=== PATIENT | female | born 1950 | race Caucasian/White ===

== ENCOUNTER 2016-08-08 12:51 | Outpatient (RCR) | payer BC ==
--- OUTSIDE RECORDS SUMMARY | 2016-05-27 14:20 | XMS REPORT | Continuity of Care Document ---
Author Author [facility] Organization [facility] Address Unknown Phone Unavailable Care Team Providers Care Ext Js Developer Name Role Phone YaAdolfo brown PCP [phone] Source Comments Some departments are not documenting in the electronic medical record. If you do not see the information that you expected, contact Release of Information in the Health Information Management department at [phone] for further assistance in locating additional records.[facility] Active Allergies and Adverse Reactions No Known Allergies Current Medications Prescription Sig. Disp. Refills Start End Date Status Date zolpidem CR(+) (AMBIEN Take 12.5 mg by mouth at Active CR) 12.5 mg tablet bedtime as needed. gabapentin (NEURONTIN) Take 1,800 mg by mouth Active 600 mg tablet three times daily. magnesium marcella/aluminum Take 1 Tab by mouth at Active hydroxide(+) (GAVISCON) bedtime daily. 20/80 mg chew solifenacin(+) (VESICARE) Take 10 mg by mouth at Active 10 mg tablet bedtime daily. estradiol (ESTRACE) 0.01 Insert or Apply to Active % (0.1 mg/g) vaginal vaginal area as Needed. cream acyclovir (ZOVIRAX) 5 % Apply to affected area Active topical ointment every 2 hours as needed. docusate (COLACE) 100 mg Take 1 Cap by mouth twice 180 Cap 3 01/28/20 Active capsule daily. 16 sucralfate (CARAFATE) 1 Take 1 Tab by mouth three 90 Tab 1 02/02/20 Active gram tablet times daily. 16 metFORMIN (GLUCOPHAGE) Take 1 Tab by mouth twice 60 Tab 1 02/02/20 Active 500 mg tablet daily with meals. 16 simvastatin (ZOCOR) 40 mg Take 1 Tab by mouth at 30 Tab 1 02/02/20 Active tablet bedtime daily. 16 pramipexole (MIRAPEX) Take 1 Tab by mouth twice 60 Tab 1 02/02/20 Active 0.125 mg tablet daily. 16 acyclovir (ZOVIRAX) 200 Take 1 Cap by mouth 30 Cap 1 02/02/20 Active mg capsule daily. 16 hydrochlorothiazide Take 1 Tab by mouth 30 Cap 1 02/02/20 Active (HYDRODIURIL) 25 mg daily. 16 tablet gabapentin (NEURONTIN) TAKE TWO TABLETS BY MOUTH 180 Tab 1 02/12/20 Active 600 mg tablet THREE TIMES A DAY 16 cephalexin (KEFLEX) 500 Take 4 capsules by mouth 20 Cap 3 02/14/20 Active mg capsule one hour before dental 16 procedure. Use remaining capsules for future dental procedures. oxyCODONE (ROXICODONE) 5 Take 1-2 Tabs by mouth 90 Tab 0 02/14/20 Active mg tablet every 4 hours as needed 16 for Pain HYDROcodone/acetaminophen Take 1 Tab by mouth every 90 Tab 0 03/05/20 Active (+) (NORCO) 10/325 mg 6 hours as needed for 16 tablet Pain oxyCODONE/acetaminophen Take 1-2 Tabs by mouth 50 Tab 0 04/10/20 Active (PERCOCET; ENDOCET; every 4 hours as needed 16 ROXICET) 5/325 mg tablet for Pain Earliest Fill Date: 04/10/16 Max 8 tabs/day diazepam (VALIUM) 5 mg Take 1 Tab by mouth every 30 Tab 1 04/10/20 Active tablet 6 hours as needed for 16 Anxiety. fentaNYL (DURAGESIC) 75 Apply 1 Patch to top of Active mcg/hr patch skin as directed every 72 hours oxyCODONE (ROXICODONE, Take 1 Tab by mouth every 50 Tab 0 05/08/20 Active OXY-IR) 5 mg tablet 4 hours as needed for 16 Pain Earliest Fill Date: 05/08/16 Active Problems Problem Noted Date S/P total knee arthroplasty 01/28/2016 Status post total right knee replacement 01/26/2016 Arthritis of knee, right 01/25/2016 Neck mass 05/30/2015 Bloating 05/02/2015 Pain, neuropathic 12/21/2013 S/P hernia repair 11/22/2013 Vocal cord edema 11/09/2013 Hyperfunctional dysphonia 11/09/2013 Laryngopharyngeal reflux 11/09/2013 Dysphagia, pharyngoesophageal phase 11/09/2013 Incisional hernia following transplant 09/21/2013 Dysphonia 01/25/2013 S/P partial thyroidectomy 01/04/2013 Thyroid mass 12/18/2012 Abdominal pain 10/06/2012 Gastritis 10/06/2012 Intestinal bacterial overgrowth 10/06/2012 Most Recent Encounters Date Type Specialty Providers Description 05/24/2016 Hospital Radiology Haresh Kathleen MD Arrived Encounter 05/24/2016 Office Visit Anesthesia Pain Haresh Kathleen MD Lumbar disc disease with radiculopathy (Primary Dx); Lumbar radicular pain 05/24/2016 Telephone Ophthalmology Oscar Pratt MD General Question 05/24/2016 Ancillary Anesthesia Pain Haresh Kathleen MD Lumbar radiculopathy Orders (Primary Dx) 05/24/2016 Ancillary Pain Management Haresh Kathleen MD Orders 05/24/2016 Ancillary Anesthesia Pain George Kathleen MD Lumbar radiculopathy Orders (Primary Dx) 05/24/2016 Ancillary Neurosurgery Benito Guillen MD Orders 05/08/2016 Office Visit Orthopedic Surgery Maricel Albrecht MD Status post total right knee replacement [Z96.651] (Primary Dx) 05/02/2016 [facility] Emergency Medicine David Price MD Encounter Nikhil Cleveland MD 04/10/2016 Office Visit Orthopedic Surgery Maricel Albrecht MD Status post total right knee replacement [Z96.651] (Primary Dx) 04/10/2016 Hospital Radiology Maricel Albrecht MD Encounter 04/04/2016 Orders Only Orthopedic Surgery Maricel Albrecht MD Status post total right knee replacement (Primary Dx) 03/13/2016 Telephone Gastroenterology Kumar Diggs MD Follow-up Phone Call 03/06/2016 Office Visit Orthopedic Surgery Maricel Albrecht MD Status post total right knee replacement [Z96.651] (Primary Dx) 03/06/2016 Hospital Radiology Maricel Albrecht MD Encounter 03/05/2016 Telephone Orthopedic Surgery Tatiana Tim PA-C General Question 02/29/2016 Orders Only Orthopedic Surgery Maricel Albrecht MD Status post total right knee replacement (Primary Dx) Social History Tobacco Use Types Packs/Day Years Used Date Former Smoker Cigarettes 0.25 1 Quit: 05/17/1972 Smokeless Tobacco: Never Used Tobacco Cessation: Counseling Given: Yes Comments: Alcohol Use Drinks/Week oz/Week Comments Yes "one-two drink a month" Last Filed Vital Signs Vital Sign Reading Time Taken Blood Pressure 100/67 05/24/2016 1:12 PM CDT Pulse 73 05/24/2016 10:24 AM CDT Temperature 36.7 C (98.1 F) 05/24/2016 10:24 AM CDT Respiratory Rate 18 05/24/2016 10:24 AM CDT Height 1.676 m (5' 6") 05/24/2016 10:24 AM CDT Weight 92.08 kg (203 lb) 05/24/2016 10:24 AM CDT Body Mass Index 32.78 05/24/2016 10:24 AM CDT Oxygen Saturation 95% 05/24/2016 1:12 PM CDT Plan of Care Date Type Specialty Providers Description 06/07/2016 Appointment Rehabilitation Medicine Letitia Hurt MD [address] [facility] [address] [place] [address] [phone] (Fax) 06/13/2016 Appointment Ophthalmology Oscar Pratt MD [address] [facility] [address] [place] [address] [phone] (Fax) 06/18/2016 Appointment Gastroenterology Kumar Diggs MD [address] [place] [address] [phone] (Fax) 08/14/2016 Appointment Orthopedic Surgery Maricel Albrecht MD [address] [facility] [address] [place] [address] [phone] (Fax) Health Maintenance Due Date Last Done Comments Hepatitis C Screening 1950 Pertussis Vaccine 1963 Tetanus Vaccine 1969 Shingles Vaccine 2012 Physical (Comprehensive) 07/09/2013 07/09/2012 (Previously completed) Exam Breast Cancer Screening 07/09/2014 07/09/2012 (Previously completed) Influenza Vaccine 04/25/2016 12/15/2012 (Declined) Colorectal Cancer 09/27/2025 09/27/2015, 09/27/2015 Screening Results from Last 3 Months FLUORO GUIDANCE FOR SPINE INJ RAD (05/24/2016 12:40 PM) Narrative This order has been auto finalized and does not contain a result. POC GLUCOSE (05/24/2016 12:18 PM) Component Value Range Glucose, POC 118 (H) 70-100 MG/DL US DOPPLER VENOUS W EXTRM RIGHT (05/02/2016 4:53 AM) Addenda Addendum by Tom Napoles MD on 05/02/2016 6:51 AM Finalized by Tom Napoles M.D. on 05/02/2016 5:03 AM. Dictated by Carmela Silva D.O. on 05/02/2016 4:50 AM.Addendum: Clinical history read: 66-year-old female presents to the emergency room with right lower extremity pain following knee replacement Approved by Carmela Silva D.O. on 05/02/2016 6:47 AM By my electronic signature, I attest that I have personally reviewed the images for this examination and formulated the interpretations and opinions expressed in this report Finalized by Tom Napoles M.D. on 05/02/2016 6:48 AM. Dictated by Carmela Silva D.O. on 05/02/2016 6:46 AM. Impressions No evidence of deep vein thrombosis in the right lower extremity. By my electronic signature, I attest that I have personally reviewed the images for this examination and formulated the interpretations and opinions expressed in this report Narrative Ultrasound Doppler of right lower extremity. HISTORY: TECHNIQUE: Multiple real-time grayscale sonographic images were obtained throughout the right lower extremity with additional color Doppler and duplex acquisitions to examine the deep venous systems. COMPARISON: No prior studies are available for comparison. FINDINGS: The right common femoral, femoral, saphenous, popliteal, and deep veins of the right lower extremity are widely patent, demonstrating normal compression on grayscale imaging, no filling defect on color Doppler imaging, and normal response to augmentation. There is no mass or fluid collection visualizedwithin the right lower extremity. Procedure Note Interface, Radiant Results - Rin May 02, 2016 6:51 AM CDT Ultrasound Doppler of right lower extremity. HISTORY: TECHNIQUE: Multiple real-time grayscale sonographic images were obtained throughout the right lower extremity with additional color Doppler and duplex acquisitions to examine the deep venous systems. COMPARISON: No prior studies are available for comparison. FINDINGS: The right common femoral, femoral, saphenous, popliteal, and deep veins of the right lower extremity are widely patent, demonstrating normal compression on grayscale imaging, no filling defect on color Doppler imaging, and normal response to augmentation. There is no mass or fluid collection visualized within the right lower extremity. IMPRESSION No evidence of deep vein thrombosis in the right lower extremity. By my electronic signature, I attest that I have personally reviewed the images for this examination and formulated the interpretations and opinions expressed in this report KNEE 3 VIEWS RIGHT (05/02/2016 3:10 AM)Only the most recent of 3 results within the time period is included. Impressions 1. Right total knee arthroplasty without periprosthetic fracture. 2. Mildly improved persistent small joint effusion. Approved by Carmela Silva D.O. on 05/02/2016 7:41 AM By my electronic signature, I attest that I have personally reviewed the images for this examination and formulated the interpretations and opinions expressed in this report Finalized by CHRISTOPHER KABA M.D. on 05/02/2016 9:52 AM. Dictated by Carmela Silva D.O. on 05/02/2016 6:50 AM. Narrative Right knee, four views Clinical history: 66-year-old female presents to the emergency room with right knee replacement and severe right knee pain Comparisons made to prior radiograph dated Apr 10, 2016 Findings: Satisfactory alignment of right total hip arthroplasty without evidence of periprosthetic fracture or hardware loosening. Resurfacing of the patella is noted with radiodense fragmentation of the superior pole, unchanged over multiple prior exams. No significant soft tissue swelling. There is a persistent , yet mildly improved, small suprapatellar joint effusion. Procedure Note Interface, Radiant Results - Rin May 02, 2016 9:55 AM CDT Right knee, four views Clinical history: 66-year-old female presents to the emergency room with right knee replacement and severe right knee pain Comparisons made to prior radiograph dated Apr 10, 2016 Findings: Satisfactory alignment of right total hip arthroplasty without evidence of periprosthetic fracture or hardware loosening. Resurfacing of the patella is noted with radiodense fragmentation of the superior pole, unchanged over multiple prior exams. No significant soft tissue swelling. There is a persistent , yet mildly improved, small suprapatellar joint effusion. IMPRESSION 1. Right total knee arthroplasty without periprosthetic fracture. 2. Mildly improved persistent small joint effusion. Approved by Carmela Silva D.O. on 05/02/2016 7:41 AM By my electronic signature, I attest that I have personally reviewed the images for this examination and formulated the interpretations and opinions expressed in this report Finalized by CHRISTOPHER KABA M.D. on 05/02/2016 9:52 AM. Dictated by Carmela Silva D.O. on 05/02/2016 6:50 AM. SED RATE (05/02/2016 3:01 AM) Component Value Range Sed Rate -ESR 10 0-30 MM/HR C REACTIVE PROTEIN (CRP) (05/02/2016 2:16 AM) Component Value Range C-Reactive Protein 0.58 <1.0 MG/DL Specimen Blood COMPREHENSIVE METABOLIC PANEL (05/02/2016 2:16 AM) Component Value Range Sodium 138 137-147 MMOL/L Potassium 3.8 3.5-5.1 MMOL/L Chloride 104 98-110 MMOL/L Glucose 116 (H) 70-100 MG/DL Blood Urea Nitrogen 15 7-25 MG/DL Creatinine 0.73 0.4-1.00 MG/DL Calcium 9.9 8.5-10.6 MG/DL Total Protein 6.9 6.0-8.0 G/DL Total Bilirubin 0.7 0.3-1.2 MG/DL Albumin 4.1 3.5-5.0 G/DL Alk Phosphatase 86 25-110 U/L AST (SGOT) 19 7-40 U/L CO2 22 21-30 MMOL/L ALT (SGPT) 16 7-56 U/L Anion Gap 12 3-12 eGFR Non >60Comment: >60 mL/min The eGFR is not validated for use in drug dosing adjustments. Continue to use estimated creatinine clearance per dosing reference text. Please contact the Clinical Pharmacist for questions. eGFR >60Comment: >60 mL/min The eGFR is not validated for use in drug dosing adjustments. Continue to use estimated creatinine clearance per dosing reference text. Please contact the Clinical Pharmacist for questions. Specimen Blood CBC AND DIFF (05/02/2016 2:16 AM) Component Value Range White Blood Cells 9.7 4.5-11.0 K/UL RBC 5.15 (H) 4.0-5.0 M/UL Hemoglobin 12.6 12.0-15.0 GM/DL Hematocrit 40.1 36-45 % MCV 77.9 (L) 80-100 FL MCH 24.4 (L) 26-34 PG MCHC 31.4 (L) 32.0-36.0 G/DL RDW 16.9 (H) 11-15 % Platelet Count 239 150-400 K/UL MPV 9.4 7-11 FL Neutrophils 59 41-77 % Lymphocytes 31 24-44 % Monocytes 6 4-12 % Eosinophils 3 0-5 % Basophils 1 0-2 % Absolute Neutrophil Count 5.80 1.8-7.0 K/UL Absolute Lymph Count 3.00 1.0-4.8 K/UL Absolute Monocyte Count 0.60 0-0.80 K/UL Absolute Eosinophil Count 0.30 0-0.45 K/UL Absolute Basophil Count 0.10 0-0.20 K/UL Specimen Blood
[~2016-08-08 12:51] MED LIST: ACC200C PO; ACYC-108 PO; ACYC200C PO; ACYC5CRE2 TOP; ALPR1TAB7 PO; ASPI325T32 PO; BENZ28CR TP; BISA5TAB8 PO; CIPR250T3 PO; CIPR500S2 PO; CITA20TA4 PO; CLAR-19 PO; CYCL1DRO OU; DCS100C PO; DICY20TA57 PO; DIFL5DRO OU; DIPH50CA33 PO; DULO30CA PO; ELUX100T PO; ESOM40CA52 PO; ESTR42.52 VG; FAMO-119 PO; FAMO20TA13 PO; FENT1PAT11 TD; FNT100TD TD; FNT75TD TD; GABA600T2 PO; HCT25T PO; HDR2A IV; HDR4T PO; HYDR-2890 PO; HYDR-3820 PO; HYDR25TA4 PO; HYDR4TAB PO; LANS30CA PO; LD5PT TOP; LEVO750T24 PO; LINA145C PO; LINA290C PO; LIPA1CAP PO; LNS30CCR PO; LORA0.5T PO; MAGN296S PO; MELO-195 PO; METF500T4 PO; METF500T8 PO; METH750T3 PO; METR500T21 PO; MG T1TAB2 PO; MINE3.5O4 OU; MTF500T PO; MTP50T PO; NF-DURA12P TD; ONDA4TAB11 PO; ONDA8TAB6 PO; ONDN4T PO; OXYC-464 PO; OXYC-465 PO; PANT40TA PO; PANT40TA3 PO; PNT40TEC PO; POLY119P5 PO; POLY17PO23 PO; PRAM0.128 PO; RIFA550T3 PO; SENN1TAB76 PO; SENN8.6T80 PO; SIMV40TA4 PO; SOLI10TA2 PO; SOLI5TAB4 PO; SUCR1TAB PO; TEMA30CA PO; TEMA7.5C PO; ZLP10T PO; ZLP5T PO; ZOLP10TA5 PO; ZOLP12.5 PO; ZOLP12.546 PO; [UNRECOGNIZED DRUG - CODE] MT; linaclotide PO
== END 2016-08-25 | disposition home or self-care (01) ==
PROVIDERS: ATTEND Orthopaedic Surgery
DX: Z47.1 Aftercare following joint replacement surgery (principal); Z96.651 Presence of right artificial knee joint

== ENCOUNTER → 2016-12-27 | Outpatient (CLI) | payer OTHER | LOC: RAD 15:30 | PROVIDERS: ATTEND Nurse Practitioner Family | DX: M25.561 Pain in right knee (principal) ==

== ENCOUNTER → 2016-12-30 | Outpatient (CLI) | payer OTHER ==
--- NOTE | 2016-12-30 15:01 | Diagnostic Imaging Report ---
EXAMINATION: Ultrasound of the right lower extremity in the right knee region. INDICATION: Lateral knee pain after total knee replacement performed one year prior to this exam. FINDINGS: The area of pain was scanned with no specific abnormality identified. No fluid collection is seen. IMPRESSION: No definite abnormality. Dictated by: Dictated on workstation # [id number]
== END ==
LOC: RAD 14:02
PROVIDERS: ATTEND Family Medicine
DX: M25.561 Pain in right knee (principal); G89.29 Other chronic pain
CPT/HCPCS: 76881

== ENCOUNTER 2017-01-22 11:26 | Outpatient (RCR) | payer OTHER ==
[2017-05-03] MEDS ORDERED: HYDR-3812 PO (13:25)
[2017-05-03] MEDS ORDERED: AMOX500T2 PO (13:25)
[2017-05-03] MEDS ORDERED: ONDA4TAB8 PO (13:25)
== END 2017-02-26 14:59 | disposition home or self-care (01) ==
PROVIDERS: ATTEND Specialist
DX: F44.4 Conversion disorder with motor symptom or deficit (principal)

== ENCOUNTER 2017-03-05 10:04 | Outpatient (RCR) | payer OTHER | END 2017-04-01 08:58 | disposition home or self-care (01) | PROVIDERS: ATTEND Orthopaedic Surgery | DX: M25.561 Pain in right knee (principal); Z96.651 Presence of right artificial knee joint; E11.9 Type 2 diabetes mellitus without complications ==

== ENCOUNTER → 2017-03-28 | Outpatient (CLI) | payer OTHER | LOC: LAB 19:27 | PROVIDERS: ATTEND Nurse Practitioner Family | DX: N30.01 Acute cystitis with hematuria (principal) | CPT/HCPCS: 87088 ==

== ENCOUNTER 2017-05-08 10:28 | Outpatient (RCR) | payer MEDICARE, OTHER ==
[~2017-05-08 10:28] MED LIST changes: +AMOX500T2 PO; +HYDR-3812 PO; +ONDA4TAB8 PO
== END 2017-05-24 | disposition home or self-care (01) ==
PROVIDERS: ATTEND Family Medicine
DX: Z96.651 Presence of right artificial knee joint; Z47.1 Aftercare following joint replacement surgery

== ENCOUNTER 2017-09-10 11:14 | Outpatient (RCR) | payer MEDICARE, OTHER ==
[~2017-09-10 11:14] MED LIST changes: +ACHD5005 PO; -HYDR-3812 PO
== END 2017-10-08 15:33 | disposition home or self-care (01) ==
PROVIDERS: ATTEND Urology
DX: R33.9 Retention of urine, unspecified (principal)

== ENCOUNTER → 2018-02-10 | Outpatient (CLI) | payer MEDICARE, OTHER ==
[~2018-02-10] MED LIST changes: -METF500T4 PO; +METF500T5 PO
--- NOTE | 2018-02-10 16:11 | Diagnostic Imaging Report ---
PROCEDURE: CT neck soft tissue without contrast. TECHNIQUE: Multiple contiguous axial images were obtained through the neck without the use of intravenous contrast. INDICATION: Shortness of air, difficulty swallowing and hoarseness. COMPARISON: No prior studies are available for comparison. FINDINGS: The visualized intracranial structures are unremarkable. Posterior nasopharynx and oropharynx are unremarkable. Parapharyngeal fat planes are preserved. The larynx is unremarkable. Left thyroid lobe appears to be surgically absent. Right thyroid lobe is unremarkable. No discrete mass is seen. The submandibular and parotid glands appear to be symmetric bilaterally. No definite cervical chain lymphadenopathy is seen. Visualized paranasal sinuses are clear. IMPRESSION: Unremarkable noncontrast CT of the soft tissues of the neck. No neck mass, fluid collection or lymphadenopathy is detected. Dictated by: Dictated on workstation # [id number]
--- NOTE | 2018-02-10 17:38 | Diagnostic Imaging Report ---
PROCEDURE: CT right lower extremity without contrast. TECHNIQUE: Axially acquired CT was obtained through the right lower extremity without intravenous contrast. Coronal and sagittal reformations were also performed. INDICATION: Right knee replacement in January 2015. Patient complains of pain and swelling to the right knee. FINDINGS: There are postop changes of right total knee arthroplasty. The prosthetic elements do produce significant beam hardening artifact, limiting evaluation. No definite fracture or loosening of the hardware is seen. Bony structures are intact. There is a moderate suprapatellar joint effusion detected. IMPRESSION: Joint effusion. Otherwise, unremarkable CT of the post-arthroplasty right knee. Dictated by: Dictated on workstation # [id number]
== END ==
LOC: RAD 02-09 08:28
PROVIDERS: ATTEND Family Medicine
DX: T84.89XA Other specified complication of internal orthopedic prosthetic devices, implants and grafts, initial encounter (principal); G47.37 Central sleep apnea in conditions classified elsewhere; R49.0 Dysphonia; R06.02 Shortness of breath; R13.10 Dysphagia, unspecified
CPT/HCPCS: 70490; 73700

== ENCOUNTER → 2018-02-26 | Outpatient (CLI) | payer MEDICARE, OTHER ==
[~2018-02-26] MED LIST changes: +INHA1INH59 MC; +RT-ALBUINH IH
--- NOTE | 2018-02-26 17:54 | Diagnostic Imaging Report ---
INDICATION: Cough and shortness of breath. COMPARISON: 02/11/2014. TECHNIQUE: Two views of the chest were obtained. FINDINGS: There is an old retained pacemaker lead in stable position. Lungs are clear. No pleural effusion or pneumothorax. Mild cardiomegaly is unchanged. Normal pulmonary vasculature. IMPRESSION: No acute cardiopulmonary process. Dictated by: Dictated on workstation # [id number]
== END ==
LOC: RAD 17:40
PROVIDERS: ATTEND Nurse Practitioner Family
DX: J20.9 Acute bronchitis, unspecified (principal)
CPT/HCPCS: 71046

== ENCOUNTER 2018-03-20 18:15 | Emergency (ER) | payer MEDICARE, OTHER ==
[~2018-03-20] VITALS: Ht 167.6 cm; Wt 101.6 kg
[~2018-03-20 18:15] MED LIST changes: -INHA1INH59 MC; -RT-ALBUINH IH
--- NOTE | 2018-03-20 18:53 | ED Respiratory ---
General Chief Complaint: Respiratory Problems Stated Complaint: SOB Nursing Triage Note: PATIENT STATES THAT SHE HAS BEEN SHORT OF BREATH FOR MONTHS. SOMETIMES SHE WHEEZES AND SOMETIMES SHE DOESNT. SHE HAS HAD TROUBLE GETTING AN APPT WITH A PRACTICE MANAGER IN [place] AND IS CURRENTLY NOT SCHEDULED UNTIL LATE MAY. SHE WEARS A CPAP AT HOME FOR SLEEP APNEA. OXYGEN SAT IS 97% ON ROOM AIR. Source: patient, spouse Exam Limitations: no limitations History of Present Illness Date Seen by Provider: Mar 20, 2018 Time Seen by Provider: 18:40 Initial Comments The patient presents to the ER by private conveyance with a chief complaint that she is having a worsening episode of her shortness of breath and wheezing. She denies any history of emphysema, asthma, sarcoidosis, lupus, interstitial pulmonary fibrosis etc. She's never smoked nor she exposed to passive smoke exposure. She says this started sometime in October and so she went to see the ER at and they told her to get set up to follow up with a inspector final assembly electrical. She called Dr. Cardenas's office and he set her up with a referral to pulmonology at June 17. The patient is not on any breathing treatments nor has she been on any steroids or antibiotics. She says she did have an x-ray done this morning as preop for an epidural back injection for her chronic back pain. She' s not having any cough, fevers, chills or rash. Allergies and Home Medications Allergies Coded Allergies: No Known Drug Allergies (Unverified , 02/11/14) Home Medications Acyclovir 5 Gm Cream.gm., TOP Q4H PRN for FEVER BLISTER, (Reported) Alprazolam 1 Mg Tablet, 1 MG PO HS, (Reported) Amoxicillin 500 Mg Tablet, 500 MG PO QID, (Reported) Aspirin 325 Mg Tablet.dr, 325 MG PO HS, (Reported) Cyclosporine 1 Each Droperette, 1 DROP OU BID, (Reported) Estradiol 42.5 Gm Cream.appl, 1 APPLIC VG DAILY PRN for DISCOMFORT, (Reported) Fentanyl 1 Each Patch.td72, 100 MCG TD Q72H Prescribed by: SERENA CARDENAS on 04/03/16 0723 Gabapentin 600 Mg Tablet, 1,800 MG PO BID, (Reported) TAKES 3 (600MG) TABLETS Hydrocodone Bit/Acetaminophen 1 Each Tablet, 1 EACH PO Q4H PRN for PAIN, ( Reported) Metformin HCl 500 Mg Tablet, 500 MG PO BID, (Reported) Mineral Oil/Petrolatum,White 3.5 Gm Oint...g., OU HS, (Reported) Ondansetron 4 Mg Tab.rapdis, 4-8 MG PO Q8H PRN for NAUSEA/VOMITING-1ST LINE, ( Reported) Oxycodone HCl/Acetaminophen 1 Each Tablet, 1 EACH PO BID Prescribed by: SERENA CARDENAS on 04/03/16 0724 Polyethylene Glycol 3350 119 Gm Powder, 17 GM PO DAILY PRN for CONSTIPATION, ( Reported) Pramipexole Di-HCl 0.125 Mg Tablet, 0.125 MG PO 1599,1999, (Reported) Simvastatin 40 Mg Tablet, 40 MG PO HS, (Reported) Solifenacin Succinate 10 Mg Tablet, 10 MG PO HS, (Reported) Sucralfate 1 Gm Tablet, 1 GM PO BID, (Reported) Zolpidem Tartrate 12.5 Mg Tab.mphase, 12.5 MG PO HS, (Reported) Patient Home Medication List Home Medication List Reviewed: Yes Review of Systems Constitutional: No chills, No fever, No malaise EENTM: No ear discharge, No ear pain Respiratory: No cough, No hemoptysis, No orthopnea, No phlegm; short of breath , wheezing Cardiovascular: No chest pain, No palpitations, No syncope Gastrointestinal: No abdominal pain, No constipation Genitourinary: No discharge, No dysuria : No Musculoskeletal: No back pain, No joint pain Skin: No pruritus, No rash Psychiatric/Neurological: Denies Headache, Denies Numbness Past Hqjynxj-Hkofru-Laxlez Hx Patient Social History Alcohol Use: Denies Use Recreational Drug Use: No Smoking Status: Former Smoker 2nd Hand Smoke Exposure: No Recent Foreign Travel: No Contact w/Someone Who Travel: No Recent Infectious Disease Expo: No Recent Hopitalizations: Yes (january 24 right knee replacement) Physical Abuse: No Sexual Abuse: No Immunizations Up To Date Tetanus Booster (TDap): More than 5yrs Date of Pneumonia Vaccine: Oct 04, 2011 Date of Influenza Vaccine: Jul 06, 2013 Seasonal Allergies Seasonal Allergies: No Past Medical History Surgeries: Yes (CHIARI MALFORMATION REPAIR. EGD'S AND COLONOSCOPIES--LAST ONES 1 MONTH AGO.) Abdominal Respiratory: Yes Pneumonia Cardiac: Yes Neurological: Yes (CHIARI MALFORMATION surgically fixed) Reproductive Disorders: No Female Reproductive Disorders: Denies Sexually Transmitted Disease: No HIV/AIDS: No Gastrointestinal: Yes ("COMPLETE ABD RECONSTRUCTION" 2010. CHRONIC ABDOMINAL PAIN) Chronic Constipation, Chronic Diarrhea Musculoskeletal: Yes (CHRONIC GENERALIZED PAIN--NARCOTIC DEPENDENT) Arthritis, Chronic Back Pain Endocrine: Yes (MASS LT THYROID REMOVED 01/01/2013) Cancer: No Psychosocial: No Nursing Suicide Risk Score: 0 Integumentary: No Blood Disorders: No Adverse Reaction/Blood Tranf: No Family Medical History Cancer 03 FATHER (PANCREATIC, PASSED AT 65 FROM THIS) Cataract 03 MOTHER Dementia 03 MOTHER Family history: Arthritis 03 MOTHER Family history: Cardiovascular disease 03 MOTHER (HIGH CHOLESTEROL, BALOON ARTERIES 2 TIMES) Hearing loss 03 MOTHER Hypercholesterolemia 03 MOTHER Cancer Physical Exam Vital Signs - First Documented 03/20/18 03/20/18 18:18 18:59 Temp 98.3 Pulse 87 Resp 24 B/P (MAP) 166/90 (115) Pulse Ox 96 O2 Delivery Room Air Capillary Refill : Less Than 3 Seconds Height: 5'6.00" Weight: 224lbs. 0oz. 101.873765jx; 34.7 BMI Method:Stated General Appearance: WD/WN, mild distress Eyes: Bilateral Eye Normal Inspection, Bilateral Eye PERRL, Bilateral Eye EOMI HEENT: PERRL/EOMI, normal ENT inspection, pharynx normal Neck: non-tender, normal inspection Respiratory: chest non-tender, no accessory muscle use, respiratory distress ( mild), wheezing, expiration Cardiovascular: normal peripheral pulses, regular rate, rhythm, no edema Gastrointestinal: non tender, soft Extremities: normal range of motion, no pedal edema, no calf tenderness, normal capillary refill Neurologic/Psychiatric: alert, normal mood/affect, oriented x 3 Skin: normal color, warm/dry Progress/Results/Core Measures Suspected Sepsis Recent Fever Within 48 Hours: No Infection Criteria Present: Suspected New Infection New/Unexplained Altered Menta: No Sepsis Screen: No Definite Risk SIRS Temperature:98.3 Pulse: 87 Respiratory Rate: 24 Laboratory Tests 03/20/18 19:18: White Blood Count 8.3 Blood Pressure 166 /90 Mean: 115 Laboratory Tests 03/20/18 19:18: Creatinine 0.90, Platelet Count 178, Total Bilirubin 0.8 Results/Orders Lab Results Laboratory Tests Test 03/20/18 19:18 Range/Units White Blood Count 8.3 4.3-11.0 10^3/uL Red Blood Count 4.57 4.35-5.85 10^6/uL Hemoglobin 11.4 L 11.5-16.0 G/DL Hematocrit 36 35-52 % Mean Corpuscular Volume 79 L 80-99 FL Mean Corpuscular Hemoglobin 25 25-34 PG Mean Corpuscular Hemoglobin Concent 32 32-36 G/DL Red Cell Distribution Width 16.8 H 10.0-14.5 % Platelet Count 178 130-400 10^3/uL Mean Platelet Volume 10.6 H 7.4-10.4 FL Neutrophils (%) (Auto) 58 42-75 % Lymphocytes (%) (Auto) 35 12-44 % Monocytes (%) (Auto) 5 0-12 % Eosinophils (%) (Auto) 2 0-10 % Basophils (%) (Auto) 0 0-10 % Neutrophils # (Auto) 4.8 1.8-7.8 X 10^3 Lymphocytes # (Auto) 2.9 1.0-4.0 X 10^3 Monocytes # (Auto) 0.4 0.0-1.0 X 10^3 Eosinophils # (Auto) 0.2 0.0-0.3 10^3/uL Basophils # (Auto) 0.0 0.0-0.1 10^3/uL D-Dimer 0.92 H 0.00-0.49 UG/ML Sodium Level 140 135-145 MMOL/L Potassium Level 4.4 3.6-5.0 MMOL/L Chloride Level 105 98-107 MMOL/L Carbon Dioxide Level 25 21-32 MMOL/L Anion Gap 10 5-14 MMOL/L Blood Urea Nitrogen 11 7-18 MG/DL Creatinine 0.90 0.60-1.30 MG/DL Estimat Glomerular Filtration Rate > 60 BUN/Creatinine Ratio 12 Glucose Level 200 H 70-105 MG/DL Calcium Level 9.4 8.5-10.1 MG/DL Total Bilirubin 0.8 0.1-1.0 MG/DL Aspartate Amino Transf (AST/SGOT) 21 5-34 U/L Alanine Aminotransferase (ALT/SGPT) 20 0-55 U/L Alkaline Phosphatase 86 40-136 U/L C-Reactive Protein High Sensitivity 2.39 H 0.00-0.50 MG/DL B-Type Natriuretic Peptide 26.9 <100.0 PG/ML Total Protein 5.6 L 6.4-8.2 GM/DL Albumin 3.6 3.2-4.5 GM/DL My Orders Orders - GABBIE AZUL Albuterol/Ipra Inhalation Soln (Duoneb I (03/20/18 19:00) Svn Small Volume Nebulizer (03/20/18 18:46) Chest Pa/Lat (2 View) (03/20/18 18:55) BNP (03/20/18 18:55) Cbc With Automated Diff (03/20/18 18:55) Comprehensive Metabolic Panel (03/20/18 18:55) Hs C Reactive Protein (03/20/18 18:55) Fibrin Degradation Products (03/20/18 18:55) Ct Angio Chest W (03/20/18 20:07) Saline Lock/Iv-Start (03/20/18 20:07) Ns Iv 1000 Ml (Sodium Chloride 0.9%) (03/20/18 20:07) Iohexol Injection (Omnipaque 350 Mg/Ml 1 (03/20/18 20:45) Sodium Chloride Flush (Catheter Flush Sy (03/20/18 20:45) Ns (Ivpb) (Sodium Chloride 0.9%) (03/20/18 20:45) Pharmacy Communication (Pharmacy Communi (03/20/18 20:34) Medications Given in ED Current Medications Medications Dose Ordered Sig/Leoise Route Start Time Stop Time Status Last Admin Dose Admin Albuterol/ Ipratropium 3 ml ONCE ONCE INH 03/20/18 19:00 03/20/18 19:01 DC 03/20/18 18:59 3 ML Iohexol 150 ml ONCE ONCE IV 03/20/18 20:45 03/20/18 20:46 DC 03/20/18 20:36 125 ML Sodium Chloride 10 ml NEEDED PRN IV 03/20/18 20:45 03/20/18 20:36 10 ML Sodium Chloride 250 ml ONCE ONCE IV 03/20/18 20:45 03/20/18 20:46 DC 03/20/18 20:36 80 ML Vital Signs/I&O 03/20/18 03/20/18 18:18 18:59 Temp 98.3 Pulse 87 Resp 24 B/P (MAP) 166/90 (115) Pulse Ox 96 O2 Delivery Room Air Capillary Refill : Less Than 3 Seconds Blood Pressure Mean: 115 Progress Note #1: Time: 18:53 Progress Note Patient has had MRI of her lumbar spine but no chest x-ray but I can see today. She did have a chest x-ray on February 26. We are going to repeat that as well as some basic labs. Since she's been laying in bed for the better part of the last 4 months I think would also be harkins to obtain a d-dimer for her mild to moderate risk of PE. She is not really having any chest pain and circling no productive cough so pneumonia seems fairly unlikely. Chest x-ray and some labs and help us rule out out. We'll give her breathing treatment as well. Progress Note #2: Time: 20:08 Progress Note The patient's wheezing as well as subjective breathing has improved after the breathing treatment however she says she's not completely feeling herself again yet. Her d-dimer is elevated at 0.9. We discussed the risks, benefits and alternatives to doing a CT angiogram and the reason why we direct given her 4 month history of laying in bed with shortness of breath. Pulmonary embolism is not high likelihood that could only be ruled out with CT angiogram tonight. She has consented to go ahead and get the test done. We'll give her a liter of saline and make sure she goes home with an albuterol inhaler. She is concerned because she like to get in with a inspector final assembly electrical sooner so we have encouraged her to talk to Dr. Cardenas, [facility] or care physician and see if she can get in with a different inspector final assembly electrical sooner. Diagnostic Imaging Diagonstic Imaging: Xray Plain Films/CT/US/NM/MRI: chest (2v) Comments NAME: ANA LUJAN MED REC#: [id number] PHYSICIAN: GABBIE AZUL MD CC: JACKIE HOOK; GABBIE AZUL Page 1 of 1 RADIOLOGY REPORT VIA [facility], [facility]. [place], [place] CC: JACKIE HOOK; GABBIE AZUL Page 1 of 1 RADIOLOGY REPORT NAME: ANA LUJAN MED REC#: [id number] PT STATUS: REG ER : 1950 PHYSICIAN: GABBIE AZUL MD ADMIT DATE: 03/20/18/ER Signed Date of Exam: 03/20/18 CHEST PA/LAT (2 VIEW) INDICATION: Wheezing, shortness of breath. COMPARISON: 02/26/18 FINDINGS: Single view of the chest demonstrates stable cardiac enlargement. The lungs are otherwise clear. Groshong catheter stable. There is no pneumothorax or effusion. Osseous structures are age-appropriate. IMPRESSION: Stable cardiac enlargement without pulmonary edema or infiltrate. Dictated by: Dictated on workstation # [id number] Dict: 03/20/181928 Trans: 03/20/181932 Interpreted by: JACKIE HOOK Electronically signed by: JACKIE HOOK 03/20/181932 Reviewed: Reviewed by Me Diagonstic Imaging: CT (angio) Plain Films/CT/US/NM/MRI: chest Comments NAME: TAI[facility]ACOBOANA [facility] REC#: [id number] PHYSICIAN: GABBIE AZUL MD CC: JACKIE HOOK; GABBIE AZUL Page 1 of 1 RADIOLOGY REPORT VIA [facility], [facility]. [place], [place] CC: JACKIE HOOK; GABBIE AZUL Page 1 of 1 RADIOLOGY REPORT NAME: TAIANA [facility] REC#: [id number] PT STATUS: REG ER : 1950 PHYSICIAN: GABBIE AZUL MD ADMIT DATE: 03/20/18/ER Signed Date of Exam: 03/20/18 CT ANGIO CHEST W PROCEDURE: CT angiography of the chest with contrast. TECHNIQUE: Multiple contiguous axial images were obtained through the chest after uneventful bolus administration of intravenous contrast. Reconstructed CTA MIP acquisitions were also performed. INDICATION: Shortness of breath COMPARISON: None FINDINGS: The heart size is normal. There is coronary artery disease present. There is no pericardial effusion. No lymphadenopathy is seen. Course and caliber of the aorta is normal. Pulmonary arteries are grossly unremarkable. There is no embolism. Lungs are clear. Osseous structures and visualized upper abdominal solid organs are normal. IMPRESSION: 1. No pulmonary embolism identified 2. Coronary artery disease. Dictated by: Dictated on workstation # [id number] Dict: 03/20/182044 Trans: 03/20/182049 Interpreted by: JACKIE HOOK Electronically signed by: JACKIE HOOK 03/20/182049 Reviewed: Reviewed by Me Departure Impression Primary Impression: Chronic bronchitis with acute exacerbation Disposition: HOME, SELF-CARE Condition: Improved Departure-Patient Inst. Decision time for Depature: 21:05 Referrals: KATHLEEN CARDENAS MD (PCP/Family) Primary Care Physician Patient Instructions: Chronic Bronchitis (DC) Add. Discharge Instructions: Keep your follow-up appointment with the inspector final assembly electrical. 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 All discharge instructions reviewed with patient and/or family. Voiced understanding. Scripts Inhaler, Assist Devices (E-Z Spacer) 1 Each Spacer EACH MC Q4H PRN for WHEEZING, #1 0 Refills Prov: GABBIE AZUL 03/20/18 Albuterol Sulfate (PROAIR HFA) 1 Puff Puff 2 PUFF IH Q4H PRN for DYSPNEA for 30 Days, #1 EACH 0 Refills 1 PUFF = 90 MCG Prov: GABBIE AZUL 03/20/18 GABBIE AZUL Mar 20, 2018 18:53
[2018-03-20] MEDS ORDERED: RT-ALBUTEROL/IPRATROPIUM 3 ML (DUONEB) VIAL INH ONE (19:00)
[2018-03-20 19:24] LABS: BASOPHILS % (AUTO) 0 % (0-10); EOSINOPHILS # (AUTO) 0.2 10^3/uL (0.0-0.3); EOSINOPHILS % (AUTO) 2 % (0-10); HEMATOCRIT 36 % (35-52); HEMOGLOBIN 11.4 G/DL (11.5-16.0); LYMPHOCYTES # (AUTO) 2.9 X 10^3 (1.0-4.0); LYMPHOCYTES % (AUTO) 35 % (12-44); MEAN CORPUSCULAR HEMOGLOBIN 25 PG (25-34); MEAN CORPUSCULAR HGB CONC 32 G/DL (32-36); MEAN CORPUSCULAR VOLUME 79 FL (80-99); MEAN PLATELET VOLUME 10.6 FL (7.4-10.4); MONOCYTES # (AUTO) 0.4 X 10^3 (0.0-1.0); MONOCYTES % (AUTO) 5 % (0-12); NEUTROPHILS # (AUTO) 4.8 X 10^3 (1.8-7.8); NEUTROPHILS % (AUTO) 58 % (42-75); PLATELET COUNT 178 10^3/uL (130-400); RED BLOOD COUNT 4.57 10^6/uL (4.35-5.85); RED CELL DISTRIBUTION WIDTH 16.8 % (10.0-14.5); WHITE BLOOD COUNT 8.3 10^3/uL (4.3-11.0)
--- NOTE | 2018-03-20 19:32 | Diagnostic Imaging Report ---
INDICATION: Wheezing, shortness of breath. COMPARISON: 02/26/18 FINDINGS: Single view of the chest demonstrates stable cardiac enlargement. The lungs are otherwise clear. Groshong catheter stable. There is no pneumothorax or effusion. Osseous structures are age-appropriate. IMPRESSION: Stable cardiac enlargement without pulmonary edema or infiltrate. Dictated by: Dictated on workstation # [id number]
--- OUTSIDE RECORDS SUMMARY | 2018-03-20 19:34 | XMS REPORT | Clinical Summary ---
Author Author [facility] Organization [facility] Address Unknown Phone Unavailable Care Team Providers Care Discharging Machine Operator Name Role Phone Judah Lopez RN Unavailable Unavailable Brett Alcantar MD Unavailable Kumar Diggs MD Unavailable Doctor, Miscellaneous Unavailable Unavailable Barbara Pelaez MD Unavailable Adolfo Cardenas MD PCP Fausto Hsu Unavailable Unavailable Nallely Gomez MD Unavailable Silvano Potts MD Unavailable Sarwat Lozano APRN Unavailable Unavailable Aileen Jacobson MD Unavailable Unavailable Leonid Santos MD Unavailable Unavailable Danitza Rios MA,CCC-COPY HOLDER Unavailable Unavailable Gela Cleary RN Unavailable Unavailable Hossein Minaya MD Unavailable Deonna Cunningham RN Unavailable Unavailable Anila Valencia RN Unavailable Unavailable Daniel Bond RN Unavailable Unavailable Yolette Moore MA,CCC-COPY HOLDER Unavailable Unavailable Bryan Romero Unavailable Unavailable Nallely Tracy MA,CCC-COPY HOLDER Unavailable Unavailable Haresh Kathleen MD Unavailable Teetee Taylor RN Unavailable Unavailable Bonnie Goss RN Unavailable Unavailable Maricel Albrecht MD Unavailable Kiarra Patrick RN Unavailable Unavailable Evelio Chris RN 2 Unavailable Todd Avendano MD Unavailable Tatiana Tim PA-C Unavailable Source Comments Some departments are not documenting in the electronic medical record. If you do not see the information that you expected, contact Release of Information in the Health Information Management department at [phone] for further assistance in locating additional records.[facility] Allergies No Known Allergies Current Medications Prescription Sig. Disp. Refills Start End Date Status Date zolpidem CR(+) (AMBIEN Take 12.5 mg by mouth at Active CR) 12.5 mg tablet bedtime as needed. gabapentin (NEURONTIN) Take 600 mg by mouth Active 600 mg tablet daily. magnesium marcella/aluminum Take 1 Tab by mouth at Active hydroxide(+) (GAVISCON) bedtime daily. 20/80 mg chew metFORMIN (GLUCOPHAGE) Take 1 Tab by mouth twice 60 Tab 1 02/02/20 Active 500 mg tablet daily with meals. 16 pramipexole (MIRAPEX) Take 1 Tab by mouth twice 60 Tab 1 02/02/20 Active 0.125 mg tablet daily. 16 acyclovir (ZOVIRAX) 200 Take 1 Cap by mouth 30 Cap 1 02/02/20 Active mg capsule daily. 16 ondansetron (ZOFRAN) 4 mg Take 4 mg by mouth every Active tablet 8 hours as needed for Nausea or Vomiting. estradiol (ESTRACE) 0.01 Insert or Apply to 42.5 g 11 05/05/20 Active % (0.1 mg/g) vaginal vaginal area three times 17 creamIndications: Urinary weekly. Apply at bedtime. retention simvastatin (ZOCOR) 40 mg Take 40 mg by mouth at Active tablet bedtime daily. citalopram (CELEXA) 10 mg Take 10 mg by mouth Active tablet daily. aspirin 325 mg tablet Take 325 mg by mouth Active daily. Take with food. diphenoxylate/atropine Take 1 tablet by mouth 30 tablet 1 11/18/19 Active (LOMOTIL) 2.5/0.025 mg four times daily as 18 tablet needed for Diarrhea. pantoprazole DR Take 1 tablet by mouth 30 tablet 3 11/18/19 Active (PROTONIX) 40 mg tablet daily. 18 mirabegron(+) ER Take 1 tablet by mouth 30 tablet 03/10/20 Active (MYRBETRIQ) 50 mg daily. 18 tabletIndications: Incomplete bladder emptying mirabegron(+) ER Take 1 tablet by mouth 30 tablet 07/24/20 Discontin (MYRBETRIQ) 50 mg daily. 17 18 ued tabletIndications: Incomplete bladder emptying Active Problems Problem Noted Date Shortness of breath 03/11/2018 Last Assessment & Plan: Patient is complaining of persistent shortness of breath for the last 6 months as well as fatigue. She is noticed her heart rate is much higher (approximately 15 points) compared to baseline. She is frustrated because she has been unable to get an appointment with pulmonary at . She is concerned that there is something going on with her heart. I have reviewed her previous data. She did have a CT scan done in October which documented possible bronchiolitis. Otherwise, she had an echocardiogram done in the emergency room which was grossly normal. At this point, I would like to do a formal echocardiogram to assess LV function and look for significant valvular heart disease to explain her symptoms. She has not had a stress test in some time. I have asked her to undergo direct adenosine thallium stress testing. Finally, we are going to order 24-hour Holter monitor to get a better idea of her heart rate ranges. I suspect that her relative tachycardia is secondary to some other stressor. We will try and get her an appointment with pulmonary in the near future because I believe that her symptoms are pulmonary in nature. Abdominal bloating 11/18/2017 Overview: Added automatically from request for surgery [id number] Gastroesophageal reflux disease 11/18/2017 Overview: Added automatically from request for surgery [id number] Diarrhea 11/18/2017 Overview: Added automatically from request for surgery [id number] Incomplete bladder emptying 05/06/2017 Overview: - Increased difficulty voiding and feeling inc emptying - Voids q2h - urgency, MACIEL UDS (07/14/17): sensory urgency, +DO, +LPP, small capacity, emptying and dysfunctional voiding Mirabegron, PFRT-> almost all symptoms resolved Last Assessment & Plan: - restart mirabegron - PFRT - rtc prn Vaginal atrophy 05/06/2017 Last Assessment & Plan: See above Pseudophakia of both eyes 06/13/2016 Visual field defect 06/13/2016 S/P total knee arthroplasty 01/28/2016 Status post [...] 10/06/2012 Gastritis 10/06/2012 Intestinal bacterial overgrowth 10/06/2012 Encounters Date Type Specialty Care Team Description 03/17/2018 Orders Only Pulmonology Chetan Hunter MD SOB (shortness of breath) (Primary Dx) 03/17/2018 Telephone Anesthesia Pain Haresh Kathleen MD Post Procedure 03/11/2018 [facility] Cardiology Stefanie Milton MD Encounter 03/11/2018 Office Visit Cardiology Stefanie Milton MD New Patient ( Went to ED in October) 03/11/2018 Documentation Cardiology Francesca Marinelli 03/10/2018 Telephone Urology Surekha Winters MD Medication Follow- up 02/20/2018 Patient Profile Cardiology Erin Paulino New Patient 01/14/2018 Hospital Kumar Diggs MD Abdominal bloating Encounter 01/14/2018 Anesthesia Kym Rousseau CRNA Event 01/14/2018 Procedure Pass 01/14/2018 Surgery Kumar Diggs MD ESOPHAGOGASTRODUODENOSCOP Y from Last 3 Months Family History Medical History Relation Name Comments Cancer Father Pancreatic High Cholesterol Father Hypertension Father Cancer Maternal bone Grandfather Cancer Mother Dementia Mother High Cholesterol Mother Hip Fracture Mother Hypertension Mother Osteoporosis Mother Cancer Paternal Aunt Heart problem Paternal Aunt Cancer Paternal Uncle Heart problem Paternal Uncle Aneurysm Sister Amblyopia Neg Hx Autoimmune Disease Neg Hx Blindness Neg Hx Cataract Neg Hx Coronary Artery Disease Neg Hx Diabetes Neg Hx Glaucoma Neg Hx Macular Degen Neg Hx Neurologic Disorder Neg Hx Retinal Detachment Neg Hx Strabismus Neg Hx Thyroid Disease Neg Hx Relation Name Status Comments Brother hit by car (Age 9) Daughter Alive Father (Age 65) Maternal Grandfather (Age 87) Maternal Grandmother Mother (Age 90) Paternal Aunt Paternal Grandfather Paternal Grandmother Paternal Uncle Sister (Age 36) Son Alive Son Alive Social History Tobacco Use Types Packs/Day Years Used Date Former Smoker Cigarettes 0.25 1 Quit: 05/17/1972 Smokeless Tobacco: Never Used Tobacco Cessation: Counseling Given: Yes Alcohol Use Drinks/Week oz/Week Comments Yes 0 Standard 0.0 ~1x/mo drinks or equivalent Sex Assigned at Date Recorded Not on file Last Filed Vital Signs Vital Sign Reading Time Taken Blood Pressure 128/74 03/11/2018 1:05 PM CDT Pulse 88 03/11/2018 1:05 PM CDT Temperature 37.1 C (98.8 F) 01/14/2018 1:38 PM CDT Respiratory Rate 16 01/14/2017 1:03 PM CDT Oxygen Saturation 96% 01/14/2018 2:30 PM CDT Inhaled Oxygen - - Concentration Weight 103.9 kg (229 lb) 03/11/2018 1:05 PM CDT Height 167.6 cm (5' 6") 03/11/2018 1:05 PM CDT Body Mass Index 36.96 03/11/2018 1:05 PM CDT Plan of Treatment Health Maintenance Due Date Last Done Comments HEPATITIS C SCREENING 1950 PERTUSSIS VACCINE 1963 HIV SCREENING 1967 TETANUS VACCINE 1969 SHINGLES RECOMBINANT 2002 VACCINE (1 of 2) BREAST CANCER SCREENING 07/09/2013 07/09/2012 (Previously completed) PHYSICAL (COMPREHENSIVE) 07/09/2013 07/09/2012 (Previously completed) EXAM OSTEOPOROSIS SCREENING 2017 PNEUMONIA (PCV13/PPSV23) 2017 VACCINES (1 of 2 - PCV13) INFLUENZA VACCINE 05/25/2018 07/17/2013, 12/15/2012 (Declined) COLORECTAL CANCER 09/27/2025 09/27/2015, 09/27/2015 SCREENING Implants Implanted Type Area Residential Real Estate Agent Device Expiration Model / Identifier Date Serial / Lot Cement Bone Smartset Gentamicin Right: J and J 10/22/2017 [id number] 40gm High Viscosity Knee [employer]: / Implanted: Qty: 2 on 01/25/2016 by [employer] [id number] / Maricel Albrecht MD [id number] Tray Tibial Sigma 2.5 Knee Cocr Right: AugdJ:DEPUY:DEP 11/22/2025 [id number] Cemented Modular Knee [employer] / Implanted: Qty: 1 on 01/25/2016 by [id number] / Maricel Albrecht MD [id number] Dome Patellar 38mm Pfc Sigma Small Right: AugdJ:DEPUY:DEP 11/22/2020 [id number] / Oval Knee Uhmwpe 3 Peg Knee [employer] [id number] / Implanted: Qty: 1 on 01/25/2016 by [id number] Maricel Albrecht MD Component Femoral 2.5 Knee Right Right: AugdJ:DEPUY:DEP 08/24/2025 [id number] Cemented Posterior Knee [employer] / Implanted: Qty: 1 on 01/25/2016 by [id number] / Maricel Albrecht MD [id number] Insert Tibial 2.5 10mm Knee Gvf Right: AugdJ:DEPUY:DEP 07/24/2020 [id number] Stabilize Sigma Knee [employer] / Implanted: Qty: 1 on 01/25/2016 by [id number] Maricel Albrecht MD / [id number] Procedures Procedure Name Priority Date/Time Associated Diagnosis Comments TELEMETRY STRIPS-SCAN 01/15/2018 Results for this 12:33 PM CDT procedure are in the results section. COLONOSCOPY BIOPSY 01/14/2018 Abdominal bloating 1:45 PM CDT Special Needs 3 day - Reminder Call - spoke with pt., 01/09/18 @ 0907 ()4th Call - EGD / Flex Sig - Cld pt & scheduled appt 12/10/17 @ 1:03 pm ()Pt Lvms, returned my call 12/10/17 @ 10:01 am ()3rd Call - EGD / Flex Sig - Cld pt, phone just rings, then says a nswer off & hangs up 12/09/17 @ 12:22 pm / Cld pts cell # & Lvms 12/09/17 @ 12:23 pm ()2nd Call - EGD / Flex Sig - Cld pt, phone just rings, then says answer off & hangs up 11/27/17 @ 2:40 pm ()1st Call - EGD / Flex Sig - Cld pt, phone just rings, th en hangs up 11/18/17 @ 12:37 pm () / Tried 2 times INJECTION THERAPEUTIC 01/14/2018 Abdominal bloating AGENT 1:45 PM CDT Special Needs 3 day - Reminder Call - spoke with pt., 01/09/18 @ 0907 ()4th Call - EGD / Flex Sig - Cld pt & scheduled appt 12/10/17 @ 1:03 pm ()Pt Lvms, returned my call 12/10/17 @ 10:01 am ()3rd Call - EGD / Flex Sig - Cld pt, phone just rings, then says a nswer off & hangs up 12/09/17 @ 12:22 pm / Cld pts cell # & Lvms 12/09/17 @ 12:23 pm ()2nd Call - EGD / Flex Sig - Cld pt, phone just rings, then says answer off & hangs up 11/27/17 @ 2:40 pm ()1st Call - EGD / Flex Sig - Cld pt, phone just rings, th en hangs up 11/18/17 @ 12:37 pm () / Tried 2 times ESOPHAGOGASTRODUODENOSCOP 01/14/2018 Abdominal bloating Y BIOPSY 1:45 PM CDT Special Needs 3 day - Reminder Call - spoke with pt., 01/09/18 @ 0907 ()4th Call - EGD / Flex Sig - Cld pt & scheduled appt 12/10/17 @ 1:03 pm ()Pt Lvms, returned my call 12/10/17 @ 10:01 am ()3rd Call - EGD / Flex Sig - Cld pt, phone just rings, then says a nswer off & hangs up 12/09/17 @ 12:22 pm / Cld pts cell # & Lvms 12/09/17 @ 12:23 pm ()2nd Call - EGD / Flex Sig - Cld pt, phone just rings, then says answer off & hangs up 11/27/17 @ 2:40 pm ()1st Call - EGD / Flex Sig - Cld pt, phone just rings, th en hangs up 11/18/17 @ 12:37 pm () / Tried 2 times SIGMOIDOSCOPY DIAGNOSTIC 01/14/2018 Abdominal bloating 1:45 PM CDT Special Needs 3 day - Reminder Call - spoke with pt., 01/09/18 @ 0907 ()4th Call - EGD / Flex Sig - Cld pt & scheduled appt 12/10/17 @ 1:03 pm ()Pt Lvms, returned my call 12/10/17 @ 10:01 am ()3rd Call - EGD / Flex Sig - Cld pt, phone just rings, then says a nswer off & hangs up 12/09/17 @ 12:22 pm / Cld pts cell # & Lvms 12/09/17 @ 12:23 pm ()2nd Call - EGD / Flex Sig - Cld pt, phone just rings, then says answer off & hangs up 11/27/17 @ 2:40 pm ()1st Call - EGD / Flex Sig - Cld pt, phone just rings, th en hangs up 11/18/17 @ 12:37 pm () / Tried 2 times ESOPHAGOGASTRODUODENOSCOP 01/14/2018 Abdominal bloating Y 1:45 PM CDT Special Needs 3 day - Reminder Call - spoke with pt., 01/09/18 @ 0907 ()4th Call - EGD / Flex Sig - Cld pt & scheduled appt 12/10/17 @ 1:03 pm ()Pt Lvms, returned my call 12/10/17 @ 10:01 am ()3rd Call - EGD / Flex Sig - Cld pt, phone just rings, then says a nswer off & hangs up 12/09/17 @ 12:22 pm / Cld pts cell # & Lvms 12/09/17 @ 12:23 pm ()2nd Call - EGD / Flex Sig - Cld pt, phone just rings, then says answer off & hangs up 11/27/17 @ 2:40 pm ()1st Call - EGD / Flex Sig - Cld pt, phone just rings, th en hangs up 11/18/17 @ 12:37 pm () / Tried 2 times from Last 3 Months Results * TELEMETRY STRIPS-SCAN (01/15/2018 12:33 PM) Narrative Performed At Ordered by an unspecified provider. * SURGICAL PATHOLOGY (01/14/2018 2:25 PM) PATHOLOGY REPORT [facility] [employer] [facility] [email or web address] Department of Pathology and Laboratory Medicine [address] [place] [address] Surgical Pathology Office:[phone] :[phone] SURGICAL PATHOLOGY REPORT NAME: MICKI KELLEY SURG PATH #: [id number] MR #: [id number] SPECIMEN CLASS: SR BILLING #: [id number] ALT ID #:LOCATION: [id number] DATE OF PROCEDURE: 01/14/2018 AGE:67 SEX: F DATE RECEIVED: 01/14/2018 : 1950TIME RECEIVED:14:25 PHYSICIAN:KUMAR TIPTON DATE OF REPORT: 01/16/2018 COPY TO:DATE OF PRINTIN01/16/2018 ############################## ############################## ############ Final Diagnosis: A. Duodenal mucosa, "small bowel biopsy r/o celiac": No diagnostic abnormalities. B. Colonic mucosa, "random colon biopsy r/o colitis": No diagnostic abnormalities. Attestation: By this signature, I attest that I have personally formulated the final interpretation expressed in this report and that the above diagnosis is based upon my examination of the slides and/or other material indicated in this report. +++ +++ Nancy Ramirez MD Resident rl/01/15/2018 ############################## ############################## ############ Material Received: A: small bowel biopsy r/o celiac B: random colon biopsy r/o colitis History: 67-year-old female with a history of abdominal bloating, gastroesophageal reflux disease, esophagitis presents not specified, diarrhea, unspecified type. A. Rule out celiac. B. Rule out colitis. Gross Description: A.Received in formalin labeled "small bowel biopsy, rule out celiac" is a 1.2 x 0.4 x 0.2 cm aggregate of zamora-brown soft tissue fragments. The specimen is entirely submitted in cassette A1.(lmt) B.Received in formalin labeled "random colon biopsy, rule out colitis" is a 1.6 x 0.3 x 0.2 cm aggregate of zamora-brown soft tissue fragments. The specimen is entirely submitted in cassette B1.(lmt) lt/01/14/2018 Performing Organization Address City/State/Zipcode Phone Number LAB RESULTS * POC GLUCOSE (01/14/2018 12:58 PM) Glucose, POC 146 (H) 70 - 100 MG/DL MAIN LAB Performing Organization Address City[facility] Phone Number [facility] LAB [address] [place] [address] * EGD REPORT (01/14/2018 12:54 PM) Provation Report Patient Name: Allie MCDONALD OTHER RESULTS Procedure Date: 01/14/2018 12:54 PM CSN: [id number] Date of : 1950 Gender: Female Attending Physician: Kumar Diggs MD Procedure: Upper GI endoscopy Indications: Dysphagia Providers: Kumar Diggs MD (Doctor), Greer Argueta RN (Nurse), Lisa Iverson RN (Nurse), Aileen Lucas, Register Of Wills (Register Of Wills) Referring Physician: Adlofo Cardenas Medications: Monitored Anesthesia Care Complications: No immediate complications. Procedure: Pre-Anesthesia Assessment: - Prior to the procedure, a History and Physical was performed, and patient medications and allergies were reviewed. The patient's tolerance of previous anesthesia was also reviewed. The risks and benefits of the procedure and the sedation options and risks were discussed with the patient. All questions were answered, and informed consent was obtained. Prior Anticoagulants: The patient has taken aspirin. ASA Grade Assessment: III - A patient with severe systemic disease. After reviewing the risks and benefits, the patient was deemed in satisfactory condition to undergo the procedure. After obtaining informed consent, the endoscope was passed under direct vision. Throughout the procedure, the patient's blood pressure, pulse, and oxygen saturations were monitored continuously. The Endoscope [id number] was introduced through the mouth, and advanced to the third part of duodenum. The upper GI endoscopy was accomplished without difficulty. The patient tolerated the procedure well. Findings: Esophagogastric landmarks were identified: the gastroesophageal junction was found at 40 cm from the incisors. The examined esophagus was normal. The area at the lower esophageal sphincter was successfully injected with 100 units botulinum toxin (divided into four quadrants). The entire examined stomach was normal. The examined duodenum was normal. Biopsies for histology were taken with a cold forceps for evaluation of celiac disease. Impression: - Esophagogastric landmarks identified. - Normal esophagus. - LES injected with 100 U Botox - Normal stomach. - Normal examined duodenum. Biopsied. Estimated Blood Loss: Estimated blood loss was minimal. Recommendation: - Patient has a contact number available for emergencies. The signs and symptoms of potential delayed complications were discussed with the patient. Return to normal activities tomorrow. Written discharge instructions were provided to the patient. - Resume previous diet. - Continue present medications. - Await pathology results. - Monitor response to therapy. Scope In: 1:18:09 PM Scope Out: 1:23:23 PM Total Procedure Duration Time 0 hours 5 minutes 14 seconds Procedure Code(s): --- Professional --- 19960, Esophagogastroduodenoscopy, flexible, transoral; with biopsy, single or multiple 40527, 59, Esophagogastroduodenoscopy, flexible, transoral; with directed submucosal injection(s), any substance Diagnosis Code(s): --- Professional --- R13.10, Dysphagia, unspecified CPT copyright 2016 [employer]. All rights reserved. The codes documented in this report are preliminary and upon visiting housekeeper review may be revised to meet current compliance requirements. Attending Participation: I personally performed the entire procedure. MD Kumar Clark MD 01/14/2018 1:37:00 PM The attending physician has electronically signed and finalized this document. Number of Addenda: 0 Note Initiated On: 01/14/2018 12:54 PM Performing Organization Address City/State/Zipcode Phone Number [facility] OTHER RESULTS * FLEXIBLE SIGMOIDOSCOPY (01/14/2018 12:54 PM) Provation Report Patient Name: Allie MCDONALD OTHER RESULTS Procedure Date: 01/14/2018 12:54 PM [facility]: [id number] Date of : 1950 Gender: Female Attending Physician: Kumar Diggs MD Procedure: Flexible Sigmoidoscopy Indications: Diarrhea Providers: Kumar Diggs MD (Doctor), Greer Argueta RN (Nurse), Lisa Iverson RN (Nurse), Aileen Lucas, Register Of Wills (Register Of Wills) Referring Physician: Adolfo Cardenas Medications: Monitored Anesthesia Care Complications: No immediate complications. Procedure: Pre-Anesthesia Assessment: - Prior to the procedure, a History and Physical was performed, and patient medications and allergies were reviewed. The patient's tolerance of previous anesthesia was also reviewed. The risks and benefits of the procedure and the sedation options and risks were discussed with the patient. All questions were answered, and informed consent was obtained. Prior Anticoagulants: The patient has taken aspirin, last dose was 5 days prior to procedure. ASA Grade Assessment: III - A patient with severe systemic disease. After reviewing the risks and benefits, the patient was deemed in satisfactory condition to undergo the procedure. After obtaining informed consent, the endoscope was passed under direct vision. Throughout the procedure, the patient's blood pressure, pulse, and oxygen saturations were monitored continuously. The Pediatric Colonoscope [id number] was introduced through the anus and advanced to the splenic flexure. The flexible sigmoidoscopy was accomplished without difficulty. The patient tolerated the procedure well. The quality of the bowel preparation was good. Findings: The perianal and digital rectal examinations were normal. A few small-mouthed diverticula were found in the sigmoid colon. Non-bleeding external hemorrhoids were found during retroflexion. The exam was otherwise without abnormality. Biopsies for histology were taken with a cold forceps from the left colon and transverse colon for evaluation of microscopic colitis. Impression: - Diverticulosis in the sigmoid colon. - Non-bleeding external hemorrhoids. - The examination was otherwise normal. - Biopsies were taken with a cold forceps from the left colon and transverse colon for evaluation of microscopic colitis. Estimated Blood Loss: Estimated blood loss was minimal. Recommendation: - Patient has a contact number available for emergencies. The signs and symptoms of potential delayed complications were discussed with the patient. Return to normal activities tomorrow. Written discharge instructions were provided to the patient. - Continue present medications. - Resume previous diet. - Await pathology results. Scope In: 1:29:18 PM Scope Out: 1:34:37 PM Total Procedure Duration Time 0 hours 5 minutes 19 seconds Procedure Code(s): --- Professional --- 06151, Sigmoidoscopy, flexible; with biopsy, single or multiple Diagnosis Code(s): --- Professional --- R19.7, Diarrhea, unspecified K57.30, Diverticulosis of large intestine without perforation or abscess without bleeding K64.4, Residual hemorrhoidal skin tags CPT copyright 2016 [employer]. All rights reserved. The codes documented in this report are preliminary and upon visiting housekeeper review may be revised to meet current compliance requirements. Attending Participation: I personally performed the entire procedure. I was present and participated during the entire procedure, including non-azul portions. MD Kumar Calrk MD 01/14/2018 1:41:20 PM The attending physician has electronically signed and finalized this document. Number of Addenda: 0 Note Initiated On: 01/14/2018 12:54 PM Performing Organization Address City/State/Zipcode Phone Number [facility] OTHER RESULTS from Last 3 Months
--- OUTSIDE RECORDS SUMMARY | 2018-03-20 19:34 | XMS REPORT | Encounter Summary ---
Author Author [facility] Organization [facility] Address Unknown Phone Unavailable Care Team Providers Care Front End Application Developer Name Role Phone Judah Lopez RN Unavailable Unavailable Brett Alcantar MD Unavailable Kumar Diggs MD Unavailable Doctor, Miscellaneous Unavailable Unavailable Barbara Pelaez MD Unavailable Adolfo Cardenas MD PCP Fausto Hsu Unavailable Unavailable Nallely Gomez MD Unavailable Silvano Potts MD Unavailable Sarwat Lozano APRN Unavailable Unavailable Aileen Jacobson MD Unavailable Unavailable Leonid Santos MD Unavailable Unavailable Danitza Rios MA,CCC-AIRLINE STEWARDESS Unavailable Unavailable Gela Cleary RN Unavailable Unavailable Hossein Minaya MD Unavailable Deonna Cunningham RN Unavailable Unavailable Anila Valencia RN Unavailable Unavailable Daniel Bond RN Unavailable Unavailable Yolette Moore MA,CCC-AIRLINE STEWARDESS Unavailable Unavailable Bryan Romero Unavailable Unavailable Nallely Tracy MA,CCC-AIRLINE STEWARDESS Unavailable Unavailable Haresh Kathleen MD Unavailable Teetee Taylor RN Unavailable Unavailable Bonnie Goss RN Unavailable Unavailable Maricel Albrecht MD Unavailable Kiarra Patrick RN Unavailable Unavailable Evelio Chris RN 2 Unavailable Todd Avendano MD Unavailable Tatiana Tim PA-C Unavailable Reason for Referral * Pain Authorization Status Reason Specialty Diagnoses / Referred By Referred To Procedures Contact Contact No Auth Needed Anesthesia Pain Diagnoses Haresh Kathleen, [facility] Pain Proc Sciatica of MD Ruiz Velasco MD right side [address] [facility] [address] rocedures [address] [place], [place] [address] INJECT [id number] Phone: SNRB/TFESI LUMBAR/SACRAL [phone] Reason for Visit * Reason Comments Post Procedure Encounter Details Date Type Department Care Team Description 03/17/2018 Telephone Spine Center Anesthesia Haresh Kathleen MD Post Procedure Pain Procedure [address] Ruiz Velasco MD [facility] [address] [place] [address] [phone] [place] [address] [phone] Social History Tobacco Use Types Packs/Day Years Used Date Former Smoker Cigarettes 0.25 1 Quit: 05/17/1972 Smokeless Tobacco: Never Used Alcohol Use Drinks/Week oz/Week Comments Yes 0 Standard 0.0 ~1x/mo drinks or equivalent Sex Assigned at Date Recorded Not on file as of this encounter Functional Status Functional Status Response Date of Assessment Does the patient have a hearing impairment: No 10/26/2017 Does the patient have a visual impairment: Yes 02/18/2017 Does the patient have impaired ambulation: Yes 02/18/2017 Does the patient have an activity of daily living No 02/18/2017 (ADL) impairment: Does the patient have an instrumental activity of No 02/18/2017 daily living (IADL) impairment: Cognitive Status Response Date of Assessment Does the patient have a cognitive impairment: No 02/18/2017 as of this encounter Miscellaneous Notes * Telephone Encounter - Daniel Mirza RN - 03/17/2018 9:17 AM CDT More than 80% relief for over 12 months from Right L4 TFE, wants to repeat as recc by Dr Everett in this encounter Plan of Treatment Name Priority Associated Diagnoses Order Schedule KU AMB SPINE INJECT SNRB/TFESI Routine Sciatica of right side 3 Occurrences starting LUMBAR/SACRAL 03/17/2018 until 06/15/2018 as of this encounter Visit Diagnoses Diagnosis Sciatica of right side - Primary Sciatica
--- OUTSIDE RECORDS SUMMARY | 2018-03-20 19:34 | XMS REPORT | Encounter Summary ---
Author Author [facility] Organization [facility] Address Unknown Phone Unavailable Care Team Providers Care Coupler Name Role Phone Judah Lopez RN Unavailable Unavailable Brett Alcantar MD Unavailable Kumar Diggs MD Unavailable Doctor, Miscellaneous Unavailable Unavailable Barbara Pelaez MD Unavailable Adolfo Cardenas MD PCP Fausto Hsu Unavailable Unavailable Nallely Gomez MD Unavailable Silvano Potts MD Unavailable Sarwat Lozano APRN Unavailable Unavailable Aileen Jacobson MD Unavailable Unavailable Leonid Santos MD Unavailable Unavailable Danitza Rios MA,CCC-RECOVERY OPERATOR HELPER Unavailable Unavailable Gela Cleary RN Unavailable Unavailable Hossein Minaya MD Unavailable Deonna Cunningham RN Unavailable Unavailable Anila Valencia RN Unavailable Unavailable Daniel Bond RN Unavailable Unavailable Yolette Moore MA,CCC-RECOVERY OPERATOR HELPER Unavailable Unavailable Bryan Romero Unavailable Unavailable Nallely Tracy MA,CCC-RECOVERY OPERATOR HELPER Unavailable Unavailable Haresh Kathleen MD Unavailable Teetee Taylor RN Unavailable Unavailable Bonnie Goss RN Unavailable Unavailable Maricel Albrecht MD Unavailable Kiarra Patrick RN Unavailable Unavailable Evelio Chris RN 2 Unavailable Todd Avendano MD Unavailable Tatiana Tim PA-C Unavailable Reason for Referral * Consult, Test & Treat Status Reason Specialty Diagnoses / Referred By Referred To Procedures Contact Contact New Request Specialty Diagnoses Chetan Hunter, Pulmonary Function Services SOB (shortness MD Sebas Morales Filipe Required of breath) [address] [place] [address] Phone: Encounter Details Date Type Department Care Team Description 03/17/2018 Orders Only [facility] Chetan Hunter MD SOB ( shortness of breath) Physicians - Internal [address] (Primary Dx) Medicine [address] [place] [address] Pavilion Level 5A [phone] [place] [address] Social History Tobacco Use Types Packs/Day Years [...] impairment: No 02/18/2017 as of this encounter Plan of Treatment Name Priority Associated Diagnoses Order Schedule CHEST 2 VIEWS Routine SOB (shortness of breath) Expected: 03/17/2018 (Approximate), Expires: 03/17/2019 Name Priority Associated Diagnoses Order Schedule AMB REFERRAL TO PULMONARY FUNCTION LAB Routine SOB (shortness of breath) Ordered: 03/17/2018 as of this encounter Visit Diagnoses Diagnosis SOB (shortness of breath) - Primary Shortness of breath
--- OUTSIDE RECORDS SUMMARY | 2018-03-20 19:35 | XMS REPORT | Encounter Summary ---
Author Author [facility] Organization [facility] Address Unknown Phone Unavailable Care Team Providers Care Unix Architect Name Role Phone Judah Lopez RN Unavailable Unavailable Brett Alcantar MD Unavailable Kumar Diggs MD Unavailable Doctor, Miscellaneous Unavailable Unavailable Barbara Pelaez MD Unavailable Adolfo Cardenas MD PCP Fausto Hsu Unavailable Unavailable Nallely Gomez MD Unavailable Silvano Potts MD Unavailable Sarwat Lozano APRN Unavailable Unavailable Aileen Jacobson MD Unavailable Unavailable Leonid Santos MD Unavailable Unavailable Danitza Rios MA,CCC-STAINLESS STEEL FINISHER Unavailable Unavailable Gela Cleary RN Unavailable Unavailable Hossein Minaya MD Unavailable Deonna Cunningham RN Unavailable Unavailable Anila Valencia RN Unavailable Unavailable Daniel Bond RN Unavailable Unavailable Yolette Moore MA,CCC-STAINLESS STEEL FINISHER Unavailable Unavailable Bryan Romero Unavailable Unavailable Nallely Tracy MA,CCC-STAINLESS STEEL FINISHER Unavailable Unavailable Haresh Kathleen MD Unavailable Teetee Taylor RN Unavailable Unavailable Bonnie Goss RN Unavailable Unavailable Maricel Albrecht MD Unavailable Kiarra Patrick RN Unavailable Unavailable Evelio Chris RN 2 Unavailable Todd Avendano MD Unavailable Tatiana Tim PA-C Unavailable Reason for Referral * Consult, Test & Treat Status Reason Specialty Diagnoses / Referred By Referred To Procedures Contact Contact No Auth Needed Cardiology Diagnoses Stefanie Milton Bhg Card Echopv Palpitations MD Christiano [facility] SOB (shelby [id number] [place], [place] [address] [place] [address] Phone: STRESS TEST CHG MYOCARDIAL [phone] SPECT MULTIPLE Fax: STUDIES [phone] * Consult, Test & Treat Status Reason Specialty Diagnoses / Referred By Referred To Procedures Contact Contact New Request Specialty Pulmonology Diagnoses Stefanie Milton [facility] SOB (shelby Alvarado MD Ortho and Medical Required of breath) [address] [place] [address] Phone: * Test Status Reason Specialty Diagnoses / Referred By Referred To Procedures Contact Contact No Auth Needed Cardiology Diagnoses Stefanie Milton Bhg Card Echopv Palpitations MD Christiano [facility] [id number] 2-D + DOPPLER [address] [place], [place] [address] NE ECHO [facility] [address] Phone: R-T 2D W/WOM-MODE COMPL [phone] SPEC&COLR D * Status Reason Specialty Diagnoses / Referred By Referred To Procedures Contact Contact New Request Procedures Stefanie Milton REQUEST FOR MD Christiano CARDIOLOGY [address] [place] [address] * Consult, Test & Treat Status Reason Specialty Diagnoses / Referred By Referred To Procedures Contact Contact New Request Diagnoses Stefanie Milton Palpitations MD Christiano [address] HOLTER WEARABLE [address] ECG MONITOR [place], [place] CONNECT + SCAN [address] Reason for Visit * Reason Comments New Patient Went to ED in October Encounter Details Date Type Department Care Team Description 03/11/2018 [address] [facility] Cardiology Stefanie Milton MD New Patient (Went to ED [place] [address] in October) [address] [place] [address] [place] [address] [phone] Social History Tobacco Use Types Packs/Day Years Used Date Former Smoker Cigarettes 0.25 1 Quit: 05/17/1972 Smokeless Tobacco: Never Used Alcohol Use Drinks/Week oz/Week Comments Yes 0 Standard 0.0 ~1x/mo drinks or equivalent Sex Assigned at Date Recorded Not on file as of this encounter Last Filed Vital Signs Vital Sign Reading Time Taken Blood Pressure 128/74 03/11/2018 1:05 PM CDT Pulse 88 03/11/2018 1:05 PM CDT Temperature - - Respiratory Rate - - Oxygen Saturation - - Inhaled Oxygen - - Concentration Weight 103.9 kg (229 lb) 03/11/2018 1:05 PM CDT Height 167.6 cm (5' 6") 03/11/2018 1:05 PM CDT Body Mass Index 36.96 03/11/2018 1:05 PM CDT in this encounter Functional Status Functional Status Response [...] impairment: No 02/18/2017 as of this encounter Instructions * Patient Instructions - Lisa Rodriguez RN - 03/11/2018 1:00 PM CDT A referral has been placed to Pulmonary. Please contact our office if you have not been called for an appointment in two weeks. A holter has been placed today. Please schedule an ECHO and 6-[address] week follow up with [address]. Milton. In order to provide you the best care possible we ask that you follow up as below: Please consider signing up for mychart. For all questions, please call the nursing triage voicemail at [phone] Friday - Friday 8- only. Please leave a detailed message with your name, date of , and reason for your call. To schedule an appointment, please call [phone]. Please allow ~ 10 business days for the results of any testing to be reviewed. Please call our office if you have not heard from a nurse within this time frame in this encounter Progress Notes * Stefanie Milton MD - 03/11/2018 1:00 PM CDT Formatting of this note may be different from the original. Date of Service: 03/11/2018 Micki Kelley is a 67 y.o. female. HPI Micki Kelley presents to my office today in electrophysiology evaluation for shortness of breath and palpitations. As you know, she is an unfortunate 67- year-old female with a past medical history of gastroesophageal reflux disease, gastritis with intestinal bacterial overgrowth, status post thyroidectomy in the past, osteoarthritis status post total knee arthroscopy who is in my office today for further evaluation. Patient tells me that her symptoms first started in October. She had the sudden onset of heart pounding and racing. It lasted all day. She ended up going to the emergency room for further evaluation. An echocardiogram was done through the emergency room which documents normal LV function. She also had a CT scan done of the chest which showed no evidence of pulmonary emboli. There was some note made of possible bronchiolitis. She was eventually discharged home in stable condition. Since that time, she has noticed that her heart rate has been running faster. It is typically 60-70 bpm. It is now between 88 and 95 bpm. She is tired all the time. She can barely do anything. She also complains of shortness of breath persistently. She is wearing her CPAP machine 20 hours a day because she feels like it helps her to breathe. The patient has been waiting for an appointment with pulmonary since October 2017. About a month ago, she had a four- week bout of salmonella associated with diarrhea. She would have 18-22 watery stools a day. She is still recovering from this. The patient has happens to be the of 1 of my other patients. Vitals: 03/11/18 1305 BP: 128/74 Pulse: 88 Weight: 103.9 kg (229 lb) Height: 1.676 m (5' 6") Body mass index is 36.96 kg/m. Past Medical History Patient Active Problem List Diagnosis Date Noted Shortness of breath 03/11/2018 Abdominal bloating 11/18/2017 Added automatically from request for surgery [id number] Gastroesophageal reflux disease 11/18/2017 Added automatically from request for surgery [id number] Diarrhea 11/18/2017 Added automatically from request for surgery [id number] Incomplete bladder emptying 05/06/2017 - Increased difficulty voiding and feeling inc emptying - Voids q2h - urgency, MACIEL UDS (07/14/17): sensory urgency, +DO, +LPP, small capacity, emptying and dysfunctional voiding Mirabegron, PFRT-> almost all symptoms resolved Vaginal atrophy 05/06/2017 Pseudophakia of both eyes 06/13/2016 Visual field [...] 10/06/2012 Gastritis 10/06/2012 Intestinal bacterial overgrowth 10/06/2012 Review of Systems Constitution: Negative. HENT: Negative. Eyes: Negative. Cardiovascular: Positive for dyspnea on exertion, orthopnea and paroxysmal nocturnal dyspnea. Respiratory: Positive for cough, shortness of breath and sleep disturbances due to breathing. Endocrine: Negative. Hematologic/Lymphatic: Negative. Skin: Negative. Musculoskeletal: Negative. Gastrointestinal: Negative. Genitourinary: Negative. Neurological: Negative. Psychiatric/Behavioral: Negative. Allergic/Immunologic: Negative. Physical Exam General Appearance: overweight, well nourished in no acute distress Skin: warm, moist, no ulcers HEENT: extraocular movements intact, oropharynx clear Neck Veins: neck veins are flat, neck veins are not distended Carotid Arteries: normal carotid upstroke bilaterally, no bruits Chest Inspection: chest is normal in appearance Auscultation/Percussion: lungs clear to auscultation, no rales, rhonchi, or wheezing Cardiac Rhythm: regular rhythm and normal rate Cardiac Auscultation: Normal S1 & S2, no S3 or S4, no rub Murmurs: no cardiac murmurs Extremities: no lower extremity edema; 1+ symmetric distal pulses Abdominal Exam: soft, non-tender, no masses, bowel sounds normal Liver & Spleen: no organomegaly Neurologic Exam: neurological assessment grossly intact Cardiovascular Studies 12 lead EKG: Sinus rhythm, ventricular rate 88 bpm ,QTc 426 msec Problems Addressed Today Encounter Diagnoses Name Primary? SOB (shortness of breath) Yes Palpitations Shortness of breath Assessment and Plan Shortness of breath Patient is complaining of persistent shortness of breath for the last 6 months as well as fatigue. She is noticed her heart rate is much higher ( approximately 15 points) compared to baseline. She is [...] that her symptoms are pulmonary in nature. I have asked the patient to follow up with me in 2 months. Current Medications (including today's revisions) acyclovir (ZOVIRAX) 200 mg capsule Take 1 Cap by mouth daily. aspirin 325 mg tablet Take 325 mg by mouth daily. Take with food. citalopram (CELEXA) 10 mg tablet Take 10 mg by mouth daily. diphenoxylate/atropine (LOMOTIL) 2.5/0.025 mg tablet Take 1 tablet by mouth four times daily as needed for Diarrhea. estradiol (ESTRACE) 0.01 % (0.1 mg/g) vaginal cream Insert or Apply to vaginal area three times weekly. Apply at bedtime. gabapentin (NEURONTIN) 600 mg tablet Take 600 mg by mouth daily. magnesium marcella/aluminum hydroxide(+) (GAVISCON) 20/80 mg chew Take 1 Tab by mouth at bedtime daily. metFORMIN (GLUCOPHAGE) 500 mg tablet Take 1 Tab by mouth twice daily with meals. (Patient taking differently: Take 1,000 mg by mouth twice daily with meals.) mirabegron(+) ER (MYRBETRIQ) 50 mg tablet Take 1 tablet by mouth daily. ondansetron (ZOFRAN) 4 mg tablet Take 4 mg by mouth every 8 hours as needed for Nausea or Vomiting. pantoprazole DR (PROTONIX) 40 mg tablet Take 1 tablet by mouth daily. pramipexole (MIRAPEX) 0.125 mg tablet Take 1 Tab by mouth twice daily. ( Patient taking differently: Take 1 mg by mouth twice daily.) simvastatin (ZOCOR) 40 mg tablet Take 40 mg by mouth at bedtime daily. zolpidem CR(+) (AMBIEN CR) 12.5 mg tablet Take 12.5 mg by mouth at bedtime as needed. in this encounter Miscellaneous Notes * Assessment & Plan Note - Stefanie Milton MD - 03/11/2018 6:46 PM CDT Associated Problem(s): Shortness of breath Patient is complaining of persistent shortness of breath for the last 6 months as well as fatigue. She is noticed her heart rate is much higher ( approximately 15 points) compared to baseline. She is [...] that her symptoms are pulmonary in nature. in this encounter Plan of Treatment Name Priority Associated Diagnoses Date/Time HOLTER WEARABLE ECG MONITOR CONNECT + Routine Palpitations 03/17/2018 10 :44 AM CDT SCAN Name Priority Associated Diagnoses Order Schedule 2-D + DOPPLER ECHOCARDIOGRAM Routine Palpitations Expected: 03/11/2018 (Approximate), Expires: 03/11/2019 [place] [facility] STRESS TEST Routine Palpitations Expected: 03/11/2018, SOB (shortness of breath) Expires: 03/11/2019 Name Priority Associated Diagnoses Order Schedule AMB REFERRAL TO PULMONARY Routine SOB (shortness of breath) Ordered: as of this encounter Visit Diagnoses Diagnosis SOB (shortness of breath) - Primary Shortness of breath Palpitations Shortness of breath
--- OUTSIDE RECORDS SUMMARY | 2018-03-20 19:35 | XMS REPORT | Encounter Summary ---
Author Author [facility] Organization [facility] Address Unknown Phone Unavailable Care Team Providers Care Correctional Classification Counselor Name Role Phone Judah Lopez RN Unavailable Unavailable Brett Alcantar MD Unavailable Kumar Diggs MD Unavailable Doctor, Miscellaneous Unavailable Unavailable Barbara Pelaez MD Unavailable Adolfo Cardenas MD PCP Fausto Hsu Unavailable Unavailable Nallely Gomez MD Unavailable Silvano Potts MD Unavailable Sarwat Lozano APRN Unavailable Unavailable Aileen Jacobson MD Unavailable Unavailable Leonid Santos MD Unavailable Unavailable Danitza Rios MA,CCC-QUALITY ASSURANCE TEST PROGRAM MANAGER Unavailable Unavailable Gela Cleary RN Unavailable Unavailable Hossein Minaya MD Unavailable Deonna Cunningham RN Unavailable Unavailable Anila Valencia RN Unavailable Unavailable Daniel Bond RN Unavailable Unavailable Yolette Moore MA,CCC-QUALITY ASSURANCE TEST PROGRAM MANAGER Unavailable Unavailable Bryan Romero Unavailable Unavailable Nallely Tracy MA,CCC-QUALITY ASSURANCE TEST PROGRAM MANAGER Unavailable Unavailable Haresh Kathleen MD Unavailable Teetee Taylor RN Unavailable Unavailable Bonnie Goss RN Unavailable Unavailable Maricel Albrecht MD Unavailable Kiarra Patrick RN Unavailable Unavailable Evelio Chris RN 2 Unavailable Todd Avendano MD Unavailable Tatiana Tim PA-C Unavailable Encounter Details Date Type Department Care Team Description 03/11/2018 Documentation [facility] Francesca Marinelli [facility] [place] [address] Social History Tobacco Use Types Packs/Day Years [...] impairment: No 02/18/2017 as of this encounter Progress Notes * Francesca Marinelli - 03/11/2018 2:08 PM CDT Ordering physician: Dr. Yoan Reardon Number: [id number] Card Number: [id number] Hours: 24 hr Dx: Palpitations in this encounter Plan of Treatment Not on fileas of this encounter Visit Diagnoses Not on filein this encounter
--- OUTSIDE RECORDS SUMMARY | 2018-03-20 19:35 | XMS REPORT | Encounter Summary ---
Author Author [facility] Organization [facility] Address Unknown Phone Unavailable Care Team Providers Care Residential Direct Support Professional Name Role Phone Judah Lopez RN Unavailable Unavailable Brett Alcantar MD Unavailable Kumar Diggs MD Unavailable Doctor, Miscellaneous Unavailable Unavailable Barbara Pelaez MD Unavailable Adolfo Cardenas MD PCP Fausto Hsu Unavailable Unavailable Nallely Gomez MD Unavailable Silvano Potts MD Unavailable Sarwat Lozano APRN Unavailable Unavailable Aileen Jacobson MD Unavailable Unavailable Leonid Santos MD Unavailable Unavailable Danitza Rios MA,CCC-DAYCARE TEACHER Unavailable Unavailable Gela Cleary RN Unavailable Unavailable Hossein Minaya MD Unavailable Deonna Cunningham RN Unavailable Unavailable Anila Valencia RN Unavailable Unavailable Daniel Bond RN Unavailable Unavailable Yolette Moore MA,CCC-DAYCARE TEACHER Unavailable Unavailable Bryan Romero Unavailable Unavailable Nallely Tracy MA,CCC-DAYCARE TEACHER Unavailable Unavailable Haresh Kathleen MD Unavailable Teetee Taylor RN Unavailable Unavailable Bonnie Goss RN Unavailable Unavailable Maricel Albrecht MD Unavailable Kiarra Patrick RN Unavailable Unavailable Evelio Chris RN 2 Unavailable Todd Avendano MD Unavailable Tatiana Tim PA-C Unavailable Reason for Visit * Auth/Cert Status Reason Specialty Diagnoses / Referred By Referred To Procedures Contact Contact Diagnoses Abdominal bloating Gastroesophageal reflux disease, esophagitis presence not specified Diarrhea, unspecified type Abdominal bloating [R14.0] Gastroesophageal reflux disease, esophagitis presence not specified [K21.9] Diarrhea, unspecified type [R19.7] P rocedures NC SIGMOIDOSCOPY FLX DX W/COLLJ SPEC BR/WA IF PFRMD FLEXIBLE SIGMOIDOSCOPY UPPER GASTROINTESTINAL ENDOSCOPY ESOPHAGOGASTRODU ODENOSCOPY SIGMOIDOSCOPY DIAGNOSTIC Encounter Details Date Type Department Care Team Description 01/14/2018 Anesthesia Gastrointenstinal Kym Rousseau CRNA Event Endoscopy [address] [place] [address] [place] [address] [phone] Anesthesia Record Procedure Name Responsible Anesthesia Start Time Anesthesia Stop Time Anesthesiologist ESOPHAGOGASTRODUODENOSCOP Danitza Urban MD 01/14/18 1312 1338 Y (N/A ) Date Time Event Comment 1257 AN Equip Check 2017 1312 Anes Start 1312 An Start Data 1313 Start Supplemental O2 1313 Out of Pre Procedure 1314 Anesthesia Ready 1314 In Room 1318 Proc Start 1337 an stop data 1338 Handoff to RN I completed my SBAR handoff to the receiving nurse. 1338 An Stop Meds Name Total propofol (DIPRIVAN) 200 mg/ 20 mL 200 mg injection (VIAL) propofol (DIPRIVAN) infusion 175.5 mg sodium chloride 0.9 % infusion 200 mL * Name O2 N2O Inspired N2O * No blood administrations on file. Type Details Placement Removal Portacath Prehospital IV; Powerport; Blood Return 11/22/13 1030 by Wounds 01/25/16; 1234; RT; Knee; Surgical 01/25/16 1234 by [place], (NOT for Incision; xeroform, abd, 4x4's, soft Parvin, GERARDO Pressure roll, rolan Injuries) in this encounter Social History Tobacco Use Types Packs/Day Years [...] impairment: No 02/18/2017 as of this encounter OR Notes * Anesthesia Postprocedure Evaluation - Danitaz Urban MD - 01/14/2018 2:24 PM CDT Post-Anesthesia Evaluation Name: Micki Kelley : 1950 Age: 67 y.o. Sex: female Procedure Date: 01/14/2018 Procedure: Procedure(s): ESOPHAGOGASTRODUODENOSCOPY SIGMOIDOSCOPY DIAGNOSTIC ESOPHAGOGASTRODUODENOSCOPY BIOPSY INJECTION THERAPEUTIC AGENT COLONOSCOPY BIOPSY Surgeon: Surgeon(s): Kumar Diggs MD Post-Anesthesia Vitals BP: (145-174)/(64-99) Temp: [37.1 C (98.8 F)] Pulse: [67-77] Respirations: [14 PER MINUTE-23 PER MINUTE] SpO2: [91 %-95 %] O2 Delivery: None (Room Air) (01/14 1415) SpO2 Pulse: [66-77] Post Anesthesia Evaluation Note Evaluation location: pre/post Patient participation: recovered; patient participated in evaluation Level of consciousness: alert Pain score: 2 Pain management: adequate Hydration: normovolemia Temperature: 36.0C - 38.4C Airway patency: adequate Perioperative Events Perioperative events: no Postoperative Status Cardiovascular status: hemodynamically stable Respiratory status: spontaneous ventilation Perioperative Events Perioperative Event: No Emergency Case Activation: No * Anesthesia Preprocedure Evaluation - Danitza Urban MD - 01/14/2018 12 :28 PM CDT Formatting of this note may be different from the original. Anesthesia Pre-Procedure Evaluation Name: Micki Kelley : 1950 Age: 67 y.o. Sex: female Procedure Date: 01/14/18 Procedure: EGD/Colonoscopy Physical Assessment Vital Signs (last filed in past 24 hours): Patient History No Known Allergies Current Medications Medication Directions acyclovir (ZOVIRAX) 200 mg capsule Take 1 [...] tablet Take 600 mg by mouth daily. linaclotide(+) (LINZESS) 145 mcg cap capsule Take 145 mcg by mouth daily 30 minutes before breakfast. magnesium marcella/aluminum hydroxide(+) (GAVISCON) 20/80 mg chew Take 1 Tab by mouth at bedtime daily. metFORMIN (GLUCOPHAGE) 500 mg tablet Take 1 Tab by mouth twice daily with meals. Patient taking differently: Take 1,000 mg by mouth twice daily with meals. mirabegron(+) ER (MYRBETRIQ) 50 mg tablet Take 1 tablet by mouth daily. ondansetron (ZOFRAN) 4 mg tablet Take 4 mg by mouth every 8 hours as needed for Nausea or Vomiting. pantoprazole DR (PROTONIX) 40 mg tablet Take 1 tablet by mouth daily. pramipexole (MIRAPEX) 0.125 mg tablet Take 1 Tab by mouth twice daily. Patient taking differently: Take 1 mg by mouth twice daily. simvastatin (ZOCOR) 40 mg tablet Take 40 mg by mouth at bedtime daily. zolpidem CR(+) (AMBIEN CR) 12.5 mg tablet Take 12.5 mg by mouth at bedtime as needed. Scheduled Meds:Continuous Infusions: PRN and Respiratory Meds: Review of Systems/Medical History Patient summary reviewed Nursing notes reviewed Pertinent labs reviewed PONV Screening: Female gender No history of anesthetic complications No family history of anesthetic complications Airway - negative Pulmonary - negative Cardiovascular Recent diagnostic studies: ECG Exercise tolerance: >4 METS Beta Jayne therapy: No Hypertension: on HCTZ. Hyperlipidemia GI/Hepatic/Renal GERD (previous diagnosis, prescription for nexium, h/o hoarseness felt 2/2 GERD, pt. DCd takes occasional gaviscon), Salmonella recently, rx'd with antibiotics Abdominal bloating Esophagitis Multiple abdominal surgeries Neuro/Psych Neuromuscular disease (Chiari 1 malformation, s/p repair) H/o craniotomy for chiari malformation Musculoskeletal Arthritis Chronic pain rt knee, rates it 03/03 Endocrine/Other Diabetes, well controlled, type 2 Obesity Physical Exam Airway Findings Mallampati: II TM distance: >3 FB Neck ROM: full Mouth opening: good Airway patency: adequate Comments: No previous problems with intubation. Had h/o hoarseness, was previously followed by Dr. Gomez. Prescribed nexium, no longer takes. Dental Findings: Negative Comments: crowns, denies any loose teeth Cardiovascular Findings: Rhythm: regular Pulmonary Findings: Breath sounds clear to auscultation. Abdominal Findings: Obese Comments: deferred Neurological Findings: Comments: Alert and oriented Diagnostic Tests Hematology: Lab Results Component Value Date HGB 12.0 10/26/2017 HCT 35.7 10/26/2017 PLTCT 202 10/26/2017 WBC 12.8 10/26/2017 NEUT 62 10/26/2017 ANC 7.90 10/26/2017 ALC 3.80 10/26/2017 DIANA 5 10/26/2017 AMC 0.60 10/26/2017 EOSA 2 10/26/2017 ABC 0.10 10/26/2017 MCV 79.5 10/26/2017 MCH 26.7 10/26/2017 MCHC 33.6 10/26/2017 MPV 9.3 10/26/2017 RDW 15.5 10/26/2017 General Chemistry: Lab Results Component Value Date NA 139 10/26/2017 K 4.0 10/26/2017 CL 105 10/26/2017 CO2 22 10/26/2017 GAP 12 10/26/2017 BUN 16 10/26/2017 CR 0.71 10/26/2017 GLU 136 10/26/2017 CA 9.3 10/26/2017 ALBUMIN 3.6 10/26/2017 MG 1.7 10/26/2017 TOTBILI 0.5 10/26/2017 PO4 3.9 11/26/2013 Coagulation: Lab Results Component Value Date PTT 26.8 10/26/2017 INR 0.9 10/26/2017 Anesthesia Plan ASA score: 3 Plan: MAC Induction method: intravenous NPO status: acceptable Informed Consent Anesthetic plan and risks discussed with patient. Use of blood products discussed with patient; consented to blood products. Plan discussed with: SHANK SORTER and anesthesiologist. in this encounter Plan of Treatment Not on fileas of this encounter Visit Diagnoses Not on filein this encounter Administered Medications Medication Order MAR Action Action Date Dose Rate Site propofol (DIPRIVAN) infusion Given - New 01/14/2018 120 70.2 mL/hr 20 mL, Intravenous, INTRA-PROCEDURE Bag 13:21 CDT mcg/kg/min MED(CONT), Starting Fri01/14/18 at 1321, Until Fri01/14/18 at 1341, Anesthesia Intra-op Dose/Rate Change 01/14/2018 140 81.9 mL/hr 13:29 CDT mcg/kg/min propofol (DIPRIVAN) injection Given 01/14/2018 50 mg INTRA-PROCEDURE MED, Starting Fri 13:18 CDT 01/14/18 at 1316, Until Fri01/14/18 at 1341, Anesthesia Intra-op Given 01/14/2018 50 mg 13:20 CDT Given 01/14/2018 50 mg 13:21 CDT in this encounter
--- OUTSIDE RECORDS SUMMARY | 2018-03-20 19:35 | XMS REPORT | Encounter Summary ---
Author Author [facility] Organization [facility] Address Unknown Phone Unavailable Care Team Providers Care Local Operator Name Role Phone Judah Lopez RN Unavailable Unavailable Brett Alcantar MD Unavailable Kumar Diggs MD Unavailable Doctor, Miscellaneous Unavailable Unavailable Barbara Pelaez MD Unavailable Adolfo Cardenas MD PCP Fausto Hsu Unavailable Unavailable Nallely Gomez MD Unavailable Silvano Potts MD Unavailable Sarwat Lozano APRN Unavailable Unavailable Aileen Jacobson MD Unavailable Unavailable Leonid Santos MD Unavailable Unavailable Danitza Rios MA,CCC-DIE TRY OUT WORKER STAMPING Unavailable Unavailable Gela Cleary RN Unavailable Unavailable Hossein Minaya MD Unavailable Deonna Cunningham RN Unavailable Unavailable Anila Valencia RN Unavailable Unavailable Daniel Bond RN Unavailable Unavailable Yolette Moore MA,CCC-DIE TRY OUT WORKER STAMPING Unavailable Unavailable Bryan Romero Unavailable Unavailable Nallely Tracy MA,CCC-DIE TRY OUT WORKER STAMPING Unavailable Unavailable Haresh Kathleen MD Unavailable Teetee Taylor RN Unavailable Unavailable Bonnie Goss RN Unavailable Unavailable Maricel Albrecht MD Unavailable Kiarra Patrick RN Unavailable Unavailable Evelio Chris RN 2 Unavailable Todd Avendano MD Unavailable Tatiana Tim PA-C Unavailable Reason for Visit * Reason Comments New Patient Encounter Details Date Type Department Care Team Description 02/20/2018 Patient Profile [facility] Erin Paulino New Patient [facility] [place] [address] Social History Tobacco Use Types Packs/Day Years [...] as of this encounter Plan of Treatment Not on fileas of this encounter Visit Diagnoses Not on filein this encounter
--- OUTSIDE RECORDS SUMMARY | 2018-03-20 19:35 | XMS REPORT | Encounter Summary ---
Author Author [facility] Organization [facility] Address Unknown Phone Unavailable Care Team Providers Care Traffic Operator Name Role Phone Judah Lopez RN Unavailable Unavailable Brett Alcantar MD Unavailable Kumar Diggs MD Unavailable Doctor, Miscellaneous Unavailable Unavailable Barbara Pelaez MD Unavailable Adolfo Cardenas MD PCP Fausto Hsu Unavailable Unavailable Nallely Gomez MD Unavailable Silvano Potts MD Unavailable Sarwat Lozano APRN Unavailable Unavailable Aileen Jacobson MD Unavailable Unavailable Leonid Santso MD Unavailable Unavailable Danitza Rios MA,CCC-WEATHERIZATION ADMINISTRATOR Unavailable Unavailable Gela Cleary RN Unavailable Unavailable Hossein Minaya MD Unavailable Deonna Cunningham RN Unavailable Unavailable Anila Valencia RN Unavailable Unavailable Daniel Bond RN Unavailable Unavailable Yolette Moore MA,CCC-WEATHERIZATION ADMINISTRATOR Unavailable Unavailable Bryan Romero Unavailable Unavailable Nallely Tracy MA,CCC-WEATHERIZATION ADMINISTRATOR Unavailable Unavailable Haresh Kathleen MD Unavailable Teetee [...] [K21.9] Diarrhea, unspecified type [R19.7] P rocedures IN SIGMOIDOSCOPY FLX DX W/COLLJ SPEC BR/WA IF PFRMD FLEXIBLE SIGMOIDOSCOPY UPPER GASTROINTESTINAL ENDOSCOPY ESOPHAGOGASTRODU ODENOSCOPY SIGMOIDOSCOPY DIAGNOSTIC Encounter Details Date Type Department Care Team Description 01/14/2018 Surgery Gastrointenstinal Kumar Diggs MD ESOPHAGOGASTRODUODENOSCOP Endoscopy [address] [place] [address] [place] [address] [phone] Social History Tobacco Use Types Packs/Day Years Used Date Former Smoker Cigarettes 0.25 1 Quit: 05/17/1972 Smokeless Tobacco: Never Used Alcohol Use Drinks/Week oz/Week Comments Yes 0 Standard 0.0 ~1x/mo drinks or equivalent Sex Assigned at Date Recorded Not on file as of this encounter Last Filed Vital Signs Vital Sign Reading Time Taken Blood Pressure 144/78 01/14/2018 2:30 PM CDT Pulse 68 01/14/2018 2:30 PM CDT Temperature 37.1 C (98.8 F) 01/14/2018 1:38 PM CDT Respiratory Rate - - Oxygen Saturation 96% 01/14/2018 2:30 PM CDT Inhaled Oxygen - - Concentration Weight 97.5 kg (215 lb) 01/14/2018 1:03 PM CDT Height 167.6 cm (5' 6") 01/14/2018 1:03 PM CDT Body Mass Index 34.7 01/14/2018 1:03 PM CDT in this encounter Functional Status [...] impairment: No 02/18/2017 as of this encounter Discharge Instructions * Discharge Instr - Education - Natalie Momin RN - 01/14/2018 1:44 PM CDT EGD/Upper EUS/ERCP/Antegrade Enteroscopy Post Upper Endoscopy Instructions -Nothing to eat or drink for 1.5 hours after your procedure if you have had the numbing gargle or spray. Start with small sips of water at . If tolerated well, you may advance your diet as tolerated or directed by your physician. -You may have a sore throat after the procedure for 2-3 days. Try sucrets or lozenges to help ease the pain. If it continues please contact us. -If you feel feverish, have a temperature of 101 degrees or higher, persistent nausea and vomiting, abdominal pain or dark stools; please notify your nurse or GI physician. -You may have abdominal cramping following the procedure this can be relieved by belching or passing air. -If you have redness or swelling at the IV site, place a warm, wet washcloth over the affected areas for 15 minutes, 3-4 times a day until the redness subsides. If symptoms continue for 2-3 days, contact your regular physician. - If you have bleeding from your mouth, over 2 tablespoons and increasing, please notify your physician. A small amount of bleeding is normal if a biopsy or polyps were taken. If you are vomiting blood you need to seek immediate medical attention. - You may resume all your routine medications, if medications need to be held your physician and/or nurse will notify you post procedure. SPECIFIC INSTRUCTIONS INPATIENTS: Ask for help when you get up in your room, as you may still be drowsy from your sedation. OUTPATIENTS: A. Because of sedation and lack of coordination, UNTIL TOMORROW, DO NOT: 1. Operate any motorized vehicle - this includes driving. 2. Sign any legal documents or conduct important business matters. 3. Use any dangerous machinery (chain saw, lawnmower, etc.). 4. Drink any alcoholic beverages. Should you have any questions or concerns after your procedure please call G-B 8am-5:00 pm. After 5:00 pm, holidays or weekends call [phone] and ask for the GI Doctor organizational development director. Colon/Lower EUS/Retrograde Enteroscopy Post Lower Endoscopy Instructions -If you feel feverish, have a temperature of 101 degrees or higher, persistent nausea and vomiting, abdominal pain or dark stools; please notify your nurse or GI physician. -You may have abdominal cramping following the procedure this can be relieved by belching or passing air. -If you have redness or swelling at the IV site, place a warm, wet washcloth over the affected areas for 15 minutes, 3-4 times a day until the redness subsides. If symptoms continue for 2-3 days, contact your regular physician. - If you have bleeding from your bowels over 2 tablespoons and increasing, please notify your physician. A small amount of bleeding is normal if a biopsy or polyps were taken. - You may resume all your routine medications, if medications need to be held your physician and/or nurse will notify you post procedure. SPECIFIC INSTRUCTIONS OUTPATIENTS: B. Because of sedation and lack of coordination, UNTIL TOMORROW, DO NOT: 5. Operate any motorized vehicle - this includes driving. 6. Sign any legal documents or conduct important business matters. 7. Use any dangerous machinery (chain saw, lawnmower, etc.). 8. Drink any alcoholic beverages. Should you have any questions or concerns after your procedure please call [phone] N-I 8am-5:00 pm. After 5:00 pm, holidays or weekends call [phone] and ask for the GI Doctor organizational development director.' Colon/Lower EUS/Retrograde Enteroscopy Post Lower Endoscopy Instructions -If you feel feverish, have a temperature of 101 degrees or higher, persistent nausea and vomiting, abdominal pain or dark stools; please notify your nurse or GI physician. -You may have abdominal cramping following the procedure this can be relieved by belching or passing air. -If you have redness or swelling at the IV site, place a warm, wet washcloth over the affected areas for 15 minutes, 3-4 times a day until the redness subsides. If symptoms continue for 2-3 days, contact your regular physician. - If you have bleeding from your bowels over 2 tablespoons and increasing, please notify your physician. A small amount of bleeding is normal if a biopsy or polyps were taken. - You may resume all your routine medications, if medications need to be held your physician and/or nurse will notify you post procedure. SPECIFIC INSTRUCTIONS OUTPATIENTS: C. Because of sedation and lack of coordination, UNTIL TOMORROW, DO NOT: 9. Operate any motorized vehicle - this includes driving. 10. Sign any legal documents or conduct important business matters. 11. Use any dangerous machinery (chain saw, lawnmower, etc.). 12. Drink any alcoholic beverages. Should you have any questions or concerns after your procedure please call M-F 8am-5:00 pm. After 5:00 pm, holidays or weekends call [phone] and ask for the GI Doctor organizational development director. in this encounter Medications at Time of Discharge Medication Sig. Disp. Refills Start Date End Date acyclovir (ZOVIRAX) 200 Take 1 Cap by mouth 30 Cap 1 02/02/2016 mg capsule daily. aspirin 325 mg tablet Take 325 mg by mouth daily. Take with food. citalopram (CELEXA) 10 mg Take 10 mg by mouth tablet daily. diphenoxylate/atropine Take 1 tablet by mouth 30 tablet 1 11/17/2017 (LOMOTIL) 2.5/0.025 mg four times daily as tablet needed for Diarrhea. estradiol (ESTRACE) 0.01 Insert or Apply to 42.5 g 11 05/05/2017 % (0.1 mg/g) vaginal vaginal area three times creamIndications: Urinary weekly. Apply at bedtime. retention gabapentin (NEURONTIN) Take 600 mg by mouth 600 mg tablet daily. magnesium marcella/aluminum Take 1 Tab by mouth at hydroxide(+) (GAVISCON) bedtime daily. 20/80 mg chew metFORMIN (GLUCOPHAGE) Take 1 Tab by mouth twice 60 Tab 1 02/02/2016 500 mg tablet daily with meals. ondansetron (ZOFRAN) 4 mg Take 4 mg by mouth every tablet 8 hours as needed for Nausea or Vomiting. pantoprazole DR Take 1 tablet by mouth 30 tablet 3 11/17/2017 (PROTONIX) 40 mg tablet daily. pramipexole (MIRAPEX) Take 1 Tab by mouth twice 60 Tab 1 02/02/2016 0.125 mg tablet daily. simvastatin (ZOCOR) 40 mg Take 40 mg by mouth at tablet bedtime daily. zolpidem CR(+) (AMBIEN Take 12.5 mg by mouth at CR) 12.5 mg tablet bedtime as needed. mirabegron(+) ER Take 1 tablet by mouth 30 tablet 11 07/24/2017 (MYRBETRIQ) 50 mg daily. tabletIndications: Incomplete bladder emptying as of this encounter Progress Notes * Natalie Momin RN - 01/14/2018 2:18 PM CDT Discharge instructions provided to patient and spouse. All questions answered and all discharge needs addressed. Pt AOX4, vitals stable, pt awaiting sign out from Anesthesia. in this encounter H&P Notes * Kumar Diggs MD - 01/14/2018 12:31 PM CDT Formatting of this note may be different from the original. Pre Procedure History and Physical/Sedation Plan Name:Micki Kelley :1950 Age: 67 y.o. Date of Service: 01/14/18 Date of Procedure: 01/14/2018 Planned Procedure(s): GI: EGD and flexible sigmoidoscopy Sedation/Medication Plan: MAC (Monitored Anesthesia Care) Discussion/Reviews: Physician has discussed risks and alternatives of this type of sedation and above planned procedures with patient and significant other Chief Complaint: Dysphagia, diarrhea History of Present Illness: Micki Kelley is a 67 y.o. female here for EGD, botox injection and diagnostic sigmoidoscopy with biopsies. Previous Anesthetic/Sedation History: See anesthesia H&P for details Past Medical History: Diagnosis Date Adhesion of intestine Arthritis Cataract Chiari I malformation (HCC) Diabetes mellitus (HCC) BS elevates after surgery Diverticulitis Dizziness Essential hypertension Gall bladder disease GERD (gastroesophageal reflux disease) controlled with gaviscon High cholesterol Osteoporosis Status post total right knee replacement 01/26/2016 Thyroid disorder Ulcer Past Surgical History: Procedure Laterality Date HX ADENOIDECTOMY 1973 HX TONSILLECTOMY 1973 HX HYSTERECTOMY 1980 HX APPENDECTOMY 1980 BRAIN SURGERY 2004 Chiari decompression surgery HX KNEE SURGERY Left 2006 torn meniscus KNEE SURGERY Bilateral 2006 scoped HX CHOLECYSTECTOMY 2012 in [place], [place] TUNNELED VENOUS PORT PLACEMENT 2013 PARTIAL THYROIDECTOMY Left 01/01/2013 IN COLONOSCOPY FLX DX W/COLLJ SPEC WHEN PFRMD N/A 09/27/2015 COLONOSCOPY performed by Kumar Diggs MD at ENDO/GI, has had 6 procedures IN ARTHRP KNE CONDYLE&PLATU MEDIAL&LAT COMPARTMENTS Right 01/25/2016 RIGHT CEMENTED PRIMARY KNEE ARTHROPLASTY performed by Maricel Albrecht MD at Main OR[facility]iop COLONOSCOPY x6 procedures HERNIA REPAIR to 11/22/2013 x5 surgical procedures HX CATARACT REMOVAL PCIOL OU HX SECTION 1970/1975/1980 HX ROTATOR CUFF REPAIR Right ~2007 LASIK Astigmatism after PCIOL OD. Pertinent medical/surgical history reviewed Pertinent family history reviewed Social History Substance Use Topics Smoking status: Former Smoker Packs/day: 0.25 Years: 1.00 Types: Cigarettes Quit date: 05/17/1972 Smokeless tobacco: Never Used Alcohol use 0.0 oz/week Comment: ~1x/mo History Drug Use No Allergies: Patient has no known allergies. Medications Current Facility-Administered Medications Medication botulinum toxin A (BOTOX) injection 100 Units Facility-Administered Medications Ordered in Other Encounters Medication lidocaine PF injection Review of Systems: Issues pertinent to this examination detailed in the HPI above Physical Exam: General appearance: alert Throat: Lips, mucosa, and tongue normal. Teeth and gums normal Lungs: clear to auscultation bilaterally Heart: regular rate and rhythm, S1, S2 normal, no murmur, click, rub or gallop Abdomen: soft, non-tender. Bowel sounds normal. No masses, no organomegaly Extremities: extremities normal, atraumatic, no cyanosis or edema @ Airway: See anesthesia H&P for details Anesthesia Classification: Per Anesthesia NPO Status: Acceptable Status: Not Lab/Radiology/Other Diagnostic Tests Labs: Relevant labs reviewed Kumar Diggs MD Pager [phone] in this encounter Plan of Treatment Name Priority Associated Diagnoses Order Schedule SURGICAL PATHOLOGY Routine Abdominal bloating ONCE for 1 Occurrences Gastroesophageal reflux starting 01/14/2018 disease, esophagitis presence not specified Diarrhea, unspecified type as of this encounter Procedures Procedure Name Priority Date/Time Associated Diagnosis [...] Call - spoke with pt., 01/09/18 @ 906 ()4th Call - EGD / Flex Sig [...] Call - spoke with pt., 01/09/18 @ 906 ()4th Call - EGD / Flex Sig [...] 12:37 pm () / Tried 2 times in this encounter Results * TELEMETRY STRIPS-SCAN (01/15/2018 12:33 PM) Narrative Performed At Ordered by an unspecified provider. * SURGICAL PATHOLOGY (01/14/2018 2:25 PM) PATHOLOGY REPORT [facility] [email or web address] Department of Pathology and Laboratory Medicine [address] [place] [address] Surgical Pathology Office:[phone] :[phone] SURGICAL PATHOLOGY REPORT NAME: MICKI KELLEY SURG PATH #: [id number] MR #: [id number] SPECIMEN CLASS: SR BILLING #: [id number] ALT ID #:LOCATION: [facility] DATE OF PROCEDURE: 01/14/2018 AGE:67 SEX: F [...] lt/01/14/2018 Performing Organization Address City/State/Zipcode Phone Number [facility] * POC GLUCOSE (01/14/2018 12:58 PM) Glucose, POC 146 (H) 70 - 100 MG/DL [facility] Performing Organization Address City/State/Zipcode Phone Number [facility] [address] [place] [address] * EGD REPORT (01/14/2018 12:54 PM) Provation Report Patient Name: Allie MCDONALD OTHER RESULTS Procedure Date: 01/14/2018 12:54 PM [facility]: [id number] Date of : 1950 Gender: Female Attending Physician: Kumar Diggs MD Procedure: Upper GI endoscopy Indications: Dysphagia Providers: Kumar Diggs MD (Doctor), Greer Argueta RN (Nurse), Lisa Iverson RN (Nurse), Aileen Lucas, Research [employer] Insights Executive (Research And Insights Executive) Referring Physician: Adolfo Cardenas Medications: Monitored Anesthesia [...] 14 seconds Procedure Code(s): --- Professional --- 14139, Esophagogastroduodenoscopy, flexible, transoral; with biopsy, single or multiple 29101, 59, Esophagogastroduodenoscopy, flexible, transoral; with directed submucosal injection(s), any substance Diagnosis Code(s): --- Professional --- R13.10, Dysphagia, unspecified CPT copyright 2016 [employer]. All rights reserved. The codes documented in this report are preliminary and upon desk interviewer review may be revised to meet current [...] RESULTS Procedure Date: 01/14/2018 12:54 PM CSN: [id number] Date of : 1950 Gender: Female Attending Physician: Kumar Diggs MD Procedure: Flexible Sigmoidoscopy Indications: Diarrhea Providers: Kumar Diggs MD (Doctor), Greer Argueta RN (Nurse), Lisa Iverson RN (Nurse), Aileen Lucas Research [employer] Insights Executive (Research And Insights Executive) Referring Physician: Adolfo Cardenas Medications: Monitored Anesthesia [...] 19 seconds Procedure Code(s): --- Professional --- 95764, Sigmoidoscopy, flexible; with biopsy, single or multiple Diagnosis Code(s): --- Professional --- R19.7, Diarrhea, unspecified K57.30, Diverticulosis of large intestine without perforation or abscess without bleeding K64.4, Residual hemorrhoidal skin tags CPT copyright 2016 [employer]. All rights reserved. The codes documented in this report are preliminary and upon desk interviewer review may be revised to meet current compliance requirements. Attending Participation: I personally performed the entire procedure. I was present and participated during the entire procedure, including non-azul portions. MD Kumar Clark MD 01/14/2018 1:41:20 PM The attending physician has electronically signed and finalized this document. Number of Addenda: 0 Note Initiated On: 01/14/2018 12:54 PM Performing Organization Address City/State/Zipcode Phone Number [facility] OTHER RESULTS in this encounter Visit Diagnoses Diagnosis Abdominal bloating Flatulence, eructation, and gas pain Gastroesophageal reflux disease, esophagitis presence not specified Diarrhea, unspecified type Admitting Diagnoses Diagnosis Abdominal bloating - Abdominal bloating [R14.0] Flatulence, eructation, and gas pain Gastroesophageal reflux disease, esophagitis presence not specified - Gastroesophageal reflux disease, esophagitis presence not specified [K21.9] Diarrhea, unspecified type - Diarrhea, unspecified type [R19.7] Administered Medications Medication Order MAR Action Action Date Dose Rate Site botulinum toxin A (BOTOX) injection Given 01/14/2018 100 Units INTRA-PROCEDURE MED, Starting Fri 13:27 CDT 01/14/18 at 1327, Until Fri01/14/18 at 1701, Intra-op heparin lock flush PF syringe 500 Units Given 01/14/2018 500 Units 500 Units, Intravenous, ONCE, 1 dose, 14:31 CDT Fri01/14/18 at 1430, NOTE: This is a HIGH ALERT Medication. sodium chloride 0.9 % infusion Given - New 01/14/2018 1,000 mL 1,000 mL, Intravenous, CONTINUOUS, Bag 13:08 CDT Starting Fri01/14/18 at 1245, Until Fri01/14/18 at 1701, Pre-Op sodium chloride PF 0.9% flush Given 01/14/2018 5 mL INTRA-PROCEDURE MED, Starting Wed 13:27 CDT 01/14/18 at 1327, Until Fri01/14/18 at 1701, Intra-op in this encounter
--- OUTSIDE RECORDS SUMMARY | 2018-03-20 19:35 | XMS REPORT | Encounter Summary ---
Author Author [facility] Organization [facility] Address Unknown Phone Unavailable Care Team Providers Care Supervisor Industrial [employer] Education Name Role Phone Judah Lopez RN Unavailable Unavailable Brett Alcantar MD Unavailable Kumar Diggs MD Unavailable Doctor, Miscellaneous Unavailable Unavailable Barbara Pelaez MD Unavailable Adolfo Cardenas MD PCP Fausto Hsu Unavailable Unavailable Nallely Gomez MD Unavailable Silvano Potts MD Unavailable Sarwat Lozano APRN Unavailable Unavailable Aileen Jacobson MD Unavailable Unavailable Leonid Santos MD Unavailable Unavailable Danitza Rios MA,CCC-PROTECTIVE SIGNAL REPAIRER Unavailable Unavailable Gela Cleary RN Unavailable Unavailable Hossein Minaya MD Unavailable Deonna Cunningham RN Unavailable Unavailable Anila Valencia RN Unavailable Unavailable Daniel Bond RN Unavailable Unavailable Yolette Moore MA,CCC-PROTECTIVE SIGNAL REPAIRER Unavailable Unavailable Bryan Romero Unavailable Unavailable Nallely Tracy MA,CCC-PROTECTIVE SIGNAL REPAIRER Unavailable Unavailable Haresh Kathleen MD Unavailable Teetee Taylor RN Unavailable Unavailable Bonnie Goss RN Unavailable Unavailable Maricel Albrecht MD Unavailable Kiarra Patrick RN Unavailable Unavailable Evelio Chris RN 2 Unavailable Todd Avendano MD Unavailable Tatiana Tim PA-C Unavailable Reason for Visit * Reason Comments Medication Follow-up Encounter Details Date Type Department Care Team Description 03/10/2018 Telephone [facility] Surekha Winters MD Medication Follow-up Physicians - Urology [address] [facility] [address] [place] [address] [phone] [place] [address] Social History Tobacco Use Types [...] encounter Miscellaneous Notes * Telephone Encounter - Aileen Nelson RN - 03/10/2018 12:07 PM CDT Patient left a message on [email or web address] for a refill on the medication that is a replacement for Vesicare. Called patient back and confirmed that the medication is Myrbetriq. This will be sent to her pharmacy in [facility] pharmacy. Patient verbalized understanding. in this encounter Plan of Treatment Not on fileas of this encounter Visit Diagnoses Diagnosis Incomplete bladder emptying
--- OUTSIDE RECORDS SUMMARY | 2018-03-20 19:35 | XMS REPORT | Encounter Summary ---
Author Author [facility] Organization [facility] Address Unknown Phone Unavailable Care Team Providers Care Junior Linux Systems Administrator Name Role Phone Judah Lopez RN Unavailable Unavailable Brett Alcantar MD Unavailable Kumar Diggs MD Unavailable Doctor, Miscellaneous Unavailable Unavailable Barbara Pelaez MD Unavailable Adolfo Cardenas MD PCP Fausto Hsu Unavailable Unavailable Nallely Gomez MD Unavailable Silvano Potts MD Unavailable Sarwat Lozano APRN Unavailable Unavailable Aileen Jacobson MD Unavailable Unavailable Leonid Santos MD Unavailable Unavailable Danitza Rios MA,CCC-INTERNAL AUDITOR Unavailable Unavailable Gela Cleary RN Unavailable Unavailable Hossein Minaya MD Unavailable Deonna Cunningham RN Unavailable Unavailable Anila Valencia RN Unavailable Unavailable Daniel Bond RN Unavailable Unavailable Yolette Moore MA,CCC-INTERNAL AUDITOR Unavailable Unavailable Bryan Romero Unavailable Unavailable Nallely Tracy MA,CCC-INTERNAL AUDITOR Unavailable Unavailable Haresh Kathleen MD Unavailable Teetee [...] [address] [facility] [address] [place], [place] CONNECT + SCAN [id number] * Consult, Test & Treat Status Reason Specialty Diagnoses / Referred By Referred To Procedures Contact Contact New Request Diagnoses Stefanie Miltonitations MD Christiano [address] [place] [address] ECG [place], [place] CONNECT + SCAN [id number] Reason for Visit * Consult, Test & Treat Status Reason Specialty Diagnoses / Referred By Referred To Procedures Contact Contact New Request Diagnoses Stefanie Milton MD [address] [place] [address] ECG [place], [place] CONNECT + [place]AN [id number] Encounter Details Date Type Department Care Team Description 03/11/2018 [facility] Cardiology Stefanie Milton MD Encounter [facility] [place] [address] [place] [address] [phone] Social History Tobacco Use Types Packs/Day Years [...] impairment: No 02/18/2017 as of this encounter Medications at Time of Discharge [...] 02/02/2016 500 mg tablet daily with meals. mirabegron(+) ER Take 1 tablet by mouth 30 tablet 11 03/10/2018 (MYRBETRIQ) 50 mg daily. tabletIndications: Incomplete bladder emptying ondansetron (ZOFRAN) 4 mg Take 4 mg [...] CR) 12.5 mg tablet bedtime as needed. as of this encounter Plan of Treatment Name Priority Associated Diagnoses Date/Time [facility] ECG MONITOR CONNECT + Routine Palpitations 03/17/2018 10 :44 AM CDT SCAN as of this encounter Visit Diagnoses Diagnosis Palpitations
--- OUTSIDE RECORDS SUMMARY | 2018-03-20 19:35 | XMS REPORT | Encounter Summary ---
Author Author [facility] Organization [facility] Address Unknown Phone Unavailable Care Team Providers Care Global Mobility Specialist Name Role Phone Judah Lopez RN Unavailable Unavailable Brett Alcantar MD Unavailable Kumar Diggs MD Unavailable Doctor, Miscellaneous Unavailable Unavailable Barbara Pelaez MD Unavailable Adolfo Cardenas MD PCP Fausto Hsu Unavailable Unavailable Nallely Gomez MD Unavailable Silvano Potts MD Unavailable Sarwat Lozano APRN Unavailable Unavailable Aileen Jacobson MD Unavailable Unavailable Leonid Santos MD Unavailable Unavailable Danitza Rios MA,CCC-JEWELRY COATER Unavailable Unavailable Gela Cleary RN Unavailable Unavailable Hossein Minaya MD Unavailable Deonna Cunningham RN Unavailable Unavailable Anila Valencia RN Unavailable Unavailable Daniel Bond RN Unavailable Unavailable Yolette Moore MA,CCC-JEWELRY COATER Unavailable Unavailable Bryan Romero Unavailable Unavailable Nallely Tracy MA,CCC-JEWELRY COATER Unavailable Unavailable Haresh Kathleen MD Unavailable Teetee Taylor RN Unavailable Unavailable Bonnie Goss RN Unavailable Unavailable Maricel Albrecht MD Unavailable Kiarra Patrick RN Unavailable Unavailable Evelio Chris RN 2 Unavailable Todd Avendano MD Unavailable Tatiana Tim PA-C Unavailable Encounter Details Date Type Department Care Team Description 01/14/2018 Procedure Pass Gastrointenstinal Endoscopy [address] [place] [address] Social History Tobacco Use Types Packs/Day Years [...]
--- OUTSIDE RECORDS SUMMARY | 2018-03-20 19:36 | XMS REPORT | Encounter Summary ---
Author Author [facility] Organization [facility] Address Unknown Phone Unavailable Care Team Providers Care Statistical Modeler Name Role Phone Judah Lopez RN Unavailable Unavailable Brett Alcantar MD Unavailable Kumar Diggs MD Unavailable Doctor, Miscellaneous Unavailable Unavailable Barbara Pealez MD Unavailable Adolfo Cardenas MD PCP Fausto Hsu Unavailable Unavailable Nallely Gomez MD Unavailable Silvano Potts MD Unavailable Sarwat Lozano APRN Unavailable Unavailable Aileen Jacobson MD Unavailable Unavailable Leonid Santos MD Unavailable Unavailable Danitza Rios MA,CCC-USER EXPERIENCE ANALYST Unavailable Unavailable Gela Cleary RN Unavailable Unavailable Hossein Minaya MD Unavailable Deonna Cunningham RN Unavailable Unavailable Anila Valencia RN Unavailable Unavailable Daniel Bond RN Unavailable Unavailable Yolette Moore MA,CCC-USER EXPERIENCE ANALYST Unavailable Unavailable Bryan Romero Unavailable Unavailable Nallely Tracy MA,CCC-USER EXPERIENCE ANALYST Unavailable Unavailable Haresh Kathleen MD Unavailable Teetee [...] [K21.9] Diarrhea, unspecified type [R19.7] P rocedures AR SIGMOIDOSCOPY FLX DX W/COLLJ SPEC BR/WA IF PFRMD FLEXIBLE SIGMOIDOSCOPY UPPER GASTROINTESTINAL ENDOSCOPY ESOPHAGOGASTRODU ODENOSCOPY SIGMOIDOSCOPY DIAGNOSTIC Encounter Details Date Type Department Care Team Description 01/14/2018 [facility] Kumar Diggs MD Abdominal bloating Encounter Endoscopy [address] [place] [address] [place] [address] [phone] Social History Tobacco Use Types Packs/Day Years [...] or concerns after your procedure please call [phone] U-M 8am-5:00 pm. After 5:00 pm, holidays or weekends call [phone] and ask for the GI Doctor button bradder. Colon/Lower EUS/Retrograde Enteroscopy Post Lower Endoscopy Instructions [...] or concerns after your procedure please call [phone] H-W 8am-5:00 pm. After 5:00 pm, holidays or weekends call [phone] and ask for the GI Doctor button bradder.' Colon/Lower EUS/Retrograde Enteroscopy Post Lower Endoscopy Instructions [...] After 5:00 pm, holidays or weekends call [phone] and ask for the GI Doctor button bradder. in this encounter Medications at Time of [...] Bilateral 2006 scoped HX CHOLECYSTECTOMY 2012 in [place], [place] TUNNELED VENOUS PORT PLACEMENT 2013 PARTIAL THYROIDECTOMY Left 01/01/2013 AR COLONOSCOPY FLX DX W/COLLJ SPEC WHEN PFRMD N/A 09/27/2015 COLONOSCOPY performed by Kumar Diggs MD at ENDO/GI, has had 6 procedures AR ARTHRP KNE CONDYLE&PLATU MEDIAL&LAT COMPARTMENTS Right 01/25/2016 [...] Relevant labs reviewed Kumar Diggs MD Pager [phone] in this encounter Plan of Treatment Name [...] PATHOLOGY (01/14/2018 2:25 PM) PATHOLOGY REPORT [facility] [employer] [email or web address] Department of Pathology and Laboratory Medicine [address] [place] [address] Surgical Pathology Office:[phone] :[phone] SURGICAL PATHOLOGY REPORT NAME: MICKI KELLEY SURG PATH #: [id number] MR #: [id number] SPECIMEN CLASS: SR BILLING #: [id number] ALT ID #:LOCATION: [facility] DATE OF PROCEDURE: 01/14/2018 AGE:67 SEX: F [...] 100 MG/DL MAIN LAB Performing Organization Address City/State/Zipcode Phone Number MAIN LAB [address] [place] [address] * EGD REPORT (01/14/2018 12:54 PM) Provation Report Patient Name: Allie Sweet KU OTHER RESULTS Procedure Date: 01/14/2018 12:54 PM [facility]: [id number] Date of : 1950 Gender: Female Attending Physician: Kumar Diggs MD Procedure: Upper GI endoscopy Indications: Dysphagia Providers: Kumar Diggs MD (Doctor), Greer Argueta RN (Nurse), Lisa Iverson RN (Nurse), Aileen Lucas, Landscape Contractor (Landscape Contractor) Referring Physician: Adolfo Cardenas Medications: Monitored Anesthesia [...] 14 seconds Procedure Code(s): --- Professional --- 20483, Esophagogastroduodenoscopy, flexible, transoral; with biopsy, single or multiple 26759, 59, Esophagogastroduodenoscopy, flexible, transoral; with directed submucosal injection(s), any substance Diagnosis Code(s): --- Professional --- R13.10, Dysphagia, unspecified CPT copyright 2016 [employer]. All rights reserved. The codes documented in this report are preliminary and upon front end technician review may be revised to meet current [...] RESULTS Procedure Date: 01/14/2018 12:54 PM CSN: [id number] Date of : 1950 Gender: Female Attending Physician: Kumar Diggs MD Procedure: Flexible Sigmoidoscopy Indications: Diarrhea Providers: Kumar Diggs MD (Doctor), Greer Argueta RN (Nurse), Lisa Iverson RN (Nurse), Aileen Lucas Landscape Contractor (Landscape Contractor) Referring Physician: Adolfo Cardenas Medications: Monitored Anesthesia [...] 19 seconds Procedure Code(s): --- Professional --- 10174, Sigmoidoscopy, flexible; with biopsy, single or multiple Diagnosis Code(s): --- Professional --- R19.7, Diarrhea, unspecified K57.30, Diverticulosis of large intestine without perforation or abscess without bleeding K64.4, Residual hemorrhoidal skin tags CPT copyright 2016 [employer]. All rights reserved. The codes documented in this report are preliminary and upon front end technician review may be revised to meet current [...] Abdominal bloating Flatulence, eructation, and gas pain Diarrhea, unspecified type Gastroesophageal reflux disease, esophagitis presence not specified Admitting Diagnoses Diagnosis Abdominal bloating - Abdominal [...] Given 01/14/2018 5 mL INTRA-PROCEDURE MED, Starting Fri 13:27 CDT 01/14/18 at 1327, Until Fri01/14/18 at 1701, Intra-op in this encounter
[2018-03-20 19:42] LABS: ALANINE AMINOTRANSFERASE 20 U/L (0-55); ALBUMIN 3.6 GM/DL (3.2-4.5); ALKALINE PHOSPHATASE 86 U/L (40-136); BILIRUBIN,TOTAL 0.8 MG/DL (0.1-1.0); BUN/CREATININE RATIO 12; CALCIUM 9.4 MG/DL (8.5-10.1); CARBON DIOXIDE 25 MMOL/L (21-32); CHLORIDE 105 MMOL/L (98-107); GFR ESTIMATED > 60; GLUCOSE 200 MG/DL (70-105); POTASSIUM 4.4 MMOL/L (3.6-5.0); SODIUM 140 MMOL/L (135-145); TOTAL PROTEIN 5.6 GM/DL (6.4-8.2)
[2018-03-20] MEDS ORDERED: NS IV 1000 ML 1,000 ML IV SCH (20:07)
[2018-03-20] MEDS ORDERED: CATHETER FLUSH 10 ML SYR IV PRN (20:45)
[2018-03-20] MEDS ORDERED: NS 250 ML (IVPB) BAG IV ONE (20:45)
[2018-03-20] MEDS ORDERED: IOHEXOL 350 MG/ML 150 ML (OMNIPAQUE 350) VIAL IV ONE (20:45)
--- NOTE | 2018-03-20 20:52 | Diagnostic Imaging Report ---
PROCEDURE: CT angiography of the chest with contrast. TECHNIQUE: Multiple contiguous axial images were obtained through the chest after uneventful bolus administration of intravenous contrast. Reconstructed CTA MIP acquisitions were also performed. INDICATION: Shortness of breath COMPARISON: None FINDINGS: The heart size is normal. There is coronary artery disease present. There is no pericardial effusion. No lymphadenopathy is seen. Course and caliber of the aorta is normal. Pulmonary arteries are grossly unremarkable. There is no embolism. Lungs are clear. Osseous structures and visualized upper abdominal solid organs are normal. IMPRESSION: 1. No pulmonary embolism identified 2. Coronary artery disease. Dictated by: Dictated on workstation # [id number]
[2018-03-20] MEDS ORDERED: INHA1INH59 MC (21:07)
[2018-03-20] MEDS ORDERED: RT-ALBUINH IH (21:07)
[2018-03-20 21:20] VITALS: BP 127/72
== END 2018-03-20 21:20 | disposition home or self-care (01) ==
LOC: EDUNIT# 18:15 → ER 18:16
DX: Z79.52 Long term (current) use of systemic steroids (principal); J20.9 Acute bronchitis, unspecified; J42 Unspecified chronic bronchitis; Z79.84 Long term (current) use of oral hypoglycemic drugs; Z79.82 Long term (current) use of aspirin; Z87.891 Personal history of nicotine dependence; Z87.01 Personal history of pneumonia (recurrent); Z87.19 Personal history of other diseases of the digestive system; Z82.49 Family history of ischemic heart disease and other diseases of the circulatory system
CPT/HCPCS: 36415; 71046; 71275; 80053; 83880; 85025; 85379; 86141; 94640; 96360

== ENCOUNTER → 2018-03-20 | Outpatient (CLI) | payer MEDICARE, OTHER ==
--- NOTE | 2018-03-20 12:14 | Diagnostic Imaging Report ---
PROCEDURE: MRI lumbar spine. TECHNIQUE: Multiplanar, multisequence MRI of the lumbar spine was performed without contrast. INDICATION: Back pain, chronic low back pain. Comparison is made to study of 07/14/2014. FINDINGS: There is mild left convexity curvature of the lumbar spine. Vertebral body heights and disc spaces are maintained. There is mild desiccation of L4-L5 and L5-S1 disc. Small hyperintense T2 focus in the posterior aspect of the L4-L5 disc is again noted without significant change. There is no evidence of focal disc protrusion or significant stenosis. Degenerative facet arthropathy is present at L4-L5, greater on the right. Apparent facet spurring does result in [id number] right lateral recess stenosis. There is no marrow signal abnormality to indicate fracture. IMPRESSION: Small central annular tear is again noted posteriorly at L4-L5 without significant protrusion. Degenerative spurring and ligamentum flavum hypertrophy at L4-L5 results in [id number] right lateral recess stenosis. Dictated by: Dictated on workstation # [id number]
--- NOTE | 2018-03-20 16:45 | Diagnostic Imaging Report ---
EXAMINATION: Pelvis, single view. Right hip, 2 views. Left hip, 2 views. COMPARISON: None. HISTORY: 67-year-old female, bilateral hip pain. FINDINGS: The pubic symphysis and sacroiliac joints are normally aligned. There are right greater than left facet degenerative changes at L4-L5 and L5-S1. There are bilateral facet degenerative changes at L3-L4. The sacroiliac joints are unremarkable in appearance. The hips are not dislocated. There is no prominent osteophyte formation or subchondral cystic change of either hip. There is no pronounced joint space loss of either hip. There is no identified acute fracture. There is no radiographically apparent bone lesion. Pelvic calcifications likely reflect phleboliths. IMPRESSION: 1. Unremarkable appearance of the hip joints. 2. Facet degenerative changes at L3-L4, L4-L5 and L5-S1. Dictated by: Dictated on workstation # [id number]
== END ==
LOC: RAD 10:52
PROVIDERS: ATTEND Family Medicine
DX: M51.36 Other intervertebral disc degeneration, lumbar region (principal); M47.816 Spondylosis without myelopathy or radiculopathy, lumbar region
CPT/HCPCS: 72148; 73523

== ENCOUNTER 2018-04-14 09:44 | Outpatient (RCR) | payer MEDICARE, OTHER ==
[~2018-04-14] VITALS: Ht 167.6 cm; Wt 101.6 kg
[~2018-04-14 09:44] MED LIST changes: +INHA1INH59 MC; +METF-397 PO; -METF500T5 PO; +RT-ALBUINH IH
[2018-04-14] MEDS ORDERED: HEParin (CENTRAL IV FLUSH) 500 UNIT/5 ML SYR ONE (09:53)
[2018-04-14] MEDS ORDERED: HEParin (CENTRAL IV FLUSH) 500 UNIT/5 ML SYR IV ONE (10:00)
[2018-04-14 10:10] VITALS: BP 133/85
== END 2018-04-24 | disposition home or self-care (01) ==
LOC: SDC 09:44
PROVIDERS: ATTEND Family Medicine
DX: Z45.2 Encounter for adjustment and management of vascular access device (principal); Z86.19 Personal history of other infectious and parasitic diseases
CPT/HCPCS: 87045; 87046; 87077; 87186; 96523

== ENCOUNTER → 2018-05-01 | Outpatient (CLI) | payer MEDICARE, OTHER | LOC: LAB 09:34 | PROVIDERS: ATTEND Nurse Practitioner Family | DX: Z86.19 Personal history of other infectious and parasitic diseases (principal) | CPT/HCPCS: 87045; 87046 ==

== ENCOUNTER 2018-06-23 06:02 | Emergency (ER) | payer MEDICARE, OTHER ==
[~2018-06-23] VITALS: Ht 167.6 cm; Wt 101.6 kg
[~2018-06-23 06:02] MED LIST changes: +METR-197 PO; -METR500T21 PO
--- OUTSIDE RECORDS SUMMARY | 2018-06-23 06:09 | XMS REPORT | Clinical Summary ---
Author Author [facility] Organization [facility] Address Unknown Phone Unavailable Care Team Providers Care Online Facilitator Name Role Phone Adolfo Cardenas MD PCP Allergies No Known Allergies Current Medications Prescription Sig. Disp. Refills Start End Date Status Date diazePAM (VALIUM) 5 MG Take 5 mg by mouth daily. Active tablet ALPRAZolam (XANAX) 1 MG Take 1 mg by mouth at Active tablet bedtime. acyclovir (ZOVIRAX) 5 % Apply topically as Active cream directed. acyclovir (ZOVIRAX) 200 Take 200 mg by mouth Active MG capsule daily. zolpidem (AMBIEN CR) 12.5 Take 12.5 mg by mouth Active MG CR tablet nightly as needed for sleep. gemfibrozil (LOPID) 600 Take 600 mg by mouth 2 Active MG tablet (two) times a day before breakfast and dinner. metformin (GLUCOPHAGE) Take 500 mg by mouth 2 Active 500 mg tablet (two) times a day with meals. pramipexole (MIRAPEX) Take 0.5 mg by mouth 3 Active 0.125 MG tablet (three) times a day. hydroCHLOROthiazide Take 25 mg by mouth Active (HYDRODIURIL) 25 MG daily. tablet simvastatin (ZOCOR) 40 MG Take 40 mg by mouth Active tablet nightly. oxybutynin (DITROPAN) 5 Take 5 mg by mouth 2 Active MG tablet (two) times a day. gabapentin (NEURONTIN) Take 600 mg by mouth 3 Active 600 MG tablet (three) times a day. aspirin 325 MG tablet Take 325 mg by mouth Active daily. citalopram (CELEXA) 10 mg 10 mg. 05/10/20 Active tablet 18 dicyclomine (BENTYL) 10 10 mg. 11/11/19 Active MG capsule 18 docusate sodium (COLACE) 100 mg. Active 100 MG capsule estradiol (ESTRACE) 0.01 Insert vaginally daily. 01/02/20 Active % (0.1 mg/gram) vaginal 18 cream mirabegron (MYRBETRIQ) 50 50 mg. 07/24/20 Active mg Tb24 tablet 17 pantoprazole (PROTONIX) 40 mg. 11/18/19 Active 40 MG tablet 18 Active Problems Problem Noted Date Diarrhea 03/27/2018 Last Assessment & Plan: Dx salmonella in October, had diarrhea since Had colonoscopy outpatient ID consulted as GI pathogen + salmonella but likely carrier state D/w Dr. Peralta Stool culture ordered No antibiotics at this time Shortness of breath 03/26/2018 Overview: Last Assessment & Plan: Patient is complaining [...] that her symptoms are pulmonary in nature. L ast Assessment & Plan: Reviewed echo, has mild diastolic dysfunction but no evidence of decompensated heart failure suspect deconditioning, GRACE, restrictive dz from obesity Appreciate pulmonary assistance, they have s/o Encourage ambulation monitor Chronic abdominal pain 03/26/2018 Essential hypertension 03/26/2018 Last Assessment & Plan: Continue on home meds and monitor Type 2 diabetes mellitus with hyperglycemia, without long-term current use 03/26/2018 of insulin (HCC) Last Assessment & Plan: Metformin was held since 03/21 d/t CT scan as outside ED A1C 8.1, needs better control Resume metformin after 48 hours of contrast accuchecks/SSI Hyperlipemia 03/26/2018 Last Assessment & Plan: Continue Simvastatin and Gemfibrozil Overactive bladder 03/26/2018 Last Assessment & Plan: Stable, continue home meds Sigmoid diverticulosis 01/01/2018 Abdominal bloating 11/18/2017 Overview: Overview: Added automatically from request for surgery [id number] Gastroesophageal reflux disease 11/18/2017 Overview: Overview: Added automatically from request for surgery [id number] Hepatic steatosis 10/30/2017 Overview: Overview: Identified on CT at [facility] on 10/26/2017 L ast Assessment & Plan: Identified on CT at [facility] 10/26/17, LFTs normal on admission - Recommend weight loss Follow up with Mild cardiomegaly 10/30/2017 Overview: Overview: CTA chest With and without contrast. med on 10/26/2017. Incomplete emptying of bladder 05/06/2017 Overview: Overview: - Increased difficulty voiding and feeling inc emptying - Voids q2h - urgency, MACIEL UDS (07/14/17): sensory urgency, +DO, +LPP, small capacity, emptying and dysfunctional voiding Mirabegron, PFRT-> almost all symptoms resolved Last Assessment & Plan: - restart mirabegron - PFRT - rtc prn S/P total knee arthroplasty 01/28/2016 Status post total right knee replacement 01/26/2016 Pain, neuropathic 12/21/2013 Last Assessment & Plan: Follows with pain management Continue Gabapentin, Mirapex for RLS S/P hernia repair 11/22/2013 S/P partial thyroidectomy 01/04/2013 Last Assessment & Plan: Stable, monthly thyroid studies per pt report, no home meds F/u endo outpatient Encounters Date Type Specialty Care Team Description 03/26/2018 [facility] Valdo Park MD Shortness of breath - Encounter Anastasia Kaba DO (Primary Dx); 03/30/2018 Juan Pyle MD Dyspnea, unspecified Hirschman, Mickelle T, DO type; Obesity, unspecified classification, unspecified obesity type, unspecified whether serious comorbidity present 03/26/2018 Procedure Pass 03/26/2018 Procedure Pass from Last 3 Months Social History Tobacco Use Types Packs/Day Years Used Date Former Smoker Cigarettes 0.25 3 03/25/1969 - 03/25/1972 Smokeless Tobacco: Never Used Comments: smoke pack a day for 6 months 40 years ago. Alcohol Use Drinks/Week oz/Week Comments Yes 2 drinks weekly. Sex Assigned at Date Recorded Not on file Last Filed Vital Signs Vital Sign Reading Time Taken Blood Pressure 142/64 03/30/2018 1:08 PM CDT Pulse 67 03/30/2018 1:08 PM CDT Temperature 36.7 C (98 F) 03/30/2018 1:08 PM CDT Respiratory Rate 20 03/30/2018 1:08 PM CDT Oxygen Saturation 92% 03/30/2018 1:08 PM CDT Inhaled Oxygen - - Concentration Weight 103.3 kg (227 lb 11.2 oz) 03/30/2018 3:43 AM CDT Height 167.6 cm (5' 6") 03/26/2018 12:48 PM CDT Body Mass Index 36.75 03/30/2018 3:43 AM CDT Plan of Treatment Health Maintenance Due Date Last Done Comments Diabetes Mellitus 1950 Ophthalmology Exam Diabetes Mellitus Urine 1950 Microalbumin Hepatitis C Screen 1950 Medicare Annual Wellness 1950 Td # 1950 Diabetes Mellitus Foot 1962 Exam Colorectal Screening via 2002 Colonoscopy Mammogram Screening 2002 Zoster Vaccine# (1 of 2) 2002 Depression Screening 2017 PHQ-9 # Osteoporosis Screening 2017 Pneumococcal Immunization 2017 65+ (1 of 2 - PCV13) Influenza Vaccine (#1) 2018 Diabetes Mellitus 09/26/2018 03/26/2018 Hemoglobin A1C Lipid Screening 03/27/2019 03/27/2018 Fall Risk Assessment # 03/30/2019 03/30/2018 Procedures Procedure Name Priority Date/Time Associated Diagnosis Comments GLUCOSE POC Routine 03/30/2018 Results for this 11:23 AM CDT procedure are in the results section. GLUCOSE POC Routine 03/30/2018 Results for this 7:11 AM CDT procedure are in the results section. CBC AND DIFF (MANUAL DIFF Routine 03/30/2018 Results for this IF NECESSARY) 4:47 AM CDT procedure are in the results section. MAGNESIUM Routine 03/30/2018 Results for this 3:30 AM CDT procedure are in the results section. COMPREHENSIVE METABOLIC Routine 03/30/2018 Results for this PANEL 3:30 AM CDT procedure are in the results section. GLUCOSE POC Routine 03/30/2018 Results for this 12:27 AM CDT procedure are in the results section. GLUCOSE POC Routine 03/29/2018 Results for this 8:28 PM CDT procedure are in the results section. GLUCOSE POC Routine 03/29/2018 Results for this 4:34 PM CDT procedure are in the results section. GLUCOSE POC Routine 03/29/2018 Results for this 11:41 AM CDT procedure are in the results section. MAGNESIUM Routine 03/29/2018 Results for this 8:15 AM CDT procedure are in the results section. BASIC METABOLIC PANEL Routine 03/29/2018 Results for this 8:15 AM CDT procedure are in the results section. CBC AND DIFF (MANUAL DIFF Routine 03/29/2018 Results for this IF NECESSARY) 8:15 AM CDT procedure are in the results section. HOME O2 EVAL Routine 03/29/2018 7:54 AM CDT GLUCOSE POC Routine 03/29/2018 Results for this 7:24 AM CDT procedure are in the results section. GLUCOSE POC Routine 03/28/2018 Results for this 9:06 PM CDT procedure are in the results section. ARTERIAL BLOOD GAS STAT 03/28/2018 Results for this 5:11 PM CDT procedure are in the results section. GLUCOSE POC Routine 03/28/2018 Results for this 5:09 PM CDT procedure are in the results section. GLUCOSE POC Routine 03/28/2018 Results for this 11:53 AM CDT procedure are in the results section. GLUCOSE POC Routine 03/28/2018 Results for this 7:33 AM CDT procedure are in the results section. PROCALCITONIN Add-On 03/28/2018 Results for this 5:05 AM CDT procedure are in the results section. MAGNESIUM Routine 03/28/2018 Results for this 5:05 AM CDT procedure are in the results section. BASIC METABOLIC PANEL Routine 03/28/2018 Results for this 5:05 AM CDT procedure are in the results section. COMPLETE BLOOD COUNT Routine 03/28/2018 Results for this 5:05 AM CDT procedure are in the results section. GLUCOSE POC Routine 03/28/2018 Results for this 12:11 AM CDT procedure are in the results section. GLUCOSE POC Routine 03/27/2018 Results for this 9:01 PM CDT procedure are in the results section. GLUCOSE POC Routine 03/27/2018 Results for this 5:05 PM CDT procedure are in the results section. RESPIRATORY CRITERIA Routine 03/27/2018 2:53 PM CDT MISCELLANEOUS Routine 03/27/2018 Results for this MICROBIOLOGY 1:20 PM CDT procedure are in the results section. GASTROINTESTINAL PATHOGEN Routine 03/27/2018 Results for this PANEL BY PCR 1:20 PM CDT procedure are in the results section. GLUCOSE POC Routine 03/27/2018 Results for this 11:14 AM CDT procedure are in the results section. ECHO COMPLETE W DOPPLER Routine 03/27/2018 Results for this AND COLOR FLOW 8:47 AM CDT procedure are in the results section. GLUCOSE POC Routine 03/27/2018 Results for this 7:31 AM CDT procedure are in the results section. GLUCOSE POC Routine 03/27/2018 Results for this 3:09 AM CDT procedure are in the results section. THYROID STIMULATING Routine 03/27/2018 Results for this HORMONE 1:50 AM CDT procedure are in the results section. MAGNESIUM Routine 03/27/2018 Results for this 1:50 AM CDT procedure are in the results section. LIPID PANEL Routine 03/27/2018 Results for this 1:50 AM CDT procedure are in the results section. CBC AND DIFF (MANUAL DIFF Routine 03/27/2018 Results for this IF NECESSARY) 1:50 AM CDT procedure are in the results section. BASIC METABOLIC PANEL Routine 03/27/2018 Results for this 1:50 AM CDT procedure are in the results section. GLUCOSE POC Routine 03/27/2018 Results for this 12:08 AM CDT procedure are in the results section. GLUCOSE POC Routine 03/26/2018 Results for this 8:50 PM CDT procedure are in the results section. RESPIRATORY PANEL BY PCR Routine 03/26/2018 Results for this 8:50 PM CDT procedure are in the results section. GLUCOSE POC Routine 03/26/2018 Results for this 5:47 PM CDT procedure are in the results section. CPAP Routine 03/26/2018 5:46 PM CDT THYROID CASCADE STAT 03/26/2018 Results for this 4:22 PM CDT procedure are in the results section. CT ANGIO CHEST STAT 03/26/2018 Results for this 3:38 PM CDT procedure are in the results section. HEMOGLOBIN A1C STAT 03/26/2018 Results for this 1:57 PM CDT procedure are in the results section. CBC AND DIFF (MANUAL DIFF STAT 03/26/2018 Results for this IF NECESSARY) 1:57 PM CDT procedure are in the results section. XR CHEST SINGLE VIEW STAT 03/26/2018 Results for this FRONTAL 1:24 PM CDT procedure are in the results section. PROCALCITONIN Add-On 03/26/2018 Results for this 1:15 PM CDT procedure are in the results section. TROPONIN STAT 03/26/2018 Results for this 1:15 PM CDT procedure are in the results section. NTPROBNP STAT 03/26/2018 Results for this 1:15 PM CDT procedure are in the results section. COMPREHENSIVE METABOLIC STAT 03/26/2018 Results for this PANEL 1:15 PM CDT procedure are in the results section. ECG STAT 03/26/2018 Results for this 12:55 PM CDT procedure are in the results section. from Last 3 Months Results * GLUCOSE POC (03/30/2018 11:23 AM) Only the most recent of 20 results within the time period is included. Glucose POC 198 (H) 70 - 100 mg/dL [facility] Performing Organization Address City/State/Zipcode Phone Number [facility] [address] [place] [address] * CBC and Diff (manual diff if necessary) (03/30/2018 4:47 AM) Only the most recent of 4 results within the time period is included. WBC 8.28 4.00 - 11.00 TH/uL [facility] RBC 5.03 (H) 4.00 - 5.00 MIL/uL [facility] Hemoglobin 12.2 12.0 - 15.0 g/dL [facility] Hematocrit 39 36 - 45 % [facility] MCV 77 (L) 80 - 99 fL [facility] MCH 24 (L) 27 - 34 pg [facility] MCHC 32 32 - 36 % [facility] RDW 16.3 (H) 9.0 - 14.5 % [facility] Platelet Count 291 140 - 400 TH/uL [facility] MPV 10.2 9.4 - 12.3 fL [facility] Nucleated RBCs 0 0 - 0 /100 [facility] % Neutrophils 64 45 - 78 % [facility] %Lymphocytes 26 15 - 47 % [facility] %Monocytes 6 0 - 12 % [facility] %Eosinophils 1 0 - 7 % [facility] %Basophils 1 0 - 2 % [facility] % Imm Grans 1 0 - 1 % [facility] # Granulocytes 5.42 1.70 - 6.80 TH/uL [facility] # Lymphocytes 2.18 1.00 - 3.30 TH/uL [facility] # Monocytes 0.53 0.20 - 0.90 TH/uL [facility] # Eosinophils 0.11 0.00 - 0.40 TH/uL [facility] # Basophils 0.04 0.00 - 0.10 TH/uL [facility] Specimen Blood Narrative Performed At This order is a replacement of the rejected order with accession number [facility] [id number]. LAB Performing Organization Address [facility] Phone Number [facility] [phone] [place] [address] * Magnesium (03/30/2018 3:30 AM) Only the most recent of 4 results within the time period is included. Magnesium 1.9 1.4 - 2.7 mg/dL [facility] Specimen Blood Performing Organization Address [facility] Phone Number [facility] [address] [place] [address] * Comprehensive Metabolic Panel (03/30/2018 3:30 AM) Only the most recent of 2 results within the time period is included. Sodium 136 133 - 147 MEQ/L [facility] Potassium 4.2 3.5 - 5.3 MEQ/L [facility] Chloride 99 96 - 112 MEQ/L [facility] Carbon Dioxide 26 20 - 32 MEQ/L [facility] Anion Gap 11 5 - 17 [facility] Calcium 10.1 8.4 - 10.5 mg/dL [facility] Glucose 195 (H) 70 - 100 mg/dL [facility] Protein Total Serum 7.0 6.0 - 8.2 g/dL [facility] Albumin 4.1 3.5 - 5.0 g/dL [facility] Alkaline Phosphatase 97 42 - 140 IU/L [facility] Alanine Aminotransferase 24Comment: ALT reference range 0 - 34 IU/L [facility] changed on 03-03-2018 LAB Aspartate 31 15 - 46 IU/L [facility] Aminotransferase LAB Bilirubin Total 1.2 0.2 - 1.3 mg/dL [facility] Blood Urea Nitrogen 18 7 - 26 mg/dL [facility] Creatinine 0.7 0.4 - 1.1 mg/dL [facility] GFR Female AA 101 60 - 200 [facility] Comment: LAB Chronic Kidney Disease less than 60 mL/min/1.73 sq.m Kidney failure less than 15 mL/min/1.73 sq.m GFR Female Non-AA 84 60 - 200 [facility] Comment: LAB Chronic Kidney Disease less than 60 mL/min/1.73 sq.m Kidney failure less than 15 mL/min/1.73 sq.m Specimen Blood Performing Organization Address City/State/Zipcode Phone Number [facility] [address] [place] [address] [phone] * Basic Metabolic Panel (03/29/2018 8:15 AM) Only the most recent of 3 results within the time period is included. Sodium 136 133 - 147 MEQ/L [facility] Potassium 4.3 3.5 - 5.3 MEQ/L [facility] Chloride 100 96 - 112 MEQ/L [facility] Carbon Dioxide 24 20 - 32 MEQ/L [facility] Anion Gap 12 5 - 17 [facility] Calcium 10.1 8.4 - 10.5 mg/dL [facility] Glucose 207 (H) 70 - 100 mg/dL [facility] Blood Urea Nitrogen 17 7 - 26 mg/dL [facility] Creatinine 0.7 0.4 - 1.1 mg/dL [facility] GFR Female AA 101 60 - 200 [facility] Comment: LAB Chronic Kidney Disease less than 60 mL/min/1.73 sq.m Kidney failure less than 15 mL/min/1.73 sq.m GFR Female Non-AA 84 60 - 200 [facility] Comment: LAB Chronic Kidney Disease less than 60 mL/min/1.73 sq.m Kidney failure less than 15 mL/min/1.73 sq.m Specimen Blood Performing Organization Address [facility] Phone Number [facility] [address] [place] [address] [phone] * Arterial Blood Gas (03/28/2018 5:11 PM) Sample Site RADIAL L [facility] Fraction of Inspired 0.21 [facility] Oxygen LAB Total Rate 20 bpm [facility] PO2 Arterial 74 (L) 80 - 100 mm Hg [facility] pCO2 Arterial 34 (L) 35 - 45 mm Hg [facility] pH Arterial 7.47 (H) 7.36 - 7.44 units [facility] Bicarbonate 24.7 19.0 - 29.0 MEQ/L [facility] Base Excess 1.5 -3.0 - 3.0 MEQ/L [facility] Performing Organization Address [facility] Phone Number [facility] [address] [place] [address] [phone] * Procalcitonin (03/28/2018 5:05 AM) Only the most recent of 2 results within the time period is included. Procalcitonin 0.31 (H) 0.00 - 0.10 ng/mL [facility] Comment: REGIONAL PCT Value LABORATORIES Interpretation 0.10 - 0.25Lo w risk for bacterial infection >0.25 Increased risk lower respiratory infection >0.50 Increased risk sepsis >2.00 High risk sepsis If Procalcitonin is >0.25, repeat in 48 hours to guide antibiotic cessation in lower respiratory tract infection. If Procalcitonin is >0.5, repeat in 24 hours to guide antibiotic cessation in sepsis. Procalcitonin is most useful when levels are performed serially with consideration of clinical data. Decisions regarding antibiotic use should not be based exclusively on procalcitonin levels. Specimen Blood Performing Organization Address City/[facility]/Zipcode Phone Number [facility] [address] [place] [address] [phone] LABORATORIES * Complete Blood Count (03/28/2018 5:05 AM) WBC 6.57 4.00 - 11.00 TH/uL [facility] RBC 4.56 4.00 - 5.00 MIL/uL [facility] Hemoglobin 11.3 (L) 12.0 - 15.0 g/dL [facility] Hematocrit 36 36 - 45 % [facility] MCV 78 (L) 80 - 99 fL [facility] MCH 25 (L) 27 - 34 pg [facility] MCHC 32 32 - 36 % [facility] RDW 16.1 (H) 9.0 - 14.5 % [facility] Platelet Count 226 140 - 400 TH/uL [facility] MPV 10.3 9.4 - 12.3 fL [facility] Nucleated RBCs 0 0 - 0 /100 [facility] Specimen Blood Performing Organization Address City/[facility]/Zipcode Phone Number [facility] [address] [place] [address] * Gastrointestinal Pathogen Panel by PCR (03/27/2018 1:20 PM) Campylobacter Not Detected Not Detected [facility] Clostridium difficile Not DetectedComment: Detection Not Detected [facility] toxin A/B of C. difficile may reflect REGIONAL asymptomatic carriage or C. LABORATORIES difficile-associated diarrhea. Plesiomonas shigelloides Not Detected Not Detected [facility] Salmonella Detected (A) Not Detected [facility] Vibrio Not Detected Not Detected [facility] Vibrio cholerae Not Detected Not Detected [facility] Yersinia enterocolitica Not Detected Not Detected [facility] Enteroaggregative E. coli Not Detected Not Detected [facility] ([facility]) [facility] Enteropathogenic E. coli Not Detected Not Detected [facility] ([facility]) [facility] Enterotoxigenic E. coli Not Detected Not Detected [facility] ([facility]) [facility] Shiga-like Not Detected Not Detected [facility] toxin-producing E. coli [facility] ([facility]) [facility] E. coli O157 Not Detected Not Detected [facility] Shigella/Enteroinvasive Not Detected Not Detected [facility] E. coli (EIEC) [facility] Cryptosporidium Not Detected Not Detected [facility] Cyclospora cayetanensis Not Detected Not Detected [facility] Entamoeba histolytica Not Detected Not Detected [facility] Giardia lamblia Not Detected Not Detected [facility] Adenovirus F 40/41 Not Detected Not Detected [facility] Astrovirus Not Detected Not Detected [facility] Norovirus GI/GII Not Detected Not Detected [facility] Rotavirus A Not Detected Not Detected [facility] Sapovirus Not Detected Not Detected [facility] Specimen Stool Performing Organization Address City/[facility]/Zipcode Phone Number [address] [address] [phone] LABORATORIES * Miscellaneous Microbiology (03/27/2018 1:20 PM) Isolate 1 Salmonella bhakti (A) [facility] Isolate 1 Test performed at [facility] [address] [facility] [address] [place] [address] (A) Specimen Stool Organism Antibiotic Method Susceptibility Salmonella bhakti AMPICILLIN >16: Intermediate Salmonella bhakti BACTRIM/SEPTRA >2/38: Resistant Salmonella bhakti CIPROFLOXACIN 0.25: Sensitive Performing Organization Address [facility] Phone Number [address] [address] LABORATORIES * Echo Complete with Doppler and Color Flow (03/27/2018 8:47 AM) Ejection Fraction 75 % [facility] Impressions Performed At 1. Hyperdynamic left ventricular systolic function, with an estimated PROSOLV ejection fraction of 75%. 2. Normal right ventricular size and systolic function. 3. No significant valvular abnormalities. 4. Estimated central venous and mean left atrial pressures are normal. Dr. Mynor Hayes MD (Electronically Signed) Final Date:27 March 2018 09:18 Narrative Performed At [facility] ECHOCARDIOGRAM REPORT [facility] Name:MICKI LUJAN Date:03/27/2018 08:19 Chart #:[id number] : 1950 Location:[facility] IPSono: [email or web address] Age: 67 Gender:FReferring: CLAU ANDREA Room #: 212 Fellow: Indication:Dyspnea, unspecified Procedure: [id number] Complete Echo 2D/Colorflow/Doppler BP: 144 / 76HR:70Ht: 66 Wt:240BSA 2.3 : 2D ECHO MEASUREMENTS LV Diastolic Diameter Bas3.7 cm3.6-5.4LVPW Diastolic Thickness 1.1 cm0.6-1.1 LV Systolic Diameter Base1.5 cm2.3-4.0Aorta at Sinuses Diameter3.3 cm2.1-3.5 LA Systolic Diameter LX3.8 cm2.3-3.8Ascending Aorta Diameter 3.2 cm2.1-3.4 IVS Diastolic Thickness1.1 cm0.6-1.1 AORTIC VALVE DOPPLER AV Peak Velocity 145 cm/s LVOT AV Nam Ratio0.69 AV Peak Gradient 8.4 mmHg MITRAL VALVE DOPPLER Mitral E Point Gfjofwdu17.8 cm/sMitral E to A Ratio0.81 MitralA Point Velocity 65.2 cm/s WALL SEGMENT ANALYSIS: ROUTINE LVSI : 1%FM :100 LAD: 1LCX : 1RCA : 1 FINDINGS LV Ejection Fraction: 75 Hyperdynamic left ventricular systolic function, with an estimated ejection fraction of 75%. Normal wall thickness. Normal wall motion. Normal left ventricular dimensions. Normal right ventricular size and systolic function. Normal right and left atrial size. LA volume index=13 ml/m2. Mild diastolic dysfunction - normal LA pressure with mild abnormality in LV relaxation. Sclerotic aortic valve without regurgitation. Normal mitral valve with trivial regurgitation. Normal pulmonic valve with trivial regurgitation. Normal tricuspid valve with trivial regurgitation. Unable to accurately estimate pulmonary artery pressure. No pericardial effusion. IVC is responsive to inspiration indicating normal RA pressure. Normal dimensions of the ascending aorta. No evidence of intracardiac masses or thrombi. Procedure Note Interface, External Ris In - 03/27/2018 9:19 AM CDT ECHOCARDIOGRAM REPORT [facility] Name: MICKI LUJAN Date: 03/27/2018 08:19 Chart #: [id number] : 1950 Location: [facility] IP Sono: [email or web address] Age: 67 Gender: F Referring: ANDREA OLGUIN Room #: 212 Fellow: Indication:Dyspnea, unspecified Procedure: 34926 Complete Echo 2D/Colorflow/Doppler BP: 144 / 76 HR: 70 Ht: 66 Wt: 240 BSA 2.3 : 2D ECHO MEASUREMENTS LV Diastolic Diameter Bas 3.7 cm 3.6-5.4 LVPW Diastolic Thickness 1.1 cm 0.6-1.1 LV Systolic Diameter Base 1.5 cm 2.3-4.0 Aorta at Sinuses Diameter 3.3 cm 2.1-3.5 LA Systolic Diameter LX 3.8 cm 2.3-3.8 Ascending Aorta Diameter 3.2 cm 2.1-3.4 IVS Diastolic Thickness 1.1 cm 0.6-1.1 AORTIC VALVE DOPPLER AV Peak Velocity 145 cm/s LVOT AV Nam Ratio 0.69 AV Peak Gradient 8.4 mmHg MITRAL VALVE DOPPLER Mitral E Point Velocity 52.8 cm/s Mitral E to A Ratio 0.81 Mitral A Point Velocity 65.2 cm/s WALL SEGMENT ANALYSIS: ROUTINE LVSI : 1 %FM : 100 LAD : 1 LCX : 1 RCA : 1 FINDINGS LV Ejection Fraction: 75 Hyperdynamic left ventricular systolic function, with an estimated ejection fraction of 75%. Normal wall thickness. Normal wall motion. Normal left ventricular dimensions. Normal right ventricular size and systolic function. Normal right and left atrial size. LA volume index=13 ml/m2. Mild diastolic dysfunction - normal LA pressure with mild abnormality in LV relaxation. Sclerotic aortic valve without regurgitation. Normal mitral valve with trivial regurgitation. Normal pulmonic valve with trivial regurgitation. Normal tricuspid valve with trivial regurgitation. Unable to accurately estimate pulmonary artery pressure. No pericardial effusion. IVC is responsive to inspiration indicating normal RA pressure. Normal dimensions of the ascending aorta. No evidence of intracardiac masses or thrombi. IMPRESSION 1. Hyperdynamic left ventricular systolic function, with an estimated ejection fraction of 75%. 2. Normal right ventricular size and systolic function. 3. No significant valvular abnormalities. 4. Estimated central venous and mean left atrial pressures are normal. Dr. Mynor Hayes MD (Electronically Signed) Final Date: 27 March 2018 09:18 Performing Organization Address [facility] [place] Number PROSOLV * Thyroid Stimulating Hormone (03/27/2018 1:50 AM) Thyroid Stimulating 1.79 0.47 - 4.68 uIU/mL [facility] Hormone LAB Specimen Blood Performing Organization Address [facility] [place] Number [facility] [address] [place] [address] * Lipid Panel (03/27/2018 1:50 AM) Cholesterol 174 100 - 200 mg/dL [facility] HDL Cholesterol 36 (L) 40 - 110 mg/dL [facility] Non-HDL Cholesterol 138 (H) 0 - 130 mg/dL [facility] Triglycerides 322 (H) 0 - 150 mg/dL [facility] LDL Cholesterol 74 0 - 99 mg/dL [facility] Cholesterol/HDL Ratio 4.8 (H) 0.0 - 4.5 [facility] Specimen Blood Performing Organization Address [facility] [place] Phone Number [place] [address] [place] [address] LABORATORIES * Respiratory Panel by PCR (03/26/2018 8:50 PM) Adenovirus Not Detected Not Detected [facility] Coronavirus Not Detected Not Detected [facility] Human Metapneumovirus Not Detected Not Detected [facility] (hMPV) [facility] Human Rhinovirus Not Detected Not Detected [facility] Enterovirus [facility] Influenza A Not Detected Not Detected [facility] Influenza B Not Detected Not Detected [facility] Parainfluenza Virus Not Detected Not Detected [facility] Respiratory Syncytial Not Detected Not Detected [facility] Virus Pl [facility] Bordetella pertussis Not Detected Not Detected [facility] Chlamydophila pneumoniae Not Detected Not Detected [facility] Mycoplasma pneumoniae Not Detected Not Detected [facility] Source NASOPHAR [facility] Specimen Nasopharynx, Performing Organization Address City/State/Zipcode Phone Number [facility] [address] [place] [address] LABORATORIES * Thyroid [place] (03/26/2018 4:22 PM) Thyroid Stimulating 2.67 0.47 - 4.68 uIU/mL [facility] Hormone LAB Specimen Blood Performing Organization Address City/[facility]/Zipcode Phone Number [facility] [address] [place] [address] * CT Angio Chest (03/26/2018 3:38 PM) Impressions Performed At 1.Negative for acute pulmonary embolism. [facility] 2.Patchy groundglass attenuation throughout both lungs, which may represent mild atelectasis, edema, or pneumonitis. 3.Hepatic steatosis and probable hepatomegaly. READING SITE: [employer] Narrative Performed At Patient: ISI LUJAN Sex#:F # 1950 Malia#:[id number] Location:[facility]Accession#: [id number] Procedure Requested:[id number] CT ANGIO CHEST Reason for Exam:shortness of breath Exam Ordered: Exam Date/Time: Begin exam date/time: EXAMINATION: CTA OF THE THORAX WITH CONTRAST (PULMONARY EMBOLISM PROTOCOL) CLINICAL INDICATION: shortness of breath; TECHNIQUE: Helical axial CT angiographic images through the thorax were obtained following the uneventful intravenous administration of contrast. Dose reduction techniques were utilized. Source data were reconstructed into Maximum Intensity Projections (MIPs) in the sagittal and coronal planes. COMPARISON: None FINDINGS: No evidence of acute pulmonary embolus. Size the heart, aorta, main pulmonary artery are all within normal limits. No pericardial or pleural effusion. Small amount of consolidation within the lingula, left lower lobe, and right middle lobe is favored represent atelectasis. There is scattered patchy groundglass attenuation present throughout both lungs, which may represent mild edema, pneumonitis, or atelectasis. There is a 4 mm subpleural pulmonary nodule within the right upper lobe, there is a groundglass attenuation. No bronchiectasis. Central airways appear unremarkable. Esophagus is of normal course and caliber. No pathologically enlarged mediastinal or hilar lymph nodes. The visualized portions of thyroid gland are within normal limits. Visualized portions of the upper abdomen demonstrate probable hepatic steatosis and probable hepatomegaly. Bone windows demonstrate no gross osseous pathology. Procedure Note Interface, Rad Results In - 03/26/2018 4:02 PM CDT Patient: MICKI LUJAN Sex#: F # 1950 Malia#: [id number] Location: [place] [address] Procedure Requested: [id number] CT ANGIO CHEST Reason for Exam: shortness of breath Exam Ordered: 03/26/2018 1437 Exam Date/Time: 03/26/2018 1538 Begin exam date/time: 03/26/2018 1522 EXAMINATION: CTA OF THE THORAX WITH CONTRAST (PULMONARY EMBOLISM PROTOCOL) CLINICAL INDICATION: shortness of breath; TECHNIQUE: Helical axial CT angiographic images through the thorax were obtained following the uneventful intravenous administration of contrast. Dose reduction techniques were utilized. Source data were reconstructed into Maximum Intensity Projections (MIPs) in the sagittal and coronal planes. COMPARISON: None FINDINGS: No evidence of acute pulmonary embolus. Size the heart, aorta, main pulmonary artery are all within normal limits. No pericardial or pleural effusion. Small amount of consolidation within the lingula, left lower lobe, and right middle lobe is favored represent atelectasis. There is scattered patchy groundglass attenuation present throughout both lungs, which may represent mild edema, pneumonitis, or atelectasis. There is a 4 mm subpleural pulmonary nodule within the right upper lobe, there is a groundglass attenuation. No bronchiectasis. Central airways appear unremarkable. Esophagus is of normal course and caliber. No pathologically enlarged mediastinal or hilar lymph nodes. The visualized portions of thyroid gland are within normal limits. Visualized portions of the upper abdomen demonstrate probable hepatic steatosis and probable hepatomegaly. Bone windows demonstrate no gross osseous pathology. IMPRESSION 1. Negative for acute pulmonary embolism. 2. Patchy groundglass attenuation throughout both lungs, which may represent mild atelectasis, edema, or pneumonitis. 3. Hepatic steatosis and probable hepatomegaly. READING SITE: [employer] Performing Organization Address City/[facility]/Zipcode Phone Number SAM * Hemoglobin A1C (03/26/2018 1:57 PM) Hemoglobin A1C 8.1 (H) 4.0 - 5.6 % [facility] Comment: REGIONAL Non-diabetic LABORATORIES 4.0 - 5.6 % Prediabetes 5.7 - 6.4 % Diabetes >=6.5 % Specimen Blood Performing Organization Address City/[facility]/Zipcode Phone Number [facility] [address] [place] [address] LABORATORIES * XR Chest single view frontal (03/26/2018 1:24 PM) Impressions Performed At No acute disease. [facility] Narrative Performed At Patient: ISI LUJAN Sex#:F # 1950 Malia#:[id number] Location:[facility]-08Accession#: [id number] Procedure Requested:[id number] XR CHEST SINGLE VIEW FRONTAL Reason for Exam:cough Exam Ordered:03/26/20181257 Exam Date/Time:4 Begin exam date/time: Reading Site: [facility]. XR CHEST SINGLE VIEW FRONTAL, 03/26/2018 1:24 PM Reason for Examination: cough Findings:The left central line terminates near the superior cavoatrial junction. The heart is normal in size. Mediastinal contours are within normal limits. Pulmonary vessels are normal. The lungs are clear.No pleural abnormalities are identified. Procedure Note Interface, Rad Results In - 03/26/2018 2:13 PM CDT Patient: MICKI LUJAN Sex#: F # 1950 Malia#: [id number] Location: [facility] Procedure Requested: [id number] XR CHEST SINGLE VIEW FRONTAL Reason for Exam: cough Exam Ordered: 03/26/2018 1257 Exam Date/Time: 03/26/2018 1324 Begin exam date/time: 03/26/2018 1305 Reading Site: [facility]. XR CHEST SINGLE VIEW FRONTAL, 03/26/2018 1:24 PM Reason for Examination: cough Findings: The left central line terminates near the superior cavoatrial junction. The heart is normal in size. Mediastinal contours are within normal limits. Pulmonary vessels are normal. The lungs are clear. No pleural abnormalities are identified. IMPRESSION No acute disease. Performing Organization Address [facility] [place] Phone Number [place] * Troponin (03/26/2018 1:15 PM) Troponin <0.01 0.00 - 0.03 ng/mL [facility] Comment: LAB Troponin ValueInterpretation 0.00 - 0.03 Healthy 0.04 - 0.12 Increased Cardiac Risk >0.12M yocardial Infarction Troponin may not become elevated until 6 to 8 hours after onset of symptoms. Specimen Blood Performing Organization Address [facility] [place] Phone Number [facility] [address] [place] [address] * NTproBNP (03/26/2018 1:15 PM) NTproBNP 28 pg/mL [facility] Comment: LAB NT-proBNPReference Ranges: <50 yr<450 pg/mL 50-75 yr<900 pg/mL >75 yr <1800 pg/mL A cutoff value of 1200 pg/mL is recommended in patients 50 to 70 years of age with a GFR between 30 and 60.NT-proBNP is unreliable in patients with GFR <30. 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1950 Requested By: VALDO PARK Order Number: [id number] MD: Measurements IntervalsAxis Rate: 91 P:29 AL: 176QRS:6 QRSD: 68 T:88 QT: 352 QTc:434 Interpretive Statements SINUS RHYTHM BORDERLINE T ABNORMALITIES, ANT-LAT LEADS Procedure Note Interface, External Ris In - 03/26/2018 12:56 PM CDT [facility] ED Test Date: 2018-03-26 Pat Name: MICKI LUJAN Department: ER Room: [facility] Gender: Female 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
--- OUTSIDE RECORDS SUMMARY | 2018-06-23 06:10 | XMS REPORT | Encounter Summary ---
Author Author [facility] Organization [facility] Address Unknown Phone Unavailable Care Team Providers Care Emergency Room Rn Name Role Phone Adolfo Cardenas MD PCP Encounter Details Date Type Department Care Team Description 03/26/2018 Procedure Pass [facility] [id number] [place] [address] Social History Tobacco Use Types Packs/Day Years Used Date Former Smoker Cigarettes 0.25 3 03/25/1969 - 03/25/1972 Smokeless Tobacco: Never Used Comments: smoke pack a day for 6 months 40 years ago. Alcohol Use Drinks/Week oz/Week Comments Yes 2 drinks weekly. Sex Assigned at Date Recorded Not on file as of this encounter Plan of Treatment Not on fileas of this encounter Visit Diagnoses Not on filein this encounter
--- OUTSIDE RECORDS SUMMARY | 2018-06-23 06:10 | XMS REPORT | Encounter Summary ---
Author Author [facility] Organization [facility] Address Unknown Phone Unavailable Care Team Providers Care Operations Liaison Name Role Phone Adolfo Cardenas MD PCP Encounter Details Date Type Department Care Team Description 03/26/2018 Procedure Pass [facility] [id number] [place] [address] Social History Tobacco Use Types Packs/Day Years [...]
--- OUTSIDE RECORDS SUMMARY | 2018-06-23 06:10 | XMS REPORT | Encounter Summary ---
Author Author [facility] Organization [facility] Address Unknown Phone Unavailable Care Team Providers Care Management Trainee Marketing Name Role Phone Adolfo Cardenas MD PCP Reason for Visit * Reason Comments Shortness of Breath Short of breath at pain clinic. Pt states she is always on Cpap machine. PT on cpap upon arrival of EMS. * Auth/Cert Status Reason Specialty Diagnoses / Referred By Referred To Procedures Contact Contact Diagnoses Shortness of breath Dyspnea, unspecified type Shortness of breath Encounter Details Date Type Department Care Team Description 03/26/2018 [facility] Valdo [place] MD Shortness of breath - Encounter Hospital [address] [facility] (Primary Dx); 03/30/2018 [address] [place] [address] Dyspnea, [place] [address] type; [phone] Obesity, unspecified W classification, Anastasia bishop DO unspecified obesity type, [address] [place] [address] serious comorbidity [phone] [place] [address] [place] [address] [phone] Alejo Barraza DO [address] [place] [address] [phone] Social History Tobacco Use Types Packs/Day Years [...] Mass Index 36.75 03/30/2018 3:43 AM CDT in this encounter Discharge Summaries * Alejo Mancini DO - 03/30/2018 1:25 PM CDT Formatting of this note may be different from the original. [facility] Hospitalist - Discharge Summary Patient Name: Micki Kelley Account No: [id number] Date of : 1950 Date of Admission: 03/26/2018 12:46 PM Date of Discharge: 03/30/2018 1:34 PM Length of Stay: 1 Days Readmit Risk: 12 Primary Care Physician: Adolfo Cardenas MD; Reason for Hospital Admission and Brief Hospital Course: Ms. Kelley is a 67 y/ o female that was admitted with c/o dyspnea. She was referred from pain clinic. She was admitted and underwent CTA that was negative for PE. She was seen by pulmonary. She had ABG that was normal for her abg. Suspect that her dyspnea is multifactorial related to her obesity, GRACE, and marked deconditioning. She had a 6MWT and did not require oxygen. She has clinically improved and pulmonary s/ o. She also has noted diarrhea issues, has dx salmonella and was treated outpatient. Her stool was + here and ID consulted. It is likely chronic carrier. Stool culture has been obtained, but recommendations were to observe off antibiotics. We will f/u this outpatient. The patient's discharge plan was discussed fully with the patient, the patient' s family/friend, another physican and nursing staff. All questions were answered. Disposition: Discharged in stable condition to home. Problems Addressed During This Admission: Active Problems: Shortness of breath Essential hypertension Type 2 diabetes mellitus with hyperglycemia, without long-term current use of insulin (HCC) Hepatic steatosis S/P partial thyroidectomy Pain, neuropathic Hyperlipemia Overactive bladder Diarrhea Resolved Problems: * No resolved hospital problems. * Code Status: Full Code Recommended Diet: Diet-Low Fat/Chol, 2gm Na, Consistent Carbohydrate Activity/Restrictions: activity as tolerated Scheduled Follow Up Appointments/Studies ([facility] Providers): No future appointments. Additional Discharge Follow Up: Dr Adolfo Cardenas MD, primary care physician in 14 days. Additional Labs Appointments/Diagnostic Studies: None No Known Allergies Discharge Medications Unreviewed Medications Indication(s) ALPRAZolam 1 MG tablet Commonly known as: XANAX 1 mg, Oral, At bedtime aspirin 325 MG tablet 325 mg, Oral, Daily citalopram 10 mg tablet Commonly known as: CeleXA 10 mg diazePAM 5 MG tablet Commonly known as: VALIUM 5 mg, Oral, Daily dicyclomine 10 MG capsule Commonly known as: BENTYL 10 mg diphenoxylate-atropine 2.5-0.025 mg per tablet Commonly known as: LOMOTIL Take 1 Tablet by mouth 4 times daily as needed for Diarrhea/Loose Stools. docusate sodium 100 MG capsule Commonly known as: COLACE 100 mg estradiol 0.01 % (0.1 mg/gram) vaginal cream Commonly known as: ESTRACE Insert vaginally daily. gabapentin 600 MG tablet Commonly known as: NEURONTIN 600 mg, Oral, 3 times daily gemfibrozil 600 MG tablet Commonly known as: LOPID 600 mg, Oral, 2 times daily before meals hydroCHLOROthiazide 25 MG tablet Commonly known as: HYDRODIURIL 25 mg, Oral, Daily metFORMIN 500 MG tablet Commonly known as: GLUCOPHAGE 500 mg, Oral, 2 times daily with meals mirabegron 50 mg Tb24 tablet Commonly known as: MYRBETRIQ 50 mg oxybutynin 5 MG tablet Commonly known as: DITROPAN 5 mg, Oral, 2 times daily pantoprazole 40 MG tablet Commonly known as: PROTONIX 40 mg pramipexole 0.125 MG tablet Commonly known as: MIRAPEX 0.5 mg, Oral, 3 times daily simvastatin 40 MG tablet Commonly known as: ZOCOR 40 mg, Oral, Nightly zolpidem 12.5 MG CR tablet Commonly known as: AMBIEN CR 12.5 mg, Oral, Nightly PRN * ZOVIRAX 5 % cream Generic drug: acyclovir Topical, As directed * acyclovir 200 MG capsule Commonly known as: ZOVIRAX 200 mg, Oral, Daily * There are duplicate medications prescribed to the patient Vital Signs: Blood Pressure: BP: (!) 142/64 Pulse: Pulse: 67 Temperature: Temp: 36.7 C (98 F) Respirations: Resp: 20 Admission Weight: Weight: 108.9 kg (240 lb 1.3 oz) O2 Saturation: SpO2: 92 % Discharge Weight: Weight: 103.3 kg (227 lb 11.2 oz) BMI: Body mass index is 36.75 kg/m. Physical Exam: Gen: Calm, cooperative CV: RRR, S1 & S2 normal, no murmurs, gallops, or rubs, 2+ pulses all extremities Resp: CTAB, no wheezes, crackles, or rhonchi Abd: S/ND/NT, +BS Ext: No c/c/e Skin: Warm, dry, & intact with no obvious rashes or significant lesions Neuro: A/Ox4, no focal neurologic deficits Labs - Last 36 hours: Recent Results (from the past 36 hour(s)) GLUCOSE POC Collection Time: 03/29/18 7:24 AM Result Value Ref Range Glucose POC 229 (H) 70 - 100 mg/dL CBC and Diff (manual diff if necessary) Collection Time: 03/29/18 8:15 AM Result Value Ref Range WBC 7.60 4.00 - 11.00 TH/uL RBC 4.76 4.00 - 5.00 MIL/uL Hemoglobin 11.7 (L) 12.0 - 15.0 g/dL Hematocrit 37 36 - 45 % MCV 78 (L) 80 - 99 fL MCH 25 (L) 27 - 34 pg MCHC 32 32 - 36 % RDW 16.3 (H) 9.0 - 14.5 % Platelet Count 242 140 - 400 TH/uL MPV 9.9 9.4 - 12.3 fL Nucleated RBCs 0 0 - 0 /100 % Neutrophils 69 45 - 78 % %Lymphocytes 22 15 - 47 % %Monocytes 7 0 - 12 % %Eosinophils 1 0 - 7 % %Basophils 0 0 - 2 % % Imm Grans 1 0 - 1 % # Granulocytes 5.29 1.70 - 6.80 TH/uL # Lymphocytes 1.68 1.00 - 3.30 TH/uL # Monocytes 0.51 0.20 - 0.90 TH/uL # Eosinophils 0.09 0.00 - 0.40 TH/uL # Basophils 0.03 0.00 - 0.10 TH/uL Basic Metabolic Panel Collection Time: 03/29/18 8:15 AM Result Value Ref Range Sodium 136 133 - 147 MEQ/L Potassium 4.3 3.5 - 5.3 MEQ/L Chloride 100 96 - 112 MEQ/L Carbon Dioxide 24 20 - 32 MEQ/L Anion Gap 12 5 - 17 Calcium 10.1 8.4 - 10.5 mg/dL Glucose 207 (H) 70 - 100 mg/dL Blood Urea Nitrogen 17 7 - 26 mg/dL Creatinine 0.7 0.4 - 1.1 mg/dL GFR Female AA 101 60 - 200 GFR Female Non-AA 84 60 - 200 Magnesium Collection Time: 03/29/18 8:15 AM Result Value Ref Range Magnesium 1.9 1.4 - 2.7 mg/dL GLUCOSE POC Collection Time: 03/29/18 11:41 AM Result Value Ref Range Glucose POC 202 (H) 70 - 100 mg/dL GLUCOSE POC Collection Time: 03/29/18 4:34 PM Result Value Ref Range Glucose POC 193 (H) 70 - 100 mg/dL GLUCOSE POC Collection Time: 03/29/18 8:28 PM Result Value Ref Range Glucose POC 219 (H) 70 - 100 mg/dL GLUCOSE POC Collection Time: 03/30/18 12:27 AM Result Value Ref Range Glucose POC 205 (H) 70 - 100 mg/dL Comprehensive Metabolic Panel Collection Time: 03/30/18 3:30 AM Result Value Ref Range Sodium 136 133 - 147 MEQ/L Potassium 4.2 3.5 - 5.3 MEQ/L Chloride 99 96 - 112 MEQ/L Carbon Dioxide 26 20 - 32 MEQ/L Anion Gap 11 5 - 17 Calcium 10.1 8.4 - 10.5 mg/dL Glucose 195 (H) 70 - 100 mg/dL Protein Total Serum 7.0 6.0 - 8.2 g/dL Albumin 4.1 3.5 - 5.0 g/dL Alkaline Phosphatase 97 42 - 140 IU/L Alanine Aminotransferase 24 0 - 34 IU/L Aspartate Aminotransferase 31 15 - 46 IU/L Bilirubin Total 1.2 0.2 - 1.3 mg/dL Blood Urea Nitrogen 18 7 - 26 mg/dL Creatinine 0.7 0.4 - 1.1 mg/dL GFR Female AA 101 60 - 200 GFR Female Non-AA 84 60 - 200 Magnesium Collection Time: 03/30/18 3:30 AM Result Value Ref Range Magnesium 1.9 1.4 - 2.7 mg/dL CBC and Diff (manual diff if necessary) Collection Time: 03/30/18 4:47 AM Result Value Ref Range WBC 8.28 4.00 - 11.00 TH/uL RBC 5.03 (H) 4.00 - 5.00 MIL/uL Hemoglobin 12.2 12.0 - 15.0 g/dL Hematocrit 39 36 - 45 % MCV 77 (L) 80 - 99 fL MCH 24 (L) 27 - 34 pg MCHC 32 32 - 36 % RDW 16.3 (H) 9.0 - 14.5 % Platelet Count 291 140 - 400 TH/uL MPV 10.2 9.4 - 12.3 fL Nucleated RBCs 0 0 - 0 /100 % Neutrophils 64 45 - 78 % %Lymphocytes 26 15 - 47 % %Monocytes 6 0 - 12 % %Eosinophils 1 0 - 7 % %Basophils 1 0 - 2 % % Imm Grans 1 0 - 1 % # Granulocytes 5.42 1.70 - 6.80 TH/uL # Lymphocytes 2.18 1.00 - 3.30 TH/uL # Monocytes 0.53 0.20 - 0.90 TH/uL # Eosinophils 0.11 0.00 - 0.40 TH/uL # Basophils 0.04 0.00 - 0.10 TH/uL GLUCOSE POC Collection Time: 03/30/18 7:11 AM Result Value Ref Range Glucose POC 184 (H) 70 - 100 mg/dL GLUCOSE POC Collection Time: 03/30/18 11:23 AM Result Value Ref Range Glucose POC 198 (H) 70 - 100 mg/dL Imaging during this encounter: Ct Angio Chest Result Date: 03/26/2018 1. Negative for acute pulmonary embolism. 2. Patchy groundglass attenuation throughout both lungs, which may represent mild atelectasis, edema, or pneumonitis. 3. Hepatic steatosis and probable hepatomegaly. READING SITE: [facility] Xr Chest Single View Frontal Result Date: 03/26/2018 No acute disease. Cardiac Studies during this encouter: Echo Complete With Doppler And Color Flow Result Date: 03/27/2018 1. Hyperdynamic left ventricular systolic function, with an estimated ejection fraction of 75%. 2. Normal right ventricular size and systolic function. 3. No significant valvular abnormalities. 4. Estimated central venous and mean left atrial pressures are normal. Dr. Mynor Hayes MD (Electronically Signed) Final Date: 27 March 2018 09:18 Time spent on this inpatient discharge was greater than 30 minutes. Alejo Mancini DO [facility] Please page through physician paging. . in this encounter Discharge Instructions The following attachments cannot be sent through Care Everywhere.* Activity Tips , Diabetes ([facility]) * Diabetes and Heart Disease ([facility]) * Diabetes, Long-Term Complications ([facility]) * Diarrhea, Treating ([facility]) * Metformin tablets ([facility]) * GEMFIBROZIL ([place]) * Strength Training, Understanding ([facility]) * SALMONELLA GASTROENTERITIS (ADULT) ([place]) in this encounter Medications at Time of Discharge Medication Sig. Disp. Refills Start Date End Date aspirin 325 MG tablet Take 325 mg by mouth daily. citalopram (CELEXA) 10 mg 10 mg. 01/01/2018 tablet dicyclomine (BENTYL) 10 10 mg. 11/10/2017 MG capsule estradiol (ESTRACE) 0.01 Insert vaginally daily. 01/01/2018 % (0.1 mg/gram) vaginal cream gabapentin (NEURONTIN) Take 600 mg by mouth 3 600 MG tablet (three) times a day. mirabegron (MYRBETRIQ) 50 50 mg. 07/24/2017 mg Tb24 tablet pantoprazole (PROTONIX) 40 mg. 11/17/2017 40 MG tablet acyclovir (ZOVIRAX) 200 Take 200 mg by mouth MG capsule daily. acyclovir (ZOVIRAX) 5 % Apply topically as cream directed. ALPRAZolam (XANAX) 1 MG Take 1 mg by mouth at tablet bedtime. diazePAM (VALIUM) 5 MG Take 5 mg by mouth daily. tablet docusate sodium (COLACE) 100 mg. 100 MG capsule gemfibrozil (LOPID) 600 Take 600 mg by mouth 2 MG tablet (two) times a day before breakfast and dinner. hydroCHLOROthiazide Take 25 mg by mouth (HYDRODIURIL) 25 MG daily. tablet metformin (GLUCOPHAGE) Take 500 mg by mouth 2 500 mg tablet (two) times a day with meals. oxybutynin (DITROPAN) 5 Take 5 mg by mouth 2 MG tablet (two) times a day. pramipexole (MIRAPEX) Take 0.5 mg by mouth 3 0.125 MG tablet (three) times a day. simvastatin (ZOCOR) 40 MG Take 40 mg by mouth tablet nightly. zolpidem (AMBIEN CR) 12.5 Take 12.5 mg by mouth MG CR tablet nightly as needed for sleep. as of this encounter Progress Notes * Alejo Mancini DO - 03/29/2018 11:52 AM CDT Formatting of this note may be different from the original. [facility] Hospitalist - Progress Note Patient Name: Micki Kelley Account No: [id number] Date of : 1950 Date of Admission: 03/26/2018 12:46 PM Subjective Follow up regarding dyspnea/diarrhea Feeling better Still with significant SOA on exertion No fevers No cough Denies other symptoms Review of Systems: A 4-point review of systems was performed and was negative except as noted above. Objective Vital Signs: Temp: 36.6 C (97.8 F) Pulse: (!) 105 (just finished walking) Resp: 20 BP: (!) 145/64 SpO2: 95 % Height: 167.6 cm (5' 6") Weight: 108.9 kg ( 240 lb 1.3 oz) No intake/output data recorded. Physical Exam: Gen: Calm, cooperative CV: RRR, S1 & S2 normal, no murmurs, gallops, or rubs, 2+ pulses all extremities Resp: CTAB, no wheezes, crackles, or rhonchi Abd: S/ND/NT, +BS Ext: No c/c/e Skin: Warm, dry, & intact with no obvious rashes or significant lesions Neuro: A/Ox4, no focal neurologic deficits I have personally reviewed the patient's vital signs, laboratory/pathology/ culture results (as indicated), imaging studies (results were not discussed with the performing provider), current inpatient medications, customer service sales consultant notes, applications support specialist notes, prior admission/outpatient notes and prior to admission medications with pertainent findings noted within the assessment/plan. I have personally spoken with the patient, the patient's family/friend and nursing staff regarding this patient's case. Assessment/Plan Ms. Micki Kelley is a 67 y.o. female who was admitted on 03/26/2018 with Shortness of Breath. Problems addressed with today's visit include: Shortness of breath Reviewed echo, has mild diastolic dysfunction but no evidence of decompensated heart failure suspect deconditioning, GRACE, restrictive dz from obesity Appreciate pulmonary assistance, they have s/o Encourage ambulation monitor Type 2 diabetes mellitus with hyperglycemia, without long-term current use of insulin (HCC) Metformin was held since 03/21 d/t CT scan as outside ED A1C 8.1, needs better control Resume metformin after 48 hours of contrast accuchecks/SSI Essential hypertension Continue on home meds and monitor Overactive bladder Stable, continue home meds Hyperlipemia Continue Simvastatin and Gemfibrozil Pain, neuropathic Follows with pain management Continue Gabapentin, Mirapex for RLS S/P partial thyroidectomy Stable, monthly thyroid studies per pt report, no home meds F/u endo outpatient Hepatic steatosis Identified on CT at [facility] 10/26/17, LFTs normal on admission - Recommend weight loss Follow up with [facility] Diarrhea Dx salmonella in October, had diarrhea since Had colonoscopy outpatient ID consulted as GI pathogen + salmonella but likely carrier state D/w Dr. Peralta Stool culture ordered No antibiotics at this time See my orders for additional details regarding this patients treatment plan. Room: [address] [place] [address] Diet: Diet-Low Fat/Chol, 2gm Na, Consistent Carbohydrate Code Status: Full Code VTE Prevention: Appropriate VTE orders and/or documentation has been completed for this patient. Veloz Catheter: N/A Scheduled Meds: albuterol aspirin 325 mg Oral Daily citalopram 10 mg Oral Daily docusate sodium 100 mg Oral BID gabapentin 300 mg Oral TID gemfibrozil 600 mg Oral BID AC heparin (porcine) 5,000 Units Subcutaneous Q8H hydroCHLOROthiazide 25 mg Oral Daily insulin lispro 2-7 Units Subcutaneous 4 times daily before meals and nightly mirabegron 50 mg Oral Daily oxybutynin 5 mg Oral BID pantoprazole 40 mg Oral Daily pramipexole 1 mg Oral TID pravastatin 80 mg Oral Nightly Continuous Infusions: PRN Meds: ALPRAZolam, dextrose 50% OR dextrose OR dextrose 10%, glucagon OR glucagon, magnesium sulfate, potassium chloride, potassium chloride, potassium chloride in water, prochlorperazine, zolpidem Alejo Mancini DO [facility] Please page through physician paging. . * Helen Tello, RADIOGRAPHER CARDIAC CATHETERIZATION - 03/29/2018 10:34 AM CDT Formatting of this note may be different from the original. 6 MINUTE WALK Patient Name: Micki Kelley CPI: [id number] Date: March 29, 2018 Patient Active Problem List Diagnosis SNOMED CT(R) Shortness of breath DYSPNEA Abdominal bloating ABDOMINAL BLOATING Gastroesophageal reflux disease GASTROESOPHAGEAL REFLUX DISEASE Hepatic steatosis STEATOSIS OF LIVER Status post total right knee replacement HISTORY OF TOTAL KNEE ARTHROPLASTY S/P total knee arthroplasty HISTORY OF TOTAL KNEE ARTHROPLASTY S/P partial thyroidectomy HISTORY OF SUBTOTAL THYROIDECTOMY Sigmoid diverticulosis DIVERTICULOSIS OF SIGMOID COLON S/P hernia repair HISTORY OF HERNIA REPAIR Pain, neuropathic NEUROPATHIC PAIN Mild cardiomegaly CARDIOMEGALY Incomplete emptying of bladder INCOMPLETE EMPTYING OF BLADDER Chronic abdominal pain CHRONIC ABDOMINAL PAIN Essential hypertension ESSENTIAL HYPERTENSION Type 2 diabetes mellitus with hyperglycemia, without long-term current use of insulin (HCC) TYPE 2 DIABETES MELLITUS Hyperlipemia HYPERLIPIDEMIA Overactive bladder BLADDER MUSCLE DYSFUNCTION - OVERACTIVE Diarrhea DIARRHEA Ordering Physician:Dr Daren Sood Pre-Resting Pre-Resting Most Recent Value Resting FiO2 (%) 0.21 % Resting SpO2 94 % Resting Heart Rate 80 bps Resting RR 18 Walking Minute 1 Most Recent Value Amb Min 1 FiO2 (%) 0.21 % Amb Min 1 SpO2 94 % Amb Min 1 Heart Rate 105 bps Amb Min 1 Distance 100 feet Assisitive Device None Minute 2 Most Recent Value Amb Min 2 FiO2 (%) 0.21 % Amb Min 2 SpO2 95 % Amb Min 2 Heart Rate 102 bps Amb Min 2 Distance 196 feet Minute 3 Most Recent Value Amb Min 3 FiO2 (%) 0.21 % Amb Min 3 SpO2 95 % Amb Min 3 Heart Rate 101 bps Amb Min 3 Distance 292 feet Minute 4 Most Recent Value Amb Min 4 FiO2 (%) 0.21 % Amb Min 4 SpO2 96 % Amb Min 4 Heart Rate 104 bps Amb Min 4 Distance 388 feet Minute 5 Most Recent Value Amb Min 5 FiO2 (%) 0.21 % Amb Min 5 SpO2 97 % Amb Min 5 Heart Rate 103 bps Amb Min 5 Distance 484 feet Minute 6 Most Recent Value Amb Min 6 FiO2 (%) 0.21 % Amb Min 6 SpO2 96 % Amb Min 6 HR 102 bpm Amb Min 6 Distance 580 feet Post Resting Post-Resting Minute 1 Most Recent Value Rec Min 1 FiO2 (%) 0.21 % Rec Min 1 SpO2 96 % Rec Min 1 Heart Rate 100 bpm Rec Min 1 RR 20 Post-Resting Minute 2 Most Recent Value Rec Min 2 FiO2 (%) 0.21 % Rec Min 2 SpO2 96 % Rec Min 2 Heart Rate 100 bpm Rec Min 2 RR 20 Post-Resting Minute 3 Most Recent Value Rec Min 3 FiO2 (%) 0.21 % Rec Min 3 SpO2 97 % Rec Min 3 Heart Rate 98 bpm Rec Min 3 RR 20 Comments: Patient does not require oxygen. * Archana Garcia MD - 03/29/2018 7:57 AM CDT Formatting of this note may be different from the original. PULMONARY PROGRESS NOTE DATE: 03/29/2018 PATIENT NAME: Micki Kelley : 1950 AGE: 67 y.o. CC: SUBJECTIVE: Still having dyspnea on exertion. Per chart walked @ 400 witht complained of shortness of breathe. Allergies: Patient has no known allergies. CURRENT ACTIVE MEDICATIONS: aspirin 325 mg Oral Daily citalopram 10 mg Oral Daily docusate sodium 100 mg Oral BID gabapentin 300 mg Oral TID gemfibrozil 600 mg Oral BID AC heparin (porcine) 5,000 Units Subcutaneous Q8H hydroCHLOROthiazide 25 mg Oral Daily insulin lispro 2-7 Units Subcutaneous 4 times daily before meals and nightly mirabegron 50 mg Oral Daily oxybutynin 5 mg Oral BID pantoprazole 40 mg Oral Daily pramipexole 1 mg Oral TID pravastatin 80 mg Oral Nightly albuterol, ALPRAZolam, dextrose 50% OR dextrose OR dextrose 10%, glucagon OR glucagon, ipratropium-albuterol, magnesium sulfate, potassium chloride, potassium chloride, potassium chloride in water, prochlorperazine, zolpidem PHYSICAL EXAM: Temp: [36.4 C (97.5 F)-36.9 C (98.4 F)] 36.6 C (97.8 F) Pulse: [66-77] 75 Resp: [18] 18 BP: (129-145)/(62-65) 145/64 SpO2: 94 % SpO2 Av.8 % Min: 93 % Max: 97 % I/O last 3 completed shifts: In: 770.5 [P.O.:720; IV Piggyback:50.5] Out: - General Appearance: Alert, Cooperative, no distress On no O2, lying comfortably in bed Chest: Breath sounds: decreased but clear Respiratory effort:normal Heart:: RRR, S1 and S2 normal, no murmur Abdomen: Soft, non-tender Extremities: No edema, No cyanosis , no clubbing LAB DATA: Most Recent Result within the last 7 days Lab Units 03/28/18 1711 PH ARTERIAL units 7.47* PCO2 ARTERIAL mm Hg 34* PO2 ARTERIAL mm Hg 74* BICARBONATE MEQ/L 24.7 Most Recent Result within the last 7 days Lab Units 03/28/18 0505 03/27/18 0150 03/26/18 1357 WBC TH/uL 6.57 7.69 7.54 HEMOGLOBIN g/dL 11.3* 11.5* 11.5* HEMATOCRIT % 36 37 36 PLATELET COUNT TH/uL 226 270 230 No lab components to display Most Recent Result within the last 7 days Lab Units 03/28/18 0505 03/27/18 0150 03/26/18 1315 SODIUM MEQ/L 136 137 136 POTASSIUM MEQ/L 4.3 4.0 4.0 CHLORIDE MEQ/L 103 100 101 CARBON DIOXIDE MEQ/L 24 26 24 BLOOD UREA NITROGEN mg/dL 18 16 17 CREATININE mg/dL 0.6 0.7 0.6 CALCIUM mg/dL 9.4 9.4 9.0 MAGNESIUM mg/dL 2.4 1.6 -- GLUCOSE mg/dL 190* 175* 255* Most Recent Result within the last 7 days Lab Units 03/26/18 1315 ALKALINE PHOSPHATASE IU/L 88 ALANINE AMINOTRANSFERASE IU/L 32 ASPARTATE AMINOTRANSFERASE IU/L 33 PROTEIN TOTAL SERUM g/dL 6.7 Lab Results Component Value Date TROPONIN <0.01 03/26/2018 TROPONIN <0.01 12/12/2016 NTPROBNP 28 03/26/2018 Most Recent Result within the last 7 days Lab Units 03/28/18 0505 03/26/18 1315 PROCALCITONIN ng/mL 0.31* 0.42* No results found for: LACWBV, LACWBA No results found for this or any previous visit (from the past 168 hour(s)). Sputum with Gram Stain: No results found for this or any previous visit. Urine: No results found for this or any previous visit. IMAGINGS: No results found. ASSESSMENT: Active Hospital Problems Diagnosis Diarrhea Shortness of breath Essential hypertension Type 2 diabetes mellitus with hyperglycemia, without long-term current use of insulin (HCC) Hyperlipemia Overactive bladder Hepatic steatosis Pain, neuropathic S/P partial thyroidectomy PLAN: Pt is on no O2 and is no longer hypoxic. However, will do an official 6 minutes walk to assess her sat with activity. No need for nebs or albuterol. She does pant rather than wheeze. Clinical history and data all suggestive of marked deconditioning worsen by her obesity especially in the truncal area. Counseled patient for weight reduction. She need to increase progressively increase her level of activity. I have informed both patient and her of my finding I have emphasized the need for her to do more judicious diet and increase gradually her level of activity to get back into shape. Status post right total knee replacement with chronic pain and swelling may be a barrier As an outpatient full pulmonary function study can be obtained. Suspect she may have restrictive lung disease consistent with her obesity. Fermin sign off. If need further pulmonary input , please reconsult or call again. thanks Obstructive sleep apnea on CPAP of 10 cm. Patient has acclimated and can continue to use this. Electronically signed by Archana Garcia 03/29/2018 7:57 AM * Helen Tello, RADIOGRAPHER CARDIAC CATHETERIZATION - 03/28/2018 2:52 PM CDT Walked with patient 400 feet sat 97%, heart rate 92. Patient complained of shortness of breathe. * Alejo Mancini DO - 03/28/2018 8:52 AM CDT Formatting of this note may be different from the original. [facility] Hospitalist - Progress Note Patient Name: Micki Kelley Account No: [id number] Date of : 1950 Date of Admission: 03/26/2018 12:46 PM Subjective Follow up regarding dyspnea/diarrhea Diarrhea since Oct 31 (dx salmonella), took 1 week antibiotics Was seen by GI at and had colonoscopy Having 6-8 stools Staying in bed 20 hours per day with cpap Doesn't feel like going anywhere Stopped gabapentin 600mg TID cold turkey, but resumed at home at lower dose as still had some pills left Notes lots of stress at home No chest pain Review of Systems: A 4-point review of systems was performed and was negative except as noted above. Objective Vital Signs: Temp: 36.7 C (98 F) Pulse: 69 Resp: 18 BP: 112/46 SpO2: 95 % Height: 167.6 cm (5' 6") Weight: 108.9 kg (240 lb 1.3 oz) I/O last 24 Hours: In: 50.5 [IV Piggyback:50.5] Out: - Physical Exam: Gen: Calm, cooperative CV: RRR, S1 & S2 normal, no murmurs, gallops, or rubs, 2+ pulses all extremities Resp: CTAB, no wheezes, crackles, or rhonchi Abd: S/ND/NT, +BS Ext: No c/c/e Skin: Warm, dry, & intact with no obvious rashes or significant lesions Neuro: A/Ox4, no focal neurologic deficits I have personally reviewed the patient's vital signs, laboratory/pathology/ culture results (as indicated), imaging studies (results were not discussed with the performing provider), current inpatient medications, customer service sales consultant notes, applications support specialist notes, prior admission/outpatient notes and prior to admission medications with pertainent findings noted within the assessment/plan. I have personally spoken with the patient, the patient's family/friend and nursing staff regarding this patient's case. Assessment/Plan Ms. Micki Kelley is a 67 y.o. female who was admitted on 03/26/2018 with Shortness of Breath. Problems addressed with today's visit include: Shortness of breath Reviewed echo, has mild diastolic dysfunction but no evidence of decompensated heart failure Certainly could be component of deconditioning, GRACE, restrictive dz from obesity Pulmonary consulted CTA reviewed monitor Type 2 diabetes mellitus with hyperglycemia, without long-term current use of insulin (HCC) Metformin was held since 03/21 d/t CT scan as outside ED A1C 8.1, needs better control Resume metformin after 48 hours of contrast accuchecks/SSI Essential hypertension Continue on home meds and monitor Overactive bladder Stable, continue home Mybetriq and Ditropan Hyperlipemia Continue Simvastatin and Gemfibrozil Pain, neuropathic Follows with pain management Continue Gabapentin, Mirapex for RLS S/P partial thyroidectomy Stable, monthly thyroid studies per pt report, no home meds F/u endo outpatient Hepatic steatosis Identified on CT at [facility] 10/26/17, LFTs normal on admission - Recommend weight loss Follow up with [facility] Diarrhea Dx salmonella in October, had diarrhea since Had colonoscopy outpatient ID consulted as GI pathogen + salmonella See my orders for additional details regarding this patients treatment plan. Room: [address] [place] [address] Diet: Diet-Low Fat/Chol, 2gm Na, Consistent Carbohydrate Code Status: Full Code VTE Prevention: Appropriate VTE orders and/or documentation has been completed for this patient. Veloz Catheter: N/A Scheduled Meds: albuterol 2.5 mg Nebulization 4x Daily aspirin 325 mg Oral Daily citalopram 10 mg Oral Daily docusate sodium 100 mg Oral BID gabapentin 300 mg Oral TID gemfibrozil 600 mg Oral BID AC heparin (porcine) 5,000 Units Subcutaneous Q8H hydroCHLOROthiazide 25 mg Oral Daily insulin lispro 2-7 Units Subcutaneous 4 times daily before meals and nightly mirabegron 50 mg Oral Daily oxybutynin 5 mg Oral BID pantoprazole 40 mg Oral Daily pramipexole 1 mg Oral TID pravastatin 80 mg Oral Nightly Continuous Infusions: PRN Meds: albuterol, ALPRAZolam, dextrose 50% OR dextrose OR dextrose 10%, glucagon OR glucagon, ipratropium-albuterol, magnesium sulfate, potassium chloride, potassium chloride, potassium chloride in water, prochlorperazine, zolpidem DO Mavis [facility] Please page through physician paging. . * Juan Pyle MD - 03/27/2018 3:43 PM CDT Formatting of this note may be different from the original. [facility] Hospitalist - Progress Note Patient Name: Micki Kelley Account No: [id number] Date of : 1950 Date of Admission: 03/26/2018 12:46 PM Subjective Follow up regarding dyspnea - pt feeling about same - breathing ok when on cpap. Still with loose stools. No fever. Review of Systems: Respiratory ROS: positive for - shortness of breath Cardiovascular ROS: positive for - dyspnea on exertion Gastrointestinal ROS: positive for - diarrhea Objective Vital Signs: Temp: 36.7 C (98 F) Pulse: 70 Resp: 20 BP: 139/75 SpO2: 94 % Height: 167.6 cm (5' 6") Weight: 108.9 kg (240 lb 1.3 oz) I/O last 24 Hours: In: 360 [P.O.:360] Out: 2650 [Urine:1950; Stool:700] Physical Exam: Gen: NAD CV: RRR, no murmurs Resp: CTAB Abd: S/ND/NT, +BS Ext: No c/c/e Neuro: A/Ox3, no focal neurologic deficits I have personally reviewed the patient's vital signs, laboratory/pathology/ culture results (as indicated), current inpatient medications and applications support specialist notes with pertainent findings noted within the assessment/plan. Assessment/Plan Ms. Micki Kelley is a 67 y.o. female with chronic pain secondary to abdominal adhesions (follows with pain management, left anterior chest port), partial thyroidectomy (undergoing monthly thyroid studies for maintenance), NIDDM2, hypertension, hyperlipidemia who presented to [facility] from the pain clinic on 03/26/18 with worsening shortness of breath and hypoxia. Patient reported progressive dyspnea on exertion (walking any more than 10-20 feet), wheezing, heart palpitations since October 2017 (treated for PNA/influenza A few months prior). Only alleviating interventions are CPAP use throughout the day (was not using it prior to 6 months ago because she had repeat sleep study that was normal). She was evaluated in ED at [facility] in October, noted to have relatively normal LV function and CT chest without VTE, possible bronchiolitis. She was referred to Pulmonology but has been unable to get an appointment until May at the earliest. She was admitted for dyspnea - etiology unclear. Pulmonary eval as of 03/27 pm is pending. Cont cpap. No clear evidence infection. She has diarrhea for 2 months with stool panel pending. Dispo: pending sx, pulm recs and stool study result Problems addressed with today's visit include: Shortness of breath Dyspnea on exertion, unchanged, wheezing since October 2017 - I/o net neg 2L - minimal change in sx - ? UIP or other interstitial dx - await pulm eval - RVP neg - cont cpap Type 2 diabetes mellitus with hyperglycemia, without long-term current use of insulin (HCC) Metformin was held since 03/21 d/t CT scan as outside ED - Add-on Hgb A1c, hold home regimen - cont ssi Essential hypertension Elevated on admission, SBP 130-160s - currently improved - resume home hctz Overactive bladder Stable, continue home Mybetriq and Ditropan Hyperlipemia Continue Simvastatin and Gemfibrozil Pain, neuropathic Follows with pain management - Continue Gabapentin, Mirapex for RLS S/P partial thyroidectomy Stable, monthly thyroid studies per pt report, no home meds - Thyroid cascade Hepatic steatosis Identified on CT at [facility] 10/26/17, LFTs normal on admission - Recommend weight loss Diarrhea - recent salmonella diagnosis and abx for that about 2 mos ago - continued diarrhea w/ elevated pct - stool panel pending See my orders for additional details regarding this patients treatment plan. Room: [facility] Diet: Diet-Low Fat/Chol, 2gm Na, Consistent Carbohydrate Code Status: Full Code VTE Prevention: Appropriate VTE orders and/or documentation has been completed for this patient. Veloz Catheter: N/A Scheduled Meds: albuterol 2.5 mg Nebulization 4x Daily aspirin 325 mg Oral Daily citalopram 10 mg Oral Daily docusate sodium 100 mg Oral BID gabapentin 300 mg Oral TID gemfibrozil 600 mg Oral BID AC heparin (porcine) 5,000 Units Subcutaneous Q8H hydroCHLOROthiazide 25 mg Oral Daily insulin lispro 2-7 Units Subcutaneous 4 times daily before meals and nightly mirabegron 50 mg Oral Daily oxybutynin 5 mg Oral BID pantoprazole 40 mg Oral Daily pramipexole 1 mg Oral TID pravastatin 80 mg Oral Nightly Continuous Infusions: PRN Meds: albuterol, ALPRAZolam, dextrose 50% OR dextrose OR dextrose 10%, glucagon OR glucagon, ipratropium-albuterol, magnesium sulfate, potassium chloride, potassium chloride, potassium chloride in water, prochlorperazine, zolpidem Juan Pyle MD [facility] Please page through physician paging. . * Last Roman, MATERIAL INSPECTOR-ART HISTORY INSTRUCTOR - 03/26/2018 5:48 PM CDT Formatting of this note may be different from the original. Respiratory Care Services Initial Consultation Note Name: Micki Kelley CPI: [id number] Micki Kelley was evaluated per [facility]ATE Consultation on March 26, 2018 at 1748 for respiratory therapy intervention needs. History Assessment The patient is hospitalized for Active Hospital Problems Diagnosis Shortness of breath Essential hypertension Type 2 diabetes mellitus with hyperglycemia, without long-term current use of insulin (HCC) Hyperlipemia Hepatic steatosis Pain, neuropathic S/P partial thyroidectomy and has co-existing disease process of GRACE Social History Substance Use Topics Smoking status: Former Smoker Packs/day: 0.25 Years: 3.00 Types: Cigarettes Start date: 03/25/1969 Quit date: 03/25/1972 Smokeless tobacco: Never Used Comment: smoke pack a day for 6 months 40 years ago. Alcohol use Yes Comment: 2 drinks weekly. Current Facility-Administered Medications Medication Dose Route Frequency Provider Last Rate Last Dose ALPRAZolam (XANAX) tablet 1 mg 1 mg Oral Nightly PRN Andrea Olguin NP aspirin tablet 325 mg 325 mg Oral Daily Andrea Olguin NP citalopram (CeleXA) tablet 10 mg 10 mg Oral Daily Andrea Olguin NP dextrose 50% (D50W) syringe 25-50 mL 25-50 mL Intravenous PRN Andrea Olguin NP Or dextrose (D50W) 50 % injection 25-50 mL 25-50 mL Intravenous PRN Andrea Richard, TRANSCRIPT EVALUATOR Or dextrose 10% (D10W) bolus 125-250 mL 125-250 mL Intravenous PRN Andrea Olguin NP docusate sodium (COLACE) capsule 100 mg 100 mg Oral BID Andrea Olguin NP furosemide (LASIX) injection 20 mg 20 mg Intravenous Once Anastasia Kaba DO gabapentin (NEURONTIN) capsule 600 mg 600 mg Oral TID Andrea Olguin NP gemfibrozil (LOPID) tablet 600 mg 600 mg Oral BID AC Andrea Olguin NP glucagon (GLUCAGEN) injection 1 mg 1 mg Intramuscular PRN Andrea Olguin NP Or glucagon (GLUCAGEN) injection 1 mg 1 mg Subcutaneous PRN Andrea Olguin NP heparin (porcine) 5,000 unit/mL injection 5,000 Units 5,000 Units Subcutaneous Q8H Andrea Olguin NP insulin lispro (HumaLOG) injection 2-7 Units 2-7 Units Subcutaneous 4 times daily before meals and nightly Andrea Olguin NP ipratropium-albuterol (DUO-NEB) 0.5-3 mg/3 mL nebulizer solution 3 mL 3 mL Inhalation 4x Daily PRN Anastasia Kaba DO magnesium sulfate IVPB 4 gram (premix) 4 g Intravenous PRN Andrea Olguin NP mirabegron (MYRBETRIQ) ER tablet 50 mg 50 mg Oral Daily Andrea Olguin NP oxybutynin (DITROPAN) tablet 5 mg 5 mg Oral BID Andrea Olguin NP pantoprazole (PROTONIX) EC tablet 40 mg 40 mg Oral Daily Andrea Olguin NP potassium chloride (KAYCIEL) 20 mEq/15 mL solution 20-60 mEq 20-60 mEq Oral PRN Andrea Olguin NP potassium chloride (KLOR-CON) CR tablet 20-60 mEq 20-60 mEq Oral PRN Andrea Olguin, JESSICA potassium chloride 20 mEq in 100 mL IVPB 20 mEq Intravenous PRN Andrea Olguin NP pramipexole (MIRAPEX) tablet 0.125 mg 0.125 mg Oral BID Andrea Olguin NP pravastatin (PRAVACHOL) tablet 80 mg 80 mg Oral Nightly Andrea Olguin NP prochlorperazine (COMPAZINE) injection 5 mg 5 mg Intravenous Q4H PRN Valdo Park MD zolpidem (AMBIEN) tablet 5 mg 5 mg Oral Nightly PRN Danielle Gray, Jasen Physical Assessment The patient's has the following signs/symptoms evaluated to determine criteria for service: SaO2 96% on 0 LPM, HR 79 bpm, Temp 36.6 Patient is spontaneously breathing Breath Sounds Clear Diminished Respiratory Pattern Normal Cough NPC Sputum na Color na Amount na Other na Protocol The patient meets criteria for Respiratory Care Service based upon the assessment above. Treatment Plan The treatment plan identified for the patient is Oxygen Therapy and GRACE Discharge Considerations Not Applicable Associated attestation - Anastasia Kaba DO - 03/26/2018 6:13 PM CDT Attestation error in this encounter H&P Notes * Andrea Olguin NP - 03/26/2018 4:48 PM CDT Formatting of this note may be different from the original. [facility] Hospitalist - History & Physical Patient Name: Micki Kelley Account No: [id number] Date of : 1950 Date of Admission: 03/26/2018 12:46 PM Primary Care Physician: dAolfo Cardenas MD; Subjective Chief Complaint: Shortness of Breath History of Present illness: Ms. Micki Kelley is a 67 y.o. female with chronic pain secondary to abdominal adhesions (follows with pain management, left anterior chest port), partial thyroidectomy (undergoing monthly thyroid studies for maintenance), NIDDM2, hypertension, hyperlipidemia who presented to [facility] from the pain clinic on 03/26/18 with worsening shortness of breath and hypoxia. Patient reports progressive dyspnea on exertion (walking any more than 10-20 feet), wheezing, heart palpitations since October 2017 (treated for PNA/ influenza A few months prior). Only alleviating symptoms are CPAP use throughout the day (was not using it prior to 6 months ago because she had repeat sleep study that was normal. She was evaluated in ED at [facility] in October, noted to have relatively normal LV function and CT chest without VTE, possible bronchiolitis. She was referred to Pulmonology but has been unable to get an appointment until May at the earliest. She was seen by Cardiology on 03/11/18 , 24 holter monitor with no acute abnormalities, formal echo was ordered but had not obtained yet. She presented to ED in [place] on Wednesday 03/21, has CT which was "normal", was given duoneb tx and prescribed Ventolin inhaler and discharged with instructions to follow with Pulmonology. Review of Systems: A 10-point review of systems was performed and was negative except as noted above. Past Medical History: She has a past medical history of Chronic pain (2012); Diabetes mellitus (HCC); Diabetes mellitus, type II (HCC); H/O partial thyroidectomy; Hyperlipemia; and Hypertension. Past Surgical History: She has a past surgical history that includes SECTION; Abdominal hernia repair; Tonsillectomy; Appendectomy; Hysterectomy; REPAIR, KNEE, MENISCUS (Bilateral); Rotator cuff repair (Right); REPAIR, CHIARI MALFORMATION; Abdominal adhesion surgery; Cholecystectomy; Vascular surgery; CATARACT SURGERY (Bilateral); Joint replacement (Right); Thyroidectomy, partial ; and Knee surgery. Family History: She has no family status information on file. Her family history is not on file. Social History: She reports that she quit smoking about 46 years ago. Her smoking use included Cigarettes. She started smoking about 49 years ago. She has a 0.75 pack-year smoking history. She has never used smokeless tobacco. She reports that she drinks alcohol. She reports that she does not use drugs. Allergies: She has No Known Allergies. Prior to Admission medications Medication Sig aspirin 325 MG tablet Take 325 mg by mouth daily. citalopram (CELEXA) 10 mg tablet 10 mg. dicyclomine (BENTYL) 10 MG capsule 10 mg. diphenoxylate-atropine (LOMOTIL) 2.5-0.025 mg per tablet Take 1 Tablet by mouth 4 times daily as needed for Diarrhea/Loose Stools. estradiol (ESTRACE) 0.01 % (0.1 mg/gram) vaginal cream Insert vaginally daily. gabapentin (NEURONTIN) 600 MG tablet Take 600 mg by mouth 3 (three) times a day. mirabegron (MYRBETRIQ) 50 mg Tb24 tablet 50 mg. pantoprazole (PROTONIX) 40 MG tablet 40 mg. acyclovir (ZOVIRAX) 200 MG capsule Take 200 mg by mouth daily. acyclovir (ZOVIRAX) 5 % cream Apply topically as directed. ALPRAZolam (XANAX) 1 MG tablet Take 1 mg by mouth at bedtime. diazePAM (VALIUM) 5 MG tablet Take 5 mg by mouth daily. docusate sodium (COLACE) 100 MG capsule 100 mg. gemfibrozil (LOPID) 600 MG tablet Take 600 mg by mouth 2 (two) times a day before breakfast and dinner. hydroCHLOROthiazide (HYDRODIURIL) 25 MG tablet Take 25 mg by mouth daily. metformin (GLUCOPHAGE) 500 mg tablet Take 500 mg by mouth 2 (two) times a day with meals. oxybutynin (DITROPAN) 5 MG tablet Take 5 mg by mouth 2 (two) times a day. pramipexole (MIRAPEX) 0.125 MG tablet Take 0.125 mg by mouth 2 (two) times a day. simvastatin (ZOCOR) 40 MG tablet Take 40 mg by mouth nightly. zolpidem (AMBIEN CR) 12.5 MG CR tablet Take 12.5 mg by mouth nightly as needed for sleep. Objective Triage Vital Signs: Temp: 36.6 C (97.9 F) Pulse: 98 Resp: 20 BP: (!) 192/81 SpO2: 96 % Height: 167.6 cm (5' 6") Weight: 108.9 kg (240 lb 1.3 oz) Physical Exam: Gen: Calm, cooperative HEENT: NC/AT, PERRLA, EOMI, MMM's CV: RRR, S1 & S2 normal, no murmurs, gallops, or rubs, 2+ pulses all extremities Resp: CTA, diminished lower lobes, no wheezes, crackles, or rhonchi, left anterior chest port Abd: S/ND/NT, +BS, no guarding or rebound Ext: No c/c/e Skin: Warm, dry, & intact with no obvious rashes or significant lesions Neuro: A/Ox4, strength and sensation intact, no focal neurologic deficits ECG personally reviewed with the following findings noted: normal ECG, normal sinus rhythm, heart rate: 91 bpm, appears non-ischemic I have personally reviewed the patient's vital signs, laboratory/pathology/ culture results (as indicated), ECG, current inpatient medications, applications support specialist notes, prior admission/outpatient notes, prior to admission medications and outside medical records with pertainent findings noted within the assessment /plan. I have personally reviewed and updated the patient's past medical history , past surgical history, family history and social history as appropriate. Assessment/Plan Ms. Micki Kelley is a 67 y.o. female who was admitted on 03/26/2018 with complaint of Shortness of Breath. Shortness of breath Dyspnea on exertion, unchanged, wheezing since October 2017 CT negative for VTE, equivocal findings, possible pulm edema, bronchiectasis - Lasix challenge, monitor urinary output, strict I&O - Check resp viral panel, PCT, low suspicion for infection - BNP normal, obtain echo, Pulmonary consult appreciated - CPAP at HS, PRN oxygen/duonebs, continuous pulse ox Type 2 diabetes mellitus with hyperglycemia, without long-term current use of insulin (HCC) Metformin was held since 03/21 d/t CT scan as outside ED - Add-on Hgb A1c, hold home regimen - BG AC & HS, CC diet, SS level 3 - Discussed modifiable risk factors - Hypoglycemia protocol Essential hypertension Elevated on admission, SBP 130-160s - Hold home HCTZ for now, Lasix challenge - Monitor BP trends, consider alternative agent if needed Overactive bladder Stable, continue home Mybetriq and Ditropan Hyperlipemia Continue Simvastatin and Gemfibrozil Pain, neuropathic Follows with pain management - Continue Gabapentin, Mirapex for RLS S/P partial thyroidectomy Stable, monthly thyroid studies per pt report, no home meds - Thyroid cascade Hepatic steatosis Identified on CT at [facility] 10/26/17, LFTs normal on admission - Recommend weight loss In addition, see my orders for additional details regarding this patients treatment plan. Diet: regular and Simply healthy/CC VTE Prevention: Heparin subcutaneous Sequential Compression Device (SCD's) The patient does have an advanced directive. Her spouse/partner is her surrogate decision maker/DPOA. Code Status: Full Code; I explained CPR, drug protocol, defibrillation, and life support measures in detail including intubation and mechanical ventilation. The patient has decided on a code status of FULL CODE. Disp: Admit the patient as Observation to intermediate with telemetry for treatment as noted above. Andrea Olguin NP [facility] Please page through physician paging. . Associated attestation - Anastasia Kaba DO - 03/26/2018 6:13 PM CDT Formatting of this note may be different from the original. [facility] Hospitalist - History & Physical Patient Name: Micki Kelley Account No: [id number] Date of : 1950 Date of Admission: 03/26/2018 12:46 PM [facility] Hospitalist - Progress Note Patient Name: Micki Kelley Account No: [id number] Date of : 1950 Date of Admission: 03/26/2018 12:46 PM STAFF CYTOTECHNOLOGIST Hospitalist Attestation: I personally interviewed and examined the Ms. Micki Kelley. I discussed the findings with nurse practitioner and reviewed the nurse practitioners note. I agree the findings with exceptions noted. Ms. Micki Kelley is a pleasant female who presents to the hospital with Shortness of breath progressive in nature and worsening with significant dyspnea even noted with ambulation even in the emergency room. The patient is known to have a history of sleep apnea has been using his CPAP with mild improvement in of her symptoms. she has noted a significant amount of weight gain over the last several months. She previously had a cardiac workup and was told everything was "normal". Objective findings and Assessment/Plan are as follows: Vital Signs: Blood pressure (!) 161/79, pulse 79, temperature 36.6 C (97.9 F), temperature source Oral, resp. rate 22, height 1.676 m (5' 6"), weight 108.9 kg (240 lb 1.3 oz), SpO2 96 %. SpO2: 96 % Physical Exam: Alert and oriented x person, place, year HEENT: Pupils equal, sclera clear Cardiovascular: Regular rate, regular rhythm, no murmur, no S3 Lungs: no wheezes, no crackles, no rhonchi Abdomen: Soft, non tender, Bowel sounds normal active Extremities: trace edema, Knee incision, pulses palpable Skin: No rashes, no jaundice Neuro: No focal findings, Upper and Lower extremities strength, proximal and distal, 5/5 bilateral and equal pcxr personally reviewed and poss interstitial edema bilaterally, no infiltrate Ct angio neg for PE. Veloz Catheter: No Assessment/Plan: Active Problems: Shortness of breath Essential hypertension Type 2 diabetes mellitus with hyperglycemia, without long-term current use of insulin (HCC) Hepatic steatosis S/P partial thyroidectomy Pain, neuropathic Hyperlipemia Overactive bladder Lasix x1 and monitor for I/o after to see if improvement pulm consult May need pfts No obvious signs of infection; Unlikely to be new copd Echo followup I/o Daily weight and strict i/o Resume home meds DVT PPx: heparin Code Status: Full Code Anastasia Kaba DO [facility] [phone] Electronically signed by Anastasia Kaba DO 03/26/2018 6:03 PM cc: Adolfo Cardenas MD in this encounter Consult Notes * Leonid Peralta MD - 03/29/2018 11:14 AM CDT This is a 67-year-old female admitted on the 03/26/2018 with shortness of breath and a decreased oxygen saturation. She initially presented to the local hospital in [place], [place]. CT scan of the chest was said to be negative for pulmonary embolism. She was discharged to follow up with pulmonary, but ultimately admitted here at [facility]. PAST MEDICAL HISTORY: Extensive and includes chronic abdominal pain, type 2 diabetes, hypertension, hyperlipidemia, obstructive sleep apnea. She reportedly had influenza A and pneumonia in October 2017. She also developed what sounds like acute salmonella gastroenteritis in October 2017. She apparently had routine cultures that ultimately sent to the state and treated with an oral antibiotic for 7 days. Since then she has had abnormal stools, perhaps 5-6 bowel movements per day, nearly all postprandial and partially formed with a pudding like consistency. No liquid stools, no blood, no mucus. PAST SURGICAL HISTORY: Includes a left partial thyroidectomy, , appendectomy, hysterectomy, cholecystectomy, bilateral knee surgeries with a right total knee replacement, rotator cuff repair, lysis of adhesions, bilateral cataract extractions, and right total knee replacement. FAMILY HISTORY: Reviewed and is not pertinent to this admission. SOCIAL HISTORY: Notable for past tobacco use. Minimal use more than 46 years ago. She uses alcohol only socially. No illicit drugs. MEDICATIONS: Prior to admission are reviewed. No antibiotics, no immunosuppressives. She denies any antibiotic allergies. REVIEW OF SYSTEMS: The shortness of breath and hypoxia is apparently resolved. A 10-point system review otherwise as per the present illness. Review of the hospital record reveals that she has been seen by pulmonary. No hypoxia. Marked deconditioning, obstructive sleep apnea with abnormal stools. A GI PCR panel was performed and is positive for Salmonella by PCR that is what led to the infectious disease consultation. Review of the graphics reveals she has been afebrile. White count 7.5. Electrolytes normal, creatinine 0.6. Total bilirubin 0.7 with normal liver enzymes. Albumin 3.7 with a calcium of 9.0. Cardiac enzymes negative. Hemoglobin A1c 8.1, consistent with poorly controlled diabetes. TSH 2.67. Procalcitonin 0.3. Chest x-ray is viewed personally negative. CT angiogram negative for PE, as mentioned. Some nonspecific patchy ground glass infiltrates. A respiratory PCR panel is negative. The patient has not received any antibiotics. PHYSICAL EXAMINATION: GENERAL: She is awake and alert and nontoxic appearing. EYES: Negative. OROPHARYNX: Clear. NECK: Supple without lymphadenopathy. CHEST: Clear. CARDIAC: Without pathologic murmurs, rubs, or gallops. ABDOMEN: Obese but benign. The patient weighs 108.9 kilograms. No costovertebral angle or suprapubic tenderness. EXTREMITIES: Without clubbing or cyanosis. NEUROLOGIC: Nonfocal. IMPRESSION: My impression is that this patient appears to have presented with acute salmonella gastroenteritis in October 2017. Whether this required antibiotics is unclear. Patient does not need any of the criteria for treating a salmonella gastroenteritis which is a self-limited illness. In any event, she did receive a week of an unknown antibiotic and has had abnormal bowel movements since. Again, 5-6 bowel movements per day, all postprandial and partially formed. This is not truly diarrhea and is unlikely to relate to persistent salmonella in the stool. 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 We would like to confirm that the patient actually has a viable salmonella and obtain sensitivities should treatment become necessary. As mentioned above, the patient is status post a cholecystectomy, which is thought to be a reservoir for Salmonella carriage. PLAN: At this time will be to obtain a stool for culture and sensitivity. We will elect to observe off of antibiotics. As again, I do not believe that chronic salmonella carriage relates to this patient abnormal bowel pattern which is not truly a diarrhea. The patient does not meet indications for treatment of chronic salmonella carriage which would include work in the food industry, a daycare, or a severely immunocompromised person in the household. As always thank you for the referral. * Archana Garcia MD - 03/28/2018 5:02 PM CDT Associated Order(s): IP CONSULT TO PULMONOLOGY Formatting of this note may be different from the original. PULMONARY CONSULT DATE: 03/28/2018 PATIENT NAME: Micki Kelley : 1950 AGE: 67 y.o. REASON FOR CONSULT: soa/dyspnea/hypoxia CONSULT REQUESTED BY: Alejo Mancini DO PCP: Adolfo Cardenas MD CHIEF COMPLAINT: Shortness of breath HISTORY OF PRESENT ILLNESS: 67-year-old female who stated that she was at the doctor's office for pain injection when she stated that she cannot breathe was noted to have saturation of 84%. She was brought to the hospital and admitted. Patient stated that her shortness of breath has been progressive in nature for good while. She stated that she had a total knee replacement January 2016. Patient underwent rehab afterward and followed all the activities from the rehab. However, when she was on her own, she started having right knee pain. In addition, she stated that her knee swelled up when she did much activities. Thus, progressively she has cut back on her level of activity. She felt so short of breath that she retrieved her CPAP in September 13, 2017 and started using it.She had a diagnosis of obstructive sleep apnea in 2008 but has never acclimated to and had put it away. Now, she started using her CPAP as much as possible, up to 20 hours a day. She stated that the CPAP makes her feel better because it pushes air into her lungs. Indeed, since August 2017 she spent most of her time in bed using a CPAP. She has no history of childhood asthma. She has no previous diagnosis of any pulmonary problem. She denied chronic cough wheezing sputum production with chest discomfort. CTA on admission has been negative for pulmonary embolism. She smoked at most quarter pack a day for 18 month in [id number] she has no occupational exposure. When questioned she admits that she gained about 20 to 30 pound the last several months. There is no occupational exposure such as coal mining, foundry, sandblasting, and asbestos. 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 She has had negative cardiac workup. Currently she had dyspnea on exertion up to about 20 feet or so. REVIEW OF SYSTEMS: I have performed 10 points ROS. Pertinent positives are as listed above in history of present illness. Past Medical History: Diagnosis Date Chronic pain 2012 Secondary to abdominal adhesions, follows with pain management Diabetes mellitus (HCC) Diabetes mellitus, type II (HCC) H/O partial thyroidectomy monthly thyroid studies, no home medication use Hyperlipemia Hypertension Past Surgical History: Procedure Laterality Date ABDOMINAL ADHESION SURGERY ABDOMINAL HERNIA REPAIR APPENDECTOMY CATARACT SURGERY Bilateral SECTION CHOLECYSTECTOMY HYSTERECTOMY JOINT REPLACEMENT Right knee KNEE SURGERY REPAIR, CHIARI MALFORMATION REPAIR, KNEE, MENISCUS Bilateral ROTATOR CUFF REPAIR Right THYROIDECTOMY, PARTIAL TONSILLECTOMY VASCULAR SURGERY Social History Social History Marital status: Spouse name: N/A Number of children: N/A Years of education: N/A Occupational History Not on file. Social History Main Topics Smoking status: Former Smoker Packs/day: 0.25 Years: 3.00 Types: Cigarettes Start date: 03/25/1969 Quit date: 03/25/1972 Smokeless tobacco: Never Used Comment: smoke pack a day for 6 months 40 years ago. Alcohol use Yes Comment: 2 drinks weekly. Drug use: No Sexual activity: Not on file Other Topics Concern Not on file Social History Narrative Lives at home with spouse, denies use of assistive devices other than CPAP at . She does have and AD/LW, her DPOA is her , Hunter. She has 3 children. FULL Code. History reviewed. No pertinent family history. Allergies: Patient has no known allergies. PRIOR TO ADMISSION MEDICATIONS: Prescriptions Prior to Admission Medication Sig Dispense Refill Last Dose aspirin 325 MG tablet Take 325 mg by mouth daily. 03/25/2018 at Unknown time citalopram (CELEXA) 10 mg tablet 10 mg. dicyclomine (BENTYL) 10 MG capsule 10 mg. diphenoxylate-atropine (LOMOTIL) 2.5-0.025 mg per tablet Take 1 Tablet by mouth 4 times daily as needed for Diarrhea/Loose Stools. estradiol (ESTRACE) 0.01 % (0.1 mg/gram) vaginal cream Insert vaginally daily. gabapentin (NEURONTIN) 600 MG tablet Take 600 mg by mouth 3 (three) times a day. 03/25/2018 at Unknown time mirabegron (MYRBETRIQ) 50 mg Tb24 tablet 50 mg. pantoprazole (PROTONIX) 40 MG tablet 40 mg. acyclovir (ZOVIRAX) 200 MG capsule Take 200 mg by mouth daily. 03/26/2018 at Unknown time acyclovir (ZOVIRAX) 5 % cream Apply topically as directed. More than a month at Unknown time ALPRAZolam (XANAX) 1 MG tablet Take 1 mg by mouth at bedtime. 03/25/2018 at Unknown time diazePAM (VALIUM) 5 MG tablet Take 5 mg by mouth daily. 03/25/2018 at Unknown time docusate sodium (COLACE) 100 MG capsule 100 mg. gemfibrozil (LOPID) 600 MG tablet Take 600 mg by mouth 2 (two) times a day before breakfast and dinner. 03/25/2018 at Unknown time hydroCHLOROthiazide (HYDRODIURIL) 25 MG tablet Take 25 mg by mouth daily. 03/26/2018 at Unknown time metformin (GLUCOPHAGE) 500 mg tablet Take 500 mg by mouth 2 (two) times a day with meals. 03/26/2018 at Unknown time oxybutynin (DITROPAN) 5 MG tablet Take 5 mg by mouth 2 (two) times a day. 03/25/2018 at Unknown time pramipexole (MIRAPEX) 0.125 MG tablet Take 0.5 mg by mouth 3 (three) times a day. 03/26/2018 at Unknown time simvastatin (ZOCOR) 40 MG tablet Take 40 mg by mouth nightly. 03/25/2018 at Unknown time zolpidem (AMBIEN CR) 12.5 MG CR tablet Take 12.5 mg by mouth nightly as needed for sleep. 03/25/2018 at Unknown time CURRENT ACTIVE MEDICATIONS: aspirin 325 mg Oral Daily citalopram 10 mg Oral Daily docusate sodium 100 mg Oral BID gabapentin 300 mg Oral TID gemfibrozil 600 mg Oral BID AC heparin (porcine) 5,000 Units Subcutaneous Q8H hydroCHLOROthiazide 25 mg Oral Daily insulin lispro 2-7 Units Subcutaneous 4 times daily before meals and nightly mirabegron 50 mg Oral Daily oxybutynin 5 mg Oral BID pantoprazole 40 mg Oral Daily pramipexole 1 mg Oral TID pravastatin 80 mg Oral Nightly albuterol, ALPRAZolam, dextrose 50% OR dextrose OR dextrose 10%, glucagon OR glucagon, ipratropium-albuterol, magnesium sulfate, potassium chloride, potassium chloride, potassium chloride in water, prochlorperazine, zolpidem PHYSICAL EXAM: Temp: [36.5 C (97.7 F)-36.8 C (98.2 F)] 36.7 C (98 F) Pulse: [66-84] 67 Resp: [18-20] 18 BP: (112-147)/(46-72) 129/65 SpO2: 97 % SpO2 Av % Min: 92 % Max: 97 % I/O last 3 completed shifts: In: 1250.5 [P.O.:1200; IV Piggyback:50.5] Out: 4050 [Urine:3350; Stool:700] Most Recent: Weight: 108.9 kg (240 lb 1.3 oz) General Appearance: No distress, co-operative, awake; on no oxygen, Able to lay flat comfortably on the bed Neurologic: AAO, ALMONTE HEENT: No icterus or oral thrush, pupils:equal and reactive Neck: Supple, no palpable mass Chest: Breath sounds: Decreased but clear Respiratory effort: Normal Heart:: RRR, S1- S2 normal, no murmur Abdomen: Obese, soft, non-tender , normoactive bowel sounds, linear scar Extremities: Lower extremities: No edema edema, No cyanosis, no clubbing Skin: No rashes, warm to touch LAB DATA: No lab components to display Most Recent Result within the last 7 days Lab Units 03/28/18 0505 03/27/18 0150 03/26/18 1357 WBC TH/uL 6.57 7.69 7.54 HEMOGLOBIN g/dL 11.3* 11.5* 11.5* HEMATOCRIT % 36 37 36 PLATELET COUNT TH/uL 226 270 230 No lab components to display Most Recent Result within the last 7 days Lab Units 03/28/18 0505 03/27/18 0150 03/26/18 1315 SODIUM MEQ/L 136 137 136 POTASSIUM MEQ/L 4.3 4.0 4.0 CHLORIDE MEQ/L 103 100 101 CARBON DIOXIDE MEQ/L 24 26 24 BLOOD UREA NITROGEN mg/dL 18 16 17 CREATININE mg/dL 0.6 0.7 0.6 CALCIUM mg/dL 9.4 9.4 9.0 MAGNESIUM mg/dL 2.4 1.6 -- GLUCOSE mg/dL 190* 175* 255* Most Recent Result within the last 7 days Lab Units 03/26/18 1315 ALKALINE PHOSPHATASE IU/L 88 ALANINE AMINOTRANSFERASE IU/L 32 ASPARTATE AMINOTRANSFERASE IU/L 33 PROTEIN TOTAL SERUM g/dL 6.7 No results found for: CKTOTAL Most Recent Result within the last 7 days Lab Units 03/26/18 1315 TROPONIN ng/mL <0.01 NTPROBNP pg/mL 28 PROCALCITONIN ng/mL 0.42* No results found for: LACWBV, LACWBA No lab components to display No results found for this or any previous visit (from the past 168 hour(s)). Sputum with Gram Stain: No results found for this or any previous visit. Urine: No results found for this or any previous visit. IMAGINGS: Ct Angio Chest Result Date: 03/26/2018 1. Negative for acute pulmonary embolism. 2. Patchy groundglass attenuation throughout both lungs, which may represent mild atelectasis, edema, or pneumonitis. 3. Hepatic steatosis and probable hepatomegaly. READING SITE: [facility] Xr Chest Single View Frontal Result Date: 03/26/2018 No acute disease. ASSESSMENT: Active Hospital Problems Diagnosis Diarrhea Shortness of breath Essential hypertension Type 2 diabetes mellitus with hyperglycemia, without long-term current use of insulin (HCC) Hyperlipemia Overactive bladder Hepatic steatosis Pain, neuropathic S/P partial thyroidectomy ABG room air: PH 7.47 PCO2 34 PO2 74 PLAN: ABGs is normal for her age. Currently there is no evidence for hypoxia. Clinical history and data all suggestive of marked deconditioning worsen by her obesity especially in the truncal area. Counseled patient for weight reduction. She need to increase progressively increase her level of activity. I have informed both patient and her of my finding I have emphasized the need for her to do more judicious diet and increase gradually her level of activity to get back into shape. Status post right total knee replacement with chronic pain and swelling may be a barrier As an outpatient full pulmonary function study can be obtained. Suspect she may have restrictive lung disease consistent with her obesity. Obstructive sleep apnea on CPAP of 10 cm. Patient has acclimated and can continue to use this. Electronically signed by Archana Garcia 03/28/2018 5:02 PM in this encounter Nursing Notes * Tiff Vu RN - 03/29/2018 8:05 AM CDT Pt complained of painful port site. No blood return (which is abnormal for patient) and pain with saline flush. I undressed the port and it easily dc'd. I assume it had become deaccessed at some point in the night, she states she sleeps on the side of her port and also she was had a lot of pain with brushing her teeth. She told me her needle size is 3/4 in. When I went to reaccess the port using sterile process, the 3/4 in went in without trouble and gave a brisk blood return. However, I feel that placing the biopatch may have contributed to the needle not staying accessed, so I did not place the biopatch with this access. She may require a one in access needle if the biopatch is used in the future. * Ara Arnold RN - 03/28/2018 4:10 PM CDT 1525 Call made to orthotic technician Dr. Garcia as patient has had pulmonary consult since 03/26/18 and has not been seen. MD informed patient is here for SOA with excertion and at rest and has not improved, patient is on RA and uses home CPAP at bedside as needed. Informed that CTA and CXR has been completed and hospitalist was awaiting pulm consult for evaluation and treatment. Dr. Garcia stated she has already completed rounds at hospital today. Dr. Mancini notified. * Mary Anne Chavarria, RN - 03/27/2018 5:09 AM CDT Ambulated pt around 2330. Pt requested walk to help with RLS. Pt sat 94-96% on RA during walk. in this encounter Miscellaneous Notes * Discharge Planning - Sherrie Richter RN - 03/30/2018 2:09 PM CDT Discharge Planning Interventions General Discharge Note Patients Anticipated discharge destination: Home Self Care Follow up appt with Dr Sood scheduled for 06/11 @ 13:30 which was the earliest available. Additional discharge planning information: Left message with Dr Sood's office requesting new patient pulmonary appt. Requested they contact patient to set up. F/U with PCP on 06/06/18 @ 10:40 . * Z - 2 MN Discharge Attestation - Alejo ManciniDO - 03/30/2018 1:24 PM CDT The patient is discharging sooner than expected because she has been admitted 2MN already * Plan of Care - Mary Anne Chavarria RN - 03/29/2018 7:25 PM CDT Problem: Knowledge Deficit Goal: Patient/family/caregiver demonstrates understanding of disease process, treatment plan, medications, and discharge instructions Outcome: Progressing Goal: Patient/Family/Caregiver sets realistic goals Outcome: Progressing Problem: Pain Goal: Patient's pain/discomfort is manageable Outcome: Progressing Pt denied pain at time of assessment Problem: Skin Integrity Goal: Skin integrity is maintained or improved Outcome: Progressing Problem: Safety Goal: Patient will be injury free during hospitalization Outcome: Progressing Problem: Nutrition Goal: Patient's nutritional intake is adequate Outcome: Progressing * Plan of Care - Gloria Bubsy RN - 03/29/2018 2:02 PM CDT Problem: Knowledge Deficit Goal: Patient/family/caregiver demonstrates understanding of disease process, treatment plan, medications, and discharge instructions Outcome: Progressing Patient verbalizes understanding of treatment/medications Problem: Safety Goal: Patient will be injury free during hospitalization Outcome: Progressing Patient has remained injury free during this shift. She uses call light appropriately Problem: Nutrition Goal: Patient's nutritional intake is adequate Outcome: Progressing Patient's nutritional intake has been adequate during shift. Her oral care has been done on her own and orders food on own. * Plan of Care - Mary Anne Chavarria RN - 03/28/2018 10:25 PM CDT Problem: Knowledge Deficit Goal: Patient/family/caregiver demonstrates understanding of disease process, treatment plan, medications, and discharge instructions Outcome: Progressing Goal: Patient/Family/Caregiver sets realistic goals Outcome: Progressing Problem: Pain Goal: Patient's pain/discomfort is manageable Outcome: Progressing Pt denied pain at time of assessment Problem: Skin Integrity Goal: Skin integrity is maintained or improved Outcome: Progressing Problem: Safety Goal: Patient will be injury free during hospitalization Outcome: Progressing Problem: Nutrition Goal: Patient's nutritional intake is adequate Outcome: Progressing * Plan of Care - Ara Arnold RN - 03/28/2018 12:17 PM CDT Problem: Pain Goal: Patient's pain/discomfort is manageable Outcome: Progressing Patient denies pain at time of assessment Will continue to monitor through out shift. Problem: Skin Integrity Goal: Skin integrity is maintained or improved Outcome: Progressing Patient up ad salo. Able to turn self * Plan of Care - Sujata Green RN - 03/27/2018 11:19 PM CDT Problem: Knowledge Deficit Goal: Patient/family/caregiver demonstrates understanding of disease process, treatment plan, medications, and discharge instructions Outcome: Progressing Plan of care discussed with patient. Goal: Patient/Family/Caregiver sets realistic goals Outcome: Progressing Problem: Pain Goal: Patient's pain/discomfort is manageable Outcome: Progressing Patient encouraged to alert staff if experiencing pain. Pt states no intolerable pain at this time. Problem: Skin Integrity Goal: Skin integrity is maintained or improved Outcome: Progressing Skin kept clean and dry. Patient up ad salo and ambulating frequently. Problem: Safety Goal: Patient will be injury free during hospitalization Outcome: Progressing Room kept free of clutter. Call light and bedside table within reach. Problem: Nutrition Goal: Patient's nutritional intake is adequate Outcome: Progressing Pt tolerating diet well. * Assessment & Plan Note - Alejo Mancini DO - 03/27/2018 3:39 PM CDT Associated Problem(s): Diarrhea Dx salmonella in October, had diarrhea since Had colonoscopy outpatient ID consulted as GI pathogen + salmonella but likely carrier state D/w Dr. Peralta Stool culture ordered No antibiotics at this time * Hospital Course - Juan Pyle MD - 03/27/2018 2:53 PM CDT Ms. Micki Kelley is a 67 y.o. female with chronic pain secondary to abdominal adhesions (follows with pain management, left anterior chest port), partial thyroidectomy (undergoing monthly thyroid studies for maintenance), NIDDM2, hypertension, hyperlipidemia who presented to [facility] from the pain clinic on 03/26/18 with worsening shortness of breath and hypoxia. Patient reported progressive dyspnea on exertion (walking any more than 10-20 feet), wheezing, heart palpitations since October 2017 (treated for PNA/influenza A few months prior). Only alleviating interventions are CPAP use throughout the day (was not using it prior to 6 months ago because she had repeat sleep study that was normal). She was evaluated in ED at [facility] in October, noted to have relatively normal LV function and CT chest without VTE, possible bronchiolitis. She was referred to Pulmonology but has been unable to get an appointment until May at the earliest. She was admitted for dyspnea - etiology unclear. Pulmonary eval as of 03/27 pm is pending. Cont cpap. No clear evidence infection. She has diarrhea for 2 months with stool panel pending. Dispo: pending sx, pulm recs and stool study result * Therapy Note - Bree Short, OT - 03/27/2018 1:54 PM CDT Formatting of this note may be different from the original. 03/27/18 1200 OT Visit Info Initial OT Visit On 03/27/18 Assessed for Rehab Yes Past medical history reviewed through chart review: Yes Referral Reason OT eval and treat; SOB, dyspnea Ordering practitioner Lashanda Comorbidities pertaining to therapy diagnosis chronic pain, DM, h.o partial thyroidectomy, HLD, HTN, R TKA, R rotator cuff repair Patient/Family Reports Pt resting in bed with CPAP on upon therapy arrival. Family present at bedside. Pt reports she has had trouble with SOB for about the past year now, but it has been getting increasingly worse. Pt reports she wears her CPAP majority of her time at home, about 20 hours/day. OT Received On 03/27/18 Total Treatment Time (min) Start Time 1135 Stop Time 1200 Total Treatment time (min) 25 min Actual time (if diff than calculation) 15 min eval, 10 min ADLs Precautions Fall Risk Yes Isolation Yes - contact plus enteric Supplemental Oxygen room air Home Living Type of Home House Home Layout Performs ADLs on one level Stairs to enter 2-3 steps;1 handrail Lives With Spouse Bathroom Shower/Tub Tub/shower unit Bathroom Toilet Raised Home Assistive Device None Additional Comments Above is home set-up in [place], [place]. Pt and spouse also have a second floor condo here in in which she has to walk up steps to get up to condo and then everything is on one floor. Pt and spouse live in [place] time stamp [employer], but all of pt's doctors are here in . Prior Function Level of [place] Independent with ADLs;Independent with functional transfers;Independent with ambulation Receives Help From Family Comments Pt reports she spends most of her time at home, but will occasionally leave the house and does drive. Pt's spouse assists as needed and she has her groceries delivered. Reports independent with dressing and bathing. At baseline , pt reports she gets very SOB and requires rest breaks to complete tasks. Reports she does not qualify for home O2. ADL Grooming Supervision/Setup Grooming Type of Task Washing, Rinsing and/or Drying the face;Washing, Rinsing and/or Drying the hand Lower Body Dressing Supervision/Setup Lower Body Dressing, Type of Clothing Left sock;Right sock ADL Comments Pt ambulates in room SBA with no AD. Stands at stink to complete grooming with SBA, and seated EOB to doff/don socks. Cognition Overall Cognitive Status WFL Arousal/Alertness Appropriate responses to stimuli Attention Span Appears intact Memory Appears intact Orientation Level Oriented to person;Oriented to place;Oriented to time; Oriented to situation Following Commands Follows all commands and directions without difficulty Safety Judgment Good awareness of safety precautions Insight Fully aware of deficits Problem Solving Able to problem solve independently Perception Inattention/Neglect Appears intact Initiation Appears intact Motor Planning Appears intact Perseveration Not present Communication Communication Comment no limitations RUE Assessment RUE Assessment WFL LUE Assessment LUE Assessment WFL Hand Function Dominant Hand/Side Right Gross Grasp Functional Gross Release Functional Bed Mobility Supine to Sit Stand by assistance;Bed Rail;HOB elevated Sit to Supine Stand by assistance;HOB elevated Transfers Assistive Device None Sit to Stand Transfers Stand by assistance Stand to Sit Transfers Stand by assistance Balance Sitting Static 4 Sitting Dynamic 4 Standing Static 3;(+) Standing Dynamic 3 Activity Tolerance Activity Tolerance fair Activity Tolerance Comments Pt does demo SOB with any activity, which she reports is baseline. Pt's SpO2 >90% throughout session. Took CPAP off to converse and to walk to sink. Intermittent rest breaks needed. Patient Education Patient Education OT role and plan of care, ADL training, energy conservation Response to education verbalizes understanding Assessment Learning Barriers None Response to Treatment Fair;Tolerated well Assistance Needed Occasional verbal cues (10-25%) Timeframe Timeframe STG 3-5 visits GOALS Goals Grooming;Lower Body Dressing;Toileting;Toilet Transfers;Bed Mobility Grooming Goals Grooming STG Goal Status New goal Grooming STG Modified Independent;Standing Lower Body Dressing Goals Lower Body Dressing STG Goal Status New goal Lower Body Dressing STG Modified Independent Toileting Goals Toileting STG Goal Status New goal Toileting STG Modified Independent Toilet Transfer Goals Toilet Transfer STG Goal Status New goal Toilet Transfer STG Modified Independent Bed Mobility Goals Bed Mobility STG Goal Status New goal Bed Mobility STG Modified Independent *PLAN Patient/Caregiver Goal be able to breathe better Pt/Family involved in Plan of Care yes OT Treatment Interventions ADL retraining;Functional activity tolerance;Patient/ family training;Equipment evaluation/education OT Frequency 3-5x/wk Recommendation Plan Continued OT Plan Comments Continue OT plan of care to further increase pt's safety and independence with ADLs and functional transfers prior to returning home. Cont to provide education rgarding energy conservation techniques. Care Coordination Care Coordination RN ok'd OT eval. Reports pt was up and walking around in hallway earlier. OT G-codes OT Visit # 1 Functional Limitation Self Care $Self Care Current Status (G8987) CJ $Self Care Goal Status (G8988) CI G-Code Determined by Clinical judgment;FIM (Functional [place] Measure) * Plan of Care - Ara Arnold RN - 03/27/2018 10:56 AM CDT Problem: Pain Goal: Patient's pain/discomfort is manageable Outcome: Progressing Patient denies pain at time of assessment Will continue to evaluate through out shift Medication available as needed. Problem: Skin Integrity Goal: Skin integrity is maintained or improved Outcome: Progressing Problem: Safety Goal: Patient will be injury free during hospitalization Outcome: Progressing Nonskid socks on Bed in lowest locked position Call light within reach Rounding per policy * Discharge Planning - Sherrie Richter RN - 03/27/2018 10:51 AM CDT Discharge Planning Interventions General Discharge Note Patients Anticipated discharge destination: Home Self Care Patient's Living Arrangement: House Support System: Spouse/significant other, Children. Patient Home Care Services: No. * Care Progression Initial Assessment - Sherrie Richter RN - 03/27/2018 10: 48 AM CDT Care Progression Initial Assessment Note Additional information: Patient lives in house with spouse. Per patient her breathing issue has progressively gotten worse and had tried to see a orthotic technician with [facility] but was unable to obtain an appt till May. Will follow for dc needs. Patient notified if any discharge needs occur they can request a discharge planning consult. Referral to see patient was placed by care Progression , Referral Reason: Initial Assessment, Discharge planning Initial assessment completed and Information obtained from: : Patient Introduced self and purpose of meeting with the patient and is agreeable to interview at this time. Patient Crt Name: Hunter Kelley (spouse), Patient Crt Patient's Living Arrangement: House Patients support system has been Support System: Spouse/significant other, Children Family Concerns: N/A Pt has Payor: MEDICARE / Plan: MEDICARE PART A B / Product Type: Medicare / Respiratory items:: CPap Patient states their Income Source: Employed. , Government Assistance: Medicare Resources Available: Rx benefits Verified that patients primary care physician is Adolfo Cardenas MD and receives their medications from [facility] #[id number] [facility] [address] [address] [address] [facility] [address] * Plan of Care - Mary Anne Chavarria RN - 03/26/2018 10:18 PM CDT Problem: Knowledge Deficit Goal: Patient/family/caregiver demonstrates understanding of disease process, treatment plan, medications, and discharge instructions Outcome: Progressing Goal: Patient/Family/Caregiver sets realistic goals Outcome: Progressing Problem: Pain Goal: Patient's pain/discomfort is manageable Outcome: Progressing Problem: Skin Integrity Goal: Skin integrity is maintained or improved Outcome: Progressing Problem: Safety Goal: Patient will be injury free during hospitalization Outcome: Progressing Problem: Nutrition Goal: Patient's nutritional intake is adequate Outcome: Progressing * Assessment & Plan Note - Alejo Mancini DO - 03/26/2018 5:48 PM CDT Associated Problem(s): Overactive bladder Stable, continue home meds * Assessment & Plan Note - Alejo Mancini DO - 03/26/2018 5:43 PM CDT Associated Problem(s): Shortness of breath Reviewed echo, has mild diastolic dysfunction but no evidence of decompensated heart failure suspect deconditioning, GRACE, restrictive dz from obesity Appreciate pulmonary assistance, they have s/o Encourage ambulation monitor * Assessment & Plan Note - Andrea Olguin NP - 03/26/2018 5:39 PM CDT Associated Problem(s): Hyperlipemia Continue Simvastatin and Gemfibrozil * Assessment & Plan Note - Alejo Mancini DO - 03/26/2018 5:37 PM CDT Associated Problem(s): Type 2 diabetes mellitus with hyperglycemia, without long -term current use of insulin (HCC) Metformin was held since 03/21 d/t CT scan as outside ED A1C 8.1, needs better control Resume metformin after 48 hours of contrast accuchecks/SSI * Assessment & Plan Note - Alejo Mancini, - 03/26/2018 5:35 PM CDT Associated Problem(s): Essential hypertension Continue on home meds and monitor * Assessment & Plan Note - Alejo Mancini, - 03/26/2018 5:34 PM CDT Associated Problem(s): Pain, neuropathic Follows with pain management Continue Gabapentin, Mirapex for RLS * Assessment & Plan Note - Alejo Mancini, - 03/26/2018 5:33 PM CDT Associated Problem(s): Hepatic steatosis Identified on CT at [facility] 10/26/17, LFTs normal on admission - Recommend weight loss Follow up with [facility] * Assessment & Plan Note - Alejo Mancini, - 03/26/2018 5:32 PM CDT Associated Problem(s): S/P partial thyroidectomy Stable, monthly thyroid studies per pt report, no home meds F/u endo outpatient * ED Provider Notes - Valdo Park MD - 03/26/2018 12:54 PM CDT Formatting of this note may be different from the original. 03/26/2018 [facility] History Chief Complaint Patient presents with Shortness of Breath Short of breath at pain clinic. Pt states she is always on Cpap machine. PT on cpap upon arrival of EMS. HPI 67-year-old female with chronic shortness of breath who wears CPAP via nasal cannula almost "20 hours a day" presents today with shortness of breath. Per report from patient she was at the pain clinic to receive some injections, had not been wearing any oxygen, states she "does not wear oxygen at home she does not qualify" walked across the waiting room and became short of breath, was having difficulty recovering, EMS was called. Upon arrival patient was placed on CPAP, her oxygen saturation was in the 80s on room air, states she is feeling much better now, is speaking in full sentences, pulse ox was at 99% on the CPAP machine. Patient denies any chest pain, does complain of shortness of breath, denies any fevers chills, denies any cough, states she was seen at the pain clinic for her injections for her chronic back pain. Past Medical History: Diagnosis Date Diabetes mellitus (HCC) Hypertension Past Surgical History: Procedure Laterality Date ABDOMINAL ADHESION SURGERY ABDOMINAL HERNIA REPAIR APPENDECTOMY CATARACT SURGERY Bilateral SECTION CHOLECYSTECTOMY HYSTERECTOMY JOINT REPLACEMENT Right knee REPAIR, CHIARI MALFORMATION REPAIR, KNEE, MENISCUS Bilateral ROTATOR CUFF REPAIR Right TONSILLECTOMY VASCULAR SURGERY No family history on file. Social History Substance Use Topics Smoking status: Former Smoker Smokeless tobacco: Never Used Comment: smoke pack a day for 6 months 40 years ago. Alcohol use Yes Comment: 2 drinks weekly. Review of Systems Constitutional: Negative. HENT: Negative. Eyes: Negative. Respiratory: Negative. Cardiovascular: Negative. Gastrointestinal: Negative. Endocrine: Negative. Genitourinary: Negative. Musculoskeletal: Negative. Skin: Negative. Allergic/Immunologic: Negative. Neurological: Negative. Hematological: Negative. Psychiatric/Behavioral: Negative. All other systems reviewed and are negative. Physical Exam BP 127/59 | Pulse 79 | Temp 36.6 C (97.9 F) (Oral) | Resp 17 | Ht 1.676 m (5' 6") | Wt 108.9 kg (240 lb 1.3 oz) | SpO2 92% | BMI 38.75 kg/m Weight Method: Actual Physical Exam Constitutional: She is oriented to person, place, and time. She appears well- developed and well-nourished. No distress. HENT: Head: Normocephalic and atraumatic. Nose: Nose normal. Mouth/Throat: Oropharynx is clear and moist. Eyes: Conjunctivae and EOM are normal. Neck: Normal range of motion. Neck supple. Cardiovascular: Normal rate, regular rhythm and normal heart sounds. Exam reveals no gallop and no friction rub. Pulmonary/Chest: Effort normal and breath sounds normal. No respiratory distress. She has no wheezes. She exhibits no tenderness. Abdominal: Soft. Bowel sounds are normal. She exhibits no distension. There is no tenderness. There is no rebound and no guarding. Musculoskeletal: Normal range of motion. She exhibits no edema or tenderness. Neurological: She is alert and oriented to person, place, and time. No cranial nerve deficit. She exhibits normal muscle tone. Coordination normal. Skin: Skin is warm and dry. No rash noted. She is not diaphoretic. No erythema. Psychiatric: She has a normal mood and affect. Her behavior is normal. Thought content normal. Nursing note and vitals reviewed. ED Course Procedures MDM The labs from this visit are Results for orders placed or performed during the hospital encounter of (from the past 24 hour(s)) Electrocardiogram (ECG) Result Value Ref Range QRSd 68 QT 352 QTC 434 ECGHR 91 ECGPR 176 Comprehensive Metabolic Panel Result Value Ref Range Sodium 136 133 - 147 MEQ/L Potassium 4.0 3.5 - 5.3 MEQ/L Chloride 101 96 - 112 MEQ/L Carbon Dioxide 24 20 - 32 MEQ/L Anion Gap 11 5 - 17 Calcium 9.0 8.4 - 10.5 mg/dL Glucose 255 (H) 70 - 100 mg/dL Protein Total Serum 6.7 6.0 - 8.2 g/dL Albumin 3.7 3.5 - 5.0 g/dL Alkaline Phosphatase 88 42 - 140 IU/L Alanine Aminotransferase 32 0 - 34 IU/L Aspartate Aminotransferase 33 15 - 46 IU/L Bilirubin Total 0.7 0.2 - 1.3 mg/dL Blood Urea Nitrogen 17 7 - 26 mg/dL Creatinine 0.6 0.4 - 1.1 mg/dL GFR Female AA 120 60 - 200 GFR Female Non-AA 100 60 - 200 NTproBNP Result Value Ref Range NTproBNP 28 pg/mL Troponin Result Value Ref Range Troponin <0.01 0.00 - 0.03 ng/mL CBC and Diff (manual diff if necessary) Result Value Ref Range WBC 7.54 4.00 - 11.00 TH/uL RBC 4.61 4.00 - 5.00 MIL/uL Hemoglobin 11.5 (L) 12.0 - 15.0 g/dL Hematocrit 36 36 - 45 % MCV 78 (L) 80 - 99 fL MCH 25 (L) 27 - 34 pg MCHC 32 32 - 36 % RDW 15.9 (H) 9.0 - 14.5 % Platelet Count 230 140 - 400 TH/uL MPV 10.2 9.4 - 12.3 fL Nucleated RBCs 0 0 - 0 /100 % Neutrophils 63 45 - 78 % %Lymphocytes 28 15 - 47 % %Monocytes 6 0 - 12 % %Eosinophils 2 0 - 7 % %Basophils 0 0 - 2 % % Imm Grans 1 0 - 1 % # Granulocytes 4.80 1.70 - 6.80 TH/uL # Lymphocytes 2.11 1.00 - 3.30 TH/uL # Monocytes 0.43 0.20 - 0.90 TH/uL # Eosinophils 0.17 0.00 - 0.40 TH/uL # Basophils 0.03 0.00 - 0.10 TH/uL The radiology results are CT Angio Chest Final Result 1. Negative for acute pulmonary embolism. 2. Patchy groundglass attenuation throughout both lungs, which may represent mild atelectasis, edema, or pneumonitis. 3. Hepatic steatosis and probable hepatomegaly. READING SITE: [facility] XR Chest single view frontal Final Result No acute disease. No follow-up provider specified. EKG: per my interpretation shows nsr with a rate of 91 . There are not any ST changes concerning for ischemia. Had long d/w patient, dramatic decline in function due to dyspnea and severe dyspnea with minimal activity, has exhausted outpatient resources and cannot get into see pulmonary until May, today required ems and cpap to bring oxygen out of the 80s although clinicaly stable with improved oxygenation on 2L in ER, workup otherwise normal, admit for obs ED Clinical Impression 1. Shortness of breath 2. Dyspnea, unspecified type Patient ED Dispo ED Disposition Admit Valdo Park MD 03/26/18 1616 Valdo Park MD 03/26/18 1616 * ED Notes - Keira Osman RN - 03/26/2018 12:50 PM CDT Per EMS, pt requested to be on cpap machine. Pt stated she wears machine at home 20 hours out of door and laying flat helps her breathe easier. PT 96% room air. PT has a port that she states had it place due to being a poor stick 4 years ago when she was receiving dilaudid injections. in this encounter Plan of Treatment Name Priority Associated Diagnoses Order Schedule Culture, Sputum with Gram Stain Routine Once - Routine for 1 Occurrences starting 03/27/2018 until 03/27/2018 Culture, Body Fluid with Gram Stain Routine Once - Routine for 1 Occurrences starting 03/29/2018 until 03/29/2018 as of this encounter Procedures Procedure Name [...] RESPIRATORY CRITERIA Routine 03/27/2018 2:53 PM CDT GASTROINTESTINAL PATHOGEN Routine 03/27/2018 Results for this PANEL BY PCR 1:20 PM CDT procedure are in the results section. MISCELLANEOUS Routine 03/27/2018 Results for this MICROBIOLOGY [...] CDT procedure are in the results section. in this encounter Results * GLUCOSE POC (03/30/2018 11:23 AM) Only the most recent of 20 results within the time period is included. Glucose POC 198 (H) 70 - 100 mg/dL [facility] Performing Organization Address City/State/Zipcode Phone Number [facility] [address] [place] [address] * CBC and Diff (manual diff if necessary) (03/30/2018 4:47 AM) Only the most recent of 4 results within the time period is included. WBC 8.28 4.00 - 11.00 TH/uL [facility] RBC 5.03 (H) 4.00 - 5.00 MIL/uL [facility] Hemoglobin 12.2 12.0 - 15.0 g/dL [facility] Hematocrit 39 36 - 45 % [facility] MCV 77 (L) 80 - 99 fL [facility] MCH 24 (L) 27 - 34 pg [facility] MCHC 32 32 - 36 % [facility] RDW 16.3 (H) 9.0 - 14.5 % [facility] Platelet Count 291 140 - 400 TH/uL [facility] MPV 10.2 9.4 - 12.3 fL [facility] Nucleated RBCs 0 0 - 0 /100 [facility] % Neutrophils 64 45 - 78 % [facility] %Lymphocytes 26 15 - 47 % [facility] %Monocytes 6 0 - 12 % [facility] %Eosinophils 1 0 - 7 % [facility] %Basophils 1 0 - 2 % [facility] % Imm Grans 1 0 - 1 % [facility] # Granulocytes 5.42 1.70 - 6.80 TH/uL [facility] # Lymphocytes 2.18 1.00 - 3.30 TH/uL [facility] # Monocytes 0.53 0.20 - 0.90 TH/uL [facility] # Eosinophils 0.11 0.00 - 0.40 TH/uL [facility] # Basophils 0.04 0.00 - 0.10 TH/uL [facility] Specimen Blood Narrative Performed At This order is a replacement of the rejected order with accession number [facility] [id number]. LAB Performing Organization Address [facility]/[employer] Phone Number [facility] [address] [place] [address] [phone] * Magnesium (03/30/2018 3:30 AM) Only the most recent of 4 results within the time period is included. Magnesium 1.9 1.4 - 2.7 mg/dL [facility] Specimen Blood Performing Organization Address City/[facility]/[employer] Phone Number [facility] [address] [place], [place] [phone] * Comprehensive Metabolic Panel (03/30/2018 3:30 AM) Only the most recent of 2 results within the time period is included. Sodium 136 133 - 147 MEQ/L [facility] Potassium 4.2 3.5 - 5.3 MEQ/L [facility] Chloride 99 96 - 112 MEQ/L [facility] Carbon Dioxide 26 20 - 32 MEQ/L [facility] Anion Gap 11 5 - 17 [facility] Calcium 10.1 8.4 - 10.5 mg/dL [facility] Glucose 195 (H) 70 - 100 mg/dL [facility] Protein Total Serum 7.0 6.0 - 8.2 g/dL [facility] Albumin 4.1 3.5 - 5.0 g/dL [facility] Alkaline Phosphatase 97 42 - 140 IU/L [facility] Alanine Aminotransferase 24Comment: ALT reference range 0 - 34 IU/L [facility] changed on 03-03-2018 LAB Aspartate 31 15 - 46 IU/L [facility] Aminotransferase LAB Bilirubin Total 1.2 0.2 - 1.3 mg/dL [facility] Blood Urea Nitrogen 18 7 - 26 mg/dL [facility] Creatinine 0.7 0.4 - 1.1 mg/dL [facility] GFR Female AA 101 60 - 200 [facility] Comment: LAB Chronic Kidney Disease less than 60 mL/min/1.73 sq.m Kidney failure less than 15 mL/min/1.73 sq.m GFR Female Non-AA 84 60 - 200 [facility] Comment: LAB Chronic Kidney Disease less than 60 mL/min/1.73 sq.m Kidney failure less than 15 mL/min/1.73 sq.m Specimen Blood Performing Organization Address City/State/Zipcode Phone Number [facility] [address] [place] [address] [phone] * Basic Metabolic Panel (03/29/2018 8:15 AM) Only the most recent of 3 results within the time period is included. Sodium 136 133 - 147 MEQ/L [facility] Potassium 4.3 3.5 - 5.3 MEQ/L [facility] Chloride 100 96 - 112 MEQ/L [facility] Carbon Dioxide 24 20 - 32 MEQ/L [facility] Anion Gap 12 5 - 17 [facility] Calcium 10.1 8.4 - 10.5 mg/dL [facility] Glucose 207 (H) 70 - 100 mg/dL [facility] Blood Urea Nitrogen 17 7 - 26 mg/dL [facility] Creatinine 0.7 0.4 - 1.1 mg/dL [facility] GFR Female AA 101 60 - 200 [facility] Comment: LAB Chronic Kidney Disease less than 60 mL/min/1.73 sq.m Kidney failure less than 15 mL/min/1.73 sq.m GFR Female Non-AA 84 60 - 200 [facility] Comment: LAB Chronic Kidney Disease less than 60 mL/min/1.73 sq.m Kidney failure less than 15 mL/min/1.73 sq.m Specimen Blood Performing Organization Address [facility]/[employer] Phone Number [facility] [address] [place] [address] * Arterial Blood Gas (03/28/2018 5:11 PM) Sample Site RADIAL L [facility] Fraction of Inspired 0.21 [facility] Oxygen LAB Total Rate 20 bpm [facility] PO2 Arterial 74 (L) 80 - 100 mm Hg [facility] pCO2 Arterial 34 (L) 35 - 45 mm Hg [facility] pH Arterial 7.47 (H) 7.36 - 7.44 units [facility] Bicarbonate 24.7 19.0 - 29.0 MEQ/L [facility] Base Excess 1.5 -3.0 - 3.0 MEQ/L [facility] Performing Organization Address [facility] Phone Number [facility] [address] [place] [address] [phone] * Procalcitonin (03/28/2018 5:05 AM) Only the most recent of 2 results within the time period is included. Procalcitonin 0.31 (H) 0.00 - 0.10 ng/mL [facility] Comment: [facility]AL PCT Value LABORATORIES Interpretation 0.10 [...] procalcitonin levels. Specimen Blood Performing Organization Address City/[facility]/Zipcode Phone Number [facility] [address] [place] [address] LABORATORIES * Complete Blood Count (03/28/2018 5:05 AM) WBC 6.57 4.00 - 11.00 TH/uL [facility] RBC 4.56 4.00 - 5.00 MIL/uL [facility] Hemoglobin 11.3 (L) 12.0 - 15.0 g/dL [facility] Hematocrit 36 36 - 45 % [facility] MCV 78 (L) 80 - 99 fL [facility] MCH 25 (L) 27 - 34 pg [facility] MCHC 32 32 - 36 % [facility] RDW 16.1 (H) 9.0 - 14.5 % [facility] Platelet Count 226 140 - 400 TH/uL [facility] MPV 10.3 9.4 - 12.3 fL [facility] Nucleated RBCs 0 0 - 0 /100 [facility] Specimen Blood Performing Organization Address [facility]/[place] Phone Number [facility] [address] [place] [address] * Miscellaneous Microbiology (03/27/2018 1:20 PM) Isolate 1 Salmonella bhakti (A) [facility] Isolate 1 Test performed at [facility] [address] [facility] [address] [place] [address] (A) Specimen Stool Organism Antibiotic Method Susceptibility Salmonella bhakti AMPICILLIN >16: Intermediate Salmonella bhakti BACTRIM/SEPTRA >2/38: Resistant Salmonella bhakti CIPROFLOXACIN 0.25: Sensitive Performing Organization Address City/[facility]/[place] Phone Number [facility] [address] [place] [address] LABORATORIES * Gastrointestinal Pathogen Panel by PCR (03/27/2018 1:20 PM) Campylobacter Not Detected Not Detected [facility] Clostridium difficile Not DetectedComment: Detection Not Detected [facility] toxin A/B of C. difficile may reflect REGIONAL asymptomatic carriage or C. LABORATORIES difficile-associated diarrhea. Plesiomonas shigelloides Not Detected Not Detected [facility] Salmonella Detected (A) Not Detected [facility] Vibrio Not Detected Not Detected [facility] Vibrio cholerae Not Detected Not Detected [facility] Yersinia enterocolitica Not Detected Not Detected [facility] Enteroaggregative E. coli Not Detected Not Detected [facility] ([facility]) [facility] Enteropathogenic E. coli Not Detected Not Detected [facility] (EPEC) [facility] Enterotoxigenic E. coli Not Detected Not Detected [facility] ([facility]) [facility] Shiga-like Not Detected Not Detected [facility] toxin-producing E. coli [facility] ([facility] E. coli O157 Not Detected Not Detected [facility] Shigella/Enteroinvasive Not Detected Not Detected [facility] E. coli (EIEC) [facility] Cryptosporidium Not Detected Not Detected [facility] Cyclospora cayetanensis Not Detected Not Detected [facility] Entamoeba histolytica Not Detected Not Detected [facility] Giardia lamblia Not Detected Not Detected [facility] Adenovirus F 40/41 Not Detected Not Detected [facility] Astrovirus Not Detected Not Detected [facility] Norovirus GI/GII Not Detected Not Detected [facility] Rotavirus A Not Detected Not Detected [facility] Sapovirus Not Detected Not Detected [facility] Specimen Stool Performing Organization Address City/State/Zipcode Phone Number [facility] [address] [place] [address] [phone] LABORATORIES * Echo Complete with Doppler and [...] [facility] ECHOCARDIOGRAM REPORT [facility] Name:MICKI KELLEY Date:03/27/2018 08:19 Chart #:[id number] : 1950 Location:[facility] IPSono: [email or web address] Age: 67 Gender:FReferring: ANDREA OLGUIN Room #: 212 Fellow: Indication:Dyspnea, unspecified Procedure: 99013 Complete Echo 2D/Colorflow/Doppler BP: 144 / 76HR:70Ht: [...] mmHg MITRAL VALVE DOPPLER Mitral E Point Kisfcyuz75.8 cm/sMitral E to A Ratio0.81 MitralA Point [...] ECHOCARDIOGRAM REPORT [facility] Name: MICKI KELLEY Date: 03/27/2018 08:19 Chart #: [id number] : 1950 Location: [facility] Sono: [email or web address] Age: 67 Gender: F Referring: ANDREA OLGUIN Room #: 212 Fellow: Indication:Dyspnea, unspecified Procedure: 32195 Complete Echo 2D/Colorflow/Doppler BP: 144 / 76 [...] 27 March 2018 09:18 Performing Organization Address [facility]/[employer] Phone Number [facility] * Thyroid Stimulating Hormone (03/27/2018 1:50 AM) Thyroid Stimulating 1.79 0.47 - 4.68 uIU/mL [facility] Hormone LAB Specimen Blood Performing Organization Address [facility]/[employer] Phone Number [facility] [address] [place] [address] * Lipid Panel (03/27/2018 1:50 AM) Cholesterol 174 100 - 200 mg/dL [facility] HDL Cholesterol 36 (L) 40 - 110 mg/dL [facility] Non-HDL Cholesterol 138 (H) 0 - 130 mg/dL [facility] Triglycerides 322 (H) 0 - 150 mg/dL [facility] LDL Cholesterol 74 0 - 99 mg/dL [facility] Cholesterol/HDL Ratio 4.8 (H) 0.0 - 4.5 [facility] Specimen Blood Performing Organization Address [facility]/[place] Phone Number [facility] [address] [place], [place] [id number] LABORATORIES * Respiratory Panel by PCR (03/26/2018 8:50 PM) Adenovirus Not Detected Not Detected [facility] Coronavirus Not Detected Not Detected [facility] Human Metapneumovirus Not Detected Not Detected [facility] (hMPV) [facility] Human Rhinovirus Not Detected Not Detected [facility] Enterovirus [facility] Influenza A Not Detected Not Detected [facility] Influenza B Not Detected Not Detected [facility] Parainfluenza Virus Not Detected Not Detected [facility] Respiratory Syncytial Not Detected Not Detected [facility] Virus Pl [facility] Bordetella pertussis Not Detected Not Detected [facility] Chlamydophila pneumoniae Not Detected Not Detected [facility] Mycoplasma pneumoniae Not Detected Not Detected [facility] Source NASOPHAR [facility] Specimen Nasopharynx, Performing Organization Address City/State/Zipcode Phone Number [facility] [address] [place] [address] LABORATORIES * Thyroid [place] (03/26/2018 4:22 PM) Thyroid Stimulating 2.67 0.47 - 4.68 uIU/mL [facility] Hormone LAB Specimen Blood Performing Organization Address City/[facility]/Zipcode Phone Number [facility] [address] [place] [address] * CT Angio Chest (03/26/2018 3:38 PM) Impressions Performed At 1.Negative for acute pulmonary embolism. [facility] 2.Patchy groundglass attenuation throughout both lungs, which may represent mild atelectasis, edema, or pneumonitis. 3.Hepatic steatosis and probable hepatomegaly. READING SITE: [facility] Narrative Performed At Patient: ISI KELLEY Sex#:F # 1950 Malia#:[id number] Location:[facility]-07Accession#: [id number] Procedure Requested:[id number] CT ANGIO CHEST Reason for Exam:shortness of [...] - 03/26/2018 4:02 PM CDT Patient: MICKI KELLEY Sex#: F # 1950 Malia#: [id number] Location: [facility]-07 Procedure Requested: [id number] CT ANGIO CHEST Reason for Exam: shortness [...] Hepatic steatosis and probable hepatomegaly. READING SITE: [facility] Performing Organization Address City/State/Zipcode Phone Number [facility] * Hemoglobin A1C (03/26/2018 1:57 PM) Hemoglobin A1C 8.1 (H) 4.0 - 5.6 % [facility] Comment: REGIONAL Non-diabetic LABORATORIES 4.0 - 5.6 % Prediabetes 5.7 - 6.4 % Diabetes >=6.5 % Specimen Blood Performing Organization Address City/[facility]/Zipcode Phone Number [address] [address] LABORATORIES * XR Chest single view frontal (03/26/2018 1:24 PM) Impressions Performed At No acute disease. SAM Narrative Performed At Patient: ISI KELLEY Sex#:F # 1950 Malia#:[id number] Location:[facility]-08Accession#: [id number] Procedure Requested:[id number] XR CHEST SINGLE VIEW FRONTAL Reason for Exam:cough Exam Ordered:7 Exam Date/Time:4 Begin exam date/time:5 Reading Site: Counts Include [address] [facility]. XR CHEST SINGLE VIEW FRONTAL, 03/26/2018 1:24 PM Reason for Examination: cough Findings:The left central line terminates near the superior cavoatrial junction. The heart is normal in size. Mediastinal contours are within normal limits. Pulmonary vessels are normal. The lungs are clear.No pleural abnormalities are identified. Procedure Note Interface, Rad Results In - 03/26/2018 2:13 PM CDT Patient: MICKI KELLEY Sex#: F # 1950 Malia#: [id number] Location: [facility] ED [facility]-08 Procedure Requested: [id number] XR CHEST SINGLE VIEW FRONTAL Reason for Exam: cough Exam Ordered: 03/26/2018 1257 Exam Date/Time: 03/26/2018 1324 Begin exam date/time: 03/26/2018 1305 Reading Site: Counts Include [address] [facility]. XR CHEST SINGLE VIEW FRONTAL, 03/26/2018 1:24 PM Reason for Examination: cough Findings: The left central line terminates near the superior cavoatrial junction. The heart is normal in size. Mediastinal contours are within normal limits. Pulmonary vessels are normal. The lungs are clear. No pleural abnormalities are identified. IMPRESSION No acute disease. Performing Organization Address [facility] Phone Number [facility] * Troponin (03/26/2018 1:15 PM) Troponin <0.01 0.00 - 0.03 ng/mL [facility] Comment: LAB Troponin ValueInterpretation 0.00 - 0.03 Healthy 0.04 - 0.12 Increased Cardiac Risk >0.12M yocardial Infarction Troponin may not become elevated until 6 to 8 hours after onset of symptoms. Specimen Blood Performing Organization Address [facility] Phone Number [facility] [address] [place] [address] [phone] * NTproBNP (03/26/2018 1:15 PM) NTproBNP 28 pg/mL [facility] Comment: LAB NT-proBNPReference Ranges: <50 yr<450 pg/mL 50-75 yr<900 pg/mL >75 yr <1800 pg/mL A cutoff value of 1200 pg/mL is recommended in patients 50 to 70 years of age with a GFR between 30 and 60.NT-proBNP is unreliable in patients with GFR <30. 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: [id number] :1950 Requested By: VALDO PARK Order Number: [id number] MD: Measurements IntervalsAxis Rate: 91 P:29 OR: 176QRS:6 QRSD: 68 T:88 QT: 352 QTc:434 Interpretive Statements SINUS RHYTHM BORDERLINE T ABNORMALITIES, ANT-LAT LEADS Procedure Note Interface, External Ris In - 03/26/2018 12:56 PM CDT [facility] ED Test Date: 2018-03-26 Pat Name: MICKI KELLEY Department: PASHA Room: [facility] Gender: Female Linen Clerk: [id number] : 1950 Requested By: VALDO PARK Order Number: [id number] Reading MD: Measurements Intervals [place] Rate: 91 P: 29 OR: 176 QRS: 6 QRSD: 68 T: 88 QT: 352 QTc: 434 Interpretive Statements SINUS RHYTHM BORDERLINE T ABNORMALITIES, ANT-LAT LEADS Performing Organization Address City/State/Zipcode Phone Number 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 in this encounter Visit Diagnoses Diagnosis Dyspnea, unspecified type Obesity, unspecified classification, unspecified obesity type, unspecified whether serious comorbidity present S/P partial thyroidectomy Other postprocedural status Hepatic steatosis Other chronic nonalcoholic liver disease Pain, neuropathic Essential hypertension Unspecified essential hypertension Type 2 diabetes mellitus with hyperglycemia, without long-term current use of insulin (HCC) Hyperlipemia Other and unspecified hyperlipidemia Overactive bladder Hypertonicity of bladder Diarrhea Admitting Diagnoses Diagnosis Shortness of breath Dyspnea, unspecified type Shortness of breath Administered Medications Medication Order MAR Action Action Date Dose Rate Site albuterol (ACCUNEB) 2.5 mg/3 mL (0.083 Given 03/27/2018 2.5 mg %) nebulizer solution 2.5 mg 20:18 CDT 2.5 mg, Nebulization, 4 times daily, First dose on Fri03/27/18 at 1700 Given 03/28/2018 2.5 mg 07:20 CDT albuterol (ACCUNEB) 2.5 mg/3 mL (0.083 Given 03/28/2018 2.5 mg %) nebulizer solution 2.5 mg 14:48 CDT 2.5 mg, Nebulization, Every 4 hours PRN, wheezing, shortness of air, Starting Fri03/27/18 at 1457 Given 03/29/2018 2.5 mg 05:08 CDT albuterol (ACCUNEB) 2.5 mg/3 mL (0.083 Given 03/29/2018 2.5 mg %) nebulizer solution 2.5 mg 10:19 CDT 2.5 mg, Nebulization, Once, 03/29/18 at 1030, For 1 dose albuterol (ACCUNEB) 2.5 mg/3 mL (0.083 Given 03/29/2018 2.5 mg %) nebulizer solution 2.5 mg 20:30 CDT 2.5 mg, Nebulization, Every 4 hours PRN, wheezing, shortness of air, Starting 03/29/18 at 1500 Given 03/30/2018 2.5 mg 11:15 CDT albuterol (ACCUNEB) 2.5 mg/3 mL (0.083 Given by 03/29/2018 %) nebulizer solution Other 10:15 CDT Starting 03/29/18 at 1013, For 1 dose, Helen Tello: cabinet override ALPRAZolam (XANAX) tablet 1 mg Given 03/28/2018 1 mg 1 mg, Oral, Nightly PRN, anxiety, 01:17 CDT Starting Rin 03/26/18 at 1723 Given 03/28/2018 1 mg 20:58 CDT Given 03/29/2018 1 mg 20:23 CDT alteplase (CATHFLO ACTIVASE) injection 2 mg 2 mg, Intra-Catheter, As needed, declotting central catheter or sluggish/occluded CVC line, Starting 03/30/18 at 1414, Use 2 mg/2 mL to declot catheter as needed, Declot catheter per Central Venous Access Device, Declotting procedure in [place] with 2.2 mL sterile water for injection aspirin tablet 325 mg Given 03/28/2018 325 mg 325 mg, Oral, Daily, First dose on Fri 08:35 CDT 03/26/18 at 1745 Given 03/29/2018 325 mg 08:59 CDT Given 03/30/2018 325 mg 08:17 CDT citalopram (CeleXA) tablet 10 mg Given 03/26/2018 10 mg 10 mg, Oral, Daily, First dose on Rin 18:42 CDT 03/26/18 at 1800 Given 03/27/2018 10 mg 08:09 CDT citalopram (CeleXA) tablet 10 mg Given 03/28/2018 10 mg 10 mg, Oral, Daily, First dose on Fri 08:35 CDT 03/27/18 at 1545 Given 03/29/2018 10 mg 09:08 CDT Given 03/30/2018 10 mg 08:17 CDT dextrose (D50W) 50 % injection 25-50 mL 25-50 mL, Intravenous, As needed, low blood sugar, Starting Rin 03/26/18 at 1729, Give if patient NPO and IV access already available. If no IV access give Glucagon SQ or IM in arm and turn patient on side. Recheck BG in 15 minutes. Repeat until glucose greater than 80. dextrose 10% (D10W) bolus 125-250 mL 125-250 mL, Intravenous, at 500-1,000 mL/hr, As needed, low blood sugar, Starting Rin 03/26/18 at 1729, Give if patient NPO and IV access already available. If no IV access give Glucagon SQ or IM in arm and turn patient on side. Recheck BG in 15 minutes. Repeat until glucose greater than 80. dextrose 50% (D50W) syringe 25-50 mL 25-50 mL, Intravenous, As needed, low blood sugar, Starting Rin 03/26/18 at 1729, Give if patient NPO and IV access already available. If no IV access give Glucagon SQ or IM in arm and turn patient on side. Recheck BG in 15 minutes. Repeat until glucose greater than 80. docusate sodium (COLACE) capsule 100 mg Given 03/30/2018 100 mg 100 mg, Oral, 2 times daily, First dose 08:26 CDT on Rin 03/26/18 at 2100, DO NOT CRUSH OR CHEW. furosemide (LASIX) injection 20 mg Given 03/26/2018 20 mg 20 mg, Intravenous, Once, Rin 03/26/18 at 18:42 CDT 1745, For 1 dose, Usual Dose Furosemide - 20 - 40 mg i.v. (Max 600 mg/day) gabapentin (NEURONTIN) capsule 300 mg Given 03/29/2018 300 mg 300 mg, Oral, 3 times daily, First dose 17:09 CDT on Rin 03/26/18 at 2100 Given 03/29/2018 300 mg 20:23 CDT Given 03/30/2018 300 mg 08:17 CDT gemfibrozil (LOPID) tablet 600 mg Given 03/29/2018 600 mg 600 mg, Oral, 2 times daily before 08:59 CDT meals, First dose on Fri03/26/18 at 1800 Given 03/29/2018 600 mg 17:09 CDT Given 03/30/2018 600 mg 07:41 CDT glucagon (GLUCAGEN) injection 1 mg 1 mg, Intramuscular, As needed, low blood sugar, low blood sugar, Starting Fri03/26/18 at 1729, If no IV access. May give IM or SQ in arm and turn patient on side. glucagon (GLUCAGEN) injection 1 mg 1 mg, Subcutaneous, As needed, low blood sugar, low blood sugar, Starting Fri03/26/18 at 1729, If no IV access. May give IM or SQ in arm and turn patient on side. heparin (porcine) 10 unit/mL injection Given 03/30/2018 50 Units 50 Units 14:24 CDT 50 Units, Intra-Catheter, As needed, line care, Starting 03/30/18 at 1414, Upon discharge, flush 10 mL NS, followed by 5 mL of heparin 10 units/mL, then de-access. heparin (porcine) 5,000 unit/mL Given 03/29/2018 5,000 Units Abdominal injection 5,000 Units 13:50 CDT Tissue 5,000 Units, Subcutaneous, Every 8 hours, First dose on Fri03/26/18 at 1745 Given 03/29/2018 5,000 Units Abdominal 20:25 CDT Tissue Given 03/30/2018 5,000 Units Abdominal 07:41 CDT Tissue hydroCHLOROthiazide (HYDRODIURIL) tablet Given 03/28/2018 25 mg 25 mg 08:37 CDT 25 mg, Oral, Daily, First dose on Fri03/27/18 at 1600 Given 03/29/2018 25 mg 09:00 CDT Given 03/30/2018 25 mg 08:17 CDT insulin lispro (HumaLOG) injection 2-7 Given 03/29/2018 2 Units Abdominal Units 21:00 CDT Tissue 2-7 Units, Subcutaneous, 4 times daily before meals and nightly, First dose on Fri03/26/18 at 1745, LEVEL 3 Give in addition to scheduled mealtime insulin per table Glucose Level (mg/dL) Dose <120 No Insulin 121-150 No Insulin 151-200 2 units 201-250 3 units 251-300 4 units 301-350 5 units 351-4006 units >4007 units Bedtime Correction - If glucose level is < 200, do not give any correction dose If glucose level is > 200, give full dose of correction dose and check BG @ 0000 and 0300 DO NOT GIVE for any 2 hours post meal fingerstick blood glucose checks If pt NPO or on continuous enteral/parenteral nutrition - give with scheduled fingerstick blood glucose check - dose per table Given 03/30/2018 2 Units Abdominal 08:15 CDT Tissue Given 03/30/2018 2 Units Abdominal 12:33 CDT Tissue iohexol (OMNIPAQUE) 350 mg iodine/mL Given 03/26/2018 99 mL injection 1-500 mL 15:38 CDT 1-500 mL, Intravenous, Once in imaging, contrast, Starting Rin 03/26/18 at 1523, For 1 dose ipratropium-albuterol (DUO-NEB) 0.5-3 Given 03/27/2018 3 mL mg/3 mL nebulizer solution 3 mL 14:44 CDT 3 mL, Inhalation, 4 times daily PRN, wheezing, shortness of air, Starting Rin 03/26/18 at 1745 Given 03/28/2018 3 mL 20:44 CDT magnesium sulfate IVPB 2 gram (premix) New Bag 03/27/2018 2 g 25 mL/hr 2 g, Intravenous, Administer over 2 17:35 CDT Hours, Once, Fri03/27/18 at 1615, For 1 dose magnesium sulfate IVPB 4 gram (premix) 4 g, Intravenous, at 25 mL/hr, As needed, for magnesium replacement in telemetry patients, Starting Rin 03/26/18 at 1721, Administer 4 grams over 4 hours for magnesium level less than or equal to 1.4 mg/dL. Repeat magnesium level in AM. Administer only if SCr < 2 within the previous 48 hours and urine output > 60 mL for 2 hours or > 360 mL every 12 hours. mirabegron (MYRBETRIQ) ER tablet 50 mg Given 03/28/2018 50 mg 50 mg, Oral, Daily, First dose on Rin 08:34 CDT 03/26/18 at 1800, DO NOT CRUSH OR CHEW. Given 03/29/2018 50 mg 09:00 CDT Given 03/30/2018 50 mg 08:17 CDT oxybutynin (DITROPAN) tablet 5 mg Given 03/29/2018 5 mg 5 mg, Oral, 2 times daily, First dose on 08:59 CDT Rin 03/26/18 at 2100 Given 03/29/2018 5 mg 20:23 CDT Given 03/30/2018 5 mg 08:17 CDT pantoprazole (PROTONIX) EC tablet 40 mg Given 03/28/2018 40 mg 40 mg, Oral, Daily, First dose on Rin 06:06 CDT 03/26/18 at 1800, DO NOT CRUSH OR CHEW. Given 03/29/2018 40 mg 05:32 CDT Given 03/30/2018 40 mg 07:41 CDT polyvinyl alcohol (LIQUIFILM TEARS) 1.4 % ophthalmic solution 1 drop 1 drop, Both Eyes, As needed, dry eyes, Indications: Dry Eye, Starting [facility] 03/30/18 at 0152 potassium chloride (KAYCIEL) 20 mEq/15 mL solution 20-60 mEq 20-60 mEq, Oral, As needed, for potassium replacement in telemetry patients, Starting [facility] 03/26/18 at 1721, Give if unable to swallow potassium tablets. Administer 20 mEq for potassium level 3.6 to 3.9 mg/dL. Repeat potassium level in AM. Administer 40 mEq for potassium level 3.1 to 3.5 mg/dL. Repeat potassium level 4 hours after the last oral dose administered. Administer 60 mEq for potassium level less than or equal to 3. (20 mEq every hour for 3 doses). Repeat potassium level 4 hours after last oral dose administered. Administer only if SCr < 2 within the previous 48 hours and urine output > 60 mL for 2 hours or > 360 mL every 12 hours. potassium chloride (KLOR-CON) CR tablet 20-60 mEq 20-60 mEq, Oral, As needed, for potassium replacement in telemetry patients, Starting [facility] 03/26/18 at 1721, Administer 20 mEq for potassium level 3.6 to 3.9 mg/dL. Repeat potassium level in AM. Administer 40 mEq for potassium level 3.1 to 3.5 mg/dL. Repeat potassium level 4 hours after last oral dose administered. Administer 60 mEq for potassium level less than or equal to 3. (20 mEq every hour for 3 doses). Repeat potassium level 4 hours after last oral dose administered. Administer only if SCr < 2 within the previous 48 hours and urine output > 60 mL for 2 hours or > 360 mL every 12 hours. DO NOT CRUSH OR CHEW. potassium chloride 20 mEq in 100 mL IVPB 20 mEq, Intravenous, Administer over 2 Hours, As needed, for potassium replacement in telemetry patients, Starting Rin 03/26/18 at 1721, Give if unable to take oral potassium. Administer 20 mEq over 2 hours for potassium level 3.6 to 3.9 mg/dL. Repeat potassium level in AM. Administer 40 mEq over 4 hours for potassium level 3.1 to 3.5 mg/dL. Repeat potassium level 2 hours after infusion is complete. Administer 60 mEq over 6 hours for potassium level less than or equal to 3. Repeat potassium level 2 hours after infusion is complete. Administer only if SCr < 2 within the previous 48 hours and urine output > 60 mL for 2 hours or > 360 mL every 12 hours. Potassium chloride should be infused at a rate of 10 mEq/hr through a peripheral line, or at a rate of 20 mEq/hr through a central line. pramipexole (MIRAPEX) tablet 0.125 mg Given 03/26/2018 0.125 mg 0.125 mg, Oral, 3 times daily, First 20:37 CDT dose on Rin 03/26/18 at 2100 Given 03/27/2018 0.125 mg 08:09 CDT Given 03/27/2018 0.125 mg 14:32 CDT pramipexole (MIRAPEX) tablet 1 mg Given 03/29/2018 1 mg 1 mg, Oral, 3 times daily, Indications: 17:09 CDT Restless Legs Syndrome, First dose on Fri03/27/18 at 2100 Given 03/29/2018 1 mg 20:23 CDT Given 03/30/2018 1 mg 08:18 CDT pravastatin (PRAVACHOL) tablet 80 mg Given 03/27/2018 80 mg 80 mg, Oral, Nightly, First dose on Rin 20:14 CDT 03/26/18 at 2100 Given 03/28/2018 80 mg 20:58 CDT Given 03/29/2018 80 mg 19:18 CDT zolpidem (AMBIEN) tablet 5 mg Given 03/28/2018 5 mg 5 mg, Oral, Nightly PRN, sleep, Starting 01:17 CDT Rin 03/26/18 at 1733, Do not administer in the presence of confusion or delirium. Given 03/28/2018 5 mg 21:00 CDT Given 03/29/2018 5 mg 20:23 CDT in this encounter
--- OUTSIDE RECORDS SUMMARY | 2018-06-23 06:11 | XMS REPORT | Encounter Summary ---
Author Author [facility] Organization [facility] Address Unknown Phone Unavailable Care Team Providers Care Qa Specialist Name Role Phone Judah Lopez RN Unavailable Unavailable Brett Alcantar MD Unavailable Kumar Diggs MD Unavailable Doctor, Miscellaneous Unavailable Unavailable Barbara Pelaez MD Unavailable Adolfo Cardenas MD PCP Fausto Hsu Unavailable Unavailable Nallely Gomez MD Unavailable Silvano Potts MD Unavailable Sarwat Lozano APRN Unavailable Unavailable Aileen Jacobson MD Unavailable Unavailable Leonid Santos MD Unavailable Unavailable Danitza Rios MA,CCC-IMPREGNATOR Unavailable Unavailable Gela Cleary RN Unavailable Unavailable Hossein Minaya MD Unavailable Deonna Cunningham RN Unavailable Unavailable Anila Valencia RN Unavailable Unavailable Daniel Bond RN Unavailable Unavailable Yolette Moore MA,CCC-IMPREGNATOR Unavailable Unavailable Bryan Romero Unavailable Unavailable Nallely Tracy MA,CCC-IMPREGNATOR Unavailable Unavailable Haresh Kathleen MD Unavailable Teeete Taylor RN Unavailable Unavailable Bonnie Goss RN Unavailable Unavailable Maricel Albrecht MD Unavailable Kiarra Patrick RN Unavailable Unavailable Evelio Chris RN 2 Unavailable Todd Avendano MD Unavailable Tatiana Tim PA-C Unavailable Reason for Referral * Consult, Test & Treat Status Reason Specialty Diagnoses / Referred By Referred To Procedures Contact Contact No Auth Needed Cardiology Diagnoses Stefanie Milton Cvm Bhg Echopv Palpitations MD [facility] SOB (shortness [id number] [place] [address] [place] [id number] Phone: STRESS TEST CHG MYOCARDIAL [phone] SPECT MULTIPLE Fax: STUDIES [phone] * Consult, Test & Treat Status Reason Specialty Diagnoses / Referred By Referred To Procedures Contact Contact No Auth Needed Cardiology Diagnoses Stefanie Milton Cvm Bhg Echopv Palpitations MD Christiano [facility] SOB (shortness [id number] [place] [address] [place] [id number] Phone: STRESS TEST CHG MYOCARDIAL [phone] SPECT MULTIPLE Fax: STUDIES [phone] Reason for Visit * Consult, Test & Treat Status Reason Specialty Diagnoses / Referred By Referred To Procedures Contact Contact No Auth Needed Cardiology Diagnoses Stefanie Milton Cvm Bhg Echopv Palpitations MD [facility]o [facility] SOB (shortness [id number] [place] [address] [place] [id number] Phone: STRESS TEST CHG MYOCARDIAL [phone] SPECT MULTIPLE Fax: STUDIES [phone] Encounter Details Date Type Department Care Team Description 04/10/2018 [facility] Cardiovascular Medicine Stefanie Milton MD Encounter [facility] [place] [address] [place] [address] [phone] Social History Tobacco Use Types Packs/Day Years [...] Treatment Not on fileas of this encounter Procedures Procedure Name Priority Date/Time Associated Diagnosis Comments MULTI GATED Routine 04/10/2018 Palpitations Results for this 11:29 AM CDT SOB (shortness of breath) procedure are in the results section. in this encounter Results * [place] STRESS TEST (04/10/2018 11:29 AM) Baseline HR 70 bpm OTHER OUTSIDE LAB Baseline BP - Sys 150 mmHg OTHER OUTSIDE LAB Peak HR 93 bpm OTHER OUTSIDE LAB Peak BP - Sys 169 mmHg OTHER OUTSIDE LAB Referring Provider Adolfo Cardenas MD OTHER OUTSIDE LAB Stress Dose 3.37 mCi OTHER OUTSIDE LAB Baseline BP - Velásquez 80 mmHg OTHER OUTSIDE LAB Peak BP - Velásquez 65 OTHER OUTSIDE LAB Study Number [id number] OTHER OUTSIDE LAB PUL TO ESPERANZA COUNT RATIO 0.29 OTHER OUTSIDE LAB Rest Dose 0.82 mCi OTHER OUTSIDE LAB CV NUCLEAR BMI 36.2 kg/m2 OTHER OUTSIDE LAB MPI EF 77 % OTHER OUTSIDE LAB TID Ratio 0.89 OTHER OUTSIDE LAB Summed Stress Score 0 OTHER OUTSIDE LAB Summed Rest Score 0 OTHER OUTSIDE LAB LV volume 65 mL OTHER OUTSIDE LAB Nuclear Cardiology In aggregate the current study OTHER OUTSIDE LAB Mortality Risk is low risk in regards to predicted annual cardiovascular mortality rate. Narrative Performed At OTHER OUTSIDE LAB Nuclear Report [facility] Division of Nuclear Cardiac Imaging Consultation Report EXAMINATION:[facility] Gated [id number] Chloride myocardial perfusion single-photon emission computed tomography for viability, resting regional wall function, post stress ejection fraction, and perfusion imaging utilizing Regadenoson pharmacological stress. Date of Study:04/10/18 Study #:[id number] Billing ID:[id number] Referring Physician:Adolfo Cardenas MD Requested by:Stefanie Milton MD INDICATIONS FOR STUDY (HISTORY):This is a 68 year old female with a history of Hypertension.The patient has recently been experiencing increasing dyspnea and palpitations. This study is to evaluate for ischemia. PROCEDURAL DETAILS:Initially, the patient received a 5 ml intravenous infusion of Regadenoson at 0.08 mg/ml over 10 to 15 seconds. Approximately 20 seconds later 3.37 mCi of [id number] was injected intravenously. Throughout the infusion continuous electrocardiographic monitoring and serial electrocardiograms were obtained, as well as intermittent blood pressure recordings.Planar and gated tomographic images were then acquired approximately 5 minutes after discontinuation of the regadenoson infusion. The patient returned in approximately 4 hours and received an additional intravenous injection of 0.82 mCi of Zpqsytgf589 Chloride as a reinjected dose to assist in the detection of myocardial ischemia and viability.Images were then reacquired and compared to post stress images. FINDINGS: Pharmacological Stress Electrocardiogram:The patient's resting heart rate was 70 bpm and the resting blood pressure was 150/80.The patient s peak stress heart rate was 93 bpm and the peak stress blood pressure was 169/65. The patient experienced shortness of breath. The resting ECG shows Sinus rhythm with non- specific T wave changes. Following Regadenoson infusion there are no new diagnostic ECG changes. The T changes persist and are slightly accentuated. Conclusion:Pharmacologic stress ECG is negative for ischemia. Ibquwiznc-nk-Hlwvxzeygt Count Ratio:0.29(normal=or < 0.52). Scintigraphic (planar/tomographic):Planar images reveal the left ventricular cavity is normal in size.There is normal pulmonary tracer uptake.There is a significant degree of breast attenuation present.No transient ischemic dilation is present. Tomographic images were reconstructed in three orthogonal views.There is normal homogenous uptake of thallium in all myocardial segments.There are no perfusion defects.All myocardial segments appear viable. Polar coordinate map identifies no perfusion abnormalities. TID Ratio:0.89(normal <1.36). Summed Stress Score:0 , Summed Rest Score:0 Regional Wall Thickening and Motion Post Stress: There is normal left ventricular wall motion and thickening of all myocardial segments. Left Ventricular Ejection Fraction (post stress, in the resting state)= 77 %. Left Ventricular End Diastolic Volume: 65 mL SUMMARY/OPINION:This study is normal with no evidence of significant myocardial ischemia. Left ventricular systolic function is normal. There are no high risk prognostic indicators present.The ECG portion of the study is negative for ischemia. There are no prior studies available for comparison. In aggregate the current study is low risk in regards to predicted annual cardiovascular mortality rate. Performing Organization Address City/State/Zipcode Phone Number OTHER OUTSIDE LAB in this encounter Visit Diagnoses Diagnosis Palpitations SOB (shortness of breath) Shortness of breath Administered Medications Medication Order MAR Action Action Date Dose Rate Site regadenoson (LEXISCAN) injection 0.4 mg Given 04/10/2018 0.4 mg 0.4 mg, Intravenous, ONCE, 1 dose, Fri 11:27 CDT 04/10/18 at 1045, Inject 0.4 mg Regadenoson IV over 10 to 15 seconds, flush with 10 mL 0.9% Sodium Chloride solution IV over 10-20 seconds. in this encounter
--- OUTSIDE RECORDS SUMMARY | 2018-06-23 06:11 | XMS REPORT | Encounter Summary ---
Author Author [facility] Organization [facility] Address Unknown Phone Unavailable Care Team Providers Care Supervisor Fish Hatchery Name Role Phone Judah Lopez RN Unavailable Unavailable Brett Alcantar MD Unavailable Kumar Diggs MD Unavailable Doctor, Miscellaneous Unavailable Unavailable Barbara Pelaez MD Unavailable Adolfo Cardenas MD PCP Fausto Hsu Unavailable Unavailable Nallely Gomez MD Unavailable Silvano Potts MD Unavailable Sarwat Lozano APRN Unavailable Unavailable Aileen Jacobson MD Unavailable Unavailable Leonid Santos MD Unavailable Unavailable Danitza Rios MA,CCC-MATERIAL PLANNER Unavailable Unavailable Gela Cleary RN Unavailable Unavailable Hossein Minaya MD Unavailable Deonna Cunningham RN Unavailable Unavailable Anila Valencia RN Unavailable Unavailable Daniel Bond RN Unavailable Unavailable Yolette Moore MA,CCC-MATERIAL PLANNER Unavailable Unavailable Bryan Romero Unavailable Unavailable Nallely Tracy MA,CCC-MATERIAL PLANNER Unavailable Unavailable Haresh Kathleen MD Unavailable Teetee Taylor RN Unavailable Unavailable Bonnie Goss RN Unavailable Unavailable Maricel Albrecht MD Unavailable Kiarra Patrick RN Unavailable Unavailable Evelio Chris RN 2 Unavailable Todd Avendano MD Unavailable Tatiana Tim PA-C Unavailable Reason for Visit * Reason Comments Results Holter,ECHO and stress test Encounter Details Date Type Department Care Team Description 04/15/2018 Telephone Cardiovascular Medicine Stephanie Feliciano Results ( Holter,ECHO and [address] stress test) [place] [id number] Social History Tobacco Use Types Packs/Day Years [...] encounter Miscellaneous Notes * Telephone Encounter - Stephanie Feliciano - 04/15/2018 2:51 PM CDT Left message on secure voicemail with instructions for pt to call back re: results of Holter,ECHO and Stress Test. ----- Message from Lisa Rodriguez RN sent at 04/14/2018 12:14 PM CDT ----- Please notify patient of normal ECHO, thallium and holter per VIRTUAL CLASSROOM MANAGER. Recommend for patient to follow-up as needed. Can cancel OV on 06/24 after you speak with patient. THanks. in this encounter Plan of Treatment Not on fileas of this encounter Visit Diagnoses Not on filein this encounter
--- OUTSIDE RECORDS SUMMARY | 2018-06-23 06:11 | XMS REPORT | Clinical Summary ---
Author Author [facility] Organization [facility] Address Unknown Phone Unavailable Care Team Providers Care Traffic Signal Mechanic Name Role Phone Judah Lopez RN Unavailable Unavailable Brett Alcantar MD Unavailable Kumar Diggs MD Unavailable Doctor, Miscellaneous Unavailable Unavailable Barbara Pelaez MD Unavailable Adolfo Cardenas MD PCP Fausto Hsu Unavailable Unavailable Nallely Gomez MD Unavailable Silvano Potts MD Unavailable Sarwat Lozano APRN Unavailable Unavailable Aileen Jacobson MD Unavailable Unavailable Leonid Santos MD Unavailable Unavailable Danitza Rios MA,CCC-BAND ATTACHER Unavailable Unavailable Gela Cleary RN Unavailable Unavailable Hossein Minaya MD Unavailable Deonna Cunningham RN Unavailable Unavailable Anila Valencia RN Unavailable Unavailable Daniel Bond RN Unavailable Unavailable Yolette Moore MA,CCC-BAND ATTACHER Unavailable Unavailable Bryan Romero Unavailable Unavailable Nallely Tracy MA,CCC-BAND ATTACHER Unavailable Unavailable Haresh Kathleen MD Unavailable Teetee [...] in the Health Information Management department at [phone] for further assistance in locating additional records.[facility] Allergies No Known Allergies Current Medications [...] 1 tablet by mouth 30 tablet 11 03/10/20 Active (MYRBETRIQ) 50 mg daily. 18 tabletIndications: Incomplete bladder emptying Active Problems Problem Noted Date Palpitations 04/01/2018 Overview: 03/11/2018 - Holter: 24 hour holter monitor associated with sinus rhythm. This is an unremarkable holter monitor Shortness of breath 03/11/2018 Last Assessment & [...] Overview: Added automatically from request for surgery [id number] Gastroesophageal reflux disease 11/18/2017 Overview: Added automatically from request for surgery [id number] Diarrhea 11/18/2017 Overview: Added automatically from request for surgery [id number] Incomplete bladder emptying 05/06/2017 Overview: - Increased [...] Encounters Date Type Specialty Care Team Description 04/15/2018 Telephone Cardiology Stephanie Feliciano Results (Holter,ECHO and stress test) [facility] Stefanie Milton MD Encounter 04/10/2018 Hospital Cardiology Stefanie Milton MD Encounter 04/08/2018 Telephone Cardiology Denita Navarrete Stress (Thall Prep Attempted via Mobile w/ pt, she was unable to take notes. Instructions Re:called to Mobile # . RX meds ok in AM, advised to Hold Metformin & CB if questions) 04/06/2018 Hospital Radiology Haresh Kathleen MD Canceled (Other) Encounter 04/06/2018 Ancillary Anesthesia Pain Haresh Kathleen MD Lumbar back pain Orders 04/06/2018 Telephone Cardiology Uma Curiel Records Request 03/23/2018 Telephone Cardiology Lisa Rodriguez, GERARDO Breathing Problem from Last 3 Months Family History Medical [...] Vital Sign Reading Time Taken Blood Pressure 150/78 04/10/2018 9:21 AM CDT Pulse 88 03/11/2018 1:05 PM CDT Temperature 37.1 C (98.8 F) 01/14/2018 1:38 PM CDT Respiratory Rate 16 01/14/2017 1:03 PM CDT Oxygen Saturation 96% 01/14/2018 2:30 PM CDT Inhaled Oxygen - - Concentration Weight 101.8 kg (224 lb 6.4 oz) 04/10/2018 9:21 AM CDT Height 167.6 cm (5' 6") 04/10/2018 9:21 AM CDT Body Mass Index 36.22 04/10/2018 9:21 AM CDT Plan of Treatment Health Maintenance Due Date Last Done Comments HEPATITIS C SCREENING 1952 PERTUSSIS VACCINE 1963 TETANUS VACCINE 1969 SHINGLES RECOMBINANT 2002 VACCINE (1 of 2) BREAST CANCER SCREENING 07/09/2013 07/09/2012 (Previously completed) PHYSICAL (COMPREHENSIVE) 07/09/2013 07/09/2012 (Previously completed) EXAM OSTEOPOROSIS SCREENING 2017 PNEUMONIA (PCV13/PPSV23) 2017 VACCINES (1 of 2 - PCV13) INFLUENZA VACCINE 03/25/2018 07/17/2013, 12/15/2012 (Declined) COLORECTAL CANCER 09/27/2025 09/27/2015, 09/27/2015 SCREENING Implants Implanted Type Area Veterinary Parasitologist Device Expiration Model / Identifier Date Serial / Lot Cement Bone Smartset Gentamicin Right: Charlene 10/22/2017 [id number] 40gm High Viscosity Knee [employer]: / Implanted: Qty: 2 on 01/25/2016 by [employer] [id number] / Maricel Albrecht MD [id number] Tray Tibial Sigma 2.5 Knee Cocr Right: JandJ:DEPUY:DEP 11/22/2025 [id number] Cemented Modular Knee [employer] / Implanted: Qty: 1 on 01/25/2016 by [id number] / Maricel Albrecht MD [id number] Dome Patellar 38mm Pfc Sigma Small Right: JandJ:DEPUY:DEP 11/22/2020 [id number] / Oval Knee Uhmwpe 3 Peg Knee [employer] [id number] / Implanted: Qty: 1 on 01/25/2016 by [id number] Maricel Albrecht MD Component Femoral 2.5 Knee Right Right: JandJ:DEPUY:DEP 08/24/2025 [id number] Cemented Posterior Knee [employer] / Implanted: Qty: 1 on 01/25/2016 by [id number] / Maricel Albrecht MD [id number] Insert Tibial 2.5 10mm Knee Gvf Right: JandJ:DEPUY:DEP 07/24/2020 [id number] Stabilize Sigma Knee [employer] / Implanted: Qty: 1 on 01/25/2016 by [id number] Maricel Albrecht MD / [id number] Procedures Procedure Name Priority Date/Time Associated Diagnosis Comments MULTI GATED Routine 04/10/2018 Palpitations Results for this 11:29 AM CDT SOB (shortness of breath) procedure are in the results section. 2-D + DOPPLER Routine 04/10/2018 Palpitations Results for this ECHOCARDIOGRAM 9:21 AM CDT procedure are in the results section. from Last 3 Months Results * [place] STRESS TEST (04/10/2018 [...] Velásquez 65 OTHER OUTSIDE LAB Study Number [id number] OTHER OUTSIDE LAB PUL TO ESPERANZA COUNT [...] Division of Nuclear Cardiac Imaging Consultation Report EXAMINATION:[facility] Gated [id number] Chloride myocardial perfusion single-photon emission computed tomography for viability, resting regional wall function, post stress ejection fraction, and perfusion imaging utilizing Regadenoson pharmacological stress. Date of Study:04/10/18 Study #:[id number] Billing ID:[id number] Referring Physician:Adolfo Cardenas MD Requested by:Stefanie Milton [...] Approximately 20 seconds later 3.37 mCi of Ybxxwcdf517Bmkhgyyj was injected intravenously. Throughout the infusion continuous electrocardiographic monitoring and serial electrocardiograms were obtained, as well as intermittent blood pressure recordings.Planar and gated tomographic images were then acquired approximately 5 minutes after discontinuation of the regadenoson infusion. The patient returned in approximately 4 hours and received an additional intravenous injection of 0.82 mCi of Trxugzrp392 Chloride as a reinjected dose to assist [...] Conclusion:Pharmacologic stress ECG is negative for ischemia. Gmrafumwa-vl-Tzvhzpvjgb Count Ratio:0.29(normal=or < 0.52). Scintigraphic (planar/tomographic):Planar images [...] Address City/State/Zipcode Phone Number OTHER OUTSIDE LAB * 2-D + DOPPLER ECHOCARDIOGRAM (04/10/2018 9:21 AM) BSA 2.18 m2 OTHER OUTSIDE LAB Referring Provider Adolfo Cardenas OTHER OUTSIDE LAB Cardiology Ultrasound Nyla Epiq OTHER OUTSIDE LAB Machine IVS 1.03 0.6 - 0.9 cm OTHER OUTSIDE LAB LVIDD 4.26 3.8 - 5.2 cm OTHER OUTSIDE LAB LVIDS 2.63 2.2 - 3.5 cm OTHER OUTSIDE LAB PW 0.95 0.6 - 0.9 cm OTHER OUTSIDE LAB TDI e' 0.11 m/s OTHER OUTSIDE LAB LA volume 47.7 22 - 52 cm3 OTHER OUTSIDE LAB LA size 3.50 2.7 - 3.8 cm OTHER OUTSIDE LAB AV peak velocity 1.24 m/s OTHER OUTSIDE LAB and a peak gradient of 6.00 mmHg OTHER OUTSIDE LAB Sinus 3.40 2.7 - 3.3 cm OTHER OUTSIDE LAB MV Peak A Nam 0.69 m/s OTHER OUTSIDE LAB MV Peak E Nam PW 0.70 m/s OTHER OUTSIDE LAB Right Heart Systolic 2.12 >1.7 cm OTHER OUTSIDE LAB Mmode TAPSE Right Ventricular Mid 3.80 1.9 - 3.5 cm OTHER OUTSIDE LAB Diameter Right Ventricular Basal 4.50 2.5 - 4.1 cm OTHER OUTSIDE LAB Diameter Right Atrial Major 3.83 2.2 - 2.8 cm OTHER OUTSIDE LAB Dimension Right Atrial Area 9.38 <18 cm2 OTHER OUTSIDE LAB LV mass 138.43 66 - 150 g OTHER OUTSIDE LAB RWT 0.45 <=0.42 OTHER OUTSIDE LAB Left Ventricle Mass Index 63.50 44 - 88 g/m2 OTHER OUTSIDE LAB FS 38.26 28 - 44 % OTHER OUTSIDE LAB EF 65.04 % OTHER OUTSIDE LAB Left Atrium Index 21.88 16 - 34 OTHER OUTSIDE LAB E/A ratio 1.01 OTHER OUTSIDE LAB E/E' ratio 6.36 OTHER OUTSIDE LAB TV rest pulmonary artery n/a mmHg OTHER OUTSIDE LAB pressure Right Heart Systolic TDI 0.112 m/s OTHER OUTSIDE LAB S' ECHO EF 65 % OTHER OUTSIDE LAB Narrative Performed At OTHER OUTSIDE LAB 1. No regional wall motion abnormalities are seen. Overall LV systolic function appears normal and dynamic.The estimated left ventricular ejection fraction appears to be in the range of 65%. 2. Normal left ventricular diastolic function. 3. Right ventricular contractility appears normal. 4. Normal chamber dimensions. 5. Cardiac valve structures are not visualized well. There is no evidence of significant valvular regurgitation or stenosis by doppler exam. 6. No pericardial effusion is seen. Performing Organization Address City/State/Zipcode Phone Number OTHER OUTSIDE LAB from Last 3 Months
--- OUTSIDE RECORDS SUMMARY | 2018-06-23 06:11 | XMS REPORT | Encounter Summary ---
Author Author [facility] Organization [facility] Address Unknown Phone Unavailable Care Team Providers Care Bottle Blowing Machine Tender Name Role Phone Judah Lopez RN Unavailable Unavailable Brett Alcantar MD Unavailable Kumar Diggs MD Unavailable Doctor, Miscellaneous Unavailable Unavailable Barbara Pelaez MD Unavailable Adolfo Cardenas MD PCP Fausto Hsu Unavailable Unavailable Nallely Gomez MD Unavailable Silvano Potts MD Unavailable Sarwat Lozano APRN Unavailable Unavailable Aileen Jacobson MD Unavailable Unavailable Leonid Santos MD Unavailable Unavailable Danitza Rios MA,CCC-REAL ESTATE LISTING CONSULTANT Unavailable Unavailable Gela Cleary RN Unavailable Unavailable Hossein Minaya MD Unavailable Deonna Cunningham RN Unavailable Unavailable Anila Valencia RN Unavailable Unavailable Daniel Bond RN Unavailable Unavailable Yolette Moore MA,CCC-REAL ESTATE LISTING CONSULTANT Unavailable Unavailable Bryan Romero Unavailable Unavailable Nallely Tracy MA,CCC-REAL ESTATE LISTING CONSULTANT Unavailable Unavailable Haresh Kathleen MD Unavailable Teetee Taylor RN Unavailable Unavailable Bonnie Goss RN Unavailable Unavailable Maricel Albrecht MD Unavailable Kiarra Patrick RN Unavailable Unavailable Evelio Chris RN 2 Unavailable Todd Avendano MD Unavailable Tatiana Tim PA-C Unavailable Reason for Visit * Reason Comments Stress Thall Prep Attempted via Mobile w/ pt, she was unable to take notes. Instructions Re:called to Mobile # . RX meds ok in AM, advised to Hold Metformin & CB if questions Encounter Details Date Type Department Care Team Description 04/08/2018 Telephone Cardiovascular Medicine Rosalba, Denita Stress (Thall Prep [facility] [id number] Attempted via Mobile w/ [address] pt, [place] [address] take notes. Instructions [phone] Re:called to Mobile # . RX meds ok in AM, advised to Hold Metformin & CB if questions) Social History Tobacco Use Types Packs/Day Years [...]
--- OUTSIDE RECORDS SUMMARY | 2018-06-23 06:11 | XMS REPORT | Encounter Summary ---
Author Author [facility] Organization [facility] Address Unknown Phone Unavailable Care Team Providers Care Project Product Manager Name Role Phone Judah Lopez RN Unavailable Unavailable Brett Alcantar MD Unavailable Kumar Diggs MD Unavailable Doctor, Miscellaneous Unavailable Unavailable Barbara Pelaez MD Unavailable Adolfo Cardenas MD PCP Fausto Hsu Unavailable Unavailable Nallely Gomez MD Unavailable Silvano Potts MD Unavailable Sarwat Lozano APRN Unavailable Unavailable Aileen Jacobson MD Unavailable Unavailable Leonid Santos MD Unavailable Unavailable Danitza Rios MA,CCC-PREMISES TECHNICIAN Unavailable Unavailable Gela Cleary RN Unavailable Unavailable Hossein Minaya MD Unavailable Deonna Cnuningham RN Unavailable Unavailable Anila Valencia RN Unavailable Unavailable Daniel Bond RN Unavailable Unavailable Yolette Moore MA,CCC-PREMISES TECHNICIAN Unavailable Unavailable Bryan Romero Unavailable Unavailable Nallely Tracy MA,CCC-PREMISES TECHNICIAN Unavailable Unavailable Haresh Kathleen MD Unavailable Teetee Taylor RN Unavailable Unavailable Bonnie Goss RN Unavailable Unavailable Maricel Albrecht MD Unavailable Kiarra Patrick RN Unavailable Unavailable Evelio Chris RN 2 Unavailable Todd Avendano MD Unavailable Tatiana Tim PA-C Unavailable Encounter Details Date Type Department Care Team Description 04/06/2018 Hospital [facility] Haresh Kathleen MD Canceled (Other) Encounter [facility] Radiology [address] Ruiz Velasco MD Comp [address] [place] [address] [phone] [place], [place] [id number] [phone] Social History Tobacco Use Types Packs/Day Years [...] fileas of this encounter Visit Diagnoses Diagnosis Lumbar back pain Lumbago
--- OUTSIDE RECORDS SUMMARY | 2018-06-23 06:11 | XMS REPORT | Encounter Summary ---
Author Author [facility] Organization [facility] Address Unknown Phone Unavailable Care Team Providers Care Wireless Construction Manager Name Role Phone Judah Lopez RN Unavailable Unavailable Brett Alcantar MD Unavailable Kumar Diggs MD Unavailable Doctor, Miscellaneous Unavailable Unavailable Barbara Pelaez MD Unavailable Adolfo Cardenas MD PCP Fausto Hsu Unavailable Unavailable Nallely Gomez MD Unavailable Silvano Potts MD Unavailable Sarwat Lozano APRN Unavailable Unavailable Aileen Jacobson MD Unavailable Unavailable Leonid Santos MD Unavailable Unavailable Danitza Rios MA,CCC-JOB TRACER Unavailable Unavailable Gela Cleary RN Unavailable Unavailable Hossein Minaya MD Unavailable Deonna Cunningham RN Unavailable Unavailable Anila Valencia RN Unavailable Unavailable Daniel Bond RN Unavailable Unavailable Yolette Moore MA,CCC-JOB TRACER Unavailable Unavailable Bryan Romero Unavailable Unavailable Nallely Tracy MA,CCC-JOB TRACER Unavailable Unavailable Haresh Kathleen MD Unavailable Teetee Taylor RN Unavailable Unavailable Bonnie Goss RN Unavailable Unavailable Maricel Albrecht MD Unavailable Kiarra Patrick RN Unavailable Unavailable Evelio Chris RN 2 Unavailable Todd Avendano MD Unavailable Tatiana Tim PA-C Unavailable Reason for Referral * Test Status Reason Specialty Diagnoses / Referred By Referred To Procedures Contact Contact No Auth Needed Cardiology Diagnoses Milton, Mcduffie Cvm Bhg Echopv Palpitations MD Christiano [facility] [id number] 2-D + [address] [place], [place] [address] [place] [facility] [address] Phone: R-T 2D W/WOM-MODE COMPL [phone] SPEC&COLR D * Test Status Reason Specialty Diagnoses / Referred By Referred To Procedures Contact Contact No Auth Needed Cardiology Diagnoses Milton, Stefanie Cvm Bhg Echopv Palpitations MD Christiano [facility] [id number] 2-D + [address] [place], [place] [address] [place] [facility] [address] Phone: R-T 2D W/WOM-MODE COMPL [phone] SPEC&COLR D Reason for Visit * Test Status Reason Specialty Diagnoses / Referred By Referred To Procedures Contact Contact No Auth Needed Cardiology Diagnoses Milton, Stefanie Cvm Bhg Echopv Palpitations MD Christiano [facility] [id number] 2-D + [address] [place] [address] [place] [facility] [facility] [address] Phone: R-T 2D W/WOM-MODE COMPL [phone] SPEC&COLR D Encounter Details Date Type Department Care Team Description 04/10/2018 [facility] Cardiovascular [facility] [address] [place] [address] [place] [address] [phone] Social History Tobacco Use Types Packs/Day Years Used Date Former Smoker Cigarettes 0.25 1 Quit: 05/17/1972 Smokeless Tobacco: Never Used Alcohol Use Drinks/Week oz/Week Comments Yes 0 Standard 0.0 ~1x/mo drinks or equivalent Sex Assigned at Date Recorded Not on file as of this encounter Last Filed Vital Signs Vital Sign Reading Time Taken Blood Pressure 150/78 04/10/2018 9:21 AM CDT Pulse - - Temperature - - Respiratory Rate - - Oxygen Saturation - - Inhaled Oxygen - - Concentration Weight 101.8 kg (224 lb 6.4 oz) 04/10/2018 9:21 AM CDT Height 167.6 cm (5' 6") 04/10/2018 9:21 AM CDT Body Mass Index 36.22 04/10/2018 9:21 AM CDT in this encounter Functional Status Functional [...] Procedure Name Priority Date/Time Associated Diagnosis Comments 2-D + DOPPLER Routine 04/10/2018 Palpitations Results for this ECHOCARDIOGRAM 9:21 AM CDT procedure are in the results section. in this encounter Results * 2-D + DOPPLER ECHOCARDIOGRAM (04/10/2018 9:21 [...]
--- OUTSIDE RECORDS SUMMARY | 2018-06-23 06:12 | XMS REPORT | Encounter Summary ---
Author Author [facility] Organization [facility] Address Unknown Phone Unavailable Care Team Providers Care Supply Cataloguer Name Role Phone Judah Lopez RN Unavailable Unavailable Brett Alcantar MD Unavailable Kumar Diggs MD Unavailable Doctor, Miscellaneous Unavailable Unavailable Barbara Pelaez MD Unavailable Adolfo Cardenas MD PCP Fausto Hsu Unavailable Unavailable Nallely Gomez MD Unavailable Silvano Potts MD Unavailable Sarwat Lozano APRN Unavailable Unavailable Aileen Jacobson MD Unavailable Unavailable Leonid Santos MD Unavailable Unavailable Danitza Rios MA,CCC-BOAT WASHER Unavailable Unavailable Gela Cleary RN Unavailable Unavailable Hossein Minaya MD Unavailable Deonna Cunningham RN Unavailable Unavailable Anila Valencia RN Unavailable Unavailable Daniel Bond RN Unavailable Unavailable Yolette Moore MA,CCC-BOAT WASHER Unavailable Unavailable Bryan Romero Unavailable Unavailable Nallely Tracy MA,CCC-BOAT WASHER Unavailable Unavailable Haresh Kathleen MD Unavailable Teetee Taylor RN Unavailable Unavailable Bonnie Goss RN Unavailable Unavailable Maricel Albrecht MD Unavailable Kiarra Patrick RN Unavailable Unavailable Evelio Chris RN 2 Unavailable Todd Avendano MD Unavailable Tatiana Tim PA-C Unavailable Reason for Visit * Reason Comments Breathing Problem Encounter Details Date Type Department Care Team Description 03/23/2018 Telephone Cardiovascular Medicine Lisa Rodriguez RN Breathing Problem [facility] [address] [place] [address] [place] [address] Social History Tobacco Use Types Packs/Day Years [...] encounter Miscellaneous Notes * Telephone Encounter - BradenStephanie - 03/25/2018 3:17 PM CDT Left message on secure voicemail with instructions for pt to call back re: results of EVM. * Telephone Encounter - Lisa Rodriguez RN - 03/25/2018 11:09 AM CDT Per LAY UPS ASSEMBLER: Let her know that her monitor was completely normal. Will route for patient to be notified of normal EVM. * Telephone Encounter - Lisa Rodriguez RN - 03/23/2018 5:03 PM CDT Followed up with patient. CT scan - negative. ED physician recommended follow up with Pulmonary for evaluation. Recommended she follow-up with Pulmonary scheduling for early appt. Will route to [employer] ASSEMBLER as FYI. * Telephone Encounter - Lisa Rodriguez RN - 03/23/2018 3:18 PM CDT Followed up with Pulmonary scheduling - there is a cancellation in April at [facility] at this time. Unable to reach patient. LM requesting CB 1.) Call [phone] to request if any cancellations to be seen sooner. ----- Message from Denice Ross LPN sent at 03/23/2018 8:54 AM CDT ----- Regarding: [employer] ASSEMBLER- pulmonary VM on triage line from patient. Said that we got her appointment with Pulmonary, but it is not till May. She is having problems and had to go to the ED over the weekend. Said that they gave her breathing thing but not helping much. Call cell # [phone]. in this encounter Plan of Treatment Not on fileas of this encounter Visit Diagnoses Not on filein this encounter
--- OUTSIDE RECORDS SUMMARY | 2018-06-23 06:12 | XMS REPORT | Encounter Summary ---
Author Author [facility] Organization [facility] Address Unknown Phone Unavailable Care Team Providers Care Head Soft Sugar Operator Name Role Phone Judah Lopez RN Unavailable Unavailable Brett Alcantar MD Unavailable Kumar Diggs MD Unavailable Doctor, Miscellaneous Unavailable Unavailable Barbara Pelaez MD Unavailable Adolfo Cardenas MD PCP Fausto Hsu Unavailable Unavailable Nallely Gomez MD Unavailable Silvano Potts MD Unavailable Sarwat Lozano APRN Unavailable Unavailable Aileen Jacobson MD Unavailable Unavailable Leonid Santos MD Unavailable Unavailable Danitza Rios MA,CCC-RESPIRATORY THERAPY DIRECTOR Unavailable Unavailable Gela Cleary RN Unavailable Unavailable Hossein Minaya MD Unavailable Deonna Cunningham RN Unavailable Unavailable Anila Valencia RN Unavailable Unavailable Daniel Bond RN Unavailable Unavailable Yolette Moore MA,CCC-RESPIRATORY THERAPY DIRECTOR Unavailable Unavailable Bryan Romero Unavailable Unavailable Nallely Tracy MA,CCC-RESPIRATORY THERAPY DIRECTOR Unavailable Unavailable Haresh Kathleen MD Unavailable Teetee Taylor RN Unavailable Unavailable Bonnie Goss RN Unavailable Unavailable Maricel Albrecht MD Unavailable Kiarra Patrick RN Unavailable Unavailable Evelio Chris RN 2 Unavailable Todd Avendano MD Unavailable Tatiana Tim PA-C Unavailable Encounter Details Date Type Department Care Team Description 04/06/2018 [facility] Haresh Kathleen MD Lumbar back pain [facility] [address] [facility] [address] [place] [address] [place] [address] [phone] Social History Tobacco Use Types Packs/Day Years [...]
--- OUTSIDE RECORDS SUMMARY | 2018-06-23 06:12 | XMS REPORT | Encounter Summary ---
Author Author [facility] Organization [facility] Address Unknown Phone Unavailable Care Team Providers Care Doughnut Maker Name Role Phone Judah Lopez RN Unavailable Unavailable Brett Alcantar MD Unavailable Kumar Diggs MD Unavailable Doctor, Miscellaneous Unavailable Unavailable Barbara Pelaez MD Unavailable Adolfo Cardenas MD PCP Fausto Hsu Unavailable Unavailable Nallely Gomez MD Unavailable Silvano Potts MD Unavailable Sarwat Lozano APRN Unavailable Unavailable Aileen Jacobson MD Unavailable Unavailable Leonid Santos MD Unavailable Unavailable Danitza Rios MA,CCC-ADMINISTRATION PHYSICIAN Unavailable Unavailable Gela Cleary RN Unavailable Unavailable Hossein Minaya MD Unavailable Deonna Cunningham RN Unavailable Unavailable Anila Valencia RN Unavailable Unavailable Daniel Bond RN Unavailable Unavailable Yolette Moore MA,CCC-ADMINISTRATION PHYSICIAN Unavailable Unavailable Bryan Romero Unavailable Unavailable Nallely Tracy MA,CCC-ADMINISTRATION PHYSICIAN Unavailable Unavailable Haresh Kathleen MD Unavailable Teetee Taylor RN Unavailable Unavailable Bonnie Goss RN Unavailable Unavailable Maricel Albrecht MD Unavailable Kiarra Patrick RN Unavailable Unavailable Evelio Chris RN 2 Unavailable Todd Avendano MD Unavailable Tatiana Tim PA-C Unavailable Reason for Visit * Reason Comments Records Request Encounter Details Date Type Department Care Team Description 04/06/2018 Telephone [facility] Uma Curiel Records Request [address] [place] [address] Social History Tobacco Use Types Packs/Day Years [...] encounter Miscellaneous Notes * Telephone Encounter - Uma Curiel - 04/06/2018 6:16 AM CDT 04/06/18 A request for records has been sent per staff message, [facility] ----- Message from Kilo Coello sent at 2018 5:09 PM CDT ----- Regarding: Request Medical Records (Urgent) Please request medical records from [facility], phone . Thank you! in this encounter Plan of Treatment Not on fileas of this encounter Visit Diagnoses Not on filein this encounter
--- OUTSIDE RECORDS SUMMARY | 2018-06-23 06:13 | XMS REPORT | Continuity of Care Document ---
Author Author [facility] Organization [facility] Address Unknown Phone Unavailable Allergies Active Description Code Type Severity Reaction Onset Reported/Identified Relationship to Patient Clinical Status Yes No Known Drug Allergies [id number] Drug Allergy Unknown N/A 02/11/2014 Medications There is no data. 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 07/24/1699 DEVANTE HALL, JONEL Mcguire Ot Z96.651 PRESENCE OF RIGHT ARTIFICIAL KNEE JOINT 07/29/2012 Ot 250.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, TYPE II OR UNSPEC TY 07/29/2012 Ot 272.4 HYPERLIPIDEMIA NEC/NOS 07/29/2012 Ot 401.9 HYPERTENSION NOS 07/29/2012 Ot 564.1 IRRITABLE BOWEL SYNDROME 10/30/2012 Ot 250.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, TYPE II OR UNSPEC TY 10/30/2012 Ot 272.4 HYPERLIPIDEMIA NEC/NOS 10/30/2012 Ot 338.4 CHRONIC PAIN SYNDROME 10/30/2012 Ot 401.9 HYPERTENSION NOS 10/30/2012 Ot 530.81 ESOPHAGEAL REFLUX 10/30/2012 Ot 560.1 PARALYTIC ILEUS 10/30/2012 Ot 560.32 FECAL IMPACTION 10/30/2012 Ot 564.00 UNSPEC CONSTIPATION 10/30/2012 Ot 564.1 IRRITABLE BOWEL SYNDROME 10/30/2012 Ot 618.04 RECTOCELE 10/30/2012 Ot 618.6 VAGINAL ENTEROCELE 10/30/2012 Ot 782.3 EDEMA 10/30/2012 Ot 784.1 THROAT PAIN 10/30/2012 Ot 787.01 NAUSEA WITH VOMITING 10/30/2012 Ot 788.30 UNSPECIFIED URINARY INCONTINENCE 11/17/2012 Ot 250.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, TYPE II OR UNSPEC TY 11/17/2012 Ot 272.0 PURE HYPERCHOLESTEROLEM 11/17/2012 Ot 333.94 RESTLESS LEGS SYNDROME 11/17/2012 Ot 401.9 HYPERTENSION NOS 11/17/2012 Ot 564.09 OTHER CONSTIPATION 11/17/2012 Ot 564.1 IRRITABLE BOWEL SYNDROME 11/17/2012 Ot 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 02/19/2013 KATHLEEN CABRERA MD R Ot 250.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, TYPE II OR UNSPEC TY 02/19/2013 KATHLEEN CABRERA MD R Ot 272.0 PURE HYPERCHOLESTEROLEM 02/19/2013 KATHLEEN CABRERA MD R Ot 333.94 RESTLESS LEGS SYNDROME 02/19/2013 KATHLEEN CABRERA MD R Ot 401.9 HYPERTENSION NOS 02/19/2013 KATHLEEN CABRERA MD R Ot 564.00 UNSPEC CONSTIPATION 02/19/2013 KATHLEEN CABRERA MD R Ot 564.1 IRRITABLE BOWEL SYNDROME 02/19/2013 KATHLEEN CABRERA MD R Ot 728.84 DIASTASIS OF MUSCLE 02/19/2013 KATHLEEN CABRERA MD R Ot 789.06 ABDOMINAL PAIN, EPIGASTRIC 02/20/2013 NASREEN BLOUNT DO Ot 847.0 SPRAIN OF NECK 02/20/2013 NASREEN BLOUNT DO Ot 920 CONTUSION FACE/SCALP/NCK 02/20/2013 NASREEN BLOUNT DO Ot 959.09 INJURY OF FACE AND NECK 02/20/2013 NASREEN BLOUNT DO Ot E000.8 OTHER EXTERNAL CAUSE STATUS 02/20/2013 NASREEN BLOUNT DO Ot E849.0 ACCIDENT IN HOME 02/20/2013 NASREEN BLOUNT DO Ot E888.9 FALL NOS 07/15/2013 NASREEN BLOUNT DO Ot 304.90 DRUG DEPEND NOS-UNSPEC 07/15/2013 NASREEN BLOUNT DO Ot 564.00 UNSPEC CONSTIPATION 07/15/2013 NASREEN BLOUNT DO Ot 787.02 NAUSEA ALONE 07/15/2013 NASREEN BLOUNT DO Ot 789.04 ABDOMINAL PAIN, LEFT LOWER QUADRANT 07/15/2013 NASREEN BLOUNT DO Ot V15.81 HX OF PAST NONCOMPLIANCE 07/21/2013 KATHLEEN CABRERA MD R Ot 300.00 ANXIETY STATE NOS 07/21/2013 KATHLEEN CABRERA MD R Ot 311 DEPRESSIVE DISORDER NEC 07/21/2013 KATHLEEN CABRERA MD R Ot 338.29 OTHER CHRONIC PAIN 07/21/2013 KATHLEEN CABRERA MD R Ot 401.9 HYPERTENSION NOS 07/21/2013 KATHLEEN CABRERA MD R Ot 564.09 OTHER CONSTIPATION 07/21/2013 KATHLEEN CABRERA MD R Ot 716.90 ARTHROPATHY NOS-UNSPEC 07/21/2013 KATHLEEN CABRERA MD R Ot 719.46 JOINT PAIN-L/LEG 07/21/2013 KATHLEEN CABRERA MD R Ot 724.5 BACKACHE NOS 07/21/2013 KATHLEEN CABRERA MD R Ot 784.0 HEADACHE 07/21/2013 KATHLEEN CABRERA MD R Ot 787.02 NAUSEA ALONE 07/21/2013 KATHLEEN CABRERA MD R Ot 787.3 FLATUL/ERUCTAT/GAS PAIN 07/21/2013 KATHLEEN CABRERA MD R Ot 789.01 ABDOMINAL PAIN, RIGHT UPPER QUADRANT 07/21/2013 KATHLEEN CABRERA MD R Ot E947.9 ADV EFF MEDICINAL NOS 07/21/2013 KATHLEEN CABRERA MD R Ot V15.88 HISTORY OF FALL 07/21/2013 KATHLEEN CABRERA MD R Ot V58.69 OTH MED,LT,CURRENT USE 08/02/2013 KATHLEEN CABRERA MD R Ot 304.90 DRUG DEPEND NOS-UNSPEC 08/02/2013 KATHLEEN CABRERA MD R Ot 338.29 OTHER CHRONIC PAIN 08/02/2013 KATHLEEN CABRERA MD R Ot 401.9 HYPERTENSION NOS 08/02/2013 KATHLEEN CABRERA MD R Ot 564.09 OTHER CONSTIPATION 08/02/2013 KATHLEEN CABRERA MD R Ot 716.90 ARTHROPATHY NOS-UNSPEC 08/02/2013 KATHLEEN CABRERA MD R Ot 780.4 DIZZINESS AND GIDDINESS 08/02/2013 KATHLEEN CABRERA MD R Ot 787.91 DIARRHEA 08/02/2013 KATHLEEN CABRERA MD R Ot 789.00 ABDOMINAL PAIN, UNSPECIFIED SITE 09/05/2013 BIJAN MIGUEL DO Ot 338.29 09/05/2013 GELLENDER DO, BIJAN Sosa Ot 564.00 09/05/2013 GELLENDER DO, BIJAN Sosa Ot 780.52 09/05/2013 GELLENDER DO, BIJAN Sosa Ot 789.00 09/05/2013 GELLENDER DO, BIJAN Sosa Ot 789.1 10/05/2013 DEBORAH HALL, KATHLEEN R Ot 304.90 10/05/2013 DEBORAH HALL, KATHLEEN R Ot 338.29 10/05/2013 DEBORAH HALL, KATHLEEN R Ot 401.9 10/05/2013 DEBORAH HALL, KATHLEEN R Ot 530.81 10/05/2013 DEBORAH HALL, KATHLEEN R Ot 560.1 10/05/2013 DEBORAH HALL, KATHLEEN R Ot 564.09 10/05/2013 DEBORAH HALL, KATHLEEN R Ot 716.90 10/05/2013 DEBORAH HALL, KATHLEEN R Ot 724.5 10/05/2013 DEBORAH HALL, KATHLEEN R Ot 789.02 10/05/2013 DEBORAH HALL, KATHLEEN R Ot E937.9 10/15/2013 DEBORAH HALL, KATHLEEN R Ot 250.00 10/15/2013 DEBORAH HALL, KATHLEEN R Ot 304.90 10/15/2013 DEBORAH HALL, KATHLEEN R Ot 333.94 10/15/2013 DEBORAH HALL, KATHLEEN R Ot 401.9 10/15/2013 DEBORAH HALL, KATHLEEN R Ot 530.81 10/15/2013 DEBORAH HALL, KATHLEEN R Ot 560.1 10/15/2013 DEBORAH HALL, KATHLEEN R Ot 564.09 10/15/2013 DEBORAH HALL, KATHLEEN R Ot 564.1 10/15/2013 DEBORAH HALL, KATHLEEN R Ot 596.51 10/15/2013 DEBORAH HALL, KATHLEEN R Ot 715.90 10/15/2013 DEBORAH HALL, KATHLEEN R Ot 780.52 10/15/2013 DEBORAH HALL, KATHLEEN R Ot 789.02 10/15/2013 DEBORAH HALL, KATHLEEN R Ot 789.07 10/15/2013 DEBORAH HALL, KATHLEEN R Ot V58.69 10/18/2013 DEBORAH HALL, KATHLEEN R Ot 368.2 10/18/2013 DEBORAH HALL, KATHLEEN R Ot 564.00 10/18/2013 DEBORAH HALL, KATHLEEN R Ot 787.03 10/18/2013 DEBORAH HALL, KATHLEEN R Ot 787.91 10/18/2013 DEBORAH HALL, KATHLEEN R Ot 789.02 10/21/2013 DEBORAH HALL, KATHLEEN R Ot 338.29 10/21/2013 DEBORAH HALL, KATHLEEN R Ot 401.9 10/21/2013 DEBORAH HALL, KATHLEEN R Ot 564.09 10/21/2013 DEBORAH HALL, KATHLEEN R Ot 716.90 10/21/2013 DEBORAH HALL, KATHLEEN R Ot 724.5 10/21/2013 DEBORAH HALL, KATHLEEN R Ot 789.00 02/13/2014 DEBORAH HALL, KATHLEEN R Ot 112.0 02/13/2014 DEBORAH HALL, KATHLEEN R Ot 486 12/06/2014 GAUTAM HALL, EDWARD B Ot 724.2 01/13/2015 DEBORAH HALL, KATHLEEN R Ot 784.42 05/15/2015 DEBORAH HALL, KATHLEEN R Ot 250.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, TYPE II OR UNSPEC TY 05/15/2015 DEBORAH HALL, KATHLEEN R Ot 272.0 PURE HYPERCHOLESTEROLEM 05/15/2015 DEBORAH HALL, KATHLEEN R Ot 333.94 RESTLESS LEGS SYNDROME 05/15/2015 DEBORAH HALL, KATHLEEN R Ot 401.9 HYPERTENSION NOS 05/15/2015 DEBORAH HALL, KATHLEEN R Ot 789.02 ABDOMINAL PAIN, LEFT UPPER QUADRANT 05/15/2015 DEBORAH HALL, KATHLEEN R Ot V04.81 ND FOR PROPHYLACTIC VACCIN AND INOCULATI 05/15/2015 DEBORAH HALL, KATHLEEN R Ot 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 05/15/2015 DEBORAH HALL, KATHLEEN R Ot 250.00 05/15/2015 DEBORAH HALL, KATHLEEN R Ot 272.0 05/15/2015 DEBORAH HALL, KATHLEEN R Ot 333.94 05/15/2015 DEBORAH HALL, KATHLEEN R Ot 401.9 05/15/2015 DEBORAH HALL, KATHLEEN R Ot 789.02 05/15/2015 DEBORAH HALL, KATHLEEN R Ot V13.63 12/14/2015 KATHLEEN CABRERA MD R Ot D64.9 ANEMIA, UNSPECIFIED 12/14/2015 KATHLEEN CABRERA MD R Ot E03.9 HYPOTHYROIDISM, UNSPECIFIED 12/14/2015 KATHLEEN CABRERA MD R Ot R73.02 IMPAIRED GLUCOSE TOLERANCE (ORAL) 12/19/2015 KATHLEEN CABRERA MD R Ot D64.9 ANEMIA, UNSPECIFIED 12/19/2015 KATHLEEN CABRERA MD R Ot E03.9 HYPOTHYROIDISM, UNSPECIFIED 12/19/2015 KATHLEEN CABRERA MD R Ot R73.02 IMPAIRED GLUCOSE TOLERANCE (ORAL) 12/27/2015 KATHLEEN CABRERA MD R Ot D64.9 ANEMIA, UNSPECIFIED 12/27/2015 KATHLEEN CABRERA MD R Ot E03.9 HYPOTHYROIDISM, UNSPECIFIED 12/27/2015 KATHLEEN CABRERA MD R Ot R73.02 IMPAIRED GLUCOSE TOLERANCE (ORAL) 2016 KATHLEEN CABRERA MD R Ot G89.18 OTHER ACUTE POSTPROCEDURAL PAIN 2016 RUFINA CABRERA MDYD R Ot K59.00 CONSTIPATION, UNSPECIFIED 2016 KATHLEEN CABRERA MD R Ot R11.2 NAUSEA WITH VOMITING, UNSPECIFIED 2016 DEBORAH HALL KATHLEEN R Ot Z96.651 PRESENCE OF RIGHT ARTIFICIAL KNEE JOINT 2016 DEBORAH HALL KATHLEEN R Ot G89.18 OTHER ACUTE POSTPROCEDURAL PAIN 2016 RUFINA CABRERA MDYD R Ot K59.00 CONSTIPATION, UNSPECIFIED 2016 KATHLEEN CABRERA MD R Ot R11.2 NAUSEA WITH VOMITING, UNSPECIFIED 2016 KATHLEEN CABRERA MD R Ot Z96.651 PRESENCE OF RIGHT ARTIFICIAL KNEE JOINT 05/10/2016 KATHLEEN CABRERA MD R Ot 784.42 DYSPHONIA 05/10/2016 KATHLEEN CABRERA MD R Ot D64.9 ANEMIA, UNSPECIFIED 05/10/2016 KATHLEEN CABRERA MD R Ot E03.9 HYPOTHYROIDISM, UNSPECIFIED 05/10/2016 KATHLEEN CABRERA MD R Ot R73.02 IMPAIRED GLUCOSE TOLERANCE (ORAL) 05/10/2016 DEBORAH HALL, KATHLEEN R Ot M89.8X6 OTHER SPECIFIED DISORDERS OF BONE, LOWER 05/14/2016 DEBORAH HALL, KATHLEEN Koroma Ot M89.8X6 OTHER SPECIFIED DISORDERS OF BONE, LOWER 05/24/2016 DEVANTE HALL, JONEL Mcguire Ot 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 05/24/2016 JONEL LOW MD Ot Z96.651 PRESENCE OF RIGHT ARTIFICIAL KNEE JOINT 05/27/2016 JOENL LOW MD Ot 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 05/27/2016 JONEL LOW MD Ot Z96.651 PRESENCE OF RIGHT ARTIFICIAL KNEE JOINT 05/27/2016 JONEL LOW MD Ot 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 05/27/2016 JONEL LOW MD Ot Z96.651 PRESENCE OF RIGHT ARTIFICIAL KNEE JOINT 07/04/2016 JONEL LOW MD Ot 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 07/04/2016 JONEL LOW MD Ot Z96.651 PRESENCE OF RIGHT ARTIFICIAL KNEE JOINT 08/07/2016 PEPPER MARTINEZ NEGOTIATOR SALES Ot S99.921A UNSPECIFIED INJURY OF RIGHT FOOT, INITIA 08/07/2016 VAN REEDPEPPER Olvera NEGOTIATOR SALES Ot X58.XXXA EXPOSURE TO OTHER SPECIFIED FACTORS, INI 08/07/2016 VAN REEDPEPPER [employer]vera NEGOTIATOR SALES Ot Y99.8 OTHER EXTERNAL CAUSE STATUS 08/14/2016 VAN REEDPEPPER Olvera NEGOTIATOR SALES Ot S99.921A UNSPECIFIED INJURY OF RIGHT FOOT, INITIA 08/14/2016 PEPPER MARTINEZP Ot X58.XXXA EXPOSURE TO OTHER SPECIFIED FACTORS, INI 08/14/2016 JULIÁN REEDPEPPER OlveraP Ot Y99.8 OTHER EXTERNAL CAUSE STATUS 08/25/2016 JONEL LOW MD Ot 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 08/25/2016 JONEL LOW MD Ot Z96.651 PRESENCE OF RIGHT ARTIFICIAL KNEE JOINT 08/26/2016 JONEL LOW MD Ot 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 08/26/2016 JONEL LOW MD Ot Z96.651 PRESENCE OF RIGHT ARTIFICIAL KNEE JOINT 08/31/2016 JONEL LOW MD Ot 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 08/31/2016 JONEL LOW MD Ot Z96.651 PRESENCE OF RIGHT ARTIFICIAL KNEE JOINT 12/10/2016 KATHLEEN CABRERA MD R Ot 784.42 DYSPHONIA 12/10/2016 KATHLEEN CABRERA MD R Ot D64.9 ANEMIA, UNSPECIFIED 12/10/2016 KATHLEEN CABRERA MD R Ot E03.9 HYPOTHYROIDISM, UNSPECIFIED 12/10/2016 KATHLEEN CABRERA MD R Ot R73.02 IMPAIRED GLUCOSE TOLERANCE (ORAL) 12/10/2016 KATHLEEN CABRERA MD R Ot M89.8X6 OTHER SPECIFIED DISORDERS OF BONE, LOWER 12/10/2016 PEPPER MARTINEZ Ot S99.921A UNSPECIFIED INJURY OF RIGHT FOOT, INITIA 12/10/2016 PEPPER MARTINEZ Ot X58.XXXA EXPOSURE TO OTHER SPECIFIED FACTORS, INI 12/10/2016 PEPPER MARTINEZ Ot Y99.8 OTHER EXTERNAL CAUSE STATUS 12/19/2016 KATHLEEN CABRERA MD Ot 784.42 DYSPHONIA 12/19/2016 KATHLEEN CABRERA MD Ot D64.9 ANEMIA, UNSPECIFIED 12/19/2016 KATHLEEN CABRERA MD Ot E03.9 HYPOTHYROIDISM, UNSPECIFIED 12/19/2016 KATHLEEN CABRERA MD R Ot R73.02 IMPAIRED GLUCOSE TOLERANCE (ORAL) 12/19/2016 KATHLEEN CABRERA MD R Ot M89.8X6 OTHER SPECIFIED DISORDERS OF BONE, LOWER 12/19/2016 PEPPER MARTINEZ Ot S99.921A UNSPECIFIED INJURY OF RIGHT FOOT, INITIA 12/19/2016 PEPPER MARTINEZ Ot X58.XXXA EXPOSURE TO OTHER SPECIFIED FACTORS, INI 12/19/2016 PEPPER MARTINEZ Ot Y99.8 OTHER EXTERNAL CAUSE STATUS 01/14/2017 PER HALL, FLAVIA Salter Ot 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 01/22/2017 KATHLEEN CABRERA MD Ot G89.29 OTHER CHRONIC PAIN 01/22/2017 KATHLEEN CABRERA MD Ot M25.561 PAIN IN RIGHT KNEE 02/12/2017 JONEL LOW MD Ot E11.9 TYPE 2 DIABETES MELLITUS WITHOUT COMPLIC 02/12/2017 JONEL LOW MD Ot M25.561 PAIN IN RIGHT KNEE 02/12/2017 JONEL LOW MD Ot Z96.651 PRESENCE OF RIGHT ARTIFICIAL KNEE JOINT 02/12/2017 FLAVIA ALBARADO MD Ot 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 04/01/2017 JONEL LOW MD Ot E11.9 TYPE 2 DIABETES MELLITUS WITHOUT COMPLIC 04/01/2017 JONEL LOW MD Ot M25.561 PAIN IN RIGHT KNEE 04/01/2017 JONEL LOW MD Ot Z96.651 PRESENCE OF RIGHT ARTIFICIAL KNEE JOINT 2017 CONNIE OLGUIN APRN Ot N30.01 ACUTE CYSTITIS WITH HEMATURIA 04/04/2017 KATHLEEN CABRERA MD Ot 784.42 DYSPHONIA 04/04/2017 KATHLEEN CABRERA MD Ot D64.9 ANEMIA, UNSPECIFIED 04/04/2017 KATHLEEN CABRERA MD R Ot E03.9 HYPOTHYROIDISM, UNSPECIFIED 04/04/2017 KATHLEEN CABRERA MD R Ot R73.02 IMPAIRED GLUCOSE TOLERANCE (ORAL) 04/04/2017 KATHLEEN CABRERA MD R Ot M89.8X6 OTHER SPECIFIED DISORDERS OF BONE, LOWER 04/04/2017 PEPPER MARTINEZ Ot S99.921A UNSPECIFIED INJURY OF RIGHT FOOT, INITIA 04/04/2017 PEPPER MARTINEZ Ot X58.XXXA EXPOSURE TO OTHER SPECIFIED FACTORS, INI 04/04/2017 PEPPER MARTINEZ Ot Y99.8 OTHER EXTERNAL CAUSE STATUS 04/04/2017 KATHLEEN CABRERA MD R Ot 784.42 DYSPHONIA 04/04/2017 KATHLEEN CABRERA MD Ot D64.9 ANEMIA, UNSPECIFIED 04/04/2017 KATHLEEN CABRERA MD R Ot E03.9 HYPOTHYROIDISM, UNSPECIFIED 04/04/2017 KATHLEEN CABRERA MD R Ot R73.02 IMPAIRED GLUCOSE TOLERANCE (ORAL) 04/04/2017 KATHLEEN CABRERA MD R Ot M89.8X6 OTHER SPECIFIED DISORDERS OF BONE, LOWER 04/04/2017 PEPPER MARTINEZ Ot S99.921A UNSPECIFIED INJURY OF RIGHT FOOT, INITIA 04/04/2017 PEPPER MARTINEZ Ot X58.XXXA EXPOSURE TO OTHER SPECIFIED FACTORS, INI 04/04/2017 PEPPER MARTINEZ Ot Y99.8 OTHER EXTERNAL CAUSE STATUS 04/17/2017 KATHLEEN CABRERA MD R Ot 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 04/17/2017 KATHLEEN CABRERA MD R Ot Z96.651 PRESENCE OF RIGHT ARTIFICIAL KNEE JOINT 05/16/2017 KATHLEEN CABRERA MD R Ot 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 05/16/2017 KATHLEEN CABRERA MD R Ot Z96.651 PRESENCE OF RIGHT ARTIFICIAL KNEE JOINT 05/24/2017 KATHLEEN CABRERA MD R Ot 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 05/24/2017 KATHLEEN CABRERA MD R Ot Z96.651 PRESENCE OF RIGHT ARTIFICIAL KNEE JOINT 08/07/2017 KENAN HALL HUMBLE Ot R33.9 RETENTION OF URINE, UNSPECIFIED 09/22/2017 KENAN HALL HUMBLE Ot R33.9 RETENTION OF URINE, UNSPECIFIED 10/08/2017 KENAN HALL HUMBLE Ot R33.9 RETENTION OF URINE, UNSPECIFIED 12/05/2017 KATHLEEN CABRERA MD R Ot 787.20 DYSPHAGIA, UNSPECIFIED 02/11/2018 DEBORAH HALL KATHLEEN R Ot G47.37 CENTRAL SLEEP APNEA IN CONDITIONS CLASSI 02/11/2018 KATHLEEN CABRERA MD R Ot R06.02 SHORTNESS OF BREATH 02/11/2018 KATHLEEN CABRERA MD R Ot R13.10 DYSPHAGIA, UNSPECIFIED 02/11/2018 DEBORAH HALL KATHLEEN R Ot R49.0 DYSPHONIA 02/11/2018 DEBORAH HALL KATHLEEN R Ot T84.89XA [facility] COMP OF INTERNAL ORTHOPEDIC PROSTH D 02/27/2018 NIYA CHAVEZ COTTON BAG CLIPPER-C Ot J20.9 ACUTE BRONCHITIS, UNSPECIFIED 03/03/2018 KATHLEEN CABRERA MD R Ot G47.37 CENTRAL SLEEP APNEA IN CONDITIONS CLASSI 03/03/2018 KATHLEEN CABRERA MD R Ot R06.02 SHORTNESS OF BREATH 03/03/2018 KATHLEEN CABRERA MD R Ot R13.10 DYSPHAGIA, UNSPECIFIED 03/03/2018 KATHLEEN CABRERA MD Ot R49.0 DYSPHONIA 03/03/2018 KATHLEEN CABRERA MD Ot T84.89XA OT COMP OF INTERNAL ORTHOPEDIC PROSTH D 03/18/2018 NIYA CHAVEZ-C Ot J20.9 ACUTE BRONCHITIS, UNSPECIFIED 03/20/2018 KATHLEEN CABRERA MD Ot 784.42 DYSPHONIA 03/20/2018 KATHLEEN CABRERA MD Ot D64.9 ANEMIA, UNSPECIFIED 03/20/2018 KATHLEEN CABRERA MD Ot E03.9 HYPOTHYROIDISM, UNSPECIFIED 03/20/2018 KATHLEEN CABRERA MD Ot R73.02 IMPAIRED GLUCOSE TOLERANCE (ORAL) 03/20/2018 KATHLEEN CABRERA MD Ot M89.8X6 OTHER SPECIFIED DISORDERS OF BONE, LOWER 03/20/2018 PEPPER MARTINEZ Ot S99.921A UNSPECIFIED INJURY OF RIGHT FOOT, INITIA 03/20/2018 PEPPER MARTINEZ Ot X58.XXXA EXPOSURE TO OTHER SPECIFIED FACTORS, INI 03/20/2018 PEPPER MARTINEZ Ot Y99.8 OTHER EXTERNAL CAUSE STATUS 03/20/2018 KATHLEEN CABRERA MD Ot G47.37 CENTRAL SLEEP APNEA IN CONDITIONS CLASSI 03/20/2018 KATHLEEN CABRERA MD Ot R06.02 SHORTNESS OF BREATH 03/20/2018 KATHLEEN CABRERA MD Ot R13.10 DYSPHAGIA, UNSPECIFIED 03/20/2018 KATHLEEN CABRERA MD Ot R49.0 DYSPHONIA 03/20/2018 KATHLEEN CABRERA MD Ot T84.89XA OT COMP OF INTERNAL ORTHOPEDIC PROSTH D 03/20/2018 NIYA CHAVEZ-C Ot J20.9 ACUTE BRONCHITIS, UNSPECIFIED 03/20/2018 GABBIE AZUL MD Ot J20.9 ACUTE BRONCHITIS, UNSPECIFIED 03/20/2018 GABBIE AZUL MD, Ot J42 UNSPECIFIED CHRONIC BRONCHITIS 03/20/2018 GABBIE AZUL MD Ot R06.02 SHORTNESS OF BREATH 03/20/2018 GABBIE AZUL MD Ot Z79.52 NURSING HOME (CURRENT) USE OF SYSTEMIC STER 03/20/2018 GABBIE AZUL MD, Ot Z79.82 NURSING HOME (CURRENT) USE OF ASPIRIN 03/20/2018 GABBIE AZUL MD Ot Z79.84 AIR ANALYSIS ENGINEERING TECHNICIAN (CURRENT) USE OF ORAL HYPOGLYC 03/20/2018 GABBIE AZUL MD Ot Z82.49 FAMILY HX OF ISCHEM HEART DIS AND OTH DI 03/20/2018 GABBIE AZUL MD Ot Z87.01 PERSONAL HISTORY OF PNEUMONIA (RECURRENT 03/20/2018 GABBIE AZUL MD Ot Z87.19 PERSONAL HISTORY OF OTHER DISEASES OF TH 03/20/2018 GABBIE AZUL MD Ot Z87.891 PERSONAL HISTORY OF NICOTINE DEPENDENCE 03/23/2018 GABBIE AZUL MD Ot J20.9 ACUTE BRONCHITIS, UNSPECIFIED 03/23/2018 GABBIE AZUL MD Ot J42 UNSPECIFIED CHRONIC BRONCHITIS 03/23/2018 GABBIE AZUL MD Ot R06.02 SHORTNESS OF BREATH 03/23/2018 GABBIE AZUL MD Ot Z79.52 AIR ANALYSIS ENGINEERING TECHNICIAN (CURRENT) USE OF SYSTEMIC STER 03/23/2018 GABBIE AZUL MD Ot Z79.82 NURSING HOME (CURRENT) USE OF ASPIRIN 03/23/2018 GABBIE AZUL MD Ot Z79.84 AIR ANALYSIS ENGINEERING TECHNICIAN (CURRENT) USE OF ORAL HYPOGLYC 03/23/2018 GABBIE AZUL MD Ot Z82.49 FAMILY HX OF ISCHEM HEART DIS AND OTH DI 03/23/2018 GABBIE AZUL MD Ot Z87.01 PERSONAL HISTORY OF PNEUMONIA (RECURRENT 03/23/2018 GABBIE AZUL MD Ot Z87.19 PERSONAL HISTORY OF OTHER DISEASES OF 03/23/2018 GABBIE AZUL MD Ot Z87.891 PERSONAL HISTORY OF NICOTINE DEPENDENCE 03/23/2018 KATHLEEN CABRERA MD Ot M47.816 SPONDYLOSIS W/O MYELOPATHY OR RADICULOPA 03/23/2018 KATHLEEN CABRERA MD Ot M51.36 OTHER INTERVERTEBRAL DISC DEGENERATION, 04/20/2018 GABBIE AZUL MD Ot J20.9 ACUTE BRONCHITIS, UNSPECIFIED 04/20/2018 GABBIE AZUL MD Ot J42 UNSPECIFIED CHRONIC BRONCHITIS 04/20/2018 GABBIE AZUL MD Ot M47.816 SPONDYLOSIS W/O MYELOPATHY OR RADICULOPA 04/20/2018 GABBIE AZUL MD, Ot M51.36 OTHER INTERVERTEBRAL DISC DEGENERATION, 04/20/2018 GABBIE AZUL MD, Ot R06.02 SHORTNESS OF BREATH 04/20/2018 GABBIE AZUL MD, Ot Z79.52 AIR ANALYSIS ENGINEERING TECHNICIAN (CURRENT) USE OF SYSTEMIC STER 04/20/2018 GABBIE AZUL MD, Ot Z79.82 NURSING HOME (CURRENT) USE OF ASPIRIN 04/20/2018 GABBIE AZUL MD, Ot Z79.84 AIR ANALYSIS ENGINEERING TECHNICIAN (CURRENT) USE OF ORAL HYPOGLYC 04/20/2018 GABBIE AZUL MD, Ot Z82.49 FAMILY HX OF ISCHEM HEART DIS AND OTH DI 04/20/2018 GABBIE AZUL MD, Ot Z87.01 PERSONAL HISTORY OF PNEUMONIA (RECURRENT 04/20/2018 GABBIE AZUL MD, Ot Z87.19 PERSONAL HISTORY OF OTHER DISEASES OF TH 04/20/2018 GABBIE AZUL MD, Ot Z87.891 PERSONAL HISTORY OF NICOTINE DEPENDENCE 04/24/2018 KATHLEEN CABRERA MD, Ot Z45.2 ENCOUNTER FOR ADJUSTMENT AND MANAGEMENT 04/24/2018 KATHLEEN CABRERA MD, Ot Z86.19 PERSONAL HISTORY OF OTHER INFECTIOUS AND 05/04/2018 CONNIE OLGUIN APRN Ot Z86.19 PERSONAL HISTORY OF OTHER INFECTIOUS AND 05/21/2018 CONNIE OLGUIN APRN Ot Z86.19 PERSONAL HISTORY OF OTHER INFECTIOUS AND 05/27/2018 KATHLEEN CABRERA MD, Ot Z45.2 ENCOUNTER FOR ADJUSTMENT AND MANAGEMENT 05/27/2018 KATHLEEN CABRERA MD, Ot Z86.19 PERSONAL HISTORY OF OTHER INFECTIOUS AND Procedures There is no data. Results Test Result Range Complete blood count (CBC) with automated white blood cell (WBC) differential - 04/01/16 12:35 Blood leukocytes automated count (number/volume) 8.1 10*3/uL 4.3-11.0 Blood erythrocytes automated count (number/volume) 4.95 10*6/uL 4.35-5.85 Venous blood hemoglobin measurement (mass/volume) 12.8 g/dL 11.5-16.0 Blood hematocrit (volume fraction) 40 % 35-52 Automated erythrocyte mean corpuscular volume 80 [foz_us] 80-99 Automated erythrocyte mean corpuscular hemoglobin (mass per erythrocyte) 26 pg 25-34 Automated erythrocyte mean corpuscular hemoglobin concentration measurement ( mass/volume) 32 g/dL 32-36 Automated erythrocyte distribution width ratio 15.0 % 10.0-14.5 Automated blood platelet count (count/volume) 257 10*3/uL 130-400 Automated blood platelet mean volume measurement 10.9 [foz_us] 7.4-10.4 Automated blood neutrophils/100 leukocytes 67 % 42-75 Automated blood lymphocytes/100 leukocytes 26 % 12-44 Blood monocytes/100 leukocytes 6 % 0-12 Automated blood eosinophils/100 leukocytes 2 % 0-10 Automated blood basophils/100 leukocytes 0 % 0-10 Blood neutrophils automated count (number/volume) 5.4 10*3 1.8-7.8 Blood lymphocytes automated count (number/volume) 2.1 10*3 1.0-4.0 Blood monocytes automated count (number/volume) 0.5 10*3 0.0-1.0 Automated eosinophil count 0.1 10*3/uL 0.0-0.3 Automated blood basophil count (count/volume) 0.0 10*3/uL 0.0-0.1 Comprehensive metabolic panel - 04/01/16 12:35 Serum or plasma sodium measurement (moles/volume) 139 mmol/L 135-145 Serum or plasma potassium measurement (moles/volume) 3.7 mmol/L 3.6-5.0 Serum or plasma chloride measurement (moles/volume) 104 mmol/L 98-107 Carbon dioxide 27 mmol/L 21-32 Serum or plasma anion gap determination (moles/volume) 8 mmol/L 5-14 Serum or plasma urea nitrogen measurement (mass/volume) 13 mg/dL 7-18 Serum or plasma creatinine measurement (mass/volume) 0.71 mg/dL 0.60-1.30 Serum or plasma urea nitrogen/creatinine mass ratio 18 NRG Serum or plasma creatinine measurement with calculation of estimated glomerular filtration rate > NRG Serum or plasma glucose measurement (mass/volume) 111 mg/dL 70-105 Serum or plasma calcium measurement (mass/volume) 9.6 mg/dL 8.5-10.1 Serum or plasma total bilirubin measurement (mass/volume) 1.8 mg/dL 0.1-1.0 Serum or plasma alkaline phosphatase measurement (enzymatic activity/volume) 81 U/L 40-136 Serum or plasma aspartate aminotransferase measurement (enzymatic activity/ volume) 23 U/L 5-34 Serum or plasma alanine aminotransferase measurement (enzymatic activity/volume ) 20 U/L 0-55 Serum or plasma protein measurement (mass/volume) 6.2 g/dL 6.4-8.2 Serum or plasma albumin measurement (mass/volume) 3.9 g/dL 3.2-4.5 Clostridium difficile detection - 04/03/16 12:05 C DIFF MOLECULAR RESULT Positive for toxigenic C diff by DNA amplification [facility] CALL POSITIVES (F1 HELP) CALLED TO GERARDO STOUT 04/03/16 14:45 BY Mikey PAGAN [facility] Bacterial urine culture - 03/28/17 17:00 URINE CULTURE RESULTS <10,000/ML [facility] Complete blood count (CBC) with automated white blood cell (WBC) differential - 05/03/17 13:21 Blood leukocytes automated count (number/volume) 6.6 10*3/uL 4.3-11.0 Blood erythrocytes automated count (number/volume) 4.96 10*6/uL 4.35-5.85 Venous blood hemoglobin measurement (mass/volume) 11.3 g/dL 11.5-16.0 Blood hematocrit (volume fraction) 37 % 35-52 Automated erythrocyte mean corpuscular volume 75 [foz_us] 80-99 Automated erythrocyte mean corpuscular hemoglobin (mass per erythrocyte) 23 pg 25-34 Automated erythrocyte mean corpuscular hemoglobin concentration measurement ( mass/volume) 31 g/dL 32-36 Automated erythrocyte distribution width ratio 19.3 % 10.0-14.5 Automated blood platelet count (count/volume) 132 10*3/uL 130-400 Automated blood platelet mean volume measurement 11.7 [foz_us] 7.4-10.4 Automated blood neutrophils/100 leukocytes 75 % 42-75 Automated blood lymphocytes/100 leukocytes 15 % 12-44 Blood monocytes/100 leukocytes 8 % 0-12 Automated blood eosinophils/100 leukocytes 2 % 0-10 Automated blood basophils/100 leukocytes 1 % 0-10 Blood neutrophils automated count (number/volume) 4.9 10*3 1.8-7.8 Blood lymphocytes automated count (number/volume) 1.0 10*3 1.0-4.0 Blood monocytes automated count (number/volume) 0.6 10*3 0.0-1.0 Automated eosinophil count 0.1 10*3/uL 0.0-0.3 Automated blood basophil count (count/volume) 0.0 10*3/uL 0.0-0.1 PT panel in platelet poor plasma by coagulation assay - 05/03/17 13:21 Prothrombin time (PT) in platelet poor plasma by coagulation assay 14.1 s 12.2-14.7 INR in platelet poor plasma or blood by coagulation assay 1.1 0.8-1.4 Activated partial thromboplastin time (aPTT) in platelet poor plasma bycoagulation assay - 05/03/17 13:21 Activated partial thromboplastin time (aPTT) in platelet poor plasma bycoagulation assay 33 s 24-35 Comprehensive metabolic panel - 05/03/17 13:21 Serum or plasma sodium measurement (moles/volume) 139 mmol/L 135-145 Serum or plasma potassium measurement (moles/volume) 4.0 mmol/L 3.6-5.0 Serum or plasma chloride measurement (moles/volume) 104 mmol/L 98-107 Carbon dioxide 28 mmol/L 21-32 Serum or plasma anion gap determination (moles/volume) 7 mmol/L 5-14 Serum or plasma urea nitrogen measurement (mass/volume) 10 mg/dL 7-18 Serum or plasma creatinine measurement (mass/volume) 0.76 mg/dL 0.60-1.30 Serum or plasma urea nitrogen/creatinine mass ratio 13 NRG Serum or plasma creatinine measurement with calculation of estimated glomerular filtration rate > NRG Serum or plasma glucose measurement (mass/volume) 105 mg/dL 70-105 Serum or plasma calcium measurement (mass/volume) 8.7 mg/dL 8.5-10.1 Serum or plasma total bilirubin measurement (mass/volume) 0.5 mg/dL 0.1-1.0 Serum or plasma alkaline phosphatase measurement (enzymatic activity/volume) 64 U/L 40-136 Serum or plasma aspartate aminotransferase measurement (enzymatic activity/ volume) 45 U/L 5-34 Serum or plasma alanine aminotransferase measurement (enzymatic activity/volume ) 50 U/L 0-55 Serum or plasma protein measurement (mass/volume) 6.4 g/dL 6.4-8.2 Serum or plasma albumin measurement (mass/volume) 3.8 g/dL 3.2-4.5 Magnesium - 05/03/17 13:21 Magnesium 2.0 mg/dL 1.8-2.4 Serum or plasma creatine kinase measurement (enzymatic activity/volume) - 05/03 13:21 Serum or plasma creatine kinase measurement (enzymatic activity/volume) 74 U/L 29-168 Serum or plasma lithium measurement (moles/volume) - 05/03/17 13:21 BNP level 218.0 pg/mL <100.0 Serum or plasma creatine kinase MB measurement (enzymatic activity/volume) - 13:21 Serum or plasma creatine kinase MB measurement (enzymatic activity/volume) 1.8 ng/mL <6.6 Serum or plasma troponin i.cardiac measurement (mass/volume) - 05/03/17 13:21 Serum or plasma troponin i.cardiac measurement (mass/volume) < ng/ mL <0.30 Complete blood count (CBC) with automated white blood cell (WBC) differential - 03/20/18 19:18 Blood leukocytes automated count (number/volume) 8.3 10*3/uL 4.3-11.0 Blood erythrocytes automated count (number/volume) 4.57 10*6/uL 4.35-5.85 Venous blood hemoglobin measurement (mass/volume) 11.4 g/dL 11.5-16.0 Blood hematocrit (volume fraction) 36 % 35-52 Automated erythrocyte mean corpuscular volume 79 [foz_us] 80-99 Automated erythrocyte mean corpuscular hemoglobin (mass per erythrocyte) 25 pg 25-34 Automated erythrocyte mean corpuscular hemoglobin concentration measurement ( mass/volume) 32 g/dL 32-36 Automated erythrocyte distribution width ratio 16.8 % 10.0-14.5 Automated blood platelet count (count/volume) 178 10*3/uL 130-400 Automated blood platelet mean volume measurement 10.6 [foz_us] 7.4-10.4 Automated blood neutrophils/100 leukocytes 58 % 42-75 Automated blood lymphocytes/100 leukocytes 35 % 12-44 Blood monocytes/100 leukocytes 5 % 0-12 Automated blood eosinophils/100 leukocytes 2 % 0-10 Automated blood basophils/100 leukocytes 0 % 0-10 Blood neutrophils automated count (number/volume) 4.8 10*3 1.8-7.8 Blood lymphocytes automated count (number/volume) 2.9 10*3 1.0-4.0 Blood monocytes automated count (number/volume) 0.4 10*3 0.0-1.0 Automated eosinophil count 0.2 10*3/uL 0.0-0.3 Automated blood basophil count (count/volume) 0.0 10*3/uL 0.0-0.1 Fibrin D-dimer FEU measurement in platelet poor plasma (mass/volume) - 19:18 Fibrin D-dimer FEU measurement in platelet poor plasma (mass/volume) 0.92 ug/mL 0.00-0.49 Comprehensive metabolic panel - 03/20/18 19:18 Serum or plasma sodium measurement (moles/volume) 140 mmol/L 135-145 Serum or plasma potassium measurement (moles/volume) 4.4 mmol/L 3.6-5.0 Serum or plasma chloride measurement (moles/volume) 105 mmol/L 98-107 Carbon dioxide 25 mmol/L 21-32 Serum or plasma anion gap determination (moles/volume) 10 mmol/L 5-14 Serum or plasma urea nitrogen measurement (mass/volume) 11 mg/dL 7-18 Serum or plasma creatinine measurement (mass/volume) 0.90 mg/dL 0.60-1.30 Serum or plasma urea nitrogen/creatinine mass ratio 12 NRG Serum or plasma creatinine measurement with calculation of estimated glomerular filtration rate > NRG Serum or plasma glucose measurement (mass/volume) 200 mg/dL 70-105 Serum or plasma calcium measurement (mass/volume) 9.4 mg/dL 8.5-10.1 Serum or plasma total bilirubin measurement (mass/volume) 0.8 mg/dL 0.1-1.0 Serum or plasma alkaline phosphatase measurement (enzymatic activity/volume) 86 U/L 40-136 Serum or plasma aspartate aminotransferase measurement (enzymatic activity/ volume) 21 U/L 5-34 Serum or plasma alanine aminotransferase measurement (enzymatic activity/volume ) 20 U/L 0-55 Serum or plasma protein measurement (mass/volume) 5.6 g/dL 6.4-8.2 Serum or plasma albumin measurement (mass/volume) 3.6 g/dL 3.2-4.5 Serum or plasma C reactive protein measurement (mass/volume) - 03/20/18 19:18 Serum or plasma C reactive protein measurement (mass/volume) 2.39 mg /dL 0.00-0.50 Serum or plasma lithium measurement (moles/volume) - 03/20/18 19:18 BNP level 26.9 pg/mL <100.0 Stool bacteria identification by culture - 04/14/18 13:00 FREE TEXT EXTERNAL MANY NRG QUANTITY OF GROWTH . NRG FREE TEXT ENTRY 2 RML REPORTED SENSITIVITY 04/18 13:05 NRG Stool bacteria identification by culture SEE COMMEN NRG FREE TEXT ENTRY 3 CIPROFLOXACIN:INTERMEDIATE BY E-TEST NRG RML Sensitivity Panel - 04/14/18 13:00 Trimethoprim/sulfamethoxazole susceptibility test by minimum inhibitoryconcentration R NRG Ampicillin susceptibility test by minimum inhibitory concentration > NRG Stool bacteria identification by culture - 05/01/18 09:20 QUANTITY OF GROWTH . NRG Stool bacteria identification by culture SEE COMMEN NRG Encounters ACCT No. Visit Date/Time Discharge Status Pt. Type Provider Facility Loc./Unit Complaint [id number] 05/25/2018 00:46:00 05/25/2018 23:59:59 CLS Preadmit KATHLEEN CABRERA MD [facility] [id number] 05/01/2018 09:34:00 05/01/2018 23:59:59 CLS Outpatient CONNIE OLGUIN APRN Via [facility] LAB V12.09 [id number] 04/14/2018 09:44:00 04/24/2018 00:01:00 DIS Outpatient KATHLEEN CABRERA MD [facility] [id number] 03/20/2018 10:52:00 03/20/2018 23:59:59 CLS Outpatient KATHLEEN CABRERA MD [facility] RAD CHRONIC ALEXIS LOW BACK PAIN [id number] 03/20/2018 18:16:00 03/20/2018 21:20:00 DIS Outpatient GABBIE AZUL MD [facility] ER SOB [id number] 02/26/2018 17:40:00 02/26/2018 23:59:59 CLS Outpatient NIYA CHAVEZ-Christiano [facility] RAD COUGH [id number] 02/10/2018 14:22:00 02/10/2018 23:59:59 CLS Outpatient KATHLEEN CABRERA MD [facility] RAD HX KNEE REPLACEMENT,KNEE PAIN,KNEE SWELLING [id number] 09/10/2017 11:14:00 10/08/2017 15:33:00 DIS Outpatient HUMBLE GRAYSON MD [facility] REHAB INCOMPLETE BLADDER EMPTYING [id number] 05/25/2017 02:39:00 05/25/2017 23:59:59 CLS Preadmit KATHLEEN CABRERA MD [facility] REHAB R TOTAL KNEE [id number] 05/08/2017 10:28:00 05/24/2017 00:01:00 DIS Outpatient KATHLEEN CABRERA MD [facility] REHAB R TOTAL KNEE [id number] 05/03/2017 12:53:00 05/03/2017 12:53:00 CAN Preadmit NASREEN BLOUNT DO [facility] ER SOA [id number] 03/05/2017 10:04:00 04/01/2017 08:58:00 DIS Outpatient DEVANTE HALL[facility]R IT BAND SYNDROME [id number] 03/28/2017 19:27:00 03/28/2017 23:59:59 CLS Outpatient CONNIE OLGUIN APRN [facility] LAB ACUTE CYSTITIS WITH HEMATURIA [id number] 01/22/2017 11:26:00 02/26/2017 14:59:00 DIS Outpatient FLAVIA ALBARADO MD [facility] REHAB VOCAL CORD ISSUES [id number] 12/30/2016 14:02:00 12/30/2016 23:59:59 CLS Outpatient KATHLEEN CABRERA MD [facility] RAD M25.561, G89.29 CHRONIC KNEE PAIN [id number] 12/30/2016 08:31:00 12/30/2016 23:59:59 CLS Preadmit KATHLEEN CABRERA MD [facility] RAD M25.561 G89.29 [id number] 12/27/2016 15:30:00 12/27/2016 23:59:59 CLS Outpatient PEPPER MARTINEZ [facility] RAD ACUTE RT KNEE PAIN [id number] 08/26/2016 00:15:00 08/26/2016 23:59:59 CLS Preadmit JONEL LOW MD [facility] REHAB S/P R TOTAL KNEE [id number] 08/08/2016 12:51:00 08/25/2016 00:01:00 DIS Outpatient JONEL LOW MD [facility] REHAB S/P R TOTAL KNEE [id number] 08/06/2016 13:16:00 08/06/2016 23:59:59 CLS Outpatient PEPPER MARTINEZ [facility] RAD INJURY OF GREAT TOE RT INITIAL ENCOUNTER,E959.7 [id number] 05/22/2016 10:21:00 05/24/2016 17:00:00 DIS Outpatient JONEL LOW MD [facility] REHAB S/P R TOTAL KNEE [id number] 04/25/2016 07:08:00 04/25/2016 23:59:59 CLS Outpatient KATHLEEN CABRERA MD [facility] RAD PAINFUL POSTERIOR LEG [id number] 04/01/2016 11:55:00 2016 17:26:00 DIS Inpatient KATHLEEN CABRERA MD [facility] 4TH SEVERE PAIN RT KNEE, NAUSEA,VOMITING [id number] 12/13/2015 14:28:00 12/13/2015 23:59:59 CLS Outpatient KATHLEEN CABRERA MD [facility] LAB HYPOTHYROIDISM,ANEMIA [id number] 05/11/2015 13:55:00 05/15/2015 10:23:00 DIS Inpatient KATHLEEN CABRERA MD [facility] 4TH PAIN ABD,PELVIS [id number] 12/06/2014 11:22:00 12/06/2014 23:59:59 CLS Outpatient KATHLEEN CABRERA MD [facility] RAD HOARSENESS, LEISION [id number] 07/14/2014 11:19:00 07/14/2014 23:59:59 CLS Outpatient RIC FLOREZ MD [facility] RAD [id number] 02/11/2014 12:43:00 02/13/2014 10:40:00 DIS Inpatient DEBORAH HALL, KATHLEEN Koroma Via [address] [id number] 10/19/2013 18:45:00 10/21/2013 11:00:00 DIS Inpatient DEBORAH HALL, KATHLEEN Koroma Via [address] [id number] 10/16/2013 13:56:00 10/18/2013 09:30:00 DIS Inpatient KATHLEEN CABRERA MD Via [address] [id number] 10/06/2013 16:55:00 10/15/2013 09:35:00 DIS Outpatient DEBORAH HALL, KATHLEEN Koroma [facility] [id number] 09/27/2013 15:40:00 10/05/2013 10:15:00 DIS Inpatient KATHLEEN CABRERA MD Via [address] [id number] 09/01/2013 15:25:00 09/05/2013 14:15:00 DIS Inpatient BIJAN MIGUEL DO Via [address] [id number] 07/28/2013 00:43:00 08/02/2013 13:25:00 DIS Inpatient KATHLEEN CABRERA MD Via [address] ABD PAIN/VOMITING [id number] 07/15/2013 16:50:00 07/21/2013 13:45:00 DIS Inpatient KATHLEEN CABRERA MD Via [address] CONSTIPATION [id number] 07/15/2013 00:31:00 07/15/2013 01:59:00 DIS Emergency MINE NASREEN MARISCAL [facility] ER STOMACH PAIN [id number] 04/15/2013 08:31:00 04/15/2013 23:59:59 CLS Outpatient KATHLEEN CABRERA MD [facility] RAD DYSPHAGIA [id number] 02/20/2013 14:44:00 02/20/2013 17:53:00 DIS Emergency MINE NASREEN MARISCAL [facility] ER FALL [id number] 02/15/2013 16:32:00 02/19/2013 12:10:00 DIS Inpatient KATHLEEN CABRERA MD [facility] 4TH ABD PAIN [id number] 11/12/2012 07:30:00 Document Registration [id number] 10/20/2012 10:05:00 Document Registration [id number] 07/27/2012 22:28:00 Document Registration [id number] 12/07/2014 05:33:40 ACT Document Registration
[2018-06-23] MEDS ORDERED: GABAPENTIN 600 MG (NEURONTIN) TAB PO ONE (06:30)
--- NOTE | 2018-06-23 06:49 | ED Lower Extremity ---
General Chief Complaint: Lower Extremity Stated Complaint: LEG PAIN Nursing Triage Note: PT ARRIVES TO ED ROOM #6 WITH C/O BLE RESTLESSNESS, PAIN, AND NERVE "TWITCHING" . PT STATES THAT SHE RAN OUT OF HER GABAPENTIN 3-4 DAYS AGO. PT DENIES INJURY. Nursing Sepsis Screen: No Definite Risk Source: patient Exam Limitations: no limitations History of Present Illness Date Seen by Provider: Jun 23, 2018 Time Seen by Provider: 06:16 Initial Comments Here with report of pain to both legs with increasing restless leg syndrome, pain to the right knee with increasing redness and heat and unable to sleep overnight. She did try a pain pill and her alprazolam and that did not work last night. She sees doctors here and in [place] for a variety of things and has pain management doctor in [place]. She is supposed to be gabapentin 1800 mg 3 times a day but she is out of her prescription for the last 3 days. She has prescription to be picked up at [facility] and can get that today. Denies fever or chills. Chronically short of breath which is unchanged. Denies chest pain. Onset: other (last 3 days) Severity: moderate Pain/Injury Location: right knee Method of Injury: unknown Modifying Factors: Worse With Movement; Improves With Other (not relieved by any factors) Allergies and Home Medications Allergies Coded Allergies: No Known Drug Allergies (Unverified , 02/11/14) Home Medications Acyclovir 5 Gm Cream.gm., TOP Q4H PRN for FEVER BLISTER, (Reported) Albuterol Sulfate 1 Puff Puff, 2 PUFF IH Q4H PRN for DYSPNEA 1 PUFF = 90 MCG Prescribed by: GABBIE AZUL on 03/20/182106 Alprazolam 1 Mg Tablet, 1 MG PO HS, (Reported) Amoxicillin 500 Mg Tablet, 500 MG PO QID, (Reported) Aspirin 325 Mg Tablet.dr, 325 MG PO HS, (Reported) Cyclosporine 1 Each Droperette, 1 DROP OU BID, (Reported) Estradiol 42.5 Gm Cream.appl, 1 APPLIC VG DAILY PRN for DISCOMFORT, (Reported) Fentanyl 1 Each Patch.td72, 100 MCG TD Q72H Prescribed by: SERENA CABRERA on 04/03/16 0723 Gabapentin 600 Mg Tablet, 1,800 MG PO BID, (Reported) TAKES 3 (600MG) TABLETS Hydrocodone Bit/Acetaminophen 1 Each Tablet, 1 EACH PO Q4H PRN for PAIN, ( Reported) Metformin HCl 500 Mg Tablet, 500 MG PO BID, (Reported) Mineral Oil/Petrolatum,White 3.5 Gm Oint...g., OU HS, (Reported) Ondansetron 4 Mg Tab.rapdis, 4-8 MG PO Q8H PRN for NAUSEA/VOMITING-1ST LINE, ( Reported) Oxycodone HCl/Acetaminophen 1 Each Tablet, 1 EACH PO BID Prescribed by: SERENA CABRERA on 04/03/16 0724 Polyethylene Glycol 3350 119 Gm Powder, 17 GM PO DAILY PRN for CONSTIPATION, ( Reported) Pramipexole Di-HCl 0.125 Mg Tablet, 0.125 MG PO 1599,1999, (Reported) Simvastatin 40 Mg Tablet, 40 MG PO HS, (Reported) Solifenacin Succinate 10 Mg Tablet, 10 MG PO HS, (Reported) Sucralfate 1 Gm Tablet, 1 GM PO BID, (Reported) Zolpidem Tartrate 12.5 Mg Tab.mphase, 12.5 MG PO HS, (Reported) Patient Home Medication List Home Medication List Reviewed: Yes Review of Systems Constitutional: see HPI; No chills, No fever Respiratory: see HPI, short of breath, wheezing Cardiovascular: no symptoms reported Gastrointestinal: No nausea, No vomiting Musculoskeletal: see HPI, joint pain, muscle pain, muscle cramps Skin: change in color, lesions Psychiatric/Neurological: Anxiety; Denies Headache Past Dfizrpf-Hgvulm-Qxyfqf Hx Past Med/Social Hx: Reviewed Nursing Past Med/Soc Hx Patient Social History Alcohol Use: Denies Use Recreational Drug Use: No 2nd Hand Smoke Exposure: No Recent Foreign Travel: No Contact w/Someone Who Travel: No Recent Infectious Disease Expo: No Recent Hopitalizations: Yes (january 24 right knee replacement) Physical Abuse: No Sexual Abuse: No Mistreated: No Fear: No Immunizations Up To Date Tetanus Booster (TDap): More than 5yrs Date of Pneumonia Vaccine: Oct 04, 2011 Date of Influenza Vaccine: Jul 06, 2013 Seasonal Allergies Seasonal Allergies: No Past Medical History Surgeries: Yes (CHIARI MALFORMATION REPAIR. EGD'S AND COLONOSCOPIES--LAST ONES 1 MONTH AGO.) Abdominal Respiratory: Yes Pneumonia Cardiac: Yes Neurological: Yes (CHIARI MALFORMATION surgically fixed) Reproductive Disorders: No Female Reproductive Disorders: Denies Sexually Transmitted Disease: No HIV/AIDS: No Gastrointestinal: Yes ("COMPLETE ABD RECONSTRUCTION" 2010. CHRONIC ABDOMINAL PAIN) Chronic Constipation, Chronic Diarrhea Musculoskeletal: Yes (CHRONIC GENERALIZED PAIN--NARCOTIC DEPENDENT) Arthritis, Chronic Back Pain Endocrine: Yes (MASS LT THYROID REMOVED 01/01/2013) Cancer: No Psychosocial: No Integumentary: No Blood Disorders: No Adverse Reaction/Blood Tranf: No Family Medical History Reviewed Nursing Family Hx Cancer 03 FATHER (PANCREATIC, PASSED AT 65 FROM THIS) Cataract 03 MOTHER Dementia 03 MOTHER Family history: Arthritis 03 MOTHER Family history: Cardiovascular disease 03 MOTHER (HIGH CHOLESTEROL, [place] ARTERIES 2 TIMES) Hearing loss 03 MOTHER Hypercholesterolemia 03 MOTHER Cancer Physical Exam Vital Signs Vital Signs - First Documented 06/23/18 06:13 Temp 96.1 Pulse 80 Resp 18 B/P (MAP) 158/70 (99) Pulse Ox 97 Capillary Refill : Less Than 3 Seconds Height, Weight, BMI Height: 5'6.00" Weight: 224lbs. 0.0oz. 101.914678uy; 34.7 BMI Method:Stated General Appearance: WD/WN, no apparent distress Cardiovascular: regular rate, rhythm, no murmur Respiratory: lungs clear, no accessory muscle use, other (chewing breath after walking patient better with rest. Not hypoxic and no wheezes.) Gastrointestinal: non tender, soft Knees: left knee non-tender, left knee normal inspection, left knee normal range of motion, left knee no evidence of injury; right knee soft tissue tenderness, right knee swelling, right knee other (mildly increased redness with a little pain to the lateral aspect and posterior. Swelling to the knee versus the left knee.) Neurologic/Tendon: normal sensation, normal motor functions, normal tendon functions Neurologic/Psychiatric: alert, oriented x 3 Skin: normal color, warm/dry Progress/Results/Core Measures Results/Orders Lab Results Laboratory Tests Test 06/23/18 07:25 Range/Units White Blood Count 7.5 4.3-11.0 10^3/uL Red Blood Count 4.68 4.35-5.85 10^6/uL Hemoglobin 11.1 L 11.5-16.0 G/DL Hematocrit 36 35-52 % Mean Corpuscular Volume 77 L 80-99 FL Mean Corpuscular Hemoglobin 24 L 25-34 PG Mean Corpuscular Hemoglobin Concent 31 L 32-36 G/DL Red Cell Distribution Width 17.6 H 10.0-14.5 % Platelet Count 234 130-400 10^3/uL Mean Platelet Volume 10.3 7.4-10.4 FL Neutrophils (%) (Auto) 63 42-75 % Lymphocytes (%) (Auto) 28 12-44 % Monocytes (%) (Auto) 6 0-12 % Eosinophils (%) (Auto) 3 0-10 % Basophils (%) (Auto) 0 0-10 % Neutrophils # (Auto) 4.7 1.8-7.8 X 10^3 Lymphocytes # (Auto) 2.1 1.0-4.0 X 10^3 Monocytes # (Auto) 0.4 0.0-1.0 X 10^3 Eosinophils # (Auto) 0.2 0.0-0.3 10^3/uL Basophils # (Auto) 0.0 0.0-0.1 10^3/uL Sodium Level 138 135-145 MMOL/L Potassium Level 4.1 3.6-5.0 MMOL/L Chloride Level 105 98-107 MMOL/L Carbon Dioxide Level 20 L 21-32 MMOL/L Anion Gap 13 5-14 MMOL/L Blood Urea Nitrogen 14 7-18 MG/DL Creatinine 0.78 0.60-1.30 MG/DL Estimat Glomerular Filtration Rate > 60 BUN/Creatinine Ratio 18 Glucose Level 202 H 70-105 MG/DL Calcium Level 9.3 8.5-10.1 MG/DL Corrected Calcium 9.5 8.5-10.1 MG/DL Total Bilirubin 0.8 0.1-1.0 MG/DL Aspartate Amino Transf (AST/SGOT) 16 5-34 U/L Alanine Aminotransferase (ALT/SGPT) 19 0-55 U/L Alkaline Phosphatase 79 40-136 U/L C-Reactive Protein High Sensitivity 1.32 H 0.00-0.50 MG/DL Total Protein 6.6 6.4-8.2 GM/DL Albumin 3.8 3.2-4.5 GM/DL My Orders Orders - DAVID SINGH MD Cbc With Automated Diff (06/23/18 06:29) Comprehensive Metabolic Panel (06/23/18 06:29) Hs C Reactive Protein (06/23/18 06:29) Us Venous Lower Ext Rt (06/23/18 06:29) Gabapentin Capsule/Tablet (Neurontin Cap (06/23/18 06:30) Medications Given in ED Current Medications Medications Dose Ordered Sig/Eloise Route Start Time Stop Time Status Last Admin Dose Admin Gabapentin 1,200 mg ONCE ONCE PO 06/23/18 06:30 06/23/18 06:32 DC 06/23/18 07:28 1,200 MG Vital Signs/I&O 06/23/18 06:13 Temp 96.1 Pulse 80 Resp 18 B/P (MAP) 158/70 (99) Pulse Ox 97 Blood Pressure Mean: 99 Progress Progress Note : Progress Note Seen and evaluated. Patient has been out of her gabapentin and this is likely the cause of her symptoms but we will evaluate for infective versus blood clot symptoms. Basic labs and ultrasound ordered. Gabapentin 1200 mg by mouth ordered. Monitor patient. 0820: Overall a little better but still has the leg movement. I do believe this is from gabapentin withdrawal as ultrasound is negative and labs do not indicate any other significant finding. We will go ahead and give morphine 8 mg IV and then she will discharged home. Patient was comfortable with that plan. Discharged home with return precautions. Patient and family verbalize understanding instructions and agreement with plan. Diagnostic Imaging Diagonstic Imaging: Ultrasound Plain Films/CT/US/NM/MRI: leg Comments Preliminary reading shows no acute findings or DVT. Departure Impression Primary Impression: Restless leg syndrome Additional Impression: Myalgia Disposition: 01 HOME, SELF-CARE Condition: Stable Departure-Patient Inst. Decision time for Depature: 08:27 Referrals: KATHLEEN CABRERA MD (PCP/Family) Primary Care Physician Patient Instructions: Muscle and Bone Pain (DC), Restless Legs Syndrome (DC) Add. Discharge Instructions: All discharge instructions reviewed with patient and/or family. Voiced understanding. Take medications as directed. Fill your prescription and restart that today for your gabapentin. Follow-up with your this week for recheck and further evaluation. Return for worse pain, swelling, weakness, breathing problems or other concerns as needed. Copy Copies To 1: KATHLEEN CABRERA MD, TIMOTHY D MD Jun 23, 2018 06:48
[2018-06-23 07:37] LABS: BASOPHILS % (AUTO) 0 % (0-10); EOSINOPHILS # (AUTO) 0.2 10^3/uL (0.0-0.3); EOSINOPHILS % (AUTO) 3 % (0-10); HEMATOCRIT 36 % (35-52); HEMOGLOBIN 11.1 G/DL (11.5-16.0); LYMPHOCYTES # (AUTO) 2.1 X 10^3 (1.0-4.0); LYMPHOCYTES % (AUTO) 28 % (12-44); MEAN CORPUSCULAR HEMOGLOBIN 24 PG (25-34); MEAN CORPUSCULAR HGB CONC 31 G/DL (32-36); MEAN CORPUSCULAR VOLUME 77 FL (80-99); MEAN PLATELET VOLUME 10.3 FL (7.4-10.4); MONOCYTES # (AUTO) 0.4 X 10^3 (0.0-1.0); MONOCYTES % (AUTO) 6 % (0-12); NEUTROPHILS # (AUTO) 4.7 X 10^3 (1.8-7.8); NEUTROPHILS % (AUTO) 63 % (42-75); PLATELET COUNT 234 10^3/uL (130-400); RED BLOOD COUNT 4.68 10^6/uL (4.35-5.85); RED CELL DISTRIBUTION WIDTH 17.6 % (10.0-14.5); WHITE BLOOD COUNT 7.5 10^3/uL (4.3-11.0)
[2018-06-23 07:59] LABS: ALANINE AMINOTRANSFERASE 19 U/L (0-55); ALBUMIN 3.8 GM/DL (3.2-4.5); ALKALINE PHOSPHATASE 79 U/L (40-136); BILIRUBIN,TOTAL 0.8 MG/DL (0.1-1.0); BUN/CREATININE RATIO 18; CALCIUM 9.3 MG/DL (8.5-10.1); CARBON DIOXIDE 20 MMOL/L (21-32); CHLORIDE 105 MMOL/L (98-107); CREATININE SERUM 0.78 MG/DL (0.60-1.30); GFR ESTIMATED > 60; GLUCOSE 202 MG/DL (70-105); POTASSIUM 4.1 MMOL/L (3.6-5.0); SODIUM 138 MMOL/L (135-145); TOTAL PROTEIN 6.6 GM/DL (6.4-8.2)
[2018-06-23] MEDS ORDERED: morphine INJ 10 MG/ML 1ML (SYR OR VIAL) IVP STA (08:19)
--- NOTE | 2018-06-23 08:34 | Diagnostic Imaging Report ---
PROCEDURE: US right lower extremity venous. TECHNIQUE: Multiple Real-time grayscale images were obtained over the right lower extremity in various projections. Additional duplex Doppler and color Doppler images were also obtained. INDICATION: Pain and swelling. FINDINGS: The right common femoral, superficial femoral, popliteal veins, and tibial veins demonstrate normal response to compression, augmentation, and Valsalva. There are no right lower extremity fluid collections or masses. IMPRESSION: No evidence of deep vein thrombosis in the right lower extremity. Dictated by: Dictated on workstation # [id number]
[2018-06-23 08:52] VITALS: BP 117/57
== END 2018-06-23 08:59 | disposition home or self-care (01) ==
LOC: EDUNIT# 06:02 → ER 06:04
DX: G25.81 Restless legs syndrome (principal); M79.18 Myalgia, other site; Z79.51 Long term (current) use of inhaled steroids; Z79.82 Long term (current) use of aspirin; Z79.84 Long term (current) use of oral hypoglycemic drugs; Z96.651 Presence of right artificial knee joint; Z87.01 Personal history of pneumonia (recurrent); Z87.19 Personal history of other diseases of the digestive system; Z80.0 Family history of malignant neoplasm of digestive organs; Z82.49 Family history of ischemic heart disease and other diseases of the circulatory system
CPT/HCPCS: 36415; 80053; 85025; 86141; 96374

== ENCOUNTER 2018-08-17 12:43 | Emergency (ER) | payer MEDICARE, OTHER ==
[~2018-08-17] VITALS: Ht 167.6 cm; Wt 102.1 kg
--- OUTSIDE RECORDS SUMMARY | 2018-08-17 12:48 | XMS REPORT | Clinical Summary ---
Author Author [facility] Organization [facility] Address Unknown Phone Unavailable Care Team Providers Care Mud Analysis Operator Name Role Phone Judah Lopez RN Unavailable Unavailable Brett Alcantar MD Unavailable Kumar Diggs MD Unavailable Doctor, Miscellaneous Unavailable Unavailable Barbara Pelaez MD Unavailable Adolfo Cardenas MD PCP Fausto Hsu Unavailable Unavailable Nallely Gomez MD Unavailable Silvano Potts MD Unavailable Sarwat Lozano APRN Unavailable Unavailable Aileen Jacobson MD Unavailable Unavailable Leonid Santos MD Unavailable Unavailable Danitza Rios MA,CCC-VOICE AND DATA TECHNICIAN Unavailable Unavailable Gela Cleary RN Unavailable Unavailable Hossein Minaya MD Unavailable Deonna Cunningham RN Unavailable Unavailable Anila Valencia RN Unavailable Unavailable Daniel Bond RN Unavailable Unavailable Yolette Moore MA,CCC-VOICE AND DATA TECHNICIAN Unavailable Unavailable Bryan Romero Unavailable Unavailable Nallely Tracy MA,CCC-VOICE AND DATA TECHNICIAN Unavailable Unavailable Haresh Kathleen MD Unavailable [...] in the Health Information Management department at [phone] for further assistance in locating additional records.[facility] Allergies No Known Allergies Medications End Date Status Medication Sig Dispensed Refills Start Date Active zolpidem CR(+) (AMBIEN Take 12.5 mg 0 CR) 12.5 mg tablet by mouth at bedtime as needed. Active gabapentin (NEURONTIN) Take 600 mg 0 600 mg tablet by mouth daily. Active magnesium marcella/aluminum Take 1 Tab by 0 hydroxide(+) (GAVISCON) mouth at 20/80 mg chew bedtime daily. Active metFORMIN (GLUCOPHAGE) Take 1 Tab by 60 Tab 1 500 mg tablet mouth twice 6 daily with meals. Active pramipexole (MIRAPEX) Take 1 Tab by 60 Tab 1 0.125 mg tablet mouth twice 6 daily. Active acyclovir (ZOVIRAX) 200 Take 1 Cap by 30 Cap 1 mg capsule mouth daily. 6 Active ondansetron (ZOFRAN) 4 mg Take 4 mg by 0 tablet mouth every 8 hours as needed for Nausea or Vomiting. Active estradiol (ESTRACE) 0.01 Insert or 42.5 g % (0.1 mg/g) vaginal Apply to 7 creamIndications: Urinary vaginal area retention three times weekly. Apply at bedtime. Active simvastatin (ZOCOR) 40 mg Take 40 mg by 0 tablet mouth at bedtime daily. Active citalopram (CELEXA) 10 mg Take 10 mg by 0 tablet mouth daily. Active aspirin 325 mg tablet Take 325 mg 0 by mouth daily. Take with food. Active diphenoxylate/atropine Take 1 tablet 30 tablet 1 (LOMOTIL) 2.5/0.025 mg by mouth four 8 tablet times daily as needed for Diarrhea. Active pantoprazole DR Take 1 tablet 30 tablet 3 (PROTONIX) 40 mg tablet by mouth 8 daily. Active mirabegron(+) ER Take 1 tablet 30 tablet 11 (MYRBETRIQ) 50 mg by mouth 8 tabletIndications: daily. Incomplete bladder emptying Active albuterol (PROAIR HFA, Inhale 2 0 VENTOLIN HFA, OR puffs by PROVENTIL HFA) 90 mouth into mcg/actuation inhaler the lungs every 6 hours as needed for Wheezing or Shortness of Breath. Shake well before use. Active fluticasone-vilanterol(+) Inhale one 1 Inhaler 11 (BREO ELLIPTA) 100-25 mcg puff by mouth 8 inhalation disk into the lungs daily. Active Problems Problem Noted Date Palpitations 04/01/2018 Overview: 03/11/2018 - Holter: 24 hour holter monitor associated with sinus rhythm. This is an unremarkable holter monitor Shortness of breath 03/11/2018 Last Assessment & Plan: Mrs. Kelley continues to complain of shortness of breath at rest as well as with exertion. She tells me that she cannot walk any long distances. She is utilizing her CPAP at all times because she feels like it forces oxygen into her lungs. I again reassured Mrs. Kelley that her symptoms do not appear to be cardiac related. She has had extensive testing done including an echocardiogram, thallium stress test, and Holter monitor. These are all negative. I encouraged her to follow-up with pulmonary. She remains fairly upset that she has had to wait so long for a pulmonary appointment. Abdominal bloating 11/18/2017 Overview: Added automatically from request for surgery [id number] Gastroesophageal reflux disease 11/18/2017 Overview: Added automatically from request for surgery [id number] Diarrhea 11/18/2017 Overview: Added automatically from request for surgery [id number] Incomplete bladder emptying 05/06/2017 Overview: - Increased [...] mass 05/30/2015 Bloating 05/02/2015 Pain, neuropathic 12/21/2013 Last Assessment & Plan: Mrs. Kelley has a lot of nonspecific complaints of pain, dizziness, gait instability, and weakness of her extremities. She is wondering if they might be due to her Chiari malformation. I encouraged her to follow-up with neurology. 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 Luna) 07/30/2018 Telephone Neurology Sudhakar Yates MD Erroneous encounter-disregard 07/23/2018 Telephone Gastroenterology Stefanie Milton MD Jandali, Badr Shortness of breath (Primary Dx); GRACE (obstructive sleep apnea) 07/22/2018 Office Visit Pulmonology Chetan Hunter MD 07/22/2018 Hospital Encounter Chetan Hunter MD 07/22/2018 Hospital Radiology Encounter Stefanie Milton MD Cardiac Eval (shortness of breath and palpitations F/U) 06/24/2018 Office Visit Cardiology from Last 3 Months Family History Medical [...] 36) Son Alive Son Alive Social History Date Tobacco Use Types Packs/Day Years Used Quit: 05/17/1972 Former Smoker Cigarettes 0.25 1 Smokeless Tobacco: Never Used Tobacco Cessation: Counseling Given: Yes Alcohol Use Drinks/Week oz/Week Comments Yes 0 Standard 0.0 ~1x/mo drinks or equivalent Sex Assigned at Date Recorded Not on file Industry Job Start Date Occupation Not on file Not on file Not on file Travel End Travel History Travel Start No recent travel history available. Last Filed Vital Signs Time Taken Vital Sign Reading 07/22/2018 12:50 PM TRANSMITTER CHIEF Blood Pressure 131/76 07/22/2018 12:50 PM TRANSMITTER CHIEF Pulse 76 07/22/2018 12:50 PM TRANSMITTER CHIEF Temperature 36.7 C (98 F) 07/22/2018 12:50 PM TRANSMITTER CHIEF Respiratory Rate 16 07/22/2018 12:50 PM TRANSMITTER CHIEF Oxygen Saturation 96% - Inhaled Oxygen - Concentration 07/22/2018 12:50 PM TRANSMITTER CHIEF Weight 105.2 kg (232 lb) 07/22/2018 12:50 PM TRANSMITTER CHIEF Height 167 cm (5' 5.75") 07/22/2018 12:50 PM TRANSMITTER CHIEF Body Mass Index 37.73 Plan of Treatment Health Maintenance Due Date Last Done Comments HEPATITIS C SCREENING 1952 DTAP/TDAP VACCINES (1 - 1970 Tdap) SHINGLES RECOMBINANT 2002 VACCINE (1 of 2) BREAST CANCER SCREENING 07/09/2013 07/09/2012 (Previously completed) PHYSICAL (COMPREHENSIVE) 07/09/2013 07/09/2012 (Previously completed) EXAM OSTEOPOROSIS 2017 SCREENING/MONITORING PNEUMONIA (PCV13/PPSV23) 2017 VACCINES (1 of 2 - PCV13) INFLUENZA VACCINE 03/25/2018 07/17/2013, 12/15/2012 (Declined) COLORECTAL CANCER 09/27/2025 09/27/2015, 09/27/2015 SCREENING Implants Device Identifier Shelf Expiration Date Model / Serial / Lot Implanted Type Area Manufactur er 10/22/2017 [id number] / [id number] / [id number] Cement Bone Smartset Gentamicin Right: Knee J and J 40gm High Viscosity [employer] Implanted: Qty: 2 on 01/25/2016 by : Maricel Mandujano MD SPINE 11/22/2025 [id number] / [id number] / [id number] Tray Tibial Sigma 2.5 Knee Cocr Right: Knee JandJ:DEPU Cemented Modular Y:DEPUY Implanted: Qty: 1 on 01/25/2016 by Maricel Franco MD 11/22/2020 [id number] / [id number] / [id number] Dome Patellar 38mm Pfc Sigma Small Right: Knee JandJ:DEPU Oval Knee Uhmwpe 3 Peg Y:DEPUY Implanted: Qty: 1 on 01/25/2016 by Maricel Franco MD 08/24/2025 [id number] / [id number] / [id number] Component Femoral 2.5 Knee Right Right: Knee JandJ:DEPU Cemented Posterior Y:DEPUY Implanted: Qty: 1 on 01/25/2016 by Maricel Franco MD 07/24/2020 [id number] / [id number] / [id number] Insert Tibial 2.5 10mm Knee Gvf Right: Knee JandJ:DEPU Stabilize Sigma Y:DEPUY Implanted: Qty: 1 on 01/25/2016 by ORTHOPEDIC Maricel Albrecht MD Procedures Comments Procedure Name Priority Date/Time Associated Diagnosis CT CHEST WO CONTRAST Routine 08/13/2018 Shortness of breath 12:52 PM TRANSMITTER CHIEF SLE POLYSOMNOGRAPHY 4 OR Routine 08/11/2018 Obstructive sleep apnea MORE PARAMETERS 8:10 AM TRANSMITTER CHIEF (adult) (pediatric) SLEEP STUDY-SCAN 08/10/2018 12:00 AM TRANSMITTER CHIEF PFT COMPLETE PULM Routine 07/22/2018 Shortness of breath FUNCTION 10:53 AM TRANSMITTER CHIEF CHEST 2 VIEWS Routine 07/22/2018 SOB (shortness of breath) 10:36 AM TRANSMITTER CHIEF from Last 3 Months Results * CT CHEST WO CONTRAST (08/13/2018 12:52 PM TRANSMITTER CHIEF) Impressions Performed At 1. No significant pulmonary fibrosis. [facility] RES[facility] 2. There are several tiny calcified and noncalcified nodules which are stable and most likely represent granulomas. If there are no significant risk factors for pulmonary malignancy, no further follow-up of these nodules is required. 3. Moderate diffuse fatty infiltration of the liver. 4. At least mild coronary artery calcification. Finalized by Balbir Laura M.D. on 08/13/2018 3:06 PM. Dictated by Balbir Laura M.D. on 08/13/2018 2:32 PM. Narrative Performed At CT Chest [facility] RES[facility] Clinical Indication: Dyspnea on exertion. Technique: Multiple contiguous axial CT images were obtained through the chest without IV contrast.Post processing coronal and sagittal reconstruction images were made from the axial images.Additional high-resolution inspiration and expiration images were obtained. Comparison: October 26, [address] Findings: There is a left subclavian line in place with the tip in the upper right atrium. Axilla, Mediastinum and Toma: No lymphadenopathy. Heart and Great Vessels: The heart size is normal. There is no pericardial effusion. There is at least mild coronary artery calcification. Lungs and Pleura: A tiny nodule in the posterior right upper lobe is unchanged measuring 0.4 cm on series 2, image 15. 2 tiny calcified granulomas are also noted in the right lung. A tiny noncalcified nodule is stable in the left lower lobe on image 57. There is mild air trapping in the dependent lower lungs, within physiologic normal limits. There is no significant bronchiectasis or fibrosis. Minor scarring is seen in the lung bases. No pleural effusions. Chest Wall and Osseous Structures: No destructive osseous lesions. Visualized Upper Abdomen: There is moderate diffuse fatty infiltration of the liver. Procedure Note Interface, Radiant Results - 08/13/2018 3:[address] Chest Clinical Indication: Dyspnea on exertion. Technique: Multiple contiguous axial CT images were obtained through the chest without IV contrast. Post processing coronal and sagittal reconstruction images were made from the axial images. Additional high-resolution inspiration and expiration images were obtained. Comparison: October 26, [address] Findings: There is a left subclavian line in place with the tip in the upper right atrium. Axilla, Mediastinum and Toma: No lymphadenopathy. Heart and Great Vessels: The heart size is normal. There is no pericardial effusion. There is at least mild coronary artery calcification. Lungs and Pleura: A tiny nodule in the posterior right upper lobe is unchanged measuring 0.4 cm on series 2, image 15. 2 tiny calcified granulomas are also noted in the right lung. A tiny noncalcified nodule is stable in the left lower lobe on image 57. There is mild air trapping in the dependent lower lungs, within physiologic normal limits. There is no significant bronchiectasis or fibrosis. Minor scarring is seen in the lung bases. No pleural effusions. Chest Wall and Osseous Structures: No destructive osseous lesions. Visualized Upper Abdomen: There is moderate diffuse fatty infiltration of the liver. IMPRESSION 1. No significant pulmonary fibrosis. 2. There are several tiny calcified and noncalcified nodules which are stable and most likely represent granulomas. If there are no significant risk factors for pulmonary malignancy, no further follow-up of these nodules is required. 3. Moderate diffuse fatty infiltration of the liver. 4. At least mild coronary artery calcification. Finalized by Balbir Laura M.D. on 08/13/2018 3:06 PM. Dictated by Balbir Laura M.D. on 08/13/2018 2:32 PM. Performing Organization Address City/State/Zipcode Phone Number RAD RESULTS * SLEEP STUDY-SCAN (08/10/2018 12:00 AM TRANSMITTER CHIEF) Narrative Performed At Ordered by an unspecified provider. * PFT COMPLETE PULM FUNCTION (07/22/2018 10:53 AM TRANSMITTER CHIEF) FVC-Pre 2.15 L [facility] FVC-%Pred-pre 64 % [facility] FEV1-Pre 1.89 L [facility] FEV1-%Pred-Pre 73 % [facility] FEV1/FVC-Pre 88 % [facility] [id number] 67 % [facility] [id number] 3.03 L/sec [facility] NBY1581-%Pred-Pre 139 % [facility] RVPleth-Pre 1.71 L [facility] RVPleth-%Pred-Pre 77 % [facility] TLCPleth-Pre 4.28 L [facility] TLCPleth-%Pred-Pre 80 % [facility] DLCOunc-Pre 21.02 ml/min/mmHg [facility] DLCOunc-%Pred-Pre 97 % [facility] DLCOunc-#SD -0.167 ml/min/mmHg [facility] DLVA-Pred 4.26 ml/min/mmHg/L [facility] DLVA-Pre 5.48 ml/min/mmHg/L [facility] DLVA-%Pred-Pre 128 % [facility] DLVA-SD 0.80 ml/min/mmHg/L [facility] DLVA-LLN 2.66 ml/min/mmHg/L [facility] DLVA-ULN 5.86 ml/min/mmHg/L [facility] DLVA-#SD 1.526 ml/min/mmHg/L [facility] [id number] 71 % [facility] Performing Organization Address City/State/Zipcode Phone Number [facility] [address] [place] [address] * CHEST 2 VIEWS (07/22/2018 10:36 AM TRANSMITTER CHIEF) Impressions Performed At Stable chest radiograph with no acute cardiopulmonary abnormality. [facility] RESULTS Approved by Maurice Martinez MD on 07/22/2018 11:33 AM By my electronic signature, I attest that I have personally reviewed the images for this examination and formulated the interpretations and opinions expressed in this report Finalized by Michele Hazel M.D. on 07/22/2018 11:52 AM. Dictated by Maurice Martinez MD on 07/22/2018 10:37 AM. Narrative Performed At CHEST 2 VIEWS [facility] RES[facility] History:68-year-old female with shortness of breath Comparison: CTA chest 10/26/2017 and chest 2 views 10/26/2017. Findings: Left chest port with tip in unchanged position. The cardiac silhouette is within normal limits of size. There is no pulmonary vascular congestion. No pneumothorax, consolidating pneumonia or pleural effusion is identified. Procedure Note Interface, Radiant Results - 07/22/2018 11:55 AM TRANSMITTER CHIEF CHEST 2 VIEWS History: 68-year-old female with shortness of breath Comparison: CTA chest 10/26/2017 and chest 2 views 10/26/2017. Findings: Left chest port with tip in unchanged position. The cardiac silhouette is within normal limits of size. There is no pulmonary vascular congestion. No pneumothorax, consolidating pneumonia or pleural effusion is identified. IMPRESSION Stable chest radiograph with no acute cardiopulmonary abnormality. Approved by Maurice Martinez MD on 07/22/2018 11:33 AM By my electronic signature, I attest that I have personally reviewed the images for this examination and formulated the interpretations and opinions expressed in this report Finalized by Michele Hazel M.D. on 07/22/2018 11:52 AM. Dictated by Maurice Martinez MD on 07/22/2018 10:37 AM. Performing Organization Address City/State/Zipcode Phone Number [facility] RESULTS from Last 3 Months Insurance Payer Benefit Subscriber ID Type Phone Address Plan / Group MEDICARE MEDICARE xxxxxxxxxxx Medicare PART A AND B CIGNA CIGNA xxxxxxxxxx Medicare MEDICARE SUPPLEMENT Advance Directives Patient has advance care planning documents, and code status on file. For more information, please contact: [facility] [address] [place] [address] [place] [address] Date Inactivated Comments Code Status Date Activated 02/02/2016 6:14 PM Full Code 01/28/2016 12:22 PM Provider has discussed Code Status Yes w/Patient or Family? 01/28/2016 12:22 PM Full Code 01/25/2016 5:54 PM Provider has discussed Code Status No, discussion not w/Patient or Family? necessary based on Dx 11/26/2013 2:52 PM Full Code 11/22/2013 2:18 PM Provider has discussed Code Status Yes w/Patient or Family? 01/03/2013 5:10 AM Full Code 01/01/2013 2:39 PM Provider has discussed Code Status No, discussion not w/Patient or Family? necessary based on Dx 12/05/2012 8:34 PM Full Code 11/24/2012 8:08 PM Provider has discussed Code Status No, more discussion w/Patient or Family? needed
--- OUTSIDE RECORDS SUMMARY | 2018-08-17 12:48 | XMS REPORT | Encounter Summary ---
Author Author [facility] Organization [facility] Address Unknown Phone Unavailable Care Team Providers Care Curb Setter Name Role Phone Judah Lopez RN Unavailable Unavailable Brett Alcantar MD Unavailable Kumar Diggs MD Unavailable Doctor, Miscellaneous Unavailable Unavailable Barbara Pelaez MD Unavailable Adolfo Cardenas MD PCP Fausto Hsu Unavailable Unavailable Nallely Gomez MD Unavailable Silvano Potts MD Unavailable Sarwat Lozano APRN Unavailable Unavailable Aileen Jacobson MD Unavailable Unavailable Leonid Santos MD Unavailable Unavailable Danitza Rios MA,CCC-ELECTRICIAN SUBSTATION Unavailable Unavailable Gela Cleary RN Unavailable Unavailable Hossein Minaya MD Unavailable Deonna Cunningham RN Unavailable Unavailable Anila Valencia RN Unavailable Unavailable Daniel Bond RN Unavailable Unavailable Yolette Moore MA,CCC-ELECTRICIAN SUBSTATION Unavailable Unavailable Bryan Romero Unavailable Unavailable Nallely Tracy MA,CCC-ELECTRICIAN SUBSTATION Unavailable Unavailable Haresh Kathleen MD Unavailable Teetee Taylor RN Unavailable Unavailable Bonnie Goss RN Unavailable Unavailable Maricel Albrecht MD Unavailable Kiarra Patrick RN Unavailable Unavailable Evelio Chris RN 2 Unavailable Todd Avendano MD Unavailable Tatiana Tim PA-C Unavailable Reason for Referral * Radiology Services (Routine) Referred By Contact Referred To Contact Status Reason Specialty Diagnoses / Procedures Elder Thompson MD [address] [facility] [address] [place] [address] [address] [place] [address] No Auth Needed Radiology Diagnoses Shortness of breath P rocedures CT CHEST WO CONTRAST * Radiology Services (Routine) Referred By Contact Referred To Contact Status Reason Specialty Diagnoses / Procedures Elder Thompson MD [address] [facility] [address] [place] [id number] [address] [place] [address] No Auth Needed Radiology Diagnoses Shortness of breath P rocedures CT CHEST WO CONTRAST Reason for Visit * Radiology Services (Routine) Referred By Contact Referred To Contact Status Reason Specialty Diagnoses / Procedures Elder Thompson MD [address] [facility] [address] [place] [address] [address] [place] [address] No Auth Needed Radiology Diagnoses Shortness of breath P rocedures CT CHEST WO CONTRAST Encounter Details Care Team Description Date Type Department Elder Thompson MD [address] [facility] [address] [place] [address] [phone] Arrived 08/13/2018 Hospital [facility] Encounter [facility] [address] [place] [address] Social History Date Tobacco Use Types Packs/Day Years Used Quit: 05/17/1972 Former Smoker Cigarettes 0.25 1 Smokeless Tobacco: Never Used Alcohol Use Drinks/Week oz/Week Comments Yes 0 Standard 0.0 ~1x/mo drinks or equivalent Sex Assigned at Date Recorded Not on file Industry Job Start Date Occupation Not on file Not on file Not on file Travel End Travel History Travel Start No recent travel history available. as of this encounter Functional Status Date of Assessment Functional Status Response 10/26/2017 Does the patient have a hearing impairment: No 02/18/2017 Does the patient have a visual impairment: Yes 02/18/2017 Does the patient have impaired ambulation: Yes 02/18/2017 Does the patient have an activity of daily living No (ADL) impairment: 02/18/2017 Does the patient have an instrumental activity of No daily living (IADL) impairment: Date of Assessment Cognitive Status Response 02/18/2017 Does the patient have a cognitive impairment: No as of this encounter Plan of Treatment Not on fileas of this encounter Procedures Comments Procedure Name Priority Date/Time Associated Diagnosis CT CHEST WO CONTRAST Routine 08/13/2018 Shortness of breath 12:52 PM SEWING MACHINE REPAIRER in this encounter Results * CT CHEST WO CONTRAST (08/13/2018 12:52 PM SEWING MACHINE REPAIRER) Impressions Performed At 1. No significant pulmonary [...] Interface, Radiant Results - 08/13/2018 3:09 PM SEWING MACHINE REPAIRER CT Chest Clinical Indication: Dyspnea on exertion. [...] PM. Performing Organization Address City/State/Zipcode Phone Number [facility] RESULTS in this encounter Visit Diagnoses Diagnosis Shortness of breath in this encounter
--- OUTSIDE RECORDS SUMMARY | 2018-08-17 12:48 | XMS REPORT | Clinical Summary ---
Author Author [facility] Organization [facility] Address Unknown Phone Unavailable Care Team Providers Care Plastic Jig And Fixture Builder Name Role Phone Adolfo Cardenas MD PCP [...] Overview: Added automatically from request for surgery [id number] Gastroesophageal reflux disease 11/18/2017 Overview: Overview: Added automatically from request for surgery [id number] Hepatic steatosis 10/30/2017 Overview: Overview: Identified on CT at [facility] on 10/26/2017 L ast Assessment & Plan: Identified on CT at [facility] 10/26/17, LFTs normal on admission - [...] report, no home meds F/u endo outpatient Social History Tobacco Use Types Packs/Day Years [...] 03/27/2018 Fall Risk Assessment # 03/30/2019 03/30/2018 Results Not on filefrom Last 3 Months
--- OUTSIDE RECORDS SUMMARY | 2018-08-17 12:49 | XMS REPORT | Encounter Summary ---
Author Author [facility] Organization [facility] Address Unknown Phone Unavailable Care Team Providers Care Photovoltaic Fabrication Technician Name Role Phone Judah Lopez RN Unavailable Unavailable Brett Alcantar MD Unavailable Kumar Diggs MD Unavailable Doctor, Miscellaneous Unavailable Unavailable Barbara Pelaez MD Unavailable Adolfo Cardenas MD PCP Fausto Hsu Unavailable Unavailable Nallely Gomez MD Unavailable Silvano Potts MD Unavailable Sarwat Lozano APRN Unavailable Unavailable Aileen Jacobson MD Unavailable Unavailable Leonid Santos MD Unavailable Unavailable Danitza Rios MA,CCC-HELIOTHERAPIST Unavailable Unavailable Gela Cleary RN Unavailable Unavailable Hossein Minaya MD Unavailable Deonna Cunningham RN Unavailable Unavailable Anila Valencia RN Unavailable Unavailable Daniel Bond RN Unavailable Unavailable Yolette Moore MA,CCC-HELIOTHERAPIST Unavailable Unavailable Bryan Romero Unavailable Unavailable Nallely Tracy MA,CCC-HELIOTHERAPIST Unavailable Unavailable Haresh Kathleen MD Unavailable Teetee Taylor RN Unavailable Unavailable Bonnie Goss RN Unavailable Unavailable Maricel Albrecht MD Unavailable Kiarra Patrick RN Unavailable Unavailable Evelio Chris RN 2 Unavailable Todd Avendano MD Unavailable Tatiana Tim PA-C Unavailable Reason for Visit * Reason Comments Erroneous encounter-disregard Encounter Details Care Team Description Date Type Department Sudhakar Yates MD [address] [place] [address] Erroneous encounter-disregard 07/23/2018 Telephone [facility] [address] [place] [address] Social History Date Tobacco Use Types Packs/Day [...]
--- OUTSIDE RECORDS SUMMARY | 2018-08-17 12:49 | XMS REPORT | Encounter Summary ---
Author Author [facility] Address Unknown Phone Unavailable Care Team Providers Care Director [employer] Name Role Phone Judah Lopez RN Unavailable Unavailable Brett Alcantar MD Unavailable Kumar Diggs MD Unavailable Doctor, Miscellaneous Unavailable Unavailable Barbara Pelaez MD Unavailable Adolfo Cardenas MD PCP Fausto Hsu Unavailable Unavailable Nallely Gomez MD Unavailable Silvano Potts MD Unavailable Sarwat Lozano APRN Unavailable Unavailable Aileen Jacobson MD Unavailable Unavailable Leonid Santos MD Unavailable Unavailable Danitza Rios MA,CCC-DEMAND GENERATION MANAGER Unavailable Unavailable Gela Cleary RN Unavailable Unavailable Hossein Minaya MD Unavailable Deonna Cunningham RN Unavailable Unavailable Anila Valencia RN Unavailable Unavailable Daniel Bond RN Unavailable Unavailable Yolette Moore MA,CCC-DEMAND GENERATION MANAGER Unavailable Unavailable Bryan Romero Unavailable Unavailable Nallely Tracy MA,CCC-DEMAND GENERATION MANAGER Unavailable Unavailable Haresh Kathleen MD Unavailable Teetee Taylor RN Unavailable Unavailable Bonnie Goss RN Unavailable Unavailable Maricel Albrecht MD Unavailable Kiarra Patrick RN Unavailable Unavailable Evelio Chris RN 2 Unavailable Todd Avendano MD Unavailable aTtiana Tim PA-C Unavailable Reason for Referral * Consult, Test & Treat (Routine) Referred By Contact Referred To Contact Status Reason Specialty Diagnoses / Procedures Karyn Souza MD [address] [facility] [address] [place] [address] [facility] [address] [place] [address] New Request Specialty Services Diagnoses Required Shortness of breath * Consult, Test & Treat (Routine) Referred By Contact Referred To Contact Status Reason Specialty Diagnoses / Procedures Karyn Souza MD [address] [facility] [address] [place] [address] [facility] - [facility] [address] [place] [address] No Auth Needed Specialty Services Sleep Center Diagnoses Required GRACE (obstructive sleep apnea) Scheduling Instructions Neck circumference may be a required measurement for sleep study prior authorization and/or claim payment. Has neck circumference been obtained? no * Radiology Services (Routine) Referred By Contact Referred To Contact Status Reason Specialty Diagnoses / Procedures Karyn Souza MD [address] [facility] [address] [place] [address] [place] [address] No Auth Needed Radiology Diagnoses Shortness of breath P rocedures CT CHEST WO CONTRAST Reason for Visit * Reason Comments Shortness of Breath * Consult, Test & Treat Referred By Contact Referred To Contact Status Reason Specialty Diagnoses / Procedures Stefanie Milton MD [address] [facility] [address] [place] [address] [facility] Pulmonary [facility] Level 5A [address] [place] [address] New Request Specialty Services Pulmonology Diagnoses Required SOB (shortness of breath) Encounter Details Care Team Description Date Type Department Stefanie Milton MD [address] [facility] [address] [place] [address] Melba Fraire Shortness of breath (Primary Dx); GRACE (obstructive sleep apnea) 07/22/2018 Office Visit [facility] - Internal Medicine [facility] Level 5A [address] [place] [address] Social History Date Tobacco Use [...] travel history available. as of this encounter Last Filed Vital Signs Time Taken Vital Sign Reading 07/22/2018 12:50 PM RESIDENTIAL ASSISTANT Blood Pressure 131/76 07/22/2018 12:50 PM RESIDENTIAL ASSISTANT Pulse 76 07/22/2018 12:50 PM RESIDENTIAL ASSISTANT Temperature 36.7 C (98 F) 07/22/2018 12:50 PM RESIDENTIAL ASSISTANT Respiratory Rate 16 07/22/2018 12:50 PM RESIDENTIAL ASSISTANT Oxygen Saturation 96% - Inhaled Oxygen - Concentration 07/22/2018 12:50 PM RESIDENTIAL ASSISTANT Weight 105.2 kg (232 lb) 07/22/2018 12:50 PM RESIDENTIAL ASSISTANT Height 167 cm (5' 5.75") 07/22/2018 12:50 PM RESIDENTIAL ASSISTANT Body Mass Index 37.73 in this encounter Functional Status Date of Assessment [...] cognitive impairment: No as of this encounter Patient Instructions * Patient Instructions* Melba Fraire - 07/22/2018 1:15 PM RESIDENTIAL ASSISTANT We will check a CT chest and do another lung function test to check for asthma DENTIAL ASSISTANT in this encounter Progress Notes * Melba Fraire - 07/22/2018 1:15 PM RESIDENTIAL ASSISTANT Date of Service: 07/22/2018 Subjective: Micki Kelley is a 68 y.o. female. Is here for an initial visit to evaluate shortness of breath History of Present IllnessMrs.Allie is a 68 YOF who is here for evaluation of SOB. Patient was referred to us from cardiology. Her problems with dyspnea started 2-3 years ago gradually, but since October 2017 she has noticed worsening to the degree that it's affecting her quality of life. She ER visit for SOB and palpitations at that time and was told to see a resident care manager rn. She had a She was evaluated with a CT scan that was reported to have bronchiolitis and was also referred to cardiology for evaluation of her palpitations. Her cardiac work up has been negative so far, she had a normal echocardiogram, normal stress test and normal holter monitor. She reports constant shortness of breath with any movement, even with talking and overall generalized fatigue. She has been using her CPAP during the day and that seems to have helped. Patient was prescribed an albuterol inhaler and she gets good response with it. She denies any other allergic symptoms, seasonal changes or childhood asthma She reports about 20lbs weight gain over the past year due to her right knee replacement malfunction. No pets at home Review of Systems Constitutional: Positive for activity change, diaphoresis and fatigue. HENT: Positive for congestion, postnasal drip, sneezing, tinnitus and voice change. Eyes: Negative for photophobia, pain and redness. Respiratory: Positive for shortness of breath and wheezing. Cardiovascular: Negative for chest pain and leg swelling. Gastrointestinal: Negative for blood in stool, nausea and vomiting. Endocrine: Positive for polyphagia. Genitourinary: Positive for urgency. Musculoskeletal: Positive for back pain and joint swelling. Neurological: Positive for dizziness and light-headedness. Objective: acyclovir (ZOVIRAX) 200 mg capsule Take 1 [...] mg by mouth at bedtime as needed. There were no vitals filed for this visit. There is no height or weight on file to calculate BMI. Physical Exam Constitutional: She is oriented to person, place, and time. She appears well- developed. No distress. HENT: Head: Normocephalic. Right Ear: External ear normal. Left Ear: External ear normal. Mouth/Throat: Oropharynx is clear and moist. No oropharyngeal exudate. Eyes: Conjunctivae and EOM are normal. Right eye exhibits no discharge. Left eye exhibits no discharge. Neck: Neck supple. No tracheal deviation present. Cardiovascular: Normal rate, regular rhythm and normal heart sounds. No murmur heard. Pulmonary/Chest: Effort normal and breath sounds normal. No respiratory distress. She has no wheezes. She has no rales. She exhibits no tenderness. Abdominal: Soft. Bowel sounds are normal. She exhibits no distension. There is no tenderness. Musculoskeletal: She exhibits no edema. Lymphadenopathy: She has no cervical adenopathy. Neurological: She is alert and oriented to person, place, and time. Skin: No rash noted. She is not diaphoretic. Psychiatric: She has a normal mood and affect. Her behavior is normal. Echo 03/2018: Interpretation Summary 1. No regional wall motion abnormalities are [...] exam. 6. No pericardial effusion is seen. CT chest 10/2017 IMPRESSION 1. No CTA evidence of pulmonary embolism. 2. Mild cardiomegaly without CHF or pneumonia. 3. Mild bilateral peribronchial thickening and areas of mild mosaic attenuation in the bilateral upper and lower lungs, likely accentuated by lower lung volumes/expiratory imaging. This likely reflects small airways disease such is bronchiolitis. No focal pneumonia. 4. 4 mm noncalcified nodular opacity at the posterior right upper lobe. This is nonspecific though requires no further follow-up in a patient considered low risk for malignancy per Fleischner Society guidelines. If patient is considered high risk for malignancy, follow-up CT in one year is recommended. 5. Marked diffuse hepatic steatosis. Assessment and Plan: - Dyspnea - GRACE The etiology of her dyspnea is not entirely clear. The symptoms don't fit a certain single diagnosis. However, she reports wheezing and improvement with albuterol. This raises the possibility of undiagnosed asthma. She has no eosinophilia or other allergic symptoms. Her PFTs were essentially normal except low FEV1 and FVC with normal DLCO and TLC. Her CT from October did show some mosaic changes, however, this could be related to poor inspiratory effort with her body habitus. She also reports generalized fatigue and improvement with CPAP. Undertreated GRACE could definitely be contributing to her symptoms especially with her weight gain. Her last sleep study is not available and goes back at least to 2008. Patient also has documented vocal cord problems and edema along with laryngopharyngeal reflux that could be contributing. We will start with empiric trial treatment of asthma with a combination LABA- ICS given severity of her symptoms. We will refer for a methacholine challenge to help answer the question of undiagnosed asthma. To better evaluate her mosaic changes, we will obtain a high res CT with inspiratory and expiratory images. And she definitely needs a referral for a repeat sleep study to better obtain a good sense of how much undertreated GRACE is playing a role into this. - Trial of low dose Breo - Methacholine challenge test - High res CT scan with inspiratory and expiratory images - Sleep study Patient was seen and discussed with . ATTESTATION I personally performed the azul portions of the E/M visit, discussed case with the fellow and concur with the documentation of history, physical exam, assessment, and treatment plan unless otherwise noted. Pt with intermitent dyspnea, obesity and subjective improvement with albuterol PRN. Will start controller therapy and obtain methacholine challenge. Pt also with subtle abnormalities on CT chest from October - suggest repeat with high res and inspiratory / expiratory images. Pt with GRACE and prolonged time (and weight gain) since original test -- now with daytime somnolence and falling asleep during the interview. Plan to repeat PSG and update settings for CPAP. Staff name: Karyn Souza MD DENTIAL ASSISTANT in this encounter Miscellaneous Notes * Addendum Note - Karyn Souza MD - 07/22/2018 1:15 PM RESIDENTIAL ASSISTANT Addended by: KARYN SOUZA on: 07/22/2018 03:28 PM Modules accepted: Level of Service DENTIAL ASSISTANT * Addendum Note - Melba Fraire - 07/22/2018 1:15 PM RESIDENTIAL ASSISTANT Addended by: MELBA FRAIRE on: 07/22/2018 02:23 PM Modules accepted: Orders DENTIAL ASSISTANT in this encounter Plan of Treatment Order Schedule Name Priority Associated Diagnoses Ordered: 07/22/2018 PFT METHACHOLINE CHALLENGE Routine Shortness of breath Order Schedule Name Priority Associated Diagnoses Ordered: 07/22/2018 AMB REFERRAL FOR SLEEP STUDIES Routine GRACE (obstructive sleep apnea) Ordered: 07/22/2018 AMB REFERRAL TO PULMONARY FUNCTION LAB Routine Shortness of breath as of this encounter Results * CT CHEST WO CONTRAST (08/13/2018 12:52 PM RESIDENTIAL ASSISTANT) Impressions Performed At 1. No significant pulmonary [...] Interface, Radiant Results - 08/13/2018 3:[address] Chest Clinical Indication: Dyspnea on exertion. [...] encounter Visit Diagnoses Diagnosis Shortness of breath - Primary GRACE (obstructive sleep apnea) Obstructive sleep apnea (adult) (pediatric) in this encounter
--- OUTSIDE RECORDS SUMMARY | 2018-08-17 12:49 | XMS REPORT | Encounter Summary ---
Author Author [facility] Organization [facility] Address Unknown Phone Unavailable Care Team Providers Care Facility Coordinator Name Role Phone Judah Lopez RN Unavailable Unavailable Brett Alcantar MD Unavailable Kumar Diggs MD Unavailable Doctor, Miscellaneous Unavailable Unavailable Barbara Pelaez MD Unavailable Adolfo Cardenas MD PCP Fausto Hsu Unavailable Unavailable Nallely Gomez MD Unavailable Silvano Potts MD Unavailable Sarwat Lozano APRN Unavailable Unavailable Aileen Jacobson MD Unavailable Unavailable Leonid Santos MD Unavailable Unavailable Danitza Rios MA,CCC-GAMBLING CASHIER Unavailable Unavailable Gela Cleary RN Unavailable Unavailable Hossein Minaya MD Unavailable Deonna Cunningham RN Unavailable Unavailable Anila Valencia RN Unavailable Unavailable Daniel Bond RN Unavailable Unavailable Yolette Moore MA,CCC-GAMBLING CASHIER Unavailable Unavailable Bryan Romero Unavailable Unavailable Nallely Tracy MA,CCC-GAMBLING CASHIER Unavailable Unavailable Haresh Kathleen MD Unavailable Teetee Taylor RN Unavailable Unavailable Bonnie Goss RN Unavailable Unavailable Maricel Albrecht MD Unavailable Kiarra Patrick RN Unavailable Unavailable Evelio Chris RN 2 Unavailable Todd Avendano MD Unavailable Tatiana Tim PA-C Unavailable Reason for Visit * Consult, Test & Treat (Routine) Referred By Contact Referred To Contact Status Reason Specialty Diagnoses / Procedures Elder Thompson MD [address] [facility] [address] [place] [address] Rb - [facility] [address] [place] [address] No Auth Needed Specialty Services Sleep Center Diagnoses Required GRACE (obstructive sleep apnea) Encounter Details Care Team Description Date Type Department Elder Thompson MD [address] [facility] [address] [place], [place] [id number] Obstructive sleep apnea (adult) (pediatric) 08/10/2018 [facility] Sleep Disorder Encounter [facility] [address] [place] [address] Social History Date Tobacco Use Types Packs/Day [...] cognitive impairment: No as of this encounter Medications at Time of Discharge Start Date End Date Medication Sig Dispensed Refills 02/02/2016 acyclovir (ZOVIRAX) 200 Take 1 Cap by 30 Cap 1 mg capsule mouth daily. albuterol (PROAIR HFA, Inhale 2 0 VENTOLIN HFA, OR puffs by PROVENTIL HFA) 90 mouth into mcg/actuation inhaler the lungs every 6 hours as needed for Wheezing or Shortness of Breath. Shake well before use. aspirin 325 mg tablet Take 325 mg 0 by mouth daily. Take with food. citalopram (CELEXA) 10 mg Take 10 mg by 0 tablet mouth daily. 11/17/2017 diphenoxylate/atropine Take 1 tablet 30 tablet 1 (LOMOTIL) 2.5/0.025 mg by mouth four tablet times daily as needed for Diarrhea. 05/05/2017 estradiol (ESTRACE) 0.01 Insert or 42.5 g 11 % (0.1 mg/g) vaginal Apply to creamIndications: Urinary vaginal area retention three times weekly. Apply at bedtime. 07/22/2018 fluticasone-vilanterol(+) Inhale one 1 Inhaler 11 (BREO ELLIPTA) 100-25 mcg puff by mouth inhalation disk into the lungs daily. gabapentin (NEURONTIN) Take 600 mg 0 600 mg tablet by mouth daily. magnesium marcella/aluminum Take 1 Tab by 0 hydroxide(+) (GAVISCON) mouth at 20/80 mg chew bedtime daily. 02/02/2016 metFORMIN (GLUCOPHAGE) Take 1 Tab by 60 Tab 1 500 mg tablet mouth twice daily with meals. 03/10/2018 mirabegron(+) ER Take 1 tablet 30 tablet 11 (MYRBETRIQ) 50 mg by mouth tabletIndications: daily. Incomplete bladder emptying ondansetron (ZOFRAN) 4 mg Take 4 mg by 0 tablet mouth every 8 hours as needed for Nausea or Vomiting. 11/17/[address] Take 1 tablet 30 tablet 3 (PROTONIX) 40 mg tablet by mouth daily. 02/02/2016 pramipexole (MIRAPEX) Take 1 Tab by 60 Tab 1 0.125 mg tablet mouth twice daily. simvastatin (ZOCOR) 40 mg Take 40 mg by 0 tablet mouth at bedtime daily. zolpidem CR(+) (AMBIEN Take 12.5 mg 0 CR) 12.5 mg tablet by mouth at bedtime as needed. as of this encounter Plan of Treatment Not on fileas of this encounter Procedures Comments Procedure Name Priority Date/Time Associated Diagnosis SLE POLYSOMNOGRAPHY 4 OR Routine 08/11/2018 Obstructive sleep apnea MORE PARAMETERS 8:10 AM TECHNICAL SUPPORT ANALYST (adult) (pediatric) SLEEP STUDY-SCAN 08/10/2018 12:00 AM TECHNICAL SUPPORT ANALYST in this encounter Results * SLEEP STUDY-SCAN (08/10/2018 12:00 AM TECHNICAL SUPPORT ANALYST) Narrative Performed At Ordered by an unspecified provider. in this encounter Visit Diagnoses Diagnosis Obstructive sleep apnea (adult) (pediatric) - Primary in this encounter
--- OUTSIDE RECORDS SUMMARY | 2018-08-17 12:49 | XMS REPORT | Encounter Summary ---
Author Author [facility] Organization [facility] Address Unknown Phone Unavailable Care Team Providers Care Pricing Analyst Name Role Phone Judah Lopez RN Unavailable Unavailable Brett Alcantar MD Unavailable Kumar Diggs MD Unavailable Doctor, Miscellaneous Unavailable Unavailable Barbara Pelaez MD Unavailable Adolfo Cardenas MD PCP Fausto Hsu Unavailable Unavailable Nallely Gomez MD Unavailable Silvano Potts MD Unavailable Sarwat Lozano APRN Unavailable Unavailable Aileen Jacobson MD Unavailable Unavailable Leonid Santos MD Unavailable Unavailable Danitza Rios MA,CCC-NURSE CHARGE RN Unavailable Unavailable Gela Cleary RN Unavailable Unavailable Hossein Minaya MD Unavailable Deonna Cunningham RN Unavailable Unavailable Anila Valencia RN Unavailable Unavailable Daniel Bond RN Unavailable Unavailable Yolette Moore MA,CCC-NURSE CHARGE RN Unavailable Unavailable Bryan Romero Unavailable Unavailable Nallely Tracy MA,CCC-NURSE CHARGE RN Unavailable Unavailable Haresh Kathleen MD Unavailable Teetee Taylor RN Unavailable Unavailable Bonnie Goss RN Unavailable Unavailable Maricel Albrecht MD Unavailable Kiarra Patrick RN Unavailable Unavailable Evelio Chris RN 2 Unavailable Todd Avendano MD Unavailable Tatiana Tim PA-C Unavailable Encounter Details Care Team Description Date Type Department Chetan Hunter MD [address] [facility] [address] [place], [place] [id number] 07/22/2018 [facility] Hospital Radiology [address] [facility] [address]LDG [address]ND FLOOR [place], [place] [id number] Social History Date Tobacco Use Types Packs/Day [...] 30 Cap 1 mg capsule mouth daily. aspirin 325 mg tablet Take [...] retention three times weekly. Apply at bedtime. gabapentin (NEURONTIN) Take 600 mg 0 600 [...] Comments Procedure Name Priority Date/Time Associated Diagnosis CHEST 2 VIEWS Routine 07/22/2018 SOB (shortness of breath) 10:36 AM LINK CUTTER in this encounter Results * CHEST 2 VIEWS (07/22/2018 10:36 AM LINK CUTTER) Impressions Performed At Stable chest radiograph with [...] Interface, Radiant Results - 07/22/2018 11:55 AM LINK CUTTER CHEST 2 VIEWS History: 68-year-old female with [...] RESULTS in this encounter Visit Diagnoses Diagnosis SOB (shortness of breath) Shortness of breath in this encounter
--- OUTSIDE RECORDS SUMMARY | 2018-08-17 12:49 | XMS REPORT | Encounter Summary ---
Author Author [facility] Organization [facility] Address Unknown Phone Unavailable Care Team Providers Care Foreign Exchange Dealer Name Role Phone Judah Lopez RN Unavailable Unavailable Brett Alcantar MD Unavailable Kumar Diggs MD Unavailable Doctor, Miscellaneous Unavailable Unavailable Barbara Pelaez MD Unavailable Adolfo Cardenas MD PCP Fausto Hsu Unavailable Unavailable Nallely Gomez MD Unavailable Silvano Potts MD Unavailable Sarwat Lozano APRN Unavailable Unavailable Aileen Jacobson MD Unavailable Unavailable Leonid Santos MD Unavailable Unavailable Danitza Rios MA,CCC-COMMERCIAL ACCOUNT OFFICER Unavailable Unavailable Gela Cleary RN Unavailable Unavailable Hossein Minaya MD Unavailable Deonna Cunningham RN Unavailable Unavailable Anila Valencia RN Unavailable Unavailable Daniel Bond RN Unavailable Unavailable Yolette Moore MA,CCC-COMMERCIAL ACCOUNT OFFICER Unavailable Unavailable Bryan Romero Unavailable Unavailable Nallely Tracy MA,CCC-COMMERCIAL ACCOUNT OFFICER Unavailable Unavailable Haresh Kathleen MD Unavailable Teetee Taylor RN Unavailable Unavailable Bonnie Goss RN Unavailable Unavailable Maricel Albrecht MD Unavailable Kiarra Patrick RN Unavailable Unavailable Evelio Chris RN 2 Unavailable Todd Avendano MD Unavailable Tatiana Tim PA-C Unavailable Reason for Visit * Consult, Test & Treat Referred By Contact Referred To Contact Status Reason Specialty Diagnoses / Procedures Chetan Hunter MD [address] [address] Pulmonary Function [facility] [address] [place] [address] New Request Specialty Services Diagnoses Required SOB (shortness of breath) Encounter Details Care Team Description Date Type Department Chetan Hunter MD [address] [address] [phone] 07/22/2018 [facility] Encounter [facility] Pulmonary Function [facility] [address] [place] [address] Social History Date Tobacco Use Types Packs/Day [...] Comments Procedure Name Priority Date/Time Associated Diagnosis PFT COMPLETE PULM Routine 07/22/2018 Shortness of breath FUNCTION 10:53 AM EMERGENCY NURSE in this encounter Results * PFT COMPLETE PULM FUNCTION (07/22/2018 10:53 AM EMERGENCY NURSE) FVC-Pre 2.15 L [facility] FVC-%Pred-pre 64 % [facility] FEV1-Pre 1.89 L [facility] FEV1-%Pred-Pre 73 % [facility] FEV1/FVC-Pre 88 % [facility] [id number] 67 % [facility] [id number] 3.03 L/sec [facility] [id number]-%Pred-Pre 139 % [facility] RVPleth-Pre 1.71 [...] MAIN DLVA-#SD 1.526 ml/min/mmHg/L [facility] [id number] 71 % [facility] Performing Organization Address City/State/Zipcode Phone Number [facility] [address] [place] [address] in this encounter Visit Diagnoses Diagnosis Shortness of breath - Primary in this encounter
--- OUTSIDE RECORDS SUMMARY | 2018-08-17 12:49 | XMS REPORT | Encounter Summary ---
Author Author [facility] Organization [facility] Address Unknown Phone Unavailable Care Team Providers Care Mysql Database Developer Name Role Phone Judah Lopez RN Unavailable Unavailable Brett Alcantar MD Unavailable Kumar Diggs MD Unavailable Doctor, Miscellaneous Unavailable Unavailable Barbara Pelaez MD Unavailable Adolfo Cardenas MD PCP Fausto Hsu Unavailable Unavailable Nallely Gomez MD Unavailable Silvano Potts MD Unavailable Sarwat Lozano APRN Unavailable Unavailable Aileen Jacobson MD Unavailable Unavailable Leonid Santos MD Unavailable Unavailable Danitza Rios MA,CCC-MIGRATORY FARM HAND Unavailable Unavailable Gela Cleary RN Unavailable Unavailable Hossein Minaya MD Unavailable Deonna Cunningham RN Unavailable Unavailable Anila Valencia RN Unavailable Unavailable Daniel Bond RN Unavailable Unavailable Yolette Moore MA,CCC-MIGRATORY FARM HAND Unavailable Unavailable Bryan Romero Unavailable Unavailable Nallely Tracy MA,CCC-MIGRATORY FARM HAND Unavailable Unavailable Haresh Kathleen MD Unavailable Teetee Taylor RN Unavailable Unavailable Bonnie Goss RN Unavailable Unavailable Maricel Albrecht MD Unavailable Kiarra Patrick RN Unavailable Unavailable Evelio Chris RN 2 Unavailable Todd Avendano MD Unavailable Tatiana Tim PA-C Unavailable Reason for Visit * Reason Comments Pre-Visit Planning Appt 08/13/18 Dr. Luna Encounter Details Care Team Description Date [place] [address] [place] [address] Pre-Visit Planning (Appt 08/13/18 Dr. Luna) 07/30/2018 Telephone [facility] Neurology [place] [address] [address] [place] [address] Social History Date Tobacco Use Types Packs/Day [...] cognitive impairment: No as of this encounter Miscellaneous Notes * Telephone Encounter - Payton Robertson RN - 07/30/2018 4:43 PM LOOM OPERATOR Initial Visit Date: 08/13/18 Reason for Visit: f/u chiari surgery, previous provider retired, surgery in 2003 Physician Information PCP: [facility] Referring Physician: Dr. Stefanie MCDONALD cardiology Previous Neurologist: none Other providers seen: pulmonary clinic, Dr. Surekha MCDONALD urology, Dr. Hossein MCDONALD ENT, Dr. Kumar Diggs [facility], Dr. Oscar Pratt [facility] (2016), Dr. Haresh Kathleen [facility], Dr. Morales at [facility], Dr. Barroso pain management Previous Imaging/Procedures: [place] possibly [place] with Dr. Morales in 2003 CT head- 05/12/04 [facility] CE XRay EMG EEG ED/Hospitalizations: [facility] admission 03/26/18 [facility] 10/26/17 SOB Current Meds: none Medications, Allergies, History Updated OPERATOR in this encounter Plan of Treatment Not on fileas of this encounter Visit Diagnoses Not on filein this encounter
--- OUTSIDE RECORDS SUMMARY | 2018-08-17 12:49 | XMS REPORT | Encounter Summary ---
Author Author [facility] Organization [facility] Address Unknown Phone Unavailable Care Team Providers Care Photo Graphics Librarian Name Role Phone Judah Lopez RN Unavailable Unavailable Brett Alcantar MD Unavailable Kumar Diggs MD Unavailable Doctor, Miscellaneous Unavailable Unavailable Barbara Pelaez MD Unavailable Adolfo Cardenas MD PCP Fausto Hsu Unavailable Unavailable Nallely Gomez MD Unavailable Silvano Potts MD Unavailable Sarwat Lozano APRN Unavailable Unavailable Aileen Jacobson MD Unavailable Unavailable Leonid Santos MD Unavailable Unavailable Danitza Rios MA,CCC-DIRECTOR OF GOLF Unavailable Unavailable Gela Cleary RN Unavailable Unavailable Hossein Minaya MD Unavailable Deonna Cunningham RN Unavailable Unavailable Anila Valencia RN Unavailable Unavailable Daniel Bond RN Unavailable Unavailable Yolette Moore MA,CCC-DIRECTOR OF GOLF Unavailable Unavailable Bryan Romero Unavailable Unavailable Nallely Tracy MA,CCC-DIRECTOR OF GOLF Unavailable Unavailable Haresh Kathleen MD Unavailable Teetee Taylor RN Unavailable Unavailable Bonnie Goss RN Unavailable Unavailable Maricel Albrecht MD Unavailable Kiarra Patrick RN Unavailable Unavailable Evelio Chris RN 2 Unavailable Todd Avendano MD Unavailable Tatiana Tim PA-C Unavailable Reason for Referral * Consult, Test & Treat (Routine) Referred By Contact Referred To Contact Status Reason Specialty Diagnoses / Procedures Stefanie Milton MD [address] [place] [id number] [place] [phone] [facility] Neurology [facility] Med [place] [address] [facility] [address] [address] [place] [address] [facility] Diagnoses Required History of Chiari malformation Scheduling Instructions Contact Phone Numbers for each area if questions arise: General: [phone] Epilepsy: Multiple Sclerosis: Parkinson's: [facility]: Stroke & Neuromuscular: [place]: * Consult, Test & Treat Referred By Contact Referred To Contact Status Reason Specialty Diagnoses / Procedures Stefanie Milton MD [address] [address] [facility] [place] [phone] No Auth Needed Cardiology Procedures REQUEST FOR CARDIOLOGY APPOINTMENT Reason for Visit * Reason Comments Cardiac Eval shortness of breath and palpitations F/U * Consult, Test & Treat Referred By Contact Referred To Contact Status Reason Specialty Diagnoses / Procedures Stefanie Milton MD [address] [address] [facility] [place] [phone] No Auth Needed Cardiology Procedures REQUEST FOR CARDIOLOGY APPOINTMENT Encounter Details Care Team Description Date Type Department Stefanie Milton MD [address] [place], [place] [id number] Cardiac Eval (shortness of breath and palpitations F/U) 06/24/2018 Office Visit Cardiovascular Medicine [facility] [place] [address] Social History Date Tobacco Use Types Packs/Day [...] Vital Signs Time Taken Vital Sign Reading 06/24/2018 10:06 AM CDT Blood Pressure 124/74 06/24/2018 10:06 AM CDT Pulse 88 - Temperature - - Respiratory Rate - 06/24/2018 10:06 AM CDT Oxygen Saturation 95% - Inhaled Oxygen - Concentration 06/24/2018 10:06 AM CDT Weight 102.1 kg (225 lb) 06/24/2018 10:06 AM CDT Height 167.6 cm (5' 6") 06/24/2018 10:06 AM CDT Body Mass Index 36.32 in this encounter Functional Status Date of [...] this encounter Patient Instructions * Patient Instructions* Lisa Rodriguez RN - 06/24/2018 10:[address] Milton is referring you to Neurology. No follow-up has been scheduled at this time. You will see Dr. Milton as needed. In order to provide you the best care possible we ask that you follow up as below: Please consider signing up for [employer]. For all questions, please call the nursing triage voicemail at [phone] Friday - Friday 8-5 only. Please leave a detailed message with your name, date of , and reason for your call. Please allow ~ 10 business days for the results of any testing to be reviewed. Please call our office if you have not heard from a nurse within this time frame in this encounter Progress Notes * Stefanie Milton MD - 06/24/2018 10:15 AM CDT Date of Service: 06/24/2018 Micki Kelley is a 68 y.o. female. HPI Micki Kelley presents to the office today in electrophysiology follow-up for history of shortness of breath and palpitations. As you know, she is an unfortunate 68-year-old female with a past medical history of gastroesophageal reflux disease, gastritis with intestinal bacterial overgrowth, status post thyroidectomy, osteoarthritis, and persistent shortness of breath who I initially met in the office in February. At that time, she came with complaints of heart pounding and racing. She also had what she describes shortness of breath with any type of exertion to the point where she was wearing her CPAP 20 hours a day. As part of her evaluation, I asked her to undergo an echocardiogram to assess LV function and look for significant valvular heart disease. I also recommended thallium stress testing and a 24-hour Holter monitor. 2D echocardiogram with Doppler showed normal LV function without regional wall motion abnormalities. Thallium stress testing was negative for ischemia. Her 24-hour Holter monitor showed no significant arrhythmias. Micki is in the office today telling me that she knows something is wrong. She is short of breath all the time. She cannot walk anywhere because of this. She is hardly living at this point. She feels that the CPAP machine forces oxygen into her lungs. Patient also has some nonspecific complaints of fatigue , lightheadedness, gait instability, and bilateral muscle weakness. She has a history of Chiari malformation and had has undergone surgery in the past. She is wondering if this is playing a role in her symptoms. Finally, Micki remains frustrated that she has been unable to see pulmonary at . Her appointment has apparently been canceled twice. Vitals: 06/24/18 1003 06/24/18 1006 BP: 124/74 Pulse: 88 SpO2: 95% Weight: 102.1 kg (225 lb) Height: 1.676 m (5' 6") 1.676 m (5' 6") Body mass index is 36.32 kg/m. Past Medical History Patient Active Problem List Diagnosis Date Noted Palpitations 04/01/2018 03/11/2018 - Holter: 24 hour holter monitor associated with sinus rhythm. This is an unremarkable holter monitor Shortness of breath 03/11/2018 Abdominal bloating 11/18/2017 Added automatically from request for surgery [id number] Gastroesophageal reflux disease 11/18/2017 Added automatically from request for surgery [id number] Diarrhea 11/18/2017 Added automatically from request for surgery [id number] Incomplete bladder emptying 05/06/2017 - Increased difficulty [...] 10/06/2012 Gastritis 10/06/2012 Intestinal bacterial overgrowth 10/06/2012 ROS Physical Exam GEN: morbidly obese, well nourished, in no acute distress HEENT: unremarkable, no JVD CHEST: clear to auscultation bilaterally CV: Reg rhythm, nml rate; nml S1 & S2, no S3 or S4; no rub; no murmurs ABD: soft, nontender, non-distended, positive bowel sounds EXT: no clubbing, cyanosis, or edema, 1+ distal pulses NEURO: alert and oriented x3, no focal deficits Cardiovascular Studies none Problems Addressed Today Encounter Diagnoses Name Primary? Shortness of breath Yes Restless leg History of Chiari malformation Pain, neuropathic Assessment and Plan Shortness of breath Mrs. Kelley continues to complain of shortness [...] wait so long for a pulmonary appointment. Pain, neuropathic Mrs. Kelley has a lot of nonspecific complaints of pain, dizziness, gait instability, and weakness of her extremities. She is wondering if they might be due to her Chiari malformation. I encouraged her to follow-up with neurology. I have not scheduled a follow up appointment at this time. I would be happy to see the patient back in the future if the need arises. Current Medications (including today's revisions) acyclovir (ZOVIRAX) [...] at bedtime as needed. in this encounter Plan of Treatment Order Schedule Name Priority Associated Diagnoses Ordered: 06/24/2018 AMB REFERRAL TO NEUROLOGY Routine History of Chiari malformation as of this encounter Visit Diagnoses Diagnosis Shortness of breath - Primary Restless leg Restless legs syndrome (RLS) History of Chiari malformation Pain, neuropathic Neuralgia, neuritis, and radiculitis, unspecified * Assessment & Plan Note - Stefanie Milton MD - 06/26/2018 10:39 PM CDT Associated Problem(s): Pain, neuropathic Mrs. Kelley has a lot of nonspecific complaints of pain, dizziness, gait instability, and weakness of her extremities. She is wondering if they might be due to her Chiari malformation. I encouraged her to follow-up with neurology. * Assessment & Plan Note - Stefanie Milton MD - 06/26/2018 10:36 PM CDT Associated Problem(s): Shortness of breath Mrs. Kelley continues to complain of shortness [...] wait so long for a pulmonary appointment. in this encounter
--- OUTSIDE RECORDS SUMMARY | 2018-08-17 12:50 | XMS REPORT | Continuity of Care Document ---
Author Author [facility] Organization [facility] Address Unknown Phone Unavailable Allergies Active Description Code Type Severity Reaction Onset Reported/Identified Relationship to Patient Clinical Status Yes No Known Drug Allergies [id number] Drug Allergy Unknown N/A 02/11/2014 Medications There [...] BIJAN Sosa Ot 789.00 09/05/2013 GELLENDER DO, BIJNA Sosa Ot 789.1 10/05/2013 DEBORAH HALL, KATHLEEN [...] Ot G89.18 OTHER ACUTE POSTPROCEDURAL PAIN 2016 RUFNIA CABRERA MDYD R Ot K59.00 CONSTIPATION, UNSPECIFIED [...] RIGHT ARTIFICIAL KNEE JOINT 08/07/2016 PEPPER MARTINEZ PV DESIGN ENGINEER Ot S99.921A UNSPECIFIED INJURY OF RIGHT FOOT, INITIA 08/07/2016 VAN REEDPEPPER Olvera PV DESIGN ENGINEER Ot X58.XXXA EXPOSURE TO OTHER SPECIFIED FACTORS, INI 08/07/2016 VAN REEDPEPPER Olvera PV DESIGN ENGINEER Ot Y99.8 OTHER EXTERNAL CAUSE STATUS 08/14/2016 VAN REEDPEPPER Olvera PV DESIGN ENGINEER Ot S99.921A UNSPECIFIED INJURY OF RIGHT FOOT, [...] UNSPECIFIED INJURY OF RIGHT FOOT, INITIA 12/19/2016 PEPPRE MARTINEZ Ot X58.XXXA EXPOSURE TO OTHER SPECIFIED [...] Ot M25.561 PAIN IN RIGHT KNEE 04/01/2017 JOENL LOW MD Ot Z96.651 PRESENCE OF RIGHT [...] CABRERA MD R Ot 784.42 DYSPHONIA 04/04/2017 KAHTLEEN CABRERA MD Ot D64.9 ANEMIA, UNSPECIFIED 04/04/2017 KATHLEEN CABRERA MD R Ot E03.9 HYPOTHYROIDISM, UNSPECIFIED 04/04/2017 KATHLEEN CABRERA MD R Ot R73.02 IMPAIRED GLUCOSE TOLERANCE (ORAL) 04/04/2017 AKTHLEEN CABRERA MD R Ot M89.8X6 OTHER SPECIFIED [...] 02/11/2018 DEBORAH HALL KATHLEEN R Ot T84.89XA [facility] COMP OF INTERNAL ORTHOPEDIC PROSTH D 02/27/2018 NIYA CHAVEZ EGG SMELLER-C Ot J20.9 ACUTE BRONCHITIS, UNSPECIFIED 03/03/2018 KATHLEEN [...] COMP OF INTERNAL ORTHOPEDIC PROSTH D 03/20/2018 INYA CHAVEZ-C Ot J20.9 ACUTE BRONCHITIS, UNSPECIFIED 03/20/2018 GABBIE AZUL MD Ot J20.9 ACUTE BRONCHITIS, UNSPECIFIED 03/20/2018 GABBIE AZUL MD, Ot J42 UNSPECIFIED CHRONIC BRONCHITIS 03/20/2018 GABBIE AZUL MD Ot R06.02 SHORTNESS OF BREATH 03/20/2018 GABBIE AZUL MD Ot Z79.52 GROUP HOME (CURRENT) USE OF SYSTEMIC STER 03/20/2018 GABBIE AZUL MD, Ot Z79.82 GROUP HOME (CURRENT) USE OF ASPIRIN 03/20/2018 GABBIE AZUL MD Ot Z79.84 CHECK INSPECTOR (CURRENT) USE OF ORAL HYPOGLYC 03/20/2018 GABBIE [...] BREATH 03/23/2018 GABBIE AZUL MD Ot Z79.52 CHECK INSPECTOR (CURRENT) USE OF SYSTEMIC STER 03/23/2018 GABBIE AZUL MD Ot Z79.82 GROUP HOME (CURRENT) USE OF ASPIRIN 03/23/2018 GABBIE AZUL MD Ot Z79.84 CHECK INSPECTOR (CURRENT) USE OF ORAL HYPOGLYC 03/23/2018 GABBIE [...] BREATH 04/20/2018 GABBIE AZUL MD, Ot Z79.52 CHECK INSPECTOR (CURRENT) USE OF SYSTEMIC STER 04/20/2018 GABBIE AZUL MD, Ot Z79.82 GROUP HOME (CURRENT) USE OF ASPIRIN 04/20/2018 GABBIE AZUL MD, Ot Z79.84 CHECK INSPECTOR (CURRENT) USE OF ORAL HYPOGLYC 04/20/2018 GABBIE AZUL MD, Ot Z82.49 FAMILY HX OF ISCHEM HEART DIS AND OTH DI 04/20/2018 GABBIE AZUL MD, Ot Z87.01 PERSONAL HISTORY OF PNEUMONIA (RECURRENT 04/20/2018 GABBIE AZUL MD, Ot Z87.19 PERSONAL HISTORY OF OTHER DISEASES OF TH 04/20/2018 GABBIE AZUL MD, Ot Z87.891 PERSONAL HISTORY OF NICOTINE DEPENDENCE 04/24/2018 KATHLEEN CABRERA MD Ot Z45.2 ENCOUNTER FOR ADJUSTMENT AND MANAGEMENT 04/24/2018 KATHLEEN CABRERA MD Ot Z86.19 PERSONAL HISTORY OF OTHER INFECTIOUS AND 05/04/2018 CONNIE OLGUIN APRN Ot Z86.19 PERSONAL HISTORY OF OTHER INFECTIOUS AND 05/21/2018 CONNIE OLGUIN APRN Ot Z86.19 PERSONAL HISTORY OF OTHER INFECTIOUS AND 05/27/2018 KATHLEEN CABRERA MD Ot Z45.2 ENCOUNTER FOR ADJUSTMENT AND MANAGEMENT 05/27/2018 KATHLEEN CABRERA MD Ot Z86.19 PERSONAL HISTORY OF OTHER INFECTIOUS AND 06/25/2018 DAVID SINGH MD, Ot G25.81 RESTLESS LEGS SYNDROME 06/25/2018 DAVID SINGH MD, Ot M79.18 MYALGIA, OTHER SITE 06/25/2018 DAVID SINGH MD, Ot M79.604 PAIN IN RIGHT LEG 06/25/2018 DAVID SINGH MD, Ot Z79.51 CHECK INSPECTOR (CURRENT) USE OF INHALED STERO 06/25/2018 DAVID SINGH MD, Ot Z79.82 CHECK INSPECTOR (CURRENT) USE OF ASPIRIN 06/25/2018 DAVID SINGH MD, Ot Z79.84 GROUP HOME (CURRENT) USE OF ORAL HYPOGLYC 06/25/2018 DAVID SINGH MD, Ot Z80.0 FAMILY HISTORY OF MALIGNANT NEOPLASM OF 06/25/2018 DAVID SINGH MD, Ot Z82.49 FAMILY HX OF ISCHEM HEART DIS AND OTH DI 06/25/2018 DAVID SINGH MD, Ot Z87.01 PERSONAL HISTORY OF PNEUMONIA (RECURRENT 06/25/2018 DAVID SINGH MD, Ot Z87.19 PERSONAL HISTORY OF OTHER DISEASES OF TH 06/25/2018 DAVID SINGH MD, Ot Z96.651 PRESENCE OF RIGHT ARTIFICIAL KNEE JOINT Procedures There is no data. Results Test [...] for toxigenic C diff by DNA amplification [facility] CALL POSITIVES (F1 HELP) CALLED TO GERARDO STOUT 04/03/16 14:45 BY Mikey PAGAN [facility] Bacterial urine culture - 03/28/17 17:00 URINE CULTURE RESULTS <10,000/ML [facility] Complete blood count (CBC) with automated white [...] - 04/14/18 13:00 FREE TEXT EXTERNAL MANY NR QUANTITY OF GROWTH . [facility] FREE TEXT ENTRY 2 RML REPORTED SENSITIVITY 04/18 13:05 NR Stool bacteria identification by culture SEE [facility] FREE TEXT ENTRY 3 CIPROFLOXACIN:INTERMEDIATE BY E-TEST [facility] RML Sensitivity Panel - 04/14/18 13:00 Trimethoprim/sulfamethoxazole susceptibility test by minimum inhibitoryconcentration R [facility] Ampicillin susceptibility test by minimum inhibitory concentration > NR Stool bacteria identification by culture - 05/01/18 09:20 QUANTITY OF GROWTH . [facility] Stool bacteria identification by culture [facility] Complete blood count (CBC) with automated white blood cell (WBC) differential - 06/23/18 07:25 Blood leukocytes automated count (number/volume) 7.5 10*3/uL 4.3-11.0 Blood erythrocytes automated count (number/volume) 4.68 10*6/uL 4.35-5.85 Venous blood hemoglobin measurement (mass/volume) 11.1 g/dL 11.5-16.0 Blood hematocrit (volume fraction) 36 % 35-52 Automated erythrocyte mean corpuscular volume 77 [foz_us] 80-99 Automated erythrocyte mean corpuscular hemoglobin (mass per erythrocyte) 24 pg 25-34 Automated erythrocyte mean corpuscular hemoglobin concentration measurement ( mass/volume) 31 g/dL 32-36 Automated erythrocyte distribution width ratio 17.6 % 10.0-14.5 Automated blood platelet count (count/volume) 234 10*3/uL 130-400 Automated blood platelet mean volume measurement 10.3 [foz_us] 7.4-10.4 Automated blood neutrophils/100 leukocytes 63 % 42-75 Automated blood lymphocytes/100 leukocytes 28 % 12-44 Blood monocytes/100 leukocytes 6 % 0-12 Automated blood eosinophils/100 leukocytes 3 % 0-10 Automated blood basophils/100 leukocytes 0 % 0-10 Blood neutrophils automated count (number/volume) 4.7 10*3 1.8-7.8 Blood lymphocytes automated count (number/volume) 2.1 10*3 1.0-4.0 Blood monocytes automated count (number/volume) 0.4 10*3 0.0-1.0 Automated eosinophil count 0.2 10*3/uL 0.0-0.3 Automated blood basophil count (count/volume) 0.0 10*3/uL 0.0-0.1 Comprehensive metabolic panel - 06/23/18 07:25 Serum or plasma sodium measurement (moles/volume) 138 mmol/L 135-145 Serum or plasma potassium measurement (moles/volume) 4.1 mmol/L 3.6-5.0 Serum or plasma chloride measurement (moles/volume) 105 mmol/L 98-107 Carbon dioxide 20 mmol/L 21-32 Serum or plasma anion gap determination (moles/volume) 13 mmol/L 5-14 Serum or plasma urea nitrogen measurement (mass/volume) 14 mg/dL 7-18 Serum or plasma creatinine measurement (mass/volume) 0.78 mg/dL 0.60-1.30 Serum or plasma urea nitrogen/creatinine mass ratio 18 NRG Serum or plasma creatinine measurement with calculation of estimated glomerular filtration rate > NRG Serum or plasma glucose measurement (mass/volume) 202 mg/dL 70-105 Serum or plasma calcium measurement (mass/volume) 9.3 mg/dL 8.5-10.1 Serum or plasma total bilirubin measurement (mass/volume) 0.8 mg/dL 0.1-1.0 Serum or plasma alkaline phosphatase measurement (enzymatic activity/volume) 79 U/L 40-136 Serum or plasma aspartate aminotransferase measurement (enzymatic activity/ volume) 16 U/L 5-34 Serum or plasma alanine aminotransferase measurement (enzymatic activity/volume ) 19 U/L 0-55 Serum or plasma protein measurement (mass/volume) 6.6 g/dL 6.4-8.2 Serum or plasma albumin measurement (mass/volume) 3.8 g/dL 3.2-4.5 CALCIUM CORRECTED 9.5 mg/dL 8.5-10.1 Serum or plasma C reactive protein measurement (mass/volume) - 06/23/18 07:25 Serum or plasma C reactive protein measurement (mass/volume) 1.32 mg /dL 0.00-0.50 Encounters ACCT No. Visit Date/Time Discharge Status Pt. Type Provider Facility Loc./Unit Complaint [id number] 06/23/2018 06:04:00 06/23/2018 08:59:00 DIS Outpatient DAVID SINGH MD [facility] ER LEG PAIN [id number] 05/25/2018 00:46:00 05/25/2018 23:59:59 CLS Preadmit KATHLEEN CABRERA MD [facility] [id number] 05/01/2018 09:34:00 05/01/2018 23:59:59 CLS Outpatient CONNIE OLGUIN APRN [facility] LAB V12.09 [id number] 04/14/2018 09:44:00 04/24/2018 00:01:00 DIS Outpatient KATHLEEN CABRERA MD [facility] [id number] 03/20/2018 10:52:00 03/20/2018 23:59:59 CLS Outpatient KATHLEEN CABRERA MD [facility] RAD CHRONIC ALEXIS LOW BACK PAIN [id number] 03/20/2018 18:16:00 03/20/2018 21:20:00 DIS Outpatient GABBIE AZUL MD [facility] ER SOB [id number] 02/26/2018 17:40:00 02/26/2018 23:59:59 CLS Outpatient NIYA CHAVEZ EGG SMELLER-C [facility] RAD COUGH [id number] 02/10/2018 14:22:00 02/10/2018 23:59:59 CLS Outpatient KATHLEEN CABRERA MD [facility] RAD HX KNEE REPLACEMENT,KNEE PAIN,KNEE SWELLING [id number] 09/10/2017 11:14:00 10/08/2017 15:33:00 DIS Outpatient KENAN HALL, HUMBLE [facility] REHAB INCOMPLETE BLADDER EMPTYING [id number] 05/25/2017 02:39:00 05/25/2017 23:59:59 CLS Preadmit KATHLEEN CABRERA MD [facility] REHAB R TOTAL KNEE [id number] 05/08/2017 10:28:00 05/24/2017 00:01:00 DIS Outpatient KATHLEEN CABRERA MD [facility] REHAB R TOTAL KNEE [id number] 05/03/2017 12:53:00 05/03/2017 12:53:00 CAN Preadmit NASREEN BLOUNT DO [facility] ER SOA [id number] 03/05/2017 10:04:00 04/01/2017 08:58:00 DIS Outpatient DEVANTE HALL, JONEL Mcguire [facility] REHAB R KNEE PAIN;R IT BAND SYNDROME [id number] 03/28/2017 19:27:00 03/28/2017 23:59:59 CLS Outpatient CONNIE OLGUIN APRN [facility] LAB ACUTE CYSTITIS WITH HEMATURIA [id number] 01/22/2017 11:26:00 02/26/2017 14:59:00 DIS Outpatient FLAVIA ALBARADO MD [facility] REHAB VOCAL CORD ISSUES [id number] 12/30/2016 14:02:00 12/30/2016 23:59:59 CLS Outpatient KATHLEEN CABRERA MD [facility] RAD M25.561, G89.29 CHRONIC KNEE PAIN [id number] 12/30/2016 08:31:00 12/30/2016 23:59:59 CLS Preadmit KATHLEEN CABRERA MD [facility] RAD M25.561 G89.29 [id number] 12/27/2016 15:30:00 12/27/2016 23:59:59 CLS Outpatient PEPPER MARTINEZ [facility] RAD ACUTE RT KNEE PAIN [id number] 08/26/2016 00:15:00 08/26/2016 23:59:59 CLS Preadmit JONEL LOW MD [facility] REHAB S/P R TOTAL KNEE [id number] 08/08/2016 12:51:00 08/25/2016 00:01:00 DIS Outpatient JONEL LOW MD [facility] REHAB S/P R TOTAL KNEE [id number] 08/06/2016 13:16:00 08/06/2016 23:59:59 CLS Outpatient PEPPER MARTINEZ [facility] RAD INJURY OF GREAT TOE RT INITIAL ENCOUNTER,E959.7 [id number] 05/22/2016 10:21:00 05/24/2016 17:00:00 DIS Outpatient JONEL LOW MD [facility] REHAB S/P R TOTAL KNEE [id number] 04/25/2016 07:08:00 04/25/2016 23:59:59 CLS Outpatient KATHLEEN CABRERA MD [facility] RAD PAINFUL POSTERIOR LEG [id number] 04/01/2016 11:55:00 2016 17:26:00 DIS Inpatient KATHLEEN CABRERA MD [facility] 4TH SEVERE PAIN RT KNEE, NAUSEA,VOMITING [id number] 12/13/2015 14:28:00 12/13/2015 23:59:59 CLS Outpatient KATHLEEN CABRERA MD [facility] LAB HYPOTHYROIDISM,ANEMIA [id number] 05/11/2015 13:55:00 05/15/2015 10:23:00 DIS Inpatient KATHLEEN CABRERA MD [facility] 4TH PAIN ABD,PELVIS [id number] 12/06/2014 11:22:00 12/06/2014 23:59:59 CLS Outpatient DEBORAH HALL, KATHLEEN R [facility] RAD SARINA CRAIG [id number] 07/14/2014 11:19:00 07/14/2014 23:59:59 CLS Outpatient RIC FLOREZ MD [facility] RAD [id number] 02/11/2014 12:43:00 02/13/2014 10:40:00 DIS Inpatient DEBORAH HALL, KATHLEEN R Via [address] [id number] 10/19/2013 18:45:00 10/21/2013 11:00:00 DIS Inpatient DEBORAH HALL, KATHLEEN R Via [address] [id number] 10/16/2013 13:56:00 10/18/2013 09:30:00 DIS Inpatient KATHLEEN CABRERA MD R Via [address] [id number] 10/06/2013 16:55:00 10/15/2013 09:35:00 DIS Outpatient DEBORAH HALL, KATHLEEN R [facility] [id number] 09/27/2013 15:40:00 10/05/2013 10:15:00 DIS Inpatient KATHLEEN CABRERA MD R Via [address] [id number] 09/01/2013 15:25:00 09/05/2013 14:15:00 DIS Inpatient BIJAN MIGUEL DO Via [address] [id number] 07/28/2013 00:43:00 08/02/2013 13:25:00 DIS Inpatient KATHLEEN CABRERA MD R Via [address] ABD PAIN/VOMITING [id number] 07/15/2013 16:50:00 07/21/2013 13:45:00 DIS Inpatient KATHLEEN CABRERA MD Via [address] CONSTIPATION [id number] 07/15/2013 00:31:00 07/15/2013 01:59:00 DIS Emergency NASREEN BLOUNT DO [facility] ER STOMACH PAIN [id number] 04/15/2013 08:31:00 04/15/2013 23:59:59 CLS Outpatient KATHLEEN CABRERA MD [facility] RAD DYSPHAGIA [id number] 02/20/2013 14:44:00 02/20/2013 17:53:00 DIS Emergency MINE NASREEN K [facility] ER FALL [id number] 02/15/2013 16:32:00 02/19/2013 12:10:00 DIS Inpatient KATHLEEN CABRERA MD [facility] 4TH ABD PAIN [id number] 08/21/2018 11:28:00 PEN Preadmit ROMERO MAGDALENO DO [facility] REHAB R TKA PAIN [id number] 11/12/2012 07:30:00 Document Registration [id number] 10/20/2012 10:05:00 Document Registration [id number] 07/27/2012 22:28:00 Document Registration [id number] 12/07/2014 05:33:40 ACT Document Registration
--- NOTE | 2018-08-17 13:48 | Diagnostic Imaging Report ---
INDICATION: Cough. TIME OF EXAM: 2:01 PM COMPARISON: Correlation is made with prior study from 03/20/2018. FINDINGS: Left-sided port has tip overlying the upper portion of the right atrium. The lungs are clear. Pulmonary vascularity is normal. No effusion or pneumothorax is seen. IMPRESSION: No acute cardiopulmonary process is detected. Dictated by: Dictated on workstation # [id number]
--- NOTE | 2018-08-17 13:57 | ED Cough/URI ---
General Chief Complaint: Cough/Cold/Flu Symptoms Stated Complaint: COLD LIKE SYMPTOMS Nursing Triage Note: PT REPORTS COUGH AND COLD SYMPTOMS THAT STARTED YESTERDAY WITH NO RELIEF FROM OTC MEDICATIONS. PT REPORTS SHE RECENTLY HAD TESTING DONE IN [place] FOR LUNG ISSUES. Source: patient Exam Limitations: no limitations History of Present Illness Date Seen by Provider: Aug 17, 2018 Time Seen by Provider: 13:25 Initial Comments Here with report of cough and cold symptoms that started over the last few days. She has tried vxtw-lhw-pluzazi stuff and that has not helped. Denies nausea or vomiting. Does have history of some chronic lung disease and is in workup for that right now. Does have some nasal congestion and mild sore throat. Timing/Duration: getting worse, other (3 days) Severity/Quality: moderate, dry cough Prior Episodes/Possible Cause: occasional episodes Modifying Factors: Improves With Albuterol Inhaler, Improves With Rest Associated Symptoms: cough, shortness of breath, sore throat, wheezing Allergies and Home Medications Allergies Coded Allergies: No Known Drug Allergies (Unverified , 02/11/14) Home Medications Acyclovir 5 Gm Cream.gm., TOP Q4H PRN for FEVER BLISTER, (Reported) Albuterol Sulfate 1 Puff Puff, 2 PUFF IH Q4H PRN for DYSPNEA 1 PUFF = 90 MCG Prescribed by: GABBIE AZUL on 03/20/182106 Alprazolam 1 Mg Tablet, 1 MG PO HS, (Reported) Amoxicillin 500 Mg Tablet, 500 MG PO QID, (Reported) Aspirin 325 Mg Tablet.dr, 325 MG PO HS, (Reported) Cyclosporine 1 Each Droperette, 1 DROP OU BID, (Reported) Estradiol 42.5 Gm Cream.appl, 1 APPLIC VG DAILY PRN for DISCOMFORT, (Reported) Fentanyl 1 Each Patch.td72, 100 MCG TD Q72H Prescribed by: SERENA CABRERA on 04/03/16 0723 Gabapentin 600 Mg Tablet, 1,800 MG PO BID, (Reported) TAKES 3 (600MG) TABLETS Hydrocodone Bit/Acetaminophen 1 Each Tablet, 1 EACH PO Q4H PRN for PAIN, ( Reported) Metformin HCl 500 Mg Tablet, 500 MG PO BID, (Reported) Mineral Oil/Petrolatum,White 3.5 Gm Oint...g., OU HS, (Reported) Ondansetron 4 Mg Tab.rapdis, 4-8 MG PO Q8H PRN for NAUSEA/VOMITING-1ST LINE, ( Reported) Oxycodone HCl/Acetaminophen 1 Each Tablet, 1 EACH PO BID Prescribed by: SERENA CABRERA on 04/03/16 0724 Polyethylene Glycol 3350 119 Gm Powder, 17 GM PO DAILY PRN for CONSTIPATION, ( Reported) Pramipexole Di-HCl 0.125 Mg Tablet, 0.125 MG PO 1600,2000, (Reported) Simvastatin 40 Mg Tablet, 40 MG PO HS, (Reported) Solifenacin Succinate 10 Mg Tablet, 10 MG PO HS, (Reported) Sucralfate 1 Gm Tablet, 1 GM PO BID, (Reported) Zolpidem Tartrate 12.5 Mg Tab.mphase, 12.5 MG PO HS, (Reported) Patient Home Medication List Home Medication List Reviewed: Yes Review of Systems Review of Systems Constitutional: see HPI; No fever EENTM: see HPI, nose congestion Respiratory: short of breath, wheezing Cardiovascular: no symptoms reported Gastrointestinal: No abdominal pain, No nausea, No vomiting Genitourinary: no symptoms reported Musculoskeletal: no symptoms reported Past Juzbype-Nbjkjx-Eituej Hx Past Med/Social Hx: Reviewed Nursing Past Med/Soc Hx Patient Social History Alcohol Use: Occasionally Uses Recreational Drug Use: No Smoking Status: Never a Smoker 2nd Hand Smoke Exposure: No Recent Foreign Travel: No Contact w/Someone Who Travel: No Recent Infectious Disease Expo: No Recent Hopitalizations: Yes (january 24 right knee replacement, SEPT FOR 5 DAYS (LUNG ISSUES)) Physical Abuse: No Sexual Abuse: No Immunizations Up To Date Tetanus Booster (TDap): More than 5yrs Date of Pneumonia Vaccine: Oct 04, 2011 Date of Influenza Vaccine: Jul 06, 2013 Seasonal Allergies Seasonal Allergies: No Past Medical History Surgeries: Yes (CHIARI MALFORMATION REPAIR. EGD'S AND COLONOSCOPIES--LAST ONES 1 MONTH AGO.) Abdominal Respiratory: Yes Pneumonia Cardiac: Yes Neurological: Yes (CHIARI MALFORMATION surgically fixed) Reproductive Disorders: No Female Reproductive Disorders: Denies Sexually Transmitted Disease: No HIV/AIDS: No Gastrointestinal: Yes ("COMPLETE ABD RECONSTRUCTION" 2009. CHRONIC ABDOMINAL PAIN) Chronic Constipation, Chronic Diarrhea Musculoskeletal: Yes (CHRONIC GENERALIZED PAIN--NARCOTIC DEPENDENT) Arthritis, Chronic Back Pain Endocrine: Yes (MASS LT THYROID REMOVED 01/01/2013) Cancer: No Psychosocial: No Integumentary: No Blood Disorders: No Adverse Reaction/Blood Tranf: No Family Medical History Reviewed Nursing Family Hx Cancer 03 FATHER (PANCREATIC, PASSED AT 65 FROM THIS) Cataract 03 MOTHER Dementia 03 MOTHER Family history: Arthritis 03 MOTHER Family history: Cardiovascular disease 03 MOTHER (HIGH CHOLESTEROL, BALOON ARTERIES 2 TIMES) Hearing loss 03 MOTHER Hypercholesterolemia 03 MOTHER Cancer Physical Exam Vital Signs - First Documented 08/17/18 13:09 Temp 98.8 Pulse 76 Resp 14 B/P (MAP) 139/72 (94) Pulse Ox 96 Capillary Refill : Less Than 3 Seconds Height: 5'6.00" Weight: 225lbs. 0.0oz. 102.989786fp; 34.7 BMI Method:Stated General Appearance: WD/WN, no apparent distress Neck: full range of motion, supple Respiratory: no accessory muscle use, wheezing (few scattered wheezes) Cardiovascular: regular rate, rhythm, no murmur Neurologic/Psychiatric: alert, oriented x 3 Skin: normal color, warm/dry Progress/Results/Core Measures Suspected Sepsis Recent Fever Within 48 Hours: No Infection Criteria Present: None New/Unexplained Altered Menta: No Sepsis Screen: No Definite Risk SIRS Temperature:98.8 Pulse: 76 Respiratory Rate: 14 Blood Pressure 139 /72 Mean: 94 Results/Orders My Orders Orders - DAVID SINGH MD Albuterol/Ipra Inhalation Soln (Duoneb I (08/17/18 14:00) Svn Small Volume Nebulizer (08/17/18 13:59) Prednisone Tablet (Deltasone Tablet) (08/17/18 14:00) Medications Given in ED Current Medications Medications Dose Ordered Sig/Eloise Route Start Time Stop Time Status Last Admin Dose Admin Prednisone 40 mg ONCE ONCE PO 08/17/18 14:00 08/17/18 14:01 DC 08/17/18 14:04 40 MG Vital Signs/I&O 08/17/18 13:09 Temp 98.8 Pulse 76 Resp 14 B/P (MAP) 139/72 (94) Pulse Ox 96 Capillary Refill : Less Than 3 Seconds Blood Pressure Mean: 94 Progress Note : Progress Note Seen and evaluated. Chest x-ray ordered. 1355: Chest x-ray reviewed. No pneumonia. Does have structural lung disease. We will go ahead and initiate steroids. Due to her bronchitis we will do outpatient [facility]. Discharged home with return precautions. Patient and family verbalize understanding instructions and agreement with plan. Diagnostic Imaging Diagonstic Imaging: Xray Plain Films/CT/US/NM/MRI: chest Comments [facility] [place], [place] NAME: ANA LUJAN [facility] REC#: [id number] PT STATUS: REG ER : 1950 PHYSICIAN: JETHRO RICE APRN ADMIT DATE: 08/17/18/ER Draft Date of Exam:08/17/18 CHEST PA/LAT (2 VIEW) INDICATION: Cough. TIME OF EXAM: 2:01 PM COMPARISON: Correlation is made with prior study from 03/20/2018. FINDINGS: Left-sided port has tip overlying the upper portion of the right atrium. The lungs are clear. Pulmonary vascularity is normal. No effusion or pneumothorax is seen. IMPRESSION: No acute cardiopulmonary process is detected. Dictated on workstation # [id number] Dict: 08/17/18 1345 Trans: 08/17/18 1348 [id number] Interpreted by: AURORA HASTINGS MD Electronically signed by: Departure Impression Primary Impression: Bronchitis Disposition: 01 HOME, SELF-CARE Condition: Improved Departure-Patient Inst. Decision time for Depature: 14:09 Referrals: ROMERO MAGDALENO DO (PCP) Primary Care Physician Patient Instructions: Acute Bronchitis, Adult (DC) Add. Discharge Instructions: All discharge instructions reviewed with patient and/or family. Voiced understanding. Continue your breathing treatments at home. Take medications as directed. Start your steroid dosing tomorrow as you have the first dose here in the ER. Otherwise start her antibiotics today as prescribed. Return for worse pain, fever, vomiting, weakness, breathing problems or other concerns as needed. Scripts Prednisone (Prednisone) 20 Mg Tab 40 MG PO DAILY, #8 TAB 0 Refills Prov: DAVID SINGH MD 08/17/18 Azithromycin (Azithromycin) 250 Mg Tablet 250 MG PO UD, #6 TAB TAKE 2 TABLETS ON DAY ONE THEN TAKE 1 TABLET DAILY FOR FOUR MORE DAYS Prov: DAVID SINGH MD 08/17/18 DAVID SINGH MD Aug 17, 2018 13:57
[2018-08-17] MEDS ORDERED: RT-ALBUTEROL/IPRATROPIUM 3 ML (DUONEB) VIAL INH ONE (14:00)
[2018-08-17] MEDS ORDERED: predniSONE 20 MG TAB PO ONE (14:00)
[2018-08-17] MEDS ORDERED: AZIT250T12 PO (14:10)
[2018-08-17] MEDS ORDERED: PRD20T PO (14:10)
[2018-08-17 14:20] VITALS: BP 139/72
[2018-08-18] MEDS ORDERED: CODE118S4 PO (09:32)
== END 2018-08-17 14:20 | disposition home or self-care (01) ==
LOC: EDUNIT# 12:43 → ER 12:44
DX: J40 Bronchitis, not specified as acute or chronic (principal); Z79.51 Long term (current) use of inhaled steroids; Z79.82 Long term (current) use of aspirin; Z79.84 Long term (current) use of oral hypoglycemic drugs; Z96.651 Presence of right artificial knee joint; Z87.01 Personal history of pneumonia (recurrent); Z98.890 Other specified postprocedural states; Z87.19 Personal history of other diseases of the digestive system; Z80.0 Family history of malignant neoplasm of digestive organs; Z82.49 Family history of ischemic heart disease and other diseases of the circulatory system
CPT/HCPCS: 71046; 94640

== ENCOUNTER 2018-08-18 08:31 | Emergency (ER) | payer MEDICARE, OTHER ==
[~2018-08-18] VITALS: Ht 167.6 cm; Wt 102.1 kg
[~2018-08-18 08:31] MED LIST changes: +AZIT250T12 PO; +PRD20T PO
[2018-08-18] MEDS ORDERED: RT-ALBUTEROL/IPRATROPIUM 3 ML (DUONEB) VIAL INH ONE (09:00)
[2018-08-18] MEDS ORDERED: RX-PROMETHAZINE W/CODEINE SYRUP 30 ML BTL PO PRN (09:00)
--- NOTE | 2018-08-18 09:03 | ED Cough/URI ---
General Chief Complaint: Cough/Cold/Flu Symptoms Stated Complaint: COUGH;RUNNY NOSE Nursing Triage Note: AMB TO ROOM WITH COUGH AND CONGESTION. WAS SEEN IN ED YESTERDAY FOR. REPORTS SHE COUGHED ALL NIGHT. Source: patient Exam Limitations: no limitations History of Present Illness Date Seen by Provider: Aug 18, 2018 Time Seen by Provider: 08:40 Initial Comments Here with complaint of coughing all night long. She was seen yesterday and had two-view chest x-ray did not show any pneumonia. She was started on prednisone and azithromycin. She didn't fill that prescription. She has taken her dose today as well. She is concerned because she coughed all night long and didn't have anything for that. She is asking for a breathing treatment and admission if possible. No fevers today. No respiratory distress today. She drove herself here. She does have albuterol metered-dose inhaler at home and she is intermittently using that. Timing/Duration: yesterday, getting worse Severity/Quality: moderate, dry cough Modifying Factors: Worse With Activity, Worse With Coughing; Improves With Rest Associated Symptoms: cough, nasal congestion, shortness of breath, wheezing Allergies and Home Medications Allergies Coded Allergies: No Known Drug Allergies (Unverified , 02/11/14) Home Medications Acyclovir 5 Gm Cream.gm., TOP Q4H PRN for FEVER BLISTER, (Reported) Albuterol Sulfate 1 Puff Puff, 2 PUFF IH Q4H PRN for DYSPNEA 1 PUFF = 90 MCG Prescribed by: GABBIE AZUL on 03/20/182106 Alprazolam 1 Mg Tablet, 1 MG PO HS, (Reported) Amoxicillin 500 Mg Tablet, 500 MG PO QID, (Reported) Aspirin 325 Mg Tablet.dr, 325 MG PO HS, (Reported) Azithromycin 250 Mg Tablet, 250 MG PO UD TAKE 2 TABLETS ON DAY ONE THEN TAKE 1 TABLET DAILY FOR FOUR MORE DAYS Prescribed by: DAVID SINGH on 08/17/18 1410 Cyclosporine 1 Each Droperette, 1 DROP OU BID, (Reported) Estradiol 42.5 Gm Cream.appl, 1 APPLIC VG DAILY PRN for DISCOMFORT, (Reported) Fentanyl 1 Each Patch.td72, 100 MCG TD Q72H Prescribed by: SERENA CABRERA on 04/03/16 0723 Gabapentin 600 Mg Tablet, 1,800 MG PO BID, (Reported) TAKES 3 (600MG) TABLETS Hydrocodone Bit/Acetaminophen 1 Each Tablet, 1 EACH PO Q4H PRN for PAIN, ( Reported) Metformin HCl 500 Mg Tablet, 500 MG PO BID, (Reported) Mineral Oil/Petrolatum,White 3.5 Gm Oint...g., OU HS, (Reported) Ondansetron 4 Mg Tab.rapdis, 4-8 MG PO Q8H PRN for NAUSEA/VOMITING-1ST LINE, ( Reported) Oxycodone HCl/Acetaminophen 1 Each Tablet, 1 EACH PO BID Prescribed by: SERENA CABRERA on 04/03/16 0724 Polyethylene Glycol 3350 119 Gm Powder, 17 GM PO DAILY PRN for CONSTIPATION, ( Reported) Pramipexole Di-HCl 0.125 Mg Tablet, 0.125 MG PO 1599,1999, (Reported) Prednisone 20 Mg Tab, 40 MG PO DAILY Prescribed by: DAVID SINGH on 08/17/18 1410 Simvastatin 40 Mg Tablet, 40 MG PO HS, (Reported) Solifenacin Succinate 10 Mg Tablet, 10 MG PO HS, (Reported) Sucralfate 1 Gm Tablet, 1 GM PO BID, (Reported) Zolpidem Tartrate 12.5 Mg Tab.mphase, 12.5 MG PO HS, (Reported) Patient Home Medication List Home Medication List Reviewed: Yes Review of Systems Review of Systems Constitutional: see HPI; No chills, No fever EENTM: see HPI Respiratory: cough, short of breath, wheezing Cardiovascular: no symptoms reported Gastrointestinal: No abdominal pain, No nausea, No vomiting Skin: no symptoms reported Psychiatric/Neurological: No Symptoms Reported Past Srukvym-Lzuvpd-Xpctzr Hx Past Med/Social Hx: Reviewed Nursing Past Med/Soc Hx Patient Social History Alcohol Use: Occasionally Uses Recreational Drug Use: No Smoking Status: Never a Smoker 2nd Hand Smoke Exposure: No Recent Foreign Travel: No Contact w/Someone Who Travel: No Recent Infectious Disease Expo: No Recent Hopitalizations: Yes (january 24 right knee replacement, SEPT FOR 5 DAYS (LUNG ISSUES)) Immunizations Up To Date Tetanus Booster (TDap): More than 5yrs Date of Pneumonia Vaccine: Oct 04, 2011 Date of Influenza Vaccine: Jul 06, 2013 Seasonal Allergies Seasonal Allergies: No Past Medical History Surgeries: Yes (CHIARI MALFORMATION REPAIR. EGD'S AND COLONOSCOPIES--LAST ONES 1 MONTH AGO.) Abdominal Respiratory: Yes Pneumonia Cardiac: Yes Neurological: Yes (CHIARI MALFORMATION surgically fixed) Reproductive Disorders: No Female Reproductive Disorders: Denies Sexually Transmitted Disease: No HIV/AIDS: No Gastrointestinal: Yes ("COMPLETE ABD RECONSTRUCTION" 2010. CHRONIC ABDOMINAL PAIN) Chronic Constipation, Chronic Diarrhea Musculoskeletal: Yes (CHRONIC GENERALIZED PAIN--NARCOTIC DEPENDENT) Arthritis, Chronic Back Pain Endocrine: Yes (MASS LT THYROID REMOVED 01/01/2013) Cancer: No Psychosocial: No Integumentary: No Blood Disorders: No Adverse Reaction/Blood Tranf: No Family Medical History Reviewed Nursing Family Hx Cancer 03 FATHER (PANCREATIC, PASSED AT 65 FROM THIS) Cataract 03 MOTHER Dementia 03 MOTHER Family history: Arthritis 03 MOTHER Family history: Cardiovascular disease 03 MOTHER (HIGH CHOLESTEROL, BALOON ARTERIES 2 TIMES) Hearing loss 03 MOTHER Hypercholesterolemia 03 MOTHER Cancer Physical Exam Vital Signs - First Documented 08/18/18 08:37 Temp 96.9 Pulse 89 Resp 18 B/P (MAP) 149/71 (97) Pulse Ox 94 O2 Delivery Room Air Capillary Refill : Less Than 3 Seconds Height: 5'6.00" Weight: 225lbs. 0.0oz. 102.042983bb; 34.7 BMI Method:Stated General Appearance: WD/WN, no apparent distress HEENT: PERRL/EOMI, pharynx normal Neck: full range of motion, supple Respiratory: no accessory muscle use, wheezing (a few trace wheezes), other ( coarse cough) Cardiovascular: regular rate, rhythm, no murmur Gastrointestinal: non tender, soft Neurologic/Psychiatric: alert, oriented x 3 Skin: normal color, warm/dry Progress/Results/Core Measures Suspected Sepsis Recent Fever Within 48 Hours: No Infection Criteria Present: None New/Unexplained Altered Menta: No Sepsis Screen: No Definite Risk SIRS Temperature:96.9 Pulse: 89 Respiratory Rate: 18 Blood Pressure 149 /71 Mean: 97 Results/Orders My Orders Orders - DAVID SINGH MD Albuterol/Ipra Inhalation Soln (Duoneb I (08/18/18 09:00) Svn Small Volume Nebulizer (08/18/18 08:53) Rx-Promethazine W/Codeine Syr (Rx-Phener (08/18/18 09:00) Rx-Promethazine W/Codeine Syr (Rx-Phener (08/18/18 09:15) Medications Given in ED Current Medications Medications Dose Ordered Sig/Eloise Route Start Time Stop Time Status Last Admin Dose Admin Albuterol/ Ipratropium 3 ml ONCE ONCE INH 08/18/18 09:00 08/18/18 09:01 DC 08/18/18 09:00 3 ML Vital Signs/I&O 08/18/18 08/18/18 08:37 09:00 Temp 96.9 Pulse 89 Resp 18 B/P (MAP) 149/71 (97) Pulse Ox 94 95 O2 Delivery Room Air Room Air Capillary Refill : Less Than 3 Seconds Blood Pressure Mean: 97 Progress Note : Progress Note Seen and evaluated. Duo neb therapy initiated. We will see if we can get go pack for Phenergan with codeine. Monitor patient. 924: We were able to get a go pack of Phenergan with codeine. She is feeling better after nebulizer. Discharged home with return precautions. Patient verbalize understanding instructions and agreement with plan. Departure Impression Primary Impression: Bronchitis Disposition: HOME, SELF-CARE Condition: Stable Departure-Patient Inst. Decision time for Depature: 09:30 Referrals: KATHLEEN CABRERA MD (PCP/Family) Primary Care Physician Patient Instructions: Acute Bronchitis, Adult (DC) Add. Discharge Instructions: All discharge instructions reviewed with patient and/or family. Voiced understanding. Take medications as directed. Follow-up with your DrJoshua in one to 2 days for recheck. You should use your albuterol inhaler 2 puffs every 4 hours as needed for cough. Continue other medications as directed. Return for worsening, fever , vomiting, weakness, breathing problems or other concerns as needed. Scripts Promethazine HCl/Codeine (Promethazine-Codeine Syrup) 118 Ml Syrup 60 ML PO Q6H, #60 ML Prov: DAVID SINGH MD 08/18/18 DAVID SINGH MD Aug 18, 2018 09:03
[2018-08-18] MEDS ORDERED: RX-PROMETHAZINE W/CODEINE SYRUP 30 ML BTL PO SCH (09:15)
[2018-08-18] MEDS ORDERED: CODE118S4 PO (09:32)
[2018-08-18 09:36] VITALS: BP 158/6
== END 2018-08-18 09:36 | disposition home or self-care (01) ==
LOC: EDUNIT# 08:31 → ER 08:32
DX: J40 Bronchitis, not specified as acute or chronic (principal); Z79.51 Long term (current) use of inhaled steroids; Z79.82 Long term (current) use of aspirin; Z79.84 Long term (current) use of oral hypoglycemic drugs; Z79.52 Long term (current) use of systemic steroids; Z96.651 Presence of right artificial knee joint; Z87.01 Personal history of pneumonia (recurrent); Z87.19 Personal history of other diseases of the digestive system; Z90.89 Acquired absence of other organs; Z80.0 Family history of malignant neoplasm of digestive organs; Z82.49 Family history of ischemic heart disease and other diseases of the circulatory system
CPT/HCPCS: 94640; 99283

== ENCOUNTER 2018-09-02 13:30 | Outpatient (RCR) | payer MEDICARE, OTHER ==
[~2018-09-02 13:30] MED LIST changes: +CODE118S4 PO
== END 2018-09-02 14:16 | disposition home or self-care (01) ==
PROVIDERS: ATTEND Orthopaedic Surgery
DX: Z47.1 Aftercare following joint replacement surgery (principal); Z96.651 Presence of right artificial knee joint

== ENCOUNTER 2018-10-19 14:16 | Emergency (ER) | payer MEDICARE, OTHER ==
[~2018-10-19] VITALS: Ht 167.6 cm; Wt 104.3 kg
[~2018-10-19 14:16] MED LIST changes: +GBPN600T PO; +METR-145 PO; -METR-197 PO
--- OUTSIDE RECORDS SUMMARY | 2018-10-19 14:21 | XMS REPORT | Clinical Summary ---
Author Author [facility] Organization [facility] Address Unknown Phone Unavailable Care Team Providers Care Change Coordinator Name Role Phone Judah Lopez RN Unavailable Unavailable Brett Alcantar MD Unavailable Kumar Diggs MD Unavailable Doctor, Miscellaneous Unavailable Unavailable Barbara Pelaez MD Unavailable Adolfo Cardenas MD PCP Fausto Hsu Unavailable Unavailable Nallely Gomez MD Unavailable Silvano Potts MD Unavailable Sarwat Lozano APRN Unavailable Unavailable Aileen Jacobson MD Unavailable Unavailable Leonid Santos MD Unavailable Unavailable Danitza Rios MA,CCC-SITE SAFETY MANAGER Unavailable Unavailable Gela Cleary RN Unavailable Unavailable Hossein Minaya MD Unavailable Deonna Cunningham RN Unavailable Unavailable Anila Valencia RN Unavailable Unavailable Daniel Bond RN Unavailable Unavailable Yolette Moore MA,CCC-SITE SAFETY MANAGER Unavailable Unavailable Bryan Romero Unavailable Unavailable Nallely Tracy MA,CCC-SITE SAFETY MANAGER Unavailable Unavailable Haresh Kathleen MD Unavailable [...] in the Health Information Management department at [phone] for further assistance in locating additional records.[facility] Allergies No Known Allergies Medications End Date [...] 8 tabletIndications: daily. Incomplete bladder emptying Active fluticasone-vilanterol(+) Inhale one 1 Inhaler 11 (BREO ELLIPTA) 100-25 mcg puff by mouth 8 inhalation disk into the lungs daily. Active albuterol (PROAIR HFA, Inhale two 1 Inhaler 11 VENTOLIN HFA, OR puffs by 9 PROVENTIL HFA) 90 mouth into mcg/actuation inhaler the lungs every 6 hours as needed for Wheezing or Shortness of Breath. Shake well before use. 09/23/2018 Discontinued albuterol (PROAIR HFA, Inhale 2 0 VENTOLIN HFA, OR puffs by PROVENTIL HFA) 90 mouth into mcg/actuation inhaler the lungs every 6 hours as needed for Wheezing or Shortness of Breath. Shake well before use. Active Problems Problem Noted Date Palpitations 04/01/2018 [...] Overview: Added automatically from request for surgery [id number] Gastroesophageal reflux disease 11/18/2017 Overview: Added automatically from request for surgery [id number] Diarrhea 11/18/2017 Overview: Added automatically from request for surgery [id number] Incomplete bladder emptying 05/06/2017 Overview: - Increased [...] Encounters Care Team Description Date Type Specialty Elmira Zapata Medication Follow-up 09/23/2018 Telephone Pulmonology Elmira Zapata 09/23/2018 Orders Only Pulmonology Elder Thompson MD 09/18/2018 Hospital Encounter Elder Thompson MD 09/17/2018 Hospital Encounter Elmira Zapata Other 08/27/2018 Telephone Pulmonology Elder Thompson MD 08/13/2018 Hospital Radiology Encounter Elder Thompson MD [...] Chetan Hunter MD 07/22/2018 Hospital Radiology Encounter from Last 3 Months Family History Medical [...] Taken Vital Sign Reading 07/22/2018 12:50 PM FENCE MACHINE OPERATOR Blood Pressure 131/76 07/22/2018 12:50 PM FENCE MACHINE OPERATOR Pulse 76 07/22/2018 12:50 PM FENCE MACHINE OPERATOR Temperature 36.7 C (98 F) 07/22/2018 12:50 PM FENCE MACHINE OPERATOR Respiratory Rate 16 07/22/2018 12:50 PM FENCE MACHINE OPERATOR Oxygen Saturation 96% - Inhaled Oxygen - Concentration 07/22/2018 12:50 PM FENCE MACHINE OPERATOR Weight 105.2 kg (232 lb) 07/22/2018 12:50 PM FENCE MACHINE OPERATOR Height 167 cm (5' 5.75") 07/22/2018 12:50 PM FENCE MACHINE OPERATOR Body Mass Index 37.73 Plan of Treatment Health Maintenance Due Date Last Done Comments HEPATITIS C SCREENING 1952 DTAP/TDAP VACCINES ( - 1970 Tdap) SHINGLES RECOMBINANT 2002 VACCINE [...] Lot Implanted Type Area Manufactur er 10/22/2017 [id number] / [id number] / [id number] Cement Bone Smartset Gentamicin Right: Knee J and J 40gm High Viscosity HEALTHCARE Implanted: Qty: 2 on 01/25/2016 by : Maricel Mandujano MD SPINE 11/22/2025 [id number] / [id number] / [id number] Tray Tibial Sigma 2.5 Knee Cocr Right: Knee JandJ:DEPU Cemented Modular Y:DEPUY Implanted: Qty: 1 on 01/25/2016 by Maricel Franco MD 11/22/2020 [id number] / [id number] / [id number] Dome Patellar 38mm Pfc Sigma Small Right: Knee JandJ:DEPU Oval Knee Uhmwpe 3 Peg Y:DEPUY Implanted: Qty: 1 on 01/25/2016 by Maricel Franco MD 08/24/2025 [id number] / [id number] / [id number] Component Femoral 2.5 Knee Right Right: Knee JandJ:DEPU Cemented Posterior Y:DEPUY Implanted: Qty: 1 on 01/25/2016 by Maricel Franco MD 07/24/2020 [id number] / [id number] / [id number] Insert Tibial 2.5 10mm Knee Gvf Right: Knee JandJ:DEPU Stabilize Sigma Y:DEPUY Implanted: Qty: 1 on 01/25/2016 by Maricel Franco MD Procedures Comments Procedure Name Priority Date/Time Associated Diagnosis PFT METHACHOLINE Routine 09/18/2018 Shortness of breath CHALLENGE 8:27 AM FENCE MACHINE OPERATOR CT CHEST WO CONTRAST Routine 08/13/2018 Shortness of breath 12:52 PM FENCE MACHINE OPERATOR SLE POLYSOMNOGRAPHY 4 OR Routine 08/11/2018 Obstructive sleep apnea MORE PARAMETERS 8:10 AM FENCE MACHINE OPERATOR (adult) (pediatric) SLEEP STUDY-SCAN 08/10/2018 12:00 AM FENCE MACHINE OPERATOR PFT COMPLETE PULM Routine 07/22/2018 Shortness of breath FUNCTION 10:53 AM FENCE MACHINE OPERATOR CHEST 2 VIEWS Routine 07/22/2018 SOB (shortness of breath) 10:36 AM FENCE MACHINE OPERATOR from Last 3 Months Results * PFT METHACHOLINE CHALLENGE (09/18/2018 8:27 AM FENCE MACHINE OPERATOR) FVC-Pre 2.03 L [facility] FVC-%Pred-pre 61 % [facility] FVC-Post 2.05 L [facility] FVC-%Pred-Post 61 % [facility] FEV1-Pre 1.76 L [facility] FEV1-%Pred-Pre 69 % [facility] FEV1-Post 1.72 L [facility] FEV1-%Pred-Post 67 % [facility] FEV1/FVC-Pre 87 % [facility] [id number] 67 % [facility] [id number]-Pmy 2.56 L/sec [facility] NIZ1210-%Pred-Pre 117 % [facility] [id number]-Novx 2.26 L/sec [facility] IRH0635-%Pred-Post 104 % [facility] PEF-Post 320.8 L/min [facility] [id number]-Wpc 78 % [facility] Narrative Performed At Performing Organization Address City/State/Zipcode Phone Number [facility] [address] [place] [address] * CT CHEST WO CONTRAST (08/13/2018 12:52 PM FENCE MACHINE OPERATOR) Impressions Performed At 1. No significant pulmonary [...] Interface, Radiant Results - 08/13/2018 3:09 PM FENCE MACHINE OPERATOR CT Chest Clinical Indication: Dyspnea on exertion. [...] RESULTS * SLEEP STUDY-SCAN (08/10/2018 12:00 AM FENCE MACHINE OPERATOR) Narrative Performed At Ordered by an unspecified provider. * PFT COMPLETE PULM FUNCTION (07/22/2018 10:53 AM FENCE MACHINE OPERATOR) FVC-Pre 2.15 L [facility] FVC-%Pred-pre 64 % [facility] FEV1-Pre 1.89 L [facility] FEV1-%Pred-Pre 73 % [facility] FEV1/FVC-Pre 88 % [facility] [id number] 67 % [facility] [id number]-Rss 3.03 L/sec [facility] NGN3566-%Pred-Pre 139 % [facility] RVPleth-Pre 1.71 [...] MAIN DLVA-#SD 1.526 ml/min/mmHg/L [facility] AEL5CGE-Fgi 71 % [facility] Performing Organization Address City/State/Zipcode Phone Number [facility] [address] [place] [address] * CHEST 2 VIEWS (07/22/2018 10:36 AM FENCE MACHINE OPERATOR) Impressions Performed At Stable chest radiograph with [...] Interface, Radiant Results - 07/22/2018 11:55 AM FENCE MACHINE OPERATOR CHEST 2 VIEWS History: 68-year-old female with [...] xxxxxxxxxxx Medicare PART A AND B CIGNA CIGRISA xxxxxxxxxx Medicare MEDICARE SUPPLEMENT Advance Directives Patient has advance care planning documents, and code status on file. For more information, please contact: [facility] [address] [place] [address] Date Inactivated Comments Code Status Date Activated [...]
--- OUTSIDE RECORDS SUMMARY | 2018-10-19 14:22 | XMS REPORT | Encounter Summary ---
Author Author [facility] Address Unknown Phone Unavailable Care Team Providers Care Neuropathologist Name Role Phone Judah Lopez RN Unavailable Unavailable Brett Alcantar MD Unavailable Kumar Diggs MD Unavailable Doctor, Miscellaneous Unavailable Unavailable Barbara Pelaez MD Unavailable Adolfo Cardenas MD PCP Fausto Hsu Unavailable Unavailable Nallely Gomez MD Unavailable Silvano Potts MD Unavailable Sarwat Lozano APRN Unavailable Unavailable Aileen Jacobson MD Unavailable Unavailable Leonid Santos MD Unavailable Unavailable Danitza Rios MA,CCC-POWDER LINE REPAIRER Unavailable Unavailable Gela Cleary RN Unavailable Unavailable Hossein Minaya MD Unavailable Deonna Cunningham RN Unavailable Unavailable Anila Valencia RN Unavailable Unavailable Daniel Bond RN Unavailable Unavailable Yolette Moore MA,CCC-POWDER LINE REPAIRER Unavailable Unavailable Bryan Romero Unavailable Unavailable Nallely Tracy MA,CCC-POWDER LINE REPAIRER Unavailable Unavailable Haresh Kathleen MD Unavailable Teetee Taylor RN Unavailable Unavailable Bonnie Goss RN Unavailable Unavailable Maricel Albrecht MD Unavailable Kiarra Patrick RN Unavailable Unavailable Evelio Chris RN 2 Unavailable Todd Avendano MD Unavailable Tatiana Tim PA-C Unavailable Encounter Details Care Team Description Date Type Department Elder Thompson MD [address] [facility] [place] [address] [place], [place] [id number] 09/17/2018 [facility] [address] [place] [address] Social History Date Tobacco Use Types Packs/Day [...] tablet by mouth at bedtime as needed. 09/23/2018 albuterol (PROAIR HFA, Inhale 2 0 VENTOLIN HFA, OR puffs by PROVENTIL HFA) 90 mouth into mcg/actuation inhaler the lungs every 6 hours as needed for Wheezing or Shortness of Breath. Shake well before use. as of this encounter Plan of Treatment Not on fileas of this encounter Procedures Comments Procedure Name Priority Date/Time Associated Diagnosis PFT METHACHOLINE Routine 09/18/2018 Shortness of breath CHALLENGE 8:27 AM SMOKE JUMPER in this encounter Results * PFT METHACHOLINE CHALLENGE (09/18/2018 8:27 AM SMOKE JUMPER) FVC-Pre 2.03 L [facility] FVC-%Pred-pre 61 % [facility] FVC-Post 2.05 L [facility] FVC-%Pred-Post 61 % [facility] FEV1-Pre 1.76 L [facility] FEV1-%Pred-Pre 69 % [facility] FEV1-Post 1.72 L [facility] FEV1-%Pred-Post 67 % [facility] FEV1/FVC-Pre 87 % [facility] [id number] 67 % [facility] [id number]-Inp 2.56 L/sec [facility] HYH2776-%Pred-Pre 117 % [facility] [id number]-Uzyd 2.26 L/sec [facility] TIK2781-%Pred-Post 104 % [facility] PEF-Post 320.8 L/min [facility] [id number]-Agr 78 % [facility] Narrative Performed At Performing Organization Address City/State/Zipcode Phone Number [facility] [address] [place] [address] in this encounter Visit Diagnoses Diagnosis Shortness of breath - Primary in this encounter
--- OUTSIDE RECORDS SUMMARY | 2018-10-19 14:22 | XMS REPORT | Encounter Summary ---
Author Author [facility] Organization [facility] Address Unknown Phone Unavailable Care Team Providers Care Counter Caser Name Role Phone Judah Lopez RN Unavailable Unavailable Brett Alcantar MD Unavailable Kumar Diggs MD Unavailable Doctor, Miscellaneous Unavailable Unavailable Barbara Pelaez MD Unavailable Adolfo Cardenas MD PCP Fausto Hsu Unavailable Unavailable Nallely Gomez MD Unavailable Silvano Potts MD Unavailable Sarwat Lozano APRN Unavailable Unavailable Aileen Jacobson MD Unavailable Unavailable Leonid Santos MD Unavailable Unavailable Danitza Rios MA,CCC-LEAD SYSTEMS ANALYST Unavailable Unavailable Gela Cleary RN Unavailable Unavailable Hossein Minaya MD Unavailable Deonna Cunningham RN Unavailable Unavailable Anila Valencia RN Unavailable Unavailable Daniel Bond RN Unavailable Unavailable Yolette Moore MA,CCC-LEAD SYSTEMS ANALYST Unavailable Unavailable Bryan Romero Unavailable Unavailable Nallely Tracy MA,CCC-LEAD SYSTEMS ANALYST Unavailable Unavailable Haresh Kathleen MD Unavailable Teetee Taylor RN Unavailable Unavailable Bonnie Goss RN Unavailable Unavailable Maricel Albrecht MD Unavailable Kiarra Patrick RN Unavailable Unavailable Evelio Chris RN 2 Unavailable Todd Avendano MD Unavailable Tatiana Tim PA-C Unavailable Reason for Visit * Reason Comments Other Encounter Details Care Team Description Date Type Department Elmira Zapata Other 08/27/2018 Telephone [facility] - Internal Medicine [address] [facility] [place] [address] Social History Date Tobacco Use [...] Miscellaneous Notes * Telephone Encounter - Aileen Borrero RN - 08/27/2018 2:23 PM STRIPPING AND BOOKING MACHINE OPERATOR Pt notified of no evidence of GRACE on PSG. Pt requesting to move up appt earlier from October with Dr. Zapata. Message sent to scheduling. PPING AND BOOKING MACHINE OPERATOR in this encounter Plan of Treatment Not on fileas of this encounter Visit Diagnoses Not on filein this encounter
--- OUTSIDE RECORDS SUMMARY | 2018-10-19 14:22 | XMS REPORT | Encounter Summary ---
Author Author [facility] Organization [facility] Address Unknown Phone Unavailable Care Team Providers Care Master Ship Name Role Phone Judah Lopez RN Unavailable Unavailable Brett Alcantar MD Unavailable Kumar Diggs MD Unavailable Doctor, Miscellaneous Unavailable Unavailable Barbara Pelaez MD Unavailable Adolfo Cardenas MD PCP Fausto Hsu Unavailable Unavailable Nallely Gomez MD Unavailable Silvano Potts MD Unavailable Sarwat Lozano APRN Unavailable Unavailable Aileen Jacobson MD Unavailable Unavailable Leonid Santos MD Unavailable Unavailable Danitza Rios MA,CCC-DIRECTOR OF DIAGNOSTIC IMAGING Unavailable Unavailable Gela Cleary RN Unavailable Unavailable Hossein Minaya MD Unavailable Deonna Cunningham RN Unavailable Unavailable Anila Valencia RN Unavailable Unavailable Daniel Bond RN Unavailable Unavailable Yolette Moore MA,CCC-DIRECTOR OF DIAGNOSTIC IMAGING Unavailable Unavailable Bryan Romero Unavailable Unavailable Nallely Tracy MA,CCC-DIRECTOR OF DIAGNOSTIC IMAGING Unavailable Unavailable Haresh Kathleen MD Unavailable Teetee Taylor RN Unavailable Unavailable Bonnie Goss RN Unavailable Unavailable Maricel Albrecht MD Unavailable Kiarra Patrick RN Unavailable Unavailable Evelio Chris RN 2 Unavailable Todd Avendano MD Unavailable Tatiana Tim PA-C Unavailable Reason for Referral * Radiology Services (Routine) Referred By Contact Referred To Contact Status Reason Specialty Diagnoses / Procedures Elder Thompson MD [address] [facility] [address] [place] [address] [address] [place] [address] No Auth Needed Radiology Diagnoses Shortness of breath P rocedures CT CHEST WO CONTRAST * Radiology Services (Routine) Referred By Contact Referred To Contact Status Reason Specialty Diagnoses / Procedures Elder Thompson MD [address] [facility] [address] [place] [address] [address] [place] [address] No Auth Needed Radiology Diagnoses Shortness of breath P rocedures CT CHEST WO CONTRAST Reason for Visit * Radiology Services (Routine) Referred By Contact Referred To Contact Status Reason Specialty Diagnoses / Procedures Elder Thompson MD [address] [facility] [address] [place] [address] [address] [place] [address] No Auth Needed Radiology Diagnoses Shortness of breath P rocedures CT CHEST WO CONTRAST Encounter Details Care Team Description Date Type Department Elder Thompson MD [address] [facility] [address] [place] [address] [phone] 08/13/2018 Hospital [facility] En[facility] [address] [place] [address] Social History Date Tobacco Use Types Packs/Day [...] Routine 08/13/2018 Shortness of breath 12:52 PM ASSEMBLER MUSICAL INSTRUMENTS in this encounter Results * CT CHEST WO CONTRAST (08/13/2018 12:52 PM ASSEMBLER MUSICAL INSTRUMENTS) Impressions Performed At 1. No significant pulmonary [...] Interface, Radiant Results - 08/13/2018 3:09 PM ASSEMBLER MUSICAL INSTRUMENTS CT Chest Clinical Indication: Dyspnea on exertion. [...]
--- OUTSIDE RECORDS SUMMARY | 2018-10-19 14:22 | XMS REPORT | Encounter Summary ---
Author Author [facility] Organization [facility] Address Unknown Phone Unavailable Care Team Providers Care Platen Builder Up Name Role Phone Judah Lopez RN Unavailable Unavailable Brett Alcantar MD Unavailable Kumar Diggs MD Unavailable Doctor, Miscellaneous Unavailable Unavailable Barbara Pelaez MD Unavailable Adolfo Cardenas MD PCP Fausto Hsu Unavailable Unavailable Nallely Gomez MD Unavailable Silvano Potts MD Unavailable Sarwat Lozano APRN Unavailable Unavailable Aileen Jacobson MD Unavailable Unavailable Leonid Santos MD Unavailable Unavailable Danitza Rios MA,CCC-LITHOGRAPHIC PLATE MAKER APPRENTICE Unavailable Unavailable Gela Cleary RN Unavailable Unavailable Hossein Minaya MD Unavailable Deonna Cunningham RN Unavailable Unavailable Anila Valencia RN Unavailable Unavailable Daniel Bond RN Unavailable Unavailable Yolette Moore MA,CCC-LITHOGRAPHIC PLATE MAKER APPRENTICE Unavailable Unavailable Bryan Romero Unavailable Unavailable Nallely Tracy MA,CCC-LITHOGRAPHIC PLATE MAKER APPRENTICE Unavailable Unavailable Haresh Kathleen MD Unavailable Teetee Taylor RN Unavailable Unavailable Bonnie Goss RN Unavailable Unavailable Maricel Albrecht MD Unavailable Kiarra Patrick RN Unavailable Unavailable Evelio Chris RN 2 Unavailable Todd Avendano MD Unavailable Tatiana Tim PA-C Unavailable Reason for Visit * Consult, Test & Treat (Routine) Referred By Contact Referred To Contact Status Reason Specialty Diagnoses / Procedures Elder Thompson MD [address] [facility] [address] [place] [address] Rb - Sleep Disordr Ctr [place] [address] [place] [address] No Auth Needed Specialty Services Sleep Center Diagnoses Required GRACE (obstructive sleep apnea) Encounter Details Care Team Description Date Type Department Elder Thompson MD [address] [facility] [address] [place], [place] [id number] Obstructive sleep apnea (adult) (pediatric) 08/10/2018 [facility] Sleep Disorder Encounter [facility] [address] [place] [address] Social History Date Tobacco Use Types Packs/Day [...] Obstructive sleep apnea MORE PARAMETERS 8:10 AM MANAGER PARKING (adult) (pediatric) SLEEP STUDY-SCAN 08/10/2018 12:00 AM MANAGER PARKING in this encounter Results * SLEEP STUDY-SCAN (08/10/2018 12:00 AM MANAGER PARKING) Narrative Performed At Ordered by an unspecified provider. in this encounter Visit Diagnoses Diagnosis Obstructive sleep apnea (adult) (pediatric) - Primary in this encounter
--- OUTSIDE RECORDS SUMMARY | 2018-10-19 14:22 | XMS REPORT | Encounter Summary ---
Author Author [facility] Organization [facility] Address Unknown Phone Unavailable Care Team Providers Care Care Transition Mgr Name Role Phone Judah Lopez RN Unavailable Unavailable Brett Alcantar MD Unavailable Kumar Diggs MD Unavailable Doctor, Miscellaneous Unavailable Unavailable Barbara Pelaez MD Unavailable Adolfo Cardenas MD PCP Fausto Hsu Unavailable Unavailable Nallely Gomez MD Unavailable Silvano Potts MD Unavailable Sarwat Lozano APRN Unavailable Unavailable Aileen Jacobson MD Unavailable Unavailable Leonid Santos MD Unavailable Unavailable Danitza Rios MA,CCC-TEST BORER HELPER Unavailable Unavailable Gela Cleary RN Unavailable Unavailable Hossein Minaya MD Unavailable Deonna Cunningham RN Unavailable Unavailable Anila Valencia RN Unavailable Unavailable Daniel Bond RN Unavailable Unavailable Yolette Moore MA,CCC-TEST BORER HELPER Unavailable Unavailable Bryan Romero Unavailable Unavailable Nallely Tracy MA,CCC-TEST BORER HELPER Unavailable Unavailable Haresh Kathleen MD Unavailable Teetee Taylor RN Unavailable Unavailable Bonnie Goss RN Unavailable Unavailable Maricel Albrecht MD Unavailable Kiarra Patrick RN Unavailable Unavailable Evelio Chris RN 2 Unavailable Todd Avendano MD Unavailable Tatiana Tim PA-C Unavailable Encounter Details Care Team Description Date Type Department Elder Thompson MD [address] [facility] [place] [address] [place] [address] 09/18/2018 [facility] [address] [place] [address] Social History Date Tobacco Use Types Packs/Day [...]
--- OUTSIDE RECORDS SUMMARY | 2018-10-19 14:22 | XMS REPORT | Encounter Summary ---
Author Author [facility] Organization [facility] Address Unknown Phone Unavailable Care Team Providers Care Coagulating Drying Supervisor Name Role Phone Judah Lopez RN Unavailable Unavailable Brett Alcantar MD Unavailable Kumar Diggs MD Unavailable Doctor, Miscellaneous Unavailable Unavailable Barbara Pelaez MD Unavailable Adolfo Cardenas MD PCP Fausto Hsu Unavailable Unavailable Nallely Gomez MD Unavailable Silvano Potts MD Unavailable Sarwat Lozano APRN Unavailable Unavailable Aileen Jacobson MD Unavailable Unavailable Leonid Santos MD Unavailable Unavailable Danitza Rios MA,CCC-MANAGER OF SUPPLY CHAIN Unavailable Unavailable Gela Cleary RN Unavailable Unavailable Hossein Minaya MD Unavailable Deonna Cunningham RN Unavailable Unavailable Anila Valencia RN Unavailable Unavailable Daniel Bond RN Unavailable Unavailable Yolette Moore MA,CCC-MANAGER OF SUPPLY CHAIN Unavailable Unavailable Bryan Romero Unavailable Unavailable Nallely Tracy MA,CCC-MANAGER OF SUPPLY CHAIN Unavailable Unavailable Haresh Kathleen MD Unavailable Teetee Taylor RN Unavailable Unavailable Bonnie Goss RN Unavailable Unavailable Maricel Albrecht MD Unavailable Kiarra Patrick RN Unavailable Unavailable Evelio Chris RN 2 Unavailable Todd Avendano MD Unavailable Tatiana Tim PA-C Unavailable Encounter Details Care Team Description Date Type Department Elmira Zapata 09/23/2018 Orders Only [facility] Physicians - Internal Medicine [address] [facility] [place] [address] Social History Date Tobacco Use [...]
--- OUTSIDE RECORDS SUMMARY | 2018-10-19 14:22 | XMS REPORT | Encounter Summary ---
Author Author [facility] Organization [facility] Address Unknown Phone Unavailable Care Team Providers Care Pbx Inspector Name Role Phone Judah Lopez RN Unavailable Unavailable Brett Alcantar MD Unavailable Kumar Diggs MD Unavailable Doctor, Miscellaneous Unavailable Unavailable Barbara Pelaez MD Unavailable Adolfo Cardenas MD PCP Fausto Hsu Unavailable Unavailable Nallely Gomez MD Unavailable Silvano Potts MD Unavailable Sarwat Lozano APRN Unavailable Unavailable Aileen Jacobson MD Unavailable Unavailable Leonid Santos MD Unavailable Unavailable Danitza Rios MA,CCC-INSPECTOR WATER POLLUTION CONTROL Unavailable Unavailable Gela Cleary RN Unavailable Unavailable Hossein Minaya MD Unavailable Deonna Cunningham RN Unavailable Unavailable Anila Valencia RN Unavailable Unavailable Daniel Bond RN Unavailable Unavailable Yolette Moore MA,CCC-INSPECTOR WATER POLLUTION CONTROL Unavailable Unavailable Bryan Romero Unavailable Unavailable Nallely Tracy MA,CCC-INSPECTOR WATER POLLUTION CONTROL Unavailable Unavailable Haresh Kathleen MD Unavailable Teetee Taylor RN Unavailable Unavailable Bonnie Goss RN Unavailable Unavailable Maricel Albrecht MD Unavailable Kiarra Patrick RN Unavailable Unavailable Evelio Chris RN 2 Unavailable Todd Avendano MD Unavailable Tatiana Tim PA-C Unavailable Reason for Visit * Reason Comments Medication Follow-up Encounter Details Care Team Description Date Type Department Elmira Zapata Medication Follow-up 09/23/2018 Telephone [facility] Physicians - Internal Medicine [address] [facility] [place] [address] Social History Date Tobacco Use [...] Telephone Encounter - Aileen Borrero RN - 09/23/2018 8:38 AM TECHNICIANS AND TRADES WORKERS Pt notified of results of methacholine challenge testing. Pt instructed to continue with Breo Ellipta daily and use albuterol PRN. Pt is scheduled for follow up on 10/28/18. NICIANS AND TRADES WORKERS in this encounter Plan of Treatment Not on fileas of this encounter Visit Diagnoses Not on filein this encounter
--- OUTSIDE RECORDS SUMMARY | 2018-10-19 14:23 | XMS REPORT | Clinical Summary ---
Author Author [facility] Organization [facility] Address Unknown Phone Unavailable Care Team Providers Care Stock Clerk Name Role Phone Adolfo Cardenas MD PCP [...] Overview: Added automatically from request for surgery [id number] Gastroesophageal reflux disease 11/18/2017 Overview: Overview: Added automatically from request for surgery [id number] Hepatic steatosis 10/30/2017 Overview: Overview: Identified on CT at [facility] on 10/26/2017 L ast Assessment & Plan: Identified on CT at [facility] 10/26/17, LFTs normal on admission - Recommend [...]
--- OUTSIDE RECORDS SUMMARY | 2018-10-19 14:23 | XMS REPORT | Encounter Summary ---
Author Author [facility] Organization [facility] Address Unknown Phone Unavailable Care Team Providers Care Financial Consultant Name Role Phone Judah Lopez RN Unavailable Unavailable Brett Alcantar MD Unavailable Kumar Diggs MD Unavailable Doctor, Miscellaneous Unavailable Unavailable Barbara Pelaez MD Unavailable Adolfo Cardenas MD PCP Fausto Hsu Unavailable Unavailable Nallely Gomez MD Unavailable Silvano Potts MD Unavailable Sarwat Lozano APRN Unavailable Unavailable Aileen Jacobson MD Unavailable Unavailable Leonid Santos MD Unavailable Unavailable Danitza Rios MA,CCC-UPPER CUTTER OUT Unavailable Unavailable Gela Cleary RN Unavailable Unavailable Hossein Minaya MD Unavailable Deonna Cunningham RN Unavailable Unavailable Anila Valencia RN Unavailable Unavailable Daniel Bond RN Unavailable Unavailable Yolette Moore MA,CCC-UPPER CUTTER OUT Unavailable Unavailable Bryan Romero Unavailable Unavailable Nallely Tracy MA,CCC-UPPER CUTTER OUT Unavailable Unavailable Haresh Kathleen MD Unavailable Teetee Taylor RN Unavailable Unavailable Bonnie Goss RN Unavailable Unavailable Maricel Albrecht MD Unavailable Kiarra Patrick RN Unavailable Unavailable Evelio Chris RN 2 Unavailable Todd Avendano MD Unavailable Tatiana Tim PA-C Unavailable Reason for Visit * Reason Comments Erroneous encounter-disregard Encounter Details Care Team Description Date Type Department Sudhakar Yates MD [address] [place] [address] Erroneous encounter-disregard 07/23/2018 Telephone [facility] Physicians [address] [facility] [place] [address] Social History Date Tobacco Use [...]
--- OUTSIDE RECORDS SUMMARY | 2018-10-19 14:23 | XMS REPORT | Encounter Summary ---
Author Author [facility] Organization [facility] Address Unknown Phone Unavailable Care Team Providers Care Recreational Vehicle Resort Manager Name Role Phone Judah Lopez RN Unavailable Unavailable Brett Alcantar MD Unavailable Kumar Diggs MD Unavailable Doctor, Miscellaneous Unavailable Unavailable Barbara Pelaez MD Unavailable Adolfo Cardenas MD PCP Fausto Hsu Unavailable Unavailable Nallely Gomez MD Unavailable Silvano Potts MD Unavailable Sarwat Lozano APRN Unavailable Unavailable Aileen Jacobson MD Unavailable Unavailable Leonid Santos MD Unavailable Unavailable Danitza Rios MA,CCC-FLOUR BLENDER HELPER Unavailable Unavailable Gela Cleary RN Unavailable Unavailable Hossein Minaya MD Unavailable Deonna Cunningham RN Unavailable Unavailable Anila Valencia RN Unavailable Unavailable Daniel Bond RN Unavailable Unavailable Yolette Moore MA,CCC-FLOUR BLENDER HELPER Unavailable Unavailable Bryan Romero Unavailable Unavailable Nallely Tracy MA,CCC-FLOUR BLENDER HELPER Unavailable Unavailable Haresh Kathleen MD Unavailable [...] Diagnoses / Procedures Karyn Souza MD [address] [facility] [address] [place] [address] Pulmonary Function [facility] [address] [place] [address] New Request Specialty Services Diagnoses Required Shortness of breath * Consult, Test & Treat (Routine) Referred By Contact Referred To Contact Status Reason Specialty Diagnoses / Procedures Karyn Souza MD [address] [facility] [address] [place] [address] Rb - Sleep Disordr Ctr [place] [address] [place] [address] No Auth Needed Specialty Services Sleep Center Diagnoses Required GRACE (obstructive sleep apnea) Scheduling Instructions Neck circumference may be a required measurement for sleep study prior authorization and/or claim payment. Has neck circumference been obtained? no * Radiology Services (Routine) Referred By Contact Referred To Contact Status Reason Specialty Diagnoses / Procedures Karyn Souza MD [address] [facility] [address] [place] [address] [place] [address] No Auth Needed Radiology Diagnoses Shortness of breath P rocedures CT CHEST WO CONTRAST Reason for Visit * Reason Comments Shortness of Breath * Consult, Test & Treat Referred By Contact Referred To Contact Status Reason Specialty Diagnoses / Procedures Stefanie Milton MD [address] [facility] [id number] [place] [address] [facility] Im Pulmonary [address] [facility] [place] [address] New Request Specialty Services Pulmonology Diagnoses Required SOB (shortness of breath) Encounter Details Care Team Description Date Type Department Stefanie Milton MD [address] [facility] [place] [address] Melba Fraire Shortness of breath (Primary Dx); GRACE (obstructive sleep apnea) 07/22/2018 Office Visit [facility] Physicians - Internal Medicine [address] [facility] [place] [address] Social History Date Tobacco Use [...] Taken Vital Sign Reading 07/22/2018 12:50 PM MARBLE WORKER Blood Pressure 131/76 07/22/2018 12:50 PM MARBLE WORKER Pulse 76 07/22/2018 12:50 PM MARBLE WORKER Temperature 36.7 C (98 F) 07/22/2018 12:50 PM MARBLE WORKER Respiratory Rate 16 07/22/2018 12:50 PM MARBLE WORKER Oxygen Saturation 96% - Inhaled Oxygen - Concentration 07/22/2018 12:50 PM MARBLE WORKER Weight 105.2 kg (232 lb) 07/22/2018 12:50 PM MARBLE WORKER Height 167 cm (5' 5.75") 07/22/2018 12:50 PM MARBLE WORKER Body Mass Index 37.73 in this encounter [...] Instructions* Melba Fraire - 07/22/2018 1:15 PM MARBLE WORKER We will check a CT chest and do another lung function test to check for asthma LE WORKER in this encounter Progress Notes * Melba Fraire - 07/22/2018 1:15 PM MARBLE WORKER Date of Service: 07/22/2018 Subjective: Micki Kelley [...] time and was told to see a skimmer. She had a She was evaluated with [...] for CPAP. Staff name: Karyn Souza MD LE WORKER in this encounter Miscellaneous Notes * Addendum Note - Karyn Souza MD - 07/22/2018 1:15 PM MARBLE WORKER Addended by: KARYN SOUZA on: 07/22/2018 03:28 PM Modules accepted: Level of Service LE WORKER * Addendum Note - Melba Fraire - 07/22/2018 1:15 PM MARBLE WORKER Addended by: MELBA FRAIRE on: 07/22/2018 02:23 PM Modules accepted: Orders LE WORKER in this encounter Plan of Treatment Order [...] CT CHEST WO CONTRAST (08/13/2018 12:52 PM MARBLE WORKER) Impressions Performed At 1. No significant pulmonary [...] Interface, Radiant Results - 08/13/2018 3:[address] Chest Clinical Indication: Dyspnea on exertion. [...]
--- OUTSIDE RECORDS SUMMARY | 2018-10-19 14:23 | XMS REPORT | Encounter Summary ---
Author Author [facility] Organization [facility] Address Unknown Phone Unavailable Care Team Providers Care Maori Physiotherapist Name Role Phone Judah Lopez RN Unavailable Unavailable Brett Alcantar MD Unavailable Kumar Diggs MD Unavailable Doctor, Miscellaneous Unavailable Unavailable Barbara Pelaez MD Unavailable Adolfo Cardenas MD PCP Fausto Hsu Unavailable Unavailable Nallely Gomez MD Unavailable Silvano Potts MD Unavailable Sarwat Lozano APRN Unavailable Unavailable Aileen Jacobson MD Unavailable Unavailable Leonid Santos MD Unavailable Unavailable Danitza Rios MA,CCC-ELECTRICAL MECHANIC Unavailable Unavailable Gela Cleary RN Unavailable Unavailable Hossein Minaya MD Unavailable Deonna Cunningham RN Unavailable Unavailable Anila Valencia RN Unavailable Unavailable Daniel Bond RN Unavailable Unavailable Yolette Moore MA,CCC-ELECTRICAL MECHANIC Unavailable Unavailable Bryan Romero Unavailable Unavailable Nallely Tracy MA,CCC-ELECTRICAL MECHANIC Unavailable Unavailable Haresh Kathleen MD Unavailable Teetee Taylor RN Unavailable Unavailable Bonnie Goss RN Unavailable Unavailable Maricel Albrecht MD Unavailable Kiarra Patrick RN Unavailable Unavailable Evelio Chris RN 2 Unavailable Todd Avendano MD Unavailable Tatiana Tim PA-C Unavailable Reason for Visit * Reason Comments Pre-Visit Planning Appt 08/13/18 Dr. Luna Encounter Details Care Team Description [place] [address] [facility] [address] [place] [address] Pre-Visit Planning (Appt 08/13/18 Dr. 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 Mata [facility] Referring Physician: Dr. Stefanie Milton cardiology Previous Neurologist: none Other providers seen: pulmonary clinic, Dr. Surehka MCDONALD urology, Dr. Hossein MCDONALD ENT, Dr. Kumar MCDONALD GI, Dr. Oscar MCDONALD eye (2016), Dr. Haresh Kathleen [facility] pain management, Dr[facility] Morales at [facility] [place] [facility], Dr. Barroso pain management Previous Imaging/Procedures: [facility] CT head- 05/12/04 [facility] CE XRay EMG EEG ED/Hospitalizations: [facility] admission 03/26/18 SOA [facility] 10/26/17 SOB Current Meds: none Medications, Allergies, History Updated ILADA MAKER in this encounter Plan of Treatment Not on fileas of this encounter Visit Diagnoses Not on filein this encounter
--- OUTSIDE RECORDS SUMMARY | 2018-10-19 14:23 | XMS REPORT | Encounter Summary ---
Author Author [facility] Organization [facility] Address Unknown Phone Unavailable Care Team Providers Care Surgery Technician Name Role Phone Judah Lopez RN Unavailable Unavailable Brett Alcantar MD Unavailable Kumar Diggs MD Unavailable Doctor, Miscellaneous Unavailable Unavailable Barbara Pelaez MD Unavailable Adolfo Cardenas MD PCP Fausto Hsu Unavailable Unavailable Nallely Gomez MD Unavailable Silvano Potts MD Unavailable Sarwat Lozano APRN Unavailable Unavailable Aileen Jacobson MD Unavailable Unavailable Leonid Santos MD Unavailable Unavailable Danitza Rios MA,CCC-ASSOCIATE STORE MANAGER Unavailable Unavailable Gela Cleary RN Unavailable Unavailable Hossein Minaya MD Unavailable Deonna Cunningham RN Unavailable Unavailable Anila Valencia RN Unavailable Unavailable Daniel Bond RN Unavailable Unavailable Yolette Moore MA,CCC-ASSOCIATE STORE MANAGER Unavailable Unavailable Bryan Romero Unavailable Unavailable Nallely Tracy MA,CCC-ASSOCIATE STORE MANAGER Unavailable Unavailable Haresh Kathleen MD Unavailable Teetee Taylor RN Unavailable Unavailable Bonnie Goss RN Unavailable Unavailable Maricel Albrecht MD Unavailable Kiarra Patirck RN Unavailable Unavailable Evelio Chris RN 2 Unavailable Todd Avendano MD Unavailable Tatiana Tim PA-C Unavailable Reason for Visit * Consult, Test & Treat Referred By Contact Referred To Contact Status Reason Specialty Diagnoses / Procedures Chetan Hunter MD [address] [address] Pulmonary Function [facility] [address] [place] [address] New Request Specialty Services Diagnoses Required SOB (shortness of breath) Encounter Details Care Team Description Date Type Department Chetan Hunter MD [address] [address] [phone] 07/22/2018 [facility] Encounter [facility] Pulmonary Function [facility] [address] [place] [address] Social History Date Tobacco Use Types Packs/Day [...] 07/22/2018 Shortness of breath FUNCTION 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 Results * PFT COMPLETE PULM FUNCTION (07/22/2018 10:53 AM MUSIC STORE MANAGER) FVC-Pre 2.15 L [facility] MAIN FVC-%Pred-pre 64 % [facility] FEV1-Pre 1.89 L [facility] FEV1-%Pred-Pre 73 % [facility] FEV1/FVC-Pre 88 % [facility] [id number] 67 % [facility] [id number] 3.03 L/sec [facility] MBK2647-%Pred-Pre 139 % [facility] RVPleth-Pre 1.71 [...] MAIN DLVA-#SD 1.526 ml/min/mmHg/L [facility] AVF5IMC-Cry 71 % [facility] Performing Organization Address City/State/Zipcode Phone Number [facility] [address] [place] [address] in this encounter Visit Diagnoses Diagnosis Shortness of breath - Primary in this encounter
--- OUTSIDE RECORDS SUMMARY | 2018-10-19 14:23 | XMS REPORT | Encounter Summary ---
Author Author [facility] Organization [facility] Address Unknown Phone Unavailable Care Team Providers Care Digital Forensics Examiner Name Role Phone Judah Lopez RN Unavailable Unavailable Brett Alcantar MD Unavailable Kumar Diggs MD Unavailable Doctor, Miscellaneous Unavailable Unavailable Barbara Pelaez MD Unavailable Adolfo Cardenas MD PCP Fuasto Hsu Unavailable Unavailable Nallely Gomez MD Unavailable Silvano Potts MD Unavailable Sarwat Lozano APRN Unavailable Unavailable Aileen Jacobson MD Unavailable Unavailable Leonid Santos MD Unavailable Unavailable Danitza Rios MA,CCC-CREDIT NEGOTIATOR Unavailable Unavailable Gela Cleary RN Unavailable Unavailable Hossein Minaya MD Unavailable Deonna Cunningham RN Unavailable Unavailable Anila Valencia RN Unavailable Unavailable Daniel Bond RN Unavailable Unavailable Yolette Moore MA,CCC-CREDIT NEGOTIATOR Unavailable Unavailable Bryan Romero Unavailable Unavailable Nallely Tracy MA,CCC-CREDIT NEGOTIATOR Unavailable Unavailable Haresh Kathleen MD Unavailable Teetee Taylor RN Unavailable Unavailable Bonnie Goss RN Unavailable Unavailable Maricel Albrecht MD Unavailable Kiarra Patrick RN Unavailable Unavailable Evelio Chris RN 2 Unavailable Todd Avendano MD Unavailable Tatiana Tim PA-C Unavailable Encounter Details Care Team Description Date Type Department Chetan Hunter MD [address] [facility] [place] [phone] 07/22/2018 Hospital [facility] Encounter Hospital Radiology [address] [facility] MED OFFICE BLDG 2ND FLOOR [phone] Social History Date Tobacco Use Types Packs/Day [...] 07/22/2018 SOB (shortness of breath) 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
--- OUTSIDE RECORDS SUMMARY | 2018-10-19 14:25 | XMS REPORT | Continuity of Care Document ---
Author Author [facility] Organization [facility] Address Unknown Phone Unavailable Allergies Active Description Code Type Severity Reaction Onset Reported/Identified Relationship to Patient Clinical Status Yes No Known Drug Allergies [id number] Drug Allergy Unknown N/A 02/11/2014 Medications There is no data. 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 02/19/2013 DEBORAH HALL, KATHLEEN R Ot 250.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, TYPE II OR UNSPEC TY 02/19/2013 DEBORAH AHLL, KATHLEEN R Ot 272.0 PURE HYPERCHOLESTEROLEM 02/19/2013 DEBORAH HALL, KATHLEEN R Ot 333.94 RESTLESS LEGS SYNDROME 02/19/2013 DEBORAH HALL, KATHLEEN R Ot 401.9 HYPERTENSION NOS 02/19/2013 KATHLEEN CABRERA MD R Ot 564.00 UNSPEC CONSTIPATION 02/19/2013 DEBORAH HALL, KATHLEEN R Ot 564.1 IRRITABLE BOWEL SYNDROME 02/19/2013 DEBORAH HALL, KATHLEEN R Ot 728.84 DIASTASIS OF MUSCLE 02/19/2013 DEBORAH HALL, KATHLEEN R Ot 789.06 ABDOMINAL PAIN, EPIGASTRIC 02/20/2013 [...] R Ot 300.00 ANXIETY STATE NOS 07/21/2013 DEBORAH HALL, KATHLEEN R Ot 311 DEPRESSIVE DISORDER NEC 07/21/2013 [...] R Ot 780.4 DIZZINESS AND GIDDINESS 08/02/2013 SEGLIE MD, KATHLEEN R Ot 787.91 DIARRHEA 08/02/2013 DEBORAH HALL, KATHLEEN R Ot 789.00 ABDOMINAL PAIN, UNSPECIFIED SITE 09/05/2013 GELLENDER DO, BIJAN Sosa Ot 338.29 09/05/2013 GELLENDER DO, BIJAN Sosa [...] DEBORAH HALL, KATHLEEN R Ot V13.63 12/14/2015 DEBORAH HALL, KATHLEEN R Ot D64.9 ANEMIA, UNSPECIFIED 12/14/2015 DEBORAH HALL, KATHLEEN R Ot E03.9 HYPOTHYROIDISM, UNSPECIFIED 12/14/2015 DEBORAH HALL, KATHLEEN R Ot R73.02 IMPAIRED GLUCOSE TOLERANCE (ORAL) 12/19/2015 RUFINA CABRERA MDYD R Ot D64.9 ANEMIA, UNSPECIFIED 12/19/2015 RUFINA CABRERA MDYD R Ot E03.9 HYPOTHYROIDISM, UNSPECIFIED 12/19/2015 DEBORAH HALL, KATHLEEN R Ot R73.02 IMPAIRED GLUCOSE TOLERANCE (ORAL) 12/27/2015 KATHLEEN CABRERA MD R Ot D64.9 ANEMIA, UNSPECIFIED 12/27/2015 KATHLEEN CABRERA MD R Ot E03.9 HYPOTHYROIDISM, UNSPECIFIED 12/27/2015 DEBORAH HALL, KATHLEEN R Ot R73.02 IMPAIRED GLUCOSE TOLERANCE (ORAL) 2016 DEBORAH HALL KATHLEEN R Ot G89.18 OTHER ACUTE POSTPROCEDURAL PAIN 2016 DEBORAH HALL KATHLEEN R Ot K59.00 CONSTIPATION, UNSPECIFIED 2016 DEBORAH HALL KATHLEEN R Ot R11.2 NAUSEA WITH VOMITING, UNSPECIFIED 2016 DEBORAH HALL KATHLEEN R Ot Z96.651 PRESENCE OF RIGHT ARTIFICIAL KNEE JOINT 2016 DEBORAH HALL KATHLEEN R Ot G89.18 OTHER ACUTE POSTPROCEDURAL PAIN 2016 KATHLEEN CABRERA MD R Ot K59.00 CONSTIPATION, UNSPECIFIED 2016 DEBORAH HALL KATHLEEN R Ot R11.2 NAUSEA WITH VOMITING, UNSPECIFIED 2016 DEBORAH HALL KATHLEEN R Ot Z96.651 PRESENCE OF RIGHT ARTIFICIAL KNEE JOINT 05/10/2016 KATHLEEN CABRERA MD R Ot 784.42 DYSPHONIA 05/10/2016 SEGLIE MD, KATHLEEN R Ot D64.9 ANEMIA, UNSPECIFIED 05/10/2016 DEBORAH HALL, KATHLEEN R Ot E03.9 HYPOTHYROIDISM, UNSPECIFIED 05/10/2016 DEBORAH HALL, KATHLEEN R Ot R73.02 IMPAIRED GLUCOSE TOLERANCE (ORAL) 05/10/2016 DEBORAH HALL, KATHLEEN R Ot M89.8X6 OTHER SPECIFIED DISORDERS OF BONE, LOWER 05/14/2016 KATHLEEN CABRERA MD R Ot M89.8X6 OTHER SPECIFIED DISORDERS OF BONE, LOWER 05/24/2016 JONEL LOW MD Ot Z47.1 AFTERCARE FOLLOWING [...] RIGHT ARTIFICIAL KNEE JOINT 08/07/2016 PEPPER MARTINEZ Ot S99.921A UNSPECIFIED INJURY OF RIGHT FOOT, INITIA 08/07/2016 PEPPER MARTINEZ Ot X58.XXXA EXPOSURE TO OTHER SPECIFIED FACTORS, INI 08/07/2016 PEPPER MARTINEZ Ot Y99.8 OTHER EXTERNAL CAUSE STATUS 08/14/2016 PEPPER MARTINEZ Ot S99.921A UNSPECIFIED INJURY OF RIGHT FOOT, INITIA 08/14/2016 PEPPER MARTINEZ Ot X58.XXXA EXPOSURE TO OTHER SPECIFIED FACTORS, INI 08/14/2016 PEPPER MARTINEZ Ot Y99.8 OTHER EXTERNAL CAUSE STATUS 08/25/2016 [...] GLUCOSE TOLERANCE (ORAL) 12/10/2016 KATHLEEN CABRERA MD Ot M89.8X6 OTHER SPECIFIED DISORDERS OF BONE, LOWER 12/10/2016 PEPPER MARTINEZ Ot S99.921A UNSPECIFIED INJURY OF RIGHT FOOT, INITIA 12/10/2016 PEPPER MARTINEZ Ot X58.XXXA EXPOSURE TO OTHER SPECIFIED FACTORS, INI 12/10/2016 PEPPER MARITNEZ Ot Y99.8 OTHER EXTERNAL CAUSE STATUS 12/19/2016 KATHLEEN CABRERA MD Ot 784.42 DYSPHONIA 12/19/2016 KATHLEEN CABRERA MD Ot D64.9 ANEMIA, UNSPECIFIED 12/19/2016 KATHLEEN CABRERA MD R Ot E03.9 HYPOTHYROIDISM, UNSPECIFIED 12/19/2016 KATHLEEN CABRERA MD R Ot R73.02 IMPAIRED GLUCOSE TOLERANCE (ORAL) 12/19/2016 KATHLEEN CABRERA MD Ot M89.8X6 OTHER SPECIFIED [...] PRESENCE OF RIGHT ARTIFICIAL KNEE JOINT 02/12/2017 PER HALL, FLAVIA Salter Ot F44.4 CONVERSION [...] D64.9 ANEMIA, UNSPECIFIED 04/04/2017 KATHLEEN CABRERA MD Ot E03.9 HYPOTHYROIDISM, UNSPECIFIED 04/04/2017 KATHLEEN CABRERA MD Ot R73.02 IMPAIRED GLUCOSE TOLERANCE (ORAL) 04/04/2017 KATHLEEN CABRERA MD Ot M89.8X6 OTHER SPECIFIED DISORDERS OF BONE, LOWER 04/04/2017 PEPPER MARTINEZ Ot S99.921A UNSPECIFIED INJURY OF RIGHT FOOT, INITIA 04/04/2017 PEPPER MARTINEZ Ot X58.XXXA EXPOSURE TO OTHER SPECIFIED FACTORS, INI 04/04/2017 PEPPER MARTINEZ Ot Y99.8 OTHER EXTERNAL CAUSE STATUS 04/04/2017 KATHLEEN CABRERA MD Ot 784.42 DYSPHONIA 04/04/2017 KATHLEEN CABRERA MD Ot D64.9 ANEMIA, UNSPECIFIED 04/04/2017 KATHLEEN CABRERA MD R Ot E03.9 HYPOTHYROIDISM, UNSPECIFIED 04/04/2017 KATHLEEN CABRERA MD Ot R73.02 IMPAIRED GLUCOSE TOLERANCE (ORAL) 04/04/2017 [...] PRESENCE OF RIGHT ARTIFICIAL KNEE JOINT 08/07/2017 HUMBLE GRAYSON MD Ot R33.9 RETENTION OF URINE, UNSPECIFIED 09/22/2017 HUMBLE GRAYSON MD Ot R33.9 RETENTION OF URINE, UNSPECIFIED 10/08/2017 KENAN HALL HUMBLE Ot R33.9 RETENTION OF URINE, UNSPECIFIED 12/05/2017 KATHLEEN CABRERA MD R Ot 787.20 DYSPHAGIA, UNSPECIFIED 02/11/2018 KATHLEEN CABRERA MD R Ot G47.37 CENTRAL SLEEP APNEA IN CONDITIONS CLASSI 02/11/2018 KATHLEEN CABRERA MD R Ot R06.02 SHORTNESS OF BREATH 02/11/2018 KATHLEEN CABRERA MD R Ot R13.10 DYSPHAGIA, UNSPECIFIED 02/11/2018 KATHLEEN CABRERA MD R Ot R49.0 DYSPHONIA 02/11/2018 KATHLEEN CABRERA MD R Ot T84.89XA OT COMP OF INTERNAL ORTHOPEDIC PROSTH D 02/27/2018 NIYA CHAVEZ LAB ASSOCIATE-C Ot J20.9 ACUTE BRONCHITIS, UNSPECIFIED 03/03/2018 KATHLEEN CABRERA MD R Ot G47.37 CENTRAL SLEEP APNEA IN CONDITIONS CLASSI 03/03/2018 KATHLEEN CABRERA MD R Ot R06.02 SHORTNESS OF BREATH 03/03/2018 KATHLEEN CABRERA MD R Ot R13.10 DYSPHAGIA, UNSPECIFIED 03/03/2018 KATHLEEN CABRERA MD R Ot R49.0 DYSPHONIA 03/03/2018 KATHLEEN CABRERA MD R Ot T84.89XA OTH COMP OF INTERNAL ORTHOPEDIC PROSTH D 03/18/2018 NIYA CHAVEZ-C Ot J20.9 ACUTE BRONCHITIS, UNSPECIFIED 03/20/2018 KATHLEEN CABRERA MD R Ot 784.42 DYSPHONIA 03/20/2018 KATHLEEN CABRERA MD [...] SHORTNESS OF BREATH 03/20/2018 KATHLEEN CABRERA MD R Ot R13.10 DYSPHAGIA, UNSPECIFIED 03/20/2018 KATHLEEN CABRERA MD R Ot R49.0 DYSPHONIA 03/20/2018 KATHLEEN CABRERA MD Ot T84.89XA OTH COMP OF INTERNAL ORTHOPEDIC PROSTH D 03/20/2018 NIYA CHAVEZ-C Ot J20.9 ACUTE BRONCHITIS, UNSPECIFIED 03/20/2018 LATHA HALL, GABBIE Mcguire Ot J20.9 ACUTE BRONCHITIS, UNSPECIFIED 03/20/2018 LATHA HALL, GABBIE Mcguire Ot J42 UNSPECIFIED CHRONIC BRONCHITIS 03/20/2018 GABBIE AZUL MD Ot R06.02 SHORTNESS OF BREATH 03/20/2018 GABBIE AZUL MD Ot Z79.52 MCC (CURRENT) USE OF SYSTEMIC STER 03/20/2018 GABBIE AZUL MD Ot Z79.82 DIRECTOR OF ADULT EPILEPSY (CURRENT) USE OF ASPIRIN 03/20/2018 GABBIE AZUL MD Ot Z79.84 MCC (CURRENT) USE OF ORAL HYPOGLYC 03/20/2018 GABBIE [...] J20.9 ACUTE BRONCHITIS, UNSPECIFIED 03/23/2018 GABBIE AZUL MD, Ot J42 UNSPECIFIED CHRONIC BRONCHITIS 03/23/2018 GABBIE AZUL MD Ot R06.02 SHORTNESS OF BREATH 03/23/2018 GABBIE AZUL MD Ot Z79.52 DIRECTOR OF ADULT EPILEPSY (CURRENT) USE OF SYSTEMIC STER 03/23/2018 GABBIE AZUL MD Ot Z79.82 DIRECTOR OF ADULT EPILEPSY (CURRENT) USE OF ASPIRIN 03/23/2018 GABBIE AZUL MD Ot Z79.84 MCC (CURRENT) USE OF ORAL HYPOGLYC 03/23/2018 GABBIE AZUL MD Ot Z82.49 FAMILY HX OF ISCHEM HEART DIS AND OTH DI 03/23/2018 GABBIE AZUL MD Ot Z87.01 PERSONAL HISTORY OF PNEUMONIA (RECURRENT 03/23/2018 GABBIE AZUL MD Ot Z87.19 PERSONAL HISTORY OF OTHER DISEASES OF TH 03/23/2018 GABBIE AZUL MD Ot Z87.891 PERSONAL [...] W/O MYELOPATHY OR RADICULOPA 04/20/2018 GABBIE AZUL MD Ot M51.36 OTHER INTERVERTEBRAL DISC DEGENERATION, 04/20/2018 GABBIE AZUL MD Ot R06.02 SHORTNESS OF BREATH 04/20/2018 GABBIE AZUL MD Ot Z79.52 MCC (CURRENT) USE OF SYSTEMIC STER 04/20/2018 GABBIE AZUL MD Ot Z79.82 DIRECTOR OF ADULT EPILEPSY (CURRENT) USE OF ASPIRIN 04/20/2018 GABBIE AZUL MD Ot Z79.84 DIRECTOR OF ADULT EPILEPSY (CURRENT) USE OF ORAL HYPOGLYC 04/20/2018 GABBIE AZUL MD, Ot Z82.49 FAMILY HX OF ISCHEM HEART DIS AND OTH DI 04/20/2018 GABBIE AZUL MD Ot Z87.01 PERSONAL HISTORY OF PNEUMONIA (RECURRENT 04/20/2018 GABBIE AZUL MD Ot Z87.19 PERSONAL HISTORY OF OTHER DISEASES OF TH 04/20/2018 GABBIE AZUL MD Ot Z87.891 PERSONAL HISTORY [...] G25.81 RESTLESS LEGS SYNDROME 06/25/2018 DAVID SINGH MD Ot M79.18 MYALGIA, OTHER SITE 06/25/2018 DAVID SINGH MD Ot M79.604 PAIN IN RIGHT LEG 06/25/2018 DAVID SINGH MD Ot Z79.51 MCC (CURRENT) USE OF INHALED STERO 06/25/2018 DAVID SINGH MD Ot Z79.82 DIRECTOR OF ADULT EPILEPSY (CURRENT) USE OF ASPIRIN 06/25/2018 DAVID SINGH MD Ot Z79.84 DIRECTOR OF ADULT EPILEPSY (CURRENT) USE OF ORAL HYPOGLYC 06/25/2018 DAVID SINGH MD Ot Z80.0 FAMILY HISTORY OF MALIGNANT NEOPLASM OF 06/25/2018 DAVID SINGH MD Ot Z82.49 FAMILY HX OF ISCHEM HEART DIS AND OTH DI 06/25/2018 DAVID SINGH MD Ot Z87.01 PERSONAL HISTORY OF PNEUMONIA (RECURRENT 06/25/2018 DAVID SINGH MD Ot Z87.19 PERSONAL HISTORY OF OTHER DISEASES OF TH 06/25/2018 DAVID SINGH MD Ot Z96.651 PRESENCE OF RIGHT ARTIFICIAL KNEE JOINT 08/17/2018 DAVID SINGH MD Ot J40 BRONCHITIS, NOT SPECIFIED ACUTE OR CH 08/17/2018 DAVID SINGH MD Ot R05 COUGH 08/17/2018 DAVID SINGH MD Ot Z79.51 MCC (CURRENT) USE OF INHALED STERO 08/17/2018 DAVID SINGH MD Ot Z79.82 DIRECTOR OF ADULT EPILEPSY (CURRENT) USE OF ASPIRIN 08/17/2018 DAVID SINGH MD Ot Z79.84 DIRECTOR OF ADULT EPILEPSY (CURRENT) USE OF ORAL HYPOGLYC 08/17/2018 DAVID SINGH MD Ot Z80.0 FAMILY HISTORY OF MALIGNANT NEOPLASM OF 08/17/2018 DAVID SINGH MD Ot Z82.49 FAMILY HX OF ISCHEM HEART DIS AND OTH DI 08/17/2018 DAVID SINGH MD Ot Z87.01 PERSONAL HISTORY OF PNEUMONIA (RECURRENT 08/17/2018 DAVID SINGH MD Ot Z87.19 PERSONAL HISTORY OF OTHER DISEASES OF TH 08/17/2018 DAVID SINGH MD Ot Z96.651 PRESENCE OF RIGHT ARTIFICIAL KNEE JOINT 08/17/2018 DAVID SINGH MD Ot Z98.890 OTHER SPECIFIED POSTPROCEDURAL STATES 08/18/2018 DAVID SINGH MD Ot J40 BRONCHITIS, NOT SPECIFIED ACUTE OR CH 08/18/2018 DAVID SINGH MD Ot R05 COUGH 08/18/2018 DAVID SINGH MD Ot Z79.51 MCC (CURRENT) USE OF INHALED STERO 08/18/2018 DAVID SINGH MD Ot Z79.52 DIRECTOR OF ADULT EPILEPSY (CURRENT) USE OF SYSTEMIC STER 08/18/2018 DAVID SINGH MD Ot Z79.82 DIRECTOR OF ADULT EPILEPSY (CURRENT) USE OF ASPIRIN 08/18/2018 DAVID SINGH MD Ot Z79.84 MCC (CURRENT) USE OF ORAL HYPOGLYC 08/18/2018 DAVID SINGH MD Ot Z80.0 FAMILY HISTORY OF MALIGNANT NEOPLASM OF 08/18/2018 DAVID SINGH MD Ot Z82.49 FAMILY HX OF ISCHEM HEART DIS AND OTH DI 08/18/2018 DAVID SINGH MD Ot Z87.01 PERSONAL HISTORY OF PNEUMONIA (RECURRENT 08/18/2018 DAVID SINGH MD Ot Z87.19 PERSONAL HISTORY OF OTHER DISEASES OF 08/18/2018 DAVID SINGH MD Ot Z90.89 ACQUIRED ABSENCE OF OTHER ORGANS 08/18/2018 DAVID SINGH MD Ot Z96.651 PRESENCE OF RIGHT ARTIFICIAL KNEE JOINT 08/20/2018 DAVID SINGH MD Ot J40 BRONCHITIS, NOT SPECIFIED ACUTE OR CH 08/20/2018 DAVID SINGH MD Ot R05 COUGH 08/20/2018 DAVID SINGH MD Ot Z79.51 MCC (CURRENT) USE OF INHALED STERO 08/20/2018 DAVID SINGH MD Ot Z79.82 MCC (CURRENT) USE OF ASPIRIN 08/20/2018 DAVID SINGH MD Ot Z79.84 DIRECTOR OF ADULT EPILEPSY (CURRENT) USE OF ORAL HYPOGLYC 08/20/2018 DAIVD SINGH MD Ot Z80.0 FAMILY HISTORY OF MALIGNANT NEOPLASM OF 08/20/2018 DAVID SINGH MD Ot Z82.49 FAMILY HX OF ISCHEM HEART DIS AND OTH DI 08/20/2018 DAVID SINGH MD Ot Z87.01 PERSONAL HISTORY OF PNEUMONIA (RECURRENT 08/20/2018 DAVID SINGH MD Ot Z87.19 PERSONAL HISTORY OF OTHER DISEASES OF TH 08/20/2018 DAVID SINGH MD Ot Z96.651 PRESENCE OF RIGHT ARTIFICIAL KNEE JOINT 08/20/2018 DAVID SINGH MD Ot Z98.890 OTHER SPECIFIED POSTPROCEDURAL STATES 08/21/2018 DAVID SINGH MD Ot J40 BRONCHITIS, NOT SPECIFIED ACUTE OR CH 08/21/2018 DAVID SINGH MD Ot R05 COUGH 08/21/2018 DAVID SINGH MD Ot Z79.51 DIRECTOR OF ADULT EPILEPSY (CURRENT) USE OF INHALED STERO 08/21/2018 DAVID SINGH MD Ot Z79.52 DIRECTOR OF ADULT EPILEPSY (CURRENT) USE OF SYSTEMIC STER 08/21/2018 DAVID SINGH MD Ot Z79.82 DIRECTOR OF ADULT EPILEPSY (CURRENT) USE OF ASPIRIN 08/21/2018 DAVID SINGH MD Ot Z79.84 MCC (CURRENT) USE OF ORAL HYPOGLYC 08/21/2018 DAVID SINGH MD Ot Z80.0 FAMILY HISTORY OF MALIGNANT NEOPLASM OF 08/21/2018 DAVID SINGH MD Ot Z82.49 FAMILY HX OF ISCHEM HEART DIS AND OTH DI 08/21/2018 DAVID SINGH MD Ot Z87.01 PERSONAL HISTORY OF PNEUMONIA (RECURRENT 08/21/2018 DAVID SINGH MD Ot Z87.19 PERSONAL HISTORY OF OTHER DISEASES OF TH 08/21/2018 DAVID SINGH MD Ot Z90.89 ACQUIRED ABSENCE OF OTHER ORGANS 08/21/2018 DAVID SINGH MD Ot Z96.651 PRESENCE OF RIGHT ARTIFICIAL KNEE JOINT 08/23/2018 DAVID SINGH MD Ot J40 BRONCHITIS, NOT SPECIFIED ACUTE OR CH 08/23/2018 DAVID SINGH MD Ot R05 COUGH 08/23/2018 DAVID SINGH MD Ot Z79.51 MCC (CURRENT) USE OF INHALED STERO 08/23/2018 DAVID SINGH MD Ot Z79.82 MCC (CURRENT) USE OF ASPIRIN 08/23/2018 DAVID SINGH MD Ot Z79.84 DIRECTOR OF ADULT EPILEPSY (CURRENT) USE OF ORAL HYPOGLYC 08/23/2018 DAVID SINGH MD Ot Z80.0 FAMILY HISTORY OF MALIGNANT NEOPLASM OF 08/23/2018 DAVID SINGH MD Ot Z82.49 FAMILY HX OF ISCHEM HEART DIS AND OTH DI 08/23/2018 DAVID SINGH MD, Ot Z87.01 PERSONAL HISTORY OF PNEUMONIA (RECURRENT 08/23/2018 DAVID SINGH MD, Ot Z87.19 PERSONAL HISTORY OF OTHER DISEASES OF TH 08/23/2018 DAVID SINGH MD, Ot Z96.651 PRESENCE OF RIGHT ARTIFICIAL KNEE JOINT 08/23/2018 DAVID SINGH MD, Ot Z98.890 OTHER SPECIFIED POSTPROCEDURAL STATES 09/02/2018 ROMERO MAGDALENO DO, Ot 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 [facility] FREE TEXT ENTRY 2 RML REPORTED SENSITIVITY 04/18 13:05 NR Stool bacteria identification by culture SEE [facility] FREE TEXT ENTRY 3 CIPROFLOXACIN:INTERMEDIATE BY E-TEST [facility] RML Sensitivity Panel - 04/14/18 13:00 Trimethoprim/sulfamethoxazole susceptibility test by minimum inhibitoryconcentration R [facility] Ampicillin susceptibility test by minimum inhibitory concentration > [facility] Stool bacteria identification by culture - 05/01/18 09:20 QUANTITY OF GROWTH . [facility] Stool bacteria identification by culture SEE [facility] Complete blood count (CBC) with [...] Status Pt. Type Provider Facility Loc./Unit Complaint [id number] 09/02/2018 13:30:00 09/02/2018 14:16:00 DIS Outpatient ROMERO MAGDALENO DO [facility] REHAB R TKA PAIN [id number] 08/18/2018 08:32:00 08/18/2018 09:36:00 DIS Emergency DAVID SINGH MD [facility] ER COUGH;RUNNY NOSE [id number] 08/17/2018 12:44:00 08/17/2018 14:20:00 DIS Emergency DAVID SINGH MD [facility] ER COLD LIKE SYMPTOMS [id number] 06/23/2018 06:04:00 06/23/2018 08:59:00 DIS Outpatient DAVID SINGH MD [facility] ER LEG PAIN [id number] 05/25/2018 00:46:00 05/25/2018 23:59:59 CLS Preadmit DEBORAH HALL, KATHLEEN R [facility] [id number] 05/01/2018 09:34:00 05/01/2018 23:59:59 CLS Outpatient CONNIE OLGUIN DIGITAL EDITOR [facility] LAB V12.09 [id number] 04/14/2018 09:44:00 04/24/2018 00:01:00 DIS Outpatient KATHLEEN CABRERA MD [facility] SDC [id number] 03/20/2018 10:52:00 03/20/2018 23:59:59 CLS Outpatient KATHLEEN CABRERA MD [facility] RAD CHRONIC ALEXIS LOW BACK PAIN [id number] 03/20/2018 18:16:00 03/20/2018 21:20:00 DIS Outpatient GABBIE AZUL MD [facility] ER SOB [id number] 02/26/2018 17:40:00 02/26/2018 23:59:59 CLS Outpatient NIYA CHAVEZ LAB ASSOCIATE-C [facility] RAD COUGH [id number] 02/10/2018 14:22:00 02/10/2018 23:59:59 CLS Outpatient KATHLEEN CABRERA MD [facility] RAD HX KNEE REPLACEMENT,KNEE PAIN,KNEE SWELLING [id number] 09/10/2017 11:14:00 10/08/2017 15:33:00 DIS Outpatient HUMBLE GRAYSON MD [facility] REHAB INCOMPLETE BLADDER EMPTYING [id number] 05/25/2017 02:39:00 05/25/2017 23:59:59 CLS Preadmit KATHLEEN CABRERA MD [facility] REHAB R TOTAL KNEE [id number] 05/08/2017 10:28:00 05/24/2017 00:01:00 DIS Outpatient KATHLEEN CABRERA MD [facility] REHAB R TOTAL KNEE [id number] 05/03/2017 12:53:00 05/03/2017 12:53:00 CAN Preadmit NASREEN BLOUNT DO [facility] ER SOA [id number] 03/05/2017 10:04:00 04/01/2017 08:58:00 DIS Outpatient JONEL LOW MD [facility] REHAB R KNEE PAIN;R IT BAND SYNDROME [id number] 03/28/2017 19:27:00 03/28/2017 23:59:59 CLS Outpatient CONNIE OLGUIN APRN [facility] LAB ACUTE CYSTITIS WITH HEMATURIA [id number] 01/22/2017 11:26:00 02/26/2017 14:59:00 DIS Outpatient FLAVIA ALBARADO MD [facility] REHAB VOCAL CORD ISSUES [id number] 12/30/2016 14:02:00 12/30/2016 23:59:59 CLS Outpatient KATHLEEN CABRERA MD [facility] RAD M25.561, G89.29 CHRONIC KNEE PAIN [id number] 12/30/2016 08:31:00 12/30/2016 23:59:59 CLS Preadmit KATHLEEN CABRERA MD [facility] RAD M25.561 G89.29 [id number] 12/27/2016 15:30:00 12/27/2016 23:59:59 CLS Outpatient PEPPER MARTINEZ [facility] RAD ACUTE RT KNEE PAIN [id number] 08/26/2016 00:15:00 08/26/2016 23:59:59 [facility]read[facility] [id number] 08/08/2016 12:51:00 08/25/2016 00:01:00 DIS Outpatient JONEL LOW MD [facility] REHAB S/P R TOTAL KNEE [id number] 08/06/2016 13:16:00 08/06/2016 23:59:59 CLS Outpatient PEPPER MARTINEZ [facility] RAD INJURY OF GREAT TOE RT INITIAL ENCOUNTER,E959.7 [id number] 05/22/2016 10:21:00 05/24/2016 17:00:00 DIS [facility] [id number] 04/25/2016 07:08:00 04/25/2016 23:59:59 CLS Outpatient KATHLEEN CABRERA MD [facility] RAD PAINFUL POSTERIOR LEG [id number] 04/01/2016 11:55:00 2016 17:26:00 DIS Inpatient DEBORAH HALL, KATHLEEN Koroma [facility] 4TH SEVERE PAIN RT KNEE, NAUSEA,VOMITING [id number] 12/13/2015 14:28:00 12/13/2015 23:59:59 CLS Outpatient DEBORAH HALL, KATHLEEN Koroma [facility] LAB HYPOTHYROIDISM,ANEMIA [id number] 05/11/2015 13:55:00 05/15/2015 10:23:00 DIS Inpatient DEBORAH HALL, KATHLEEN Koroma [facility] 4TH PAIN ABD,PELVIS [id number] 12/06/2014 11:22:00 12/06/2014 23:59:59 CLS Outpatient DEBORAH HALL, KATHLEEN Koroma [facility] RAD HOARSENESS, LEISION [id number] 07/14/2014 11:19:00 07/14/2014 23:59:59 CLS Outpatient GAUTAM HALL, RIC Thornton [facility] RAD [id number] 02/11/2014 12:43:00 02/13/2014 10:40:00 DIS Inpatient DEBORAH HALL, KATHLEEN R Via [address] [id number] 10/19/2013 18:45:00 10/21/2013 11:00:00 DIS Inpatient DEBORAH HALL, KATHLEEN R Via [address] [id number] 10/16/2013 13:56:00 10/18/2013 09:30:00 DIS Inpatient DEBORAH HALL, KATHLEEN R Via [address] [id number] 10/06/2013 16:55:00 10/15/2013 09:35:00 DIS Outpatient DEBORAH HALL, KATHLEEN R [facility] [id number] 09/27/2013 15:40:00 10/05/2013 10:15:00 DIS Inpatient DEBORAH HALL, KATHLEEN R Via [address] [id number] 09/01/2013 15:25:00 09/05/2013 14:15:00 DIS Inpatient BIJAN MIGUEL DO Via [facility] 4TH [id number] 07/28/2013 00:43:00 08/02/2013 13:25:00 DIS Inpatient KATHLEEN CABRERA MD Via [facility] 4TH ABD PAIN/VOMITING [id number] 07/15/2013 16:50:00 07/21/2013 13:45:00 DIS Inpatient KATHLEEN CABRERA MD Via [facility] 4TH CONSTIPATION [id number] 07/15/2013 00:31:00 07/15/2013 01:59:00 DIS Emergency MINE NASREEN MARISCAL Via [facility] ER STOMACH PAIN [id number] 04/15/2013 08:31:00 04/15/2013 23:59:59 CLS Outpatient KATHLEEN CABRERA MD Via [facility] RAD DYSPHAGIA [id number] 02/20/2013 14:44:00 02/20/2013 17:53:00 DIS Emergency MINE NASREEN MARISCAL Via [facility] ER FALL [id number] 02/15/2013 16:32:00 02/19/2013 12:10:00 DIS Inpatient KATHLEEN CABRERA MD Via [facility] 4TH ABD PAIN [id number] 11/12/2012 07:30:00 Document Registration [id number] 10/20/2012 10:05:00 Document Registration [id number] 07/27/2012 22:28:00 Document Registration [email or web address] 12/07/2014 05:33:40 ACT Document Registration
[2018-10-19] MEDS ORDERED: LACTATED RINGERS 1,000 ML IV ONE (15:54)
[2018-10-19] MEDS ORDERED: RT-ALBUTEROL/IPRATROPIUM 3 ML (DUONEB) VIAL INH ONE (16:00)
[2018-10-19] MEDS ORDERED: ONDANSETRON 4 MG/2 ML (SDV) Z0FRAN IVP ONE (16:00)
[2018-10-19 16:14] LABS: BASOPHILS % (AUTO) 0 % (0-10); EOSINOPHILS % (AUTO) 0 % (0-10); HEMATOCRIT 35 % (35-52); HEMOGLOBIN 10.8 G/DL (11.5-16.0); LYMPHOCYTES # (AUTO) 2.2 X 10^3 (1.0-4.0); LYMPHOCYTES % (AUTO) 18 % (12-44); MEAN CORPUSCULAR HEMOGLOBIN 23 PG (25-34); MEAN CORPUSCULAR HGB CONC 31 G/DL (32-36); MEAN CORPUSCULAR VOLUME 76 FL (80-99); MEAN PLATELET VOLUME 10.8 FL (7.4-10.4); MONOCYTES # (AUTO) 0.8 X 10^3 (0.0-1.0); MONOCYTES % (AUTO) 6 % (0-12); NEUTROPHILS # (AUTO) 9.2 X 10^3 (1.8-7.8); NEUTROPHILS % (AUTO) 75 % (42-75); PLATELET COUNT 242 10^3/uL (130-400); RED CELL DISTRIBUTION WIDTH 17.4 % (10.0-14.5); WHITE BLOOD COUNT 12.2 10^3/uL (4.3-11.0)
[2018-10-19 16:25] LABS: BILIRUBIN,URINE NEGATIVE (NEGATIVE); COLOR,URINE YELLOW; GLUCOSE, URINE (UA) NEGATIVE (NEGATIVE); KETONES,URINE NEGATIVE (NEGATIVE); LEUKOCYTE ESTERASE ,URINE NEGATIVE (NEGATIVE); NITRITE,URINE NEGATIVE (NEGATIVE); PH,URINE 5 (5-9); PROTEIN,URINE NEGATIVE (NEGATIVE); UROBILINOGEN,URINE NORMAL (NORMAL)
[2018-10-19 16:35] LABS: BACTERIA,URINE NEGATIVE /HPF; CLARITY,URINE CLEAR; SQUAMOUS EPITHELIAL CELL,UR 0-2 /HPF; WBC,URINE RARE /HPF
[2018-10-19 16:38] LABS: ALANINE AMINOTRANSFERASE 15 U/L (0-55); ALBUMIN 3.9 GM/DL (3.2-4.5); ALKALINE PHOSPHATASE 78 U/L (40-136); BILIRUBIN,TOTAL 0.8 MG/DL (0.1-1.0); BUN/CREATININE RATIO 21; CALCIUM 9.6 MG/DL (8.5-10.1); CARBON DIOXIDE 24 MMOL/L (21-32); CHLORIDE 105 MMOL/L (98-107); CREATININE SERUM 0.84 MG/DL (0.60-1.30); GFR ESTIMATED > 60; GLUCOSE 170 MG/DL (70-105); MAGNESIUM 1.6 MG/DL (1.8-2.4); POTASSIUM 4.1 MMOL/L (3.6-5.0); SODIUM 140 MMOL/L (135-145); TOTAL PROTEIN 6.4 GM/DL (6.4-8.2)
--- NOTE | 2018-10-19 16:47 | NUR ---
Pt reports feeling much better after zofran and breathing treatment.
[2018-10-19] MEDS ORDERED: HYOS0.1283 SL (18:23)
--- NOTE | 2018-10-19 18:23 | ED General ---
General Chief Complaint: General Problems/Pain Stated Complaint: WEAK;SHAKY;DEHYDRATED Nursing Triage Note: Ambulatory to rm 5. Pt presents with multiple complaints. Pt reports having Salmonella and has ongoing, constant diarrhea for at least three weeks. Pt describes diarrhea as, "plain water, but sometimes chocolatey." Pt reports being in [place] last week, but reports having this problem prior to the trip. Pt reports going to Urgent Care on Friday and being prescribed prednisone. Pt reports this has now caused pt's blood sugars to be "out of whack." Pt reports feelingweak, dehydrated, shakey, and is having heart palpitations. Pt reports R knee pain and reports being scheduled for surgery today, however surgery had to be cancelled due to high blood sugars. Pt also c/o "itching everywhere" and reports thinking pt may have sand mites or bed bugs. Pt reports calling Dr. Cerna's office and was told to come to ED. Nursing Sepsis Screen: No Definite Risk Source of Information: Patient Exam Limitations: No Limitations History of Present Illness Date Seen by Provider: Oct 19, 2018 Time Seen by Provider: 15:42 Initial Comments This 68-year-old woman presents to the emergency room with multiple complaints. Her primary complaint is diarrhea for the past couple of weeks. She reports it is sudden and intense shortly after eating. She had a stool study performed at Dr. Cardenas's office which was positive for salmonella. He has prescribed antibiotics to take. She reports this is her third bout with salmonella. She has seen Dr. Diggs at [facility] for this problem and had endoscopy. She reports having 8 diarrheal stools today. She feels weak and shaky and states her heart is racing. She also complains of a dry macular pruritic rash that started over the weekend. She saw the urgent care clinic on Friday and was prescribed prednisone. She also has shortness of air and what appears to be exercise- induced asthma. She does use inhalers and nebulizers for this. She is wheezing with exertion in the ER. Allergies and Home Medications Allergies Coded Allergies: No Known Drug Allergies (Unverified , 02/11/14) Home Medications Acyclovir 5 Gm Cream.gm., TOP Q4H PRN for FEVER BLISTER, (Reported) Albuterol Sulfate 1 Puff Puff, 2 PUFF IH Q4H PRN for DYSPNEA 1 PUFF = 90 MCG Prescribed by: GABBIE AZUL on 03/20/182106 Alprazolam 1 Mg Tablet, 1 MG PO HS, (Reported) Amoxicillin 500 Mg Tablet, 500 MG PO QID, (Reported) Aspirin 325 Mg Tablet.dr, 325 MG PO HS, (Reported) Azithromycin 250 Mg Tablet, 250 MG PO UD TAKE 2 TABLETS ON DAY ONE THEN TAKE 1 TABLET DAILY FOR FOUR MORE DAYS Prescribed by: DAVID SINGH on 08/17/18 1410 Cyclosporine 1 Each Droperette, 1 DROP OU BID, (Reported) Estradiol 42.5 Gm Cream.appl, 1 APPLIC VG DAILY PRN for DISCOMFORT, (Reported) Fentanyl 1 Each Patch.td72, 100 MCG TD Q72H Prescribed by: SERENA CARDENAS on 04/03/16 07 Gabapentin 600 Mg Tablet, 1,800 MG PO BID, (Reported) TAKES 3 (600MG) TABLETS Hydrocodone Bit/Acetaminophen 1 Each Tablet, 1 EACH PO Q4H PRN for PAIN, ( Reported) Hyoscyamine Sulfate 0.125 Mg Tab.subl, 1-2 TAB SL Q4H PRN for CRAMPS Prescribed by: GIOVANNI ROSENBAUM on 10/19/18 182 Metformin HCl 500 Mg Tablet, 500 MG PO BID, (Reported) Mineral Oil/Petrolatum,White 3.5 Gm Oint...g., OU HS, (Reported) Ondansetron 4 Mg Tab.rapdis, 4-8 MG PO Q8H PRN for NAUSEA/VOMITING-1ST LINE, ( Reported) Oxycodone HCl/Acetaminophen 1 Each Tablet, 1 EACH PO BID Prescribed by: SERENA CARDENAS on 04/03/16 0724 Polyethylene Glycol 3350 119 Gm Powder, 17 GM PO DAILY PRN for CONSTIPATION, ( Reported) Pramipexole Di-HCl 0.125 Mg Tablet, 0.125 MG PO 1600,1999, (Reported) Prednisone 20 Mg Tab, 40 MG PO DAILY Prescribed by: DAVID SINGH on 08/17/18 1410 Promethazine HCl/Codeine 118 Ml Syrup, 60 ML PO Q6H Prescribed by: DAVID SINGH on 08/18/18 0932 Simvastatin 40 Mg Tablet, 40 MG PO HS, (Reported) Solifenacin Succinate 10 Mg Tablet, 10 MG PO HS, (Reported) Sucralfate 1 Gm Tablet, 1 GM PO BID, (Reported) Zolpidem Tartrate 12.5 Mg Tab.mphase, 12.5 MG PO HS, (Reported) Patient Home Medication List Home Medication List Reviewed: Yes Review of Systems Review of Systems Constitutional: no symptoms reported EENTM: no symptoms reported Respiratory: see HPI Cardiovascular: see HPI Gastrointestinal: see HPI Genitourinary: no symptoms reported : No Musculoskeletal: no symptoms reported Skin: no symptoms reported Psychiatric/Neurological: No Symptoms Reported Hematologic/Lymphatic: No Symptoms Reported Immunological/Allergic: no symptoms reported Past Brgtkqn-Drjriu-Kimwmr Hx Patient Social History Alcohol Use: Occasionally Uses Recreational Drug Use: No 2nd Hand Smoke Exposure: No Recent Foreign Travel: No Contact w/Someone Who Travel: Yes ([place]) Recent Infectious Disease Expo: No Recent Hopitalizations: Yes (january 24 right knee replacement, SEPT FOR 5 DAYS (LUNG ISSUES)) Physical Abuse: No Sexual Abuse: No Immunizations Up To Date Tetanus Booster (TDap): More than 5yrs Date of Pneumonia Vaccine: Oct 04, 2011 Date of Influenza Vaccine: Jul 06, 2013 Seasonal Allergies Seasonal Allergies: No Past Medical History Surgeries: Yes (CHIARI MALFORMATION REPAIR. EGD'S AND COLONOSCOPIES--LAST ONES 1 MONTH AGO. Ventral hernia repair) Abdominal, Orthopedic Respiratory: Yes Asthma, Pneumonia Cardiac: Yes Neurological: Yes (CHIARI MALFORMATION surgically fixed) Reproductive Disorders: No Female Reproductive Disorders: Denies Sexually Transmitted Disease: No HIV/AIDS: No Gastrointestinal: Yes ("COMPLETE ABD RECONSTRUCTION" 2009. CHRONIC ABDOMINAL PAIN) Chronic Constipation, Chronic Diarrhea Musculoskeletal: Yes (CHRONIC GENERALIZED PAIN--NARCOTIC DEPENDENT) Arthritis, Chronic Back Pain Endocrine: Yes (MASS LT THYROID REMOVED 01/01/2013) Cancer: No Psychosocial: No Integumentary: No Blood Disorders: No Adverse Reaction/Blood Tranf: No Family Medical History Cancer 03 FATHER (PANCREATIC, PASSED AT 65 FROM THIS) Cataract 03 MOTHER Dementia 03 MOTHER Family history: Arthritis 03 MOTHER Family history: Cardiovascular disease 03 MOTHER (HIGH CHOLESTEROL, [place] ARTERIES 2 TIMES) Hearing loss 03 MOTHER Hypercholesterolemia 03 MOTHER Cancer Physical Exam Vital Signs Vital Signs - First Documented 10/19/18 14:27 Temp 96.9 Pulse 73 Resp 11 B/P (MAP) 159/73 (101) Pulse Ox 98 O2 Delivery Room Air Capillary Refill : Less Than 3 Seconds Height, Weight, BMI Height: 5'6.00" Weight: 230lbs. 0.0oz. 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 Norm as Tested, Other (somewhat anxious) Skin: Normal Color, Warm/Dry Progress/Results/Core Measures Suspected Sepsis Recent Fever Within 48 Hours: No Infection Criteria Present: None New/Unexplained Altered Menta: No Sepsis Screen: No Definite Risk SIRS Temperature:96.9 Pulse: 73 Respiratory Rate: 11 Laboratory Tests 10/19/18 16:00: White Blood Count 12.2H Blood Pressure 159 /73 Mean: 101 Laboratory Tests 10/19/18 16:00: Creatinine 0.84, Platelet Count 242, Total Bilirubin 0.8 Results/Orders Lab Results Laboratory Tests Test 10/19/18 15:02 10/19/18 16:00 Range/Units Urine Color YELLOW Urine Clarity CLEAR Urine pH 5 5-9 Urine Specific [employer] 1.010 L 1.016-1.022 Urine Protein NEGATIVE NEGATIVE Urine Glucose (UA) NEGATIVE NEGATIVE Urine Ketones NEGATIVE NEGATIVE Urine Nitrite NEGATIVE NEGATIVE Urine Bilirubin NEGATIVE NEGATIVE Urine Urobilinogen NORMAL NORMAL MG/DL Urine Leukocyte Esterase NEGATIVE NEGATIVE Urine RBC (Auto) NEGATIVE NEGATIVE Urine RBC NONE /HPF Urine WBC RARE /HPF Urine Squamous Epithelial Cells 0-2 /HPF Urine Crystals NONE /LPF Urine Bacteria NEGATIVE /HPF Urine Casts NONE /LPF Urine Mucus NEGATIVE /LPF Urine Culture Indicated NO White Blood Count 12.2 H 4.3-11.0 10^3/uL Red Blood Count 4.63 4.35-5.85 10^6/uL Hemoglobin 10.8 L 11.5-16.0 G/DL Hematocrit 35 35-52 % Mean Corpuscular Volume 76 L 80-99 FL Mean Corpuscular Hemoglobin 23 L 25-34 PG Mean Corpuscular Hemoglobin Concent 31 L 32-36 G/DL Red Cell Distribution Width 17.4 H 10.0-14.5 % Platelet Count 242 130-400 10^3/uL Mean Platelet Volume 10.8 H 7.4-10.4 FL Neutrophils (%) (Auto) 75 42-75 % Lymphocytes (%) (Auto) 18 12-44 % Monocytes (%) (Auto) 6 0-12 % Eosinophils (%) (Auto) 0 0-10 % Basophils (%) (Auto) 0 0-10 % Neutrophils # (Auto) 9.2 H 1.8-7.8 X 10^3 Lymphocytes # (Auto) 2.2 1.0-4.0 X 10^3 Monocytes # (Auto) 0.8 0.0-1.0 X 10^3 Eosinophils # (Auto) 0.0 0.0-0.3 10^3/uL Basophils # (Auto) 0.0 0.0-0.1 10^3/uL Sodium Level 140 135-145 MMOL/L Potassium Level 4.1 3.6-5.0 MMOL/L Chloride Level 105 98-107 MMOL/L Carbon Dioxide Level 24 21-32 MMOL/L Anion Gap 11 5-14 MMOL/L Blood Urea Nitrogen 18 7-18 MG/DL Creatinine 0.84 0.60-1.30 MG/DL Estimat Glomerular Filtration Rate > 60 BUN/Creatinine Ratio 21 Glucose Level 170 H 70-105 MG/DL Calcium Level 9.6 8.5-10.1 MG/DL Corrected Calcium 9.7 8.5-10.1 MG/DL Magnesium Level 1.6 L 1.8-2.4 MG/DL Total Bilirubin 0.8 0.1-1.0 MG/DL Aspartate Amino Transf (AST/SGOT) 13 5-34 U/L Alanine Aminotransferase (ALT/SGPT) 15 0-55 U/L Alkaline Phosphatase 78 40-136 U/L C-Reactive Protein High Sensitivity 0.46 0.00-0.50 MG/DL Total Protein 6.4 6.4-8.2 GM/DL Albumin 3.9 3.2-4.5 GM/DL My Orders Orders - GIOVANNI SAUCEDA MD Cbc With Automated Diff (10/19/18 15:54) Comprehensive Metabolic Panel (10/19/18 15:54) Hs C Reactive Protein (10/19/18 15:54) Magnesium (10/19/18 15:54) Ua Culture If Indicated (10/19/18 15:54) Saline Lock/Iv-Start (10/19/18 15:54) Lactated Ringers (Lr 1000 Ml Iv Solution (10/19/18 15:54) Ondansetron Injection (Zofran Injectio (10/19/18 16:00) Albuterol/Ipra Inhalation Soln (Duoneb I (10/19/18 16:00) Svn Small Volume Nebulizer (10/19/18 15:54) Medications Given in ED Current Medications Medications Dose Ordered Sig/Eloise Route Start Time Stop Time Status Last Admin Dose Admin Albuterol/ Ipratropium 3 ml ONCE ONCE INH 10/19/18 16:00 10/19/18 16:01 DC 10/19/18 16:16 3 ML Lactated Ringer's 1,000 ml @ 0 mls/hr Q0M ONCE IV 10/19/18 15:54 10/19/18 15:57 DC 10/19/18 16:16 1,000 MLS/HR Ondansetron HCl 4 mg ONCE ONCE IVP 10/19/18 16:00 10/19/18 16:01 DC 10/19/18 16:16 4 MG Vital Signs/I&O 10/19/18 14:27 Temp 96.9 Pulse 73 Resp 11 B/P (MAP) 159/73 (101) Pulse Ox 98 O2 Delivery Room Air Capillary Refill : Less Than 3 Seconds Blood Pressure Mean: 101 Progress Note : Progress Note Patient received a DuoNeb treatment and felt much better after that. She does have nebulizer treatments at home as well. She was hydrated with 1 L of IV fluid. Labs were unremarkable except for mild leukocytosis which is probably secondary to the steroids. Departure Impression Primary Impression: Diarrhea Qualified Codes: A09 - Infectious gastroenteritis and colitis, unspecified Additional Impressions: Asthma exacerbation Qualified Codes: J45.901 - Unspecified asthma with (acute) exacerbation Pruritus Disposition: HOME, SELF-CARE Condition: Improved Departure-Patient Inst. Decision time for Depature: 18:00 Referrals: KATHLEEN CARDENAS MD (PCP/Family) Primary Care Physician Patient Instructions: Salmonellosis (Salmonella) Add. Discharge Instructions: Drink plenty of clear liquids. Gradually advance your diet with small quantities of bland food as tolerated. Avoid foods that may exacerbate the diarrhea such as no products, fatty or greasy foods, etc. You may use Levsin (hyoscyamine) as prescribed for cramping. Complete your antibiotics as prescribed by Dr. Cardenas. Use your inhaled medications as prescribed for asthma. Because of your diabetes, I advised discontinuing prednisone. As an alternative , you may try antihistamines such as Benadryl (diphenhydramine) for itching. You may also try topical moisturizer such as Eucerin cream and anti-itch medication such as hydrocortisone or topical Benadryl. Return to the ER if you have significant worsening of her symptoms. All discharge instructions reviewed with patient and/or family. Voiced understanding. Scripts Hyoscyamine Sulfate (Levsin-Sl) 0.125 Mg Tab.subl 1-2 TAB SL Q4H PRN for CRAMPS, #20 TAB Prov: GIOVANNI SAUCEDA MD 10/19/18 Copy Copies To 1: KATHLEEN CARDENAS MD, JOSHUA T MD Oct 19, 2018 18:23
[2018-10-19 18:35] VITALS: BP 155/67
== END 2018-10-19 18:35 | disposition home or self-care (01) ==
LOC: EDUNIT# 14:16 → ER 14:17
DX: R19.7 Diarrhea, unspecified (principal); J45.901 Unspecified asthma with (acute) exacerbation; L29.9 Pruritus, unspecified; Z82.49 Family history of ischemic heart disease and other diseases of the circulatory system; Z80.0 Family history of malignant neoplasm of digestive organs; Z87.19 Personal history of other diseases of the digestive system; Z79.51 Long term (current) use of inhaled steroids; Z79.82 Long term (current) use of aspirin; Z79.84 Long term (current) use of oral hypoglycemic drugs; Z79.52 Long term (current) use of systemic steroids; Z98.890 Other specified postprocedural states; Z87.01 Personal history of pneumonia (recurrent)
CPT/HCPCS: 36415; 80053; 81000; 83735; 85025; 86141; 96361; 96374

== ENCOUNTER → 2018-11-03 | Outpatient (CLI) | payer MEDICARE, OTHER ==
[~2018-11-03] MED LIST changes: +HYOS0.1283 SL
[2018-11-03 09:39] LABS: ALANINE AMINOTRANSFERASE 15 U/L (0-55); ALKALINE PHOSPHATASE 76 U/L (40-136); BILIRUBIN,TOTAL 1.1 MG/DL (0.1-1.0); BUN/CREATININE RATIO 15; CALCIUM 9.7 MG/DL (8.5-10.1); CARBON DIOXIDE 21 MMOL/L (21-32); CHLORIDE 104 MMOL/L (98-107); CHOLESTEROL 149 MG/DL (< 200); GFR ESTIMATED > 60; GLUCOSE 169 MG/DL (70-105); HDL CHOLESTEROL 42 MG/DL (40-60); POTASSIUM 4.1 MMOL/L (3.6-5.0); SODIUM 138 MMOL/L (135-145); TOTAL PROTEIN 6.7 GM/DL (6.4-8.2); TRIGLYCERIDES 129 MG/DL (<150); VLDL CHOLESTEROL 26 MG/DL (5-40)
[2018-11-03 10:18] LABS: BASOPHILS % (AUTO) 0 % (0-10); EOSINOPHILS # (AUTO) 0.1 10^3/uL (0.0-0.3); EOSINOPHILS % (AUTO) 1 % (0-10); HEMATOCRIT 39 % (35-52); HEMOGLOBIN 12.2 G/DL (11.5-16.0); LYMPHOCYTES # (AUTO) 1.7 X 10^3 (1.0-4.0); LYMPHOCYTES % (AUTO) 17 % (12-44); MEAN CORPUSCULAR HEMOGLOBIN 23 PG (25-34); MEAN CORPUSCULAR HGB CONC 31 G/DL (32-36); MEAN CORPUSCULAR VOLUME 75 FL (80-99); MONOCYTES # (AUTO) 0.7 X 10^3 (0.0-1.0); MONOCYTES % (AUTO) 7 % (0-12); NEUTROPHILS # (AUTO) 7.7 X 10^3 (1.8-7.8); NEUTROPHILS % (AUTO) 75 % (42-75); PLATELET COUNT 189 10^3/uL (130-400); RED CELL DISTRIBUTION WIDTH 17.6 % (10.0-14.5); WHITE BLOOD COUNT 10.2 10^3/uL (4.3-11.0)
== END ==
LOC: LAB 09:07
PROVIDERS: ATTEND Family Medicine
DX: E78.2 Mixed hyperlipidemia (principal); R53.83 Other fatigue; E11.9 Type 2 diabetes mellitus without complications; I10 Essential (primary) hypertension; R53.1 Weakness
CPT/HCPCS: 36415; 80053; 80061; 83036; 84443; 85025

== ENCOUNTER → 2019-03-28 | Emergency (ER) | payer MEDICARE, OTHER | LOC: ER 09:28 ==

== ENCOUNTER 2019-03-30 11:55 | Inpatient (IN) | payer MEDICARE, OTHER ==
[~2019-03-30] VITALS: Ht 162.6 cm; Wt 105.2 kg
--- NOTE | 2019-03-30 11:57 | NUR ---
pt here with " ". pt alert gcs 15. dr stuart see pt at 1200. relates quite a long story however pt had knee replacement 2 months ago. pt with increased gabapentin dose 4-5 days ago. pt also on oxycontin. pt fell last friday and was seen in this er for the fall. thinks pt might be taking more meds then she is supposed to but also relates she has not had any meds last 24 hrs but also said she took some today. [place] and [place] thinks pt been confused and "words not coming out right" since yesterday. currently pt alert and answers appropriately w/o slurring. dr doing neuro check at 1204. also relates pt been n/v recently. pt with no acute sighns of dyspnea noted. lungs cta bilaterally. pt only pain c/o is chronic right leg pain too which pt requested ice bag which i got for pt. pt denies nausea now. tele applied shows sr 82. pt related to she has not been eating/ drinking uaing or bms as normal.
--- OUTSIDE RECORDS SUMMARY | 2019-03-30 12:00 | XMS REPORT | Clinical Summary ---
Author Author [facility] Organization [facility] Address Unknown Phone Unavailable Care Team Providers Care Water Server Name Role Phone Adolfo Cardenas MD PCP Allergies No Known Allergies Medications End Date Status Medication Sig Dispensed Refills Start Date Active diazePAM (VALIUM) 5 MG Take 5 mg by 0 tablet mouth daily. Active ALPRAZolam (XANAX) 1 MG Take 1 mg by 0 tablet mouth at bedtime. Active acyclovir (ZOVIRAX) 200 Take 200 mg 0 MG capsule by mouth daily. Active zolpidem (AMBIEN CR) 12.5 Take 12.5 mg 0 MG CR tablet by mouth nightly as needed for sleep. Active gemfibrozil (LOPID) 600 Take 600 mg 0 MG tablet by mouth 2 (two) times a day before breakfast and dinner. Active metformin (GLUCOPHAGE) Take 500 mg 0 500 mg tablet by mouth 2 (two) times a day with meals. Active pramipexole (MIRAPEX) Take 0.5 mg 0 0.125 MG tablet by mouth 3 (three) times a day. Active hydroCHLOROthiazide Take 25 mg by 0 (HYDRODIURIL) 25 MG mouth daily. tablet Active simvastatin (ZOCOR) 40 MG Take 40 mg by 0 tablet mouth nightly. Active oxybutynin (DITROPAN) 5 Take 5 mg by 0 MG tablet mouth 2 (two) times a day. Active gabapentin (NEURONTIN) Take 600 mg 0 600 MG tablet by mouth 3 (three) times a day. Active aspirin 325 MG tablet Take 325 mg 0 by mouth daily. Active citalopram (CELEXA) 10 mg 10 mg. 0 tablet 8 Active dicyclomine (BENTYL) 10 10 mg. 0 MG capsule 8 Active docusate sodium (COLACE) 100 mg. 0 100 MG capsule Active estradiol (ESTRACE) 0.01 Insert 0 % (0.1 mg/gram) vaginal vaginally 8 cream daily. Active mirabegron (MYRBETRIQ) 50 50 mg. 0 mg Tb24 tablet 7 Active pantoprazole (PROTONIX) 40 mg. 0 40 MG tablet 8 Active Problems Problem Noted Date Diarrhea 03/27/2018 [...] without long-term current use 03/26/2018 of insulin Last Assessment & Plan: Metformin was held since 03/21 d/t CT scan as outside ED A1C 8.1, needs better control Resume metformin after 48 hours of contrast accuchecks/SSI Hyperlipemia 03/26/2018 Last Assessment & Plan: Continue Simvastatin and Gemfibrozil Overactive bladder 03/26/2018 Last Assessment & Plan: Stable, continue home meds Sigmoid diverticulosis 01/01/2018 Abdominal bloating 11/18/2017 Overview: Overview: Added automatically from request for surgery [id number] Gastroesophageal reflux disease 11/18/2017 Overview: Overview: Added automatically from request for surgery [id number] Hepatic steatosis 10/30/2017 Overview: Overview: Identified on [facility] at [facility] on 10/26/2017 L ast Assessment & Plan: Identified on CT at [facility] 10/26/17, LFTs normal on admission - [...] home meds F/u endo outpatient Social History Date Tobacco Use Types Packs/Day Years Used 03/25/1969 - 03/25/1972 Former Smoker Cigarettes 0.25 3 Smokeless Tobacco: Never Used Comments: smoke pack a day for 6 months 40 years ago. Drinks/Week oz/Week Comments Alcohol Use 2 drinks weekly. Yes Sex Assigned at Date Recorded Not on file Industry Job Start Date Occupation Not on file Not on file Not on file Travel End Travel History Travel Start No recent travel history available. Last Filed Vital Signs Reading Time Taken Comments Vital Sign 127/58 11/30/2018 7:16 PM CDT Blood Pressure 75 11/30/2018 7:16 PM CDT Pulse 36.8 C (98.3 F) 11/30/2018 7:37 PM CDT Temperature 12 11/30/2018 7:16 PM CDT Respiratory Rate 91% 11/30/2018 7:16 PM CDT Oxygen Saturation - - Inhaled Oxygen Concentration 103.9 kg (229 lb) 11/30/2018 4:24 PM CDT Weight 167.6 cm (5' 6") 11/30/2018 4:24 PM CDT Height 36.96 11/30/2018 4:24 PM CDT Body Mass Index Plan of Treatment Health Maintenance Due Date Last Done Comments Diabetes Mellitus 1950 Ophthalmology Exam Diabetes Mellitus Urine 1950 Microalbumin Hepatitis C Screen 1950 Medicare Annual Wellness 1950 Td # 1952 Diabetes Mellitus Foot 1962 Exam Colorectal Screening via 2002 Colonoscopy Mammogram Screening 2002 Zoster Vaccine# (1 of 2) 2002 Depression Screening 2017 PHQ-9 # Osteoporosis Screening 2017 Pneumococcal Vaccine: 65+ 2017 Years (1 of 2 - PCV13) Diabetes Mellitus 09/26/2018 03/26/2018 Hemoglobin A1C Lipid Screening 03/27/2019 03/27/2018 Influenza Vaccine (#1) 2019 Fall Risk Assessment # 12/01/2019 11/30/2018 Results Not on filefrom Last 3 Months Insurance Type Payer Benefit Subscriber ID Effective Phone Address Plan / Dates Group Medicare MEDICARE MEDICARE xxxxxxxxxxx 2017-P [place] PART A B resent [place], [place] COMMERCIAL-NONCONTRACTED MISC xxxxxxxxxx 2017-P COMMERCIAL resent NONCONTRAC [place] 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
--- OUTSIDE RECORDS SUMMARY | 2019-03-30 12:01 | XMS REPORT | Encounter Summary ---
Author Author [facility] Organization [facility] Address Unknown Phone Unavailable Care Team Providers Care Order Runner Name Role Phone Adolfo Cardenas MD PCP Reason for Visit * Reason Comments Emesis Patient presents with nausea and voimiting x1. Patient recently completed treatment for c diff. Encounter Details Care Team Description Date Type Department Tee Chester MD [address] [place], [place] [id number] Diarrhea, unspecified type (Primary Dx); Chronic pain of right knee 11/30/[address] [facility] [id number] [place] [address] Social History Date Tobacco Use Types Packs/Day [...] Travel Start No recent travel history available. documented as of this encounter Last Filed Vital Signs Reading Time Taken Comments Vital Sign 127/58 11/30/2018 7:16 PM CDT Blood Pressure 75 11/30/2018 7:16 PM CDT Pulse 36.6 C (97.9 F) 11/30/2018 4:35 PM CDT Temperature 12 11/30/2018 7:16 PM CDT Respiratory Rate 91% 11/30/2018 7:16 PM CDT Oxygen Saturation - - Inhaled Oxygen Concentration 103.9 kg (229 lb) 11/30/2018 4:24 PM CDT Weight 167.6 cm (5' 6") 11/30/2018 4:24 PM CDT Height 36.96 11/30/2018 4:24 PM CDT Body Mass Index documented in this encounter Discharge Instructions * Attachments The following attachments cannot be sent through Care Everywhere.* DIARRHEA, UNK CAUSE (ADULT) (ITALIAN) documented in this encounter Medications at Time of Discharge Start Date End Date Medication Sig Dispensed Refills acyclovir (ZOVIRAX) 200 Take 200 mg 0 MG capsule by mouth daily. ALPRAZolam (XANAX) 1 MG Take 1 mg by 0 tablet mouth at bedtime. aspirin 325 MG tablet Take 325 mg 0 by mouth daily. 01/01/2018 citalopram (CELEXA) 10 mg 10 mg. 0 tablet diazePAM (VALIUM) 5 MG Take 5 mg by 0 tablet mouth daily. 11/10/2017 dicyclomine (BENTYL) 10 10 mg. 0 MG capsule docusate sodium (COLACE) 100 mg. 0 100 MG capsule 01/01/2018 estradiol (ESTRACE) 0.01 Insert 0 % (0.1 mg/gram) vaginal vaginally cream daily. gabapentin (NEURONTIN) Take 600 mg 0 600 MG tablet by mouth 3 (three) times a day. gemfibrozil (LOPID) 600 Take 600 mg 0 MG tablet by mouth 2 (two) times a day before breakfast and dinner. hydroCHLOROthiazide Take 25 mg by 0 (HYDRODIURIL) 25 MG mouth daily. tablet metformin (GLUCOPHAGE) Take 500 mg 0 500 mg tablet by mouth 2 (two) times a day with meals. 07/24/2017 mirabegron (MYRBETRIQ) 50 50 mg. 0 mg Tb24 tablet oxybutynin (DITROPAN) 5 Take 5 mg by 0 MG tablet mouth 2 (two) times a day. 11/17/2017 pantoprazole (PROTONIX) 40 mg. 0 40 MG tablet pramipexole (MIRAPEX) Take 0.5 mg 0 0.125 MG tablet by mouth 3 (three) times a day. simvastatin (ZOCOR) 40 MG Take 40 mg by 0 tablet mouth nightly. zolpidem (AMBIEN CR) 12.5 Take 12.5 mg 0 MG CR tablet by mouth nightly as needed for sleep. documented as of this encounter ED Notes * Abigail Cotter RN - 11/30/2018 6:59 PM CDT Spoke with Dr. Chester he wants port to be de-accessed and patient is to foll ow up outpatient since port is only flushing, but not drawing blood. Night RN no tified. * Tee Chester MD - 11/30/2018 4:52 PM CDT 11/30/2018 [facility] History Chief Complaint Patient presents with Emesis Patient presents with nausea and voimiting x1. Patient recently completed gil tment for c diff. The history is provided by the patient. Diarrhea Diarrhea characteristics: pt with chronic watery diarrhea with h/o C.diff-pt rep orts recent tested positive again and is currently on medication for it-states n ot feeling well today-1 episode of vomiting prior to arrival at 10am-no fever, n o blood in stool-also c/o R knee pain Severity: Moderate (pt reports has been dealing with this since June-pt rep orts R knee needs revision with replacement of old hardware-cannot get done unti l c diff resolved) Timing: Constant Progression: Unchanged Relieved by: Nothing Worsened by: Nothing Ineffective treatments: pt on Associated symptoms: no recent cough, no fever and no vomiting Risk factors comment: Pt reports getting treated for C.diff-wants to get tested to see if its resolved-pt gets care at [facility]-on high volume status and brought to [facility] Past Medical History: Diagnosis Date Chronic pain [...] REPAIR Right THYROIDECTOMY, PARTIAL TONSILLECTOMY VASCULAR SURGERY History reviewed. No pertinent family history. Social History Substance Use Topics Smoking status: Former Smoker Packs/day: 0.25 Years: 3.00 Types: Cigarettes Start date: 03/25/1969 Quit date: 03/25/1972 Smokeless tobacco: Never Used Comment: smoke pack a day for 6 months 40 years ago. Alcohol use Yes Comment: 2 drinks weekly. Review of Systems Constitutional: Negative for fever. Gastrointestinal: Positive for diarrhea. Negative for vomiting. All other systems reviewed and are negative. Physical Exam BP 130/50 | Pulse 74 | Temp 36.6 C (97.9 F) (Oral) | Resp 15 | Ht 1.676 m (5' 6") | Wt 103.9 kg (229 lb) | SpO2 90% | BMI 36.96 kg/m Physical Exam Constitutional: She is oriented to person, place, and time. She appears well-dev eloped and well-nourished. No distress. HENT: Head: Normocephalic and atraumatic. Mouth/Throat: Oropharynx is clear and moist. Eyes: Conjunctivae and EOM are normal. Neck: Normal range of motion. Neck supple. Cardiovascular: Normal rate, regular rhythm and normal heart sounds. Pulmonary/Chest: Effort normal and breath sounds normal. Abdominal: Soft. Bowel sounds are normal. She exhibits no distension. There is n o tenderness. There is no guarding. Pt obese-abd non tender on exam-soft w/o peritoneal signs Musculoskeletal: Normal range of motion. She exhibits tenderness (TTP over R kne e-no swelling, no effusion, FROM, CMS intact distally-old healed incision scar o evan anterior knee). She exhibits no edema. Neurological: She is alert and oriented to person, place, and time. She has norm al reflexes. No cranial nerve deficit. Skin: Skin is warm and dry. Psychiatric: She has a normal mood and affect. Her behavior is normal. Judgment and thought content normal. Nursing note and vitals reviewed. ED Course Procedures MDM pt given NS1l IV, Zofran, morphine for R knee pain-pt with chronic pain-already on Oxy 10mg 1-2 tabs-will need to f/u pain management-told could send off GI PCR for stool test per pt request-pt was unable to provide stool sample while in ED- told to f/u PCP for recheck-has remain stable through out ED stay LABS Results for orders placed or performed during the hospital encounter of 11/30/18 (from the past 24 hour(s)) CBC and Diff (manual diff if necessary) Result Value Ref Range WBC 9.80 4.00 - 11.00 TH/uL RBC 4.79 4.00 - 5.00 MIL/uL Hemoglobin 11.4 (L) 12.0 - 15.0 g/dL Hematocrit 37 36 - 45 % MCV 78 (L) 80 - 99 fL MCH 24 (L) 27 - 34 pg MCHC 31 (L) 32 - 36 % RDW 17.3 (H) 9.0 - 14.5 % Platelet Count 233 140 - 400 TH/uL MPV 10.5 9.4 - 12.3 fL Nucleated RBCs 0 0 - 0 /100 % Neutrophils 73 45 - 78 % %Lymphocytes 19 15 - 47 % %Monocytes 5 0 - 12 % %Eosinophils 1 0 - 7 % %Basophils 0 0 - 2 % % Imm Grans 1 0 - 1 % # Granulocytes 7.26 (H) 1.70 - 6.80 TH/uL # Lymphocytes 1.84 1.00 - 3.30 TH/uL # Monocytes 0.52 0.20 - 0.90 TH/uL # Eosinophils 0.14 0.00 - 0.40 TH/uL # Basophils 0.04 0.00 - 0.10 TH/uL Comprehensive Metabolic Panel Result Value Ref Range Sodium 136 133 - 147 MEQ/L Potassium 4.7 3.5 - 5.3 MEQ/L Chloride 102 96 - 112 MEQ/L Carbon Dioxide 24 20 - 32 MEQ/L Anion Gap 10 5 - 17 Calcium 9.8 8.4 - 10.5 mg/dL Glucose 159 (H) 70 - 100 mg/dL Protein Total Serum 6.5 6.0 - 8.2 g/dL Albumin 3.9 3.5 - 5.0 g/dL Alkaline Phosphatase 91 42 - 140 IU/L Alanine Aminotransferase 24 0 - 34 IU/L Aspartate Aminotransferase 26 15 - 46 IU/L Bilirubin Total 1.0 0.2 - 1.3 mg/dL Blood Urea Nitrogen 22 7 - 26 mg/dL Creatinine 0.7 0.4 - 1.1 mg/dL eGFR Female AA 100 60 - 200 mL/min/1.73sq m eGFR Female Non-AA 84 60 - 200 mL/min/1.73sq m Lipase Result Value Ref Range Lipase 44 23 - 300 IU/L Urinalysis Reflex Result Value Ref Range Appearance, Urine Yellow Glucose Urine Negative Negative mg/dL Bilirubin Urine Negative Negative Ketones Urine Negative Negative mg/dL Specific [place], UA >=1.030 1.001 - 1.030 Hemoglobin Urine Negative Negative PH Urine 5.0 5.0 - 8.0 Protein Urine Qual Negative Negative mg/dL Urobilinogen Urine Negative Negative EU/dL Nitrite Urine Negative Negative Leukocyte Esterase Negative Negative DIAGNOSIS Problem List Items Addressed This Visit Digestive Diarrhea - Primary Other Visit Diagnoses Chronic pain of right knee FOLLOW UP Adolfo Cardenas MD [address] [facility] [id number] As needed, If symptoms worsen Discussed with the patient./family/guardian the plan and all questioned fully an swered. Return precautions instructed. Discussed no driving, operating machinery, or other activity that requires non a ltered state of mind while on narcotics/benzodiazepines/other mind altering pres criptions. Patient/family/guardian expressed understanding and will not engage in activities that require concentration while on these medications. ED Clinical Impression 1. Diarrhea, unspecified type 2. Chronic pain of right knee Patient ED Dispo None Tee Chester MD 11/30/18 1915 documented in this encounter Plan of Treatment Not on filedocumented as of this encounter Procedures Comments Procedure Name Priority Date/Time Associated Diagnosis URINALYSIS REFLEX STAT 11/30/2018 6:00 PM CDT LIPASE STAT 11/30/2018 5:30 PM CDT COMPREHENSIVE METABOLIC STAT 11/30/2018 PANEL 5:30 PM CDT CBC AND DIFF (MANUAL DIFF STAT 11/30/2018 IF NECESSARY) 5:30 PM CDT documented in this encounter Results * Urinalysis Reflex (11/30/2018 6:00 PM CDT) Appearance, Yellow [facility] Glucose Urine Negative Negative mg/dL [facility] Bilirubin Urine Negative Negative [facility] Ketones Urine Negative Negative mg/dL [facility] Specific >=1.030 1.001 - 1.030 [facility] [place], UA [facility] Hemoglobin Negative Negative [facility] PH Urine 5.0 5.0 - 8.0 [facility] Protein Urine Negative Negative mg/dL [facility] Qual [facility] Urobilinogen Negative Negative EU/dL [facility] Urine [facility] Nitrite Urine Negative Negative [facility] Leukocyte Negative Negative [facility] Esterase [facility] Specimen Clean Voided Urine Performing Organization Address City/[facility] Phone Number [facility] [address] [place] [address] * Lipase (11/30/2018 5:30 PM CDT) Lipase 44 23 - 300 IU/L [facility] Specimen Blood Performing Organization Address City/[facility] Phone Number [facility] [id number] [place] [phone] * Comprehensive Metabolic Panel (11/30/2018 5:30 PM CDT) Sodium 136 133 - 147 MEQ/L [facility] Potassium 4.7 3.5 - 5.3 MEQ/L [facility] Chloride 102 96 - 112 MEQ/L [facility] Carbon Dioxide 24 20 - 32 MEQ/L [facility] Anion Gap 10 5 - 17 [facility] Calcium 9.8 8.4 - 10.5 mg/dL [facility] Glucose 159 (H) 70 - 100 mg/dL [facility] Protein Total 6.5 6.0 - 8.2 g/dL [facility] Serum [facility] Albumin 3.9 3.5 - 5.0 g/dL [facility] Alkaline 91 42 - 140 IU/L [facility] Phosphatase [facility] Alanine 24 0 - 34 IU/L [facility] Aminotransferas [facility] e Aspartate 26 15 - 46 IU/L [facility] Aminotransferas [facility] e Bilirubin Total 1.0 0.2 - 1.3 mg/dL [facility] Blood Urea 22 7 - 26 mg/dL [facility] Nitrogen [facility] Creatinine 0.7 0.4 - 1.1 mg/dL [facility] eGFR Female AA 100 60 - 200 [facility] mL/min/1.73sq m [facility] eGFR Female 84 60 - 200 [facility] Non-AA mL/min/1.73sq m [facility] Specimen Blood Performing Organization Address City/State/Zipcode Phone Number [facility] [address] [place] [address] * CBC and Diff (manual diff if necessary) (11/30/2018 5:30 PM CDT) WBC 9.80 4.00 - 11.00 TH/uL [facility] RBC 4.79 4.00 - 5.00 MIL/uL [facility] Hemoglobin 11.4 (L) 12.0 - 15.0 g/dL [facility] Hematocrit 37 36 - 45 % [facility] MCV 78 (L) 80 - 99 fL [facility] MCH 24 (L) 27 - 34 pg [facility] MCHC 31 (L) 32 - 36 % [facility] RDW 17.3 (H) 9.0 - 14.5 % [facility] Platelet Count 233 140 - 400 TH/uL [facility] MPV 10.5 9.4 - 12.3 fL [facility] Nucleated RBCs 0 0 - 0 /100 [facility] % Neutrophils 73 45 - 78 % [facility] %Lymphocytes 19 15 - 47 % [facility] %Monocytes 5 0 - 12 % [facility] %Eosinophils 1 0 - 7 % [facility] %Basophils 0 0 - 2 % [facility] % Imm Grans 1 0 - 1 % [facility] # Granulocytes 7.26 (H) 1.70 - 6.80 TH/uL [facility] # Lymphocytes 1.84 1.00 - 3.30 TH/uL [facility] # Monocytes 0.52 0.20 - 0.90 TH/uL [facility] # Eosinophils 0.14 0.00 - 0.40 TH/uL [facility] # Basophils 0.04 0.00 - 0.10 TH/uL [facility] Specimen Blood Performing Organization Address City/State/Zipcode Phone Number [facility] [address] [place] [address] documented in this encounter Visit Diagnoses Diagnosis Diarrhea, unspecified type - Primary Chronic pain of right knee documented in this encounter Administered Medications Action Date Dose Rate Site Medication Order MAR Action 11/30/2018 5:38 PM CDT 4 mg morphine 4 mg/mL injection 4 mg Given 4 mg, Intravenous, Once, Fri11/30/18 at 1653, For 1 dose ondansetron (ZOFRAN) injection 4 mg 4 mg, Intravenous, Every 6 hours PRN, nausea, vomiting, Starting Fri11/30/18 at 1651 11/30/2018 5:38 PM CDT 1,000 mL 2000 mL/hr sodium chloride 0.9% (NS) IV Bolus New Bag 1,000 mL, Intravenous, Administer over 30 Minutes, Once, Fri11/30/18 at 1653, For 1 dose documented in this encounter
--- OUTSIDE RECORDS SUMMARY | 2019-03-30 12:02 | XMS REPORT | Encounter Summary ---
Author Author [facility] Organization [facility] Address Unknown Phone Unavailable Care Team Providers Care Flight Crew Time Clerk Name Role Phone PCP Unavailable Encounter Details Care Team Description Date Type Department Alma Randolph MD [address] [place] [address] [phone] Emergency, Physician, Diverticulitis of colon (without mention of hemorrhage) 11/11/2011 [facility] [id number] [place] [address] Social History Date Tobacco Use Types Packs/Day Years Used Never Assessed Sex Assigned at Date Recorded Not on file Industry Job Start Date Occupation Not on file Not on file Not on file Travel End Travel History Travel Start No recent travel history available. documented as of this encounter Plan of Treatment Not on filedocumented as of this encounter Procedures Comments Procedure Name Priority Date/Time Associated Diagnosis CT ABDOMEN PELVIS W Routine 11/11/2011 CONTRAST 9:32 PM CDT COMPREHENSIVE METABOLIC Routine 11/11/2011 PANEL 9:19 PM CDT CBC AND DIFF (MANUAL DIFF Routine 11/11/2011 IF NECESSARY) 9:19 PM CDT documented in this encounter Results * CT Abdomen Pelvis w contrast (11/11/2011 9:32 PM CDT) Specimen Narrative Performed At [facility] Patient:MICKI LUJAN Phone #:Med Rec#:[id number] Sex:F :2Corp#: [id number] Location: Barb#: [id number] Procedure Requested: [id number] CT ABD PELVIS WITH CONTRAST Reason For Exam: ABDOMINAL PAIN SPECIFY SITE Exam Ordered:11/11/20112131 Exam Date/Time:11/11/20112136 Check-in Date/Time:11/11/20112131 Attendin EMERGENCY, PHYSICIAN "" Requestin ALMA RANDOLPH Referrin NO, REFERRING DR Primary Care:HUNTER RUFFIN "" CT Abdomen and Pelvis With Contrast Nov 11, 2011 09:37:00 PM Indications: ABDOMINAL PAIN, left lower quadrant for 2 days. Constipation. Comparison: None Routine CT of the abdomen and pelvis was performed withIV contrast only including delayed images.Coronal and sagittal reformatted images were performed. Findings: Lower chest: Unremarkable ABDOMEN Liver/spleen: Normal, fatty liver Gallbladder and biliary system: Normal Pancreas: Normal Adrenal glands: Normal Kidneys and ureters: Unremarkable GI tract: Unremarkable. The appendix is not identified. Moderate diverticulosis of the sigmoid colon without abnormal wall thickening or pericolic fat stranding. Negative for free air/fluid. PELVIS Genitourinary system: Normal bladder. Status post hysterectomy. Negative for free fluid. Vascular structures: Unremarkable Lymphatic system: Negative for adenopathy Skeletal structures/soft tissues: Normal bony structures. Postop ventral hernia repair with a mesh. Unremarkable midline incisional scar but there is mild scattered right-sided subcutaneous fat stranding. Minimal stranding is also noted posterior to the mesh. IMPRESSION: Moderate sigmoid diverticulosis without diverticulitis. No evidence of bowel obstruction. Postop ventral hernia with mesh. Mild ventral subcutaneous fat stranding is seen which may represent residual postoperative changes but I cannot exclude a mild cellulitis. Additional findings as discussed above. Signed (Authenticated, Released) Date-Time: 11/11/20112227 Keyboard Action Assembler- YOSELIN SMITH, Staff Radiologist Dictated By- YOSELIN SMITH, Staff Radiologist Staff Physician- YOSELIN SMITH, Staff Radiologist Authenticated By- YOSELIN SMITH, Staff Radiologist Procedure Note Interface, Rad Conversion - 10/23/2013 4:33 AM INTERNET SECURITY SPECIALIST REPORT Patient: MICKI LUJAN Phone #: [employer] Rec#: [id number] Sex: F : 1950 Malia#: [id number] Location: Check-in#: [id number] Procedure Requested: [id number] CT ABD PELVIS WITH CONTRAST Reason For Exam: ABDOMINAL PAIN SPECIFY SITE Exam Ordered: 11/11/20112131 Exam Date/Time: 11/11/20112136 Check-in Date/Time: 11/11/20112131 Attendin EMERGENCY, PHYSICIAN "" Requestin ALMA RANDOLPH Referrin MARCELLA, REFERRING DR Primary Care: HUNTER RUFFIN "" CT Abdomen and Pelvis With Contrast Nov 11, 2011 09:37:00 PM Indications: ABDOMINAL PAIN, left lower quadrant for 2 days. Constipation. Comparison: None Routine CT of the abdomen and pelvis was performed with IV contrast only including delayed images. Coronal and sagittal reformatted images were performed. Findings: Lower chest: Unremarkable ABDOMEN Liver/spleen: Normal, fatty liver Gallbladder and biliary system: Normal Pancreas: Normal Adrenal glands: Normal Kidneys and ureters: Unremarkable GI tract: Unremarkable. The appendix is not identified. Moderate diverticulosis of the sigmoid colon without abnormal wall thickening or pericolic fat stranding. Negative for free air/fluid. PELVIS Genitourinary system: Normal bladder. Status post hysterectomy. Negative for free fluid. Vascular structures: Unremarkable Lymphatic system: Negative for adenopathy Skeletal structures/soft tissues: Normal bony structures. Postop ventral hernia repair with a mesh. Unremarkable midline incisional scar but there is mild scattered right-sided subcutaneous fat stranding. Minimal stranding is also noted posterior to the mesh. IMPRESSION: Moderate sigmoid diverticulosis without diverticulitis. No evidence of bowel obstruction. Postop ventral hernia with mesh. Mild ventral subcutaneous fat stranding is seen which may represent residual postoperative changes but I cannot exclude a mild cellulitis. Additional findings as discussed above. Signed (Authenticated, Released) Date-Time: 11/11/20112227 Keyboard Action Assembler- YOSELIN BANERJEE M.D., Staff Radiologist Dictated By- YOSELIN BANERJEE M.D., Staff Radiologist Staff Physician- YOSELIN BANERJEE M.D., Staff Radiologist Authenticated By- YOSELIN BANERJEE M.D., Staff Radiologist Performing Organization Address [facility] Phone Number [facility] * CBC and Diff (manual diff if necessary) (11/11/2011 9:19 PM CDT) WBC 9.19 4.00 - 11.00 TH/UL [facility] RBC 5.32 (H) 4.00 - 5.00 MIL/UL [facility] Hemoglobin 15.3 (H) 12.0 - 15.0 G/DL [facility] Hematocrit 44 36 - 45 % [facility] MCV 83 80 - 99 FL [facility] MCH 29 27 - 34 PG [facility] MCHC 35 32 - 36 % [facility] RDW 14.2 9.0 - 14.5 % [facility] Platelet Count 260 140 - 400 TH/UL [facility] MPV 11.0 9.4 - 12.3 FL [facility] % Neutrophils 57 45 - 78 % [facility] %Lymphocytes 33 15 - 47 % [facility] %Monocytes 7 0 - 12 % [facility] %Eosinophils 2 0 - 7 % [facility] %Basophils 1 0 - 2 % [facility] # Granulocytes 5.27 1.70 - 6.80 TH/UL [facility] # Lymphocytes 3.05 1.00 - 3.30 TH/UL [facility] # Monocytes 0.62 0.20 - 0.90 TH/UL [facility] # Eosinophils 0.20 0.00 - 0.40 TH/UL [facility] # Basophils 0.05 0.00 - 0.10 TH/UL [facility] Specimen Blood Performing Organization Address [facility] Phone Number [facility] [address] [place] [address] [facility] * Comprehensive Metabolic Panel (11/11/2011 9:19 PM CDT) Albumin 4.0 3.5 - 5.0 G/DL [facility] Aspartate 23 15 - 46 IU/L [facility] Aminotransferas e Bilirubin Total 1.1 0.2 - 1.3 MG/DL [facility] Protein Total 6.9 6.0 - 8.2 G/DL [facility] Serum Calcium 9.7 8.4 - 10.2 MG/DL [facility] Creatinine 0.7 0.4 - 1.1 MG/DL [facility] Glucose 119 (H) 70 - 100 MG/DL [facility] Alkaline 105 42 - 128 IU/L [facility] Phosphatase Sodium 138 133 - 147 MEQ/L [facility] Potassium 4.1 3.5 - 5.1 MEQ/L [facility] Chloride 103 96 - 112 MEQ/L [facility] Carbon Dioxide 24 22 - 30 MEQ/L [facility] Blood Urea 17 7 - 26 MG/DL [facility] Nitrogen Anion Gap 10 3 - 15 [facility] Alanine 13 13 - 69 IU/L [facility] Aminotransferas e eGFR Female 86 [facility] Non-AA Comment: Chronic Kidney Disease less than 60 mL/min/1.73 sq.m Kidney failure less than 15 mL/min/1.73 sq.m eGFR Female AA 103 [facility] Comment: Chronic Kidney Disease less than 60 mL/min/1.73 sq.m Kidney failure less than 15 mL/min/1.73 sq.m Specimen Blood Performing Organization Address City/State/Zipcode Phone Number [facility] [address] [place] [address] [facility] documented in this encounter Visit Diagnoses Diagnosis Diverticulitis of colon (without mention of hemorrhage)(562.11) Diverticulitis of colon (without mention of hemorrhage) documented in this encounter
--- OUTSIDE RECORDS SUMMARY | 2019-03-30 12:02 | XMS REPORT | Encounter Summary ---
Author Author [facility] Organization [facility] Address Unknown Phone Unavailable Care Team Providers Care Yield Engineer Name Role Phone Adolfo Cardenas MD PCP Reason for Visit * Reason Comments Fatigue pt reports 3 days of fatigue, chills. denies pain. was seen at PCP office today for routine follow up from a partial thyroidectomy ~2 years ago. Encounter Details Care Team Description Date Type Department Fito Ruby DO [address] [place] [address] [phone] CAP (community acquired pneumonia) (Primary Dx) 12/12/2016 Emergency [facility] [id number] [place] [address] Social History Date Tobacco Use Types Packs/Day Years Used Never Assessed Sex Assigned at Date Recorded Not on file Industry Job Start Date Occupation Not on file Not on file Not on file Travel End Travel History Travel Start No recent travel history available. documented as of this encounter Last Filed Vital Signs Reading Time Taken Comments Vital Sign 119/60 12/12/2016 5:28 PM CDT Blood Pressure 79 12/12/2016 5:28 PM CDT Pulse 36.2 C (97.1 F) 12/12/2016 2:22 PM CDT Temperature 16 12/12/2016 5:28 PM CDT Respiratory Rate 96% 12/12/2016 5:28 PM CDT Oxygen Saturation - - Inhaled Oxygen Concentration 92.5 kg (204 lb) 12/12/2016 2:22 PM CDT Weight 167.6 cm (5' 6") 12/12/2016 2:22 PM CDT Height 32.93 12/12/2016 2:22 PM CDT Body Mass Index documented in this encounter Discharge Instructions * Instructions* Fito Ruby, - 12/12/2016 Pneumonia (Adult) Pneumonia is an infection deep within the lungs. It is in the small air sacs (al veoli). Pneumonia may be caused by a virus or bacteria. Pneumonia caused by bact eriais usually treated with an antibiotic. Severe cases may need to be treated in the hospital. Milder cases can be treated at home. Symptoms usually start to get better during the first2 days of treatment. Home care Follow these guidelines when caring for yourself at home: Rest at home for the first 2 to 3 days, or until you feel stronger. Dont l et yourself get overly tired when you go back to your activities. Stay away from cigarette smoke yours or other peoples. You may use acetaminophen or ibuprofen to control fever or pain, unless anoth er medicine was prescribed. If you have chronic liver or kidney disease, talk wi th your health care provider before using these medicines. Also talk with your luis cintron if youve had a stomach ulcer or GI bleeding. Dont give aspirin to anyone younger than 18 years of age who is ill with a fever. It may cause severe liver damage. Your appetite may be poor, so a light diet is fine. Drink 6 to 8 glasses of fluids every day to make sure you are getting enough fluids. Beverages can include water, sport drinks, sodas without caffeine, juice s, tea, or soup. Fluids will help loosen secretions in the lung. This will make it easier for you to cough up the phlegm (sputum). If you also have heart or kid ann-marie disease, check with your health care provider before you drink extra fluids. Take antibiotic medicine prescribed until it is all gone, even if you are fee ling better after a few days. Follow-up care Follow up with your health care provider in the next 2 to 3 days, or as advised. This is to be sure the medicine is helping you get better. If you are 65 or older, you should get a pneumococcal vaccine and a yearlyflu (influenza)shot. You should also get these vaccines if you have chronic lung d isease like asthma, emphysema, or COPD. Ask your provider about this. When to seek medical advice Call your health care provider right away if any of these occur: You dont get better within the first 48 hours of treatment Shortness of breath gets worse Rapid breathing (more than 25 breaths per minute) Coughing up blood Chest pain gets worse with breathing Fever [id number] (38C) or higher that doesnt get better with fever medic ine Weakness, dizziness, or fainting that gets worse Thirst or dry mouth that gets worse Sinus pain, headache, or a stiff neck Chest pain not caused by coughing [id number] [employer]. [address] [place] [address] 7. All rights reserved. This information is not intended as a substitute for pro fessional medical care. Always follow your healthcare professional's instruction s. documented in this encounter Medications at Time of Discharge Start Date End Date Medication Sig Dispensed Refills acyclovir (ZOVIRAX) 200 Take 200 mg 0 MG capsule by mouth daily. ALPRAZolam (XANAX) 1 MG Take 1 mg by 0 tablet mouth at bedtime. diazePAM (VALIUM) 5 MG Take 5 mg by 0 tablet mouth daily. gemfibrozil (LOPID) 600 Take 600 mg 0 [...] tablet mouth 2 (two) times a day. pramipexole (MIRAPEX) Take 0.5 mg 0 0.125 MG tablet by mouth 3 (three) times a day. simvastatin (ZOCOR) 40 MG Take 40 mg by 0 tablet mouth nightly. zolpidem (AMBIEN CR) 12.5 Take 12.5 mg 0 MG CR tablet by mouth nightly as needed for sleep. 12/12/2016 12/17/2016 azithromycin (ZITHROMAX Take 1 tablet 6 tablet 0 Z-MARIA GUADALUPE) 250 MG tablet (250 mg total) by mouth daily. 2 tabs on day 1 then 1 tab daily for 4 more days 11/30/2018 acyclovir (ZOVIRAX) 5 % Apply 0 cream topically as directed. 03/26/2018 cephalexin (KEFLEX) 250 Take 250 mg 0 MG capsule by mouth 4 (four) times a day. 03/26/2018 codeine-guaifenesin Take 5 mL by 0 (GUAIFENESIN AC) 10-100 mouth 3 mg/5 mL liquid (three) times a day as needed for cough. 03/26/2018 fentaNYL (DURAGESIC) 50 Place 1 patch 0 mcg/hr patch on the skin every 72 hours. 03/26/2018 gabapentin (NEURONTIN) Take 1,800 mg 0 600 MG tablet by mouth 3 (three) times a day. 03/26/2018 solifenacin (VESICARE) 10 Take 10 mg by 0 MG tablet mouth daily. documented as of this encounter ED Notes * Ashia Camara RN - 12/12/2016 3:13 PM CDT Med list rec'd from [facility]. * Fito Ruby DO - 12/12/2016 2:49 PM CDT 12/12/2016 [facility] History Chief Complaint Patient presents with Fatigue pt reports 3 days of fatigue, chills. denies pain. was seen at PCP office toda y for routine follow up from a partial thyroidectomy ~2 years ago. HPI Comments: This is a 66-year-old female who presents to the emergency departm ent with a 2 day history of fatigue, chills, fever. Patient states she was fine until these symptoms began, she has a history of a partial thyroidectomy, diabet es, Chiari malformation status post surgery, chronic pain which he takes narcoti c pain medications for. Patient states she drinks occasionally, denies jamila arevalo. Patient denies chest pain shortness of breath abdominal pain and back pain. Patient is a 66 y.o. female presenting with weakness. The history is provided by the patient. Fatigue History reviewed. No pertinent past medical history. Past Surgical History Procedure Laterality Date section Abdominal hernia repair Tonsillectomy Appendectomy Hysterectomy Repair meniscus knee Bilateral Rotator cuff repair Right Craniotomy chiari malformation Abdominal adhesion surgery Cholecystectomy Vascular surgery Cataract surgery Bilateral Joint replacement Right knee History reviewed. No pertinent family history. Social History Substance Use Topics Smoking status: None Smokeless tobacco: None Alcohol use None Review of Systems All other systems reviewed and are negative. Physical Exam Visit Vitals BP 121/49 Pulse 73 Temp 36.2 C (97.1 F) (Tympanic) Resp 18 Ht 1.676 m (5' 6") Wt 92.5 kg (204 lb) SpO2 96% BMI 32.93 kg/m2 Physical Exam Constitutional: She is oriented to person, place, and time. She appears well-dev eloped and well-nourished. She appears distressed. HENT: Head: Normocephalic and atraumatic. Eyes: Conjunctivae and EOM are normal. Pupils are equal, round, and reactive to light. Neck: Normal range of motion. Neck supple. No JVD present. Cardiovascular: Normal rate, regular rhythm and normal heart sounds. Pulmonary/Chest: Effort normal. No stridor. No respiratory distress. She has no wheezes. She has no rales. She exhibits no tenderness. Abdominal: Soft. Bowel sounds are normal. She exhibits no distension. There is n o tenderness. There is no rebound and no guarding. Musculoskeletal: Normal range of motion. Neurological: She is alert and oriented to person, place, and time. Skin: Skin is warm and dry. She is not diaphoretic. Psychiatric: She has a normal mood and affect. Her behavior is normal. Judgment and thought content normal. Nursing note and vitals reviewed. ED Course Procedures MDM Number of Diagnoses or Management Options Amount and/or Complexity of Data Reviewed Clinical lab tests: reviewed and ordered Tests in the radiology section of CPT: ordered and reviewed Decide to obtain previous medical records or to obtain history from someone othe r than the patient: yes Review and summarize past medical records: yes Independent visualization of images, tracings, or specimens: yes ED Course The patient's vitals signs are Visit Vitals BP 121/49 Pulse 73 Temp 36.2 C (97.1 F) (Tympanic) Resp 18 Ht 1.676 m (5' 6") Wt 92.5 kg (204 lb) SpO2 96% BMI 32.93 kg/m2 The labs from this visit are Results for orders placed or performed during the hospital encounter of 12/12/16 (from the past 24 hour(s)) Comprehensive Metabolic Panel Result Value Ref Range Sodium 139 133 - 147 MEQ/L Potassium 3.7 3.5 - 5.3 MEQ/L Chloride 102 96 - 112 MEQ/L Carbon Dioxide 28 20 - 32 MEQ/L Anion Gap 9 5 - 17 Calcium 9.6 8.4 - 10.5 mg/dL Glucose 122 (H) 70 - 100 mg/dL Protein Total Serum 6.8 6.0 - 8.2 g/dL Albumin 3.7 3.5 - 5.0 g/dL Alkaline Phosphatase 88 42 - 140 IU/L Alanine Aminotransferase 36 13 - 69 IU/L Aspartate Aminotransferase 27 15 - 46 IU/L Bilirubin Total 1.2 0.2 - 1.3 mg/dL Blood Urea Nitrogen 14 7 - 26 mg/dL Creatinine 0.6 0.4 - 1.1 mg/dL GFR Female AA 121 60 - 200 GFR Female Non-AA 101 60 - 200 CBC and Diff (manual diff if necessary) Result Value Ref Range WBC 9.57 4.00 - 11.00 TH/uL RBC 4.63 4.00 - 5.00 MIL/uL Hemoglobin 12.3 12.0 - 15.0 g/dL Hematocrit 38 36 - 45 % MCV 82 80 - 99 fL MCH 27 27 - 34 pg MCHC 33 32 - 36 % RDW 14.5 9.0 - 14.5 % Platelet Count 219 140 - 400 TH/uL MPV 11.2 9.4 - 12.3 fL Nucleated RBCs 0 0 - 0 /100 %Segmented Neutrophils 71 45 - 78 % %Lymphocytes 22 15 - 47 % %Monocytes 6 0 - 12 % %Eosinophils 1 0 - 7 % %Basophils 0 0 - 2 % % Imm Grans 0 0 - 1 % # Granulocytes 6.79 1.70 - 6.80 TH/uL # Lymphocytes 2.08 1.00 - 3.30 TH/uL # Monocytes 0.55 0.20 - 0.90 TH/uL # Eosinophils 0.12 0.00 - 0.40 TH/uL # Basophils 0.04 0.00 - 0.10 TH/uL Influenza AB Antigen Result Value Ref Range Influenza A Antigen Negative Negative Influenza B Antigen Negative Negative Urinalysis Reflex Result Value Ref Range Appearance, Urine Yellow Glucose Urine Negative Negative mg/dL Bilirubin Urine Negative Negative Ketones Urine Negative Negative mg/dL Specific [place], UA 1.015 1.001 - 1.030 Hemoglobin Urine Negative Negative PH Urine 6.0 5.0 - 8.0 Protein Urine Qual Negative Negative mg/dL Urobilinogen Urine Negative Negative EU/dL Nitrite Urine Negative Negative Leukocyte Esterase Positive (A) Negative Urinalysis Microscopic Only Result Value Ref Range Microscopic RBC Urine 1 - 5 1 - 5 /hpf Microscopic WBC Urine 1 - 5 1 - 5 /hpf Epithelial Cells Absent Absent Hyaline Cast Absent Absent Bacteria Absent Absent The final diagnosis is SNOMED CT(R) 1. CAP (community acquired pneumonia) COMMUNITY ACQUIRED PNEUMONIA Adolfo Cardenas MD [address] [facility], [place] [address] In 3 days New Prescriptions AZITHROMYCIN (ZITHROMAX Z-MARIA GUADALUPE) 250 MG TABLET Take 1 tablet (250 mg total) by mouth daily. 2 tabs on day 1 then 1 tab daily for 4 more days The Xrays from this visit are XR Chest single view frontal ED Interpretation Left lower lobe opacity, no effusions or pneumothorax. Final Result There is a left CVC with tip projecting near the SVC/RAjunction. Mild interstitial prominence in the perihilar lungs and lung bases compatible with edema or mild infiltrate. Mild atelectasis in the left mid lung and lung base. Eventration of the right hemidiaphragm. Mild cardiomegaly. Calcified aorta. Degenerative change in the spine. Medications sodium chloride 0.9% (NS) IV Bolus (1,000 mL Intravenous New Bag 12/12/16 1521) All labs, xrays, CT's, and EKG's that were performed during this patient's visit were reviewed by me. ED Clinical Impression 1. CAP (community acquired pneumonia) Fito Ruby DO 12/12/16 1601 * Ashia Camara RN - 12/12/2016 2:35 PM CDT pts pharmacy contacted re: need for a medication list. Pharmacist will fax a med ication list shortly. documented in this encounter Plan of Treatment Not on filedocumented as of this encounter Procedures Comments Procedure Name Priority Date/Time Associated Diagnosis ECG STAT 12/12/2016 4:17 PM CDT XR CHEST SINGLE VIEW STAT 12/12/2016 FRONTAL 3:19 PM CDT URINALYSIS MICROSCOPIC STAT 12/12/2016 ONLY 3:17 PM CDT URINALYSIS REFLEX STAT 12/12/2016 3:17 PM CDT TROPONIN STAT 12/12/2016 3:06 PM CDT INFLUENZA AB ANTIGEN STAT 12/12/2016 3:06 PM CDT COMPREHENSIVE METABOLIC STAT 12/12/2016 PANEL 3:06 PM CDT CBC AND DIFF (MANUAL DIFF STAT 12/12/2016 IF NECESSARY) 3:06 PM CDT documented in this encounter Results * Electrocardiogram (ECG) (12/12/2016 4:17 PM CDT) Specimen [facility]ative [facility] ED Test Date:2016-12-12 Pat Name: MICKI LUJANDepartment: ER Room: [facility] 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1950 Requested By: FITO RUBY Order Number: [id number] MD: Hector Napoles Measurements IntervalsAxis Rate: 66 P:37 GA: 196QRS:25 QRSD: 80 T:30 QT: 408 QTc:428 Interpretive Statements SINUS RHYTHM BORDERLINE T ABNORMALITIES, ANT-LAT LEADS No previous ECG available for comparison Electronically Signed On 12-15-2016 19:06:36 CDT by Hector Napoles Procedure Note Interface, External Ris In - 12/15/2016 7:06 PM CDT [facility] ED Test Date: 2016-12-12 Pat Name: MICKI LUJAN Department: ER Room: [facility] 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: 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 Mild MCKESSON interstitial prominence in the perihilar lungs and lung bases compatible with edema or mild infiltrate. Mild atelectasis in the left mid lung and lung base. Eventration of the right hemidiaphragm. Mild cardiomegaly. Calcified aorta. Degenerative change in the spine. Narrative Performed At Patient: ISI LUJAN Sex#:F # [id number] Malia#:[id number] [facility]ion#: [id number] Procedure Requested:[id number] XR CHEST SINGLE VIEW FRONTAL Reason for Exam:fatigue Exam Ordered:12/12/20161453 Exam Date/Time:12/12/20161519 Begin exam date/time:6 Reading Site: [facility] DATE:12/12/2016 3:20 PM EXAM:XR CHEST SINGLE VIEW FRONTAL INDICATION:fatigue COMPARISON: Chest x-ray 11/12/2004 Procedure Note Interface, Rad Results In - 12/12/2016 3:40 PM CDT Patient: MICKI LUJAN Sex#: F # [id number] Malia#: [id number] Location: [facility] Procedure Requested: [id number] XR CHEST SINGLE VIEW FRONTAL Reason for Exam: fatigue Exam Ordered: 12/12/2016 1453 Exam Date/Time: 12/12/20169 Begin exam date/time: 12/12/20161505 Reading Site: [facility] DATE: 12/12/2016 3:20 PM EXAM: XR CHEST SINGLE VIEW FRONTAL INDICATION: fatigue COMPARISON: Chest x-ray 11/12/2004 IMPRESSION There is a left CVC with tip projecting near the SVC/RAjunction. Mild interstitial prominence in the perihilar lungs and lung bases compatible with edema or mild infiltrate. Mild atelectasis in the left mid lung and lung base. Eventration of the right hemidiaphragm. Mild cardiomegaly. Calcified aorta. Degenerative change in the spine. Performing Organization Address [facility] Phone Number [facility] * Urinalysis Microscopic Only (12/12/2016 3:17 PM CDT) Pathologist [facility] Microscopic RBC 1 - 5 1 - 5 /hpf [facility] Urine [facility] Microscopic WBC 1 - 5 1 - 5 /hpf [facility]rine [facility] Epithelial Absent Absent [facility] Cells [facility] Hyaline Cast Absent Absent [facility] Bacteria Absent Absent [facility] Specimen Clean Voided Urine Performing Organization Address [facility] Phone Number [facility] [address] [place] [address] * Urinalysis Reflex (12/12/2016 3:17 PM CDT) Pathologist [facility] Appearance, Yellow [facility] Urine [facility] Glucose Urine Negative Negative mg/dL [facility] Bilirubin Urine Negative Negative [facility] Ketones Urine Negative Negative mg/dL [facility] Specific 1.015 1.001 - 1.030 [facility] [place], UA [facility] Hemoglobin Negative Negative [facility] PH Urine 6.0 5.0 - 8.0 [facility] Protein Urine Negative Negative mg/dL [facility] Qual [facility] Urobilinogen Negative Negative EU/dL [facility]rine [facility] Nitrite Urine Negative Negative [facility] Leukocyte Positive (A) Negative [facility] Esterase [facility] Specimen Clean Voided Urine Performing Organization Address [facility] Phone Number [facility] [address] [place] [address] * Troponin (12/12/2016 3:06 PM CDT) Pathologist [facility] Troponin <0.01 0.00 - 0.03 ng/mL [facility] Comment: [facility] Troponin ValueInterpretation 0.00 - 0.03 Healthy 0.04 - 0.12 Increased Cardiac Risk >0.12M yocardial Infarction Troponin may not become elevated until 6 to 8 hours after onset of symptoms. Specimen Blood Performing Organization Address [facility]/State/Zipcode Phone Number [facility] [address] [place] [address] * Influenza AB Antigen (12/12/2016 3:06 PM CDT) Pathologist [facility] Influenza A Negative Negative [facility] Antigen Comment: [facility] A negative rapid influenza antigen result does not exclude influenza infection. If this patient is being hospitalized, influenza PCR should be ordered. Influenza B Negative Negative [facility] Antigen Comment: [facility] A negative rapid influenza antigen result does not exclude influenza infection. If this patient is being hospitalized, influenza PCR should be ordered. Specimen Nasopharynx, Performing Organization Address City/State/Zipcode Phone Number [facility] [address] [place] [address] * CBC and Diff (manual diff if necessary) (12/12/2016 3:06 PM CDT) [facility] WBC 9.57 4.00 - 11.00 TH/uL [facility] RBC 4.63 4.00 - 5.00 MIL/uL [facility] Hemoglobin 12.3 12.0 - 15.0 g/dL [facility] Hematocrit 38 36 - 45 % [facility] MCV 82 80 - 99 fL [facility] MCH 27 27 - 34 pg [facility] MCHC 33 32 - 36 % [facility] RDW 14.5 9.0 - 14.5 % [facility] Platelet Count 219 140 - 400 TH/uL [facility] MPV 11.2 9.4 - 12.3 fL [facility] Nucleated RBCs 0 0 - 0 /100 [facility] % Neutrophils 71 45 - 78 % [facility] %Lymphocytes 22 15 - 47 % [facility] %Monocytes 6 0 - 12 % [facility] %Eosinophils 1 0 - 7 % [facility] %Basophils 0 0 - 2 % [facility] % Imm Grans 0 0 - 1 % [facility] # Granulocytes 6.79 1.70 - 6.80 TH/uL [facility] # Lymphocytes 2.08 1.00 - 3.30 TH/uL [facility] # Monocytes 0.55 0.20 - 0.90 TH/uL [facility] # Eosinophils 0.12 0.00 - 0.40 TH/uL [facility] # Basophils 0.04 0.00 - 0.10 TH/uL [facility] Specimen Blood Performing Organization Address City/State/Zipcode Phone Number [facility] [phone] [place] [address] * Comprehensive Metabolic Panel (12/12/2016 3:06 PM CDT) Sodium 139 133 - 147 MEQ/L [facility] Potassium 3.7 3.5 - 5.3 MEQ/L [facility] Chloride 102 96 - 112 MEQ/L [facility] Carbon Dioxide 28 20 - 32 MEQ/L [facility] Anion Gap 9 5 - 17 [facility] Calcium 9.6 8.4 - 10.5 mg/dL [facility] Glucose 122 (H) 70 - 100 mg/dL [facility] Protein Total 6.8 6.0 - 8.2 g/dL [facility] Serum [facility] Albumin 3.7 3.5 - 5.0 g/dL [facility] Alkaline 88 42 - 140 IU/L [facility] Phosphatase [facility] Alanine 36 13 - 69 IU/L [facility] Aminotransferas [facility] e Aspartate 27 15 - 46 IU/L [facility] Aminotransferas [facility] e Bilirubin Total 1.2 0.2 - 1.3 mg/dL [facility] Blood Urea 14 7 - 26 mg/dL [facility] Nitrogen [facility] Creatinine 0.6 0.4 - 1.1 mg/dL [facility] eGFR Female AA 121 60 - 200 [facility] Comment: [facility] Chronic Kidney Disease less than 60 mL/min/1.73 sq.m Kidney failure less than 15 mL/min/1.73 sq.m eGFR Female 101 60 - 200 [facility] Non-AA Comment: [facility] Chronic Kidney Disease less than 60 mL/min/1.73 sq.m Kidney failure less than 15 mL/min/1.73 sq.m Specimen Blood Performing Organization Address City/State/Zipcode Phone Number [facility] [address] [place] [address] documented in this encounter Visit Diagnoses Diagnosis CAP (community acquired pneumonia) - Primary Pneumonia, organism unspecified documented in this encounter Administered Medications Action Date Dose Rate Site Medication Order MAR Action 12/12/2016 4:04 PM CDT 300 Units heparin (PF) 100 unit/mL injection 300 Given Units 300 Units, Intravenous, Once, Rin 12/12/16 at 1604, For 1 dose 12/12/2016 3:21 PM CDT 1,000 mL 2000 mL/hr sodium chloride 0.9% (NS) IV Bolus New Bag 1,000 mL, Intravenous, Administer over 30 Minutes, Once, Rin 12/12/16 at 1454, For 1 dose documented in this encounter
--- OUTSIDE RECORDS SUMMARY | 2019-03-30 12:02 | XMS REPORT | Encounter Summary ---
Author Author [facility] Address Unknown Phone Unavailable Care Team Providers Care Pawn Shop Keeper Name Role Phone Adolfo Cardenas MD PCP Reason for Visit * Reason Comments Shortness of Breath Short of breath at pain clinic. Pt states she is always on Cpap machine. PT on cpap upon arrival of EMS. * Auth/Cert Referred By Contact Referred To Contact Status Reason Specialty Diagnoses / Procedures Diagnoses Shortness of breath Dyspnea, unspecified type Shortness of breath Encounter Details Care Team Description Date Type Department Valdo Park MD [address] [place], [place] [id number] Anastasia Kaba DO [address] [place], [place] [id number] [place] [address] [place], [place] [address] Alejo Mancini DO [address] [place] [address] [phone] Shortness of breath (Primary Dx); Dyspnea, unspecified type; Obesity, unspecified classification, unspecified obesity type, unspecified whether serious comorbidity present 03/26/2018 [facility] 03/30/2018 [address] [place] [address] Social History Date Tobacco Use Types Packs/Day [...] Signs Reading Time Taken Comments Vital Sign 142/64 03/30/2018 1:08 PM CDT Blood Pressure 67 03/30/2018 1:08 PM CDT Pulse 36.7 C (98 F) 03/30/2018 1:08 PM CDT Temperature 20 03/30/2018 1:08 PM CDT Respiratory Rate 92% 03/30/2018 1:08 PM CDT Oxygen Saturation - - Inhaled Oxygen Concentration 103.3 kg (227 lb 11.2 oz) 03/30/2018 3:43 AM CDT Weight 167.6 cm (5' 6") 03/26/2018 12:48 PM CDT Height 36.75 03/26/2018 12:48 PM CDT Body Mass Index documented in this encounter Discharge Summaries * Alejo Mancini DO - 03/30/2018 1:[address] [facility]charge Summary Patient Name: Micki Kelley Account No: [id number] Date of : 1950 Date of Admission: 03/26/2018 12:46 PM Date of Discharge: 03/30/2018 1:34 PM Length of Stay: 1 Days Readmit Risk: 12 Primary Care Physician: Adolfo Cardenas MD; Reason for Hospital Admission and Brief Hospital Course: Ms. Kelley is a 67 y/o female that was admitted with c/o dyspnea. She was referred from pain clinic. S he was admitted and underwent CTA that was negative for PE. She was seen by pulm onary. She had ABG that was normal for her abg. Suspect that her dyspnea is mult ifactorial related to her obesity, GRACE, and marked deconditioning. She had a 6MW T and did not require oxygen. She has clinically improved and pulmonary s/o. She also has noted diarrhea issues, has dx salmonella and was treated outpatient . Her stool was + here and ID consulted. It is likely chronic carrier. Stool cu lture has been obtained, but recommendations were to observe off antibiotics. W e will f/u this outpatient. The patient's discharge plan was discussed fully with the patient, the patient's family/friend, another physican and nursing staff. All [...] activity as tolerated Scheduled Follow Up Appointments/Studies ([facility] Providers): No future appointments. Additional Discharge Follow [...] 11.2 oz) BMI: Body mass index is 36.7 5 kg/m. Physical Exam: Gen: Calm, cooperative CV: [...] Hepatic steatosis and probable hepatomegaly. READING SITE: [facility] Xr Chest Single View Frontal Result Date: [...] greater than 30 minutes. Alejo Mancini DO [facility] Please page through physician paging. . documented in this encounter Discharge Instructions * Attachments The following attachments cannot be sent through Care Everywhere.* Activity Tips, Diabetes (Gambian) * Diabetes and Heart Disease (Gambian) * Diabetes, Long-Term Complications (Gambian) * Diarrhea, Treating (Gambian) * Metformin tablets (Gambian) * GEMFIBROZIL (MAURITANIAN) * Strength Training, Understanding (Gambian) * SALMONELLA GASTROENTERITIS (ADULT) (MAURITANIAN) documented in this encounter Medications at Time [...] by mouth nightly as needed for sleep. 11/30/2018 acyclovir (ZOVIRAX) 5 % Apply 0 cream topically as directed. documented as of this encounter Progress Notes * Alejo Mancini DO - 03/29/2018 11:[address] [facility] Hospitalist - Progress Note Patient Name: Micki Kelley Account No: [id number] Date of : 1950 Date of Admission: 03/26/2018 12:46 PM Subjective Follow up regarding dyspnea/diarrhea Feeling better Still with significant SOA on exertion No fevers No cough Denies other symptoms Review of Systems: A 4-point review of systems was performed and was negative ex cept as noted above. Objective Vital Signs: Temp: 36.6 C (97.8 F) Pulse: (!) 105 (just finished walking) Re sp: 20 BP: (!) 145/64 SpO2: 95 % Height: 167.6 cm (5' 6") Weight: 108.9 kg (240 lb 1.3 oz) No intake/output data recorded. [...] have personally reviewed the patient's vital signs, laboratory/pathology/cultu re results (as indicated), imaging studies (results were not discussed with the performing provider), current inpatient medications, salesforce consultant notes, support s taff notes, prior admission/outpatient notes and prior to admission medications with pertainent findings noted within the assessment/plan. I have personally spo osei with the patient, the patient's family/friend and nursing staff regarding th is patient's case. Assessment/Plan Ms. Micki Kelley is a 67 y.o. female who was admitted on 03/26/2018 with Shortn ess of Breath. Problems addressed with today's visit include: Shortness of breath Reviewed echo, has mild diastolic dysfunction but no evidence of decompensated heart failure suspect deconditioning, GRACE, restrictive dz from obesity Appreciate pulmonary assistance, they have s/o Encourage ambulation monitor Type 2 diabetes mellitus with hyperglycemia, without long-term current use of in sulin (HCC) Metformin was held since 03/21 d/t [...] outpatient Hepatic steatosis Identified on CT at [facility] 10/26/17, LFTs normal on admission - Recommend weight loss Follow up with [facility] Diarrhea Dx salmonella in October, had diarrhea since Had colonoscopy outpatient ID consulted as GI pathogen + salmonella but likely carrier state D/w Dr. Peralta Stool culture ordered No antibiotics at this time See my orders for additional details regarding this patients treatment plan. Room: [address] [place] [address] Diet: Diet-Low Fat/Chol, 2gm Na, Consistent Carbohydrate [...] Subcutaneous 4 times daily before meals and nightl y mirabegron 50 mg Oral Daily oxybutynin 5 mg Oral BID pantoprazole 40 mg Oral Daily pramipexole 1 mg Oral TID pravastatin 80 mg Oral Nightly Continuous Infusions: PRN Meds: ALPRAZolam, dextrose 50% OR dextrose OR dextrose 10%, glucagon OR gl ucagon, magnesium sulfate, potassium chloride, potassium chloride, potassium chl oride in water, prochlorperazine, zolpidem Alejo Mancini DO [facility] Please page through physician paging. . * Helen Tello, SHEET METAL DUCT INSTALLER - 03/29/2018 10:34 AM CDT 6 MINUTE WALK Patient Name: Micki Kelley CPI: [id number] Date: March 29, 2018 Patient Active Problem [...] mellitus with hyperglycemia, without long-term current use o f insulin (HCC) TYPE 2 DIABETES MELLITUS Hyperlipemia [...] Garcia MD - 03/29/2018 7:57 AM CDT PULMONARY PROGRESS NOTE DATE: 03/29/2018 PATIENT NAME: Micki Kelley : 1950 AGE: 67 y.o. CC: SUBJECTIVE: Still having dyspnea on exertion. Per chart walked @ 400 witht compl ained of shortness of breathe. Allergies: Patient has no known allergies. CURRENT ACTIVE MEDICATIONS: aspirin 325 mg Oral Daily citalopram 10 mg Oral Daily docusate sodium 100 mg Oral BID gabapentin 300 mg Oral TID gemfibrozil 600 mg Oral BID AC heparin (porcine) 5,000 Units Subcutaneous Q8H hydroCHLOROthiazide 25 mg Oral Daily insulin lispro 2-7 Units Subcutaneous 4 times daily before meals and nightl y mirabegron 50 mg Oral Daily oxybutynin 5 mg Oral BID pantoprazole 40 mg Oral Daily pramipexole 1 mg Oral TID pravastatin 80 mg Oral Nightly albuterol, ALPRAZolam, dextrose 50% OR dextrose OR dextrose 10%, glucago n OR glucagon, ipratropium-albuterol, magnesium sulfate, potassium chloride, [...] mellitus with hyperglycemia, without long-term current use o f insulin (HCC) Hyperlipemia Overactive bladder Hepatic steatosis Pain, neuropathic S/P partial thyroidectomy PLAN: Pt is on no O2 and is no longer hypoxic. However, will do an official 6 minut es walk to assess her sat with activity. No need for nebs or albuterol. She does pant rather than wheeze. Clinical history and data all suggestive of marked deconditioning worsen by h er obesity especially in the truncal area. Counseled patient for weight reducti on. She need to increase progressively increase her level of activity. I have informed both patient and her of my finding I have emphasized the need for her to do more judicious diet and increase gradually her level of acti vity to get back into shape. Status post right total knee replacement with chronic pain and swelling may b e a barrier As an outpatient full pulmonary function study can be obtained. Suspect she may have restrictive lung disease consistent with her obesity. Fermin sign off. If need further pulmonary input , please reconsult or call bhavna gates. thanks Obstructive sleep apnea on CPAP of 10 cm. Patient has acclimated and can con tinue to use this. Electronically signed by Archana Garcia 03/29/2018 7:57 AM * Helen Tello, RADHA - 03/28/2018 2:52 PM CDT Walked with patient 400 feet sat 97%, heart rate 92. Patient complained of short ness of breathe. * Alejo Mancini DO - 03/28/2018 8:52 AM CDT [facility] Hospitalist - Progress Note Patient Name: Micki Kelley Account No: [id number] Date of : 1950 Date of Admission: 03/26/2018 12:46 PM Subjective Follow up regarding dyspnea/diarrhea Diarrhea since Oct 31 (dx salmonella), took 1 week antibiotics Was seen by GI at and had colonoscopy Having 6-8 stools Staying in bed 20 hours per day with cpap Doesn't feel like going anywhere Stopped gabapentin 600mg TID cold , but resumed at home at lower dose as s till had some pills left Notes lots of stress at home No chest pain Review of Systems: A 4-point review of systems was performed and was negative ex cept as noted above. Objective Vital Signs: Temp: 36.7 C (98 F) Pulse: 69 Resp: 18 BP: 112/46 SpO2: 95 % He ight: 167.6 cm (5' 6") Weight: 108.9 kg [...] have personally reviewed the patient's vital signs, laboratory/pathology/cultu re results (as indicated), imaging studies (results were not discussed with the performing provider), current inpatient medications, salesforce consultant notes, support s taff notes, prior admission/outpatient notes and prior to admission medications with pertainent findings noted within the assessment/plan. I have personally spo osei with the patient, the patient's family/friend and nursing staff regarding th is patient's case. Assessment/Plan Ms. Micki Kelley is a 67 y.o. female who was admitted on 03/26/2018 with Shortn ess of Breath. Problems addressed with today's visit include: Shortness of breath Reviewed echo, has mild diastolic dysfunction but no evidence of decompensated heart failure Certainly could be component of deconditioning, GRACE, restrictive dz from obesity Pulmonary consulted CTA reviewed monitor Type 2 diabetes mellitus with hyperglycemia, without long-term current use of in sulin (HCC) Metformin was held since 03/21 d/t [...] outpatient Hepatic steatosis Identified on CT at [facility] 10/26/17, LFTs normal on admission - Recommend weight loss Follow up with [facility] Diarrhea Dx salmonella in October, had diarrhea since Had colonoscopy outpatient ID consulted as GI pathogen + salmonella See my orders for additional details regarding this patients treatment plan. Room: [address] [place] [address] Diet: Diet-Low Fat/Chol, 2gm Na, Consistent Carbohydrate [...] Subcutaneous 4 times daily before meals and nightl y mirabegron 50 mg Oral Daily oxybutynin 5 mg Oral BID pantoprazole 40 mg Oral Daily pramipexole 1 mg Oral TID pravastatin 80 mg Oral Nightly Continuous Infusions: PRN Meds: albuterol, ALPRAZolam, dextrose 50% OR dextrose OR dextrose 10%, glucago n OR glucagon, ipratropium-albuterol, magnesium sulfate, potassium chloride, potassium chloride, potassium chloride in water, prochlorperazine, zolpidem Alejo Mancini DO [facility] Please page through physician paging. . * Juan Pyle MD - 03/27/2018 3:[address] [facility] Hospitalist - Progress Note Patient Name: Micki Kelley Account No: [id number] Date of : 1950 Date of Admission: [...] Resp: 20 BP: 139/75 SpO2: 94 % He ight: 167.6 cm (5' 6") Weight: 108.9 kg (240 lb 1.3 oz) I/O last 24 Hours: In: 360 [P.O.:360] Out: 2650 [Urine:1950; Stool:700] Physical Exam: Gen: NAD CV: RRR, no murmurs Resp: CTAB Abd: S/ND/NT, +BS Ext: No c/c/e Neuro: A/Ox3, no focal neurologic deficits I have personally reviewed the patient's vital signs, laboratory/pathology/cultu re results (as indicated), current inpatient medications and clerical support notes with pertainent findings noted within the assessment/plan. Assessment/Plan Ms. Micki Kelley is a 67 y.o. female with chronic pain secondary to abdominal adhesions (follows with pain management, left anterior chest port), partial thy roidectomy (undergoing monthly thyroid studies for maintenance), NIDDM2, hyperte nsion, hyperlipidemia who presented to [facility] from the pain clinic on 03/26/18 with w orsening shortness of breath and hypoxia. Patient reported progressive dyspnea on exertion (walking any more than 10-20 feet), wheezing, heart palpitations sin ce October 2017 (treated for PNA/influenza A few months prior). Only alleviating interventions are CPAP use throughout the day (was not using it prior to 6 kiesha hs ago because she had repeat sleep study that was normal). She was evaluated i n ED at [facility] in October, noted to have relatively normal LV function and CT chest without VTE, possible bronchiolitis. She was referred to Pulmonology but has bee n unable to get an appointment until May [...] with hyperglycemia, without long-term current use of in sulin (HCC) Metformin was held since 03/21 d/t [...] cascade Hepatic steatosis Identified on CT at [facility] 10/26/17, LFTs normal on admission - Recommend weight loss Diarrhea - recent salmonella diagnosis and abx for that about 2 mos ago - continued diarrhea w/ elevated pct - stool panel pending See my orders for additional details regarding this patients treatment plan. Room: [address] [place] [address] Diet: Diet-Low Fat/Chol, 2gm Na, Consistent Carbohydrate [...] Subcutaneous 4 times daily before meals and nightl y mirabegron 50 mg Oral Daily oxybutynin 5 mg Oral BID pantoprazole 40 mg Oral Daily pramipexole 1 mg Oral TID pravastatin 80 mg Oral Nightly Continuous Infusions: PRN Meds: albuterol, ALPRAZolam, dextrose 50% OR dextrose OR dextrose 10%, glucago n OR glucagon, ipratropium-albuterol, magnesium sulfate, potassium chloride, potassium chloride, potassium chloride in water, prochlorperazine, zolpidem Juan Pyle MD [facility] Please page through physician paging. . * Last Roman, UPPER CASER-UROLOGY SURGEON - 03/26/2018 5:48 PM CDT Respiratory Care Services Initial Consultation Note Name: Micki Kelley CPI: [id number] Micki Kelley was evaluated per [facility] Consultation on March 26, 2018 at 1748 for respiratory therapy intervention needs. History Assessment The patient is hospitalized for Active Hospital Problems Diagnosis Shortness of breath Essential hypertension Type 2 diabetes mellitus with hyperglycemia, without long-term current use o f insulin (HCC) Hyperlipemia Hepatic steatosis Pain, neuropathic [...] 25-50 mL 25-50 mL Intravenous PRN Andrea Merlos NP Or dextrose (D50W) 50 % injection 25-50 mL 25-50 mL Intravenous PRN Andrea Jensen NP Or dextrose 10% (D10W) bolus 125-250 mL 125-250 mL Intravenous PRN Andrea berg NP docusate sodium (COLACE) capsule 100 mg [...] 5,000 unit/mL injection 5,000 Units 5,000 Units Subcutane ous Q8H Andrea Namol, STAFF ELECTRONIC [employer] OFFICER insulin lispro (HumaLOG) injection 2-7 Units 2-7 Units Subcutaneous 4 times daily before meals and nightly Andrea Adnrepool, STAFF E[employer] OFFICER ipratropium-albuterol (DUO-NEB) 0.5-3 mg/3 mL nebulizer solution 3 mL 3 mL Inhalation 4x Daily PRN Anastasia Kaba DO magnesium sulfate IVPB 4 gram (premix) 4 g Intravenous PRN Andrea Andrepoo l, STAFF E[employer] OFFICER mirabegron (MYRBETRIQ) ER tablet 50 mg 50 mg Oral Daily Andreaschuyler Andrepool, STAFF E[employer] OFFICER oxybutynin (DITROPAN) tablet 5 mg 5 mg Oral BID Andrea Andrepool, STAFF E[employer]IC [employer] OFFICER pantoprazole (PROTONIX) EC tablet 40 mg 40 mg Oral Daily Andrea Andrepool, STAFF E[employer] OFFICER potassium chloride (KAYCIEL) 20 mEq/15 mL solution 20-60 mEq 20-60 mEq Oral PRN Andrea Andrepool, STAFF E[employer] OFFICER potassium chloride (KLOR-CON) CR tablet 20-60 mEq 20-60 mEq Oral PRN Andrea Andrepool, STAFF ELECT[employer] OFFICER potassium chloride 20 mEq in 100 mL IVPB 20 mEq Intravenous PRN Andrea Monroe erpool, STAFF E[employer] OFFICER pramipexole (MIRAPEX) tablet 0.125 mg 0.125 mg Oral BID Andrea Richard, STAFF [employer] OFFICER pravastatin (PRAVACHOL) tablet 80 mg 80 mg Oral Nightly Andrea Andrepool, STAFF E[employer] OFFICER prochlorperazine (COMPAZINE) injection 5 mg 5 mg Intravenous Q4H PRN Valdo Park MD zolpidem (AMBIEN) tablet 5 mg 5 mg Oral Nightly PRN Danielle Gray, Marco AntonioD Physical Assessment The patient's has the following signs/symptoms evaluated to determine criteria f or service: SaO2 96% on 0 LPM, HR 79 bpm, Temp 36.6 Patient is spontaneously breathing Breath Sounds Clear Diminished Respiratory Pattern Normal Cough NPC Sputum na Color na Amount na Other na Protocol The patient meets criteria for Respiratory Care Service based upon the assessmen t above. Treatment Plan The treatment plan identified for the patient is Oxygen Therapy and GRACE Discharge Considerations Not Applicable Associated attestation - Anastasia Kaba DO - 03/26/2018 6:13 PM CDT Attestation error documented in this encounter H&P Notes * Andrea Olguin NP - 03/26/2018 4:48 PM CDT [facility] Hospitalist - History & Physical Patient Name: Micki Kelley Account No: [id number] Date of : 1950 Date of Admission: 03/26/2018 12:46 PM Primary Care Physician: Adolfo Cardenas MD; Subjective Chief Complaint: Shortness of Breath History of Present illness: Ms. Micki Kelley is a 67 y.o. female with chronic pain secondary to abdominal adhesions (follows with pain management, left anter ior chest port), partial thyroidectomy (undergoing monthly thyroid studies for chandana matthews), NIDDM2, hypertension, hyperlipidemia who presented to [facility] from the pain clinic on 03/26/18 with worsening shortness of breath and hypoxia. Patient re ports progressive dyspnea on exertion (walking any more than 10-20 feet), wheezi ng, heart palpitations since October 2017 (treated for PNA/influenza A few months prior). Only alleviating symptoms are CPAP use throughout the day (was not using it prior to 6 months ago because she had repeat sleep study that was normal. S he was evaluated in ED at [facility] in October, noted to have relatively normal LV func tion and CT chest without VTE, possible bronchiolitis. She was referred to Pulmo nology but has been unable to get an appointment until May at the earliest. She was seen by Cardiology on 03/11/18, 24 holter monitor with no acute abnormali ties, formal echo was ordered but had not obtained yet. She presented to ED in [facility] on Wednesday 03/21, has CT which was "normal", was given duoneb tx and p rescribed Ventolin inhaler and discharged with instructions to follow with Pulmo nology. Review of Systems: A 10-point review of systems was performed and was negative e xcept as noted above. Past Medical History: She has a past medical history of Chronic pain (2012); Giana betes mellitus (HCC); Diabetes mellitus, type II (HCC); H/O partial thyroidectom y; Hyperlipemia; and Hypertension. Past Surgical History: She has a past surgical history that includes SE CTION; Abdominal hernia repair; Tonsillectomy; Appendectomy; Hysterectomy; REPAI R, KNEE, MENISCUS (Bilateral); Rotator cuff repair (Right); REPAIR, CHIARI MALFO RMATION; Abdominal adhesion surgery; Cholecystectomy; Vascular surgery; CATARACT SURGERY (Bilateral); Joint replacement (Right); Thyroidectomy, partial; and Knee surgery. Family History: She has no family status information on file. Her family history is not on file. Social History: She reports that she quit smoking about 46 years ago. Her smokin g use included Cigarettes. She started smoking about 49 years ago. She has a 0.7 5 pack-year smoking history. She has never used smokeless tobacco. She reports t hat she drinks alcohol. She reports that she [...] by mouth 2 (two) times a day befor e breakfast and dinner. hydroCHLOROthiazide (HYDRODIURIL) 25 MG tablet Take 25 mg by mouth daily. metformin (GLUCOPHAGE) 500 mg tablet Take 500 mg by mouth 2 (two) times a day wi th meals. oxybutynin (DITROPAN) 5 MG tablet Take 5 mg by mouth 2 (two) times a day. pramipexole (MIRAPEX) 0.125 MG tablet Take 0.125 mg by mouth 2 (two) times a day . simvastatin (ZOCOR) 40 MG tablet Take 40 mg by mouth nightly. zolpidem (AMBIEN CR) 12.5 MG CR tablet Take 12.5 mg by mouth nightly as needed f or sleep. Objective Triage Vital Signs: Temp: 36.6 [...] lobes, no wheezes, crackles, or rhonchi, left ante rior chest port Abd: S/ND/NT, +BS, no guarding or rebound Ext: No c/c/e Skin: Warm, dry, & intact with no obvious rashes or significant lesions Neuro: A/Ox4, strength and sensation intact, no focal neurologic deficits ECG personally reviewed with the following findings noted: normal ECG, normal si nus rhythm, heart rate: 91 bpm, appears non-ischemic I have personally reviewed the patient's vital signs, laboratory/pathology/cultu re results (as indicated), ECG, current inpatient medications, clerical support not es, prior admission/outpatient notes, prior to admission medications and outside medical records with pertainent findings noted within the assessment/plan. I mcelroy ve personally reviewed and updated the patient's past medical history, past surg ical history, family history and social history as appropriate. Assessment/Plan Ms. Micki Kelley is a 67 y.o. female who was admitted on 03/26/2018 with compla int of Shortness of Breath. Shortness of breath [...] with hyperglycemia, without long-term current use of in sulin (HCC) Metformin was held since 03/21 d/t [...] cascade Hepatic steatosis Identified on CT at [facility] 10/26/17, LFTs normal on admission - Recommend weight loss In addition, see my orders for additional details regarding this patients treatm ent plan. Diet: regular and Simply healthy/CC VTE Prevention: Heparin subcutaneous Sequential Compression Device (SCD's) The patient does have an advanced directive. Her spouse/partner is her surrogate decision maker/DPOA. Code Status: Full Code; I explained CPR, drug protocol, defibrillation, and lif e support measures in detail including intubation and mechanical ventilation. Th e patient has decided on a code status of FULL CODE. Disp: Admit the patient as Observation to intermediate with telemetry for treatm ent as noted above. Andrea Olguin NP [facility] Please page through physician paging. . Associated attestation - Anastasia Kaba DO - 03/26/2018 6:[address] [facility] Hospitalist - History & Physical Patient Name: Micki Kelley Account No: [id number] Date of : 1950 Date of Admission: 03/26/2018 12:46 PM [facility] Hospitalist - Progress Note Patient Name: Micki Kelley Account No: [id number] Date of : 1950 Date of Admission: 03/26/2018 12:46 PM MANAGER PRIMARY Hospitalist Attestation: I personally interviewed and examined the Ms. Micki Kelley. I discussed the f indings with nurse practitioner and reviewed the nurse practitioners note. I agr ee the findings with exceptions noted. Ms. Micki Kelley is a pleasant female who presents to the hospital with Shortne ss of breath progressive in nature and worsening with significant dyspnea even n oted with ambulation even in the emergency room. The patient is known to have a history of sleep apnea has been using his CPAP with mild improvement in of her symptoms. she has noted a significant amount of weight gain over the last sever al months. She previously had a cardiac workup and was told everything was "nor mal". Objective findings and Assessment/Plan are as follows: Vital Signs: Blood pressure (!) 161/79, pulse 79, temperature 36.6 C (97.9 F), temperatur e source Oral, resp. rate 22, height 1.676 m (5' 6"), weight 108.9 kg (240 lb 1. 3 oz), SpO2 96 %. SpO2: 96 % [...] Upper and Lower extremities strength, proximal and dis jennifer, 5/5 bilateral and equal pcxr personally reviewed [...] PPx: heparin Code Status: Full Code Anastasia [facility] [phone] Electronically signed by Anastasia Kaba DO 03/26/2018 6:03 PM cc: Adolfo Cardenas MD documented in this encounter Consult Notes * Leonid Peralta MD - 03/29/2018 11:14 AM CDT This is a 67-year-old female admitted on the 03/26/2018 with shortness of breath and a decreased oxygen saturation. She initially presented to the [facility] in [place], [place]. CT scan of the chest was said to be negative for pulmonary embolism. She was discharged to follow up with pulmonary, but ul timately admitted here at [facility]. PAST MEDICAL HISTORY: Extensive and includes chronic abdominal pain, type 2 giana betes, hypertension, hyperlipidemia, obstructive sleep apnea. She reportedly mcelroy d influenza A and pneumonia in October 2017. She also developed what sounds like acute salmonella gastroenteritis in October 2017. She apparently had routine cult ures that ultimately sent to the state and treated with an oral antibiotic for 7 days. Since then she has had abnormal stools, perhaps 5-6 bowel movements per day, nearly all postprandial and partially formed with a pudding like consistenc y. No liquid stools, no blood, no mucus. PAST SURGICAL HISTORY: Includes a left partial thyroidectomy, , append ectomy, hysterectomy, cholecystectomy, bilateral knee surgeries with a right tot al knee replacement, rotator cuff repair, lysis of adhesions, bilateral cataract extractions, and right total knee replacement. FAMILY HISTORY: Reviewed and is not pertinent to this admission. SOCIAL HISTORY: Notable for past tobacco use. Minimal use more than 46 years a go. She uses alcohol only socially. No illicit drugs. MEDICATIONS: Prior to admission are reviewed. No antibiotics, no immunosuppres sives. She denies any antibiotic allergies. REVIEW OF SYSTEMS: The shortness of breath and hypoxia is apparently resolved. A 10-point system review otherwise as per the present illness. Review of the h ospital record reveals that she has been seen by pulmonary. No hypoxia. Marked deconditioning, obstructive sleep apnea with abnormal stools. A GI PCR panel was performed and is positive for Salmonella by PCR that is what led to the infectious disease consultation. Review of the graphics reveals she has been afebrile. White count 7.5. Electrolytes normal, creatinine 0.6. Tota l bilirubin 0.7 with normal liver enzymes. Albumin 3.7 with a calcium of 9.0. Cardiac enzymes negative. Hemoglobin A1c 8.1, consistent with poorly controlled diabetes. TSH 2.67. Procalcitonin 0.3. Chest x-ray is viewed personally nega tive. CT angiogram negative for PE, as mentioned. Some nonspecific patchy grou nd glass infiltrates. A respiratory PCR panel is negative. The patient has not received any antibiotics. PHYSICAL EXAMINATION: GENERAL: She is awake and alert and nontoxic appearing. EYES: Negative. OROPHARYNX: Clear. NECK: Supple without lymphadenopathy. CHEST: Clear. CARDIAC: Without pathologic murmurs, rubs, or gallops. ABDOMEN: Obese but benign. The patient weighs 108.9 kilograms. No costoverteb ral angle or suprapubic tenderness. EXTREMITIES: Without clubbing or cyanosis. NEUROLOGIC: Nonfocal. IMPRESSION: My impression is that this patient appears to have presented with a cute salmonella gastroenteritis in October 2017. Whether this required antibiotic s is unclear. Patient does not need any of the criteria for treating a salmonel la gastroenteritis which is a self-limited illness. In any event, she did recei ve a week of an unknown antibiotic and [...] would like to confirm that the patient act ually has a viable salmonella and obtain sensitivities should treatment become n ecessary. As mentioned above, the patient is status post a cholecystectomy, whi ch is thought to be a reservoir for Salmonella carriage. PLAN: At this time will be to obtain a stool for culture and sensitivity. We w ill elect to observe off of antibiotics. As again, I do not believe that chroni c salmonella carriage relates to this patient abnormal bowel pattern which is no t truly a diarrhea. The patient does not meet indications for treatment of drawer liner maureen salmonella carriage which would include work in the food industry, a daycare , or a severely immunocompromised person in the household. As always thank you for the referral. * Archana Garcia MD - 03/28/2018 5:02 PM CDT Associated Order(s): IP CONSULT TO PULMONOLOGY PULMONARY CONSULT DATE: 03/28/2018 PATIENT NAME: Micki Kelley : 1950 AGE: 67 y.o. REASON FOR CONSULT: soa/dyspnea/hypoxia CONSULT REQUESTED BY: Alejo Mancini DO PCP: Adolfo Cardenas MD CHIEF COMPLAINT: Shortness of breath HISTORY OF PRESENT ILLNESS: 67-year-old female who stated that she was at the doctor's office for pain injec tion when she stated that she cannot breathe was noted to have saturation of 84% . She was brought to the hospital and admitted. Patient stated that her shortn ess of breath has been progressive in nature for good while. She stated that she had a total knee replacement January 2016. Patient underwent r ehab afterward and followed all the activities from the rehab. However, when sh raquel was on her own, she started having right knee pain. In addition, she stated t hat her knee swelled up when she did much activities. Thus, progressively she h as cut back on her level of activity. She felt so short of breath that she retr ieved her CPAP in September 13, 2017 and started using it.She had a diagnosis of o bstructive sleep apnea in 2008 but has never [...] She has no previous diagnosis of any pul monary problem. She denied chronic cough wheezing sputum production with chest discomfort. CTA on admission has been negative for pulmonary embolism. She smo ked at most quarter pack a day for 18 month in [id number] she has no occupational exposure. When questioned she admits that she gained about 20 to 30 pound the last several months. There is no occupational exposure such as coal mining, fou ndry, sandblasting, and asbestos. 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 She has had negative cardiac workup. Currently she had dyspnea on exertion up t o about 20 feet or so. REVIEW OF SYSTEMS: I have performed 10 points ROS. Pertinent positives are as li sted above in history of present illness. Past [...] of assistive devices other than CPAP at [facility]. She does have and AD/LW, her DPOA [...] mg per tablet Take 1 Tablet by [facility] 4 times daily as needed for Diarrhea/Loose Stools. estradiol (ESTRACE) 0.01 % (0.1 mg/gram) vaginal cream Insert vaginally maximo y. gabapentin (NEURONTIN) 600 MG tablet Take 600 mg by mouth 3 (three) times a day. 03/25/2018 at Unknown time mirabegron (MYRBETRIQ) 50 mg Tb24 tablet 50 mg. pantoprazole (PROTONIX) 40 MG tablet 40 mg. acyclovir (ZOVIRAX) 200 MG capsule Take 200 mg by mouth daily. 03/26/2018 at Unknown time acyclovir (ZOVIRAX) 5 % cream Apply topically as directed. More than a mon th at Unknown time ALPRAZolam (XANAX) 1 MG tablet Take 1 mg by mouth at bedtime. 03/25/2018 at Unknown time diazePAM (VALIUM) 5 MG tablet Take 5 mg by mouth daily. 03/25/2018 at Unknow n time docusate sodium (COLACE) 100 MG capsule 100 mg. gemfibrozil (LOPID) 600 MG tablet Take 600 mg by mouth 2 (two) times a day b efore breakfast and dinner. 03/25/2018 at Unknown time hydroCHLOROthiazide (HYDRODIURIL) 25 MG tablet Take 25 mg by mouth daily. 03/26/2018 at Unknown time metformin (GLUCOPHAGE) 500 mg tablet Take 500 mg by mouth 2 (two) times a da y with meals. 03/26/2018 at Unknown time oxybutynin [...] Take 12.5 mg by mouth nightly as need ed for sleep. 03/25/2018 at Unknown time CURRENT ACTIVE MEDICATIONS: aspirin 325 mg Oral Daily citalopram 10 mg Oral Daily docusate sodium 100 mg Oral BID gabapentin 300 mg Oral TID gemfibrozil 600 mg Oral BID AC heparin (porcine) 5,000 Units Subcutaneous Q8H hydroCHLOROthiazide 25 mg Oral Daily insulin lispro 2-7 Units Subcutaneous 4 times daily before meals and nightl y mirabegron 50 mg Oral Daily oxybutynin 5 mg Oral BID pantoprazole 40 mg Oral Daily pramipexole 1 mg Oral TID pravastatin 80 mg Oral Nightly albuterol, ALPRAZolam, dextrose 50% OR dextrose OR dextrose 10%, glucago n OR glucagon, ipratropium-albuterol, magnesium sulfate, potassium chloride, [...] co-operative, awake; on no oxygen, Able to la y flat comfortably on the bed Neurologic: AAO, [...] Hepatic steatosis and probable hepatomegaly. READING SITE: [facility] Xr Chest Single View Frontal Result Date: 03/26/2018 No acute disease. ASSESSMENT: Active Hospital Problems Diagnosis Diarrhea Shortness of breath Essential hypertension Type 2 diabetes mellitus with hyperglycemia, without long-term current use o f insulin (HCC) Hyperlipemia Overactive bladder Hepatic steatosis Pain, neuropathic S/P partial thyroidectomy ABG room air: PH 7.47 PCO2 34 PO2 74 PLAN: ABGs is normal for her age. Currently there is no evidence for hypoxia. Clinical history and data all suggestive of marked deconditioning worsen by h er obesity especially in the truncal area. Counseled patient for weight reducti on. She need to increase progressively increase her level of activity. I have informed both patient and her of my finding I have emphasized the need for her to do more judicious diet and increase gradually her level of acti vity to get back into shape. Status post right total knee replacement with chronic pain and swelling may b e a barrier As an outpatient full pulmonary function study can be obtained. Suspect she may have restrictive lung disease consistent with her obesity. Obstructive sleep apnea on CPAP of 10 cm. Patient has acclimated and can con tinue to use this. Electronically signed by Archana Garcia 03/28/2018 5:02 PM documented in this encounter Nursing Notes * Tiff Vu, RN - 03/29/2018 8:05 AM CDT Pt complained of painful port site. No blood return (which is abnormal for jason ent) and pain with saline flush. I undressed the port and it easily dc'd. I as sume it had become deaccessed at some point in the night, she states she sleeps on the side of her port and also she was had a lot of pain with brushing her rebekah th. She told me her needle size is 3/4 in. When I went to reaccess the port us ing sterile process, the 3/4 in went in without trouble and gave a brisk blood r eturn. However, I feel that placing the biopatch may have contributed to the ne edle not staying accessed, so I did not place the biopatch with this access. Sh e may require a one in access needle if the biopatch is used in the future. * Ara Arnold RN - 03/28/2018 4:10 PM CDT 1525 Call made to game designer Dr. Garcia as patient has had pulmonary consult sin ce 03/26/18 and has not been seen. informed patient is here for SOA with excert ion and at rest and has not improved, patient is on RA and uses home CPAP at bed side as needed. Informed that CTA and CXR has been completed and hospitalist was awaiting pulm consult for evaluation and treatment. Dr. Garcia stated she has alre cecilia completed rounds at hospital today. Dr. Mancini notified. * Mary Anne Chavarria, GERARDO - 03/27/2018 5:09 AM CDT Ambulated pt around 2330. Pt requested walk to help with RLS. Pt sat 94-96% on R A during walk. documented in this encounter ED Notes * Valdo Park MD - 03/26/2018 12:54 PM CDT 03/26/2018 [facility] History Chief Complaint Patient presents with Shortness of Breath Short of breath at pain clinic. Pt states she is always on Cpap machine. PT on cpap upon arrival of EMS. HPI 67-year-old female with chronic shortness of breath who wears CPAP via nasal can nula almost "20 hours a day" presents today with shortness of breath. Per repor t from patient she was at the pain clinic to receive some injections, had not be en wearing any oxygen, states she "does not wear oxygen at home she does not juan jose lify" walked across the waiting room and became short of breath, was having diff iculty recovering, EMS was called. Upon arrival patient was placed on CPAP, her oxygen saturation was in the 80s on room air, states she is feeling much better now, is speaking in full sentences, pulse ox was at 99% on the CPAP machine. P atient denies any chest pain, does complain of shortness of breath, denies any f marly chills, denies any cough, states she was seen at the pain clinic for her i njections for her chronic back pain. Past Medical [...] regular rhythm and normal heart sounds. Exam revea ls no gallop and no friction rub. Pulmonary/Chest: Effort normal and breath sounds normal. No respiratory distress . She has no wheezes. She exhibits no tenderness. Abdominal: Soft. Bowel sounds are normal. She exhibits no distension. There is n o tenderness. There is no rebound and no guarding. Musculoskeletal: Normal range of motion. She exhibits no edema or tenderness. Neurological: She is alert and oriented to person, place, and time. No cranial n erve deficit. She exhibits normal muscle tone. Coordination normal. Skin: Skin is warm and dry. No rash noted. She is not diaphoretic. No erythema. Psychiatric: She has a normal mood and affect. Her behavior is normal. Thought c ontent normal. Nursing note and vitals reviewed. ED Course Procedures MDM The labs from this visit are Results for orders placed or performed during the hospital encounter of 03/26/18 (from the past 24 hour(s)) Electrocardiogram (ECG) [...] Hepatic steatosis and probable hepatomegaly. READING SITE: [facility] XR Chest single view frontal Final Result No acute disease. No follow-up provider specified. EKG: per my interpretation shows nsr with a rate of 91 . There are not any ST c hanges concerning for ischemia. Had long d/w patient, dramatic decline in function due to dyspnea and severe dys pnea with minimal activity, has exhausted outpatient resources and cannot get in to see pulmonary until May, today required ems and cpap to bring oxygen out of the 80s although clinicaly stable with improved oxygenation on 2L in ER, work up otherwise normal, admit for obs ED Clinical Impression 1. Shortness of breath 2. Dyspnea, unspecified type Patient ED Dispo ED Disposition Admit Valdo Prak MD 03/26/18 1616 Valdo Park MD 03/26/18 1616 * Keira Osman RN - 03/26/2018 12:50 PM [...] ago when she was receiving dilaudid injections. documented in this encounter Miscellaneous Notes * Discharge Planning - Sherrie Richter RN - 03/30/2018 2:09 PM CDT Discharge Planning Interventions General Discharge Note Patients Anticipated discharge destination: Home Self Care Follow up appt with Dr Sood scheduled for 06/11 @ 13:30 which was the earli est available. Additional discharge planning information: Left message with Dr Sood's offi ce requesting new patient pulmonary appt. Requested they contact patient to set up. F/U with PCP on 06/06/18 @ 10:40 . * Z - 2 MN Discharge Attestation - Alejo Mancini DO - 03/30/2018 1:24 PM CDT The patient is discharging sooner than expected because she has been admitted 2M N already * Plan of Care - Mary Anne Chavarria RN - 03/29/2018 7:25 PM CDT Problem: Knowledge Deficit Goal: Patient/family/caregiver demonstrates understanding of disease process, tr eatment plan, medications, and discharge instructions Outcome: Progressing [...] Progressing * Plan of Care - Gloria Busby RN - 03/29/2018 2:02 PM CDT Problem: Knowledge Deficit Goal: Patient/family/caregiver demonstrates understanding of disease process, tr eatment plan, medications, and discharge instructions Outcome: Progressing Patient verbalizes understanding of treatment/medications Problem: Safety Goal: Patient will be injury free during hospitalization Outcome: Progressing Patient has remained injury free during this shift. She uses call light appropri ately Problem: Nutrition Goal: Patient's nutritional intake is adequate Outcome: Progressing Patient's nutritional intake has been adequate during shift. Her oral care has b een done on her own and orders food on own. * Plan of Care - Mary Anne Chavarria RN - 03/28/2018 10:25 PM CDT Problem: Knowledge Deficit Goal: Patient/family/caregiver demonstrates understanding of disease process, tr eatment plan, medications, and discharge instructions Outcome: Progressing [...] is adequate Outcome: Progressing * Plan of Denisse - Ara Arnold RN - 03/28/2018 12:17 [...] Goal: Patient/family/caregiver demonstrates understanding of disease process, tr eatment plan, medications, and discharge instructions Outcome: Progressing [...] pain management, left anterior chest port), partial thy roidectomy (undergoing monthly thyroid studies for maintenance), NIDDM2, hyperte nsion, hyperlipidemia who presented to [facility] from the pain clinic on 03/26/18 with w orsening shortness of breath and hypoxia. Patient reported progressive dyspnea on exertion (walking any more than 10-20 feet), wheezing, heart palpitations sin ce October 2017 (treated for PNA/influenza A few months prior). Only alleviating interventions are CPAP use throughout the day (was not using it prior to 6 kiesha hs ago because she had repeat sleep study that was normal). She was evaluated i n ED at [facility] in October, noted to have relatively normal LV function and CT chest without VTE, possible bronchiolitis. She was referred to Pulmonology but has bee n unable to get an appointment until May at the earliest. She was admitted for dyspnea - etiology unclear. Pulmonary eval as of 03/27 pm is pending. Cont cpap. No clear evidence infection. She has diarrhea for 2 months with stool panel pending. Dispo: pending sx, pulm recs and stool study result * Therapy Note - Bree Short, OT - 03/27/2018 1:54 PM CDT 03/27/18 1200 OT Visit Info Initial OT Visit On 03/27/18 Assessed for Rehab Yes Past medical history reviewed through chart review: Yes Referral Reason OT eval and treat; SOB, dyspnea Ordering practitioner Lashanda Comorbidities pertaining to therapy diagnosis chronic pain, DM, h.o partial thyr oidectomy, HLD, HTN, R TKA, R rotator cuff repair Patient/Family Reports Pt resting in bed with CPAP on upon therapy arrival. Imer sandoval present at bedside. Pt reports she has had trouble with SOB for about the pas t year now, but it has been getting [...] Additional Comments Above is home set-up in [place], [place]. Pt and spouse also h ave a second floor condo here in in which she has to walk up steps to get up to condo and then everything is on one floor. Pt and spouse live in [place] f ull time, but all of pt's doctors are here in . Prior Function Level of [place] Independent with ADLs;Independent with functional transfer s;Independent with ambulation Receives Help From Family Comments Pt reports she spends most of her time at home, but will occasionally l eave the house and does drive. Pt's spouse assists as needed and she has her drake ceries delivered. Reports independent with dressing and bathing. At baseline, pt reports she gets very SOB and requires rest breaks to complete tasks. Reports s he does not qualify for home O2. ADL Grooming Supervision/Setup Grooming Type of Task Washing, Rinsing and/or Drying the face;Washing, Rinsing a nd/or Drying the hand Lower Body Dressing Supervision/Setup Lower Body Dressing, Type of Clothing Left sock;Right sock ADL Comments Pt ambulates in room SBA with no AD. Stands at stink to complete gr ooming with SBA, and seated EOB to doff/don socks. Cognition Overall Cognitive Status WFL Arousal/Alertness Appropriate responses to stimuli Attention Span Appears intact Memory Appears intact Orientation Level Oriented to person;Oriented to place;Oriented to time;Oriented to situation Following Commands Follows all commands [...] demo SOB with any activity, which she report s is baseline. Pt's SpO2 >90% throughout session. [...] care to further increase pt's safety and indep endence with ADLs and functional transfers prior to returning home. Cont to prov jade education rgarding energy conservation techniques. Care Coordination Care Coordination RN ok'd OT eval. Reports pt was up and walking around in hallw ay earlier. OT G-codes OT Visit # 1 Functional Limitation Self Care $Self Care Current Status (G8987) CJ $Self Care Goal Status (G8988) CI G-Code Determined by Clinical judgment;FIM (Functional [place] Measure) * Plan of Care - Ara [...] Assessment - Sherrie Richter RN - 03/27/2018 10:48 AM CDT Care Progression Initial Assessment Note Additional information: Patient lives in house with spouse. Per patient her lasha athing issue has progressively gotten worse and had tried to see a game designer with [facility] but was unable to obtain an appt till May. Will follow for dc need s. Patient notified if any discharge needs occur they can request a discharge p aide consult. Referral to see patient was placed by care Progression , Referral Reason: Initial Assessment, Discharge planning Initial assessment completed and Information obtained from: : Patient Introduced self and purpose of meeting with the patient and is agreeable to inte rview at this time. Patient Program Management Manager Name: Hunter Kelley (spouse), Patient Program Management Manager Ph one: [phone] Patient's Living Arrangement: House Patients support system has been Support System: Spouse/significant other, Ch ildren Family Concerns: N/A Pt has Payor: MEDICARE / Plan: MEDICARE PART A B / Product Type: Medicare / Respiratory items:: CPap Patient states their Income Source: Employed. , Government Assistance: Medica re Resources Available: Rx benefits Verified that patients primary care physician is Adolfo Cardenas MD and receive s their medications from [facility] #[id number] [address] [address] * Plan of Care - Mary Anne Chavarria RN - 03/26/2018 10:18 PM CDT Problem: Knowledge Deficit Goal: Patient/family/caregiver demonstrates understanding of disease process, tr eatment plan, medications, and discharge instructions Outcome: Progressing [...] diastolic dysfunction but no evidence of decompensated h eart failure suspect deconditioning, GRACE, restrictive dz from [...] Note - Alejo Mancini DO - 03/26/2018 5:35 PM CDT Associated Problem(s): Essential hypertension Continue on home meds and monitor * Assessment & Plan Note - Alejo Mancini DO - 03/26/2018 5:34 PM CDT Associated Problem(s): Pain, neuropathic Follows with pain management Continue Gabapentin, Mirapex for RLS * Assessment & Plan Note - Alejo Mancini DO - 03/26/2018 5:33 PM CDT Associated Problem(s): Hepatic steatosis Identified on CT at [facility] 10/26/17, LFTs normal on admission - Recommend weight loss Follow up with [facility] * Assessment & Plan Note - Alejo Mancini DO - 03/26/2018 5:32 PM CDT Associated Problem(s): S/P partial thyroidectomy Stable, monthly thyroid studies per pt report, no home meds F/u endo outpatient documented in this encounter Plan of Treatment Order Schedule Name Type Priority Associated Diagnoses Once - Routine for 1 Occurrences starting 03/27/2018 until 03/27/2018 Culture, Sputum with Gram Microbiology Routine Stain Once - Routine for 1 Occurrences starting 03/29/2018 until 03/29/2018 Culture, Body Fluid with Microbiology Routine Gram Stain documented as of this encounter Procedures Comments Procedure Name Priority Date/Time Associated Diagnosis GLUCOSE POC Routine 03/30/2018 11:23 AM CDT GLUCOSE POC Routine 03/30/2018 7:11 AM CDT CBC AND DIFF (MANUAL DIFF Routine 03/30/2018 IF NECESSARY) 4:47 AM CDT MAGNESIUM Routine 03/30/2018 3:30 AM CDT COMPREHENSIVE METABOLIC Routine 03/30/2018 PANEL 3:30 AM CDT GLUCOSE POC Routine 03/30/2018 12:27 AM CDT GLUCOSE POC Routine 03/29/2018 8:28 PM CDT GLUCOSE POC Routine 03/29/2018 4:34 PM CDT GLUCOSE POC Routine 03/29/2018 11:41 AM CDT MAGNESIUM Routine 03/29/2018 8:15 AM CDT CBC AND DIFF (MANUAL DIFF Routine 03/29/2018 IF NECESSARY) 8:15 AM CDT BASIC METABOLIC PANEL Routine 03/29/2018 8:15 AM CDT HOME O2 EVAL Routine 03/29/2018 7:54 AM CDT GLUCOSE POC Routine 03/29/2018 7:24 AM CDT GLUCOSE POC Routine 03/28/2018 9:06 PM CDT ARTERIAL BLOOD GAS STAT 03/28/2018 5:11 PM CDT GLUCOSE POC Routine 03/28/2018 5:09 PM CDT GLUCOSE POC Routine 03/28/2018 11:53 AM CDT GLUCOSE POC Routine 03/28/2018 7:33 AM CDT PROCALCITONIN Add-On 03/28/2018 5:05 AM CDT MAGNESIUM Routine 03/28/2018 5:05 AM CDT COMPLETE BLOOD COUNT Routine 03/28/2018 5:05 AM CDT BASIC METABOLIC PANEL Routine 03/28/2018 5:05 AM CDT GLUCOSE POC Routine 03/28/2018 12:11 AM CDT GLUCOSE POC Routine 03/27/2018 9:01 PM CDT GLUCOSE POC Routine 03/27/2018 5:05 PM CDT RESPIRATORY CRITERIA Routine 03/27/2018 2:53 PM CDT GASTROINTESTINAL PATHOGEN Routine 03/27/2018 PANEL BY PCR 1:20 PM CDT MISCELLANEOUS Routine 03/27/2018 MICROBIOLOGY 1:20 PM CDT GLUCOSE POC Routine 03/27/2018 11:14 AM CDT ECHO COMPLETE W DOPPLER Routine 03/27/2018 AND COLOR FLOW 8:47 AM CDT GLUCOSE POC Routine 03/27/2018 7:31 AM CDT GLUCOSE POC Routine 03/27/2018 3:09 AM CDT THYROID STIMULATING Routine 03/27/2018 HORMONE 1:50 AM CDT MAGNESIUM Routine 03/27/2018 1:50 AM CDT LIPID PANEL Routine 03/27/2018 1:50 AM CDT CBC AND DIFF (MANUAL DIFF Routine 03/27/2018 IF NECESSARY) 1:50 AM CDT BASIC METABOLIC PANEL Routine 03/27/2018 1:50 AM CDT GLUCOSE POC Routine 03/27/2018 12:08 AM CDT GLUCOSE POC Routine 03/26/2018 8:50 PM CDT RESPIRATORY PANEL BY PCR Routine 03/26/2018 8:50 PM CDT GLUCOSE POC Routine 03/26/2018 5:47 PM CDT CPAP Routine 03/26/2018 5:46 PM CDT THYROID CASCADE STAT 03/26/2018 4:[address] ANGIO CHEST STAT 03/26/2018 3:38 PM CDT HEMOGLOBIN A1C STAT 03/26/2018 1:57 PM CDT CBC AND DIFF (MANUAL DIFF STAT 03/26/2018 IF NECESSARY) 1:57 PM CDT XR CHEST SINGLE VIEW STAT 03/26/2018 FRONTAL 1:24 PM CDT TROPONIN STAT 03/26/2018 1:15 PM CDT PROCALCITONIN Add-On 03/26/2018 1:15 PM CDT NTPROBNP STAT 03/26/2018 1:15 PM CDT COMPREHENSIVE METABOLIC STAT 03/26/2018 PANEL 1:15 PM CDT ECG STAT 03/26/2018 12:55 PM CDT documented in this encounter Results * GLUCOSE POC (03/30/2018 11:23 AM CDT) Only the most recent of 20 results within the time period is included. Pathologist [facility] Glucose POC 198 (H) 70 - 100 mg/dL [facility] Specimen Performing Organization Address City/State/Zipcode Phone Number [facility] [address] [place] [address] * CBC and Diff (manual diff if necessary) (03/30/2018 4:47 AM CDT) Only the most recent of 4 results within the time period is included. Pathologist [facility] WBC 8.28 4.00 - 11.00 TH/uL [facility] RBC 5.03 (H) 4.00 - 5.00 MIL/uL [facility] Hemoglobin 12.2 12.0 - 15.0 g/dL [facility] Hematocrit 39 36 - 45 % [facility] MCV 77 (L) 80 - 99 fL [facility] MCH 24 (L) 27 - 34 pg [facility] MCHC 32 32 - 36 % [facility] RDW 16.3 (H) 9.0 - 14.5 % [facility] Platelet Count 291 140 - 400 TH/uL [facility] MPV 10.2 9.4 - 12.3 fL [facility] Nucleated RBCs 0 0 - 0 /100 [facility] % Neutrophils 64 45 - 78 % [facility] %Lymphocytes 26 15 - 47 % [facility] %Monocytes 6 0 - 12 % [facility] %Eosinophils 1 0 - 7 % [facility] %Basophils 1 0 - 2 % [facility] % Imm Grans 1 0 - 1 % [facility] # Granulocytes 5.42 1.70 - 6.80 TH/uL [facility] # Lymphocytes 2.18 1.00 - 3.30 TH/uL [facility] # Monocytes 0.53 0.20 - 0.90 TH/uL [facility] # Eosinophils 0.11 0.00 - 0.40 TH/uL [facility] # Basophils 0.04 0.00 - 0.10 TH/uL [facility] Specimen Blood Narrative Performed At This order is a replacement of the rejected order with accession number [facility] MARIOMikey [facility] [id number]. LAB Performing Organization Address [facility] Phone Number [facility] [phone] [place] [address] * Magnesium (03/30/2018 3:30 AM CDT) Only the most recent of 4 results within the time period is included. Pathologist [facility] Magnesium 1.9 1.4 - 2.7 mg/dL [facility] Specimen Blood Performing Organization Address [facility] Phone Number [facility] [phone] [place] [address] * Comprehensive Metabolic Panel (03/30/2018 3:30 AM CDT) Only the most recent of 2 results within the time period is included. [facility] Sodium 136 133 - 147 MEQ/L [facility] Potassium 4.2 3.5 - 5.3 MEQ/L [facility] Chloride 99 96 - 112 MEQ/L [facility] Carbon Dioxide 26 20 - 32 MEQ/L [facility] Anion Gap 11 5 - 17 [facility] Calcium 10.1 8.4 - 10.5 mg/dL [facility] Glucose 195 (H) 70 - 100 mg/dL [facility] Protein Total 7.0 6.0 - 8.2 g/dL [facility] Serum [facility] Albumin 4.1 3.5 - 5.0 g/dL [facility] Alkaline 97 42 - 140 IU/L [facility] Phosphatase [facility] Alanine 24Comment: ALT reference range 0 - 34 IU/L [facility] Aminotransferas changed on 03-03-[address] [facility] e Aspartate 31 15 - 46 IU/L [facility] Aminotransferas [facility] e Bilirubin Total 1.2 0.2 - 1.3 mg/dL [facility] Blood Urea 18 7 - 26 mg/dL [facility] Nitrogen [facility] Creatinine 0.7 0.4 - 1.1 mg/dL [facility] eGFR Female AA 101 60 - 200 [facility] Comment: [facility] Chronic Kidney Disease less than 60 mL/min/1.73 sq.m Kidney failure less than 15 mL/min/1.73 sq.m eGFR Female 84 60 - 200 [facility] Non-AA Comment: [facility] Chronic Kidney Disease less than 60 mL/min/1.73 sq.m Kidney failure less than 15 mL/min/1.73 sq.m Specimen Blood Performing Organization Address City/State/Zipcode Phone Number [facility] [address] [place] [address] * Basic Metabolic Panel (03/29/2018 8:15 AM CDT) Only the most recent of 3 results within the time period is included. Sodium 136 133 - 147 MEQ/L [facility] Potassium 4.3 3.5 - 5.3 MEQ/L [facility] Chloride 100 96 - 112 MEQ/L [facility] Carbon Dioxide 24 20 - 32 MEQ/L [facility] Anion Gap 12 5 - 17 [facility] Calcium 10.1 8.4 - 10.5 mg/dL [facility] Glucose 207 (H) 70 - 100 mg/dL [facility] Blood Urea 17 7 - 26 mg/dL [facility] Nitrogen [facility] Creatinine 0.7 0.4 - 1.1 mg/dL [facility] eGFR Female AA 101 60 - 200 [facility] Comment: [facility] Chronic Kidney Disease less than 60 mL/min/1.73 sq.m Kidney failure less than 15 mL/min/1.73 sq.m eGFR Female 84 60 - 200 [facility] Non-AA Comment: [facility] Chronic Kidney Disease less than 60 mL/min/1.73 sq.m Kidney failure less than 15 mL/min/1.73 sq.m Specimen Blood Performing Organization Address City/[facility]/Zipcode Phone Number [facility] [address] [place] [address] * Arterial Blood Gas (03/28/2018 5:11 PM CDT) Sample Site RADIAL L [facility] Fraction of 0.21 [facility] Total Rate [address] [facility] PO2 Arterial 74 (L) 80 - 100 mm Hg [facility] pCO2 Arterial 34 (L) 35 - 45 mm Hg [address] pH Arterial 7.47 (H) 7.36 - 7.[address] [facility] Bicarbonate 24.7 19.0 - 29.0 MEQ/L [facility] Base Excess 1.5 -3.0 - 3.0 MEQ/L [facility] Specimen Performing Organization Address [facility] Phone Number [facility] [address] [place] [address] * Procalcitonin (03/28/2018 5:05 AM CDT) Only the most recent of 2 results within the time period is included. Pathologist [facility] Procalcitonin 0.31 (H) 0.00 - 0.10 ng/mL [facility] Comment: [facility] PCT Value LABORATORIES Interpretation 0.10 [...] procalcitonin levels. Specimen Blood Performing Organization Address City/[facility]/Zipcode Phone Number [facility] [address] [address] LABORATORIES * Complete Blood Count (03/28/2018 5:05 AM CDT) [facility] WBC 6.57 4.00 - 11.00 TH/uL [facility] RBC 4.56 4.00 - 5.00 MIL/uL [facility] Hemoglobin 11.3 (L) 12.0 - 15.0 g/dL [facility] Hematocrit 36 36 - 45 % [facility] MCV 78 (L) 80 - 99 fL [facility] MCH 25 (L) 27 - 34 pg [facility] MCHC 32 32 - 36 % [facility] RDW 16.1 (H) 9.0 - 14.5 % [facility] Platelet Count 226 140 - 400 TH/uL [facility] MPV 10.3 9.4 - 12.3 fL [facility] Nucleated RBCs 0 0 - 0 /100 [facility] Specimen Blood Performing Organization Address City/[facility]/Zipcode Phone Number [facility] [phone] [place] [address] * Miscellaneous Microbiology (03/27/2018 1:20 PM CDT) [facility] Isolate 1 Salmonella bhakti (A) [facility] Isolate 1 Test performed at [facility] [address] [place] [address] [address] [place] [address] (A) Specimen Stool Antibiotic Method Susceptibility Organism AMPICILLIN >16: Intermediate Salmonella bhakti BACTRIM/SEPTRA >2/38: Resistant Salmonella bhakti CIPROFLOXACIN 0.25: Sensitive Salmonella bhakti Performing Organization Address City/[facility]/Zipcode Phone Number [facility] [address] [place] [address] LABORATORIES * Gastrointestinal Pathogen Panel by PCR (03/27/2018 1:20 PM CDT) [facility] Campylobacter Not Detected Not Detected [facility] Clostridium Not DetectedComment: Detection Not Detected [facility] difficile toxin of C. difficile may reflect REGIONAL A/B asymptomatic carriage or C. LABORATORIES difficile-associated diarrhea. Plesiomonas Not Detected Not Detected [facility] shigelloides [facility] Salmonella Detected (A) Not Detected [facility] Vibrio Not Detected Not Detected [facility] Vibrio cholerae Not Detected Not Detected [facility] Yersinia Not Detected Not Detected [facility] enterocolitica [facility] Enteroaggregati Not Detected Not Detected [facility] ve E. coli [facility] (EAEC) [facility] Enteropathogeni Not Detected Not Detected [facility] c E. coli [facility] (EPEC) [facility] Enterotoxigenic Not Detected Not Detected [facility] E. coli (ETEC) [facility] Shiga-like Not Detected Not Detected [facility] toxin-producing [facility] E. coli (STEC) [facility] E. coli O157 Not Detected Not Detected [facility] Shigella/Entero Not Detected Not Detected [facility] invasive E. [facility] (EIEC) [facility] Cryptosporidium Not Detected Not Detected [facility] Cyclospora Not Detected Not Detected [facility] cayetanensis [facility] Entamoeba Not Detected Not Detected [facility] histolytica [facility] Giardia lamblia Not Detected Not Detected [facility] Adenovirus F Not Detected Not Detected [facility] 40/41 [facility] Astrovirus Not Detected Not Detected [facility] Norovirus Not Detected Not Detected [facility] GI/GII [facility] Rotavirus A Not Detected Not Detected [facility] Sapovirus Not Detected Not Detected [facility] Specimen Stool Performing Organization Address City/State/Zipcode Phone Number [place] [phone] [place], [place] [id number] LABORATORIES * Echo Complete with Doppler and Color Flow (03/27/2018 8:47 AM CDT) Ejection 75 % PROSOLV Fraction Specimen Impressions Performed At 1. Hyperdynamic left ventricular systolic function, with an estimated PROSOLV ejection fraction of 75%. 2. Normal right ventricular size and systolic function. 3. No significant valvular abnormalities. 4. Estimated central venous and mean left atrial pressures are normal. Dr. Mynor Hayes MD (Electronically Signed) Final Date:27 March 2018 09:18 Narrative Performed At [facility] ECHOCARDIOGRAM REPORT [facility] Name:MICKI KELLEY Date:03/27/2018 08:19 Chart #:[id number] : 1950 Location:[facility] IPSono: [email or web address] Age: 67 Gender:FReferring: ANDREA OLGUIN Room #: 212 Fellow: Indication:Dyspnea, unspecified Procedure: [id number] Complete Echo 2D/Colorflow/Doppler BP: 144 / 76HR:70Ht: [...] mmHg MITRAL VALVE DOPPLER Mitral E Point Psjwkauo74.8 cm/sMitral E to A Ratio0.81 MitralA Point [...] MICKI KELLEY Date: 03/27/2018 08:19 Chart #: [id number] : 1950 Location: [facility] IP Sono: [email or web address] Age: 67 Gender: F Referring: ANDREA OLGUIN Room #: 212 Fellow: Indication:Dyspnea, unspecified Procedure: [id number] Complete Echo 2D/Colorflow/Doppler BP: 144 / 76 [...] 27 March 2018 09:18 Performing Organization Address City/State/Zipcode Phone Number PROSOLV * Thyroid Stimulating Hormone (03/27/2018 1:50 AM CDT) Pathologist [facility] Thyroid 1.79 0.47 - 4.68 uIU/mL [facility] Stimulating [facility] Hormone Specimen Blood Performing Organization Address City/State/Zipcode Phone Number [facility] [address] [place] [address] * Lipid Panel (03/27/2018 1:50 AM CDT) Pathologist [facility] Cholesterol 174 100 - 200 mg/dL [facility] HDL Cholesterol 36 (L) 40 - 110 mg/dL [facility] Non-HDL 138 (H) 0 - 130 mg/dL [facility] Cholesterol [facility] Triglycerides 322 (H) 0 - 150 mg/dL [facility] LDL Cholesterol 74 0 - 99 mg/dL [facility] Cholesterol/HDL 4.8 (H) 0.0 - 4.5 [facility] Ratio [facility] Specimen Blood Performing Organization Address City/[facility] Phone Number [facility] [address] [place] [address] LABORATORIES * Respiratory Panel by PCR (03/26/2018 8:50 PM CDT) Pathologist [facility] Adenovirus Not Detected Not Detected [facility] Coronavirus Not Detected Not Detected [facility] Human Not Detected Not Detected [facility] Metapneumovirus REGIONAL (hMPV) LABORATORIES Human Not Detected Not Detected [facility] Rhinovirus [facility] Enterovirus LABORATORIES Influenza A Not Detected Not Detected [facility] Influenza B Not Detected Not Detected [facility] Parainfluenza Not Detected Not Detected [facility] Virus [facility] Respiratory Not Detected Not Detected [facility] Syncytial Virus [facility] Bordetella Not Detected Not Detected [facility] pertussis [facility] Chlamydophila Not Detected Not Detected [facility] pneumoniae [facility] Mycoplasma Not Detected Not Detected [facility] pneumoniae [facility] Source NASOPHAR [facility] Specimen Nasopharynx, Performing Organization Address City/[facility]/Zipcode Phone Number [facility] [address] [address] LABORATORIES * Thyroid [place] (03/26/2018 4:22 PM CDT) Thyroid 2.67 0.47 - 4.68 uIU/mL [facility] Hormone Specimen Blood Performing Organization Address City/State/Zipcode Phone Number [facility] [address] [place] [address] * CT Angio Chest (03/26/2018 3:38 PM CDT) Specimen Impressions Performed At 1.Negative for acute pulmonary embolism. [facility] 2.Patchy groundglass attenuation throughout both lungs, which may represent mild atelectasis, edema, or pneumonitis. 3.Hepatic steatosis and probable hepatomegaly. READING SITE: [facility] Narrative Performed At Patient: ISI KELLEY Sex#:F # [id number] Malia#:[id number] Location:[place] [address]Accession#: [id number] Procedure Requested:[id number] CT ANGIO CHEST Reason for Exam:shortness of [...] MICKI KELLEY Sex#: F # 1950 Malia#: [id number] Location: [place] [address] Procedure Requested: [id number] CT ANGIO CHEST Reason for Exam: shortness [...] steatosis and probable hepatomegaly. [facility]ITE: [facility] Organization Address City/State/Zipcode Phone Number [place] * Hemoglobin A1C (03/26/2018 1:57 PM CDT) Hemoglobin A1C 8.1 (H) 4.0 - 5.6 % [facility] Comment: REGIONAL Non-diabetic LABORATORIES 4.0 - 5.6 % Prediabetes 5.7 - 6.4 % Diabetes >=6.5 % Specimen Blood Performing Organization Address City/State/Zipcode Phone Number [address] [address] LABORATORIES * XR Chest single view frontal (03/26/2018 1:24 PM CDT) Specimen Impressions Performed At No acute disease. [facility] Bowman Performed At Patient: ISI KELLEY Sex#:F # 1950 Malia#:[id number] Location:[facility] ED [facility]-08Accession#: [id number] Procedure Requested:[id number] XR CHEST SINGLE VIEW FRONTAL Reason for Exam:cough Exam Ordered:03/26/20181257 Exam Date/Time:03/26/20181324 Begin exam date/time:03/26/20181305 Reading Site: [facility]. XR CHEST SINGLE VIEW FRONTAL, 03/26/2018 1:24 [...] MICKI KELLEY Sex#: F # 1950 Malia#: [id number] Location: [facility]-08 Procedure Requested: [id number] XR CHEST SINGLE VIEW FRONTAL Reason for Exam: cough Exam Ordered: 03/26/2018 1257 Exam Date/Time: 03/26/2018 1324 Begin exam date/time: 03/26/2018 1305 Reading Site: [facility]. XR CHEST SINGLE VIEW FRONTAL, 03/26/2018 1:24 PM Reason for Examination: cough Findings: The left central line terminates near the superior cavoatrial junction. The heart is normal in size. Mediastinal contours are within normal limits. Pulmonary vessels are normal. The lungs are clear. No pleural abnormalities are identified. IMPRESSION No acute disease. Performing Organization Address City/State/Zipcode Phone Number [facility] * Troponin (03/26/2018 1:15 PM CDT) Troponin <0.01 0.00 - 0.03 ng/mL [facility] Comment: [facility] Troponin ValueInterpretation 0.00 - 0.03 Healthy 0.04 - 0.12 Increased Cardiac Risk >0.12M yocardial Infarction Troponin may not become elevated until 6 to 8 hours after onset of symptoms. Specimen Blood Performing Organization Address [facility] Phone Number [facility] [phone] [place] [phone] * NTproBNP (03/26/2018 1:15 PM CDT) NTproBNP 28 pg/mL [facility] Comment: [facility] NT-proBNPReference Ranges: <50 yr<450 pg/mL 50-75 yr<900 pg/mL >75 yr <1800 pg/mL A cutoff value of 1200 pg/mL is recommended in patients 50 to 70 years of age with a GFR between 30 and 60.NT-proBNP is unreliable in patients with GFR <30. Specimen Blood Performing Organization Address [facility] Phone Number [facility] [address] [place] [address] * Electrocardiogram (ECG) (03/26/2018 12:55 PM CDT) Pathologist [facility] QRSd 68 [facility] QT 352 [facility] QTC 434 [facility] ECGHR 91 [facility] ECGPR 176 [facility] Specimen Narrative Performed At [facility] ED Test Date:2018-03-26 Pat Name: MICKI KELLEYDepartment: ERJ Room: [facility] Gender: Female Executive Candidate Developer: [id number] :1950 Requested By: VALDO PARK Order Number: [id number] : Measurements IntervalsAxis Rate: 91 P:29 WA: 176QRS:6 QRSD: 68 T:88 QT: 352 QTc:434 Interpretive Statements SINUS RHYTHM BORDERLINE T ABNORMALITIES, ANT-LAT LEADS Procedure Note Interface, External Ris In - 03/26/2018 12:56 PM CDT [facility] ED Test Date: 2018-03-26 Pat Name: MICKI KELLEY Department: ER Room: [facility] Gender: Female Executive Candidate Developer: [id number] : 1950 Requested By: VALDO PARK Order Number: [id number] Waldemar MD: Measurements Intervals [place] Rate: 91 P: 29 WA: 176 QRS: 6 QRSD: 68 T: 88 QT: 352 QTc: 434 Interpretive Statements SINUS RHYTHM BORDERLINE T ABNORMALITIES, ANT-LAT LEADS Performing Organization Address City/State/Zipcode Phone Number TRACEMASTER documented in this encounter Visit Diagnoses Diagnosis Dyspnea, [...] hyperlipidemia Overactive bladder Hypertonicity of bladder Diarrhea documented in this encounter Administered Medications Action Date Dose Rate Site Medication Order MAR Action 03/28/2018 7:20 AM CDT 2.5 mg albuterol (ACCUNEB) 2.5 mg/3 mL (0.083 Given %) nebulizer solution 2.5 mg 2.5 mg, Nebulization, 4 times daily, First dose on Fri03/27/18 at 1700 2.5 mg Given 03/27/2018 8:18 PM CDT 03/29/2018 5:08 AM CDT 2.5 mg albuterol (ACCUNEB) 2.5 mg/3 mL (0.083 Given %) nebulizer solution 2.5 mg 2.5 mg, Nebulization, Every 4 hours PRN, wheezing, shortness of air, Starting Fri03/27/18 at 1457 2.5 mg Given 03/28/2018 2:48 PM CDT 03/29/2018 10:19 AM CDT 2.5 mg albuterol (ACCUNEB) 2.5 mg/3 mL (0.083 Given %) nebulizer solution 2.5 mg 2.5 mg, Nebulization, Once, Fri03/29/18 at 1030, For 1 dose 03/30/2018 11:15 AM CDT 2.5 mg albuterol (ACCUNEB) 2.5 mg/3 mL (0.083 Given %) nebulizer solution 2.5 mg 2.5 mg, Nebulization, Every 4 hours PRN, wheezing, shortness of air, Starting Fri03/29/18 at 1500 2.5 mg Given 03/29/2018 8:30 PM CDT 03/29/2018 10:15 AM CDT albuterol (ACCUNEB) 2.5 mg/3 mL (0.083 Given by %) nebulizer solution Other Starting Fri03/29/18 at 1013, For 1 dose, Helen Tello: cabinet override, 03/29/2018 8:23 PM CDT 1 mg ALPRAZolam (XANAX) tablet 1 mg Given 1 mg, Oral, Nightly PRN, anxiety, Starting Rin 03/26/18 at 1723 1 mg Given 03/28/2018 8:58 PM CDT 1 mg Given 03/28/2018 1:17 AM CDT alteplase (CATHFLO ACTIVASE) injection 2 mg 2 mg, Intra-Catheter, As needed, declotting central catheter or sluggish/occluded CVC line, Starting Fri03/30/18 at 1414, Use 2 mg/2 mL to declot catheter as needed, Declot catheter per Central Venous Access Device, Declotting procedure in [place] [facility] with 2.2 mL sterile water for injection, 03/30/2018 8:17 AM CDT 325 mg aspirin tablet 325 mg Given 325 mg, Oral, Daily, First dose on Fri03/26/18 at 1745 325 mg Given 03/29/2018 8:59 AM CDT 325 mg Given 03/28/2018 8:35 AM CDT 03/27/2018 8:09 AM CDT 10 mg citalopram (CeleXA) tablet 10 mg Given 10 mg, Oral, Daily, First dose on Fri03/26/18 at 1800 10 mg Given 03/26/2018 6:42 PM CDT 03/30/2018 8:17 AM CDT 10 mg citalopram (CeleXA) tablet 10 mg Given 10 mg, Oral, Daily, First dose on Fri03/27/18 at 1545 10 mg Given 03/29/2018 9:08 AM CDT 10 mg Given 03/28/2018 8:35 AM CDT dextrose (D50W) 50 % injection 25-50 mL 25-50 mL, Intravenous, As needed, low blood sugar, Starting Rin 03/26/18 at 1729, Give if patient NPO and IV access already available. If no IV access give Glucagon SQ or IM in arm and turn patient on side. Recheck BG in 15 minutes. Repeat until glucose greater than 80., dextrose 10% (D10W) bolus 125-250 mL 125-250 mL, Intravenous, at 500-1,000 mL/hr, As needed, low blood sugar, Starting Rin 03/26/18 at 1729, Give if patient NPO and IV access already available. If no IV access give Glucagon SQ or IM in arm and turn patient on side. Recheck BG in 15 minutes. Repeat until glucose greater than 80., dextrose 50% (D50W) syringe 25-50 mL 25-50 mL, Intravenous, As needed, low blood sugar, Starting Rin 03/26/18 at 1729, Give if patient NPO and IV access already available. If no IV access give Glucagon SQ or IM in arm and turn patient on side. Recheck BG in 15 minutes. Repeat until glucose greater than 80., 03/30/2018 8:26 AM CDT 100 mg docusate sodium (COLACE) capsule 100 mg Given 100 mg, Oral, 2 times daily, First dose on Rin 03/26/18 at 2100, DO NOT CRUSH OR CHEW., 03/26/2018 6:42 PM CDT 20 mg furosemide (LASIX) injection 20 mg Given 20 mg, Intravenous, Once, Irn 03/26/18 at 1745, For 1 dose, Usual Dose Furosemide - 20 - 40 mg i.v. (Max 600 mg/day), 03/30/2018 8:17 AM CDT 300 mg gabapentin (NEURONTIN) capsule 300 mg Given 300 mg, Oral, 3 times daily, First dose on Rin 03/26/18 at 2100 300 mg Given 03/29/2018 8:23 PM CDT 300 mg Given 03/29/2018 5:09 PM CDT 03/30/2018 7:41 AM CDT 600 mg gemfibrozil (LOPID) tablet 600 mg Given 600 mg, Oral, 2 times daily before meals, First dose on Rin 03/26/18 at 1800 600 mg Given 03/29/2018 5:09 PM CDT 600 mg Given 03/29/2018 8:59 AM CDT glucagon (GLUCAGEN) injection 1 mg 1 mg, Intramuscular, As needed, low blood sugar, low blood sugar, Starting Rin 03/26/18 at 1729, If no IV access. May give IM or SQ in arm and turn patient on side., glucagon (GLUCAGEN) injection 1 mg 1 mg, Subcutaneous, As needed, low blood sugar, low blood sugar, Starting Rin 03/26/18 at 1729, If no IV access. May give IM or SQ in arm and turn patient on side., 03/30/2018 2:24 PM CDT 50 Units heparin (porcine) 10 unit/mL injection Given 50 Units 50 Units, Intra-Catheter, As needed, line care, Starting Fri03/30/18 at 1414, Upon discharge, flush 10 mL NS, followed by 5 mL of heparin 10 units/mL, then de-access., 03/30/2018 7:41 AM CDT 5,000 Units Abdominal Tissue heparin (porcine) 5,000 unit/mL Given injection 5,000 Units 5,000 Units, Subcutaneous, Every 8 hours, First dose on Fri03/26/18 at 1745 5,000 Units Abdominal Tissue Given 03/29/2018 8:25 PM CDT 5,000 Units Abdominal Tissue Given 03/29/2018 1:50 PM CDT 03/30/2018 8:17 AM CDT 25 mg hydroCHLOROthiazide (HYDRODIURIL) tablet Given 25 mg 25 mg, Oral, Daily, First dose on Fri03/27/18 at 1600 25 mg Given 03/29/2018 9:00 AM CDT 25 mg Given 03/28/2018 8:37 AM CDT 03/30/2018 12:33 PM CDT 2 Units Abdominal Tissue insulin lispro (HumaLOG) injection 2-7 Given Units 2-7 Units, Subcutaneous, 4 times daily before meals and nightly, First dose on Fri03/26/18 at 1745, LEVEL 3 Give in addition to scheduled mealtime insulin per table Glucose Level (mg/dL) Dose <120 No Insulin 121-150 No Insulin 151-200 2 units 201-250 3 units 251-300 4 units 301-350 5 units 351-400 6 units >400 7 units Bedtime Correction - If glucose level [...] fingerstick blood glucose check - dose per table, 2 Units Abdominal Tissue Given 03/30/2018 8:15 AM CDT 2 Units Abdominal Tissue Given 03/29/2018 9:00 PM CDT 03/26/2018 3:38 PM CDT 99 mL iohexol (OMNIPAQUE) 350 mg iodine/mL Given injection 1-500 mL 1-500 mL, Intravenous, Once in imaging, contrast, Starting Rin 03/26/18 at 1523, For 1 dose 03/28/2018 8:44 PM CDT 3 mL ipratropium-albuterol (DUO-NEB) 0.5-3 Given mg/3 mL nebulizer solution 3 mL 3 mL, Inhalation, 4 times daily PRN, wheezing, shortness of air, Starting Rin 03/26/18 at 1745 3 mL Given 03/27/2018 2:44 PM CDT 03/27/2018 5:35 PM CDT 2 g 25 mL/hr magnesium sulfate IVPB 2 gram (premix) New Bag 2 g, Intravenous, at 25 mL/hr, Once, Fri03/27/18 at 1615, For 1 dose [...] hours or > 360 mL every 12 hours., 03/30/2018 8:17 AM CDT 50 mg mirabegron (MYRBETRIQ) ER tablet 50 mg Given 50 mg, Oral, Daily, First dose on Rin 03/26/18 at 1800, DO NOT CRUSH OR CHEW., 50 mg Given 03/29/2018 9:00 AM CDT 50 mg Given 03/28/2018 8:34 AM CDT 03/30/2018 8:17 AM CDT 5 mg oxybutynin (DITROPAN) tablet 5 mg Given 5 mg, Oral, 2 times daily, First dose on Rin 03/26/18 at 2100 5 mg Given 03/29/2018 8:23 PM CDT 5 mg Given 03/29/2018 8:59 AM CDT 03/30/2018 7:41 AM CDT 40 mg pantoprazole (PROTONIX) EC tablet 40 mg Given 40 mg, Oral, Daily, First dose on [facility] 03/26/18 at 1800, DO NOT CRUSH OR CHEW., 40 mg Given 03/29/2018 5:32 AM CDT 40 mg Given 03/28/2018 6:06 AM CDT polyvinyl alcohol (LIQUIFILM TEARS) 1.4 % ophthalmic solution 1 drop 1 drop, Both Eyes, As needed, dry eyes, Indications: Dry Eye, Starting [facility] 03/30/18 at 0152 potassium chloride (KAYCIEL) 20 mEq/15 mL solution 20-60 mEq 20-60 mEq, Oral, As needed, for potassium replacement in telemetry patients, Starting [facility] 03/26/18 at 1721, Give if unable [...] hours or > 360 mL every 12 hours., potassium chloride (KLOR-CON) CR tablet 20-60 mEq 20-60 mEq, Oral, As needed, for potassium replacement in telemetry patients, Starting [facility] 03/26/18 at 1721, Administer 20 mEq [...] every 12 hours. DO NOT CRUSH OR CHEW., potassium chloride 20 mEq in 100 mL [...] rate of 20 mEq/hr through a central line., 03/27/2018 2:32 PM CDT 0.125 mg pramipexole (MIRAPEX) tablet 0.125 mg Given 0.125 mg, Oral, 3 times daily, First dose on Rin 03/26/18 at 2100 0.125 mg Given 03/27/2018 8:09 AM CDT 0.125 mg Given 03/26/2018 8:37 PM CDT 03/30/2018 8:18 AM CDT 1 mg pramipexole (MIRAPEX) tablet 1 mg Given 1 mg, Oral, 3 times daily, Indications: Restless Legs Syndrome, First dose on Fri03/27/18 at 2100 1 mg Given 03/29/2018 8:23 PM CDT 1 mg Given 03/29/2018 5:09 PM CDT 03/29/2018 7:18 PM CDT 80 mg pravastatin (PRAVACHOL) tablet 80 mg Given 80 mg, Oral, Nightly, First dose on Rin 03/26/18 at 2100 80 mg Given 03/28/2018 8:58 PM CDT 80 mg Given 03/27/2018 8:14 PM CDT 03/29/2018 8:23 PM CDT 5 mg zolpidem (AMBIEN) tablet 5 mg Given 5 mg, Oral, Nightly PRN, sleep, Starting Rin 03/26/18 at 1733, Do not administer in the presence of confusion or delirium., 5 mg Given 03/28/2018 9:00 PM CDT 5 mg Given 03/28/2018 1:17 AM CDT documented in this encounter
--- OUTSIDE RECORDS SUMMARY | 2019-03-30 12:02 | XMS REPORT | Encounter Summary ---
Author Author [facility] Organization [facility] Address Unknown Phone Unavailable Care Team Providers Care Svp Digital Ad Sales Name Role Phone PCP Unavailable Encounter Details Care Team Description Date Type Department Raymundo Haji MD No Forwarding Address Emergency, PhysicianMD Abdominal pain, unspecified site 11/20/2011 [facility] [id number] [place] [address] Social History Date Tobacco Use Types Packs/Day [...] Associated Diagnosis CT ABDOMEN PELVIS W Routine 11/20/2011 CONTRAST 3:41 PM CDT URINE NITRITE Routine 11/20/2011 3:25 PM CDT URINALYSIS (INCLUDES Routine 11/20/2011 MICROSCOPIC REVIEW, IF 3:25 PM CDT INDICATED) COMPREHENSIVE METABOLIC Routine 11/20/2011 PANEL 2:54 PM CDT CBC AND DIFF (MANUAL DIFF Routine 11/20/2011 IF NECESSARY) 2:54 PM CDT documented in this encounter Results * CT Abdomen Pelvis w contrast (11/20/2011 3:41 PM CDT) Specimen Narrative Performed At [facility] [place] Patient:MICKI LUJAN Phone #:Med Rec#:[id number] Sex:F :1950orp#: [id number] Location: EJCheck-in#: [id number] Procedure Requested: [id number] CT ABD PELVIS WITH CONTRAST Reason For Exam: ABDOMINAL PAIN SPECIFY SITE Exam Ordered:11/20/2011 1524 Exam Date/Time:11/20/2011 1551 Check-in Date/Time:11/20/2011 1524 Attendin EMERGENCY, PHYSICIAN "" Requestin RAYMUNDO HAJI Referrin NO, REFERRING DR Primary Care:HUNTER RUFFIN "" EXAM:CT ABD PELVIS WITH CONTRAST DATE:Nov 20, 2011 03:51:00 PM INDICATION:ABDOMINAL PAIN FINDINGS:Contrast enhanced images obtained with delayed views. Mild fatty infiltration of the liver. Liver, spleen, pancreas, adrenals, and kidneys otherwise normal. Gallbladder is contracted but appears otherwise normal. Appendix is not seen but there is nothing for appendicitis. Sigmoid diverticulosis without evidence of diverticulitis. Slight stranding in the subcutaneous fat anteriorly is probably postoperative. Bowel, retroperitoneum, and pelvic structures otherwise unremarkable. Impression: 1. Fatty liver. 2. Contracted gallbladder. 3. Postop change in the subcutaneous fat anteriorly. 4. Diverticulosis without evidence of diverticulitis. No change in the abdomen and pelvis since 11/11/2011. Signed (Authenticated, Released) Date-Time: 11/20/2011 1623 Line Service Attendant- JOSE GALAN, Staff Radiologist Dictated By- JOSE GALAN, Staff Radiologist Staff Physician- JOSE GALAN, Staff Radiologist Authenticated By- JOSE GALAN, Staff Radiologist Procedure Note Loi, Rad Conversion - 10/23/2013 4:20 AM DIRECTOR OF ADMISSIONS REPORT Patient: MICKI LUJAN Phone #: Med Rec#: [id number] Sex: F : 1950 Malia#: [id number] Location: EJ Check-in#: [id number] Procedure Requested: [id number] CT ABD PELVIS WITH CONTRAST Reason For Exam: ABDOMINAL PAIN SPECIFY SITE Exam Ordered: 11/20/2011 1524 Exam Date/Time: 11/20/2011 1551 Check-in Date/Time: 11/20/2011 1524 Attendin EMERGENCY, PHYSICIAN "" Requestin RAYMUNDO HAJI Referrin NO, REFERRING DR Primary Care: HUNTER RUFFIN "" EXAM: CT ABD PELVIS WITH CONTRAST DATE: Nov 20, 2011 03:51:00 PM INDICATION: ABDOMINAL PAIN FINDINGS: Contrast enhanced images obtained with delayed views. Mild fatty infiltration of the liver. Liver, spleen, pancreas, adrenals, and kidneys otherwise normal. Gallbladder is contracted but appears otherwise normal. Appendix is not seen but there is nothing for appendicitis. Sigmoid diverticulosis without evidence of diverticulitis. Slight stranding in the subcutaneous fat anteriorly is probably postoperative. Bowel, retroperitoneum, and pelvic structures otherwise unremarkable. Impression: 1. Fatty liver. 2. Contracted gallbladder. 3. Postop change in the subcutaneous fat anteriorly. 4. Diverticulosis without evidence of diverticulitis. No change in the abdomen and pelvis since 11/11/2011. Signed (Authenticated, Released) Date-Time: 11/20/2011 1623 Line Service Attendant- JOSE KABA M.D., Staff Radiologist Dictated By- JOSE KABA M.D., Staff Radiologist Staff Physician- JOSE KABA M.D., Staff Radiologist Authenticated ByMaycol KABA M.D., Staff Radiologist Performing Organization Address [facility] Phone Number MCK[facility] * Urine Nitrite (11/20/2011 3:25 PM CDT) Nitrite Urine Negative Negative SUNQUEST Specimen Urine Performing Organization Address [facility] Phone Number [facility] [phone] [place] [address] SUNQUEST * Urinalysis (11/20/2011 3:25 PM CDT) Appearance, Yellow SUNQUEST Urine Specific >=1.030 1.001 - 1.030 SUNQUEST [place], UA PH Urine 5.0 5.0 - 8.0 SUNQUEST Hemoglobin Negative Negative [facility]QUEST Urine Leukocyte Negative Negative [facility] Esterase Bilirubin Urine Negative Negative [facility]QUEST Glucose Urine Negative Negative MG/DL SUNQUEST Ketones Urine Negative Negative MG/DL SUNQUEST Protein Urine Negative Negative MG/DL SUNQUEST Qual Urobilinogen Negative Negative EU/DL SUNQUEST Urine Specimen Urine Performing Organization Address [facility] Phone Number R [phone] [place] [address] SUNQUEST * CBC and Diff (manual diff if necessary) (11/20/2011 2:54 PM CDT) Pathologist [facility] WBC 9.64 4.00 - 11.00 TH/UL SUNQUEST RBC 5.03 (H) 4.00 - 5.00 MIL/UL SUNQUEST Hemoglobin 14.6 12.0 - 15.0 G/DL [facility]QUEST Hematocrit 42 36 - 45 % SUNQUEST MCV 83 80 - 99 FL SUNQUEST MCH 29 27 - 34 PG SUNQUEST MCHC 35 32 - 36 % SUNQUEST RDW 14.2 9.0 - 14.5 % SUNQUEST Platelet Count 247 140 - 400 TH/UL SUNQUEST MPV 10.8 9.4 - 12.3 FL SUNQUEST % Neutrophils 64 45 - 78 % SUNQUEST %Lymphocytes 29 15 - 47 % SUNQUEST %Monocytes 6 0 - 12 % SUNQUEST %Eosinophils 2 0 - 7 % SUNQUEST %Basophils 0 0 - 2 % SUNQUEST # Granulocytes 6.14 1.70 - 6.80 TH/UL SUNQUEST # Lymphocytes 2.76 1.00 - 3.30 TH/UL SUNQUEST # Monocytes 0.53 0.20 - 0.90 TH/UL SUNQUEST # Eosinophils 0.17 0.00 - 0.40 TH/UL SUNQUEST # Basophils 0.04 0.00 - 0.10 TH/UL SUNQUEST Specimen Blood Performing Organization Address [facility] Phone Number R [phone] [place] [address] SUNQUEST * Comprehensive Metabolic Panel (11/20/2011 2:54 PM CDT) Pathologist [facility] Albumin 3.8 3.5 - 5.0 G/DL SUNQUEST Aspartate 22 15 - 46 IU/L SUNQUEST Aminotransferas e Bilirubin Total 1.1 0.2 - 1.3 MG/DL SUNQUEST Protein Total 6.3 6.0 - 8.2 G/DL SUNQUEST Serum Calcium 9.7 8.4 - 10.2 MG/DL SUNQUEST Creatinine 0.7 0.4 - 1.1 MG/DL [facility]QUEST Glucose 167 (H) 70 - 100 MG/DL SUNQUEST Alkaline 98 42 - 128 IU/L SUNQUEST Phosphatase Sodium 137 133 - 147 MEQ/L SUNQUEST Potassium 4.2 3.5 - 5.1 MEQ/L SUNQUEST Chloride 103 96 - 112 MEQ/L SUNQUEST Carbon Dioxide 23 22 - 30 MEQ/L SUNQUEST Blood Urea 16 7 - 26 MG/DL SUNQUEST Nitrogen Anion Gap 10 3 - 15 SUNQUEST Alanine 20 13 - 69 IU/L SUNQUEST Aminotransferas e eGFR Female 86 SUNQUEST Non-AA Comment: Chronic Kidney Disease less than 60 mL/min/1.73 sq.m Kidney failure less than 15 mL/min/1.73 sq.m eGFR Female AA 103 SUNQUEST Comment: Chronic Kidney Disease less than 60 mL/min/1.73 sq.m Kidney failure less than 15 mL/min/1.73 sq.m Specimen Blood Performing Organization Address City/State/Zipcode Phone Number [facility] [address] [place] [address] SUNQUEST documented in this encounter Visit Diagnoses Diagnosis Abdominal pain, unspecified site documented in this encounter
--- OUTSIDE RECORDS SUMMARY | 2019-03-30 12:03 | XMS REPORT | Encounter Summary ---
Author Author [facility] Organization [facility] Address Unknown Phone Unavailable Care Team Providers Care Transportation Clerk Name Role Phone PCP Unavailable Encounter Details Care Team Description Date Type Department Yousif Chowdary DO [address] [place] [address] [phone] 11/12/2004 [place] [address] Social History Date Tobacco Use Types Packs/Day [...] Comments Procedure Name Priority Date/Time Associated Diagnosis XR CHEST 2 VIEWS (PA AND Routine 11/12/2004 LATERAL) 9:59 AM [employer] [place] documented in this encounter Results * XR Chest 2 views (PA and lateral) (11/12/2004 9:59 AM [employer] [place]) Specimen Narrative Performed At [facility] Name: MICKI LUJAN Date of : 1950 Age: 54Y Room-Bed/Loc/Type: -//EJ Check-in #: [id number] Attending Physician: YOUSIF CHOWDARY MDAdmitting Diagnosis: Procedure:DX CHEST 2 VIEWS; [id number] Reason for Exam: PAIN Requested by: YOUSIF CHOWDARY Exam Ordered: 11/12/2004 Malia # / Jacket #: [id number] Exam:CHEST Date/Time of Exam: 11/12/2004 10:04 Reason for Exam:Chest pain PA and lateral views of the chest show the heart to be normal in size.The lungs appear essentially clear and well expanded.The bony structures are demineralized. IMPRESSION: No active disease noted of the chest. Electronically Authenticated By: Hossein Uriostegui M.D. 11/12/2004 17:19:40 Hossein Uriostegui M.D. cc: 1 Procedure Note Interface, Rad Conversion - 10/26/2013 3:50 AM [employer] [place] Report Name: MICKI LUJAN Date of : 1950 Age: 54Y Room-Bed/Loc/Type: -//EJ Check-in #: [id number] Attending Physician: YOUSIF CHOWDARY MD Admitting Diagnosis: Procedure: DX CHEST 2 VIEWS; [id number] Reason for Exam: PAIN Requested by: YOUSIF CHOWDARY Exam Ordered: 11/12/2004 Malia # / Jackugo #: [id number] Exam: CHEST Date/Time of Exam: 11/12/2004 10:04 Reason for Exam: Chest pain PA and lateral views of the chest show the heart to be normal in size. The lungs appear essentially clear and well expanded. The bony structures are demineralized. IMPRESSION: No active disease noted of the chest. Electronically Authenticated By: Hossein Uriostegui M.D. 11/12/2004 17:19:40 Hossein Uriostegui M.D. cc: 1 Performing Organization Address City/State/Zipcode Phone Number MCKESSON documented in this encounter Visit Diagnoses Not on filedocumented in this encounter
--- OUTSIDE RECORDS SUMMARY | 2019-03-30 12:03 | XMS REPORT | Encounter Summary ---
Author Author [facility] Organization [facility] Address Unknown Phone Unavailable Care Team Providers Care Personal Assistant Name Role Phone Judah Lopez RN Unavailable Unavailable Brett Alcantar MD Unavailable Kumar Diggs MD Unavailable Doctor, Miscellaneous Unavailable Unavailable Barbara Pelaez MD Unavailable Adolfo Cardenas MD PCP Fausto Hsu Unavailable Unavailable Nallely Gomez MD Unavailable Silvano Potts MD Unavailable Sarwat Lozano APRN Unavailable Unavailable Aileen Jacobson MD Unavailable Unavailable Leonid Santos MD Unavailable Unavailable Danitza Rios MA,CCC-DOOR TO DOOR SALES REPRESENTATIVE Unavailable Unavailable Gela Cleary RN Unavailable Unavailable Hossein Minaya MD Unavailable Deonna Cunningham RN Unavailable Unavailable Anila Valencia RN Unavailable Unavailable Daniel Bond RN Unavailable Unavailable Yolette Moore MA,CCC-DOOR TO DOOR SALES REPRESENTATIVE Unavailable Unavailable Bryan Romero Unavailable Unavailable Nallely Tracy MA,CCC-DOOR TO DOOR SALES REPRESENTATIVE Unavailable Unavailable Haresh Kathleen MD Unavailable Teetee Taylor RN Unavailable Unavailable Bonnie Goss RN Unavailable Unavailable Maricel Albrecht MD Unavailable Kiarra Patrick RN Unavailable Unavailable Evelio Chris RN 2 Unavailable Todd Avendano MD Unavailable Tatiana Tim PA-C Unavailable Reason for Visit * Reason Comments Prescription Assistance Encounter Details Care Team Description Date Type Department Lesa Sawyer, GERARDO Prescription Assistance 03/24/2019 Telephone [facility] [address] [facility] [address] [place] [address] Social History Date Tobacco Use Types Packs/Day Years Used Quit: 05/17/1972 Former Smoker Cigarettes 0.25 1 Smokeless Tobacco: Never Used Drinks/Week oz/Week Comments Alcohol Use 0 Standard drinks or equivalent 0.0 ~1x/mo Yes Sex Assigned at Date Recorded Not on file Industry Job Start Date Occupation Not on file Not on file Not on file Travel End Travel History Travel Start No recent travel history available. documented as of this encounter Functional Status Date [...] the patient have a cognitive impairment: No documented as of this encounter Miscellaneous Notes * Telephone Encounter - Lesa Sawyer RN - 03/24/2019 3:42 PM CDT Patient called for questions regarding a prescription being sent on her behalf. Tez Witt is who called the patient earlier, transferred patient to Tez Witt. I nstructed patient to leave a detailed message if Tez Witt does not answer. Timothy Sawyer RN documented in this encounter Plan of Treatment Care Team Description Date Type Specialty [facility] [address] [place] [address] [phone] Overactive bladder 04/20/2019 Hospital Encounter Ta Duckworth MD [address] [facility] [address] [place] [address] [phone] CYSTOURETHROSCOPY WITH INJECTION FOR CHEMODENERVATION OF THE BLADDER (BOTOX 100 UNITS) 04/20/2019 Surgery documented as of this encounter Visit Diagnoses Not on filedocumented in this encounter
--- OUTSIDE RECORDS SUMMARY | 2019-03-30 12:03 | XMS REPORT | Encounter Summary ---
Author Author [facility] Organization [facility] Address Unknown Phone Unavailable Care Team Providers Care Silver Miner Name Role Phone Judah Lopez RN Unavailable Unavailable Brett Alcantar MD Unavailable Kumar Diggs MD Unavailable Doctor, Miscellaneous Unavailable Unavailable Barbara Pelaez MD Unavailable Adolfo Cardenas MD PCP Fausto Hsu Unavailable Unavailable Nallely Gomez MD Unavailable Silvano Potts MD Unavailable Sarwat Lozano APRN Unavailable Unavailable Aileen Jacobson MD Unavailable Unavailable Leonid Santos MD Unavailable Unavailable Danitza Rios MA,CCC-MAXILLOFACIAL PATHOLOGY Unavailable Unavailable Gela Cleary RN Unavailable Unavailable Hossein Minaya MD Unavailable Deonna Cunningham RN Unavailable Unavailable Anila Valencia RN Unavailable Unavailable Daniel Bond RN Unavailable Unavailable Yolette Moore MA,CCC-MAXILLOFACIAL PATHOLOGY Unavailable Unavailable Bryan Romero Unavailable Unavailable Nallely Tracy MA,CCC-MAXILLOFACIAL PATHOLOGY Unavailable Unavailable Haresh Kathleen MD Unavailable Teetee Taylor RN Unavailable Unavailable Bonnie Goss RN Unavailable Unavailable Maricel Albrecht MD Unavailable Kiarra Patrick RN Unavailable Unavailable Evelio Chris RN 2 Unavailable Todd Avendano MD Unavailable Tatiana Tim PA-C Unavailable Reason for Visit * Reason Comments Prescription Assistance Encounter Details Care Team Description Date Type Department Lesa Sawyer, GERARDO Prescription Assistance 03/24/2019 Telephone [facility] [address] [place] [phone] Social History Date Tobacco Use Types Packs/Day [...] Encounter - Lesa Sawyer RN - 03/24/2019 3:45 PM CDT Patient called back stating that she left a message for Alina but that her husba nd is at the pharmacy now trying to hand picker the RX. Transferred patient to Bradley yanez who is working the back office at this time. Patient immediately called back stating the voicemail she received was for Romina. Reached out to Pamela the patient's situation, who is expecting the transferred call. Instructed patient that if she did not answer to leave a VM and that she would be called back, pt a greeable. Lesa Sawyer RN documented in this encounter Plan of Treatment Care Team Description Date Type Specialty Ta Duckworth MD [address] [facility] [address] [place] [address] [phone] Overactive bladder 04/20/2019 Hospital Encounter Ta Duckworth MD [address] [facility] [address] [place] [address] CYSTOURETHROSCOPY WITH INJECTION FOR CHEMODENERVATION OF THE BLADDER (BOTOX 100 UNITS) 04/20/2019 Surgery documented as of this encounter Visit Diagnoses Not on filedocumented in this encounter
--- OUTSIDE RECORDS SUMMARY | 2019-03-30 12:03 | XMS REPORT | Clinical Summary ---
Author Author [facility] Organization [facility] Address Unknown Phone Unavailable Care Team Providers Care Parimutuel Cashier Name Role Phone Judah Lopez RN Unavailable Unavailable Brett Alcantar MD Unavailable Kumar Diggs MD Unavailable Doctor, Miscellaneous Unavailable Unavailable Barbara Pelaez MD Unavailable Adolfo Cardenas MD PCP Fausto Hsu Unavailable Unavailable Nallely Gomez MD Unavailable Silvano Potts MD Unavailable Sarwat Lozano APRN Unavailable Unavailable Aileen Jacobson MD Unavailable Unavailable Leonid Santos MD Unavailable Unavailable Danitza Rios MA,CCC-FRESH FOODS CAKE DECORATOR Unavailable Unavailable Gela Cleary RN Unavailable Unavailable Hossein Minaya MD Unavailable Deonna Cunningham RN Unavailable Unavailable Anila Valencia RN Unavailable Unavailable Daniel Bond RN Unavailable Unavailable Yolette Moore MA,CCC-FRESH FOODS CAKE DECORATOR Unavailable Unavailable Bryan Romero Unavailable Unavailable Nallely Tracy MA,CCC-FRESH FOODS CAKE DECORATOR Unavailable Unavailable Haresh Kathleen MD Unavailable Teetee Taylor RN Unavailable Unavailable Bonnie Goss RN Unavailable Unavailable Maricel Albrecht MD Unavailable Kiarra Patrick RN Unavailable Unavailable Evelio Chris RN 2 Unavailable Todd Avendano MD Unavailable Tatiana Tim PA-C Unavailable Source Comments Some departments are not documenting in the electronic medical record. If you d o not see the information that you expected, contact Release of Information in [facility] Information Management department at [phone] for further assistan ce in locating additional records.[facility] Allergies No Known Allergies Medications End Date Status Medication Sig Dispensed Refills Start Date Active zolpidem CR(+) (AMBIEN Take 12.5 mg 0 CR) 12.5 mg tablet by mouth at bedtime as needed. Active gabapentin (NEURONTIN) Take 600 mg 0 600 mg tablet by mouth daily. Active magnesium marcella/aluminum Take 1 Tab by 0 hydroxide(+) (GAVISCON) mouth at 20/80 mg chew bedtime daily. Active pramipexole (MIRAPEX) Take 1 Tab by 60 Tab 1 0.125 mg tablet mouth twice 6 daily. Active acyclovir (ZOVIRAX) 200 Take 1 Cap by 30 Cap 1 mg capsule mouth daily. 6 Active estradiol (ESTRACE) 0.01 Insert or 42.5 g % (0.1 mg/g) vaginal Apply to 7 creamIndications: Urinary vaginal area retention three times weekly. Apply at bedtime. Active simvastatin (ZOCOR) 40 mg Take 40 mg by 0 tablet mouth at bedtime daily. Active citalopram (CELEXA) 10 mg Take 10 mg by 0 tablet mouth daily. Active diphenoxylate/atropine Take 1 tablet 30 tablet 1 (LOMOTIL) 2.5/0.025 mg by mouth four 8 tablet times daily as needed for Diarrhea. Active albuterol (PROAIR HFA, Inhale two 1 Inhaler VENTOLIN HFA, OR puffs by 9 PROVENTIL HFA) 90 mouth into mcg/actuation inhaler the lungs every 6 hours as needed for Wheezing or Shortness of Breath. Shake well before use. Active budesonide/formoterol Inhale two 1 Inhaler (SYMBICORT HFA) 160/4.5 puffs by 9 mcg inhalation mouth into the lungs twice daily. Active pantoprazole DR Take one 60 tablet 2 (PROTONIX) 40 mg tablet tablet by 9 mouth daily. Active empagliflozin/linagliptin Take by 0 (GLYXAMBI PO) mouth. Active oxyCODONE (ROXICODONE, Take 5 mg by 0 OXY-IR) 5 mg tablet mouth every 4 hours as needed for Pain Active betamethasone Apply 45 g 0 dipropionate 0.05 % topically to 9 topical ointment affected area twice daily as directed. Active fluconazole (DIFLUCAN) Take 1 tablet 2 tablet 0 150 mg tablet by mouth 1 9 time today. Repeat 1 tablet by mouth 1 time in 72 hours. Active nystatin/triamcinolone two affected 60 g 3 (MYCOLOG) 100,000 unit/g area twice a 9 / 0.1 % topical ointment day as needed for itching. 03/03/2019 Discontinued metFORMIN (GLUCOPHAGE) Take 1 Tab by 60 Tab 1 500 mg tablet mouth twice 6 daily with meals. 03/15/2019 Discontinued ondansetron (ZOFRAN) 4 mg Take 4 mg by 0 tablet mouth every 8 hours as needed for Nausea or Vomiting. 03/15/2019 Discontinued aspirin 325 mg tablet Take 325 mg 0 by mouth daily. Take with food. 03/15/2019 Discontinued mirabegron(+) ER Take 1 tablet 30 tablet 11 (MYRBETRIQ) 50 mg by mouth 8 tabletIndications: daily. Incomplete bladder emptying 03/18/2019 Discontinued betamethasone twice a day 45 g 0 dipropionate 0.05 % to affected 9 topical ointment area as directed. Active Problems Problem Noted Date Urge incontinence 03/15/2019 Overview: Initial consult 05/05/17 07/24/17 UDS which revealed sensory urgency, +DO, +LPP, small capacity, emptying and dysfunctional voiding. Based on this she was started on PFRT and mirabegron. Completed PFPT Previous trial: vesicare 10mg x 3 years 03/15/19: Depends 1/day, occasional large accidents, and unaware incontinence, no LEDY, taking oxybutynin 10mg XL, Myrbetriq was not covered L ast Assessment & Plan: See above Continue oxybutynin 10mg XL Discussed options continued medication, PTNS, bladder botox, Interstim (note Neurosurgery history) She is interested in pursuing with bladder botox injection, plan low dose, 100 units to start, reviewed risk of urinary retention or incomplete emptying requiring CIC, will arrange with Dr Duckworth (since Dr Winters is leaving and moving practice to [place]), she is okay with meeting Dr Duckworth the day of surgery. Prep for case entered, no date ~ note to Marisela Well controlled intermittent asthma 03/03/2019 Palpitations 04/01/2018 Overview: 03/11/2018 - Holter: 24 [...] Overview: Added automatically from request for surgery [id number] Gastroesophageal reflux disease 11/18/2017 Overview: Added automatically from request for surgery [id number] Diarrhea 11/18/2017 Overview: Added automatically from request for surgery [id number] Incomplete bladder emptying 05/06/2017 Overview: - Increased difficulty voiding and feeling inc emptying - Voids q2h - urgency, MACIEL UDS (07/14/17): sensory urgency, +DO, +LPP, small capacity, emptying and dysfunctional voiding Mirabegron, PFRT-> almost all symptoms resolved 03/15/19: PVR 68cc, on oxybutynin 10mg XL Last Assessment & Plan: See above Vaginal atrophy 05/06/2017 Last Assessment & Plan: Continue Imvexxy Recommend A&D ointment to external vaginal tissue, reviewed avoid internal application Recommend Dermatology and/or gynecology evaluation ~ possible lichen sclerosis Pseudophakia of both eyes 06/13/2016 Visual field [...] Encounters Care Team Description Date Type Specialty Tyrell Braswell MD Medication Follow-up 03/26/2019 Telephone Obstetrics & Lesa Avelar RN Prescription Assistance 03/24/2019 Telephone Obstetrics & Lesa Avelar RN Prescription Assistance 03/24/2019 Telephone Obstetrics & Tyrell Lundberg MD 03/24/2019 Orders Only Obstetrics & Tyrell Lundberg MD Vulvar pruritus (Primary Dx) 03/18/2019 Office Visit Obstetrics Tyrell Short MD 03/18/2019 Orders Only Obstetrics & Lesa Avelar RN 03/18/2019 Documentation Obstetrics & Gynecology Lesa Sawyer RN Appointment 03/17/2019 Telephone Melinda & Lesa Avelar RN Appointment 03/17/2019 Telephone Melinda & Lesa Avelar RN Appointment 03/17/2019 Telephone Obstetrics & Lesa Avelar RN Appointment 03/17/2019 Telephone Obstetrics & Lesa Avelar RN Referral 03/17/2019 Telephone Obstetrics & Gynecology Surekha Winters MD Chronic vaginitis (Primary Dx); Vaginal atrophy; Incomplete bladder emptying; Urge incontinence 03/15/2019 Office Visit Urology Surekha Winters MD Overactive bladder (Primary Dx) 03/15/2019 Prep for Case Urology Elmira Zapata Laryngopharyngeal reflux (Primary Dx); Well controlled intermittent asthma 03/03/2019 Office Visit Pulmonology from Last 3 Months Immunizations Name Administration Dates Next Due Pneumococcal 03/03/2019 Vaccine(13-Lori Peds/immunocompromised adult) Family History Medical History Relation Name Comments [...] Never Used Tobacco Cessation: Counseling Given: Yes Drinks/Week oz/Week Comments Alcohol Use 0 Standard drinks or equivalent 0.0 ~1x/mo Yes Sex Assigned at Date Recorded Not on file Industry Job Start Date Occupation Not on file Not on file Not on file Travel End Travel History Travel Start No recent travel history available. Last Filed Vital Signs Reading Time Taken Comments Vital Sign 128/54 03/18/2019 12:58 PM CDT Blood Pressure 70 03/18/2019 12:58 PM CDT Pulse 36.7 C (98.1 F) 03/03/2019 2:24 PM CDT Temperature 16 03/03/2019 2:24 PM CDT Respiratory Rate 92% 03/03/2019 2:24 PM CDT ra Oxygen Saturation - - Inhaled Oxygen Concentration 102.7 kg (226 lb 6.4 oz) 03/18/2019 12:58 PM CDT Weight 167.6 cm (5' 6") 03/18/2019 12:58 PM CDT Height 36.54 03/18/2019 12:58 PM CDT Body Mass Index Plan of Treatment Care Team Description Date Type Specialty Ta Duckworth MD [address] [facility] [address] [place] [address] [phone] Overactive bladder 04/20/2019 Hospital Encounter Ta Duckworth MD [address] [facility] [address] [place] [address] [phone] CYSTOURETHROSCOPY WITH INJECTION FOR CHEMODENERVATION OF THE BLADDER (BOTOX 100 UNITS) 04/20/2019 Surgery Health Maintenance Due Date Last Done Comments HEPATITIS C SCREENING 1950 DTAP/TDAP VACCINES (1 - 1970 Tdap) SHINGLES RECOMBINANT 2002 VACCINE (1 of 2) BREAST CANCER SCREENING 07/09/2013 07/09/2012 (Previously completed) PHYSICAL (COMPREHENSIVE) 07/09/2013 07/09/2012 (Previously completed) EXAM OSTEOPOROSIS 2017 SCREENING/MONITORING INFLUENZA VACCINE 05/25/2019 07/17/2013, 12/15/2012 (Declined) PNEUMONIA (PCV13/PPSV23) 03/03/2020 03/03/2019 VACCINES (2 of 2 - PPSV23) COLORECTAL CANCER 09/27/2025 09/27/2015 SCREENING Implants Device Identifier Shelf Expiration Date Model / Serial / Lot Implanted Type Area Manufactur er 10/22/2017 [id number] / [id number] / [id number] Cement Bone Smartset Gentamicin Right: Knee J and J 40gm High Viscosity [employer] Implanted: Qty: 2 on 01/25/2016 by : Maricel Mandujano MD at [facility] 11/22/2025 [id number] / [id number] / [id number] Tray Tibial Sigma 2.5 Knee Cocr Right: Knee JandJ:DEPU Cemented Modular Y:YEISONUY Implanted: Qty: 1 on 01/25/2016 by ORTHOPEDIC Maricel Albrecht MD at [facility] 11/22/2020 [id number] / [id number] / [id number] Dome Patellar 38mm Pfc Sigma Small Right: Knee JandJ:DEPU Oval Knee Uhmwpe 3 Peg Y:DEPUY Implanted: Qty: 1 on 01/25/2016 by ORTHOPEDIC Maricel Albrecht MD at [facility] 08/24/2025 [id number] / [id number] / [id number] Component Femoral 2.5 Knee Right Right: Knee JandJ:DEPU Cemented Posterior Y:DEPUY Implanted: Qty: 1 on 01/25/2016 by ORTHOPEDIC Maricel Albrecht MD at [facility] 07/24/2020 [id number] / [id number] / [id number] Insert Tibial 2.5 10mm Knee Gvf Right: Knee JandJ:DEPU Stabilize Sigma Y:DEPUY Implanted: Qty: 1 on 01/25/2016 by ORTHOPEDIC Maricel Albrecht MD at [facility] Procedures Comments Procedure Name Priority Date/Time Associated Diagnosis CULTURE-FUNGAL,OTHER Routine 03/18/2019 Vulvar pruritus 1:00 PM CDT from Last 3 Months Results * CULTURE-FUNGAL,OTHER (03/18/2019 1:00 PM CDT) Battery Name FUNGUS CULTURE [facility]U [facility] Specimen VAGINAL MAIN LAB Description Special NONE KU MAIN LAB Requests Culture Light growth MAIN LAB BASILIO ALBICANS Report Status FINAL MAIN LAB 03/26/2019 Specimen Vaginal Performing Organization Address City/State/Zipcode Phone Number MAIN LAB [address] [place] [address] from Last 3 Months Insurance Type Payer Benefit Subscriber ID Effective Phone Address Plan / Dates Group Medicare MEDICARE MEDICARE xxxxxxxxxxx 2017-P PART A AND resent B Medicare CIGNA CIGNA xxxxxxxxxx 2017-P MEDICARE resent SUPPLEMENT Advance Directives Patient Sleeve Setter Explanation Type Date Recorded Advance 01/25/2016 8:06 AM Directive/DPOA Date Inactivated Comments Code Status Date Activated [...]
--- OUTSIDE RECORDS SUMMARY | 2019-03-30 12:03 | XMS REPORT | Encounter Summary ---
Author Author [facility] Organization [facility] Address Unknown Phone Unavailable Care Team Providers Care Retail Branch Manager Name Role Phone PCP Unavailable Encounter Details Care Team Description Date Type [place] [id number] [place] [address] [phone] 12/09/2007 [facility] [address] [place] [address] Social History Date Tobacco Use Types Packs/Day [...] Procedure Name Priority Date/Time Associated Diagnosis XR FOOT MIN 3 VIEWS LEFT Routine 12/09/2007 9:09 PM CDT XR ANKLE MIN 3 VIEWS LEFT Routine 12/09/2007 7:53 PM CDT XR KNEE 3 VIEWS RIGHT Routine 12/09/2007 7:42 PM CDT documented in this encounter Results * XR Foot min 3 views left (12/09/2007 9:09 PM CDT) Specimen Narrative Performed At [facility] Patient:MICKI LUJAN Med Rec#:[id number] Sex:F :1950 Malia#: [id number] Location: "" Check-in#: [id number] Procedure Requested: [id number] DX FOOT MIN 3 VIEWS LEFT Reason For Exam: ACUTE PAIN Exam Ordered:12/09/20072057 Exam Date/Time:12/09/20072113 Check-in Date/Time:12/09/20072057 AttendinCARITO TAYLOR RequestinCARITO TAYLOR Referrin MARCELLA REFERRING Primary Care: DX FOOT MIN 3 VIEWS LEFT Indication:ACUTE PAIN . Fall. Exam Date:Dec 09, 2007 9:14:00 PM Findings:There is a questionable cortical step-off involving the proximal lateral aspect of the base of the left fifth metatarsal bone. This is suspicious for a nondisplaced fracture. Please correlate clinically with point tenderness. No other findings suspicious for fracture are identified. Joint spaces are within normal limits. There is no evidence of dislocation. Impression: Possible nondisplaced fracture involving the base of the left fifth metatarsal bone. Prepared Foods Team Leader- AFRICA PRESTON, Staff Radiologist Dictated By- AFRICA PRESTON, Staff Radiologist Staff Physician- AFRICA PRESTON, Staff Radiologist Authenticated By- AFRICA PRESTON, Staff Radiologist Released Date Time- 12/10/07 0842 Procedure Note Interface, Rad Conversion - 10/24/2013 4:34 PM CARPET OR RUG LAYER HELPER REPORT Patient: MICKI LUJAN [facility] Rec#: [id number] Sex: F : 1950 Malia#: [id number] Location: "" Check-in#: [id number] Procedure Requested: [id number] DX FOOT MIN 3 VIEWS LEFT Reason For Exam: ACUTE PAIN Exam Ordered: 12/09/20072057 Exam Date/Time: 12/09/20072113 Check-in Date/Time: 12/09/20072057 AttendinCARITO TAYLOR RequestinCARITO TAYLOR Referrin NO, REFERRING Primary Care: DX FOOT MIN 3 VIEWS LEFT Indication: ACUTE PAIN . Fall. Exam Date: Dec 09, 2007 9:14:00 PM Findings: There is a questionable cortical step-off involving the proximal lateral aspect of the base of the left fifth metatarsal bone. This is suspicious for a nondisplaced fracture. Please correlate clinically with point tenderness. No other findings suspicious for fracture are identified. Joint spaces are within normal limits. There is no evidence of dislocation. Impression: Possible nondisplaced fracture involving the base of the left fifth metatarsal bone. Prepared Foods Team Leader- AFRICA RODRIGUEZ M.D., Staff Radiologist Dictated By- AFRICA RODRIGUEZ M.D., Staff Radiologist Staff Physician- AFRICA RODRIGUEZ M.D., Staff Radiologist Authenticated By- AFRICA RODRIGUEZ M.D., Staff Radiologist Released Date Time- 12/10/07 0842 Performing Organization Address City/State/[facility] Phone Number [facility] * XR Ankle min 3 views left (12/09/2007 7:53 PM CDT) Specimen Narrative Performed At REPORT SAM Patient:MICKI LUJAN [facility] Rec#:[id number] Sex:F :1950 Malia#: [id number] Location: "" Check-in#: [id number] Procedure Requested: [id number] DX ANKLE MIN 3 VIEWS LEFT Reason For Exam: ACUTE PAIN Exam Ordered:12/09/20072002 Exam Date/Time:12/09/20072014 Check-in Date/Time:12/09/20072002 AttendinCARITO URIBE Requestin CARITO SULTANA Referrin KEN N[address] Primary Care: DX ANKLE MIN 3 VIEWS LEFT Indication:ACUTE PAIN . Fall. Exam Date:Dec 09, 2007 8:15:00 PM Findings:No fracture, dislocation, or other osseous abnormality is identified in the left ankle.Joint spaces are within normal limits. No abnormal soft tissue swelling or calcification is identified. IMPRESSION:Negative left ankle. Prepared Foods Team Leader- AFRICA PRESTON, Staff Radiologist Dictated ByMaycol PRESTON, Staff Radiologist Staff Physician- AFRICA PRESTON, Staff Radiologist Authenticated ByMaycol PRESTON, Staff Radiologist Released Date Time- 12/10/07 0841 Procedure Note Interface, Rad Conversion - 10/24/2013 4:34 PM CARPET OR RUG LAYER HELPER REPORT Patient: MICKI LUJAN [facility] Rec#: [id number] Sex: F : 1950 Malia#: [id number] Location: "" Check-in#: [id number] Procedure Requested: [id number] DX ANKLE MIN 3 VIEWS LEFT Reason For Exam: ACUTE PAIN Exam Ordered: 12/09/20072002 Exam Date/Time: 12/09/20072014 Check-in Date/Time: 12/09/20072002 Attendin CARITO SULTANA Requestin CARITO SULTANA Referrin NO, REFERRING DR Primary Care: DX ANKLE MIN 3 VIEWS LEFT Indication: ACUTE PAIN . Fall. Exam Date: Dec 09, 2007 8:15:00 PM Findings: No fracture, dislocation, or other osseous abnormality is identified in the left ankle. Joint spaces are within normal limits. No abnormal soft tissue swelling or calcification is identified. IMPRESSION: Negative left ankle. Prepared Foods Team Leader- AFRICA RODRIGUEZ M.D., Staff Radiologist Dictated ByMaycol RODRIGUEZ M.D., Staff Radiologist Staff Physician- AFRICA RODRIGUEZ M.D., Staff Radiologist Authenticated ByMaycol RODRIGUEZ M.D., Staff Radiologist Released Date Time- 12/10/0741 Performing Organization Address City/State/Zipcode Phone Number SAM * XR Knee 3 views right (12/09/2007 7:42 PM CDT) Specimen Narrative Performed At REPORT [facility] Patient:MICKI LUJAN Med Rec#:[id number] Sex:F :1950 Malia#: [id number] Location: "" Check-in#: [id number] Procedure Requested: [id number] DX KNEE 3 VIEWS RIGHT Reason For Exam: ACUTE PAIN Exam Ordered:12/09/20072002 Exam Date/Time:12/09/20072014 Check-in Date/Time:12/09/20072002 AttendinCARITO TAYLOR RequestinCARITO URIBE Referrin NO, REFERRING DR Primary Care: DX KNEE 3 VIEWS RIGHT Indication:ACUTE PAIN . Fall. Exam Date:Dec 09, 2007 8:15:00 PM Findings:No fracture, dislocation, or other osseous abnormality is identified in the right knee.Joint spaces are within normal limits. No abnormal soft tissue swelling or calcification is identified. There is no evidence of joint effusion. IMPRESSION:Negative right knee. Prepared Foods Team Leader- AFRICA PRESTON, Staff Radiologist Dictated By- AFRICA PRESTON, Staff Radiologist Staff Physician- AFRICA PRESTON, Staff Radiologist Authenticated By- AFRICA PRESTON, Staff Radiologist Released Date Time- 12/10/07 0839 Procedure Note Interface, Rad Conversion - 10/24/2013 4:34 PM CARPET OR RUG LAYER HELPER REPORT Patient: MICKI LUJAN Med Rec#: [id number] Sex: F : 1950 Malia#: [id number] Location: "" Check-in#: [id number] Procedure Requested: [id number] DX KNEE 3 VIEWS RIGHT Reason For Exam: ACUTE PAIN Exam Ordered: 12/09/20072002 Exam Date/Time: 12/09/20072014 Check-in Date/Time: 12/09/20072002 AttendinCARITO TAYLOR Requestin CARITO SULTANA Referrin MARCELLA, REFERRING Primary Care: DX KNEE 3 VIEWS RIGHT Indication: ACUTE PAIN . Fall. Exam Date: Dec 09, 2007 8:15:00 PM Findings: No fracture, dislocation, or other osseous abnormality is identified in the right knee. Joint spaces are within normal limits. No abnormal soft tissue swelling or calcification is identified. There is no evidence of joint effusion. IMPRESSION: Negative right knee. Prepared Foods Team Leader- AFRICA RODRIGUEZ M.D., Staff Radiologist Dictated By- AFRICA RODRIGUEZ M.D., Staff Radiologist Staff Physician- AFRICA RODRIGUEZ M.D., Staff Radiologist Authenticated By- AFRICA RODRIGUEZ M.D., Staff Radiologist Released Date Time- 12/10/07 0839 Performing Organization Address City/State/[facility] Hospital[facility] Phone Number MCKESSON documented in this encounter Visit Diagnoses Not on filedocumented in this encounter
--- OUTSIDE RECORDS SUMMARY | 2019-03-30 12:03 | XMS REPORT | Encounter Summary ---
Author Author [facility] Organization [facility] Address Unknown Phone Unavailable Care Team Providers Care Railroad Auditor Name Role Phone Judah Lopez RN Unavailable Unavailable Brett Alcantar MD Unavailable Kumar Diggs MD Unavailable Doctor, Miscellaneous Unavailable Unavailable Barbara Pelaez MD Unavailable Adolfo Cardenas MD PCP Fausto Hsu Unavailable Unavailable Nallely Gomez MD Unavailable Silvano Potts MD Unavailable Sarwat Lozano APRN Unavailable Unavailable Aileen Jacobson MD Unavailable Unavailable Leonid Santos MD Unavailable Unavailable Danitza Rios MA,CCC-PHYSICAL THERAPY DIRECTOR Unavailable Unavailable Gela Cleary RN Unavailable Unavailable Hossein Minaya MD Unavailable Deonna Cunningham RN Unavailable Unavailable Anila Valencia RN Unavailable Unavailable Daniel Bond RN Unavailable Unavailable Yolette Moore MA,CCC-PHYSICAL THERAPY DIRECTOR Unavailable Unavailable Bryan Romero Unavailable Unavailable Nallely Tracy MA,CCC-PHYSICAL THERAPY DIRECTOR Unavailable Unavailable Haresh Kathleen MD Unavailable Teetee Taylor RN Unavailable Unavailable Bonnie Goss RN Unavailable Unavailable Maricel Albrecht MD Unavailable Kiarra Patrick RN Unavailable Unavailable Evelio Chris RN 2 Unavailable Todd Avendano MD Unavailable Tatiana Tim PA-C Unavailable Reason for Visit * Reason Comments Medication Follow-up Encounter Details Care Team Description Date Type Department Tyrell Braswell MD [address] [facility] [address] [place] [address] Medication Follow-up 03/26/2019 Telephone [facility] [address] [place] [address] Social History Date Tobacco Use [...] impairment: No documented as of this encounter Plan of Treatment Care Team Description Date Type Specialty Ta Duckworth MD [address] [facility] [address] [place] [address] Overactive bladder 04/20/2019 Hospital Encounter Ta Duckworth MD [address] [facility] [address] [place] [address] CYSTOURETHROSCOPY WITH INJECTION FOR CHEMODENERVATION OF THE BLADDER (BOTOX 100 UNITS) 04/20/2019 Surgery documented as of this encounter Visit Diagnoses Not on filedocumented in this encounter
--- OUTSIDE RECORDS SUMMARY | 2019-03-30 12:03 | XMS REPORT | Encounter Summary ---
Author Author [facility] Organization [facility] Address Unknown Phone Unavailable Care Team Providers Care Head Counselor Name Role Phone Judah Lopez RN Unavailable Unavailable Brett Alcantar MD Unavailable Kumar Diggs MD Unavailable Doctor, Miscellaneous Unavailable Unavailable Barbara Pelaez MD Unavailable Adolfo Cardenas MD PCP Fausto Hsu Unavailable Unavailable Nlalely Gomez MD Unavailable Silvano Potts MD Unavailable Sarwat Lozano APRN Unavailable Unavailable Aileen Jacobson MD Unavailable Unavailable Leonid Santos MD Unavailable Unavailable Danitza Rios MA,CCC-MACHINE TOOL REBUILDER Unavailable Unavailable Gela Cleary RN Unavailable Unavailable Hossein Minaya MD Unavailable Deonna Cunningham RN Unavailable Unavailable Anila Valencia RN Unavailable Unavailable Daniel Bond RN Unavailable Unavailable Yolette Moore MA,CCC-MACHINE TOOL REBUILDER Unavailable Unavailable Bryan Romero Unavailable Unavailable Nallely Tracy MA,CCC-MACHINE TOOL REBUILDER Unavailable Unavailable Haresh Kathleen MD Unavailable Teetee Taylor RN Unavailable Unavailable Bonnie Goss RN Unavailable Unavailable Maricel Albrecht MD Unavailable Kiarra Patrick RN Unavailable Unavailable Evelio Chris RN 2 Unavailable Todd Avendano MD Unavailable Tatiana Tim PA-C Unavailable Encounter Details Care Team Description Date Type Department Tyrell Braswell MD [address] Ortho[facility]Med Pavilion Lvl [address] [place] [address] [phone] 03/24/2019 Orders Only ihe [facility] [address] [facility] [address] [place] [address] Social History Date Tobacco Use Types Packs/Day [...] impairment: No documented as of this encounter Progress Notes * Alina Witt LPN - 03/24/2019 8:26 AM CDT Swab [id number] for yeast. Pt. Notified, RX to pharmacy. Patient has scheduled fo [facility] up appointment. documented in this encounter Plan of Treatment Care Team Description Date Type Specialty Ta Duckworth MD [address] Ortho/Med Pavilion L[address] [place] [address] [phone] Overactive bladder 04/20/2019 Hospital Encounter Ta Duckworth MD [address] [facility] Ortho/Med Pavilion l [address] [place] [address] [phone] CYSTOURETHROSCOPY WITH INJECTION FOR CHEMODENERVATION OF THE BLADDER (BOTOX 100 UNITS) 04/20/2019 Surgery documented as of this encounter Visit Diagnoses Not on filedocumented in this encounter
--- OUTSIDE RECORDS SUMMARY | 2019-03-30 12:03 | XMS REPORT | Encounter Summary ---
Author Author [facility] Organization [facility] Address Unknown Phone Unavailable Care Team Providers Care Blanket Weaver Name Role Phone PCP Unavailable Encounter Details Care Team Description Date Type Department Evelio Mcbride DO [address] [place] [address] [phone] 05/12/2004 [place] [address] Social History Date Tobacco Use Types Packs/Day Years Used Never Assessed Sex Assigned at Date Recorded Not on file Industry Job Start Date Occupation Not on file Not on file Not on file Travel End Travel History Travel Start No recent travel history available. documented as of this encounter ED Notes * Evelio Mcbride - 10/23/2013 5:08 PM BPM DEVELOPER Report Name: MICKI LUJAN MRN/Unit #: [id number] Date of : 1950 Attending Physician: EVELIO MCBRIDE MD CHIEF COMPLAINT: CSF leak. HISTORY OF PRESENT ILLNESS: This is a 54-year-old female who is status post Chiari decomp[facility] by Dr[facility] [place] [facility]. The patient he patient presents to the emergency department after she had seen Dr. Morales yesterday and was cleared to fly back here to [place]. The patient notes during her flight that she had some watery type fluid from her occiput. The patient was also noted initially by the nurses that it was leaking. The patient states that she has a headache, worse when she stands up. Denies any thunderclap headache. Denies any fevers. Does note some photophobia. Denies any neck pain. CARDIAC: Denies chest pain, shortness of breath, or palpitations. PULMONARY: Denies cough, wheezes, sputum production. MUSCULOSKELETAL: Denies any extremity pain or joint pain. PAST MEDICAL HISTORY: As above. MEDICATIONS: Bextra, Vicodin, Flexeril, Tegretol, and hydrochlorothiazide. ALLERGIES: NONE. SOCIAL HISTORY: She denies tobacco use or alcohol use. PHYSICAL EXAMINATION: VITAL SIGNS: The patient's vital signs are stable, noted normal in triage. Note, she was alert and oriented times three. She was in no acute distress. She was comfortable. Mucous membranes are moist. Oropharynx was clear. NECK: Supple. Her cranial nerves II-XII are within normal limits. Speech normal. Gait normal. Normal and symmetrical DTRs. Her occipital scalp initially was seen by myself. There was no sign of CSF leak. The patient then had an IV placed. She was given Zofran and titrated Demerol for pain. She had a CT scan of her head that revealed no acute disease. Her laboratory showed normal CBC, normal chemistries. Her carbimazole was less than 2. The patient was re-examined. There was a slight ooze of CSF seen at the superior segment. The case was then discussed with Dr. Morales. Dr. Morales preferred her back at her institution to be evaluated and seen by her. I put two stitches in the superior aspect of the area of potential leakage. The patient herself also preferred to be cared for by Dr. Morales and was comfortable and preferred transfer back to [place]. The case was also discussed with the hospitalist at [facility]. The patient then proceeded to note that the patient agreed to suture placement in the postop wound. The wound was cleaned in a sterile fashion. Betadine and sterile drapes. The patient then had two 3-0 nylon sutures placed with no further CSF leak seen. INITIAL IMPRESSION: Cerebrospinal fluid leak. She was transferred to Dr. Morales inpatient to [facility]. Her condition was stable. Evelio Mcbride M.D. cc: Evelio Mcbride M.D., [facility] Attending physician DEVELOPER documented in this encounter Plan of Treatment Not on filedocumented as of this encounter Procedures Comments Procedure Name Priority Date/Time Associated Diagnosis DIFFERENTIAL Routine 05/12/2004 1:56 PM CDT CBC AND DIFF (MANUAL DIFF Routine 05/12/2004 IF NECESSARY) 1:56 PM CDT CARBAMAZEPINE Routine 05/12/2004 1:56 PM CDT BASIC METABOLIC PANEL Routine 05/12/2004 1:[address] HEAD Routine 05/12/2004 1:47 PM CDT documented in this encounter Results * CBC and Diff (manual diff if necessary) (05/12/2004 1:56 PM CDT) WBC 9.0 4.0 - 11.0 TH/UL [facility] RBC 5.43 (H) 4.00 - 5.00 MIL/UL [facility] Hemoglobin 14.3 12.0 - 15.0 G/DL [facility] Hematocrit 44 36 - 45 % [facility] MCV 80 80 - 99 FL [facility] MCH 26 (L) 27 - 34 PG [facility] MCHC 33 32 - 36 % [facility] RDW 12.5 <14.5 % [facility] Platelet Count 345 140 - 400 TH/UL [facility] Specimen Blood Performing Organization Address City/State/Zipcode Phone Number [facility] [address] [place] [address] [facility] * DIFFERENTIAL (05/12/2004 1:56 PM CDT) % Neutrophils 63 45 - 78 % [facility] %Lymphocytes 28 15 - 47 % [facility] %Monocytes 6 0 - 12 % [facility] %Eosinophils 2 0 - 7 % [facility] %Basophils 1 0 - 2 % [facility] # Granulocytes 5.7 1.7 - 6.8 TH/UL [facility] # Lymphocytes 2.5 1.0 - 3.3 TH/UL [facility] # Monocytes 0.5 0.2 - 0.9 TH/UL [facility] # Eosinophils 0.2 0.0 - 0.4 TH/UL [facility] # Basophils 0.1 0.0 - 0.2 TH/UL [facility] Specimen Blood Performing Organization Address [facility] [place] [facility] Phone Number R [address] [place] [address] [facility] * Basic Metabolic Panel (05/12/2004 1:56 PM CDT) Sodium 140 134 - 144 MEQ/L [facility] Potassium 3.7 3.6 - 5.0 MEQ/L [facility] Chloride 105 98 - 107 MEQ/L [facility] Carbon Dioxide 26 23 - 32 MEQ/L [facility] Anion Gap 9 3 - 15 [facility] Creatinine 0.9 0.5 - 1.5 MG/DL [facility] Blood Urea 15 5 - 20 MG/DL [facility] Nitrogen Glucose 120 (H) 65 - 100 MG/DL [facility] Calcium 9.6 8.8 - 10.5 MG/DL [facility] Specimen Blood Performing Organization Address [facility] [place] [facility] Phone Number R [address] [place] [address] [facility] * Carbamazepine (05/12/2004 1:56 PM CDT) Carbamazepine <0.2 (A) 4.0 - 12.0 UG/ML [facility] Specimen Blood Performing Organization Address [facility] [place] [facility] Phone Number R [address] [place] [address] [facility] * CT Head (05/12/2004 1:47 PM CDT) Specimen Narrative Performed At [facility] SAM Name: MICKI LUJAN Date of : 1950 Age: 54Y Room-Bed/Loc/Type: -// Check-in #: [id number] Attending Physician: EVELIO MCBRIDE MDAdmitting Diagnosis: Procedure:CT HEAD; 36555 Reason for Exam: HEADACHE Requested by: EVELIO MCBRIDE Exam Ordered: 05/12/2004 Malia # / Jacket #: [id number] Exam:CT OF THE HEAD Date/Time of Exam: 05/12/2004 Reason for Exam:RECENT CHIARI MALFORMATION COMPRESSION RELEASE 5 mm axial images are acquired, from the base of the skull, through the vertex. Prior films are not available for comparison. FINDINGS:There is evidence for a suboccipital craniotomy and craniectomy. There is some subcutaneous air. Air intracranially is also noted in the non-dependent portion. The fourth ventricle is preserved. There is no evidence of acute intracranial hemorrhage. The ventricles are small. No abnormal extra-axial fluid collections are identified. The visualized portions of the orbits, mastoids, and paranasal sinuses are normal. IMPRESSION:Status post occipital craniectomy, with pneumocephalus, but without compression of the brain stem, without evidence of acute hemorrhage. Comparison with previous studies would be of benefit to confirm the presence or absence of changes. Electronically Authenticated By: Gilbert Zaidi MD 05/14/2004 18:28:57 Gilbert Zaidi MD cc: 1 Procedure Note Interface, Rad Conversion - 10/26/2013 5:54 AM BPM DEVELOPER Report Name: MICKI LUJAN Date of : 1950 Age: 54Y Room-Bed/Loc/Type: -//EJ Check-in #: [id number] Attending Physician: EVELIO MCBRIDE MD Admitting Diagnosis: Procedure: CT HEAD; [id number] Reason for Exam: HEADACHE Requested by: EVELIO MCBRIDE Exam Ordered: 05/12/2004 Malia # / Jacket #: [id number] Exam: CT OF THE HEAD Date/Time of Exam: 05/12/2004 Reason for Exam: RECENT CHIARI MALFORMATION COMPRESSION RELEASE 5 mm axial images are acquired, from the base of the skull, through the vertex. Prior films are not available for comparison. FINDINGS: There is evidence for a suboccipital craniotomy and craniectomy. There is some subcutaneous air. Air intracranially is also noted in the non-dependent portion. The fourth ventricle is preserved. There is no evidence of acute intracranial hemorrhage. The ventricles are small. No abnormal extra-axial fluid collections are identified. The visualized portions of the orbits, mastoids, and paranasal sinuses are normal. IMPRESSION: Status post occipital craniectomy, with pneumocephalus, but without compression of the brain stem, without evidence of acute hemorrhage. Comparison with previous studies would be of benefit to confirm the presence or absence of changes. Electronically Authenticated By: Gilbert Zaidi MD 05/14/2004 18:28:57 Gilbert Zaidi MD cc: 1 Performing Organization Address City/State/Zipcode Phone Number [facility] documented in this encounter Visit Diagnoses Not on filedocumented in this encounter
--- OUTSIDE RECORDS SUMMARY | 2019-03-30 12:04 | XMS REPORT | Encounter Summary ---
Author Author [facility] Organization [facility] Address Unknown Phone Unavailable Care Team Providers Care Ice Carver Name Role Phone Judah Lopez RN Unavailable Unavailable Brett Alcantar MD Unavailable Kumar Diggs MD Unavailable Doctor, Miscellaneous Unavailable Unavailable Barbara Pelaez MD Unavailable Adolfo Cardenas MD PCP Fausto Hsu Unavailable Unavailable Nallely Gomez MD Unavailable Silvano Potts MD Unavailable Sarwat Lozano APRN Unavailable Unavailable Aileen Jacobson MD Unavailable Unavailable Leonid Santos MD Unavailable Unavailable Danitza Rios MA,CCC-HEAD WAITER/WAITRESS Unavailable Unavailable Gela Cleary RN Unavailable Unavailable Hossein Minaya MD Unavailable Deonna Cunningham RN Unavailable Unavailable Anila Valencia RN Unavailable Unavailable Daniel Bond RN Unavailable Unavailable Yolette Moore MA,CCC-HEAD WAITER/WAITRESS Unavailable Unavailable Bryan Romero Unavailable Unavailable Nallely Tracy MA,CCC-HEAD WAITER/WAITRESS Unavailable Unavailable Haresh Kathleen MD Unavailable Teetee Taylor RN Unavailable Unavailable Bonnie Goss RN Unavailable Unavailable Maricel Albrecht MD Unavailable Kiarra Patrick RN Unavailable Unavailable Evelio Chris RN 2 Unavailable Todd Avendano MD Unavailable Tatiana Tim PA-C Unavailable Reason for Visit * Reason Comments Appointment Encounter Details Care Team Description Date Type Department Leas Sawyer, GERARDO Appointment 03/17/2019 Telephone [facility] [address] [place] [address] Social History Date Tobacco Use [...] Telephone Encounter - Lesa Sawyer RN - 03/17/2019 4:02 PM CDT Left VM for patient stating that I had an appointment for her tomorrow and reall y need her to call back to confirm. Let her know that I would be leaving the off ice soon but will be back around 745 am. Call back number provided. Requested ca ll back FRANNIE. documented in this encounter Plan of Treatment Care Team Description Date Type Specialty Ta Duckworth MD [address] Ortho/Med Pavilion [address] [place] [address] [phone] Overactive bladder 04/20/2019 Hospital Encounter Ta Duckworth MD [address] [facility] [address] [place] [address] [phone] CYSTOURETHROSCOPY WITH INJECTION FOR CHEMODENERVATION OF THE BLADDER (BOTOX 100 UNITS) 04/20/2019 Surgery documented as of this encounter Visit Diagnoses Not on filedocumented in this encounter
--- OUTSIDE RECORDS SUMMARY | 2019-03-30 12:04 | XMS REPORT | Encounter Summary ---
Author Author [facility] Organization [facility] Address Unknown Phone Unavailable Care Team Providers Care Cd Mixer Helper Name Role Phone Judah Lopez RN Unavailable Unavailable Brett Alcantar MD Unavailable Kumar Diggs MD Unavailable Doctor, Miscellaneous Unavailable Unavailable Barbara Pelaez MD Unavailable Adolfo Cardenas MD PCP Fausto Hsu Unavailable Unavailable Nallely Gomez MD Unavailable Silvano Potts MD Unavailable Sarwat Lozano APRN Unavailable Unavailable Aileen Jacobson MD Unavailable Unavailable Leonid Santos MD Unavailable Unavailable Danitza Rios MA,CCC-MUD BOSS Unavailable Unavailable Gela Cleary RN Unavailable Unavailable Hossein Minaya MD Unavailable Deonna Cunningham RN Unavailable Unavailable Anila Valencia RN Unavailable Unavailable Daniel Bond RN Unavailable Unavailable Yolette Moore MA,CCC-MUD BOSS Unavailable Unavailable Bryan Romero Unavailable Unavailable Nallely Tracy MA,CCC-MUD BOSS Unavailable Unavailable Haresh Kathleen MD Unavailable Teetee Taylor RN Unavailable Unavailable Bonnie Goss RN Unavailable Unavailable Maricel Albrecht MD Unavailable Kiarra Patrick RN Unavailable Unavailable Evelio Chris RN 2 Unavailable Todd Avendano MD Unavailable Tatiana Tim PA-C Unavailable Encounter Details Care Team Description Date Type Department Lesa Sawyer RN 03/18/2019 Documentation [facility] [address] [place] [phone] Social History Date Tobacco Use Types Packs/Day [...] as of this encounter Progress Notes * Lesa Sawyer RN - 03/18/2019 1:18 PM CDT I noted patient had arrived to her appointment and I provided her with the HE f orm to sign. Consent form signed and faxed to Dr. Aburto's office at . Patient reports that Micki at Dr. Aburto's office is ready with the infor mation and will fax it over. Called Micki at 115pm and she verified receipt of f ax and sent request to [facility] and urged them to send the records immediately . [facility]'s number is [phone]. Lesa Sawyer RN documented in this encounter Plan of Treatment Care Team Description Date Type Specialty Ta Duckworth MD [address] Ortho/Med Pavilion [address] [place] [address] [phone] Overactive bladder 04/20/2019 Hospital Encounter Ta Duckworth MD [address] Ortho/Med Pavilion [address] [place] [address] [phone] CYSTOURETHROSCOPY WITH INJECTION FOR CHEMODENERVATION OF THE BLADDER (BOTOX 100 UNITS) 04/20/2019 Surgery documented as of this encounter Visit Diagnoses Not on filedocumented in this encounter
--- OUTSIDE RECORDS SUMMARY | 2019-03-30 12:04 | XMS REPORT | Encounter Summary ---
Author Author [facility] Organization [facility] Address Unknown Phone Unavailable Care Team Providers Care Tele Tech Name Role Phone Judah Lopez RN Unavailable Unavailable Brett Alcantar MD Unavailable Kumar Diggs MD Unavailable Doctor, Miscellaneous Unavailable Unavailable Barbara Pelaez MD Unavailable Adolfo Cardenas MD PCP Fausto Hsu Unavailable Unavailable Nallely Gomez MD Unavailable Silvano Potts MD Unavailable Sarwat Lozano APRN Unavailable Unavailable Aileen Jacobson MD Unavailable Unavailable Leonid Santos MD Unavailable Unavailable Danitza Rios MA,CCC-MANAGER MACHINE Unavailable Unavailable Gela Cleary RN Unavailable Unavailable Hossein Minaya MD Unavailable Deonna Cunningham RN Unavailable Unavailable Anila Valencia RN Unavailable Unavailable Daniel Bond RN Unavailable Unavailable Yolette Moore MA,CCC-MANAGER MACHINE Unavailable Unavailable Bryan Romero Unavailable Unavailable Nallely Tracy MA,CCC-MANAGER MACHINE Unavailable Unavailable Haresh Kathleen MD Unavailable Teetee Taylor RN Unavailable Unavailable Bonnie Goss RN Unavailable Unavailable Maricel Albrecht MD Unavailable Kiarra Patrick RN Unavailable Unavailable Evelio Chris RN 2 Unavailable Todd Avendano MD Unavailable Tatiana Tim PA-C Unavailable Reason for Visit * Reason Comments Facilities Painter Exam Encounter Details Care Team Description Date Type Department Tyrell Braswell MD [address] [facility] Lvl [address]B [place] [address] Vulvar pruritus (Primary Dx) 03/18/2019 Office Visit [facility] [address] [place] [address] Social History Date Tobacco Use [...] Pressure 70 03/18/2019 12:58 PM CDT Pulse - - Temperature - - Respiratory Rate - - Oxygen Saturation - - Inhaled Oxygen Concentration 102.7 kg (226 lb 6.4 oz) 03/18/2019 12:58 PM CDT Weight 167.6 cm (5' 6") 03/18/2019 12:58 PM CDT Height 36.54 03/18/2019 12:58 PM CDT Body Mass Index documented in this encounter Functional Status Date of [...] as of this encounter Progress Notes * Tyrell Braswell MD - 03/18/2019 1:00 PM CDT Date of Service: 03/18/2019 Subjective: Micki Kelley is a 68 y.o. female. History of Present Illness Ms. Kelley comes in today for vulvar pruritis. She is referred by Dr. Michael randhawa of [facility] urology. The patient is a 68 yo G 3 P 3 with a 5 month history of i ntense vulvar itching, also with burning. Denies vaginal discharge. Itching i s worse with contact with water and clothing. Pt has not found any relieving fa ctors, is using A & D ointment with poor results. Pt wears adult absorbant diapers for incontinence. No outside blankbook stitching machine operator records available for review. Pt states she was treated with ant ifungal medications earlier this year for her pruritis. These medications did not resolve her symptoms. PMH, fam / social history reviewed from [facility] notes. Pt had hysterectomy at age 29 without removal of the ovaries. She began having hot flashes in her early f ifties. She was prescribed topical estradiol several years ago but does not use it consistently. History of laser tx of genital warts in her 20s. Takes ac yclovir for oral HSV. Review of Systems Constitutional: Positive for fatigue and unexpected weight change. Negative for fever. HENT: Negative for voice change. Respiratory: Positive for shortness of breath. Negative for cough. Cardiovascular: Negative for chest pain and leg swelling. Gastrointestinal: Positive for constipation and diarrhea. Negative for abdominal pain, blood in stool, nausea and vomiting. Genitourinary: Positive for dysuria and vaginal pain. Negative for difficulty ur inating, dyspareunia, enuresis, frequency, genital sores, hematuria, menstrual p roblem, pelvic pain, urgency, vaginal bleeding and vaginal discharge. Musculoskeletal: Negative for arthralgias and back pain. Skin: Negative for rash. Neurological: Negative for light-headedness and headaches. Hematological: Negative for adenopathy. Does not bruise/bleed easily. Psychiatric/Behavioral: Negative for confusion. The patient is not nervous/anxio us. Objective: acyclovir (ZOVIRAX) 200 mg capsule Take 1 Cap by mouth daily. albuterol (PROAIR HFA, VENTOLIN HFA, OR PROVENTIL HFA) 90 mcg/actuation inha ler Inhale two puffs by mouth into the lungs every 6 hours as needed for Wheezin g or Shortness of Breath. Shake well before use. budesonide/formoterol (SYMBICORT HFA) 160/4.5 mcg inhalation Inhale two puff s by mouth into the lungs twice daily. citalopram (CELEXA) 10 mg tablet Take 10 mg by mouth daily. diphenoxylate/atropine (LOMOTIL) 2.5/0.025 mg tablet Take 1 tablet by mouth four times daily as needed for Diarrhea. empagliflozin/linagliptin (GLYXAMBI PO) Take by mouth. estradiol (ESTRACE) 0.01 % (0.1 mg/g) vaginal cream Insert or Apply to vagi nal area three times weekly. Apply at bedtime. gabapentin (NEURONTIN) 600 mg tablet Take 600 mg by mouth daily. magnesium marcella/aluminum hydroxide(+) (GAVISCON) 20/80 mg chew Take 1 Tab by mouth at bedtime daily. oxyCODONE (ROXICODONE, OXY-IR) 5 mg tablet Take 5 mg by mouth every 4 hours as needed for Pain pantoprazole DR (PROTONIX) 40 mg tablet Take one tablet by mouth daily. pramipexole (MIRAPEX) 0.125 mg tablet Take 1 Tab by mouth twice daily. (Mariel ent taking differently: Take 0.5 mg by mouth twice daily.) simvastatin (ZOCOR) 40 mg tablet Take 40 mg by mouth at bedtime daily. zolpidem CR(+) (AMBIEN CR) 12.5 mg tablet Take 12.5 mg by mouth at bedtime a s needed. Vitals: 03/18/19 1258 BP: 128/54 Pulse: 70 Weight: 102.7 kg (226 lb 6.4 oz) Height: 167.6 cm (66") Body mass index is 36.54 kg/m. Physical Exam Constitutional: She is oriented to person, place, and time. She appears well-dev eloped and well-nourished. HENT: Head: Normocephalic and atraumatic. Eyes: Conjunctivae are normal. Neck: No thyromegaly present. Pulmonary/Chest: Effort normal. Genitourinary: There is rash and tenderness on the right labia. There is rash an d tenderness on the left labia. No erythema or bleeding in the vagina. No vagina l discharge found. Genitourinary Comments: erythema and edema of medial vulva involving the keratin ized skin. Extends to perineum but not to vagina or perirectal area. White co alfred change in perineum. Fungal culture done. Neurological: She is alert and oriented to person, place, and time. Skin: Skin is warm and dry. Psychiatric: She has a normal mood and affect. Her behavior is normal. Judgment and thought content normal. Nursing note and vitals reviewed. Assessment and Plan: Several potential items in differential diagnosis. These include contact derma titis, Charlene vaginitis and lichen sclerosus. Fungal culture done. Will pres cribed topical steroids BID, see scripts. RTC 2-3 weeks. addendum - outside records received after visit. No clinical notes included, chandana hernandez mammography records. documented in this encounter Plan of Treatment Care Team Description Date Type Specialty Ta Duckworth MD [address] [facility] [address] [place], [place] [id number] Overactive bladder 04/20/2019 Hospital Encounter Ta Duckworth MD [address] [facility] [address] [place] [address] [phone] CYSTOURETHROSCOPY WITH INJECTION FOR CHEMODENERVATION OF THE BLADDER (BOTOX 100 UNITS) 04/20/2019 Surgery documented as of this encounter Procedures Comments Procedure Name Priority Date/Time Associated Diagnosis CULTURE-FUNGAL,OTHER Routine 03/18/2019 Vulvar pruritus 1:00 PM CDT documented in this encounter Results * CULTURE-FUNGAL,OTHER (03/18/2019 1:00 PM CDT) Battery Name FUNGUS CULTURE [facility] Specimen VAGINAL [facility] Description Special NONE [facility] Requests Culture Light growth [facility] CHARLENE ALBICANS Report Status FINAL [facility] 03/26/2019 Specimen Vaginal Performing Organization Address City/State/Zipcode Phone Number [facility] [address] [place] [address] documented in this encounter Visit Diagnoses Diagnosis Vulvar pruritus - Primary Pruritus of genital organs documented in this encounter
--- OUTSIDE RECORDS SUMMARY | 2019-03-30 12:04 | XMS REPORT | Encounter Summary ---
Author Author [facility] Organization [facility] Address Unknown Phone Unavailable Care Team Providers Care Core Blower Operator Name Role Phone Judah Lopez RN Unavailable Unavailable Brett Alcantar MD Unavailable Kumar Diggs MD Unavailable Doctor, Miscellaneous Unavailable Unavailable Barbara Pelaez MD Unavailable Adolfo Cardenas MD PCP Fausto Hsu Unavailable Unavailable Nallely Gomez MD Unavailable Silvano Potts MD Unavailable Sarwat Lozano APRN Unavailable Unavailable Aileen Jacobson MD Unavailable Unavailable Leonid Santos MD Unavailable Unavailable Danitza Rios MA,CCC-DIRECTOR OF DISTRICT OFFICE Unavailable Unavailable Gela Cleary RN Unavailable Unavailable Hossein Minaya MD Unavailable Deonna Cunningham RN Unavailable Unavailable Anila Valencia RN Unavailable Unavailable Daniel Bond RN Unavailable Unavailable Yolette Moore MA,CCC-DIRECTOR OF DISTRICT OFFICE Unavailable Unavailable Bryan Romero Unavailable Unavailable Nallely Tracy MA,CCC-DIRECTOR OF DISTRICT OFFICE Unavailable Unavailable Haresh Kathleen MD Unavailable Teetee Taylor RN Unavailable Unavailable Bonnie Goss RN Unavailable Unavailable Maricel Albrecht MD Unavailable Kiarra Patrick RN Unavailable Unavailable Evelio Chris RN 2 Unavailable Todd Avendano MD Unavailable Tatiana Tim PA-C Unavailable Reason for Visit * Reason Comments Appointment Encounter Details Care Team Description Date Type Department Lesa Sawyer, GERARDO Appointment 03/17/2019 Telephone [facility] [address] [place] [address] Social History Date Tobacco Use [...] Encounter - Lesa Sawyer RN - 03/17/2019 2:15 PM CDT Calling to discuss appointment for tomorrow. Did not leave message since message left 1 hour ago. Lesa Sawyer RN documented in this encounter Plan of Treatment Care Team Description Date Type Specialty Ta Duckworth MD [address] [facility] [address] [place] [address] [phone] Overactive bladder 04/20/2019 Hospital Encounter Ta Duckworth MD [address] [facility] [address] [place] [address] [phone] CYSTOURETHROSCOPY WITH INJECTION FOR CHEMODENERVATION OF THE BLADDER (BOTOX 100 UNITS) 04/20/2019 Surgery documented as of this encounter Visit Diagnoses Not on filedocumented in this encounter
--- OUTSIDE RECORDS SUMMARY | 2019-03-30 12:04 | XMS REPORT | Encounter Summary ---
Author Author [facility] Organization [facility] Address Unknown Phone Unavailable Care Team Providers Care Clinical Professor Name Role Phone Judah Lopez RN Unavailable Unavailable Brett Alcantar MD Unavailable Kumar Diggs MD Unavailable Doctor, Miscellaneous Unavailable Unavailable Barbara Pelaez MD Unavailable Adolfo Cardenas MD PCP Fausto Hsu Unavailable Unavailable Nallely Gomez MD Unavailable Silvano Potts MD Unavailable Sarwat Lozano APRN Unavailable Unavailable Aileen Jacobson MD Unavailable Unavailable Leonid Santos MD Unavailable Unavailable Danitza Rios MA,CCC-CAMP RECREATION SPECIALIST Unavailable Unavailable Gela Cleary RN Unavailable Unavailable Hossein Minaya MD Unavailable Deonna Cunningham RN Unavailable Unavailable Anila Valencia RN Unavailable Unavailable Daniel Bond RN Unavailable Unavailable Yolette Moore MA,CCC-CAMP RECREATION SPECIALIST Unavailable Unavailable Bryan Romero Unavailable Unavailable Nallely Tracy MA,CCC-CAMP RECREATION SPECIALIST Unavailable Unavailable Haresh Kathleen MD Unavailable Teetee Taylor RN Unavailable Unavailable Bonnie Goss RN Unavailable Unavailable Maricel Albrecht MD Unavailable Kiarra Patrick RN Unavailable Unavailable Evelio Chris RN 2 Unavailable Todd Avendano MD Unavailable Tatiana Tim PA-C Unavailable Reason for Visit * Reason Comments Appointment Encounter Details Care Team Description Date Type Department Lesa Sawyer RN Appointment 03/17/2019 Telephone [facility] [address] [place] [address] Social History Date Tobacco Use [...] encounter Miscellaneous Notes * Telephone Encounter - Leas Sawyer RN - 03/17/2019 1:09 PM CDT Message left for patient to return my call FRANNIE. Lesa Sawyer RN Referral info discussed with Dr. Braswell/Alina Witt LPN. OK to book patient as o verbook tomorrow in Dr. Braswell's clinic at 1pm. Calling to notify patient of new a ppointment. documented in this encounter Plan of Treatment Care Team Description Date Type Specialty Ta Duckworth MD [address] [facility] [address] [place] [address] [phone] Overactive bladder 04/20/2019 Hospital Encounter Ta Duckworth MD [address] [facility] [address] [place] [address] [phone] CYSTOURETHROSCOPY WITH INJECTION FOR CHEMODENERVATION OF THE BLADDER (BOTOX 100 UNITS) 04/20/2019 Surgery documented as of this encounter Visit Diagnoses Not on filedocumented in this encounter
--- OUTSIDE RECORDS SUMMARY | 2019-03-30 12:04 | XMS REPORT | Encounter Summary ---
Author Author [facility] Organization [facility] Address Unknown Phone Unavailable Care Team Providers Care Animal Impersonator Name Role Phone Judah Lopez RN Unavailable Unavailable Brett Alcantar MD Unavailable Kumar Diggs MD Unavailable Doctor, Miscellaneous Unavailable Unavailable Barbara Pelaez MD Unavailable Adolfo Cardenas MD PCP Fausto Hsu Unavailable Unavailable Nallely Gomez MD Unavailable Silvano Potts MD Unavailable Sarwat Lozano APRN Unavailable Unavailable Aileen Jacobson MD Unavailable Unavailable Leonid Santos MD Unavailable Unavailable Danitza Rios MA,CCC-HEEL MOLDER Unavailable Unavailable Gela Cleary RN Unavailable Unavailable Hossein Minaya MD Unavailable Deonna Cunningham RN Unavailable Unavailable Anila Valencia RN Unavailable Unavailable Daniel Bond RN Unavailable Unavailable Yolette Moore MA,CCC-HEEL MOLDER Unavailable Unavailable Bryan Romero Unavailable Unavailable Nallely Tracy MA,CCC-HEEL MOLDER Unavailable Unavailable Haresh Kathleen MD Unavailable Teetee Taylor RN Unavailable Unavailable Bonnie Goss RN Unavailable Unavailable Maricel Albrecht MD Unavailable Kiarra Patrick RN Unavailable Unavailable Evelio Chris RN 2 Unavailable Todd Avendano MD Unavailable Tatiana Tim PA-C Unavailable Reason for Visit * Reason Comments Referral Encounter Details Care Team Description Date Type Department Lesa Sawyer RN Referral 03/17/2019 Telephone [facility] [address] [facility] [address] [place] [address] Social History Date Tobacco Use [...] Encounter - Lesa Sawyer RN - 03/17/2019 11:24 AM CDT Patient's last pap was 1 year ago. Patient had pap with Dr. Lamonte WHITLOCK in [place], [place]. Patient reports she saw him for the symptoms she was having, she thought she had a yeast infection. She never heard anything from his office so she assumed everything was ok but things are worse. Patient reports that is why she went to the urologist. Patient reports her symptoms are terrible and she fee ls like she is on fire. The patient reports when she opens her labia to clean, i t hurts and mason so much. The patient reports that she has two little splits in the skin. The reports she feels like she needs to be admitted to the hospital b ecause she is so uncomfortable. Patient reports she is desperate to be seen soon er. I notified the patient that I would reach out to Dr. Braswell and his nurse Lizzie gates and see if they can see her sooner Instructed patient to immediately call Dr. Aburto's office and request records be sent immediately. Lesa Sawyer RN Records updated requested in care everywhere. Lesa Sawyer RN Request for patient records from Dr. Aburto's office sent via fax. Lesa camarillo RN documented in this encounter Plan of Treatment Care Team Description Date Type Specialty Ta Duckworth MD [address] [facility] [address] [place] [address] [phone] Overactive bladder 04/20/2019 Hospital Encounter Ta Duckworth MD [address] [facility] [address] [place] [address] [phone] CYSTOURETHROSCOPY WITH INJECTION FOR CHEMODENERVATION OF THE BLADDER (BOTOX 100 UNITS) 04/20/2019 Surgery documented as of this encounter Visit Diagnoses Not on filedocumented in this encounter
--- OUTSIDE RECORDS SUMMARY | 2019-03-30 12:04 | XMS REPORT | Encounter Summary ---
Author Author [facility] Organization [facility] Address Unknown Phone Unavailable Care Team Providers Care Case Managers Name Role Phone Judah Lopez RN Unavailable Unavailable Brett Alcantar MD Unavailable Kumar Diggs MD Unavailable Doctor, Miscellaneous Unavailable Unavailable Barbara Pelaez MD Unavailable Adolfo Cardenas MD PCP Fausto Hsu Unavailable Unavailable Nallely Gomez MD Unavailable Silvano Potts MD Unavailable Sarwat Lozano APRN Unavailable Unavailable Aileen Jacobson MD Unavailable Unavailable Leonid Santos MD Unavailable Unavailable Danitza Rios MA,CCC-BARREL LATHE OPERATOR INSIDE Unavailable Unavailable Gela Cleary RN Unavailable Unavailable Hossein Minaya MD Unavailable Deonna Cunningham RN Unavailable Unavailable Anila Valencia RN Unavailable Unavailable Daniel Bond RN Unavailable Unavailable Yolette Moore MA,CCC-BARREL LATHE OPERATOR INSIDE Unavailable Unavailable Bryan Romero Unavailable Unavailable Nallely Tracy MA,CCC-BARREL LATHE OPERATOR INSIDE Unavailable Unavailable Haresh Kathleen MD Unavailable Teetee Taylor RN Unavailable Unavailable Bonnie Goss RN Unavailable Unavailable Maricel Albrecht MD Unavailable Kiarra Patrick RN Unavailable Unavailable Evelio Chris RN 2 Unavailable Todd Avendano MD Unavailable Tatiana Tim PA-C Unavailable Reason for Visit * Reason Comments Sleep Problem Encounter Details Care Team Description Date Type Department Elmira Zapata Laryngopharyngeal reflux (Primary Dx); Well controlled intermittent asthma 03/03/2019 Office Visit [facility] [address] [place] [id number] Social History Date Tobacco Use Types Packs/Day [...] Signs Reading Time Taken Comments Vital Sign 136/73 03/03/2019 2:24 PM CDT Blood Pressure 72 03/03/2019 2:24 PM CDT Pulse 36.7 C (98.1 F) 03/03/2019 2:24 PM CDT Temperature 16 03/03/2019 2:24 PM CDT Respiratory Rate 92% 03/03/2019 2:24 PM CDT ra Oxygen Saturation - - Inhaled Oxygen Concentration 102.3 kg (225 lb 9.6 oz) 03/03/2019 2:24 PM CDT Weight 167.6 cm (5' 6") 03/03/2019 2:24 PM CDT Height 36.41 03/03/2019 2:24 PM CDT Body Mass Index documented in [...] impairment: No documented as of this encounter Patient Instructions * Patient Instructions* Elmira Zapata - 03/03/2019 2:15 PM CDT We will see you back in a year Please continue with these medication Continue to attempt to lose weight We will give a pneumonia shot now and a booster in a year You call me if you have breathing problems earlier documented in this encounter Progress Notes * Elmira Zapata - 03/03/2019 2:15 PM CDT Date of Service: 03/03/2019 Subjective: Micki Kelley is a 68 y.o. female. History of Present Illness Mrs. Kelley is here for a follow up on her asthma and DE JESUS. Patient was first seen in June 2018 when she presented with shortness of lasha ath, mostly dyspnea on exertion. Patient had a normal spirometry at that time wi th some improvement of her dyspnea with albuterol, she had a CT scan that showed some mosaicism. Patient was started on empiric treatment for asthma with low-dose Breo and she w as referred for a sleep study and a methacholine challenge test. Her sleep study was negative but her methacholine challenge test was positive. Breo didn't help much and we changed her to Symbicort last visit. She feels adriano le better with it. She uses albuterol about 3 times per week. She denies night time awakening but u ses CPAP. She lost some of the weight she gained before and that seems to have the best im pact on her breathing. She had a recent left knee replacement that's she is still recovering from Her GERD is under well control and she didn't see ENT. Review of Systems Constitutional: Negative for activity change, chills, diaphoresis, fatigue, feve r and unexpected weight change. HENT: Negative for congestion, facial swelling, sore throat and trouble swallowi ng. Eyes: Negative for discharge and redness. Respiratory: Positive for shortness of breath and wheezing. Negative for apnea, cough, chest tightness and stridor. Cardiovascular: Negative for chest pain and leg swelling. Gastrointestinal: Negative for abdominal distention, abdominal pain, blood in st ool, diarrhea, nausea and vomiting. Genitourinary: Negative for difficulty urinating, dysuria and flank pain. Musculoskeletal: Positive for arthralgias and joint swelling. Skin: Negative for rash. Allergic/Immunologic: Negative for immunocompromised state. Neurological: Negative for dizziness, syncope and headaches. Hematological: Negative for adenopathy. Does not bruise/bleed easily. Psychiatric/Behavioral: Negative for behavioral problems and confusion. Objective: acyclovir (ZOVIRAX) 200 mg capsule Take 1 Cap by mouth daily. albuterol (PROAIR HFA, VENTOLIN HFA, OR PROVENTIL HFA) 90 mcg/actuation inha ler Inhale two puffs by mouth into the lungs every 6 hours as needed for Wheezin g or Shortness of Breath. Shake well before use. aspirin 325 mg tablet Take 325 mg by mouth daily. Take with food. budesonide/formoterol (SYMBICORT HFA) 160/4.5 mcg inhalation Inhale [...] 1 Tab by mouth at bedtime daily. mirabegron(+) ER (MYRBETRIQ) 50 mg tablet Take [...] mouth at bedtime a s needed. Vitals: 03/03/19 1424 BP: 136/73 Pulse: 72 Resp: 16 Temp: 36.7 C (98.1 F) TempSrc: Oral SpO2: 92% Weight: 102.3 kg (225 lb 9.6 oz) Height: 167.6 cm (66") Body mass index is 36.41 kg/m. Physical Exam Constitutional: She is oriented to person, place, and time. She appears well-dev eloped. No distress. HENT: Head: Normocephalic. Right Ear: [...] distress . She has no wheezes. She has no rales. She exhibits no tenderness. Abdominal: Soft. Bowel sounds are normal. She exhibits no distension. There is n o tenderness. Musculoskeletal: She exhibits no edema. Right knee s/p surgery Lymphadenopathy: She has no cervical adenopathy. Neurological: She is alert and oriented to person, place, and time. Skin: No rash noted. She is not diaphoretic. Psychiatric: She has a normal mood and affect. Her behavior is normal. Assessment and Plan: --Dyspnea on exertion --Well controlled Asthma --Laryngopharngeal reflux --History of vocal cord edema --Chiari malformation Patient's asthma appears to be under well control. No night time symptoms or mike or use of albuterol. She has had no exacerbations recently. She is on Symbicort and albuterol prn. Her last two peripheral AEC were 300. She had no IgE checked before. She still has DE JESUS, I feel it's related in large to her weight. We talked about t hat and she has been limited due to her knee, hopefully once she recovers she wi ll be more active. We have referred her to do MIP/MEP/MVV because of her chiari malformation but sh e didn't go. We can wait on that for now. She reports a pneumococcal vaccine over 5 years ago. We will do PCV-13 today and PPSV-23 in 1 year. - Continue with Symbicort and albuterol combination - PCV13 today and PPSV-23 in 1 year - Continue with PPI bid - Repeating full PFTs in a year to be considered RTC in 1 year Patient was seen and discussed with Dr.Brownback Annie Zapata MD Pulmonary and Critical Care Fellow Pager: [phone] ATTESTATION I personally performed the azul portions of the E/M visit, discussed case with re sident and concur with resident documentation of history, physical exam, assessm ent, and treatment plan unless otherwise noted. Staff name: Paulo Christensen MD Date: 03/04/2019 * Jemma Patel - 03/03/2019 2:15 PM CDT Patient received 0.5mL of PCV13 vaccine given in left arm. Patient tolerated wel l no reactions noted. Consent obtained VIS 03/03/2019. documented in this encounter Plan of Treatment Care Team Description Date Type Specialty Ta Duckworth MD [address] [facility] [address] [place] [address] [phone] Overactive bladder 04/20/2019 Hospital Encounter Ta Duckworth MD [address] [facility] [address] [place] [address] [phone] CYSTOURETHROSCOPY WITH INJECTION FOR CHEMODENERVATION OF THE BLADDER (BOTOX 100 UNITS) 04/20/2019 Surgery documented as of this encounter Visit Diagnoses Diagnosis Laryngopharyngeal reflux - Primary Other diseases of larynx Well controlled intermittent asthma Unspecified asthma documented in this encounter
--- OUTSIDE RECORDS SUMMARY | 2019-03-30 12:04 | XMS REPORT | Encounter Summary ---
Author Author [facility] Organization [facility] Address Unknown Phone Unavailable Care Team Providers Care Cleaning Professional Name Role Phone Judah Lopez RN Unavailable Unavailable Brett Alcantar MD Unavailable Kumar Diggs MD Unavailable Doctor, Miscellaneous Unavailable Unavailable Barbara Pelaez MD Unavailable Adolfo Cardenas MD PCP Fausto Hsu Unavailable Unavailable Nallely Gomez MD Unavailable Silvano Potts MD Unavailable Sarwat Lozano APRN Unavailable Unavailable Aileen Jacobson MD Unavailable Unavailable Leonid Santos MD Unavailable Unavailable Danitza Rios MA,CCC-PURCHASING AGENT Unavailable Unavailable Gela Cleary RN Unavailable Unavailable Hossein Minaya MD Unavailable Deonna Cunningham RN Unavailable Unavailable Anila Valencia RN Unavailable Unavailable Daniel Bond RN Unavailable Unavailable Yolette Moore MA,CCC-PURCHASING AGENT Unavailable Unavailable Bryan Romero Unavailable Unavailable Nallely Tracy MA,CCC-PURCHASING AGENT Unavailable Unavailable Haresh Kathleen MD Unavailable Teetee Taylor RN Unavailable Unavailable Bonnie Goss RN Unavailable Unavailable Maricel Albrecht MD Unavailable Kiarra Patrick RN Unavailable Unavailable Evelio Chris RN 2 Unavailable Todd Avendano MD Unavailable Tatiana Tim PA-C Unavailable Reason for Visit * Reason Comments Appointment Encounter Details Care Team Description Date Type Department Lesa Sawyer RN Appointment 03/17/2019 Telephone [facility] [address] [facility] [address] [place] [address] Social History Date Tobacco Use [...] Encounter - Lesa Sawyer RN - 03/17/2019 4:12 PM CDT Patient returned call. Offered patient appointment 03/18/[address] Braswell at 1pm. Patient aware that appointment is an add on to Dr. Braswell's clinic. Patient repor ts that Dr. Aburto's office will only release records if patient signs a form at their office. Patient lives far away from their office. Patient does not have a fax machine or printer access. Instructed patient to call their office and a sk them to get her records ready and ask for a call back number and a fax number . Instructed patient to come early and that we would have her fill out a form an d then I would fax and call them and we can get her records FRANNIE. Dr. Aburto's office sent me patient's mamograms. Sent fax request for [facility] records. Lesa chaparro, RN documented in this encounter Plan of Treatment Care Team Description Date Type Specialty aT Duckworth MD [address] [facility] [address] [place] [address] [phone] Overactive bladder 04/20/2019 Hospital Encounter Ta Duckworth MD [address] [facility] [address] [place] [address] [phone] CYSTOURETHROSCOPY WITH INJECTION FOR CHEMODENERVATION OF THE BLADDER (BOTOX 100 UNITS) 04/20/2019 Surgery documented as of this encounter Visit Diagnoses Not on filedocumented in this encounter
--- OUTSIDE RECORDS SUMMARY | 2019-03-30 12:04 | XMS REPORT | Encounter Summary ---
Author Author [facility] Organization [facility] Address Unknown Phone Unavailable Care Team Providers Care Risk Tech Name Role Phone Judah Lopez RN Unavailable Unavailable Brett Alcantar MD Unavailable Kumar Diggs MD Unavailable Doctor, Miscellaneous Unavailable Unavailable Barbara Pelaez MD Unavailable Adolfo Cardenas MD PCP Fausto Hsu Unavailable Unavailable Nallely Gomez MD Unavailable Silvano Potts MD Unavailable Sarwat Lozano APRN Unavailable Unavailable Aileen Jacobson MD Unavailable Unavailable Leonid Santos MD Unavailable Unavailable Danitza Rios MA,CCC-GOLD AND SILVER ASSAYER Unavailable Unavailable Gela Cleary RN Unavailable Unavailable Hossein Minaya MD Unavailable Deonna Cunningham RN Unavailable Unavailable Anila Valencia RN Unavailable Unavailable Daniel Bond RN Unavailable Unavailable Yolette Moore MA,CCC-GOLD AND SILVER ASSAYER Unavailable Unavailable Bryan Romero Unavailable Unavailable Nallely Tracy MA,CCC-GOLD AND SILVER ASSAYER Unavailable Unavailable Haresh Kathleen MD Unavailable Teetee Taylor RN Unavailable Unavailable Bonnie Goss RN Unavailable Unavailable Maricel Albrecht MD Unavailable Kiarra Patrick RN Unavailable Unavailable Evelio Chris RN 2 Unavailable Todd Avendano MD Unavailable Tatiana Tim PA-C Unavailable Encounter Details Care Team Description Date Type Department Tyrell Braswell MD [address] [facility] [address] [place], [place] [id number] 03/18/2019 Orders Only [facility] [address] [place] [address] Social History Date Tobacco Use [...] Date Type Specialty Ta Duckworth MD [address] [facility] [address] [place], [place] [id number] Overactive bladder 04/20/2019 Hospital Encounter Ta Duckworth MD [address] [facility] [address] [place], [place] [id number] CYSTOURETHROSCOPY WITH INJECTION FOR CHEMODENERVATION OF THE BLADDER (BOTOX 100 UNITS) 04/20/2019 Surgery documented as of this encounter Visit Diagnoses Not on filedocumented in this encounter
--- OUTSIDE RECORDS SUMMARY | 2019-03-30 12:04 | XMS REPORT | Encounter Summary ---
Author Author [facility] Organization [facility] Address Unknown Phone Unavailable Care Team Providers Care Drum Reel Cutter Name Role Phone Judah Lopez RN Unavailable Unavailable Brett Alcantar MD Unavailable Kumar Diggs MD Unavailable Doctor, Miscellaneous Unavailable Unavailable Barbara Pelaez MD Unavailable Adolfo Cardenas MD PCP Fausto Hsu Unavailable Unavailable Nallely Gomez MD Unavailable Silvano Potts MD Unavailable Sarwat Lozano APRN Unavailable Unavailable Aileen Jacobson MD Unavailable Unavailable Leonid Santos MD Unavailable Unavailable Danitza Rios MA,CCC-ANIMAL PATHOLOGIST Unavailable Unavailable Gela Cleary RN Unavailable Unavailable Hossein Minaya MD Unavailable Deonna Cunningham RN Unavailable Unavailable Anila Valencia RN Unavailable Unavailable Daniel Bond RN Unavailable Unavailable Yolette Moore MA,CCC-ANIMAL PATHOLOGIST Unavailable Unavailable Bryan Romero Unavailable Unavailable Nallely Tracy MA,CCC-ANIMAL PATHOLOGIST Unavailable Unavailable Haresh Kathleen MD Unavailable Teetee Taylor RN Unavailable Unavailable Bonnie Goss RN Unavailable Unavailable Maricel Albrecht MD Unavailable Kiarra Patrick RN Unavailable Unavailable Evelio Chris RN 2 Unavailable Todd Avendano MD Unavailable Tatiana Tim PA-C Unavailable Reason for Referral * Consult, Test & Treat (Routine) Referred By Contact Referred To Contact Status Reason Specialty Diagnoses / Procedures Surekha Winters MD [address] Ortho[facility] [address] [place] [address] [facility] Telegraphic Instrument Supervisor Cl [address] [place] [address] No Auth Needed Specialty Services Obstetrics & Diagnoses Required Gynecology Chronic vaginitis * Consult, Test & Treat (Routine) Referred By Contact Referred To Contact Status Reason Specialty Diagnoses / Procedures Surekha Winters MD [address] Orth[facility] [address] [place] [address] [facility] Im Dermatology Cl [address] [place] [address] Closed Specialty Services Dermatology Diagnoses Required Chronic vaginitis lichen sclerosis-medicare Reason for Visit * Reason Comments Other Incomplete bladder emptying Encounter Details Care Team Description Date Type Department Surekha Winters MD [address] Ortho[facility] [address] [place] [address] [phone] Chronic vaginitis (Primary Dx); Vaginal atrophy; Incomplete bladder emptying; Urge incontinence 03/15/2019 Office Visit [facility] [address] [place] [address] Social History Date Tobacco Use Types Packs/Day [...] Signs Reading Time Taken Comments Vital Sign 141/56 03/15/2019 10:58 AM CDT Blood Pressure 71 03/15/2019 10:58 AM CDT Pulse - - Temperature - - Respiratory Rate - - Oxygen Saturation - - Inhaled Oxygen Concentration 103 kg (227 lb) 03/15/2019 10:58 AM CDT Weight 167.6 cm (5' 6") 03/15/2019 10:58 AM CDT Height 36.64 03/15/2019 10:58 AM CDT Body Mass Index documented in this [...] this encounter Patient Instructions * Patient Instructions* Ravinder Gordon PA-C - 03/15/2019 10:45 AM CDT Continue Imvexxy Recommend A&D ointment to labia (avoid applying inside the vagina) Lichen Sclerosis [facility] Pre-Operative Instructions Surgical Procedure: Botox 100 units Date of Surgery: unknown Arrival Time at the Admission Office (Main Lobby): unknown To ensure that your surgery can proceed without delay, you will be contacted by a phone triage nurse from the Preoperative Assessment Clinic (PAC) to complete t his process. Please review the information given to you by your surgeon. You will be called by the surgery staff with your day of surgery arrival time be tween 2:30 - 4:30 PM the business day prior to surgery. If you have not heard fr om them after 4:30 PM, please call to confirm your arrival time. Pre-Operative Assessment and Instructions: Once you speak to the nurse or are seen in the Pre-Operative Assessment Clinic, you will be given medication instructions. However, if surgery is within 2 weeks , please read and follow the medication instructions below to prepare for surger y before you speak with the phone triage nurse: DO NOT STOP your blood thinner until you have contacted your prescribing provide r or have been specifically instructed to do so. Starting Now: ? Contact your provider who prescribes any of the following to develop a plan fo r surgery: o Blood thinners such as aspirin, Aggrenox, Brilinta, Effient, Eliquis, enoxapar in (Lovenox), clopidogrel (Plavix), cilostazol, pentoxifylline (Trental), Pradax a, Savaysa, ticlopidine, Xarelto, and warfarin (Coumadin) o Immunosuppresants such as methotrexate, azathioprine, sulfasalazine, everolimu s, sirolimus, Humira, Remicade, Enbrel, Simponi, Orencia, Cimzia, Actemra, and X eljanz o Chemotherapy 14 days prior to surgery: ? Stop most vitamins, herbals, and supplements including (but not limited to): o Alpha lipoic acid, black cohosh, CoQ10, echinacea, eye vitamins, fish oil, fla xseed oil, garlic, gingko biloba, ginseng, glucosamine/chondroitin, kava, Lovaza , lutein, lysine, multivitamin, red yeast rice, GLORIA-e, saw palmetto, [place] s wort, turmeric, valerian root, Vascepa, Vitamin A, Vitamin B complex, Vitamin C, Vitamin E ? You DO NOT need to stop: iron, magnesium, potassium 7 days prior to surgery: ? Stop anti-inflammatory medications such as ibuprofen (Advil, Motrin), naproxen (Aleve), [facility] [facility], Excedrin, Midol, celecoxib (Celebrex), diclofenac (Ko Olina chantal), diflunisal, etodolac, flurbiprofen, indomethacin, ketoprofen, ketorolac, m eloxicam, nabumetone, and piroxicam Do not drink alcohol within 24 hours of surgery. Please do not eat or drink anything after midnight. No gum, mints, hard candy, snacks, coffee, etc or chewing tobacco allowed after midnight before surgery. Y ou may brush your teeth but be sure to rinse and spit. Please shower with an over the counter antibacterial soap the evening before or the morning of surgery. If your surgery is scheduled as an outpatient, you must arrange to have someone drive you home and have someone with you 24 hours after anesthesia. If you have any questions, please contact your provider's office at [phone] . For emergencies during evenings, nights, weekends, and holidays, contact [facility] semiconductor wafers saw operator and request they contact the on-call Urology Resident at [phone]. documented in this encounter Progress Notes * Surekha Winters MD - 03/15/2019 10:45 AM CDT Date of Service: 03/15/2019 Subjective: Micki Kelley is a 68 y.o. female, here for follow up Chief Complaint Patient presents with Other Incomplete bladder emptying History of Present Illness Micki Kelley is a 68 y.o. Female, PMhx of DM x 5 years, Diverticulitis, HTN , thyroid disorder, Chiari Malformation - neurosurgery 2003, multiple abdominal surgeries with severe adhesions. She was referred, 05/05/17, by her PMD for evaluation of increased difficulty uri nating. She reports increased difficulty urinating and incomplete emptying 6 months. She reports occasionally straining to urinate, voiding every 2 hours, nocturia 2. She reports urethral irritation. Recurrent urinary tract infection 2 over the last year. She reports urgency, u rge incontinence and stress urinary incontinence. Primarily stress urinary inc ontinence is bothersome. Wearing 1 pad daily. Bowel movements-chronic constipation requiring enemas, Ex-Lax, MiraLAX just to h ave a bowel movement every week. Was using Vesicare 10 mg for 3 years yet no longer helps with nocturia. 07/24/17 UDS which revealed sensory urgency, +DO, +LPP, small capacity, emptying and dysfunctional voiding. Based on this she was started on PFRT and mirabegron. Completed PFPT. Last office visit, 11/24/17, recovering from salmonella, discontinued Myrbetriq 2017 felt like it was not working, plan restart Myrbetriq, continue PFPT techniq ues, FU as needed. She presents today, with her , for follow up and persistent urinary incon tinence, #1 urge, occasional large accidents and unaware incontinence, denies PEREZ I. Wearing Depends 1/day. She reports a good stream, voiding every hour, noctu mj x 4, denies nocturnal enuresis. Currently taking oxybutynin 10mg XL, insuran ce did not cover Myrbetriq. She reports dry mouth. She also reports increased vaginal burning, itching and irritation. She denies diagnosis of lichen sclerosis. She is using Imvexxy vaginal estrogen suppositor ies. BM frequent loose stools, occasional constipation. Intake water x 100oz, diet d r pepper x 1, coffee x 1. Recent right knee replacement, reports treated for UTI, had a gurrola with surgery , denies urinary retention or learning CIC. Reports most recent HgbA1c around 7.2. Reports previous botox injections for her stomach, none recently, denies previou s bladder botox injections. 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 03/15/19 PVR 68cc Review of Systems Constitutional: Negative for activity change, appetite change, chills, diaphores is, fatigue, fever and unexpected weight change. HENT: Negative for congestion, hearing loss, mouth sores and sinus pressure. Eyes: Negative for visual disturbance. Respiratory: Negative for apnea, cough, chest tightness and shortness of breath. Cardiovascular: Negative for chest pain, palpitations and leg swelling. Gastrointestinal: Negative for abdominal pain, anal bleeding, blood in stool, co nstipation, diarrhea, nausea, rectal pain and vomiting. Genitourinary: See HPI Musculoskeletal: Negative for arthralgias, back pain, gait problem and myalgias. Skin: Negative for rash and wound. Neurological: Negative for dizziness, tremors, seizures, syncope, weakness, ligh t-headedness, numbness and headaches. Hematological: Negative for adenopathy. Does not bruise/bleed easily. Psychiatric/Behavioral: Negative for decreased concentration and dysphoric mood. The patient is not nervous/anxious. Objective: acyclovir (ZOVIRAX) 200 mg capsule Take [...] mouth at bedtime a s needed. Vitals: 03/15/19 1058 BP: 141/56 Pulse: 71 Weight: 103 kg (227 lb) Height: 167.6 cm (66") Body mass index is 36.64 kg/m. Physical Exam Constitutional: She is oriented to person, place, and time. She appears well-dev eloped and well-nourished. HENT: Head: Normocephalic. Eyes: Conjunctivae are normal. Neck: Normal range of motion. Cardiovascular: Normal rate. Pulmonary/Chest: Effort normal. Abdominal: Soft. Genitourinary: Genitourinary Comments: Dr Winters did pelvic exam Sensation normal Reflex intact Hypermobility none Leak negative Prolapse - well supported Estrogen status severe atrophy Vaginal erythema, excoriated labia Levator tone normal Musculoskeletal: Normal range of motion. Neurological: She is alert and oriented to person, place, and time. Skin: Skin is warm and dry. Psychiatric: She has a normal mood and affect. Recent Available labs: Comprehensive Metabolic Profile Lab Results Component Value Date/Time NA 139 10/26/2017 08:05 PM K 4.0 10/26/2017 08:05 PM CL 105 10/26/2017 08:05 PM CO2 22 10/26/2017 08:05 PM GAP 12 10/26/2017 08:05 PM BUN 16 10/26/2017 08:05 PM CR 0.71 10/26/2017 08:05 PM GLU 136 (H) 10/26/2017 08:05 PM Lab Results Component Value Date/Time CA 9.3 10/26/2017 08:05 PM PO4 3.9 11/26/2013 03:10 AM ALBUMIN 3.6 10/26/2017 08:05 PM TOTPROT 6.3 10/26/2017 08:05 PM ALKPHOS 80 10/26/2017 08:05 PM AST 22 10/26/2017 08:05 PM ALT 24 10/26/2017 08:05 PM TOTBILI 0.5 10/26/2017 08:05 PM GFR >60 10/26/2017 08:05 PM GFRAA >60 10/26/2017 08:05 PM Urine Lab Results Component Value Date/Time UCOLOR STRAW 10/26/2017 07:00 PM TURBID CLEAR 10/26/2017 07:00 PM USPGR 1.010 10/26/2017 07:00 PM UPH 5.0 10/26/2017 07:00 PM UPROTEIN NEG 10/26/2017 07:00 PM UAGLU NEG 10/26/2017 07:00 PM UKET NEG 10/26/2017 07:00 PM UBILE NEG 10/26/2017 07:00 PM UBLD NEG 10/26/2017 07:00 PM UROB NORMAL 10/26/2017 07:00 PM Lab Results Component Value Date/Time UNIT NEG 10/26/2017 07:00 PM ULEU NEG 10/26/2017 07:00 PM UWBC 0-2 10/26/2017 07:00 PM URBC 0-2 10/26/2017 07:00 PM Culture Date Value Ref Range Status 11/30/2012 NO GROWTH Final Reviewed outside labs: 11/30/18 Cr 0.7 11/30/18 UA negative Recent Imaging: No abdominal or pelvic imaging for review Assessment and Plan: Problem Urge Incontinence Initial consult 05/05/17 07/24/17 UDS which revealed sensory urgency, +DO, +LPP, small capacity, emptying and dysfunctional voiding. Based on this she was started on PFRT and mirabegron. Completed PFPT Previous trial: vesicare 10mg x 3 years 03/15/19: Depends 1/day, occasional large accidents, and unaware incontinence, no LEDY, taking oxybutynin 10mg XL, Myrbetriq was not covered Incomplete Bladder Emptying - Increased difficulty voiding and feeling inc emptying - Voids q2h - urgency, MACIEL UDS (07/14/17): sensory urgency, +DO, +LPP, small capacity, emptying and dysfunc tional voiding Mirabegron, PFRT-> almost all symptoms resolved 03/15/19: PVR 68cc, on oxybutynin 10mg XL Vaginal Atrophy Vaginal atrophy Continue Imvexxy Recommend A&D ointment to external vaginal tissue, reviewed avoid internal application Recommend Dermatology and/or gynecology evaluation ~ possible lichen sclerosis Incomplete bladder emptying See above Urge incontinence See above Continue oxybutynin 10mg XL Discussed options continued medication, PTNS, bladder botox, Interstim (note Berto rosurgery history) She is interested in pursuing with bladder botox injection, plan low dose, 100 u nits to start, reviewed risk of urinary retention or incomplete emptying requiri ng CIC, will arrange with Dr Duckworth (since Dr Winters is leaving [facility] and [facility] practice to [place]), she is okay with meeting Dr Duckworth the day of [facility]. Prep for case entered, no date ~ note to Marisela Andrade Placed This Encounter DERMATOLOGY GYNECOLOGY Ravinder Gordon PA-C Urology Dr Winters also met with patient and determined plan of care Will send letter to PMD - Adolfo Cardenas ATTESTATION I personally performed the azul portions of the E/M visit, discussed case with re sident and concur with resident documentation of history, physical exam, assessm ent, and treatment plan unless otherwise noted. Staff name: Surekha Winters MD * Chanell Pate LPN - 03/15/2019 10:45 AM CDT pvr=68 documented in this encounter Plan of Treatment Care Team Description Date Type Specialty Ta Duckworth MD [address] [facility] [place] [address] [phone] Overactive bladder 04/20/2019 Hospital Encounter Ta Duckworth MD [address] [facility] [address] [place] [address] [phone] CYSTOURETHROSCOPY WITH INJECTION FOR CHEMODENERVATION OF THE BLADDER (BOTOX 100 UNITS) 04/20/2019 Surgery Order Schedule Name Type Priority Associated Diagnoses Ordered: 03/15/2019 AMB REFERRAL TO Outpatient Routine Chronic vaginitis DERMATOLOGY Referral Ordered: 03/15/2019 AMB REFERRAL TO Outpatient Routine Chronic vaginitis GYNECOLOGY Referral documented as of this encounter Visit Diagnoses Diagnosis Chronic vaginitis - Primary Vaginitis and vulvovaginitis, unspecified Vaginal atrophy Postmenopausal atrophic vaginitis Incomplete bladder emptying Urge incontinence * Assessment & Plan Note - Ravinder Gordon PA-C - 03/15/2019 2:50 PM CDT Associated Problem(s): Urge incontinence See above Continue oxybutynin 10mg XL Discussed options continued medication, PTNS, bladder botox, Interstim (note Berto rosurgery history) She is interested in pursuing with bladder botox injection, plan low dose, 100 u nits to start, reviewed risk of urinary retention or incomplete emptying requiri ng CIC, will arrange with Dr Duckworth (since Dr Winters is leaving and [facility] practice to [place]), she is okay with meeting Dr Duckworth the day of [facility]. Prep for case entered, no date ~ note to Marisela * Assessment & Plan Note - Ravinder Gordon PA-C - 03/15/2019 2:47 PM CDT Associated Problem(s): Incomplete bladder emptying See above * Assessment & Plan Note - Ravinder Gordon PA-C - 03/15/2019 2:46 PM CDT Associated Problem(s): Vaginal atrophy Continue Imvexxy Recommend A&D ointment to external vaginal tissue, reviewed avoid internal application Recommend Dermatology and/or gynecology evaluation ~ possible lichen sclerosis documented in this encounter
--- OUTSIDE RECORDS SUMMARY | 2019-03-30 12:04 | XMS REPORT | Encounter Summary ---
Author Author [facility] Organization [facility] Address Unknown Phone Unavailable Care Team Providers Care Machine Fitter Name Role Phone Judah Lopez RN Unavailable Unavailable Brett Alcantar MD Unavailable Kumar Diggs MD Unavailable Doctor, Miscellaneous Unavailable Unavailable Barbara Pelaez MD Unavailable Adolfo Cardenas MD PCP Fausto Hsu Unavailable Unavailable Nallely Gomez MD Unavailable Silvano Potts MD Unavailable Sarwat Lozano APRN Unavailable Unavailable Aileen Jacobson MD Unavailable Unavailable Leonid Santos MD Unavailable Unavailable Danitza Rios MA,CCC-ENDOSCOPE TECHNICIAN Unavailable Unavailable Gela Cleary RN Unavailable Unavailable Hossein Minaya MD Unavailable Deonna Cunningham RN Unavailable Unavailable Anila Valencia RN Unavailable Unavailable Daniel Bond RN Unavailable Unavailable Yolette Moore MA,CCC-ENDOSCOPE TECHNICIAN Unavailable Unavailable Bryan Romero Unavailable Unavailable Nallely Tracy MA,CCC-ENDOSCOPE TECHNICIAN Unavailable Unavailable Haresh Kathleen MD Unavailable Teetee Taylor RN Unavailable Unavailable Bonnie Goss RN Unavailable Unavailable Maricel Albrecht MD Unavailable Kiarra Patrick RN Unavailable Unavailable Evelio Chris RN 2 Unavailable Todd Avendano MD Unavailable Tatiana Tim PA-C Unavailable Encounter Details Care Team Description Date Type Department Surekha Winters MD [address] Ortho/Med [facility] [address] [place], [place] [id number] Overactive bladder (Primary Dx) 03/15/2019 Prep for Case The [facility] [address] [place] [address] Social History Date Tobacco Use [...] Date Type Specialty Ta Duckworth MD [address] Orth[facility] [address] [place], [place] [id number] Overactive bladder 04/20/2019 Hospital Encounter Ta Duckworth MD [address] Orth[facility] [address] [place], [place] [id number] CYSTOURETHROSCOPY WITH INJECTION FOR CHEMODENERVATION OF THE BLADDER (BOTOX 100 UNITS) 04/20/2019 Surgery documented as of this encounter Visit Diagnoses Diagnosis Overactive bladder - Primary Hypertonicity of bladder documented in this encounter
--- OUTSIDE RECORDS SUMMARY | 2019-03-30 12:05 | XMS REPORT | Encounter Summary ---
Author Author [facility] Organization [facility] Address Unknown Phone Unavailable Care Team Providers Care Case Investigator Name Role Phone Judah Lopez RN Unavailable Unavailable Brett Alcantar MD Unavailable Kumar Diggs MD Unavailable Doctor, Miscellaneous Unavailable Unavailable Barbara Pelaez MD Unavailable Adolfo Cardenas MD PCP Fausto Hsu Unavailable Unavailable Nallely Gomez MD Unavailable Silvano Potts MD Unavailable Sarwat Lozano APRN Unavailable Unavailable Aileen Jacobson MD Unavailable Unavailable Leonid Santos MD Unavailable Unavailable Danitza Riso MA,CCC-GALVANOMETER ASSEMBLER Unavailable Unavailable Gela Cleary RN Unavailable Unavailable Hossein Minaya MD Unavailable Deonna Cunningham RN Unavailable Unavailable Anila Valencia RN Unavailable Unavailable Daniel Bond RN Unavailable Unavailable Yolette Moore MA,CCC-GALVANOMETER ASSEMBLER Unavailable Unavailable Bryan Romero Unavailable Unavailable Nallely Tracy MA,CCC-GALVANOMETER ASSEMBLER Unavailable Unavailable Haresh Kathleen MD Unavailable Teetee Taylor RN Unavailable Unavailable Bonnie Goss RN Unavailable Unavailable Maricel Albrecht MD Unavailable Kiarra Patrick RN Unavailable Unavailable Evelio Chris RN 2 Unavailable Todd Avendano MD Unavailable Tatiana Tim PA-C Unavailable Reason for Visit * Reason Comments Results Encounter Details Care Team Description Date Type Department Shereen Horowitz ARNP [address] [facility] Ortho/Med Pav[address] [place] [address] Results 12/11/2018 Telephone [facility] [address] [place] [address] Social History Date Tobacco Use [...] encounter Miscellaneous Notes * Telephone Encounter - Kym Ng LPN - 12/14/2018 9:18 AM CDT Spoke to pt. Relayed results; pt verbalized understanding with no further questi ons at this time. Faxed results to pt PCP per pt request. * Telephone Encounter - Elena Cedillo LPN - 12/11/2018 10:02 AM CDT Attempted to call pt twice regarding below. Pt does not have a VM set up and [facility]'s VM is also not set up. ----- Message from DANIEL Joya sent at 12/11/2018 8:49 AM CDT ----- Call pt and let her know repeat C. diff is negative. documented in this encounter Plan of Treatment Care Team Description Date Type Specialty Ta Duckworth MD [address] [facility] [place] [address] [phone] Overactive bladder 04/20/2019 Hospital Encounter Ta Duckworth MD [address] [facility] [place] [address] [phone] CYSTOURETHROSCOPY WITH INJECTION FOR CHEMODENERVATION OF THE BLADDER (BOTOX 100 UNITS) 04/20/2019 Surgery documented as of this encounter Visit Diagnoses Not on filedocumented in this encounter
--- OUTSIDE RECORDS SUMMARY | 2019-03-30 12:05 | XMS REPORT | Encounter Summary ---
Author Author [facility] Organization [facility] Address Unknown Phone Unavailable Care Team Providers Care Muffler Hand Name Role Phone Judah Lopez RN Unavailable Unavailable Brett Alcantar MD Unavailable Kumar Diggs MD Unavailable Doctor, Miscellaneous Unavailable Unavailable Barbara Pelaez MD Unavailable Adolfo Cardenas MD PCP Fausto Hsu Unavailable Unavailable Nallely Gomez MD Unavailable Silvano Potts MD Unavailable Sarwat Lozano APRN Unavailable Unavailable Aileen Jacobson MD Unavailable Unavailable Leonid Santos MD Unavailable Unavailable Danitza Rios MA,CCC-SUPPLY REQUIREMENTS OFFICER Unavailable Unavailable Gela Cleary RN Unavailable Unavailable Hossein Minaya MD Unavailable Deonna Cunningham RN Unavailable Unavailable Anila Valencia RN Unavailable Unavailable Daniel Bond RN Unavailable Unavailable Yolette Moore MA,CCC-SUPPLY REQUIREMENTS OFFICER Unavailable Unavailable Bryan Romero Unavailable Unavailable Nallely Tracy MA,CCC-SUPPLY REQUIREMENTS OFFICER Unavailable Unavailable Haresh Kathleen MD Unavailable Teetee Taylor RN Unavailable Unavailable Bonnie Goss RN Unavailable Unavailable Maricel Albrecht MD Unavailable Kiarra Patrick RN Unavailable Unavailable Evelio Chris RN 2 Unavailable Todd Avendano MD Unavailable Tatiana Tim PA-C Unavailable Reason for Referral * Consult, Test & Treat (Routine) Referred By Contact Referred To Contact Status Reason Specialty Diagnoses / Procedures Paulo Christensen MD [address] [facility] [address] [place] [address] Pulmonary Function [address] [place] [id number] Closed Specialty Services Diagnoses Required Shortness of breath * Consult, Test & Treat (Routine) Referred By Contact Referred To Contact Status Reason Specialty Diagnoses / Procedures Paulo Christensen MD [address] [facility] [address] [facility] Ent [address] [place] [address] Closed Specialty Services Otolaryngology Diagnoses Required Shortness of breath Reason for Visit * Reason Comments Shortness of Breath Encounter Details Care Team Description Date Type Department Elmira Zapata Shortness of breath (Primary Dx) 10/28/2018 Office Visit [facility] [address] [place] [address] Social History Date Tobacco Use [...] Signs Reading Time Taken Comments Vital Sign 146/74 10/28/2018 2:29 PM GRANULATOR OPERATOR Blood Pressure 73 10/28/2018 2:29 PM GRANULATOR OPERATOR Pulse 36.7 C (98 F) 10/28/2018 2:29 PM GRANULATOR OPERATOR Temperature 16 10/28/2018 2:29 PM GRANULATOR OPERATOR Respiratory Rate 96% 10/28/2018 2:29 PM GRANULATOR OPERATOR ra Oxygen Saturation - - Inhaled Oxygen Concentration 106.6 kg (235 lb) 10/28/2018 2:29 PM GRANULATOR OPERATOR Weight 167.6 cm (5' 6") 10/28/2018 2:29 PM GRANULATOR OPERATOR Height 37.93 10/28/2018 2:29 PM GRANULATOR OPERATOR Body Mass Index documented in this encounter [...] Instructions * Patient Instructions* Elmira Zapata - 10/28/2018 2:30 PM GRANULATOR OPERATOR We are going to change your inhaler to Symbicort We will send you for another breathing test We will have a new evaluation for ENT doctor Take protonix twice a day ULATOR OPERATOR documented in this encounter Progress Notes * Elmira Zapata - 10/28/2018 2:30 PM GRANULATOR OPERATOR Date of Service: 10/28/2018 Subjective: Micki Kelley is a 68 y.o. female. History of Present Illness Mrs. Lane is a 68-year-old female who is here for follow-up on her shortness of breath. Patient was first seen in June 2018 when she presented with shor tness of breath, mostly dyspnea on exertion. Patient had a normal spirometry at that time with some improvement of her dyspne a with albuterol, she had a CT scan that showed some mosaicism. Patient was started on empiric treatment for asthma with low-dose Breo and she w as referred for a sleep study and a methacholine challenge test. Her sleep study was negative but her methacholine challenge test was positive. She has been using his Breo a few times a day without any improvement. She continues to be short of breath with exertion, no major cough runny nose, al lergies, night sweats. However she has gained about 25 pounds over the last 6 m [facility] Patient was on a vacation recently and she came back with a rash, she had about 10 days of prednisone for that rash and did not feel any difference in regards t o her breathing while on prednisone. Review of Systems Constitutional: Positive for activity change. Negative for chills and fever. Weight gain HENT: Positive for voice change. Negative for congestion, drooling, postnasal dr ip, sneezing and sore throat. Respiratory: Positive for shortness of breath and wheezing. Negative for cough a nd chest tightness. Cardiovascular: Negative for chest pain, palpitations and leg swelling. Gastrointestinal: Negative for abdominal pain, diarrhea and nausea. Genitourinary: Negative for dysuria. Musculoskeletal: Negative for joint swelling and myalgias. Skin: Positive for rash (resolved). Neurological: Negative for dizziness, seizures, syncope and headaches. Psychiatric/Behavioral: The patient is nervous/anxious. Objective: acyclovir (ZOVIRAX) 200 mg capsule [...] area three times weekly. Apply at bedtime. fluticasone-vilanterol(+) (BREO ELLIPTA) 100-25 mcg inhalation disk Inhale o ne puff by mouth into the lungs daily. gabapentin (NEURONTIN) 600 mg tablet Take 600 mg by mouth daily. magnesium marcella/aluminum hydroxide(+) (GAVISCON) 20/80 mg chew Take 1 Tab by mouth at bedtime daily. metFORMIN (GLUCOPHAGE) 500 mg tablet Take 1 Tab by mouth twice daily with me als. (Patient taking differently: Take 1,000 mg by mouth twice daily with meals. ) mirabegron(+) ER (MYRBETRIQ) 50 mg tablet Take 1 tablet by mouth daily. ondansetron (ZOFRAN) 4 mg tablet Take 4 mg by mouth every 8 hours as needed for Nausea or Vomiting. pantoprazole DR (PROTONIX) 40 mg tablet Take 1 tablet by mouth daily. pramipexole (MIRAPEX) 0.125 mg tablet Take 1 Tab by mouth twice daily. (Mariel ent taking differently: Take 1 mg by mouth twice daily.) simvastatin (ZOCOR) 40 mg tablet Take 40 mg by mouth at bedtime daily. zolpidem CR(+) (AMBIEN CR) 12.5 mg tablet Take 12.5 mg by mouth at bedtime a s needed. There were no vitals filed for this visit. There is no height or weight on file to calculate BMI. Physical Exam Constitutional: She is oriented to person, place, and time. She appears well-dev eloped and well-nourished. HENT: Head: Normocephalic and atraumatic. Right Ear: External ear normal. Left Ear: External ear normal. Oropharynx with erythema but no exudate Eyes: Conjunctivae and EOM are normal. Neck: Normal range of motion. Neck supple. Cardiovascular: Normal rate, regular rhythm and normal heart sounds. No murmur heard. Pulmonary/Chest: Effort normal and breath sounds normal. No respiratory distress . She has no wheezes. She has no rales. She exhibits no tenderness. Abdominal: Soft. Bowel sounds are normal. Musculoskeletal: She exhibits no edema. Lymphadenopathy: She has no cervical adenopathy. Neurological: She is alert and oriented to person, place, and time. Skin: Skin is warm. No rash noted. No erythema. 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 She was started on Breo and was sent for a methacholine challenge that was posit jen. High-resolution CT of the chest did not show any evidence of ILD but showe d some mosaicism/air trapping on expiratory images. Complete PFTs were mostly normal except for mildly reduced FVC. Patient showed no improvement with Breo, she is still reporting improvement with albuterol nebulizer though. She had 10 days worth of prednisone(taken for a rash) that did not seem to affec t her breathing at all. For now, I would change her Breo to Symbicort and monitor the response. I am st ill not entirely sure if all of the substantial DE JESUS she is describing could be a ttributed to what appears to be a mild asthma. Hence , I'm still holding on [facility] IgE level. She continues with hoarseness and voice change, still has uncontrolled GERD. I w onder if vocal cord dysfunction is contributing to her symptoms as well. We will refer to ENT to re-evaluation and I increased her PPI to BID. In addition, patient had chiari malformation repair in 2003, she was supposed to see neurology recently but could not make it to the appointment. Wondering if there is some component of neuromuscular weakness especially with her low FVC an d normal TLC. She feels better and less SOB with CPAP at home. She would benefit from MIP/MEP/MVV to evaluate for a component of neuromuscular weakness. Eventually, patient has gained about 25lbs last 6 months that would not help her breathing, I discussed this with her in details. Summary: -Change Breo to Symbicort -Referral to ENT -Increase PPI to twice daily -Obtain MIP/MEP/MVV -She has a referral to neurology by PCP already -Attempt weight loss -Will discuss pneumococcal vaccination on next visit -If negative MIP/MEP/MVV and still no improvement, I may refer to CPET RTC in 3 months Patient was seen and discussed with Dr.Brownback Annie Zapata MD Pulmonary and Critical Care Fellow Pager: [phone] ATTESTATION I personally performed the azul portions of the E/M visit, discussed case with re sident and concur with resident documentation of history, physical exam, assessm ent, and treatment plan unless otherwise noted. Staff name: Paulo Christensen MD Date: 10/28/2018 ULATOR OPERATOR documented in this encounter Plan of Treatment Care Team Description Date Type Specialty Ta Duckworth MD [address] [facility] [address] [place] [address] [phone] Overactive bladder 04/20/2019 Hospital Encounter Ta Duckworth MD [address] [facility] [address] [place] [address] [phone] CYSTOURETHROSCOPY WITH INJECTION FOR CHEMODENERVATION OF THE BLADDER (BOTOX 100 UNITS) 04/20/2019 Surgery Order Schedule Name Type Priority Associated Diagnoses Ordered: 10/28/2018 AMB REFERRAL TO ENT Outpatient Routine Shortness of breath Referral Ordered: 10/28/2018 AMB REFERRAL TO PULMONARY Outpatient Routine Shortness of breath [facility] Referral documented as of this encounter Procedures Comments Procedure Name Priority Date/Time Associated Diagnosis SPIROMETRY Routine 10/28/2018 Shortness of breath 2:35 PM GRANULATOR OPERATOR documented in this encounter Results * SPIROMETRY (10/28/2018 2:35 PM GRANULATOR OPERATOR) FVC-Pre 1.91 L [facility] FVC-%Pred-pre 57 % [facility] FEV1-Pre 1.62 L [facility] FEV1-%Pred-Pre 63 % [facility] FEV1/FVC-Pre 85 % [facility] [id number] 67 % [facility] [id number] 2.22 L/sec [facility] [id number]-P 102 % [facility] re Specimen Narrative Performed At Performing Organization Address City/State/Zipcode Phone Number [facility] [address] [place] [address] documented in this encounter Visit Diagnoses Diagnosis Shortness of breath - Primary documented in this encounter
--- OUTSIDE RECORDS SUMMARY | 2019-03-30 12:05 | XMS REPORT | Encounter Summary ---
Author Author [facility] Organization [facility] Address Unknown Phone Unavailable Care Team Providers Care Social Insurance Specialist Name Role Phone Judah Lopez RN Unavailable Unavailable Brett Alcantar MD Unavailable Kumar Diggs MD Unavailable Doctor, Miscellaneous Unavailable Unavailable Barbara Pelaez MD Unavailable Adolfo Cardenas MD PCP Fausto Hsu Unavailable Unavailable Nallely Gomez MD Unavailable Silvano Potts MD Unavailable Sarwat Lozano APRN Unavailable Unavailable Aileen Jacobson MD Unavailable Unavailable Leonid Santos MD Unavailable Unavailable Danitza Rios MA,CCC-ELECTRONICS ENGINEERING TECHNICIAN Unavailable Unavailable Gela Cleary RN Unavailable Unavailable Hossein Minaya MD Unavailable Deonna Cunningham RN Unavailable Unavailable Anila Valencia RN Unavailable Unavailable Daniel Bond RN Unavailable Unavailable Yolette Moore MA,CCC-ELECTRONICS ENGINEERING TECHNICIAN Unavailable Unavailable Bryan Romero Unavailable Unavailable Nallely Tracy MA,CCC-ELECTRONICS ENGINEERING TECHNICIAN Unavailable Unavailable Haresh Kathleen MD Unavailable Teetee Taylor RN Unavailable Unavailable Bonnie Goss RN Unavailable Unavailable Maricel Albrecht MD Unavailable Kiarra Patrick RN Unavailable Unavailable Evelio Chris RN 2 Unavailable Todd Avendano MD Unavailable Tatiana Tim PA-C Unavailable Reason for Visit * Reason Comments Diarrhea Follow-up Phone Call Encounter Details Care Team Description Date Type Department [place], Shereen, DANIEL [address] Orth[facility] [address] [place] [address] [phone] Diarrhea; Follow-up Phone Call 11/23/2018 Telephone [facility] [address] [place] [address] Social History Date Tobacco Use Types Packs/Day [...] Telephone Encounter - Kym Ng LPN - 12/07/2018 10:54 AM CDT Received VM from pt requesting to know when she may repeat C Diff testing. Per b juanpablo pt may completed 14 days after finishing abx which would be today. Attempte d to contact pt, phone rang without VM vegetable picker. * Telephone Encounter - Elena Cedillo LPN - 11/24/2018 9:34 AM CDT Spoke to pt and relayed recommendations. Pt verbalized understanding and is agre eable to repeat c-diff testing in 14 days. * Telephone Encounter - Shereen Horowitz ARNP - 11/24/2018 8:55 AM CDT Ok to order C. diff PCR but she needs to collect it no sooner than 14 days after completion of vanco. * Telephone Encounter - Elena Cedillo LPN - 11/23/2018 3:09 PM CDT Patient called requesting follow up stool studies for c-diff. Patient states she can not have her knee replacement surgery until she no longer has c-diff. * Telephone Encounter - Kym Ng LPN - 11/23/2018 2:05 PM CDT Received call from pt stating she finished course of Vancomycin for C Diff today . Still reports loose watery diarrhea however is down to 5-7 times a day from 10 -12 before abx. Denies abd pain/N/V, reports feeling weak and tired Pt did stop imodium but states she continued to take dicyclomine . Routing to Shereen Horowitz documented in this encounter Plan of Treatment Care Team Description Date Type Specialty Ta Duckworth MD [address] [facility] [address] [place] [address] [phone] Overactive bladder 04/20/2019 Hospital Encounter Ta Duckworth MD [address] [facility] [address] [place] [address] [phone] CYSTOURETHROSCOPY WITH INJECTION FOR CHEMODENERVATION OF THE BLADDER (BOTOX 100 UNITS) 04/20/2019 Surgery documented as of this encounter Results * C DIFFICILE BY PCR (12/10/2018 12:50 PM CDT) Battery Name C DIFFICILE PCR MAIN LAB Specimen FECES MAIN LAB Description Special NONE MAIN LAB Requests C. difficile NEGATIVE-wait 7 days to repeat MAIN LAB Toxin B PCR test Report Status FINAL MAIN LAB 12/11/2018 Specimen Feces Performing Organization Address City/State/Zipcode Phone Number MAIN LAB [address] [place] [address] documented in this encounter Visit Diagnoses Diagnosis Diarrhea, unspecified type - Primary History of Clostridium difficile colitis History of Clostridium difficile infection Personal history of other infectious and parasitic disease documented in this encounter
--- OUTSIDE RECORDS SUMMARY | 2019-03-30 12:05 | XMS REPORT | Encounter Summary ---
Author Author [facility] Organization [facility] Address Unknown Phone Unavailable Care Team Providers Care Director Of Direct Marketing Name Role Phone Judah Lopez RN Unavailable Unavailable Brett Alcantar MD Unavailable Kumar Diggs MD Unavailable Doctor, Miscellaneous Unavailable Unavailable Barbara Pelaez MD Unavailable Adolfo Cardenas MD PCP Fausto Hsu Unavailable Unavailable Nallely Gomez MD Unavailable Silvano Potts MD Unavailable Sarwat Lozano APRN Unavailable Unavailable Aileen Jacobson MD Unavailable Unavailable Leonid Santos MD Unavailable Unavailable Danitza Rios MA,CCC-TEST PREPARATION TUTOR Unavailable Unavailable Gela Cleary RN Unavailable Unavailable oHssein Minaya MD Unavailable Deonna Cunningham RN Unavailable Unavailable Anila Valencia RN Unavailable Unavailable Daniel Bond RN Unavailable Unavailable Yolette Moore MA,CCC-TEST PREPARATION TUTOR Unavailable Unavailable Bryan Romero Unavailable Unavailable Nallely Tracy MA,CCC-TEST PREPARATION TUTOR Unavailable Unavailable Haresh Kathleen MD Unavailable Teetee Taylor RN Unavailable Unavailable Bonnie Goss RN Unavailable Unavailable Maricel Albrecht MD Unavailable Kiarra Patrick RN Unavailable Unavailable Evelio Chris RN 2 Unavailable Todd Avendano MD Unavailable Tatiana Tim PA-C Unavailable Encounter Details Care Team Description Date Type Department Shereen Horowitz ARNP [address] [facility] [address] [place] [address] [phone] Personal history of other infectious and parasitic diseases 12/10/2018 [facility] [address] [facility] [address] [place] [address] Social History Date Tobacco Use Types Packs/Day [...] impairment: No documented as of this encounter Medications at Time of Discharge Start Date End Date Medication Sig Dispensed Refills 02/02/2016 acyclovir (ZOVIRAX) 200 Take 1 Cap by 30 Cap 1 mg capsule mouth daily. 09/23/2018 albuterol (PROAIR HFA, Inhale two 1 Inhaler 11 VENTOLIN HFA, OR puffs by PROVENTIL HFA) 90 mouth into mcg/actuation inhaler the lungs every 6 hours as needed for Wheezing or Shortness of Breath. Shake well before use. 10/28/2018 budesonide/formoterol Inhale two 1 Inhaler 11 (SYMBICORT HFA) 160/4.5 puffs by mcg inhalation mouth into the lungs twice daily. citalopram (CELEXA) 10 mg Take 10 [...] mouth at 20/80 mg chew bedtime daily. 11/09/[address] Take one 60 tablet 2 (PROTONIX) 40 mg tablet tablet by mouth daily. 02/02/2016 pramipexole (MIRAPEX) Take 1 Tab by 60 Tab 1 0.125 mg tablet mouth twice daily. simvastatin (ZOCOR) 40 mg Take 40 mg by 0 tablet mouth at bedtime daily. zolpidem CR(+) (AMBIEN Take 12.5 mg 0 CR) 12.5 mg tablet by mouth at bedtime as needed. 03/15/2019 aspirin 325 mg tablet Take 325 mg 0 by mouth daily. Take with food. 02/02/2016 03/03/2019 metFORMIN (GLUCOPHAGE) Take 1 Tab by 60 Tab 1 500 mg tablet mouth twice daily with meals. 03/10/2018 03/15/2019 mirabegron(+) ER Take 1 tablet 30 tablet 11 (MYRBETRIQ) 50 mg by mouth tabletIndications: daily. Incomplete bladder emptying 03/15/2019 ondansetron (ZOFRAN) 4 mg Take 4 mg by 0 tablet mouth every 8 hours as needed for Nausea or Vomiting. documented as of this encounter Plan of Treatment Care Team Description Date Type Specialty Ta Duckworth MD [address] [facility] [address] [place] [address] [phone] Overactive bladder 04/20/2019 Hospital Encounter Ta Duckworth MD [address] [facility] [address] [place] [address] [phone] CYSTOURETHROSCOPY WITH INJECTION FOR CHEMODENERVATION OF THE BLADDER (BOTOX 100 UNITS) 04/20/2019 Surgery documented as of this encounter Procedures Comments Procedure Name Priority Date/Time Associated Diagnosis C DIFFICILE BY PCR Routine 12/10/2018 History of Clostridium 12:50 PM CDT difficile infection documented in this encounter Results * C DIFFICILE BY PCR (12/10/2018 12:50 PM CDT) Battery Name C DIFFICILE PCR MAIN LAB Specimen FECES MAIN LAB Description Special NONE MAIN LAB Requests C. difficile NEGATIVE-wait 7 days to repeat MAIN LAB Toxin B PCR test Report Status FINAL MAIN LAB 12/11/2018 Specimen Feces Performing Organization Address City/State/Zipcode Phone Number MAIN LAB [address] [place] [address] documented in this encounter Visit Diagnoses Diagnosis History of Clostridium difficile infection Personal history of other infectious and parasitic disease documented in this encounter
--- OUTSIDE RECORDS SUMMARY | 2019-03-30 12:05 | XMS REPORT | Encounter Summary ---
Author Author [facility] Organization [facility] Address Unknown Phone Unavailable Care Team Providers Care Commercial Lines Underwriter Name Role Phone Judah Lopez RN Unavailable Unavailable Brett Alcantar MD Unavailable Kumar Diggs MD Unavailable Doctor, Miscellaneous Unavailable Unavailable Barbara Pelaez MD Unavailable Adolfo Cardenas MD PCP Fausto Hsu Unavailable Unavailable Nallely Gomez MD Unavailable Silvano Potts MD Unavailable Sarwat Lozano APRN Unavailable Unavailable Aileen Jacobson MD Unavailable Unavailable Leonid Santos MD Unavailable Unavailable Danitza Rios MA,CCC-EMPLOYEE ADVISER Unavailable Unavailable Gela Cleary RN Unavailable Unavailable Hossein Minaya MD Unavailable Deonna Cunningham RN Unavailable Unavailable Anila Valencia RN Unavailable Unavailable Daniel Bond RN Unavailable Unavailable Yolette Moore MA,CCC-EMPLOYEE ADVISER Unavailable Unavailable Bryan Romero Unavailable Unavailable Nallely Tracy MA,CCC-EMPLOYEE ADVISER Unavailable Unavailable Haresh Kathleen MD Unavailable Teetee Taylor RN Unavailable Unavailable Bonnie Goss RN Unavailable Unavailable Maricel Albrecht MD Unavailable Kiarra Patrick RN Unavailable Unavailable Evelio Chris RN 2 Unavailable Todd Avendano MD Unavailable Tatiana Tim PA-C Unavailable Encounter Details Care Team Description Date Type Department Shereen Horowitz ARNP [address] [facility] [address] [place] [address] [phone] Diarrhea, unspecified 11/10/2018 [facility] [address] [place] [address] Social History Date Tobacco Use Types Packs/Day [...] [facility]eli Le[facility] [address] [place] [address] [phone] Overactive bladder 04/20/2019 Hospital Encounter Ta Duckworth MD [address] [facility] [address] [place] [address] [phone] CYSTOURETHROSCOPY WITH INJECTION FOR CHEMODENERVATION OF THE BLADDER (BOTOX 100 UNITS) 04/20/2019 Surgery documented as of this encounter Procedures Comments Procedure Name Priority Date/Time Associated Diagnosis C DIFFICILE BY PCR Routine 11/10/2018 Diarrhea, unspecified 9:00 AM CDT type OVA AND PARASITES, FECAL Routine 11/10/2018 Diarrhea, unspecified 9:00 AM CDT type History of foreign travel LEUKOCYTES, FECAL Routine 11/10/2018 Diarrhea, unspecified 9:00 AM CDT type GIARDIA SCREEN,FECAL Routine 11/10/2018 Diarrhea, unspecified 9:00 AM CDT type CRYPTOSPORIDUM,FECAL Routine 11/10/2018 Diarrhea, unspecified 9:00 AM CDT type documented in this encounter Results * C DIFFICILE BY PCR (11/10/2018 9:00 AM CDT) Battery Name C DIFFICILE PCR MAIN LAB Specimen FECES MAIN LAB Description Special NONE MAIN LAB Requests C. difficile POSITIVE-wait 14 days to MAIN LAB Toxin B PCR repeat test Report Status FINAL MAIN LAB 11/10/2018 Specimen Feces Performing Organization Address [facility]/Zipcode Phone Number MAIN LAB [address] [place] [address] * CRYPTOSPORIDUM,FECAL (11/10/2018 9:00 AM CDT) Battery Name CRYPTOSPORIDIUM MAIN LAB Specimen FECES MAIN LAB Description Special NONE MAIN LAB Requests Cryptosporidium NEGATIVE FOR CRYPTOSPORIDIUM MAIN LAB Report Status FINAL MAIN LAB 11/10/2018 Specimen Stool - Feces Performing Organization Address [facility]/Zipcode Phone Number MAIN LAB [address] [place] [address] * GIARDIA SCREEN,FECAL (11/10/2018 9:00 AM CDT) Battery Name GIARDIA SCREEN MAIN LAB Specimen FECES MAIN LAB Description Special NONE MAIN LAB Requests Giardia EIA NEGATIVE FOR GIARDIA (LAMBLIA) [facility] MAIN LAB INTESTINALIS Report Status FINAL MAIN LAB 11/10/2018 Specimen Feces Performing Organization Address [facility] [address] [place] [address] * LEUKOCYTES, FECAL (11/10/2018 9:00 AM CDT) Battery Name FECAL LEUKOCYTES MAIN LAB Specimen FECES MAIN LAB Description Special NONE MAIN LAB Requests Fecal POSITIVE BY LACTOFERRIN MAIN LAB Leukocytes Report Status FINAL [facility] 11/10/2018 Specimen Stool - Feces Performing Organization Address [facility] [address] [place] [address] * OVA AND PARASITES, FECAL (11/10/2018 9:00 AM CDT) Battery Name OVA AND PARASITES MAIN LAB Specimen FECES MAIN LAB Description Special NONE MAIN LAB Requests Ova & Parasites SEE RESULTS OF GIARDIA AND MAIN LAB CRYPTOSPORIDIUM ANTIGENS BY EIA. THE ANTIGEN DETECTION ASSAY IS MORE SENSITIVE FOR THESE PARASITES. PLEASE CONTACT THE MICROBIOLOGY LAB AT [phone] TO REQUEST FURTHER PARASITE TESTING. Report Status FINAL [facility] 11/10/2018 Specimen Stool - Feces Performing Organization Address [facility] Phone Number [facility] [address] [place] [address] documented in this encounter Visit Diagnoses Diagnosis Diarrhea, unspecified type History of foreign travel Other specified conditions influencing health status documented in this encounter
--- OUTSIDE RECORDS SUMMARY | 2019-03-30 12:05 | XMS REPORT | Encounter Summary ---
Author Author [facility] Organization [facility] Address Unknown Phone Unavailable Care Team Providers Care Marksmanship Instructor Name Role Phone Judah Lopez RN Unavailable Unavailable Brett Alcantar MD Unavailable Kumar Diggs MD Unavailable Doctor, Miscellaneous Unavailable Unavailable Barbara Pelaez MD Unavailable Adolfo Cardenas MD PCP Fausto Hsu Unavailable Unavailable Nallely Gomez MD Unavailable Silvano Potts MD Unavailable Sarwat Lozano APRN Unavailable Unavailable Aileen Jacobson MD Unavailable Unavailable Leonid Santos MD Unavailable Unavailable Danitza Rios MA,CCC-HAND CARVER Unavailable Unavailable Gela Cleary RN Unavailable Unavailable Hossein Minaya MD Unavailable Deonna Cunningham RN Unavailable Unavailable Anila Valencia RN Unavailable Unavailable Daniel Bond RN Unavailable Unavailable Yolette Moore MA,CCC-HAND CARVER Unavailable Unavailable Bryan Romero Unavailable Unavailable Nallely Tracy MA,CCC-HAND CARVER Unavailable Unavailable Haresh Kathleen MD Unavailable Teetee Taylor RN Unavailable Unavailable Bonnie Goss RN Unavailable Unavailable Maricel Albrecht MD Unavailable Kiarra Patrick RN Unavailable Unavailable Evelio Chris RN 2 Unavailable Todd Avendano MD Unavailable Tatiana Tim PA-C Unavailable Reason for Visit * Reason Comments Patient Questions Encounter Details Care Team Description Date Type Department Shereen Horowitz ARNP [address] [facility] [address] [place] [address] Patient Questions 11/30/2018 Telephone [facility] [address] [place] [address] Social History Date Tobacco Use [...] Miscellaneous Notes * Telephone Encounter - Kym NgMACHELLE - 12/01/2018 3:46 PM CDT Spoke to pt. Pt reports she went to [facility] via ambulance yesterday after falling. States she fell as her knee "gave out". Pt was d/c after IV morphine a nd labs. States she has to wait for repeat C Diff testing to be completed before scheduling second knee replacement. Pt aware of repeat orders for C Diff to be completed no sooner than 12/07/18. Reports 5 BMs daily which is down from 10-12 B Ms before course of abx. Pt to f/u w/ PCP and surgeon regarding knee. * Telephone Encounter - Elena Cedillo LPN - 12/01/2018 2:35 PM CDT Attempted to call pt for below. Left VM for pt to call back. * Telephone Encounter - Elena Cedillo LPN - 11/30/2018 3:22 PM CDT Pt called and left VM stating she was dizzy and falling down. Pt also reports vo miting. Attempted to call pt back. Called pt twice due to not being able to leav e VM. documented in this encounter Plan of Treatment Care Team Description Date Type Specialty Ta Duckworth MD [address] [facility] [address] [place] [address] [phone] Overactive bladder 04/20/2019 Hospital Encounter Ta Duckworth MD [address] [facility] [address] [place] [address] [phone] CYSTOURETHROSCOPY WITH INJECTION FOR CHEMODENERVATION OF THE BLADDER (BOTOX 100 UNITS) 04/20/2019 Surgery documented as of this encounter Visit Diagnoses Not on filedocumented in this encounter
--- OUTSIDE RECORDS SUMMARY | 2019-03-30 12:05 | XMS REPORT | Encounter Summary ---
Author Author [facility] Organization [facility] Address Unknown Phone Unavailable Care Team Providers Care Supervisor Chlorine Liquefaction Name Role Phone Judah Lopez RN Unavailable Unavailable Brett Alcantar MD Unavailable Kumar Diggs MD Unavailable Doctor, Miscellaneous Unavailable Unavailable Barbara Pelaez MD Unavailable Adolfo Cardenas MD PCP Fausto Hsu Unavailable Unavailable Nallely Gomez MD Unavailable Silvano Potts MD Unavailable Sarwat Lozano APRN Unavailable Unavailable Aileen Jacobson MD Unavailable Unavailable Leonid Santos MD Unavailable Unavailable Danitza Rios MA,CCC-FAST FOOD RESTAURANT MANAGER Unavailable Unavailable Gela Cleary RN Unavailable Unavailable Hossein Minaya MD Unavailable Deonna Cunningham RN Unavailable Unavailable Anila Valencia RN Unavailable Unavailable Daniel Bond RN Unavailable Unavailable oYlette Moore MA,CCC-FAST FOOD RESTAURANT MANAGER Unavailable Unavailable Bryan Romero Unavailable Unavailable Nallely Tracy MA,CCC-FAST FOOD RESTAURANT MANAGER Unavailable Unavailable Haresh Kathleen MD Unavailable Teetee Taylor RN Unavailable Unavailable Bonnie Goss RN Unavailable Unavailable Maricel Albrecht MD Unavailable Kiarra Patrick RN Unavailable Unavailable Evelio Chris RN 2 Unavailable Todd Avendano MD Unavailable Tatiana Tim PA-C Unavailable Reason for Visit * Reason Comments C Diff Encounter Details Care Team Description Date Type Department Shereen Horowitz ARNP [address] Ortho[facility]Med [facility] [address] [place] [address] C Diff 11/11/2018 Telephone [facility] [address] [place] [address] Social History Date Tobacco Use [...] Telephone Encounter - Kym Ng LPN - 11/11/2018 10:07 AM CDT Spoke to pt. Relayed results and recommendations; pt verbalized understanding wi th no further questions at this time. Rx sent to pt preferred pharmacy, pt to ca ll w/ any issues picking up Rx. Reviewed C Diff precautions and importance of mcelroy nd hygiene w/ pt on phone. Pt to call w/ progress report after completing course of abx and PRN. * Telephone Encounter - Kym Ng LPN - 11/11/2018 9:54 AM CDT ----- Message from DANIEL Joya sent at 11/11/2018 9:11 AM CDT ----- Call pt. C. diff +. Confirm with her that this is her first occurrence. If so, t reat with Vanco 125 mg qid for 10 days. Remind her of infection precautions. Whi le on Vanco have her stop imodium and dicyclomine. Call with progress report aft er 10 day regimen complete, call sooner if needed. Go to ER or see PCP in [facility] if she develops fever, increasing abd pain, vomiting, worsening symptoms. documented in this encounter Plan of Treatment Care Team Description Date Type Specialty Ta Duckworth MD [address] Orth[facility] [address] [place] [address] [phone] Overactive bladder 04/20/2019 Hospital Encounter Ta Duckworth MD [address] Orth[facility] [address] [place] [address] [phone] CYSTOURETHROSCOPY WITH INJECTION FOR CHEMODENERVATION OF THE BLADDER (BOTOX 100 UNITS) 04/20/2019 Surgery documented as of this encounter Visit Diagnoses Not on filedocumented in this encounter
--- OUTSIDE RECORDS SUMMARY | 2019-03-30 12:05 | XMS REPORT | Encounter Summary ---
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 Name Role Phone Judah Lopez RN Unavailable Unavailable Brett Alcantar MD Unavailable Kumar Diggs MD Unavailable Doctor, Miscellaneous Unavailable Unavailable Barbara Pelaez MD Unavailable Adolfo Cardenas MD PCP Fausto Hsu Unavailable Unavailable Nallely Gomez MD Unavailable Silvano Potts MD Unavailable Sarwat Lozano APRN Unavailable Unavailable Aileen Jacobson MD Unavailable Unavailable Leonid Santos MD Unavailable Unavailable Danitza Rios MA,CCC-CO CHAIRMAN Unavailable Unavailable Gela Cleary RN Unavailable Unavailable Hossein Minaya MD Unavailable Deonna Cunningham RN Unavailable Unavailable Anila Valencia RN Unavailable Unavailable Daniel Bond RN Unavailable Unavailable Yolette Moore MA,CCC-CO CHAIRMAN Unavailable Unavailable Bryan Romero Unavailable Unavailable Nallely Tracy MA,CCC-CO CHAIRMAN Unavailable Unavailable Haresh Kathleen MD Unavailable Teetee Taylor RN Unavailable Unavailable Bonnie Goss RN Unavailable Unavailable Maricel Albrecht MD Unavailable Kiarra Patrick RN Unavailable Unavailable Evelio Chris RN 2 Unavailable Todd Avendano MD Unavailable aTtiana Tim PA-C Unavailable Reason for Visit * Reason Comments Diarrhea Encounter Details Care Team Description Date Type Department Shereen Horowitz ARNP [address] [facility] [address] [place] [address] Diarrhea, unspecified type (Primary Dx); History of foreign travel; Gastroesophageal reflux disease, esophagitis presence not specified; History of colon polyps; Nausea 11/09/2018 Office Visit [facility] [address] [place] [address] Social History Date Tobacco Use Types [...] Signs Reading Time Taken Comments Vital Sign 132/76 11/09/2018 3:23 PM CDT Blood Pressure 81 11/09/2018 3:23 PM CDT Pulse 36.3 C (97.3 F) 11/09/2018 3:23 PM CDT Temperature 20 11/09/2018 3:23 PM CDT Respiratory Rate - - Oxygen Saturation - - Inhaled Oxygen Concentration 103.6 kg (228 lb 4.8 oz) 11/09/2018 3:23 PM CDT Weight 167.6 cm (5' 6") 11/09/2018 3:23 PM CDT per pt Height 36.85 11/09/2018 3:23 PM CDT Body Mass Index documented in [...] this encounter Patient Instructions * Patient Instructions* Shereen Horowitz ARNP - 11/09/2018 3:00 PM CDT 1. Be sure to turn in stool specimens for testing. If you turn the specimens i n to a [place] lab, please call Kym my nurse in 2 days if you have not hear d from us regarding the results. 2. For the regurgitation, continue to avoid red sauces. Also, increase the rock toprazole to 40 mg twice daily, take 30 minutes before morning and evening meals . Avoid eating 2-3 hours before going to bed. Also, start a gastroparesis diet as well to see if helpful for the regurgitation and the nausea. 3. For the abdominal cramping, you can continue dicyclomine 10mg. You can take 1-2 tablets up to 4 times a day as needed. 4. We can plan a follow-up visit as needed. Please call my nurse with any conc erns or worsening symptoms. Please call my nurse Kym if you have any questions or concerns. [phone]. Gastroparesis is when food moves through the stomach more slowly than normal. It s also calleddelayed gastric emptying. How to say it [id number] Changing your diet Basic Dietary Guidelines for Patients with Gastroparesis: Small, frequent meals. Reducing the meal size reduces the distention of the s tomach from the meal. By eating smaller meals, patients may not feel as full or bloated and the stomach may empty faster. With the reduction in meal size, increasing the number of meal s to 4-6 per day is needed to maintain adequate nutritional intake. Avoid foods high in fat. Fat can delay emptying of the stomach. Eating less f at-containing foods will decrease the amount of time food stays in the stomach. However, fat-c ontaining liquids, such as milkshakes, may be tolerated and provide needed calories. A diet low in fiber is suggested. Fiber delays gastric emptying. In addition, fiber may bind together and cause a blockage of the stomach, called a bezoar in some patients.. Examples of high fiber foods that should be avoided include oranges, berries, green beans, p otato peels, apples, sauerkraut, and Brussel sprouts. Fiber supplements for treatment of cons tipation should also be discontinued if possible. Chew food well before swallowing. Patients should avoid foods that may not ea sily chewed such as broccoli, corn, popcorn, nuts, and seeds. Solid food in the stomach does not empty well. Dental problems, such as missing or broken teeth, may lead to poorly chewe d food; this may add to the problem of inadequate breakdown of food into smaller particl es in the stomach for passage into the small intestine for absorption. Taking fluids throughout the meal and sitting upright or walking for 1-2 hour s after meals may help in the emptying of the meal from the stomach. A daily multivitamin/mineral supplement can be taken if dietary intake is cristobal dequate. IfTalk with your healthcare provider or a dietitian about an eating plan that is best for you. General Instructions: To have a medication refilled: Please use the [email or web address] Refill request or [email or web address] your pharmacy directly to request medication refills. Please allow [address] [facility] Lab is on the 1st floor. It is open from 7 am-6pm -Friday and 6:30am-7pm on Mondays, and 7 am - Noon on Saturdays [facility] Lab is located on the 2nd floor and is open 8 am-5 pm Friday-Friday [facility] lab is located next to the check out desk and is open from 8 A M to 4:45 PM Friday through Friday. Radiology is on the 2nd floor of the Medical Office Building and the 2nd [facility]. Radiology Scheduling can be reached at Press 1 for MRI, press 2 for nuclear med, press 3 for breast imaging, press 4 for interventi onal radiology, press [address] and ultrasound. To Schedule office visits: Call [phone]. For procedure scheduling questions at the Main [facility] or [facility] se call ; for a procedure at [facility] please call . To receive appointment reminders on your cell phone: Make sure we have your c ell phone number, and Text [facility] to [phone]. Support for many chronic illnesses is available through [facility]: [email or web address] or [phone]. For urgent questions on nights, weekends or holidays, call the Collateral Clerk at [phone], and ask for the doctor cone baker machine for Gastroenterology.Call 911 for a il emergencies. documented in this encounter Progress Notes * Shereen Horowitz ARNP - 11/09/2018 3:00 PM CDT Date of Service: 11/09/2018 Subjective: Micki Kelley is a 68 y.o. female. History of Present Illness Micki is a very pleasant 68-year-old female who has been seen by Dr. Hillary anne in the past with a history of multiple abdominal surgeries with lysis of adhesions and ventral hernia repair by Dr. Santos in 2013. Prior to that surge ry she reported chronic abdominal pain, bloating, and associated constipation. The constipation resolved after surgery. She is also been treated empirically w aidan Valverde and Kate for possible small intestinal bacterial overgrowth. 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 Overall, s he had excellent response to this treatment. A colonoscopy was in 09/2015 which revealed sigmoid diverticulosis and external hemorrhoids. I saw her for a visit in 10/2017 when she reported a 4-week history of abrupt onset watery diarrhea al milagro with significant abdominal cramping. No associated red flag symptoms includ ing bloody stools, fevers, chills, or weight loss. At onset of the diarrhea she also reported 18 hours of vomiting which resolved. At that visit she also repo rted some increased issues with GERD along with some distal esophageal dysphagia . I did recommend stool studies which were negative for an infectious cause. S he was started on Lomotil 4 times daily as needed with no significant improvemen t. For the GERD symptoms she was started on pantoprazole 40 mg daily. Due to on going diarrhea, we moved forward with flexible sigmoidoscopy with random biopsie s to evaluate for microscopic colitis. EGD with possible Botox was also perform ed. Flexible sigmoidoscopy on 01/14/18 revealed sigmoid diverticulosis and nonbl eeding external hemorrhoids. Random biopsies were negative for microscopic coli tis. EGD on 01/14/18 revealed normal esophagus, stomach, and duodenum. Small abdi wel biopsies were negative for celiac sprue. LES was injected with 100 units of Botox. She presents today for a follow-up visit. I saw her last in 10/2017. After her flexible sigmoidoscopy in 12/2017 she states her diarrhea resolved and she return ed back to her normal bowel pattern of 2-3 formed bowel movements per day. Unfo rtunately, in 07/2018 she developed gradual diarrhea described as 8-12 soft thin watery stools per day with some associated abdominal cramping. No associated f ever, chills, nausea, or vomiting. She states she was diagnosed with Salmonella in 08/2018 by her PCP in [facility]. 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 She states she was treated with an antibiotic for 2 weeks with only some improvement of her diarrhea. In 09/2018 e states she also traveled to [facility] and was still having diarrhea. Repeat stool culture on 10/30/18 was negative including for salmonella. Currently, she is havi ng up to 5 often postprandial urgent bowel movements which are explosive. No bl ood in the stool. She is having some left periumbilical pain which does not see m to be improving with dicyclomine 10 mg 4 times daily. She is taking Imodium 1 -2 times a day which does seem to be helping. She is no longer taking Lomotil a s it was not helpful and not affordable prior. She does have some mild nausea w ith eating but no associated weight loss. She denies steatorrhea. She remains on pantoprazole 40 mg daily but has reported breakthrough symptoms 3 times a wee k after gaining around 20 pounds status post treatment with prednisone for a zena h. No issues with odynophagia, dysphagia, vomiting, melena, or anorexia. Outside lab work dated 11/03/18: WBC 10.2, hemoglobin 12.2, hematocrit 39, creati nine 0.80, normal LFTs, albumin 4.0 Review of Systems Constitutional: Positive for fatigue and unexpected weight change. Negative for appetite change, chills, diaphoresis and fever. HENT: Positive for tinnitus. Negative for mouth sores, sore throat, trouble swal lowing and voice change. Eyes: Negative for pain and visual disturbance. Respiratory: Positive for shortness of breath. Negative for choking and chest ti ghtness. Cardiovascular: Negative for chest pain. Gastrointestinal: Positive for abdominal pain, diarrhea and nausea. Negative for abdominal distention, anal bleeding, blood in stool, constipation, rectal pain and vomiting. Genitourinary: Negative for flank pain and pelvic pain. Musculoskeletal: Negative for arthralgias and back pain. Skin: Negative for rash. Neurological: Negative for light-headedness and headaches. Hematological: Negative for adenopathy. All other systems reviewed and are negative. Objective: acyclovir (ZOVIRAX) 200 mg capsule Take [...] mouth at bedtime a s needed. Vitals: 11/09/18 1523 BP: 132/76 Pulse: 81 Resp: 20 Temp: 36.3 C (97.3 F) TempSrc: Oral Weight: 103.6 kg (228 lb 4.8 oz) Height: 167.6 cm (66") Body mass index is 36.85 kg/m. Physical Exam Constitutional: She is oriented to person, place, and time. She appears well-dev eloped and well-nourished. No distress. HENT: Head: Normocephalic and atraumatic. Mouth/Throat: Oropharynx is clear and moist. Eyes: Conjunctivae are normal. Pupils are equal, round, and reactive to light. R ight eye exhibits no discharge. Left eye exhibits no discharge. No scleral icter us. Neck: Normal range of motion. Neck supple. No thyromegaly present. Cardiovascular: Normal rate, regular rhythm, normal heart sounds and intact dist al pulses. Pulmonary/Chest: Effort normal and breath sounds normal. No respiratory distress . She has no wheezes. Abdominal: Soft. Bowel sounds are normal. She exhibits no distension and no mass . There is tenderness. There is no rebound and no guarding. obese, mild generalized tenderness, soft Musculoskeletal: Normal range of motion. She exhibits no edema. Lymphadenopathy: She has no cervical adenopathy. Neurological: She is alert and oriented to person, place, and time. Coordination normal. Skin: Skin is warm and dry. No rash noted. She is not diaphoretic. Psychiatric: She has a normal mood and affect. Her behavior is normal. Judgment and thought content normal. Vitals reviewed. Assessment and Plan: 1. Diarrhea. Patient reports gradual onset of diarrhea in 07/2018. Tested pos itive for Salmonella in 08/2018 and treated with 2 weeks of antibiotics per PCP w ith only mild improvement of symptoms. Currently taking Imodium with some impro vement. Dicyclomine 10 tid not helping with cramping. She states this is her thi rd episode of Salmonella over the past few years. No prior history of C. diffic ile. She has had issues with diarrhea in 2018 which resolved over time. Workup at that time revealed negative small bowel biopsies for celiac sprue and negati ve random colon biopsies for microscopic colitis. 2. GERD/epigastric pain. Past symptoms resolved with outside EGD with Botox to EJ in 2013 and 2014. Most recent EGD 12/2017 with no evidence of esophagitis and repeat Botox to EJ performed with symptom improvement. With recent diarrhea i ssues, also reporting increased GERD symptoms despite pantoprazole 40 mg once da roger. 3. History of bloating and gas with suspected small intestinal bacterial overgr owth. Symptoms reportedly improved with Cipro/Flagyl regimen by outside provide r. No significant symptoms at this time. 4. History of colon polyps. Most recent colonoscopy 09/2015 with no polyps seen. Flexible sigmoidoscopy 12/2017 completed for diarrhea, no left-sided polyps see n. Plan: 1. The cause of her current diarrhea is unclear. She could have postinfectious IBS. However, given her ongoing symptoms and recent antibiotic use as well as travel outside of the [place], recommend stool studies to rule out additional infecti on. Will check for C. difficile, fecal leukocytes, Giardia, cryptosporidium, an d ova and parasites. We will call her with results. If results are negative, c an have her take scheduled Imodium and fiber supplement. 2. Since issues with the diarrhea she is also noted some meal related nausea an d early satiety. Given her history of diabetes will have her start a gastropare sis diet to see if helpful. 3. For her current breakthrough reflux symptoms we will have her try increasing pantoprazole to 40 mg twice daily, taking 30 minutes before morning and evening meals. Also encourage strict antireflux precautions. 4. Given that she lives 3-4 hours away, she would like to follow-up with GI on a as needed basis. Encouraged her to call with any questions or concerns. 5. She will be due for surveillance colonoscopy in 2020. Patient and her were advised of the plan and voiced agreement and unders tanding. Total face to face time spent with patient: 40 minutes with >50% of that time spent counseling the patient on medications, prior study results related to symptoms, differential diagnosis, and options regarding the plan of care. Thank you for allowing me to see your patient in the office today. Please feel f ree to contact me if you have any questions or concerns. This note was in part completed with [employer], a voice to text dictation system. S ome errors may have occured and persist despite my best efforts to edit this doc ument to eliminate dictation/translationrelated errors. If you have question s/concerns, please contact me for clarification documented in this encounter Plan of Treatment Care Team Description Date Type Specialty Ta Duckworth MD [address] [facility] [address] [place], [place] [id number] Overactive bladder 04/20/2019 Hospital Encounter Ta Duckworth MD [address] [facility] [address] [place], [place] [id number] CYSTOURETHROSCOPY WITH INJECTION FOR CHEMODENERVATION OF THE BLADDER (BOTOX 100 UNITS) 04/20/2019 Surgery documented as of this encounter Results * OVA AND PARASITES, FECAL (11/10/2018 9:00 AM CDT) Battery Name OVA AND PARASITES MAIN LAB Specimen FECES MAIN LAB Description Special NONE MAIN LAB Requests Ova & Parasites SEE RESULTS OF GIARDIA AND MAIN LAB CRYPTOSPORIDIUM ANTIGENS BY EIA. THE ANTIGEN DETECTION ASSAY IS MORE SENSITIVE FOR THESE PARASITES. PLEASE CONTACT THE MICROBIOLOGY LAB AT [phone] TO REQUEST FURTHER PARASITE TESTING. Report Status FINAL MAIN LAB 11/10/2018 Specimen Stool - Feces Performing Organization Address City/State/Zipcode Phone Number MAIN LAB [address] [place] [address] * LEUKOCYTES, FECAL (11/10/2018 9:00 AM CDT) Battery Name FECAL LEUKOCYTES MAIN LAB Specimen FECES [facility]U MAIN LAB Description Special NONE MAIN LAB Requests Fecal POSITIVE BY LACTOFERRIN MAIN LAB Leukocytes Report Status FINAL MAIN LAB 11/10/2018 Specimen Stool - Feces Performing Organization Address [facility] Phone Number [facility] LAB [address] [place] [address] * GIARDIA SCREEN,FECAL (11/10/2018 9:00 AM CDT) Battery Name GIARDIA SCREEN MAIN LAB Specimen FECES KU MAIN LAB Description Special NONE MAIN LAB Requests Giardia EIA NEGATIVE FOR GIARDIA (LAMBLIA) MAIN LAB INTESTINALIS Report Status FINAL MAIN LAB 11/10/2018 Specimen Feces Performing Organization Address [facility] Phone Number MA[facility] LAB [address] [place] [address] * CRYPTOSPORIDUM,FECAL (11/10/2018 9:00 AM CDT) Battery Name CRYPTOSPORIDIUM MAIN LAB Specimen FECES MAIN LAB Description Special NONE MAIN LAB Requests Cryptosporidium NEGATIVE FOR CRYPTOSPORIDIUM MAIN LAB Report Status FINAL MAIN LAB 11/10/2018 Specimen Stool - Feces Performing Organization Address [facility] Phone Number MAIN LAB [address] [place] [address] * C DIFFICILE BY PCR (11/10/2018 9:00 AM CDT) Battery Name C DIFFICILE PCR MAIN LAB Specimen FECES MAIN LAB Description Special NONE MAIN LAB Requests C. difficile POSITIVE-wait 14 days to MAIN LAB Toxin B PCR repeat test Report Status FINAL MAIN LAB 11/10/2018 Specimen Feces Performing Organization Address [facility] Phone Number MAIN LAB [address] [place] [address] documented in this encounter Visit Diagnoses Diagnosis Diarrhea, unspecified type - Primary History of foreign travel Other specified conditions influencing health status Gastroesophageal reflux disease, esophagitis presence not specified History of colon polyps Personal history of colonic polyps Nausea Nausea alone documented in this encounter
--- OUTSIDE RECORDS SUMMARY | 2019-03-30 12:07 | XMS REPORT | Continuity of Care Document ---
Author Organization Unknown Address Unknown Phone Unavailable Allergies Active Description Code Type Severity Reaction Onset Reported/Identified Relationship to Patient Clinical Status Yes No Known Drug Allergies [id number] Drug Allergy Unknown N/A 02/11/2014 Medications There [...] TYPE II OR UNSPEC TY 02/19/2013 DEBORAH HALL, KATHLEEN R Ot 272.0 PURE HYPERCHOLESTEROLEM 02/19/2013 DEBORAH AHLL, KATHLEEN R Ot 333.94 RESTLESS LEGS SYNDROME 02/19/2013 DEBORAH HALL, KATHLEEN R Ot 401.9 HYPERTENSION NOS 02/19/2013 DEBORAH HALL, KATHLEEN R Ot 564.00 UNSPEC CONSTIPATION 02/19/2013 DEBORAH [...] BLOUNT DO Ot 787.02 NAUSEA ALONE 07/15/2013 MINE DO, NASREEN K Ot 789.04 ABDOMINAL PAIN, LEFT LOWER QUADRANT 07/15/2013 NASREEN BLOUNT DO K Ot V15.81 HX OF PAST NONCOMPLIANCE 07/21/2013 [...] 716.90 ARTHROPATHY NOS-UNSPEC 07/21/2013 KATHLEEN CABRERA MD Ot 719.46 JOINT PAIN-L/LEG 07/21/2013 KATHLEEN CABRERA MD R Ot 724.5 BACKACHE NOS 07/21/2013 KATHLEEN CABRERA MD R Ot 784.0 HEADACHE 07/21/2013 KATHLEEN CABRERA MD R Ot 787.02 NAUSEA ALONE 07/21/2013 KATHLEEN CABRERA MD R Ot 787.3 FLATUL/ERUCTAT/GAS PAIN 07/21/2013 KATHLEEN CABRERA MD R Ot 789.01 ABDOMINAL PAIN, RIGHT UPPER QUADRANT 07/21/2013 KATHLEEN CABRERA MD Ot E947.9 ADV EFF MEDICINAL NOS 07/21/2013 KATHLEEN CABRERA MD R Ot V15.88 HISTORY OF FALL 07/21/2013 KATHLEEN CABRERA MD Ot V58.69 OTH MED,LT,CURRENT USE 08/02/2013 KATHLEEN [...] CABRERA MD R Ot 787.91 DIARRHEA 08/02/2013 DEBORAH HALL, [...] DEBORAH HALL, KATHLEEN R Ot 272.0 05/15/2015 SEGLIE MD, KATHLEEN R Ot 333.94 05/15/2015 DEBORAH HALL, KATHLEEN R Ot 401.9 05/15/2015 DEBORAH HALL, KATHLEEN R Ot 789.02 05/15/2015 DEBORAH HALL, KATLHEEN R Ot V13.63 12/14/2015 DEBORAH HALL, KATHLEEN R Ot D64.9 ANEMIA, UNSPECIFIED 12/14/2015 DEBORAH HALL, KATHLEEN R Ot E03.9 HYPOTHYROIDISM, UNSPECIFIED 12/14/2015 DEBORAH HALL, KATHLEEN R Ot R73.02 IMPAIRED GLUCOSE TOLERANCE (ORAL) 12/19/2015 KATHLEEN CABRERA MD R Ot D64.9 ANEMIA, UNSPECIFIED 12/19/2015 DEBORAH HALL, KATHLEEN R Ot E03.9 HYPOTHYROIDISM, UNSPECIFIED 12/19/2015 DEBORAH HALL, KATHLEEN R Ot R73.02 IMPAIRED GLUCOSE TOLERANCE (ORAL) 12/27/2015 KATHLEEN CABRERA MD R Ot D64.9 ANEMIA, UNSPECIFIED 12/27/2015 KATHLEEN CABRERA MD R Ot E03.9 HYPOTHYROIDISM, UNSPECIFIED 12/27/2015 DEBORAH HALL, KATHLEEN R Ot R73.02 IMPAIRED GLUCOSE TOLERANCE (ORAL) 2016 DEBORAH HALL, KATHLEEN R Ot G89.18 OTHER ACUTE POSTPROCEDURAL PAIN 2016 DEBORAH HALL, KATHLEEN R Ot K59.00 CONSTIPATION, UNSPECIFIED 2016 DEBORAH HALL, KATHLEEN R Ot R11.2 NAUSEA WITH VOMITING, UNSPECIFIED 2016 DEBORAH HALL KATHLEEN R Ot Z96.651 PRESENCE OF RIGHT ARTIFICIAL KNEE JOINT 2016 DEBORAH HALL, KATHLEEN R Ot G89.18 OTHER ACUTE POSTPROCEDURAL PAIN 2016 DEBORAH HALL, KATHLEEN R Ot K59.00 CONSTIPATION, UNSPECIFIED 2016 DEBORAH HALL, KATHLEEN R Ot R11.2 NAUSEA WITH VOMITING, UNSPECIFIED 2016 DEBORAH HALL KATHLEEN R Ot Z96.651 PRESENCE OF RIGHT ARTIFICIAL KNEE JOINT 05/10/2016 DEBORAH HALL, KATHLEEN R Ot 784.42 DYSPHONIA 05/10/2016 DEBORAH HALL, KATHLEEN R Ot D64.9 ANEMIA, UNSPECIFIED 05/10/2016 KATHLEEN CABRERA MD Ot E03.9 HYPOTHYROIDISM, UNSPECIFIED 05/10/2016 KATHLEEN CABRERA MD Ot R73.02 IMPAIRED GLUCOSE TOLERANCE (ORAL) 05/10/2016 KATHLEEN CABRERA MD R Ot M89.8X6 OTHER SPECIFIED DISORDERS OF BONE, LOWER 05/14/2016 KATHLEEN CABRERA MD Ot M89.8X6 OTHER SPECIFIED DISORDERS OF BONE, LOWER 05/24/2016 JONEL LOW MD Ot 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 05/24/2016 JNOEL LOW MD Ot Z96.651 PRESENCE OF RIGHT [...] OF RIGHT ARTIFICIAL KNEE JOINT 08/07/2016 PEPPER MARTINEZP Ot S99.921A UNSPECIFIED INJURY OF RIGHT FOOT, [...] 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 08/26/2016 DEVANTE HALL, JONEL Mcguire Ot Z96.651 PRESENCE OF RIGHT ARTIFICIAL KNEE JOINT 08/31/2016 DEVANTE HALL, JONEL Mcguire Ot 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 08/31/2016 DEVANTE HALL, JONEL Mcguire Ot Z96.651 PRESENCE OF RIGHT ARTIFICIAL KNEE JOINT 12/10/2016 KATHLEEN CABRERA MD R Ot 784.42 DYSPHONIA 12/10/2016 KATHLEEN CARBERA MD R Ot D64.9 ANEMIA, UNSPECIFIED 12/10/2016 [...] E03.9 HYPOTHYROIDISM, UNSPECIFIED 12/19/2016 KATHLEEN CABRERA MD Ot R73.02 IMPAIRED GLUCOSE TOLERANCE (ORAL) 12/19/2016 [...] 02/11/2018 KATHLEEN CABRERA MD R Ot T84.89XA [facility] COMP OF INTERNAL ORTHOPEDIC PROSTH D 02/27/2018 NIYA CHAVEZP-C Ot J20.9 ACUTE BRONCHITIS, UNSPECIFIED 03/03/2018 KATHLEEN CABRERA MD R Ot G47.37 CENTRAL SLEEP APNEA IN CONDITIONS CLASSI 03/03/2018 KATHLEEN CABRERA MD R Ot R06.02 SHORTNESS OF BREATH 03/03/2018 KATHLEEN CABRERA MD R Ot R13.10 DYSPHAGIA, UNSPECIFIED 03/03/2018 KATHLEEN CABRERA MD R Ot R49.0 DYSPHONIA 03/03/2018 KATHLEEN CABRERA MD R Ot T84.89XA OTH COMP OF INTERNAL ORTHOPEDIC PROSTH D 03/18/2018 NIYA CHAVEZ-Christiano Ot J20.9 ACUTE BRONCHITIS, UNSPECIFIED 03/20/2018 KATHLEEN CABRERA MD R Ot 784.42 DYSPHONIA 03/20/2018 KATHLEEN CABREAR MD Ot D64.9 ANEMIA, UNSPECIFIED 03/20/2018 KATHLEEN CABRERA MD Ot E03.9 HYPOTHYROIDISM, UNSPECIFIED 03/20/2018 KATHLEEN CABRERA MD R Ot R73.02 IMPAIRED GLUCOSE TOLERANCE (ORAL) 03/20/2018 KATHLEEN CABRERA MD R Ot M89.8X6 OTHER SPECIFIED DISORDERS OF BONE, LOWER 03/20/2018 PEPPER MARTINEZ Ot S99.921A UNSPECIFIED INJURY OF RIGHT FOOT, INITIA 03/20/2018 PEPPER MARTINEZ Ot X58.XXXA EXPOSURE TO OTHER SPECIFIED FACTORS, INI 03/20/2018 PEPPER MARTINEZ Ot Y99.8 OTHER EXTERNAL CAUSE STATUS 03/20/2018 KATHLEEN CABRERA MD R Ot G47.37 CENTRAL SLEEP APNEA IN CONDITIONS CLASSI 03/20/2018 KATHLEEN CABRERA MD R Ot R06.02 SHORTNESS OF BREATH 03/20/2018 KATHLEEN CABRERA MD R Ot R13.10 DYSPHAGIA, UNSPECIFIED 03/20/2018 KATHLEEN CABRERA MD R Ot R49.0 DYSPHONIA 03/20/2018 KATHLEEN CABRERA MD R Ot T84.89XA OTH COMP OF INTERNAL ORTHOPEDIC PROSTH D 03/20/2018 NIYA CHAVEZ-Christiano Ot J20.9 ACUTE BRONCHITIS, UNSPECIFIED 03/20/2018 GABBIE AZUL MD Ot J20.9 ACUTE BRONCHITIS, UNSPECIFIED 03/20/2018 LATHA HALL, GABBIE Mcguire Ot J42 UNSPECIFIED CHRONIC BRONCHITIS 03/20/2018 GABBIE AZUL MD Ot R06.02 SHORTNESS OF BREATH 03/20/2018 GABBIE AZUL MD Ot Z79.52 DETENTION (CURRENT) USE OF SYSTEMIC STER 03/20/2018 GABBIE AZUL MD Ot Z79.82 FIELD CANE SCALER HELPER (CURRENT) USE OF ASPIRIN 03/20/2018 GABBIE AZUL MD Ot Z79.84 DETENTION (CURRENT) USE OF ORAL HYPOGLYC 03/20/2018 GABBIE [...] BREATH 03/23/2018 GABBIE AZUL MD Ot Z79.52 FIELD CANE SCALER HELPER (CURRENT) USE OF SYSTEMIC STER 03/23/2018 GABBIE AZUL MD Ot Z79.82 FIELD CANE SCALER HELPER (CURRENT) USE OF ASPIRIN 03/23/2018 GABBIE AZUL MD Ot Z79.84 DETENTION (CURRENT) USE OF ORAL HYPOGLYC 03/23/2018 GABBIE [...] J42 UNSPECIFIED CHRONIC BRONCHITIS 04/20/2018 GABBIE AZUL MD, Ot M47.816 SPONDYLOSIS W/O MYELOPATHY OR RADICULOPA 04/20/2018 GABBIE AZUL MD, Ot M51.36 OTHER INTERVERTEBRAL DISC DEGENERATION, 04/20/2018 GABBIE AZUL MD, Ot R06.02 SHORTNESS OF BREATH 04/20/2018 GABBIE AZUL MD Ot Z79.52 DETENTION (CURRENT) USE OF SYSTEMIC STER 04/20/2018 GABBIE AZUL MD Ot Z79.82 FIELD CANE SCALER HELPER (CURRENT) USE OF ASPIRIN 04/20/2018 GABBIE AZUL MD, Ot Z79.84 FIELD CANE SCALER HELPER (CURRENT) USE OF ORAL HYPOGLYC 04/20/2018 GABBIE AZUL MD, Ot Z82.49 FAMILY HX OF ISCHEM HEART DIS AND OTH DI 04/20/2018 GABBIE AZUL MD, Ot Z87.01 PERSONAL HISTORY OF PNEUMONIA (RECURRENT 04/20/2018 GABBIE AZUL MD, Ot Z87.19 PERSONAL HISTORY OF OTHER DISEASES OF TH 04/20/2018 GABBIE AZUL MD, Ot Z87.891 PERSONAL HISTORY OF NICOTINE DEPENDENCE 04/24/2018 KATHLEEN CABERRA MD Ot Z45.2 ENCOUNTER FOR ADJUSTMENT AND [...] LEG 06/25/2018 DAVID SINGH MD Ot Z79.51 FIELD CANE SCALER HELPER (CURRENT) USE OF INHALED STERO 06/25/2018 DAVID SINGH MD Ot Z79.82 DETENTION (CURRENT) USE OF ASPIRIN 06/25/2018 DAVID SINGH MD Ot Z79.84 FIELD CANE SCALER HELPER (CURRENT) USE OF ORAL HYPOGLYC 06/25/2018 DAVID [...] COUGH 08/17/2018 DAVID SINGH MD Ot Z79.51 DETENTION (CURRENT) USE OF INHALED STERO 08/17/2018 DAVID SINGH MD Ot Z79.82 DETENTION (CURRENT) USE OF ASPIRIN 08/17/2018 DAVID SINGH MD Ot Z79.84 DETENTION (CURRENT) USE OF ORAL HYPOGLYC 08/17/2018 DAVID [...] MD Ot R05 COUGH 08/18/2018 DAVID SINGH MD, Ot Z79.51 DETENTION (CURRENT) USE OF INHALED STERO 08/18/2018 DAVID SINGH MD Ot Z79.52 DETENTION (CURRENT) USE OF SYSTEMIC STER 08/18/2018 DAVID SINGH MD Ot Z79.82 FIELD CANE SCALER HELPER (CURRENT) USE OF ASPIRIN 08/18/2018 DAVID SINGH MD Ot Z79.84 FIELD CANE SCALER HELPER (CURRENT) USE OF ORAL HYPOGLYC 08/18/2018 DAVID SINGH MD Ot Z80.0 FAMILY HISTORY OF MALIGNANT NEOPLASM OF 08/18/2018 DAVID SINGH MD Ot Z82.49 FAMILY HX OF ISCHEM HEART DIS AND OTH DI 08/18/2018 DAVID SINGH MD Ot Z87.01 PERSONAL HISTORY OF PNEUMONIA (RECURRENT 08/18/2018 DAVID SINGH MD Ot Z87.19 PERSONAL HISTORY OF OTHER DISEASES OF TH 08/18/2018 DAVID SINGH MD Ot Z90.89 ACQUIRED ABSENCE OF OTHER ORGANS 08/18/2018 DAVID SINGH MD Ot Z96.651 PRESENCE OF RIGHT ARTIFICIAL KNEE JOINT 08/20/2018 DAVID SINGH MD Ot J40 BRONCHITIS, NOT SPECIFIED ACUTE OR CH 08/20/2018 DAVID SINGH MD Ot R05 COUGH 08/20/2018 DAVID SINGH MD Ot Z79.51 FIELD CANE SCALER HELPER (CURRENT) USE OF INHALED STERO 08/20/2018 DAVID SINGH MD Ot Z79.82 FIELD CANE SCALER HELPER (CURRENT) USE OF ASPIRIN 08/20/2018 DAVID SINGH MD Ot Z79.84 DETENTION (CURRENT) USE OF ORAL HYPOGLYC 08/20/2018 DAVID SINGH MD Ot Z80.0 FAMILY HISTORY OF MALIGNANT NEOPLASM OF 08/20/2018 DAVID SINGH MD Ot Z82.49 FAMILY HX OF ISCHEM HEART DIS AND OTH DI 08/20/2018 DAVID SINGH MD Ot Z87.01 PERSONAL HISTORY OF PNEUMONIA (RECURRENT 08/20/2018 DAVID SINGH MD Ot Z87.19 PERSONAL HISTORY OF OTHER DISEASES OF TH 08/20/2018 DAVID SINHG MD Ot Z96.651 PRESENCE OF RIGHT ARTIFICIAL KNEE JOINT 08/20/2018 DAVID SINGH MD Ot Z98.890 OTHER SPECIFIED POSTPROCEDURAL STATES 08/21/2018 DAVID SINGH MD Ot J40 BRONCHITIS, NOT SPECIFIED ACUTE OR CH 08/21/2018 DAVID SINGH MD Ot R05 COUGH 08/21/2018 DAVID SINGH MD Ot Z79.51 FIELD CANE SCALER HELPER (CURRENT) USE OF INHALED STERO 08/21/2018 DAVID SINGH MD Ot Z79.52 DETENTION (CURRENT) USE OF SYSTEMIC STER 08/21/2018 DAVID SINGH MD Ot Z79.82 FIELD CANE SCALER HELPER (CURRENT) USE OF ASPIRIN 08/21/2018 DAVID SINGH MD Ot Z79.84 FIELD CANE SCALER HELPER (CURRENT) USE OF ORAL HYPOGLYC 08/21/2018 DAVID [...] COUGH 08/23/2018 DAVID SINGH MD Ot Z79.51 DETENTION (CURRENT) USE OF INHALED STERO 08/23/2018 DAVID SINGH MD Ot Z79.82 DETENTION (CURRENT) USE OF ASPIRIN 08/23/2018 DAVID SINGH MD Ot Z79.84 DETENTION (CURRENT) USE OF ORAL HYPOGLYC 08/23/2018 DAVID SINGH MD Ot Z80.0 FAMILY HISTORY OF MALIGNANT NEOPLASM OF 08/23/2018 DAVID SINGH MD Ot Z82.49 FAMILY HX OF ISCHEM HEART DIS AND OTH DI 08/23/2018 DAVID SINGH MD, Ot Z87.01 PERSONAL HISTORY OF PNEUMONIA (RECURRENT 08/23/2018 DAVID SINGH MD, Ot Z87.19 PERSONAL HISTORY OF OTHER DISEASES OF TH 08/23/2018 DAVID SINGH MD Ot Z96.651 PRESENCE OF RIGHT ARTIFICIAL KNEE JOINT 08/23/2018 DAVID SINGH MD Ot Z98.890 OTHER SPECIFIED POSTPROCEDURAL STATES 09/02/2018 ROMERO MAGDALENO DO Ot 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 09/02/2018 ROMERO MAGDALENO DO Ot Z96.651 PRESENCE OF RIGHT ARTIFICIAL KNEE JOINT 10/19/2018 GIOVANNI SAUCEDA MD Ot J45.901 UNSPECIFIED ASTHMA WITH (ACUTE) EXACERBA 10/19/2018 GIOVANNI SAUCEDA MD Ot L29.9 PRURITUS, UNSPECIFIED 10/19/2018 GIOVANNI SAUCEDA MD Ot R19.7 DIARRHEA, UNSPECIFIED 10/19/2018 GIOVANNI SAUCEDA MD Ot Z79.51 DETENTION (CURRENT) USE OF INHALED STERO 10/19/2018 GIOVANNI SAUCEDA MD Ot Z79.52 FIELD CANE SCALER HELPER (CURRENT) USE OF SYSTEMIC STER 10/19/2018 GIOVANNI SAUCEDA MD Ot Z79.82 DETENTION (CURRENT) USE OF ASPIRIN 10/19/2018 GIOVANNI SAUCEDA MD Ot Z79.84 DETENTION (CURRENT) USE OF ORAL HYPOGLYC 10/19/2018 GIOVANNI SAUCEDA MD Ot Z80.0 FAMILY HISTORY OF MALIGNANT NEOPLASM OF 10/19/2018 GIOVANNI SAUCEDA MD Ot Z82.49 FAMILY HX OF ISCHEM HEART DIS AND OTH DI 10/19/2018 GIOVANNI SAUCEDA MD Ot Z87.01 PERSONAL HISTORY OF PNEUMONIA (RECURRENT 10/19/2018 GIOVANNI SAUCEDA MD Ot Z87.19 PERSONAL HISTORY OF OTHER DISEASES OF 10/19/2018 GIOVANNI SAUCEDA MD Ot Z98.890 OTHER SPECIFIED POSTPROCEDURAL STATES 10/22/2018 GIOVANNI SAUCEDA MD Ot J45.901 UNSPECIFIED ASTHMA WITH (ACUTE) EXACERBA 10/22/2018 GIOVANNI SAUCEDA MD, Ot L29.9 PRURITUS, UNSPECIFIED 10/22/2018 GIOVANNI SAUCEDA MD, Ot R19.7 DIARRHEA, UNSPECIFIED 10/22/2018 GIOVANNI SAUCEDA MD, Ot Z79.51 FIELD CANE SCALER HELPER (CURRENT) USE OF INHALED STERO 10/22/2018 GIOVANNI SAUCEDA MD Ot Z79.52 FIELD CANE SCALER HELPER (CURRENT) USE OF SYSTEMIC STER 10/22/2018 GIOVANNI SAUCEDA MD Ot Z79.82 DETENTION (CURRENT) USE OF ASPIRIN 10/22/2018 GIOVANNI SAUCEDA MD, Ot Z79.84 DETENTION (CURRENT) USE OF ORAL HYPOGLYC 10/22/2018 GIOVANNI SAUCEDA MD, Ot Z80.0 FAMILY HISTORY OF MALIGNANT NEOPLASM OF 10/22/2018 GIOVANNI SAUCEDA MD, Ot Z82.49 FAMILY HX OF ISCHEM HEART DIS AND OTH DI 10/22/2018 GIOVANNI SAUCEDA MD, Ot Z87.01 PERSONAL HISTORY OF PNEUMONIA (RECURRENT 10/22/2018 GIOVANNI SAUCEDA MD, Ot Z87.19 PERSONAL HISTORY OF OTHER DISEASES OF TH 10/22/2018 GIOVANNI SAUCEDA MD Ot Z98.890 OTHER SPECIFIED POSTPROCEDURAL STATES 11/05/2018 KATHLEEN CABRERA MD Ot E11.9 TYPE 2 DIABETES MELLITUS WITHOUT COMPLIC 11/05/2018 KATHLEEN CABRERA MD R Ot E78.2 MIXED HYPERLIPIDEMIA 11/05/2018 KATHLEEN CABRERA MD R Ot I10 ESSENTIAL (PRIMARY) HYPERTENSION 11/05/2018 KATHLEEN CABRERA MD R Ot R53.1 WEAKNESS 11/05/2018 KATHLEEN CABRERA MD R Ot R53.83 OTHER FATIGUE 11/24/2018 KATHLEEN CABRERA MD R Ot E11.9 TYPE 2 DIABETES MELLITUS WITHOUT COMPLIC 11/24/2018 KATHLEEN CABRERA MD R Ot E78.2 MIXED HYPERLIPIDEMIA 11/24/2018 KATHLEEN CABRERA MD R Ot I10 ESSENTIAL (PRIMARY) HYPERTENSION 11/24/2018 KATHLEEN CABRERA MD R Ot R53.1 WEAKNESS 11/24/2018 DEBORAH HALL, KATHLEEN R Ot R53.83 OTHER FATIGUE 03/05/2019 ROMERO MAGDALENO DO Ot 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 03/05/2019 ROMERO MAGDALENO DO Ot Z96.651 PRESENCE OF RIGHT ARTIFICIAL KNEE JOINT 03/18/2019 ROMERO MAGDALENO DO Ot 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 03/18/2019 ROMERO MAGDALENO DO Ot Z96.651 PRESENCE OF [...] Automated erythrocyte mean corpuscular hemoglobin concentration measurement (mass/volume) 32 g/dL 32-36 Automated erythrocyte distribution width ratio 15.0 % 10.0- 14.5 Automated blood platelet count (count/volume) 257 10*3/uL [...] Blood monocytes automated count (number/volume) 0.5 10*3 0.0- 1.0 Automated eosinophil count 0.1 10*3/uL 0.0-0.3 Automated [...] Serum or plasma aspartate aminotransferase measurement (enzymatic activity/volume) 23 U/L 5-34 Serum or plasma alanine aminotransferase measurement (enzymatic activity/volume) 20 U/L 0-55 Serum or plasma protein measurement (mass/volume) 6.2 g/dL 6.4-8.2 Serum or plasma albumin measurement (mass/volume) 3.9 g/dL 3.2-4.5 Clostridium difficile detection - 04/03/16 12:05 C DIFF MOLECULAR RESULT Positive for toxigenic C diff by DNA amplification [facility] CALL POSITIVES (F1 HELP) CALLED TO GERARDO STOUT 04/03/16 14:45 BY Mikey PAGAN [facility] Bacterial urine culture - 03/28/17 17:00 URINE CULTURE RESULTS <10,000/ML [facility] Complete blood count (CBC) with automated white [...] Automated erythrocyte mean corpuscular hemoglobin concentration measurement (mass/volume) 31 g/dL 32-36 Automated erythrocyte distribution width ratio 19.3 % 10.0- 14.5 Automated blood platelet count (count/volume) 132 10*3/uL [...] Blood monocytes automated count (number/volume) 0.6 10*3 0.0- 1.0 Automated eosinophil count 0.1 10*3/uL 0.0-0.3 Automated [...] Serum or plasma aspartate aminotransferase measurement (enzymatic activity/volume) 45 U/L 5-34 Serum or plasma alanine aminotransferase measurement (enzymatic activity/volume) 50 U/L 0-55 Serum or plasma protein measurement (mass/volume) 6.4 g/dL 6.4-8.2 Serum or plasma albumin measurement (mass/volume) 3.8 g/dL 3.2-4.5 Magnesium - 05/03/17 13:21 Magnesium 2.0 mg/dL 1.8-2.4 Serum or plasma creatine kinase measurement (enzymatic activity/volume) - 05/03/17 13:21 Serum or plasma creatine kinase measurement (enzymatic activity/volume) 74 U/L 29-168 Serum or plasma lithium measurement (moles/volume) - 05/03/17 13:21 BNP level 218.0 pg/mL <100.0 Serum or plasma creatine kinase MB measurement (enzymatic activity/volume) - 05/03/17 13:21 Serum or plasma creatine kinase MB measurement (enzymatic activity/volume) 1.8 ng/mL <6.6 Serum or plasma troponin i.cardiac measurement (mass/volume) - 05/03/17 13:21 Serum or plasma troponin i.cardiac measurement (mass/volume) < ng/mL <0.30 Complete blood count (CBC) with automated [...] Automated erythrocyte mean corpuscular hemoglobin concentration measurement (mass/volume) 32 g/dL 32-36 Automated erythrocyte distribution width ratio 16.8 % 10.0- 14.5 Automated blood platelet count (count/volume) 178 10*3/uL [...] Blood monocytes automated count (number/volume) 0.4 10*3 0.0- 1.0 Automated eosinophil count 0.2 10*3/uL 0.0-0.3 Automated blood basophil count (count/volume) 0.0 10*3/uL 0.0-0.1 Fibrin D-dimer FEU measurement in platelet poor plasma (mass/volume) - 03/20/18 19:18 Fibrin D-dimer FEU measurement in platelet [...] Serum or plasma aspartate aminotransferase measurement (enzymatic activity/volume) 21 U/L 5-34 Serum or plasma alanine aminotransferase measurement (enzymatic activity/volume) 20 U/L 0-55 Serum or plasma protein measurement (mass/volume) 5.6 g/dL 6.4-8.2 Serum or plasma albumin measurement (mass/volume) 3.6 g/dL 3.2-4.5 Serum or plasma C reactive protein measurement (mass/volume) - 03/20/18 19:18 Serum or plasma C reactive protein measurement (mass/volume) 2.39 mg/dL 0.00-0.50 Serum or plasma lithium measurement (moles/volume) - 03/20/18 19:18 BNP level 26.9 pg/mL <100.0 Stool bacteria identification by culture - 04/14/18 13:00 FREE TEXT EXTERNAL MANY NR QUANTITY OF GROWTH . [facility] FREE TEXT ENTRY 2 RML REPORTED SENSITIVITY 04/18 13:05 NR Stool bacteria identification by culture SEE COMMEN [facility] FREE TEXT ENTRY 3 CIPROFLOXACIN:INTERMEDIATE BY E-TEST [facility] RML Sensitivity Panel - 04/14/18 13:00 Trimethoprim/sulfamethoxazole susceptibility test by minimum inhibitoryconcentration R [facility] Ampicillin susceptibility test by minimum inhibitory concentration > [facility] Stool bacteria identification by culture - 05/01/18 09:20 QUANTITY OF GROWTH . [facility] Stool bacteria identification by culture SEE COMMEN [facility] Complete blood count (CBC) with automated white [...] Automated erythrocyte mean corpuscular hemoglobin concentration measurement (mass/volume) 31 g/dL 32-36 Automated erythrocyte distribution width ratio 17.6 % 10.0- 14.5 Automated blood platelet count (count/volume) 234 10*3/uL [...] Blood monocytes automated count (number/volume) 0.4 10*3 0.0- 1.0 Automated eosinophil count 0.2 10*3/uL 0.0-0.3 Automated [...] Serum or plasma aspartate aminotransferase measurement (enzymatic activity/volume) 16 U/L 5-34 Serum or plasma alanine aminotransferase measurement (enzymatic activity/volume) 19 U/L 0-55 Serum or plasma protein measurement (mass/volume) 6.6 g/dL 6.4-8.2 Serum or plasma albumin measurement (mass/volume) 3.8 g/dL 3.2-4.5 CALCIUM CORRECTED 9.5 mg/dL 8.5-10.1 Serum or plasma C reactive protein measurement (mass/volume) - 06/23/18 07:25 Serum or plasma C reactive protein measurement (mass/volume) 1.32 mg/dL 0.00-0.50 Complete urinalysis with reflex to culture - 10/19/18 15:02 Urine color determination YELLOW NRG Urine clarity determination CLEAR NRG Urine pH measurement by test strip 5 5-9 Specific gravity of urine by test strip 1.010 1.016-1.022 Urine protein assay by test strip, semi-quantitative NEGATIVE NEGATIVE Urine glucose detection by automated test strip NEGATIVE NEGATIVE Erythrocytes detection in urine sediment by light microscopy NEGATIVE NEGATIVE Urine ketones detection by automated test strip NEGATIVE NEGATIVE Urine nitrite detection by test strip NEGATIVE NEGATIVE Urine total bilirubin detection by test strip NEGATIVE NEGATIVE Urine urobilinogen measurement by automated test strip (mass/volume) NORMAL NORMAL Urine leukocyte esterase detection by dipstick NEGATIVE NEGATIVE Automated urine sediment erythrocyte count by microscopy (number/high power field) NONE NRG Automated urine sediment leukocyte count by microscopy (number/high power field) RARE NRG Bacteria detection in urine sediment by light microscopy NEGATIVE NRG Squamous epithelial cells detection in urine sediment by light microscopy 0-2 NRG Crystals detection in urine sediment by light microscopy NONE NRG Casts detection in urine sediment by light microscopy NONE NRG Mucus detection in urine sediment by light microscopy NEGATIVE NRG Complete urinalysis with reflex to culture NO NRG Complete blood count (CBC) with automated white blood cell (WBC) differential - 10/19/18 16:00 Blood leukocytes automated count (number/volume) 12.2 10*3/uL 4.3-11.0 Blood erythrocytes automated count (number/volume) 4.63 10*6/uL 4.35-5.85 Venous blood hemoglobin measurement (mass/volume) 10.8 g/dL 11.5-16.0 Blood hematocrit (volume fraction) 35 % 35-52 Automated erythrocyte mean corpuscular volume 76 [foz_us] 80-99 Automated erythrocyte mean corpuscular hemoglobin (mass per erythrocyte) 23 pg 25-34 Automated erythrocyte mean corpuscular hemoglobin concentration measurement (mass/volume) 31 g/dL 32-36 Automated erythrocyte distribution width ratio 17.4 % 10.0- 14.5 Automated blood platelet count (count/volume) 242 10*3/uL 130-400 Automated blood platelet mean volume measurement 10.8 [foz_us] 7.4-10.4 Automated blood neutrophils/100 leukocytes 75 % 42-75 Automated blood lymphocytes/100 leukocytes 18 % 12-44 Blood monocytes/100 leukocytes 6 % 0-12 Automated blood eosinophils/100 leukocytes 0 % 0-10 Automated blood basophils/100 leukocytes 0 % 0-10 Blood neutrophils automated count (number/volume) 9.2 10*3 1.8-7.8 Blood lymphocytes automated count (number/volume) 2.2 10*3 1.0-4.0 Blood monocytes automated count (number/volume) 0.8 10*3 0.0- 1.0 Automated eosinophil count 0.0 10*3/uL 0.0-0.3 Automated blood basophil count (count/volume) 0.0 10*3/uL 0.0-0.1 Comprehensive metabolic panel - 10/19/18 16:00 Serum or plasma sodium measurement (moles/volume) 140 mmol/L 135-145 Serum or plasma potassium measurement (moles/volume) 4.1 mmol/L 3.6-5.0 Serum or plasma chloride measurement (moles/volume) 105 mmol/L 98-107 Carbon dioxide 24 mmol/L 21-32 Serum or plasma anion gap determination (moles/volume) 11 mmol/L 5-14 Serum or plasma urea nitrogen measurement (mass/volume) 18 mg/dL 7-18 Serum or plasma creatinine measurement (mass/volume) 0.84 mg/dL 0.60-1.30 Serum or plasma urea nitrogen/creatinine mass ratio 21 NRG Serum or plasma creatinine measurement with calculation of estimated glomerular filtration rate > NRG Serum or plasma glucose measurement (mass/volume) 170 mg/dL 70-105 Serum or plasma calcium measurement (mass/volume) 9.6 mg/dL 8.5-10.1 Serum or plasma total bilirubin measurement (mass/volume) 0.8 mg/dL 0.1-1.0 Serum or plasma alkaline phosphatase measurement (enzymatic activity/volume) 78 U/L 40-136 Serum or plasma aspartate aminotransferase measurement (enzymatic activity/volume) 13 U/L 5-34 Serum or plasma alanine aminotransferase measurement (enzymatic activity/volume) 15 U/L 0-55 Serum or plasma protein measurement (mass/volume) 6.4 g/dL 6.4-8.2 Serum or plasma albumin measurement (mass/volume) 3.9 g/dL 3.2-4.5 CALCIUM CORRECTED 9.7 mg/dL 8.5-10.1 Magnesium - 10/19/18 16:00 Magnesium 1.6 mg/dL 1.8-2.4 Serum or plasma C reactive protein measurement (mass/volume) - 10/19/18 16:00 Serum or plasma C reactive protein measurement (mass/volume) 0.46 mg/dL 0.00-0.50 Comprehensive metabolic panel - 11/03/18 08:30 Serum or plasma sodium measurement (moles/volume) 138 mmol/L 135-145 Serum or plasma potassium measurement (moles/volume) 4.1 mmol/L 3.6-5.0 Serum or plasma chloride measurement (moles/volume) 104 mmol/L 98-107 Carbon dioxide 21 mmol/L 21-32 Serum or plasma anion gap determination (moles/volume) 13 mmol/L 5-14 Serum or plasma urea nitrogen measurement (mass/volume) 12 mg/dL 7-18 Serum or plasma creatinine measurement (mass/volume) 0.80 mg/dL 0.60-1.30 Serum or plasma urea nitrogen/creatinine mass ratio 15 NRG Serum or plasma creatinine measurement with calculation of estimated glomerular filtration rate > NRG Serum or plasma glucose measurement (mass/volume) 169 mg/dL 70-105 Serum or plasma calcium measurement (mass/volume) 9.7 mg/dL 8.5-10.1 Serum or plasma total bilirubin measurement (mass/volume) 1.1 mg/dL 0.1-1.0 Serum or plasma alkaline phosphatase measurement (enzymatic activity/volume) 76 U/L 40-136 Serum or plasma aspartate aminotransferase measurement (enzymatic activity/volume) 21 U/L 5-34 Serum or plasma alanine aminotransferase measurement (enzymatic activity/volume) 15 U/L 0-55 Serum or plasma protein measurement (mass/volume) 6.7 g/dL 6.4-8.2 Serum or plasma albumin measurement (mass/volume) 4.0 g/dL 3.2-4.5 CALCIUM CORRECTED 9.7 mg/dL 8.5-10.1 Lipid 1996 panel - 11/03/18 08:30 Serum or plasma triglyceride measurement (mass/volume) 129 mg/dL <150 Serum or plasma cholesterol measurement (mass/volume) 149 mg/dL < 200 Serum or plasma cholesterol in HDL measurement (mass/volume) 42 mg/dL 40-60 Cholesterol in LDL [mass/volume] in serum or plasma by direct assay 89 mg/dL 1-129 Serum or plasma cholesterol in VLDL measurement (mass/volume) 26 mg/dL 5-40 THYROID STIMULATING HORMONE - 11/03/18 08:30 THYROID STIMULATING HORMONE 1.65 u[iU]/mL 0.35-4.94 Complete blood count (CBC) with automated white blood cell (WBC) differential - 11/03/18 10:11 Blood leukocytes automated count (number/volume) 10.2 10*3/uL 4.3-11.0 Blood erythrocytes automated count (number/volume) 5.23 10*6/uL 4.35-5.85 Venous blood hemoglobin measurement (mass/volume) 12.2 g/dL 11.5-16.0 Blood hematocrit (volume fraction) 39 % 35-52 Automated erythrocyte mean corpuscular volume 75 [foz_us] 80-99 Automated erythrocyte mean corpuscular hemoglobin (mass per erythrocyte) 23 pg 25-34 Automated erythrocyte mean corpuscular hemoglobin concentration measurement (mass/volume) 31 g/dL 32-36 Automated erythrocyte distribution width ratio 17.6 % 10.0- 14.5 Automated blood platelet count (count/volume) 189 10*3/uL 130-400 Automated blood platelet mean volume measurement 11.0 [foz_us] 7.4-10.4 Automated blood neutrophils/100 leukocytes 75 % 42-75 Automated blood lymphocytes/100 leukocytes 17 % 12-44 Blood monocytes/100 leukocytes 7 % 0-12 Automated blood eosinophils/100 leukocytes 1 % 0-10 Automated blood basophils/100 leukocytes 0 % 0-10 Blood neutrophils automated count (number/volume) 7.7 10*3 1.8-7.8 Blood lymphocytes automated count (number/volume) 1.7 10*3 1.0-4.0 Blood monocytes automated count (number/volume) 0.7 10*3 0.0- 1.0 Automated eosinophil count 0.1 10*3/uL 0.0-0.3 Automated blood basophil count (count/volume) 0.0 10*3/uL 0.0-0.1 Hemoglobin A1c - 11/03/18 10:11 Blood hemoglobin A1C measurement (mass/volume) 7.8 % 4.0-5.6 MEAN BLOOD GLUCOSE 177 % <=126 Encounters ACCT No. Visit Date/Time Discharge Status Pt. Type Provider Facility Loc./Unit Complaint [id number] 03/28/2019 09:28:00 03/28/2019 11:56:00 DIS Emergency NASREEN BLOUNT DO Via [facility] ER FALL [id number] 03/26/2019 16:15:00 03/26/2019 23:59:59 CLS Outpatient ROMERO MAGDALENO DO [facility] REHAB R TOTAL KNEE REVISION [id number] 11/03/2018 09:07:00 11/03/2018 23:59:59 CLS Outpatient DEBORAH HALL, KATHLEEN Koroma [facility] LAB E78.2 [id number] 10/19/2018 14:17:00 10/19/2018 18:35:00 DIS Emergency GIOVANNI SAUCEDA MD [facility] ER WEAK;SHAKY;DEHYDRATED [id number] 09/02/2018 13:30:00 09/02/2018 14:16:00 DIS Outpatient ROMERO MAGDALENO DO [facility] REHAB R TKA PAIN [id number] 08/18/2018 08:32:00 08/18/2018 09:36:00 DIS Emergency DAVID SINGH MD [facility] ER COUGH;RUNNY NOSE [id number] 08/17/2018 12:44:00 08/17/2018 14:20:00 DIS Emergency DAVID SINGH MD [facility] ER COLD LIKE SYMPTOMS [id number] 06/23/2018 06:04:00 06/23/2018 08:59:00 DIS Outpatient SAMANTHA HALL, DAVID Salter [facility] ER LEG PAIN [id number] 05/25/2018 00:46:00 05/25/2018 23:59:59 CLS Preadmit KATHLEEN CABRERA MD Via [facility] [id number] 05/01/2018 09:34:00 05/01/2018 23:59:59 CLS Outpatient CONNIE OLGUIN APRN [facility] LAB V12.09 [id number] 04/14/2018 09:44:00 04/24/2018 00:01:00 DIS Outpatient KATHLEEN CABRERA MD [facility] [id number] 03/20/2018 10:52:00 03/20/2018 23:59:59 CLS Outpatient KATHLEEN CABRERA MD [facility] RAD CHRONIC ALEXIS LOW BACK PAIN [id number] 03/20/2018 18:16:00 03/20/2018 21:20:00 DIS Outpatient GABBIE AZUL MD [facility] ER SOB [id number] 02/26/2018 17:40:00 02/26/2018 23:59:59 CLS Outpatient NIYA CHAVEZ-Christiano [facility] RAD COUGH [id number] 02/10/2018 14:22:00 02/10/2018 23:59:59 CLS Outpatient KATHLEEN CABRERA MD [facility] RAD HX KNEE REPLACEMENT,KNEE PAIN,KNEE SWELLING [id number] 09/10/2017 11:14:00 10/08/2017 15:33:00 DIS Outpatient HUMBLE GRAYSON MD [facility] REHAB INCOMPLETE BLADDER EMPTYING [id number] 05/25/2017 02:39:00 05/25/2017 23:59:59 CLS Preadmit KATHLEEN CABRERA MD [facility] REHAB R TOTAL KNEE [id number] 05/08/2017 10:28:00 05/24/2017 00:01:00 DIS Outpatient KATHLEEN CABRERA MD [facility] REHAB R TOTAL KNEE [id number] 05/03/2017 12:53:00 05/03/2017 12:53:00 CAN Preadmit NASREEN BLOUNT DO [facility] ER SOA [id number] 03/05/2017 10:04:00 04/01/2017 08:58:00 DIS [facility]R IT BAND SYNDROME [id number] 03/28/2017 19:27:00 03/28/2017 23:59:59 CLS Outpatient CONNIE OLGUIN APRN [facility] LAB ACUTE CYSTITIS WITH HEMATURIA [id number] 01/22/2017 11:26:00 02/26/2017 14:59:00 DIS Outpatient PER HALL, FLAVIA [facility] [id number] 12/30/2016 14:02:00 12/30/2016 23:59:59 CLS Outpatient KATHLEEN CABRERA MD [facility] RAD M25.561, G89.29 CHRONIC KNEE PAIN [id number] 12/30/2016 08:00:00 12/30/2016 23:59:59 CLS Outpatient KATHLEEN CABRERA MD [facility] RAD M25.561 G89.29 [id number] 12/27/2016 15:30:00 12/27/2016 23:59:59 CLS Outpatient PEPPER MARTINEZ [facility] RAD ACUTE RT KNEE PAIN [id number] 08/26/2016 00:15:00 08/26/2016 23:59:59 CLS Preadmit JONEL LOW MD [facility] REHAB S/P R TOTAL KNEE [id number] 08/08/2016 12:51:00 08/25/2016 00:01:00 DIS Outpatient [facility] [id number] 08/06/2016 13:16:00 08/06/2016 23:59:59 CLS Outpatient PEPPER MARTINEZ [facility] RAD INJURY OF GREAT TOE RT INITIAL ENCOUNTER,E959.7 [id number] 05/22/2016 10:21:00 05/24/2016 17:00:00 DIS Outpatient DEVANTE HALL, JONEL Mcguire [facility] REHAB S/P R TOTAL KNEE [id number] 04/25/2016 07:08:00 04/25/2016 23:59:59 CLS Outpatient KATHLEEN CABRERA MD [facility] RAD PAINFUL POSTERIOR LEG [id number] 04/01/2016 11:55:00 2016 17:26:00 DIS Inpatient KATHLEEN CABRERA MD [facility] 4TH SEVERE PAIN RT KNEE,NAUSEA,VOMITING [id number] 12/13/2015 14:28:00 12/13/2015 23:59:59 CLS Outpatient KATHLEEN CABRERA MD [facility] LAB HYPOTHYROIDISM,ANEMIA [id number] 05/11/2015 13:55:00 05/15/2015 10:23:00 DIS Inpatient KATHLEEN CABRERA MD [facility] 4TH PAIN ABD,PELVIS [id number] 12/06/2014 11:22:00 12/06/2014 23:59:59 CLS Outpatient KATHLEEN CABRERA MD [facility] RAD HOARSENESS, LEISION [id number] 07/14/2014 11:19:00 07/14/2014 23:59:59 CLS Outpatient RIC FLOREZ MD [facility] RAD [id number] 02/11/2014 12:43:00 02/13/2014 10:40:00 DIS Inpatient KATHLEEN CABRERA MD Via [address] [id number] 10/19/2013 18:45:00 10/21/2013 11:00:00 DIS Inpatient KATHLEEN CABRERA MD Via [address] [id number] 10/16/2013 13:56:00 10/18/2013 09:30:00 DIS Inpatient KATHLEEN CABRERA MD Via [address] [id number] 10/06/2013 16:55:00 10/15/2013 09:35:00 DIS Outpatient KATHLEEN CABRERA MD [facility] [id number] 09/27/2013 15:40:00 10/05/2013 10:15:00 DIS Inpatient KATHLEEN CABRERA MD Via [address] [id number] 09/01/2013 15:25:00 09/05/2013 14:15:00 DIS Inpatient BIJAN MIGUEL DO Via [address] [id number] 07/28/2013 00:43:00 08/02/2013 13:25:00 DIS Inpatient KATHLEEN CABRERA MD Via [address] ABD PAIN/VOMITING [id number] 07/15/2013 16:50:00 07/21/2013 13:45:00 DIS Inpatient KATHLEEN CABRERA MD Via [address] CONSTIPATION [id number] 07/15/2013 00:31:00 07/15/2013 01:59:00 DIS Emergency MINE DONASREEN [facility] ER STOMACH PAIN [id number] 04/15/2013 08:31:00 04/15/2013 23:59:59 CLS Outpatient KATHLEEN CABRERA MD [facility] RAD DYSPHAGIA [id number] 02/20/2013 14:44:00 02/20/2013 17:53:00 DIS Emergency NASREEN BLOUNT DO [facility] ER FALL [id number] 02/15/2013 16:32:00 02/19/2013 12:10:00 DIS Inpatient KATHLEEN CABRERA MD Via [address] ABD PAIN [id number] 11/12/2012 07:30:00 Document Registration [id number] 10/20/2012 10:05:00 Document Registration [id number] 07/27/2012 22:28:00 Document Registration [id number] 12/07/2014 05:33:40 ACT Document Registration
[2019-03-30] MEDS ORDERED: LACTATED RINGERS 1,000 ML IV ONE (12:09)
[2019-03-30 12:30] LABS: BASOPHILS % (AUTO) 0 % (0-10); EOSINOPHILS % (AUTO) 0 % (0-10); HEMATOCRIT 40 % (35-52); LYMPHOCYTES # (AUTO) 0.8 X 10^3 (1.0-4.0); LYMPHOCYTES % (AUTO) 6 % (12-44); MEAN CORPUSCULAR HEMOGLOBIN 27 PG (25-34); MEAN CORPUSCULAR HGB CONC 32 G/DL (32-36); MEAN CORPUSCULAR VOLUME 82 FL (80-99); MEAN PLATELET VOLUME 10.5 FL (7.4-10.4); MONOCYTES # (AUTO) 0.8 X 10^3 (0.0-1.0); MONOCYTES % (AUTO) 7 % (0-12); NEUTROPHILS # (AUTO) 10.9 X 10^3 (1.8-7.8); NEUTROPHILS % (AUTO) 87 % (42-75); PLATELET COUNT 165 10^3/uL (130-400); WHITE BLOOD COUNT 12.5 10^3/uL (4.3-11.0)
[2019-03-30 12:42] LABS: FIBRIN DEGRADATION PRODUCTS 3.08 UG/ML (0.00-0.49); INR 1.3 (0.8-1.4); PROTHROMBIN TIME PATIENT 16.4 SEC (12.2-14.7)
[2019-03-30 12:44] LABS: NEUTROPHILS % (MANUAL) 95 %
[2019-03-30 12:45] LABS: ANISOCYTOSIS SLIGHT; BAND NEUTROPHILS 0 %; BASOPHILS % (MANUAL) 0 %; EOSINOPHILS % (MANUAL) 0 %; LYMPHOCYTES % (MANUAL) 3 %; MONOCYTES % (MANUAL) 2 %
[2019-03-30 12:46] LABS: ALBUMIN 3.7 GM/DL (3.2-4.5); BILIRUBIN,TOTAL 2.1 MG/DL (0.1-1.0); CALCIUM 9.4 MG/DL (8.5-10.1); CREATININE SERUM 1.26 MG/DL (0.60-1.30); POTASSIUM 3.7 MMOL/L (3.6-5.0); TOTAL PROTEIN 6.9 GM/DL (6.4-8.2)
--- NOTE | 2019-03-30 12:47 | ED Neurological Problem ---
General Chief Complaint: Altered Mental Status Stated Complaint: CONFUSION Nursing Triage Note: ams Nursing Sepsis Screen: No Definite Risk Source: patient, family Exam Limitations: no limitations History of Present Illness Date Seen by Provider: Mar 30, 2019 Time Seen by Provider: 12:04 Initial Comments Here with report of confusion and altered mental status since yesterday. Had recent falls and was seen a few days ago for that. Complains of right leg pain. She is on oxycodone and a variety of other sedating medicines. She has not had any medicine since yesterday except for one oxycodone on the way here but she vomited that up. Has had nausea and vomiting. She is not able to eat or drink well. Decreased urination. Low-grade fever noted. Does have a cough. No focal weakness or deficits but reports that she has been pretty confused over the last 24 hours. That may be a little bit better now. Still has word searching and somewhat slurred speech. Last known well time yesterday morning Timing/Duration: 24 hours Severity: moderate Associated Symptoms: confusion, fatigue, fever/chills; No muscle spasms; nausea/vomiting; No numbness in legs/feet, No paresthesia, No seizures; slurred speech, trouble walking, weakness Allergies and Home Medications Allergies Coded Allergies: No Known Drug Allergies (Unverified , 02/11/14) Home Medications Acetaminophen 500 Mg Tablet, 500-1,000 MG PO Q4H PRN for PAIN-MILD, (Reported) Amoxicillin 500 Mg Tablet, 2,000 MG PO DAILY PRN for 1 HOUR PRIOR TO DENTAL SIRENA T., (Reported) Ascorbate Calcium 500 Mg Tablet, 500 MG PO TID, (Reported) Celecoxib 200 Mg Capsule, 200 MG PO BID, (Reported) Citalopram Hydrobromide 20 Mg Tablet, 20 MG PO HS, (Reported) Diclofenac Sodium 100 Gm Gel..gram., TOP BID PRN for LEG PAIN, (Reported) Dicyclomine HCl 10 Mg Capsule, 10 MG PO QID PRN for STOMACH UPSET, (Reported) Docusate Sodium 100 Mg Capsule, 100 MG PO DAILY PRN for CONSTIPATION-1ST LINE, (Reported) Ferrous Sulfate 325 Mg Tablet, 325 MG PO DAILY, (Reported) Fexofenadine HCl 180 Mg Tablet, 180 MG PO DAILY PRN for ALLERGIES, (Reported) Fluticasone/Vilanterol 1 Each Blst.w.dev, 1 PUFF INH DAILY PRN for SHORTNESS OF BREATH, (Reported) Gabapentin 600 Mg Tablet, 1,200 MG PO TID, (Reported) TAKES 2 (600MG) TABLETS Hydrochlorothiazide 25 Mg Tablet, 25 MG PO DAILY, (Reported) Hydromorphone HCl 4 Mg Tablet, 4 MG PO Q6H PRN for BREAKTHROUGH PAIN, (Reported) Lactobacillus Combo No.10 1 Each Capsule, 1 CAP PO DAILY, (Reported) Loperamide HCl 2 Mg Tablet, PO UD PRN for DIARRHEA, (Reported) Lorazepam 2 Mg Tablet, 2 MG PO Q6H PRN for ANXIETY, (Reported) Oxybutynin Chloride 10 Mg Tab.er.24, 10 MG PO HS, (Reported) Oxycodone HCl 5 Mg Tablet, 5-10 MG PO EVERY 4-6 HOURS PRN for PAIN-SEVERE, (Reported) Pantoprazole Sodium 40 Mg Tablet.dr, 40 MG PO DAILY PRN for HEARTBURN, (Reported) Polyethylene Glycol 3350 119 Gm Powder, 17 GM PO DAILY, (Reported) Pramipexole Di-HCl 0.5 Mg Tablet, 1 MG PO TID, (Reported) TAKES 2 (0.5MG) TABLETS Simvastatin 40 Mg Tablet, 40 MG PO HS, (Reported) Sitagliptin Phosphate 100 Mg Tablet, 100 MG PO DAILY, (Reported) Trazodone HCl 50 Mg Tablet, 100 MG PO HS, (Reported) TAKES 2 (50MG) TABLETS Patient Home Medication List Home Medication List Reviewed: Yes Review of Systems Review of Systems Constitutional: see HPI; No chills; fever Eyes: No Symptoms Reported Ears, Nose, Mouth, Throat: no symptoms reported Respiratory: cough, short of breath Cardiovascular: no symptoms reported Gastrointestinal: nausea, vomiting Genitourinary: no symptoms reported Musculoskeletal: see HPI Skin: no symptoms reported Psychiatric/Neurological: See HPI All Other Systems Reviewed Negative Unless Noted: Yes Past Kxohfyc-Epggex-Fzljnl Hx Past Med/Social Hx: Reviewed Nursing Past Med/Soc Hx Patient Social History Alcohol Use: Rarely Uses Recreational Drug Use: No Smoking Status: Never a Smoker 2nd Hand Smoke Exposure: No Recent Foreign Travel: No Contact w/Someone Who Travel: No Recent Infectious Disease Expo: No Recent Hopitalizations: Yes (january 24 right knee replacement, SEPT FOR 5 DAYS (LUNG ISSUES)) Physical Abuse: No Sexual Abuse: No Immunizations Up To Date Tetanus Booster (TDap): More than 5yrs Date of Pneumonia Vaccine: Oct 04, 2011 Date of Influenza Vaccine: Jul 06, 2013 Seasonal Allergies Seasonal Allergies: No Past Medical History Surgeries: Yes Abdominal, Gallbladder, Orthopedic Respiratory: Yes Asthma, Pneumonia Cardiac: Yes High Cholesterol Neurological: Yes (CHIARI MALFORMATION surgically fixed) Reproductive Disorders: No Female Reproductive Disorders: Denies Sexually Transmitted Disease: No HIV/AIDS: No Genitourinary: No Gastrointestinal: Yes ("COMPLETE ABD RECONSTRUCTION" 2009. CHRONIC ABDOMINAL PAIN) Chronic Constipation, Chronic Diarrhea Musculoskeletal: Yes (CHRONIC GENERALIZED PAIN--NARCOTIC DEPENDENT) Arthritis, Chronic Back Pain Endocrine: Yes (MASS LT THYROID REMOVED 01/01/2013) HEENT: Yes Cataract Loss of Vision: Denies Hearing Impairment: Denies Cancer: No Psychosocial: No Integumentary: No Blood Disorders: No Adverse Reaction/Blood Tranf: No Family Medical History Reviewed Nursing Family Hx Cancer 03 FATHER (PANCREATIC, PASSED AT 65 FROM THIS) Cataract 03 MOTHER Dementia 03 MOTHER Family history: Arthritis 03 MOTHER Family history: Cardiovascular disease 03 MOTHER (HIGH CHOLESTEROL, [place] ARTERIES 2 TIMES) Hearing loss 03 MOTHER Hypercholesterolemia 03 MOTHER Cancer Physical Exam Vital Signs Capillary Refill : Less Than 3 Seconds Height, Weight, BMI Height: 5'4.00" Weight: 226lbs. 0.0oz. 102.794127un; 34.7 BMI Method:Stated General Appearance: WD/WN, no apparent distress HEENT: PERRL/EOMI, pharynx normal Neck: full range of motion, supple Respiratory: no accessory muscle use, crackles (right base), other (somewhat to) Cardiovascular: regular rate, rhythm, no murmur Peripheral Pulses: 2+ Dorsalis Pedis (R), 2+ Left Dors-Pedis (L), 2+ Radial Pulses (R), 2+ Radial Pulses (L) Gastrointestinal: non tender, soft Back: normal inspection, no CVA tenderness, no vertebral tenderness Extremities: normal range of motion, no pedal edema, no calf tenderness Neurologic/Psychiatric: alert, other (somewhat confused and slightly slurred speech) Crainal Nerves: PERRL, abnormal speech Coordination/Gait: normal finger to nose Motor/Sensory: no motor deficit, no sensory deficit, no pronator drift Skin: normal color, warm/dry Focused Exam Lactate Level 03/30/19 12:14: Lactic Acid Level 1.47 Lactic Acid Level Laboratory Tests Test 03/30/19 12:14 Lactic Acid Level 1.47 MMOL/L (0.50-2.00) Progress/Results/Core Measures Results/Orders Lab Results Laboratory Tests Test 03/30/19 12:14 03/30/19 12:23 03/30/19 14:18 03/30/19 15:42 Range/Units White Blood Count 12.5 H 4.3-11.0 10^3/uL Red Blood Count 4.89 4.35-5.85 10^6/uL Hemoglobin 13.0 11.5-16.0 G/DL Hematocrit 40 35-52 % Mean Corpuscular Volume 82 80-99 FL Mean Corpuscular Hemoglobin 27 25-34 PG Mean Corpuscular Hemoglobin Concent 32 32-36 G/DL Red Cell Distribution Width 19.0 H 10.0-14.5 % Platelet Count 165 130-400 10^3/uL Mean Platelet Volume 10.5 H 7.4-10.4 FL Neutrophils (%) (Auto) 87 H 42-75 % Lymphocytes (%) (Auto) 6 L 12-44 % Monocytes (%) (Auto) 7 0-12 % Eosinophils (%) (Auto) 0 0-10 % Basophils (%) (Auto) 0 0-10 % Neutrophils # (Auto) 10.9 H 1.8-7.8 X 10^3 Lymphocytes # (Auto) 0.8 L 1.0-4.0 X 10^3 Monocytes # (Auto) 0.8 0.0-1.0 X 10^3 Eosinophils # (Auto) 0.0 0.0-0.3 10^3/uL Basophils # (Auto) 0.0 0.0-0.1 10^3/uL Neutrophils % (Manual) 95 % Lymphocytes % (Manual) 3 % Monocytes % (Manual) 2 % Eosinophils % (Manual) 0 % Basophils % (Manual) 0 % Band Neutrophils 0 % Anisocytosis SLIGHT Blood Morphology Comment Prothrombin Time 16.4 H 12.2-14.7 SEC INR Comment 1.3 0.8-1.4 Activated Partial Thromboplast Time 32 24-35 SEC D-Dimer 3.08 H 0.00-0.49 UG/ML Sodium Level 135 135-145 MMOL/L Potassium Level 3.7 3.6-5.0 MMOL/L Chloride Level 101 98-107 MMOL/L Carbon Dioxide Level 23 21-32 MMOL/L Anion Gap 11 5-14 MMOL/L Blood Urea Nitrogen 19 H 7-18 MG/DL Creatinine 1.26 0.60-1.30 MG/DL Estimat Glomerular Filtration Rate 42 BUN/Creatinine Ratio 15 Glucose Level 217 H 70-105 MG/DL Lactic Acid Level 1.47 0.50-2.00 MMOL/L Calcium Level 9.4 8.5-10.1 MG/DL Corrected Calcium 9.6 8.5-10.1 MG/DL Total Bilirubin 2.1 H 0.1-1.0 MG/DL Aspartate Amino Transf (AST/SGOT) 16 5-34 U/L Alanine Aminotransferase (ALT/SGPT) 23 0-55 U/L Alkaline Phosphatase 189 H 40-136 U/L C-Reactive Protein High Sensitivity 31.70 H 0.00-0.50 MG/DL B-Type Natriuretic Peptide 148.8 H <100.0 PG/ML Total Protein 6.9 6.4-8.2 GM/DL Albumin 3.7 3.2-4.5 GM/DL Lipase 5 L 8-78 U/L Glucometer 209 H 70-110 MG/DL Urine Color YELLOW Urine Clarity VERY CLOUDY H Urine pH 5 5-9 Urine Specific [place] 1.020 1.016-1.022 Urine Protein 3+ H NEGATIVE Urine Glucose (UA) NEGATIVE NEGATIVE Urine Ketones NEGATIVE NEGATIVE Urine Nitrite POSITIVE H NEGATIVE Urine Bilirubin NEGATIVE NEGATIVE Urine Urobilinogen NORMAL NORMAL MG/DL Urine Leukocyte Esterase 3+ H NEGATIVE Urine RBC (Auto) 5+ H NEGATIVE Urine RBC 2-5 H /HPF Urine WBC TNTC H /HPF Urine Squamous Epithelial Cells NONE /HPF Urine Crystals NONE /LPF Urine Bacteria LARGE H /HPF Urine Casts NONE /LPF Urine Mucus NEGATIVE /LPF Urine Culture Indicated CULTURE PENDING Lab Scanned Report Referred Lab Report [id number] Micro Results Microbiology 03/30/19 Blood Culture - Final, Complete Escherichia coli 03/30/19 Blood Culture - Preliminary, Resulted Escherichia coli 03/30/19 Urine Culture - Final, Complete Escherichia coli My Orders Orders - DAVID SINGH MD Cbc With Automated Diff (03/30/19 12:09) Comprehensive Metabolic Panel (03/30/19 12:09) Blood Culture (03/30/19 12:09) Urinalysis (03/30/19 12:09) Urine Culture (03/30/19 12:09) Protime With Inr (03/30/19 12:09) Partial Thromboplastin Time (03/30/19 12:09) Chest 1 View, Ap/Pa Only (03/30/19 12:09) Ed Iv/Invasive Line Start (03/30/19 12:09) Vital Signs Adult Sepsis Patie Q15M (03/30/19 12:09) O2 (03/30/19 12:09) Remove Rings In Anticipation O (03/30/19 12:09) Lactic Acid Analyzer (03/30/19 12:09) Lactated Ringers (Lr 1000 Ml Iv Solution (03/30/19 12:09) Fibrin Degradation Products (03/30/19 12:09) Accucheck Stat ONCE (03/30/19 12:09) Vital Signs Stroke Patient Q15M (03/30/19 12:09) Ct Head Wo-R/O Stroke (03/30/19 12:09) Intake & Output 06,14,22 (03/30/19 12:09) Monitor-Rhythm Ecg Trace Only (03/30/19 12:09) Dysphagia Screening Tool (03/30/19 12:09) Lipid Panel (03/31/19 06:00) Ekg Tracing (03/30/19 12:16) Manual Differential (03/30/19 12:14) Us Venous Lower Ext Rt (03/30/19 13:01) Lipase (03/30/19 13:12) Hs C Reactive Protein (03/30/19 13:12) Ct Angio Chest W (03/30/19 13:58) BNP (03/30/19 14:00) Iohexol Injection (Omnipaque 350 Mg/Ml 1 (03/30/19 14:15) Received Contrast (Hold Metformin- Contr (03/30/19 14:15) Ns (Ivpb) (Sodium Chloride 0.9% Ivpb Bag (03/30/19 14:15) Ceftriaxone For Iv Use (Rocephin For I (03/30/19 14:45) Ed Iv/Invasive Line Start (03/30/19 15:33) Ns Iv 500 Ml (Sodium Chloride 0.9%) (03/30/19 15:33) Medications Given in ED Vital Signs/I&O Blood Pressure Mean: 98 FSBG Bedside Testing Finger Stick Blood Glucose: 209 Blood Glucose Action Taken: Dr singh notified Progress Progress Note : Progress Note Seen and evaluated. IV, labs, EKG, chest x-ray, UA, blood cultures and lactic acid ordered. Stroke protocol ordered as well. Stroke scale 0 as screened by me. No indication of TPA as this is greater than 3 hours and low number on scale. Monitor patient. 1300: Patient is d-dimer was grossly elevated at greater than 3. Does have chronic right leg pain which may be the source and has had recent fall. She is slightly tachypnea, although not hypoxic. No findings consistent with large vessel occlusion. I did discuss with radiology regarding further imaging as her creatinine is slightly bumped and her GFR is down from previous. We will get the CT is ordered and then ultimately ultrasound right lower extremity with CT angiogram of the chest ordered. We will rule out pulmonary embolism, DVT and other significant bleed within the head. 1445: Patient noted to have quite significant urinary tract infection. Rocephin 1 g IV ordered. Blood cultures and lactic acid are drawn and lactic acid is negative. Normal saline 500 mm bolus ordered. 1534: I did discuss the case with Dr. Bingham. CT angiogram negative for PE. Appears that this is related to urinary tract infection. He has requested a renal ultrasound which is ordered. Admit, inpatient status. Patient and family agree with plan. Initial ECG Impression Date: Mar 30, 2019 Initial ECG Impression Time: 12:09 Initial ECG Rate: 78 Initial ECG Rhythm: Normal Sinus Initial ECG Comparisson: No Previous ECG Available Comment Sinus rhythm with normal axis. Flat T waves throughout. No evidence of ST elevation VT. No previous available for comparison. Interpreted by me. Diagnostic Imaging Diagonstic Imaging: CT Plain Films/CT/US/NM/MRI: head Comments [facility], [place] NAME: ANA LUJAN Ga [facility] REC#: [id number] PT STATUS: REG ER : 1950 PHYSICIAN: DAVID SINGH MD ADMIT DATE: 03/30/19/ER Draft Date of Exam:03/30/19 CT HEAD WO-R/O STROKE PROCEDURE: CT head wo r/o stroke. TECHNIQUE: Multiple contiguous axial images were obtained through the brain without the use of intravenous contrast. Auto Exposure Controls were utilized during the CT exam to meet ALARA standards for radiation dose reduction. INDICATION: Slurred speech, confusion. Correlation is made with prior head CT from 07/18/2013. Ventricles and sulci are stable in appearance. No sulcal effacement or midline shift is identified. No acute intra-axial or extra-axial hemorrhage is detected. Cisterns are patent. Visualized paranasal sinuses are clear. IMPRESSION: No acute intracranial process is detected. Dictated on workstation # [id number] Dict: 03/30/19 1328 Trans: 03/30/19 1339 [facility] [id number] Interpreted by: AURORA HASTINGS MD Electronically signed by: Diagonstic Imaging: Xray Plain Films/CT/US/NM/MRI: chest Comments [facility] [place] [place] NAME: ANA LUJAN REC#: [id number] PT STATUS: REG ER : 1950 PHYSICIAN: DAVID SINGH MD ADMIT DATE: 03/30/19/ER Draft Date of Exam:03/30/19 CHEST 1 VIEW, AP/PA ONLY PATIENT HISTORY: Altered mental status. TECHNIQUE: Frontal view of the chest. COMPARISON: 08/17/2018. FINDINGS: Lung volumes are low. There is mild cardiomegaly with central vascular congestion. No pneumothorax or pleural effusion is seen. No acute osseous abnormality is seen. There is aortic atherosclerosis. A catheter is noted with the tip at the right atrium. This appears stable. IMPRESSION: 1. Mild cardiomegaly with mild central vascular congestion. Dictated on workstation # [id number] Dict: 03/30/19 1358 Trans: 03/30/19 1402 [id number] Interpreted by: SALVADOR PATTERSON MD Electronically signed by: Diagonstic Imaging: Ultrasound Plain Films/CT/US/NM/MRI: leg Comments [facility] [place] [place] NAME: ANA LUJAN REC#: [id number] PT STATUS: REG ER : 1950 PHYSICIAN: DAVID SINGH MD ADMIT DATE: 03/30/19/ER Draft Date of Exam:03/30/19 US VENOUS LOWER EXT RT PROCEDURE: US right lower extremity venous. TECHNIQUE: Multiple Real-time grayscale images were obtained over the right lower extremity in various projections. Additional spectral analysis and color Doppler duplex images were also obtained. INDICATION: Right knee pain and ankle swelling. Patient also has an elevated d-dimer. FINDINGS: There is no evidence of a right lower extremity DVT. The right lower extremity deep venous system shows normal compressibility with normal response to augmentation and Valsalva. No fluid collection or mass is seen. IMPRESSION: No evidence of right lower extremity DVT. Dictated on workstation # [id number] Dict: 03/30/19 1352 Trans: 03/30/[address] [place] [address] [id number] Interpreted by: AURORA HASTINGS MD Electronically signed by: Diagonstic Imaging: CT Plain Films/CT/US/NM/MRI: chest Comments [facility] [place] NAME: ANA LUJAN [facility] REC#: [id number] PT STATUS: REG ER : 1950 PHYSICIAN: DAVID SINGH MD ADMIT DATE: 03/30/19/ER Draft Date of Exam:03/30/19 CT ANGIO CHEST W PROCEDURE: CT angiography of the chest with contrast. TECHNIQUE: Multiple contiguous axial images were obtained through the chest after uneventful bolus administration of intravenous contrast. 3D reconstructed CTA MIP acquisitions were also performed. Auto Exposure Controls were utilized during the CT exam to meet ALARA standards for radiation dose reduction. INDICATION: Shortness of air and confusion. COMPARISON: Correlation is made with prior CT angiogram of the chest performed 03/20/2018. FINDINGS: Evaluation of the pulmonary arterial system is without thromboembolism. No definite filling defects are seen within central, lobar or segmental branches. The thoracic aorta is normal in caliber. There is no dissection. Trace pericardial fluid is seen. No pleural effusions are identified. Minimal subsegmental atelectasis in the right middle lobe and lingula is seen. No pulmonary infiltrates, nodules or masses are identified. Upper abdomen is unremarkable. IMPRESSION: 1. No evidence of pulmonary embolism or thoracic aortic dissection. 2. Bibasilar subsegmental atelectasis. Dictated on workstation # [id number] Dict: 03/30/19 1452 Trans: 03/30/19 1459 [facility] [id number] Interpreted by: AURORA HASTINGS MD Electronically signed by: Diagonsdaniel Imaging: Ultrasound Plain Films/CT/US/NM/MRI: other Comments [facility] [place] NAME: ANA LUJAN [facility] REC#: [id number] PT STATUS: ADM IN : 1950 PHYSICIAN: DAVID SINGH MD ADMIT DATE: 03/30/19 Draft Date of Exam:03/30/19 US RENAL BILATERAL [id number] PROCEDURE: US Renal Bilateral. TECHNIQUE: Multiple real-time grayscale images were obtained over the kidneys in various projections bilaterally. INDICATION: Urinary tract infection. COMPARISON: None. FINDINGS: Both kidneys are normal in size. The right kidney measures 14 cm in length and the left is 11 cm. The cortical thickness and the cortical medullary differentiation is well maintained. There is no evidence of calculi, concerning mass lesion or hydronephrosis. Incidental note of potential hepatic steatosis. The urinary bladder is normally filled without wall thickening. Ureteral jets are not seen on this exam, although this is likely due to lack of peristalsis during imaging. IMPRESSION: 1. No hydronephrosis or renal atrophy. 2. Normal sonographic appearance of the urinary bladder. 3. Incidental note of potential diffuse hepatic steatosis. Dictated on workstation # [id number] Dict: 03/30/19 1627 Trans: 03/30/19 1635 [facility] [id number] Interpreted by: JOSEY GREEN MD Electronically signed by: Departure Communication (Admissions) Time/Spoke to Admitting Phy: 15:34 Impression Primary Impression: Urinary tract infection Qualified Codes: N30.00 - Acute cystitis without hematuria Additional Impression: Altered mental status Qualified Codes: R41.82 - Altered mental status, unspecified Disposition: 09 ADMITTED INPATIENT Condition: Stable (ERASED) Admissions Decision to Admit Reason: Admit from ER (General) Decision to Admit/Date: Mar 30, 2019 Time/Decision to Admit Time: 15:34 Departure-Patient Inst. Referrals: ROMERO MAGDALENO DO (PCP/Family) Primary Care Physician DAVID SINGH MD Mar 30, 2019 12:47
--- NOTE | 2019-03-30 12:55 | NUR ---
p ox 90 with good tracing. pt dozing off. says she uses c pap at home. no acute sighns of dyspnea noted.
--- NOTE | 2019-03-30 12:55 | NUR ---
i applied 3/n/c o2.
--- NOTE | 2019-03-30 13:08 | NUR ---
pt remains alert gcs 15. remains in the room. pt watching tv and talking to about all the shootings. pt denies chest and abd pain. denies nausea and no v/d noted in er visit thus far. pt denies dyspnea and no acute sighns of dyspnea noted thought resp may be a little shallow nonlabored. pt laying on left side where she is most comfortable. bolus 1/2 completed. no slurres speach or word salad or other speach impairment noted. pt anderson well. bp machine is 128/48 ausc hr 72 reg ausc resp 24 normal. recheck temp is 98.6 p ox 3/n/c is 94. tele shows sr 70. pt only pain c/o is right leg rating 6.
--- NOTE | 2019-03-30 13:39 | Diagnostic Imaging Report ---
PROCEDURE: CT head wo r/o stroke. TECHNIQUE: Multiple contiguous axial images were obtained through the brain without the use of intravenous contrast. Auto Exposure Controls were utilized during the CT exam to meet ALARA standards for radiation dose reduction. INDICATION: Slurred speech, confusion. Correlation is made with prior head CT from 07/18/2013. Ventricles and sulci are stable in appearance. No sulcal effacement or midline shift is identified. No acute intra-axial or extra-axial hemorrhage is detected. Cisterns are patent. Visualized paranasal sinuses are clear. IMPRESSION: No acute intracranial process is detected. Dictated by: Dictated on workstation # [id number]
--- NOTE | 2019-03-30 13:50 | NUR ---
pt back from testing. pt alert gcs 15. remains in the room. pt denies chest pain. denies abd pain. c/o nausea and no v/d noted in er visit thus far. pt denies dyspnea and no acute sighns of dyspnea noted. neuro check unremarkeable. pt anderson well. pt requested and received socks. bolus 3/4 done and now on pump. tele shows sr 74.bp machine is 130/62 ausc hr 72 reg ausc resp 24 shallow nonlabored. recheck temp 98.7 p ox 3/n/c is 97.
--- NOTE | 2019-03-30 13:56 | Diagnostic Imaging Report ---
PROCEDURE: US right lower extremity venous. TECHNIQUE: Multiple Real-time grayscale images were obtained over the right lower extremity in various projections. Additional spectral analysis and color Doppler duplex images were also obtained. INDICATION: Right knee pain and ankle swelling. Patient also has an elevated d-dimer. FINDINGS: There is no evidence of a right lower extremity DVT. The right lower extremity deep venous system shows normal compressibility with normal response to augmentation and Valsalva. No fluid collection or mass is seen. IMPRESSION: No evidence of right lower extremity DVT. Dictated by: Dictated on workstation # [id number]
--- NOTE | 2019-03-30 13:58 | NUR ---
i am in room finishing a reeval on pt . pt started to have trouble annunciating words. notified.
--- NOTE | 2019-03-30 14:03 | Diagnostic Imaging Report ---
PATIENT HISTORY: Altered mental status. TECHNIQUE: Frontal view of the chest. COMPARISON: 08/17/2018. FINDINGS: Lung volumes are low. There is mild cardiomegaly with central vascular congestion. No pneumothorax or pleural effusion is seen. No acute osseous abnormality is seen. There is aortic atherosclerosis. A catheter is noted with the tip at the right atrium. This appears stable. IMPRESSION: 1. Mild cardiomegaly with mild central vascular congestion. Dictated by: Dictated on workstation # [id number]
[2019-03-30] MEDS ORDERED: HOLD METFORMIN - RECEIVED CONTRAST 20 ML VIAL IV SCH (14:15)
[2019-03-30] MEDS ORDERED: IOHEXOL 350 MG/ML 150 ML (OMNIPAQUE 350) VIAL IV ONE (14:15)
[2019-03-30] MEDS ORDERED: NS 100 ML (IVPB) BAG IV ONE (14:15)
--- NOTE | 2019-03-30 14:18 | NUR ---
cath ua by me w/o problems and ua to lab by me. pt bolus completed.
[2019-03-30 14:26] LABS: BILIRUBIN,URINE NEGATIVE (NEGATIVE); CLARITY,URINE VERY CLOUDY; COLOR,URINE YELLOW; GLUCOSE, URINE (UA) NEGATIVE (NEGATIVE); KETONES,URINE NEGATIVE (NEGATIVE); LEUKOCYTE ESTERASE ,URINE 3+ (NEGATIVE); NITRITE,URINE POSITIVE (NEGATIVE); PH,URINE 5 (5-9); PROTEIN,URINE 3+ (NEGATIVE); UROBILINOGEN,URINE NORMAL (NORMAL)
[2019-03-30 14:35] LABS: BACTERIA,URINE LARGE /HPF; WBC,URINE TNTC /HPF
--- NOTE | 2019-03-30 14:43 | NUR ---
someone else is doing rocephin.
[2019-03-30] MEDS ORDERED: cefTRIAXone FOR IV USE 1,000 MG in WATER (STERILE) FOR INJECTION 10 ML IV ONE (14:45)
--- NOTE | 2019-03-30 14:59 | Diagnostic Imaging Report ---
PROCEDURE: CT angiography of the chest with contrast. TECHNIQUE: Multiple contiguous axial images were obtained through the chest after uneventful bolus administration of intravenous contrast. 3D reconstructed CTA MIP acquisitions were also performed. Auto Exposure Controls were utilized during the CT exam to meet ALARA standards for radiation dose reduction. INDICATION: Shortness of air and confusion. COMPARISON: Correlation is made with prior CT angiogram of the chest performed 03/20/2018. FINDINGS: Evaluation of the pulmonary arterial system is without thromboembolism. No definite filling defects are seen within central, lobar or segmental branches. The thoracic aorta is normal in caliber. There is no dissection. Trace pericardial fluid is seen. No pleural effusions are identified. Minimal subsegmental atelectasis in the right middle lobe and lingula is seen. No pulmonary infiltrates, nodules or masses are identified. Upper abdomen is unremarkable. IMPRESSION: 1. No evidence of pulmonary embolism or thoracic aortic dissection. 2. Bibasilar subsegmental atelectasis. Dictated by: Dictated on workstation # [id number]
[2019-03-30] MEDS ORDERED: NS IV 500 ML 500 ML IV ONE (15:33)
--- NOTE | 2019-03-30 16:07 | NUR ---
i have been in another room with conscious sedation x 1 hr. pt going for another test now. pt needs a 500 ml ns bolus.
--- OUTSIDE RECORDS SUMMARY | 2019-03-30 16:11 | XMS REPORT | Encounter Summary ---
Author Author [facility] Organization [facility] Address Unknown Phone Unavailable Care Team Providers Care Wood Engraver Name Role Phone Adolfo Cardenas MD PCP Reason for Visit * Reason Comments Emesis Patient presents with nausea and voimiting x1. Patient recently completed treatment for c diff. Encounter Details Care Team Description Date Type Department Tee Chester MD [address] [place], [place] [id number] Diarrhea, unspecified type (Primary Dx); Chronic pain of right knee 11/30/2018 Emergency [facility] [id number] [place] [address] Social History Date Tobacco Use Types Packs/Day [...] through Care Everywhere.* DIARRHEA, UNK CAUSE (ADULT) (TAJIK) documented in this encounter Medications at Time [...] MD - 11/30/2018 4:52 PM CDT 11/30/2018 [facility] History Chief Complaint Patient presents with Emesis [...] see if its resolved-pt gets care at [facility]-on high volume status and brought to [facility] Past Medical History: Diagnosis Date Chronic [...] Negative Ketones Urine Negative Negative mg/dL Specific [place], UA >=1.030 1.001 - 1.030 Hemoglobin Urine Negative Negative PH Urine 5.0 5.0 - 8.0 Protein Urine Qual Negative Negative mg/dL Urobilinogen Urine Negative Negative EU/dL Nitrite Urine Negative Negative Leukocyte Esterase Negative Negative DIAGNOSIS Problem List Items Addressed This Visit Digestive Diarrhea - Primary Other Visit Diagnoses Chronic pain of right knee FOLLOW UP Adolfo Cardenas MD [address] [facility] [id number] As needed, If symptoms worsen Discussed with [...] Specific >=1.030 1.001 - 1.030 [facility] [place], UA [facility] Hemoglobin Negative Negative [facility] Urine [facility] PH Urine 5.0 5.0 - 8.0 [facility] Protein Urine Negative Negative mg/dL [facility] Qual [facility] Urobilinogen Negative Negative EU/dL [facility] Urine [facility] Nitrite Urine Negative Negative [facility] Leukocyte Negative Negative [facility] Esterase [facility] Specimen Clean Voided Urine Performing Organization Address City/[facility] Phone Number [facility] [address] [place] [address] * Lipase (11/30/2018 5:30 PM CDT) Lipase 44 23 - 300 IU/L [facility] Specimen Blood Performing Organization Address City/[facility] Phone Number [facility] [id number] [place] [phone] * Comprehensive Metabolic Panel (11/30/2018 5:30 PM CDT) Sodium 136 133 - 147 MEQ/L [facility] Potassium 4.7 3.5 - 5.3 MEQ/L [facility] Chloride 102 96 - 112 MEQ/L [facility] Carbon Dioxide 24 20 - 32 MEQ/L [facility] Anion Gap 10 5 - 17 [facility] Calcium 9.8 8.4 - 10.5 mg/dL [facility] Glucose 159 (H) 70 - 100 mg/dL [facility] Protein Total 6.5 6.0 - 8.2 g/dL [facility] Serum [facility] Albumin 3.9 3.5 - 5.0 g/dL [facility] Alkaline 91 42 - 140 IU/L [facility] Phosphatase [facility] Alanine 24 0 - 34 IU/L [facility] Aminotransferas [facility] e Aspartate 26 15 - 46 IU/L [facility] Aminotransferas [facility] e Bilirubin Total 1.0 0.2 - 1.3 mg/dL [facility] Blood Urea 22 7 - 26 mg/dL [facility] Nitrogen [facility] Creatinine 0.7 0.4 - 1.1 mg/dL [facility] eGFR Female AA 100 60 - 200 [facility] mL/min/1.73sq m [facility] eGFR Female 84 60 - 200 [facility] Non-AA mL/min/1.73sq m [facility] Specimen Blood Performing Organization Address City/State/Zipcode Phone Number [facility] [address] [place] [address] * CBC and Diff (manual diff if necessary) (11/30/2018 5:30 PM CDT) WBC 9.80 4.00 - 11.00 TH/uL [facility] RBC 4.79 4.00 - 5.00 MIL/uL [facility] Hemoglobin 11.4 (L) 12.0 - 15.0 g/dL [facility] Hematocrit 37 36 - 45 % [facility] MCV 78 (L) 80 - 99 fL [facility] MCH 24 (L) 27 - 34 pg [facility] MCHC 31 (L) 32 - 36 % [facility] RDW 17.3 (H) 9.0 - 14.5 % [facility] Platelet Count 233 140 - 400 TH/uL [facility] MPV 10.5 9.4 - 12.3 fL [facility] Nucleated RBCs 0 0 - 0 /100 [facility] % Neutrophils 73 45 - 78 % [facility] %Lymphocytes 19 15 - 47 % [facility] %Monocytes 5 0 - 12 % [facility] %Eosinophils 1 0 - 7 % [facility] %Basophils 0 0 - 2 % [facility] % Imm Grans 1 0 - 1 % [facility] # Granulocytes 7.26 (H) 1.70 - 6.80 TH/uL [facility] # Lymphocytes 1.84 1.00 - 3.30 TH/uL [facility] # Monocytes 0.52 0.20 - 0.90 TH/uL [facility] # Eosinophils 0.14 0.00 - 0.40 TH/uL [facility] # Basophils 0.04 0.00 - 0.10 TH/uL [facility] Specimen Blood Performing Organization Address City/State/Zipcode Phone Number [facility] [address] [place] [address] documented in this encounter Visit Diagnoses Diagnosis [...]
--- OUTSIDE RECORDS SUMMARY | 2019-03-30 16:11 | XMS REPORT | Clinical Summary ---
Author Author [facility] Organization [facility] Address Unknown Phone Unavailable Care Team Providers Care Manager Van Name Role Phone Adolfo Cardenas MD PCP [...] Overview: Added automatically from request for surgery [id number] Gastroesophageal reflux disease 11/18/2017 Overview: Overview: Added automatically from request for surgery [id number] Hepatic steatosis 10/30/2017 Overview: Overview: Identified on [facility] at [facility] on 10/26/2017 L ast Assessment & Plan: Identified on CT at [facility] 10/26/17, LFTs normal on admission - Recommend [...] Dates Group Medicare MEDICARE MEDICARE xxxxxxxxxxx 2017-P [place] PART A B resent [place], [place] COMMERCIAL-NONCONTRACTED MISC xxxxxxxxxx 2017-P COMMERCIAL resent NONCONTRAC [place] Advance Directives Patient Pathology Secretary 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
--- OUTSIDE RECORDS SUMMARY | 2019-03-30 16:12 | XMS REPORT | Encounter Summary ---
Author Author [facility] Address Unknown Phone Unavailable Care Team Providers Care Senior Investment Analyst Name Role Phone Adolfo Cardenas MD PCP [...] Description Date Type Department Valdo Park MD [address] [place], [place] [id number] Anastasia Kaba [address] [place], [place] [address] [place] [address] [place], [place] [address] Alejo Mancini DO [address] [place] [address] [phone] Shortness of breath (Primary Dx); Dyspnea, unspecified type; Obesity, unspecified classification, unspecified obesity type, unspecified whether serious comorbidity present 03/26/2018 [facility] 03/30/2018 [address] [place], [place] [address] Social History Date Tobacco Use Types Packs/Day [...] in this encounter Discharge Summaries * Alejo Mancini, - 03/30/2018 1:25 PM CDT [facility] Summary Patient Name: Micki Kelley Account No: [id number] Date of : 1950 Date of Admission: [...] activity as tolerated Scheduled Follow Up Appointments/Studies ([facility] Providers): No future appointments. Additional Discharge [...] Hepatic steatosis and probable hepatomegaly. READING SITE: [facility] Xr Chest Single View Frontal Result [...] greater than 30 minutes. Alejo Mancini DO [facility] Please page through physician paging. . documented in this encounter Discharge Instructions * Attachments The following attachments cannot be sent through Care Everywhere.* Activity Tips, Diabetes (Rwandan) * Diabetes and Heart Disease (Rwandan) * Diabetes, Long-Term Complications (Rwandan) * Diarrhea, Treating (Rwandan) * Metformin tablets (Rwandan) * GEMFIBROZIL (SWEDISH) * Strength Training, Understanding (Rwandan) * SALMONELLA GASTROENTERITIS (ADULT) (SWEDISH) documented in this encounter Medications at Time [...] Mancini DO - 03/29/2018 11:52 AM CDT [facility] Hospitalist - Progress Note Patient Name: Micki Kelley Account No: [id number] Date of : 1950 Date of Admission: [...] with the performing provider), current inpatient medications, oracle webcenter consultant notes, support s taff notes, prior [...] outpatient Hepatic steatosis Identified on CT at [facility] 10/26/17, LFTs normal on admission - Recommend weight loss Follow up with HARRY Diarrhea Dx salmonella in October, had diarrhea since Had colonoscopy outpatient ID consulted as GI pathogen + salmonella but likely carrier state D/w Dr. Peralta Stool culture ordered No antibiotics at this time See my orders for additional details regarding this patients treatment plan. Room: [address] [place] [address] Diet: Diet-Low Fat/Chol, 2gm Na, Consistent Carbohydrate [...] in water, prochlorperazine, zolpidem Alejo Mancini DO [facility] Please page through physician paging. . * Helen Tello, DESK SERGEANT - 03/29/2018 10:34 AM CDT 6 MINUTE WALK Patient Name: Micki Kelley CPI: [id number] Date: March 29, 2018 Patient Active Problem [...] Mancini DO - 03/28/2018 8:52 AM CDT [facility] Hospitalist - Progress Note Patient Name: Micki Kelley Account No: [id number] Date of : 1950 Date of Admission: [...] with the performing provider), current inpatient medications, oracle webcenter consultant notes, support s taff notes, prior [...] outpatient Hepatic steatosis Identified on CT at [facility] 10/26/17, LFTs normal on admission - Recommend weight loss Follow up with HARRY Diarrhea Dx salmonella in October, had diarrhea since Had colonoscopy outpatient ID consulted as GI pathogen + salmonella See my orders for additional details regarding this patients treatment plan. Room: [address] [place] [address] Diet: Diet-Low Fat/Chol, 2gm Na, Consistent Carbohydrate [...] in water, prochlorperazine, zolpidem Alejo Mancini DO [facility] Please page through physician paging. . * Juan Pyle MD - 03/27/2018 3:43 PM CDT [facility] - [facility] Note Patient Name: Micki Kelley Account No: [id number] Date of : 1950 Date of Admission: [...] results (as indicated), current inpatient medications and shipping support notes with pertainent findings noted within the assessment/plan. Assessment/Plan Ms. Micki Kelley is a 67 y.o. female with chronic pain secondary to abdominal adhesions (follows with pain management, left anterior chest port), partial thy roidectomy (undergoing monthly thyroid studies for maintenance), NIDDM2, hyperte nsion, hyperlipidemia who presented to [facility] from the pain clinic on 03/26/18 [...] She was evaluated i n ED at [facility] in October, noted to have [...] cascade Hepatic steatosis Identified on CT at [facility] 10/26/17, LFTs normal on admission - Recommend weight loss Diarrhea - recent salmonella diagnosis and abx for that about 2 mos ago - continued diarrhea w/ elevated pct - stool panel pending See my orders for additional details regarding this patients treatment plan. Room: [address] [place] [address] Diet: Diet-Low Fat/Chol, 2gm Na, Consistent Carbohydrate [...] in water, prochlorperazine, zolpidem Juan Pyle MD [facility] Please page through physician paging. . * Last Roman, BURRER HAND-INSOLVENCY PRACTITIONER - 03/26/2018 5:48 PM CDT Respiratory Care Services Initial Consultation Note Name: Micki Kelley CPI: [id number] Micki Kelley was evaluated per RATE Consultation [...] mg 20 mg Intravenous Once Anastasia Kaba , gabapentin (NEURONTIN) capsule 600 mg 600 mg Oral TID Andrea Olguin NP gemfibrozil (LOPID) tablet 600 mg 600 mg Oral BID AC Andrea Olguin NP glucagon (GLUCAGEN) injection 1 mg 1 mg Intramuscular PRN Andrea Olguin NP Or glucagon (GLUCAGEN) injection 1 mg 1 mg Subcutaneous PRN Andrea Olguin NP heparin (porcine) 5,000 unit/mL injection 5,000 Units 5,000 Units Subcutane ous Q8H Andrea Richard, PULLER OVER insulin lispro (HumaLOG) injection 2-7 Units 2-7 Units Subcutaneous 4 times daily before meals and nightly Andrea Andrepool, PULLER OVER ipratropium-albuterol (DUO-NEB) 0.5-3 mg/3 mL nebulizer solution 3 mL 3 mL Inhalation 4x Daily PRN Anastasia Kaba DO magnesium sulfate IVPB 4 gram (premix) 4 g Intravenous PRN Andrea Namo l, PULLER OVER mirabegron (MYRBETRIQ) ER tablet 50 mg 50 mg Oral Daily Andrea Andrepool, PULLER OVER oxybutynin (DITROPAN) tablet 5 mg 5 mg Oral BID Andrea Andrepool, PULLER OVER pantoprazole (PROTONIX) EC tablet 40 mg 40 mg Oral Daily Andrea Andrepool, PULLER OVER potassium chloride (KAYCIEL) 20 mEq/15 mL solution 20-60 mEq 20-60 mEq Oral PRN Andreaschuyler Andrepool, PULLER OVER potassium chloride (KLOR-CON) CR tablet 20-60 mEq 20-60 mEq Oral PRN Andrea Andrepool, PULLER OVER potassium chloride 20 mEq in 100 mL IVPB 20 mEq Intravenous PRN Andrea Monroe erpool, PULLER OVER pramipexole (MIRAPEX) tablet 0.125 mg 0.125 mg Oral BID Andrea Richard, PULLER OVER pravastatin (PRAVACHOL) tablet 80 mg 80 mg Oral Nightly Andrea Andrepool, PULLER OVER prochlorperazine (COMPAZINE) injection 5 mg 5 mg Intravenous Q4H PRN Valdo Park MD zolpidem (AMBIEN) tablet 5 mg 5 mg Oral Nightly PRN Danielle Gray PharmD Physical Assessment The patient's has the following [...] Not Applicable Associated attestation - Anastasia Kaba - 03/26/2018 6:13 PM CDT Attestation error documented in this encounter H&P Notes * Andrea Olguin NP - 03/26/2018 4:48 PM CDT [facility] Hospitalist - History & Physical Patient Name: Micki Kelley Account No: [id number] Date of : 1950 Date of Admission: [...] matthews), NIDDM2, hypertension, hyperlipidemia who presented to [facility] from the pain clinic on 03/26/18 [...] S he was evaluated in ED at [facility] in October, noted to have [...] obtained yet. She presented to ED in [facility] on Wednesday 03/21, has CT which was [...] results (as indicated), ECG, current inpatient medications, shipping support not es, prior admission/outpatient notes, prior [...] cascade Hepatic steatosis Identified on CT at [facility] 10/26/17, LFTs normal on admission [...] ent as noted above. Andrea Olguin NP [facility] Please page through physician paging. . Associated attestation - Anastasia Kaba - 03/26/2018 6:13 PM CDT [facility] Hospitalist - History & Physical Patient Name: Micki Kelley Account No: [id number] Date of : 1950 Date of Admission: 03/26/2018 12:46 PM [facility] Hospitalist - Progress Note Patient Name: Micki Kelley Account No: [id number] Date of : 1950 Date of Admission: 03/26/2018 12:46 PM PURCHASE ORDER CHECKER Hospitalist Attestation: I personally interviewed and examined [...] heparin Code Status: Full Code Anastasia Sendy [facility] [phone] Electronically signed by Anastasia Kaba DO 03/26/2018 6:03 PM cc: Adolfo Cardenas MD documented in this encounter Consult Notes * Leonid Peralta MD - 03/29/2018 11:14 AM CDT This is a 67-year-old female admitted on the 03/26/2018 with shortness of breath and a decreased oxygen saturation. [facility] [place] [place]. CT scan of the chest was said to be negative for pulmonary embolism. She was discharged to follow up with pulmonary, but ul timately admitted here at [facility]. 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 However, when sh e was on her own, she started having [...] pack a day for 18 month in [id number] she has no occupational exposure. When questioned she admits that she gained about 20 to 30 pound the last several months. There is no occupational exposure such as coal mining, fou ndry, sandblasting, and asbestos. 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 She has had [...] mg per tablet Take 1 Tablet by [facility] 4 times daily as needed for Diarrhea/Loose [...] Hepatic steatosis and probable hepatomegaly. READING SITE: [facility] Xr Chest Single View Frontal Result [...] 4:10 PM CDT 1525 Call made to rn radiology Dr. Garcia as patient has had pulmonary [...] today. Dr. Mancini notified. * Mary Anne Chavarria RN - 03/27/2018 5:09 AM CDT Ambulated pt around 2330. Pt requested walk to help with RLS. Pt sat 94-96% on R A during walk. documented in this encounter ED Notes * Valdo Park MD - 03/26/2018 12:54 PM CDT 03/26/2018 [facility] History Chief Complaint Patient presents with Shortness [...] Hepatic steatosis and probable hepatomegaly. READING SITE: [facility] XR Chest single view frontal Final [...] NIDDM2, hyperte nsion, hyperlipidemia who presented to [facility] from the pain clinic on 03/26/18 [...] She was evaluated i n ED at [facility] in October, noted to have [...] Additional Comments Above is home set-up in [place], [place]. Pt and spouse also h ave a second floor condo here in in which she has to walk up steps to get up to condo and then everything is on one floor. Pt and spouse live in [place] f l time, but all of pt's doctors are here in . Prior Function Level of [place] Independent with ADLs;Independent with functional transfer s;Independent [...] CI G-Code Determined by Clinical judgment;FIM (Functional [place] Measure) * Plan of Care - Ara [...] worse and had tried to see a rn radiology with [facility] but was unable to obtain [...] to inte rview at this time. Patient Application Trainer Name: Hunter Kelley (spouse), Patient Application Trainer Ph one: [phone] Patient's Living Arrangement: House Patients support system [...] MD and receive s their medications from [facility] #[id number] [address] [address] * Plan of Care - Mary Anne [...] Problem(s): Hepatic steatosis Identified on CT at [facility] 10/26/17, LFTs normal on admission [...] POC 198 (H) 70 - 100 mg/dL [facility] Specimen Performing Organization Address City/State/Zipcode Phone Number [facility] [address] [place] [address] * CBC and Diff (manual diff if necessary) (03/30/2018 4:47 AM CDT) Only the most recent of 4 results within the time period is included. Pathologist [facility] WBC 8.28 4.00 - 11.00 TH/uL [facility] RBC 5.03 (H) 4.00 - 5.00 MIL/uL [facility] Hemoglobin 12.2 12.0 - 15.0 g/dL [facility] Hematocrit 39 36 - 45 % [facility] MCV 77 (L) 80 - 99 fL [facility] MCH 24 (L) 27 - 34 pg [facility] MCHC 32 32 - 36 % [facility] RDW 16.3 (H) 9.0 - 14.5 % [facility] Platelet Count 291 140 - 400 TH/uL [facility] MPV 10.2 9.4 - 12.3 fL [facility] Nucleated RBCs 0 0 - 0 /100 [facility] % Neutrophils 64 45 - 78 % [facility] %Lymphocytes 26 15 - 47 % [facility] %Monocytes 6 0 - 12 % [facility] %Eosinophils 1 0 - 7 % [facility] %Basophils 1 0 - 2 % [facility] % Imm Grans 1 0 - 1 % [facility] # Granulocytes 5.42 1.70 - 6.80 TH/uL [facility] # Lymphocytes 2.18 1.00 - 3.30 TH/uL [facility] # Monocytes 0.53 0.20 - 0.90 TH/uL [facility] # Eosinophils 0.11 0.00 - 0.40 TH/uL [facility] # Basophils 0.04 0.00 - 0.10 TH/uL [facility] Specimen Blood Narrative Performed At This order is a replacement of the rejected order with accession number [facility] [id number]. LAB Performing Organization Address City/[facility] Cent[facility]ode Phone Number [facility] [phone] [place] [address] * Magnesium (03/30/2018 3:30 AM CDT) Only the most recent of 4 results within the time period is included. Pathologist [facility] Magnesium 1.9 1.4 - 2.7 mg/dL [facility] Specimen Blood Performing Organization Address City/[facility] Centercode Phone Number [facility] [phone] [place] [address] * Comprehensive Metabolic Panel (03/30/2018 3:30 AM CDT) Only the most recent of 2 results within the time period is included. Pathologist [facility] Sodium 136 133 - 147 MEQ/L [facility] Potassium 4.2 3.5 - 5.3 MEQ/L [facility] Chloride 99 96 - 112 MEQ/L [facility] Carbon Dioxide 26 20 - 32 MEQ/L [facility] Anion Gap 11 5 - 17 [facility] Calcium 10.1 8.4 - 10.5 mg/dL [facility] Glucose 195 (H) 70 - 100 mg/dL [facility] Protein Total 7.0 6.0 - 8.2 g/dL [facility] Serum [facility] Albumin 4.1 3.5 - 5.0 g/dL [facility] Alkaline 97 42 - 140 IU/L [facility] Phosphatase [facility] Alanine 24Comment: ALT reference range 0 - 34 IU/L [facility] Aminotransferas changed on 03-03-2018 [facility] e Aspartate 31 15 - 46 IU/L [facility] Aminotransferas [facility] e Bilirubin Total 1.2 0.2 - 1.3 mg/dL [facility] Blood Urea 18 7 - 26 mg/dL [facility] Nitrogen [facility] Creatinine 0.7 0.4 - 1.1 mg/dL [facility] eGFR Female AA 101 60 - 200 [facility] Comment: [facility] Chronic Kidney Disease less than 60 mL/min/1.73 sq.m Kidney failure less than 15 mL/min/1.73 sq.m eGFR Female 84 60 - 200 [facility] Non-AA Comment: [facility] Chronic Kidney Disease less than 60 mL/min/1.73 sq.m Kidney failure less than 15 mL/min/1.73 sq.m Specimen Blood Performing Organization Address City/State/Zipcode Phone Number [facility] [address] [place] [address] * Basic Metabolic Panel (03/29/2018 8:15 AM CDT) Only the most recent of 3 results within the time period is included. Sodium 136 133 - 147 MEQ/L [facility] Potassium 4.3 3.5 - 5.3 MEQ/L [facility] Chloride 100 96 - 112 MEQ/L [facility] Carbon Dioxide 24 20 - 32 MEQ/L [facility] Anion Gap 12 5 - 17 [facility] Calcium 10.1 8.4 - 10.5 mg/dL [facility] Glucose 207 (H) 70 - 100 mg/dL [facility] Blood Urea 17 7 - 26 mg/dL [facility] Nitrogen [facility] Creatinine 0.7 0.4 - 1.1 mg/dL [facility] eGFR Female AA 101 60 - 200 [facility] Comment: [facility] Chronic Kidney Disease less than 60 mL/min/1.73 sq.m Kidney failure less than 15 mL/min/1.73 sq.m eGFR Female 84 60 - 200 [facility] Non-AA Comment: [facility] Chronic Kidney Disease less than 60 mL/min/1.73 sq.m Kidney failure less than 15 mL/min/1.73 sq.m Specimen Blood Performing Organization Address City/[facility]/Zipcode Phone Number [facility] [address] [place] [address] * Arterial Blood Gas (03/28/2018 5:11 PM CDT) Sample Site RADIAL L [facility] Fraction of 0.21 [facility] [employer] Total Rate 20 bpm [facility] PO2 Arterial 74 (L) 80 - 100 mm Hg [facility] pCO2 Arterial 34 (L) 35 - 45 mm Hg [facility] pH Arterial 7.47 (H) 7.36 - 7.44 units [facility] Bicarbonate 24.7 19.0 - 29.0 MEQ/L [facility] Base Excess 1.5 -3.0 - 3.0 MEQ/L [facility] Specimen Performing Organization Address [facility] Phone Number [facility] [address] [place] [address] * Procalcitonin (03/28/2018 5:05 AM CDT) Only the most recent of 2 results within the time period is included. Pathologist [facility] Procalcitonin 0.31 (H) 0.00 - 0.10 ng/mL [facility] Comment: [facility] PCT Value LABORATORIES Interpretation 0.10 [...] procalcitonin levels. Specimen Blood Performing Organization Address City/[facility]/Zipcode Phone Number [facility] [address] [address] LABORATORIES * Complete Blood Count (03/28/2018 5:05 AM CDT) [facility] WBC 6.57 4.00 - 11.00 TH/uL [facility] RBC 4.56 4.00 - 5.00 MIL/uL [facility] Hemoglobin 11.3 (L) 12.0 - 15.0 g/dL [facility] Hematocrit 36 36 - 45 % [facility] MCV 78 (L) 80 - 99 fL [facility] MCH 25 (L) 27 - 34 pg [facility] MCHC 32 32 - 36 % [facility] RDW 16.1 (H) 9.0 - 14.5 % [facility] Platelet Count 226 140 - 400 TH/uL [facility] MPV 10.3 9.4 - 12.3 fL [facility] Nucleated RBCs 0 0 - 0 /100 [facility] Specimen Blood Performing Organization Address City/[facility]/Zipcode Phone Number [facility] [address] [place] [address] * Miscellaneous Microbiology (03/27/2018 1:20 PM CDT) [facility] Isolate 1 Salmonella bhakti (A) [facility] Isolate 1 Test performed at [facility] [address] [place] [address] [address] [place] [address] (A) Specimen Stool Antibiotic Method Susceptibility Organism AMPICILLIN >16: Intermediate Salmonella bhakti BACTRIM/SEPTRA >2/38: Resistant Salmonella bhakti CIPROFLOXACIN 0.25: Sensitive Salmonella bhakti Performing Organization Address City/[facility]/Zipcode Phone Number [facility] [address] [place] [address] LABORATORIES * Gastrointestinal Pathogen Panel by PCR (03/27/2018 1:20 PM CDT) [facility] Campylobacter Not Detected Not Detected [facility] Clostridium Not DetectedComment: Detection Not Detected [facility] difficile toxin of C. difficile may reflect REGIONAL A/B asymptomatic carriage or C. LABORATORIES difficile-associated diarrhea. Plesiomonas Not Detected Not Detected [facility] shigelloides [facility] Salmonella Detected (A) Not Detected [facility] Vibrio Not Detected Not Detected [facility] Vibrio cholerae Not Detected Not Detected [facility] Yersinia Not Detected Not Detected [facility] enterocolitica [facility] Enteroaggregati Not Detected Not Detected [facility] ve E. coli [employer] (EAEC) [facility] Enteropathogeni Not Detected Not Detected [facility] c E. coli [employer] (EPEC) [facility] Enterotoxigenic Not Detected Not Detected [facility] E. coli (ETEC) [facility] Shiga-like Not Detected Not Detected [facility] toxin-producing [employer] E. coli (STEC) [facility] E. coli O157 Not Detected Not Detected [facility] Shigella/Entero Not Detected Not Detected [facility] invasive E. [employer] coli (EIEC) [facility] Cryptosporidium Not Detected Not Detected [facility] Cyclospora Not Detected Not Detected [facility] cayetanensis [facility] Entamoeba Not Detected Not Detected [facility] histolytica [facility] Giardia lamblia Not Detected Not Detected [facility] Adenovirus F Not Detected Not Detected [facility] 40/41 [facility] Astrovirus Not Detected Not Detected [facility] Norovirus Not Detected Not Detected [facility] GI/GII [facility] Rotavirus A Not Detected Not Detected [facility] Sapovirus Not Detected Not Detected [facility] Specimen Stool Performing Organization Address City/State/Zipcode Phone Number [place] [address] [place] [address] LABORATORIES * Echo Complete with Doppler and [...] Imaging Center Name:MICKI KELLEY Date:03/27/2018 08:19 Chart #:[id number] : 1950 Location:[facility] IPSono: [email or web address] Age: 67 Gender:FReferring: ANDREA OLGUIN Room #: 212 Fellow: Indication:Dyspnea, unspecified Procedure: 24117 Complete Echo 2D/Colorflow/Doppler BP: 144 / 76HR:70Ht: [...] mmHg MITRAL VALVE DOPPLER Mitral E Point Crnsyzjb82.8 cm/sMitral E to A Ratio0.81 MitralA Point [...] MICKI KELLEY Date: 03/27/2018 08:19 Chart #: [id number] : 1950 Location: [facility] IP Sono: [email or web address] Age: 67 Gender: F Referring: ANDREA OLGUIN Room #: 212 Fellow: Indication:Dyspnea, unspecified Procedure: [id number] Complete Echo 2D/Colorflow/Doppler BP: 144 / 76 [...] Stimulating Hormone (03/27/2018 1:50 AM CDT) Pathologist [facility] Thyroid 1.79 0.47 - 4.68 uIU/mL [facility] Stimulating [facility] Hormone Specimen Blood Performing Organization Address City/[facility]/Zipcode Phone Number [facility] ANNY [facility] [address] [place] [address] * Lipid Panel (03/27/2018 1:50 AM CDT) Pathologist [facility] Cholesterol 174 100 - 200 mg/dL [facility] HDL Cholesterol 36 (L) 40 - 110 mg/dL [facility] [facility] Non-HDL 138 (H) 0 - 130 mg/dL [facility] Cholesterol [facility] Triglycerides 322 (H) 0 - 150 mg/dL [facility] LDL Cholesterol 74 0 - 99 mg/dL [facility] Cholesterol/HDL 4.8 (H) 0.0 - 4.5 [facility] Ratio [facility] Specimen Blood Performing Organization Address [facility] Centercode Phone Number [address] [address] LABORATORIES * Respiratory Panel by PCR (03/26/2018 8:50 PM CDT) Pathologist [facility] Adenovirus Not Detected Not Detected [facility] Coronavirus Not Detected Not Detected [facility] Human Not Detected Not Detected [facility] Metapneumovirus [facility] Human Not Detected Not Detected [facility] Rhinovirus [facility] Enter[facility] Influenza A Not Detected Not Detected [facility] Influenza B Not Detected Not Detected [facility] Parainfluenza Not Detected Not Detected [facility] Virus [facility] Respiratory Not Detected Not Detected [facility] Syncytial Virus [facility] Bordetella Not Detected Not Detected [facility] pertussis [facility] Chlamydophila Not Detected Not Detected [facility] pneumoniae [facility] Mycoplasma Not Detected Not Detected [facility] pneumoniae [facility] Source NASOPHAR [facility] Specimen Nasopharynx, Performing Organization Address City/[facility]/Zipcode Phone Number [address] [place] [address] LABORATORIES * Thyroid Withams (03/26/2018 4:22 PM CDT) Thyroid 2.67 0.47 - 4.68 uIU/mL [facility] Hormone Specimen Blood Performing Organization Address City/State/Zipcode Phone Number [facility] [address] [place] [address] * CT Angio Chest (03/26/2018 3:38 PM CDT) Specimen Impressions Performed At 1.Negative for acute pulmonary embolism. [facility] 2.Patchy groundglass attenuation throughout both lungs, which may represent mild atelectasis, edema, or pneumonitis. 3.Hepatic steatosis and probable hepatomegaly. READING SITE: [facility] Narrative Performed At Patient: ISI KELLEY Sex#:F # 1950 Malia#:[id number] Location:[facility]07Accession#: [id number] Procedure Requested:[id number] CT ANGIO CHEST Reason for Exam:shortness of [...] 4:02 PM CDT Patient: MICKI KELLEY Sex#: Catherine # 1950 Malia#: [id number] Location: [facility] Procedure Requested: [id number] CT ANGIO CHEST Reason for Exam: shortness [...] steatosis and probable hepatomegaly. [facility] SITE: [facility] Organization Address City/State/Zipcode Phone Number [facility] * Hemoglobin A1C (03/26/2018 1:57 PM CDT) Hemoglobin A1C 8.1 (H) 4.0 - 5.6 % [facility] Comment: REGIONAL Non-diabetic LABORATORIES 4.0 - 5.6 % Prediabetes 5.7 - 6.4 % Diabetes >=6.5 % Specimen Blood Performing Organization Address City/State/Zipcode Phone Number [address] [address] LABORATORIES * XR Chest single view frontal (03/26/2018 1:24 PM CDT) Specimen Impressions Performed At No acute disease. [facility] Narrative Performed At Patient: ISI KELLEY Sex#:F # 1950 Malia#:[id number] Location:[facility]08Accession#: [id number] Procedure Requested:[id number] XR CHEST SINGLE VIEW FRONTAL Reason for Exam:cough Exam Ordered:03/26/20181257 Exam Date/Time:03/26/20181324 Begin exam date/time:03/26/20181305 Reading Site: [facility]. XR CHEST SINGLE VIEW FRONTAL, 03/26/2018 1:24 [...] MICKI KELLEY Sex#: F # 1950 Malia#: [id number] Location: [facility] Procedure Requested: [id number] XR CHEST SINGLE VIEW FRONTAL Reason for Exam: cough Exam Ordered: 03/26/2018 1257 Exam Date/Time: 03/26/2018 1324 Begin exam date/time: 03/26/2018 1305 Reading Site: [facility]. XR CHEST SINGLE VIEW FRONTAL, 03/26/2018 1:24 PM Reason for Examination: cough Findings: The left central line terminates near the superior cavoatrial junction. The heart is normal in size. Mediastinal contours are within normal limits. Pulmonary vessels are normal. The lungs are clear. No pleural abnormalities are identified. IMPRESSION No acute disease. Performing Organization Address City/[facility]/Zipcode Phone Number MCMOJGAN * Troponin (03/26/2018 1:15 PM CDT) Troponin <0.01 0.00 - 0.03 ng/mL NO Comment: [facility] Troponin ValueInterpretation 0.00 - 0.03 Healthy 0.04 - 0.12 Increased Cardiac Risk >0.12M yocardial Infarction Troponin may not become elevated until 6 to 8 hours after onset of symptoms. Specimen Blood Performing Organization Address [facility] Centercout Phone Number [facility] [address] [place] [address] * NTproBNP (03/26/2018 1:15 PM CDT) NTproBNP 28 pg/mL [facility] Comment: [facility] NT-proBNPReference Ranges: <50 yr<450 pg/mL 50-75 yr<900 pg/mL >75 yr <1800 pg/mL A cutoff value of 1200 pg/mL is recommended in patients 50 to 70 years of age with a GFR between 30 and 60.NT-proBNP is unreliable in patients with GFR <30. Specimen Blood Performing Organization Address [facility] Centercout Phone Number [facility] [address] [place] [address] * Electrocardiogram (ECG) (03/26/2018 12:55 PM CDT) QRSd 68 [facility] QT 352 [facility]ER QTC 434 [facility]ER ECGHR 91 [facility]ER ECGPR 176 [facility]ER Specimen Narrative [facility] ED Test Date:2018-03-26 Pat Name: MICKI KELLEYDepartment: GIRMA Room: [facility] Gender: Female Hammer Setter: [id number] :1950 Requested By: VALDO PARK Order Number: [id number] MD: Measurements IntervalsAxis Rate: 91 P:29 IA: 176QRS:6 QRSD: 68 T:88 QT: 352 QTc:434 Interpretive Statements SINUS RHYTHM BORDERLINE T ABNORMALITIES, ANT-LAT LEADS Procedure Note Interface, External Ris In - 03/26/2018 12:56 PM CDT [facility] ED Test Date: 2018-03-26 Pat Name: MICKI KELLEY Department: ERJ Room: [facility] Gender: Female Hammer Setter: [id number] : 1950 Requested By: VALDO PARK Order Number: [id number] Waldemar MD: Measurements Intervals [place] Rate: 91 P: 29 IA: 176 QRS: 6 QRSD: 68 T: 88 QT: 352 QTc: 434 Interpretive Statements SINUS RHYTHM BORDERLINE T ABNORMALITIES, ANT-LAT LEADS Performing Organization Address City/State/Zipcode Phone Number TRACEMAST documented in this encounter Visit Diagnoses Diagnosis [...] hours PRN, wheezing, shortness of air, Starting Galt 03/29/18 at 1500 2.5 mg Given 03/29/2018 8:30 PM CDT 03/29/2018 10:15 AM CDT albuterol (ACCUNEB) 2.5 mg/3 mL (0.083 Given by %) nebulizer solution Other Starting Galt 03/29/18 at 1013, For 1 dose, Helen [...] 20 mg Given 20 mg, Intravenous, Once, Rin 03/26/18 at 1745, For 1 dose, Usual [...] Oral, 2 times daily, First dose on [facility] 03/26/18 at 2100 5 mg Given 03/29/2018 8:23 PM CDT 5 mg Given 03/29/2018 8:59 AM CDT 03/30/2018 7:41 AM CDT 40 mg pantoprazole (PROTONIX) EC tablet 40 mg Given 40 mg, Oral, Daily, First dose on [facility] 03/26/18 at 1800, DO NOT CRUSH OR CHEW., 40 mg Given 03/29/2018 5:32 AM CDT 40 mg Given 03/28/2018 6:06 AM CDT polyvinyl alcohol (LIQUIFILM TEARS) 1.4 % ophthalmic solution 1 drop 1 drop, Both Eyes, As needed, dry eyes, Indications: Dry Eye, Starting [facility] 03/30/18 at 0152 potassium chloride (KAYCIEL) 20 mEq/15 mL solution 20-60 mEq 20-60 mEq, Oral, As needed, for potassium replacement in telemetry patients, Starting [facility] 03/26/18 at 1721, Give if unable [...] replacement in telemetry patients, Starting [facility] 03/26/18 at 1721, Administer 20 mEq [...]
--- OUTSIDE RECORDS SUMMARY | 2019-03-30 16:13 | XMS REPORT | Encounter Summary ---
Author Author [facility] Organization [facility] Address Unknown Phone Unavailable Care Team Providers Care Home Health Rn Name Role Phone PCP Unavailable Encounter Details Care Team Description Date Type Department Alma Randolph MD [address] [place] [address] [phone] Emergency, Physician, Diverticulitis of colon (without mention of hemorrhage) 11/11/2011 [facility] [address] [place] [address] Social History Date Tobacco Use Types Packs/Day [...] 9:32 PM CDT) Specimen Narrative Performed At [facility] Patient:MICKI LUJAN Phone #:Med Rec#:[id number] Sex:F :2[employer]#: [id number] Location: Barb#: [id number] Procedure Requested: [id number] CT ABD PELVIS WITH CONTRAST Reason For [...] discussed above. Signed (Authenticated, Released) Date-Time: 11/11/20112227 Sludge Control Attendant- YOSELIN SMITH, Staff Radiologist Dictated By- YOSELIN SMITH, Staff Radiologist Staff Physician- YOSELIN SMITH, Staff Radiologist Authenticated By- YOSELIN SMITH, Staff Radiologist Procedure Note Interface, Rad Conversion - 10/23/2013 4:33 AM MICROSYSTEMS ENGINEER REPORT Patient: MICKI LUJAN Phone #: [facility] Rec#: [id number] Sex: F : 1950 Malia#: [id number] Location: Check-in#: [id number] Procedure Requested: [id number] CT ABD PELVIS WITH CONTRAST Reason For [...] discussed above. Signed (Authenticated, Released) Date-Time: 11/11/20112227 Sludge Control Attendant- YOSELIN BANERJEE M.D., Staff Radiologist Dictated By- YOSELIN BANERJEE M.D., Staff Radiologist Staff Physician- YOSELIN BANERJEE M.D., Staff Radiologist Authenticated By- YOSELIN BANERJEE M.D., Staff Radiologist Performing Organization Address [facility]cony Phone Number [place] * CBC and Diff [...] TH/UL SUNQUEST Specimen Blood Performing Organization Address [facility] Centercode Phone Number [facility] [address] [place] [address] SUNQUEST * Comprehensive Metabolic Panel (11/11/2011 9:19 [...] Performing Organization Address City/State/Zipcode Phone Number [facility] [address] [place] [address] SUNQUEST documented in this encounter Visit Diagnoses Diagnosis Diverticulitis of colon (without mention of hemorrhage)(562.11) Diverticulitis of colon (without mention of hemorrhage) documented in this encounter
--- OUTSIDE RECORDS SUMMARY | 2019-03-30 16:13 | XMS REPORT | Encounter Summary ---
Author Author [facility] Organization [facility] Address Unknown Phone Unavailable Care Team Providers Care Hospice Volunteer Name Role Phone PCP Unavailable Encounter Details Care Team Description Date Type Department [place] [id number] [place] [address] [phone] 12/09/2007 [facility] [address] [place] [address] Social History Date Tobacco Use Types Packs/Day [...] 9:09 PM CDT) Specimen Narrative Performed At [facility] Patient:MICKI LUJAN Med Rec#:[id number] Sex:F :1950 Malia#: [id number] Location: "" Check-in#: [id number] Procedure Requested: [id number] DX FOOT MIN 3 VIEWS LEFT Reason [...] base of the left fifth metatarsal bone. House Detective- AFRICA PRESTON, Staff Radiologist Dictated By- AFRICA PRESTON, Staff Radiologist Staff Physician- AFRICA PRESTON, Staff Radiologist Authenticated By- AFRICA PRESTON, Staff Radiologist Released Date Time- 12/10/07 0842 Procedure Note Interface, Rad Conversion - 10/24/2013 4:34 PM DEVELOPMENT ASSOCIATE REPORT Patient: MICKI LUJAN [facility] Rec#: [id number] Sex: F : 1950 Malia#: [id number] Location: "" Check-in#: [id number] Procedure Requested: [id number] DX FOOT MIN 3 VIEWS LEFT Reason [...] base of the left fifth metatarsal bone. House Detective- AFRICA RODRIGUEZ M.D., Staff Radiologist Dictated By- AFRICA RODRIGUEZ M.D., Staff Radiologist Staff Physician- AFRICA RODRIGUEZ M.D., Staff Radiologist Authenticated By- AFRICA RODRIGUEZ M.D., Staff Radiologist Released Date Time- 12/10/07 0842 Performing Organization Address City/State/[facility] Phone Number [facility] * XR Ankle min 3 views left (12/09/2007 7:53 PM CDT) Specimen Narrative Performed At REPORT SAM Patient:MICKI LUJAN [facility] Rec#:[id number] Sex:F :1950 Malia#: [id number] Location: "" Check-in#: [id number] Procedure Requested: [id number] DX ANKLE MIN 3 VIEWS LEFT Reason [...] or calcification is identified. IMPRESSION:Negative left ankle. House Detective- AFRICA PRESTON, Staff Radiologist Dictated ByMaycol PRESTON, Staff Radiologist Staff Physician- AFRICA PRESTON, Staff Radiologist Authenticated ByMaycol PRESTON, Staff Radiologist Released Date Time- 12/10/07 0841 Procedure Note Interface, Rad Conversion - 10/24/2013 4:34 PM DEVELOPMENT ASSOCIATE REPORT Patient: MICKI LUJAN [facility] Rec#: [id number] Sex: F : 1950 Malia#: [id number] Location: "" Check-in#: [id number] Procedure Requested: [id number] DX ANKLE MIN 3 VIEWS LEFT Reason [...] calcification is identified. IMPRESSION: Negative left ankle. House Detective- AFRICA RODRIGUEZ M.D., Staff Radiologist Dictated ByMaycol RODRIGUEZ M.D., Staff Radiologist Staff Physician- AFRICA RODRIGUEZ M.D., Staff Radiologist Authenticated ByMaycol RODRIGUEZ M.D., Staff Radiologist Released Date Time- 12/10/0741 Performing Organization Address City/State/Zipcode Phone Number [facility] * XR Knee 3 views right (12/09/2007 7:42 PM CDT) Specimen Narrative Performed At REPORT SAM Patient:MICKI LUJAN Med Rec#:[id number] Sex:F :1950 Malia#: [id number] Location: "" Check-in#: [id number] Procedure Requested: [id number] DX KNEE 3 VIEWS RIGHT Reason For [...] evidence of joint effusion. IMPRESSION:Negative right knee. House Detective- AFRICA PRESTON, Staff Radiologist Dictated By- AFRICA PRESTON, Staff Radiologist Staff Physician- AFRICA PRESTON, Staff Radiologist Authenticated By- AFRICA PRESTON, Staff Radiologist Released Date Time- 12/10/07 0839 Procedure Note Interface, Rad Conversion - 10/24/2013 4:34 PM DEVELOPMENT ASSOCIATE REPORT Patient: MICKI LUJAN Med Rec#: [id number] Sex: F : 1950 Malia#: [id number] Location: "" Check-in#: [id number] Procedure Requested: [id number] DX KNEE 3 VIEWS RIGHT Reason For [...] of joint effusion. IMPRESSION: Negative right knee. House Detective- AFRICA RODRIGUEZ M.D., Staff Radiologist Dictated By- AFRICA RODRIGUEZ M.D., Staff Radiologist Staff Physician- AFRICA RODRIGUEZ M.D., Staff Radiologist Authenticated By- AFRICA RODRIGUEZ M.D., Staff Radiologist Released Date Time- 12/10/07 0839 Performing Organization Address City/State/[facility] Phone Number [facility] documented in this encounter Visit Diagnoses Not on filedocumented in this encounter
--- OUTSIDE RECORDS SUMMARY | 2019-03-30 16:13 | XMS REPORT | Encounter Summary ---
Author Author [facility] Organization [facility] Address Unknown Phone Unavailable Care Team Providers Care Editing Clerk Name Role Phone Adolfo Cardenas MD PCP Reason for Visit * Reason Comments Fatigue pt reports 3 days of fatigue, chills. denies pain. was seen at PCP office today for routine follow up from a partial thyroidectomy ~2 years ago. Encounter Details Care Team Description Date Type Department Fito Ruby DO [address] [place] [address] [phone] CAP (community acquired pneumonia) (Primary Dx) 12/12/2016 Emergency [facility] [address] [place] [address] Social History Date Tobacco Use Types Packs/Day [...] Chest pain gets worse with breathing Fever gn125X (38C) or higher that doesnt get better with fever medic ine Weakness, dizziness, or fainting that gets worse Thirst or dry mouth that gets worse Sinus pain, headache, or a stiff neck Chest pain not caused by coughing [id number] [employer]. [address] [place] [address] 7. All rights reserved. This information is [...] 3:13 PM CDT Med list rec'd from [facility]. * Fito Ruby DO - 12/12/2016 2:49 PM CDT 12/12/2016 [facility] History Chief Complaint Patient presents with [...] Negative Ketones Urine Negative Negative mg/dL Specific [place], UA 1.015 1.001 - 1.030 Hemoglobin Urine [...] Adolfo Cardenas MD [address] [facility] [address] In 3 days New Prescriptions AZITHROMYCIN (ZITHROMAX [...] 4:17 PM CDT) [facility] ED Test Date:2016-12-12 Pat Name: MICKI LUJANDepartment: ER Room: [facility] Gender: Female Ell Tutor: [id number] :1950 Requested By: FITO RUBY Order Number: [id number] MD: Hector Napoles Measurements IntervalsAxis Rate: 66 P:37 NJ: 196QRS:25 QRSD: 80 T:30 QT: 408 QTc:428 Interpretive Statements SINUS RHYTHM BORDERLINE T ABNORMALITIES, ANT-LAT LEADS No previous ECG available for comparison Electronically Signed On 12-15-2016 19:06:36 CDT by Hector Napoles Procedure Note Interface, External Ris In - 12/15/2016 7:06 PM CDT [facility] ED Test Date: 2016-12-12 Pat Name: MICKI LUJAN Department: ER Room: [facility] Gender: Female Ell Tutor: [id number] : 1950 Requested By: FITO RUBY Order Number: [id number] Reading MD: Hector Napoles Measurements Intervals [place] Rate: 66 P: 37 NJ: 196 QRS: 25 QRSD: 80 T: 30 [...] At Patient: ISI LUJAN Sex#:F # 1950 Malia#:[id number] [facility]ion#: [id number] Procedure Requested:[id number] XR CHEST SINGLE VIEW FRONTAL Reason for Exam:fatigue Exam Ordered:12/12/20161453 Exam Date/Time:12/12/20161519 Begin exam date/time:6 Reading Site: [facility] DATE:12/12/2016 3:20 PM EXAM:XR CHEST SINGLE VIEW FRONTAL INDICATION:fatigue COMPARISON: Chest x-ray 11/12/2004 Procedure Note Interface, Rad Results In - 12/12/2016 3:40 PM CDT Patient: MICKI LUJAN Sex#: F # 1950 Malia#: [id number] Location[facility] Procedure Requested: [id number] XR CHEST SINGLE VIEW FRONTAL Reason for Exam: fatigue Exam Ordered: 12/12/2016 1453 Exam Date/Time: 12/12/20169 Begin exam date/time: 12/12/20161505 Reading Site: [facility] DATE: 12/12/2016 3:20 PM EXAM: XR [...] change in the spine. Performing Organization Address [facility] Phone Number [facility] * Urinalysis Microscopic Only (12/12/2016 3:17 PM CDT) Pathologist [facility] Microscopic RBC 1 - 5 1 - 5 /hpf [facility] Microscopic WBC 1 - 5 1 - 5 /hpf [facility] Epithelial Absent Absent [facility] Cells [facility] Hyaline Cast Absent Absent [facility] Bacteria Absent Absent [facility] Specimen Clean Voided Urine Performing Organization Address [facility] Phone Number [facility] [address] [place] [address] * Urinalysis Reflex (12/12/2016 3:17 PM CDT) Pathologist [facility] Appearance, Yellow [facility] Glucose Urine Negative Negative mg/dL [facility] Bilirubin Urine Negative Negative [facility] Ketones Urine Negative Negative mg/dL [facility] Specific 1.015 1.001 - 1.030 [facility] [place], UA [facility] Hemoglobin Negative Negative [facility] [...] Specimen Clean Voided Urine Performing Organization Address [facility] Phone Number [facility] [address] [place] [address] * Troponin (12/12/2016 3:06 PM CDT) Pathologist [facility] Troponin <0.01 0.00 - 0.03 ng/mL [facility] Comment: [facility] Troponin ValueInterpretation 0.00 - 0.03 Healthy 0.04 - 0.12 Increased Cardiac Risk >0.12M yocardial Infarction Troponin may not become elevated until 6 to 8 hours after onset of symptoms. Specimen Blood Performing Organization Address [facility]/State/Zipcode Phone Number [facility] [address] [place] [address] * Influenza AB Antigen (12/12/2016 3:06 PM CDT) Pathologist [facility] Influenza A Negative Negative [facility] Antigen Comment: [facility] A negative rapid influenza antigen result does not exclude influenza infection. If this patient is being hospitalized, influenza PCR should be ordered. Influenza B Negative Negative [facility] Antigen Comment: [facility] A negative rapid influenza antigen result does not exclude influenza infection. If this patient is being hospitalized, influenza PCR should be ordered. Specimen Nasopharynx, Performing Organization Address City/State/Zipcode Phone Number [facility] [address] [place] [address] * CBC and Diff (manual diff if necessary) (12/12/2016 3:06 PM CDT) [facility] WBC 9.57 4.00 - 11.00 TH/uL [facility] RBC 4.63 4.00 - 5.00 MIL/uL [facility] Hemoglobin 12.3 12.0 - 15.0 g/dL [facility] Hematocrit 38 36 - 45 % [facility] MCV 82 80 - 99 fL [facility] MCH 27 27 - 34 pg [facility] MCHC 33 32 - 36 % [facility] RDW 14.5 9.0 - 14.5 % [facility] Platelet Count 219 140 - 400 TH/uL [facility] MPV 11.2 9.4 - 12.3 fL [facility] Nucleated RBCs 0 0 - 0 /100 [facility] % Neutrophils 71 45 - 78 % [facility] %Lymphocytes 22 15 - 47 % [facility] %Monocytes 6 0 - 12 % [facility] %Eosinophils 1 0 - 7 % [facility] %Basophils 0 0 - 2 % [facility] % Imm Grans 0 0 - 1 % [facility] # Granulocytes 6.79 1.70 - 6.80 TH/uL [facility] # Lymphocytes 2.08 1.00 - 3.30 TH/uL [facility] # Monocytes 0.55 0.20 - 0.90 TH/uL [facility] # Eosinophils 0.12 0.00 - 0.40 TH/uL [facility] # Basophils 0.04 0.00 - 0.10 TH/uL [facility] Specimen Blood Performing Organization Address City/State/Zipcode Phone Number [facility] [address] [place] [address] * Comprehensive Metabolic Panel (12/12/2016 3:06 PM CDT) Sodium 139 133 - 147 MEQ/L [facility] Potassium 3.7 3.5 - 5.3 MEQ/L [facility] Chloride 102 96 - 112 MEQ/L [facility] Carbon Dioxide 28 20 - 32 MEQ/L [facility] Anion Gap 9 5 - 17 [facility] Calcium 9.6 8.4 - 10.5 mg/dL [facility] Glucose 122 (H) 70 - 100 mg/dL [facility] Protein Total 6.8 6.0 - 8.2 g/dL [facility] Serum [facility] Albumin 3.7 3.5 - 5.0 g/dL [facility] Alkaline 88 42 - 140 IU/L [facility] Phosphatase [facility] Alanine 36 13 - 69 IU/L [facility] Aminotransferas [facility] e Aspartate 27 15 - 46 IU/L [facility] Aminotransferas [facility] e Bilirubin Total 1.2 0.2 - 1.3 mg/dL [facility] Blood Urea 14 7 - 26 mg/dL [facility] Nitrogen [facility] Creatinine 0.6 0.4 - 1.1 mg/dL [facility] eGFR Female AA 121 60 - 200 [facility] Comment: [facility] Chronic Kidney Disease less than 60 mL/min/1.73 sq.m Kidney failure less than 15 mL/min/1.73 sq.m eGFR Female 101 60 - 200 [facility] Non-AA Comment: [facility] Chronic Kidney Disease less than 60 mL/min/1.73 sq.m Kidney failure less than 15 mL/min/1.73 sq.m Specimen Blood Performing Organization Address City/State/Zipcode Phone Number [facility] [address] [place] [address] documented in this encounter Visit Diagnoses Diagnosis [...]
--- OUTSIDE RECORDS SUMMARY | 2019-03-30 16:13 | XMS REPORT | Encounter Summary ---
Author Author [facility] Organization [facility] Address Unknown Phone Unavailable Care Team Providers Care Rewinder Operator Name Role Phone PCP Unavailable Encounter Details Care Team Description Date Type Department Raymundo Haji MD No Forwarding Address Emergency, PhysicianMD Abdominal pain, unspecified site 11/20/2011 [facility] [address] [place] [address] Social History Date Tobacco Use Types Packs/Day [...] 3:41 PM CDT) Specimen Narrative Performed At [facility] Patient:MICKI LUJAN Phone #:Med Rec#:[id number] Sex:F :1950orp#: [id number] Location: EJCheck-in#: [id number] Procedure Requested: [id number] CT ABD PELVIS WITH CONTRAST Reason For [...] 11/11/2011. Signed (Authenticated, Released) Date-Time: 11/20/2011 1623 Metallurgical Engineer- JOSE GALAN, Staff Radiologist Dictated By- JOSE GALAN, Staff Radiologist Staff Physician- JOSE GALAN, Staff Radiologist Authenticated By- JOSE GALAN, Staff Radiologist Procedure Note Loi, Rad Conversion - 10/23/2013 4:20 AM AUTO DAMAGE ADJUSTER REPORT Patient: MICKI LUJAN Phone #: Med Rec#: [id number] Sex: F : 1950 Malia#: [id number] Location: EJ Check-in#: [id number] Procedure Requested: [id number] CT ABD PELVIS WITH CONTRAST Reason For [...] 11/11/2011. Signed (Authenticated, Released) Date-Time: 11/20/2011 1623 Metallurgical Engineer- JOSE KABA M.D., Staff Radiologist Dictated By- JOSE KABA M.D., Staff Radiologist Staff Physician- JOSE KABA M.D., Staff Radiologist Authenticated ByMaycol KABA M.D., Staff Radiologist Performing Organization Address City/[facility] Phone Number [facility] * Urine Nitrite (11/20/2011 3:25 PM CDT) Nitrite Urine Negative Negative [facility] Specimen Urine Performing Organization Address [facility] Phone Number [facility] [address] [place] [address] [facility] * Urinalysis (11/20/2011 3:25 PM CDT) Appearance, Yellow [facility] Urine Specific >=1.030 1.001 - 1.030 [facility] Louann, UA PH Urine 5.0 5.0 - 8.0 [facility] Hemoglobin Negative Negative [facility] Urine Leukocyte Negative Negative [facility] Esterase Bilirubin Urine Negative Negative [facility] Glucose Urine Negative Negative MG/DL [facility] Ketones Urine Negative Negative MG/DL [facility] Protein Urine Negative Negative MG/DL [facility] Qual Urobilinogen Negative Negative EU/DL [facility] Urine Specimen Urine Performing Organization Address [facility] Phone Number R [address] [place] [address] [facility] * CBC and Diff (manual diff if necessary) (11/20/2011 2:54 PM CDT) Pathologist [facility] WBC 9.64 4.00 - 11.00 TH/UL [facility] [...] TH/UL [facility] Specimen Blood Performing Organization Address [facility] Phone Number R [address] [place] [address] [facility] * Comprehensive Metabolic Panel (11/20/2011 2:54 PM CDT) Pathologist [facility] Albumin 3.8 3.5 - 5.0 G/DL [facility] [...] Performing Organization Address City/State/Zipcode Phone Number [facility] [address] [place] [address] [facility] documented in this encounter Visit Diagnoses Diagnosis Abdominal pain, unspecified site documented in this encounter
--- OUTSIDE RECORDS SUMMARY | 2019-03-30 16:13 | XMS REPORT | Encounter Summary ---
Author Author [facility] Organization [facility] Address Unknown Phone Unavailable Care Team Providers Care Spud Sorter Name Role Phone PCP Unavailable Encounter Details Care Team Description Date Type Department Evelio Mcbride DO [address] [place] [address] [phone] 05/12/2004 [place] [address] Social History Date Tobacco Use Types Packs/Day Years Used Never Assessed Sex Assigned at Date Recorded Not on file Industry Job Start Date Occupation Not on file Not on file Not on file Travel End Travel History Travel Start No recent travel history available. documented as of this encounter ED Notes * Evelio Mcbride - 10/23/2013 5:08 PM LOADER MAGAZINE GRINDER Report Name: MICKI LUJAN MRN/Unit #: [id number] Date of : 1950 Attending Physician: EVELIO MCBRIDE MD CHIEF COMPLAINT: CSF leak. HISTORY OF PRESENT ILLNESS: This is a 54-year-old female who is status post Chi[facility]. The patient he patient presents to the emergency department after she had seen Dr. Morales yesterday and was cleared to fly back here to [place]. The patient notes during her flight that [...] was comfortable and preferred transfer back to [place]. The case was also discussed with the hospitalist at [facility]. The patient then proceeded to note that the patient agreed to suture placement in the postop wound. The wound was cleaned in a sterile fashion. Betadine and sterile drapes. The patient then had two 3-0 nylon sutures placed with no further CSF leak seen. INITIAL IMPRESSION: Cerebrospinal fluid leak. She was transferred to Dr. Morales inpatient to [facility]. Her condition was stable. Evelio Mcbride M.D. cc: Evelio Mcbride M.D., [facility] Attending physician ER MAGAZINE GRINDER documented in this encounter Plan of Treatment [...] Performing Organization Address City/State/Zipcode Phone Number [facility] [address] [place] [address] [facility] * DIFFERENTIAL (05/12/2004 1:56 PM CDT) [...] TH/UL [facility] Specimen Blood Performing Organization Address [facility] Phone Number R [address] [place] [address] [facility] * Basic Metabolic Panel (05/12/2004 1:56 [...] MG/DL [facility] Specimen Blood Performing Organization Address [facility] Phone Number R [address] [place] [address] [facility] * Carbamazepine (05/12/2004 1:56 PM CDT) Carbamazepine <0.2 (A) 4.0 - 12.0 UG/ML [facility] Specimen Blood Performing Organization Address [facility] Phone Number R [address] [place] [address] [facility] * CT Head (05/12/2004 1:47 PM CDT) Specimen Narrative Performed At [facility] Name: MICKI LUJAN Date of : 1950 Age: 54Y Room-Bed/Loc/Type: -// Check-in #: [id number] Attending Physician: EVELIO MCBRIDE MDAdmitting Diagnosis: Procedure:CT HEAD; 02907 Reason for Exam: HEADACHE Requested by: EVELIO MCBRIDE Exam Ordered: 05/12/2004 Malia # / Jacket #: [id number] Exam:CT OF THE HEAD Date/Time of Exam: [...] Interface, Rad Conversion - 10/26/2013 5:54 AM LOADER MAGAZINE GRINDER Report Name: MICKI LUJAN Date of : 1950 Age: 54Y Room-Bed/Loc/Type: -//EJ Check-in #: [id number] Attending Physician: EVELIO MCBRIDE MD Admitting Diagnosis: Procedure: CT HEAD; 41305 Reason for Exam: HEADACHE Requested by: EVELIO MCBRIDE Exam Ordered: 05/12/2004 Malia # / Jacket #: [id number] Exam: CT OF THE HEAD Date/Time of [...]
--- OUTSIDE RECORDS SUMMARY | 2019-03-30 16:13 | XMS REPORT | Encounter Summary ---
Author Author [facility] Organization [facility] Address Unknown Phone Unavailable Care Team Providers Care Stock Or Delivery Clerk Name Role Phone PCP Unavailable Encounter Details Care Team Description Date Type Department Yousif Chowdary DO [address] [place] [address] [phone] 11/12/2004 [place] [address] Social History Date Tobacco Use Types Packs/Day [...] (PA AND Routine 11/12/2004 LATERAL) 9:59 AM CASEWORK MANAGER documented in this encounter Results * XR Chest 2 views (PA and lateral) (11/12/2004 9:59 AM CASEWORK MANAGER) Specimen Narrative Performed At [facility] Name: MICKI LUJAN Date of : 1950 Age: 54Y Room-Bed/Loc/Type: -//EJ Check-in #: [id number] Attending Physician: YOUSIF CHOWDARY MDAdmitting Diagnosis: Procedure:DX CHEST 2 VIEWS; 72072 Reason for Exam: PAIN Requested by: YOUSIF CHOWDARY Exam Ordered: 11/12/2004 Malia # / Jacket #: [id number] Exam:CHEST Date/Time of Exam: 11/12/2004 10:04 Reason [...] Interface, Rad Conversion - 10/26/2013 3:50 AM CASEWORK MANAGER Report Name: MICKI LUJAN Date of : 1950 Age: 54Y Room-Bed/Loc/Type: -//EJ Check-in #: [id number] Attending Physician: YOUSIF CHOWDARY MD Admitting Diagnosis: Procedure: DX CHEST 2 VIEWS; 21342 Reason for Exam: PAIN Requested by: YOUSIF CHOWDARY Exam Ordered: 11/12/2004 Malia # / Jackugo #: [id number] Exam: CHEST Date/Time of Exam: 11/12/2004 10:04 [...]
--- OUTSIDE RECORDS SUMMARY | 2019-03-30 16:14 | XMS REPORT | Encounter Summary ---
Author Author [facility] Organization [facility] Address Unknown Phone Unavailable Care Team Providers Care Certified Surgical Technologist Name Role Phone Judah Lopez RN Unavailable Unavailable Brett Alcantar MD Unavailable Kumar Diggs MD Unavailable Doctor, Miscellaneous Unavailable Unavailable Barbara Pelaez MD Unavailable Adolfo Cardenas MD PCP Fausto Hsu Unavailable Unavailable Nallely Gomez MD Unavailable Silvano Potts MD Unavailable Sarwat Lozano APRN Unavailable Unavailable Aileen Jacobson MD Unavailable Unavailable Leonid Santos MD Unavailable Unavailable Danitza Rios MA,CCC-PREFORM PLATE MAKER Unavailable Unavailable Gela Cleary RN Unavailable Unavailable Hossein Minaya MD Unavailable Deonna Cunningham RN Unavailable Unavailable Anila Valencia RN Unavailable Unavailable Daniel Bond RN Unavailable Unavailable Yolette Moore MA,CCC-PREFORM PLATE MAKER Unavailable Unavailable Bryan Romero Unavailable Unavailable Nallely Tracy MA,CCC-PREFORM PLATE MAKER Unavailable Unavailable Haresh Kathleen MD Unavailable Teetee Taylor RN Unavailable Unavailable Bonnie Goss RN Unavailable Unavailable Maricel Albrecht MD Unavailable Kiarra Patrick RN Unavailable Unavailable Evelio Chris RN 2 Unavailable Todd Avendano MD Unavailable Tatiana Tim PA-C Unavailable Reason for Visit * Reason Comments Prescription Assistance Encounter Details Care Team Description Date Type Department Lesa Sawyer, GERARDO Prescription Assistance 03/24/2019 Telephone [facility] [address] [place] [phone] Social History Date Tobacco Use Types Packs/Day [...] is at the pharmacy now trying to picking table worker the RX. Transferred patient to [facility] [...] Type Specialty Ta Duckworth MD [address] [facility] [address] [place] [address] [phone] Overactive bladder 04/20/2019 Hospital Encounter Ta Duckworth MD [address] [facility] [address] [place] [address] CYSTOURETHROSCOPY WITH INJECTION FOR CHEMODENERVATION OF THE BLADDER (BOTOX 100 UNITS) 04/20/2019 Surgery documented as of this encounter Visit Diagnoses Not on filedocumented in this encounter
--- OUTSIDE RECORDS SUMMARY | 2019-03-30 16:14 | XMS REPORT | Encounter Summary ---
Author Author [facility] Organization [facility] Address Unknown Phone Unavailable Care Team Providers Care Iphone Developer Name Role Phone Judah Lopez RN Unavailable Unavailable Brett Alcantar MD Unavailable Kumar Diggs MD Unavailable Doctor, Miscellaneous Unavailable Unavailable Barbara Pelaez MD Unavailable Adolfo Cardenas MD PCP Fausto Hsu Unavailable Unavailable Nallely Gomez MD Unavailable Silvano Potts MD Unavailable Sarwat Lozano APRN Unavailable Unavailable Aileen Jaocbson MD Unavailable Unavailable Leonid Santos MD Unavailable Unavailable Danitza Rios MA,CCC-FUR POLISHER Unavailable Unavailable Gela Cleary RN Unavailable Unavailable Hossein Minaya MD Unavailable Deonna Cunningham RN Unavailable Unavailable Anila Valencia RN Unavailable Unavailable Daniel Bond RN Unavailable Unavailable Yolette Moore MA,CCC-FUR POLISHER Unavailable Unavailable Bryan Romero Unavailable Unavailable Nallely Tracy MA,CCC-FUR POLISHER Unavailable Unavailable Haresh Kathleen MD Unavailable Teetee Taylor RN Unavailable Unavailable Bonnie Goss RN Unavailable Unavailable Maricel Albrecht MD Unavailable Kiarra Patrick RN Unavailable Unavailable Evelio Chris RN 2 Unavailable Todd Avendano MD Unavailable Tatiana Tim PA-C Unavailable Encounter Details Care Team Description Date Type Department Lesa Sawyer RN 03/18/2019 Documentation [facility] [address] [place] [phone] Social History Date Tobacco Use Types Packs/Day [...] of f ax and sent request to [facility] and urged them to send the records immediately . [facility]'s number is [phone]. Lsea Sawyer RN documented in this encounter Plan of Treatment Care Team Description Date Type Specialty Ta Duckworth MD [address] [facility] [address] [place] [address] [phone] Overactive bladder 04/20/2019 Hospital Encounter Ta Duckworth MD [address] [facility] [address] [place] [address] [phone] CYSTOURETHROSCOPY WITH INJECTION FOR CHEMODENERVATION OF THE BLADDER (BOTOX 100 UNITS) 04/20/2019 Surgery documented as of this encounter Visit Diagnoses Not on filedocumented in this encounter
--- OUTSIDE RECORDS SUMMARY | 2019-03-30 16:14 | XMS REPORT | Clinical Summary ---
Author Author [facility] Organization [facility] Address Unknown Phone Unavailable Care Team Providers Care Sheriff Detective Name Role Phone Judah Lopez RN Unavailable Unavailable Brett Alcantar MD Unavailable Kumar Diggs MD Unavailable Doctor, Miscellaneous Unavailable Unavailable Barbara Pelaez MD Unavailable Adolfo Carednas MD PCP Fausto Hsu Unavailable Unavailable Nallely Gomez MD Unavailable Silvano Potts MD Unavailable Sarwat Lozano APRN Unavailable Unavailable Aileen Jacobson MD Unavailable Unavailable Leonid Santos MD Unavailable Unavailable Danitza Rios MA,CCC-TESTER REGULATOR Unavailable Unavailable Gela Cleary RN Unavailable Unavailable Hossein Minaya MD Unavailable Deonna Cunningham RN Unavailable Unavailable Anila Valencia RN Unavailable Unavailable Daniel Bond RN Unavailable Unavailable Yolette Moore MA,CCC-TESTER REGULATOR Unavailable Unavailable Bryan Romero Unavailable Unavailable Nallely Tracy MA,CCC-TESTER REGULATOR Unavailable Unavailable Haresh Kathleen MD Unavailable Teetee [...] you expected, contact Release of Information in [facility] Information Management department at [phone] for further assistan ce in locating additional records.[facility] Allergies No Known Allergies Medications [...] Winters is leaving and moving practice to [place]), she is okay with meeting Dr Duckworth [...] Overview: Added automatically from request for surgery [id number] Gastroesophageal reflux disease 11/18/2017 Overview: Added automatically from request for surgery [id number] Diarrhea 11/18/2017 Overview: Added automatically from request for surgery [id number] Incomplete bladder emptying 05/06/2017 Overview: - Increased [...] Date Type Specialty Ta Duckworth MD [address] [facility] [address] [place] [address] [phone] Overactive bladder 04/20/2019 Hospital Encounter Ta Duckworth MD [address] [facility] [address] [place] [address] [phone] CYSTOURETHROSCOPY WITH INJECTION FOR CHEMODENERVATION OF THE [...] Lot Implanted Type Area Manufactur er 10/22/2017 [id number] / [id number] / [id number] Cement Bone Smartset Gentamicin Right: Knee J and J 40gm High Viscosity [facility] Implanted: Qty: 2 on 01/25/2016 by : Maricel Mandujano MD at [facility] 11/22/2025 [id number] / [id number] / [id number] Tray Tibial Sigma 2.5 Knee Cocr Right: Knee JandJ:DEPU Cemented Modular Y:YEISONUY Implanted: Qty: 1 on 01/25/2016 by ORTHOPEDIC Maricel Albrceht MD at [facility] 11/22/2020 [id number] / [id number] / [id number] Dome Patellar 38mm Pfc Sigma Small Right: Knee JandJ:DEPU Oval Knee Uhmwpe 3 Peg Y:DEPUY Implanted: Qty: 1 on 01/25/2016 by ORTHOPEDIC Maricel Albrecht MD at [facility] 08/24/2025 [id number] / [id number] / [id number] Component Femoral 2.5 Knee Right Right: Knee JandJ:DEPU Cemented Posterior Y:DEPUY Implanted: Qty: 1 on 01/25/2016 by ORTHOPEDIC Maricel Albrecht MD at [facility] 07/24/2020 [id number] / [id number] / [id number] Insert Tibial 2.5 10mm Knee Gvf Right: Knee JandJ:DEPU Stabilize Sigma Y:DEPUY Implanted: Qty: 1 on 01/25/2016 by ORTHOPEDIC Maricel Albrecht MD at [facility] Procedures Comments Procedure Name Priority [...] Address City/State/Zipcode Phone Number MAIN [facility] [address] [place] [address] from Last 3 Months Insurance Type Payer Benefit Subscriber ID Effective Phone Address Plan / Dates Group Medicare MEDICARE MEDICARE xxxxxxxxxxx 2017-P PART A AND resent B Medicare CIGNA CIGNA xxxxxxxxxx 2017-P MEDICARE resent SUPPLEMENT Advance Directives Patient Gunnery/Ordnance Officer Explanation Type Date Recorded Advance 01/25/2016 8:06 [...]
--- OUTSIDE RECORDS SUMMARY | 2019-03-30 16:14 | XMS REPORT | Encounter Summary ---
Author Author [facility] Organization [facility] Address Unknown Phone Unavailable Care Team Providers Care Customer Contact Specialist Name Role Phone Judah Lopez RN Unavailable Unavailable Brett Alcantar MD Unavailable Kumar Diggs MD Unavailable Doctor, Miscellaneous Unavailable Unavailable Barbara Pelaez MD Unavailable Adolfo Cardenas MD PCP Fausto sHu Unavailable Unavailable Nallely Gomez MD Unavailable Silvano Potts MD Unavailable Sarwat Lozano APRN Unavailable Unavailable Aileen Jacobson MD Unavailable Unavailable Leonid Santos MD Unavailable Unavailable Danitza Rios MA,CCC-GRAPHIC DESIGN INTERN Unavailable Unavailable Gela Cleary RN Unavailable Unavailable Hossein Minaya MD Unavailable Deonna Cunningham RN Unavailable Unavailable Anila Valencia RN Unavailable Unavailable Daniel Bond RN Unavailable Unavailable Yolette Moore MA,CCC-GRAPHIC DESIGN INTERN Unavailable Unavailable Bryan Romero Unavailable Unavailable Nallely Tracy MA,CCC-GRAPHIC DESIGN INTERN Unavailable Unavailable Haresh Kathleen MD Unavailable Teetee Taylor RN Unavailable Unavailable Bonnie Goss RN Unavailable Unavailable Maricel Albrecht MD Unavailable Kiarra Patrick RN Unavailable Unavailable Evelio Chris RN 2 Unavailable Todd Avendano MD Unavailable Tatiana Tim PA-C Unavailable Reason for Visit * Reason Comments Prescription Assistance Encounter Details Care Team Description Date Type Department Lesa Sawyer, GERARDO Prescription Assistance 03/24/2019 Telephone The [facility] [address] [facility] [address] [place] [address] Social History Date Tobacco Use [...] Date Type Specialty Ta Duckworth MD [address] [facility] [address] [place] [address] [phone] Overactive bladder 04/20/2019 Hospital Encounter Ta Duckworth MD [address] [facility] [address] [place] [address] [phone] CYSTOURETHROSCOPY WITH INJECTION FOR CHEMODENERVATION OF THE BLADDER (BOTOX 100 UNITS) 04/20/2019 Surgery documented as of this encounter Visit Diagnoses Not on filedocumented in this encounter
--- OUTSIDE RECORDS SUMMARY | 2019-03-30 16:14 | XMS REPORT | Encounter Summary ---
Author Author [facility] Organization [facility] Address Unknown Phone Unavailable Care Team Providers Care Dental Mold Maker Name Role Phone Judah Lopez RN Unavailable Unavailable Brett Alcantar MD Unavailable Kumar Diggs MD Unavailable Doctor, Miscellaneous Unavailable Unavailable Barbara Pelaez MD Unavailable Adolfo Cardenas MD PCP Fausto Hsu Unavailable Unavailable Nallely Gomez MD Unavailable Silvano Potts MD Unavailable Sarwat Lozano APRN Unavailable Unavailable Aileen Jacobson MD Unavailable Unavailable Leonid Santos MD Unavailable Unavailable Danitza Rios MA,CCC-PAN RECLAIM PROCESSOR Unavailable Unavailable Gela Cleary RN Unavailable Unavailable Hossein Minaya MD Unavailable Deonna Cunningham RN Unavailable Unavailable Anila Valencia RN Unavailable Unavailable Daniel Bond RN Unavailable Unavailable Yolette Moore MA,CCC-PAN RECLAIM PROCESSOR Unavailable Unavailable Bryan Romero Unavailable Unavailable Nallely Tracy MA,CCC-PAN RECLAIM PROCESSOR Unavailable Unavailable Haresh Kathleen MD Unavailable Teetee Taylor RN Unavailable Unavailable Bonnie Goss RN Unavailable Unavailable Maricel Albrecht MD Unavailable Kiarra Patrick RN Unavailable Unavailable Evelio Chris RN 2 Unavailable Todd Avendano MD Unavailable Tatiana Tim PA-C Unavailable Encounter Details Care Team Description Date Type Department Tyrell Braswell MD [address] [facility] [address] [place] [address] [phone] 03/24/2019 Orders Only ihe [facility] [address] [facility] [address] [place] [address] Social History Date Tobacco Use [...] LPN - 03/24/2019 8:26 AM CDT Swab [id number] for yeast. Pt. Notified, RX to pharmacy. Patient has scheduled fo [facility] up appointment. documented in this encounter Plan of Treatment Care Team Description Date Type Specialty Ta Duckworth MD [address] [facility] [address] [place] [address] [phone] Overactive bladder 04/20/2019 Hospital Encounter Ta Duckworth MD [address] [facility] [address] [place] [address] [phone] CYSTOURETHROSCOPY WITH INJECTION FOR CHEMODENERVATION OF THE BLADDER (BOTOX 100 UNITS) 04/20/2019 Surgery documented as of this encounter Visit Diagnoses Not on filedocumented in this encounter
--- OUTSIDE RECORDS SUMMARY | 2019-03-30 16:14 | XMS REPORT | Encounter Summary ---
Author Author [facility] Organization [facility] Address Unknown Phone Unavailable Care Team Providers Care Mercury Washer Name Role Phone Judah Lopez RN Unavailable Unavailable Brett Alcantar MD Unavailable Kumar Diggs MD Unavailable Doctor, Miscellaneous Unavailable Unavailable Barbara Pelaez MD Unavailable Adolfo Cardenas MD PCP Fausto Hsu Unavailable Unavailable Nallely Gomez MD Unavailable Silvano Potts MD Unavailable Sarwat Lozano APRN Unavailable Unavailable Aileen Jacobson MD Unavailable Unavailable Leonid Santos MD Unavailable Unavailable Danitza Rios MA,CCC-DEVELOPMENT COORDINATOR Unavailable Unavailable Gela Cleary RN Unavailable Unavailable Hossein Minaya MD Unavailable Deonna Cunningham RN Unavailable Unavailable Anila Valencia RN Unavailable Unavailable Daniel Bond RN Unavailable Unavailable Yolette Moore MA,CCC-DEVELOPMENT COORDINATOR Unavailable Unavailable Bryan Romero Unavailable Unavailable Nallely Tracy MA,CCC-DEVELOPMENT COORDINATOR Unavailable Unavailable Haresh Kathleen MD Unavailable Teetee Taylor RN Unavailable Unavailable Bonnie Goss RN Unavailable Unavailable Maricel Albrecht MD Unavailable Kiarra Patrick RN Unavailable Unavailable Evelio Chris RN 2 Unavailable Todd Avendano MD Unavailable Tatiana Tim PA-C Unavailable Encounter Details Care Team Description Date Type Department Tyrell Braswell MD [address] [facility] [address] [place], [place] [id number] 03/18/2019 Orders Only The [facility] [address] [place] [address] Social History Date Tobacco Use [...] Date Type Specialty Ta Duckworth MD [address] [facility] [address] [place], [place] [id number] Overactive bladder 04/20/2019 Hospital Encounter Ta Duckworth MD [address] [facility] [address] [place], [place] [id number] CYSTOURETHROSCOPY WITH INJECTION FOR CHEMODENERVATION OF THE BLADDER (BOTOX 100 UNITS) 04/20/2019 Surgery documented as of this encounter Visit Diagnoses Not on filedocumented in this encounter
--- OUTSIDE RECORDS SUMMARY | 2019-03-30 16:14 | XMS REPORT | Encounter Summary ---
Author Author [facility] Organization [facility] Address Unknown Phone Unavailable Care Team Providers Care Lathe Operator Name Role Phone Judah Lopez RN Unavailable Unavailable Brett Alcantar MD Unavailable Kumar Diggs MD Unavailable Doctor, Miscellaneous Unavailable Unavailable Barbara Pelaez MD Unavailable Adolfo Cardenas MD PCP Fausto Hsu Unavailable Unavailable Nallely Gomez MD Unavailable Silvano Potts MD Unavailable Sarwat Lozano APRN Unavailable Unavailable Aileen Jacobson MD Unavailable Unavailable Leonid Santos MD Unavailable Unavailable Danitza Rios MA,CCC-HANDWRITING EXPERT Unavailable Unavailable Gela Cleary RN Unavailable Unavailable Hossein Minaya MD Unavailable Deonna Cunningham RN Unavailable Unavailable Anila Valencia RN Unavailable Unavailable Daniel Bond RN Unavailable Unavailable Yolette Moore MA,CCC-HANDWRITING EXPERT Unavailable Unavailable Bryan Romero Unavailable Unavailable Nallely Tracy MA,CCC-HANDWRITING EXPERT Unavailable Unavailable Haresh Kathleen MD Unavailable Teetee Taylor RN Unavailable Unavailable Bonnie Goss RN Unavailable Unavailable Maricel Albrecht MD Unavailable Kiarra Patrick RN Unavailable Unavailable Evelio Chris RN 2 Unavailable Todd Avendano MD Unavailable Tatiana Tim PA-C Unavailable Reason for Visit * Reason Comments Medication Follow-up Encounter Details Care Team Description Date Type Department Tyrell Braswell MD [address] [facility]ilion [address]vl [address] [place] [address] Medication Follow-up 03/26/2019 Telephone The [facility] [address] [place] [address] Social History Date Tobacco Use [...] Date Type Specialty Ta Duckworth MD [address] [facility] [address] [place] [address] Overactive bladder 04/20/2019 Hospital Encounter Ta Duckworth MD [address] [facility] [address] [place] [address] CYSTOURETHROSCOPY WITH INJECTION FOR CHEMODENERVATION OF THE BLADDER (BOTOX 100 UNITS) 04/20/2019 Surgery documented as of this encounter Visit Diagnoses Not on filedocumented in this encounter
--- OUTSIDE RECORDS SUMMARY | 2019-03-30 16:15 | XMS REPORT | Encounter Summary ---
Author Author [facility] Organization [facility] Address Unknown Phone Unavailable Care Team Providers Care Supervisor Cutting Department Name Role Phone Judah Lopez RN Unavailable Unavailable Brett Alcantar MD Unavailable Kumar Diggs MD Unavailable Doctor, Miscellaneous Unavailable Unavailable Barbara Pelaez MD Unavailable Adolfo Cardenas MD PCP Fausto Hsu Unavailable Unavailable Nallely Gomez MD Unavailable Silvano Potts MD Unavailable Sarwat Lozano APRN Unavailable Unavailable Aileen Jacobson MD Unavailable Unavailable Leonid Santos MD Unavailable Unavailable Danitza Rios MA,CCC-PHYSICAL EDUCATION TEACHER Unavailable Unavailable Gela Cleary RN Unavailable Unavailable Hossein Minaya MD Unavailable Deonna Cunningham RN Unavailable Unavailable Anila Valencia RN Unavailable Unavailable Daniel Bond RN Unavailable Unavailable Yolette Moore MA,CCC-PHYSICAL EDUCATION TEACHER Unavailable Unavailable Bryan Romero Unavailable Unavailable Nallely Tracy MA,CCC-PHYSICAL EDUCATION TEACHER Unavailable Unavailable Haresh Kathleen MD Unavailable Teetee Taylor RN Unavailable Unavailable Bonnie Goss RN Unavailable Unavailable Maricel Albrecht MD Unavailable Kiarra Patrick RN Unavailable Unavailable Evelio Chris RN 2 Unavailable Todd Avendano MD Unavailable Tatiana Tim PA-C Unavailable Reason for Visit * Reason Comments Results Encounter Details Care Team Description Date Type Department Shereen Horowitz ARNP [address] [facility] Pavilion [address] [place] [address] Results 12/11/2018 Telephone [facility] [address] [place] [address] Social History Date Tobacco Use [...] not have a VM set up and [facility]'s VM is also not set up. ----- Message from DANIEL Joya sent at 12/11/2018 8:49 AM CDT ----- Call pt and let her know repeat C. diff is negative. documented in this encounter Plan of Treatment Care Team Description Date Type Specialty Ta Duckworth MD [address] [facility] [address] [place] [address] [phone] Overactive bladder 04/20/2019 Hospital Encounter Ta Duckworth MD [address] [facility] [address] [place] [address] [phone] CYSTOURETHROSCOPY WITH INJECTION FOR CHEMODENERVATION OF THE BLADDER (BOTOX 100 UNITS) 04/20/2019 Surgery documented as of this encounter Visit Diagnoses Not on filedocumented in this encounter
--- OUTSIDE RECORDS SUMMARY | 2019-03-30 16:15 | XMS REPORT | Encounter Summary ---
Author Author [facility] Organization [facility] Address Unknown Phone Unavailable Care Team Providers Care Sales Agent [employer] Name Role Phone Judah Lopez RN Unavailable Unavailable Brett Alcantar MD Unavailable Kumar Diggs MD Unavailable Doctor, Miscellaneous Unavailable Unavailable Barbara Pelaez MD Unavailable Adolfo Cardenas MD PCP Fausto Hsu Unavailable Unavailable Nallely Gomez MD Unavailable Silvano Potts MD Unavailable Sarwat Lozano APRN Unavailable Unavailable Aileen Jacobson MD Unavailable Unavailable Leonid Santos MD Unavailable Unavailable Danitza Rios MA,CCC-FUSION OPERATOR Unavailable Unavailable Gela Cleary RN Unavailable Unavailable Hossein Minaya MD Unavailable Deonna Cunningham RN Unavailable Unavailable Anila Valencia RN Unavailable Unavailable Daniel Bond RN Unavailable Unavailable Yolette Moore MA,CCC-FUSION OPERATOR Unavailable Unavailable Bryan Romero Unavailable Unavailable Nallely Tracy MA,CCC-FUSION OPERATOR Unavailable Unavailable Haresh Kathleen MD Unavailable Teetee Taylor RN Unavailable Unavailable Bonnie Goss RN Unavailable Unavailable Maricel Albrecht MD Unavailable Kiarra Patrick RN Unavailable Unavailable Evelio Chris RN 2 Unavailable Todd Avendano MD Unavailable Tatiana Tim PA-C Unavailable Reason for Visit * Reason Comments Appointment Encounter Details Care Team Description Date Type Department Lesa Sawyer, GERARDO Appointment 03/17/2019 Telephone The [facility] [address] [place] [address] Social History Date Tobacco Use [...] Date Type Specialty Ta Duckworth MD [address] [facility] [address] [place] [address] [phone] Overactive bladder 04/20/2019 Hospital Encounter Ta Duckworth MD [address] [facility] [address] [place] [address] [phone] CYSTOURETHROSCOPY WITH INJECTION FOR CHEMODENERVATION OF THE BLADDER (BOTOX 100 UNITS) 04/20/2019 Surgery documented as of this encounter Visit Diagnoses Not on filedocumented in this encounter
--- OUTSIDE RECORDS SUMMARY | 2019-03-30 16:15 | XMS REPORT | Encounter Summary ---
Author Author [facility] Organization [facility] Address Unknown Phone Unavailable Care Team Providers Care Book Or Script Editor Name Role Phone Judah Lopez RN Unavailable Unavailable Brett Alcantar MD Unavailable Kumar Diggs MD Unavailable Doctor, Miscellaneous Unavailable Unavailable Barbara Pelaez MD Unavailable Adolfo Cardenas MD PCP Fausto Hsu Unavailable Unavailable Nallely Gomez MD Unavailable Silvano Potts MD Unavailable Sarwat Lozano APRN Unavailable Unavailable Aileen Jacobosn MD Unavailable Unavailable Leonid Santos MD Unavailable Unavailable Danitza Rios MA,CCC-CLAMPER Unavailable Unavailable Gela Cleary RN Unavailable Unavailable Hossein Minaya MD Unavailable Deonna Cunningham RN Unavailable Unavailable Anila Valencia RN Unavailable Unavailable Daniel Bond RN Unavailable Unavailable Yolette Moore MA,CCC-CLAMPER Unavailable Unavailable Bryan Romero Unavailable Unavailable Nallely Tracy MA,CCC-CLAMPER Unavailable Unavailable Haresh Kathleen MD Unavailable Teetee Taylor RN Unavailable Unavailable Bonnie Goss RN Unavailable Unavailable Maricel Albrecht MD Unavailable Kiarra Patrick RN Unavailable Unavailable Evelio Chris RN 2 Unavailable Todd Avendano MD Unavailable Tatiana Tim PA-C Unavailable Encounter Details Care Team Description Date Type Department Surekha Winters MD [address] Orth[facility] [address] [place], [place] [id number] Overactive bladder (Primary Dx) 03/15/2019 Prep for Case The [facility] [address] [place] [address] Social History Date Tobacco Use [...] Date Type Specialty Ta Duckworth MD [address] [facility] [address] [place], [place] [id number] Overactive bladder 04/20/2019 Hospital Encounter Ta Duckworth MD [address] [facility] [address] [place], [place] [id number] CYSTOURETHROSCOPY WITH INJECTION FOR CHEMODENERVATION OF THE BLADDER (BOTOX 100 UNITS) 04/20/2019 Surgery documented as of this encounter Visit Diagnoses Diagnosis Overactive bladder - Primary Hypertonicity of bladder documented in this encounter
--- OUTSIDE RECORDS SUMMARY | 2019-03-30 16:15 | XMS REPORT | Encounter Summary ---
Author Author [facility] Organization [facility] Address Unknown Phone Unavailable Care Team Providers Care Beam Sealer Name Role Phone Judah Lopez RN Unavailable Unavailable Brett Alcantar MD Unavailable Kumar Diggs MD Unavailable Doctor, Miscellaneous Unavailable Unavailable Barbara Pelaez MD Unavailable Adolfo Cardenas MD PCP Fausto Hsu Unavailable Unavailable Nallely Gomez MD Unavailable Silvano Potts MD Unavailable Sarwat Lozano APRN Unavailable Unavailable Aileen Jacobson MD Unavailable Unavailable Leonid Santos MD Unavailable Unavailable Danitza Rios MA,CCC-INSTITUTIONAL COOK Unavailable Unavailable Gela Cleary RN Unavailable Unavailable Hossein Minaya MD Unavailable Deonna Cunningham RN Unavailable Unavailable Anila Valencia RN Unavailable Unavailable Daniel Bond RN Unavailable Unavailable Yolette Moore MA,CCC-INSTITUTIONAL COOK Unavailable Unavailable Bryan Romero Unavailable Unavailable Nallely Tracy MA,CCC-INSTITUTIONAL COOK Unavailable Unavailable Haresh Kathleen MD Unavailable Teetee [...] controlled intermittent asthma 03/03/2019 Office Visit [facility] [address] [place] [phone] Social History Date Tobacco Use Types Packs/Day [...] MD Pulmonary and Critical Care Fellow Pager: [phone] ATTESTATION I personally performed the azul portions [...] Date Type Specialty Ta Duckworth MD [address] [facility] [address] [place] [address] [phone] Overactive bladder 04/20/2019 Hospital Encounter Ta Duckworth MD [address] [facility] [address] [place] [address] [phone] CYSTOURETHROSCOPY WITH INJECTION FOR CHEMODENERVATION OF THE BLADDER (BOTOX 100 UNITS) 04/20/2019 Surgery documented as of this encounter Visit Diagnoses Diagnosis Laryngopharyngeal reflux - Primary Other diseases of larynx Well controlled intermittent asthma Unspecified asthma documented in this encounter
--- OUTSIDE RECORDS SUMMARY | 2019-03-30 16:15 | XMS REPORT | Encounter Summary ---
Author Author [facility] Organization [facility] Address Unknown Phone Unavailable Care Team Providers Care Theatre Arts Professor Name Role Phone Judah Lopez RN Unavailable Unavailable Brett Alcantar MD Unavailable Kumar Diggs MD Unavailable Doctor, Miscellaneous Unavailable Unavailable Barbara Pelaez MD Unavailable Adolfo Cardenas MD PCP Fausto Hsu Unavailable Unavailable Nallely Gomez MD Unavailable Silvano Potts MD Unavailable Sarwat Lozano APRN Unavailable Unavailable Aileen Jacobson MD Unavailable Unavailable Leonid Santos MD Unavailable Unavailable Danitza Rios MA,CCC-MANAGER QUALITY Unavailable Unavailable Gela Cleary RN Unavailable Unavailable Hossein Minaya MD Unavailable Deonna Cunningham RN Unavailable Unavailable Anila Valencia RN Unavailable Unavailable Daniel Bond RN Unavailable Unavailable Yolette Moore MA,CCC-MANAGER QUALITY Unavailable Unavailable Bryan Romero Unavailable Unavailable Nallely Tracy MA,CCC-MANAGER QUALITY Unavailable Unavailable Haresh Kathleen MD Unavailable Teetee Taylor RN Unavailable Unavailable Bonnie Goss RN Unavailable Unavailable Maricel Albrecht MD Unavailable Kiarra Patrick RN Unavailable Unavailable Evelio Chris RN 2 Unavailable Todd Avendano MD Unavailable Tatiana Tim PA-C Unavailable Reason for Visit * Reason Comments Dough Puncher Exam Encounter Details Care Team Description Date Type Department Tyrell Braswell MD [address] [facility] Lvl [address] [place] [address] Vulvar pruritus (Primary Dx) 03/18/2019 Office Visit [facility] [address] [place] [address] Social History Date Tobacco Use [...] is referred by Dr. Michael randhawa of [facility] urology. The patient is a [...] adult absorbant diapers for incontinence. No outside screen printing cloth spreader records available for review. Pt states she was treated with ant ifungal medications earlier this year for her pruritis. These medications did not resolve her symptoms. PMH, fam / social history reviewed from [facility] notes. Pt had hysterectomy at [...] Date Type Specialty Ta Duckworth MD [address] Ortho[facility] Pavilion Lvl [address] [place], [place] [id number] Overactive bladder 04/20/2019 Hospital Encounter Ta Duckworth MD [address] Ortho[facility] Pavilion L[address] [place] [address] [phone] CYSTOURETHROSCOPY WITH INJECTION FOR CHEMODENERVATION OF THE [...] Organization Address City/State/Zipcode Phone Number MAIN [facility] [address] [place] [address] documented in this encounter Visit Diagnoses Diagnosis Vulvar pruritus - Primary Pruritus of genital organs documented in this encounter
--- OUTSIDE RECORDS SUMMARY | 2019-03-30 16:15 | XMS REPORT | Encounter Summary ---
Author Author [facility] Organization [facility] Address Unknown Phone Unavailable Care Team Providers Care Pie Maker Machine Name Role Phone Judah Lopez RN Unavailable Unavailable Brett Alcantar MD Unavailable Kumar Diggs MD Unavailable Doctor, Miscellaneous Unavailable Unavailable Barbara Pelaez MD Unavailable Adolfo Cardenas MD PCP Fausto Hsu Unavailable Unavailable Nallely Gomez MD Unavailable Silvano Potts MD Unavailable Sarwat Lozano APRN Unavailable Unavailable Aileen Jacobson MD Unavailable Unavailable Leonid Santos MD Unavailable Unavailable Danitza Rios MA,CCC-DOG BREEDER Unavailable Unavailable Gela Cleary RN Unavailable Unavailable Hossein Minaya MD Unavailable Deonna Cunningham RN Unavailable Unavailable Anila Valencia RN Unavailable Unavailable Daniel Bond RN Unavailable Unavailable Yolette Moore MA,CCC-DOG BREEDER Unavailable Unavailable Bryan Romero Unavailable Unavailable Nallely Tracy MA,CCC-DOG BREEDER Unavailable Unavailable Haresh Kathleen MD Unavailable Teetee Taylor RN Unavailable Unavailable Bonnie Goss RN Unavailable Unavailable Maricel Albrecht MD Unavailable Kirara Patrick RN Unavailable Unavailable Evelio Chris RN 2 Unavailable Todd Avendano MD Unavailable Tatiana Tim PA-C Unavailable Reason for Visit * Reason Comments Appointment Encounter Details Care Team Description Date Type Department Lesa Sawyer RN Appointment 03/17/2019 Telephone [facility] [address] [facility] [address] [place] [address] Social History Date Tobacco Use [...] me patient's mamograms. Sent fax request for SENIOR RISK MANAGER records. Lesa chaparro, RN documented in this encounter Plan of Treatment Care Team Description Date Type Specialty Ta Duckworth MD [address] [facility] Orth[facility]/Med Pavilion [address] [place] [address] [phone] Overactive bladder 04/20/2019 Hospital Encounter Ta Duckworth MD [address] [facility] Ortho/Med Pavilion Lvl [address] [place] [address] [phone] CYSTOURETHROSCOPY WITH INJECTION FOR CHEMODENERVATION OF THE BLADDER (BOTOX 100 UNITS) 04/20/2019 Surgery documented as of this encounter Visit Diagnoses Not on filedocumented in this encounter
--- OUTSIDE RECORDS SUMMARY | 2019-03-30 16:15 | XMS REPORT | Encounter Summary ---
Author Author [facility] Organization [facility] Address Unknown Phone Unavailable Care Team Providers Care Ui Developer With Angular Js Name Role Phone Judah Lopez RN Unavailable Unavailable Brett Alcantar MD Unavailable Kumar Diggs MD Unavailable Doctor, Miscellaneous Unavailable Unavailable Barbara Pelaez MD Unavailable Adolfo Cardenas MD PCP Fausto Hsu Unavailable Unavailable Nallely Gomez MD Unavailable Silvano Potts MD Unavailable Sarwat Lozano APRN Unavailable Unavailable Aileen Jacobson MD Unavailable Unavailable Leonid Santos MD Unavailable Unavailable Danitza Rios MA,CCC-VP SITE Unavailable Unavailable Gela Cleary RN Unavailable Unavailable Hossein Minaya MD Unavailable Deonna Cunningham RN Unavailable Unavailable Anila Valencia RN Unavailable Unavailable Daniel Bond RN Unavailable Unavailable Yolette Moore MA,CCC-VP SITE Unavailable Unavailable Bryan Romero Unavailable Unavailable Nallely Tracy MA,CCC-VP SITE Unavailable Unavailable Haresh Kathleen MD Unavailable Teetee Taylor RN Unavailable Unavailable Bonnie Goss RN Unavailable Unavailable Maricel Albrecht MD Unavailable Kiarra Patrick RN Unavailable Unavailable Evelio Chris RN 2 Unavailable Todd Avendano MD Unavailable Tatiana Tim PA-C Unavailable Reason for Visit * Reason Comments Appointment Encounter Details Care Team Description Date Type Department Lesa Sawyer, GERARDO Appointment 03/17/2019 Telephone [facility] [address] [place] [address] Social History Date Tobacco Use [...] Date Type Specialty Ta Duckworth MD [address] Ortho[facility]Med Pavilion Lvl [address] [place] [address] [phone] Overactive bladder 04/20/2019 Hospital Encounter Ta Duckworth MD [address] Orth[facility]Med Pavilion [address] [place] [address] [phone] CYSTOURETHROSCOPY WITH INJECTION FOR CHEMODENERVATION OF THE BLADDER (BOTOX 100 UNITS) 04/20/2019 Surgery documented as of this encounter Visit Diagnoses Not on filedocumented in this encounter
--- OUTSIDE RECORDS SUMMARY | 2019-03-30 16:15 | XMS REPORT | Encounter Summary ---
Author Author [facility] Organization [facility] Address Unknown Phone Unavailable Care Team Providers Care Ios Architect Name Role Phone Judah Lopez RN Unavailable Unavailable Brett Alcantar MD Unavailable Kumar Diggs MD Unavailable Doctor, Miscellaneous Unavailable Unavailable Barbara Pelaez MD Unavailable Adolfo Cardenas MD PCP Fausto Hsu Unavailable Unavailable Nallely Gomez MD Unavailable Silvano Potts MD Unavailable Sarwat Lozano APRN Unavailable Unavailable Aileen Jacobson MD Unavailable Unavailable Leonid Santos MD Unavailable Unavailable Danitza Rios MA,CCC-BREASTER Unavailable Unavailable Gela Cleary RN Unavailable Unavailable Hossein Minaya MD Unavailable Deonna Cunningham RN Unavailable Unavailable Anila Valencia RN Unavailable Unavailable Daniel Bond RN Unavailable Unavailable Yolette Moore MA,CCC-BREASTER Unavailable Unavailable Bryan Romero Unavailable Unavailable Nallely Tracy MA,CCC-BREASTER Unavailable Unavailable Haresh Kathleen MD Unavailable Teetee Taylor RN Unavailable Unavailable Bonnie Goss RN Unavailable Unavailable Maricel Albrecht MD Unavailable Kiarra Patrick RN Unavailable Unavailable Evelio Chris RN 2 Unavailable Todd Avendano MD Unavailable Tatiana Tim PA-C Unavailable Reason for Referral * Consult, Test & Treat (Routine) Referred By Contact Referred To Contact Status Reason Specialty Diagnoses / Procedures Surekha Winters MD [address] Orth[facility]ilion L[address] [place] [address] [facility] Tree Faller Cl [address] [place] [address] No Auth Needed Specialty Services Obstetrics & Diagnoses Required Gynecology Chronic vaginitis * Consult, Test & Treat (Routine) Referred By Contact Referred To Contact Status Reason Specialty Diagnoses / Procedures Surekha Winters MD [address] Ortho[facility] Pavilion Lvl [address] [place] [address] [facility] [address] [place] [address] Closed Specialty Services Dermatology Diagnoses Required Chronic vaginitis lichen sclerosis-medicare Reason for Visit * Reason Comments Other Incomplete bladder emptying Encounter Details Care Team Description Date Type Department Surekha Winters MD [address] Orth[facility] Pavilion [address] [place] [address] [phone] Chronic vaginitis (Primary Dx); Vaginal atrophy; Incomplete bladder emptying; Urge incontinence 03/15/2019 Office Visit [facility] [address] [place] [address] Social History Date Tobacco Use Types Packs/Day [...] applying inside the vagina) Lichen Sclerosis [facility] Pre-Operative Instructions Surgical Procedure: Botox 100 [...] multivitamin, red yeast rice, GLORIA-e, saw palmetto, Ackley s wort, turmeric, valerian root, Vascepa, Vitamin A, Vitamin B complex, Vitamin C, Vitamin E ? You DO NOT need to stop: iron, magnesium, potassium 7 days prior to surgery: ? Stop anti-inflammatory medications such as ibuprofen (Advil, Motrin), naproxen (Aleve), [place], Excedrin, Midol, celecoxib (Celebrex), diclofenac (Ridge chantal), diflunisal, etodolac, flurbiprofen, indomethacin, ketoprofen, ketorolac, [...] questions, please contact your provider's office at [phone] . For emergencies during evenings, nights, weekends, and holidays, contact [facility] link machine operator and request they contact the on-call Urology Resident at [phone]. documented in this encounter Progress Notes * [...] recent MRI Brain, spine, histor y of MANAGER STONE shunt, blood thinning medications. 03/15/19 PVR 68cc [...] Dr Winters is leaving [facility] and [facility] practice to [place]), she is okay with meeting Dr Duckworth the day of [facility]. Prep for case entered, no date ~ [...] [address] [facility] Pavilion L[address] [place] [address] [phone] Overactive bladder 04/20/2019 Hospital Encounter Ta Duckworth MD [address] [facility] [address] [place] [address] [phone] CYSTOURETHROSCOPY WITH INJECTION FOR CHEMODENERVATION OF THE [...] Duckworth (since Dr Winters is leaving and [facility] practice to [place]), she is okay with meeting Dr Duckworth the day of [facility]. Prep for case entered, no date ~ [...]
--- OUTSIDE RECORDS SUMMARY | 2019-03-30 16:15 | XMS REPORT | Encounter Summary ---
Author Author [facility] Organization [facility] Address Unknown Phone Unavailable Care Team Providers Care Photoengraving Supervisor Name Role Phone Judah Lopez RN Unavailable Unavailable Brett Alcantar MD Unavailable Kumar Diggs MD Unavailable Doctor, Miscellaneous Unavailable Unavailable Barbara Pelaez MD Unavailable Adolfo Cardenas MD PCP Fausto Hsu Unavailable Unavailable Nallely Gomez MD Unavailable Silvano Potts MD Unavailable Sarwat Lozano APRN Unavailable Unavailable Aileen Jacobson MD Unavailable Unavailable Leonid Santos MD Unavailable Unavailable Danitza Rios MA,CCC-MEDICAL VOUCHER CLERK Unavailable Unavailable Gela Cleary RN Unavailable Unavailable Hossein Minaya MD Unavailable Deonna Cunningham RN Unavailable Unavailable Anila Valencia RN Unavailable Unavailable Daniel Bond RN Unavailable Unavailable Yolette Moore MA,CCC-MEDICAL VOUCHER CLERK Unavailable Unavailable Bryan Romero Unavailable Unavailable Nallely Tracy MA,CCC-MEDICAL VOUCHER CLERK Unavailable Unavailable Haresh Kathleen MD Unavailable Teetee Taylor RN Unavailable Unavailable Bonnie Goss RN Unavailable Unavailable Maricel Albrecht MD Unavailable Kiarra Patrick RN Unavailable Unavailable Evelio Chris RN 2 Unavailable Todd Avendano MD Unavailable Tatiana Tim PA-C Unavailable Reason for Visit * Reason Comments Referral Encounter Details Care Team Description Date Type Department Lesa Sawyer RN Referral 03/17/2019 Telephone [facility] [address] [facility] [address] [place] [address] Social History Date Tobacco Use [...] had pap with Dr. Lamonte WHITLOCK in [place], [place]. Patient reports she saw him for [...] Date Type Specialty Ta Duckworth MD [address] [facility] [address] [place] [address] [phone] Overactive bladder 04/20/2019 Hospital Encounter Ta Duckworth MD [address] [facility] [address] [place] [address] [phone] CYSTOURETHROSCOPY WITH INJECTION FOR CHEMODENERVATION OF THE BLADDER (BOTOX 100 UNITS) 04/20/2019 Surgery documented as of this encounter Visit Diagnoses Not on filedocumented in this encounter
--- OUTSIDE RECORDS SUMMARY | 2019-03-30 16:15 | XMS REPORT | Encounter Summary ---
Author Author [facility] Organization [facility] Address Unknown Phone Unavailable Care Team Providers Care Ditch Inspector Name Role Phone Judah Lopez RN [...] Lesa Sawyer RN Appointment 03/17/2019 Telephone [facility] [address] [place] [address] [place] [address] Social History Date Tobacco Use [...] Encounter - Lesa Sawyer RN - 03/17/2019 1:09 PM CDT [...] Date Type Specialty Ta Duckworth MD [address] [facility] Ortho/Med Pavilion Lvl [address] [place] [address] [phone] Overactive bladder 04/20/2019 Hospital Encounter Ta Duckworth MD [address] [facility] [address] [place] [address] [phone] CYSTOURETHROSCOPY WITH INJECTION FOR CHEMODENERVATION OF THE BLADDER (BOTOX 100 UNITS) 04/20/2019 Surgery documented as of this encounter Visit Diagnoses Not on filedocumented in this encounter
--- OUTSIDE RECORDS SUMMARY | 2019-03-30 16:16 | XMS REPORT | Encounter Summary ---
Author Author [facility] Organization [facility] Address Unknown Phone Unavailable Care Team Providers Care Administrator Name Role Phone Judah Lopez RN Unavailable Unavailable Brett Alcantar MD Unavailable Kumar Diggs MD Unavailable Doctor, Miscellaneous Unavailable Unavailable Barbara Pelaez MD Unavailable Adolfo Cardenas MD PCP Fausto Hsu Unavailable Unavailable Nallely Gomez MD Unavailable Silvano Potts MD Unavailable Sarwat Lozano APRN Unavailable Unavailable Aileen Jacobson MD Unavailable Unavailable Leonid Santos MD Unavailable Unavailable Danitza Rios MA,CCC-STAKEHOLDER MANAGER Unavailable Unavailable Gela Cleary RN Unavailable Unavailable Hossein Minaya MD Unavailable Deonna Cunningham RN Unavailable Unavailable Anila Valencia RN Unavailable Unavailable Daniel Bond RN Unavailable Unavailable Yolette Moore MA,CCC-STAKEHOLDER MANAGER Unavailable Unavailable Bryan Romero Unavailable Unavailable Nallely Tracy MA,CCC-STAKEHOLDER MANAGER Unavailable Unavailable Haresh Kathleen MD Unavailable Teetee Taylor RN Unavailable Unavailable Bonnie Goss RN Unavailable Unavailable Maricel Albrecht MD Unavailable Kiarra Patrick RN Unavailable Unavailable Evelio Chris RN 2 Unavailable Todd Avendano MD Unavailable Tatiana Tim PA-C Unavailable Reason for Visit * Reason Comments C Diff Encounter Details Care Team Description Date Type Department Shereen Horowitz ARNP [address] Ortho/Med Pavilion Lvl [address] [place] [address] C Diff 11/11/2018 Telephone [facility] [address] [place] [address] Social History Date Tobacco Use [...] Go to ER or see PCP in [facility] if she develops fever, increasing abd pain, vomiting, worsening symptoms. documented in this encounter Plan of Treatment Care Team Description Date Type Specialty Ta Duckworth MD [address] Ortho/Med Pavilion [address] [place] [address] [phone] Overactive bladder 04/20/2019 Hospital Encounter Ta Duckworth MD [address] Ortho[facility]Med Pavilion [address] [place] [address] [phone] CYSTOURETHROSCOPY WITH INJECTION FOR CHEMODENERVATION OF THE BLADDER (BOTOX 100 UNITS) 04/20/2019 Surgery documented as of this encounter Visit Diagnoses Not on filedocumented in this encounter
--- OUTSIDE RECORDS SUMMARY | 2019-03-30 16:16 | XMS REPORT | Encounter Summary ---
Author Author [facility] Organization [facility] Address Unknown Phone Unavailable Care Team Providers Care Cloth Cutting Machine Operator Name Role Phone Judah Lopez RN Unavailable Unavailable Brett Alcantar MD Unavailable Kumar Diggs MD Unavailable Doctor, Miscellaneous Unavailable Unavailable Barbara Pelaez MD Unavailable Adolfo Cardenas MD PCP Fausto Hsu Unavailable Unavailable Nallely Gomez MD Unavailable Silvano Potts MD Unavailable Sarwat Lozano APRN Unavailable Unavailable Aileen Jacobson MD Unavailable Unavailable Leonid Santos MD Unavailable Unavailable Danitza Rios MA,CCC-PARK KEEPER Unavailable Unavailable Gela Cleary RN Unavailable Unavailable Hossein Minaya MD Unavailable Deonna Cunningham RN Unavailable Unavailable Anila Valencia RN Unavailable Unavailable Daniel Bond RN Unavailable Unavailable Yolette Moore MA,CCC-PARK KEEPER Unavailable Unavailable [place] Romero Unavailable Unavailable Nallely Tracy MA,CCC-PARK KEEPER Unavailable Unavailable Haresh Kathleen MD Unavailable Teetee Taylor RN Unavailable Unavailable Bonnie Goss RN Unavailable Unavailable Maricel Albrecht MD Unavailable Kiarra Patrick RN Unavailable Unavailable Evelio Chris RN 2 Unavailable Todd Avendano MD Unavailable Tatiana Tim PA-C Unavailable Reason for Visit * Reason Comments Diarrhea Encounter Details Care Team Description Date Type Department Shereen Horowitz ARNP [address] Ortho[facility]Med Pavilion Lvl [address] [place] [address] Diarrhea, unspecified type (Primary Dx); History of foreign travel; Gastroesophageal reflux disease, esophagitis presence not specified; History of colon polyps; Nausea 11/09/2018 Office Visit [facility] [address] [place] [address] Social History Date Tobacco Use Types [...] turn the specimens i n to a [facility] lab, please call Kym my nurse in [...] if you have any questions or concerns. [phone]. Gastroparesis is when food moves through the stomach more slowly than normal. It s also calleddelayed gastric emptying. How to say it [id number] Changing your diet Basic Dietary Guidelines for [...] have a medication refilled: Please use the [employer] Refill request or En[facility]xt your pharmacy directly to request medication refills. Please allow [address] [facility] Lab is on the 1st floor. It is open from 7 am-6pm -Friday and 6:30am-7pm on Mondays, and 7 am - Noon on Saturdays [facility] Lab is located on the 2nd floor and is open 8 am-5 pm Friday-Friday [facility] lab is located next to the check out desk and is open from 8 A M to 4:45 PM Friday through Friday. Radiology is on the 2nd floor of the Medical Office Building and the 2nd [facility] Radiology Scheduling can be reached at Press 1 for MRI, press 2 for nuclear med, press 3 for breast imaging, press 4 for interventi onal radiology, press 5 [address] CT and ultrasound. To Schedule office visits: Call [phone]. For procedure scheduling questions at the Main [facility] or [facility] se call ; for a procedure at [facility] please call . To receive appointment reminders on your cell phone: Make sure we have your c ell phone number, and Text [facility] to [phone]. Support for many chronic illnesses is available through [facility]: turnin [email or web address] or [phone]. For urgent questions on nights, weekends or holidays, call the Software Test Specialist at , and ask for the doctor citrix consultant for Gastroenterology.Call 911 for a ri emergencies. documented in this encounter Progress Notes [...] Salmonella in 08/2018 by her PCP in [facility]. 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 She states she was treated with an antibiotic for 2 weeks with only some improvement of her diarrhea. In 09/2018 e states she also traveled to [facility] and was still having diarrhea. Repeat stool [...] This note was in part completed with Brainloop, a voice to text dictation system. S ome errors may have occured and persist despite my best efforts to edit this doc ument to eliminate dictation/translationrelated errors. If you have question s/concerns, please contact me for clarification documented in this encounter Plan of Treatment Care Team Description Date Type Specialty Ta Duckworth MD [address] Ortho[facility]ilion Lvl [address] [place], [place] [id number] Overactive bladder 04/20/2019 Hospital Encounter Ta Duckworth MD [address] Ortho[facility] [address] [place], [place] [id number] CYSTOURETHROSCOPY WITH INJECTION FOR CHEMODENERVATION OF THE [...] PARASITES. PLEASE CONTACT THE MICROBIOLOGY LAB AT [phone] TO REQUEST FURTHER PARASITE TESTING. Report Status FINAL MAIN LAB 11/10/2018 Specimen Stool - Feces Performing Organization Address City/State/Zipcode Phone Number MAIN LAB [address] [place] [address] * LEUKOCYTES, FECAL (11/10/2018 9:00 AM CDT) Battery Name FECAL LEUKOCYTES MAIN LAB Specimen FECES KU MAIN LAB Description Special NONE MAIN LAB Requests Fecal POSITIVE BY LACTOFERRIN MAIN LAB Leukocytes Report Status FINAL MAIN LAB 11/10/2018 Specimen Stool - Feces Performing Organization Address [facility] Phone Number MAIN LAB [address] [place] [address] * GIARDIA SCREEN,FECAL (11/10/2018 9:00 AM CDT) Battery Name GIARDIA SCREEN MAIN LAB Specimen FECES KU MAIN LAB Description Special NONE MAIN LAB Requests Giardia EIA NEGATIVE FOR GIARDIA (LAMBLIA) MAIN LAB INTESTINALIS Report Status FINAL MAIN LAB 11/10/2018 Specimen Feces Performing Organization Address [facility] Phone Number MAIN LAB [address] [place] [address] * CRYPTOSPORIDUM,FECAL (11/10/2018 9:00 AM CDT) Battery Name CRYPTOSPORIDIUM MAIN LAB Specimen FECES MAIN LAB Description Special NONE MAIN LAB Requests Cryptosporidium NEGATIVE FOR CRYPTOSPORIDIUM MAIN LAB Report Status FINAL MAIN LAB 11/10/2018 Specimen Stool - Feces Performing Organization Address [facility] Phone Number MAIN LAB [address] [place] [address] * C DIFFICILE BY PCR (11/10/2018 9:00 AM CDT) Battery Name C DIFFICILE PCR MAIN LAB Specimen FECES MAIN LAB Description Special NONE MAIN LAB Requests C. difficile POSITIVE-wait 14 days to MAIN LAB Toxin B PCR repeat test Report Status FINAL MAIN LAB 11/10/2018 Specimen Feces Performing Organization Address [facility] Phone Number MAIN LAB [address] [place] [address] documented in this encounter Visit Diagnoses Diagnosis Diarrhea, unspecified type - Primary History of foreign travel Other specified conditions influencing health status Gastroesophageal reflux disease, esophagitis presence not specified History of colon polyps Personal history of colonic polyps Nausea Nausea alone documented in this encounter
--- OUTSIDE RECORDS SUMMARY | 2019-03-30 16:16 | XMS REPORT | Encounter Summary ---
Author Author [facility] Organization [facility] Address Unknown Phone Unavailable Care Team Providers Care Senior Account Representative Name Role Phone Judah Lopez RN Unavailable Unavailable Brett Alcantar MD Unavailable Kumar Diggs MD Unavailable Doctor, Miscellaneous Unavailable Unavailable Barbara Pelaez MD Unavailable Adolfo Cardenas MD PCP Fausto Hsu Unavailable Unavailable Nallely Gomez MD Unavailable Silvano Potts MD Unavailable Sarwat Lozano APRN Unavailable Unavailable Aileen Jacobson MD Unavailable Unavailable Leonid Santos MD Unavailable Unavailable Danitza Rios MA,CCC-MILKER MACHINE Unavailable Unavailable Gela Cleary RN Unavailable Unavailable Hossein Minaya MD Unavailable Deonna Cunningham RN Unavailable Unavailable Anila Valencia RN Unavailable Unavailable Daniel Bond RN Unavailable Unavailable Yolette Moore MA,CCC-MILKER MACHINE Unavailable Unavailable [place] Romero Unavailable Unavailable Nallely Tracy MA,CCC-MILKER MACHINE Unavailable Unavailable Haresh Kathleen MD Unavailable Teetee Taylor RN Unavailable Unavailable Bonnie Goss RN Unavailable Unavailable Maricel Albrecht MD Unavailable Kiarra Patrick RN Unavailable Unavailable Evelio Chris RN 2 Unavailable Todd Avendano MD Unavailable Tatiana Tim PA-C Unavailable Encounter Details Care Team Description Date Type Department Shereen Horowitz ARNP [address] Ortho/Med Pavilion [address]vl [address] [place] [address] [phone] Personal history of other infectious and parasitic diseases 12/10/2018 [facility] [address] [facility] [address] [place] [address] Social History Date Tobacco Use Types Packs/Day [...] Feli [address] [facility] Pav[facility] [address] [place] [address] [phone] Overactive bladder 04/20/2019 Hospital Encounter Ta Duckworth MD [address] Ortho[facility]Med Pavilion [address] [place] [address] [phone] CYSTOURETHROSCOPY WITH INJECTION FOR CHEMODENERVATION OF THE [...] Phone Number MAIN LAB [address] [place] [address] documented in this encounter Visit Diagnoses Diagnosis History of Clostridium difficile infection Personal history of other infectious and parasitic disease documented in this encounter
--- OUTSIDE RECORDS SUMMARY | 2019-03-30 16:16 | XMS REPORT | Encounter Summary ---
Author Author [facility] Organization [facility] Address Unknown Phone Unavailable Care Team Providers Care Vp Product Name Role Phone Judah Lopez RN Unavailable Unavailable Brett Alcantar MD Unavailable Kumar Diggs MD Unavailable Doctor, Miscellaneous Unavailable Unavailable Barbara Pelaez MD Unavailable Adolfo Cardenas MD PCP Fausto Hsu Unavailable Unavailable Nallely Gomez MD Unavailable Silvano Potts MD Unavailable Sarwat Lozano APRN Unavailable Unavailable Aileen Jacobson MD Unavailable Unavailable Leonid Santos MD Unavailable Unavailable Danitza Rios MA,CCC-GRINDING MILL OPERATOR Unavailable Unavailable Gela Cleary RN Unavailable Unavailable Hossein Minaya MD Unavailable Deonna Cunningham RN Unavailable Unavailable Anila Valencia RN Unavailable Unavailable Daniel Bond RN Unavailable Unavailable Yolette Moore MA,CCC-GRINDING MILL OPERATOR Unavailable Unavailable [place] Romero Unavailable Unavailable Nallely Tracy MA,CCC-GRINDING MILL OPERATOR Unavailable Unavailable Haresh Kathleen MD Unavailable Teetee Taylor RN Unavailable Unavailable Bonnie Goss RN Unavailable Unavailable Maricel Albrecht MD Unavailable Kiarra Patrick RN Unavailable Unavailable Evelio Chris RN 2 Unavailable Todd Avendano MD Unavailable Tatiana Tim PA-C Unavailable Encounter Details Care Team Description Date Type Department Shereen Horowitz ARNP [address] Ortho[facility]Med [facility] [address] [place] [address] [phone] Diarrhea, unspecified 11/10/2018 [facility] [address] [place] [address] Social History Date Tobacco Use Types Packs/Day [...] Feli Leyva [facility] [address] [place] [address] [phone] Overactive bladder 04/20/2019 Hospital Encounter Ta Duckworth MD [address] Orth[facility] [address] [place] [address] [phone] CYSTOURETHROSCOPY WITH INJECTION FOR CHEMODENERVATION OF THE [...] LAB 11/10/2018 Specimen Feces Performing Organization Address [facility]/Zipcode Phone Number MAIN LAB [address] [place] [address] * CRYPTOSPORIDUM,FECAL (11/10/2018 9:00 AM CDT) Battery Name CRYPTOSPORIDIUM MAIN LAB Specimen FECES MAIN LAB Description Special NONE MAIN LAB Requests Cryptosporidium NEGATIVE FOR CRYPTOSPORIDIUM MAIN LAB Report Status FINAL MAIN LAB 11/10/2018 Specimen Stool - Feces Performing Organization Address [facility]/Zipcode Phone Number MAIN LAB [address] [place] [address] * GIARDIA SCREEN,FECAL (11/10/2018 9:00 AM CDT) Battery Name GIARDIA SCREEN MAIN LAB Specimen FECES MAIN LAB Description Special NONE MAIN LAB Requests Giardia EIA NEGATIVE FOR GIARDIA (LAMBLIA) KU MAIN LAB INTESTINALIS Report Status FINAL MAIN LAB 11/10/2018 Specimen Feces Performing Organization Address [facility] Phone Number MAIN LAB [address] [place] [address] * LEUKOCYTES, FECAL (11/10/2018 9:00 AM CDT) Battery Name FECAL LEUKOCYTES MAIN LAB Specimen FECES MAIN LAB Description Special NONE MAIN LAB Requests Fecal POSITIVE BY LACTOFERRIN MAIN LAB Leukocytes Report Status FINAL [facility] LAB 11/10/2018 Specimen Stool - Feces Performing Organization Address [facility] Phone Number MAIN LAB [address] [place] [address] * OVA AND PARASITES, FECAL (11/10/2018 9:00 AM CDT) Battery Name OVA AND PARASITES MAIN LAB Specimen FECES MAIN LAB Description Special NONE MAIN LAB Requests Ova & Parasites SEE RESULTS OF GIARDIA AND MAIN LAB CRYPTOSPORIDIUM ANTIGENS BY EIA. THE ANTIGEN DETECTION ASSAY IS MORE SENSITIVE FOR THESE PARASITES. PLEASE CONTACT THE MICROBIOLOGY LAB AT [phone] TO REQUEST FURTHER PARASITE TESTING. Report Status FINAL [facility] LAB 11/10/2018 Specimen Stool - Feces Performing Organization Address [facility] Phone Number [facility] LAB [address] [place] [address] documented in this encounter Visit Diagnoses Diagnosis Diarrhea, unspecified type History of foreign travel Other specified conditions influencing health status documented in this encounter
--- OUTSIDE RECORDS SUMMARY | 2019-03-30 16:16 | XMS REPORT | Encounter Summary ---
Author Author [facility] Organization [facility] Address Unknown Phone Unavailable Care Team Providers Care Tire Debeader Name Role Phone Judah Lopez RN Unavailable Unavailable Brett Alcantar MD Unavailable Kumar Diggs MD Unavailable Doctor, Miscellaneous Unavailable Unavailable Barbara Pelaez MD Unavailable Adolfo Cardenas MD PCP Fausto Hsu Unavailable Unavailable Nallely Gomez MD Unavailable Silvano Potts MD Unavailable Sarwat Lozano APRN Unavailable Unavailable Aileen Jacobson MD Unavailable Unavailable Leonid Santos MD Unavailable Unavailable Danitza Rios MA,CCC-SENIOR CONTROLS TECHNICIAN Unavailable Unavailable Gela Cleary RN Unavailable Unavailable Hossein Minaya MD Unavailable Deonna Cunningham RN Unavailable Unavailable Anila Valencia RN Unavailable Unavailable Daniel Bond RN Unavailable Unavailable Yolette Moore MA,CCC-SENIOR CONTROLS TECHNICIAN Unavailable Unavailable [place] Romero Unavailable Unavailable Nallely Tracy MA,CCC-SENIOR CONTROLS TECHNICIAN Unavailable Unavailable Haresh Kathleen MD Unavailable Teetee Taylor RN Unavailable Unavailable Bonnie Goss RN Unavailable Unavailable Maricel Albrecht MD Unavailable Kiarra Patrick RN Unavailable Unavailable Evelio Chris RN 2 Unavailable Todd Avendano MD Unavailable Tatiana Tim PA-C Unavailable Reason for Visit * Reason Comments Patient Questions Encounter Details Care Team Description Date Type Department Shereen Horowitz ARNP [address] [facility] Ortho/Med Pavilion Lvl [address] [place] [address] Patient Questions 11/30/2018 Telephone The [facility] [address] [place] [address] Social History Date Tobacco Use [...] to pt. Pt reports she went to [facility] via ambulance yesterday after falling. States she [...] Date Type Specialty Ta Duckworth MD [address] Orth[facility] Pav[facility] [address] [place] [address] [phone] Overactive bladder 04/20/2019 Hospital Encounter Ta Duckworth MD [address] [facility] [address] [place] [address] [phone] CYSTOURETHROSCOPY WITH INJECTION FOR CHEMODENERVATION OF THE BLADDER (BOTOX 100 UNITS) 04/20/2019 Surgery documented as of this encounter Visit Diagnoses Not on filedocumented in this encounter
--- OUTSIDE RECORDS SUMMARY | 2019-03-30 16:16 | XMS REPORT | Encounter Summary ---
Author Author [facility] Organization [facility] Address Unknown Phone Unavailable Care Team Providers Care Injection Press Operator Name Role Phone Judah Lopez RN Unavailable Unavailable Brett Alcantar MD Unavailable Kumar Diggs MD Unavailable Doctor, Miscellaneous Unavailable Unavailable Barbara Pelaez MD Unavailable Adolfo Cardenas MD PCP Fausto Hsu Unavailable Unavailable Nallely Gomez MD Unavailable Silvano Potts MD Unavailable aSrwat Lozano APRN Unavailable Unavailable Aileen Jacobson MD Unavailable Unavailable Leonid Santos MD Unavailable Unavailable Danitza Rios MA,CCC-SEED CLEANING MANAGER Unavailable Unavailable Gela Cleary RN Unavailable Unavailable Hossein Minaya MD Unavailable Deonna Cunningham RN Unavailable Unavailable Anila Valencia RN Unavailable Unavailable Daniel Bond RN Unavailable Unavailable Yolette Moore MA,CCC-SEED CLEANING MANAGER Unavailable Unavailable [place] Romero Unavailable Unavailable Nallely Tracy MA,CCC-SEED CLEANING MANAGER Unavailable Unavailable Haresh Kathleen MD Unavailable Teetee Taylor RN Unavailable Unavailable Bonnie Goss RN Unavailable Unavailable Maricel Albrecht MD Unavailable Kiarra Patrick RN Unavailable Unavailable Evelio Chris RN 2 Unavailable Todd Avendano MD Unavailable Tatiana Tim PA-C Unavailable Reason for Visit * Reason Comments Diarrhea Follow-up Phone Call Encounter Details Care Team Description Date Type Department [place], Shereen, DANIEL [address] Ortho/Med Pavilion [address] [place] [address] [phone] Diarrhea; Follow-up Phone Call 11/23/2018 Telephone [facility] [address] [place] [address] [...] to contact pt, phone rang without VM oyster picker. * Telephone Encounter - Elena Cedillo [...] Feli Le[address]va [facility] [address] [place] [address] [phone] Overactive bladder 04/20/2019 Hospital Encounter Ta Duckworth MD [address] [facility] [address] [place] [address] [phone] CYSTOURETHROSCOPY WITH INJECTION FOR CHEMODENERVATION OF THE [...] Address City/State/Zipcode Phone Number MAIN LAB [address] [place] [address] documented in this encounter Visit Diagnoses Diagnosis Diarrhea, unspecified type - Primary History of Clostridium difficile colitis History of Clostridium difficile infection Personal history of other infectious and parasitic disease documented in this encounter
--- OUTSIDE RECORDS SUMMARY | 2019-03-30 16:17 | XMS REPORT | Encounter Summary ---
Author Author [facility] Organization [facility] Address Unknown Phone Unavailable Care Team Providers Care Egg Caser Name Role Phone Judah Lopez RN Unavailable Unavailable Brett Alcantar MD Unavailable Kumar Diggs MD Unavailable Doctor, Miscellaneous Unavailable Unavailable Barbara Pelaez MD Unavailable Adolfo Cardenas MD PCP Fausto Hsu Unavailable Unavailable Nallely Gomez MD Unavailable Silvano Potts MD Unavailable Sarwat Lozano APRN Unavailable Unavailable Aileen Jacobson MD Unavailable Unavailable Leonid Santos MD Unavailable Unavailable Danitza Rios MA,CCC-SCAFFOLDER Unavailable Unavailable Gela Cleary RN Unavailable Unavailable Hossein Minaya MD Unavailable Deonna Cunningham RN Unavailable Unavailable Anila Valencia RN Unavailable Unavailable Daniel Bond RN Unavailable Unavailable Yolette Moore MA,CCC-SCAFFOLDER Unavailable Unavailable Bryan Romero Unavailable Unavailable Nallely Tracy MA,CCC-SCAFFOLDER Unavailable Unavailable Haresh Kathleen MD Unavailable Teetee Taylor RN Unavailable Unavailable Bonnie Goss RN Unavailable Unavailable Maricel Albrecht MD Unavailable Kiarra Patrick RN Unavailable Unavailable Evelio Chris RN 2 Unavailable Todd Avendano MD Unavailable Tatiana Tim PA-C Unavailable Reason for Referral * Consult, Test & Treat (Routine) Referred By Contact Referred To Contact Status Reason Specialty Diagnoses / Procedures Paulo Christensen MD [address] [facility] [address] [place] [address] Pulmonary Function [address] [place] [place] [id number] [facility] Diagnoses Required Shortness of breath * Consult, Test & Treat (Routine) Referred By Contact Referred To Contact Status Reason Specialty Diagnoses / Procedures Paulo Christensen MD [address] [facility] [address] [facility] Ent [address] Level [address] [place] [address] Closed Specialty Services Otolaryngology Diagnoses Required Shortness of breath Reason for Visit * Reason Comments Shortness of Breath Encounter Details Care Team Description Date Type Department Elmira Zapata Shortness of breath (Primary Dx) 10/28/2018 Office Visit [facility] [address] [place] [address] Social History Date Tobacco Use [...] Comments Vital Sign 146/74 10/28/2018 2:29 PM WATER METER INSTALLER Blood Pressure 73 10/28/2018 2:29 PM WATER METER INSTALLER Pulse 36.7 C (98 F) 10/28/2018 2:29 PM WATER METER INSTALLER Temperature 16 10/28/2018 2:29 PM WATER METER INSTALLER Respiratory Rate 96% 10/28/2018 2:29 PM WATER METER INSTALLER ra Oxygen Saturation - - Inhaled Oxygen Concentration 106.6 kg (235 lb) 10/28/2018 2:29 PM WATER METER INSTALLER Weight 167.6 cm (5' 6") 10/28/2018 2:29 PM WATER METER INSTALLER Height 37.93 10/28/2018 2:29 PM WATER METER INSTALLER Body Mass Index documented in this encounter [...] Instructions* Elmira Zapata - 10/28/2018 2:30 PM WATER METER INSTALLER We are going to change your inhaler to Symbicort We will send you for another breathing test We will have a new evaluation for ENT doctor Take protonix twice a day R METER INSTALLER documented in this encounter Progress Notes * Elmira Zapata - 10/28/2018 2:30 PM WATER METER INSTALLER Date of Service: 10/28/2018 Subjective: Micki Kelley [...] 25 pounds over the last 6 m [facility] Patient was on a vacation recently and [...] asthma. Hence , I'm still holding on [facility] IgE level. She continues with hoarseness [...] MD Pulmonary and Critical Care Fellow Pager: [phone] ATTESTATION I personally performed the azul portions of the E/M visit, discussed case with re sident and concur with resident documentation of history, physical exam, assessm ent, and treatment plan unless otherwise noted. Staff name: Paulo Christensen MD Date: 10/28/2018 R METER INSTALLER documented in this encounter Plan of Treatment Care Team Description Date Type Specialty Ta Duckworth MD [address] [facility] [address] [place] [address] [phone] Overactive bladder 04/20/2019 Hospital Encounter Ta Duckworth MD [address] [facility] [address] [place] [address] [phone] CYSTOURETHROSCOPY WITH INJECTION FOR CHEMODENERVATION OF THE [...] Routine 10/28/2018 Shortness of breath 2:35 PM WATER METER INSTALLER documented in this encounter Results * SPIROMETRY (10/28/2018 2:35 PM WATER METER INSTALLER) FVC-Pre 1.91 L [facility] FVC-%Pred-pre 57 % [facility] FEV1-Pre 1.62 L [facility] FEV1-%Pred-Pre 63 % [facility] FEV1/FVC-Pre 85 % [facility] [id number] 67 % [facility] [id number] 2.22 L/sec [facility] EDD0944-%Pred-P 102 % [facility] re Specimen Narrative Performed At Performing Organization Address City/State/Zipcode Phone Number [facility] [address] [place] [address] documented in this encounter Visit Diagnoses Diagnosis Shortness of breath - Primary documented in this encounter
--- OUTSIDE RECORDS SUMMARY | 2019-03-30 16:18 | XMS REPORT | Continuity of Care Document ---
Author Organization Unknown Address Unknown Phone Unavailable Allergies Active Description Code Type Severity Reaction Onset Reported/Identified Relationship to Patient Clinical Status Yes No Known Drug Allergies [id number] Drug Allergy Unknown N/A 02/11/2014 Medications There [...] DEBORAH HALL, KATHLEEN R Ot 724.5 10/21/2013 DEBROAH HALL, KATHLEEN R Ot 789.00 02/13/2014 DEBORAH [...] 02/11/2018 KATHLEEN CABRERA MD R Ot T84.89XA [facility] COMP OF INTERNAL ORTHOPEDIC PROSTH D [...] OF INTERNAL ORTHOPEDIC PROSTH D 03/20/2018 NIYA CHAVEZ-Chrsitiano Ot J20.9 ACUTE BRONCHITIS, UNSPECIFIED 03/20/2018 GABBIE AZUL MD Ot J20.9 ACUTE BRONCHITIS, UNSPECIFIED 03/20/2018 LATHA HALL, GABBIE Mcguire Ot J42 UNSPECIFIED CHRONIC BRONCHITIS 03/20/2018 GABBIE AZUL MD Ot R06.02 SHORTNESS OF BREATH 03/20/2018 GABBIE AZUL MD Ot Z79.52 RETIREMENT (CURRENT) USE OF SYSTEMIC STER 03/20/2018 GABBIE AZUL MD Ot Z79.82 BAKERY TECHNICIAN (CURRENT) USE OF ASPIRIN 03/20/2018 GABBIE AZUL MD Ot Z79.84 RETIREMENT (CURRENT) USE OF ORAL HYPOGLYC 03/20/2018 GABBIE [...] BREATH 03/23/2018 GABBIE AZUL MD Ot Z79.52 BAKERY TECHNICIAN (CURRENT) USE OF SYSTEMIC STER 03/23/2018 GABBIE AZUL MD Ot Z79.82 BAKERY TECHNICIAN (CURRENT) USE OF ASPIRIN 03/23/2018 GABBIE AZUL MD Ot Z79.84 RETIREMENT (CURRENT) USE OF ORAL HYPOGLYC 03/23/2018 GABBIE [...] BREATH 04/20/2018 GABBIE AZUL MD Ot Z79.52 RETIREMENT (CURRENT) USE OF SYSTEMIC STER 04/20/2018 GABBIE AZUL MD Ot Z79.82 BAKERY TECHNICIAN (CURRENT) USE OF ASPIRIN 04/20/2018 GABBIE AZUL MD, Ot Z79.84 BAKERY TECHNICIAN (CURRENT) USE OF ORAL HYPOGLYC 04/20/2018 [...] LEG 06/25/2018 DAVID SINGH MD Ot Z79.51 BAKERY TECHNICIAN (CURRENT) USE OF INHALED STERO 06/25/2018 DAVID SINGH MD Ot Z79.82 RETIREMENT (CURRENT) USE OF ASPIRIN 06/25/2018 DAVID SINGH MD Ot Z79.84 BAKERY TECHNICIAN (CURRENT) USE OF ORAL HYPOGLYC 06/25/2018 DAVID [...] COUGH 08/17/2018 DAVID SINGH MD Ot Z79.51 RETIREMENT (CURRENT) USE OF INHALED STERO 08/17/2018 DAVID SINGH MD Ot Z79.82 RETIREMENT (CURRENT) USE OF ASPIRIN 08/17/2018 DAVID SINGH MD Ot Z79.84 RETIREMENT (CURRENT) USE OF ORAL HYPOGLYC 08/17/2018 DAVID [...] COUGH 08/18/2018 DAVID SINGH MD, Ot Z79.51 RETIREMENT (CURRENT) USE OF INHALED STERO 08/18/2018 DAVID SINGH MD Ot Z79.52 RETIREMENT (CURRENT) USE OF SYSTEMIC STER 08/18/2018 DAVID SINGH MD Ot Z79.82 BAKERY TECHNICIAN (CURRENT) USE OF ASPIRIN 08/18/2018 DAVID SINGH MD Ot Z79.84 BAKERY TECHNICIAN (CURRENT) USE OF ORAL HYPOGLYC 08/18/2018 DAVID [...] COUGH 08/20/2018 DAVID SINGH MD Ot Z79.51 BAKERY TECHNICIAN (CURRENT) USE OF INHALED STERO 08/20/2018 DAVID SINGH MD Ot Z79.82 BAKERY TECHNICIAN (CURRENT) USE OF ASPIRIN 08/20/2018 DAVID SINGH MD Ot Z79.84 RETIREMENT (CURRENT) USE OF ORAL HYPOGLYC 08/20/2018 DAVID [...] COUGH 08/21/2018 DAVID SINGH MD Ot Z79.51 BAKERY TECHNICIAN (CURRENT) USE OF INHALED STERO 08/21/2018 DAVID SINGH MD Ot Z79.52 RETIREMENT (CURRENT) USE OF SYSTEMIC STER 08/21/2018 DAVID SINGH MD Ot Z79.82 BAKERY TECHNICIAN (CURRENT) USE OF ASPIRIN 08/21/2018 DAVID SINGH MD Ot Z79.84 BAKERY TECHNICIAN (CURRENT) USE OF ORAL HYPOGLYC 08/21/2018 DAVID [...] COUGH 08/23/2018 DAVID SINGH MD Ot Z79.51 RETIREMENT (CURRENT) USE OF INHALED STERO 08/23/2018 DAVID SINGH MD Ot Z79.82 RETIREMENT (CURRENT) USE OF ASPIRIN 08/23/2018 DAVID SINGH MD Ot Z79.84 RETIREMENT (CURRENT) USE OF ORAL HYPOGLYC 08/23/2018 DAVID SINGH MD Ot Z80.0 FAMILY HISTORY OF MALIGNANT NEOPLASM OF 08/23/2018 DAVID SINGH MD Ot Z82.49 FAMILY HX OF ISCHEM HEART DIS AND OTH DI 08/23/2018 DAVID SINGH MD, Ot Z87.01 PERSONAL HISTORY OF PNEUMONIA (RECURRENT 08/23/2018 DAVDI SINGH MD, Ot Z87.19 PERSONAL HISTORY OF [...] UNSPECIFIED 10/19/2018 GIOVANNI SAUCEDA MD Ot Z79.51 RETIREMENT (CURRENT) USE OF INHALED STERO 10/19/2018 GIOVANNI SAUCEDA MD Ot Z79.52 BAKERY TECHNICIAN (CURRENT) USE OF SYSTEMIC STER 10/19/2018 GIOVANNI SAUCEDA MD Ot Z79.82 RETIREMENT (CURRENT) USE OF ASPIRIN 10/19/2018 GIOVANNI SAUCEDA MD Ot Z79.84 RETIREMENT (CURRENT) USE OF ORAL HYPOGLYC 10/19/2018 GIOVANNI [...] UNSPECIFIED 10/22/2018 GIOVANNI SAUCEDA MD, Ot Z79.51 BAKERY TECHNICIAN (CURRENT) USE OF INHALED STERO 10/22/2018 GIOVANNI SAUCEDA MD Ot Z79.52 BAKERY TECHNICIAN (CURRENT) USE OF SYSTEMIC STER 10/22/2018 GIOVANNI SAUCEDA MD Ot Z79.82 RETIREMENT (CURRENT) USE OF ASPIRIN 10/22/2018 GIOVANNI SAUCEDA MD, Ot Z79.84 RETIREMENT (CURRENT) USE OF ORAL HYPOGLYC 10/22/2018 GIOVANNI [...] for toxigenic C diff by DNA amplification [facility] CALL POSITIVES (F1 HELP) CALLED TO GERARDO STOUT 04/03/16 14:45 BY Mikey PAGAN [facility] Bacterial urine culture - 03/28/17 17:00 URINE CULTURE RESULTS <10,000/ML [facility] Complete blood count (CBC) with automated [...] EXTERNAL MANY NR QUANTITY OF GROWTH . [facility] FREE TEXT ENTRY 2 RML REPORTED SENSITIVITY 04/18 13:05 NR Stool bacteria identification by culture SEE COMMEN [facility] FREE TEXT ENTRY 3 CIPROFLOXACIN:INTERMEDIATE BY E-TEST [facility] RML Sensitivity Panel - 04/14/18 13:00 Trimethoprim/sulfamethoxazole susceptibility test by minimum inhibitoryconcentration R [facility] Ampicillin susceptibility test by minimum inhibitory concentration > [facility] Stool bacteria identification by culture - 05/01/18 09:20 QUANTITY OF GROWTH . [facility] Stool bacteria identification by culture SEE COMMEN [facility] Complete blood count (CBC) with automated [...] Status Pt. Type Provider Facility Loc./Unit Complaint [id number] 03/28/2019 09:28:00 03/28/2019 11:56:00 DIS Emergency NASREEN BLOUNT DO [facility] ER FALL [id number] 03/26/2019 16:15:00 03/26/2019 23:59:59 CLS Outpatient ROMERO MAGDALENO DO [facility] REHAB R TOTAL KNEE REVISION [id number] 11/03/2018 09:07:00 11/03/2018 23:59:59 CLS Outpatient DEBORAH HALL, KATHLEEN Koroma [facility] LAB E78.2 [id number] 10/19/2018 14:17:00 10/19/2018 18:35:00 DIS Emergency GIOVANNI SAUCEDA MD [facility] ER WEAK;SHAKY;DEHYDRATED [id number] 09/02/2018 13:30:00 09/02/2018 14:16:00 DIS Outpatient ROMERO MAGDALENO DO [facility] REHAB R TKA PAIN [id number] 08/18/2018 08:32:00 08/18/2018 09:36:00 DIS Emergency DAVID SINGH MD [facility] ER COUGH;RUNNY NOSE [id number] 08/17/2018 12:44:00 08/17/2018 14:20:00 DIS Emergency DAVID SINGH MD [facility] ER COLD LIKE SYMPTOMS [id number] 06/23/2018 06:04:00 06/23/2018 08:59:00 DIS Outpatient SAMANTHA HALL, DAVID Salter [facility] ER LEG PAIN [id number] 05/25/2018 00:46:00 05/25/2018 23:59:59 CLS Preadmit KATHLEEN CABRERA MD [facility] [id number] 05/01/2018 09:34:00 05/01/2018 23:59:59 CLS Outpatient CONNIE OLGUIN APRN [facility] LAB V12.09 [id number] 04/14/2018 09:44:00 04/24/2018 00:01:00 DIS Outpatient KATHLEEN CABRERA MD [facility] [id number] 03/20/2018 10:52:00 03/20/2018 23:59:59 CLS Outpatient KATHLEEN CABRERA MD [facility] RAD CHRONIC ALEXIS LOW BACK PAIN [id number] 03/20/2018 18:16:00 03/20/2018 21:20:00 DIS Outpatient GABBIE AZUL MD [facility] ER SOB [id number] 02/26/2018 17:40:00 02/26/2018 23:59:59 CLS Outpatient NIYA CHAVEZ-Christiano [facility] RAD COUGH [id number] 02/10/2018 14:22:00 02/10/2018 23:59:59 CLS Outpatient KATHLEEN CABRERA MD [facility] RAD HX KNEE REPLACEMENT,KNEE PAIN,KNEE SWELLING [id number] 09/10/2017 11:14:00 10/08/2017 15:33:00 DIS Outpatient HUMBLE GRAYSON MD [facility] REHAB INCOMPLETE BLADDER EMPTYING [id number] 05/25/2017 02:39:00 05/25/2017 23:59:59 CLS Preadmit KATHLEEN CABRERA MD [facility] REHAB R TOTAL KNEE [id number] 05/08/2017 10:28:00 05/24/2017 00:01:00 DIS Outpatient KATHLEEN CABRERA MD [facility] REHAB R TOTAL KNEE [id number] 05/03/2017 12:53:00 05/03/2017 12:53:00 CAN Preadmit NASREEN BLOUNT DO [facility] ER SOA [id number] 03/05/2017 10:04:00 04/01/2017 08:58:00 DIS [facility]R IT BAND SYNDROME [id number] 03/28/2017 19:27:00 03/28/2017 23:59:59 CLS Outpatient CONNIE OLGUIN APRN [facility] LAB ACUTE CYSTITIS WITH HEMATURIA [id number] 01/22/2017 11:26:00 02/26/2017 14:59:00 DIS Outpatient PER HALL, FLAVIA [facility] [id number] 12/30/2016 14:02:00 12/30/2016 23:59:59 CLS Outpatient KATHLEEN CABRERA MD [facility] RAD M25.561, G89.29 CHRONIC KNEE PAIN [id number] 12/30/2016 08:00:00 12/30/2016 23:59:59 CLS Outpatient KATHLEEN CABRERA MD [facility] RAD M25.561 G89.29 [id number] 12/27/2016 15:30:00 12/27/2016 23:59:59 CLS Outpatient PEPPER MARTINEZ [facility] RAD ACUTE RT KNEE PAIN [id number] 08/26/2016 00:15:00 08/26/2016 23:59:59 CLS Preadmit JONEL LOW MD [facility] REHAB S/P R TOTAL KNEE [id number] 08/08/2016 12:51:00 08/25/2016 00:01:00 DIS Outpatient [facility] [id number] 08/06/2016 13:16:00 08/06/2016 23:59:59 CLS Outpatient PEPPER MARTINEZ [facility] RAD INJURY OF GREAT TOE RT INITIAL ENCOUNTER,E959.7 [id number] 05/22/2016 10:21:00 05/24/2016 17:00:00 DIS Outpatient DEVANTE HALL, JONEL Mcguire [facility] REHAB S/P R TOTAL KNEE [id number] 04/25/2016 07:08:00 04/25/2016 23:59:59 CLS Outpatient KATHLEEN CABRERA MD [facility] RAD PAINFUL POSTERIOR LEG [id number] 04/01/2016 11:55:00 2016 17:26:00 DIS Inpatient KATHLEEN CABRERA MD [facility] 4TH SEVERE PAIN RT KNEE,NAUSEA,VOMITING [id number] 12/13/2015 14:28:00 12/13/2015 23:59:59 CLS Outpatient KATHLEEN CABRERA MD [facility] LAB HYPOTHYROIDISM,ANEMIA [id number] 05/11/2015 13:55:00 05/15/2015 10:23:00 DIS Inpatient KATHLEEN CABRERA MD [facility] 4TH PAIN ABD,PELVIS [id number] 12/06/2014 11:22:00 12/06/2014 23:59:59 CLS Outpatient KATHLEEN CABRERA MD [facility] RAD HOARSENESS, LEISION [id number] 07/14/2014 11:19:00 07/14/2014 23:59:59 CLS Outpatient RIC FLOREZ MD [facility] RAD [id number] 02/11/2014 12:43:00 02/13/2014 10:40:00 DIS Inpatient KATHLEEN CABRERA MD Via [address] [id number] 10/19/2013 18:45:00 10/21/2013 11:00:00 DIS Inpatient KATHLEEN CABRERA MD Via [address] [id number] 10/16/2013 13:56:00 10/18/2013 09:30:00 DIS Inpatient KATHLEEN CABRERA MD Via [address] [id number] 10/06/2013 16:55:00 10/15/2013 09:35:00 DIS Outpatient KATHLEEN CABRERA MD [facility] [id number] 09/27/2013 15:40:00 10/05/2013 10:15:00 DIS Inpatient KATHLEEN CABRERA MD Via [address] [id number] 09/01/2013 15:25:00 09/05/2013 14:15:00 DIS Inpatient BIJAN MIGUEL DO Via [address] [id number] 07/28/2013 00:43:00 08/02/2013 13:25:00 DIS Inpatient KATHLEEN CABRERA MD Via [address] ABD PAIN/VOMITING [id number] 07/15/2013 16:50:00 07/21/2013 13:45:00 DIS Inpatient KATHLEEN CABRERA MD Via [address] CONSTIPATION [id number] 07/15/2013 00:31:00 07/15/2013 01:59:00 DIS Emergency MINE DONASREEN [facility] ER STOMACH PAIN [id number] 04/15/2013 08:31:00 04/15/2013 23:59:59 CLS Outpatient KATHLEEN CABRERA MD [facility] RAD DYSPHAGIA [id number] 02/20/2013 14:44:00 02/20/2013 17:53:00 DIS Emergency NASREEN BLOUNT DO [facility] ER FALL [id number] 02/15/2013 16:32:00 02/19/2013 12:10:00 DIS Inpatient KATHLEEN CABRERA MD Via [address] ABD PAIN [id number] 11/12/2012 07:30:00 Document Registration [id number] 10/20/2012 10:05:00 Document Registration [id number] 07/27/2012 22:28:00 Document Registration [id number] 12/07/2014 05:33:40 ACT Document Registration
[2019-03-30] MEDS ORDERED: FLUT1AER INH (16:30)
[2019-03-30] MEDS ORDERED: PRAM0.5T9 PO (16:30)
[2019-03-30] MEDS ORDERED: HYDR25TA4 PO (16:30)
[2019-03-30] MEDS ORDERED: FERR325T18 PO (16:30)
[2019-03-30] MEDS ORDERED: LACT1CAP72 PO (16:30)
[2019-03-30] MEDS ORDERED: LORA2TAB PO (16:30)
[2019-03-30] MEDS ORDERED: DICY10CA12 PO (16:30)
[2019-03-30] MEDS ORDERED: TRAZ-222 PO (16:30)
[2019-03-30] MEDS ORDERED: SITA100T12 PO (16:30)
[2019-03-30] MEDS ORDERED: DICL100G31 TOP (16:30)
[2019-03-30] MEDS ORDERED: LOPE-134 PO (16:30)
[2019-03-30] MEDS ORDERED: ZOLP12.546 PO (16:30)
[2019-03-30] MEDS ORDERED: OXYC-529 PO (16:30)
[2019-03-30] MEDS ORDERED: FEXO180T84 PO (16:30)
[2019-03-30] MEDS ORDERED: HYDR4TAB PO (16:30)
[2019-03-30] MEDS ORDERED: ACET-2267 PO (16:30)
[2019-03-30] MEDS ORDERED: PANT40TA3 PO (16:30)
[2019-03-30] MEDS ORDERED: NSTR15O TOP (16:30)
[2019-03-30] MEDS ORDERED: OXYB10TA PO (16:30)
[2019-03-30] MEDS ORDERED: CITA20TA9 PO (16:30)
[2019-03-30] MEDS ORDERED: ASCO-262 PO (16:30)
[2019-03-30] MEDS ORDERED: DOCU-143 PO (16:30)
[2019-03-30] MEDS ORDERED: CELE-63 PO (16:30)
--- NOTE | 2019-03-30 16:36 | Diagnostic Imaging Report ---
PROCEDURE: US Renal Bilateral. TECHNIQUE: Multiple real-time grayscale images were obtained over the kidneys in various projections bilaterally. INDICATION: Urinary tract infection. COMPARISON: None. FINDINGS: Both kidneys are normal in size. The right kidney measures 14 cm in length and the left is 11 cm. The cortical thickness and the cortical medullary differentiation is well maintained. There is no evidence of calculi, concerning mass lesion or hydronephrosis. Incidental note of potential hepatic steatosis. The urinary bladder is normally filled without wall thickening. Ureteral jets are not seen on this exam, although this is likely due to lack of peristalsis during imaging. IMPRESSION: 1. No hydronephrosis or renal atrophy. 2. Normal sonographic appearance of the urinary bladder. 3. Incidental note of potential diffuse hepatic steatosis. Dictated by: Dictated on workstation # [id number]
--- NOTE | 2019-03-30 16:38 | NUR ---
SPOKE WITH THE PATIENTS ABOUT THE PATIENTS MEDICATIONS. SHE WAS IN THE ROOM BUT DID NOT ANSWER ALL QUESTIONS APPROPRIATELY. HE STATES HE HAS BEEN HELPING HER WITH HER MEDICATIONS SINCE HER KNEE REPLACEMENT, PRIOR TO THAT SHE MANAGED ALL OF HER OWN MEDICATIONS. AFTER TALKING WITH HIM THOUGH IT APPEARS SHE STILL TAKES SOME OF THE MEDS ON HER OWN. I COMPARED THE BOTTLES SHE BROUGHT IN WITH HER TO THE EXT MED HX. SHE FILLED GLYXAMBI 10-5MG 03-23-19 HOWEVER HER STATES THEY DID NOT PICK IT UP BECAUSE THAT MEDICATION WAS STOPPED AND SHE WAS STARTED ON JANUVIA 100MG. SHE WAS GIVEN SAMPLES AND HE HAS ONE SLEEVE OF PILLS WITH HIM HERE NOW. ALSO STATES THE METFORMIN WAS DISCONTINUED. GABAPENTIN 600MG WAS FILLED #270 FOR A 30 DAY SUPPLY 02-06-19 - STATES IT WAS DECREASED TO 1 TAB TID BUT AFTER KNEE PAIN CONTINUED IT WAS INCREASED TO 2 TABS TID. SHE FILLED HYDROMORPHONE 4MG #60 01-22-19 - THE BOTTLE SHE HAS IN HER BOX IS EMPTY HOWEVER IT WAS NOT THE MOST RECENTLY FILLED DATED BOTTLE AND HER STATES SHE DOES USE IT OCCASIONALLY IF THE PAIN IS BAD. SHE FILLED TRAZODONE 50MG #90 FOR 90 DAYS 12-24-18 - SHE HAS THIS BOTTLE WITH HER WELL A BOTTLE OF ZOLPIDEM ER 12.5MG #30 FILLED 03-08-19. HER STATES SHE DID NOT TAKE THE TRAZODONE FOR AWHILE AFTER IT WAS PRESCRIBED. SHE HAS SINCE STOPPED THE AMBIEN AND STARTED THE TRAZODONE HOWEVER IT WAS WORKING WELL SO TOLD HER TO INCREASE TO 2 TRAZODONE HS INSTEAD OF ONLY 1. HER MENTIONED SHE WAS GOING TO TRY TO STOP THE LORAZEPAM WELL BUT HE THINKS SHE STILL TAKES IT FROM TIME TO TIME NEEDED. SHE FILLED NYSTATIN TRIAMCINOLONE OINTMENT 03-26-19 AND BETAMETHASONE OINTMENT 03-18-19 HOWEVER [place]ONS STATES NEITHER HAS BEEN PICKED UP. SHE FILLED FLUCONAZOLE 150MG #2 TABLETS 03-24-19 AND STATES SHE DID COMPLETE THAT THERAPY. THE CREAMS WERE FOR A VAGINAL RASH WELL WHICH HER THOUGHT SHE WAS USING HOWEVER SINCE NEITHER HAVE BEEN PICKED UP I DID NO INCLUDE THEM ON THE MED REC. OTC MEDICATIONS: MIRALAX DAILY IMODIUM PRN PROBIOTIC DAILY VITAMIN C TID IRON 325MG DAILY COLACE PRN HALEY 180MG PRN TYLENOL PRN
--- NOTE | 2019-03-30 16:52 | NUR ---
someone did 500 ns bolus short while ago for me.
--- NOTE | 2019-03-30 16:57 | History & Physical-Hospitalist ---
History of Present Illness HPI/Chief Complaint Micki Kelley is a 68yoF with PMH HTN, T2DM, HLD, who presents with altered mental status. Her says that this started yesterday. They had been in [place] for she was having some word finding difficulties he brought her back home to [place] and brought her to the emergency room. He reports that she was having chills in the car and that she then developed nausea and vomiting. She denies fevers. She denies any headache, vision changes, and neck stiffness. She denies dyspnea and cough. She denies abdominal pain and diarrhea. She denies dysuria and frequency, but has had chronic issues with urgency, for which she was in [place] seeing a physician. She denies any back pain. She did have a total right knee replacement about two months ago. This was a replacement of hardware which was originally placed about three years ago. Her surgeon was Dr. Mullen at [facility] in [place]. She had a fall about a month ago. Her right knee has been more warm than her left since the surgery. She denies any skin changes. Source: patient, family Exam Limitations: no limitations Date Seen 03/30/19 Time Seen by a Provider: 16:00 Attending Physician Mary Herring MD PCP Sebas Mullen DO Referring Physician Date of Admission Mar 30, 2019 at 15:42 Home Medications & Allergies Home Medications Reviewed patient Home Medication Reconciliation performed by pharmacy medication reconciliations remote sensing technician and/or nursing. Patients Allergies have been reviewed. Allergies Allergies Coded Allergies No Known Drug Allergies (Unverified02/11/14) Past Hjyrqvk-Rufrlh-Kbgvfl Hx Past Med/Social Hx: Reviewed Nursing Past Med/Soc Hx Patient Social History Alcohol Use: Rarely Uses Recreational Drug Use: No Smoking Status: Never a Smoker 2nd Hand Smoke Exposure: No Recent Foreign Travel: No Contact w/other who traveled: No Recent Hopitalizations: Yes (january 24 right knee replacement, SEPT FOR 5 DAYS (LUNG ISSUES)) Recent Infectious Disease Expo: No Immunizations Up To Date Tetanus Booster (TDap): More than 5yrs Date of Pneumonia Vaccine: Oct 04, 2011 Date of Influenza Vaccine: Jul 06, 2013 Seasonal Allergies Seasonal Allergies: No Past Medical History Surgeries: Abdominal, Gallbladder, Orthopedic Cardiac: High Cholesterol Reproductive: No Sexually Transmitted Disease: No HIV/AIDS: No Female Reproductive Disorders: Denies Gastrointestinal: Chronic Constipation, Chronic Diarrhea Musculoskeletal: Arthritis, Chronic Back Pain HEENT: Cataract Loss of Vision: Denies Hearing Impairment: Denies History of Blood Disorders: No Adverse Reaction to Blood Krause: No Family History Reviewed Nursing Family Hx Cancer 03 FATHER (PANCREATIC, PASSED AT 65 FROM THIS) Cataract 03 MOTHER Dementia 03 MOTHER Family history: Arthritis 03 MOTHER Family history: Cardiovascular disease 03 MOTHER (HIGH CHOLESTEROL, BALOON ARTERIES 2 TIMES) Hearing loss 03 MOTHER Hypercholesterolemia 03 MOTHER Cancer Review of Systems Constitutional: chills, malaise EENTM: no symptoms reported Respiratory: No cough, No short of breath Cardiovascular: No chest pain, No edema Gastrointestinal: No abdominal pain, No diarrhea; nausea, vomiting Genitourinary: No dysuria, No frequency; other (urgency) Musculoskeletal: No back pain; joint pain; No neck pain Skin: No change in color, No rash Psychiatric/Neurological: No Symptoms Reported Physical Exam Physical Exam Vital Signs Vital Signs - First Documented 03/30/19 11:57 Temp 99.4 Pulse 80 Resp 20 B/P (MAP) 150/73 (98) Pulse Ox 94 O2 Delivery Room Air Capillary Refill : Less Than 3 Seconds Height, Weight, BMI Height: 5'4.00" Weight: 226lbs. 0.0oz. 102.801136uz; 34.7 BMI Method:Stated General Appearance: No Apparent Distress, Obese, Other (ill appearing) HEENT: PERRL/EOMI; No Moist Mucous Membranes Neck: Full Range of Motion, Normal Inspection, Non Tender, Supple Respiratory: Lungs Clear, Normal Breath Sounds, No Respiratory Distress; No Crackles, No Decreased Breath Sounds, No Wheezing Cardiovascular: Regular Rate, Rhythm, No Edema, No Murmur Gastrointestinal: Normal Bowel Sounds, Non Tender, Soft Back: Normal Inspection, No CVA Tenderness Extremity: Normal Range of Motion; No Swelling; Other (right knee warmer than left, without erythema) Neurologic/Psychiatric: Alert, No Motor/Sensory Deficits, Disoriented Skin: Normal Color, Warm/Dry, Other (right knee prior anterior surgical i ncision clean/dry/intact) Lymphatic: No Adenopathy Results Results/Procedures Labs Laboratory Tests 03/30/19 12:14 Patient resulted labs reviewed. Imaging: Reviewed Imaging Report Assessment/Plan Admission Diagnosis Sepsis due to pyelonephritis Admission Status: Inpatient Order (span 2 midnights) Reason for Inpatient Admission: Acute kidney injury Septic encephalopathy Assessment and Plan Micki Kelley is a 68yoF with PMH HTN, T2DM, HLD who presented with altered mental status and was found to have sepsis due to pyelonephritis. #Sepsis due to pyelonephritis #Septic encephalopathy -SIRS+ with leukocytosis, respiratory rate, and altered mentation -UA consistent with UTI, culture pending -CXR and CT Chest without evidence of respiratory infection -CT Head without acute intracranial abnormalities -Given IV fluid bolus in ER -Blood cultures drawn -Lactic acid normal -Started on Ceftriaxone for pyelonephritis -Continue NS 100 ml/hr #Acute kidney injury -Cr 1.28 on admission, up from baseline ~0.8 -Continue IV fluids and repeat BMP tomorrow #History of total knee replacement -No clear evidence of prosthetic joint infection (range of motion intact, no erythema) -Right knee warmth reportedly chronic since joint replacement -Continue to monitor #Type 2 diabetes mellitus -Takes Januvia at home -Begin sliding scale while inpatient Diagnosis/Problems Diagnosis/Problems (1) Sepsis due to urinary tract infection (2) Pyelonephritis (3) Septic encephalopathy (4) Acute kidney injury (5) History of knee replacement MARY HERRING MD Mar 30, 2019 16:57
--- NOTE | 2019-03-30 17:37 | NUR ---
i called report to admit nurse eloisa. someone will take pt to admit room madelaine.
--- NOTE | 2019-03-30 17:50 | NUR ---
i have not seen pt for along time, now i am in room. pt alert gcs 15. in room. bp machine is 151/62 ausc hr 88 reg ausc resp 24 shallow nonlabored. recheck temp [address] is 101.1 and 101.3. p ox r/a is 94. 100 left in bolus. no acute sighns of dyspnea noted. pt not on o2 or tele. i called admit nurse told her bout the temp and bolus.
--- NOTE | 2019-03-30 17:53 | NUR ---
i am taking pt to admit room now.
--- NOTE | 2019-03-30 17:53 | NUR ---
BOLUS COMPLETED ON WAY TO ADMIT ROOM.
[2019-03-30] MEDS ORDERED: NS IV 1000 ML 1,000 ML IV SCH (18:15)
[2019-03-30] MEDS ORDERED: ONDANSETRON 4 MG/2 ML (SDV) Z0FRAN IVP PRN (18:15)
[2019-03-30 18:16] VITALS: BP 150/65
--- NOTE | 2019-03-30 18:25 | NUR ---
PT ARRIVED TO FLOOR WITH ED NURSE AT SIDE. A/O X3. ORIENTED PT TO ROOM. CALL LIGHT WITHIN REACH. FAMILY AT BEDSIDE. WILL MONITOR PT CLOSELY.
--- NOTE | 2019-03-30 18:27 | NUR ---
DR HERRING NOTIFIED OF TEMP, NEW ORDERS PLACED IN EMAR
[2019-03-30] MEDS ORDERED: ACETAMINOPHEN 325 MG TABLET PO PRN (18:30)
[2019-03-30] MEDS: NS IV 1000 ML 1,000 ML IV SCH (18:43)
[2019-03-30 20:27] VITALS: BP 130/60
[2019-03-30] MEDS: inSUlin ASPART (NovoLOG) 1 UNIT/0.01 ML (CHARGE PER UNIT) SC SCH (20:44)
[2019-03-30] MEDS: oxyCODONE/APAP 5/325MG (PERCOCET 5) TABLET PO PRN (20:44)
[2019-03-31] VITALS: BP 120/57
[2019-03-31] MEDS: oxyCODONE/APAP 5/325MG (PERCOCET 5) TABLET PO PRN ×3 (01:20→17:34)
[2019-03-31 04:00] VITALS: BP 113/56
[2019-03-31] MEDS: NS IV 1000 ML 1,000 ML IV SCH ×2 (04:32→15:53)
[2019-03-31] MEDS: inSUlin ASPART (NovoLOG) 1 UNIT/0.01 ML (CHARGE PER UNIT) SC SCH ×4 (06:44→21:19)
[2019-03-31 06:56] LABS: BASOPHILS % (AUTO) 0 % (0-10); EOSINOPHILS % (AUTO) 0 % (0-10); HEMATOCRIT 37 % (35-52); HEMOGLOBIN 11.5 G/DL (11.5-16.0); LYMPHOCYTES # (AUTO) 0.5 X 10^3 (1.0-4.0); LYMPHOCYTES % (AUTO) 7 % (12-44); MEAN CORPUSCULAR HEMOGLOBIN 26 PG (25-34); MEAN CORPUSCULAR HGB CONC 31 G/DL (32-36); MEAN CORPUSCULAR VOLUME 84 FL (80-99); MEAN PLATELET VOLUME 10.8 FL (7.4-10.4); MONOCYTES # (AUTO) 0.5 X 10^3 (0.0-1.0); MONOCYTES % (AUTO) 7 % (0-12); NEUTROPHILS # (AUTO) 6.7 X 10^3 (1.8-7.8); NEUTROPHILS % (AUTO) 87 % (42-75); PLATELET COUNT 128 10^3/uL (130-400); RED CELL DISTRIBUTION WIDTH 19.5 % (10.0-14.5); WHITE BLOOD COUNT 7.8 10^3/uL (4.3-11.0)
[2019-03-31 07:25] LABS: ALBUMIN 3.2 GM/DL (3.2-4.5); BILIRUBIN,TOTAL 1.2 MG/DL (0.1-1.0); CALCIUM 8.9 MG/DL (8.5-10.1); CREATININE SERUM 1.11 MG/DL (0.60-1.30); TOTAL PROTEIN 6.1 GM/DL (6.4-8.2)
[2019-03-31 08:00] VITALS: BP 139/68
[2019-03-31] MEDS: cefTRIAXone FOR IV USE 2,000 MG in WATER (STERILE) FOR INJECTION 20 ML IV SCH (08:08)
[2019-03-31 12:00] VITALS: BP 108/67
--- NOTE | 2019-03-31 13:20 | NUR ---
Pastoral care visit.
--- NOTE | 2019-03-31 13:52 | Progress Note - Hospitalist ---
Subjective HPI/CC On Admission Date Seen by Provider: Mar 31, 2019 Time Seen by Provider: 09:30 altered mental status Subjective/Events-last exam She reports some continued word finding diffficulties. She had an episode of nausea and vomiting after arriving to the floor last night. She reports some nausea this morning. She denies fevers and chills today. She denies chest pain and dyspnea. She denies abdominal pain. Review of Systems General: No Chills HEENT: No Head Aches Pulmonary: No Dyspnea, No Cough Cardiovascular: No: Chest Pain, Edema Gastrointestinal: Nausea, Vomiting; No: Abdominal Pain Genitourinary: No Dysuria Neurological: Change in speech Focused Exam Lactate Level 03/30/19 12:14: Lactic Acid Level 1.47 Objective Exam Vital Signs Vital Signs Date Time Temp Pulse Resp B/P (MAP) Pulse Ox O2 Delivery O2 Flow Rate FiO2 03/31/19 12:00 96.6 62 20 108/67 (81) 96 Nasal Cannula 2.00 Capillary Refill : Less Than 3 Seconds General Appearance: No Apparent Distress, WD/WN, Obese HEENT: PERRL/EOMI, Pharynx Normal Neck: Normal Inspection, Non Tender, Supple Respiratory: Lungs Clear, Normal Breath Sounds, No Respiratory Distress Cardiovascular: Regular Rate, Rhythm, No Edema, No Murmur Gastrointestinal: Normal Bowel Sounds, Non Tender, Soft Extremity: No Pedal Edema, Other (right vallejo tenderness) Neurologic/Psychiatric: Alert; No Disoriented Skin: Normal Color, Warm/Dry Results/Procedures Lab Laboratory Tests 03/31/19 06:04 Patient resulted labs reviewed. Imaging: Reviewed Imaging Report Assessment/Plan Assessment and Plan Assess & Plan/Chief Complaint Micki Kelley is a 68yoF with PMH HTN, T2DM, HLD who presented with altered mental status and was found to have sepsis due to pyelonephritis. #Severe sepsis due to pyelonephritis #Gram negative myra bacteremia #Septic encephalopathy -SIRS+ with leukocytosis, respiratory rate, and altered mentation -UA consistent with UTI, culture pending -T bili >2 -Blood cultures positive for gram negative rods -Continue Ceftriaxone -Continue NS 100 ml/hr #Acute kidney injury -Improving -Continue IV fluids and continue to monitor #History of total knee replacement -Continue to monitor #Type 2 diabetes mellitus -Sliding scale insulin Diagnosis/Problems Diagnosis/Problems (1) Severe sepsis with acute organ dysfunction due to gram-negative bacteria Status: Acute (2) Sepsis due to urinary tract infection Status: Acute (3) Pyelonephritis Status: Acute (4) Gram-negative bacteremia Status: Acute (5) Septic encephalopathy Status: Acute (6) Acute kidney injury Status: Acute (7) History of knee replacement Status: Chronic Clinical Quality Measures DVT/VTE Risk/Contraindication: Risk Factor Score Per Nursin RFS Level Per Nursing on Admit: 4+=Very High DANICA HERRING MD Mar 31, 2019 13:52
[2019-03-31] MEDS ORDERED: cefTRIAXone 1,000 MG/SWFI 10 ML IV PUSH IV SCH ×2 (14:00)
[2019-03-31 16:00] VITALS: BP 123/72
--- NOTE | 2019-03-31 20:24 | NUR ---
PT REQUESTED TO START SOME HOME MEDS. THIS RN CALLED DR. YOU. NEW ORDERS RECEIVED.
[2019-03-31 20:45] VITALS: BP 121/71
[2019-03-31] MEDS: UMECLIDINIUM BROMIDE (INCRUSE ELLIPTA) 7'S IH SCH (21:07)
[2019-03-31] MEDS: PRAMIPEXOLE 0.5 MG TAB (MIRAPEX) PO SCH (21:18)
[2019-04-01] VITALS: BP 128/78
[2019-04-01] MEDS: oxyCODONE/APAP 5/325MG (PERCOCET 5) TABLET PO PRN ×2 (00:37→05:41)
[2019-04-01] MEDS: NS IV 1000 ML 1,000 ML IV SCH ×3 (02:27→22:43)
[2019-04-01 04:00] VITALS: BP 119/58
[2019-04-01 05:37] LABS: BASOPHILS % (AUTO) 0 % (0-10); EOSINOPHILS % (AUTO) 0 % (0-10); HEMATOCRIT 35 % (35-52); HEMOGLOBIN 10.9 G/DL (11.5-16.0); LYMPHOCYTES # (AUTO) 0.8 X 10^3 (1.0-4.0); LYMPHOCYTES % (AUTO) 12 % (12-44); MEAN CORPUSCULAR HEMOGLOBIN 26 PG (25-34); MEAN CORPUSCULAR HGB CONC 31 G/DL (32-36); MEAN CORPUSCULAR VOLUME 84 FL (80-99); MEAN PLATELET VOLUME 11.7 FL (7.4-10.4); MONOCYTES # (AUTO) 0.7 X 10^3 (0.0-1.0); MONOCYTES % (AUTO) 10 % (0-12); NEUTROPHILS # (AUTO) 5.2 X 10^3 (1.8-7.8); NEUTROPHILS % (AUTO) 78 % (42-75); PLATELET COUNT 130 10^3/uL (130-400); RED CELL DISTRIBUTION WIDTH 19.1 % (10.0-14.5); WHITE BLOOD COUNT 6.7 10^3/uL (4.3-11.0)
[2019-04-01 05:47] LABS: BUN/CREATININE RATIO 22; CALCIUM 8.8 MG/DL (8.5-10.1); CARBON DIOXIDE 19 MMOL/L (21-32); CHLORIDE 105 MMOL/L (98-107); CREATININE SERUM 0.85 MG/DL (0.60-1.30); GFR ESTIMATED > 60; GLUCOSE 160 MG/DL (70-105); SODIUM 136 MMOL/L (135-145)
[2019-04-01] MEDS: inSUlin ASPART (NovoLOG) 1 UNIT/0.01 ML (CHARGE PER UNIT) SC SCH ×4 (06:03→22:40)
[2019-04-01] MEDS: cefTRIAXone FOR IV USE 2,000 MG in WATER (STERILE) FOR INJECTION 20 ML IV SCH (06:28)
[2019-04-01] MEDS: UMECLIDINIUM BROMIDE (INCRUSE ELLIPTA) 7'S IH SCH (07:10)
[2019-04-01 07:52] VITALS: BP 117/57
[2019-04-01] MEDS: PRAMIPEXOLE 0.5 MG TAB (MIRAPEX) PO SCH ×3 (09:11→20:11)
[2019-04-01] MEDS ORDERED: MEROPENEM 1,000 MG in WATER (STERILE) FOR INJECTION 20 ML IV SCH (09:15)
[2019-04-01] MEDS: MEROPENEM 500 MG/SWFI 10 ML IV PUSH IV SCH ×6 (09:57→21:30)
[2019-04-01] MEDS ORDERED: DOCUSATE SODIUM 100 MG (COLACE) CAP PO PRN (10:00)
[2019-04-01] MEDS ORDERED: BISACODYL 10 MG SUPP (DULCOLAX) PR PRN (10:00)
[2019-04-01] MEDS: OXYBUTYNIN (DITROPAN) 5 MG TAB PO SCH ×2 (10:41→20:12)
--- NOTE | 2019-04-01 11:41 | Progress Note - Hospitalist ---
Subjective HPI/CC On Admission Date Seen by Provider: Apr 01, 2019 Time Seen by Provider: 10:00 altered mental status Subjective/Events-last exam She reports feeling a bit better today. Her confusion has resolved. She is feeling weak with transfers to the toilet. She is having right leg pain in her ankle which is chronic. She has not had any more nausea and vomiting. She denies any fevers or chills. Focused Exam Lactate Level 03/30/19 12:14: Lactic Acid Level 1.47 Objective Exam Vital Signs Vital Signs Date Time Temp Pulse Resp B/P (MAP) Pulse Ox O2 Delivery O2 Flow Rate FiO2 04/01/19 11:14 97.6 04/01/19 08:00 Room Air 04/01/19 07:52 54 22 117/57 (77) 95 2.00 Capillary Refill : Less Than 3 Seconds General Appearance: No Apparent Distress, WD/WN, Obese HEENT: PERRL/EOMI, Pharynx Normal Neck: Normal Inspection, Supple Respiratory: Lungs Clear, Normal Breath Sounds, No Respiratory Distress Cardiovascular: Regular Rate, Rhythm, No Edema, No Murmur Gastrointestinal: Normal Bowel Sounds, Non Tender, Soft, Distended Extremity: Other (right ankle and vallejo tenderness, no erythema or swelling noted, right anterior knee surgical incision) Neurologic/Psychiatric: Alert, No Motor/Sensory Deficits; No Disoriented Skin: Normal Color, Warm/Dry Lymphatic: No Adenopathy Results/Procedures Lab Laboratory Tests 04/01/19 04:40 04/01/19 04:45 Patient resulted labs reviewed. Assessment/Plan Assessment and Plan Assess & Plan/Chief Complaint Micki Kelley is a 68yoF with PMH HTN, T2DM, HLD who presented with altered mental status and was found to have sepsis due to pyelonephritis. #Severe sepsis due to pyelonephritis #ESBL E coli bacteremia #Septic encephalopathy -Blood cultures positive for ESBL E. coli -Contact precautions initiated -Urine culture positive for E coli, susceptibilities pending -Transition from Ceftriaxone to Meropenem -Continue NS 100 ml/hr #Acute kidney injury -Resolved -Continue IV fluids and continue to monitor #History of total knee replacement -Continue to monitor #Type 2 diabetes mellitus -Sliding scale insulin Diagnosis/Problems Diagnosis/Problems (1) Severe sepsis with acute organ dysfunction due to gram-negative bacteria Status: Acute (2) Sepsis due to urinary tract infection Status: Acute (3) Pyelonephritis Status: Acute (4) Gram-negative bacteremia Status: Acute (5) Septic encephalopathy Status: Acute (6) Acute kidney injury Status: Acute (7) History of knee replacement Status: Chronic (8) ESBL (extended spectrum beta-lactamase) producing bacteria infection Clinical Quality Measures DVT/VTE Risk/Contraindication: Risk Factor Score Per Nursin RFS Level Per Nursing on Admit: 4+=Very High DANICA HERRING MD Apr 01, 2019 11:41
--- NOTE | 2019-04-01 12:53 | Occupational Therapy Eval ---
OT Evaluation-General/PLF Medical Diagnosis Admission Date Mar 30, 2019 at 15:42 Medical Diagnosis: UTI, AMS Onset Date: Apr 01, 2019 Therapy Diagnosis Therapy Diagnosis: impaired ADL and mobility Height/Weight Height (Feet): 5 Height (Inches): 4.00 Weight (Pounds): 232 Weight (Ounces): 0.0 Precautions Precautions/Isolations: Fall Prevention, Standard Precautions Safety Interventions: Bed Exit Alarm Weight Bear Status Weight Bearing Restriction: Weight Bearing/Tolerated Referral Referral Reason: Activity Tolerance, Self Care, Evaluation/Treatment, Strengthening/ROM Medical History Pertinent Medical History: HTN Additional Medical History per h&P: "Micki Kelley is a 68yoF with PMH HTN, T2DM, HLD, who presents with altered mental status. Her says that this started yesterday. They had been in [place] for she was having some word finding difficulties he brought her back home to [place] and brought her to the emergency room. He reports that she was having chills in the car and that she then developed nausea and vomiting. She denies fevers. She denies any headache, vision changes, and neck stiffness. She denies dyspnea and cough. She denies abdominal pain and diarrhea. She denies dysuria and frequency, but has had chronic issues with urgency, for which she was in [place] seeing a physician. She denies any back pain. She did have a total right knee replacement about two months ago. This was a replacement of hardware which was originally placed about three years ago. Her surgeon was Dr. Mullen at [facility] in [place]. She had a fall about a month ago. Her right knee has been more warm than her left since the surgery. She denies any skin changes." Reviewed History: Yes Social History Home: Single Level Current Living Status: Significant Other Entry Into Home: Stairs With Railing Steps Into Home: 2 ADL-Prior Level of Function Therapy Code Descriptions/Definitions Functional [place] Measure: 0=Not Assessed/NA 4=Minimal Assistance 1=Total Assistance 5=Supervision or Setup 2=Maximal Assistance 6=Modified [place] 3=Moderate Assistance 7=Complete [place] Therapy Quality Codes: 6 Independent with activity with or without an assistive device 5 Patient requires set up or clean up by helper. Patient completes activity by themselves 4 Supervision or touching assist (CGA). [place] provide cues , steadying assist 3 The helper provides less than half the effort to complete the activity 2 The helper provides more than half the effort to complete the activity 1 Dependent. The helper does all the effort to complete an activity 7 Patient refused to complete or attempt activity 9 The patient did not perform the activity before the current illness or injury 88 Not attempted due to Medical conditions or safety concerns Functional Abilities and Goals: Independent: Patient completed the activities by him/herself, with or without an assistive device, with no assistance from a helper. Needed Some Help: Patient needed partial assistance from another person to complete activities. Dependent: A helper completed the activities for the patient. Unknown: Not Applicable: ADL PLOF Comments pt indep PLOF using no AD. pt recently had R knee replacement 2 months ago Self Care: Independent Functional Cognition: Independent DME/Equipment: Tub/Shower Drive Self: Yes OT Current Status Subjective pt laying in bed upon OT arrival. pt present in room. pt agreed to OT eval/ treatment session. pt c/o 6/10 R knee pain. Mental Status/Objective Patient Orientation: Person, Place, Time, Situation Attachments: IV, Oxygen Current Glasses/Contacts: No Hearing Aids: No Dentures/Partials: No Hand Dominance: Right Upper Extremity ROM WNL Upper Extremity Coordination WNL Upper Extremity Sensation WNL Upper Extremity Strength 4+/5 MMT ADL-Treatment Therapy Code Descriptions/Definitions Functional [place] Measure: 0=Not Assessed/NA 4=Minimal Assistance 1=Total Assistance 5=Supervision or Setup 2=Maximal Assistance 6=Modified [place] 3=Moderate Assistance 7=Complete [place] Therapy Quality Codes: 6 Independent with activity with or without an assistive device 5 Patient requires set up or clean up by helper. Patient completes activity by themselves 4 Supervision or touching assist (CGA). [place] provide cues , steadying assist 3 The helper provides less than half the effort to complete the activity 2 The helper provides more than half the effort to complete the activity 1 Dependent. The helper does all the effort to complete an activity 7 Patient refused to complete or attempt activity 9 The patient did not perform the activity before the current illness or injury 88 Not attempted due to Medical conditions or safety concerns Grooming (FIM): 4 (CGA for safety/ balance) Lower Body Dressing (FIM): 5 (crystal socks. sitting EOB. noted increase timing and figure four positioning ) Transfers (B, C, W/C) (FIM): 2 (without RW pr required MAX A with RW pt required CGA ) Other Treatments pt perform supine to sit with MIN A. pt education on safe sit to stands using RW. pt trailed to perform functional transfer from bed to chair (approx 6ft) and required MAX A. pt perform 3 sit to stands using RW with education on proper positioning / hand placement and CGA. pt then ambulated to chair with RW and required CGA. pt sitting in chair post OT Session, call light within reach, all needs met. Education OT Patient Education: Energy conservation, Progress toward Goal/Update tx plan, Purpose of tx/functional activities, Reviewed precautions, Safety issues, Transfer techniques, Use of adapted equipment Teaching Recipient: Patient Teaching Methods: Demonstration, Discussion Response to Teaching: Verbalize Understanding, Return Demonstration OT Short Term Goals Short Term Goals Time Frame: Apr 08, 2019 Grooming(FIM): 6 Bathing(FIM): 5 Lower Body Dressing(FIM): 5 Toileting(FIM): 5 Transfers (B,C,W/C) (FIM): 5 Toilet/Commode Transfer(FIM): 5 Additional Short Term Goals: 1-Demonstrate ADL Tasks, 2-Verbalize Understanding, 3-ImproveStrength/Rea 1=Demonstrate adherence to instructed precautions during ADL tasks. 2=Patient will verbalize/demonstrate understanding of assistive devices/modifications for ADL. 3=Patient will improve strength/tolerance for activity to enable patient to perform ADL's. OT Learning Development Specialist Goals Senior Living Goals Time Frame: Apr 15, 2019 Grooming(FIM): 6 Bathing(FIM): 6 Bathing Location: L Arm, R Arm, L Upper Leg, R Upper Leg, L Lower Leg (including foot), R Lower Leg (including foot), Chest, Abdomen, Buttocks, Perineal Area Lower Body Dressing(FIM): 6 Toileting(FIM): 6 Transfers (B,C,W/C) (FIM): 6 Toilet/Commode Transfer(FIM): 6 Additional Goals: 1-Demonstrate ADL Tasks, 2-Verbalize Understanding, 3- ImproveStrength/Rea 1=Demonstrate adherence to instructed precautions during ADL tasks. 2=Patient will verbalize/demonstrate understanding of assistive devices/modifications for ADL. 3=Patient will improve strength/tolerance for activity to enable patient to perform ADL's. OT Education/Plan Problem List/Assessment Assessment: Decreased Activ Tolerance, Decreased Safety Aware, Decreased UE Strength, Impaired Coordination, Impaired Funct Balance, Impaired I ADL's, Impaired Self-Care Skills Discharge Recommendations Plan/Recommendations: Continue POC Treatment Plan/Plan of Care Treatment,Training & Education: Yes Patient would benefit from OT for education, treatment and training to promote independence in ADL's, mobility, safety and/or upper extremity function for ADL's. Plan of Care: ADL Retraining, Functional Mobility, Group Exercise/Act as Ind, UE Funct Exercise/Act Treatment Duration: Apr 15, 2019 Frequency: 5 times per week Estimated Hrs Per Day: .5 hour per day Agreement: Yes Rehab Potential: Fair Time/GCodes Start Time: 12:45 Stop Time: 13:10 Billed Treatment Time EVM, 15 minutes FA 10 minutes, 1 unit FELA AYALA OT Apr 01, 2019 12:52
[2019-04-01] MEDS: GABAPENTIN 600 MG (NEURONTIN) TAB PO SCH ×2 (13:24→20:12)
--- NOTE | 2019-04-01 14:01 | Physical Therapy Evaluation ---
PT Evaluation-General Medical Diagnosis Admission Date Mar 30, 2019 at 15:42 Medical Diagnosis: UTI, AMS Onset Date: Apr 01, 2019 Therapy Diagnosis Therapy Diagnosis: debility Height/Weight Height (Feet): 5 Height (Inches): 4.00 Weight (Pounds): 232 Weight (Ounces): 0.0 Precautions Precautions/Isolations: Fall Prevention, Standard Precautions Weight Bear Status Right Lower Extremity: Right Weight Bearing/Tolerated Left Lower Extremity: Left Weight Bearing/Tolerated Referral Physician: Otilia Reason for Referral: Evaluation/Treatment Medical History Pertinent Medical History: DM, HTN Additional Medical History right TKR in January Current History ER secondary to AMS, confusion, no eating or drinking Reviewed History: Yes Social History Home: Single Level Current Living Status: Significant Other Entry Into Home: Stairs With Railing PT Steps Into Home: 2 Prior/Core FIM Prior Level of Function Therapy Code Descriptions/Definitions Functional [place] Measure: 0=Not Assessed/NA 4=Minimal Assistance 1=Total Assistance 5=Supervision or Setup 2=Maximal Assistance 6=Modified [place] 3=Moderate Assistance 7=Complete [place] Therapy Quality Codes: 6 Independent with activity with or without an assistive device 5 Patient requires set up or clean up by helper. Patient completes activity by themselves 4 Supervision or touching assist (CGA). [place] provide cues , steadying assist 3 The helper provides less than half the effort to complete the activity 2 The helper provides more than half the effort to complete the activity 1 Dependent. The helper does all the effort to complete an activity 7 Patient refused to complete or attempt activity 9 The patient did not perform the activity before the current illness or injury 88 Not attempted due to Medical conditions or safety concerns Functional Abilities and Goals: Independent: Patient completed the activities by him/herself, with or without an assistive device, with no assistance from a helper. Needed Some Help: Patient needed partial assistance from another person to complete activities. Dependent: A helper completed the activities for the patient. Unknown: Not Applicable: Bed Mobility: 7 Transfers (B,C,W/C) (FIM): 7 Gait: 7 Stairs: 7 Indoor Mobility (Ambulation): Independent Stairs: Independent Prior Devices Use: None PT Evaluation-Current Subjective Patient agrees to PT. C/o right vallejo pain 5/10. Pain Numeric Pain Scale: 5-Moderate Pain Location: Right, Soft Tissue Location Body Site: Calf Pain Description: Acute Objective Patient Orientation: Normal For Age Problem Solving: Fair Attachments: Oxygen, IV ROM/Strength ROM Lower Extremities bilateral LE WFL Strength Lower Extremities 4/5 grossly bilateral LE Integumentary/Posture Integumentary refer to nursing notes Bowel Incontinence: No Bladder Incontinence: No Posture WFL Neuromuscular (Tone, Coordination, Reflexes) grossly intact Sensory Vision: Functional Hearing: Functional Hand Dominance: Right Sensation Right Lower Extremit: Intact Sensation Left Lower Extremity: Intact Transfers Therapy Code Descriptions/Definitions Functional [place] Measure: 0=Not Assessed/NA 4=Minimal Assistance 1=Total Assistance 5=Supervision or Setup 2=Maximal Assistance 6=Modified [place] 3=Moderate Assistance 7=Complete [place] Transfers (B, C, W/C) (FIM): 6 Scootin Rollin Supine to/from Sit: 6 Sit to/from Stand: 6 Gait Mode of Locomotion: Walk Anticipated Mode of Locomotion: Walk Gait (FIM): 6 Distance (FIM): 3=150 ft Distance: 450' Gait Level of Assist: 6 Gait Assistive Device: FWW Comments/Gait Description steady, safe and functional with FWW Balance Sitting Static: Normal Sitting Dynamic: Normal Standing Static: Normal Standing Dynamic: Normal Assessment/Needs 68 y.o. female, will be seen short term by skilled PT to address functional mobility to ensure safe return to home with spouse at maximum LOF. Rehab Potential: Fair PT Short Term Goals Short Term Goals Transfers (B,C,W/C) (FIM): 5 PT Snf Goals Coil Rewind Machine Operator Goals PT Coil Rewind Machine Operator Goals Time Frame: Apr 10, 2019 Transfers (B,C,W/C) (FIM): 7 Gait (FIM): 6 Gait distance (FIM): 3=150 ft Distance: 500' Gait Level of Assist: 6 Gait Assistive Device: FWW PT Plan Treatment/Plan Treatment Plan: Continue Plan of Care Treatment Plan: Education, Functional Activity Rea, Functional Strength, Gait, Safety, Therapeutic Exercise, Transfers Treatment Duration: Apr 10, 2019 Frequency: 6 times per week Estimated Hrs Per Day: .25 hour per day Patient and/or Family Agrees t: Yes Discharge Recommendations Therapy D/C Recommendations: Home w/ Family Support Time/GCodes Time In: 1255 Time Out: 1324 Total Billed Treatment Time: 29 Total Billed Treatment 1 visit EVModC 20 min FA 9 min BENJAMIN BARNARD PT Apr 01, 2019 14:01
[2019-04-01 16:45] VITALS: BP 147/67
--- NOTE | 2019-04-01 18:44 | NUR ---
PT VOICED SHE WAS WHEEZING -- RT CALLED AND REQUESTED HER TO BE SEEN (SHE WS ON FLOOR)-- RT VOICED THEY WERE GOING tTO ER AND WOULD BE BACK TO FLOOR LATER
[2019-04-01] MEDS: traZODone 50 MG (DESYREL) TAB PO SCH (20:11)
[2019-04-01] MEDS: SIMvastatin 40 MG (ZOCOR) TAB PO SCH (20:11)
[2019-04-01] MEDS: POLYETHYLENE GLYCOL 17 GM (MIRALAX) PACK PO SCH (21:00)
[2019-04-01] MEDS: SENNA W/DOCUSATE (SENOKOT S) TABLET PO SCH (21:41)
[2019-04-02 04:00] VITALS: BP 134/62
[2019-04-02] MEDS: MEROPENEM 500 MG/SWFI 10 ML IV PUSH IV SCH ×8 (04:31→20:48)
[2019-04-02] MEDS: inSUlin ASPART (NovoLOG) 1 UNIT/0.01 ML (CHARGE PER UNIT) SC SCH ×4 (05:31→20:48)
[2019-04-02] MEDS: UMECLIDINIUM BROMIDE (INCRUSE ELLIPTA) 7'S IH SCH (07:09)
[2019-04-02 08:00] VITALS: BP 132/64
[2019-04-02] MEDS: GABAPENTIN 600 MG (NEURONTIN) TAB PO SCH ×3 (08:52→20:45)
[2019-04-02] MEDS: PRAMIPEXOLE 0.5 MG TAB (MIRAPEX) PO SCH ×3 (08:52→20:46)
[2019-04-02] MEDS: SENNA W/DOCUSATE (SENOKOT S) TABLET PO SCH ×2 (08:54→20:45)
[2019-04-02] MEDS: OXYBUTYNIN (DITROPAN) 5 MG TAB PO SCH ×2 (08:55→20:45)
[2019-04-02] MEDS: POLYETHYLENE GLYCOL 17 GM (MIRALAX) PACK PO SCH ×2 (08:55→20:47)
--- NOTE | 2019-04-02 10:42 | Progress Note - Hospitalist ---
Subjective HPI/CC On Admission Date Seen by Provider: Apr 02, 2019 Time Seen by Provider: 09:00 altered mental status Subjective/Events-last exam She continues to have ankle pain. She denies confusion. She denies fevers and chills. She denies nausea and vomiting. She denies chest pain, dyspnea, a bdominal pain. She has not had a bowel movement. She is eating and drinking. Focused Exam Lactate Level 03/30/19 12:14: Lactic Acid Level 1.47 Objective Exam Vital Signs Vital Signs Date Time Temp Pulse Resp B/P (MAP) Pulse Ox O2 Delivery O2 Flow Rate FiO2 04/02/19 07:11 94 Nasal Cannula 2.00 04/02/19 04:00 98.3 65 20 134/62 (86) Capillary Refill : Less Than 3 SecondsLess Than 3 Seconds General Appearance: No Apparent Distress, WD/WN, Obese HEENT: PERRL/EOMI, Pharynx Normal Neck: Non Tender, Supple Respiratory: Chest Non Tender, Lungs Clear, Normal Breath Sounds, No R espiratory Distress, Other (port in place) Cardiovascular: Regular Rate, Rhythm, No Edema, No Murmur Gastrointestinal: Normal Bowel Sounds, Non Tender, Soft Extremity: Normal Inspection; No Non Tender; No Calf Tenderness Neurologic/Psychiatric: Alert; No Disoriented Skin: Normal Color, Warm/Dry Lymphatic: No Adenopathy Results/Procedures Lab Patient resulted labs reviewed. Assessment/Plan Assessment and Plan Assess & Plan/Chief Complaint Micki Kelley is a 68yoF with PMH HTN, T2DM, HLD who presented with altered mental status and was found to have sepsis due to pyelonephritis. #Severe sepsis due to pyelonephritis #ESBL E coli bacteremia -Continue Meropenem, will need at least 7 days of IV antibiotic therapy -Discontinue IV fluids, tolerating oral intake -Plan to repeat blood cultures after 72 hours of appropriate antibiotics to document clearance due to presence of port #History of total knee replacement -Continue to monitor #Type 2 diabetes mellitus -Add Levemir 6 units daily with sliding scale Diagnosis/Problems Diagnosis/Problems (1) Severe sepsis with acute organ dysfunction due to gram-negative bacteria Status: Acute (2) Sepsis due to urinary tract infection Status: Acute (3) Pyelonephritis Status: Acute (4) Gram-negative bacteremia Status: Acute (5) Septic encephalopathy Status: Resolved Resolution Date/Time: 04/02/19 @ 10:43 (6) Acute kidney injury Status: Resolved Resolution Date/Time: 04/02/19 @ 10:43 (7) History of knee replacement Status: Chronic (8) ESBL (extended spectrum beta-lactamase) producing bacteria infection (9) Type 2 diabetes mellitus Status: Chronic Qualifiers: Diabetes mellitus snf insulin use: without snf use Diabetes mellitus complication status: with hyperglycemia Qualified Codes: E11.65 - Type 2 diabetes mellitus with hyperglycemia Clinical Quality Measures DVT/VTE Risk/Contraindication: Risk Factor Score Per Nursin RFS Level Per Nursing on Admit: 4+=Very High DANICA HERRING MD Apr 02, 2019 10:42
--- NOTE | 2019-04-02 10:43 | NUR ---
provided prayer and Communion.
--- NOTE | 2019-04-02 10:50 | Occupational Ther Daily Note ---
OT Current Status-Daily Note Subjective pt laying in bed upon OT arrival. pt agreed to OT TX session with focus on increasing independence with ADLS and functional transfers. Mental Status/Objective Patient Orientation: Normal For Age Therapy Code Descriptions/Definitions Functional [place] Measure: 0=Not Assessed/NA 4=Minimal Assistance 1=Total Assistance 5=Supervision or Setup 2=Maximal Assistance 6=Modified [place] 3=Moderate Assistance 7=Complete [place] Attachments: IV, Oxygen ADL-Treatment Eating (FIM): 7 Grooming (FIM): 6 Bathing (FIM): 6 (standing at sink ) Transfers (B, C, W/C) (FIM): 6 (use of RW) Toilet/Commode Transfer (FIM): 5 (use of RW and GB. pt educaiton on proper placement of RW ) Other Treatment noted decrease activity tolerance during ADLS and SOB. pt O2 remained above 92%. pt education on pursed lip breathing and incorporating energy conservation techniques within ADLs. pt verbalized understanding. Education OT Patient Education: Energy conservation, Modified ADL techniques, Progress toward Goal/Update tx plan, Purpose of tx/functional activities, Safety issues, Transfer techniques Teaching Recipient: Patient Teaching Methods: Demonstration, Discussion Response to Teaching: Verbalize Understanding, Return Demonstration OT Short Term Goals Short Term Goals Time Frame: Apr 08, 2019 Grooming(FIM): 6 Bathing(FIM): 5 Lower Body Dressing(FIM): 5 Toileting(FIM): 5 Transfers (B,C,W/C) (FIM): 5 Toilet/Commode Transfer(FIM): 5 Additional Short Term Goals: 1-Demonstrate ADL Tasks, 2-Verbalize Understanding, 3-ImproveStrength/Rea 1=Demonstrate adherence to instructed precautions during ADL tasks. 2=Patient will verbalize/demonstrate understanding of assistive devices/modifications for ADL. 3=Patient will improve strength/tolerance for activity to enable patient to perform ADL's. OT Manager Configuration Goals Intermediate Goals Time Frame: Apr 15, 2019 Grooming(FIM): 6 Bathing(FIM): 6 Bathing Location: L Arm, R Arm, L Upper Leg, R Upper Leg, L Lower Leg (including foot), R Lower Leg (including foot), Chest, Abdomen, Buttocks, Perineal Area Lower Body Dressing(FIM): 6 Toileting(FIM): 6 Transfers (B,C,W/C) (FIM): 6 Toilet/Commode Transfer(FIM): 6 Additional Goals: 1-Demonstrate ADL Tasks, 2-Verbalize Understanding, 3- ImproveStrength/Rea 1=Demonstrate adherence to instructed precautions during ADL tasks. 2=Patient will verbalize/demonstrate understanding of assistive devices/modifications for ADL. 3=Patient will improve strength/tolerance for activity to enable patient to perform ADL's. OT Education/Plan Problem List/Assessment Assessment: Decreased Activ Tolerance, Decreased Safety Aware, Impaired I ADL's, Impaired Self-Care Skills Discharge Recommendations Plan/Recommendations: Continue POC Therapy D/C Recommendations: Home w/ Family Support Treatment Plan/Plan of Care Treatment,Training & Education: Yes Patient would benefit from OT for education, treatment and training to promote independence in ADL's, mobility, safety and/or upper extremity function for ADL's. Plan of Care: ADL Retraining, Functional Mobility, Group Exercise/Act as Ind, UE Funct Exercise/Act Treatment Duration: Apr 15, 2019 Frequency: 5 times per week Estimated Hrs Per Day: .5 hour per day Agreement: Yes Rehab Potential: Fair Time/GCodes Start Time: 08:05 Stop Time: 08:30 Billed Treatment Time ADL 25 minutes, 2 units FELA AYALA OT Apr 02, 2019 10:50
--- NOTE | 2019-04-02 11:04 | NUR ---
This RN was asked to call and cancel a follow-up appointment that the patient has with her orthopedic surgeon for FridayApr 06. I have called and rescheduled for FridayApril 16 at 9:30.
--- NOTE | 2019-04-02 11:24 | Physical Therapy Daily Note ---
PT Daily Note-Current Subjective Patient agrees to PT. Spouse present. Pain Numeric Pain Scale: 5-Moderate Pain Location: Right Location Body Site: Ankle Pain Description: Ache Mental Status Patient Orientation: Normal For Age Attachments: Oxygen, IV Transfers Therapy Code Descriptions/Definitions Functional [place] Measure: 0=Not Assessed/NA 4=Minimal Assistance 1=Total Assistance 5=Supervision or Setup 2=Maximal Assistance 6=Modified [place] 3=Moderate Assistance 7=Complete [place] Therapy Quality Codes: 6 Independent with activity with or without an assistive device 5 Patient requires set up or clean up by helper. Patient completes activity by themselves 4 Supervision or touching assist (CGA). [place] provide cues , steadying assist 3 The helper provides less than half the effort to complete the activity 2 The helper provides more than half the effort to complete the activity 1 Dependent. The helper does all the effort to complete an activity 7 Patient refused to complete or attempt activity 9 The patient did not perform the activity before the current illness or injury 88 Not attempted due to Medical conditions or safety concerns Transfers (B, C, W/C) (FIM): 6 Scootin Rollin Supine to/from Sit: 6 Sit to/from Stand: 6 Weight Bearing Right Lower Extremity: Right Weight Bearing/Tolerated Left Lower Extremity: Left Weight Bearing/Tolerated Gait Training Gait (FIM): 6 Distance (FIM): 3=150 ft Distance: 350' Gait Level of Assist: 6 Gait Assistive Device: FWW slow, steady gait sequence Assessment Reviewed HEP from TKR with patient independent with exercises. Patient returned to bed with polar pack in place. PT Short Term Goals Short Term Goals Transfers (B,C,W/C) (FIM): 5 PT Senior Care Goals Cold Storage Supervisor Goals PT Cold Storage Supervisor Goals Time Frame: Apr 10, 2019 Transfers (B,C,W/C) (FIM): 7 Gait (FIM): 6 Gait distance (FIM): 3=150 ft Distance: 500' Gait Level of Assist: 6 Gait Assistive Device: FWW PT Plan Treatment/Plan Treatment Plan: Continue Plan of Care Treatment Plan: Education, Functional Activity Rea, Functional Strength, Gait, Safety, Therapeutic Exercise, Transfers Treatment Duration: Apr 10, 2019 Frequency: 6 times per week Estimated Hrs Per Day: .25 hour per day Patient and/or Family Agrees t: Yes Time/GCodes Time In: 1028 Time Out: 1048 Total Billed Treatment Time: 20 Total Billed Treatment 1 visit FA 20 min BENJAMIN BARNARD PT Apr 02, 2019 11:24
[2019-04-02 16:55] VITALS: BP 140/63
[2019-04-02] MEDS: SIMvastatin 40 MG (ZOCOR) TAB PO SCH (20:45)
[2019-04-02] MEDS: traZODone 50 MG (DESYREL) TAB PO SCH (20:46)
[2019-04-03] VITALS: BP 132/70
[2019-04-03] MEDS: MEROPENEM 500 MG/SWFI 10 ML IV PUSH IV SCH ×8 (03:20→21:08)
[2019-04-03] MEDS: inSUlin ASPART (NovoLOG) 1 UNIT/0.01 ML (CHARGE PER UNIT) SC SCH ×4 (06:34→21:08)
[2019-04-03] MEDS: UMECLIDINIUM BROMIDE (INCRUSE ELLIPTA) 7'S IH SCH (07:26)
[2019-04-03 08:00] VITALS: BP 129/76
[2019-04-03] MEDS: GABAPENTIN 600 MG (NEURONTIN) TAB PO SCH ×3 (08:18→21:09)
[2019-04-03] MEDS: OXYBUTYNIN (DITROPAN) 5 MG TAB PO SCH ×2 (08:18→21:09)
[2019-04-03] MEDS: POLYETHYLENE GLYCOL 17 GM (MIRALAX) PACK PO SCH ×2 (08:18→21:09)
[2019-04-03] MEDS: SENNA W/DOCUSATE (SENOKOT S) TABLET PO SCH ×2 (08:18→21:09)
[2019-04-03] MEDS: PRAMIPEXOLE 0.5 MG TAB (MIRAPEX) PO SCH ×3 (08:18→21:09)
--- NOTE | 2019-04-03 10:06 | Physical Therapy Daily Note ---
PT Daily Note-Current Subjective Pt. agrees to Rx. States she had a TKR on right about 2 months ago and wants to walk and do some of her TKR exercises. Pt. refuses to wear O2 for gait. Requests thigh high KOLBY for right leg. Pain Location: No Pain Reported Mental Status Patient Orientation: Person, Place, Time, Situation O2 sats >90% on room air, pt. never stopped talking during gait 350-400 ft , O2 back on in room at 2L Transfers Therapy Code Descriptions/Definitions Functional [place] Measure: 0=Not Assessed/NA 4=Minimal Assistance 1=Total Assistance 5=Supervision or Setup 2=Maximal Assistance 6=Modified [place] 3=Moderate Assistance 7=Complete [place] Therapy Quality Codes: 6 Independent with activity with or without an assistive device 5 Patient requires set up or clean up by helper. Patient completes activity by themselves 4 Supervision or touching assist (CGA). [place] provide cues , steadying assist 3 The helper provides less than half the effort to complete the activity 2 The helper provides more than half the effort to complete the activity 1 Dependent. The helper does all the effort to complete an activity 7 Patient refused to complete or attempt activity 9 The patient did not perform the activity before the current illness or injury 88 Not attempted due to Medical conditions or safety concerns in out bed and chair SBA to mod I Weight Bearing Right Lower Extremity: Right Weight Bearing/Tolerated Left Lower Extremity: Left Weight Bearing/Tolerated Gait Training Gait Assistive Device: FWW 400ft FWW SBA no LOB, some antalgia noted. Exercises Supine Ex: Ankle pumps, Quad Set, Heel Slides, Short Arc Quads, Scooting, Straight leg raise, Hip abd/add Supine Reps: 15 Seated Therapy Exercises: Sit to stand, Long arc quads, Hip flexion Seated Reps: 8 Assessment Current Status: Good Progress PT Short Term Goals Short Term Goals Transfers (B,C,W/C) (FIM): 5 PT [facility]ci Goals [place] Goals PT [facility]ci Goals Time Frame: Apr 10, 2019 Transfers (B,C,W/C) (FIM): 7 Gait (FIM): 6 Gait distance (FIM): 3=150 ft Distance: 500' Gait Level of Assist: 6 Gait Assistive Device: FWW PT Plan Treatment/Plan Treatment Plan: Continue Plan of Care Treatment Plan: Education, Functional Activity Rea, Functional Strength, Gait, Safety, Therapeutic Exercise, Transfers Treatment Duration: Apr 10, 2019 Frequency: 6 times per week Estimated Hrs Per Day: .25 hour per day Patient and/or Family Agrees t: Yes Safety Risks/Education Patient Education: Gait Training, Transfer Techniques, Correct Positioning, Disease Process, Safety Issues Teaching Recipient: Patient Teaching Methods: Demonstration, Discussion Response to Teaching: Verbalize Understanding, Return Demonstration Time/GCodes Time In: 930 Time Out: 1000 Total Billed Treatment Time: 30 Total Billed Treatment 1,GT15m,EX15m G Codes Necessary: AMANDA Meza SOLUTION CONSULTANT Apr 03, 2019 10:06
--- NOTE | 2019-04-03 11:27 | Progress Note - Hospitalist ---
Subjective HPI/CC On Admission Date Seen by Provider: Apr 03, 2019 Time Seen by Provider: 09:00 altered mental status Subjective/Events-last exam She is not confused this morning. She feels like she is getting better. She had a bowel movement last night. She is eating and drinking well. She has no complaints or concerns at this time. She denies chest pain, dyspnea, abdominal pain, nausea, vomiting. Objective Exam Vital Signs Vital Signs Date Time Temp Pulse Resp B/P (MAP) Pulse Ox O2 Delivery O2 Flow Rate FiO2 04/03/19 08:00 Nasal Cannula 2.00 04/03/19 08:00 97.0 65 18 129/76 (93) 97 Capillary Refill : Less Than 3 SecondsLess Than 3 Seconds General Appearance: No Apparent Distress, WD/WN, Obese HEENT: PERRL/EOMI, Pharynx Normal Neck: Normal Inspection, Supple Respiratory: Lungs Clear, Normal Breath Sounds, No Respiratory Distress; No Crackles, No Wheezing Cardiovascular: Regular Rate, Rhythm, No Edema, No Murmur Gastrointestinal: Normal Bowel Sounds, Non Tender, Soft Extremity: Normal Inspection, Other (right ankle and vallejo tenderness, compression stocking on the right) Neurologic/Psychiatric: Alert, Oriented x3, No Motor/Sensory Deficits Skin: Normal Color, Warm/Dry Results/Procedures Lab Patient resulted labs reviewed. Assessment/Plan Assessment and Plan Assess & Plan/Chief Complaint Micki Kelley is a 68yoF with PMH HTN, T2DM, HLD who presented with altered mental status and was found to have sepsis due to pyelonephritis. #Severe sepsis due to pyelonephritis #ESBL E coli bacteremia -Sepsis resolved -Continue Meropenem, will need at least 7 days of IV antibiotic therapy -Plan to repeat blood cultures after 72 hours of appropriate antibiotics to document clearance due to presence of port #History of total knee replacement -Continue to monitor #Type 2 diabetes mellitus -Increase to Levemir 10 units daily with sliding scale Diagnosis/Problems Diagnosis/Problems (1) Severe sepsis with acute organ dysfunction due to gram-negative bacteria Status: Resolved Resolution Date/Time: 04/03/19 @ 11:26 (2) Sepsis due to urinary tract infection Status: Resolved Resolution Date/Time: 04/03/19 @ 11:26 (3) Pyelonephritis Status: Acute (4) Gram-negative bacteremia Status: Acute (5) Septic encephalopathy Status: Resolved Resolution Date/Time: 04/02/19 @ 10:43 (6) Acute kidney injury Status: Resolved Resolution Date/Time: 04/02/19 @ 10:43 (7) History of knee replacement Status: Chronic (8) ESBL (extended spectrum beta-lactamase) producing bacteria infection Status: Acute (9) Type 2 diabetes mellitus Status: Chronic Qualifiers: Diabetes mellitus vermin exterminator insulin use: without fci use Diabetes mellitus complication status: with hyperglycemia Qualified Codes: E11.65 - Type 2 diabetes mellitus with hyperglycemia Clinical Quality Measures DVT/VTE Risk/Contraindication: Risk Factor Score Per Nursin RFS Level Per Nursing on Admit: 4+=Very High DANICA HERRING MD Apr 03, 2019 11:27
[2019-04-03 16:09] VITALS: BP 123/59
[2019-04-03] MEDS: SIMvastatin 40 MG (ZOCOR) TAB PO SCH (21:09)
[2019-04-03] MEDS: traZODone 50 MG (DESYREL) TAB PO SCH (21:24)
[2019-04-04 00:24] VITALS: BP 142/66
[2019-04-04] MEDS: MEROPENEM 500 MG/SWFI 10 ML IV PUSH IV SCH ×8 (03:42→21:10)
[2019-04-04] MEDS: inSUlin ASPART (NovoLOG) 1 UNIT/0.01 ML (CHARGE PER UNIT) SC SCH ×4 (05:59→21:02)
[2019-04-04 07:20] LABS: BUN/CREATININE RATIO 14; CALCIUM 9.5 MG/DL (8.5-10.1); CARBON DIOXIDE 21 MMOL/L (21-32); CHLORIDE 106 MMOL/L (98-107); CREATININE SERUM 0.83 MG/DL (0.60-1.30); GFR ESTIMATED > 60; GLUCOSE 127 MG/DL (70-105); POTASSIUM 4.2 MMOL/L (3.6-5.0); SODIUM 142 MMOL/L (135-145)
[2019-04-04 08:00] VITALS: BP 128/76
[2019-04-04] MEDS: UMECLIDINIUM BROMIDE (INCRUSE ELLIPTA) 7'S IH SCH (08:02)
[2019-04-04] MEDS: OXYBUTYNIN (DITROPAN) 5 MG TAB PO SCH ×2 (08:21→21:11)
[2019-04-04] MEDS: SENNA W/DOCUSATE (SENOKOT S) TABLET PO SCH ×3 (08:21→23:47)
[2019-04-04] MEDS: GABAPENTIN 600 MG (NEURONTIN) TAB PO SCH ×3 (08:21→21:11)
[2019-04-04] MEDS: PRAMIPEXOLE 0.5 MG TAB (MIRAPEX) PO SCH ×3 (08:21→21:10)
[2019-04-04] MEDS: POLYETHYLENE GLYCOL 17 GM (MIRALAX) PACK PO SCH ×2 (08:22→23:46)
--- NOTE | 2019-04-04 14:55 | Progress Note - Hospitalist ---
Subjective HPI/CC On Admission Date Seen by Provider: Apr 04, 2019 Time Seen by Provider: 11:00 altered mental status Subjective/Events-last exam She denies fevers and chills. She reports that her right leg pain is not controlled with the current pain regimen. She had a bowel movement. She denies chest pain, dyspnea, abdominal pain, nausea, vomiting, dysuria. Objective Exam Vital Signs Vital Signs Date Time Temp Pulse Resp B/P (MAP) Pulse Ox O2 Delivery O2 Flow Rate FiO2 04/04/19 08:02 93 Nasal Cannula 2.00 04/04/19 08:00 96.9 57 18 128/76 (93) Capillary Refill : Less Than 3 SecondsLess Than 3 Seconds General Appearance: No Apparent Distress, WD/WN, Obese HEENT: PERRL/EOMI, Pharynx Normal Neck: Normal Inspection, Supple Respiratory: Lungs Clear, Normal Breath Sounds, No Respiratory Distress Cardiovascular: Regular Rate, Rhythm, No Edema, No Murmur Gastrointestinal: Normal Bowel Sounds, Non Tender, Soft Extremity: Normal Inspection; No Non Tender; No Pedal Edema; No Inflammation, No Swelling Neurologic/Psychiatric: Alert, Oriented x3, No Motor/Sensory Deficits Skin: Normal Color, Warm/Dry Results/Procedures Lab Laboratory Tests 04/04/19 06:51 Patient resulted labs reviewed. Assessment/Plan Assessment and Plan Assess & Plan/Chief Complaint Micki Kelley is a 68yoF with PMH HTN, T2DM, HLD who presented with altered mental status and was found to have sepsis due to pyelonephritis. #Severe sepsis due to pyelonephritis #ESBL E coli bacteremia -Sepsis resolved -Continue Meropenem, will need at least 7 days of IV antibiotic therapy -Repeat blood cultures today #History of total knee replacement -Increase to Oxycodone 10 mg every 4 hours -Continue to monitor #Type 2 diabetes mellitus -Continue Levemir 10 units daily with sliding scale Diagnosis/Problems Diagnosis/Problems (1) Severe sepsis with acute organ dysfunction due to gram-negative bacteria Status: Resolved Resolution Date/Time: 04/03/19 @ 11:26 (2) Sepsis due to urinary tract infection Status: Resolved Resolution Date/Time: 04/03/19 @ 11:26 (3) Pyelonephritis Status: Acute (4) Gram-negative bacteremia Status: Acute (5) Septic encephalopathy Status: Resolved Resolution Date/Time: 04/02/19 @ 10:43 (6) Acute kidney injury Status: Resolved Resolution Date/Time: 04/02/19 @ 10:43 (7) History of knee replacement Status: Chronic (8) ESBL (extended spectrum beta-lactamase) producing bacteria infection Status: Acute (9) Type 2 diabetes mellitus Status: Chronic Qualifiers: Diabetes mellitus buttermaker helper insulin use: without buttermaker helper use Diabetes mellitus complication status: with hyperglycemia Qualified Codes: E11.65 - Type 2 diabetes mellitus with hyperglycemia Clinical Quality Measures DVT/VTE Risk/Contraindication: Risk Factor Score Per Nursin RFS Level Per Nursing on Admit: 4+=Very High DANICA HERRING MD Apr 04, 2019 14:55
[2019-04-04 15:30] VITALS: BP 129/68
[2019-04-04] MEDS: traZODone 50 MG (DESYREL) TAB PO SCH (21:10)
[2019-04-04] MEDS: SIMvastatin 40 MG (ZOCOR) TAB PO SCH (21:11)
[2019-04-05] VITALS: BP 135/63
[2019-04-05] MEDS: MEROPENEM 500 MG/SWFI 10 ML IV PUSH IV SCH ×4 (02:42→08:47)
[2019-04-05 05:31] LABS: BASOPHILS % (AUTO) 0 % (0-10); EOSINOPHILS # (AUTO) 0.2 10^3/uL (0.0-0.3); EOSINOPHILS % (AUTO) 2 % (0-10); HEMATOCRIT 35 % (35-52); HEMOGLOBIN 10.5 G/DL (11.5-16.0); LYMPHOCYTES # (AUTO) 1.5 X 10^3 (1.0-4.0); LYMPHOCYTES % (AUTO) 18 % (12-44); MEAN CORPUSCULAR HEMOGLOBIN 26 PG (25-34); MEAN CORPUSCULAR HGB CONC 30 G/DL (32-36); MEAN CORPUSCULAR VOLUME 86 FL (80-99); MEAN PLATELET VOLUME 10.2 FL (7.4-10.4); MONOCYTES # (AUTO) 0.5 X 10^3 (0.0-1.0); MONOCYTES % (AUTO) 7 % (0-12); NEUTROPHILS # (AUTO) 5.9 X 10^3 (1.8-7.8); NEUTROPHILS % (AUTO) 73 % (42-75); PLATELET COUNT 237 10^3/uL (130-400); RED CELL DISTRIBUTION WIDTH 19.2 % (10.0-14.5); WHITE BLOOD COUNT 8.1 10^3/uL (4.3-11.0)
[2019-04-05 05:53] LABS: BUN/CREATININE RATIO 14; CALCIUM 9.3 MG/DL (8.5-10.1); CARBON DIOXIDE 27 MMOL/L (21-32); CHLORIDE 106 MMOL/L (98-107); CREATININE SERUM 0.78 MG/DL (0.60-1.30); GFR ESTIMATED > 60; GLUCOSE 171 MG/DL (70-105); POTASSIUM 4.6 MMOL/L (3.6-5.0); SODIUM 144 MMOL/L (135-145)
[2019-04-05] MEDS: inSUlin ASPART (NovoLOG) 1 UNIT/0.01 ML (CHARGE PER UNIT) SC SCH (06:10)
[2019-04-05] MEDS: UMECLIDINIUM BROMIDE (INCRUSE ELLIPTA) 7'S IH SCH (07:46)
[2019-04-05 08:00] VITALS: BP 133/60
[2019-04-05] MEDS: PRAMIPEXOLE 0.5 MG TAB (MIRAPEX) PO SCH (08:21)
[2019-04-05] MEDS: GABAPENTIN 600 MG (NEURONTIN) TAB PO SCH (08:22)
[2019-04-05] MEDS: OXYBUTYNIN (DITROPAN) 5 MG TAB PO SCH (08:22)
[2019-04-05] MEDS: SENNA W/DOCUSATE (SENOKOT S) TABLET PO SCH (08:22)
[2019-04-05] MEDS: POLYETHYLENE GLYCOL 17 GM (MIRALAX) PACK PO SCH (08:22)
--- NOTE | 2019-04-05 09:45 | NUR ---
Swing Bed Note: Qualifies for swing bed for continued need for IV abx (Resistant UTI) et continued need for short term therapies to return to prior level of function of independent. Will admit to swing bed today 04/05/19. Thank you for this referral!
[2019-04-05] MEDS ORDERED: COLCHICINE 0.6 MG (COLCRYS) TABLET PO NR ×2 (10:15→13:15)
--- NOTE | 2019-04-05 10:15 | Discharge Summary ---
Diagnosis/Chief Complaint Date of Admission Mar 30, 2019 at 3:42 pm Date of Discharge Admission Diagnosis Sepsis due to pyelonephritis Discharge Diagnosis (1) Severe sepsis with acute organ dysfunction due to gram-negative bacteria Status: Resolved (2) Sepsis due to urinary tract infection Status: Resolved (3) Pyelonephritis Status: Acute (4) Gram-negative bacteremia Status: Acute (5) Septic encephalopathy Status: Resolved (6) Acute kidney injury Status: Resolved (7) History of knee replacement Status: Chronic (8) ESBL (extended spectrum beta-lactamase) producing bacteria infection Status: Acute (9) Type 2 diabetes mellitus Status: Chronic Discharge Summary Discharge Physical Exam Allergies: Coded Allergies: No Known Drug Allergies (Unverified , 02/11/14) Vitals & I&Os Vital Signs Date Time Temp Pulse Resp B/P (MAP) Pulse Ox O2 Delivery O2 Flow Rate FiO2 04/05/19 08:00 96.8 54 20 133/60 (84) 93 High Flow N/C 2.00 General Appearance: No Apparent Distress, Chronically ill Cardiovascular: Regular Rate, Rhythm, No Murmur Hospital Course Patient is a 69-year-old female who was admitted due to UTI and found to have ESBL Escherichia coli bacteremia. She had an uncomplicated course but necessitated long-term IV antibiotics and multiple times a day dosing so she was discharged to swing bed to complete treatment. Of note she does have a port placed and repeat blood cultures were pending at the time of discharge and are to be followed up during her swing bed stay. She adamantly refuses to have her port removed should her repeat blood cultures be positive. We'll defer further conversation about this until results available. Labs (last 24 hrs) Microbiology 04/04/19 Blood Culture - Preliminary, Resulted No growth 03/30/19 Urine Culture - Final, Complete Escherichia coli Patient resulted labs reviewed. Pending Labs Discussion & Recommendations Discharge Planning: >30 minutes discharge planning Discharge Home Medications: Active Scripts Active Reported Dicyclomine HCl 10 Mg Capsule 10 Mg PO QID PRN Pantoprazole Sodium 40 Mg Tablet.dr 40 Mg PO DAILY PRN Probiotic (Lactobacillus Combo No.10) 1 Each Capsule 1 Cap PO DAILY Tylenol Extra Strength (Acetaminophen) 500 Mg Tablet 500-1,000 Mg PO Q4H PRN Imodium A-D (Loperamide HCl) 2 Mg Tablet PO UD PRN Marissa Allergy (Fexofenadine HCl) 180 Mg Tablet 180 Mg PO DAILY PRN Colace (Docusate Sodium) 100 Mg Capsule 100 Mg PO DAILY PRN Ferrous Sulfate 325 Mg Tablet 325 Mg PO DAILY Vitamin C (Ascorbate Calcium) 500 Mg Tablet 500 Mg PO TID Trazodone HCl 50 Mg Tablet 100 Mg PO HS TAKES 2 (50MG) TABLETS Citalopram HBr (Citalopram Hydrobromide) 20 Mg Tablet 20 Mg PO HS Breo Ellipta 100-25 Mcg INH (Fluticasone/Vilanterol) 1 Each Blst.w.dev 1 Puff INH DAILY PRN Hydromorphone HCl 4 Mg Tablet 4 Mg PO Q6H PRN Oxybutynin Chloride ER (Oxybutynin Chloride) 10 Mg Tab.er.24 10 Mg PO HS Lorazepam 2 Mg Tablet 2 Mg PO Q6H PRN Pramipexole Dihydrochloride (Pramipexole Di-HCl) 0.5 Mg Tablet 1 Mg PO TID TAKES 2 (0.5MG) TABLETS Hydrochlorothiazide 25 Mg Tablet 25 Mg PO DAILY Oxycodone HCl 5 Mg Tablet 5-10 Mg PO EVERY 4-6 HOURS PRN Celecoxib 200 Mg Capsule 200 Mg PO BID Diclofenac Sodium 100 Gm Gel..gram. TOP BID PRN Januvia (Sitagliptin Phosphate) 100 Mg Tablet 100 Mg PO DAILY Amoxicillin 500 Mg Tablet 2,000 Mg PO DAILY PRN Gabapentin 600 Mg Tablet 1,200 Mg PO TID TAKES 2 (600MG) TABLETS Miralax (Polyethylene Glycol 3350) 119 Gm Powder 17 Gm PO DAILY Simvastatin 40 Mg Tablet 40 Mg PO HS Instructions to patient/family Please see electronic discharge instructions given to patient. Clinical Quality Measures DVT/VTE Risk/Contraindication: Risk Factor Score Per Nursin RFS Level Per Nursing on Admit: 4+=Very High Problem Qualifiers (1) Type 2 diabetes mellitus: Diabetes mellitus alf insulin use: without medical terminologist use Diabetes mellitus complication status: with hyperglycemia Qualified Codes: E11.65 - Type 2 diabetes mellitus with hyperglycemia HONORIO HAMPTON MD Apr 05, 2019 10:15
--- NOTE | 2019-04-05 10:35 | NUR ---
DISCHARGED TO SWING BED
[2019-04-05] MEDS ORDERED: NYSTATIN ORAL SUSP 5 ML UDC PO SCH (12:00)
--- NOTE | 2019-04-05 15:46 | Diagnostic Imaging Report ---
PROCEDURE: US right lower extremity venous. TECHNIQUE: Multiple real-time grayscale images were obtained over the right lower extremity in various projections. Additional spectral analysis and color Doppler duplex images were also obtained. INDICATION: Pain and swelling to the right lower extremity. FINDINGS: There is no evidence of right lower extremity DVT. Right lower extremity deep venous system shows normal compressibility with normal response to augmentation and Valsalva. No fluid collection or mass is seen. IMPRESSION: No evidence of right lower extremity DVT. Dictated by: Dictated on workstation # [id number]
[2019-04-06] MEDS ORDERED: COLCHICINE 0.6 MG (COLCRYS) TABLET PO SCH (09:00)
== END 2019-04-05 10:38 | disposition swing bed (61) | DRG 871 ==
LOC: EDUNIT# 11:55 → ER 11:56 → UNDOADMIN 15:42 → 4TH 15:42
PROVIDERS: ADMIT Internal Medicine; ATTEND Internal Medicine
DX: A41.51 Sepsis due to Escherichia coli [E. coli] (principal); R65.20 Severe sepsis without septic shock; N12 Tubulo-interstitial nephritis, not specified as acute or chronic; G93.41 Metabolic encephalopathy; N17.9 Acute kidney failure, unspecified; G89.29 Other chronic pain; F11.20 Opioid dependence, uncomplicated; E11.9 Type 2 diabetes mellitus without complications; I10 Essential (primary) hypertension; E78.00 Pure hypercholesterolemia, unspecified; J45.909 Unspecified asthma, uncomplicated; M19.91 Primary osteoarthritis, unspecified site; Z96.651 Presence of right artificial knee joint; Z91.81 History of falling; Z79.4 Long term (current) use of insulin; Z16.12 Extended spectrum beta lactamase (ESBL) resistance
CPT/HCPCS: 36415; 70450; 71045; 71275; 76770; 80048; 80053; 80061; 81000; 82962; 83605; 83690; 83880; 84550; 85007; 85025; 85027; 85379; 85610; 85730; 86141; 87040; 87077; 87088; 87184; 87186; 93005; 93041; 94640; 94664; 94760

== ENCOUNTER 2019-04-05 09:50 | Inpatient (IN) | payer MEDICARE, OTHER ==
[~2019-04-05] VITALS: Ht 162.6 cm; Wt 105.2 kg
[~2019-04-05 09:50] MED LIST changes: +ACET-2267 PO; +ASCO-262 PO; +CELE-63 PO; +CITA20TA9 PO; +DICL100G31 TOP; +DICY10CA12 PO; +DOCU-143 PO; +FERR325T18 PO; +FEXO180T84 PO; +FLUT1AER INH; +LACT1CAP72 PO; +LOPE-134 PO; +LORA2TAB PO; +NSTR15O TOP; +OXYB10TA PO; +OXYC-529 PO; +PRAM0.5T9 PO; +SITA100T12 PO; +TRAZ-222 PO
--- NOTE | 2019-04-05 10:35 | NUR ---
ANA LUJAN admitted to swing bed status to room 417-1, with an admitting diagnosis of SWB UTI AND SEPSIS, on 04/05/19 from acute inpatient status. PT/OT Therapy to evaluate patient for activity needs. ANA LUJAN and/or family introduced to surroundings, call light, bed controls, phone, TV, temperature control, lights, meal times, smoking policy, visitor policy, side rail policy, bathrooms, and showers. Patient rights given to patient in the handbook.. ANA LUJAN and/or family member verbalized understanding that [facility] is not responsible for the loss or damage to any personal effects or valuables that are kept in the patients possession during their hospitalization. The following care plans were discussed with ANA LUJAN: Discharge Plannning,,PAIN CONTROL, and . ANA LUJAN and/or family verbalizes understanding of the Interdisciplinary Patient Education. Patient and/or family were informed about the Rapid Response Team and its purpose. Call light with in reach and patient demonstrates understanding of how to use. ANA LUJAN reports no further needs at this time.
[2019-04-05] MEDS ORDERED: ACETAMINOPHEN 325 MG TABLET PO PRN (11:00)
[2019-04-05] MEDS ORDERED: BISACODYL 10 MG SUPP (DULCOLAX) PR PRN (11:00)
[2019-04-05] MEDS ORDERED: DOCUSATE SODIUM 100 MG (COLACE) CAP PO PRN (11:00)
[2019-04-05] MEDS ORDERED: MEROPENEM 500 MG in WATER (STERILE) FOR INJECTION 10 ML IV SCH (11:00)
--- NOTE | 2019-04-05 11:11 | NUR ---
Pt is [employer]. Car Trimmer provided prayer and Communion.
--- NOTE | 2019-04-05 11:55 | Physical Therapy Evaluation ---
PT Evaluation-General Medical Diagnosis Admission Date Medical Diagnosis: UTI, AMS Onset Date: Apr 01, 2019 Therapy Diagnosis Therapy Diagnosis: impaired mobility, strength, endurance Height/Weight Height (Feet): 5 Height (Inches): 4.00 Weight (Pounds): 232 Weight (Ounces): 0.0 Weight Bear Status Right Lower Extremity: Right Weight Bearing/Tolerated Left Lower Extremity: Left Weight Bearing/Tolerated Referral Physician: Yolis Mckenzie MD Reason for Referral: Evaluation/Treatment Medical History Pertinent Medical History: DM, HTN Additional Medical History right TKR in January Social History Home: Single Level Current Living Status: Significant Other Entry Into Home: Stairs With Railing PT Steps Into Home: 2 Prior/Core FIM Prior Level of Function Therapy Code Descriptions/Definitions Functional [place] Measure: 0=Not Assessed/NA 4=Minimal Assistance 1=Total Assistance 5=Supervision or Setup 2=Maximal Assistance 6=Modified [place] 3=Moderate Assistance 7=Complete [place] Therapy Quality Codes: 6 Independent with activity with or without an assistive device 5 Patient requires set up or clean up by helper. Patient completes activity by themselves 4 Supervision or touching assist (CGA). [place] provide cues , steadying assist 3 The helper provides less than half the effort to complete the activity 2 The helper provides more than half the effort to complete the activity 1 Dependent. The helper does all the effort to complete an activity 7 Patient refused to complete or attempt activity 9 The patient did not perform the activity before the current illness or injury 88 Not attempted due to Medical conditions or safety concerns Functional Abilities and Goals: Independent: Patient completed the activities by him/herself, with or without an assistive device, with no assistance from a helper. Needed Some Help: Patient needed partial assistance from another person to complete activities. Dependent: A helper completed the activities for the patient. Unknown: Not Applicable: Bed Mobility: 7 Transfers (B,C,W/C) (FIM): 7 Gait: 7 Stairs: 7 Indoor Mobility (Ambulation): Independent Stairs: Independent PT Evaluation-Current Subjective Patient in bed pre tx, agrees to PT, has 7/10 pain in anterior and medial lower calf on the right side. She has some swelling and redness. Nurse is aware of this. Pt/Family Goals to be independent at home Objective Patient Orientation: Person, Place, Situation ROM/Strength ROM Lower Extremities WNL except right knee due to recent TKA Strenght Lower Extremities 4/5 gross BLE Sensory Vision: Functional Hearing: Functional Sensation Right Lower Extremit: Intact Sensation Left Lower Extremity: Intact Transfers Therapy Code Descriptions/Definitions Functional [place] Measure: 0=Not Assessed/NA 4=Minimal Assistance 1=Total Assistance 5=Supervision or Setup 2=Maximal Assistance 6=Modified [place] 3=Moderate Assistance 7=Complete [place] Therapy Quality Codes: 6 Independent with activity with or without an assistive device 5 Patient requires set up or clean up by helper. Patient completes activity by themselves 4 Supervision or touching assist (CGA). [place] provide cues , steadying assist 3 The helper provides less than half the effort to complete the activity 2 The helper provides more than half the effort to complete the activity 1 Dependent. The helper does all the effort to complete an activity 7 Patient refused to complete or attempt activity 9 The patient did not perform the activity before the current illness or injury 88 Not attempted due to Medical conditions or safety concerns Transfers (B, C, W/C) (FIM): 6 Scootin Rollin Roll Left to Right (QC): 6 Supine to/from Sit: 6 Sit to/from Stand: 6 Sit to Lying (QC): 6 Lying to Sitting/Side of Bed(Q: 6 Sit to Stand (QC): 6 Chair/Rmo-ut-Txfqs Xfer(QC): 6 Gait Does the Patient Walk?: Yes Mode of Locomotion: Walk Anticipated Mode of Locomotion: Walk Gait (FIM): 6 Walk 10 feet (QC): 6 Walk 50 ft with 2 Turns(QC): 6 Walk 150 ft (QC): 6 Distance: 300' Gait Assistive Device: FWW Comments/Gait Description Mod I with ambulation using a rolling walker, no unsteadiness or LOB, slight limp and decreased stance time on the right leg Balance Sitting Static: Normal Sitting Dynamic: Normal Standing Static: Normal Standing Dynamic: Good Treatment RLE TKA exercises x20 (AP, QS, HS, SAQ, SLR) Assessment/Needs Patient has impaired mobility, strength, endurance. She is mod I with all mobility, steady ambulation, going to the restroom by herself already. Rehab Potential: Fair PT Residential Goals [employer] Account Manager Goals PT Residential Goals Time Frame: Apr 12, 2019 Transfers (B,C,W/C) (FIM): 7 Sit to Lying (QC): 6 Lying-Sitting on Side/Bed(QC): 6 Sit to Stand (QC): 6 Rollin Roll Left to Right (QC): 6 Chair/Dko-ia-Xblzn Xfer(QC): 6 Gait (FIM): 7 Distance: 300' Walk 10 feet (QC): 6 Walk 50ft with 2 Turns (QC): 6 Walk 150 ft (QC): 6 Gait Level of Assist: 7 Gait Assistive Device: None PT Plan Problem List Problem List: Activity Tolerance, Functional Strength, Safety, Balance, Gait, Transfer, ROM Treatment/Plan Treatment Plan: Continue Plan of Care Treatment Plan: Bed Mobility, Education, Functional Activity Rea, Functional Strength, Gait, Safety, Therapeutic Exercise, Transfers Treatment Duration: Apr 12, 2019 Frequency: 6 times per week Estimated Hrs Per Day: .25 hour per day Patient and/or Family Agrees t: Yes Safety Risks/Education Patient Education: Gait Training, Transfer Techniques, Correct Positioning, Safety Issues Teaching Recipient: Patient Teaching Methods: Demonstration, Discussion Response to Teaching: Reinforcement Needed Discharge Recommendations Plan Patient will perform bed mobility and transfer training, balance and endurance training, functional strengthening, gait training, and education, to improve functional mobility and independence at home. Therapy D/C Recommendations: Home w/ Family Support Time/GCodes Time In: 1130 Time Out: 1200 Total Billed Treatment Time: 30 Total Billed Treatment 1 visit DONNA 15' GT 15' JOE SPEARS PT Apr 05, 2019 11:55
[2019-04-05 12:00] VITALS: BP 140/65
--- NOTE | 2019-04-05 13:10 | Occupational Therapy Eval ---
OT Evaluation-General/PLF Medical Diagnosis Admission Date Apr 05, 2019 at 11:40 Medical Diagnosis: UTI, AMS Onset Date: Apr 01, 2019 Therapy Diagnosis Therapy Diagnosis: impaired ADLs and mobility Height/Weight Height (Feet): 5 Height (Inches): 4.00 Weight (Pounds): 232 Weight (Ounces): 0.0 Precautions Precautions/Isolations: Contact Isolation, Fall Prevention Weight Bear Status Weight Bearing Restriction: Weight Bearing/Tolerated Referral Physician: Yolis Mckenzie MD Referral Reason: Activity Tolerance, Self Care, Evaluation/Treatment, Strength ening/ROM Medical History Pertinent Medical History: DM, HTN Additional Medical History right TKR in January Current History pt transferred to SWING bed status Reviewed History: Yes Social History Home: Single Level Current Living Status: Significant Other Entry Into Home: Stairs With Railing Steps Into Home: 2 ADL-Prior Level of Function Therapy Code Descriptions/Definitions Functional [place] Measure: 0=Not Assessed/NA 4=Minimal Assistance 1=Total Assistance 5=Supervision or Setup 2=Maximal Assistance 6=Modified [place] 3=Moderate Assistance 7=Complete [place] Therapy Quality Codes: 6 Independent with activity with or without an assistive device 5 Patient requires set up or clean up by helper. Patient completes activity by themselves 4 Supervision or touching assist (CGA). [place] provide cues , steadying assist 3 The helper provides less than half the effort to complete the activity 2 The helper provides more than half the effort to complete the activity 1 Dependent. The helper does all the effort to complete an activity 7 Patient refused to complete or attempt activity 9 The patient did not perform the activity before the current illness or injury 88 Not attempted due to Medical conditions or safety concerns Functional Abilities and Goals: Independent: Patient completed the activities by him/herself, with or without an assistive device, with no assistance from a helper. Needed Some Help: Patient needed partial assistance from another person to complete activities. Dependent: A helper completed the activities for the patient. Unknown: Not Applicable: Self Care: Independent Functional Cognition: Independent DME/Equipment: Tub/Shower Drive Self: Yes OT Current Status Subjective pt laying in bed upon OT arrival. pt complains of R knee pain 5/10. NSG aware pt agreed to OT session. NSG (Cynthia) stated pt is able to participate in OT session. Appearance noted right LE red, warm, and painful to patient. NSG is already aware. pt stated she is supposed to go for a Doppler/ MRI of leg this PM, Mental Status/Objective Patient Orientation: Person, Place, Time, Situation Attachments: Oxygen (2L NC. pt reports she did not wear O2 at home ) Current Glasses/Contacts: No Hearing Aids: No Dentures/Partials: No Hand Dominance: Right Upper Extremity ROM WFL Upper Extremity Coordination WFL Upper Extremity Sensation WNL Upper Extremity Strength 4-/5 MMT ADL-Treatment Eating (FIM): 7 Eating (QC): 6 Grooming (FIM): 6 (standing at sink) Oral Hygiene (QC): 6 Bathing (FIM): 5 (setup) Bathing Location: L Arm, R Arm, L Upper Leg, R Upper Leg, L Lower Leg (including foot), R Lower Leg (including foot), Chest, Abdomen, Buttocks, Perineal Area Shower/Bathe Self (QC): 4 Upper Body Dressing (FIM): 7 Upper Body Dressing (QC): 6 Lower Body Dressing (FIM): 5 (underpants, pants, crystal socks. pt stood duing task. pt education on energy conservation techniques. ) Lower Body Dressing (QC): 5 On/Off Footwear (QC): 5 Toileting (FIM): 6 (3/3 toileting tasks) Toileting Hygiene (QC): 4 Transfers (B, C, W/C) (FIM): 5 (use of RW requried assist with O2 mangememnt. noted SOB ) Toilet/Commode Transfer (FIM): 5 Toilet Transfer (QC): 5 noted SOB with activity. pt O2 remained above 92% during ADL tasks. pt education on energy conservation techniques during ADL task. pt required cuing to use techniques within task. noted slight impulsivity during ADLs tasks. post ADL pt sitting in recliner chair, call light, phone, and tray within reach, all needs met/ Education OT Patient Education: Energy conservation, Modified ADL techniques, Progress toward Goal/Update tx plan, Purpose of tx/functional activities, Reviewed precautions, Rehab process, Safety issues, Transfer techniques Teaching Recipient: Patient Teaching Methods: Demonstration, Discussion Response to Teaching: Verbalize Understanding, Return Demonstration OT Short Term Goals Short Term Goals Time Frame: Apr 12, 2019 Toileting(FIM): 6 Transfers (B,C,W/C) (FIM): 6 Toilet/Commode Transfer(FIM): 6 1=Demonstrate adherence to instructed precautions during ADL tasks. 2=Patient will verbalize/demonstrate understanding of assistive de vices/modifications for ADL. 3=Patient will improve strength/tolerance for activity to enable patient to perform ADL's. OT Dry Box Operator Goals Residential Goals Time Frame: Apr 19, 2019 Bathing(FIM): 6 Bathing Location: L Arm, R Arm, L Upper Leg, R Upper Leg, L Lower Leg (including foot), R Lower Leg (including foot), Chest, Abdomen, Buttocks, Perineal Area Shower/Bathe Self (QC): 6 Upper Body Dressing (QC): 6 Lower Body Dressing(FIM): 6 Lower Body Dressing (QC): 6 On/Off Footwear (QC): 6 Toileting(FIM): 6 Toileting Hygiene (QC): 6 Transfers (B,C,W/C) (FIM): 6 Toilet/Commode Transfer(FIM): 6 Toilet/Commode Transfer (QC): 6 Additional Goals: 1-Demonstrate ADL Tasks, 2-Verbalize Understanding, 3- ImproveStrength/Rea 1=Demonstrate adherence to instructed precautions during ADL tasks. 2=Patient will verbalize/demonstrate understanding of assistive devices/modifications for ADL. 3=Patient will improve strength/tolerance for activity to enable patient to perform ADL's. OT Education/Plan Problem List/Assessment Assessment: Decreased Activ Tolerance, Impaired I ADL's Discharge Recommendations Plan/Recommendations: Continue POC Therapy D/C Recommendations: Home w/ Family Support Treatment Plan/Plan of Care Treatment,Training & Education: Yes Patient would benefit from OT for education, treatment and training to promote independence in ADL's, mobility, safety and/or upper extremity function for ADL's. Plan of Care: ADL Retraining, Functional Mobility, Group Exercise/Act as Ind, UE Funct Exercise/Act Treatment Duration: Apr 19, 2019 Frequency: 5 times per week Estimated Hrs Per Day: .5 hour per day Agreement: Yes Rehab Potential: Fair Time/GCodes Start Time: 13:00 Stop Time: 13:35 Billed Treatment Time EVM 10 minutes ADL 25 minutes, 2 units FELA AYALA OT Apr 05, 2019 13:10
[2019-04-05] MEDS ORDERED: COLCHICINE 0.6 MG (COLCRYS) TABLET PO NR ×3 (13:15→21:00)
[2019-04-05] MEDS: PRAMIPEXOLE 0.5 MG TAB (MIRAPEX) PO SCH ×2 (14:01→21:16)
[2019-04-05] MEDS: GABAPENTIN 600 MG (NEURONTIN) TAB PO SCH ×2 (14:01→21:17)
[2019-04-05] MEDS: NYSTATIN ORAL SUSP 5 ML UDC PO SCH ×3 (14:02→23:52)
--- NOTE | 2019-04-05 14:18 | NUR ---
Admission Drug Regimen Review: Date: 04/05/19 Time: 1420 Review Completed, No Issues found
[2019-04-05] MEDS: inSUlin ASPART (NovoLOG) 1 UNIT/0.01 ML (CHARGE PER UNIT) SC SCH ×2 (15:12→21:17)
[2019-04-05] MEDS: MEROPENEM 500 MG in WATER (STERILE) FOR INJECTION 10 ML IV SCH ×2 (15:20→21:17)
[2019-04-05 18:04] VITALS: BP 147/65
[2019-04-05] MEDS: SENNA W/DOCUSATE (SENOKOT S) TABLET PO SCH (21:16)
[2019-04-05] MEDS: traZODone 50 MG (DESYREL) TAB PO SCH (21:16)
[2019-04-05] MEDS: SIMvastatin 40 MG (ZOCOR) TAB PO SCH (21:16)
[2019-04-05] MEDS: OXYBUTYNIN (DITROPAN) 5 MG TAB PO SCH (21:16)
[2019-04-05] MEDS: POLYETHYLENE GLYCOL 17 GM (MIRALAX) PACK PO SCH (21:21)
[2019-04-06] MEDS: MEROPENEM 500 MG in WATER (STERILE) FOR INJECTION 10 ML IV SCH ×4 (03:23→21:59)
[2019-04-06] MEDS: ONDANSETRON 4 MG/2 ML (SDV) Z0FRAN IVP PRN ×2 (04:33→20:14)
[2019-04-06 05:15] VITALS: BP 117/72
[2019-04-06] MEDS: inSUlin ASPART (NovoLOG) 1 UNIT/0.01 ML (CHARGE PER UNIT) SC SCH ×4 (05:59→21:06)
[2019-04-06] MEDS: NYSTATIN ORAL SUSP 5 ML UDC PO SCH ×3 (05:59→16:25)
[2019-04-06] MEDS: PRAMIPEXOLE 0.5 MG TAB (MIRAPEX) PO SCH ×3 (07:37→20:27)
[2019-04-06] MEDS: GABAPENTIN 600 MG (NEURONTIN) TAB PO SCH ×3 (07:37→20:06)
[2019-04-06] MEDS: OXYBUTYNIN (DITROPAN) 5 MG TAB PO SCH ×2 (07:38→20:06)
[2019-04-06] MEDS: POLYETHYLENE GLYCOL 17 GM (MIRALAX) PACK PO SCH ×2 (07:43→21:06)
[2019-04-06] MEDS: SENNA W/DOCUSATE (SENOKOT S) TABLET PO SCH ×2 (07:44→21:06)
[2019-04-06] MEDS: COLCHICINE 0.6 MG (COLCRYS) TABLET PO SCH (07:49)
--- NOTE | 2019-04-06 09:30 | Physical Therapy Daily Note ---
PT Daily Note-Current Subjective Patient agrees to PT and reports she is up independently in room without difficulty. Pain Numeric Pain Scale: 5-Moderate Pain Location: Right Location Body Site: Knee Pain Description: Ache Mental Status Patient Orientation: Normal For Age Transfers Therapy Code Descriptions/Definitions Functional [place] Measure: 0=Not Assessed/NA 4=Minimal Assistance 1=Total Assistance 5=Supervision or Setup 2=Maximal Assistance 6=Modified [place] 3=Moderate Assistance 7=Complete [place] Therapy Quality Codes: 6 Independent with activity with or without an assistive device 5 Patient requires set up or clean up by helper. Patient completes activity by themselves 4 Supervision or touching assist (CGA). [place] provide cues , steadying assist 3 The helper provides less than half the effort to complete the activity 2 The helper provides more than half the effort to complete the activity 1 Dependent. The helper does all the effort to complete an activity 7 Patient refused to complete or attempt activity 9 The patient did not perform the activity before the current illness or injury 88 Not attempted due to Medical conditions or safety concerns Transfers (B, C, W/C) (FIM): 7 Scootin Rollin Roll Left to Right (QC): 6 Supine to/from Sit: 7 Sit to/from Stand: 7 Sit to Lying (QC): 6 Sit to Stand (QC): 6 Chair/Izs-mi-Vtjst Xfer(QC): 6 Bed to/from Chair: 7 Weight Bearing Right Lower Extremity: Right Weight Bearing/Tolerated Left Lower Extremity: Left Weight Bearing/Tolerated Gait Training Does the Patient Walk?: Yes Gait (FIM): 6 Distance (FIM): 3=150 ft Distance: 650' Walk 10 feet (QC): 6 Walk 50 ft with 2 Turns(QC): 6 Walk 150 ft (QC): 6 Walking 10ft/uneven surface-QC: 6 Gait Level of Assist: 6 Gait Assistive Device: FWW safe and functional with no deviation Stair Training Stair Training: Handrails/: 2 handrails Stairs (FIM): 2 #of Steps: 6 1 Step (curb) (QC): 6 4 Steps (QC): 6 Stairs: Pattern: Step to Level of Assist: 6 Exercises Supine Ex: Ankle pumps, Quad Set, Heel Slides, Straight leg raise Seated Therapy Exercises: Ankle pumps, Long arc quads Assessment Review HEP with patient performing independently and from memory. Patient has been instructed to ambulate PRN in hallway independently with FWW. Patient is currently on PLOF with all gross motor skills. PT to see patient x 1 more session to ensure LOF. PT Short Term Goals Short Term Goals Transfers (B,C,W/C) (FIM): 6 PT Special Officer Automat Goals Jail Goals PT Special Officer Automat Goals Time Frame: Apr 12, 2019 Transfers (B,C,W/C) (FIM): 7 Sit to Lying (QC): 6 Lying-Sitting on Side/Bed(QC): 6 Sit to Stand (QC): 6 Rollin Roll Left to Right (QC): 6 Chair/Mvs-pf-Pxlqh Xfer(QC): 6 Gait (FIM): 7 Distance: 300' Walk 10 feet (QC): 6 Walk 50ft with 2 Turns (QC): 6 Walk 150 ft (QC): 6 Gait Level of Assist: 7 Gait Assistive Device: None PT Plan Treatment/Plan Treatment Plan: Continue Plan of Care Treatment Plan: Bed Mobility, Education, Functional Activity Rea, Functional Strength, Gait, Safety, Therapeutic Exercise, Transfers Treatment Duration: Apr 12, 2019 Frequency: 6 times per week Estimated Hrs Per Day: .25 hour per day Patient and/or Family Agrees t: Yes Time/GCodes Time In: 845 Time Out: 910 Total Billed Treatment Time: 25 Total Billed Treatment 1 visit FA 15 min EX 8 min BENJAMIN BARNARD PT Apr 06, 2019 09:30
--- NOTE | 2019-04-06 11:23 | Occupational Ther Daily Note ---
OT Current Status-Daily Note Subjective pt laying supine in bed upon OT arrival. pt reports 6/10 pain in right vallejo. Mental Status/Objective Patient Orientation: Normal For Age Therapy Code Descriptions/Definitions Functional [place] Measure: 0=Not Assessed/NA 4=Minimal Assistance 1=Total Assistance 5=Supervision or Setup 2=Maximal Assistance 6=Modified [place] 3=Moderate Assistance 7=Complete [place] Attachments: Oxygen ADL-Treatment Therapy Code Descriptions/Definitions Functional [place] Measure: 0=Not Assessed/NA 4=Minimal Assistance 1=Total Assistance 5=Supervision or Setup 2=Maximal Assistance 6=Modified [place] 3=Moderate Assistance 7=Complete [place] Therapy Quality Codes: 6 Independent with activity with or without an assistive device 5 Patient requires set up or clean up by helper. Patient completes activity by themselves 4 Supervision or touching assist (CGA). [place] provide cues , steadying assist 3 The helper provides less than half the effort to complete the activity 2 The helper provides more than half the effort to complete the activity 1 Dependent. The helper does all the effort to complete an activity 7 Patient refused to complete or attempt activity 9 The patient did not perform the activity before the current illness or injury 88 Not attempted due to Medical conditions or safety concerns Bathing (FIM): 6 (seated on chair ) Bathing Location: L Arm, R Arm, L Upper Leg, R Upper Leg, L Lower Leg (including foot), R Lower Leg (including foot), Chest, Abdomen, Buttocks, Perine al Area Shower/Bathe Self (QC): 6 Upper Body (FIM): 6 (assembler for puller over hand shirt ) Upper Body Dressing (QC): 6 Lower Body Dressing (FIM): 6 (pants, underpants, crystal socks ) Lower Body Dressing (QC): 6 On/Off Footwear (QC): 6 Toileting (FIM): 6 Toileting Hygiene (QC): 6 Transfers (B, C, W/C) (FIM): 6 (use of RW ) Toilet/Commode Transfer (FIM): 6 Toilet Transfer (QC): 6 Shower Transfer(FIM): 6 noted SOB with ADL tasks and decrease activity tolerance requiring cuing for energy conservation techniques. post session pt sitting on EOB, all needs met./ Education OT Patient Education: Energy conservation, Modified ADL techniques, Progress toward Goal/Update tx plan, Purpose of tx/functional activities, Safety issues, Transfer techniques Teaching Recipient: Patient Teaching Methods: Demonstration, Discussion Response to Teaching: Verbalize Understanding, Return Demonstration OT Short Term Goals Short Term Goals Time Frame: Apr 12, 2019 Toileting(FIM): 6 Transfers (B,C,W/C) (FIM): 6 Toilet/Commode Transfer(FIM): 6 1=Demonstrate adherence to instructed precautions during ADL tasks. 2=Patient will verbalize/demonstrate understanding of assistive devices/modifications for ADL. 3=Patient will improve strength/tolerance for activity to enable patient to perform ADL's. OT Halfway Goals Halfway Goals Time Frame: Apr 19, 2019 Bathing(FIM): 6 Bathing Location: L Arm, R Arm, L Upper Leg, R Upper Leg, L Lower Leg (including foot), R Lower Leg (including foot), Chest, Abdomen, Buttocks, Perineal Area Shower/Bathe Self (QC): 6 Upper Body Dressing (QC): 6 Lower Body Dressing(FIM): 6 Lower Body Dressing (QC): 6 On/Off Footwear (QC): 6 Toileting(FIM): 6 Toileting Hygiene (QC): 6 Transfers (B,C,W/C) (FIM): 6 Toilet/Commode Transfer(FIM): 6 Toilet/Commode Transfer (QC): 6 Additional Goals: 1-Demonstrate ADL Tasks, 2-Verbalize Understanding, 3- ImproveStrength/Rea 1=Demonstrate adherence to instructed precautions during ADL tasks. 2=Patient will verbalize/demonstrate understanding of assistive devices/modifi cations for ADL. 3=Patient will improve strength/tolerance for activity to enable patient to perform ADL's. OT Education/Plan Problem List/Assessment Assessment: Decreased Activ Tolerance, Decreased Safety Aware Discharge Recommendations Plan/Recommendations: Continue POC Treatment Plan/Plan of Care Treatment,Training & Education: Yes Patient would benefit from OT for education, treatment and training to promote independence in ADL's, mobility, safety and/or upper extremity function for ADL's. Plan of Care: ADL Retraining, Functional Mobility, Group Exercise/Act as Ind, UE Funct Exercise/Act Treatment Duration: Apr 19, 2019 Frequency: 5 times per week Estimated Hrs Per Day: .5 hour per day Agreement: Yes Rehab Potential: Fair Time/GCodes Start Time: 10:50 Stop Time: 11:30 Billed Treatment Time ADL 40 minutes, 3 units FELA AYALA OT Apr 06, 2019 11:23
--- NOTE | 2019-04-06 14:48 | NUR ---
provided prayer and Communion.
[2019-04-06 17:48] VITALS: BP 119/73
[2019-04-06] MEDS: traZODone 50 MG (DESYREL) TAB PO SCH (20:06)
[2019-04-06] MEDS: SIMvastatin 40 MG (ZOCOR) TAB PO SCH (20:27)
[2019-04-06 23:40] VITALS: BP 143/66
[2019-04-07] MEDS: MEROPENEM 500 MG in WATER (STERILE) FOR INJECTION 10 ML IV SCH ×4 (03:05→21:39)
[2019-04-07 05:28] VITALS: BP 137/60
[2019-04-07] MEDS: NYSTATIN ORAL SUSP 5 ML UDC PO SCH ×5 (05:38→23:34)
[2019-04-07] MEDS: inSUlin ASPART (NovoLOG) 1 UNIT/0.01 ML (CHARGE PER UNIT) SC SCH ×4 (05:39→20:53)
--- NOTE | 2019-04-07 07:01 | NUR ---
PATIENT WAS ON 3 L NC AND DOING GOOD SO RT DECREASED O2 FROM 3 L TO 1 L INCRUSE WAS NOT GIVEN AT THIS TIME - PENDING PER PHARMACY (NOTE SAYS MED NEEDS RELABELED, SO RT SENT IT DOWN)
--- NOTE | 2019-04-07 08:47 | Physical Therapy Daily Note ---
PT Daily Note-Current Subjective Patient in bed pre tx, agrees to PT, has no complaints of pain but states she has some swelling in her legs. Appearance Patient in bed post tx with nurse call, phone, tray, family in the room. Mental Status Patient Orientation: Normal For Age Attachments: Oxygen Transfers Therapy Code Descriptions/Definitions Functional [place] Measure: 0=Not Assessed/NA 4=Minimal Assistance 1=Total Assistance 5=Supervision or Setup 2=Maximal Assistance 6=Modified [place] 3=Moderate Assistance 7=Complete [place] Therapy Quality Codes: 6 Independent with activity with or without an assistive device 5 Patient requires set up or clean up by helper. Patient completes activity by themselves 4 Supervision or touching assist (CGA). [place] provide cues , steadying assist 3 The helper provides less than half the effort to complete the activity 2 The helper provides more than half the effort to complete the activity 1 Dependent. The helper does all the effort to complete an activity 7 Patient refused to complete or attempt activity 9 The patient did not perform the activity before the current illness or injury 88 Not attempted due to Medical conditions or safety concerns Transfers (B, C, W/C) (FIM): 7 Scootin Rollin Roll Left to Right (QC): 6 Supine to/from Sit: 7 Sit to/from Stand: 7 Sit to Lying (QC): 6 Sit to Stand (QC): 6 Chair/Jqv-ky-Rmndr Xfer(QC): 6 Bed to/from Chair: 7 Patient independent with bed mobility and transfers Weight Bearing Right Lower Extremity: Right Weight Bearing/Tolerated Left Lower Extremity: Left Weight Bearing/Tolerated Gait Training Gait (FIM): 6 Distance: 700' Walk 10 feet (QC): 6 Walk 50 ft with 2 Turns(QC): 6 Walk 150 ft (QC): 6 Gait Level of Assist: 6 Gait Assistive Device: FWW Patient mod I with ambulation using a rolling walker, steady ambulation, no LOB, gets some SOB but is aware she needs to take occasional standing rest breaks and purse lip breathe. Treatments bed mobility and transfers, ambulation Assessment Current Status: Good Progress Patient is now independent with bed mobility and transfers, and mod I with ambulation. Patient encouraged to ambulate on her own several times a day. Patient will be discharged from PT services at this time. PT Short Term Goals Short Term Goals Transfers (B,C,W/C) (FIM): 6 PT Care Home Goals Care Home Goals PT Operations Scheduler Goals Time Frame: Apr 12, 2019 Transfers (B,C,W/C) (FIM): 7 Sit to Lying (QC): 6 Lying-Sitting on Side/Bed(QC): 6 Sit to Stand (QC): 6 Rollin Roll Left to Right (QC): 6 Chair/Xat-jm-Tuouc Xfer(QC): 6 Gait (FIM): 7 Distance: 300' Walk 10 feet (QC): 6 Walk 50ft with 2 Turns (QC): 6 Walk 150 ft (QC): 6 Gait Level of Assist: 7 Gait Assistive Device: None PT Plan Problem List Problem List: Activity Tolerance, Functional Strength Treatment/Plan Treatment Plan: Discontinue PT Treatment Plan: Bed Mobility, Education, Functional Activity Rea, Functional Strength, Gait, Safety, Therapeutic Exercise, Transfers Treatment Duration: Apr 12, 2019 Frequency: 6 times per week Estimated Hrs Per Day: .25 hour per day Patient and/or Family Agrees t: Yes Safety Risks/Education Patient Education: Gait Training, Transfer Techniques, Correct Positioning, Safety Issues Teaching Recipient: Patient Teaching Methods: Demonstration, Discussion Response to Teaching: Reinforcement Needed Discharge Recommendations Plan DC Time/GCodes Time In: 0826 Time Out: 0840 Total Billed Treatment Time: 14 Total Billed Treatment 1 visit GT 14' JOE SPEARS PT Apr 07, 2019 08:46
[2019-04-07] MEDS: SENNA W/DOCUSATE (SENOKOT S) TABLET PO SCH ×2 (08:52→20:49)
[2019-04-07] MEDS: OXYBUTYNIN (DITROPAN) 5 MG TAB PO SCH ×2 (08:52→20:49)
[2019-04-07] MEDS: GABAPENTIN 600 MG (NEURONTIN) TAB PO SCH ×3 (08:53→20:48)
[2019-04-07] MEDS: POLYETHYLENE GLYCOL 17 GM (MIRALAX) PACK PO SCH ×2 (08:53→20:49)
[2019-04-07] MEDS: PRAMIPEXOLE 0.5 MG TAB (MIRAPEX) PO SCH ×3 (08:53→20:48)
[2019-04-07] MEDS: COLCHICINE 0.6 MG (COLCRYS) TABLET PO SCH (08:53)
--- NOTE | 2019-04-07 10:39 | NUR ---
Swing Bed Note: Discharge planning for Friday after completion of IV abx. Talked with Micki about her oxygen need currently. According to documentation she is on 3LPM but while in the room I noted that she is only using 1LPM of oxygen at this time. She reports that she doesn't use oxygen at home but does have a CPAP that she uses at noc or when she sleeps. She reports that she gets her medical equipment through [facility] et if she needs oxygen she would use them for her medical equipment needs. She denies any other needs that she can think of et reports that she is ready to get home.
--- NOTE | 2019-04-07 11:20 | Progress Note - Hospitalist ---
Subjective HPI/CC On Admission Date Seen by Provider: Apr 07, 2019 Time Seen by Provider: 11:15 Subjective/Events-last exam Pt reports feeling better but still not well. Requesting MRI of her vallejo. Objective Exam Vital Signs Vital Signs Date Time Temp Pulse Resp B/P (MAP) Pulse Ox O2 Delivery O2 Flow Rate FiO2 04/07/19 09:00 95 Nasal Cannula 2.00 04/07/19 05:28 97.4 50 20 137/60 (85) Capillary Refill : Less Than 3 Seconds General Appearance: No Apparent Distress, Chronically ill, Obese Extremity: No Calf Tenderness, No Pedal Edema Neurologic/Psychiatric: Alert, Oriented x3, Normal Mood/Affect Results/Procedures Lab Patient resulted labs reviewed. Assessment/Plan Assessment and Plan Assess & Plan/Chief Complaint Severe sepsis- now resolved ESBL E coli bacteremia -Continue Meropenem through Friday -Repeat blood cultures negative History of total knee replacement -Continue current pain regimen -Continue to monitor Type 2 diabetes mellitus -Continue Levemir 10 units daily with sliding scale [place] pain - USG negative for DVT - No improvement with colchicine will DC Dispo: Plan to DC Friday after completion of abx. Follow up with Dr Mullen regarding knee replacement and vallejo pain. Clinical Quality Measures DVT/VTE Risk/Contraindication: Risk Factor Score Per Nursin HONORIO HAMPTON MD Apr 07, 2019 11:20
--- NOTE | 2019-04-07 13:30 | Occupational Ther Daily Note ---
OT Current Status-Daily Note Subjective pt reports dressing independently, and does not report any pain. Mental Status/Objective Patient Orientation: Normal For Age Therapy Code Descriptions/Definitions Functional [place] Measure: 0=Not Assessed/NA 4=Minimal Assistance 1=Total Assistance 5=Supervision or Setup 2=Maximal Assistance 6=Modified [place] 3=Moderate Assistance 7=Complete [place] Attachments: Oxygen ADL-Treatment Therapy Code Descriptions/Definitions Functional [place] Measure: 0=Not Assessed/NA 4=Minimal Assistance 1=Total Assistance 5=Supervision or Setup 2=Maximal Assistance 6=Modified [place] 3=Moderate Assistance 7=Complete [place] Therapy Quality Codes: 6 Independent with activity with or without an assistive device 5 Patient requires set up or clean up by helper. Patient completes activity by themselves 4 Supervision or touching assist (CGA). [place] provide cues , steadying assist 3 The helper provides less than half the effort to complete the activity 2 The helper provides more than half the effort to complete the activity 1 Dependent. The helper does all the effort to complete an activity 7 Patient refused to complete or attempt activity 9 The patient did not perform the activity before the current illness or injury 88 Not attempted due to Medical conditions or safety concerns Eating (FIM): 7 Eating (QC): 6 Grooming (FIM): 7 Oral Hygiene (QC): 6 Bathing (FIM): 6 Bathing Location: L Arm, R Arm, L Upper Leg, R Upper Leg, L Lower Leg (including foot), R Lower Leg (including foot), Chest, Abdomen, Buttocks, Perineal Area Shower/Bathe Self (QC): 6 Upper Body (FIM): 7 Upper Body Dressing (QC): 6 Lower Body Dressing (FIM): 6 Lower Body Dressing (QC): 6 On/Off Footwear (QC): 6 Toileting (FIM): 6 Toileting Hygiene (QC): 6 Transfers (B, C, W/C) (FIM): 6 Toilet/Commode Transfer (FIM): 6 Toilet Transfer (QC): 6 Shower Transfer(FIM): 6 pt completed shower yesterday with therapist, pt reports completing dressing/toileting/grooming/bathing independently this date with no safety concerns noted. nursing confirmed. Pt independent in room. Other Treatment pt educated on energy conservation techniques to incorporate in every day tasks and daily activities. Pt educated on UE theraband ex to increase strength and endurance for daily activities. pt demonstrated independently with no concerns. Post OT session, pt laying in bed call light and phone in reach and needs met. Education OT Patient Education: Energy conservation, Exercise program, Progress toward Goal/Update tx plan Teaching Recipient: Patient, Significant Other Teaching Methods: Demonstration, Handout Response to Teaching: Verbalize Understanding, Return Demonstration OT Short Term Goals Short Term Goals Time Frame: Apr 12, 2019 Toileting(FIM): 6 Transfers (B,C,W/C) (FIM): 6 Toilet/Commode Transfer(FIM): 6 1=Demonstrate adherence to instructed precautions during ADL tasks. 2=Patient will verbalize/demonstrate understanding of assistive devices/modifications for ADL. 3=Patient will improve strength/tolerance for activity to enable patient to perform ADL's. OT Retail Wireless Sales Consultant Goals Usp Goals Time Frame: Apr 19, 2019 Bathing(FIM): 6 (goal met) Bathing Location: L Arm, R Arm, L Upper Leg, R Upper Leg, L Lower Leg (including foot), R Lower Leg (including foot), Chest, Abdomen, Buttocks, Perineal Area Shower/Bathe Self (QC): 6 (goal met) Upper Body Dressing (QC): 6 (goal met) Lower Body Dressing(FIM): 6 (goal met) Lower Body Dressing (QC): 6 (goal met) On/Off Footwear (QC): 6 (goal met) Toileting(FIM): 6 (goal met) Toileting Hygiene (QC): 6 (goal met) Transfers (B,C,W/C) (FIM): 6 (goal met) Toilet/Commode Transfer(FIM): 6 (goal met) Toilet/Commode Transfer (QC): 6 (goal met) Additional Goals: 1-Demonstrate ADL Tasks, 2-Verbalize Understanding, 3- ImproveStrength/Rea 1=Demonstrate adherence to instructed precautions during ADL tasks. 2=Patient will verbalize/demonstrate understanding of assistive device s/modifications for ADL. 3=Patient will improve strength/tolerance for activity to enable patient to perform ADL's. OT Education/Plan Problem List/Assessment Assessment: No Skilled OT Needs ID'd pt demonstrates independence with ADLs and functional transfers and has a good understanding of HEP. No safety concerns noted, d/c OT at this time secondary to pt being independent. Pt is safe to return home with family support. Discharge Recommendations Plan/Recommendations: Discharge/Goals Met Therapy D/C Recommendations: Home w/ Family Support Equpiment Recommendations-D/C: None Target Placement home Treatment Plan/Plan of Care Treatment,Training & Education: Yes Patient would benefit from OT for education, treatment and training to promote independence in ADL's, mobility, safety and/or upper extremity function for ADL's. Plan of Care: ADL Retraining, Functional Mobility, Group Exercise/Act as Ind, UE Funct Exercise/Act Treatment Duration: Apr 19, 2019 Frequency: 5 times per week Estimated Hrs Per Day: .5 hour per day Agreement: Yes Rehab Potential: Fair Time/GCodes Start Time: 13:05 Stop Time: 13:20 Billed Treatment Time FA 15 min, 1 unit FELA AYALA OT Apr 07, 2019 13:29
[2019-04-07 18:00] VITALS: BP 111/62
[2019-04-07] MEDS: traZODone 50 MG (DESYREL) TAB PO SCH (20:48)
[2019-04-07] MEDS: SIMvastatin 40 MG (ZOCOR) TAB PO SCH (20:49)
[2019-04-07] MEDS: UMECLIDINIUM BROMIDE (INCRUSE ELLIPTA) 7'S IH SCH ×2 (21:24→21:25)
[2019-04-08] MEDS: MEROPENEM 500 MG in WATER (STERILE) FOR INJECTION 10 ML IV SCH ×4 (02:47→20:48)
[2019-04-08] MEDS: inSUlin ASPART (NovoLOG) 1 UNIT/0.01 ML (CHARGE PER UNIT) SC SCH ×4 (05:28→19:51)
[2019-04-08 05:32] VITALS: BP 129/76
[2019-04-08] MEDS: NYSTATIN ORAL SUSP 5 ML UDC PO SCH ×3 (05:41→18:40)
[2019-04-08] MEDS: UMECLIDINIUM BROMIDE (INCRUSE ELLIPTA) 7'S IH SCH (07:30)
[2019-04-08] MEDS: PRAMIPEXOLE 0.5 MG TAB (MIRAPEX) PO SCH ×3 (08:29→20:48)
[2019-04-08] MEDS: OXYBUTYNIN (DITROPAN) 5 MG TAB PO SCH ×2 (08:30→20:49)
[2019-04-08] MEDS: SENNA W/DOCUSATE (SENOKOT S) TABLET PO SCH ×2 (08:30→20:49)
[2019-04-08] MEDS: GABAPENTIN 600 MG (NEURONTIN) TAB PO SCH ×3 (08:30→20:49)
[2019-04-08] MEDS: POLYETHYLENE GLYCOL 17 GM (MIRALAX) PACK PO SCH ×2 (08:31→20:49)
--- NOTE | 2019-04-08 11:17 | Therapy Team Discharge Summary ---
Therapy Discharge Summary Discharge Recommendations Date of Discharge Therapy D/C Recommendations: Home w/ Family Support Occupational Therapy OT has focused on increasing independence with ADLS, functional transfers, energy conservation, UE strength, and overall safety with functional tasks. pt has made great progress while being seen from OT services. currently pt is independent. MOD I using RW with all ADLs and functional transfers with no safety concerns. pt given HEP and demo independence with that. pt is safe to return home with family support. recommended AE: shower chair, RW. No Skilled OT Needs ID'd PT Citrus Picker Goals Citrus Picker Goals PT Citrus Picker Goals Time Frame: Apr 12, 2019 Transfers (B,C,W/C) (FIM): 7 Sit to Lying (QC): 6 Lying-Sitting on Side/Bed(QC): 6 Sit to Stand (QC): 6 Rollin Chair/Etg-aa-Qjqme Xfer(QC): 6 Gait (FIM): 7 Distance: 300' Walk 50ft with 2 Turns (QC): 6 Walk 150 ft (QC): 6 Gait Level of Assist: 7 Gait Assistive Device: None OT Residential Goals Citrus Picker Goals Time Frame: Apr 19, 2019 Bathing(FIM): 6 (goal met) Bathing Location: L Arm, R Arm, L Upper Leg, R Upper Leg, L Lower Leg (including foot), R Lower Leg (including foot), Chest, Abdomen, Buttocks, Perineal Area Lower Body Dressing(FIM): 6 (goal met) Toileting(FIM): 6 (goal met) Toileting Hygiene (QC): 6 (goal met) Transfers (B,C,W/C) (FIM): 6 (goal met) Toilet/Commode Transfer(FIM): 6 (goal met) Toilet/Commode Transfer (QC): 6 (goal met) Additional Goals: 1-Demonstrate ADL Tasks, 2-Verbalize Understanding, 3-ImproveStrength/Rea 1=Demonstrate adherence to instructed precautions during ADL tasks. 2=Patient will verbalize/demonstrate understanding of assistive devices/modifications for ADL. 3=Patient will improve strength/tolerance for activity to enable patient to perform ADL's. FELA AYALA OT Apr 08, 2019 11:17
--- NOTE | 2019-04-08 11:40 | NUR ---
provided prayer and Communion.
[2019-04-08 18:00] VITALS: BP 133/70
[2019-04-08] MEDS: traZODone 50 MG (DESYREL) TAB PO SCH (20:48)
[2019-04-08] MEDS: SIMvastatin 40 MG (ZOCOR) TAB PO SCH (20:49)
[2019-04-09] MEDS: NYSTATIN ORAL SUSP 5 ML UDC PO SCH ×3 (00:22→11:32)
[2019-04-09] MEDS: MEROPENEM 500 MG in WATER (STERILE) FOR INJECTION 10 ML IV SCH ×2 (02:54→08:47)
[2019-04-09] MEDS: inSUlin ASPART (NovoLOG) 1 UNIT/0.01 ML (CHARGE PER UNIT) SC SCH ×2 (06:24→10:15)
[2019-04-09 06:54] VITALS: BP 129/73
[2019-04-09] MEDS: UMECLIDINIUM BROMIDE (INCRUSE ELLIPTA) 7'S IH SCH (08:19)
[2019-04-09] MEDS: POLYETHYLENE GLYCOL 17 GM (MIRALAX) PACK PO SCH (08:47)
[2019-04-09] MEDS: SENNA W/DOCUSATE (SENOKOT S) TABLET PO SCH (08:47)
[2019-04-09] MEDS: GABAPENTIN 600 MG (NEURONTIN) TAB PO SCH (08:47)
[2019-04-09] MEDS: PRAMIPEXOLE 0.5 MG TAB (MIRAPEX) PO SCH (08:47)
[2019-04-09] MEDS: OXYBUTYNIN (DITROPAN) 5 MG TAB PO SCH (08:47)
[2019-04-09] MEDS ORDERED: OXYC-529 PO (10:46)
--- NOTE | 2019-04-09 10:49 | Discharge Inst-Simple/Standard ---
Discharge Inst-Standard Patient Instructions/Follow Up Plan of Care/Instructions/FU: Please continue to take your medications as written. Please follow up with Dr Cardenas next week and with Dr Mullen as scheduled. Activity as Tolerated: Yes Discharge Diet: ADA Diet Return to The [facility] For: Fever, chills, confusion, shortness of breath, chest pain, worsening knee pain or redness, if you feel you are getting worse. HONORIO HAMPTON MD Apr 09, 2019 10:49
--- NOTE | 2019-04-09 10:52 | Discharge Summary ---
Diagnosis/Chief Complaint Date of Admission Apr 05, 2019 at 11:40 am Date of Discharge Discharge Date: Apr 09, 2019 Primary Care Sebas Mullen DO Discharge Summary Discharge Physical Exam Allergies: Coded Allergies: No Known Drug Allergies (Unverified , 02/11/14) Vitals & I&Os Vital Signs Date Time Temp Pulse Resp B/P (MAP) Pulse Ox O2 Delivery O2 Flow Rate FiO2 04/09/19 12:07 04/09/19 09:00 Nasal Cannula 1.00 04/09/19 08:20 93 04/09/19 06:54 96.9 51 22 General Appearance: No Apparent Distress, Obese Respiratory: Lungs Clear, No Respiratory Distress Cardiovascular: Regular Rate, Rhythm, No Murmur Hospital Course Patient was admitted to swing bed status to continue IV antibiotics She was admitted to acute bed previously and found to have ESBL Escherichia coli bacteremia. She had an uncomplicated swing bed stay. She completed her course of Merrem. She does have a ophelia catheter and due to this blood cultures were repeated to ensure clearance of bacteremia. She remained afebrile and well- appearing. She was discharged home in stable condition to follow up with her primary care doctor next week and to follow-up with her orthopedic surgeon next week as well. Labs (last 24 hrs) Patient resulted labs reviewed. Pending Labs Discussion & Recommendations Discharge Planning: >30 minutes discharge planning Discharge Home Medications: Active Scripts Active Oxycodone HCl 5 Mg Tablet 5-10 Mg PO EVERY 4-6 HOURS PRN Reported Dicyclomine HCl 10 Mg Capsule 10 Mg PO QID PRN Pantoprazole Sodium 40 Mg Tablet.dr 40 Mg PO DAILY PRN Probiotic (Lactobacillus Combo No.10) 1 Each Capsule 1 Cap PO DAILY Tylenol Extra Strength (Acetaminophen) 500 Mg Tablet 500-1,000 Mg PO Q4H PRN Imodium A-D (Loperamide HCl) 2 Mg Tablet PO UD PRN Marissa Allergy (Fexofenadine HCl) 180 Mg Tablet 180 Mg PO DAILY PRN Colace (Docusate Sodium) 100 Mg Capsule 100 Mg PO DAILY PRN Vitamin C (Ascorbate Calcium) 500 Mg Tablet 500 Mg PO TID Trazodone HCl 50 Mg Tablet 100 Mg PO HS TAKES 2 (50MG) TABLETS Citalopram HBr (Citalopram Hydrobromide) 20 Mg Tablet 20 Mg PO HS Breo Ellipta 100-25 Mcg INH (Fluticasone/Vilanterol) 1 Each Blst.w.dev 1 Puff INH DAILY PRN Hydromorphone HCl 4 Mg Tablet 4 Mg PO Q6H PRN Oxybutynin Chloride ER (Oxybutynin Chloride) 10 Mg Tab.er.24 10 Mg PO HS Lorazepam 2 Mg Tablet 2 Mg PO Q6H PRN Pramipexole Dihydrochloride (Pramipexole Di-HCl) 0.5 Mg Tablet 1 Mg PO TID TAKES 2 (0.5MG) TABLETS Hydrochlorothiazide 25 Mg Tablet 25 Mg PO DAILY Celecoxib 200 Mg Capsule 200 Mg PO BID Diclofenac Sodium 100 Gm Gel..gram. TOP BID PRN Januvia (Sitagliptin Phosphate) 100 Mg Tablet 100 Mg PO DAILY Amoxicillin 500 Mg Tablet 2,000 Mg PO DAILY PRN Gabapentin 600 Mg Tablet 1,200 Mg PO TID TAKES 2 (600MG) TABLETS Miralax (Polyethylene Glycol 3350) 119 Gm Powder 17 Gm PO DAILY Simvastatin 40 Mg Tablet 40 Mg PO HS Instructions to patient/family Please see electronic discharge instructions given to patient. Clinical Quality Measures DVT/VTE Risk/Contraindication: Risk Factor Score Per Nursin HONORIO HAMPTON MD Apr 09, 2019 10:52
== END 2019-04-09 12:07 | disposition home or self-care (01) | DRG 690 ==
LOC: 4TH 11:40
PROVIDERS: ADMIT Family Medicine; ATTEND Family Medicine
DX: N39.0 Urinary tract infection, site not specified (principal); Z16.20 Resistance to unspecified antibiotic; B96.20 Unspecified Escherichia coli [E. coli] as the cause of diseases classified elsewhere; I10 Essential (primary) hypertension; E11.9 Type 2 diabetes mellitus without complications; R39.15 Urgency of urination; M19.91 Primary osteoarthritis, unspecified site; M54.9 Dorsalgia, unspecified; E66.9 Obesity, unspecified; E78.00 Pure hypercholesterolemia, unspecified; Z96.651 Presence of right artificial knee joint; Z68.39 Body mass index [BMI] 39.0-39.9, adult; Z79.84 Long term (current) use of oral hypoglycemic drugs
CPT/HCPCS: 82962; 94640; 94760

== ENCOUNTER 2019-04-20 09:16 | Outpatient (RCR) | payer MEDICARE, OTHER | END 2019-04-20 12:06 | disposition home or self-care (01) | PROVIDERS: ATTEND Orthopaedic Surgery | DX: Z47.1 Aftercare following joint replacement surgery (principal); Z96.651 Presence of right artificial knee joint ==

== ENCOUNTER 2019-05-29 18:11 | Inpatient (IN) | payer MEDICARE, OTHER ==
[~2019-05-29] VITALS: Ht 167.7 cm; Wt 101.8 kg
[2019-05-29] MEDS ORDERED: methylPREDNISolone 125 MG (Solu-MEDROL) VIAL IV STA (18:35)
--- NOTE | 2019-05-29 18:44 | ED Respiratory ---
General Chief Complaint: Cough/Cold/Flu Symptoms Stated Complaint: COUGHING Nursing Triage Note: has a cough that started yesterday, states it is a productive cough Source: patient, old records History of Present Illness Date Seen by Provider: May 29, 2019 Time Seen by Provider: 18:25 Initial Comments PT ARRIVES VIA POV FROM HOME C/O PRODUCTIVE COUGH WITH COLORED SPUTUM SINCE YESTERDAY HAS HAD FEVER OF 101--HAS NOT TAKEN ANYTHING FOR FEVER C/O CHEST TIGHTNESS C/O BEING VERY SHORT OF BREATH AND WHEEZING. STATES SHE WAS RECENTLY DX WITH ASTHMA, AND HAS USED ALBUTEROL INHALER X 3 TODAY , BUT HAS HISTORY OF CHRONIC BRONCHITIS PT HAS NOT HAD FLU SHOT THIS YEAR PT HAD KNEE REPLACEMENT IN JANUARY BY DR. MAGDALENO AT [facility] PT HAD UTI WITH SEPSIS IN MARCH AND WAS HOSPITALIZED FOR 11 DAYS. DENIES ANY URINARY SYMPTOMS PCP: DR. HAIR Allergies and Home Medications Allergies Coded Allergies: No Known Drug Allergies (Unverified , 02/11/14) Home Medications Acetaminophen 500 Mg Tablet, 500-1,000 MG PO Q4H PRN for PAIN-MILD, (Reported) Amoxicillin 500 Mg Tablet, 2,000 MG PO DAILY PRN for 1 HOUR PRIOR TO DENTAL APPT., (Reported) Ascorbate Calcium 500 Mg Tablet, 500 MG PO TID, (Reported) Celecoxib 200 Mg Capsule, 200 MG PO BID, (Reported) Citalopram Hydrobromide 20 Mg Tablet, 20 MG PO HS, (Reported) Diclofenac Sodium 100 Gm Gel..gram., TOP BID PRN for LEG PAIN, (Reported) Dicyclomine HCl 10 Mg Capsule, 10 MG PO QID PRN for STOMACH UPSET, (Reported) Docusate Sodium 100 Mg Capsule, 100 MG PO DAILY PRN for CONSTIPATION-1ST LINE, (Reported) Ferrous Sulfate 325 Mg Tablet, 325 MG PO DAILY, (Reported) Fexofenadine HCl 180 Mg Tablet, 180 MG PO DAILY PRN for ALLERGIES, (Reported) Fluticasone/Vilanterol 1 Each Blst.w.dev, 1 PUFF INH DAILY PRN for SHORTNESS OF BREATH, (Reported) Gabapentin 600 Mg Tablet, 1,200 MG PO TID, (Reported) TAKES 2 (600MG) TABLETS Hydrochlorothiazide 25 Mg Tablet, 25 MG PO DAILY, (Reported) Hydromorphone HCl 4 Mg Tablet, 4 MG PO Q6H PRN for BREAKTHROUGH PAIN, (Reported) Lactobacillus Combo No.10 1 Each Capsule, 1 CAP PO DAILY, (Reported) Loperamide HCl 2 Mg Tablet, PO UD PRN for DIARRHEA, (Reported) Lorazepam 2 Mg Tablet, 2 MG PO Q6H PRN for ANXIETY, (Reported) Oxybutynin Chloride 10 Mg Tab.er.24, 10 MG PO HS, (Reported) Oxycodone HCl 5 Mg Tablet, 5-10 MG PO EVERY 4-6 HOURS PRN for PAIN-SEVERE Prescribed by: HONORIO HAMPTON on 04/09/19 1046 Pantoprazole Sodium 40 Mg Tablet.dr, 40 MG PO DAILY PRN for HEARTBURN, (Reported) Polyethylene Glycol 3350 119 Gm Powder, 17 GM PO DAILY, (Reported) Pramipexole Di-HCl 0.5 Mg Tablet, 1 MG PO TID, (Reported) TAKES 2 (0.5MG) TABLETS Simvastatin 40 Mg Tablet, 40 MG PO HS, (Reported) Sitagliptin Phosphate 100 Mg Tablet, 100 MG PO DAILY, (Reported) Trazodone HCl 50 Mg Tablet, 100 MG PO HS, (Reported) TAKES 2 (50MG) TABLETS Patient Home Medication List Home Medication List Reviewed: Yes Review of Systems Review of Systems Constitutional: see HPI, fever, malaise, weakness EENTM: no symptoms reported Respiratory: see HPI, cough, short of breath, wheezing Cardiovascular: see HPI, chest pain; No edema, No palpitations, No syncope, No vascular heart diseas Gastrointestinal: no symptoms reported Genitourinary: no symptoms reported Musculoskeletal: no symptoms reported Skin: no symptoms reported Psychiatric/Neurological: No Symptoms Reported Hematologic/Lymphatic: No Symptoms Reported Immunological/Allergic: no symptoms reported Past Qqujymf-Ajcdvb-Uatfqp Hx Past Med/Social Hx: Reviewed and Corrections made Patient Social History Alcohol Use: Occasionally Uses Recreational Drug Use: No Smoking Status: Never a Smoker 2nd Hand Smoke Exposure: No Recent Foreign Travel: No Contact w/Someone Who Travel: No Recent Infectious Disease Expo: No Recent Hopitalizations: Yes (01/2019--RIGHT KNEE REPLACEMENT; ADMIT 03/30- 04/09/19 FOR UTI WITH SEPSIS. ) Physical Abuse: No Sexual Abuse: No Mistreated: No Fear: No Immunizations Up To Date Tetanus Booster (TDap): More than 5yrs Date of Pneumonia Vaccine: Oct 04, 2011 Date of Influenza Vaccine: Jul 06, 2013 Seasonal Allergies Seasonal Allergies: No Past Medical History Surgeries: Yes (RIGHT KNEE REPLACEMENT 01/27/[address] [facility] [address] MAGDALENO. 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 CHRONIC ABDOMINAL PAIN) Chronic Constipation, Chronic Diarrhea Musculoskeletal: Yes (CHRONIC GENERALIZED PAIN--NARCOTIC DEPENDENT/HX OF EXCESSIVE USE-POLYPHARMACY--TAKES DILAUDID, OXYCODONE, HYDROCODONE; RIGHT TOTAL KNEE REPLACEMENT 01/27/[address] [facility] [address] MAGDALENO; RESTLESS LEG SYNDROME) Arthritis, Chronic Back Pain Endocrine: Yes (BENIGN MASS LEFT THYROID REMOVED 01/01/2013) Diabetes, Non-Insulin dep HEENT: Yes Cataract Loss of Vision: Denies Hearing Impairment: Denies Cancer: No Psychosocial: Yes Anxiety, Depression Integumentary: No Blood Disorders: No Adverse Reaction/Blood Tranf: No Family Medical History Cancer 03 FATHER (PANCREATIC, PASSED AT 65 FROM THIS) Cataract 03 MOTHER Dementia 03 MOTHER Family history: Arthritis 03 MOTHER Family history: Cardiovascular disease 03 MOTHER (HIGH CHOLESTEROL, BALOON ARTERIES 2 TIMES) Hearing loss 03 MOTHER Hypercholesterolemia 03 MOTHER Cancer Physical Exam Vital Signs - First Documented 05/29/19 05/29/19 18:23 19:46 Temp 38.0 Pulse 90 Resp 20 B/P (MAP) 131/72 (91) Pulse Ox 93 O2 Delivery Room Air Capillary Refill : Less Than 3 Seconds Height: 5'4.00" Weight: 232lbs. 0.0oz. 105.327039ep; 36.00 BMI Method:Stated General Appearance: obese, other (MIDLY DYSPNEIC, BUT CAN TALK IN SHORT SENTENCES. AUDIBLE WHEEZING FROM DOORWAY. 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, no motor/sensory deficits, alert, normal mood/affect, oriented x 3 Skin: normal color, warm/dry Focused Exam Lactate Level 05/29/19 18:50: Lactic Acid Level 1.84 Lactic Acid Level Laboratory Tests Test 05/29/19 18:50 Lactic Acid Level 1.84 MMOL/L (0.50-2.00) Progress/Results/Core Measures Suspected Sepsis Recent Fever Within 48 Hours: Yes Infection Criteria Present: Suspected New Infection New/Unexplained Altered Menta: No Sepsis Screen: No Definite Risk SIRS Temperature: Pulse: 90 Respiratory Rate: 20 Laboratory Tests 05/29/19 18:50: White Blood Count 15.2H Blood Pressure 131 /72 Mean: 91 05/29/19 18:50: Lactic Acid Level 1.84 Laboratory Tests 05/29/19 18:50: Creatinine 0.93, INR Comment 1.0, Platelet Count 231, Total Bilirubin 1.2H Results/Orders Lab Results Laboratory Tests Test 05/29/19 18:50 05/29/19 20:43 Range/Units White Blood Count 15.2 H 4.3-11.0 10^3/uL Red Blood Count 4.57 4.35-5.85 10^6/uL Hemoglobin 12.3 11.5-16.0 G/DL Hematocrit 38 35-52 % Mean Corpuscular Volume 83 80-99 FL Mean Corpuscular Hemoglobin 27 25-34 PG Mean Corpuscular Hemoglobin Concent 33 32-36 G/DL Red Cell Distribution Width 16.0 H 10.0-14.5 % Platelet Count 231 130-400 10^3/uL Mean Platelet Volume 9.7 7.4-10.4 FL Neutrophils (%) (Auto) 85 H 42-75 % Lymphocytes (%) (Auto) 10 L 12-44 % Monocytes (%) (Auto) 4 0-12 % Eosinophils (%) (Auto) 1 0-10 % Basophils (%) (Auto) 0 0-10 % Neutrophils # (Auto) 12.9 H 1.8-7.8 X 10^3 Lymphocytes # (Auto) 1.6 1.0-4.0 X 10^3 Monocytes # (Auto) 0.5 0.0-1.0 X 10^3 Eosinophils # (Auto) 0.2 0.0-0.3 10^3/uL Basophils # (Auto) 0.0 0.0-0.1 10^3/uL Neutrophils % (Manual) 81 % Lymphocytes % (Manual) 8 % Monocytes % (Manual) 2 % Eosinophils % (Manual) 0 % Basophils % (Manual) 0 % Metamyelocytes % 0 % Band Neutrophils 7 % Reactive Lymphocytes 2 % Toxic Granulation 1+ Polychromasia SLIGHT Anisocytosis SLIGHT Macrocytosis SLIGHT Prothrombin Time 13.8 12.2-14.7 SEC INR Comment 1.0 0.8-1.4 Activated Partial Thromboplast Time 31 24-35 SEC Sodium Level 137 135-145 MMOL/L Potassium Level 4.3 3.6-5.0 MMOL/L Chloride Level 101 98-107 MMOL/L Carbon Dioxide Level 22 21-32 MMOL/L Anion Gap 14 5-14 MMOL/L Blood Urea Nitrogen 18 7-18 MG/DL Creatinine 0.93 0.60-1.30 MG/DL Estimat Glomerular Filtration Rate 60 BUN/Creatinine Ratio 19 Glucose Level 258 H 70-105 MG/DL Lactic Acid Level 1.84 0.50-2.00 MMOL/L Calcium Level 9.5 8.5-10.1 MG/DL Corrected Calcium 9.8 8.5-10.1 MG/DL Magnesium Level 1.7 1.6-2.4 MG/DL Total Bilirubin 1.2 H 0.1-1.0 MG/DL Aspartate Amino Transf (AST/SGOT) 16 5-34 U/L Alanine Aminotransferase (ALT/SGPT) 22 0-55 U/L Alkaline Phosphatase 147 H 40-136 U/L B-Type Natriuretic Peptide 39.5 <100.0 PG/ML Total Protein 6.1 L 6.4-8.2 GM/DL Albumin 3.6 3.2-4.5 GM/DL Urine Color YELLOW Urine Clarity VERY CLOUDY H Urine pH 5 5-9 Urine Specific Dennard 1.020 1.016-1.022 Urine Protein 3+ H NEGATIVE Urine Glucose (UA) NEGATIVE NEGATIVE Urine Ketones NEGATIVE NEGATIVE Urine Nitrite POSITIVE H NEGATIVE Urine Bilirubin NEGATIVE NEGATIVE Urine Urobilinogen NORMAL NORMAL MG/DL Urine Leukocyte Esterase 3+ H NEGATIVE Urine RBC (Auto) 5+ H NEGATIVE Urine RBC 2-5 H /HPF Urine WBC TNTC H /HPF Urine Squamous Epithelial Cells 2-5 /HPF Urine Crystals NONE /LPF Urine Bacteria LARGE H /HPF Urine Casts NONE /LPF Urine Mucus NEGATIVE /LPF Urine Culture Indicated CULTURE PENDING Micro Results Microbiology 05/29/19 Influenza Types A,B Antigen (ADAMARIS) - Final, Complete My Orders Orders - NASREEN BLOUNT DO Cbc With Automated Diff (05/29/19 18:35) Comprehensive Metabolic Panel (05/29/19 18:35) Blood Culture (05/29/19 18:35) Sputum Culture (05/29/19 18:35) Urinalysis (05/29/19:35) Urine Culture (05/29/19:35) Protime With Inr (05/29/19:35) Partial Thromboplastin Time (05/29/19 18:35) Ed Iv/Invasive Line Start (05/29/19 18:35) Ed Iv/Invasive Line Start (05/29/19 18:35) Vital Signs Adult Sepsis Patie Q15M (05/29/19 18:35) O2 (05/29/19 18:35) Remove Rings In Anticipation O (05/29/19 18:35) Lactic Acid Analyzer (05/29/19 18:35) Influenza A And B Antigens (05/29/19 18:35) Albuterol/Ipra Inhalation Soln (Duoneb I (05/29/19 18:45) Dexamethasone Injection (Decadron Inject (05/29/19 18:45) Rt Request For Service (05/29/19 18:35) Methylprednisolone Sod Succ (Solu-Medrol (05/29/19 18:35) Chest Pa/Lat (2 View) (05/29/19 18:35) Monitor-Rhythm Ecg Trace Only (05/29/19 18:35) BNP (05/29/19 18:35) Magnesium (05/29/19 18:35) Svn Small Volume Nebulizer (05/29/19 18:35) Acetaminophen Tablet (Tylenol Tablet) (05/29/19 18:45) Manual Differential (05/29/19 18:50) Ceftriaxone For Iv Use (Rocephin For I (05/29/19 19:45) Azithromycin Injection (Zithromax Inject (05/29/19 19:45) Ekg Tracing (05/29/19 19:51) Ed Iv/Invasive Line Start (05/29/19 19:57) Ns Iv 1000 Ml (Sodium Chloride 0.9%) (05/29/19 19:57) Medications Given in ED Current Medications Medications Dose Ordered Sig/Eloise Route Start Time Stop Time Status Last Admin Dose Admin Acetaminophen 1,000 mg ONCE ONCE PO 05/29/19 18:45 05/29/19 18:46 DC 05/29/19 18:45 1,000 MG Albuterol/ Ipratropium 3 ml ONCE ONCE INH 05/29/19 18:45 05/29/19 18:46 DC 05/29/19 18:50 3 ML Azithromycin 500 mg/Sodium Chloride 250 ml @ 250 mls/hr ONCE ONCE IV 05/29/19 19:45 05/29/19 20:44 DC 05/29/19 20:23 250 MLS/HR Ceftriaxone Sodium 1000 mg/ Sterile Water 10 ml @ 200 mls/hr ONCE ONCE IV 05/29/19 19:45 05/29/19 19:47 DC 05/29/19 20:23 200 MLS/HR Dexamethasone Sodium Phosphate 20 mg ONCE ONCE IH 05/29/19 18:45 05/29/19 18:46 DC 05/29/19 18:50 20 MG Sodium Chloride 1,000 ml @ 0 mls/hr Q0M ONCE IV 05/29/19 19:57 05/29/19 19:58 DC 05/29/19 20:23 250 MLS/HR Vital Signs/I&O 05/29/19 05/29/19 18:23 19:46 Temp 38.0 Pulse 90 Resp 20 B/P (MAP) 131/72 (91) Pulse Ox 93 O2 Delivery Room Air Capillary Refill : Less Than 3 Seconds Blood Pressure Mean: 91 Progress Note : Progress Note GIVEN NEB TREATMENT WITH INCREASED AERATION, DECREASED WHEEZINB, BUT PT CONTINUES TO HAVE FORCED/INTENTIONAL HARSH EXPIRATION WITH "WHEEZING" --THIS STOPS WITH DISTRACTION OR WITH BREATHING THROUGH NOSE PT BREATHES NORMALLY WHEN NO ONE IS IN ROOM PT PLAYING ON IPAD AND TEXTING/PLAYING ON PHONE DURING ENTIRE ER STAY O2 SATS 90-92/5 ON ROOM AIR--PLACED ON O2 AT 2L/NC AND SATS UP TO 94-95% NO COMPLAINTS FOR REMAINDER OF ER STAY PT STATES SHE DOES NOT FEEL COMFORTABLE GOING HOME DUE TO RECENT HISTORY OF UTI WITH SEPSIS PT REFUSES TO ALLOW NURSING STAFF TO USE PORT, EVEN THOUGH SHE STATES SHE JUST HAD IT FLUSHED LAST WEEK--WANTS PERIPHERAL IV ECG Initial ECG Impression Date: May 29, 2019 Initial ECG Impression Time: 20:06 Initial ECG Rate: 78 Initial ECG Rhythm: Normal Sinus Diagnostic Imaging Comments CXR--NO ACUTE PROCESS, MILD VASCULAR PROMINENCE AND CARDIOMEGALY. CENTRAL LINE MAY BE DISCONTINUOUS--PER RADIOLOGIST REPORT AT 2032 Reviewed: Reviewed by Me Departure Communication (Admissions) 2112--SPOKE WITH DR. HERRING, ACCEPTS PT FOR ADMIT. Impression Primary Impression: SEPSIS Additional Impressions: Acute exacerbation of chronic bronchitis NIDDM UTI (urinary tract infection) Hypoxia Disposition: ADMITTED INPATIENT Condition: Improved Admissions Decision to Admit Reason: Admit from ER (General) Decision to Admit/Date: May 29, 2019 Time/Decision to Admit Time: 21:15 Departure-Patient Inst. Referrals: KATHLEEN CABRERA MD Add. Discharge Instructions: All discharge instructions reviewed with patient and/or family. Voiced understanding. NASREEN BLOUNT DO May 29, 2019 18:44
[2019-05-29] MEDS ORDERED: ACETAMINOPHEN 500 MG TAB (TYLENOL) PO ONE (18:45)
[2019-05-29] MEDS ORDERED: RT-ALBUTEROL/IPRATROPIUM 3 ML (DUONEB) VIAL INH ONE (18:45)
[2019-05-29] MEDS ORDERED: DEXAMETHASONE 4 MG/ML SDV (DECADRON) IH ONE (18:45)
[2019-05-29 19:10] LABS: BASOPHILS % (AUTO) 0 % (0-10); EOSINOPHILS # (AUTO) 0.2 10^3/uL (0.0-0.3); EOSINOPHILS % (AUTO) 1 % (0-10); HEMATOCRIT 38 % (35-52); HEMOGLOBIN 12.3 G/DL (11.5-16.0); LYMPHOCYTES # (AUTO) 1.6 X 10^3 (1.0-4.0); LYMPHOCYTES % (AUTO) 10 % (12-44); MEAN CORPUSCULAR HEMOGLOBIN 27 PG (25-34); MEAN CORPUSCULAR HGB CONC 33 G/DL (32-36); MEAN CORPUSCULAR VOLUME 83 FL (80-99); MEAN PLATELET VOLUME 9.7 FL (7.4-10.4); MONOCYTES # (AUTO) 0.5 X 10^3 (0.0-1.0); MONOCYTES % (AUTO) 4 % (0-12); NEUTROPHILS # (AUTO) 12.9 X 10^3 (1.8-7.8); NEUTROPHILS % (AUTO) 85 % (42-75); PLATELET COUNT 231 10^3/uL (130-400); WHITE BLOOD COUNT 15.2 10^3/uL (4.3-11.0)
[2019-05-29 19:22] LABS: PROTHROMBIN TIME PATIENT 13.8 SEC (12.2-14.7)
--- NOTE | 2019-05-29 19:24 | NUR ---
lab in room to obtain second set of blood cultures
[2019-05-29 19:32] LABS: BAND NEUTROPHILS 7 %; EOSINOPHILS % (MANUAL) 0 %; LYMPHOCYTES % (MANUAL) 8 %; MONOCYTES % (MANUAL) 2 %; NEUTROPHILS % (MANUAL) 81 %
[2019-05-29 19:33] LABS: ANISOCYTOSIS SLIGHT; BASOPHILS % (MANUAL) 0 %; METAMYELOCYTES % 0 %; POLYCHROMASIA SLIGHT; REACTIVE LYMPHOCYTES 2 %; TOXIC GRANULATION/VACUOLAZATIO 1+
[2019-05-29 19:36] LABS: ALBUMIN 3.6 GM/DL (3.2-4.5); BILIRUBIN,TOTAL 1.2 MG/DL (0.1-1.0); CALCIUM 9.5 MG/DL (8.5-10.1); CREATININE SERUM 0.93 MG/DL (0.60-1.30); MAGNESIUM 1.7 MG/DL (1.6-2.4); POTASSIUM 4.3 MMOL/L (3.6-5.0); TOTAL PROTEIN 6.1 GM/DL (6.4-8.2)
[2019-05-29] MEDS ORDERED: AZITHROMYCIN INJECTION 500 MG in NS (IVPB) 250 ML IV ONE (19:45)
[2019-05-29] MEDS ORDERED: cefTRIAXone FOR IV USE 1,000 MG in WATER (STERILE) FOR INJECTION 10 ML IV ONE (19:45)
[2019-05-29] MEDS ORDERED: NS IV 1000 ML 1,000 ML IV ONE (19:57)
--- NOTE | 2019-05-29 20:27 | Diagnostic Imaging Report ---
INDICATION: Shortness of breath and cough. PA and lateral chest obtained at 7:34 pm and compared to 03/30/2019. Heart is borderline in size. There is mild central vascular prominence. There are chronic appearing increased interstitial markings. There is no acute consolidation or pneumothorax or pleural fluid. Central venous catheter is seen which may be discontinuous. Its tip overlies the inferior portion of the right atrium. IMPRESSION: Borderline heart size with mild central vascular prominence. No focal infiltrate or pneumothorax or pleural fluid. Port-A-Cath catheter seen which may be discontinuous, correlate clinically, consider catheter injection if there is clinical suspicion. Its tip appears to overlie the inferior portion of the right atrium. Dictated by: Dictated on workstation # [id number]
[2019-05-29] MEDS ORDERED: BENZ100C18 PO (20:41)
[2019-05-29] MEDS ORDERED: GUAI1TBM19 PO (20:41)
[2019-05-29] MEDS ORDERED: METH4TAB PO (20:41)
[2019-05-29] MEDS ORDERED: IPRA3AMP31 IH (20:41)
[2019-05-29] MEDS ORDERED: CEFD300C3 PO (20:41)
[2019-05-29] MEDS ORDERED: AZIT500T PO (20:41)
[2019-05-29 20:52] LABS: BILIRUBIN,URINE NEGATIVE (NEGATIVE); CLARITY,URINE VERY CLOUDY; COLOR,URINE YELLOW; GLUCOSE, URINE (UA) NEGATIVE (NEGATIVE); KETONES,URINE NEGATIVE (NEGATIVE); LEUKOCYTE ESTERASE ,URINE 3+ (NEGATIVE); NITRITE,URINE POSITIVE (NEGATIVE); PH,URINE 5 (5-9); PROTEIN,URINE 3+ (NEGATIVE); UROBILINOGEN,URINE NORMAL (NORMAL)
[2019-05-29 21:00] LABS: BACTERIA,URINE LARGE /HPF; WBC,URINE TNTC /HPF
[2019-05-29] MEDS ORDERED: MEROPENEM 2,000 MG in NS (IVPB) 100 ML IV ONE (21:30)
[2019-05-29] MEDS ORDERED: MEROPENEM 500 MG VIAL (MERREM) IV ONE (21:56)
[2019-05-29] MEDS ORDERED: NS (IVPB) 100 ML ONE (21:57)
[2019-05-29 22:46] VITALS: BP 132/61
--- NOTE | 2019-05-29 23:00 | NUR ---
ANA LUJAN admitted to room 420-1, with an admitting diagnosis of SEPSIS, on 05/29/19 from ED via STAFF, accompanied by .ANA LUJAN introduced to surroundings, call light, bed controls, phone, TV, temperature control, lights, meal times, smoking policy, visitor policy, side rail policy, bathrooms and showers. Patient Rights given to patient in the handbook. ANA LUJAN verbalizes understanding that [facility] is not responsible for the loss or damage to any personal effects or valuables that are kept in the patients posession during their hospitalization. Patient and/or family were informed about the Rapid Response Team and its purpose.
[2019-05-29] MEDS ORDERED: IBUPROFEN 800 MG (MOTRIN) TAB PO PRN (23:15)
[2019-05-29] MEDS ORDERED: ACETAMINOPHEN 500 MG TAB (TYLENOL) PO PRN (23:15)
[2019-05-29 23:16] VITALS: BP 132/61
[2019-05-30 00:15] VITALS: BP 118/54
[2019-05-30] MEDS ORDERED: methylPREDNISolone 125 MG (Solu-MEDROL) VIAL ONE (00:48)
[2019-05-30] MEDS: methylPREDNISolone 40 MG/ML (Solu-MEDROL) VIAL IV SCH ×2 (01:09→05:34)
[2019-05-30] MEDS: RT-ALBUTEROL/IPRATROPIUM 3 ML (DUONEB) VIAL INH SCH ×6 (01:39→21:04)
[2019-05-30 04:10] VITALS: BP 127/60
[2019-05-30] MEDS: NS IV 1000 ML 1,000 ML IV SCH ×4 (04:50→16:25)
[2019-05-30 04:58] LABS: BASOPHILS % (AUTO) 0 % (0-10); EOSINOPHILS % (AUTO) 0 % (0-10); HEMATOCRIT 36 % (35-52); HEMOGLOBIN 11.4 G/DL (11.5-16.0); LYMPHOCYTES # (AUTO) 0.8 X 10^3 (1.0-4.0); LYMPHOCYTES % (AUTO) 7 % (12-44); MEAN CORPUSCULAR HEMOGLOBIN 27 PG (25-34); MEAN CORPUSCULAR HGB CONC 32 G/DL (32-36); MEAN CORPUSCULAR VOLUME 85 FL (80-99); MEAN PLATELET VOLUME 10.7 FL (7.4-10.4); MONOCYTES # (AUTO) 0.1 X 10^3 (0.0-1.0); MONOCYTES % (AUTO) 1 % (0-12); NEUTROPHILS % (AUTO) 93 % (42-75); PLATELET COUNT 217 10^3/uL (130-400); RED CELL DISTRIBUTION WIDTH 15.9 % (10.0-14.5); WHITE BLOOD COUNT 12.9 10^3/uL (4.3-11.0)
--- NOTE | 2019-05-30 05:15 | NUR ---
DR HERRING NOTIFIED OF CRITICAL GLUCOSE OF 578 CAPILLARY BLOOD. HE ORDERED 9 U NOVOLOG, MONITOR, AND RECHECK B/S IN 2 HOURS. LAB CALLED IN CRITICAL VENOUS OF 607. DR HERRING NOTIFIED AGAIN VIA TEXT OF VENOUS BLOOD SUGAR AND THAT SHE HAD HAD 2 ROUNDS OF SOLU MEDROL. HE ORDERED TO HOLD 0600 DOSE. PT NOTIFIED. SHE REPORTS NOT FEELING SYMPTOMATIC OF HYPERGLYCEMIA. DR HERRING ALSO ORDERED ALL HOME MEDS, WHICH INCLUDED PTS OXYCODONE 5-10 MG Q 6 HR PRN PAIN. THIS NURSE PICTURE FRAMER ADMIN 5 MG, PAIN REPORTED FROM PT AT 8 TO LEGS.
[2019-05-30 05:24] LABS: ALBUMIN 3.3 GM/DL (3.2-4.5); BILIRUBIN,TOTAL 0.7 MG/DL (0.1-1.0); CALCIUM 9.3 MG/DL (8.5-10.1); CREATININE SERUM 1.23 MG/DL (0.60-1.30); TOTAL PROTEIN 6.3 GM/DL (6.4-8.2)
[2019-05-30] MEDS ORDERED: OXYC-529 PO (05:26)
[2019-05-30] MEDS ORDERED: MEROPENEM 2,000 MG in NS (IVPB) 100 ML IV SCH (06:00)
[2019-05-30] MEDS ORDERED: inSUlin ASPART (NovoLOG) 1 UNIT/0.01 ML (CHARGE PER UNIT) SC SCH ×2 (06:00→11:00)
--- NOTE | 2019-05-30 06:30 | NUR ---
PT REQUEST ACCUCHECK, B/S AT THAT TIME WAS 538. DR HERRING NOTIFIED VIA TEXT. SHE DOES HAVE SCHEDULED ACCUCHECK/NOVOLOG AT 0930.
[2019-05-30] MEDS ORDERED: MEROPENEM 500 MG in NS (IVPB) 100 ML IV SCH (07:45)
[2019-05-30] MEDS ORDERED: DOCUSATE SODIUM 100 MG (COLACE) CAP PO PRN (07:45)
[2019-05-30] MEDS ORDERED: PANTOPRAZOLE 40 MG (PROTONIX) TAB PO PRN (07:45)
[2019-05-30 08:00] VITALS: BP 132/65
[2019-05-30] MEDS: MEROPENEM 500 MG/SWFI 10 ML IV PUSH IV SCH ×6 (08:49→20:55)
[2019-05-30] MEDS: GABAPENTIN 600 MG (NEURONTIN) TAB PO SCH ×3 (08:49→20:57)
[2019-05-30] MEDS: FERROUS SULF 325 MG (IRON) TAB PO SCH (08:51)
[2019-05-30] MEDS ORDERED: ACETAMINOPHEN 500 MG TAB (TYLENOL) PO PRN (09:00)
[2019-05-30] MEDS: CELECOXIB 100 MG (CeleBREX) CAP PO SCH ×2 (09:58→20:57)
[2019-05-30] MEDS: POLYETHYLENE GLYCOL 17 GM (MIRALAX) PACK PO SCH (09:58)
[2019-05-30] MEDS: PRAMIPEXOLE 0.5 MG TAB (MIRAPEX) PO SCH ×3 (09:59→20:58)
[2019-05-30] MEDS: OXYBUTYNIN (DITROPAN) 5 MG TAB PO SCH ×2 (10:00→20:57)
[2019-05-30] MEDS: LINAGLIPTIN (TRADJENTA) 5 MG TABLET PO SCH (10:00)
[2019-05-30] MEDS: ASCORBIC ACID (VIT C) 500 MG TABLET PO SCH ×3 (10:01→20:58)
[2019-05-30] MEDS: LACTOBACILLUS ACIDOPHILUS (PROBIOTIC) CAPSULE PO SCH (10:01)
[2019-05-30] MEDS: HYDROCHLOROTHIAZIDE 25 MG (HCTZ) TAB PO SCH (10:05)
--- NOTE | 2019-05-30 11:12 | NUR ---
ACCUCHECK 512. DR HERRING NOTIFIED. HE WILL ENTER ORDERS FOR INSULIN DRIP
[2019-05-30] MEDS ORDERED: inSUlin REGULAR TPN/DRIP ONLY 250 UNITS in NORMAL SALINE 250 ML IV SCH (11:15)
[2019-05-30] MEDS ORDERED: inSUlin (REGULAR) HUMAN 1 UNIT/0.01 ML (CHARGE PER UNIT) IV ONE (11:15)
[2019-05-30] MEDS ORDERED: MELATONIN 3 MG TABLET PO PRN (11:15)
[2019-05-30] MEDS ORDERED: DEXTROSE 50% 50 ML (IMS) SYR IV PRN (11:15)
[2019-05-30] MEDS ORDERED: inSUlin (REGULAR) HUMAN 1 UNIT/0.01 ML (CHARGE PER UNIT) IV NR (11:43)
[2019-05-30] MEDS: DICLOFENAC 1% GEL 100 GM (VOLTAREN) TUBE TOP SCH ×3 (11:51→21:00)
[2019-05-30 12:00] VITALS: BP 149/71
--- NOTE | 2019-05-30 13:19 | History & Physical-Hospitalist ---
History of Present Illness HPI/Chief Complaint Micki Kelley is a 69yoF with PMH HTN, T2DM, osteoarthritis, who presented with malaise. She reports that she has been having cough and sputum production for about a week. She reports fevers. She denies dysuria and frequency. She has been having incontinence and has started wearing "Depends". She denies chest pain and dyspnea. She reports right leg pain which has been chronic since her knee replacement. Source: patient, family Exam Limitations: no limitations Date Seen 05/30/19 Time Seen by a Provider: 10:45 Attending Physician Mary Herring MD PCP Sebas Mullen DO Referring Physician Date of Admission May 29, 2019 at 21:15 Home Medications & Allergies Home Medications Reviewed patient Home Medication Reconciliation performed by pharmacy medication reconciliations technicians and trades workers and/or nursing. Patients Allergies have been reviewed. Allergies Allergies Coded Allergies No Known Drug Allergies (Unverified02/11/14) Past Xfdwlob-Sflnfb-Bkaweh Hx Past Med/Social Hx: Reviewed Nursing Past Med/Soc Hx Patient Social History Alcohol Use: Occasionally Uses Recreational Drug Use: No Smoking Status: Never a Smoker 2nd Hand Smoke Exposure: No Recent Foreign Travel: No Contact w/other who traveled: No Recent Hopitalizations: Yes (01/2019--RIGHT KNEE REPLACEMENT; ADMIT 03/30- 04/09/19 FOR UTI WITH SEPSIS. ) Recent Infectious Disease Expo: No Immunizations Up To Date Tetanus Booster (TDap): More than 5yrs Date of Pneumonia Vaccine: Oct 04, 2011 Date of Influenza Vaccine: Jul 06, 2013 Seasonal Allergies Seasonal Allergies: No Past Medical History Surgeries: Abdominal, Joint Replacement, Neurological, Orthopedic, Thyroidectomy Currently Using CPAP: Yes Cardiac: High Cholesterol Reproductive: No Sexually Transmitted Disease: No HIV/AIDS: No Female Reproductive Disorders: Denies Menopausal Gastrointestinal: Chronic Constipation, Chronic Diarrhea Musculoskeletal: Arthritis, Chronic Back Pain Endocrine: Diabetes, Non-Insulin dep HEENT: Cataract Loss of Vision: Denies Hearing Impairment: Denies Psychosocial: Anxiety, Depression History of Blood Disorders: No Adverse Reaction to Blood Krause: No Family History Cancer 03 FATHER (PANCREATIC, PASSED AT 65 FROM THIS) Cataract 03 MOTHER Dementia 03 MOTHER Family history: Arthritis 03 MOTHER Family history: Cardiovascular disease 03 MOTHER (HIGH CHOLESTEROL, BALOON ARTERIES 2 TIMES) Hearing loss 03 MOTHER Hypercholesterolemia 03 MOTHER Cancer Review of Systems Constitutional: fever, malaise EENTM: no symptoms reported Respiratory: cough, phlegm Cardiovascular: no symptoms reported Gastrointestinal: no symptoms reported Genitourinary: incontinence Musculoskeletal: other (right leg pain) Skin: no symptoms reported Psychiatric/Neurological: No Symptoms Reported Physical Exam Physical Exam Vital Signs Vital Signs - First Documented 05/29/19 05/29/19 05/29/19 05/29/19 18:23 19:46 22:46 23:16 Temp 38.0 Pulse 90 Resp 20 B/P (MAP) 131/72 (91) Pulse Ox 93 O2 Delivery Room Air O2 Flow Rate 2.00 FiO2 28 Capillary Refill : Less Than 3 Seconds Height, Weight, BMI Height: 5'4.00" Weight: 232lbs. 0.0oz. 105.313862lk; 36.19 BMI Method:Stated General Appearance: No Apparent Distress, WD/WN, Obese HEENT: PERRL/EOMI, Pharynx Normal Neck: Normal Inspection, Supple Respiratory: Lungs Clear, Normal Breath Sounds, No Respiratory Distress Cardiovascular: Regular Rate, Rhythm, No Edema, No Murmur, Normal Peripheral Pulses Gastrointestinal: Normal Bowel Sounds, Non Tender, Soft Extremity: Normal Inspection, Non Tender, No Pedal Edema Neurologic/Psychiatric: Alert, Oriented x3, No Motor/Sensory Deficits, Normal Mood/Affect Skin: Normal Color, Warm/Dry Results Results/Procedures Labs Laboratory Tests 05/29/19 18:50 05/30/19 04:15 Patient resulted labs reviewed. Imaging: Reviewed Imaging Report Assessment/Plan Admission Diagnosis Sepsis due to urinary tract infection Admission Status: Inpatient Order (span 2 midnights) Reason for Inpatient Admission: History of ESBL E coli UTI requiring IV antibiotics Assessment and Plan Sepsis due to urinary tract infection History of ESBL -UA consistent with UTI -History of ESBL E coli -Started on Merrem -Await urine and blood culture results Viral upper respiratory infection -CXR negative for pneumonia -Started on IV steroids in ER -Discontinue steroids -Continue symptomatic treatments as needed -MAT protocol Steroid-induced hyperglycemia Type 2 diabetes mellitus -Blood sugar >600 this morning -One time Novolog dose given and improved to 500 -Started on insulin gtt Acute kidney injury -Mildly increased from baseline -Continue IV fluids Chronic leg pain -Tylenol, Oxycodone, Gabapentin, and Diclofenac ordered DVT Prophylaxis: Lovenox Diagnosis/Problems Diagnosis/Problems (1) Sepsis due to urinary tract infection Status: Acute (2) History of ESBL E. coli infection Status: Chronic (3) Steroid-induced hyperglycemia Status: Acute (4) Type 2 diabetes mellitus Status: Chronic (5) Acute kidney injury Status: Acute (6) Chronic pain of right lower extremity Status: Chronic (7) Viral upper respiratory infection Status: Acute Clinical Quality Measures DVT/VTE Risk/Contraindication: Risk Factor Score Per Nursin RFS Level Per Nursing on Admit: 4+=Very High MARY HERRING MD May 30, 2019 13:19
[2019-05-30] MEDS: ENOXAPARIN 40 MG/0.4 ML (LOVENOX) SYR SC SCH (14:06)
[2019-05-30 15:40] VITALS: BP 136/68
[2019-05-30] MEDS: inSUlin ASPART (NovoLOG) 1 UNIT/0.01 ML (CHARGE PER UNIT) SC SCH ×2 (16:22→21:27)
--- NOTE | 2019-05-30 16:39 | NUR ---
CALLED RT FOR BREATHING TREATMENT REQUESTED BY PATIENT
[2019-05-30] MEDS ORDERED: RT-ALBUTEROL/IPRATROPIUM 3 ML (DUONEB) VIAL INH SCH (16:50)
--- NOTE | 2019-05-30 16:52 | NUR ---
CALLED DR HERRING TO INQUIRE ABOUT STOPPING THE IV FLUIDS. RESPIRATORY THERAPY ASSESSED THE PATIENT. SHE IS WHEEZING AND CRACKLING IN THE BASES. THE R.T WILL GIVE THE TREATMENT TO CHECK FOR IMPROVEMENT. HE WANTS TO CONTINUE THE IV FLUIDS DUE TO HER KIDNEY FUNCTION AT THIS TIME.
[2019-05-30] MEDS ORDERED: inSUlin ASPART (NovoLOG) 1 UNIT/0.01 ML (CHARGE PER UNIT) SC ONE (17:00)
[2019-05-30 19:05] VITALS: BP 131/65
[2019-05-30] MEDS: SIMvastatin 40 MG (ZOCOR) TAB PO SCH (20:57)
[2019-05-30] MEDS: traZODone 50 MG (DESYREL) TAB PO SCH (20:58)
[2019-05-31 00:19] VITALS: BP 122/68
[2019-05-31] MEDS: MEROPENEM 500 MG/SWFI 10 ML IV PUSH IV SCH ×8 (02:06→20:41)
[2019-05-31] MEDS: RT-ALBUTEROL/IPRATROPIUM 3 ML (DUONEB) VIAL INH SCH ×6 (02:43→22:53)
[2019-05-31 04:22] VITALS: BP 121/68
[2019-05-31] MEDS: inSUlin ASPART (NovoLOG) 1 UNIT/0.01 ML (CHARGE PER UNIT) SC SCH ×4 (05:51→22:18)
[2019-05-31] MEDS: NS IV 1000 ML 1,000 ML IV SCH ×2 (05:52→20:41)
[2019-05-31 06:42] LABS: BASOPHILS % (AUTO) 0 % (0-10); EOSINOPHILS # (AUTO) 0.1 10^3/uL (0.0-0.3); EOSINOPHILS % (AUTO) 0 % (0-10); HEMATOCRIT 35 % (35-52); HEMOGLOBIN 10.9 G/DL (11.5-16.0); LYMPHOCYTES # (AUTO) 1.5 X 10^3 (1.0-4.0); LYMPHOCYTES % (AUTO) 10 % (12-44); MEAN CORPUSCULAR HEMOGLOBIN 27 PG (25-34); MEAN CORPUSCULAR HGB CONC 32 G/DL (32-36); MEAN CORPUSCULAR VOLUME 86 FL (80-99); MEAN PLATELET VOLUME 10.3 FL (7.4-10.4); MONOCYTES # (AUTO) 0.5 X 10^3 (0.0-1.0); MONOCYTES % (AUTO) 3 % (0-12); NEUTROPHILS # (AUTO) 13.4 X 10^3 (1.8-7.8); NEUTROPHILS % (AUTO) 87 % (42-75); PLATELET COUNT 211 10^3/uL (130-400); RED CELL DISTRIBUTION WIDTH 15.9 % (10.0-14.5); WHITE BLOOD COUNT 15.4 10^3/uL (4.3-11.0)
[2019-05-31 07:03] LABS: BUN/CREATININE RATIO 23; CALCIUM 9.2 MG/DL (8.5-10.1); CARBON DIOXIDE 26 MMOL/L (21-32); CHLORIDE 107 MMOL/L (98-107); CREATININE SERUM 0.84 MG/DL (0.60-1.30); GFR ESTIMATED > 60; GLUCOSE 248 MG/DL (70-105); MAGNESIUM 2.2 MG/DL (1.6-2.4); POTASSIUM 4.4 MMOL/L (3.6-5.0); SODIUM 139 MMOL/L (135-145)
[2019-05-31] MEDS: DICLOFENAC 1% GEL 100 GM (VOLTAREN) TUBE TOP SCH ×4 (08:49→20:45)
[2019-05-31] MEDS: PRAMIPEXOLE 0.5 MG TAB (MIRAPEX) PO SCH ×3 (08:49→20:43)
[2019-05-31] MEDS: GABAPENTIN 600 MG (NEURONTIN) TAB PO SCH ×3 (08:49→20:41)
[2019-05-31] MEDS: FERROUS SULF 325 MG (IRON) TAB PO SCH (08:49)
[2019-05-31] MEDS: HYDROCHLOROTHIAZIDE 25 MG (HCTZ) TAB PO SCH (08:49)
[2019-05-31] MEDS: ASCORBIC ACID (VIT C) 500 MG TABLET PO SCH ×3 (08:50→20:43)
[2019-05-31] MEDS: LACTOBACILLUS ACIDOPHILUS (PROBIOTIC) CAPSULE PO SCH (08:50)
[2019-05-31] MEDS: OXYBUTYNIN (DITROPAN) 5 MG TAB PO SCH ×2 (08:50→20:43)
[2019-05-31] MEDS: CELECOXIB 100 MG (CeleBREX) CAP PO SCH ×2 (08:50→20:43)
[2019-05-31] MEDS ORDERED: OXYC-465 PO (08:51)
[2019-05-31] MEDS ORDERED: TRAZ-190 PO (08:51)
[2019-05-31] MEDS: LINAGLIPTIN (TRADJENTA) 5 MG TABLET PO SCH (08:51)
[2019-05-31] MEDS: POLYETHYLENE GLYCOL 17 GM (MIRALAX) PACK PO SCH (08:52)
[2019-05-31 08:56] VITALS: BP 125/60
[2019-05-31] MEDS ORDERED: ASCO500C15 PO (09:03)
[2019-05-31] MEDS ORDERED: FERR-84 PO (09:03)
--- NOTE | 2019-05-31 09:12 | NUR ---
SPOKE WITH PT WELL GOING OVER THE EXT MED HISTORY TO COMPLETE THE MED REC. PT WAS ABLE TO TELL ME HOW SHE TAKES HER MEDS AND THEY WERE CONSISTENT WITH THE EXT MED HISTORY EXCEPT THE FOLLOWING MED: GABAPENTIN 600M TABS TID PICKED UP ON 05-18-2019 #270, THE EXT MED HISTORY DID NOT SHOW THIS. THERE ARE 2 EYE DROPS AND 2 CREAMS THAT THE PT HAS PICKED UP BUT HAS NOT STARTED USING. PT STATES THE EYE DROPS SHE WILL ONLY START USING BEFORE HER CATARACT PROCEDURE AND THE CREAM WAS JUST PICKED UP THE DAY BEFORE SHE WAS ADMITTED. OTC MEDS: DOCUSATE: 1 DAILY PRN MIRALAX: 1 CAPFUL D
[2019-05-31] MEDS ORDERED: DIAZ5TAB3 PO (09:17)
[2019-05-31 12:00] VITALS: BP 134/63
[2019-05-31] MEDS: ENOXAPARIN 40 MG/0.4 ML (LOVENOX) SYR SC SCH (13:22)
--- NOTE | 2019-05-31 15:21 | Progress Note - Hospitalist ---
Subjective HPI/CC On Admission Date Seen by Provider: May 31, 2019 Time Seen by Provider: 15:15 Micki Kelley is a 69yoF with PMH HTN, T2DM, osteoarthritis, who presented with malaise. She reports that she has been having cough and sputum production for about a week. She reports fevers. She denies dysuria and frequency. She has been having incontinence and has started wearing "Depends". She denies chest pain and dyspnea. She reports right leg pain which has been chronic since her knee replacement. Subjective/Events-last exam Pt reports still feeling poorly and SOB. Was up walking yesterday though. No other complaints. Still on oxygen. Focused Exam Lactate Level 05/29/19 18:50: Lactic Acid Level 1.84 Objective Exam Vital Signs Vital Signs Date Time Temp Pulse Resp B/P (MAP) Pulse Ox O2 Delivery O2 Flow Rate FiO2 06/01/19 12:00 35.5 65 20 151/75 (100) 94 Nasal Cannula 2.00 05/29/19 23:16 28 Capillary Refill : Less Than 3 Seconds General Appearance: No Apparent Distress, WD/WN Respiratory: Rhonci (with significant upper airway noise) Cardiovascular: Regular Rate, Rhythm, No Murmur Gastrointestinal: Normal Bowel Sounds, Soft Neurologic/Psychiatric: Alert, Oriented x3 Results/Procedures Lab Laboratory Tests 06/01/19 04:45 Patient resulted labs reviewed. Imaging: Reviewed Imaging Report Assessment/Plan Assessment and Plan Assess & Plan/Chief Complaint Sepsis due to urinary tract infection History of ESBL -UA consistent with UTI -History of ESBL E coli -Cont Merrem -Current urine culture shows e coli, awaiting sensitivities, and blood cultures negative Viral upper respiratory infection -CXR negative for pneumonia -Continue symptomatic treatments as needed -MAT protocol Steroid-induced hyperglycemia Type 2 diabetes mellitus, non insulin dependent -Blood sugar improved, now off insulin gtt Acute kidney injury- resolved Chronic leg pain -Tylenol, Oxycodone, Gabapentin, and Diclofenac ordered DVT Prophylaxis: Lovenox Clinical Quality Measures DVT/VTE Risk/Contraindication: Risk Factor Score Per Nursin RFS Level Per Nursing on Admit: 4+=Very High HONORIO HAMPTON MD May 31, 2019 15:21
[2019-05-31 15:53] VITALS: BP 135/69
--- NOTE | 2019-05-31 18:21 | NUR ---
PT IS AMBULATING DURING THE DAY IN HALLS ON OWN WITH PERSONNEL OR .
[2019-05-31 19:16] VITALS: BP 126/70
[2019-05-31] MEDS: SIMvastatin 40 MG (ZOCOR) TAB PO SCH (20:43)
[2019-05-31] MEDS: traZODone 50 MG (DESYREL) TAB PO SCH (22:18)
[2019-06-01 00:49] VITALS: BP 138/73
[2019-06-01] MEDS: MEROPENEM 500 MG/SWFI 10 ML IV PUSH IV SCH ×8 (02:34→20:34)
[2019-06-01] MEDS: RT-ALBUTEROL/IPRATROPIUM 3 ML (DUONEB) VIAL INH SCH ×6 (02:43→21:55)
[2019-06-01 04:55] VITALS: BP 133/71
[2019-06-01 05:47] LABS: BUN/CREATININE RATIO 21; CALCIUM 9.1 MG/DL (8.5-10.1); CARBON DIOXIDE 21 MMOL/L (21-32); CHLORIDE 107 MMOL/L (98-107); CREATININE SERUM 0.82 MG/DL (0.60-1.30); GFR ESTIMATED > 60; GLUCOSE 194 MG/DL (70-105); POTASSIUM 4.4 MMOL/L (3.6-5.0); SODIUM 140 MMOL/L (135-145)
--- NOTE | 2019-06-01 06:44 | Physician Query Clarification ---
PQ-Further Specificity Admission/Discharge Admission Date: May 29, 2019 at 21:15 Discharge Date: The medical record reflects the following clinical scenario: History/Risk Factors: Sepsis UTI Clinical Findings: Creatinine 1.23 on 05/30, eGFR 44 on 05/30-Acute kidney injury given as dx on 05/30 H&P. Treatment: IV fluids Question: Can you further specify acute kidney injury per the clinical indicators above? Please document a response in the Progress Notes or Discharge Summary. 1. Acute kidney injury due to sepsis. 2. Acute kidney injury not due to sepsis. 3. Other, with explanation of the clinical findings. 4. Clinically undetermined, no explanation for the clinical findings. PHYSICIAN RESPONSE Can you specify per above: 1 Please remember a lack of response to the above will prompt a phone page by CDI/Coding staff. In responding to this query, please exercise your independent professional judgment. The purpose of this communication is to more accurately reflect the complexity of your patients condition. The fact that a question is asked does not imply that any particular answer is desired or expected. Thank you for your timely response to this clarification. Requestors name: Dayna Yip [facility] Phone # ext [phone] or [phone] THIS PHYSICIAN QUERY FORM IS A PERMANENT PART OF THE MEDICAL RECORD DAYNA YIP Jun 01, 2019 06:44 DANICA HERRING MD Jun 06, 2019 17:40
[2019-06-01] MEDS: inSUlin ASPART (NovoLOG) 1 UNIT/0.01 ML (CHARGE PER UNIT) SC SCH ×4 (06:55→21:21)
[2019-06-01 08:00] VITALS: BP 174/84
[2019-06-01] MEDS: POLYETHYLENE GLYCOL 17 GM (MIRALAX) PACK PO SCH (09:52)
[2019-06-01] MEDS: CELECOXIB 100 MG (CeleBREX) CAP PO SCH ×2 (09:52→20:35)
[2019-06-01] MEDS: LACTOBACILLUS ACIDOPHILUS (PROBIOTIC) CAPSULE PO SCH (09:53)
[2019-06-01] MEDS: NS IV 1000 ML 1,000 ML IV SCH (09:53)
[2019-06-01] MEDS: FERROUS SULF 325 MG (IRON) TAB PO SCH (09:53)
[2019-06-01] MEDS: PRAMIPEXOLE 0.5 MG TAB (MIRAPEX) PO SCH ×3 (09:53→20:34)
[2019-06-01] MEDS: ASCORBIC ACID (VIT C) 500 MG TABLET PO SCH ×3 (09:53→20:35)
[2019-06-01] MEDS: GABAPENTIN 600 MG (NEURONTIN) TAB PO SCH ×3 (09:53→20:35)
[2019-06-01] MEDS: OXYBUTYNIN (DITROPAN) 5 MG TAB PO SCH ×2 (09:53→20:35)
[2019-06-01] MEDS: DICLOFENAC 1% GEL 100 GM (VOLTAREN) TUBE TOP SCH ×4 (09:54→20:37)
[2019-06-01] MEDS: HYDROCHLOROTHIAZIDE 25 MG (HCTZ) TAB PO SCH (10:03)
[2019-06-01] MEDS: LINAGLIPTIN (TRADJENTA) 5 MG TABLET PO SCH (10:03)
[2019-06-01 12:00] VITALS: BP 151/75
--- NOTE | 2019-06-01 12:34 | Progress Note - Hospitalist ---
Subjective HPI/CC On Admission Date Seen by Provider: Jun 01, 2019 Time Seen by Provider: 12:26 Micki Kelley is a 69yoF with PMH HTN, T2DM, osteoarthritis, who presented with malaise. She reports that she has been having cough and sputum production for about a week. She reports fevers. She denies dysuria and frequency. She has been having incontinence and has started wearing "Depends". She denies chest pain and dyspnea. She reports right leg pain which has been chronic since her knee replacement. Subjective/Events-last exam Pt reports feeling better today but yesterday was so short of breath she "thought I was going to ." Breathing better today though. Focused Exam Lactate Level 05/29/19 18:50: Lactic Acid Level 1.84 Objective Exam Vital Signs Vital Signs Date Time Temp Pulse Resp B/P (MAP) Pulse Ox O2 Delivery O2 Flow Rate FiO2 06/01/19 12:00 35.5 65 20 151/75 (100) 94 Nasal Cannula 2.00 05/29/19 23:16 28 Capillary Refill : Less Than 3 Seconds General Appearance: No Apparent Distress, WD/WN Respiratory: No Accessory Muscle Use, No Respiratory Distress, Wheezing (scant), Other (on oxygen) Cardiovascular: Regular Rate, Rhythm, No Murmur Neurologic/Psychiatric: Alert, Oriented x3 Results/Procedures Lab Laboratory Tests 06/01/19 04:45 Patient resulted labs reviewed. Imaging: Reviewed Imaging Report Assessment/Plan Assessment and Plan Assess & Plan/Chief Complaint Sepsis due to urinary tract infection History of ESBL -UA consistent with UTI -History of ESBL E coli -Cont Merrem -Current urine culture growing ESBL e coli Viral upper respiratory infection -CXR negative for pneumonia -Continue symptomatic treatments as needed -MAT protocol -Remains on oxygen -Pulm consulted, appreciate recs Steroid-induced hyperglycemia Type 2 diabetes mellitus, non insulin dependent -Blood sugar improved with discontinuation of steroids -Trend Acute kidney injury- resolved -Mildly increased from baseline -Continue IV fluids Chronic leg pain -Tylenol, Oxycodone, Gabapentin, and Diclofenac ordered DVT Prophylaxis: Lovenox Clinical Quality Measures DVT/VTE Risk/Contraindication: Risk Factor Score Per Nursin RFS Level Per Nursing on Admit: 4+=Very High HONORIO HAMPTON MD Jun 01, 2019 12:34
[2019-06-01] MEDS: ENOXAPARIN 40 MG/0.4 ML (LOVENOX) SYR SC SCH (14:01)
--- NOTE | 2019-06-01 14:12 | Pulmonary Consultation ---
History of Present Illness History of Present Illness Date of Consultation 06/01/19 13:58 Time Seen by Provider: 13:59 Date of Admission History of Present Illness 69yo with hx of ESBL E Coli presented to ED secondary to productive cough, wheezing, and sputum production. Pt was found to have UTI with sepsis. Pt was admitted and placed on Merrem. Since admission pt has developed worsening SOB and wheezing. She was on prednisone however it was discontinued secondary to severe hyperglycemia. CXR is negative for infiltration. Allergies and Home Medications Allergies Coded Allergies: No Known Drug Allergies (Unverified , 02/11/14) Home Medications Ascorbate Calcium 500 Mg Tablet, 500 MG PO TID, (Reported) Celecoxib 200 Mg Capsule, 200 MG PO BID, (Reported) Citalopram Hydrobromide 20 Mg Tablet, 20 MG PO HS, (Reported) Diazepam 5 Mg Tablet, 5 MG PO TID PRN for ANXIETY, (Reported) Diclofenac Sodium 100 Gm Gel..gram., TOP BID PRN for LEG PAIN, (Reported) Docusate Sodium 100 Mg Capsule, 100 MG PO DAILY PRN for CONSTIPATION-1ST LINE, (Reported) Ferrous Sulfate 325 Mg Tablet, 325 MG PO DAILY, (Reported) Gabapentin 600 Mg Tablet, 1,800 MG PO TID, (Reported) TAKES 3 (600MG) TABLETS Hydrochlorothiazide 25 Mg Tablet, 25 MG PO DAILY, (Reported) Lactobacillus Combo No.10 1 Each Capsule, 1 CAP PO HS, (Reported) Oxybutynin Chloride 10 Mg Tab.er.24, 10 MG PO DAILY, (Reported) Oxycodone HCl/Acetaminophen 1 Each Tablet, 1 TAB PO TID PRN for PAIN-MODERATE, (Reported) Pantoprazole Sodium 40 Mg Tablet.dr, 40 MG PO DAILY PRN for HEARTBURN, (Reported) Polyethylene Glycol 3350 119 Gm Powder, 17 GM PO DAILY, (Reported) Pramipexole Di-HCl 0.5 Mg Tablet, 1 MG PO TID, (Reported) TAKES 2 (0.5MG) TABLETS Simvastatin 40 Mg Tablet, 40 MG PO HS, (Reported) Sitagliptin Phosphate 100 Mg Tablet, 100 MG PO DAILY, (Reported) Trazodone HCl 100 Mg Tablet, 100 MG PO HS, (Reported) Past Ddkfanb-Uweric-Vhkknl Hx Past Med/Social Hx: Reviewed Nursing Past Med/Soc Hx Patient Social History Alcohol Use: Occasionally Uses Recreational Drug Use: No Smoking Status: Never a Smoker 2nd Hand Smoke Exposure: No Recent Foreign Travel: No Contact w/Someone Who Travel: No Recent Infectious Disease Expo: No Recent Hopitalizations: Yes (01/2019--RIGHT KNEE REPLACEMENT; ADMIT 03/30- 04/09/19 FOR UTI WITH SEPSIS. ) Physical Abuse: No Sexual Abuse: No Mistreated: No Fear: No Immunizations Up To Date Tetanus Booster (TDap): More than 5yrs Date of Pneumonia Vaccine: Oct 04, 2011 Date of Influenza Vaccine: Jul 06, 2013 Seasonal Allergies Seasonal Allergies: No Past Medical History Surgeries: Yes (RIGHT KNEE REPLACEMENT 01/27/[address] [facility] [address] MAGDALENO. 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 CHRONIC ABDOMINAL PAIN) Chronic Constipation, Chronic Diarrhea Musculoskeletal: Yes (CHRONIC GENERALIZED PAIN--NARCOTIC DEPENDENT/HX OF EXCESSIVE USE-POLYPHARMACY--TAKES DILAUDID, OXYCODONE, HYDROCODONE; RIGHT TOTAL KNEE REPLACEMENT 01/27/[address] [facility] [address] MAGDALENO; RESTLESS LEG SYNDROME) Arthritis, Chronic Back Pain Endocrine: Yes (BENIGN MASS LEFT THYROID REMOVED 01/01/2013) Diabetes, Non-Insulin dep HEENT: Yes Cataract Loss of Vision: Denies Hearing Impairment: Denies Cancer: No Psychosocial: Yes Anxiety, Depression Integumentary: No Blood Disorders: No Adverse Reaction/Blood Tranf: No Family Medical History Cancer 03 FATHER (PANCREATIC, PASSED AT 65 FROM THIS) Cataract 03 MOTHER Dementia 03 MOTHER Family history: Arthritis 03 MOTHER Family history: Cardiovascular disease 03 MOTHER (HIGH CHOLESTEROL, [place] ARTERIES 2 TIMES) Hearing loss 03 MOTHER Hypercholesterolemia 03 MOTHER Cancer Review of Systems Time Seen by Provider: 14:19 Sepsis Event Evaluation Height, Weight, BMI Height: 5'4.00" Weight: 232lbs. 0.0oz. 105.276624qw; 36.19 BMI Method:Stated Exam Exam Vital Signs Date Time Temp Pulse Resp B/P (MAP) Pulse Ox O2 Delivery O2 Flow Rate FiO2 06/01/19 12:00 35.5 65 20 151/75 (100) 94 Nasal Cannula 2.00 06/01/19 10:50 95 Nasal Cannula 2.00 06/01/19 08:00 Nasal Cannula 2.00 06/01/19 08:00 36.2 64 18 174/84 (114) 96 Nasal Cannula 2.00 06/01/19 07:00 56 06/01/19 06:41 95 Nasal Cannula 2.00 06/01/19 04:55 36.3 63 18 133/71 (91) 100 Nasal Cannula 2.00 06/01/19 02:43 95 Nasal Cannula 2.00 06/01/19 01:00 59 06/01/19 00:49 36.0 64 20 138/73 (94) 94 Nasal Cannula 2.00 05/31/19 22:53 94 Nasal Cannula 2.00 05/31/19 20:00 Nasal Cannula 2.00 05/31/19 19:16 35.8 61 20 126/70 (88) 96 Nasal Cannula 2.00 05/31/19 19:00 63 05/31/19 18:50 96 Nasal Cannula 2.00 05/31/19 15:53 35.8 66 22 135/69 (91) 95 Nasal Cannula 2.00 I & O 06/01/19 07:00 Intake Total 4170 ml Output Total 9100 ml Balance -4930 ml Height & Weight Height: 5'4.00" Weight: 232lbs. 0.0oz. 105.189199ql; 36.19 BMI Method:Stated General Appearance: No Apparent Distress, WD/WN HEENT: PERRL/EOMI, Pharynx Normal Neck: Normal Inspection, Supple Respiratory: Wheezing Cardiovascular: Regular Rate, Rhythm, No Murmur Capillary Refill: Less Than 3 Seconds Gastrointestinal: soft Extremity: Normal Inspection, Non Tender, No Pedal Edema Neurologic/Psychiatric: Alert, Oriented x3 Skin: Normal Color, Warm/Dry Results Lab Laboratory Tests 05/31/19 06:30 06/01/19 04:45 Assessment/Plan Assessment/Plan SOB with wheezing secondary to acute bronchitis vs pulmonary edema -Lasix 60mg IV x 1 and check BNP - -SL IVF currently going at 30cc/hr -Check repeat CXR -Add advair and continue Duoneb Q 4 UTI with ESBL -Currently on Merrem NEETA ROBERTS DO Jun 01, 2019 14:12
[2019-06-01] MEDS ORDERED: FUROSEMIDE 40 MG/4 ML INJ (LASIX) IVP NR (14:30)
--- NOTE | 2019-06-01 15:00 | Diagnostic Imaging Report ---
Indication: Shortness of breath, bronchitis Portable chest 2:47 PM Heart size and pulmonary vascularity are normal. Lungs are clear. There are no effusions or pneumothoraces. IMPRESSION: Negative chest Dictated by: Dictated on workstation # [id number]
--- NOTE | 2019-06-01 15:37 | NUR ---
Initial visit with the pt and her of 49 years, Hunter. The pt shared about her recent nerve pain in her left vallejo and top of her foot has been the most challenging pain she has struggled with since her knee surgery. She said her knee was reoperated on 3 years following the initial surgery. She also shared her current experience with pneumonia and a UTI. I engaged in rapport building and offered empathic listening. She further shared that her sister at the age of 38, leaving two daughters. She said her nieces do not speak to each other, and the pt is DPOA for one niece who is in a group home on dialysis. The pt was in the process of sharing further when staff arrived to take an X Ray of her lungs. The pt thanked me for coming and asked me to be praying for her. I then asked the pt if she would like prayer before her X ray and she said yes. After offering prayer, I exited the room with Hunter. He shared that they have "many stories" and feel that at times they must laugh to keep from being discouraged. He shared about their estranged relationship with their son, which Hunter describes as sudden and painful. Hunter said he was thankful I came by and listened.
[2019-06-01 16:24] VITALS: BP 159/72
[2019-06-01 19:57] VITALS: BP 141/65
[2019-06-01] MEDS ORDERED: RT-ADVAIR HFA 115/21 MCG PER PUFF IH SCH (20:00)
[2019-06-01] MEDS: SIMvastatin 40 MG (ZOCOR) TAB PO SCH (20:35)
[2019-06-01] MEDS: traZODone 50 MG (DESYREL) TAB PO SCH (20:36)
[2019-06-02] VITALS (7 sets, daily range): BP systolic 110–156; BP diastolic 59–74
[2019-06-02] MEDS: MEROPENEM 500 MG/SWFI 10 ML IV PUSH IV SCH ×8 (01:44→20:49)
[2019-06-02] MEDS: RT-ALBUTEROL/IPRATROPIUM 3 ML (DUONEB) VIAL INH SCH ×5 (02:09→18:50)
[2019-06-02] MEDS: inSUlin ASPART (NovoLOG) 1 UNIT/0.01 ML (CHARGE PER UNIT) SC SCH ×4 (05:57→21:14)
--- NOTE | 2019-06-02 06:49 | Pulmonary Progress Note ---
Sepsis Event Evaluation Height, Weight, BMI Height: 5'4.00" Weight: 232lbs. 0.0oz. 105.215286oq; 36.19 BMI Method:Stated Exam Exam Vital Signs Date Time Temp Pulse Resp B/P (MAP) Pulse Ox O2 Delivery O2 Flow Rate FiO2 06/02/19 04:50 35.8 60 20 121/74 (90) 96 Nasal Cannula 2.00 06/02/19 02:09 94 Nasal Cannula 2.00 06/02/19 01:00 62 06/02/19 00:49 35.6 67 20 110/69 (83) 95 Nasal Cannula 2.00 06/01/19 20:45 Nasal Cannula 2.00 06/01/19 19:57 35.6 81 18 141/65 (90) 94 Nasal Cannula 2.00 06/01/19 19:00 69 06/01/19 18:55 95 Nasal Cannula 2.00 06/01/19 16:24 36.5 70 20 159/72 (101) 95 Nasal Cannula 2.00 06/01/19 15:51 53 93 21 06/01/19 14:12 93 Room Air 06/01/19 13:00 65 06/01/19 12:00 35.5 65 20 151/75 (100) 94 Nasal Cannula 2.00 06/01/19 10:50 95 Nasal Cannula 2.00 06/01/19 08:00 Nasal Cannula 2.00 06/01/19 08:00 36.2 64 18 174/84 (114) 96 Nasal Cannula 2.00 06/01/19 07:00 56 I & O 06/02/19 07:00 Intake Total 2650 ml Output Total 7200 ml Balance -4550 ml Height & Weight Height: 5'4.00" Weight: 232lbs. 0.0oz. 105.082330xt; 36.19 BMI Method:Stated General Appearance: No Apparent Distress, WD/WN HEENT: PERRL/EOMI, Pharynx Normal Neck: Normal Inspection, Supple Respiratory: Wheezing Cardiovascular: Regular Rate, Rhythm, No Murmur Capillary Refill: Less Than 3 Seconds Gastrointestinal: soft Extremity: Normal Inspection, Non Tender, No Pedal Edema Neurologic/Psychiatric: Alert, Oriented x3 Skin: Normal Color, Warm/Dry Results Lab Laboratory Tests 06/01/19 04:45 Assessment/Plan Assessment/Plan SOB with wheezing secondary to acute bronchitis vs pulmonary edema -Check repeat CXR -Add advair and continue Duoneb Q 4 UTI with ESBL -Currently on Merrem NEETA ROBERTS DO Jun 02, 2019 06:48
[2019-06-02] MEDS ORDERED: PROMETHAZINE/ CODEINE SYRUP 5 ML UDC PO PRN (07:15)
[2019-06-02 07:52] LABS: BASOPHILS % (AUTO) 0 % (0-10); EOSINOPHILS # (AUTO) 0.2 10^3/uL (0.0-0.3); EOSINOPHILS % (AUTO) 2 % (0-10); HEMATOCRIT 38 % (35-52); HEMOGLOBIN 11.8 G/DL (11.5-16.0); LYMPHOCYTES # (AUTO) 1.7 X 10^3 (1.0-4.0); LYMPHOCYTES % (AUTO) 21 % (12-44); MEAN CORPUSCULAR HEMOGLOBIN 27 PG (25-34); MEAN CORPUSCULAR HGB CONC 31 G/DL (32-36); MEAN CORPUSCULAR VOLUME 86 FL (80-99); MEAN PLATELET VOLUME 9.7 FL (7.4-10.4); MONOCYTES # (AUTO) 0.4 X 10^3 (0.0-1.0); MONOCYTES % (AUTO) 5 % (0-12); NEUTROPHILS % (AUTO) 72 % (42-75); PLATELET COUNT 206 10^3/uL (130-400); RED CELL DISTRIBUTION WIDTH 16.2 % (10.0-14.5); WHITE BLOOD COUNT 8.3 10^3/uL (4.3-11.0)
[2019-06-02] MEDS: LACTOBACILLUS ACIDOPHILUS (PROBIOTIC) CAPSULE PO SCH ×3 (08:07→17:48)
[2019-06-02 08:13] LABS: BUN/CREATININE RATIO 20; CALCIUM 9.5 MG/DL (8.5-10.1); CARBON DIOXIDE 33 MMOL/L (21-32); CHLORIDE 98 MMOL/L (98-107); GFR ESTIMATED > 60; GLUCOSE 231 MG/DL (70-105); MAGNESIUM 1.9 MG/DL (1.6-2.4); PHOSPHORUS 4.2 MG/DL (2.3-4.7); POTASSIUM 3.7 MMOL/L (3.6-5.0); SODIUM 140 MMOL/L (135-145)
--- NOTE | 2019-06-02 09:24 | NUR ---
Pt is Evangelical. 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
[2019-06-02] MEDS: ADVAIR HFA 115/21 MCG INHALER 8 GM IH SCH ×2 (10:51→19:07)
[2019-06-02] MEDS: GABAPENTIN 600 MG (NEURONTIN) TAB PO SCH ×3 (10:59→20:50)
[2019-06-02] MEDS: HYDROCHLOROTHIAZIDE 25 MG (HCTZ) TAB PO SCH (10:59)
[2019-06-02] MEDS: CELECOXIB 100 MG (CeleBREX) CAP PO SCH ×2 (11:00→20:50)
[2019-06-02] MEDS: ASCORBIC ACID (VIT C) 500 MG TABLET PO SCH ×3 (11:00→20:52)
[2019-06-02] MEDS: FERROUS SULF 325 MG (IRON) TAB PO SCH (11:00)
[2019-06-02] MEDS: BENZONATATE 100 MG (TESSALON) CAPSULE PO SCH ×3 (11:01→20:51)
[2019-06-02] MEDS: OXYBUTYNIN (DITROPAN) 5 MG TAB PO SCH ×2 (11:01→20:52)
[2019-06-02] MEDS: LINAGLIPTIN (TRADJENTA) 5 MG TABLET PO SCH (11:01)
[2019-06-02] MEDS: PRAMIPEXOLE 0.5 MG TAB (MIRAPEX) PO SCH ×3 (11:01→20:52)
[2019-06-02] MEDS: DICLOFENAC 1% GEL 100 GM (VOLTAREN) TUBE TOP SCH ×4 (11:02→20:53)
[2019-06-02] MEDS: POLYETHYLENE GLYCOL 17 GM (MIRALAX) PACK PO SCH (11:02)
--- NOTE | 2019-06-02 13:29 | Progress Note - Hospitalist ---
Subjective HPI/CC On Admission Date Seen by Provider: Jun 02, 2019 Time Seen by Provider: 13:24 Micki Kelley is a 69yoF with PMH HTN, T2DM, osteoarthritis, who presented with malaise. She reports that she has been having cough and sputum production for about a week. She reports fevers. She denies dysuria and frequency. She has been having incontinence and has started wearing "Depends". She denies chest pain and dyspnea. She reports right leg pain which has been chronic since her knee replacement. Subjective/Events-last exam Patient reports feeling better. Breathing improved but still having episodes of coughing spells. Improves with tessalon. Objective Exam Vital Signs Vital Signs Date Time Temp Pulse Resp B/P (MAP) Pulse Ox O2 Delivery O2 Flow Rate FiO2 06/02/19 12:00 35.2 69 18 156/71 (99) 94 Room Air 06/02/19 10:51 2.00 06/01/19 15:51 21 Capillary Refill : Less Than 3 Seconds General Appearance: No Apparent Distress, WD/WN Respiratory: Lungs Clear, No Respiratory Distress Cardiovascular: Regular Rate, Rhythm, No Murmur Gastrointestinal: Normal Bowel Sounds, Non Tender, Soft Neurologic/Psychiatric: Alert, Oriented x3 Results/Procedures Lab Laboratory Tests 06/02/19 07:40 Patient resulted labs reviewed. Imaging: Reviewed Imaging Report Assessment/Plan Assessment and Plan Assess & Plan/Chief Complaint Sepsis due to urinary tract infection- resolved History of ESBL -UA consistent with UTI -History of ESBL E coli -Cont Merrem -Current urine culture shows e coli, awaiting sensitivities, and blood cultures negative Viral upper respiratory infection -CXR negative for pneumonia -Continue symptomatic treatments as needed -Responded well to lasix -MAT protocol -Now off oxygen Steroid-induced hyperglycemia Type 2 diabetes mellitus, non insulin dependent -Blood sugar improved, now off insulin gtt Acute kidney injury- resolved Chronic leg pain -Tylenol, Oxycodone, Gabapentin, and Diclofenac ordered DVT Prophylaxis: Lovenox Diagnosis/Problems Diagnosis/Problems (1) ESBL (extended spectrum beta-lactamase) producing bacteria infection Status: Acute (2) UTI (urinary tract infection) Status: Acute Qualifiers: Urinary tract infection type: acute cystitis Hematuria presence: without hematuria Qualified Codes: N30.00 - Acute cystitis without hematuria (3) Viral upper respiratory infection Status: Acute (4) Hypoxia Status: Acute (5) Acute kidney injury Status: Acute (6) Steroid-induced hyperglycemia Status: Acute Clinical Quality Measures DVT/VTE Risk/Contraindication: Risk Factor Score Per Nursin RFS Level Per Nursing on Admit: 4+=Very High HONORIO HAMPTON MD Jun 02, 2019 13:29
[2019-06-02] MEDS: ENOXAPARIN 40 MG/0.4 ML (LOVENOX) SYR SC SCH (14:38)
[2019-06-02] MEDS: SIMvastatin 40 MG (ZOCOR) TAB PO SCH (20:51)
[2019-06-02] MEDS: traZODone 50 MG (DESYREL) TAB PO SCH (20:56)
[2019-06-02] MEDS: RT-ALBUTEROL/IPRATROPIUM 3 ML (DUONEB) VIAL INH PRN (22:13)
[2019-06-03 00:40] VITALS: BP 145/67
[2019-06-03] MEDS: MEROPENEM 500 MG/SWFI 10 ML IV PUSH IV SCH ×4 (01:48→09:41)
[2019-06-03] MEDS: RT-ALBUTEROL/IPRATROPIUM 3 ML (DUONEB) VIAL INH PRN (03:20)
[2019-06-03 04:00] VITALS: BP 134/64
[2019-06-03] MEDS: LACTOBACILLUS ACIDOPHILUS (PROBIOTIC) CAPSULE PO SCH ×3 (06:25→12:21)
[2019-06-03] MEDS: inSUlin ASPART (NovoLOG) 1 UNIT/0.01 ML (CHARGE PER UNIT) SC SCH ×2 (06:35→12:21)
[2019-06-03] MEDS: RT-ALBUTEROL/IPRATROPIUM 3 ML (DUONEB) VIAL INH SCH ×2 (08:20→11:03)
[2019-06-03] MEDS ORDERED: RT-ADVAIR HFA 115/21 MCG PER PUFF IH ONE (08:33)
[2019-06-03] MEDS: ADVAIR HFA 115/21 MCG INHALER 8 GM IH SCH (08:35)
[2019-06-03] MEDS: BENZONATATE 100 MG (TESSALON) CAPSULE PO SCH (09:00)
[2019-06-03 09:18] VITALS: BP 135/69
--- NOTE | 2019-06-03 09:34 | Pulmonary Progress Note ---
Sepsis Event Evaluation Height, Weight, BMI Height: 5'4.00" Weight: 232lbs. 0.0oz. 105.687095ak; 36.19 BMI Method:Stated Exam Exam Vital Signs Date Time Temp Pulse Resp B/P (MAP) Pulse Ox O2 Delivery O2 Flow Rate FiO2 06/03/19 09:18 36.0 71 22 135/69 (91) 94 Nasal Cannula 1.50 06/03/19 08:38 93 Nasal Cannula 1.50 06/03/19 08:35 93 Nasal Cannula 1.50 06/03/19 07:00 68 06/03/19 04:00 36.8 56 20 134/64 (87) 94 Nasal Cannula 1.50 06/03/19 03:20 97 Nasal Cannula 2.00 06/03/19 01:00 60 06/03/19 00:40 36.3 58 21 145/67 (93) 94 Nasal Cannula 1.50 06/02/19 22:13 94 Nasal Cannula 2.00 06/02/19 20:59 36.6 72 20 142/69 (93) 95 Nasal Cannula 1.50 06/02/19 20:26 36.0 67 91 21 06/02/19 20:00 Nasal Cannula 2.00 06/02/19 19:08 67 06/02/19 18:50 Room Air 06/02/19 16:45 36.0 61 20 129/63 (85) 91 Nasal Cannula 1.50 06/02/19 14:10 96 Nasal Cannula 2.00 06/02/19 13:02 58 06/02/19 12:00 35.2 69 18 156/71 (99) 94 Room Air 06/02/19 10:51 93 Nasal Cannula 2.00 06/02/19 10:45 91 Nasal Cannula 2.00 I & O 06/03/19 07:00 Intake Total 2590 ml Output Total 2950 ml Balance -360 ml Height & Weight Height: 5'4.00" Weight: 232lbs. 0.0oz. 105.700456ge; 36.19 BMI Method:Stated General Appearance: No Apparent Distress, WD/WN HEENT: PERRL/EOMI, Pharynx Normal Neck: Normal Inspection, Supple Respiratory: Lungs Clear, No Respiratory Distress Cardiovascular: Regular Rate, Rhythm, No Murmur Capillary Refill: Less Than 3 Seconds Gastrointestinal: soft Extremity: Normal Inspection, Non Tender, No Pedal Edema Neurologic/Psychiatric: Alert, Oriented x3 Skin: Normal Color, Warm/Dry Results Lab Laboratory Tests 06/02/19 07:40 Assessment/Plan Assessment/Plan Acute bronchitis - improving -Advair and continue Duoneb Q 4 UTI with ESBL -Currently on Merrem NEETA ROBERTS DO Jun 03, 2019 09:34
[2019-06-03] MEDS: OXYBUTYNIN (DITROPAN) 5 MG TAB PO SCH (09:42)
[2019-06-03] MEDS: PRAMIPEXOLE 0.5 MG TAB (MIRAPEX) PO SCH ×2 (09:42→15:27)
[2019-06-03] MEDS: HYDROCHLOROTHIAZIDE 25 MG (HCTZ) TAB PO SCH (09:42)
[2019-06-03] MEDS: LINAGLIPTIN (TRADJENTA) 5 MG TABLET PO SCH (09:42)
[2019-06-03] MEDS: DICLOFENAC 1% GEL 100 GM (VOLTAREN) TUBE TOP SCH ×2 (09:43→12:00)
[2019-06-03] MEDS: POLYETHYLENE GLYCOL 17 GM (MIRALAX) PACK PO SCH (09:44)
[2019-06-03] MEDS ORDERED: BENZ100C18 PO (09:53)
[2019-06-03] MEDS ORDERED: Promethazine/Codeine PO (09:53)
[2019-06-03] MEDS ORDERED: FLUT12AE4 IH (09:53)
[2019-06-03] MEDS ORDERED: RT-ALBUINH INH (09:53)
--- NOTE | 2019-06-03 09:56 | Discharge Inst-Simple/Standard ---
Discharge Inst-Standard Reconcile Patient Problems Problems Reviewed?: Yes Discharge Medications New, Converted or Re-Newed RX: Transmitted to Pharmacy Patient Instructions/Follow Up Plan of Care/Instructions/FU: Please continue to take your medications as written. Please follow up with your PCP in the enxt week and with Dr Rudolph in 2 weeks. Activity as Tolerated: Yes Discharge Diet: ADA Diet Return to The Hospital For: Shortness of breath, chest pain, fever, confusion, weakness, if you feel you are getting worse. Planned Outpatient Orders/Ref. Pneu Vac Indicated: Yes HONORIO HAMPTON MD Jun 03, 2019 09:56
[2019-06-03] MEDS: GABAPENTIN 600 MG (NEURONTIN) TAB PO SCH ×2 (10:01→15:27)
[2019-06-03] MEDS: FERROUS SULF 325 MG (IRON) TAB PO SCH (10:02)
[2019-06-03] MEDS: CELECOXIB 100 MG (CeleBREX) CAP PO SCH (10:02)
--- NOTE | 2019-06-03 11:05 | NUR ---
Received call to talk with pt about DM management. Pt had concerns about food choices within her current diet order (CHO 45g/m 0snack). Discussed CHO choices and differing amounts of CHO in various foods that her and her consumed. Directed pt to various websites of restaurants they frequent to plan meals before arriving. Discussed role of fiber in CHO metabolism and DM management. Pt asked questions regarding specific meals she frequently consumes, such as Taco Friday at a local restaurant. Discussed meal choices and provided suggestions to keeping with a consistent CHO diet. Discussed consumption of milk. Pt demonstrated understanding of the previous topics and appeared confident to apply education information. Melissa Catalan MS, RD, LD [phone]
[2019-06-03 12:00] VITALS: BP 120/58
[2019-06-03] MEDS: ASCORBIC ACID (VIT C) 500 MG TABLET PO SCH (12:21)
--- NOTE | 2019-06-03 14:57 | NUR ---
patient was placed on room air for 10 min. sat dropped to 87% so placed back on oxygen at 2 l/m after 3 min back on oxygen sat returned to 94%. patient was then walked on oxygen at 3 l/m with oxygen sat remaining above 90% Addendum: 06/03/19 at 1500 by KYAW TIRADO RT Amended: Links added.
--- NOTE | 2019-06-03 15:17 | Discharge Summary ---
Diagnosis/Chief Complaint Date of Admission May 29, 2019 at 21:15 Date of Discharge Discharge Date: Jun 03, 2019 Admission Diagnosis Sepsis due to urinary tract infection Primary Care Sebas Mullen DO Discharge Diagnosis (1) ESBL (extended spectrum beta-lactamase) producing bacteria infection Status: Acute (2) UTI (urinary tract infection) Status: Acute (3) Viral upper respiratory infection Status: Acute (4) Hypoxia Status: Acute (5) Acute kidney injury Status: Acute (6) Steroid-induced hyperglycemia Status: Acute Discharge Summary Discharge Physical Exam Allergies: Coded Allergies: No Known Drug Allergies (Unverified , 02/11/14) Vitals & I&Os Vital Signs Date Time Temp Pulse Resp B/P (MAP) Pulse Ox O2 Delivery O2 Flow Rate FiO2 06/03/19 14:46 93 1.50 06/03/19 12:17 61 06/03/19 12:00 36.2 17 120/58 (78) Nasal Cannula 06/02/19 20:26 21 Hospital Course Labs (last 24 hrs) Laboratory Tests 06/02/19 16:47: Glucometer 210H 06/02/19 21:14: Glucometer 158H 06/03/19 06:35: Glucometer 160H 06/03/19 11:27: Glucometer 294H Microbiology 05/29/19 Blood Culture - Preliminary, Resulted No growth 05/29/19 Influenza Types A,B Antigen (ADAMARIS) - Final, Complete 05/29/19 Urine Culture - Final, Complete Escherichia coli Patient resulted labs reviewed. Pending Labs Laboratory Tests 06/03/19 11:27: Glucometer 294 Imaging: Reviewed Imaging Report Discharge Home Medications: Active Scripts Active Proventil Hfa (Albuterol Sulfate) 6.7 Gm Hfa.aer.ad 2 Puff INH Q6H [Promethazine/Codeine] 5 ML Syrp 5 Ml PO Q8HR PRN Tessalon Perles (Benzonatate) 100 Mg Capsule 200 Mg PO TID Advair Hfa 115-21 Mcg Inhaler (Fluticasone/Salmeterol) 12 Gm Hfa.aer.ad 0 Puff IH BID@08,20 Reported Diazepam 5 Mg Tablet 5 Mg PO TID PRN Iron (Ferrous Sulfate) 325 Mg Tablet 325 Mg PO DAILY Oxycodone-Acetaminophen 10-325 (Oxycodone HCl/Acetaminophen) 1 Each Tablet 1 Tab PO TID PRN Trazodone HCl 100 Mg Tablet 100 Mg PO HS Pantoprazole Sodium 40 Mg Tablet.dr 40 Mg PO DAILY PRN Probiotic (Lactobacillus Combo No.10) 1 Each Capsule 1 Cap PO HS Colace (Docusate Sodium) 100 Mg Capsule 100 Mg PO DAILY PRN Vitamin C (Ascorbate Calcium) 500 Mg Tablet 500 Mg PO TID Citalopram HBr (Citalopram Hydrobromide) 20 Mg Tablet 20 Mg PO HS Oxybutynin Chloride ER (Oxybutynin Chloride) 10 Mg Tab.er.24 10 Mg PO DAILY Pramipexole Dihydrochloride (Pramipexole Di-HCl) 0.5 Mg Tablet 1 Mg PO TID TAKES 2 (0.5MG) TABLETS Hydrochlorothiazide 25 Mg Tablet 25 Mg PO DAILY Celecoxib 200 Mg Capsule 200 Mg PO BID Diclofenac Sodium 100 Gm Gel..gram. TOP BID PRN Januvia (Sitagliptin Phosphate) 100 Mg Tablet 100 Mg PO DAILY Gabapentin 600 Mg Tablet 1,800 Mg PO TID TAKES 3 (600MG) TABLETS Miralax (Polyethylene Glycol 3350) 119 Gm Powder 17 Gm PO DAILY Simvastatin 40 Mg Tablet 40 Mg PO HS Instructions to patient/family Please see electronic discharge instructions given to patient. Clinical Quality Measures DVT/VTE Risk/Contraindication: Risk Factor Score Per Nursin RFS Level Per Nursing on Admit: 4+=Very High Problem Qualifiers (1) UTI (urinary tract infection): Urinary tract infection type: acute cystitis Hematuria presence: without sarahi turia Qualified Codes: N30.00 - Acute cystitis without hematuria HONORIO HAMPTON MD Jun 03, 2019 15:17
--- NOTE | 2019-06-03 15:25 | NUR ---
CM/SS patient is discharging this day and has a new need for oxygen. Spoke with patient and she would like to use [facility]. Information sent to DME and they will provide portable oxygen this day.
[2019-06-03 16:21] VITALS: BP 126/59
[2019-06-03 17:00] VITALS: BP 126/59
== END 2019-06-03 17:30 | disposition home or self-care (01) | DRG 872 ==
LOC: EDUNIT# 18:11 → ER 18:12 → 4TH 21:15
PROVIDERS: ADMIT Internal Medicine; ATTEND Internal Medicine
DX: A41.51 Sepsis due to Escherichia coli [E. coli] (principal); N30.00 Acute cystitis without hematuria; N17.9 Acute kidney failure, unspecified; J06.9 Acute upper respiratory infection, unspecified; J20.9 Acute bronchitis, unspecified; J81.1 Chronic pulmonary edema; J45.909 Unspecified asthma, uncomplicated; E11.65 Type 2 diabetes mellitus with hyperglycemia; T38.0X5A Adverse effect of glucocorticoids and synthetic analogues, initial encounter; G89.29 Other chronic pain; M79.604 Pain in right leg; E66.9 Obesity, unspecified; I10 Essential (primary) hypertension; M54.9 Dorsalgia, unspecified; M19.91 Primary osteoarthritis, unspecified site; N32.81 Overactive bladder; G25.81 Restless legs syndrome; E78.00 Pure hypercholesterolemia, unspecified; E89.0 Postprocedural hypothyroidism; G47.30 Sleep apnea, unspecified; F41.9 Anxiety disorder, unspecified; F32.9 Major depressive disorder, single episode, unspecified; Z79.891 Long term (current) use of opiate analgesic; Z68.36 Body mass index [BMI] 36.0-36.9, adult; Z96.651 Presence of right artificial knee joint; Z16.12 Extended spectrum beta lactamase (ESBL) resistance
CPT/HCPCS: 36415; 71045; 71046; 80048; 80053; 81000; 82962; 83605; 83735; 83880; 84100; 85007; 85025; 85027; 85610; 85730; 87040; 87077; 87088; 87186; 87804; 93005; 93041; 94640; 94760; 94761; 96374; 96375

== ENCOUNTER → 2019-07-07 | Outpatient (CLI) | payer MEDICARE, OTHER ==
[~2019-07-07] MED LIST changes: +ASCO500C15 PO; +AZIT500T PO; +BENZ100C18 PO; +CEFD300C3 PO; +DIAZ5TAB3 PO; +FERR-84 PO; +FLUT12AE4 IH; +GUAI1TBM19 PO; +IPRA3AMP31 IH; +METH4TAB PO; +Promethazine/Codeine PO; +RT-ALBUINH INH; +TRAZ-190 PO
--- NOTE | 2019-07-07 13:03 | Diagnostic Imaging Report ---
PROCEDURE: US Thyroid. TECHNIQUE: Multiple real-time grayscale images were obtained of the thyroid in various projections. INDICATION: Colloid cyst. FINDINGS: The left lobe of the thyroid is surgically absent. Right lobe measures 3.7 x 1.8 x 1.7 cm. Isthmus is 6 mm in thickness. Hypoechoic nodule in the upper pole of the right lobe is noted measuring approximately 7 mm in diameter. Small colloid cyst is also seen measuring approximately 6 mm. No dominant thyroid mass is detected. IMPRESSION: Status post left thyroidectomy. Small nodules in the right lobe are noted. No dominant thyroid mass is detected. Dictated by: Dictated on workstation # [id number]
== END ==
LOC: RAD 11:10
PROVIDERS: ATTEND Family Medicine
DX: E04.2 Nontoxic multinodular goiter (principal); Z90.89 Acquired absence of other organs
CPT/HCPCS: 76536

== ENCOUNTER 2019-07-28 13:39 | Emergency (ER) | payer MEDICARE, OTHER ==
[~2019-07-28] VITALS: Ht 167 cm; Wt 105.0 kg
[~2019-07-28 13:39] MED LIST changes: -DIAZ5TAB3 PO; +DIAZ5TAB49 PO; -OXYB10TA PO; +OXYB10TA2 PO; +SIMV40TA25 PO; -TRAZ-222 PO; +TRZ50T PO
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
[2019-07-28 14:26] LABS: BASOPHILS % (AUTO) 0 % (0-10); EOSINOPHILS # (AUTO) 0.2 10^3/uL (0.0-0.3); EOSINOPHILS % (AUTO) 2 % (0-10); HEMATOCRIT 41 % (35-52); HEMOGLOBIN 13.6 G/DL (11.5-16.0); LYMPHOCYTES # (AUTO) 2.1 X 10^3 (1.0-4.0); LYMPHOCYTES % (AUTO) 23 % (12-44); MEAN CORPUSCULAR HEMOGLOBIN 28 PG (25-34); MEAN CORPUSCULAR HGB CONC 33 G/DL (32-36); MEAN CORPUSCULAR VOLUME 86 FL (80-99); MEAN PLATELET VOLUME 10.5 FL (7.4-10.4); MONOCYTES # (AUTO) 0.5 X 10^3 (0.0-1.0); MONOCYTES % (AUTO) 6 % (0-12); NEUTROPHILS # (AUTO) 6.4 X 10^3 (1.8-7.8); NEUTROPHILS % (AUTO) 69 % (42-75); PLATELET COUNT 193 10^3/uL (130-400); RED CELL DISTRIBUTION WIDTH 15.1 % (10.0-14.5); WHITE BLOOD COUNT 9.3 10^3/uL (4.3-11.0)
[2019-07-28 14:52] LABS: BUN/CREATININE RATIO 20; CALCIUM 9.8 MG/DL (8.5-10.1); CARBON DIOXIDE 21 MMOL/L (21-32); CHLORIDE 108 MMOL/L (98-107); CREATININE SERUM 0.83 MG/DL (0.60-1.30); GFR ESTIMATED > 60; GLUCOSE 155 MG/DL (70-105); POTASSIUM 4.3 MMOL/L (3.6-5.0); SODIUM 140 MMOL/L (135-145)
[2019-07-28 16:23] VITALS: BP 148/67
--- NOTE | 2019-07-28 16:29 | Diagnostic Imaging Report ---
INDICATION: Bilateral leg pain. Bilateral lower extremity venous Doppler study was performed in the routine fashion with color flow Doppler and waveform analysis. FINDINGS: The common femoral veins, superficial femoral veins, popliteal veins and visualized portion of the tibial veins show normal compressibility and venous flow patterns. There is normal augmentation. IMPRESSION: No evidence of deep vein thrombosis in the major veins of both legs. Dictated by: Dictated on workstation # [id number]
== END 2019-07-28 16:24 | disposition home or self-care (01) ==
LOC: EDUNIT# 13:39 → ER 13:41
DX: M25.562 Pain in left knee (principal); M25.561 Pain in right knee; J45.909 Unspecified asthma, uncomplicated; E11.9 Type 2 diabetes mellitus without complications; F41.9 Anxiety disorder, unspecified; F32.9 Major depressive disorder, single episode, unspecified; E78.00 Pure hypercholesterolemia, unspecified; G47.30 Sleep apnea, unspecified; Z99.89 Dependence on other enabling machines and devices; Z87.828 Personal history of other (healed) physical injury and trauma; Z96.651 Presence of right artificial knee joint; Z79.51 Long term (current) use of inhaled steroids; Z79.84 Long term (current) use of oral hypoglycemic drugs; Z80.0 Family history of malignant neoplasm of digestive organs; Z82.49 Family history of ischemic heart disease and other diseases of the circulatory system
CPT/HCPCS: 36415; 80048; 85025; 85379; 93970

== ENCOUNTER 2019-08-03 12:57 | Outpatient (RCR) | payer MEDICARE, OTHER ==
[~2019-08-03] VITALS: Ht 167.7 cm; Wt 115.0 kg
[~2019-08-03 12:57] MED LIST changes: +ACHYD1T PO; -DIAZ5TAB3 PO; +DIAZ5TAB49 PO; -HYDR-3820 PO; -OXYB10TA PO; +OXYB10TA29 PO; +SIMV40TA25 PO; -TRAZ-190 PO; -TRAZ-222 PO; +TRAZ-227 PO; +TRZ50T PO
[2019-09-02] MEDS ORDERED: ACHYD1T PO (13:45)
[2019-09-02] MEDS ORDERED: HYDR-34 PO (14:58)
== END 2019-11-01 | disposition home or self-care (01) ==
LOC: DSME 12:57
PROVIDERS: ATTEND Family Medicine
DX: E11.9 Type 2 diabetes mellitus without complications (principal); I10 Essential (primary) hypertension

== ENCOUNTER → 2019-08-03 | Outpatient (CLI) | payer MEDICARE, OTHER ==
[~2019-08-03] MED LIST changes: +DIAZ5TAB3 PO; -DIAZ5TAB49 PO; +OXYB10TA PO; -OXYB10TA2 PO; -SIMV40TA25 PO; +TRAZ-222 PO; -TRZ50T PO
--- NOTE | 2019-08-03 12:51 | Diagnostic Imaging Report ---
INDICATION: Bilateral knee pain. COMPARISON: 03/28/2019 FINDINGS: Left knee: Multiple radiographic views of the left knee were obtained. There is no evidence of acute fracture or dislocation. Osseous structures are intact. Joint spaces are maintained. There is suggestion of loose intra-articular body within the posterior knee joint to the lateral of midline. It measures approximately 4 x 10 mm in size. There is also tricompartmental osteoarthritis consisting of joint space narrowing with osteophyte formations. There is no large joint effusion. No unexpected radiopaque foreign bodies are seen. Right knee: Three views of the right knee were also obtained. Expected postoperative changes are seen from previous right knee total arthroplasty. Femoral and tibial components appear well-seated. There is no evidence of periprosthetic fracture. No unexpected radiopaque foreign bodies are identified. IMPRESSION: 1. No acute fracture or dislocation in the left knee. 2. Moderate tricompartmental osteoarthritis of the left knee with probable loose intra-articular body. 3. Expected postsurgical changes from previous right knee total arthroplasty, as described above. No unexpected radiopaque foreign bodies. Dictated by: Dictated on workstation # [id number]
== END ==
LOC: RAD 10:40
PROVIDERS: ATTEND Pediatrics
DX: M17.12 Unilateral primary osteoarthritis, left knee (principal); M25.561 Pain in right knee

== ENCOUNTER → 2019-08-26 | Outpatient (CLI) | payer MEDICARE, OTHER ==
[~2019-08-26] MED LIST changes: -ACHYD1T PO; +DIAZ5TAB3 PO; -DIAZ5TAB49 PO; +GADOBUTROL 10 MMOL/10 ML (GADAVIST) VIAL IV ONE; +HYDR-3820 PO; +OXYB10TA PO; -OXYB10TA29 PO; -SIMV40TA25 PO; +TRAZ-190 PO; +TRAZ-222 PO; -TRAZ-227 PO; -TRZ50T PO
[2019-08-26 09:10] LABS: BUN/CREATININE RATIO 24; CREATININE SERUM 0.88 MG/DL (0.60-1.30); GFR ESTIMATED > 60
--- NOTE | 2019-08-26 10:10 | Diagnostic Imaging Report ---
PROCEDURE: MR imaging of the brain with and without contrast. TECHNIQUE: Multiplanar, multisequence MR imaging of the brain was performed with and without contrast. INDICATION: Chiari malformation status post surgery in 2003. COMPARISON: No prior studies are available for comparison. FINDINGS: Postsurgical changes of occipital craniectomy are noted. Ventricular size and sulcal pattern are appropriate for the patient's age. Mild periventricular white matter changes are noted, perhaps owing to chronic microvascular ischemia. No diffusion restriction is identified to suggest acute ischemia. The normal expected flow-voids within the carotid siphons are seen. No acute intra-axial or extra-axial hemorrhage is detected. No abnormal enhancement is identified following contrast administration. Corpus callosum is unremarkable. The sella and parasellar structures are unremarkable. IMPRESSION: Postsurgical changes of occipital craniectomy for Chiari malformation. No acute feature is identified. Dictated by: Dictated on workstation # [id number]
== END ==
LOC: RAD 08:33
PROVIDERS: ATTEND Internal Medicine
DX: Z01.812 Encounter for preprocedural laboratory examination (principal); R41.3 Other amnesia; R47.1 Dysarthria and anarthria; Z87.798 Personal history of other (corrected) congenital malformations
CPT/HCPCS: 36415; 70553; 82565; 84520

== ENCOUNTER 2019-09-01 14:45 | Outpatient (CLI) | payer MEDICARE, OTHER ==
[~2019-09-01] VITALS: Ht 167.7 cm; Wt 105.0 kg
[~2019-09-01 14:45] MED LIST changes: -GADOBUTROL 10 MMOL/10 ML (GADAVIST) VIAL IV ONE
[2019-09-02] MEDS ORDERED: HYDR-3820 PO (13:45)
[2019-09-02] MEDS ORDERED: HYDR-34 PO (14:58)
== END 2019-09-01 15:32 | disposition home or self-care (01) ==
LOC: PREOP 14:45
PROVIDERS: ATTEND Surgery
DX: Z01.818 Encounter for other preprocedural examination (principal)

== ENCOUNTER 2019-09-02 13:15 | Day surgery (SDC) | payer MEDICARE, OTHER ==
[2019-09-02] VITALS (8 sets, daily range): BP systolic 131–167; BP diastolic 69–95
[~2019-09-02] VITALS: Ht 167.7 cm; Wt 105.0 kg
[~2019-09-02 13:15] MED LIST changes: -DIAZ5TAB3 PO; +DIAZ5TAB49 PO; -OXYB10TA PO; +OXYB10TA2 PO; +SIMV40TA25 PO; -TRAZ-222 PO; +TRZ50T PO
[2019-09-02] MEDS ORDERED: HEParin (CENTRAL IV FLUSH) 500 UNIT/5 ML SYR ONE ×2 (13:28→13:47)
[2019-09-02] MEDS ORDERED: 0.9% SODIUM CHLORIDE PF INJ 20 ML VIAL ONE (13:28)
[2019-09-02] MEDS ORDERED: BUP/EPI 0.5% 1:200,000 (SENSORCAINE) 30 ML VIAL ONE ×2 (13:28→14:42)
[2019-09-02] MEDS ORDERED: HYDR-3820 PO (13:45)
[2019-09-02] MEDS ORDERED: CATHETER FLUSH 10 ML SYR IV PRN (13:45)
[2019-09-02] MEDS ORDERED: ceFAZolin 2 GM/50 ML NS 50 ML IV ONE (13:45)
[2019-09-02] MEDS ORDERED: LACTATED RINGERS 1,000 ML IV PRN (13:47)
[2019-09-02] MEDS ORDERED: KETAMINE/NaCl 50 MG/5 ML SYRINGE (ED ONLY) ONE (13:53)
[2019-09-02] MEDS ORDERED: MIDAZOLAM 2 MG/2 ML (VERSED) VIAL ONE ×2 (13:53→14:17)
[2019-09-02] MEDS ORDERED: LIDOCAINE PF 2% 5 ML (XYLOCAINE) VIAL ONE (13:53)
[2019-09-02] MEDS ORDERED: proPOfol 200 MG/20 ML (DIPRIVAN) VIAL IV ONE ×2 (13:53→14:28)
--- NOTE | 2019-09-02 14:09 | Progress Note-Pre Operative ---
Pre-Operative Progress Note H&P Reviewed The H&P was reviewed, patient examined and no changes noted. Date Seen by Provider: Sep 02, 2019 Time Seen by Provider: 14:00 Date H&P Reviewed: Sep 02, 2019 Time H&P Reviewed: 14:00 Pre-Operative Diagnosis: poor peripheral venous circulation, general debility NELSY BOWSER MD Sep 02, 2019 14:09
[2019-09-02] MEDS ORDERED: oxyCODONE/APAP 5/325MG (PERCOCET 5) TABLET PO PRN (14:15)
[2019-09-02] MEDS ORDERED: ONDANSETRON 4 MG/2 ML (SDV) Z0FRAN IVP PRN (14:15)
[2019-09-02] MEDS ORDERED: morphine INJ 10 MG/ML 1ML (SYR OR VIAL) IVP PRN ×2 (14:15)
[2019-09-02] MEDS ORDERED: ACETAMINOPHEN 325 MG TABLET PO PRN (14:15)
--- NOTE | 2019-09-02 14:57 | Progress Note-Post Operative ---
Post-Operative Progess Note Surgeon (s)/Cartography/Mapping Technician (s) Surgeon NELSY BOWSER MD Cartography/Mapping Technician: melanie mcclure TREAD TUBER MACHINE OPERATOR Pre-Operative Diagnosis poor peripheral venous circulation, general debility Post-Operative Diagnosis same Procedure & Operative Findings Date of Procedure 09/02/19 Procedure Performed/Findings removal and replacement left sc groshong cath under flouroscopy. Anesthesia Type MAC with local Estimated Blood Loss Estimated blood loss (mL): minimal Specimens/Packing Specimens Removed none NELSY BOWSER MD Sep 02, 2019 14:57
[2019-09-02] MEDS ORDERED: HYDR-34 PO (14:58)
--- NOTE | 2019-09-02 14:59 | Discharge Inst-Surgical ---
D/C Lap Instructions-MAGUE New, Converted, or Re-Newed RX: RX on Chart Follow Up PRN Activity as tolerated Regular Diet Symptoms to Report: Fever over 101 degree F, Nausea/Vomiting Infection Signs and Symptoms to report: Increased redness, Foul odor of wound, Increased drainage Bathing instructions: May shower Operative Area Clean/Dry; Keep incision clean/dry If any problems/questions: Contact your physician or go to Emergency Room NELSY BOWSER MD Sep 02, 2019 14:59
--- NOTE | 2019-09-02 15:20 | Anesthesia-General Post-Op ---
MAC Patient Condition Mental Status/LOC: Same as Preop Cardiovascular: Satisfactory Nausea/Vomiting: Absent Respiratory: Satisfactory Pain: Controlled Complications: Absent Post Op Complications Complications None Follow Up Care/Instructions Patient Instructions None needed. Anesthesiology Discharge Order Discharge Order Patient is doing well, no complaints, stable vital signs, no apparent adverse anesthesia problems. No complications reported per nursing. TREVOR GONZALEZ CRNA Sep 02, 2019 15:20
[2019-09-02] MEDS ORDERED: oxyCODONE/APAP 5/325MG (PERCOCET 5) TABLET ONE (15:37)
--- NOTE | 2019-09-02 15:44 | Diagnostic Imaging Report ---
INDICATION: Port placement. TIME OF EXAM: 3:30 PM FINDINGS: Left subclavian port has tip overlying the SVC right atrial junction. There appears to be old port fragment within at least the left innominate vein and SVC. The distal tip is not well seen on this study. IMPRESSION: Left chest wall port placement, as described. No pneumothorax is seen. Old port fragment is present, distal tip not well seen on this study. Dictated by: Dictated on workstation # [id number]
--- NOTE | 2019-09-02 18:51 | Diagnostic Imaging Report ---
INDICATION: Fluoroscopy for port removal and replacement. 108 seconds of fluoroscopic time was utilized in the OR during port removal and placement. IMPRESSION: Fluoroscopy for port removal and placement. Dictated by: Dictated on workstation # [id number]
--- NOTE | 2019-09-03 01:06 | OPERATIVE REPORT ---
DATE OF SERVICE: 09/02/2019 ATTENDING PRIMARY CARE PHYSICIAN: Dr. Cardenas. PREOPERATIVE DIAGNOSES: Poor peripheral venous circulation with general debility and multiple medical problems. POSTOPERATIVE DIAGNOSES: Poor peripheral venous circulation with general debility and multiple medical problems. PROCEDURE: Removal of previous port. The catheter was scarred down and left in situ. Placement of a left subclavian Groshong implantable catheter under fluoroscopy. SURGEON: Nelsy Bowser MD. VISITING NURSE: Santos Trejo APRN. ANESTHESIA: Monitored anesthesia care with local. ESTIMATED BLOOD LOSS: Minimal. FINDINGS: Catheter tip at superior vena caval -- right atrial junction. DISPOSITION: The patient tolerated the procedure well. INDICATIONS: The patient is a 69-year-old female with a multitude of medical problems as well as poor peripheral venous circulation. She also does have a history of chronic pain issues as well as opioid dependence and chronic constipation. She has been admitted multiple times and has very poor peripheral venous circulation and required a Groshong implantable catheter placed approximately 5 years ago. The catheter became nonfunctional over time and she still requires frequent central IV access. DESCRIPTION OF PROCEDURE: The patient was brought to the operating room, laid supine on the table. After adequate IV pain and sedative medications and monitored anesthesia care, the chest and neck were prepped and draped in standard surgical fashion. A 1% lidocaine with epinephrine was then used to anesthetize the overlying skin through the left subclavian vein and the left subclavian vein was cannulated with drawing of venous blood. An incision along the previous incision line was made using a 15 blade and the port capsule opened using electrocautery and removed out of the body. The catheter was withdrawn. However, due to significant scarring of the catheter, the catheter broke off under fluoroscopy; however, left in situ underneath the left subclavian region. This had happened before and cardiology as well as thoracic surgery recommended leaving the catheter in situ. At this time, it was decided to proceed to place another Groshong implantable catheter in the same vein. The left subclavian vein was cannulated with drawing of venous blood. Guidewire was then inserted under fluoroscopy. The catheter was then placed. The dilator and sheath were then placed and the guidewire and dilator were then cannulated with drawing of venous blood. The catheter was then advanced until the catheter tip was at the superior vena caval -- right atrial junction. The sheath was then removed. The inner wire within the catheter was then removed and the catheter cut down to size and port placed onto the catheter. The port was then placed into the previous chest reservoir and sutured to the anterior pectoralis fascia using interrupted 3-0 Vicryl sutures. Subcutaneous tissue was then reapproximated using 3-0 Vicryl interrupted sutures and the skin was closed using 4-0 Monocryl running subcuticular suture. Wound was then cleaned and covered with Dermabond. The patient tolerated the procedure well. We will get a post-procedure chest x-ray and once confirmation of placement, the catheter may be accessed and used any time. Job ID: [id number] DocumentID: [id number] Dictated Date: 09/02/2019 15:07:37 Double Bottom Driver Date: 09/03/2019 01:06:26 Dictated By: NELSY BOWSER MD
--- NOTE | 2019-09-03 06:30 | HISTORY AND PHYSICAL ---
DATE OF SERVICE: PROCEDURE DATE: 09/02/2019. ATTENDING PRIMARY CARE PHYSICIAN: Dr. Cardenas. HISTORY: The patient is a 69-year-old female, who is known to us. She was seen by us in 2014 for poor peripheral venous circulation and at that time was requiring IV medical therapy as well as IV fluids. She reports that since that time, her port has started malfunctioning and reports that it will not return any blood and reports that it is difficult to flush and is even painful. She reports that she would like to proceed with a removal and replacement of a new port. PAST MEDICAL HISTORY: Insulin-dependent diabetes, hypercholesterolemia, hypertension, restless leg syndrome, irritable bowel syndrome, Arnold-Chiari malformation, necrotic bowel, chronic abdominal pain, anxiety, depression, insomnia. PAST SURGICAL HISTORY: Decompression of the Arnold-Chiari malformation, laparoscopic cholecystectomy, appendectomy, x3, ventral abdominal hernia repair x3, tonsillectomy, right total knee replacement in 2015 and again in 2019, bilateral cataract surgery in 2007 and again in 2019, lysis of adhesions in 2013, Botox injection into the stomach for acid reflux, Botox injection to the bladder for urinary frequency. ALLERGIES: No known drug allergies. MEDICATIONS: Acyclovir 200 mg daily, citalopram 20 mg daily, diazepam 5 mg q.6 hours p.r.n., diclofenac sodium 1% gel q.i.d., gabapentin 600 mg 2 tablets t.i.d., hydrochlorothiazide 25 mg daily, hydrocodone 10/325 mg q.4 hours p.r.n., ipratropium-albuterol nebulizer solution every 4 hours p.r.n. shortness of breath, Protonix 40 mg daily, Pramipexole 0.5 mg 2 tablets t.i.d., simvastatin 40 mg in the evening, Symbicort 160/4.5 mcg 2 puffs b.i.d., tramadol 50 mg 2 tablets q.8 hours p.r.n. pain, trazodone 100 mg at bedtime, Ventolin 90 mcg inhaler 2 puffs q.4 hours p.r.n., zolpidem ER 12.5 mg at bedtime. SOCIAL HISTORY: Negative for smoke. Rare for alcohol. FAMILY HISTORY: Mother, hypertension. Father, diabetes, pancreatic cancer at 65 years of age. Sister, stroke at 36 years of age. VITAL SIGNS: Blood pressure is 140/60. Current weight is 232.0, 5 feet 6 inches. REVIEW OF SYSTEMS: Well-nourished female, in no acute distress. She is not experiencing any shortness of breath or difficulty breathing. No chest pain, palpitations or diaphoresis. No nausea, vomiting or abdominal pain. No diarrhea or constipation. No red blood per rectum. No dark tarry stools. No fever or chills. No recent inadvertent weight loss. All other review of systems negative. PHYSICAL EXAMINATION: CHEST: Clear. Good breath sounds bilaterally. HEART: Regular, no murmurs. EXTREMITIES: No lower extremity edema. Negative Homans sign. HEENT: No scleral icterus. NECK: No cervical lymphadenopathy. ABDOMEN: Soft, nontender, nondistended. SKIN: Warm, dry and pink. There is a well-healed incision of the left upper chest with a palpable Groshong port beneath the skin. There is no redness, erythema or any signs of infection. NEUROLOGIC: Awake, alert and oriented x3. ASSESSMENT AND PLAN: A 69-year-old female with poor peripheral venous circulation who does require frequent blood draws. At this time, she does have a malfunctioning port and we will recommend proceeding with removal and replacement of the Groshong port. The risks and benefits of the procedure as well as the procedure and home care instructions were explained to the patient. The patient verbalized understanding of instructions and agrees to proceed as planned. At this time, we will proceed with scheduling the patient for the removal and replacement of the Groshong port. Job ID: [id number] DocumentID: [id number] Dictated Date: 09/01/2019 17:20:06 [employer] Gard[employer] Teacher Date: 09/01/2019 18:59:04 Dictated By: RANDY RESENDIZ APRN
== END 2019-09-02 16:25 | disposition home or self-care (01) ==
LOC: SDC 13:15
PROVIDERS: ATTEND Surgery
DX: T85.618A Breakdown (mechanical) of other specified internal prosthetic devices, implants and grafts, initial encounter (principal); I87.2 Venous insufficiency (chronic) (peripheral); R53.81 Other malaise; E11.9 Type 2 diabetes mellitus without complications; E78.00 Pure hypercholesterolemia, unspecified; I10 Essential (primary) hypertension; K58.9 Irritable bowel syndrome, unspecified; G25.81 Restless legs syndrome; Q07.00 Arnold-Chiari syndrome without spina bifida or hydrocephalus; G47.00 Insomnia, unspecified; F41.9 Anxiety disorder, unspecified; F32.9 Major depressive disorder, single episode, unspecified; Z79.891 Long term (current) use of opiate analgesic; Z79.4 Long term (current) use of insulin; Z90.49 Acquired absence of other specified parts of digestive tract; Z90.89 Acquired absence of other organs; Z96.651 Presence of right artificial knee joint; Z79.899 Other long term (current) drug therapy; Z82.49 Family history of ischemic heart disease and other diseases of the circulatory system; Z83.3 Family history of diabetes mellitus; Z82.3 Family history of stroke; Z80.0 Family history of malignant neoplasm of digestive organs
CPT/HCPCS: 71045; 82962; 87081

== ENCOUNTER 2019-10-01 18:53 | Emergency (ER) | payer MEDICARE, OTHER ==
[~2019-10-01] VITALS: Ht 160 cm; Wt 107.0 kg
[2019-10-01 20:12] VITALS: BP 138/55
[2019-10-01] MEDS ORDERED: NS IV 1000 ML 1,000 ML IV SCH (20:28)
[2019-10-01] MEDS ORDERED: KETOROLAC 30 MG/ML VIAL IVP ONE (20:30)
--- NOTE | 2019-10-01 20:32 | ED General ---
General Chief Complaint: Glucose Problems Stated Complaint: HIGH BLOOD SUGAR Nursing Triage Note: patient states finger stick blood sugar 300. shortness of breath. Nursing Sepsis Screen: No Definite Risk Source of Information: Patient Exam Limitations: No Limitations History of Present Illness Date Seen by Provider: Oct 01, 2019 Time Seen by Provider: 20:20 Initial Comments Patient arrives by private conveyance from home with her spouse and chief complaint that she's felt increased frequency of urination, elevated blood sugar and a headache as well as generalized neck myalgias and body aches. No fevers or chills. She said she had a flu shot yesterday as well as was started on some steroids for chronic back and knee pain. 2 days ago she had epidural injections in her back. She is hyperglycemic with 308 at home before coming to the ER. She does not take insulin but does take one oral anti-hyperglycemic daily. She denies dysuria fevers or chills or cough. She's been on steroids for one day now. She says last time she went on steroids she became hyperglycemic and had to be in the hospital on an insulin drip. She follows with Dr. Campos. She denies any nausea vomiting, syncope, chest pain or abdominal pain. Allergies and Home Medications Allergies Coded Allergies: No Known Drug Allergies (Unverified , 02/11/14) Home Medications Ascorbate Calcium 500 Mg Tablet, 500 MG PO TID, (Reported) Celecoxib 200 Mg Capsule, 200 MG PO BID, (Reported) Citalopram Hydrobromide 20 Mg Tablet, 20 MG PO HS, (Reported) Diazepam 5 Mg Tablet, 5 MG PO TID PRN for ANXIETY, (Reported) Diclofenac Sodium 100 Gm Gel..gram., TOP BID PRN for LEG PAIN, (Reported) Docusate Sodium 100 Mg Capsule, 100 MG PO DAILY PRN for CONSTIPATION-1ST LINE, (Reported) Ferrous Sulfate 325 Mg Tablet, 325 MG PO DAILY, (Reported) Gabapentin 600 Mg Tablet, 1,800 MG PO TID, (Reported) TAKES 3 (600MG) TABLETS Hydrochlorothiazide 25 Mg Tablet, 25 MG PO DAILY, (Reported) Hydrocodone Bit/Acetaminophen 1 Ea Tablet, 1 EACH PO Q4H PRN for PAIN-MODERATE Prescribed by: NELSY BOWSER on 09/02/19 4268 Hydrocodone/Acetaminophen 1 Each Tablet, 1 TAB PO Q8H PRN for PAIN-MODERATE, (Reported) Lactobacillus Combo No.10 1 Each Capsule, 1 CAP PO HS, (Reported) Oxybutynin Chloride 10 Mg Tab.er.24, 10 MG PO DAILY, (Reported) Pantoprazole Sodium 40 Mg Tablet.dr, 40 MG PO DAILY PRN for HEARTBURN, (Reported) Polyethylene Glycol 3350 119 Gm Powder, 17 GM PO DAILY, (Reported) Pramipexole Di-HCl 0.5 Mg Tablet, 1 MG PO TID, (Reported) TAKES 2 (0.5MG) TABLETS Simvastatin 40 Mg Tablet, 40 MG PO HS, (Reported) Sitagliptin Phosphate 100 Mg Tablet, 100 MG PO DAILY, (Reported) Trazodone HCl 100 Mg Tablet, 100 MG PO HS, (Reported) Patient Home Medication List Home Medication List Reviewed: Yes Review of Systems Review of Systems Constitutional: No chills, No fever; malaise EENTM: No hearing loss, No ear pain Respiratory: No cough, No short of breath Cardiovascular: No chest pain, No edema Gastrointestinal: No abdominal pain, No constipation, No diarrhea, No nausea, No vomiting Genitourinary: see HPI; No dysuria; frequency Musculoskeletal: No back pain, No joint pain Skin: No pruritus, No rash Psychiatric/Neurological: Denies Headache, Denies Numbness Past Cxywecu-Bzrkai-Ipyuox Hx Patient Social History Alcohol Use: Denies Use Recreational Drug Use: No Smoking Status: Never a Smoker 2nd Hand Smoke Exposure: No Recent Foreign Travel: No Contact w/Someone Who Travel: No Recent Infectious Disease Expo: No Recent Hopitalizations: No Physical Abuse: No Sexual Abuse: No Mistreated: No Fear: No Immunizations Up To Date Tetanus Booster (TDap): More than 5yrs Date of Pneumonia Vaccine: Oct 04, 2011 Date of Influenza Vaccine: Jun 25, 2019 Seasonal Allergies Seasonal Allergies: No Past Medical History Surgeries: Yes (R knee replaced x2, port, c/s x3, hernia x5, rotator cuff, ) Abdominal, Appendectomy, Hysterectomy, Joint Replacement, Neurological, Orthopedic, Thyroidectomy, Tonsillectomy Respiratory: Yes Asthma, Pneumonia, Chronic Bronchitis, Sleep Apnea Currently Using CPAP: Yes Cardiac: Yes High Cholesterol Neurological: Yes (CHIARI MALFORMATION--SURGICAL REPAIR; RESTLESS LEG SYNDROME) Reproductive Disorders: No Female Reproductive Disorders: Denies 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 CHRONIC ABDOMINAL PAIN) Chronic Constipation, Chronic Diarrhea Musculoskeletal: Yes Arthritis, Chronic Back Pain Endocrine: Yes (BENIGN MASS LEFT THYROID REMOVED 01/01/2013) Diabetes, Non-Insulin dep HEENT: Yes Cataract Loss of Vision: Denies Hearing Impairment: Denies Cancer: No Psychosocial: Yes Anxiety, Depression Integumentary: No Blood Disorders: No Adverse Reaction/Blood Tranf: No Family Medical History Cancer 03 FATHER (PANCREATIC, PASSED AT 65 FROM THIS) Cataract 03 MOTHER Dementia 03 MOTHER Family history: Arthritis 03 MOTHER Family history: Cardiovascular disease 03 MOTHER (HIGH CHOLESTEROL, [place] ARTERIES 2 TIMES) Hearing loss 03 MOTHER Hypercholesterolemia 03 MOTHER Cancer Physical Exam Vital Signs Vital Signs - First Documented 10/01/19 19:37 Temp 36.8 Pulse 73 Resp 18 B/P (MAP) 138/72 (94) Pulse Ox 94 O2 Delivery Room Air Capillary Refill : Less Than 3 Seconds Height, Weight, BMI Height: 5'4.00" Weight: 232lbs. 0.0oz. 105.883186el; 41.00 BMI Method:Stated General Appearance: No Apparent Distress, WD/WN, Obese Eyes: Bilateral Eye Normal Inspection, Bilateral Eye PERRL, Bilateral Eye EOMI HEENT: PERRL/EOMI, Pharynx Normal, Moist Mucous Membranes Neck: Full Range of Motion, Normal Inspection Respiratory: No Accessory Muscle Use, No Respiratory Distress Cardiovascular: Regular Rate, Rhythm, Normal Peripheral Pulses Extremity: Normal Capillary Refill, Normal Inspection, No Pedal Edema Neurologic/Psychiatric: Alert, Oriented x3, No Motor/Sensory Deficits Skin: Normal Color, Warm/Dry Progress/Results/Core Measures Suspected Sepsis Recent Fever Within 48 Hours: No Infection Criteria Present: None New/Unexplained Altered Menta: No Sepsis Screen: No Definite Risk SIRS Temperature: Pulse: 79 Respiratory Rate: 18 Laboratory Tests 10/01/19 20:53: White Blood Count 17.3H Blood Pressure 138 /55 Mean: 82 Laboratory Tests 10/01/19 20:53: Creatinine 1.06, Platelet Count 245, Total Bilirubin 0.8 Results/Orders Lab Results Laboratory Tests Test 10/01/19 18:00 10/01/19 19:50 10/01/19 20:53 Range/Units Urine Color YELLOW Urine Clarity CLEAR Urine pH 5.0 5-9 Urine Specific [place] 1.025 H 1.016-1.022 Urine Protein NEGATIVE NEGATIVE Urine Glucose (UA) NEGATIVE NEGATIVE Urine Ketones TRACE H NEGATIVE Urine Nitrite NEGATIVE NEGATIVE Urine Bilirubin NEGATIVE NEGATIVE Urine Urobilinogen 0.2 < = 1.0 MG/DL Urine Leukocyte Esterase NEGATIVE NEGATIVE Urine RBC (Auto) NEGATIVE NEGATIVE Urine RBC RARE /HPF Urine WBC 0-2 /HPF Urine Squamous Epithelial Cells 2-5 /HPF Urine Crystals PRESENT H /LPF Urine Amorphous Sediment FEW TIFFANY URATES H /LPF Urine Bacteria TRACE /HPF Urine Casts NONE /LPF Urine Mucus NEGATIVE /LPF Urine Culture Indicated NO Glucometer 272 H 70-110 MG/DL White Blood Count 17.3 H 4.3-11.0 10^3/uL Red Blood Count 4.81 4.35-5.85 10^6/uL Hemoglobin 13.7 11.5-16.0 G/DL Hematocrit 42 35-52 % Mean Corpuscular Volume 87 80-99 FL Mean Corpuscular Hemoglobin 29 25-34 PG Mean Corpuscular Hemoglobin Concent 33 32-36 G/DL Red Cell Distribution Width 14.6 H 10.0-14.5 % Platelet Count 245 130-400 10^3/uL Mean Platelet Volume 10.6 H 7.4-10.4 FL Neutrophils (%) (Auto) 89 H 42-75 % Lymphocytes (%) (Auto) 9 L 12-44 % Monocytes (%) (Auto) 2 0-12 % Eosinophils (%) (Auto) 0 0-10 % Basophils (%) (Auto) 0 0-10 % Neutrophils # (Auto) 15.4 H 1.8-7.8 X 10^3 Lymphocytes # (Auto) 1.5 1.0-4.0 X 10^3 Monocytes # (Auto) 0.4 0.0-1.0 X 10^3 Eosinophils # (Auto) 0.0 0.0-0.3 10^3/uL Basophils # (Auto) 0.0 0.0-0.1 10^3/uL Sodium Level 138 135-145 MMOL/L Potassium Level 4.2 3.6-5.0 MMOL/L Chloride Level 103 98-107 MMOL/L Carbon Dioxide Level 19 L 21-32 MMOL/L Anion Gap 16 H 5-14 MMOL/L Blood Urea Nitrogen 30 H 7-18 MG/DL Creatinine 1.06 0.60-1.30 MG/DL Estimat Glomerular Filtration Rate 52 BUN/Creatinine Ratio 28 Glucose Level 269 H 70-105 MG/DL Calcium Level 9.8 8.5-10.1 MG/DL Corrected Calcium 9.8 8.5-10.1 MG/DL Total Bilirubin 0.8 0.1-1.0 MG/DL Aspartate Amino Transf (AST/SGOT) 9 5-34 U/L Alanine Aminotransferase (ALT/SGPT) 15 0-55 U/L Alkaline Phosphatase 89 40-136 U/L Total Protein 6.7 6.4-8.2 GM/DL Albumin 4.0 3.2-4.5 GM/DL Micro Results Microbiology 10/01/19 Influenza Types A,B Antigen (ADAMARIS) - Final, Complete My Orders Orders - GABBIE AZUL Influenza A And B Antigens (10/01/19 20:28) Cbc With Automated Diff (10/01/19 20:28) Comprehensive Metabolic Panel (10/01/19 20:28) Ua Culture If Indicated (10/01/19 20:28) Ketorolac Injection (Toradol Injection) (10/01/19 20:30) Ed Iv/Invasive Line Start (10/01/19 20:28) Ns Iv 1000 Ml (Sodium Chloride 0.9%) (10/01/19 20:28) Insulin (Regular) Human (Humulin R (Per (10/01/19 21:00) Ekg Tracing (10/01/19 20:52) Hydrocodone/Apap 5/325 Tablet (Lortab 5 (10/01/19 22:15) Insulin Determir (Per Unit) (Levemir (Pe (10/01/19 22:15) Medications Given in ED Current Medications Medications Dose Ordered Sig/Eloise Route Start Time Stop Time Status Last Admin Dose Admin Insulin Human Regular 5 unit ONCE ONCE SC 10/01/19 21:00 10/01/19 21:01 DC 10/01/19 20:59 5 UNIT Ketorolac Tromethamine 30 mg ONCE ONCE IVP 10/01/19 20:30 10/01/19 20:31 DC 10/01/19 20:56 30 MG Vital Signs/I&O 10/01/19 10/01/19 10/01/19 19:37 20:12 20:56 Temp 36.8 36.8 Pulse 73 79 Resp 18 18 B/P (MAP) 138/72 (94) 138/55 (82) Pulse Ox 94 93 O2 Delivery Room Air Room Air Capillary Refill : Less Than 3 Seconds Blood Pressure Mean: 82 Point of Care Testing Finger Stick Blood Glucose: 272 Blood Glucose Action Taken: RN NOTIFIED Progress Note #1: Time: 20:45 Progress Note I suspect her body aches and general malaise can be from the influenza vaccination however her blood sugar is elevated because of the steroid use. Plan to give her 5 units of insulin, bag of fluids and look for any evidence of HHS. Progress Note #2: Time: 22:03 Progress Note Patient's feeling better but she still has a headache. We'll give her some hydro codone and 10 units of Levemir. We'll let her finish her fluids. She is already tapering her dose of steroids down to 20 mg daily for tomorrow. I suspect her symptoms are all based on side effects to the steroids. We have encouraged her to either reduce the dose or stop them if her symptoms get worse and given her return precautions to come back to the ER or to her primary care doctor. Her blood sugars down to 269 from 308. Suspect it'll continue to improve as she decreased her steroid dose and we give her some Levemir to protect her from becoming hypoglycemic. Her trace ketones should be addressed by the IV fluid bolus. ECG Initial ECG Impression Date: Oct 01, 2019 Initial ECG Impression Time: 19:54 Initial ECG Rate: 68 Initial ECG Rhythm: Normal Sinus Initial ECG Intervals: Normal Initial ECG Impression: Normal Comment Normal sinus rhythm without ST elevation or depression. Departure Impression Primary Impression: Steroid-induced hyperglycemia Additional Impression: Headache Qualified Codes: G44.209 - Tension-type headache, unspecified, not intractable Disposition: 01 HOME, SELF-CARE Condition: Stable Departure-Patient Inst. Referrals: KATHLEEN CABRERA MD (PCP/Family) Primary Care Physician Patient Instructions: Hyperglycemia, Adult (DC) Add. Discharge Instructions: Continue to taper your steroids as prescribed. If your symptoms worsen you may cut them in half again or stop them altogether. The Levemir should protect you over the next day from your blood sugar going up significantly. Follow-up with primary care at your scheduled appointment. If your symptoms or intractable despite Tylenol and ibuprofen for headache then you may return to the ER or your primary doctor. All discharge instructions reviewed with patient and/or family. Voiced understanding. GABBIE AZUL Oct 01, 2019 20:32
[2019-10-01 20:36] LABS: BILIRUBIN,URINE NEGATIVE (NEGATIVE); CLARITY,URINE CLEAR; COLOR,URINE YELLOW; GLUCOSE, URINE (UA) NEGATIVE (NEGATIVE); KETONES,URINE TRACE (NEGATIVE); LEUKOCYTE ESTERASE ,URINE NEGATIVE (NEGATIVE); NITRITE,URINE NEGATIVE (NEGATIVE); PROTEIN,URINE NEGATIVE (NEGATIVE)
[2019-10-01] MEDS ORDERED: inSUlin (REGULAR) HUMAN 1 UNIT/0.01 ML (CHARGE PER UNIT) SC ONE (21:00)
[2019-10-01 21:01] LABS: BASOPHILS % (AUTO) 0 % (0-10); EOSINOPHILS % (AUTO) 0 % (0-10); HEMATOCRIT 42 % (35-52); HEMOGLOBIN 13.7 G/DL (11.5-16.0); LYMPHOCYTES # (AUTO) 1.5 X 10^3 (1.0-4.0); LYMPHOCYTES % (AUTO) 9 % (12-44); MEAN CORPUSCULAR HEMOGLOBIN 29 PG (25-34); MEAN CORPUSCULAR HGB CONC 33 G/DL (32-36); MEAN CORPUSCULAR VOLUME 87 FL (80-99); MEAN PLATELET VOLUME 10.6 FL (7.4-10.4); MONOCYTES # (AUTO) 0.4 X 10^3 (0.0-1.0); MONOCYTES % (AUTO) 2 % (0-12); NEUTROPHILS # (AUTO) 15.4 X 10^3 (1.8-7.8); NEUTROPHILS % (AUTO) 89 % (42-75); PLATELET COUNT 245 10^3/uL (130-400); RED CELL DISTRIBUTION WIDTH 14.6 % (10.0-14.5); WHITE BLOOD COUNT 17.3 10^3/uL (4.3-11.0)
[2019-10-01 21:14] LABS: AMORPHOUS SEDIMENT,UR FEW AMOR URATES /LPF; BACTERIA,URINE TRACE /HPF; RBC,URINE RARE /HPF; WBC,URINE 0-2 /HPF
[2019-10-01 21:21] LABS: BILIRUBIN,TOTAL 0.8 MG/DL (0.1-1.0); CALCIUM 9.8 MG/DL (8.5-10.1); CREATININE SERUM 1.06 MG/DL (0.60-1.30); POTASSIUM 4.2 MMOL/L (3.6-5.0); TOTAL PROTEIN 6.7 GM/DL (6.4-8.2)
[2019-10-01 22:15] VITALS: BP 145/72
[2019-10-01] MEDS ORDERED: HYDROcodone/APAP 5 MG/325 MG (LORTAB) TAB PO ONE (22:15)
== END 2019-10-01 22:16 | disposition home or self-care (01) ==
LOC: EDUNIT# 18:53 → ER 18:54
DX: E09.65 Drug or chemical induced diabetes mellitus with hyperglycemia (principal); E78.00 Pure hypercholesterolemia, unspecified; F41.9 Anxiety disorder, unspecified; F32.9 Major depressive disorder, single episode, unspecified; Z79.84 Long term (current) use of oral hypoglycemic drugs; Z80.0 Family history of malignant neoplasm of digestive organs; Z82.49 Family history of ischemic heart disease and other diseases of the circulatory system
CPT/HCPCS: 36415; 80053; 81000; 82962; 85025; 87804; 93005

== ENCOUNTER → 2019-10-01 | Outpatient (CLI) | payer MEDICARE, OTHER ==
[~2019-10-01] MED LIST changes: +HYDR-34 PO
[2019-10-01 11:34] LABS: BASOPHILS % (AUTO) 0 % (0-10); EOSINOPHILS % (AUTO) 0 % (0-10); HEMATOCRIT 44 % (35-52); HEMOGLOBIN 14.3 G/DL (11.5-16.0); LYMPHOCYTES # (AUTO) 1.4 X 10^3 (1.0-4.0); LYMPHOCYTES % (AUTO) 9 % (12-44); MEAN CORPUSCULAR HEMOGLOBIN 29 PG (25-34); MEAN CORPUSCULAR HGB CONC 33 G/DL (32-36); MEAN CORPUSCULAR VOLUME 88 FL (80-99); MEAN PLATELET VOLUME 10.3 FL (7.4-10.4); MONOCYTES # (AUTO) 0.6 X 10^3 (0.0-1.0); MONOCYTES % (AUTO) 4 % (0-12); NEUTROPHILS # (AUTO) 13.8 X 10^3 (1.8-7.8); NEUTROPHILS % (AUTO) 87 % (42-75); PLATELET COUNT 227 10^3/uL (130-400); RED CELL DISTRIBUTION WIDTH 14.6 % (10.0-14.5); WHITE BLOOD COUNT 15.8 10^3/uL (4.3-11.0)
[2019-10-01 12:02] LABS: ALBUMIN 4.2 GM/DL (3.2-4.5); BILIRUBIN,TOTAL 1.1 MG/DL (0.1-1.0); CALCIUM 10.1 MG/DL (8.5-10.1); CREATININE SERUM 0.95 MG/DL (0.60-1.30); POTASSIUM 4.4 MMOL/L (3.6-5.0); TOTAL PROTEIN 7.1 GM/DL (6.4-8.2)
[2019-10-01 12:04] LABS: BAND NEUTROPHILS 5 %; BASOPHILS % (MANUAL) 0 %; EOSINOPHILS % (MANUAL) 0 %; LYMPHOCYTES % (MANUAL) 9 %; MONOCYTES % (MANUAL) 1 %; NEUTROPHILS % (MANUAL) 85 %; RBC MORPH NORMAL
== END ==
LOC: LAB 10:38
PROVIDERS: ATTEND Nurse Practitioner Family
DX: R53.83 Other fatigue (principal)
CPT/HCPCS: 36415; 80053; 84443; 85007; 85027

== ENCOUNTER 2019-10-02 17:06 | Emergency (ER) | payer MEDICARE, OTHER ==
[~2019-10-02] VITALS: Ht 167 cm; Wt 105.0 kg
[2019-10-02] MEDS ORDERED: NS IV 1000 ML 1,000 ML IV SCH (17:28)
[2019-10-02 17:47] LABS: BASOPHILS % (AUTO) 0 % (0-10); EOSINOPHILS % (AUTO) 0 % (0-10); HEMATOCRIT 42 % (35-52); HEMOGLOBIN 13.6 G/DL (11.5-16.0); LYMPHOCYTES # (AUTO) 1.5 X 10^3 (1.0-4.0); LYMPHOCYTES % (AUTO) 10 % (12-44); MEAN CORPUSCULAR HEMOGLOBIN 29 PG (25-34); MEAN CORPUSCULAR HGB CONC 33 G/DL (32-36); MEAN CORPUSCULAR VOLUME 87 FL (80-99); MEAN PLATELET VOLUME 10.5 FL (7.4-10.4); MONOCYTES # (AUTO) 0.4 X 10^3 (0.0-1.0); MONOCYTES % (AUTO) 2 % (0-12); NEUTROPHILS # (AUTO) 12.8 X 10^3 (1.8-7.8); NEUTROPHILS % (AUTO) 87 % (42-75); PLATELET COUNT 227 10^3/uL (130-400); RED CELL DISTRIBUTION WIDTH 14.7 % (10.0-14.5); WHITE BLOOD COUNT 14.6 10^3/uL (4.3-11.0)
[2019-10-02 18:04] LABS: BAND NEUTROPHILS 2 %; BASOPHILS % (MANUAL) 0 %; EOSINOPHILS % (MANUAL) 0 %; LYMPHOCYTES % (MANUAL) 7 %; MONOCYTES % (MANUAL) 4 %; NEUTROPHILS % (MANUAL) 85 %
[2019-10-02 18:05] LABS: ANISOCYTOSIS SLIGHT; POLYCHROMASIA SLIGHT; REACTIVE LYMPHOCYTES 2 %
[2019-10-02 18:08] LABS: ALBUMIN 3.9 GM/DL (3.2-4.5); BILIRUBIN,TOTAL 0.8 MG/DL (0.1-1.0); CALCIUM 9.8 MG/DL (8.5-10.1); CREATININE SERUM 1.04 MG/DL (0.60-1.30); MAGNESIUM 1.8 MG/DL (1.6-2.4); POTASSIUM 4.8 MMOL/L (3.6-5.0); TOTAL PROTEIN 6.6 GM/DL (6.4-8.2)
[2019-10-02] MEDS ORDERED: KETOROLAC 30 MG/ML VIAL IVP STA (18:25)
--- NOTE | 2019-10-02 18:56 | NUR ---
AMB TO BATHROOM
--- NOTE | 2019-10-02 19:04 | ED General ---
General Chief Complaint: Glucose Problems Stated Complaint: HIGH SUGAR LEVELS Nursing Triage Note: STATES SHE WAS RECENTLY PUT ON STEROIDS WHICH MAKES HER BLOOD SUGARS GO UP. WAS SEEN HERE LAST NIGHT FOR HYPERGLYCEMIA AND STATES IT IS HIGH AGAIN TODAY. PT DOES NOT TAKE INSULIN. Nursing Sepsis Screen: No Definite Risk Source of Information: Patient Exam Limitations: No Limitations History of Present Illness Date Seen by Provider: Oct 02, 2019 Time Seen by Provider: 18:30 Initial Comments Here with report of high blood sugar at home. Noticed it was in the 260s. Recently was started on prednisone for eye irritation. She is on eyedrops as well that her antibiotics as well as antifungal medicine. She was concerned because she did not know how high to high was for her blood sugar. Family was in the 300s just. She did get a small dose of Levaquin there. Today her blood sugar is 230's. She is on oral agents for her blood sugar. Last year she was on steroids and ended up in the hospital because her blood sugars were greater than 500. She is on declining dose of prednisone currently and did have 2 days of 60 mg and now she has started the 3 days of 40 mg tablet and with 2 days of 20 mg. Timing/Duration: 2-3 Days Severity: Moderate Associated Systoms: No Chest Pain, No Fever/Chills, No Nausea/Vomiting, No Shortness of Air, No Weakness Allergies and Home Medications Allergies Coded Allergies: No Known Drug Allergies (Unverified , 02/11/14) Home Medications Ascorbate Calcium 500 Mg Tablet, 500 MG PO TID, (Reported) Celecoxib 200 Mg Capsule, 200 MG PO BID, (Reported) Citalopram Hydrobromide 20 Mg Tablet, 20 MG PO HS, (Reported) Diazepam 5 Mg Tablet, 5 MG PO TID PRN for ANXIETY, (Reported) Diclofenac Sodium 100 Gm Gel..gram., TOP BID PRN for LEG PAIN, (Reported) Docusate Sodium 100 Mg Capsule, 100 MG PO DAILY PRN for CONSTIPATION-1ST LINE, (Reported) Ferrous Sulfate 325 Mg Tablet, 325 MG PO DAILY, (Reported) Gabapentin 600 Mg Tablet, 1,800 MG PO TID, (Reported) TAKES 3 (600MG) TABLETS Hydrochlorothiazide 25 Mg Tablet, 25 MG PO DAILY, (Reported) Hydrocodone Bit/Acetaminophen 1 Ea Tablet, 1 EACH PO Q4H PRN for PAIN-MODERATE Prescribed by: NELSY BOWSER on 09/02/19 1458 Hydrocodone/Acetaminophen 1 Each Tablet, 1 TAB PO Q8H PRN for PAIN-MODERATE, (Reported) Lactobacillus Combo No.10 1 Each Capsule, 1 CAP PO HS, (Reported) Oxybutynin Chloride 10 Mg Tab.er.24, 10 MG PO DAILY, (Reported) Pantoprazole Sodium 40 Mg Tablet.dr, 40 MG PO DAILY PRN for HEARTBURN, (Reported) Polyethylene Glycol 3350 119 Gm Powder, 17 GM PO DAILY, (Reported) Pramipexole Di-HCl 0.5 Mg Tablet, 1 MG PO TID, (Reported) TAKES 2 (0.5MG) TABLETS Simvastatin 40 Mg Tablet, 40 MG PO HS, (Reported) Sitagliptin Phosphate 100 Mg Tablet, 100 MG PO DAILY, (Reported) Trazodone HCl 100 Mg Tablet, 100 MG PO HS, (Reported) Patient Home Medication List Home Medication List Reviewed: Yes Review of Systems Review of Systems Constitutional: see HPI; No chills, No fever EENTM: eye pain; No ear pain Respiratory: No cough, No short of breath Cardiovascular: No chest pain; palpitations; No syncope Gastrointestinal: No abdominal pain, No nausea, No vomiting Genitourinary: no symptoms reported Skin: No lesions, No rash Psychiatric/Neurological: Anxiety, Headache, Weakness Hematologic/Lymphatic: No Symptoms Reported All Other Systems Reviewed Negative Unless Noted: Yes Past Lqhzyor-Voorqn-Gnfkhm Hx Past Med/Social Hx: Reviewed Nursing Past Med/Soc Hx Patient Social History Alcohol Use: Rarely Uses Recreational Drug Use: No Smoking Status: Never a Smoker 2nd Hand Smoke Exposure: No Recent Foreign Travel: No Contact w/Someone Who Travel: No Recent Infectious Disease Expo: No Recent Hopitalizations: No Immunizations Up To Date Tetanus Booster (TDap): More than 5yrs Date of Pneumonia Vaccine: Oct 04, 2011 Date of Influenza Vaccine: Jun 25, 2019 Seasonal Allergies Seasonal Allergies: No Past Medical History Surgeries: Yes (R knee replaced x2, port, c/s x3, hernia x5, rotator cuff, ) Abdominal, Appendectomy, Hysterectomy, Joint Replacement, Neurological, Orthopedic, Thyroidectomy, Tonsillectomy Respiratory: Yes Asthma, Pneumonia, Chronic Bronchitis, Sleep Apnea Currently Using CPAP: Yes Cardiac: Yes High Cholesterol Neurological: Yes (CHIARI MALFORMATION--SURGICAL REPAIR; RESTLESS LEG SYNDROME) Reproductive Disorders: No Female Reproductive Disorders: 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 CHRONIC ABDOMINAL PAIN) Chronic Constipation, Chronic Diarrhea Musculoskeletal: Yes Arthritis, Chronic Back Pain Endocrine: Yes (BENIGN MASS LEFT THYROID REMOVED 01/01/2013) Diabetes, Non-Insulin dep HEENT: Yes Cataract Loss of Vision: Denies Hearing Impairment: Denies Cancer: No Psychosocial: Yes Anxiety, Depression Integumentary: No Blood Disorders: No Adverse Reaction/Blood Tranf: No Family Medical History Reviewed Nursing Family Hx Cancer 03 FATHER (PANCREATIC, PASSED AT 65 FROM THIS) Cataract 03 MOTHER Dementia 03 MOTHER Family history: Arthritis 03 MOTHER Family history: Cardiovascular disease 03 MOTHER (HIGH CHOLESTEROL, [place] ARTERIES 2 TIMES) Hearing loss 03 MOTHER Hypercholesterolemia 03 MOTHER Cancer Physical Exam Vital Signs Vital Signs - First Documented 10/02/19 17:15 Temp 37.0 Pulse 67 Resp 16 B/P (MAP) 150/92 (111) Pulse Ox 95 O2 Delivery Room Air Capillary Refill : Less Than 3 Seconds Height, Weight, BMI Height: 5'4.00" Weight: 232lbs. 0.0oz. 105.061491yl; 37.00 BMI Method:Stated General Appearance: No Apparent Distress, WD/WN HEENT: PERRL/EOMI, Pharynx Normal, Other (bilateral eyes are red and she is currently being treated for eye infection) Neck: Non Tender, Supple Respiratory: Lungs Clear, Normal Breath Sounds Cardiovascular: Regular Rate, Rhythm, No Murmur Gastrointestinal: Non Tender, Soft Back: Normal Inspection, No CVA Tenderness, No Vertebral Tenderness Extremity: Normal Range of Motion, Non Tender Neurologic/Psychiatric: Alert, Oriented x3 Skin: Normal Color, Warm/Dry Progress/Results/Core Measures Suspected Sepsis Recent Fever Within 48 Hours: No Infection Criteria Present: None New/Unexplained Altered Menta: No Sepsis Screen: No Definite Risk SIRS Temperature: Pulse: 67 Respiratory Rate: 16 Laboratory Tests 10/02/19 17:40: White Blood Count 14.6H Blood Pressure 150 /92 Mean: 111 Laboratory Tests 10/02/19 17:40: Creatinine 1.04, Platelet Count 227, Total Bilirubin 0.8 Results/Orders Lab Results Laboratory Tests Test 10/02/19 17:18 10/02/19 17:40 10/02/19 18:59 Range/Units Glucometer 231 H 70-110 MG/DL White Blood Count 14.6 H 4.3-11.0 10^3/uL Red Blood Count 4.78 4.35-5.85 10^6/uL Hemoglobin 13.6 11.5-16.0 G/DL Hematocrit 42 35-52 % Mean Corpuscular Volume 87 80-99 FL Mean Corpuscular Hemoglobin 29 25-34 PG Mean Corpuscular Hemoglobin Concent 33 32-36 G/DL Red Cell Distribution Width 14.7 H 10.0-14.5 % Platelet Count 227 130-400 10^3/uL Mean Platelet Volume 10.5 H 7.4-10.4 FL Neutrophils (%) (Auto) 87 H 42-75 % Lymphocytes (%) (Auto) 10 L 12-44 % Monocytes (%) (Auto) 2 0-12 % Eosinophils (%) (Auto) 0 0-10 % Basophils (%) (Auto) 0 0-10 % Neutrophils # (Auto) 12.8 H 1.8-7.8 X 10^3 Lymphocytes # (Auto) 1.5 1.0-4.0 X 10^3 Monocytes # (Auto) 0.4 0.0-1.0 X 10^3 Eosinophils # (Auto) 0.0 0.0-0.3 10^3/uL Basophils # (Auto) 0.0 0.0-0.1 10^3/uL Neutrophils % (Manual) 85 % Lymphocytes % (Manual) 7 % Monocytes % (Manual) 4 % Eosinophils % (Manual) 0 % Basophils % (Manual) 0 % Band Neutrophils 2 % Reactive Lymphocytes 2 % Polychromasia SLIGHT Anisocytosis SLIGHT Sodium Level 137 135-145 MMOL/L Potassium Level 4.8 3.6-5.0 MMOL/L Chloride Level 104 98-107 MMOL/L Carbon Dioxide Level 20 L 21-32 MMOL/L Anion Gap 13 5-14 MMOL/L Blood Urea Nitrogen 30 H 7-18 MG/DL Creatinine 1.04 0.60-1.30 MG/DL Estimat Glomerular Filtration Rate 53 BUN/Creatinine Ratio 29 Glucose Level 237 H 70-105 MG/DL Calcium Level 9.8 8.5-10.1 MG/DL Corrected Calcium 9.9 8.5-10.1 MG/DL Magnesium Level 1.8 1.6-2.4 MG/DL Total Bilirubin 0.8 0.1-1.0 MG/DL Aspartate Amino Transf (AST/SGOT) 9 5-34 U/L Alanine Aminotransferase (ALT/SGPT) 14 0-55 U/L Alkaline Phosphatase 83 40-136 U/L Total Protein 6.6 6.4-8.2 GM/DL Albumin 3.9 3.2-4.5 GM/DL Amylase Level 28 25-125 U/L Lipase 20 8-78 U/L Urine Color YELLOW Urine Clarity CLEAR Urine pH 5.0 5-9 Urine Specific [place] 1.020 1.016-1.022 Urine Protein NEGATIVE NEGATIVE Urine Glucose (UA) NEGATIVE NEGATIVE Urine Ketones NEGATIVE NEGATIVE Urine Nitrite NEGATIVE NEGATIVE Urine Bilirubin NEGATIVE NEGATIVE Urine Urobilinogen 0.2 < = 1.0 MG/DL Urine Leukocyte Esterase NEGATIVE NEGATIVE Urine RBC (Auto) NEGATIVE NEGATIVE Urine RBC NONE /HPF Urine WBC NONE /HPF Urine Squamous Epithelial Cells 0-2 /HPF Urine Crystals NONE /LPF Urine Bacteria TRACE /HPF Urine Casts NONE /LPF Urine Mucus NEGATIVE /LPF Urine Culture Indicated NO My Orders Orders - DAVID SINGH MD Ketorolac Injection (Toradol Injection) (10/02/19 18:25) Hydrocodone/Apap 7.5/325 Tab (Lortab 7. (10/02/19 19:27) Accucheck Stat ONCE (10/02/19 19:27) Vital Signs/I&O 10/02/19 17:15 Temp 37.0 Pulse 67 Resp 16 B/P (MAP) 150/92 (111) Pulse Ox 95 O2 Delivery Room Air Capillary Refill : Less Than 3 Seconds Blood Pressure Mean: 111 Point of Care Testing Finger Stick Blood Glucose: 231 Progress Note : Progress Note Seen and evaluated. IV, labs and UA ordered. Normal saline 1 L bolus. Blood sugar 230s and not concerning at this point. Pending UA. Monitor patient. 1899: UA obtained. Fluids nearly complete. We will recheck blood sugar. She is on a declining dose of prednisone. We did talk about outpatient care for diabetics on steroids including avoiding carbohydrates and drink plenty of fluids. Monitor patient. 1931: Repeat blood sugar 194. Hydrocodone 7.5 one tab by mouth given after 30 mg of Toradol did not resolve her headache. She has chronic headaches. Overall she feels much better and was ready to go home. Discharge home with return precautions. Patient verbalize understanding instructions and agreement with plan. Departure Impression Primary Impression: Hyperglycemia Disposition: 01 HOME, SELF-CARE Condition: Improved Departure-Patient Inst. Decision time for Depature: 19:32 Referrals: SABIHA MAXWELL MD (PCP/Family) Primary Care Physician Patient Instructions: Hyperglycemia, Adult (DC) Add. Discharge Instructions: All discharge instructions reviewed with patient and/or family. Voiced understanding. Your blood sugar is elevated related to the prednisone that this should improve as your prednisone dosing is decreasing. Ensure that you drink plenty of non- sugared fluids and avoid carbohydrates while you're taking the prednisone. Take other medications as previously prescribed. Follow-up with Dr. Maxwell for recheck and further evaluation and to discuss blood sugar management. Return for worse pain, fever, vomiting, weakness, breathing problems or other concerns as needed. Copy Copies To 1: SABIHA MAXWELL MD, TIMOTHY D MD Oct 02, 2019 19:04
[2019-10-02 19:05] LABS: BILIRUBIN,URINE NEGATIVE (NEGATIVE); CLARITY,URINE CLEAR; COLOR,URINE YELLOW; GLUCOSE, URINE (UA) NEGATIVE (NEGATIVE); KETONES,URINE NEGATIVE (NEGATIVE); LEUKOCYTE ESTERASE ,URINE NEGATIVE (NEGATIVE); NITRITE,URINE NEGATIVE (NEGATIVE); PROTEIN,URINE NEGATIVE (NEGATIVE)
[2019-10-02 19:11] LABS: BACTERIA,URINE TRACE /HPF; SQUAMOUS EPITHELIAL CELL,UR 0-2 /HPF
[2019-10-02] MEDS ORDERED: HYDROcodone/APAP 7.5 MG/325 MG (LORTAB, LORCET PLUS) TABLET PO STA (19:27)
[2019-10-02 19:39] VITALS: BP 150/92
== END 2019-10-02 19:40 | disposition home or self-care (01) ==
LOC: EDUNIT# 17:06 → ER 17:09
DX: E11.65 Type 2 diabetes mellitus with hyperglycemia (principal); E78.00 Pure hypercholesterolemia, unspecified; F41.9 Anxiety disorder, unspecified; F32.9 Major depressive disorder, single episode, unspecified; G47.30 Sleep apnea, unspecified; Z99.89 Dependence on other enabling machines and devices; Z79.84 Long term (current) use of oral hypoglycemic drugs; Z96.651 Presence of right artificial knee joint
CPT/HCPCS: 36415; 80053; 81000; 82150; 82962; 83690; 83735; 85007; 85027; 96361; 96374

== ENCOUNTER → 2019-10-05 | Outpatient (CLI) | payer MEDICARE, OTHER ==
--- NOTE | 2019-10-05 17:02 | Diagnostic Imaging Report ---
INDICATION: Pneumonia and cough. PA and lateral views of the chest are obtained. Comparison is made study of 09/02/2019. Overall heart size is within normal limits. Pulmonary vascularity is at the upper limits of normal. However, there is no evidence of consolidation. No pneumothorax or significant pleural fluid is identified. There may be slight left basilar atelectasis. IMPRESSION: Probably slight left basilar atelectasis and/or pneumonitis. Otherwise, no acute abnormality or adverse change is identified. Dictated by: Dictated on workstation # [id number]
== END ==
LOC: RAD 16:32
DX: J18.9 Pneumonia, unspecified organism (principal)
CPT/HCPCS: 71046

== ENCOUNTER 2019-12-16 09:40 | Outpatient (RCR) | payer MEDICARE, OTHER ==
[2019-12-10 11:35] VITALS: BP 160/83
[2019-12-10] MEDS: ERTAPENEM 1 GM/NS 50 ML IVPB IV SCH ×2 (12:04)
[2019-12-11] MEDS: ERTAPENEM 1 GM/NS 50 ML IVPB IV SCH ×2 (10:13)
[2019-12-11 10:50] VITALS: BP 137/61
[2019-12-12] MEDS: ERTAPENEM 1 GM/NS 50 ML IVPB IV SCH ×2 (10:02)
[2019-12-12 10:35] VITALS: BP 157/87
[2019-12-13] MEDS: ERTAPENEM 1 GM/NS 50 ML IVPB IV SCH ×2 (09:54)
[2019-12-13 10:27] VITALS: BP 154/76
[2019-12-14 09:59] VITALS: BP 160/78
[2019-12-14] MEDS: ERTAPENEM 1 GM/NS 50 ML IVPB IV SCH ×2 (09:59)
[2019-12-15] MEDS: ERTAPENEM 1 GM/NS 50 ML IVPB IV SCH ×2 (09:53)
[2019-12-15 10:24] VITALS: BP 165/71
[~2019-12-16] VITALS: Ht 170.2 cm; Wt 100.0 kg
[~2019-12-16 09:40] MED LIST changes: +ACHYD1T PO; -HYDR-3820 PO; -OXYB10TA2 PO; +OXYB10TA29 PO; -OXYC-529 PO; +OXYC5TAB96 PO; -TRAZ-190 PO; +TRAZ-227 PO
[2019-12-16] MEDS: ERTAPENEM 1 GM/NS 50 ML IVPB IV SCH ×2 (10:05)
[2019-12-16 10:40] VITALS: BP 141/75
== END 2019-12-16 10:40 | disposition home or self-care (01) ==
LOC: SDC 09:40
DX: N39.0 Urinary tract infection, site not specified (principal)
CPT/HCPCS: 96365

== ENCOUNTER 2019-12-16 09:44 | Outpatient (RCR) | payer MEDICARE, OTHER ==
[2019-11-05 12:30] VITALS: BP 157/69
[2019-11-05 13:08] LABS: BASOPHILS % (AUTO) 0 % (0-10); EOSINOPHILS # (AUTO) 0.3 10^3/uL (0.0-0.3); EOSINOPHILS % (AUTO) 3 % (0-10); HEMATOCRIT 41 % (35-52); HEMOGLOBIN 13.1 G/DL (11.5-16.0); LYMPHOCYTES # (AUTO) 1.9 X 10^3 (1.0-4.0); LYMPHOCYTES % (AUTO) 19 % (12-44); MEAN CORPUSCULAR HEMOGLOBIN 28 PG (25-34); MEAN CORPUSCULAR HGB CONC 32 G/DL (32-36); MEAN CORPUSCULAR VOLUME 88 FL (80-99); MEAN PLATELET VOLUME 10.6 FL (7.4-10.4); MONOCYTES # (AUTO) 0.5 X 10^3 (0.0-1.0); MONOCYTES % (AUTO) 5 % (0-12); NEUTROPHILS # (AUTO) 7.6 X 10^3 (1.8-7.8); NEUTROPHILS % (AUTO) 74 % (42-75); PLATELET COUNT 213 10^3/uL (130-400); RED CELL DISTRIBUTION WIDTH 15.6 % (10.0-14.5); WHITE BLOOD COUNT 10.3 10^3/uL (4.3-11.0)
[2019-11-05 13:44] LABS: ALANINE AMINOTRANSFERASE 12 U/L (0-55); ALKALINE PHOSPHATASE 95 U/L (40-136); BILIRUBIN,TOTAL 0.9 MG/DL (0.1-1.0); BUN/CREATININE RATIO 22; CALCIUM 9.8 MG/DL (8.5-10.1); CARBON DIOXIDE 24 MMOL/L (21-32); CHLORIDE 104 MMOL/L (98-107); CREATININE SERUM 0.78 MG/DL (0.60-1.30); GFR ESTIMATED > 60; GLUCOSE 159 MG/DL (70-105); POTASSIUM 4.8 MMOL/L (3.6-5.0); SODIUM 140 MMOL/L (135-145); TOTAL PROTEIN 6.6 GM/DL (6.4-8.2)
[~2019-12-16] VITALS: Ht 170.2 cm; Wt 100.0 kg
[2019-12-16 10:05] LABS: BASOPHILS % (AUTO) 0 % (0-10); EOSINOPHILS # (AUTO) 0.2 10^3/uL (0.0-0.3); EOSINOPHILS % (AUTO) 2 % (0-10); HEMATOCRIT 41 % (35-52); HEMOGLOBIN 13.5 G/DL (11.5-16.0); LYMPHOCYTES # (AUTO) 1.6 X 10^3 (1.0-4.0); LYMPHOCYTES % (AUTO) 17 % (12-44); MEAN CORPUSCULAR HEMOGLOBIN 29 PG (25-34); MEAN CORPUSCULAR HGB CONC 33 G/DL (32-36); MEAN CORPUSCULAR VOLUME 88 FL (80-99); MEAN PLATELET VOLUME 10.1 FL (7.4-10.4); MONOCYTES # (AUTO) 0.4 X 10^3 (0.0-1.0); MONOCYTES % (AUTO) 4 % (0-12); NEUTROPHILS # (AUTO) 7.2 X 10^3 (1.8-7.8); NEUTROPHILS % (AUTO) 77 % (42-75); PLATELET COUNT 200 10^3/uL (130-400); WHITE BLOOD COUNT 9.5 10^3/uL (4.3-11.0)
[2019-12-16] MEDS ORDERED: CATHETER FLUSH 10 ML SYR IV PRN (10:15)
[2019-12-16] MEDS ORDERED: HEParin (CENTRAL IV FLUSH) 500 UNIT/5 ML SYR IV ONE (10:15)
[2019-12-16 10:17] LABS: ALBUMIN 3.6 GM/DL (3.2-4.5); CHLORIDE 104 MMOL/L (98-107); POTASSIUM 4.2 MMOL/L (3.6-5.0); SODIUM 138 MMOL/L (135-145)
[2019-12-16 10:18] LABS: CALCIUM 8.9 MG/DL (8.5-10.1)
[2019-12-16 10:19] LABS: GLUCOSE 202 MG/DL (70-105); TOTAL PROTEIN 6.3 GM/DL (6.4-8.2)
[2019-12-16 10:20] LABS: CARBON DIOXIDE 22 MMOL/L (21-32)
[2019-12-16 10:21] LABS: BILIRUBIN,TOTAL 1.1 MG/DL (0.1-1.0)
[2019-12-16] MEDS ORDERED: HEParin (CENTRAL IV FLUSH) 500 UNIT/5 ML SYR ONE (10:21)
[2019-12-16 10:23] LABS: ALKALINE PHOSPHATASE 92 U/L (40-136); CREATININE SERUM 0.84 MG/DL (0.60-1.30); GFR ESTIMATED > 60
[2019-12-16 10:24] LABS: BUN/CREATININE RATIO 18
[2019-12-16 10:26] LABS: ALANINE AMINOTRANSFERASE 12 U/L (0-55)
[2019-12-16 10:35] VITALS: BP 141/75
== END 2020-02-03 | disposition home or self-care (01) ==
LOC: SDC 09:44
DX: I87.2 Venous insufficiency (chronic) (peripheral) (principal)
CPT/HCPCS: 36415; 36591; 80053; 84443; 85025

== ENCOUNTER 2020-01-03 14:27 | Emergency (ER) | payer MEDICARE, OTHER ==
[~2020-01-03] VITALS: Ht 167 cm; Wt 104.0 kg
--- NOTE | 2020-01-03 14:41 | ED General ---
General Stated Complaint: HIGH BLOOD SUGAR Source of Information: Patient Exam Limitations: No Limitations History of Present Illness Date Seen by Provider: January 03, 2020 Time Seen by Provider: 14:40 Initial Comments This nvk-biqidzy-toscwqajp diabetic presents to ER with complaints of blood sugar of 400 after a cheeseburger and strawberry milkshake for lunch. Timing/Duration: 1-3 Hours Severity: Moderate Associated Systoms: No Cough, No Nausea/Vomiting; Shortness of Air Allergies and Home Medications Allergies Coded Allergies: No Known Drug Allergies (Unverified , 02/11/14) Home Medications Ascorbate Calcium 500 Mg Tablet, 500 MG PO TID, (Reported) Celecoxib 200 Mg Capsule, 200 MG PO BID, (Reported) Citalopram Hydrobromide 20 Mg Tablet, 20 MG PO HS, (Reported) Diazepam 5 Mg Tablet, 5 MG PO TID PRN for ANXIETY, (Reported) Diclofenac Sodium 100 Gm Gel..gram., TOP BID PRN for LEG PAIN, (Reported) Docusate Sodium 100 Mg Capsule, 100 MG PO DAILY PRN for CONSTIPATION-1ST LINE, (Reported) Ferrous Sulfate 325 Mg Tablet, 325 MG PO DAILY, (Reported) Gabapentin 600 Mg Tablet, 1,800 MG PO TID, (Reported) TAKES 3 (600MG) TABLETS Hydrochlorothiazide 25 Mg Tablet, 25 MG PO DAILY, (Reported) Hydrocodone Bit/Acetaminophen 1 Each Tablet, 1 TAB PO Q8H PRN for PAIN-MODERATE, (Reported) Hydrocodone Bit/Acetaminophen 1 Ea Tablet, 1 EACH PO Q4H PRN for PAIN-MODERATE Prescribed by: NELSY BOWSER on 09/02/19 1458 Lactobacillus Combo No.10 1 Each Capsule, 1 CAP PO HS, (Reported) Oxybutynin Chloride 10 Mg Tab.er.24, 10 MG PO DAILY, (Reported) Pantoprazole Sodium 40 Mg Tablet.dr, 40 MG PO DAILY PRN for HEARTBURN, (Reported) Polyethylene Glycol 3350 119 Gm Powder, 17 GM PO DAILY, (Reported) Pramipexole Di-HCl 0.5 Mg Tablet, 1 MG PO TID, (Reported) TAKES 2 (0.5MG) TABLETS Simvastatin 40 Mg Tablet, 40 MG PO HS, (Reported) Sitagliptin Phosphate 100 Mg Tablet, 100 MG PO DAILY, (Reported) Trazodone HCl 100 Mg Tablet, 100 MG PO HS, (Reported) Patient Home Medication List Home Medication List Reviewed: Yes Review of Systems Review of Systems Constitutional: see HPI; No chills, No fever EENTM: see HPI Respiratory: see HPI, short of breath Cardiovascular: no symptoms reported Gastrointestinal: No abdominal pain, No nausea, No vomiting Genitourinary: no symptoms reported Musculoskeletal: no symptoms reported Skin: no symptoms reported Psychiatric/Neurological: No Symptoms Reported Hematologic/Lymphatic: No Symptoms Reported Past Nrlzofs-Ilggrb-Eqxqdx Hx Patient Social History 2nd Hand Smoke Exposure: No Recent Foreign Travel: No Contact w/Someone Who Travel: No Recent Hopitalizations: No Immunizations Up To Date Tetanus Booster (TDap): More than 5yrs Date of Pneumonia Vaccine: Oct 04, 2011 Date of Influenza Vaccine: Jun 25, 2019 Seasonal Allergies Seasonal Allergies: No Past Medical History Surgeries: Yes (R knee replaced x2, port, c/s x3, hernia x5, rotator cuff, ) Abdominal, Appendectomy, Hysterectomy, Joint Replacement, Neurological, Orthopedic, Thyroidectomy, Tonsillectomy Respiratory: Yes Asthma, Pneumonia, Chronic Bronchitis, Sleep Apnea Currently Using CPAP: Yes Cardiac: Yes High Cholesterol Neurological: Yes (CHIARI MALFORMATION--SURGICAL REPAIR; RESTLESS LEG SYNDROME) Reproductive Disorders: No Female Reproductive Disorders: Denies 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 CHRONIC ABDOMINAL PAIN) Chronic Constipation, Chronic Diarrhea Musculoskeletal: Yes Arthritis, Chronic Back Pain Endocrine: Yes (BENIGN MASS LEFT THYROID REMOVED 01/01/2013) Diabetes, Non-Insulin dep HEENT: Yes Cataract Loss of Vision: Denies Hearing Impairment: Denies Cancer: No Psychosocial: Yes Anxiety, Depression Integumentary: No Blood Disorders: No Adverse Reaction/Blood Tranf: No Family Medical History Cancer 03 FATHER (PANCREATIC, PASSED AT 65 FROM THIS) Cataract 03 MOTHER Dementia 03 MOTHER Family history: Arthritis 03 MOTHER Family history: Cardiovascular disease 03 MOTHER (HIGH CHOLESTEROL, [place] ARTERIES 2 TIMES) Hearing loss 03 MOTHER Hypercholesterolemia 03 MOTHER Cancer Physical Exam Vital Signs Vital Signs - First Documented 01/03/20 14:35 Temp 36.6 Pulse 115 Resp 22 B/P (MAP) 200/80 (120) Pulse Ox 96 O2 Delivery Room Air Capillary Refill : Height, Weight, BMI Height: 5'4.00" Weight: 232lbs. 0.0oz. 105.376843xf; 37.00 BMI Method:Stated General Appearance: No Apparent Distress, WD/WN Eyes: Bilateral Eye Normal Inspection, Bilateral Eye PERRL, Bilateral Eye EOMI HEENT: PERRL/EOMI, TMs Normal Neck: Full Range of Motion, Normal Inspection Respiratory: Lungs Clear, Normal Breath Sounds, No Accessory Muscle Use, No Respiratory Distress Gastrointestinal: Normal Bowel Sounds, Non Tender, Soft Extremity: Normal Capillary Refill, Normal Inspection Neurologic/Psychiatric: Alert, Oriented x3 Progress/Results/Core Measures Suspected Sepsis SIRS Temperature: Pulse: Respiratory Rate: Laboratory Tests 01/03/20 14:45: White Blood Count 12.3H Blood Pressure / Mean: Laboratory Tests 01/03/20 14:45: Creatinine 0.96, Platelet Count 235, Total Bilirubin 0.7 Results/Orders Lab Results Laboratory Tests Test 01/03/20 14:45 01/03/20 14:50 Range/Units White Blood Count 12.3 H 4.3-11.0 10^3/uL Red Blood Count 5.14 4.35-5.85 10^6/uL Hemoglobin 14.3 11.5-16.0 G/DL Hematocrit 45 35-52 % Mean Corpuscular Volume 87 80-99 FL Mean Corpuscular Hemoglobin 28 25-34 PG Mean Corpuscular Hemoglobin Concent 32 32-36 G/DL Red Cell Distribution Width 14.7 H 10.0-14.5 % Platelet Count 235 130-400 10^3/uL Mean Platelet Volume 10.9 H 7.4-10.4 FL Neutrophils (%) (Auto) 78 H 42-75 % Lymphocytes (%) (Auto) 16 12-44 % Monocytes (%) (Auto) 5 0-12 % Eosinophils (%) (Auto) 1 0-10 % Basophils (%) (Auto) 0 0-10 % Neutrophils # (Auto) 9.6 H 1.8-7.8 X 10^3 Lymphocytes # (Auto) 2.0 1.0-4.0 X 10^3 Monocytes # (Auto) 0.6 0.0-1.0 X 10^3 Eosinophils # (Auto) 0.2 0.0-0.3 10^3/uL Basophils # (Auto) 0.0 0.0-0.1 10^3/uL Sodium Level 137 135-145 MMOL/L Potassium Level 4.5 3.6-5.0 MMOL/L Chloride Level 102 98-107 MMOL/L Carbon Dioxide Level 22 21-32 MMOL/L Anion Gap 13 5-14 MMOL/L Blood Urea Nitrogen 20 H 7-18 MG/DL Creatinine 0.96 0.60-1.30 MG/DL Estimat Glomerular Filtration Rate 58 BUN/Creatinine Ratio 21 Glucose Level 319 H 70-105 MG/DL Calcium Level 9.9 8.5-10.1 MG/DL Corrected Calcium 9.9 8.5-10.1 MG/DL Total Bilirubin 0.7 0.1-1.0 MG/DL Aspartate Amino Transf (AST/SGOT) 12 5-34 U/L Alanine Aminotransferase (ALT/SGPT) 11 0-55 U/L Alkaline Phosphatase 109 40-136 U/L Total Protein 6.6 6.4-8.2 GM/DL Albumin 4.0 3.2-4.5 GM/DL Beta-Hydroxybutyrate (Chem panel) 0.23 0.00-0.27 MMOL/L Urine Color YELLOW Urine Clarity CLEAR Urine pH 5.5 5-9 Urine Specific [place] 1.025 H 1.016-1.022 Urine Protein NEGATIVE NEGATIVE Urine Glucose (UA) 3+ H NEGATIVE Urine Ketones NEGATIVE NEGATIVE Urine Nitrite NEGATIVE NEGATIVE Urine Bilirubin NEGATIVE NEGATIVE Urine Urobilinogen 0.2 < = 1.0 MG/DL Urine Leukocyte Esterase NEGATIVE NEGATIVE Urine RBC (Auto) NEGATIVE NEGATIVE Urine RBC NONE /HPF Urine WBC RARE /HPF Urine Squamous Epithelial Cells 2-5 /HPF Urine Crystals NONE /LPF Urine Bacteria TRACE /HPF Urine Casts NONE /LPF Urine Mucus NEGATIVE /LPF Urine Culture Indicated NO Glucometer 305 H 70-110 MG/DL My Orders Orders - JETHRO RICE APRN Cbc With Automated Diff (01/03/20 14:32) Comprehensive Metabolic Panel (01/03/20 14:32) Beta Hydroxybutyrate (01/03/20 14:32) Ed Iv/Invasive Line Start (01/03/20 14:32) Ua Culture If Indicated (01/03/20 14:32) Accucheck Stat ONCE (01/03/20 14:32) Insulin (Regular) Human (Humulin R (Per (01/03/20 14:45) Ns Iv 1000 Ml (Sodium Chloride 0.9%) (01/03/20 14:45) Medications Given in ED Current Medications Medications Dose Ordered Sig/Eloise Route Start Time Stop Time Status Last Admin Dose Admin Insulin Human Regular 8 unit ONCE ONCE IV 01/03/20 14:45 01/03/20 14:46 DC 01/03/20 15:08 4 UNIT Vital Signs/I&O 01/03/20 14:35 Temp 36.6 Pulse 115 Resp 22 B/P (MAP) 200/80 (120) Pulse Ox 96 O2 Delivery Room Air Capillary Refill : Departure Impression Primary Impression: Hyperglycemia Disposition: HOME, SELF-CARE Condition: Stable Departure-Patient Inst. Decision time for Depature: 15:27 Referrals: SABIHA MAXWELL MD (PCP/Family) Primary Care Physician Patient Instructions: Hyperglycemia, Adult Add. Discharge Instructions: 1. Follow-up with your doctor next week 2. Return to ER for any concerns 3. JETHRO RICE SINGE WINDER January 03, 2020 14:41
[2020-01-03] MEDS ORDERED: inSUlin (REGULAR) HUMAN 1 UNIT/0.01 ML (CHARGE PER UNIT) IV ONE (14:45)
[2020-01-03] MEDS ORDERED: NS IV 1000 ML 1,000 ML IV SCH (14:45)
[2020-01-03 15:05] LABS: BASOPHILS % (AUTO) 0 % (0-10); EOSINOPHILS # (AUTO) 0.2 10^3/uL (0.0-0.3); EOSINOPHILS % (AUTO) 1 % (0-10); HEMATOCRIT 45 % (35-52); HEMOGLOBIN 14.3 G/DL (11.5-16.0); LYMPHOCYTES % (AUTO) 16 % (12-44); MEAN CORPUSCULAR HEMOGLOBIN 28 PG (25-34); MEAN CORPUSCULAR HGB CONC 32 G/DL (32-36); MEAN CORPUSCULAR VOLUME 87 FL (80-99); MEAN PLATELET VOLUME 10.9 FL (7.4-10.4); MONOCYTES # (AUTO) 0.6 X 10^3 (0.0-1.0); MONOCYTES % (AUTO) 5 % (0-12); NEUTROPHILS # (AUTO) 9.6 X 10^3 (1.8-7.8); NEUTROPHILS % (AUTO) 78 % (42-75); PLATELET COUNT 235 10^3/uL (130-400); RED CELL DISTRIBUTION WIDTH 14.7 % (10.0-14.5); WHITE BLOOD COUNT 12.3 10^3/uL (4.3-11.0)
[2020-01-03 15:12] LABS: BILIRUBIN,URINE NEGATIVE (NEGATIVE); CLARITY,URINE CLEAR; COLOR,URINE YELLOW; GLUCOSE, URINE (UA) 3+ (NEGATIVE); KETONES,URINE NEGATIVE (NEGATIVE); LEUKOCYTE ESTERASE ,URINE NEGATIVE (NEGATIVE); NITRITE,URINE NEGATIVE (NEGATIVE); PH,URINE 5.5 (5-9); PROTEIN,URINE NEGATIVE (NEGATIVE)
[2020-01-03 15:16] LABS: POTASSIUM 4.5 MMOL/L (3.6-5.0)
[2020-01-03 15:17] LABS: CALCIUM 9.9 MG/DL (8.5-10.1)
[2020-01-03 15:18] LABS: TOTAL PROTEIN 6.6 GM/DL (6.4-8.2)
[2020-01-03 15:19] LABS: BACTERIA,URINE TRACE /HPF; WBC,URINE RARE /HPF
[2020-01-03 15:20] LABS: BILIRUBIN,TOTAL 0.7 MG/DL (0.1-1.0)
[2020-01-03 15:22] LABS: CREATININE SERUM 0.96 MG/DL (0.60-1.30)
[2020-01-03 16:19] VITALS: BP 147/63
== END 2020-01-03 16:17 | disposition home or self-care (01) ==
LOC: EDUNIT# 14:27 → ER 14:28
DX: E11.65 Type 2 diabetes mellitus with hyperglycemia (principal); J45.909 Unspecified asthma, uncomplicated; G47.30 Sleep apnea, unspecified; E78.00 Pure hypercholesterolemia, unspecified; F41.9 Anxiety disorder, unspecified; F32.9 Major depressive disorder, single episode, unspecified; Z79.84 Long term (current) use of oral hypoglycemic drugs; Z96.651 Presence of right artificial knee joint; Z80.0 Family history of malignant neoplasm of digestive organs; Z82.49 Family history of ischemic heart disease and other diseases of the circulatory system
CPT/HCPCS: 36415; 80053; 81000; 82010; 82962; 85025

== ENCOUNTER 2020-04-15 09:55 | Observation (INO) | payer MEDICARE, OTHER ==
[~2020-04-15] VITALS: Ht 167.7 cm; Wt 115.3 kg
[~2020-04-15 09:55] MED LIST changes: +NF-ZOL12.5 PO; -ZOLP12.546 PO
--- NOTE | 2020-04-15 10:28 | ED Cough/URI ---
General Chief Complaint: Respiratory Problems Stated Complaint: SOA Source: patient Exam Limitations: no limitations History of Present Illness Date Seen by Provider: Apr 15, 2020 Time Seen by Provider: 10:26 Initial Comments To ER by private vehicle with reports of shortness of breath that started yesterday. She states that she has been diagnosed with asthma. She denies fevers or chills. She denies exposure to anyone with known COVID symptoms. She has a nebulizer at home and it does help. Timing/Duration: yesterday Severity/Quality: no cough Associated Symptoms: shortness of breath, wheezing Allergies and Home Medications Allergies Coded Allergies: No Known Drug Allergies (Unverified , 02/11/14) Home Medications Ascorbate Calcium 500 Mg Tablet, 500 MG PO TID, (Reported) Celecoxib 200 Mg Capsule, 200 MG PO BID, (Reported) Citalopram Hydrobromide 20 Mg Tablet, 20 MG PO HS, (Reported) Diazepam 5 Mg Tablet, 5 MG PO TID PRN for ANXIETY, (Reported) Diclofenac Sodium 100 Gm Gel..gram., TOP BID PRN for LEG PAIN, (Reported) Docusate Sodium 100 Mg Capsule, 100 MG PO DAILY PRN for CONSTIPATION-1ST LINE, (Reported) Ferrous Sulfate 325 Mg Tablet, 325 MG PO DAILY, (Reported) Gabapentin 600 Mg Tablet, 1,800 MG PO TID, (Reported) TAKES 3 (600MG) TABLETS Hydrochlorothiazide 25 Mg Tablet, 25 MG PO DAILY, (Reported) Hydrocodone Bit/Acetaminophen 1 Each Tablet, 1 TAB PO Q8H PRN for PAIN-MODERATE, (Reported) Hydrocodone Bit/Acetaminophen 1 Ea Tablet, 1 EACH PO Q4H PRN for PAIN-MODERATE Prescribed by: NELSY BOWSER on 09/02/19 1458 Lactobacillus Combo No.10 1 Each Capsule, 1 CAP PO HS, (Reported) Oxybutynin Chloride 10 Mg Tab.er.24, 10 MG PO DAILY, (Reported) Pantoprazole Sodium 40 Mg Tablet.dr, 40 MG PO DAILY PRN for HEARTBURN, (Reported) Polyethylene Glycol 3350 119 Gm Powder, 17 GM PO DAILY, (Reported) Pramipexole Di-HCl 0.5 Mg Tablet, 1 MG PO TID, (Reported) TAKES 2 (0.5MG) TABLETS Simvastatin 40 Mg Tablet, 40 MG PO HS, (Reported) Sitagliptin Phosphate 100 Mg Tablet, 100 MG PO DAILY, (Reported) Trazodone HCl 100 Mg Tablet, 100 MG PO HS, (Reported) Patient Home Medication List Home Medication List Reviewed: Yes Review of Systems Review of Systems Constitutional: see HPI EENTM: see HPI Respiratory: see HPI, short of breath, wheezing Cardiovascular: no symptoms reported Genitourinary: no symptoms reported Musculoskeletal: no symptoms reported Skin: no symptoms reported Psychiatric/Neurological: No Symptoms Reported Hematologic/Lymphatic: No Symptoms Reported Immunological/Allergic: no symptoms reported Past Knzaojx-Raszmf-Mvfybw Hx Patient Social History Alcohol Use: Occasionally Uses Recreational Drug Use: No 2nd Hand Smoke Exposure: No Recent Hopitalizations: No Physical Abuse: No Sexual Abuse: No Mistreated: No Immunizations Up To Date Tetanus Booster (TDap): More than 5yrs Date of Pneumonia Vaccine: Oct 04, 2011 Date of Influenza Vaccine: Jun 25, 2019 Seasonal Allergies Seasonal Allergies: No Past Medical History Surgeries: Yes (R knee replaced x2, port, c/s x3, hernia x5, rotator cuff, ) Abdominal, Appendectomy, Hysterectomy, Joint Replacement, Neurological, Orthopedic, Thyroidectomy, Tonsillectomy Respiratory: Yes Asthma, Pneumonia, Chronic Bronchitis, Sleep Apnea Currently Using CPAP: Yes Cardiac: Yes High Cholesterol Neurological: Yes (CHIARI MALFORMATION--SURGICAL REPAIR; RESTLESS LEG SYNDROME) Reproductive Disorders: No Female 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 CHRONIC ABDOMINAL PAIN) Chronic Constipation, Chronic Diarrhea Musculoskeletal: Yes Arthritis, Chronic Back Pain Endocrine: Yes (BENIGN MASS LEFT THYROID REMOVED 01/01/2013) Diabetes, Non-Insulin dep HEENT: Yes Cataract Loss of Vision: Denies Hearing Impairment: Denies Cancer: No Psychosocial: Yes Anxiety, Depression Integumentary: No Blood Disorders: No Adverse Reaction/Blood Tranf: No Family Medical History Cancer 03 FATHER (PANCREATIC, PASSED AT 65 FROM THIS) Cataract 03 MOTHER Dementia 03 MOTHER Family history: Arthritis 03 MOTHER Family history: Cardiovascular disease 03 MOTHER (HIGH CHOLESTEROL, [place] ARTERIES 2 TIMES) Hearing loss 03 MOTHER Hypercholesterolemia 03 MOTHER Cancer Physical Exam Vital Signs - First Documented 04/15/20 04/15/20 10:10 10:37 Temp 37.0 Pulse 106 Resp 30 B/P (MAP) 163/80 (107) Pulse Ox 95 O2 Delivery Room Air O2 Flow Rate 2.00 Capillary Refill : Height: 5'4.00" Weight: 232lbs. 0.0oz. 105.533546mi; 37.00 BMI Method:Stated General Appearance: WD/WN, no apparent distress, other (speaks in full sentences. Oxygen saturation 95% on room air but patient requests to have supplemental oxygen) Eyes: Bilateral Eye Normal Inspection, Bilateral Eye PERRL, Bilateral Eye EOMI Neck: non-tender, full range of motion Respiratory: no respiratory distress, no accessory muscle use, wheezing (upper airway expiratory wheezing only (not stridor) but no lower airway wheezing.) Cardiovascular: regular rate, rhythm, no murmur Gastrointestinal: normal bowel sounds, soft Neurologic/Psychiatric: alert, normal mood/affect, oriented x 3 Skin: normal color, warm/dry Progress/Results/Core Measures Suspected Sepsis SIRS Temperature: Pulse: Respiratory Rate: Laboratory Tests 04/15/20 10:30: White Blood Count 9.4 Blood Pressure / Mean: Laboratory Tests 04/15/20 10:30: Creatinine 0.91, Platelet Count 218, Total Bilirubin 0.6 Results/Orders Lab Results Laboratory Tests Test 04/15/20 10:30 Range/Units White Blood Count 9.4 4.3-11.0 10^3/uL Red Blood Count 4.72 4.35-5.85 10^6/uL Hemoglobin 13.0 11.5-16.0 G/DL Hematocrit 41 35-52 % Mean Corpuscular Volume 86 80-99 FL Mean Corpuscular Hemoglobin 28 25-34 PG Mean Corpuscular Hemoglobin Concent 32 32-36 G/DL Red Cell Distribution Width 15.6 H 10.0-14.5 % Platelet Count 218 130-400 10^3/uL Mean Platelet Volume 10.5 H 7.4-10.4 FL Neutrophils (%) (Auto) 73 42-75 % Lymphocytes (%) (Auto) 20 12-44 % Monocytes (%) (Auto) 5 0-12 % Eosinophils (%) (Auto) 2 0-10 % Basophils (%) (Auto) 0 0-10 % Neutrophils # (Auto) 6.9 1.8-7.8 X 10^3 Lymphocytes # (Auto) 1.9 1.0-4.0 X 10^3 Monocytes # (Auto) 0.5 0.0-1.0 X 10^3 Eosinophils # (Auto) 0.1 0.0-0.3 10^3/uL Basophils # (Auto) 0.0 0.0-0.1 10^3/uL D-Dimer 1.78 H 0.00-0.49 UG/ML Sodium Level 137 135-145 MMOL/L Potassium Level 4.1 3.6-5.0 MMOL/L Chloride Level 103 98-107 MMOL/L Carbon Dioxide Level 24 21-32 MMOL/L Anion Gap 10 5-14 MMOL/L Blood Urea Nitrogen 18 7-18 MG/DL Creatinine 0.91 0.60-1.30 MG/DL Estimat Glomerular Filtration Rate > 60 BUN/Creatinine Ratio 20 Glucose Level 401 *H 70-105 MG/DL Calcium Level 8.9 8.5-10.1 MG/DL Corrected Calcium 9.1 8.5-10.1 MG/DL Total Bilirubin 0.6 0.1-1.0 MG/DL Aspartate Amino Transf (AST/SGOT) 15 5-34 U/L Alanine Aminotransferase (ALT/SGPT) 19 0-55 U/L Alkaline Phosphatase 103 40-136 U/L C-Reactive Protein High Sensitivity 2.67 H 0.00-0.50 MG/DL B-Type Natriuretic Peptide 28.3 <100.0 PG/ML Total Protein 6.4 6.4-8.2 GM/DL Albumin 3.7 3.2-4.5 GM/DL Procalcitonin 0.19 H <0.10 NG/ML My Orders Orders - 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 Albuterol/Ipra Inhalation Soln (Duoneb I (04/15/20 10:30) Methylprednisolone Sod Succ (Solu-Medrol (04/15/20 10:30) Svn Small Volume Nebulizer (04/15/20 10:25) Cbc With Automated Diff (04/15/20 10:25) Hs C Reactive Protein (04/15/20 10:25) Comprehensive Metabolic Panel (04/15/20 10:25) Fibrin Degradation Products (04/15/20 10:25) Procalcitonin (Pct) (04/15/20 10:25) Chest 1 View, Ap/Pa Only (04/15/20 10:25) BNP (04/15/20 10:35) Ct Angio Chest W (04/15/20 11:16) Iohexol Injection (Omnipaque 350 Mg/Ml 1 (04/15/20 11:30) Received Contrast (Hold Metformin- Contr (04/15/20 11:30) Ns (Ivpb) (Sodium Chloride 0.9% Ivpb Bag (04/15/20 11:30) Ns Iv 1000 Ml (Sodium Chloride 0.9%) (04/15/20 11:45) Insulin (Regular) Human (Novolin R (Per (04/15/20 11:45) Apixaban Tablet (Eliquis Tablet) (04/15/20 12:30) Coronavirus Sars-Cov-2 So 2018 (04/15/20 12:34) Medications Given in ED Current Medications Medications Dose Ordered Sig/Eloise Route Start Time Stop Time Status Last Admin Dose Admin Albuterol/ Ipratropium 3 ml ONCE ONCE INH 04/15/20 10:30 04/15/20 10:31 DC 04/15/20 10:37 3 ML Insulin Human Regular 8 unit ONCE ONCE SC 04/15/20 11:45 04/15/20 11:46 DC 04/15/20 12:19 8 UNIT Methylprednisolone Sodium Succinate 125 mg ONCE ONCE IVP 04/15/20 10:30 04/15/20 10:31 DC 04/15/20 10:40 125 MG Vital Signs/I&O 04/15/20 04/15/20 10:10 10:37 Temp 37.0 Pulse 106 Resp 30 B/P (MAP) 163/80 (107) Pulse Ox 95 96 O2 Delivery Room Air Nasal Cannula O2 Flow Rate 2.00 Capillary Refill : Diagnostic Imaging Diagonstic Imaging: Xray Comments NAME: ANA LUJAN [facility] REC#: [id number] PT STATUS: REG ER : 1950 PHYSICIAN: JETHRO RICE APRN ADMIT DATE: 04/15/20/ER Draft Date of Exam:04/15/20 CHEST 1 VIEW, AP/PA ONLY HISTORY: Shortness of breath and wheezing. Asthma. TECHNIQUE: Single frontal view of the chest COMPARISON: 10/05/2019 FINDINGS: The tip of the right Port-A-Cath projects over the mid SVC. Lung volumes are normal. There is linear opacity in the left lung base. Haziness in the lung bases is likely due to overlying soft tissue. The cardiac silhouette is normal in size. No pleural effusion or pneumothorax is seen. IMPRESSION: 1. Linear opacity in the left lung base may represent atelectasis or infiltrate. Dictated on workstation # [id number] Dict: 04/15/20 1058 Trans: 04/15/20 1111 [facility] [id number] Interpreted by: SALVADOR PATTERSON MD Electronically signed by: Departure Communication (Admissions) Time/Spoke to Admitting Phy: 12:[address] Bingham, we'll admit on Eliquis. The patient has had no exposure to ill contacts, she has not had a cough she has not had a headache she has not had fever or chills. Impression Primary Impression: Pulmonary embolism Additional Impression: Hyperglycemia Disposition: ADMITTED INPATIENT Condition: Stable Admissions Decision to Admit Reason: Admit from ER (General) Decision to Admit/Date: Apr 15, 2020 Time/Decision to Admit Time: 12:18 Departure-Patient Inst. Referrals: SABIHA MAXWELL MD (PCP/Family) Primary Care Physician JETHRO RICE APRN Apr 15, 2020 10:28
[2020-04-15] MEDS ORDERED: RT-ALBUTEROL/IPRATROPIUM 3 ML (DUONEB) VIAL INH ONE (10:30)
[2020-04-15] MEDS ORDERED: methylPREDNISolone 125 MG (Solu-MEDROL) VIAL IVP ONE (10:30)
[2020-04-15 10:45] LABS: BASOPHILS % (AUTO) 0 % (0-10); EOSINOPHILS # (AUTO) 0.1 10^3/uL (0.0-0.3); EOSINOPHILS % (AUTO) 2 % (0-10); HEMATOCRIT 41 % (35-52); LYMPHOCYTES # (AUTO) 1.9 X 10^3 (1.0-4.0); LYMPHOCYTES % (AUTO) 20 % (12-44); MEAN CORPUSCULAR HEMOGLOBIN 28 PG (25-34); MEAN CORPUSCULAR HGB CONC 32 G/DL (32-36); MEAN CORPUSCULAR VOLUME 86 FL (80-99); MEAN PLATELET VOLUME 10.5 FL (7.4-10.4); MONOCYTES # (AUTO) 0.5 X 10^3 (0.0-1.0); MONOCYTES % (AUTO) 5 % (0-12); NEUTROPHILS # (AUTO) 6.9 X 10^3 (1.8-7.8); NEUTROPHILS % (AUTO) 73 % (42-75); PLATELET COUNT 218 10^3/uL (130-400); RED CELL DISTRIBUTION WIDTH 15.6 % (10.0-14.5); WHITE BLOOD COUNT 9.4 10^3/uL (4.3-11.0)
--- NOTE | 2020-04-15 11:12 | Diagnostic Imaging Report ---
HISTORY: Shortness of breath and wheezing. Asthma. TECHNIQUE: Single frontal view of the chest COMPARISON: 10/05/2019 FINDINGS: The tip of the right Port-A-Cath projects over the mid SVC. Lung volumes are normal. There is linear opacity in the left lung base. Haziness in the lung bases is likely due to overlying soft tissue. The cardiac silhouette is normal in size. No pleural effusion or pneumothorax is seen. IMPRESSION: 1. Linear opacity in the left lung base may represent atelectasis or infiltrate. Dictated by: Dictated on workstation # [id number]
[2020-04-15 11:23] LABS: ALANINE AMINOTRANSFERASE 19 U/L (0-55); ALBUMIN 3.7 GM/DL (3.2-4.5); ALKALINE PHOSPHATASE 103 U/L (40-136); BILIRUBIN,TOTAL 0.6 MG/DL (0.1-1.0); BUN/CREATININE RATIO 20; CALCIUM 8.9 MG/DL (8.5-10.1); CARBON DIOXIDE 24 MMOL/L (21-32); CHLORIDE 103 MMOL/L (98-107); CREATININE SERUM 0.91 MG/DL (0.60-1.30); GFR ESTIMATED > 60; POTASSIUM 4.1 MMOL/L (3.6-5.0); SODIUM 137 MMOL/L (135-145); TOTAL PROTEIN 6.4 GM/DL (6.4-8.2)
[2020-04-15 11:30] LABS: GLUCOSE 401 MG/DL (70-105)
[2020-04-15] MEDS ORDERED: IOHEXOL 350 MG/ML 100 ML (OMNIPAQUE 350) VIAL IV ONE (11:30)
[2020-04-15] MEDS ORDERED: NS 100 ML (IVPB) BAG IV ONE (11:30)
[2020-04-15] MEDS ORDERED: HOLD METFORMIN - RECEIVED CONTRAST 20 ML VIAL IV SCH (11:30)
[2020-04-15] MEDS ORDERED: NS IV 1000 ML 1,000 ML IV SCH (11:45)
[2020-04-15] MEDS ORDERED: inSUlin (REGULAR) HUMAN 1 UNIT/0.01 ML (CHARGE PER UNIT) SC ONE (11:45)
--- NOTE | 2020-04-15 12:17 | Diagnostic Imaging Report ---
PROCEDURE: CT angiography of the chest with contrast. TECHNIQUE: Multiple contiguous axial images were obtained through the chest after uneventful bolus administration of intravenous contrast. 3D reconstructed CTA MIP acquisitions were also performed. Auto Exposure Controls were utilized during the CT exam to meet ALARA standards for radiation dose reduction. INDICATION: Shortness of breath with elevated d-dimer COMPARISON: Radiographs from the same day FINDINGS: The pulmonary arteries are diagnostic to the segmental level. There is a filling defect in the right lower lobe artery. No other filling defects are seen. The heart is normal in size. There is no pericardial effusion. The main pulmonary artery is normal in size. The aorta appears normal. No mediastinal adenopathy is seen. There are a few groundglass opacities in the dependent lungs, most likely atelectasis. No pleural effusion or pneumothorax is seen. There is no central endobronchial lesion seen. Imaged portions of the upper abdomen demonstrate no acute abnormality. No acute osseous abnormalities seen. IMPRESSION: 1. Pulmonary embolus in the right lower lobe. No evidence of right heart strain. Findings discussed with DANIEL ENRIQUEZ by Dr. Green, on 04/15/2020 12:11 PM. Dictated by: Dictated on workstation # [id number]
[2020-04-15] MEDS ORDERED: APIXABAN 5 MG (ELIQUIS) TABLET PO SCH (12:30)
--- NOTE | 2020-04-15 13:31 | NUR ---
Attempted to call report; no answer
[2020-04-15] MEDS ORDERED: LACTATED RINGERS 1,000 ML IV ONE (13:41)
[2020-04-15 14:15] VITALS: BP 197/102
--- NOTE | 2020-04-15 14:15 | NUR ---
ANA LUJAN admitted to room CU2-1, with an admitting diagnosis of PULMONARY EMBOLISM AND HYPERGLYCEMIA, on 04/15/20 from ER via WHEELCHAIR, accompanied by THIS RN AND FRANK COTO. ANA LUJAN introduced to surroundings, call light, bed controls, phone, TV, temperature control, lights, meal times, smoking policy, visitor policy, side rail policy, bathrooms and showers. Patient Rights given to patient in the handbook. ANA LUJAN verbalizes understanding that [facility] is not responsible for the loss or damage to any personal effects or valuables that are kept in the patients possession during their hospitalization.
[2020-04-15] MEDS: LACTATED RINGERS 1,000 ML IV SCH ×2 (14:54→22:23)
[2020-04-15 15:00] VITALS: BP 170/86
[2020-04-15] MEDS ORDERED: meTOprolol 5 MG/5 ML (LOPRESSOR) VIAL IV PRN (15:15)
[2020-04-15] MEDS ORDERED: DIAZEPAM 5 MG (VALIUM) TABLET PO PRN (15:15)
[2020-04-15 16:00] VITALS: BP 144/58
[2020-04-15] MEDS: inSUlin ASPART (NovoLOG) 1 UNIT/0.01 ML (CHARGE PER UNIT) SC SCH ×2 (16:36→20:45)
[2020-04-15 17:00] VITALS: BP 188/93
[2020-04-15] MEDS ORDERED: hydrALAZINE (APESOLINE) 20 MG/ML VIAL IV PRN (18:45)
[2020-04-15] MEDS ORDERED: ACETAMINOPHEN 325 MG TABLET PO PRN (19:00)
[2020-04-15] MEDS ORDERED: ONDANSETRON 4 MG (ZOFRAN) ORAL DISSOLVE TAB PO PRN (19:00)
[2020-04-15] MEDS ORDERED: MELATONIN 3 MG TABLET PO PRN (19:00)
[2020-04-15] MEDS ORDERED: PATIENT MAY USE OWN MEDS, ALL PO SCH (19:00)
[2020-04-15] MEDS ORDERED: polyethylene glycoL POWDER 17 GM (MIRALAX) PACK PO PRN (19:00)
[2020-04-15] MEDS ORDERED: ONDANSETRON 4 MG/2 ML (SDV) Z0FRAN IV PRN (19:00)
[2020-04-15] MEDS ORDERED: ANTACID SUSP 30 ML UDC (MYLANTA) PO PRN (19:00)
[2020-04-15] MEDS ORDERED: HYDROcodone/APAP 5 MG/325 MG (LORTAB) TAB PO PRN (19:00)
[2020-04-15] MEDS ORDERED: diphenhydrAMINE 25 MG TAB (BENADRYL) PO PRN (19:00)
[2020-04-15] MEDS ORDERED: BISACODYL 10 MG SUPP (DULCOLAX) PR PRN (19:00)
[2020-04-15 20:00] VITALS: BP 136/114
[2020-04-15] MEDS ORDERED: HYDROcodone/APAP 10 MG/325 MG (LORTAB) TAB PO ONE (20:10)
[2020-04-15] MEDS ORDERED: SENNOSIDES 8.6 MG (SENOKOT) TAB ONE (20:10)
[2020-04-15] MEDS ORDERED: OXYBUTYNIN (DITROPAN) 5 MG TAB ONE (20:10)
[2020-04-15] MEDS ORDERED: SIMvastatin 40 MG (ZOCOR) TAB ONE (20:11)
[2020-04-15] MEDS ORDERED: GABAPENTIN 600 MG (NEURONTIN) TAB ONE (20:11)
[2020-04-15] MEDS ORDERED: traZODone 100 MG (DESYREL) TAB ONE (20:11)
[2020-04-15] MEDS ORDERED: MELATONIN 3 MG TABLET ONE (20:11)
[2020-04-15] MEDS: GABAPENTIN 600 MG (NEURONTIN) TAB PO SCH (20:29)
[2020-04-15] MEDS: DOCUSATE SODIUM 100 MG (COLACE) CAP PO SCH (20:29)
[2020-04-15] MEDS: OXYBUTYNIN (DITROPAN) 5 MG TAB PO SCH (20:30)
[2020-04-15] MEDS: APIXABAN 5 MG (ELIQUIS) TABLET PO SCH (20:30)
[2020-04-15] MEDS: SENNOSIDES 8.6 MG (SENOKOT) TAB PO SCH (20:31)
[2020-04-15] MEDS: HYDROcodone/APAP 10 MG/325 MG (LORTAB) TAB PO PRN (20:31)
[2020-04-15] MEDS ORDERED: PRAMIPEXOLE 0.5 MG TAB (MIRAPEX) PO SCH (21:00)
[2020-04-15] MEDS ORDERED: traZODone 100 MG (DESYREL) TAB PO SCH (21:00)
[2020-04-15] MEDS ORDERED: SIMvastatin 40 MG (ZOCOR) TAB PO SCH (21:00)
[2020-04-15] MEDS: PATIENT MAY USE OWN MED,SINGLE MED PO SCH (21:55)
[2020-04-16] VITALS: BP 144/91
[2020-04-16] MEDS: HYDROcodone/APAP 10 MG/325 MG (LORTAB) TAB PO PRN ×4 (00:12→11:46)
[2020-04-16] MEDS: DIAZEPAM 5 MG (VALIUM) TABLET PO PRN ×2 (00:12→08:03)
[2020-04-16 04:00] VITALS: BP 120/86
[2020-04-16 04:48] LABS: BASOPHILS % (AUTO) 0 % (0-10); EOSINOPHILS % (AUTO) 0 % (0-10); HEMATOCRIT 39 % (35-52); HEMOGLOBIN 12.6 G/DL (11.5-16.0); LYMPHOCYTES % (AUTO) 12 % (12-44); MEAN CORPUSCULAR HEMOGLOBIN 28 PG (25-34); MEAN CORPUSCULAR HGB CONC 32 G/DL (32-36); MEAN CORPUSCULAR VOLUME 86 FL (80-99); MEAN PLATELET VOLUME 10.6 FL (7.4-10.4); MONOCYTES # (AUTO) 0.7 X 10^3 (0.0-1.0); MONOCYTES % (AUTO) 4 % (0-12); NEUTROPHILS # (AUTO) 13.4 X 10^3 (1.8-7.8); NEUTROPHILS % (AUTO) 83 % (42-75); PLATELET COUNT 243 10^3/uL (130-400); RED CELL DISTRIBUTION WIDTH 15.6 % (10.0-14.5); WHITE BLOOD COUNT 16.1 10^3/uL (4.3-11.0)
[2020-04-16 05:17] LABS: ALANINE AMINOTRANSFERASE 22 U/L (0-55); ALBUMIN 3.6 GM/DL (3.2-4.5); ALKALINE PHOSPHATASE 97 U/L (40-136); BILIRUBIN,TOTAL 0.7 MG/DL (0.1-1.0); BUN/CREATININE RATIO 19; CALCIUM 9.4 MG/DL (8.5-10.1); CARBON DIOXIDE 22 MMOL/L (21-32); CHLORIDE 105 MMOL/L (98-107); GFR ESTIMATED > 60; GLUCOSE 254 MG/DL (70-105); POTASSIUM 4.1 MMOL/L (3.6-5.0); SODIUM 140 MMOL/L (135-145); TOTAL PROTEIN 6.4 GM/DL (6.4-8.2)
[2020-04-16 05:54] LABS: BAND NEUTROPHILS 6 %; LYMPHOCYTES % (MANUAL) 14 %; MONOCYTES % (MANUAL) 5 %; NEUTROPHILS % (MANUAL) 75 %; RBC MORPH NORMAL
[2020-04-16 08:00] VITALS: BP 158/63
[2020-04-16] MEDS: GABAPENTIN 600 MG (NEURONTIN) TAB PO SCH (08:03)
[2020-04-16] MEDS: SENNOSIDES 8.6 MG (SENOKOT) TAB PO SCH (08:03)
[2020-04-16] MEDS: OXYBUTYNIN (DITROPAN) 5 MG TAB PO SCH (08:03)
[2020-04-16] MEDS: APIXABAN 5 MG (ELIQUIS) TABLET PO SCH (08:04)
[2020-04-16] MEDS: inSUlin ASPART (NovoLOG) 1 UNIT/0.01 ML (CHARGE PER UNIT) SC SCH ×2 (08:04→11:46)
[2020-04-16] MEDS: DOCUSATE SODIUM 100 MG (COLACE) CAP PO SCH (08:04)
[2020-04-16] MEDS: LACTATED RINGERS 1,000 ML IV SCH (08:08)
[2020-04-16] MEDS: PATIENT MAY USE OWN MED,SINGLE MED PO SCH ×2 (08:17→11:48)
[2020-04-16] MEDS ORDERED: APIX5TAB PO (12:32)
--- NOTE | 2020-04-16 12:38 | Discharge Summary ---
Discharge Summary Hospital Course Was the Problem List Reviewed?: Yes Problems/Dx: (1) Pulmonary embolism Status: Acute Qualifiers: Qualified Codes: I26.99 - Other pulmonary embolism without acute cor pulmonale Hospital Course Date of Admission: Apr 15, 2020 at 12:23 Admission Diagnosis : acute pulmonary embolism Family Physician/Provider: Shadi Campos MD Date of Discharge: 04/16/20 Discharge Diagnosis: acute pulmonary embolism Hospital Course: Micki Kelley is a 70-year-old female who presented with shortness of breath and was admitted with acute pulmonary embolism. She underwent a CT scan which revealed a right segmental pulmonary embolism. There is no evidence of right heart strain. She did not require any supplemental oxygen. She was started on Eliquis. She will complete a one-week loading dose of 10 mg twice daily and then decrease to 5 mg twice daily. She should follow-up with her primary care physician in about a week. Labs and Pending Lab Test: Laboratory Tests 04/16/20 04:30: White Blood Count 16.1H, Red Blood Count 4.54, Hemoglobin 12.6, Hematocrit 39, Mean Corpuscular Volume 86, Mean Corpuscular Hemoglobin 28, Mean Corpuscular Hemoglobin Concent 32, Red Cell Distribution Width 15.6H, Platelet Count 243, Mean Platelet Volume 10.6H, Neutrophils (%) (Auto) 83H, Lymphocytes (%) (Auto) 12, Monocytes (%) (Auto) 4, Eosinophils (%) (Auto) 0, Basophils (%) (Auto) 0, Neutrophils # (Auto) 13.4H, Lymphocytes # (Auto) 2.0, Monocytes # (Auto) 0.7, Eosinophils # (Auto) 0.0, Basophils # (Auto) 0.0, Neutrophils % (Manual) 75, Lymphocytes % (Manual) 14, Monocytes % (Manual) 5, Band Neutrophils 6, Blood Morphology Comment NORMAL, Factor V Leiden Mutation [Pending], Factor V Leiden Interpretation [Pending], Sodium Level 140, Potassium Level 4.1, Chloride Level 105, Carbon Dioxide Level 22, Anion Gap 13, Blood Urea Nitrogen 17, Creatinine 0.90, Estimat Glomerular Filtration Rate > 60, BUN/Creatinine Ratio 19, Glucose Level 254H, Calcium Level 9.4, Corrected Calcium 9.7, Total Bilirubin 0.7, Aspartate Amino Transf (AST/SGOT) 15, Alanine Aminotransferase (ALT/SGPT) 22, Alkaline Phosphatase 97, Total Protein 6.4, Albumin 3.6 Home Meds Active Eliquis (Apixaban) 5 Mg Tablet 5 Mg PO BID 30 Days TAKE 2 TABLETS BID X 7 DAYS, THEN 1 TABLET BID Lortab 7.5 Mg Tablet (Acetaminophen/Hydrocodone Bitart) 1 Ea Tablet 1 Each PO Q4H PRN MDD 6 Reported HYDROcodone/APAP 10/325 TABLET (Acetaminophen/Hydrocodone Bitart) 1 Each Tablet 1 Tab PO Q8H PRN Diazepam 5 Mg Tablet 5 Mg PO TID PRN Iron (Ferrous Sulfate) 325 Mg Tablet 325 Mg PO DAILY Trazodone HCl 100 Mg Tablet 100 Mg PO HS Pantoprazole Sodium 40 Mg Tablet.dr 40 Mg PO DAILY PRN Probiotic (Lactobacillus Combo No.10) 1 Each Capsule 1 Cap PO HS Colace (Docusate Sodium) 100 Mg Capsule 100 Mg PO DAILY PRN Vitamin C (Ascorbate Calcium) 500 Mg Tablet 500 Mg PO TID Citalopram HBr (Citalopram Hydrobromide) 20 Mg Tablet 20 Mg PO HS Oxybutynin Chloride ER (Oxybutynin Chloride) 10 Mg Tab.er.24 10 Mg PO DAILY Pramipexole Dihydrochloride (Pramipexole Di-HCl) 0.5 Mg Tablet 1 Mg PO TID TAKES 2 (0.5MG) TABLETS Hydrochlorothiazide 25 Mg Tablet 25 Mg PO DAILY Celecoxib 200 Mg Capsule 200 Mg PO BID Diclofenac Sodium 100 Gm Gel..gram. TOP BID PRN Januvia (Sitagliptin Phosphate) 100 Mg Tablet 100 Mg PO DAILY Gabapentin 600 Mg Tablet 1,800 Mg PO TID TAKES 3 (600MG) TABLETS Miralax (Polyethylene Glycol 3350) 119 Gm Powder 17 Gm PO DAILY Simvastatin 40 Mg Tablet 40 Mg PO HS Assessment/Pt Instructions take medications as prescribed. Begin taking Eliquis as directed for pulmonary embolism. Follow-up with your primary care physician in about a week. Discharge Planning: <30 minutes discharge planning Discharge Instructions Discharge Diet: No Restrictions Activity as Tolerated: Yes Pneumonia Vaccine Order Indica: Yes Discharge Physical Examination Vital Signs Vital Signs Date Time Temp Pulse Resp B/P (MAP) Pulse Ox O2 Delivery O2 Flow Rate FiO2 04/16/20 09:00 High Flow N/C 2.00 04/16/20 08:00 67 30 158/63 (94) 95 04/16/20 07:00 35.4 General Appearance: No Apparent Distress, Obese HEENT: PERRL/EOMI, Pharynx Normal Respiratory: Lungs Clear, Normal Breath Sounds, No Respiratory Distress Cardiovascular: Regular Rate, Rhythm, No Edema, No Murmur Gastrointestinal: Normal Bowel Sounds, Non Tender, Soft Extremity: Normal Inspection, Non Tender, No Pedal Edema Skin: Normal Color, Warm/Dry Neurologic/Psychiatric: Alert, Oriented x3, No Motor/Sensory Deficits, Normal Mood/Affect Allergies: Coded Allergies: No Known Drug Allergies (Unverified , 02/11/14) Copy Copies To 1: SHADI CAMPOS MD Discharge Summary Date of Admission Apr 15, 2020 at 12:23 Date of Discharge Discharge Date: Apr 16, 2020 Discharge Time: 12:37 Admission Diagnosis acute pulmonary embolism Discharge Diagnosis (1) Pulmonary embolism Status: Acute Qualifiers: Qualified Codes: I26.99 - Other pulmonary embolism without acute cor pulmonale Clinical Quality Measures DVT/VTE Risk/Contraindication: Risk Factor Score Per Nursin RFS Level Per Nursing on Admit: 4+=Very High DANICA HERRING MD Apr 16, 2020 12:38
--- NOTE | 2020-04-16 15:50 | NUR ---
ANA LUJAN demonstrates understanding of discharge instructions and accurately returns instructions upon questioning. Copy of Post-Discharge Instructions and Medication Discharge Instructions given to patient. ANA LUJAN is able to manage continuing needs after discharge. Patients belongings returned to patient. Skin dry and intact; no breakdown noted. Patient discharged from [facility]- on 04/16/20 at 1550. ANA LUJAN left floor via wheelchair, accompanied by this RN.
== END 2020-04-16 15:50 | disposition home or self-care (01) ==
LOC: EDUNIT# 09:55 → ER 09:57 → ICU 12:23
PROVIDERS: ADMIT Internal Medicine; ATTEND Internal Medicine
DX: I26.99 Other pulmonary embolism without acute cor pulmonale (principal); E11.65 Type 2 diabetes mellitus with hyperglycemia; J45.909 Unspecified asthma, uncomplicated; G47.30 Sleep apnea, unspecified; E78.00 Pure hypercholesterolemia, unspecified; G25.81 Restless legs syndrome; M19.91 Primary osteoarthritis, unspecified site; M54.9 Dorsalgia, unspecified; F41.9 Anxiety disorder, unspecified; F32.9 Major depressive disorder, single episode, unspecified; E89.0 Postprocedural hypothyroidism; Z90.49 Acquired absence of other specified parts of digestive tract; Z20.828 Contact with and (suspected) exposure to other viral communicable diseases; Z87.01 Personal history of pneumonia (recurrent); Z90.710 Acquired absence of both cervix and uterus; Z79.84 Long term (current) use of oral hypoglycemic drugs; Z90.89 Acquired absence of other organs
CPT/HCPCS: 71045; 71275; 80053 ×2; 81241; 82962 ×2; 83880; 84145; 85007; 85025; 85027; 85379; 86141; 87081; 94640; 99285; G0378; U0002; 36415; 87635

== ENCOUNTER 2020-04-19 17:37 | Emergency (ER) | payer MEDICARE, OTHER ==
[~2020-04-19] VITALS: Ht 167.7 cm; Wt 20.4 kg
[~2020-04-19 17:37] MED LIST changes: +APIX5TAB PO
--- NOTE | 2020-04-19 17:58 | NUR ---
Juan on phone with helper electrical from .
--- NOTE | 2020-04-19 18:08 | ED Cough/URI ---
General Chief Complaint: Respiratory Problems Stated Complaint: SOB Nursing Triage Note: Pt recetnly diagnosed with PE. Pt c/o SOB today. Sepsis Screen: No Definite Risk Source: patient Exam Limitations: no limitations History of Present Illness Date Seen by Provider: Apr 19, 2020 Time Seen by Provider: 18:00 Initial Comments To ER with reports of worsening shortness of breath. She was recently diagnosed with a right lower lobe pulmonary embolism and admitted overnight started on Eliquis. She was never hypoxic. She was discharged next day. She tells me that she called her outside rigger at today and was advised to come to the hospital to be admitted. Timing/Duration: just prior to arrival Associated Symptoms: shortness of breath, wheezing Allergies and Home Medications Allergies Coded Allergies: No Known Drug Allergies (Unverified , 02/11/14) Home Medications Apixaban 5 Mg Tablet, 5 MG PO BID TAKE 2 TABLETS BID X 7 DAYS, THEN 1 TABLET BID Prescribed by: DANICA HERRING on 04/16/20 1232 Ascorbate Calcium 500 Mg Tablet, 500 MG PO TID, (Reported) Celecoxib 200 Mg Capsule, 200 MG PO BID, (Reported) Citalopram Hydrobromide 20 Mg Tablet, 20 MG PO HS, (Reported) Diazepam 5 Mg Tablet, 5 MG PO TID PRN for ANXIETY, (Reported) Diclofenac Sodium 100 Gm Gel..gram., TOP BID PRN for LEG PAIN, (Reported) Docusate Sodium 100 Mg Capsule, 100 MG PO DAILY PRN for CONSTIPATION-1ST LINE, (Reported) Ferrous Sulfate 325 Mg Tablet, 325 MG PO DAILY, (Reported) Gabapentin 600 Mg Tablet, 1,800 MG PO TID, (Reported) TAKES 3 (600MG) TABLETS Hydrochlorothiazide 25 Mg Tablet, 25 MG PO DAILY, (Reported) Hydrocodone Bit/Acetaminophen 1 Each Tablet, 1 TAB PO Q8H PRN for PAIN-MODERATE, (Reported) Hydrocodone Bit/Acetaminophen 1 Ea Tablet, 1 EACH PO Q4H PRN for PAIN-MODERATE Prescribed by: NELSY BOWSER on 09/02/19 1458 Lactobacillus Combo No.10 1 Each Capsule, 1 CAP PO HS, (Reported) Oxybutynin Chloride 10 Mg Tab.er.24, 10 MG PO DAILY, (Reported) Pantoprazole Sodium 40 Mg Tablet.dr, 40 MG PO DAILY PRN for HEARTBURN, (Reported) Polyethylene Glycol 3350 119 Gm Powder, 17 GM PO DAILY, (Reported) Pramipexole Di-HCl 0.5 Mg Tablet, 1 MG PO TID, (Reported) TAKES 2 (0.5MG) TABLETS Simvastatin 40 Mg Tablet, 40 MG PO HS, (Reported) Sitagliptin Phosphate 100 Mg Tablet, 100 MG PO DAILY, (Reported) Trazodone HCl 100 Mg Tablet, 100 MG PO HS, (Reported) Patient Home Medication List Home Medication List Reviewed: Yes Review of Systems Review of Systems Constitutional: see HPI EENTM: see HPI Respiratory: see HPI, cough, short of breath Cardiovascular: no symptoms reported Genitourinary: no symptoms reported Musculoskeletal: no symptoms reported Skin: no symptoms reported Psychiatric/Neurological: No Symptoms Reported Hematologic/Lymphatic: No Symptoms Reported Past Fmlvwra-Pfypzh-Kcqpuw Hx Patient Social History Alcohol Use: Occasionally Uses Recreational Drug Use: No 2nd Hand Smoke Exposure: No Recent Foreign Travel: No Contact w/Someone Who Travel: No Recent Infectious Disease Expo: No Recent Hopitalizations: Yes (PE) Immunizations Up To Date Tetanus Booster (TDap): More than 5yrs Date of Pneumonia Vaccine: Apr 15, 2015 Date of Influenza Vaccine: Jun 25, 2019 Seasonal Allergies Seasonal Allergies: No Past Medical History Surgeries: Yes (R knee replaced x2, port, c/s x3, hernia x5, rotator cuff, ) Abdominal, Appendectomy, Hysterectomy, Joint Replacement, Neurological, Orthopedic, Thyroidectomy, Tonsillectomy Respiratory: Yes Asthma, Pneumonia, Chronic Bronchitis, Pulmonary Embolism, Sleep Apnea Currently Using CPAP: Yes Cardiac: Yes High Cholesterol Neurological: Yes (CHIARI MALFORMATION--SURGICAL REPAIR; RESTLESS LEG SYNDROME) Reproductive Disorders: No Female Reproductive Disorders: Denies 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 CHRONIC ABDOMINAL PAIN) Chronic Constipation, Chronic Diarrhea Musculoskeletal: Yes Arthritis, Chronic Back Pain Endocrine: Yes (BENIGN MASS LEFT THYROID REMOVED 01/01/2013) Diabetes, Non-Insulin dep HEENT: Yes Cataract Loss of Vision: Denies Hearing Impairment: Denies Cancer: No Psychosocial: Yes Anxiety, Depression Integumentary: No Blood Disorders: No Adverse Reaction/Blood Tranf: No Family Medical History Cancer 03 FATHER (PANCREATIC, PASSED AT 65 FROM THIS) Cataract 03 MOTHER Dementia 03 MOTHER Family history: Arthritis 03 MOTHER Family history: Cardiovascular disease 03 MOTHER (HIGH CHOLESTEROL, BALOON ARTERIES 2 TIMES) Hearing loss 03 MOTHER Hypercholesterolemia 03 MOTHER Cancer Physical Exam Vital Signs - First Documented 04/19/20 17:40 Temp 36.9 Pulse 104 Resp 26 B/P (MAP) 178/99 (125) Pulse Ox 96 O2 Delivery Room Air Capillary Refill : Less Than 3 Seconds Height: 5'4.00" Weight: 232lbs. 0.0oz. 105.423969ya; 7.00 BMI Method:Stated General Appearance: WD/WN, no apparent distress, other (Her oxygen saturation is 94 to 97% on room air. Her heart rate is 95. Her blood pressure is 178/100. Wheezing is upper airway sounds forced and only on exhalation. The lower lung valladares are clear.) HEENT: PERRL/EOMI, normal ENT inspection Respiratory: no respiratory distress, accessory muscle use, wheezing (Upper airway only. The lower lung valladares are clear. This is only on exhalation.) Cardiovascular: regular rate, rhythm, no murmur Gastrointestinal: normal bowel sounds, non tender Neurologic/Psychiatric: alert, normal mood/affect Skin: normal color, warm/dry Progress/Results/Core Measures Suspected Sepsis Recent Fever Within 48 Hours: No Infection Criteria Present: None New/Unexplained Altered Menta: No Sepsis Screen: No Definite Risk SIRS Temperature: Pulse: 104 Respiratory Rate: 26 Laboratory Tests 04/19/20 19:12: White Blood Count 11.8H Blood Pressure 178 /99 Mean: 125 Laboratory Tests 04/19/20 19:12: Platelet Count 235 Results/Orders Lab Results Laboratory Tests Test 04/19/20 18:15 04/19/20 19:12 Range/Units Blood Gas Puncture Site RT RAD Blood Gas Patient Temperature 36.9 Arterial Blood pH 7.45 H 7.37-7.43 Arterial Blood Partial Pressure CO2 38 35-45 MMHG Arterial Blood Partial Pressure O2 71 L 79-93 MMHG Arterial Blood HCO3 26 23-27 MMOL/L Arterial Blood Total CO2 27.5 21.0-31.0 MMOL/L Arterial Blood Oxygen Saturation 96 94-100 % Arterial Blood Base Excess 2.6 H -2.5-2.5 MMOL/L Betito Test YES-POS Blood Gas Ventilator Setting NO Blood Gas Inspired Oxygen ROOM AIR White Blood Count 11.8 H 4.3-11.0 10^3/uL Red Blood Count 4.94 4.35-5.85 10^6/uL Hemoglobin 13.5 11.5-16.0 G/DL Hematocrit 42 35-52 % Mean Corpuscular Volume 85 80-99 FL Mean Corpuscular Hemoglobin 27 25-34 PG Mean Corpuscular Hemoglobin Concent 32 32-36 G/DL Red Cell Distribution Width 15.7 H 10.0-14.5 % Platelet Count 235 130-400 10^3/uL Mean Platelet Volume 10.7 H 7.4-10.4 FL Neutrophils (%) (Auto) 73 42-75 % Lymphocytes (%) (Auto) 20 12-44 % Monocytes (%) (Auto) 6 0-12 % Eosinophils (%) (Auto) 1 0-10 % Basophils (%) (Auto) 0 0-10 % Neutrophils # (Auto) 8.6 H 1.8-7.8 X 10^3 Lymphocytes # (Auto) 2.4 1.0-4.0 X 10^3 Monocytes # (Auto) 0.7 0.0-1.0 X 10^3 Eosinophils # (Auto) 0.2 0.0-0.3 10^3/uL Basophils # (Auto) 0.0 0.0-0.1 10^3/uL My Orders Orders - JETHRO RICE APRN Chest Pa/Lat (2 View) (04/19/20 18:05) Arterial Blood Gas (04/19/20 18:17) Cbc With Automated Diff (04/19/20 18:53) Prednisone Tablet (Deltasone Tablet) (04/19/20 19:00) Medications Given in ED Current Medications Medications Dose Ordered Sig/Eloise Route Start Time Stop Time Status Last Admin Dose Admin Prednisone 40 mg ONCE ONCE PO 04/19/20 19:00 04/19/20 19:01 DC 04/19/20 19:20 40 MG Vital Signs/I&O 04/19/20 17:40 Temp 36.9 Pulse 104 Resp 26 B/P (MAP) 178/99 (125) Pulse Ox 96 O2 Delivery Room Air Capillary Refill : Less Than 3 Seconds Blood Pressure Mean: 125 Departure Communication (Admissions) [id number] spoke with Dr. Hood from phonology at the [facility]. He recommends a CBC to evaluate hemoglobin and white count, if normal will give a 7-day course of prednisone 40 mg daily and he will follow-up in the clinic with her. PESI score is 78 correlating with a 30 day mortality rate of 1.5%-3% considered low risk and appropriate for outpatient.She had a negative covid swab just a few days ago. Impression Primary Impression: Dyspnea Disposition: HOME, SELF-CARE Condition: Stable Departure-Patient Inst. Decision time for Depature: 19:32 Referrals: SABIHA MAXWELL MD (PCP/Family) Primary Care Physician Patient Instructions: Shortness of Breath (Dyspnea) (DC) Add. Discharge Instructions: 1. Steroids as directed. Call Dr Hood tomorrow for an appointment tomorrow. All discharge instructions reviewed with patient and/or family. Voiced understanding. Scripts Prednisone (Prednisone) 20 Mg Tab 40 MG PO DAILY, #12 TAB 0 Refills Prov: JETHRO RICE APRN 04/19/20 JETHRO RICE APRN Apr 19, 2020 18:08
[2020-04-19 18:25] LABS: ABG BASE EXCESS 2.6 MMOL/L (-2.5-2.5); ABG OXYGEN SATURATION 96 % (94-100); ABG PCO2 38 MMHG (35-45); ABG PH 7.45 (7.37-7.43); ABG PO2 71 MMHG (79-93); ABG TCO2 27.5 MMOL/L (21.0-31.0)
[2020-04-19 18:26] LABS: ALLENS TEST YES-POS; INSPIRED O2 ROOM AIR; PATIENT TEMP 36.9; VENTILATOR NO
--- NOTE | 2020-04-19 18:32 | Diagnostic Imaging Report ---
CLINICAL INDICATION: Patient recently diagnosed with PE. Patient complains of shortness of breath today. EXAM: Chest x-ray PA and lateral views. COMPARISONS: Chest x-ray dated 04/15/2020. FINDINGS: Again seen discoid atelectasis in the left lung base region. The remainder of the lungs are clear. There is no pleural effusion or pneumothorax. Pulmonary vasculature and cardiac silhouette are within normal limits. There are degenerative spurs involving the thoracic spine. Again seen Port-A-Cath overlying the right chest in stable position. IMPRESSION: Stable chest x-ray exam with left basilar atelectasis. There is no interval lung infiltrate. Dictated by: Dictated on workstation # [id number]
[2020-04-19] MEDS ORDERED: predniSONE 20 MG TAB PO ONE (19:00)
--- NOTE | 2020-04-19 19:04 | NUR ---
Recieved report from GERARDO Tracy to assume care of pt at this time.
[2020-04-19 19:23] LABS: BASOPHILS % (AUTO) 0 % (0-10); EOSINOPHILS # (AUTO) 0.2 10^3/uL (0.0-0.3); EOSINOPHILS % (AUTO) 1 % (0-10); HEMATOCRIT 42 % (35-52); HEMOGLOBIN 13.5 G/DL (11.5-16.0); LYMPHOCYTES # (AUTO) 2.4 X 10^3 (1.0-4.0); LYMPHOCYTES % (AUTO) 20 % (12-44); MEAN CORPUSCULAR HEMOGLOBIN 27 PG (25-34); MEAN CORPUSCULAR HGB CONC 32 G/DL (32-36); MEAN CORPUSCULAR VOLUME 85 FL (80-99); MEAN PLATELET VOLUME 10.7 FL (7.4-10.4); MONOCYTES # (AUTO) 0.7 X 10^3 (0.0-1.0); MONOCYTES % (AUTO) 6 % (0-12); NEUTROPHILS # (AUTO) 8.6 X 10^3 (1.8-7.8); NEUTROPHILS % (AUTO) 73 % (42-75); PLATELET COUNT 235 10^3/uL (130-400); RED CELL DISTRIBUTION WIDTH 15.7 % (10.0-14.5); WHITE BLOOD COUNT 11.8 10^3/uL (4.3-11.0)
[2020-04-19] MEDS ORDERED: PRD20T PO (19:35)
[2020-04-19 19:44] VITALS: BP 135/78
== END 2020-04-19 19:44 | disposition home or self-care (01) ==
LOC: EDUNIT# 17:37 → ER 17:38
DX: R06.00 Dyspnea, unspecified (principal); G89.29 Other chronic pain; M54.9 Dorsalgia, unspecified; E78.00 Pure hypercholesterolemia, unspecified; F32.9 Major depressive disorder, single episode, unspecified; F41.9 Anxiety disorder, unspecified; K59.09 Other constipation; E11.9 Type 2 diabetes mellitus without complications; Z82.49 Family history of ischemic heart disease and other diseases of the circulatory system; Z80.0 Family history of malignant neoplasm of digestive organs; Z79.01 Long term (current) use of anticoagulants; Z79.891 Long term (current) use of opiate analgesic
CPT/HCPCS: 36415; 71046; 82805; 85025

== ENCOUNTER 2020-05-01 09:48 | Emergency (ER) | payer MEDICARE, OTHER ==
[~2020-05-01] VITALS: Ht 160 cm; Wt 102.0 kg
[~2020-05-01 09:48] MED LIST changes: -OXYC-465 PO; +OXYC-556 PO
[2020-05-01 10:18] LABS: BILIRUBIN,URINE NEGATIVE (NEGATIVE); CLARITY,URINE CLOUDY; COLOR,URINE YELLOW; GLUCOSE, URINE (UA) 3+ (NEGATIVE); KETONES,URINE NEGATIVE (NEGATIVE); LEUKOCYTE ESTERASE ,URINE NEGATIVE (NEGATIVE); NITRITE,URINE NEGATIVE (NEGATIVE); PROTEIN,URINE NEGATIVE (NEGATIVE)
--- NOTE | 2020-05-01 10:36 | ED GU-Female ---
General Chief Complaint: General Problems/Pain Stated Complaint: PAIN WITH URINATION Nursing Triage Note: ARRIVED VIA AMB STATES SHE THINKS SHE HAS A UTI DUE TO ALL THE MEDS SHE IS ON FOR HER BLOOD CLOT. IS TO SEE [facility] Apr FOR HER BLOOD CLOT. RECENT ADMIT TO THE [facility] WITH A NEGITIVE COVID TEST. Nursing Sepsis Screen: No Definite Risk Source: patient Exam Limitations: no limitations History of Present Illness Date Seen by Provider: May 01, 2020 Time Seen by Provider: 10:20 Initial Comments The patient presents to ER by private conveyance with chief complaint of a little over one day of dysuria, frequency and urinary hesitancy. She does not have a history of outflow obstruction but she does have a history of UTIs. She is not having any fever nausea vomiting chills. She was started on Eliquis last week for spontaneous pulmonary emboli. She does not have any known reason why. She has a port in no recent surgery or urinary catheterization. The patient states in the past that she has had to have IV antibiotics for her urinary tract infections. Allergies and Home Medications Allergies Coded Allergies: No Known Drug Allergies (Unverified , 02/11/14) Home Medications Apixaban 5 Mg Tablet, 5 MG PO BID TAKE 2 TABLETS BID X 7 DAYS, THEN 1 TABLET BID Prescribed by: DANICA HERRING on 04/16/20 1232 Ascorbate Calcium 500 Mg Tablet, 500 MG PO TID, (Reported) Celecoxib 200 Mg Capsule, 200 MG PO BID, (Reported) Ciprofloxacin HCl 500 Mg Tablet, 500 MG PO BID Prescribed by: GABBIE AZUL on 05/01/20 1125 Citalopram Hydrobromide 20 Mg Tablet, 20 MG PO HS, (Reported) Diazepam 5 Mg Tablet, 5 MG PO TID PRN for ANXIETY, (Reported) Diclofenac Sodium 100 Gm Gel..gram., TOP BID PRN for LEG PAIN, (Reported) Docusate Sodium 100 Mg Capsule, 100 MG PO DAILY PRN for CONSTIPATION-1ST LINE, (Reported) Ferrous Sulfate 325 Mg Tablet, 325 MG PO DAILY, (Reported) Gabapentin 600 Mg Tablet, 1,800 MG PO TID, (Reported) TAKES 3 (600MG) TABLETS Hydrochlorothiazide 25 Mg Tablet, 25 MG PO DAILY, (Reported) Hydrocodone Bit/Acetaminophen 1 Each Tablet, 1 TAB PO Q8H PRN for PAIN-MODERATE, (Reported) Hydrocodone Bit/Acetaminophen 1 Ea Tablet, 1 EACH PO Q4H PRN for PAIN-MODERATE Prescribed by: NELSY BOWSER on 09/02/19 1458 Lactobacillus Combo No.10 1 Each Capsule, 1 CAP PO HS, (Reported) Oxybutynin Chloride 10 Mg Tab.er.24, 10 MG PO DAILY, (Reported) Pantoprazole Sodium 40 Mg Tablet.dr, 40 MG PO DAILY PRN for HEARTBURN, (Reported) Polyethylene Glycol 3350 119 Gm Powder, 17 GM PO DAILY, (Reported) Pramipexole Di-HCl 0.5 Mg Tablet, 1 MG PO TID, (Reported) TAKES 2 (0.5MG) TABLETS Prednisone 20 Mg Tab, 40 MG PO DAILY Prescribed by: JETHRO RICE on 04/19/201934 Simvastatin 40 Mg Tablet, 40 MG PO HS, (Reported) Sitagliptin Phosphate 100 Mg Tablet, 100 MG PO DAILY, (Reported) Trazodone HCl 100 Mg Tablet, 100 MG PO HS, (Reported) Patient Home Medication List Home Medication List Reviewed: Yes Review of Systems Review of Systems Constitutional: No chills, No diaphoresis EENTM: No ear discharge, No ear pain, No blurred vision Respiratory: No cough, No short of breath Cardiovascular: No chest pain, No edema Gastrointestinal: No abdominal pain, No nausea, No vomiting Genitourinary: burning, dysuria, frequency Musculoskeletal: No back pain, No joint pain All Other Systemes Reviewed Negative Unless Noted: Yes Past Mckgalq-Gcnzxf-Minvbb Hx Patient Social History Alcohol Use: Occasionally Uses Recreational Drug Use: No 2nd Hand Smoke Exposure: No Recent Foreign Travel: No Contact w/Someone Who Travel: No Recent Infectious Disease Expo: No Recent Hopitalizations: Yes (PE) Immunizations Up To Date Tetanus Booster (TDap): More than 5yrs Date of Pneumonia Vaccine: Apr 15, 2015 Date of Influenza Vaccine: Jun 25, 2019 Seasonal Allergies Seasonal Allergies: No Past Medical History Surgeries: Yes (R knee replaced x2, port, c/s x3, hernia x5, rotator cuff, ) Abdominal, Appendectomy, Hysterectomy, Joint Replacement, Neurological, Orthopedic, Thyroidectomy, Tonsillectomy Respiratory: Yes Asthma, Pneumonia, Chronic Bronchitis, Pulmonary Embolism, Sleep Apnea Currently Using CPAP: Yes Cardiac: Yes High Cholesterol Neurological: Yes (CHIARI MALFORMATION--SURGICAL REPAIR; RESTLESS LEG SYNDROME) Reproductive Disorders: No Female Reproductive Disorders: Denies 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 CHRONIC ABDOMINAL PAIN) Chronic Constipation, Chronic Diarrhea Musculoskeletal: Yes Arthritis, Chronic Back Pain Endocrine: Yes (BENIGN MASS LEFT THYROID REMOVED 01/01/2013) Diabetes, Non-Insulin dep HEENT: Yes Cataract Loss of Vision: Denies Hearing Impairment: Denies Cancer: No Psychosocial: Yes Anxiety, Depression Integumentary: No Blood Disorders: No Adverse Reaction/Blood Tranf: No Family Medical History Cancer 03 FATHER (PANCREATIC, PASSED AT 65 FROM THIS) Cataract 03 MOTHER Dementia 03 MOTHER Family history: Arthritis 03 MOTHER Family history: Cardiovascular disease 03 MOTHER (HIGH CHOLESTEROL, BALOON ARTERIES 2 TIMES) Hearing loss 03 MOTHER Hypercholesterolemia 03 MOTHER Cancer Physical Exam Vital Signs Vital Signs - First Documented 05/01/20 09:50 Temp 36.8 Pulse 97 Resp 16 B/P (MAP) 157/74 (101) Pulse Ox 96 O2 Delivery Room Air Capillary Refill : Less Than 3 Seconds Height, Weight, BMI Height: 5'4.00" Weight: 232lbs. 0.0oz. 105.857344gh; 39.00 BMI Method:Stated General Appearance: WD/WN, no apparent distress HEENT: PERRL/EOMI, normal ENT inspection, TMs normal, pharynx normal Neck: non-tender, full range of motion, supple, normal inspection Cardiovascular: normal peripheral pulses, regular rate, rhythm Respiratory: lungs clear, normal breath sounds, no respiratory distress, no accessory muscle use Gastrointestinal: normal bowel sounds, non tender, soft Neurologic/Psychiatric: alert, normal mood/affect, oriented x 3 Skin: normal color, warm/dry Progress/Results/Core Measures Suspected Sepsis Recent Fever Within 48 Hours: No Infection Criteria Present: Suspected New Infection New/Unexplained Altered Menta: No Sepsis Screen: No Definite Risk SIRS Temperature: Pulse: 97 Respiratory Rate: 16 Blood Pressure 157 /74 Mean: 101 Results/Orders Lab Results Laboratory Tests Test 05/01/20 10:09 Range/Units Urine Color YELLOW Urine Clarity CLOUDY Urine pH 5.0 5-9 Urine Specific [place] 1.015 L 1.016-1.022 Urine Protein NEGATIVE NEGATIVE Urine Glucose (UA) 3+ H NEGATIVE Urine Ketones NEGATIVE NEGATIVE Urine Nitrite NEGATIVE NEGATIVE Urine Bilirubin NEGATIVE NEGATIVE Urine Urobilinogen 0.2 < = 1.0 MG/DL Urine Leukocyte Esterase NEGATIVE NEGATIVE Urine RBC (Auto) NEGATIVE NEGATIVE Urine RBC NONE /HPF Urine WBC 10-25 H /HPF Urine Squamous Epithelial Cells 0-2 /HPF Urine Crystals NONE /LPF Urine Bacteria NEGATIVE /HPF Urine Casts NONE /LPF Urine Mucus NEGATIVE /LPF Urine Culture Indicated YES My Orders Orders - GABBIE AZUL Ua Culture If Indicated (05/01/20 09:52) Urine Culture (05/01/20 10:09) Ciprofloxacin Iv 400mg/200ml (Cipro Iv S (05/01/20 11:15) Medications Given in ED Current Medications Medications Dose Ordered Sig/Eloise Route Start Time Stop Time Status Last Admin Dose Admin Ciprofloxacin/ Dextrose 200 ml @ 200 mls/hr ONCE ONCE IV 05/01/20 11:15 05/01/20 12:14 DC 05/01/20 11:26 200 MLS/HR Vital Signs/I&O 05/01/20 05/01/20 09:50 12:41 Temp 36.8 36.8 Pulse 97 97 Resp 16 16 B/P (MAP) 157/74 (101) 157/74 (101) Pulse Ox 96 96 O2 Delivery Room Air Capillary Refill : Less Than 3 Seconds Blood Pressure Mean: 101 Progress Note #1: Time: 10:35 Progress Note In 2019 the patient had urine culture with ESBL Escherichia coli that was sensitive to fluoroquinolones and Bactrim. We'll plan to use ciprofloxacin. Heart rate in the 90s but otherwise aseptic vital signs. Heart rate could Also be related to her pulmonary embolisms. Progress Note #2: Time: 11:23 Progress Note The patient would prefer an IV dose of antibiotics before leaving. We will access her port and give her ciprofloxacin. She is not dehydrated and does not need IV fluids. Departure Impression Primary Impression: Urinary tract infection Qualified Codes: N30.00 - Acute cystitis without hematuria Disposition: 01 HOME, SELF-CARE Condition: Stable Departure-Patient Inst. Decision time for Depature: 11:20 Referrals: SABIHA MAXWELL MD (PCP/Family) Primary Care Physician Patient Instructions: Urinary Tract Infection, Adult (DC) Add. Discharge Instructions: Drink plenty fluids. Tylenol 1000 mg every 8 hours as necessary for discomfort. Ciprofloxacin one capsule twice a day for the next 7 days. All discharge instructions reviewed with patient and/or family. Voiced understanding. Scripts Ciprofloxacin HCl (Ciprofloxacin HCl) 500 Mg Tablet 500 MG PO BID for 7 Days, #14 TAB 0 Refills Prov: GABBIE AZUL 05/01/20 GABBIE AZUL May 01, 2020 10:36
[2020-05-01 10:49] LABS: BACTERIA,URINE NEGATIVE /HPF; SQUAMOUS EPITHELIAL CELL,UR 0-2 /HPF
[2020-05-01] MEDS ORDERED: CIPROFLOXACIN IV 400MG/200ML 200 ML IV ONE (11:15)
[2020-05-01] MEDS ORDERED: CIPR500T4 PO (11:25)
[2020-05-01 12:41] VITALS: BP 157/74
== END 2020-05-01 12:42 | disposition home or self-care (01) ==
LOC: EDUNIT# 09:48 → ER 09:49
DX: N39.0 Urinary tract infection, site not specified (principal); J45.909 Unspecified asthma, uncomplicated; E78.00 Pure hypercholesterolemia, unspecified; G89.29 Other chronic pain; M54.9 Dorsalgia, unspecified; E11.9 Type 2 diabetes mellitus without complications; F41.9 Anxiety disorder, unspecified; F32.9 Major depressive disorder, single episode, unspecified; Z82.49 Family history of ischemic heart disease and other diseases of the circulatory system; Z80.9 Family history of malignant neoplasm, unspecified; Z79.52 Long term (current) use of systemic steroids; Z79.01 Long term (current) use of anticoagulants; Z79.891 Long term (current) use of opiate analgesic
CPT/HCPCS: 81000; 87088; 99282

== ENCOUNTER 2020-05-02 10:30 | Outpatient (RCR) | payer MEDICARE, OTHER ==
[2020-02-16 10:48] VITALS: BP 0/0
[2020-02-16 10:56] LABS: HEMOGLOBIN 12.9 G/DL (11.5-16.0); MEAN PLATELET VOLUME 9.8 FL (7.4-10.4); WHITE BLOOD COUNT 8.8 10^3/uL (4.3-11.0)
[2020-02-16 11:17] LABS: ALANINE AMINOTRANSFERASE 21 U/L (0-55); ALBUMIN 3.7 GM/DL (3.2-4.5); ALKALINE PHOSPHATASE 103 U/L (40-136); BILIRUBIN,TOTAL 0.8 MG/DL (0.1-1.0); BUN/CREATININE RATIO 19; CALCIUM 9.5 MG/DL (8.5-10.1); CARBON DIOXIDE 28 MMOL/L (21-32); CHLORIDE 103 MMOL/L (98-107); CREATININE SERUM 0.72 MG/DL (0.60-1.30); GFR ESTIMATED > 60; GLUCOSE 153 MG/DL (70-105); POTASSIUM 4.2 MMOL/L (3.6-5.0); SODIUM 140 MMOL/L (135-145); TOTAL PROTEIN 6.6 GM/DL (6.4-8.2)
[~2020-05-02 10:30] MED LIST changes: +CIPR500T4 PO; +HEParin (CENTRAL IV FLUSH) 500 UNIT/5 ML SYR IV ONE; +HEParin (CENTRAL IV FLUSH) 500 UNIT/5 ML SYR ONE; -PANT40TA3 PO; +PANT40TA52 PO
[2020-05-02 10:45] VITALS: BP 163/70
== END 2020-05-16 | disposition home or self-care (01) ==
LOC: SDC 10:30
DX: Z45.2 Encounter for adjustment and management of vascular access device (principal)
CPT/HCPCS: 36415; 36591; 80053; 83036; 84443; 85027

== ENCOUNTER 2020-05-26 20:06 | Emergency (ER) | payer MEDICARE, OTHER ==
[~2020-05-26] VITALS: Ht 167.7 cm; Wt 69.9 kg
[~2020-05-26 20:06] MED LIST changes: -HEParin (CENTRAL IV FLUSH) 500 UNIT/5 ML SYR IV ONE; -HEParin (CENTRAL IV FLUSH) 500 UNIT/5 ML SYR ONE; +OXC5T PO; -OXYC5TAB96 PO
[2020-05-26] MEDS ORDERED: LACTATED RINGERS 1,000 ML IV ONE (20:26)
--- NOTE | 2020-05-26 20:33 | ED GU-Female ---
General Stated Complaint: CONFUSED/LACK OF MEMORY Source: patient Exam Limitations: no limitations History of Present Illness Date Seen by Provider: May 26, 2020 Time Seen by Provider: 20:18 Initial Comments Patient presents ER by private conveyance from home with her significant other and chief complaint she's been acting confused today. She's had 2 or 3 days of dysuria. She answers all questions appropriately. She has frequent UTIs. She has no nausea fevers or vomiting. She denies having any antipyretics except for the Tylenol in her hydrocodone she routinely takes. She has mild shortness of air however this is because she is on Eliquis for pulmonary embolisms. This is better than it has been in the past. No cough Allergies and Home Medications Allergies Coded Allergies: No Known Drug Allergies (Unverified , 02/11/14) Home Medications Apixaban 5 Mg Tablet, 5 MG PO BID TAKE 2 TABLETS BID X 7 DAYS, THEN 1 TABLET BID Prescribed by: DANICA HERRING on 04/16/20 1232 Ascorbate Calcium 500 Mg Tablet, 500 MG PO TID, (Reported) Celecoxib 200 Mg Capsule, 200 MG PO BID, (Reported) Ciprofloxacin HCl 500 Mg Tablet, 500 MG PO BID Prescribed by: GABBIE AZUL on 05/01/20 1125 Citalopram Hydrobromide 20 Mg Tablet, 20 MG PO HS, (Reported) Diazepam 5 Mg Tablet, 5 MG PO TID PRN for ANXIETY, (Reported) Diclofenac Sodium 100 Gm Gel..gram., TOP BID PRN for LEG PAIN, (Reported) Docusate Sodium 100 Mg Capsule, 100 MG PO DAILY PRN for CONSTIPATION-1ST LINE, (Reported) Ferrous Sulfate 325 Mg Tablet, 325 MG PO DAILY, (Reported) Gabapentin 600 Mg Tablet, 1,800 MG PO TID, (Reported) TAKES 3 (600MG) TABLETS Hydrochlorothiazide 25 Mg Tablet, 25 MG PO DAILY, (Reported) Hydrocodone Bit/Acetaminophen 1 Each Tablet, 1 TAB PO Q8H PRN for PAIN-MODERATE, (Reported) Hydrocodone Bit/Acetaminophen 1 Ea Tablet, 1 EACH PO Q4H PRN for PAIN-MODERATE Prescribed by: NELSY BOWSER on 09/02/19 1458 Lactobacillus Combo No.10 1 Each Capsule, 1 CAP PO HS, (Reported) Oxybutynin Chloride 10 Mg Tab.er.24, 10 MG PO DAILY, (Reported) Pantoprazole Sodium 40 Mg Tablet.dr, 40 MG PO DAILY PRN for HEARTBURN, (Reported) Polyethylene Glycol 3350 119 Gm Powder, 17 GM PO DAILY, (Reported) Pramipexole Di-HCl 0.5 Mg Tablet, 1 MG PO TID, (Reported) TAKES 2 (0.5MG) TABLETS Prednisone 20 Mg Tab, 40 MG PO DAILY Prescribed by: JETHRO RICE on 04/19/201934 Simvastatin 40 Mg Tablet, 40 MG PO HS, (Reported) Sitagliptin Phosphate 100 Mg Tablet, 100 MG PO DAILY, (Reported) Trazodone HCl 100 Mg Tablet, 100 MG PO HS, (Reported) Patient Home Medication List Home Medication List Reviewed: Yes Review of Systems Review of Systems Constitutional: No chills, No diaphoresis EENTM: No ear discharge, No ear pain Respiratory: No cough, No short of breath Cardiovascular: No chest pain, No palpitations Gastrointestinal: No abdominal pain, No nausea, No vomiting Genitourinary: denies burning, denies dysuria Musculoskeletal: No back pain, No joint pain All Other Systemes Reviewed Negative Unless Noted: Yes Past Reotixy-Ghzfbk-Nqjtov Hx Patient Social History Alcohol Use: Denies Use Recreational Drug Use: No Smoking Status: Never a Smoker 2nd Hand Smoke Exposure: No Recent Foreign Travel: No Contact w/Someone Who Travel: No Recent Hopitalizations: Yes (PE) Immunizations Up To Date Tetanus Booster (TDap): More than 5yrs Date of Pneumonia Vaccine: Apr 15, 2015 Date of Influenza Vaccine: Jun 25, 2019 Seasonal Allergies Seasonal Allergies: No Past Medical History Surgeries: Yes (R knee replaced x2, port, c/s x3, hernia x5, rotator cuff, ) Abdominal, Appendectomy, Hysterectomy, Joint Replacement, Neurological, Orthopedic, Thyroidectomy, Tonsillectomy Respiratory: Yes Asthma, Pneumonia, Chronic Bronchitis, Pulmonary Embolism, Sleep Apnea Currently Using CPAP: Yes Cardiac: Yes High Cholesterol Neurological: Yes (CHIARI MALFORMATION--SURGICAL REPAIR; RESTLESS LEG SYNDROME) Reproductive Disorders: No Female Reproductive Disorders: 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 CHRONIC ABDOMINAL PAIN) Chronic Constipation, Chronic Diarrhea Musculoskeletal: Yes Arthritis, Chronic Back Pain Endocrine: Yes (BENIGN MASS LEFT THYROID REMOVED 01/01/2013) Diabetes, Non-Insulin dep HEENT: Yes Cataract Loss of Vision: Denies Hearing Impairment: Denies Cancer: No Psychosocial: Yes Anxiety, Depression Integumentary: No Blood Disorders: No Adverse Reaction/Blood Tranf: No Family Medical History Cancer 03 FATHER (PANCREATIC, PASSED AT 65 FROM THIS) Cataract 03 MOTHER Dementia 03 MOTHER Family history: Arthritis 03 MOTHER Family history: Cardiovascular disease 03 MOTHER (HIGH CHOLESTEROL, BALOON ARTERIES 2 TIMES) Hearing loss 03 MOTHER Hypercholesterolemia 03 MOTHER Cancer Physical Exam Vital Signs Capillary Refill : Height, Weight, BMI Height: 5'4.00" Weight: 232lbs. 0.0oz. [id number]; 39.00 BMI Method:Stated General Appearance: WD/WN, no apparent distress HEENT: PERRL/EOMI; No pharynx normal (dry oral mucosa) Neck: full range of motion, supple, normal inspection Cardiovascular: normal peripheral pulses, regular rate, rhythm Respiratory: lungs clear, normal breath sounds, no respiratory distress, no accessory muscle use Gastrointestinal: normal bowel sounds, non tender, soft Neurologic/Psychiatric: alert, normal mood/affect, oriented x 3 Skin: normal color, warm/dry Progress/Results/Core Measures Suspected Sepsis SIRS Temperature: Pulse: Respiratory Rate: Laboratory Tests 05/26/20 21:15: White Blood Count 10.7 Blood Pressure / Mean: Laboratory Tests 05/26/20 21:15: Creatinine 1.01, Platelet Count 199, Total Bilirubin 1.6H Results/Orders Lab Results Laboratory Tests Test 05/26/20 20:55 05/26/20 21:15 Range/Units Urine Color YELLOW Urine Clarity CLOUDY Urine pH 7.0 5-9 Urine Specific [place] 1.010 L 1.016-1.022 Urine Protein 2+ H NEGATIVE Urine Glucose (UA) NEGATIVE NEGATIVE Urine Ketones NEGATIVE NEGATIVE Urine Nitrite NEGATIVE NEGATIVE Urine Bilirubin NEGATIVE NEGATIVE Urine Urobilinogen 1.0 < = 1.0 MG/DL Urine Leukocyte Esterase 3+ H NEGATIVE Urine RBC (Auto) 3+ H NEGATIVE Urine RBC 10-25 H /HPF Urine WBC TNTC H /HPF Urine Squamous Epithelial Cells RARE /HPF Urine Crystals NONE /LPF Urine Bacteria LARGE H /HPF Urine Casts NONE /LPF Urine Mucus NEGATIVE /LPF Urine Culture Indicated YES White Blood Count 10.7 4.3-11.0 10^3/uL Red Blood Count 4.70 3.80-5.11 10^6/uL Hemoglobin 12.7 11.5-16.0 g/dL Hematocrit 40 35-52 % Mean Corpuscular Volume 85 80-99 fL Mean Corpuscular Hemoglobin 27 25-34 pg Mean Corpuscular Hemoglobin Concent 32 32-36 g/dL Red Cell Distribution Width 14.9 H 10.0-14.5 % Platelet Count 199 130-400 10^3/uL Mean Platelet Volume 10.3 9.0-12.2 fL Immature Granulocyte % (Auto) 1 % Neutrophils (%) (Auto) 81 H 42-75 % Lymphocytes (%) (Auto) 11 L 12-44 % Monocytes (%) (Auto) 6 0-12 % Eosinophils (%) (Auto) 0 0-10 % Basophils (%) (Auto) 0 0-10 % Neutrophils # (Auto) 8.7 H 1.8-7.8 10^3/uL Lymphocytes # (Auto) 1.2 1.0-4.0 10^3/uL Monocytes # (Auto) 0.7 0.0-1.0 10^3/uL Eosinophils # (Auto) 0.0 0.0-0.3 10^3/uL Basophils # (Auto) 0.0 0.0-0.1 10^3/uL Immature Granulocyte # (Auto) 0.1 0.0-0.1 10^3/uL Sodium Level 134 L 135-145 MMOL/L Potassium Level 4.1 3.6-5.0 MMOL/L Chloride Level 99 98-107 MMOL/L Carbon Dioxide Level 23 21-32 MMOL/L Anion Gap 12 5-14 MMOL/L Blood Urea Nitrogen 17 7-18 MG/DL Creatinine 1.01 0.60-1.30 MG/DL Estimat Glomerular Filtration Rate 55 BUN/Creatinine Ratio 17 Glucose Level 264 H 70-105 MG/DL Calcium Level 9.0 8.5-10.1 MG/DL Corrected Calcium 9.3 8.5-10.1 MG/DL Total Bilirubin 1.6 H 0.1-1.0 MG/DL Aspartate Amino Transf (AST/SGOT) 43 H 5-34 U/L Alanine Aminotransferase (ALT/SGPT) 32 0-55 U/L Alkaline Phosphatase 148 H 40-136 U/L Total Protein 6.5 6.4-8.2 GM/DL Albumin 3.6 3.2-4.5 GM/DL My Orders Orders - LATHAGABBIE Shayla Ed Iv/Invasive Line Start (05/26/20 20:26) Lactated Ringers (Lr 1000 Ml Iv Solution (05/26/20 20:26) Cbc With Automated Diff (05/26/20 20:26) Comprehensive Metabolic Panel (05/26/20 20:26) Ua Culture If Indicated (05/26/20 20:26) Straight Cath For Spec.-Adult (05/26/20 20:26) Urine Culture (05/26/20 20:55) Ceftriaxone For Iv Use (Rocephin For I (05/26/20 21:30) Ondansetron Injection (Zofran Injectio (05/26/20 21:40) Medications Given in ED Current Medications Medications Dose Ordered Sig/Eloise Route Start Time Stop Time Status Last Admin Dose Admin Ceftriaxone Sodium 1000 mg/ Sterile Water 10 ml @ 200 mls/hr ONCE ONCE IV 05/26/20 21:30 05/26/20 21:32 DC 05/26/20 21:46 200 MLS/HR Lactated Ringer's 1,000 ml @ 0 mls/hr Q0M ONCE IV 05/26/20 20:26 05/26/20 20:27 DC 05/26/20 21:02 999 MLS/HR Ondansetron HCl 4 mg STK-MED ONCE .ROUTE 05/26/20 21:40 05/26/20 21:46 DC 05/26/20 21:49 8 MG Vital Signs/I&O Capillary Refill : Progress Note : Time: 20:32 Progress Note Because her heart rates 100 and she has dry oral mucosa or any give her a liter of lactated Ringer's. Check some basic labs and get a urinalysis by straight catheter. Departure Impression Primary Impression: Urinary tract infection Qualified Codes: N30.01 - Acute cystitis with hematuria Additional Impression: Delirium due to another medical condition Disposition: HOME, SELF-CARE Condition: Stable Departure-Patient Inst. Decision time for Depature: 22:28 Referrals: SABIHA MAXWELL MD (PCP/Family) Primary Care Physician Patient Instructions: Delirium (Confusion), Urinary Tract Infection, Adult (DC) Add. Discharge Instructions: Drink plenty of fluids. If you get nauseated take one tablet of Zofran under the tongue every 6 hours as necessary. Take the antibiotics starting tomorrow one capsule of Keflex twice a day with food. If your symptoms worsen you are not able to take the medicine or if you have fever then you should return to the nearest ER. Plan to follow-up early next week with Dr. Maxwell and discussed the results of the urine culture. Delirium is confusion associated with the infection that will come and go and tends to get worst towards evening. The treatment is to treat the underlying infection and keep you are familiar place such as at home. Scripts Cefdinir (Cefdinir) 300 Mg Capsule 300 MG PO BID for 7 Days, #14 CAP 0 Refills Prov: GABBIE AZUL 05/26/20 GABBIE AZUL May 26, 2020 20:33
[2020-05-26 21:06] LABS: BILIRUBIN,URINE NEGATIVE (NEGATIVE); CLARITY,URINE CLOUDY; COLOR,URINE YELLOW; GLUCOSE, URINE (UA) NEGATIVE (NEGATIVE); KETONES,URINE NEGATIVE (NEGATIVE); LEUKOCYTE ESTERASE ,URINE 3+ (NEGATIVE); NITRITE,URINE NEGATIVE (NEGATIVE); PROTEIN,URINE 2+ (NEGATIVE)
[2020-05-26 21:13] LABS: BACTERIA,URINE LARGE /HPF; SQUAMOUS EPITHELIAL CELL,UR RARE /HPF; WBC,URINE TNTC /HPF
[2020-05-26 21:22] LABS: BASOPHILS % (AUTO) 0 % (0-10); EOSINOPHILS % (AUTO) 0 % (0-10); HEMATOCRIT 40 % (35-52); HEMOGLOBIN 12.7 g/dL (11.5-16.0); LYMPHOCYTES # (AUTO) 1.2 10^3/uL (1.0-4.0); LYMPHOCYTES % (AUTO) 11 % (12-44); MEAN CORPUSCULAR HEMOGLOBIN 27 pg (25-34); MEAN CORPUSCULAR HGB CONC 32 g/dL (32-36); MEAN CORPUSCULAR VOLUME 85 fL (80-99); MEAN PLATELET VOLUME 10.3 fL (9.0-12.2); MONOCYTES # (AUTO) 0.7 10^3/uL (0.0-1.0); MONOCYTES % (AUTO) 6 % (0-12); NEUTROPHILS # (AUTO) 8.7 10^3/uL (1.8-7.8); NEUTROPHILS % (AUTO) 81 % (42-75); PLATELET COUNT 199 10^3/uL (130-400); WHITE BLOOD COUNT 10.7 10^3/uL (4.3-11.0)
[2020-05-26] MEDS ORDERED: cefTRIAXone FOR IV USE 1,000 MG in WATER (STERILE) FOR INJECTION 10 ML IV ONE (21:30)
[2020-05-26 21:33] LABS: ALBUMIN 3.6 GM/DL (3.2-4.5)
[2020-05-26 21:34] LABS: POTASSIUM 4.1 MMOL/L (3.6-5.0)
[2020-05-26 21:36] LABS: TOTAL PROTEIN 6.5 GM/DL (6.4-8.2)
[2020-05-26 21:38] LABS: BILIRUBIN,TOTAL 1.6 MG/DL (0.1-1.0)
[2020-05-26 21:40] LABS: CREATININE SERUM 1.01 MG/DL (0.60-1.30)
[2020-05-26] MEDS ORDERED: ONDANSETRON 4 MG/2 ML (SDV) Z0FRAN ONE (21:40)
[2020-05-26] MEDS ORDERED: CEFD300C3 PO (22:31)
[2020-05-26 22:49] VITALS: BP 111/52
[2020-05-31] MEDS ORDERED: HYDR-3820 PO (13:14)
[2020-05-31] MEDS ORDERED: MONT10TA26 PO (13:14)
[2020-05-31] MEDS ORDERED: RT-ALBUINH INH (13:14)
[2020-05-31] MEDS ORDERED: DICY10CA12 PO (13:14)
[2020-05-31] MEDS ORDERED: CEFD300C3 PO (13:14)
[2020-05-31] MEDS ORDERED: AMIT75TA2 PO (13:14)
[2020-05-31] MEDS ORDERED: GLIP10TA13 PO (13:14)
[2020-05-31] MEDS ORDERED: APIX5TAB PO (13:14)
[2020-05-31] MEDS ORDERED: NF-ZOL12.5 PO (13:14)
[2020-05-31] MEDS ORDERED: ALPR0.5T7 PO (13:14)
[2020-05-31] MEDS ORDERED: PRAM1TAB5 PO (13:14)
[2020-06-01] MEDS ORDERED: DEXA6TAB PO (10:49)
== END 2020-05-26 22:49 | disposition home or self-care (01) ==
LOC: EDUNIT# 20:06 → ER 20:10
DX: N39.0 Urinary tract infection, site not specified (principal); F05 Delirium due to known physiological condition; J45.909 Unspecified asthma, uncomplicated; E78.00 Pure hypercholesterolemia, unspecified; E11.9 Type 2 diabetes mellitus without complications; G89.29 Other chronic pain; M54.9 Dorsalgia, unspecified; F41.9 Anxiety disorder, unspecified; F32.9 Major depressive disorder, single episode, unspecified; Z82.49 Family history of ischemic heart disease and other diseases of the circulatory system; Z82.61 Family history of arthritis; Z80.0 Family history of malignant neoplasm of digestive organs; Z86.711 Personal history of pulmonary embolism; Z79.52 Long term (current) use of systemic steroids; Z79.01 Long term (current) use of anticoagulants; Z79.891 Long term (current) use of opiate analgesic
CPT/HCPCS: 36415; 51701; 80053; 81000; 85025; 87077; 87088; 87186

== ENCOUNTER 2020-07-24 16:35 | Emergency (ER) | payer MEDICARE, OTHER ==
[~2020-07-24] VITALS: Ht 167.7 cm; Wt 95.2 kg
[~2020-07-24 16:35] MED LIST changes: +ALPR0.5T7 PO; +AMIT75TA2 PO; -ASCO500C15 PO; +ASCO500C18 PO; +DEXA6TAB PO; +GLIP10TA13 PO; +HYDR-3820 PO; +MONT10TA26 PO; +PRAM1TAB5 PO
[2020-07-24] MEDS ORDERED: ONDANSETRON 4 MG/2 ML (SDV) Z0FRAN IVP ONE (17:15)
[2020-07-24] MEDS ORDERED: NS IV 1000 ML 1,000 ML IV SCH (17:15)
--- NOTE | 2020-07-24 17:18 | ED General ---
General Chief Complaint: Neurological Problems Stated Complaint: LEG PAIN, VOMIT Source of Information: Patient Exam Limitations: No Limitations History of Present Illness Date Seen by Provider: Jul 24, 2020 Time Seen by Provider: 17:16 Initial Comments ER by EMS from home with reports of nausea and vomiting this morning, she complains of a worsening of her chronic knee pain. She states she is needing to have both knees replaced. No fevers or chills or abdominal pain. Timing/Duration: 1-2 Days Severity: Moderate Associated Systoms: Nausea/Vomiting Allergies and Home Medications Allergies Coded Allergies: No Known Drug Allergies (Unverified , 02/11/14) Home Medications Albuterol Sulfate 1 Puff Puff, 2 PUFF INH Q6H PRN for SHORTNESS OF BREATH, (Reported) Alprazolam 0.5 Mg Tablet, 0.5 MG PO TID PRN for ANXIETY, (Reported) Amitriptyline HCl 75 Mg Tablet, 75 MG PO HS, (Reported) Apixaban 5 Mg Tablet, 5 MG PO BID, (Reported) Ascorbate Calcium 500 Mg Tablet, 500 MG PO DAILY, (Reported) Celecoxib 200 Mg Capsule, 200 MG PO DAILY, (Reported) Citalopram Hydrobromide 20 Mg Tablet, 20 MG PO HS, (Reported) Dexamethasone 6 Mg Tablet, 6 MG PO DAILY Prescribed by: HONORIO HAMPTON on 06/01/20 1049 Dicyclomine HCl 10 Mg Capsule, 10 MG PO TID PRN for SPASMS, (Reported) Ferrous Sulfate 325 Mg Tablet, 325 MG PO DAILY, (Reported) Gabapentin 600 Mg Tablet, 600 MG PO TID, (Reported) Glipizide 10 Mg Tablet, 10 MG PO DAILY, (Reported) Hydrochlorothiazide 25 Mg Tablet, 25 MG PO DAILY, (Reported) Hydrocodone/Acetaminophen 1 Each Tablet, 1 EA PO Q6H PRN for PAIN-MODERATE (5- 7), (Reported) Lactobacillus Combo No.10 1 Each Capsule, 1 CAP PO DAILY, (Reported) Montelukast Sodium 10 Mg Tablet, 10 MG PO DAILY, (Reported) Pantoprazole Sodium 40 Mg Tablet.dr, 40 MG PO DAILY PRN for HEARTBURN, (Reported) Pramipexole Di-HCl 1 Mg Tablet, 1 MG PO TID, (Reported) Zolpidem Tartrate 12.5 Mg Tab.mphase, 12.5 MG PO HS, (Reported) Patient Home Medication List Home Medication List Reviewed: Yes Review of Systems Review of Systems Constitutional: see HPI EENTM: see HPI Respiratory: no symptoms reported Cardiovascular: no symptoms reported Gastrointestinal: nausea, vomiting Genitourinary: no symptoms reported Musculoskeletal: no symptoms reported Skin: no symptoms reported Psychiatric/Neurological: No Symptoms Reported Hematologic/Lymphatic: No Symptoms Reported Past Tvyagff-Skoypy-Rhcgop Hx Patient Social History 2nd Hand Smoke Exposure: No Recent Foreign Travel: No Contact w/Someone Who Travel: No Recent Hopitalizations: Yes (PE) Immunizations Up To Date Tetanus Booster (TDap): More than 5yrs Date of Pneumonia Vaccine: Apr 15, 2015 Date of Influenza Vaccine: Jun 25, 2019 Seasonal Allergies Seasonal Allergies: No Past Medical History Surgeries: Yes (R knee replaced x2, port, c/s x3, hernia x5, rotator cuff, ) Abdominal, Appendectomy, Hysterectomy, Joint Replacement, Neurological, Orthopedic, Thyroidectomy, Tonsillectomy Respiratory: Yes Asthma, Pneumonia, Chronic Bronchitis, Pulmonary Embolism, Sleep Apnea Currently Using CPAP: Yes Cardiac: Yes High Cholesterol Neurological: Yes (CHIARI MALFORMATION--SURGICAL REPAIR; RESTLESS LEG SYNDROME) Reproductive Disorders: No Female 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 CHRONIC ABDOMINAL PAIN) Chronic Constipation, Chronic Diarrhea Musculoskeletal: Yes Arthritis, Chronic Back Pain Endocrine: Yes (BENIGN MASS LEFT THYROID REMOVED 01/01/2013) Diabetes, Non-Insulin dep HEENT: Yes Cataract Loss of Vision: Denies Hearing Impairment: Denies Cancer: No Psychosocial: Yes Anxiety, Depression Integumentary: No Blood Disorders: No Adverse Reaction/Blood Tranf: No Family Medical History Cancer 03 FATHER (PANCREATIC, PASSED AT 65 FROM THIS) Cataract 03 MOTHER Dementia 03 MOTHER Family history: Arthritis 03 MOTHER Family history: Cardiovascular disease 03 MOTHER (HIGH CHOLESTEROL, BALOON ARTERIES 2 TIMES) Hearing loss 03 MOTHER Hypercholesterolemia 03 MOTHER Cancer Physical Exam Vital Signs Vital Signs - First Documented 07/24/20 16:56 Temp 36.4 Pulse 113 Resp 20 B/P (MAP) 157/79 (105) Pulse Ox 94 O2 Delivery Room Air Capillary Refill : Height, Weight, BMI Height: 5'4.00" Weight: 232lbs. 0.0oz. 105.218373fo; 39.80 BMI Method:Stated General Appearance: No Apparent Distress, WD/WN Eyes: Bilateral Eye Normal Inspection, Bilateral Eye PERRL, Bilateral Eye EOMI Respiratory: Lungs Clear, Normal Breath Sounds, No Accessory Muscle Use, No Respiratory Distress Cardiovascular: Normal Peripheral Pulses, Tachycardia (105) Gastrointestinal: Non Tender, Soft, Abnormal Bowel Sounds (hypoactive) Extremity: Normal Capillary Refill, Normal Inspection Neurologic/Psychiatric: Alert, Oriented x3 Skin: Normal Color, Warm/Dry Progress/Results/Core Measures Suspected Sepsis SIRS Temperature: Pulse: Respiratory Rate: Laboratory Tests 07/24/20 17:54: White Blood Count 9.5 Blood Pressure / Mean: Laboratory Tests 07/24/20 17:54: Creatinine 0.81, Platelet Count 179, Total Bilirubin 2.2H Results/Orders Lab Results Laboratory Tests Test 07/24/20 17:54 07/24/20 18:55 Range/Units White Blood Count 9.5 4.3-11.0 10^3/uL Red Blood Count 4.77 3.80-5.11 10^6/uL Hemoglobin 12.7 11.5-16.0 g/dL Hematocrit 41 35-52 % Mean Corpuscular Volume 86 80-99 fL Mean Corpuscular Hemoglobin 27 25-34 pg Mean Corpuscular Hemoglobin Concent 31 L 32-36 g/dL Red Cell Distribution Width 15.9 H 10.0-14.5 % Platelet Count 179 130-400 10^3/uL Mean Platelet Volume 9.8 9.0-12.2 fL Immature Granulocyte % (Auto) 1 % Neutrophils (%) (Auto) 84 H 42-75 % Lymphocytes (%) (Auto) 9 L 12-44 % Monocytes (%) (Auto) 6 0-12 % Eosinophils (%) (Auto) 0 0-10 % Basophils (%) (Auto) 0 0-10 % Neutrophils # (Auto) 7.9 H 1.8-7.8 10^3/uL Lymphocytes # (Auto) 0.9 L 1.0-4.0 10^3/uL Monocytes # (Auto) 0.6 0.0-1.0 10^3/uL Eosinophils # (Auto) 0.0 0.0-0.3 10^3/uL Basophils # (Auto) 0.0 0.0-0.1 10^3/uL Immature Granulocyte # (Auto) 0.1 0.0-0.1 10^3/uL Sodium Level 133 L 135-145 MMOL/L Potassium Level 3.8 3.6-5.0 MMOL/L Chloride Level 96 L 98-107 MMOL/L Carbon Dioxide Level 26 21-32 MMOL/L Anion Gap 11 5-14 MMOL/L Blood Urea Nitrogen 10 7-18 MG/DL Creatinine 0.81 0.60-1.30 MG/DL Estimat Glomerular Filtration Rate > 60 BUN/Creatinine Ratio 12 Glucose Level 286 H 70-105 MG/DL Calcium Level 8.8 8.5-10.1 MG/DL Corrected Calcium 9.2 8.5-10.1 MG/DL Total Bilirubin 2.2 H 0.1-1.0 MG/DL Aspartate Amino Transf (AST/SGOT) 15 5-34 U/L Alanine Aminotransferase (ALT/SGPT) 18 0-55 U/L Alkaline Phosphatase 134 40-136 U/L Total Protein 6.4 6.4-8.2 GM/DL Albumin 3.5 3.2-4.5 GM/DL Lipase 12 8-78 U/L Urine Color ORANGE Urine Clarity [place] CLOUDY Urine pH 6.0 5-9 Urine Specific [place] 1.025 H 1.016-1.022 Urine Protein 1+ H NEGATIVE Urine Glucose (UA) NEGATIVE NEGATIVE Urine Ketones TRACE H NEGATIVE Urine Nitrite POSITIVE H NEGATIVE Urine Bilirubin NEGATIVE NEGATIVE Urine Urobilinogen 0.2 < = 1.0 MG/DL Urine Leukocyte Esterase 3+ H NEGATIVE Urine RBC (Auto) 3+ H NEGATIVE Urine RBC 10-25 H /HPF Urine WBC >100 H /HPF Urine Crystals NONE /LPF Urine Bacteria LARGE H /HPF Urine Casts NONE /LPF Urine Mucus NEGATIVE /LPF Urine Culture Indicated YES My Orders Orders - JETHRO RICE APRN Ct Head Wo (07/24/20 17:14) Chest 1 View, Ap/Pa Only (07/24/20 17:14) Ct Abdomen/Pelvis Wo (07/24/20 17:14) Lipase (07/24/20 17:14) Ua Culture If Indicated (07/24/20 17:14) Cbc With Automated Diff (07/24/20 17:14) Comprehensive Metabolic Panel (07/24/20 17:14) Ed Iv/Invasive Line Start (07/24/20 17:14) Ondansetron Injection (Zofran Injectio (07/24/20 17:15) Ns Iv 1000 Ml (Sodium Chloride 0.9%) (07/24/20 17:15) Urine Culture (07/24/20 18:55) Ceftriaxone For Iv Use (Rocephin For I (07/24/20 19:45) Levofloxacin Tablet (Levaquin Tablet) (07/24/20 19:45) Medications Given in ED Current Medications Medications Dose Ordered Sig/Eloise Route Start Time Stop Time Status Last Admin Dose Admin Ondansetron HCl 8 mg ONCE ONCE IVP 07/24/20 17:15 07/24/20 17:16 DC 07/24/20 17:52 8 MG Vital Signs/I&O 07/24/20 16:56 Temp 36.4 Pulse 113 Resp 20 B/P (MAP) 157/79 (105) Pulse Ox 94 O2 Delivery Room Air Capillary Refill : Diagnostic Imaging Diagonstic Imaging: CT Comments NAME: TAIANA R [facility] REC#: [id number] PT STATUS: REG ER : 1950 PHYSICIAN: JETHRO RICE APRN ADMIT DATE: 07/24/20/ER Draft Date of Exam:07/24/20 CT ABDOMEN/PELVIS WO Clinical indication: Patient with nausea and vomiting. Exam: CT exam of the abdomen and pelvis is performed without IV or oral contrast using stone protocol. Coronal and sagittal reformatted images were created. Auto Exposure Controls were utilized during the CT exam to meet ALARA standards for radiation dose reduction. Comparisons: CT scan of the abdomen and pelvis performed without contrast dated 05/11/2015. Findings: There is mild atelectasis involving the posterior aspect of both lung bases. There is lower lumbar spine facet arthropathy. There are small degenerative spurs involving the visualized lower thoracic spine and lumbar spine. 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 Liver is otherwise unremarkable. The spleen, pancreas, adrenal glands are unremarkable and stable. Again noted fatty infiltration of the pancreatic head region. The gallbladder is not visualized and there is no surgical clips seen in the expected region. Gallbladder may be surgically resected and less likely markedly decompressed. Mild fat stranding adjacent to both kidneys are again noted which has slightly increased in interim. Kidneys are otherwise unremarkable with no stones, visible masses, or hydronephrosis. Bladder is fluid-filled and grossly unremarkable. The uterus is surgically absent. The left ovary is unremarkable. The right ovary is not visualized and may be surgically resected. There is no intra-abdominal free air or free fluid. There is no lymphadenopathy. There is no intestinal obstruction. There is diverticulosis involving the sigmoid colon with no CT evidence of diverticulitis. There is moderate amount of stool involving the transverse colon and left colon. The cecum is in the right upper quadrant region. The appendix is not visualized and may be surgically absent. There is no inflammation involving the cecum. There is no intestinal obstruction. Previously seen inflammation involving the anterior abdominal wall has predominantly resolved with residual scarring noted. The extra-abdominal and extrapelvic soft tissue structures show no other significant abnormality. IMPRESSION: 1.: There is no definite interval evidence of acute abdominal or pelvic process. There is no intestinal obstruction, intra-abdominal free air or free fluid. 2: There is moderate amount of stool involving the transverse colon and descending colon. 3: There is diverticulosis with no CT evidence of diverticulitis. 4: There is no other significant interval abnormality seen. Dictated on workstation # [id number] Dict: 07/24/20 1814 Trans: 07/24/20 1835 [facility] [id number] Interpreted by: LU GRAY MD Electronically signed by: Departure Impression Primary Impression: Urinary tract infection Qualified Codes: N30.00 - Acute cystitis without hematuria Disposition: HOME, SELF-CARE Condition: Stable Departure-Patient Inst. Decision time for Depature: 19:46 Referrals: SABIHA MAXWELL MD (PCP/Family) Primary Care Physician Patient Instructions: Urinary Tract Infection, Adult (DC) Add. Discharge Instructions: 1. Medication as directed 2. Follow up with your doctor next week 3. Return to ER for any worsning. All discharge instructions reviewed with patient and/or family. Voiced understanding. Scripts Levofloxacin (Levofloxacin) 500 Mg Tablet 500 MG PO DAILY, #4 TAB Prov: JETHRO RICE ELECTRIC RANGE ASSEMBLER 07/24/20 JETHRO RICE ELECTRIC RANGE ASSEMBLER Jul 24, 2020 17:18
[2020-07-24 18:02] LABS: BASOPHILS % (AUTO) 0 % (0-10); EOSINOPHILS % (AUTO) 0 % (0-10); HEMATOCRIT 41 % (35-52); HEMOGLOBIN 12.7 g/dL (11.5-16.0); LYMPHOCYTES # (AUTO) 0.9 10^3/uL (1.0-4.0); LYMPHOCYTES % (AUTO) 9 % (12-44); MEAN CORPUSCULAR HEMOGLOBIN 27 pg (25-34); MEAN CORPUSCULAR HGB CONC 31 g/dL (32-36); MEAN CORPUSCULAR VOLUME 86 fL (80-99); MEAN PLATELET VOLUME 9.8 fL (9.0-12.2); MONOCYTES # (AUTO) 0.6 10^3/uL (0.0-1.0); MONOCYTES % (AUTO) 6 % (0-12); NEUTROPHILS # (AUTO) 7.9 10^3/uL (1.8-7.8); NEUTROPHILS % (AUTO) 84 % (42-75); PLATELET COUNT 179 10^3/uL (130-400); WHITE BLOOD COUNT 9.5 10^3/uL (4.3-11.0)
[2020-07-24 18:11] LABS: ALBUMIN 3.5 GM/DL (3.2-4.5); CHLORIDE 96 MMOL/L (98-107); POTASSIUM 3.8 MMOL/L (3.6-5.0); SODIUM 133 MMOL/L (135-145)
[2020-07-24 18:12] LABS: CALCIUM 8.8 MG/DL (8.5-10.1)
[2020-07-24 18:13] LABS: GLUCOSE 286 MG/DL (70-105)
[2020-07-24 18:14] LABS: TOTAL PROTEIN 6.4 GM/DL (6.4-8.2)
[2020-07-24 18:15] LABS: BILIRUBIN,TOTAL 2.2 MG/DL (0.1-1.0); CARBON DIOXIDE 26 MMOL/L (21-32)
[2020-07-24 18:17] LABS: ALKALINE PHOSPHATASE 134 U/L (40-136); CREATININE SERUM 0.81 MG/DL (0.60-1.30); GFR ESTIMATED > 60
[2020-07-24 18:18] LABS: BUN/CREATININE RATIO 12
[2020-07-24 18:20] LABS: ALANINE AMINOTRANSFERASE 18 U/L (0-55); LIPASE 12 U/L (8-78)
--- NOTE | 2020-07-24 18:21 | Diagnostic Imaging Report ---
Clinical indication: Patient with nausea, vomiting, and weakness in the Emergency Room. Exam: Axial CT scan of the brain without IV contrast with coronal and sagittal reformatted images. Auto Exposure Controls were utilized during the CT exam to meet ALARA standards for radiation dose reduction. Comparison: MRI of the brain performed without and with IV contrast dated 08/26/2019. Head CT without contrast dated 03/30/2019. Findings: There is no evidence of acute cerebral infarct, intracranial hemorrhage, or gross mass effect. Again seen postoperative changes with partial occipital craniotomy and decompression of the posterior fossa. Stable mild diffuse brain parenchymal volume loss noted. There is normal bonilla-white matter distinction. There is no significant midline shift or herniation. There is no evidence of hydrocephalus. The basal cisterns are unremarkable. The skull, extracranial soft tissue, and orbits are unremarkable. There is minimal mucosal thickening involving the bilateral maxillary sinuses and ethmoid sinuses. Temporal bones show no significant abnormality. Impression: Stable CT scan of the brain with no evidence of acute intracranial process. Dictated by: Dictated on workstation # [id number]
--- NOTE | 2020-07-24 18:23 | Diagnostic Imaging Report ---
EXAMINATION: Chest 1 view HISTORY: vomiting COMPARISON: Chest radiograph 05/28/2020 FINDINGS: Heart size and pulmonary vasculature are normal. A right IJ [id number] is present with the tip projecting over the SVC. Calcifications of the aorta. Stable left basilar airspace opacities compared to 05/28/2020. The osseous structures are intact. IMPRESSION: 1. Stable left basilar opacities, unchanged from prior exams, likely chronic. No new acute radiographic abnormality in the chest. Dictated by: Dictated on workstation # [id number]
--- NOTE | 2020-07-24 18:36 | Diagnostic Imaging Report ---
Clinical indication: Patient with nausea and vomiting. Exam: CT exam of the abdomen and pelvis is performed without IV or oral contrast using stone protocol. Coronal and sagittal reformatted images were created. Auto Exposure Controls were utilized during the CT exam to meet ALARA standards for radiation dose reduction. Comparisons: CT scan of the abdomen and pelvis performed without contrast dated 05/11/2015. Findings: There is mild atelectasis involving the posterior aspect of both lung bases. There is lower lumbar spine facet arthropathy. There are small degenerative spurs involving the visualized lower thoracic spine and lumbar spine. 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 Liver is otherwise unremarkable. The spleen, pancreas, adrenal glands are unremarkable and stable. Again noted fatty infiltration of the pancreatic head region. The gallbladder is not visualized and there is no surgical clips seen in the expected region. Gallbladder may be surgically resected and less likely markedly decompressed. Mild fat stranding adjacent to both kidneys are again noted which has slightly increased in interim. Kidneys are otherwise unremarkable with no stones, visible masses, or hydronephrosis. Bladder is fluid-filled and grossly unremarkable. The uterus is surgically absent. The left ovary is unremarkable. The right ovary is not visualized and may be surgically resected. There is no intra-abdominal free air or free fluid. There is no lymphadenopathy. There is no intestinal obstruction. There is diverticulosis involving the sigmoid colon with no CT evidence of diverticulitis. There is moderate amount of stool involving the transverse colon and left colon. The cecum is in the right upper quadrant region. The appendix is not visualized and may be surgically absent. There is no inflammation involving the cecum. There is no intestinal obstruction. Previously seen inflammation involving the anterior abdominal wall has predominantly resolved with residual scarring noted. The extra-abdominal and extrapelvic soft tissue structures show no other significant abnormality. IMPRESSION: 1.: There is no definite interval evidence of acute abdominal or pelvic process. There is no intestinal obstruction, intra-abdominal free air or free fluid. 2: There is moderate amount of stool involving the transverse colon and descending colon. 3: There is diverticulosis with no CT evidence of diverticulitis. 4: There is no other significant interval abnormality seen. Dictated by: Dictated on workstation # [id number]
--- NOTE | 2020-07-24 19:00 | NUR ---
ASSUMED CARE OF THIS PATIENT FROM NEHAL CARRILLO.
[2020-07-24 19:02] LABS: BILIRUBIN,URINE NEGATIVE (NEGATIVE); CLARITY,URINE SL CLOUDY; COLOR,URINE ORANGE; GLUCOSE, URINE (UA) NEGATIVE (NEGATIVE); KETONES,URINE TRACE (NEGATIVE); LEUKOCYTE ESTERASE ,URINE 3+ (NEGATIVE); NITRITE,URINE POSITIVE (NEGATIVE); PROTEIN,URINE 1+ (NEGATIVE)
[2020-07-24 19:39] LABS: BACTERIA,URINE LARGE /HPF; WBC,URINE >100 /HPF
[2020-07-24] MEDS ORDERED: LEVOFLOXACIN 750 MG TAB (LEVAQUIN) PO ONE (19:45)
[2020-07-24] MEDS ORDERED: cefTRIAXone FOR IV USE 1,000 MG in WATER (STERILE) FOR INJECTION 10 ML IV ONE (19:45)
[2020-07-24] MEDS ORDERED: LEVO500T80 PO (19:47)
[2020-07-24 20:23] VITALS: BP 100/52
== END 2020-07-24 20:24 | disposition home or self-care (01) ==
LOC: ER 16:35
DX: N39.0 Urinary tract infection, site not specified (principal); J45.909 Unspecified asthma, uncomplicated; F41.9 Anxiety disorder, unspecified; F32.9 Major depressive disorder, single episode, unspecified; E11.9 Type 2 diabetes mellitus without complications; Z82.61 Family history of arthritis; Z82.49 Family history of ischemic heart disease and other diseases of the circulatory system; Z80.9 Family history of malignant neoplasm, unspecified; Z86.711 Personal history of pulmonary embolism; Z79.01 Long term (current) use of anticoagulants
CPT/HCPCS: 36415; 70450; 71045; 74176; 80053; 81000; 83690; 85025; 87077; 87088

== ENCOUNTER 2020-08-24 11:09 | Outpatient (RCR) | payer MEDICARE, OTHER ==
[2020-07-03 10:15] VITALS: BP 142/84
[~2020-08-24] VITALS: Ht 167 cm; Wt 111.0 kg
[~2020-08-24 11:09] MED LIST changes: +HEParin (CENTRAL IV FLUSH) 500 UNIT/5 ML SYR IV ONE; +LEVO500T80 PO; -MONT10TA26 PO; +MONT10TA97 PO
[2020-08-24] MEDS ORDERED: HEParin (CENTRAL IV FLUSH) 500 UNIT/5 ML SYR ONE (11:13)
[2020-08-24 11:30] VITALS: BP 121/89
[2020-08-24] MEDS ORDERED: HEParin (CENTRAL IV FLUSH) 500 UNIT/5 ML SYR IV ONE (12:30)
== END 2020-10-01 | disposition home or self-care (01) ==
LOC: SDC 11:09
DX: Z45.2 Encounter for adjustment and management of vascular access device (principal); E11.9 Type 2 diabetes mellitus without complications
CPT/HCPCS: 36415; 36591; 83036; 84443

== ENCOUNTER 2020-09-21 22:58 | Emergency (ER) | payer MEDICARE, OTHER ==
[~2020-09-21] VITALS: Ht 167 cm; Wt 110.0 kg
[~2020-09-21 22:58] MED LIST changes: -HEParin (CENTRAL IV FLUSH) 500 UNIT/5 ML SYR IV ONE
[2020-09-21] MEDS ORDERED: NS IV 1000 ML 1,000 ML IV SCH (23:15)
[2020-09-21 23:21] LABS: BASOPHILS % (AUTO) 0 % (0-10); EOSINOPHILS # (AUTO) 0.2 10^3/uL (0.0-0.3); EOSINOPHILS % (AUTO) 3 % (0-10); HEMATOCRIT 40 % (35-52); HEMOGLOBIN 12.8 g/dL (11.5-16.0); LYMPHOCYTES # (AUTO) 2.2 10^3/uL (1.0-4.0); LYMPHOCYTES % (AUTO) 28 % (12-44); MEAN CORPUSCULAR HEMOGLOBIN 28 pg (25-34); MEAN CORPUSCULAR HGB CONC 32 g/dL (32-36); MEAN CORPUSCULAR VOLUME 88 fL (80-99); MEAN PLATELET VOLUME 10.3 fL (9.0-12.2); MONOCYTES # (AUTO) 0.4 10^3/uL (0.0-1.0); MONOCYTES % (AUTO) 5 % (0-12); NEUTROPHILS % (AUTO) 64 % (42-75); PLATELET COUNT 217 10^3/uL (130-400); WHITE BLOOD COUNT 7.8 10^3/uL (4.3-11.0)
[2020-09-21 23:31] LABS: ALBUMIN 3.3 GM/DL (3.2-4.5); CHLORIDE 99 MMOL/L (98-107); SODIUM 134 MMOL/L (135-145)
[2020-09-21 23:32] LABS: CALCIUM 8.8 MG/DL (8.5-10.1)
[2020-09-21 23:33] LABS: GLUCOSE 251 MG/DL (70-105)
[2020-09-21 23:34] LABS: CARBON DIOXIDE 23 MMOL/L (21-32)
[2020-09-21 23:35] LABS: BILIRUBIN,TOTAL 0.7 MG/DL (0.1-1.0)
[2020-09-21 23:36] LABS: PROTHROMBIN TIME PATIENT 13.1 SEC (12.2-14.7)
[2020-09-21 23:37] LABS: ALKALINE PHOSPHATASE 117 U/L (40-136); CREATININE SERUM 0.82 MG/DL (0.60-1.30); GFR ESTIMATED > 60
[2020-09-21 23:38] LABS: BUN/CREATININE RATIO 15
[2020-09-21 23:39] LABS: POTASSIUM 6.6 MMOL/L (3.6-5.0)
[2020-09-21 23:40] LABS: ALANINE AMINOTRANSFERASE 12 U/L (0-55); MAGNESIUM 1.8 MG/DL (1.6-2.4)
[2020-09-22 00:39] LABS: BILIRUBIN,URINE NEGATIVE (NEGATIVE); CLARITY,URINE CLEAR; COLOR,URINE YELLOW; GLUCOSE, URINE (UA) NEGATIVE (NEGATIVE); KETONES,URINE NEGATIVE (NEGATIVE); LEUKOCYTE ESTERASE ,URINE NEGATIVE (NEGATIVE); NITRITE,URINE NEGATIVE (NEGATIVE); PROTEIN,URINE NEGATIVE (NEGATIVE)
[2020-09-22 00:51] LABS: BACTERIA,URINE NEGATIVE /HPF; WBC,URINE 0-2 /HPF
[2020-09-22] MEDS ORDERED: diphenhydrAMINE 50 MG/ML INJ (BENADRYL) IVP ONE (01:00)
[2020-09-22] MEDS ORDERED: GABAPENTIN 300 MG (NEURONTIN) CAP PO ONE (01:15)
[2020-09-22 02:00] VITALS: BP 116/63
[2020-09-22] MEDS ORDERED: RT-ALBUTEROL INHALER HFA (VENTOLIN HFA) 18 GM IH SCH (02:00)
--- NOTE | 2020-09-22 02:00 | ED Neurological Problem ---
General Chief Complaint: Neurological Problems Stated Complaint: [facility] Nursing Triage Note: [facility] Nursing Sepsis Screen: No Definite Risk Source: patient Exam Limitations: no limitations History of Present Illness Date Seen by Provider: Sep 22, 2020 Time Seen by Provider: 23:00 Initial Comments This 70-year-old woman presents to the emergency room via EMS with complaints of uncontrollable tremors that started shortly before arrival. She had a recent left forearm fracture requiring surgical repair at [place]. She has plates for internal fixation. Patient has restless leg syndrome but has never had tremors of this nature before. She remained alert during the episode although confused according to her . EMS administered Versed 5 mg IV which immediately a borted the tremors. Patient never lost consciousness at home or in route. Patient also states she was short of breath and used an albuterol treatment prior to the event. She typically does not have trouble with albuterol. Blood sugars were in the 200s for EMS. Patient also stopped to multiple medications Recently. She and her are not in agreement with when that occurred. She stopped Many of her medications somewhere in the 2-week to 2-month range. Some of these medications can cause significant withdrawal symptoms such as gabapentin. She is also on Movantik which can cause some opioid withdrawal symptoms. Allergies and Home Medications Allergies Coded Allergies: No Known Drug Allergies (Unverified , 02/11/14) Home Medications Albuterol Sulfate 1 Puff Puff, 2 PUFF INH Q6H PRN for SHORTNESS OF BREATH, (Reported) Alprazolam 0.5 Mg Tablet, 0.5 MG PO TID PRN for ANXIETY, (Reported) Amitriptyline HCl 75 Mg Tablet, 75 MG PO HS, (Reported) Apixaban 5 Mg Tablet, 5 MG PO BID, (Reported) Ascorbate Calcium 500 Mg Tablet, 500 MG PO DAILY, (Reported) Celecoxib 200 Mg Capsule, 200 MG PO DAILY, (Reported) Citalopram Hydrobromide 20 Mg Tablet, 20 MG PO HS, (Reported) Dexamethasone 6 Mg Tablet, 6 MG PO DAILY Prescribed by: HONORIO HAMPTON on 06/01/20 1049 Dicyclomine HCl 10 Mg Capsule, 10 MG PO TID PRN for SPASMS, (Reported) Ferrous Sulfate 325 Mg Tablet, 325 MG PO DAILY, (Reported) Gabapentin 600 Mg Tablet, 600 MG PO TID, (Reported) Glipizide 10 Mg Tablet, 10 MG PO DAILY, (Reported) Hydrochlorothiazide 25 Mg Tablet, 25 MG PO DAILY, (Reported) Hydrocodone/Acetaminophen 1 Each Tablet, 1 EA PO Q6H PRN for PAIN-MODERATE (5- 7), (Reported) Lactobacillus Combo No.10 1 Each Capsule, 1 CAP PO DAILY, (Reported) Levofloxacin 500 Mg Tablet, 500 MG PO DAILY Prescribed by: JETHRO RICE on 07/24/201946 Montelukast Sodium 10 Mg Tablet, 10 MG PO DAILY, (Reported) Pantoprazole Sodium 40 Mg Tablet.dr, 40 MG PO DAILY PRN for HEARTBURN, (Reported) Pramipexole Di-HCl 1 Mg Tablet, 1 MG PO TID, (Reported) Zolpidem Tartrate 12.5 Mg Tab.mphase, 12.5 MG PO HS, (Reported) Patient Home Medication List Home Medication List Reviewed: Yes Review of Systems Review of Systems Constitutional: no symptoms reported Eyes: No Symptoms Reported Ears, Nose, Mouth, Throat: no symptoms reported Respiratory: no symptoms reported Cardiovascular: no symptoms reported Gastrointestinal: no symptoms reported Genitourinary: no symptoms reported : No Skin: no symptoms reported Psychiatric/Neurological: See HPI Endocrine: See HPI Past Exthqdz-Apvtmg-Efkchu Hx Past Med/Social Hx: Reviewed Nursing Past Med/Soc Hx Patient Social History Alcohol Use: Denies Use Smoking Status: Never a Smoker 2nd Hand Smoke Exposure: No Recent Infectious Disease Expo: No Recent Hopitalizations: No Immunizations Up To Date Tetanus Booster (TDap): More than 5yrs Date of Pneumonia Vaccine: Apr 15, 2015 Date of Influenza Vaccine: Jun 25, 2019 Seasonal Allergies Seasonal Allergies: No Past Medical History Surgeries: Yes (R knee replaced x2, port, c/s x3, hernia x5, rotator cuff, ) Abdominal, Appendectomy, Hysterectomy, Joint Replacement, Neurological, Orthopedic, Thyroidectomy, Tonsillectomy Respiratory: Yes Asthma, Pneumonia, Chronic Bronchitis, Pulmonary Embolism, Sleep Apnea Currently Using CPAP: Yes Cardiac: Yes High Cholesterol Neurological: Yes (CHIARI MALFORMATION--SURGICAL REPAIR; RESTLESS LEG SYNDROME) : No Reproductive Disorders: No Female Reproductive Disorders: Denies [employer]ISON OFF[employer]ER History: Menopausal Sexually Transmitted Disease: No HIV/AIDS: No Genitourinary: Yes Bladder Infection Gastrointestinal: Yes ("COMPLETE ABDOMINAL RECONSTRUCTION" 2010. CHRONIC ABDOMINAL PAIN) Chronic Constipation, Chronic Diarrhea Musculoskeletal: Yes Arthritis, Chronic Back Pain Endocrine: Yes (BENIGN MASS LEFT THYROID REMOVED 01/01/2013) Diabetes, Non-Insulin dep HEENT: Yes Cataract Loss of Vision: Denies Hearing Impairment: Denies Cancer: No Psychosocial: Yes Anxiety, Depression Integumentary: No Blood Disorders: No Adverse Reaction/Blood Tranf: No Family Medical History Cancer 03 FATHER (PANCREATIC, PASSED AT 65 FROM THIS) Cataract 03 MOTHER Dementia 03 MOTHER Family history: Arthritis 03 MOTHER Family history: Cardiovascular disease 03 MOTHER (HIGH CHOLESTEROL, [place] ARTERIES 2 TIMES) Hearing loss 03 MOTHER Hypercholesterolemia 03 MOTHER Cancer Physical Exam Vital Signs Vital Signs - First Documented 09/21/20 23:00 Temp 36.7 Pulse 90 Resp 22 B/P (MAP) 115/62 (79) Pulse Ox 93 O2 Delivery Room Air Capillary Refill : Less Than 3 Seconds Height, Weight, BMI Height: 5'4.00" Weight: 232lbs. 0.0oz. 105.160996kd; 39.00 BMI Method:Stated General Appearance: WD/WN, no apparent distress HEENT: PERRL/EOMI, normal ENT inspection, other (Oropharynx dry) Neck: normal inspection Respiratory: no respiratory distress, no accessory muscle use, wheezing Cardiovascular: regular rate, rhythm, no edema, no murmur Gastrointestinal: normal bowel sounds, non tender, soft Extremities: no pedal edema, other (Left arm casted) Neurologic/Psychiatric: refinisher II-XII nml as tested, no motor/sensory deficits, alert, normal mood/affect, oriented x 3, other (Speech is sluggish after receiving Versed) Crainal Nerves: PERRL Motor/Sensory: no motor deficit, no sensory deficit Skin: normal color, warm/dry Progress/Results/Core Measures Results/Orders Lab Results Laboratory Tests Test 09/21/20 23:15 09/22/20 00:01 09/22/20 00:30 Range/Units White Blood Count 7.8 4.3-11.0 10^3/uL Red Blood Count 4.58 3.80-5.11 10^6/uL Hemoglobin 12.8 11.5-16.0 g/dL Hematocrit 40 35-52 % Mean Corpuscular Volume 88 80-99 fL Mean Corpuscular Hemoglobin 28 25-34 pg Mean Corpuscular Hemoglobin Concent 32 32-36 g/dL Red Cell Distribution Width 15.7 H 10.0-14.5 % Platelet Count 217 130-400 10^3/uL Mean Platelet Volume 10.3 9.0-12.2 fL Immature Granulocyte % (Auto) 1 % Neutrophils (%) (Auto) 64 42-75 % Lymphocytes (%) (Auto) 28 12-44 % Monocytes (%) (Auto) 5 0-12 % Eosinophils (%) (Auto) 3 0-10 % Basophils (%) (Auto) 0 0-10 % Neutrophils # (Auto) 5.0 1.8-7.8 10^3/uL Lymphocytes # (Auto) 2.2 1.0-4.0 10^3/uL Monocytes # (Auto) 0.4 0.0-1.0 10^3/uL Eosinophils # (Auto) 0.2 0.0-0.3 10^3/uL Basophils # (Auto) 0.0 0.0-0.1 10^3/uL Immature Granulocyte # (Auto) 0.1 0.0-0.1 10^3/uL Prothrombin Time 13.1 12.2-14.7 SEC INR Comment 1.0 0.8-1.4 Activated Partial Thromboplast Time 24 24-35 SEC Sodium Level 134 L 135-145 MMOL/L Potassium Level 6.6 *H 4.2 3.6-5.0 MMOL/L Chloride Level 99 98-107 MMOL/L Carbon Dioxide Level 23 21-32 MMOL/L Anion Gap 12 5-14 MMOL/L Blood Urea Nitrogen 12 7-18 MG/DL Creatinine 0.82 0.60-1.30 MG/DL Estimat Glomerular Filtration Rate > 60 BUN/Creatinine Ratio 15 Glucose Level 251 H 70-105 MG/DL Calcium Level 8.8 8.5-10.1 MG/DL Corrected Calcium 9.4 8.5-10.1 MG/DL Magnesium Level 1.8 1.6-2.4 MG/DL Total Bilirubin 0.7 0.1-1.0 MG/DL Aspartate Amino Transf (AST/SGOT) 30 5-34 U/L Alanine Aminotransferase (ALT/SGPT) 12 0-55 U/L Alkaline Phosphatase 117 40-136 U/L Total Protein 7.0 6.4-8.2 GM/DL Albumin 3.3 3.2-4.5 GM/DL Urine Color YELLOW Urine Clarity CLEAR Urine pH 6.0 5-9 Urine Specific [place] <=1.005 1.016-1.022 Urine Protein NEGATIVE NEGATIVE Urine Glucose (UA) NEGATIVE NEGATIVE Urine Ketones NEGATIVE NEGATIVE Urine Nitrite NEGATIVE NEGATIVE Urine Bilirubin NEGATIVE NEGATIVE Urine Urobilinogen 0.2 < = 1.0 MG/DL Urine Leukocyte Esterase NEGATIVE NEGATIVE Urine RBC (Auto) NEGATIVE NEGATIVE Urine RBC NONE /HPF Urine WBC 0-2 /HPF Urine Squamous Epithelial Cells 2-5 /HPF Urine Crystals NONE /LPF Urine Bacteria NEGATIVE /HPF Urine Casts NONE /LPF Urine Mucus NEGATIVE /LPF Urine Culture Indicated NO My Orders Orders - GIOVANNI SAUCEDA MD Cbc With Automated Diff (09/21/20 23:11) Comprehensive Metabolic Panel (09/21/20 23:11) Magnesium (09/21/20 23:11) Ua Culture If Indicated (09/21/20 23:11) Ed Iv/Invasive Line Start (09/21/20 23:11) Ns Iv 1000 Ml (Sodium Chloride 0.9%) (09/21/20 23:15) Protime With Inr (09/21/20 23:14) Partial Thromboplastin Time (09/21/20 23:14) Ct Head Wo (09/21/20 23:14) Ekg Tracing (09/21/20 23:42) Potassium (09/21/20 23:50) Albuterol Inhaler (Ventolin Hfa) (09/22/20 02:00) Diphenhydramine Injection (Benadryl Inje (09/22/20 01:00) Gabapentin Capsule/Tablet (Neurontin Cap (09/22/20 01:15) Medications Given in ED Current Medications Medications Dose Ordered Sig/Eloise Route Start Time Stop Time Status Last Admin Dose Admin Diphenhydramine HCl 25 mg ONCE ONCE IVP 09/22/20 01:00 09/22/20 01:01 DC 09/22/20 01:03 25 MG Gabapentin 300 mg ONCE ONCE PO 09/22/20 01:15 09/22/20 01:16 DC 09/22/20 01:29 300 MG Vital Signs/I&O 09/21/20 09/22/20 23:00 02:00 Temp 36.7 36.5 Pulse 90 85 Resp 22 17 B/P (MAP) 115/62 (79) 116/63 (79) Pulse Ox 93 97 O2 Delivery Room Air Room Air Blood Pressure Mean: 79 Progress Progress Note : Progress Note Work-up was grossly unremarkable except for hyperkalemia. However, this hyperkalemia was likely in part due to lab error. Repeat potassium was significantly lower a short time later after only approximately 500 mL of normal saline. Patient did have recurrence of her tremors. She was given Benadryl and a gabapentin capsule. This nearly resolved the tremors. Work-up was otherwise a concerted. Initial ECG Impression Date: Sep 22, 2020 Initial ECG Impression Time: 00:00 Initial ECG Rate: 77 Initial ECG Rhythm: Normal Sinus Initial ECG Intervals: Normal Initial ECG Impression: Normal Comment Normal sinus rhythm with no ST elevation or depression. No abnormal intervals or axis deviation. Flattened T waves. Diagnostic Imaging Diagonstic Imaging: CT Plain Films/CT/US/NM/MRI: head Comments CT head viewed by me and stat rad report reviewed. No acute abnormalities identified. Departure Impression Primary Impression: Dystonic movements Disposition: 01 HOME, SELF-CARE Condition: Improved Departure-Patient Inst. Decision time for Depature: 01:58 Referrals: SABIHA MAXWELL MD (PCP/Family) Primary Care Physician Patient Instructions: Dystonia, Prescription Drug Withdrawal (DC) Add. Discharge Instructions: Bring all of your medications to a follow-up appointment with your primary care provider and review with him which medications you are and are not taking. If tremors return, consider taking Benadryl (diphenhydramine) up to 50 mg every 4 hours as needed. If this is not effective after 20 to 30 minutes, consider adding gabapentin up to 600 mg twice daily. If these interventions are not successful in stopping tremors, or if tremors are severe, return to the emergency room. Call with questions or concerns. All discharge instructions reviewed with patient and/or family. Voiced understanding. Copy Copies To 1: SAIBHA MAXWELL MD, JOSHUA T MD Sep 22, 2020 01:59
--- NOTE | 2020-09-22 05:46 | Diagnostic Imaging Report ---
PROCEDURE: CT head without contrast. TECHNIQUE: Multiple contiguous axial images were obtained through the brain without the use of intravenous contrast. Auto Exposure Controls were utilized during the CT exam to meet ALARA standards for radiation dose reduction. INDICATION: Seizure. FINDINGS: There is no mass, shift of midline or hemorrhage to suggest an acute intracranial abnormality. The ventricles are not abnormally dilated and stable in size when compared to the prior exam of 07/24/2020. The bone windows show no sign of a fracture or of a destructive lesion. The postsurgical changes consistent with prior suboccipital craniotomy seen on the prior study are again evident and no different. The orbits are symmetrical and within normal limits. There is mucosal thickening in the ethmoid sinuses. Sinuses are otherwise generally clear. IMPRESSION: 1. There is no evidence for an acute intracranial abnormality. 2. If clinical concern regarding an underlying abnormality persists, then MRI would be recommended for further evaluation. 3. I agree with [facility] interpretation of this exam. Dictated by: Dictated on workstation # [id number]
== END 2020-09-22 02:06 | disposition home or self-care (01) ==
LOC: EDUNIT# 22:58 → ER 23:00
DX: R25.8 Other abnormal involuntary movements (principal); J45.909 Unspecified asthma, uncomplicated; F41.9 Anxiety disorder, unspecified; F32.9 Major depressive disorder, single episode, unspecified; E11.9 Type 2 diabetes mellitus without complications; G89.29 Other chronic pain; M54.9 Dorsalgia, unspecified; Z86.711 Personal history of pulmonary embolism; Z80.0 Family history of malignant neoplasm of digestive organs; Z82.61 Family history of arthritis; Z82.49 Family history of ischemic heart disease and other diseases of the circulatory system; Z79.01 Long term (current) use of anticoagulants; Z79.891 Long term (current) use of opiate analgesic
CPT/HCPCS: 36415; 70450; 80053; 81000; 83735; 85025; 85610; 85730; 93005

== ENCOUNTER 2020-09-22 09:49 | Emergency (ER) | payer MEDICARE, OTHER ==
[~2020-09-22] VITALS: Ht 168 cm; Wt 111.0 kg
--- NOTE | 2020-09-22 11:26 | ED General ---
General Chief Complaint: Neurological Problems Stated Complaint: TWITCHING, Nursing Triage Note: PT TO RM 3 VIA WC. STATES SHE WAS HERE LAST NOC AND IS HAVING SAME TREMOR/SHAKING ISSUE (OBSERVED SOME TWITCHING IN HER LOWER EXTREMITIES). PT STATES LAST NOC SHE WAS TOLD TO TAKE BENADRYL TO HELP WITH HER TREMOR/SHAKING ISSUE. STATES IT DIDN'T HELP. Nursing Sepsis Screen: No Definite Risk Source of Information: Patient Exam Limitations: No Limitations History of Present Illness Date Seen by Provider: Sep 22, 2020 Time Seen by Provider: 10:30 Initial Comments Patient is a 70-year-old female who presents to the emergency department today with a chief complaint of "tremors". Patient states that she started having tremors within the last 24 hours. She was seen in the emergency room last night by physician colleague and had the same complaint. Patient had extensive work- up done and it was unremarkable. Patient was given some Benadryl and some gabapentin and it was documented that she had complete resolution of her tremors. Patient apparently took Benadryl at home and it did not help so she came back to the emergency department today. Patient denies any significant headache, weakness, chest pain, shortness of breath, abdominal pain, nausea, vomiting or diarrhea. Per review of the patient's medical record, specifically her medication/K. Tra[employer] she has had multiple opiate prescriptions filled throughout the last several fri. Most notably the patient had 90 hydrocodone tens filled on September 05, 20 oxycodone fives filled on September 13, 60 oxycodone 5 was filled on September 16 and 42 4 mg hydromorphone filled on September 18. I do believe that the patient is overusing her narcotic prescriptions and likely this is contributing to her tremors. The patient states to me that she has not taken any of her hydromorphone in the last 3 days which would coincide with the time that she filled her medication. She states she has not thrown any of the other medications away and still has possession of them at her home. All other review of systems reviewed and negative except as stated above. Timing/Duration: 24 Hours Severity: Moderate Associated Systoms: Denies Symptoms Allergies and Home Medications Allergies Coded Allergies: No Known Drug Allergies (Unverified , 02/11/14) Home Medications Albuterol Sulfate 1 Puff Puff, 2 PUFF INH Q6H PRN for SHORTNESS OF BREATH, (Reported) Alprazolam 0.5 Mg Tablet, 0.5 MG PO TID PRN for ANXIETY, (Reported) Amitriptyline HCl 75 Mg Tablet, 75 MG PO HS, (Reported) Apixaban 5 Mg Tablet, 5 MG PO BID, (Reported) Ascorbate Calcium 500 Mg Tablet, 500 MG PO DAILY, (Reported) Celecoxib 200 Mg Capsule, 200 MG PO DAILY, (Reported) Citalopram Hydrobromide 20 Mg Tablet, 20 MG PO HS, (Reported) Dexamethasone 6 Mg Tablet, 6 MG PO DAILY Prescribed by: HONORIO HAMPTON on 06/01/20 1049 Dicyclomine HCl 10 Mg Capsule, 10 MG PO TID PRN for SPASMS, (Reported) Ferrous Sulfate 325 Mg Tablet, 325 MG PO DAILY, (Reported) Gabapentin 600 Mg Tablet, 600 MG PO TID, (Reported) Glipizide 10 Mg Tablet, 10 MG PO DAILY, (Reported) Hydrochlorothiazide 25 Mg Tablet, 25 MG PO DAILY, (Reported) Hydrocodone/Acetaminophen 1 Each Tablet, 1 EA PO Q6H PRN for PAIN-MODERATE (5- 7), (Reported) Lactobacillus Combo No.10 1 Each Capsule, 1 CAP PO DAILY, (Reported) Levofloxacin 500 Mg Tablet, 500 MG PO DAILY Prescribed by: JETHRO RICE on 07/24/201946 Montelukast Sodium 10 Mg Tablet, 10 MG PO DAILY, (Reported) Pantoprazole Sodium 40 Mg Tablet.dr, 40 MG PO DAILY PRN for HEARTBURN, (Reported) Pramipexole Di-HCl 1 Mg Tablet, 1 MG PO TID, (Reported) Zolpidem Tartrate 12.5 Mg Tab.mphase, 12.5 MG PO HS, (Reported) Patient Home Medication List Home Medication List Reviewed: Yes Review of Systems Review of Systems Constitutional: see HPI EENTM: see HPI Respiratory: no symptoms reported Cardiovascular: no symptoms reported Gastrointestinal: no symptoms reported Genitourinary: no symptoms reported Musculoskeletal: no symptoms reported Skin: no symptoms reported Psychiatric/Neurological: Anxiety, Depressed, Emotional Problems, Tremors All Other Systems Reviewed Negative Unless Noted: Yes Past Djjzgtg-Ousxfd-Bcsqzj Hx Patient Social History 2nd Hand Smoke Exposure: No Recent Infectious Disease Expo: No Recent Hopitalizations: No Immunizations Up To Date Tetanus Booster (TDap): More than 5yrs Date of Pneumonia Vaccine: Apr 15, 2015 Date of Influenza Vaccine: Jun 25, 2019 Seasonal Allergies Seasonal Allergies: No Past Medical History Surgeries: Yes (R knee replaced x2, port, c/s x3, hernia x5, rotator cuff, left wrist) Abdominal, Appendectomy, Hysterectomy, Joint Replacement, Neurological, Orthopedic, Thyroidectomy, Tonsillectomy Respiratory: Yes Asthma, Pneumonia, Chronic Bronchitis, Pulmonary Embolism, Sleep Apnea Currently Using CPAP: Yes Cardiac: Yes High Cholesterol Neurological: Yes (CHIARI MALFORMATION--SURGICAL REPAIR; RESTLESS LEG SYNDROME) Reproductive Disorders: No Female Reproductive Disorders: 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 CHRONIC ABDOMINAL PAIN) Chronic Constipation, Chronic Diarrhea Musculoskeletal: Yes Arthritis, Chronic Back Pain Endocrine: Yes (BENIGN MASS LEFT THYROID REMOVED 01/01/2013) Diabetes, Non-Insulin dep HEENT: Yes Cataract Loss of Vision: Denies Hearing Impairment: Denies Cancer: No Psychosocial: Yes Anxiety, Depression Integumentary: No Blood Disorders: No Adverse Reaction/Blood Tranf: No Family Medical History Cancer 03 FATHER (PANCREATIC, PASSED AT 65 FROM THIS) Cataract 03 MOTHER Dementia 03 MOTHER Family history: Arthritis 03 MOTHER Family history: Cardiovascular disease 03 MOTHER (HIGH CHOLESTEROL, BALOON ARTERIES 2 TIMES) Hearing loss 03 MOTHER Hypercholesterolemia 03 MOTHER Cancer Physical Exam Vital Signs Vital Signs - First Documented 09/22/20 10:08 Temp 36.5 Pulse 90 Resp 24 B/P (MAP) 152/76 (101) Pulse Ox 95 O2 Delivery Room Air O2 Flow Rate 95.00 Capillary Refill : Less Than 3 Seconds Height, Weight, BMI Height: 5'4.00" Weight: 232lbs. 0.0oz. 105.272732td; 39.00 BMI Method:Stated General Appearance: WD/WN, Anxious Eyes: Bilateral Eye Normal Inspection, Bilateral Eye PERRL, Bilateral Eye EOMI HEENT: PERRL/EOMI Neck: Normal Inspection Respiratory: Lungs Clear, Normal Breath Sounds, No Accessory Muscle Use Cardiovascular: Regular Rate, Rhythm Gastrointestinal: Normal Bowel Sounds, Non Tender, Soft Extremity: Normal Capillary Refill, Normal Inspection, Normal Range of Motion, Non Tender, No Calf Tenderness Neurologic/Psychiatric: Alert, Oriented x3, No Motor/Sensory Deficits, Normal Mood/Affect, 3d specialist II-XII Norm as Tested Skin: Normal Color, Warm/Dry Progress/Results/Core Measures Suspected Sepsis Recent Fever Within 48 Hours: No Infection Criteria Present: None New/Unexplained Altered Menta: No Sepsis Screen: No Definite Risk SIRS Temperature: Pulse: 90 Respiratory Rate: 24 Blood Pressure 152 /76 Mean: 101 Results/Orders Vital Signs/I&O Capillary Refill : Less Than 3 Seconds Blood Pressure Mean: 101 Progress Note : Time: 11:30 Progress Note I did have a long discussion with the patient regarding her narcotic fill history. She again states that she has not taken any narcotics in at least the last 3 days. And again I pointed out that I believe that she is in acute withdrawal from her narcotics. She did have an extensive work-up last evening including CT scan of the brain and multiple labs. Everything was within normal limits last evening. Patient is strongly counseled to stay off of her narcotic prescriptions. She verbalizes understanding. She has no clinical or objective findings to warrant further work-up here in the emergency department. Patient will be discharged home in the care of her . Departure Impression Primary Impression: Tremors of nervous system Additional Impression: Narcotic withdrawal Disposition: HOME, SELF-CARE Condition: Stable Departure-Patient Inst. Decision time for Depature: 11:32 Referrals: SABIHA MAXWELL MD (PCP/Family) Primary Care Physician Patient Instructions: Tremor Add. Discharge Instructions: Please try and avoid taking any of your opiate-based medications including oxycodone, hydrocodone and hydromorphone. You can take [id number] Benadryl at home every 6 hours as needed for nausea and shakiness. Please call and follow-up with your primary care physician. MAGALI TREVINO MD Sep 22, 2020 11:26
[2020-09-22 12:34] VITALS: BP 122/85
--- NOTE | 2020-09-22 12:34 | NUR ---
NOTIFIED OF D/C AND THAT PT WAS READY TO BE PICKED UP. HE ASKED TO HAVE DR. TREVINO CALL HIM ABOUT PT RESULTS.
== END 2020-09-22 12:45 | disposition home or self-care (01) ==
LOC: EDUNIT# 09:49 → ER 09:51
DX: R25.1 Tremor, unspecified (principal); F11.23 Opioid dependence with withdrawal; F98.9 Unspecified behavioral and emotional disorders with onset usually occurring in childhood and adolescence; F41.9 Anxiety disorder, unspecified; F32.9 Major depressive disorder, single episode, unspecified; E11.9 Type 2 diabetes mellitus without complications; K52.9 Noninfective gastroenteritis and colitis, unspecified; G47.30 Sleep apnea, unspecified; J45.909 Unspecified asthma, uncomplicated; Z87.01 Personal history of pneumonia (recurrent); Z86.711 Personal history of pulmonary embolism; Z86.018 Personal history of other benign neoplasm; Z96.651 Presence of right artificial knee joint; Z79.01 Long term (current) use of anticoagulants; Z79.84 Long term (current) use of oral hypoglycemic drugs; Z79.52 Long term (current) use of systemic steroids
CPT/HCPCS: 99283

== ENCOUNTER 2020-10-31 09:29 | Outpatient (RCR) | payer MEDICARE, OTHER ==
[~2020-10-31 09:29] MED LIST changes: -CIPR500T4 PO; +CIPR500T5 PO; +MONT10TA32 PO; -MONT10TA97 PO
[2020-10-31] MEDS ORDERED: HEParin (CENTRAL IV FLUSH) 500 UNIT/5 ML SYR IV ONE (09:45)
[2020-10-31 10:05] VITALS: BP 183/89
[2020-11-08] MEDS ORDERED: SIMV40TA25 PO (10:54)
[2020-11-08] MEDS ORDERED: SITA1TAB2 PO (10:54)
[2020-11-08] MEDS ORDERED: ESTR42.511 VG (10:54)
[2020-11-08] MEDS ORDERED: CELE200C PO (10:54)
[2020-11-14] MEDS ORDERED: DOCU100C37 PO (16:44)
[2020-11-14] MEDS ORDERED: TR1C15 TOP (16:44)
[2020-11-14] MEDS ORDERED: CHOL-34 PO (16:44)
[2020-11-14] MEDS ORDERED: CYAN-41 PO (16:44)
[2020-11-14] MEDS ORDERED: VITA100049 PO (16:44)
[2020-11-14] MEDS ORDERED: NITR100C PO (16:44)
[2020-11-14] MEDS ORDERED: FLUC150T2 PO (16:44)
[2020-11-14] MEDS ORDERED: POLY17PO6 PO (16:44)
[2020-11-14] MEDS ORDERED: HYDR2TAB6 PO (16:51)
[2020-11-14] MEDS ORDERED: CNC1KV IM (16:51)
[2020-11-14] MEDS ORDERED: SITA100T12 PO (16:51)
[2020-11-17] MEDS ORDERED: AMOX1TAB12 PO (14:00)
[2021-01-27] MEDS ORDERED: PRD20T PO (08:09)
[2021-01-29] MEDS ORDERED: CARB1TAB19 PO (11:27)
[2021-01-29] MEDS ORDERED: HYDR-87 PO (11:27)
[2021-01-29] MEDS ORDERED: ASCO-262 PO (11:30)
[2021-01-29] MEDS ORDERED: PRD20T PO (11:40)
[2021-01-29] MEDS ORDERED: INSU100I32 SQ (13:51)
[2021-01-30] MEDS ORDERED: INSU100I32 SQ ×2 (10:53→15:08)
== END 2021-01-29 | disposition home or self-care (01) ==
LOC: SDC 09:29
DX: Z45.2 Encounter for adjustment and management of vascular access device (principal); E11.9 Type 2 diabetes mellitus without complications
CPT/HCPCS: 36415; 36591; 83036; 84443

== ENCOUNTER 2020-11-02 17:27 | Emergency (ER) | payer MEDICARE, OTHER ==
[~2020-11-02] VITALS: Ht 167 cm; Wt 111.0 kg
[2020-11-02 17:30] VITALS: BP 194/78
--- NOTE | 2020-11-02 18:18 | ED Cough/URI ---
General Chief Complaint: Cough/Cold/Flu Symptoms Stated Complaint: COVID +, COUGHING, THROAT PAIN Nursing Triage Note: ARRIVED VIA AMB FROM HOME. WAS TOLD BY SHE TESTED POSITIVE FOR COVID ON A SWAB THEY DID A PREOP. PT HAD COVID IN MAY. PT COMPLAINS OF A COUGH AND SORE THROAT. STATES SHE FIGURED SHE SHOULD COME HERE INSTEAD OF GOING HOME AND DRINKING OJ. Sepsis Screen: No Definite Risk History of Present Illness Date Seen by Provider: Nov 02, 2020 Time Seen by Provider: 17:30 Initial Comments 70-year-old female presents for a cough and sore throat that began yes terday. She states that her has had symptoms for 3 or 4 days. She was in [place] getting a work-up for colonoscopy at [facility] and had a COVID-19 test that was positive. She was hospitalized here in May 2020 for Covid. She has not received the Covid vaccine. She presents to get medicine for being positive for COVID, she has not called her PCP. She denies any change in taste or smell. She is not having any shortness of air, myalgias, weakness, changes in appetite or chest pain. SaO2 is 97 to 98% on room air. Timing/Duration: yesterday Severity/Quality: mild, dry cough, productive cough Associated Symptoms: cough Allergies and Home Medications Allergies Coded Allergies: No Known Drug Allergies (Unverified , 02/11/14) Home Medications Albuterol Sulfate 1 Puff Puff, 2 PUFF INH Q6H PRN for SHORTNESS OF BREATH, (Reported) Alprazolam 0.5 Mg Tablet, 0.5 MG PO TID PRN for ANXIETY, (Reported) Amitriptyline HCl 75 Mg Tablet, 75 MG PO HS, (Reported) Apixaban 5 Mg Tablet, 5 MG PO BID, (Reported) Ascorbate Calcium 500 Mg Tablet, 500 MG PO DAILY, (Reported) Celecoxib 200 Mg Capsule, 200 MG PO DAILY, (Reported) Citalopram Hydrobromide 20 Mg Tablet, 20 MG PO HS, (Reported) Dexamethasone 6 Mg Tablet, 6 MG PO DAILY Prescribed by: HONORIO HAMPTON on 06/01/20 1049 Dicyclomine HCl 10 Mg Capsule, 10 MG PO TID PRN for SPASMS, (Reported) Ferrous Sulfate 325 Mg Tablet, 325 MG PO DAILY, (Reported) Gabapentin 600 Mg Tablet, 600 MG PO TID, (Reported) Glipizide 10 Mg Tablet, 10 MG PO DAILY, (Reported) Hydrochlorothiazide 25 Mg Tablet, 25 MG PO DAILY, (Reported) Hydrocodone/Acetaminophen 1 Each Tablet, 1 EA PO Q6H PRN for PAIN-MODERATE (5- 7), (Reported) Lactobacillus Combo No.10 1 Each Capsule, 1 CAP PO DAILY, (Reported) Levofloxacin 500 Mg Tablet, 500 MG PO DAILY Prescribed by: JETHRO RICE on 07/24/201946 Montelukast Sodium 10 Mg Tablet, 10 MG PO DAILY, (Reported) Pantoprazole Sodium 40 Mg Tablet.dr, 40 MG PO DAILY PRN for HEARTBURN, (Reported) Pramipexole Di-HCl 1 Mg Tablet, 1 MG PO TID, (Reported) Zolpidem Tartrate 12.5 Mg Tab.mphase, 12.5 MG PO HS, (Reported) Patient Home Medication List Home Medication List Reviewed: Yes Review of Systems Review of Systems Constitutional: no symptoms reported, see HPI EENTM: see HPI, no symptoms reported Respiratory: see HPI, cough Cardiovascular: no symptoms reported, see HPI; No chest pain Gastrointestinal: no symptoms reported Genitourinary: no symptoms reported, see HPI Musculoskeletal: no symptoms reported, see HPI Skin: no symptoms reported, see HPI All Other Systems Reviewed Negative Unless Noted: Yes Past Udplqti-Rtxhsy-Otdtib Hx Past Med/Social Hx: Reviewed Nursing Past Med/Soc Hx Patient Social History 2nd Hand Smoke Exposure: No Recent Infectious Disease Expo: No Recent Hopitalizations: No Immunizations Up To Date Tetanus Booster (TDap): More than 5yrs Date of Pneumonia Vaccine: Apr 15, 2015 Date of Influenza Vaccine: Jun 25, 2019 Seasonal Allergies Seasonal Allergies: No Past Medical History Surgeries: Yes (R knee replaced x2, port, c/s x3, hernia x5, rotator cuff, left wrist) Abdominal, Appendectomy, Hysterectomy, Joint Replacement, Neurological, Orthopedic, Thyroidectomy, Tonsillectomy Respiratory: Yes Asthma, Pneumonia, Chronic Bronchitis, Pulmonary Embolism, Sleep Apnea Currently Using CPAP: Yes Cardiac: Yes High Cholesterol Neurological: Yes (CHIARI MALFORMATION--SURGICAL REPAIR; RESTLESS LEG SYNDROME) Reproductive Disorders: No Female Reproductive Disorders: 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 CHRONIC ABDOMINAL PAIN) Chronic Constipation, Chronic Diarrhea Musculoskeletal: Yes Arthritis, Chronic Back Pain Endocrine: Yes (BENIGN MASS LEFT THYROID REMOVED 01/01/2013) Diabetes, Non-Insulin dep HEENT: Yes Cataract Loss of Vision: Denies Hearing Impairment: Denies Cancer: No Psychosocial: Yes Anxiety, Depression Integumentary: No Blood Disorders: No Adverse Reaction/Blood Tranf: No Family Medical History Cancer 03 FATHER (PANCREATIC, PASSED AT 65 FROM THIS) Cataract 03 MOTHER Dementia 03 MOTHER Family history: Arthritis 03 MOTHER Family history: Cardiovascular disease 03 MOTHER (HIGH CHOLESTEROL, BALOON ARTERIES 2 TIMES) Hearing loss 03 MOTHER Hypercholesterolemia 03 MOTHER Cancer Physical Exam Vital Signs - First Documented 11/02/20 17:30 Temp 36.7 Pulse 97 Resp 16 B/P (MAP) 194/78 (116) Pulse Ox 95 O2 Delivery Room Air Capillary Refill : Less Than 3 Seconds Height: 5'4.00" Weight: 232lbs. 0.0oz. 105.817638za; 39.00 BMI Method:Stated General Appearance: WD/WN, no apparent distress Eyes: Bilateral Eye Normal Inspection, Bilateral Eye PERRL, Bilateral Eye EOMI HEENT: PERRL/EOMI, normal ENT inspection, TMs normal, pharynx normal Neck: non-tender, full range of motion, supple, normal inspection Respiratory: chest non-tender, lungs clear, normal breath sounds, no respiratory distress, no accessory muscle use Cardiovascular: normal peripheral pulses, regular rate, rhythm, no edema Gastrointestinal: normal bowel sounds, non tender, soft Extremities: normal range of motion, non-tender, normal inspection, no pedal edema, no calf tenderness, normal capillary refill Neurologic/Psychiatric: no motor/sensory deficits, alert, normal mood/affect, oriented x 3 Skin: normal color, warm/dry Lymphatic: no adenopathy Progress/Results/Core Measures Suspected Sepsis Recent Fever Within 48 Hours: No Infection Criteria Present: None New/Unexplained Altered Menta: No Sepsis Screen: No Definite Risk SIRS Temperature: Pulse: 97 Respiratory Rate: 16 Blood Pressure 194 /78 Mean: 116 Results/Orders Lab Results Laboratory Tests Test 11/02/20 17:45 Range/Units Group A Streptococcus Screen NEGATIVE NEGATIVE My Orders Orders - [facility] Rapid Strep A Screen (11/02/20 17:48) Vital Signs/I&O 11/02/20 17:30 Temp 36.7 Pulse 97 Resp 16 B/P (MAP) 194/78 (116) Pulse Ox 95 O2 Delivery Room Air Capillary Refill : Less Than 3 Seconds Blood Pressure Mean: 116 Progress Note : Time: 17:30 Progress Note Patient seen and evaluated. Will check for strep. Sarwat Manriquez, ethylene plant operator to obtain COVID results from tomorrow. Patient stable, afebrile. 1800 Step Neg. Continues with no complaints. Discussed the bamlinivimab infusion, patient understands this is under emergency approval and is still considered experimental since it is an unapproved drug, risk factors reviewed and patient education reviewed. Alternatives in treatment reviewed. Discharge instructions and return precautions reviewed with the patient. All questions answered. Departure Impression Primary Impression: Cough Additional Impression: COVID-19 virus infection Disposition: HOME, SELF-CARE Condition: Stable Departure-Patient Inst. Decision time for Depature: 18:10 Referrals: SABIHA MAXWELL MD (PCP/Family) Primary Care Physician Patient Instructions: Coronavirus Disease 2019 (COVID-19) (DC) Add. Discharge Instructions: [facility] [facility] will call you tomorrow, if you are a candidate for the BAM infusion. Stay home and isolate, the Health Dept will provide you with your dates. Take an Immune Vitamin with Vit C, D, Zinc. Take Aspirin 81 mg daily. Take Tylenol 650 mg or ibuprofen 600 mg, alternating every 4 hours for fever or pain. Use Muccinex or other over the counter Cough Medicine, as needed. Increase water intake, 16 oz every 2-3 hours, while awake. Walk and move around frequently, at least hourly, while awake. Call your Primary Care doctor, if symptoms are not improving or worsen. Return to the emergency department for fever over 101 degrees not relieved by Tylenol or Ibuprofen. All discharge instructions reviewed with patient and/or family. Voiced understanding. Copy Copies To 1: SABIHA MAXWELL MD, AMY ARNP Nov 02, 2020 18:18
== END 2020-11-02 18:25 | disposition home or self-care (01) ==
LOC: EDUNIT# 17:27 → ER 17:30
DX: R05 Cough (principal); U07.1 COVID-19; E11.9 Type 2 diabetes mellitus without complications; F41.9 Anxiety disorder, unspecified; F32.9 Major depressive disorder, single episode, unspecified; G47.30 Sleep apnea, unspecified; J45.909 Unspecified asthma, uncomplicated; Z73.0 Burn-out; Z96.651 Presence of right artificial knee joint; Z87.01 Personal history of pneumonia (recurrent); Z86.711 Personal history of pulmonary embolism; E78.00 Pure hypercholesterolemia, unspecified; Z87.798 Personal history of other (corrected) congenital malformations; Z86.018 Personal history of other benign neoplasm; Z79.01 Long term (current) use of anticoagulants; Z79.84 Long term (current) use of oral hypoglycemic drugs; Z80.0 Family history of malignant neoplasm of digestive organs
CPT/HCPCS: 87430; 99284

== ENCOUNTER 2020-11-03 12:00 | Outpatient (CLI) | payer MEDICARE, OTHER ==
[~2020-11-03] VITALS: Ht 167.7 cm; Wt 111.0 kg
[2020-11-03 12:00] VITALS: BP 185/82
[2020-11-03] MEDS ORDERED: BAMLANIVIMAB (NON FORM) 700 MG in NS (IVPB) 100 ML IV ONE (12:15)
[2020-11-03] MEDS ORDERED: diphenhydrAMINE 50 MG/ML INJ (BENADRYL) IV PRN (12:15)
[2020-11-03] MEDS ORDERED: EPINEPHrine INJECTION 1 MG/ML AMP IM PRN (12:15)
[2020-11-03 13:20] VITALS: BP 184/77
== END 2020-11-03 13:45 | disposition home or self-care (01) ==
LOC: INFUSION 12:00
PROVIDERS: ATTEND Nurse Practitioner
DX: Z23 Encounter for immunization (principal); U07.1 COVID-19

== ENCOUNTER 2020-11-03 19:30 | Emergency (ER) | payer MEDICARE, OTHER ==
[~2020-11-03] VITALS: Ht 167.7 cm; Wt 108.9 kg
[2020-11-03] MEDS ORDERED: LACTATED RINGERS 1,000 ML IV ONE (20:15)
[2020-11-03 20:29] LABS: BASOPHILS % (AUTO) 0 % (0-10); EOSINOPHILS # (AUTO) 0.1 10^3/uL (0.0-0.3); EOSINOPHILS % (AUTO) 1 % (0-10); HEMATOCRIT 44 % (35-52); HEMOGLOBIN 14.4 g/dL (11.5-16.0); LYMPHOCYTES # (AUTO) 1.1 10^3/uL (1.0-4.0); LYMPHOCYTES % (AUTO) 11 % (12-44); MEAN CORPUSCULAR HEMOGLOBIN 28 pg (25-34); MEAN CORPUSCULAR HGB CONC 33 g/dL (32-36); MEAN CORPUSCULAR VOLUME 87 fL (80-99); MEAN PLATELET VOLUME 10.6 fL (9.0-12.2); MONOCYTES # (AUTO) 0.8 10^3/uL (0.0-1.0); MONOCYTES % (AUTO) 8 % (0-12); NEUTROPHILS # (AUTO) 8.3 10^3/uL (1.8-7.8); NEUTROPHILS % (AUTO) 80 % (42-75); PLATELET COUNT 179 10^3/uL (130-400); WHITE BLOOD COUNT 10.5 10^3/uL (4.3-11.0)
[2020-11-03] MEDS ORDERED: PRAMIPEXOLE 0.5 MG TAB (MIRAPEX) PO ONE (20:30)
--- NOTE | 2020-11-03 20:50 | Diagnostic Imaging Report ---
EXAMINATION: Chest radiograph, portable AP view. DATE: 11/03/2020 8:42 PM INDICATION: 70-year-old female. COMPARISON: July 24, 2020. FINDINGS: There is a right-sided port catheter with tip overlying the mid SVC. Stable overall appearance of the cardiomediastinal silhouette. There is no identified pneumothorax. There is no large pleural effusion. There is no identified interval focal airspace consolidation. IMPRESSION: No identified acute cardiopulmonary abnormality. Dictated by: Dictated on workstation # [id number]
[2020-11-03 21:07] LABS: ALBUMIN 3.8 GM/DL (3.2-4.5); BILIRUBIN,TOTAL 0.6 MG/DL (0.1-1.0); CALCIUM 9.1 MG/DL (8.5-10.1); CREATININE SERUM 0.98 MG/DL (0.60-1.30); MAGNESIUM 1.7 MG/DL (1.6-2.4); POTASSIUM 3.8 MMOL/L (3.6-5.0); TOTAL PROTEIN 6.5 GM/DL (6.4-8.2)
--- NOTE | 2020-11-03 22:12 | ED General ---
General Chief Complaint: Cough/Cold/Flu Symptoms Stated Complaint: DIZZY / CHILLS / SOB Nursing Triage Note: PT TO ROOM 09 VIA W/C WITH C/O CHILLS, SHAKEY, SWEATY, AND "DON'T FEEL GOOD". PT REPORTS TESTING POS FOR COVID19 ON FRIDAY. Nursing Sepsis Screen: Possible Severe Sepsis Risk Source of Information: Patient Exam Limitations: No Limitations History of Present Illness Date Seen by Provider: Nov 03, 2020 Time Seen by Provider: 20:10 Initial Comments This is a 70-year-old woman presents to the emergency room with flulike symptoms including chills, shakiness, and restless legs. She was recently diagnosed with COVID-19 about 48 hours ago. She was diagnosed when doing her preoperative screening as she was preparing for colonoscopy and esophageal Botox injection at [facility]. She was additionally starting the bowel prep for colonoscopy. She has therefore had diarrhea. Interestingly, patient also had COVID-19 in April of last year. 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 Allergies and Home Medications Allergies Coded Allergies: No Known Drug Allergies (Unverified , 02/11/14) Home Medications Albuterol Sulfate 1 Puff Puff, 2 PUFF INH Q6H PRN for SHORTNESS OF BREATH, (Reported) Alprazolam 0.5 Mg Tablet, 0.5 MG PO TID PRN for ANXIETY, (Reported) Amitriptyline HCl 75 Mg Tablet, 75 MG PO HS, (Reported) Apixaban 5 Mg Tablet, 5 MG PO BID, (Reported) Ascorbate Calcium 500 Mg Tablet, 500 MG PO DAILY, (Reported) Celecoxib 200 Mg Capsule, 200 MG PO DAILY, (Reported) Citalopram Hydrobromide 20 Mg Tablet, 20 MG PO HS, (Reported) Dexamethasone 6 Mg Tablet, 6 MG PO DAILY Prescribed by: HONORIO HAMPTON on 06/01/20 1049 Dicyclomine HCl 10 Mg Capsule, 10 MG PO TID PRN for SPASMS, (Reported) Ferrous Sulfate 325 Mg Tablet, 325 MG PO DAILY, (Reported) Gabapentin 600 Mg Tablet, 600 MG PO TID, (Reported) Glipizide 10 Mg Tablet, 10 MG PO DAILY, (Reported) Hydrochlorothiazide 25 Mg Tablet, 25 MG PO DAILY, (Reported) Hydrocodone/Acetaminophen 1 Each Tablet, 1 EA PO Q6H PRN for PAIN-MODERATE (5- 7), (Reported) Lactobacillus Combo No.10 1 Each Capsule, 1 CAP PO DAILY, (Reported) Levofloxacin 500 Mg Tablet, 500 MG PO DAILY Prescribed by: JETHRO RICE on 07/24/201946 Montelukast Sodium 10 Mg Tablet, 10 MG PO DAILY, (Reported) Pantoprazole Sodium 40 Mg Tablet.dr, 40 MG PO DAILY PRN for HEARTBURN, (Reported) Pramipexole Di-HCl 1 Mg Tablet, 1 MG PO TID, (Reported) Zolpidem Tartrate 12.5 Mg Tab.mphase, 12.5 MG PO HS, (Reported) Patient Home Medication List Home Medication List Reviewed: Yes Review of Systems Review of Systems Constitutional: see HPI EENTM: no symptoms reported Respiratory: see HPI Cardiovascular: no symptoms reported Gastrointestinal: no symptoms reported Genitourinary: no symptoms reported : No Musculoskeletal: no symptoms reported Skin: no symptoms reported Psychiatric/Neurological: No Symptoms Reported Past Kumceqw-Rnwlqc-Kbimag Hx Past Med/Social Hx: Reviewed Nursing Past Med/Soc Hx Patient Social History Alcohol Use: Rarely Uses Smoking Status: Never a Smoker 2nd Hand Smoke Exposure: No Recent Infectious Disease Expo: No Recent Hopitalizations: No Immunizations Up To Date Tetanus Booster (TDap): More than 5yrs Date of Pneumonia Vaccine: Apr 15, 2015 Date of Influenza Vaccine: Jun 25, 2019 Seasonal Allergies Seasonal Allergies: No Past Medical History Surgeries: Yes (R knee replaced x2, port, c/s x3, hernia x5, rotator cuff, left wrist) Abdominal, Appendectomy, Hysterectomy, Joint Replacement, Neurological, Orthopedic, Thyroidectomy, Tonsillectomy Respiratory: Yes Asthma, Pneumonia, Chronic Bronchitis, Pulmonary Embolism, Sleep Apnea Currently Using CPAP: Yes Cardiac: Yes High Cholesterol Neurological: Yes (CHIARI MALFORMATION--SURGICAL REPAIR; RESTLESS LEG SYNDROME) Reproductive Disorders: No Female Reproductive Disorders: 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 CHRONIC ABDOMINAL PAIN) Chronic Constipation, Chronic Diarrhea Musculoskeletal: Yes Arthritis, Chronic Back Pain Endocrine: Yes (BENIGN MASS LEFT THYROID REMOVED 01/01/2013) Diabetes, Non-Insulin dep HEENT: Yes Cataract Loss of Vision: Denies Hearing Impairment: Denies Cancer: No Psychosocial: Yes Anxiety, Depression Integumentary: No Blood Disorders: No Adverse Reaction/Blood Tranf: No Family Medical History Cancer 03 FATHER (PANCREATIC, PASSED AT 65 FROM THIS) Cataract 03 MOTHER Dementia 03 MOTHER Family history: Arthritis 03 MOTHER Family history: Cardiovascular disease 03 MOTHER (HIGH CHOLESTEROL, BALOON ARTERIES 2 TIMES) Hearing loss 03 MOTHER Hypercholesterolemia 03 MOTHER Cancer Physical Exam Vital Signs Vital Signs - First Documented 11/03/20 11/03/20 19:52 22:15 Temp 38.0 Pulse 110 Resp 17 B/P (MAP) 184/83 (116) Pulse Ox 98 O2 Delivery Room Air Capillary Refill : Less Than 3 Seconds Height, Weight, BMI Height: 5'4.00" Weight: 232lbs. 0.0oz. 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0 10^3/uL Red Blood Count 5.08 3.80-5.11 10^6/uL Hemoglobin 14.4 11.5-16.0 g/dL Hematocrit 44 35-52 % Mean Corpuscular Volume 87 80-99 fL Mean Corpuscular Hemoglobin 28 25-34 pg Mean Corpuscular Hemoglobin Concent 33 32-36 g/dL Red Cell Distribution Width 14.6 H 10.0-14.5 % Platelet Count 179 130-400 10^3/uL Mean Platelet Volume 10.6 9.0-12.2 fL Immature Granulocyte % (Auto) 1 % Neutrophils (%) (Auto) 80 H 42-75 % Lymphocytes (%) (Auto) 11 L 12-44 % Monocytes (%) (Auto) 8 0-12 % Eosinophils (%) (Auto) 1 0-10 % Basophils (%) (Auto) 0 0-10 % Neutrophils # (Auto) 8.3 H 1.8-7.8 10^3/uL Lymphocytes # (Auto) 1.1 1.0-4.0 10^3/uL Monocytes # (Auto) 0.8 0.0-1.0 10^3/uL Eosinophils # (Auto) 0.1 0.0-0.3 10^3/uL Basophils # (Auto) 0.0 0.0-0.1 10^3/uL Immature Granulocyte # (Auto) 0.1 0.0-0.1 10^3/uL Sodium Level 137 135-145 MMOL/L Potassium Level 3.8 3.6-5.0 MMOL/L Chloride Level 101 98-107 MMOL/L Carbon Dioxide Level 23 21-32 MMOL/L Anion Gap 13 5-14 MMOL/L Blood Urea Nitrogen 14 7-18 MG/DL Creatinine 0.98 0.60-1.30 MG/DL Estimat Glomerular Filtration Rate 56 BUN/Creatinine Ratio 14 Glucose Level 309 H 70-105 MG/DL Calcium Level 9.1 8.5-10.1 MG/DL Corrected Calcium 9.3 8.5-10.1 MG/DL Magnesium Level 1.7 1.6-2.4 MG/DL Total Bilirubin 0.6 0.1-1.0 MG/DL Aspartate Amino Transf (AST/SGOT) 47 H 5-34 U/L Alanine Aminotransferase (ALT/SGPT) 35 0-55 U/L Alkaline Phosphatase 136 40-136 U/L Lactate Dehydrogenase 173 125-220 U/L C-Reactive Protein High Sensitivity 3.96 H 0.00-0.50 MG/DL Total Protein 6.5 6.4-8.2 GM/DL Albumin 3.8 3.2-4.5 GM/DL Procalcitonin 0.37 H <0.10 NG/ML Micro Results Microbiology 11/03/20 Influenza Types A,B Antigen (ADAMARIS) - Final, Complete My Orders Orders - GIOVANNI SAUCEDA MD Cbc With Automated Diff (11/03/20 20:13) Comprehensive Metabolic Panel (11/03/20 20:13) Hs C Reactive Protein (11/03/20 20:13) Magnesium (11/03/20 20:13) Ed Iv/Invasive Line Start (11/03/20 20:13) Procalcitonin (Pct) (11/03/20 20:13) LDH (11/03/20 20:13) Chest 1 View, Ap/Pa Only (11/03/20 20:13) Ed Iv/Invasive Line Start (11/03/20 20:13) Lactated Ringers (Lr 1000 Ml Iv Solution (11/03/20 20:15) Pramipexole Tablet (Mirapex Tablet) (11/03/20 20:30) Influenza A And B Antigens (11/03/20 20:19) Medications Given in ED Current Medications Medications Dose Ordered Sig/Eloise Route Start Time Stop Time Status Last Admin Dose Admin Lactated Ringer's 1,000 ml @ 0 mls/hr Q0M ONCE IV 11/03/20 20:15 11/03/20 20:16 DC 11/03/20 20:20 999 MLS/HR Pramipexole 1 mg ONCE ONCE PO 11/03/20 20:30 11/03/20 20:31 DC 11/03/20 21:05 1 MG Vital Signs/I&O 11/03/20 11/03/20 11/03/20 19:52 19:56 22:15 Temp 38.0 Pulse 110 67 Resp 17 B/P (MAP) 184/83 (116) 149/82 Pulse Ox 98 O2 Delivery Room Air Room Air Room Air 11/04/20 00:00 Intake Total 1000 ml Balance 1000 ml Capillary Refill : Less Than 3 Seconds Blood Pressure Mean: 116 Progress Note : Progress Note Patient was treated with a liter of IV fluid. She was given her usual dose of Mirapex. She was feeling better after these treatments. Work-up was unremarkable. Diagnostic Imaging Diagonstic Imaging: Xray Plain Films/CT/US/NM/MRI: chest Comments NAME: [facility] REC#: [id number] PT STATUS: REG ER : 1950 PHYSICIAN: GIOVANNI SAUCEDA MD ADMIT DATE: 11/03/20/ER Signed Date of Exam:11/03/20 CHEST 1 VIEW, AP/PA ONLY EXAMINATION: Chest radiograph, portable AP view. DATE: 11/03/2020 8:42 PM INDICATION: 70-year-old female. COMPARISON: July 24, 2020. FINDINGS: There is a right-sided port catheter with tip overlying the mid SVC. Stable overall appearance of the cardiomediastinal silhouette. There is no identified pneumothorax. There is no large pleural effusion. There is no identified interval focal airspace consolidation. IMPRESSION: No identified acute cardiopulmonary abnormality. Dictated by: Dictated on workstation # [id number] Dict: 11/03/202042 Trans: 11/03/202047 PJE [id number] Interpreted by: THERESE THOMPSON MD Electronically signed by: THERESE THOMPSON MD 11/03/202047 Departure Impression Primary Impression: COVID-19 virus infection Additional Impressions: Restless leg syndrome Hypovolemia Disposition: 01 HOME, SELF-CARE Condition: Improved Departure-Patient Inst. Decision time for Depature: 22:10 Referrals: SABIHA MAXWELL MD (PCP/Family) Primary Care Physician Patient Instructions: Coronavirus Disease 2019 (COVID-19) Overview Add. Discharge Instructions: Drink plenty of clear liquids to stay well-hydrated. Monitor your oxygen saturation frequently. If you start noticing oxygen saturations less than 92%, please return to the emergency room. You may call prior to coming. Call with any questions or concerns. Some experts believe supplementation with multivitamin, zinc, extra vitamin D, extra vitamin C, and elderberry are beneficial. You may use the supplements following package instructions and being cautious not to overdose on any particular component. You are advised to discuss this further with your primary care provider. Return to the ER with worsening symptoms. All discharge instructions reviewed with patient and/or family. Voiced understanding. Copy Copies To 1: SABIHA MAXWELL MD, JOSHUA T MD Nov 03, 2020 22:12
[2020-11-03 22:15] VITALS: BP 149/82
== END 2020-11-03 22:15 | disposition home or self-care (01) ==
LOC: EDUNIT# 19:30 → ER 19:32
DX: U07.1 COVID-19 (principal); E86.1 Hypovolemia; G25.81 Restless legs syndrome; E11.9 Type 2 diabetes mellitus without complications; F41.9 Anxiety disorder, unspecified; F32.9 Major depressive disorder, single episode, unspecified; G47.30 Sleep apnea, unspecified; J45.909 Unspecified asthma, uncomplicated; Z73.0 Burn-out; Z87.01 Personal history of pneumonia (recurrent); Z96.651 Presence of right artificial knee joint; Z86.711 Personal history of pulmonary embolism; Z87.798 Personal history of other (corrected) congenital malformations; Z86.018 Personal history of other benign neoplasm; Z79.01 Long term (current) use of anticoagulants; Z79.84 Long term (current) use of oral hypoglycemic drugs; Z79.890 Hormone replacement therapy
CPT/HCPCS: 36415; 71045; 80053; 83615; 83735; 84145; 85025; 86141; 87804

== ENCOUNTER 2020-11-08 09:53 | Emergency (ER) | payer MEDICARE, OTHER ==
[~2020-11-08] VITALS: Ht 167 cm; Wt 113.0 kg
[2020-11-08] MEDS ORDERED: NS IV 1000 ML 1,000 ML ONE (10:15)
--- NOTE | 2020-11-08 10:19 | ED General ---
General Stated Complaint: COVID + SOA/HEADACHE/COUGHING Source of Information: Patient Exam Limitations: No Limitations History of Present Illness Date Seen by Provider: Nov 08, 2020 Time Seen by Provider: 10:00 Initial Comments Patient is a 70-year-old female who presents to the emergency department today with a chief complaint of shortness of breath, cough, sore throat, diarrhea, generalized malaise and body aches. Patient tested positive for Covid 7 days ago. She received the Bam therapy on the following Friday. Patient states that she started feeling more and more short of breath over the last couple of days. She has had a cough productive of green "slimy sputum". She states she feels generally weak and tired. She has had mild headache as well. This is the patient's second bout with Covid. Patient states that she tested positive in May 2020 and had a 1 week hospital stay at that time. Patient denies any history of heart disease. Per review of the medical record the patient has a longstanding history of COPD and also has had spontaneous pulmonary embolism chronically anticoagulated on Eliquis. She is a former smoker having started and quit in her college years. She is diabetic. She is on insulin and oral medications for diabetes. She denies swelling in her legs or cramping in her calves. All other review of systems reviewed and negative except as stated. Timing/Duration: 1-2 Days Severity: Moderate Modifying Factors: worse with Movement; improves with Rest Associated Systoms: Fever/Chills, Malaise, Shortness of Air, Other (diarrhea) Allergies and Home Medications Allergies Coded Allergies: No Known Drug Allergies (Unverified , 02/11/14) Home Medications Albuterol Sulfate 1 Puff Puff, 2 PUFF INH Q6H PRN for SHORTNESS OF BREATH, (Reported) Amitriptyline HCl 75 Mg Tablet, 75 MG PO HS, (Reported) Apixaban 5 Mg Tablet, 5 MG PO BID, (Reported) Ascorbate Calcium 500 Mg Tablet, 500 MG PO DAILY, (Reported) Citalopram Hydrobromide 20 Mg Tablet, 20 MG PO HS, (Reported) Dexamethasone 6 Mg Tablet, 6 MG PO DAILY Prescribed by: HONORIO HAMPTON on 06/01/20 1049 Dicyclomine HCl 10 Mg Capsule, 10 MG PO TID PRN for SPASMS, (Reported) Ferrous Sulfate 325 Mg Tablet, 325 MG PO DAILY, (Reported) Glipizide 10 Mg Tablet, 10 MG PO DAILY, (Reported) Hydrochlorothiazide 25 Mg Tablet, 25 MG PO DAILY, (Reported) Hydrocodone/Acetaminophen 1 Each Tablet, 1 EA PO Q6H PRN for PAIN-MODERATE (5-7 ), (Reported) Lactobacillus Combo No.10 1 Each Capsule, 1 CAP PO DAILY, (Reported) Pantoprazole Sodium 40 Mg Tablet.dr, 40 MG PO DAILY PRN for HEARTBURN, (Reported) Pramipexole Di-HCl 1 Mg Tablet, 1 MG PO TID, (Reported) Zolpidem Tartrate 12.5 Mg Tab.mphase, 12.5 MG PO HS, (Reported) Patient Home Medication List Home Medication List Reviewed: Yes Past Lvxeaem-Ycuvfb-Coivbp Hx Patient Social History 2nd Hand Smoke Exposure: No Recent Hopitalizations: No Immunizations Up To Date Tetanus Booster (TDap): More than 5yrs Date of Pneumonia Vaccine: Apr 15, 2015 Date of Influenza Vaccine: Jun 25, 2019 Seasonal Allergies Seasonal Allergies: No Past Medical History Surgeries: Yes (R knee replaced x2, port, c/s x3, hernia x5, rotator cuff, left wrist) Abdominal, Appendectomy, Hysterectomy, Joint Replacement, Neurological, Orthopedic, Thyroidectomy, Tonsillectomy Respiratory: Yes Asthma, Pneumonia, Chronic Bronchitis, Pulmonary Embolism, Sleep Apnea Currently Using CPAP: Yes Cardiac: Yes High Cholesterol Neurological: Yes (CHIARI MALFORMATION--SURGICAL REPAIR; RESTLESS LEG SYNDROME) Reproductive Disorders: No Female 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 CHRONIC ABDOMINAL PAIN) Chronic Constipation, Chronic Diarrhea Musculoskeletal: Yes Arthritis, Chronic Back Pain Endocrine: Yes (BENIGN MASS LEFT THYROID REMOVED 01/01/2013) Diabetes, Non-Insulin dep HEENT: Yes Cataract Loss of Vision: Denies Hearing Impairment: Denies Cancer: No Psychosocial: Yes Anxiety, Depression Integumentary: No Blood Disorders: No Adverse Reaction/Blood Tranf: No Family Medical History Cancer 03 FATHER (PANCREATIC, PASSED AT 65 FROM THIS) Cataract 03 MOTHER Dementia 03 MOTHER Family history: Arthritis 03 MOTHER Family history: Cardiovascular disease 03 MOTHER (HIGH CHOLESTEROL, BALOON ARTERIES 2 TIMES) Hearing loss 03 MOTHER Hypercholesterolemia 03 MOTHER Cancer Physical Exam Vital Signs Vital Signs - First Documented 11/08/20 10:00 Temp 38.4 Pulse 96 Resp 32 B/P (MAP) 157/88 (111) Pulse Ox 95 O2 Delivery Room Air Capillary Refill : Height, Weight, BMI Height: 5'4.00" Weight: 232lbs. 0.0oz. 105.952848sr; 38.00 BMI Method:Stated Focused Exam Lactate Level 11/08/20 10:15: Lactic Acid Level 2.05*H 11/08/20 12:25: Lactic Acid Level 1.78 Lactic Acid Level Laboratory Tests Test 11/08/20 10:15 11/08/20 12:25 Lactic Acid Level 2.05 MMOL/L (0.50-2.00) *H 1.78 MMOL/L (0.50-2.00) Progress/Results/Core Measures Suspected Sepsis SIRS Temperature: Pulse: Respiratory Rate: Laboratory Tests 11/08/20 10:15: White Blood Count 7.0 Blood Pressure / Mean: 11/08/20 10:15: Lactic Acid Level 2.05*H 11/08/20 12:25: Lactic Acid Level 1.78 Laboratory Tests 11/08/20 10:15: Creatinine 0.79, INR Comment 1.1, Platelet Count 175, Total Bilirubin 0.7 Results/Orders Lab Results Laboratory Tests Test 11/08/20 10:15 11/08/20 12:25 11/08/20 13:40 Range/Units White Blood Count 7.0 4.3-11.0 10^3/uL Red Blood Count 4.71 3.80-5.11 10^6/uL Hemoglobin 13.4 11.5-16.0 g/dL Hematocrit 41 35-52 % Mean Corpuscular Volume 87 80-99 fL Mean Corpuscular Hemoglobin 29 25-34 pg Mean Corpuscular Hemoglobin Concent 33 32-36 g/dL Red Cell Distribution Width 14.5 10.0-14.5 % Platelet Count 175 130-400 10^3/uL Mean Platelet Volume 10.4 9.0-12.2 fL Immature Granulocyte % (Auto) 1 % Neutrophils (%) (Auto) 78 H 42-75 % Lymphocytes (%) (Auto) 16 12-44 % Monocytes (%) (Auto) 5 0-12 % Eosinophils (%) (Auto) 1 0-10 % Basophils (%) (Auto) 0 0-10 % Neutrophils # (Auto) 5.5 1.8-7.8 10^3/uL Lymphocytes # (Auto) 1.1 1.0-4.0 10^3/uL Monocytes # (Auto) 0.4 0.0-1.0 10^3/uL Eosinophils # (Auto) 0.1 0.0-0.3 10^3/uL Basophils # (Auto) 0.0 0.0-0.1 10^3/uL Immature Granulocyte # (Auto) 0.0 0.0-0.1 10^3/uL Prothrombin Time 14.6 12.2-14.7 SEC INR Comment 1.1 0.8-1.4 Activated Partial Thromboplast Time 35 24-35 SEC Sodium Level 134 L 135-145 MMOL/L Potassium Level 4.0 3.6-5.0 MMOL/L Chloride Level 99 98-107 MMOL/L Carbon Dioxide Level 25 21-32 MMOL/L Anion Gap 10 5-14 MMOL/L Blood Urea Nitrogen 12 7-18 MG/DL Creatinine 0.79 0.60-1.30 MG/DL Estimat Glomerular Filtration Rate > 60 BUN/Creatinine Ratio 15 Glucose Level 259 H 70-105 MG/DL Lactic Acid Level 2.05 *H 1.78 0.50-2.00 MMOL/L Calcium Level 9.1 8.5-10.1 MG/DL Corrected Calcium 9.5 8.5-10.1 MG/DL Total Bilirubin 0.7 0.1-1.0 MG/DL Aspartate Amino Transf (AST/SGOT) 20 5-34 U/L Alanine Aminotransferase (ALT/SGPT) 20 0-55 U/L Alkaline Phosphatase 135 40-136 U/L C-Reactive Protein High Sensitivity 11.45 H 0.00-0.50 MG/DL Total Protein 6.2 L 6.4-8.2 GM/DL Albumin 3.5 3.2-4.5 GM/DL Procalcitonin 0.20 H <0.10 NG/ML Urine Color YELLOW Urine Clarity CLEAR Urine pH 6.5 5-9 Urine Specific [place] <=1.005 1.016-1.022 Urine Protein NEGATIVE NEGATIVE Urine Glucose (UA) NEGATIVE NEGATIVE Urine Ketones NEGATIVE NEGATIVE Urine Nitrite NEGATIVE NEGATIVE Urine Bilirubin NEGATIVE NEGATIVE Urine Urobilinogen 0.2 < = 1.0 MG/DL Urine Leukocyte Esterase NEGATIVE NEGATIVE Urine RBC (Auto) NEGATIVE NEGATIVE Urine RBC NONE /HPF Urine WBC RARE /HPF Urine Crystals NONE /LPF Urine Bacteria NEGATIVE /HPF Urine Casts NONE /LPF Urine Mucus NEGATIVE /LPF Urine Culture Indicated NO My Orders Orders - MAGALI TREVINO MD Cbc With Automated Diff (11/08/20 10:12) Comprehensive Metabolic Panel (11/08/20 10:12) Blood Culture (11/08/20 10:12) Sputum Culture (11/08/20 10:12) Protime With Inr (11/08/20 10:12) Partial Thromboplastin Time (11/08/20 10:12) Chest 1 View, Ap/Pa Only (11/08/20 10:12) Ed Iv/Invasive Line Start (11/08/20 10:12) Ed Iv/Invasive Line Start (11/08/20 10:12) Vital Signs Adult Sepsis Patie Q15M (11/08/20 10:12) O2 (11/08/20 10:12) Remove Rings In Anticipation O (11/08/20 10:12) Lactic Acid Analyzer (11/08/20 10:12) Procalcitonin (Pct) (11/08/20 10:12) Hs C Reactive Protein (11/08/20 10:12) Ns Iv 1000 Ml (Sodium Chloride 0.9%) (11/08/20 10:15) Ct Angio Chest W (11/08/20 10:49) Ns Iv 1000 Ml (Sodium Chloride 0.9%) (11/08/20 11:45) Iohexol Injection (Omnipaque 350 Mg/Ml 1 (11/08/20 11:45) Received Contrast (Hold Metformin- Contr (11/08/20 11:45) Sodium Chloride Flush (Catheter Flush Sy (11/08/20 11:45) Ns (Ivpb) (Sodium Chloride 0.9% Ivpb Bag (11/08/20 11:45) Ua Culture If Indicated (11/08/20 13:10) Medications Given in ED Current Medications Medications Dose Ordered Sig/Eloise Route Start Time Stop Time Status Last Admin Dose Admin Iohexol 100 ml ONCE ONCE IV 11/08/20 11:45 11/08/20 11:46 DC 11/08/20 11:58 84 ML Sodium Chloride 100 ml ONCE ONCE IV 11/08/20 11:45 11/08/20 11:46 DC 11/08/20 11:58 80 ML Sodium Chloride 1,000 ml @ STK-MED ONCE .ROUTE 11/08/20 10:15 11/08/20 10:21 DC 11/08/20 10:25 1,000 MLS/HR Vital Signs/I&O 11/08/20 11/08/20 10:00 10:00 Temp 38.4 Pulse 96 Resp 32 B/P (MAP) 157/88 (111) Pulse Ox 95 O2 Delivery Room Air Capillary Refill : Departure Impression Primary Impression: Pneumonia due to COVID-19 virus Disposition: HOME, SELF-CARE Condition: Stable Departure-Patient Inst. Decision time for Depature: 14:48 Referrals: SABIHA MAXWELL MD (PCP/Family) Primary Care Physician Patient Instructions: Coronavirus Disease 2019 (COVID-19) ED Add. Discharge Instructions: Drink plenty of fluids to stay well-hydrated. Continue your home daily medications. Use your inhalers every 4-6 hours as needed for shortness of breath. Please follow-up closely with your primary care physician, I recommend you see him this week. Return to the emergency room for any worsening shortness of breath, oxygen saturations that are below 90 consistently or any other emergent concerning symptoms. MAGALI TREVINO MD Nov 08, 2020 10:18
[2020-11-08 10:29] LABS: BASOPHILS % (AUTO) 0 % (0-10); EOSINOPHILS # (AUTO) 0.1 10^3/uL (0.0-0.3); EOSINOPHILS % (AUTO) 1 % (0-10); HEMATOCRIT 41 % (35-52); HEMOGLOBIN 13.4 g/dL (11.5-16.0); LYMPHOCYTES # (AUTO) 1.1 10^3/uL (1.0-4.0); LYMPHOCYTES % (AUTO) 16 % (12-44); MEAN CORPUSCULAR HEMOGLOBIN 29 pg (25-34); MEAN CORPUSCULAR HGB CONC 33 g/dL (32-36); MEAN CORPUSCULAR VOLUME 87 fL (80-99); MEAN PLATELET VOLUME 10.4 fL (9.0-12.2); MONOCYTES # (AUTO) 0.4 10^3/uL (0.0-1.0); MONOCYTES % (AUTO) 5 % (0-12); NEUTROPHILS # (AUTO) 5.5 10^3/uL (1.8-7.8); NEUTROPHILS % (AUTO) 78 % (42-75); PLATELET COUNT 175 10^3/uL (130-400)
[2020-11-08 10:39] LABS: ALBUMIN 3.5 GM/DL (3.2-4.5); CHLORIDE 99 MMOL/L (98-107); SODIUM 134 MMOL/L (135-145)
[2020-11-08 10:40] LABS: CALCIUM 9.1 MG/DL (8.5-10.1); INR 1.1 (0.8-1.4); PROTHROMBIN TIME PATIENT 14.6 SEC (12.2-14.7)
[2020-11-08 10:41] LABS: GLUCOSE 259 MG/DL (70-105); TOTAL PROTEIN 6.2 GM/DL (6.4-8.2)
[2020-11-08 10:42] LABS: CARBON DIOXIDE 25 MMOL/L (21-32)
[2020-11-08 10:43] LABS: BILIRUBIN,TOTAL 0.7 MG/DL (0.1-1.0)
[2020-11-08 10:45] LABS: ALKALINE PHOSPHATASE 135 U/L (40-136); CREATININE SERUM 0.79 MG/DL (0.60-1.30); GFR ESTIMATED > 60
[2020-11-08 10:46] LABS: BUN/CREATININE RATIO 15
[2020-11-08 10:48] LABS: ALANINE AMINOTRANSFERASE 20 U/L (0-55)
--- NOTE | 2020-11-08 10:52 | Diagnostic Imaging Report ---
INDICATION: Headache, dyspnea and cough with COVID infection. AP view of the chest is obtained. Since 11/03/2020 there has been increase in central pulmonary vasculature. Mild increased density in the right perihilar region may represent focal infiltrate or possible adenopathy. There is blunting of left costophrenic sulcus likely due to atelectasis. IMPRESSION: Increasing pulmonary vascularity may be due to venous congestion. There does appear to be left basilar atelectasis with localized right perihilar density which could be due to pneumonitis although underlying adenopathy is not excluded. Followup PA and lateral views of the chest would be of use. Dictated by: Dictated on workstation # [id number]
[2020-11-08] MEDS ORDERED: ESTR42.511 VG (10:54)
[2020-11-08] MEDS ORDERED: SITA1TAB2 PO (10:54)
[2020-11-08] MEDS ORDERED: CELE200C PO (10:54)
[2020-11-08] MEDS ORDERED: SIMV40TA25 PO (10:54)
[2020-11-08] MEDS ORDERED: CATHETER FLUSH 10 ML SYR IV PRN (11:45)
[2020-11-08] MEDS ORDERED: NS IV 1000 ML 1,000 ML IV SCH (11:45)
[2020-11-08] MEDS ORDERED: IOHEXOL 350 MG/ML 100 ML (OMNIPAQUE 350) VIAL IV ONE (11:45)
[2020-11-08] MEDS ORDERED: NS 100 ML (IVPB) BAG IV ONE (11:45)
[2020-11-08] MEDS ORDERED: HOLD METFORMIN - RECEIVED CONTRAST 20 ML VIAL IV SCH (11:45)
--- NOTE | 2020-11-08 12:27 | Diagnostic Imaging Report ---
PROCEDURE: CT angiography Chest TECHNIQUE: After intravenous administration of contrast, thin section axial CT angiography of the chest was performed. 3D MIP reconstructions were made. All CT scans use one or more of the following dose optimizing techniques: automated exposure control, MA and/or KvP adjustment based on a patient size and exam type, or iterative reconstruction. INDICATION: Dyspnea and tachypnea. COVID positive. COMPARISON: CT angiogram chest of 04/15/2020 FINDINGS: Vasculature: No pulmonary emboli. No CT evidence of pulmonary hypertension or right ventricular strain. Thoracic aorta is normal in caliber. No aortic dissection or pseudoaneurysm. Heart and mediastinum: Left hemithyroidectomy. Residual thyroid is grossly normal. No supraclavicular, axillary, or intra-thoracic lymphadenopathy. The heart is normal in size without pericardial effusion. Pleura: No pleural effusion or pneumothorax. Lungs and airway: No endoluminal lesion in the trachea or central bronchi. There are scattered groundglass opacities randomly distributed within the lungs but greatest in the periphery. No pulmonary fibrosis or cavitary lung mass. Upper abdomen: Diffuse hypoattenuation liver is unchanged and likely due to hepatic steatosis. Musculoskeletal: No concerning osseous lesion. IMPRESSION: 1. No pulmonary emboli or acute aortic syndrome. 2. Development of patchy peripheral ground glass pulmonary opacities, typical for COVID 19 pneumonia. Dictated by: Dictated on workstation # [id number]
[2020-11-08 13:52] LABS: BILIRUBIN,URINE NEGATIVE (NEGATIVE); CLARITY,URINE CLEAR; COLOR,URINE YELLOW; GLUCOSE, URINE (UA) NEGATIVE (NEGATIVE); KETONES,URINE NEGATIVE (NEGATIVE); LEUKOCYTE ESTERASE ,URINE NEGATIVE (NEGATIVE); NITRITE,URINE NEGATIVE (NEGATIVE); PH,URINE 6.5 (5-9); PROTEIN,URINE NEGATIVE (NEGATIVE)
[2020-11-08 13:59] LABS: BACTERIA,URINE NEGATIVE /HPF; WBC,URINE RARE /HPF
[2020-11-08 15:00] VITALS: BP 110/54
== END 2020-11-08 15:00 | disposition home or self-care (01) ==
LOC: EDUNIT# 09:53 → ER 09:55
DX: U07.1 COVID-19 (principal); J12.82 Pneumonia due to coronavirus disease 2019; E11.9 Type 2 diabetes mellitus without complications; F41.9 Anxiety disorder, unspecified; F32.9 Major depressive disorder, single episode, unspecified; G47.30 Sleep apnea, unspecified; J44.9 Chronic obstructive pulmonary disease, unspecified; Z73.0 Burn-out; Z86.711 Personal history of pulmonary embolism; Z86.018 Personal history of other benign neoplasm; Z87.798 Personal history of other (corrected) congenital malformations; Z79.01 Long term (current) use of anticoagulants; Z79.84 Long term (current) use of oral hypoglycemic drugs; Z79.52 Long term (current) use of systemic steroids; Z80.0 Family history of malignant neoplasm of digestive organs
CPT/HCPCS: 36415; 71045; 71275; 80053; 81000; 83605; 84145; 85025; 85610; 85730; 86141; 87040

== ENCOUNTER 2020-11-14 08:56 | Inpatient (IN) | payer MEDICARE, OTHER ==
[2020-11-14] VITALS (10 sets, daily range): BP systolic 115–161; BP diastolic 57–83
[~2020-11-14] VITALS: Ht 167 cm; Wt 107.2 kg
[~2020-11-14 08:56] MED LIST changes: +CELE200C PO; +ESTR42.511 VG; +SITA1TAB2 PO
[2020-11-14] MEDS ORDERED: ACETAMINOPHEN 500 MG TAB (TYLENOL) PO ONE (09:30)
[2020-11-14 09:36] LABS: BASOPHILS % (AUTO) 0 % (0-10); EOSINOPHILS % (AUTO) 1 % (0-10); HEMATOCRIT 42 % (35-52); HEMOGLOBIN 13.6 g/dL (11.5-16.0); LYMPHOCYTES # (AUTO) 1.3 10^3/uL (1.0-4.0); LYMPHOCYTES % (AUTO) 19 % (12-44); MEAN CORPUSCULAR HEMOGLOBIN 28 pg (25-34); MEAN CORPUSCULAR HGB CONC 32 g/dL (32-36); MEAN CORPUSCULAR VOLUME 86 fL (80-99); MEAN PLATELET VOLUME 9.9 fL (9.0-12.2); MONOCYTES # (AUTO) 0.3 10^3/uL (0.0-1.0); MONOCYTES % (AUTO) 5 % (0-12); NEUTROPHILS # (AUTO) 5.3 10^3/uL (1.8-7.8); NEUTROPHILS % (AUTO) 75 % (42-75); PLATELET COUNT 210 10^3/uL (130-400)
[2020-11-14 09:50] LABS: FIBRIN DEGRADATION PRODUCTS 0.68 UG/ML (0.00-0.49); INR 1.3 (0.8-1.4); PROTHROMBIN TIME PATIENT 16.3 SEC (12.2-14.7)
[2020-11-14] MEDS ORDERED: RT-ALBUTEROL INHALER HFA (VENTOLIN HFA) 18 GM IH ONE (10:00)
[2020-11-14 10:02] LABS: ALANINE AMINOTRANSFERASE 16 U/L (0-55); ALBUMIN 3.4 GM/DL (3.2-4.5); ALKALINE PHOSPHATASE 185 U/L (40-136); BILIRUBIN,TOTAL 0.7 MG/DL (0.1-1.0); BUN/CREATININE RATIO 16; CALCIUM 9.1 MG/DL (8.5-10.1); CARBON DIOXIDE 23 MMOL/L (21-32); CHLORIDE 98 MMOL/L (98-107); CREATININE SERUM 0.86 MG/DL (0.60-1.30); GFR ESTIMATED > 60; GLUCOSE 232 MG/DL (70-105); POTASSIUM 3.8 MMOL/L (3.6-5.0); SODIUM 133 MMOL/L (135-145); TOTAL PROTEIN 6.8 GM/DL (6.4-8.2)
--- NOTE | 2020-11-14 10:13 | Diagnostic Imaging Report ---
INDICATION: Pneumonia. Sepsis. COMPARISON: 11/08/2020. FINDINGS: A single frontal radiographic view of the chest was obtained and demonstrates interval progression of scattered patchy bilateral alveolar opacities, consistent with pneumonia. There is no large effusion or pneumothorax. The cardiac silhouette and pulmonary vasculature are stable. The right internal jugular Port-A-Cath is again seen with the tip in the SVC. The osseous structures show no acute abnormalities. IMPRESSION: Interval progression of scattered patchy infiltrate appearing opacities. Dictated by: Dictated on workstation # [id number]
[2020-11-14] MEDS ORDERED: CATHETER FLUSH 10 ML SYR IV PRN ×2 (10:30→13:15)
[2020-11-14] MEDS ORDERED: NS 100 ML (IVPB) BAG IV ONE (10:30)
[2020-11-14] MEDS ORDERED: IOHEXOL 350 MG/ML 100 ML (OMNIPAQUE 350) VIAL IV ONE (10:30)
[2020-11-14] MEDS ORDERED: HOLD METFORMIN - RECEIVED CONTRAST 20 ML VIAL IV SCH (10:30)
--- NOTE | 2020-11-14 11:16 | Diagnostic Imaging Report ---
PROCEDURE: CT angiography Chest TECHNIQUE: After intravenous administration of contrast, thin section axial CT angiography of the chest was performed. 3D MIP reconstructions were made. All CT scans use one or more of the following dose optimizing techniques: automated exposure control, MA and/or KvP adjustment based on a patient size and exam type, or iterative reconstruction. INDICATION: COVID positive with dyspnea. COMPARISON: CTA chest from 11/08/2020 FINDINGS: Vasculature: No pulmonary emboli. No CT evidence of pulmonary hypertension or right ventricular strain. Thoracic aorta is normal in caliber. No aortic dissection or pseudoaneurysm. Heart and mediastinum: Left hemithyroidectomy. Multiple small mediastinal and hilar lymph nodes are mildly increased in size and are likely reactive in nature. The heart is normal in size without pericardial effusion. Pleura: No pleural effusion or pneumothorax. Lungs and airway: No endoluminal lesion in the trachea or central bronchi. Multifocal consolidations have now developed in the bilateral perihilar regions. Scattered consolidations are also now mixed with groundglass opacities. Upper abdomen: Diffuse hepatic steatosis is again noted. Musculoskeletal: No concerning osseous lesion. IMPRESSION: 1. No pulmonary emboli. 2. Progression of bilateral pulmonary opacities that are in keeping with COVID 19 pneumonia. Dictated by: Dictated on workstation # [id number]
[2020-11-14] MEDS ORDERED: PIPERACILLIN SODIUM/TAZOBACTAM 4.5 GM in NS (IVPB) 100 ML IV ONE (12:00)
--- NOTE | 2020-11-14 12:12 | ED General ---
General Chief Complaint: Cough/Cold/Flu Symptoms Stated Complaint: SOB,COUGH,CHAMBERS,COVID + Nursing Triage Note: PT TO ED PER W/C. PT IS COVID +. UPON ARRIVAL PT HAS SOA, PT SAT87% ON RA. PT HAS PERSISTANT PROD COUGH, PT HAS FEVER 101.4. THIS IS PT 2ND EPISODE OF COVID. PT STATES ALSO HAS DIARRHEA AND SORETHROAT. Nursing Sepsis Screen: Possible Sepsis Risk Source of Information: Patient, Old Records Exam Limitations: No Limitations History of Present Illness Date Seen by Provider: Nov 14, 2020 Time Seen by Provider: 09:10 Initial Comments This 70-year-old woman presents to the emergency room with complaints of worsening shortness of breath secondary to COVID-19. She is also febrile and has a rather sore throat. She has been seen in this emergency room 3 times since her diagnosis. This started about 2 weeks ago when she had a Covid screening performed in preparation for a colonoscopy at [facility]. She was surprised to be notified of a positive result. She then developed symptoms. She was first seen here on November 03. She also was diagnosed with COVID-19 in May 2020. She did not have a negative test result between the 2 positive test results. She is hypoxic with oxygen saturations in the upper 80s during assessment. Allergies and Home Medications Allergies Coded Allergies: No Known Drug Allergies (Unverified , 02/11/14) Home Medications Albuterol Sulfate 1 Puff Puff, 2 PUFF INH Q6H PRN for SHORTNESS OF BREATH, (Reported) Amitriptyline HCl 75 Mg Tablet, 75 MG PO HS, (Reported) Apixaban 5 Mg Tablet, 5 MG PO BID, (Reported) Celecoxib 200 Mg Capsule, 200 MG PO DAILY, (Reported) Cholecalciferol (Vitamin D3) 25 Mcg Tablet, 25 MCG PO DAILY, (Reported) Cyanocobalamin 1,000 Mcg/Ml Inj, 1,000 MCG IM MONTLY, (Reported) Cyanocobalamin (Vitamin B-12) 1,000 Mcg Tablet, 1,000 MCG PO DAILY, (Reported) Dicyclomine HCl 10 Mg Capsule, 10 MG PO TID PRN for SPASMS, (Reported) Docusate Sodium 100 Mg Capsule, 100 MG PO BID PRN for CONSTIPATION-1ST LINE, (Reported) Estradiol 42.5 Gm Cream.appl, 1 APPLIC VG UD, (Reported) Ferrous Sulfate 325 Mg Tablet, 325 MG PO DAILY, (Reported) Fluconazole 150 Mg Tablet, 150 MG PO MON, (Reported) Glipizide 10 Mg Tablet, 10 MG PO DAILY, (Reported) Hydrochlorothiazide 25 Mg Tablet, 25 MG PO DAILY, (Reported) Hydromorphone HCl 2 Mg Tablet, 2 MG PO Q4H PRN for PAIN-SEVERE (8-10), (Reported) Lactobacillus Combo No.10 1 Each Capsule, 1 CAP PO DAILY, (Reported) Nitrofurantoin Macrocrystal 100 Mg Capsule, 100 MG PO DAILY, (Reported) Pantoprazole Sodium 40 Mg Tablet.dr, 40 MG PO DAILY, (Reported) Polyethylene Glycol 3350 17 Gm Powd.pack, 17 GM PO DAILY PRN for CONSTIPATION- 2ND LINE, (Reported) Pramipexole Di-HCl 1 Mg Tablet, 1 MG PO BID, (Reported) Simvastatin 40 Mg Tablet, 40 MG PO DAILY, (Reported) Sitagliptin Phosphate 100 Mg Tablet, 100 MG PO DAILY, (Reported) Triamcinolone Acet 15 Gm Cr, 1 APPLIC TOP TID PRN for RASH, (Reported) Vitamin E 1,000 Unit Capsule, 1,000 UNIT PO DAILY, (Reported) Zolpidem Tartrate 12.5 Mg Tab.mphase, 12.5 MG PO HS, (Reported) Patient Home Medication List Home Medication List Reviewed: Yes Review of Systems Review of Systems Constitutional: see HPI, fever EENTM: see HPI, throat pain Respiratory: see HPI Cardiovascular: no symptoms reported Gastrointestinal: no symptoms reported Genitourinary: no symptoms reported Musculoskeletal: no symptoms reported Skin: no symptoms reported Psychiatric/Neurological: No Symptoms Reported Hematologic/Lymphatic: No Symptoms Reported Immunological/Allergic: no symptoms reported Past Izosszn-[id number]-Dvjpsh Hx Past Med/Social Hx: Reviewed Nursing Past Med/Soc Hx Patient Social History Alcohol Use: Denies Use Smoking Status: Never a Smoker 2nd Hand Smoke Exposure: No Recent Infectious Disease Expo: No Recent Hopitalizations: No Immunizations Up To Date Tetanus Booster (TDap): More than 5yrs Date of Pneumonia Vaccine: Apr 15, 2015 Date of Influenza Vaccine: Jun 25, 2020 Seasonal Allergies Seasonal Allergies: No Past Medical History Surgeries: Yes (R knee replaced x2, port, c/s x3, hernia x5, rotator cuff, left wrist) Abdominal, Appendectomy, Hysterectomy, Joint Replacement, Neurological, Orthopedic, Thyroidectomy, Tonsillectomy Respiratory: Yes Asthma, Pneumonia, Chronic Bronchitis, Pulmonary Embolism, Sleep Apnea Currently Using CPAP: Yes Cardiac: Yes High Cholesterol Neurological: Yes (CHIARI MALFORMATION--SURGICAL REPAIR; RESTLESS LEG SYNDROME) Reproductive Disorders: No Female Reproductive Disorders: Denies 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 CHRONIC ABDOMINAL PAIN) Chronic Constipation, Chronic Diarrhea Musculoskeletal: Yes Arthritis, Chronic Back Pain Endocrine: Yes (BENIGN MASS LEFT THYROID REMOVED 01/01/2013) Diabetes, Non-Insulin dep HEENT: Yes Cataract Loss of Vision: Denies Hearing Impairment: Denies Cancer: No Psychosocial: Yes Anxiety, Depression Integumentary: No Blood Disorders: No Adverse Reaction/Blood Tranf: No Family Medical History Reviewed Nursing Family Hx Cancer 03 FATHER (PANCREATIC, PASSED AT 65 FROM THIS) Cataract 03 MOTHER Dementia 03 MOTHER Family history: Arthritis 03 MOTHER Family history: Cardiovascular disease 03 MOTHER (HIGH CHOLESTEROL, [place] ARTERIES 2 TIMES) Hearing loss 03 MOTHER Hypercholesterolemia 03 MOTHER Cancer Physical Exam-Suspected Sepsis Physical Exam Vital Signs Vital Signs - First Documented Capillary Refill : Less Than 3 Seconds Blood Pressure Mean: 103 Height, Weight, BMI Height: 5'4.00" Weight: 232lbs. 0.0oz. 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 Norm as Tested Skin: normal color, warm/dry Focused Exam Sepsis Stage: Severe Sepsis Possible Source: Pulmonary Lactate Level 11/14/20 09:15: Lactic Acid Level 2.18*H 11/14/20 12:35: Lactic Acid Level 1.09 Time of Focused Exam: 12:00 Respiratory: Normal Breath Sounds, No Respiratory Distress, Other (coarse) Cardiovascular: Regular Rate, Rhythm, No Edema Capillary Refill: Less Than 3 Seconds Skin: normal color, warm/dry Lactic Acid Level Within 3hrs of presentation: Admin fluids (Not administered due to no hypotension and risk of pulmonary edema in COVID-19.), Admin ABX, Blood cultures prior to ABX's, Focus exam, Lactate level Progress/Results/Core Measures Suspected Sepsis Recent Fever Within 48 Hours: Yes Infection Criteria Present: Documented Infection New/Unexplained Altered Menta: No Sepsis Screen: Possible Sepsis Risk SIRS Temperature: Pulse: 98 Respiratory Rate: 20 Laboratory Tests 11/14/20 09:15: White Blood Count 7.0 11/15/20 04:40: White Blood Count 8.0 Blood Pressure 154 /78 Mean: 103 11/14/20 09:15: Lactic Acid Level 2.18*H 11/14/20 12:35: Lactic Acid Level 1.09 Laboratory Tests 11/14/20 09:15: Creatinine 0.86, INR Comment 1.3, Platelet Count 210, Total Bilirubin 0.7 11/15/20 04:40: Creatinine 0.83, Platelet Count 223, Total Bilirubin 0.5 Results/Orders Lab Results Laboratory Tests Test 11/14/20 09:15 11/14/20 12:35 11/14/20 14:35 11/14/20 15:46 Range/Units White Blood Count 7.0 4.3-11.0 10^3/uL Red Blood Count 4.91 3.80-5.11 10^6/uL Hemoglobin 13.6 11.5-16.0 g/dL Hematocrit 42 35-52 % Mean Corpuscular Volume 86 80-99 fL Mean Corpuscular Hemoglobin 28 25-34 pg Mean Corpuscular Hemoglobin Concent 32 32-36 g/dL Red Cell Distribution Width 14.5 10.0-14.5 % Platelet Count 210 130-400 10^3/uL Mean Platelet Volume 9.9 9.0-12.2 fL Immature Granulocyte % (Auto) 1 % Neutrophils (%) (Auto) 75 42-75 % Lymphocytes (%) (Auto) 19 12-44 % Monocytes (%) (Auto) 5 0-12 % Eosinophils (%) (Auto) 1 0-10 % Basophils (%) (Auto) 0 0-10 % Neutrophils # (Auto) 5.3 1.8-7.8 10^3/uL Lymphocytes # (Auto) 1.3 1.0-4.0 10^3/uL Monocytes # (Auto) 0.3 0.0-1.0 10^3/uL Eosinophils # (Auto) 0.0 0.0-0.3 10^3/uL Basophils # (Auto) 0.0 0.0-0.1 10^3/uL Immature Granulocyte # (Auto) 0.1 0.0-0.1 10^3/uL Prothrombin Time 16.3 H 12.2-14.7 SEC INR Comment 1.3 0.8-1.4 Activated Partial Thromboplast Time 37 H 24-35 SEC D-Dimer 0.68 H 0.00-0.49 UG/ML Sodium Level 133 L 135-145 MMOL/L Potassium Level 3.8 3.6-5.0 MMOL/L Chloride Level 98 98-107 MMOL/L Carbon Dioxide Level 23 21-32 MMOL/L Anion Gap 12 5-14 MMOL/L Blood Urea Nitrogen 14 7-18 MG/DL Creatinine 0.86 0.60-1.30 MG/DL Estimat Glomerular Filtration Rate > 60 BUN/Creatinine Ratio 16 Glucose Level 232 H 70-105 MG/DL Lactic Acid Level 2.18 *H 1.09 0.50-2.00 MMOL/L Calcium Level 9.1 8.5-10.1 MG/DL Corrected Calcium 9.6 8.5-10.1 MG/DL Total Bilirubin 0.7 0.1-1.0 MG/DL Aspartate Amino Transf (AST/SGOT) 21 5-34 U/L Alanine Aminotransferase (ALT/SGPT) 16 0-55 U/L Alkaline Phosphatase 185 H 40-136 U/L Lactate Dehydrogenase 208 125-220 U/L C-Reactive Protein High Sensitivity 19.31 H 0.00-0.50 MG/DL Total Protein 6.8 6.4-8.2 GM/DL Albumin 3.4 3.2-4.5 GM/DL Procalcitonin 0.20 H <0.10 NG/ML Urine Color YELLOW Urine Clarity CLEAR Urine pH 5.0 5-9 Urine Specific [place] <=1.005 1.016-1.022 Urine Protein NEGATIVE NEGATIVE Urine Glucose (UA) NEGATIVE NEGATIVE Urine Ketones NEGATIVE NEGATIVE Urine Nitrite NEGATIVE NEGATIVE Urine Bilirubin NEGATIVE NEGATIVE Urine Urobilinogen 0.2 < = 1.0 MG/DL Urine Leukocyte Esterase NEGATIVE NEGATIVE Urine RBC (Auto) NEGATIVE NEGATIVE Urine RBC NONE /HPF Urine WBC RARE /HPF Urine Crystals PRESENT H /LPF Urine Uric Acid Crystals MODERATE H /LPF Urine Amorphous Sediment RARE TIFFANY URATES H /LPF Urine Bacteria TRACE /HPF Urine Casts NONE /LPF Urine Mucus NEGATIVE /LPF Urine Culture Indicated CULTURE PENDING Glucometer 372 H 70-110 MG/DL Test 11/14/20 20:01 11/15/20 04:40 Range/Units Glucometer 453 *H 70-110 MG/DL White Blood Count 8.0 4.3-11.0 10^3/uL Red Blood Count 4.33 3.80-5.11 10^6/uL Hemoglobin 12.0 11.5-16.0 g/dL Hematocrit 37 35-52 % Mean Corpuscular Volume 85 80-99 fL Mean Corpuscular Hemoglobin 28 25-34 pg Mean Corpuscular Hemoglobin Concent 33 32-36 g/dL Red Cell Distribution Width 14.0 10.0-14.5 % Platelet Count 223 130-400 10^3/uL Mean Platelet Volume 9.8 9.0-12.2 fL Immature Granulocyte % (Auto) 1 % Neutrophils (%) (Auto) 81 H 42-75 % Lymphocytes (%) (Auto) 13 12-44 % Monocytes (%) (Auto) 5 0-12 % Eosinophils (%) (Auto) 0 0-10 % Basophils (%) (Auto) 0 0-10 % Neutrophils # (Auto) 6.5 1.8-7.8 10^3/uL Lymphocytes # (Auto) 1.0 1.0-4.0 10^3/uL Monocytes # (Auto) 0.4 0.0-1.0 10^3/uL Eosinophils # (Auto) 0.0 0.0-0.3 10^3/uL Basophils # (Auto) 0.0 0.0-0.1 10^3/uL Immature Granulocyte # (Auto) 0.1 0.0-0.1 10^3/uL Sodium Level 136 135-145 MMOL/L Potassium Level 4.3 3.6-5.0 MMOL/L Chloride Level 102 98-107 MMOL/L Carbon Dioxide Level 23 21-32 MMOL/L Anion Gap 11 5-14 MMOL/L Blood Urea Nitrogen 15 7-18 MG/DL Creatinine 0.83 0.60-1.30 MG/DL Estimat Glomerular Filtration Rate > 60 BUN/Creatinine Ratio 18 Glucose Level 265 H 70-105 MG/DL Calcium Level 9.0 8.5-10.1 MG/DL Corrected Calcium 9.7 8.5-10.1 MG/DL Total Bilirubin 0.5 0.1-1.0 MG/DL Aspartate Amino Transf (AST/SGOT) 15 5-34 U/L Alanine Aminotransferase (ALT/SGPT) 17 0-55 U/L Alkaline Phosphatase 168 H 40-136 U/L Total Protein 6.2 L 6.4-8.2 GM/DL Albumin 3.1 L 3.2-4.5 GM/DL Micro Results Microbiology 11/14/20 Influenza Types A,B Antigen (ADAMARIS) - Final, Complete My Orders Orders - GIOVANNI SAUCEDA MD Cbc With Automated Diff (11/14/20 09:16) Comprehensive Metabolic Panel (11/14/20 09:16) Blood Culture (11/14/20 09:16) Sputum Culture (11/14/20 09:16) Urinalysis (11/14/20 09:16) Urine Culture (11/14/20 09:16) Protime With Inr (11/14/20 09:16) Partial Thromboplastin Time (11/14/20 09:16) Chest 1 View, Ap/Pa Only (11/14/20 09:16) Ed Iv/Invasive Line Start (11/14/20 09:16) Ed Iv/Invasive Line Start (11/14/20 09:16) Vital Signs Adult Sepsis Patie Q15M (11/14/20 09:16) O2 (11/14/20 09:16) Remove Rings In Anticipation O (11/14/20 09:16) Lactic Acid Analyzer (11/14/20 09:16) Fibrin Degradation Products (11/14/20 09:16) Procalcitonin (Pct) (11/14/20 09:16) Hs C Reactive Protein (11/14/20 09:16) LDH (11/14/20 09:16) Influenza A And B Antigens (11/14/20 09:16) Acetaminophen Tablet (Tylenol Tablet) (11/14/20 09:30) Dexamethasone Injection (Decadron Inje (11/14/20 09:30) Albuterol Inhaler (Ventolin Hfa) (11/14/20 10:00) Ct Angio Chest W (11/14/20 10:04) Iohexol Injection (Omnipaque 350 Mg/Ml 1 (11/14/20 10:30) Di Iv Start (Assessment) .IV start (11/14/20 10:19) Received Contrast (Hold Metformin- Contr (11/14/20 10:30) Sodium Chloride Flush (Catheter Flush Sy (11/14/20 10:30) Ns (Ivpb) (Sodium Chloride 0.9% Ivpb Bag (11/14/20 10:30) Piperacillin Sodium/Tazobactam (Zosyn Vi (11/14/20 12:00) Medications Given in ED Vital Signs/I&O 11/14/20 11/14/20 11/14/20 11/14/20 20:00 20:00 23:36 23:40 Temp 36.4 36.5 Pulse 78 71 Resp 18 20 B/P (MAP) 123/66 (85) 124/57 (79) Pulse Ox 93 95 93 94 O2 Delivery Nasal Cannula Nasal Cannula O2 Flow Rate 2.00 2.00 11/15/20 11/15/20 11/15/20 11/15/20 01:00 02:09 03:37 06:47 Temp 36.2 Pulse 73 73 Resp 20 B/P (MAP) 135/75 (95) Pulse Ox 94 93 95 O2 Delivery Nasal Cannula Nasal Cannula Nasal Cannula O2 Flow Rate 2.00 1.50 1.00 Capillary Refill : Less Than 3 Seconds Blood Pressure Mean: 103 Progress Note : Progress Note Patient was seen and examined. Imaging studies suggest progressive COVID-19 pneumonia and or secondary pneumonia. Septic work-up was pursued. Discussed the situation with Dr. Mckenzie. Given the underlying COPD and the prolonged nature of her illness, Dr. Mckenzie requests broad-spectrum antibiotic coverage with Zosyn and vancomycin. Therapy was started with Zosyn in the ER. She also received dexamethasone, albuterol, and Tylenol. Diagnostic Imaging Diagonstic Imaging: Xray Plain Films/CT/US/NM/MRI: chest Comments Chest x-ray viewed by me and report reviewed. See report below: NAME: ANA LUJAN MED REC#: [id number] PT STATUS: ADM IN : 1950 PHYSICIAN: GIOVANNI SAUCEDA MD ADMIT DATE: 11/14/20/4TH Signed Date of Exam:11/14/20 CHEST 1 VIEW, AP/PA ONLY INDICATION: Pneumonia. Sepsis. COMPARISON: 11/08/2020. FINDINGS: A single frontal radiographic view of the chest was obtained and demonstrates interval progression of scattered patchy bilateral alveolar opacities, consistent with pneumonia. There is no large effusion or pneumothorax. The cardiac silhouette and pulmonary vasculature are stable. The right internal jugular Port-A-Cath is again seen with the tip in the SVC. The osseous structures show no acute abnormalities. IMPRESSION: Interval progression of scattered patchy infiltrate appearing opacities. Dictated by: Dictated on workstation # [id number] Dict: 11/14/20 1009 Trans: 11/14/20 1642 [id number] Interpreted by: MANINDER FIGUEROA MD Electronically signed by: MANINDER FIGUEROA MD 11/14/20 1642 Diagonstic Imaging: CT Plain Films/CT/US/NM/MRI: chest Comments CT angiogram chest viewed by me and report reviewed. See report below: NAME: ANA LUJAN MED REC#: [id number] PT STATUS: REG ER : 1950 PHYSICIAN: GIOVANNI SAUCEDA MD ADMIT DATE: 11/14/20/ER Signed Date of Exam:11/14/20 CT ANGIO CHEST W PROCEDURE: CT angiography Chest TECHNIQUE: After intravenous administration of contrast, thin section axial CT angiography of the chest was performed. 3D MIP reconstructions were made. All CT scans use one or more of the following dose optimizing techniques: automated exposure control, MA and/or KvP adjustment based on a patient size and exam type, or iterative reconstruction. INDICATION: COVID positive with dyspnea. COMPARISON: CTA chest from 11/08/2020 FINDINGS: Vasculature: No pulmonary emboli. No CT evidence of pulmonary hypertension or right ventricular strain. Thoracic aorta is normal in caliber. No aortic dissection or pseudoaneurysm. Heart and mediastinum: Left hemithyroidectomy. Multiple small mediastinal and hilar lymph nodes are mildly increased in size and are likely reactive in nature. The heart is normal in size without pericardial effusion. Pleura: No pleural effusion or pneumothorax. Lungs and airway: No endoluminal lesion in the trachea or central bronchi. Multifocal consolidations have now developed in the bilateral perihilar regions. Scattered consolidations are also now mixed with groundglass opacities. Upper abdomen: Diffuse hepatic steatosis is again noted. Musculoskeletal: No concerning osseous lesion. IMPRESSION: 1. No pulmonary emboli. 2. Progression of bilateral pulmonary opacities that are in keeping with COVID 19 pneumonia. Dictated by: Dictated on workstation # [id number] Dict: 11/14/20 1109 Trans: 11/14/20 1224 CV [id number] Interpreted by: JOSEY GREEN MD Electronically signed by: JOSEY GREEN MD 11/14/20 1224 Departure Communication (Admissions) Time/Spoke to Admitting Phy: 12:00 Dr. Mckenzie Impression Primary Impression: Pneumonia due to COVID-19 virus Additional Impressions: Hypoxia COPD exacerbation Disposition: ADMITTED INPATIENT Condition: Improved Admissions Decision to Admit Reason: Admit from ER (General) Decision to Admit/Date: Nov 14, 2020 Time/Decision to Admit Time: 11:55 Departure-Patient Inst. Referrals: SABIHA MAXWELL MD (PCP/Family) Primary Care Physician Copy Copies To 1: SABIHA MAXWELL MD, JOSHUA T MD Nov 14, 2020 12:12
[2020-11-14] MEDS ORDERED: ACETAMINOPHEN 325 MG TABLET PO PRN (13:15)
[2020-11-14] MEDS ORDERED: ONDANSETRON 4 MG/5 ML ORAL SOLN (ZOFRAN) 5 ML PO PRN (13:15)
[2020-11-14] MEDS ORDERED: VANCOMYCIN 2000 MG/NS 500 ML IVPB IV NR ×2 (14:00)
[2020-11-14] MEDS: CATHETER FLUSH 10 ML SYR IV SCH ×2 (14:11→20:43)
--- NOTE | 2020-11-14 14:57 | History & Physical-Hospitalist ---
History of Present Illness HPI/Chief Complaint Pt is a 70yo CF known to me from multiple previous admissions who presented to the ER due to SOB and cough. She had been diagnoses with COVID in May. Since that time she has not felt well, had a cough, shortness of breath, and fatigue. She was scheduled for a colonoscopy at and had a preop COVID test that was po sitive. She had no worsening of symptoms at that time. She has not really felt any better or worse since she was originally diagnosed with COVID. She has never had a negative test between this time. She did receive BAM after this recent diagnosis. Date Seen 11/14/20 Time Seen by a Provider: 14:57 Attending Physician Honorio Hampton MD PCP Shadi Campos MD Referring Physician Date of Admission Nov 14, 2020 at 12:14 Home Medications & Allergies Home Medications Reviewed patient Home Medication Reconciliation performed by pharmacy medication reconciliations robotics technician and/or nursing. Patients Allergies have been reviewed. Allergies Allergies Coded Allergies No Known Drug Allergies (Unverified02/11/14) Past Ivobtjc-Cfvgea-Lskhts Hx Past Med/Social Hx: Reviewed Nursing Past Med/Soc Hx Patient Social History Marrital Status: Alcohol Use: Denies Use Recreational Drug Use: No Smoking Status: Never a Smoker 2nd Hand Smoke Exposure: No Recent Foreign Travel: No Contact w/other who traveled: No Recent Hopitalizations: No Recent Infectious Disease Expo: No Immunizations Up To Date Tetanus Booster (TDap): More than 5yrs Date of Pneumonia Vaccine: Apr 15, 2015 Date of Influenza Vaccine: Jun 25, 2020 Seasonal Allergies Seasonal Allergies: No Past Medical History Surgeries: Abdominal, Appendectomy, Hysterectomy, Joint Replacement, Neurological, Orthopedic, Thyroidectomy, Tonsillectomy Currently Using CPAP: Yes Cardiac: High Cholesterol Reproductive: No Sexually Transmitted Disease: No HIV/AIDS: No Female Reproductive Disorders: Denies Hysterectomy Genitourinary: Bladder Infection Gastrointestinal: Chronic Constipation, Chronic Diarrhea Musculoskeletal: Arthritis, Chronic Back Pain Endocrine: Diabetes, Non-Insulin dep HEENT: Cataract Loss of Vision: Denies Hearing Impairment: Denies Psychosocial: Anxiety, Depression History of Blood Disorders: No Adverse Reaction to Blood Krause: No Family History Reviewed Nursing Family Hx Cancer 03 FATHER (PANCREATIC, PASSED AT 65 FROM THIS) Cataract 03 MOTHER Dementia 03 MOTHER Family history: Arthritis 03 MOTHER Family history: Cardiovascular disease 03 MOTHER (HIGH CHOLESTEROL, BALOON ARTERIES 2 TIMES) Hearing loss 03 MOTHER Hypercholesterolemia 03 MOTHER Cancer Review of Systems Constitutional: No chills; fever, malaise, weakness EENTM: throat pain; No throat swelling Respiratory: cough, dyspnea on exertion; No phlegm; short of breath Cardiovascular: No chest pain, No edema, No palpitations Gastrointestinal: loss of appetite Genitourinary: no symptoms reported Musculoskeletal: no symptoms reported Skin: no symptoms reported Psychiatric/Neurological: No Symptoms Reported Physical Exam Physical Exam Vital Signs Vital Signs - First Documented Capillary Refill : Less Than 3 Seconds Height, Weight, BMI Height: 5'4.00" Weight: 232lbs. 0.0oz. 105.107445xi; 39.00 BMI Method:Stated General Appearance: No Apparent Distress, Obese HEENT: PERRL/EOMI, Moist Mucous Membranes Neck: Normal Inspection, Supple Respiratory: Lungs Clear, No Accessory Muscle Use; No Rhonci, No Wheezing; Other (on 2lpm NC) Cardiovascular: Regular Rate, Rhythm, No Murmur Gastrointestinal: Normal Bowel Sounds, Non Tender, Soft Extremity: No Calf Tenderness, No Pedal Edema Neurologic/Psychiatric: Alert, Oriented x3, Normal Mood/Affect Skin: Normal Color, Warm/Dry Results Results/Procedures Labs Laboratory Tests 11/14/20 09:15 Patient resulted labs reviewed. Imaging: Reviewed Imaging Report Imaging [facility] [place], [place] NAME: ANA LUJAN [facility] REC#: [id number] PT STATUS: REG ER : 1950 PHYSICIAN: GIOVANNI SAUCEDA MD ADMIT DATE: 11/14/20/ER Draft Date of Exam:11/14/20 CHEST 1 VIEW, AP/PA ONLY INDICATION: Pneumonia. Sepsis. COMPARISON: 11/08/2020. FINDINGS: A single frontal radiographic view of the chest was obtained and demonstrates interval progression of scattered patchy bilateral alveolar opacities, consistent with pneumonia. There is no large effusion or pneumothorax. The cardiac silhouette and pulmonary vasculature are stable. The right internal jugular Port-A-Cath is again seen with the tip in the SVC. The osseous structures show no acute abnormalities. IMPRESSION: Interval progression of scattered patchy infiltrate appearing opacities. Dictated on workstation # [id number] Dict: 11/14/20 1009 Trans: 11/14/20 1012 [id number] Interpreted by: MANINDER FIGUEROA MD Electronically signed by: [facility] [place] [place] NAME: ANA LUJAN [facility] REC#: [id number] PT STATUS: REG ER : 1950 PHYSICIAN: GIOVANNI SAUCEDA MD ADMIT DATE: 11/14/20/ER Signed Date of Exam:11/14/20 CT ANGIO CHEST W PROCEDURE: CT angiography Chest TECHNIQUE: After intravenous administration of contrast, thin section axial CT angiography of the chest was performed. 3D MIP reconstructions were made. All CT scans use one or more of the following dose optimizing techniques: automated exposure control, MA and/or KvP adjustment based on a patient size and exam type, or iterative reconstruction. INDICATION: COVID positive with dyspnea. COMPARISON: CTA chest from 11/08/2020 FINDINGS: Vasculature: No pulmonary emboli. No CT evidence of pulmonary hypertension or right ventricular strain. Thoracic aorta is normal in caliber. No aortic dissection or pseudoaneurysm. Heart and mediastinum: Left hemithyroidectomy. Multiple small mediastinal and hilar lymph nodes are mildly increased in size and are likely reactive in nature. The heart is normal in size without pericardial effusion. Pleura: No pleural effusion or pneumothorax. Lungs and airway: No endoluminal lesion in the trachea or central bronchi. Multifocal consolidations have now developed in the bilateral perihilar regions. Scattered consolidations are also now mixed with groundglass opacities. Upper abdomen: Diffuse hepatic steatosis is again noted. Musculoskeletal: No concerning osseous lesion. IMPRESSION: 1. No pulmonary emboli. 2. Progression of bilateral pulmonary opacities that are in keeping with COVID 19 pneumonia. Dictated by: Dictated on workstation # [id number] Dict: 11/14/20 1109 Trans: 11/14/20 1224 [id number] [id number] Interpreted by: JOSEY GREEN MD Electronically signed by: JOSEY GREEN MD 11/14/20 1224 Assessment/Plan Admission Diagnosis Acute hypoxic respiratory failure Admission Status: Inpatient Order (span 2 midnights) Reason for Inpatient Admission: see below Assessment and Plan Acute hypoxic respiratory failure COVID19 (first test positive in 05/2020 and second 10/2020) Pneumonia Complex case, I'm unsure if she is a reinfection or has just persistently tested positive and is actually a longer hauler Pulm consulted, appreciate recs Cover with IV abx for now Await cultures Continue decadron Already received BAM, outside the window for Remdesivir Discussed with her that we will monitor her while inpatient for decompensate but that symptoms may not resolve by discharge Type 2 diabetes mellitus, non insulin dependent BS 232 on arrival, add SSI Likely will be worse with steroids Continue home meds when med rec done HTN Continue home meds Chronic pain restless leg syndrome Continue home meds DVT ppx: On Eliquis Diagnosis/Problems Diagnosis/Problems (1) Pneumonia due to COVID-19 virus Status: Acute (2) Hypoxia Status: Acute (3) Uncontrolled diabetes mellitus Status: Acute (4) Type 2 diabetes mellitus Status: Chronic HONORIO HAMPTON MD Nov 14, 2020 14:57
[2020-11-14 15:35] LABS: BILIRUBIN,URINE NEGATIVE (NEGATIVE); CLARITY,URINE CLEAR; COLOR,URINE YELLOW; GLUCOSE, URINE (UA) NEGATIVE (NEGATIVE); KETONES,URINE NEGATIVE (NEGATIVE); LEUKOCYTE ESTERASE ,URINE NEGATIVE (NEGATIVE); NITRITE,URINE NEGATIVE (NEGATIVE); PROTEIN,URINE NEGATIVE (NEGATIVE)
[2020-11-14] MEDS ORDERED: inSUlin ASPART (NovoLOG) 1 UNIT/0.01 ML (CHARGE PER UNIT) SC SCH (16:00)
[2020-11-14 16:12] LABS: AMORPHOUS SEDIMENT,UR RARE AMOR URATES /LPF; BACTERIA,URINE TRACE /HPF; WBC,URINE RARE /HPF
[2020-11-14 16:13] LABS: URIC ACID CRYSTALS,URINE MODERATE /LPF
[2020-11-14] MEDS ORDERED: POLY17PO6 PO (16:44)
[2020-11-14] MEDS ORDERED: CHOL-34 PO (16:44)
[2020-11-14] MEDS ORDERED: DOCU100C37 PO (16:44)
[2020-11-14] MEDS ORDERED: CYAN-41 PO (16:44)
[2020-11-14] MEDS ORDERED: VITA100049 PO (16:44)
[2020-11-14] MEDS ORDERED: TR1C15 TOP (16:44)
[2020-11-14] MEDS ORDERED: FLUC150T2 PO (16:44)
[2020-11-14] MEDS ORDERED: NITR100C PO (16:44)
[2020-11-14] MEDS ORDERED: SITA100T12 PO (16:51)
[2020-11-14] MEDS ORDERED: CNC1KV IM (16:51)
[2020-11-14] MEDS ORDERED: HYDR2TAB6 PO (16:51)
[2020-11-14] MEDS: inSUlin ASPART (NovoLOG) 1 UNIT/0.01 ML (CHARGE PER UNIT) SC SCH ×2 (17:32→20:37)
[2020-11-14] MEDS: PIPERACILLIN/TAZO 4.5 GM/NS 100 ML IV SCH ×2 (17:33)
[2020-11-14] MEDS: PRAMIPEXOLE 0.5 MG TAB (MIRAPEX) PO SCH (18:37)
[2020-11-14] MEDS ORDERED: DICYCLOMINE 10 MG (BENTYL) CAP PO PRN (18:45)
[2020-11-14] MEDS ORDERED: RT-ALBUTEROL SULF 2.5 MG/3 ML PRE-MIX VIAL INH PRN (18:45)
[2020-11-14] MEDS ORDERED: DOCUSATE SODIUM 100 MG (COLACE) CAP PO PRN (18:45)
[2020-11-14] MEDS ORDERED: TRIAMCINOLONE 0.1% CR (KENALOG) 15 GM TUBE TOP PRN (18:45)
[2020-11-14] MEDS ORDERED: ESTRADIOL VAGINAL CREAM 42.5 GM (ESTRACE) VG SCH (18:45)
[2020-11-14] MEDS ORDERED: inSUlin ASPART (NovoLOG) 1 UNIT/0.01 ML (CHARGE PER UNIT) SC ONE (20:30)
[2020-11-14] MEDS: AMITRIPTYLINE 150 MG (ELAVIL) TABLET PO SCH (20:39)
[2020-11-14] MEDS: APIXABAN 5 MG (ELIQUIS) TABLET PO SCH (20:39)
[2020-11-14] MEDS: HYDROmorphone (DILAUDID) 2 MG TAB PO PRN (20:39)
[2020-11-14] MEDS ORDERED: APIXABAN 5 MG (ELIQUIS) TABLET PO SCH (21:00)
[2020-11-15] MEDS: PIPERACILLIN/TAZO 4.5 GM/NS 100 ML IV SCH ×6 (02:27→18:22)
[2020-11-15] MEDS: VANCOMYCIN 1500 MG/NS 500 ML IVPB IV SCH ×4 (02:27→14:59)
[2020-11-15 03:37] VITALS: BP 135/75
[2020-11-15] MEDS: HYDROmorphone (DILAUDID) 2 MG TAB PO PRN ×4 (03:37→20:40)
[2020-11-15 05:01] LABS: BASOPHILS % (AUTO) 0 % (0-10); EOSINOPHILS % (AUTO) 0 % (0-10); HEMATOCRIT 37 % (35-52); LYMPHOCYTES % (AUTO) 13 % (12-44); MEAN CORPUSCULAR HEMOGLOBIN 28 pg (25-34); MEAN CORPUSCULAR HGB CONC 33 g/dL (32-36); MEAN CORPUSCULAR VOLUME 85 fL (80-99); MEAN PLATELET VOLUME 9.8 fL (9.0-12.2); MONOCYTES # (AUTO) 0.4 10^3/uL (0.0-1.0); MONOCYTES % (AUTO) 5 % (0-12); NEUTROPHILS # (AUTO) 6.5 10^3/uL (1.8-7.8); NEUTROPHILS % (AUTO) 81 % (42-75); PLATELET COUNT 223 10^3/uL (130-400)
[2020-11-15 05:09] LABS: ALBUMIN 3.1 GM/DL (3.2-4.5)
[2020-11-15 05:10] LABS: CHLORIDE 102 MMOL/L (98-107); POTASSIUM 4.3 MMOL/L (3.6-5.0); SODIUM 136 MMOL/L (135-145)
[2020-11-15 05:12] LABS: GLUCOSE 265 MG/DL (70-105); TOTAL PROTEIN 6.2 GM/DL (6.4-8.2)
[2020-11-15 05:13] LABS: CARBON DIOXIDE 23 MMOL/L (21-32)
[2020-11-15 05:14] LABS: BILIRUBIN,TOTAL 0.5 MG/DL (0.1-1.0)
[2020-11-15 05:15] LABS: ALKALINE PHOSPHATASE 168 U/L (40-136)
[2020-11-15 05:16] LABS: CREATININE SERUM 0.83 MG/DL (0.60-1.30); GFR ESTIMATED > 60
[2020-11-15 05:17] LABS: BUN/CREATININE RATIO 18
[2020-11-15 05:19] LABS: ALANINE AMINOTRANSFERASE 17 U/L (0-55)
[2020-11-15] MEDS: inSUlin ASPART (NovoLOG) 1 UNIT/0.01 ML (CHARGE PER UNIT) SC SCH ×4 (06:09→20:40)
[2020-11-15] MEDS: CATHETER FLUSH 10 ML SYR IV SCH ×3 (06:09→20:41)
[2020-11-15] MEDS ORDERED: RT-ALBUTEROL INHALER HFA (VENTOLIN HFA) 18 GM IH PRN (06:30)
--- NOTE | 2020-11-15 06:49 | Pulmonary Consultation ---
History of Present Illness History of Present Illness Date Seen by Provider: Nov 15, 2020 Time Seen by Provider: 06:44 Date of Admission Allergies and Home Medications Allergies Coded Allergies: No Known Drug Allergies (Unverified , 02/11/14) Home Medications Albuterol Sulfate 1 Puff Puff, 2 PUFF INH Q6H PRN for SHORTNESS OF BREATH, (Reported) Amitriptyline HCl 75 Mg Tablet, 75 MG PO HS, (Reported) Apixaban 5 Mg Tablet, 5 MG PO BID, (Reported) Celecoxib 200 Mg Capsule, 200 MG PO DAILY, (Reported) Cholecalciferol (Vitamin D3) 25 Mcg Tablet, 25 MCG PO DAILY, (Reported) Cyanocobalamin 1,000 Mcg/Ml Inj, 1,000 MCG IM MONTLY, (Reported) Cyanocobalamin (Vitamin B-12) 1,000 Mcg Tablet, 1,000 MCG PO DAILY, (Reported) Dicyclomine HCl 10 Mg Capsule, 10 MG PO TID PRN for SPASMS, (Reported) Docusate Sodium 100 Mg Capsule, 100 MG PO BID PRN for CONSTIPATION-1ST LINE, (Reported) Estradiol 42.5 Gm Cream.appl, 1 APPLIC VG UD, (Reported) Ferrous Sulfate 325 Mg Tablet, 325 MG PO DAILY, (Reported) Fluconazole 150 Mg Tablet, 150 MG PO MON, (Reported) Glipizide 10 Mg Tablet, 10 MG PO DAILY, (Reported) Hydrochlorothiazide 25 Mg Tablet, 25 MG PO DAILY, (Reported) Hydromorphone HCl 2 Mg Tablet, 2 MG PO Q4H PRN for PAIN-SEVERE (8-10), (Reported) Lactobacillus Combo No.10 1 Each Capsule, 1 CAP PO DAILY, (Reported) Nitrofurantoin Macrocrystal 100 Mg Capsule, 100 MG PO DAILY, (Reported) Pantoprazole Sodium 40 Mg Tablet.dr, 40 MG PO DAILY, (Reported) Polyethylene Glycol 3350 17 Gm Powd.pack, 17 GM PO DAILY PRN for CONSTIPATION- 2ND LINE, (Reported) Pramipexole Di-HCl 1 Mg Tablet, 1 MG PO BID, (Reported) Simvastatin 40 Mg Tablet, 40 MG PO DAILY, (Reported) Sitagliptin Phosphate 100 Mg Tablet, 100 MG PO DAILY, (Reported) Triamcinolone Acet 15 Gm Cr, 1 APPLIC TOP TID PRN for RASH, (Reported) Vitamin E 1,000 Unit Capsule, 1,000 UNIT PO DAILY, (Reported) Zolpidem Tartrate 12.5 Mg Tab.mphase, 12.5 MG PO HS, (Reported) Past Sycceki-Nocfdf-Pzheif Hx Past Med/Social Hx: Reviewed Nursing Past Med/Soc Hx Patient Social History Alcohol Use: Denies Use Smoking Status: Never a Smoker 2nd Hand Smoke Exposure: No Recent Infectious Disease Expo: No Recent Hopitalizations: No Alcohol Use?: Yes Immunizations Up To Date Tetanus Booster (TDap): More than 5yrs Date of Pneumonia Vaccine: Apr 15, 2015 Date of Influenza Vaccine: Jun 25, 2020 Seasonal Allergies Seasonal Allergies: No Past Medical History Surgeries: Yes (R knee replaced x2, port, c/s x3, hernia x5, rotator cuff, left wrist) Abdominal, Appendectomy, Hysterectomy, Joint Replacement, Neurological, Orthopedic, Thyroidectomy, Tonsillectomy Respiratory: Yes Asthma, Pneumonia, Chronic Bronchitis, Pulmonary Embolism, Sleep Apnea Currently Using CPAP: Yes Cardiac: Yes High Cholesterol Neurological: Yes (CHIARI MALFORMATION--SURGICAL REPAIR; RESTLESS LEG SYNDROME) Reproductive Disorders: No Female Reproductive Disorders: Denies 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 CHRONIC ABDOMINAL PAIN) Chronic Constipation, Chronic Diarrhea Musculoskeletal: Yes Arthritis, Chronic Back Pain Endocrine: Yes (BENIGN MASS LEFT THYROID REMOVED 01/01/2013) Diabetes, Non-Insulin dep HEENT: Yes Cataract Loss of Vision: Denies Hearing Impairment: Denies Cancer: No Psychosocial: Yes Anxiety, Depression Integumentary: No Blood Disorders: No Adverse Reaction/Blood Tranf: No Family Medical History Reviewed Nursing Family Hx Cancer 03 FATHER (PANCREATIC, PASSED AT 65 FROM THIS) Cataract 03 MOTHER Dementia 03 MOTHER Family history: Arthritis 03 MOTHER Family history: Cardiovascular disease 03 MOTHER (HIGH CHOLESTEROL, BALOON ARTERIES 2 TIMES) Hearing loss 03 MOTHER Hypercholesterolemia 03 MOTHER Cancer Review of Systems Time Seen by Provider: 06:44 Sepsis Event Evaluation Height, Weight, BMI Height: 5'4.00" Weight: 232lbs. 0.0oz. 105.016715gh; 39.00 BMI Method:Stated Exam Exam Vital Signs Date Time Temp Pulse Resp B/P (MAP) Pulse Ox O2 Delivery O2 Flow Rate FiO2 11/15/20 03:37 36.2 73 20 135/75 (95) 93 Nasal Cannula 1.50 11/15/20 02:09 94 Nasal Cannula 2.00 11/15/20 01:00 73 11/14/20 23:40 94 Nasal Cannula 2.00 11/14/20 23:36 36.5 71 20 124/57 (79) 93 11/14/20 20:00 95 Nasal Cannula 2.00 11/14/20 20:00 36.4 78 18 123/66 (85) 93 11/14/20 19:00 98 11/14/20 18:50 95 Nasal Cannula 2.00 11/14/20 16:30 36.1 77 18 139/71 (93) 93 11/14/20 16:30 36.1 77 18 139/71 (93) 93 11/14/20 15:30 36.1 77 20 161/80 (107) 94 11/14/20 15:30 36.0 92 20 161/80 (107) 94 Nasal Cannula 2.00 11/14/20 14:45 86 151/83 (105) 94 Nasal Cannula 2.00 11/14/20 14:15 66 118/74 (89) 11/14/20 14:10 98 11/14/20 14:00 94 Nasal Cannula 2.00 11/14/20 13:45 85 115/59 (77) 11/14/20 13:30 65 115/59 (77) 11/14/20 13:15 74 118/57 (77) 11/14/20 13:00 80 134/75 (94) 11/14/20 12:50 82 18 142/68 94 Nasal Cannula 2.00 11/14/20 09:00 Nasal Cannula 2.00 11/14/20 09:00 87 Nasal Cannula 2.00 11/14/20 09:00 38.5 98 20 154/78 (103) 93 Nasal Cannula 2.00 I & O 11/15/20 07:00 Intake Total 2670 ml Output Total 2450 ml Balance 220 ml Height & Weight Height: 5'4.00" Weight: 232lbs. 0.0oz. 105.579746hz; 39.00 BMI Method:Stated General Appearance: No Apparent Distress, Obese HEENT: PERRL/EOMI, Moist Mucous Membranes Neck: Normal Inspection, Supple Respiratory: Lungs Clear, No Accessory Muscle Use; No Rhonci, No Wheezing; Other (on 2lpm NC) Cardiovascular: Regular Rate, Rhythm, No Murmur Capillary Refill: Less Than 3 Seconds Extremity: No Calf Tenderness, No Pedal Edema Neurologic/Psychiatric: Alert, Oriented x3, Normal Mood/Affect Skin: Normal Color, Warm/Dry Results Lab Laboratory Tests 11/14/20 09:15 11/15/20 04:40 Assessment/Plan Assessment/Plan Acute hypoxic respiratory failure -Influenza is negative s/p COVID with persistent bilateral pulmonary infiltrates -Continue Decadron -S/p BAM PNA -Continue Abx -Issa cultures pending Type 2 diabetes mellitus, non insulin dependent HTN Continue home meds restless leg syndrome Continue home meds DVT ppx: On NEETA Morse DO Nov 15, 2020 06:49
[2020-11-15 08:00] VITALS: BP 146/71
[2020-11-15] MEDS ORDERED: VITAMIN E 1000 UNIT PO SCH (09:00)
[2020-11-15] MEDS: SIMvastatin 40 MG (ZOCOR) TAB PO SCH (09:25)
[2020-11-15] MEDS: PANTOPRAZOLE 40 MG (PROTONIX) TAB PO SCH (09:25)
[2020-11-15] MEDS: CYANOCOBALAMIN 1,000 MCG (VITAMIN B-12) TABLET PO SCH (09:25)
[2020-11-15] MEDS: HYDROCHLOROTHIAZIDE 25 MG (HCTZ) TAB PO SCH (09:26)
[2020-11-15] MEDS: LINAGLIPTIN (TRADJENTA) 5 MG TABLET PO SCH (09:27)
[2020-11-15] MEDS: CELECOXIB 100 MG (CeleBREX) CAP PO SCH (09:28)
[2020-11-15] MEDS: LACTOBACILLUS ACIDOPHILUS (PROBIOTIC) CAPSULE PO SCH (09:28)
[2020-11-15] MEDS: NITROFURANTOIN 50 MG (MACRODANTIN) CAP PO SCH (09:29)
[2020-11-15] MEDS: glipiZIDE 5 MG (GLUCOTROL) TAB PO SCH (09:29)
[2020-11-15] MEDS: VITAMIN D3 25 MCG (1,000 UNITS) TABLET PO SCH (09:29)
[2020-11-15] MEDS: FERROUS SULF 325 MG (IRON) TAB PO SCH (09:29)
[2020-11-15] MEDS: APIXABAN 5 MG (ELIQUIS) TABLET PO SCH ×2 (09:30→20:40)
[2020-11-15] MEDS: polyethylene glycoL POWDER 17 GM (MIRALAX) PACK PO PRN (09:30)
--- NOTE | 2020-11-15 11:41 | Progress Note - Hospitalist ---
Subjective HPI/CC On Admission Date Seen by Provider: Nov 15, 2020 Time Seen by Provider: 11:35 Pt is a 70yo CF known to me from multiple previous admissions who presented to the ER due to SOB and cough. She had been diagnoses with COVID in May. Since that time she has not felt well, had a cough, shortness of breath, and fatigue. She was scheduled for a colonoscopy at and had a preop COVID test that was positive. She had no worsening of symptoms at that time. She has not really felt any better or worse since she was originally diagnosed with COVID. She has never had a negative test between this time. She did receive BAM after this recent diagnosis. Subjective/Events-last exam Pt reports doing ok today. Oxygen demand decreasing. She states she spoke with her and she did have a negative COVID test between her two positives when she had a sleep study done. Focused Exam Lactate Level 11/14/20 09:15: Lactic Acid Level 2.18*H 11/14/20 12:35: Lactic Acid Level 1.09 Time of Focused Exam: 12:00 Objective Exam Vital Signs Vital Signs Date Time Temp Pulse Resp B/P (MAP) Pulse Ox O2 Delivery O2 Flow Rate FiO2 11/15/20 10:38 94 Nasal Cannula 1.00 11/15/20 08:00 36.0 72 22 146/71 (96) Capillary Refill : Less Than 3 Seconds General Appearance: No Apparent Distress, Chronically ill, Obese Respiratory: Lungs Clear, No Accessory Muscle Use, Other (on 1lpm NC) Cardiovascular: Regular Rate, Rhythm, No Murmur Gastrointestinal: Normal Bowel Sounds, Non Tender, Soft Neurologic/Psychiatric: Alert, Oriented x3 Results/Procedures Lab Laboratory Tests 11/15/20 04:40 Patient resulted labs reviewed. Imaging: Reviewed Imaging Report Assessment/Plan Assessment and Plan Assess & Plan/Chief Complaint Acute hypoxic respiratory failure COVID19 (first test positive in 05/2020 and second 10/2020) Pneumonia Pulm consulted, appreciate recs Cover with IV abx Await cultures, urine culture with NGTD Continue decadron Already received BAM, outside the window for Remdesivir Discussed with her that we will monitor her while inpatient for decompensation but that symptoms may not resolve by discharge Type 2 diabetes mellitus, non insulin dependent BS very elevated last night as anticipated Continue home meds Continue SSI HTN Continue home meds Chronic pain restless leg syndrome Continue home meds DVT ppx: On Eliquis Diagnosis/Problems Diagnosis/Problems (1) Pneumonia due to COVID-19 virus Status: Acute (2) Hypoxia Status: Acute (3) Uncontrolled diabetes mellitus Status: Acute (4) Type 2 diabetes mellitus Status: Chronic HONORIO HAMPTON MD Nov 15, 2020 11:41
[2020-11-15 12:00] VITALS: BP 159/72
[2020-11-15 14:00] VITALS: BP 129/58
[2020-11-15] MEDS: PRAMIPEXOLE 0.5 MG TAB (MIRAPEX) PO SCH ×2 (14:58→20:40)
[2020-11-15 16:34] VITALS: BP 124/58
[2020-11-15 19:22] VITALS: BP 147/64
[2020-11-15] MEDS: AMITRIPTYLINE 150 MG (ELAVIL) TABLET PO SCH (20:40)
[2020-11-15] MEDS: ZOLPIDEM 5 MG (AMBIEN) TAB PO SCH (20:41)
[2020-11-16] VITALS (9 sets, daily range): BP systolic 131–190; BP diastolic 67–76
[2020-11-16] MEDS: VANCOMYCIN 1500 MG/NS 500 ML IVPB IV SCH ×2 (03:17)
[2020-11-16] MEDS: PIPERACILLIN/TAZO 4.5 GM/NS 100 ML IV SCH ×6 (03:17→18:48)
[2020-11-16] MEDS: HYDROmorphone (DILAUDID) 2 MG TAB PO PRN ×4 (03:24→20:34)
[2020-11-16] MEDS: guaiFENesin SYRUP 100 MG/5 ML 10 ML (ROBITUSSIN SF) PO PRN (03:24)
[2020-11-16] MEDS: inSUlin ASPART (NovoLOG) 1 UNIT/0.01 ML (CHARGE PER UNIT) SC SCH ×4 (05:56→20:34)
[2020-11-16] MEDS: CATHETER FLUSH 10 ML SYR IV SCH ×3 (05:56→20:36)
[2020-11-16] MEDS: PANTOPRAZOLE 40 MG (PROTONIX) TAB PO SCH (09:26)
[2020-11-16] MEDS: VITAMIN D3 25 MCG (1,000 UNITS) TABLET PO SCH (09:26)
[2020-11-16] MEDS: NITROFURANTOIN 50 MG (MACRODANTIN) CAP PO SCH (09:26)
[2020-11-16] MEDS: glipiZIDE 5 MG (GLUCOTROL) TAB PO SCH (09:26)
[2020-11-16] MEDS: LACTOBACILLUS ACIDOPHILUS (PROBIOTIC) CAPSULE PO SCH ×3 (09:29→18:48)
[2020-11-16] MEDS: APIXABAN 5 MG (ELIQUIS) TABLET PO SCH ×2 (09:29→20:33)
[2020-11-16] MEDS: HYDROCHLOROTHIAZIDE 25 MG (HCTZ) TAB PO SCH (09:29)
[2020-11-16] MEDS: LINAGLIPTIN (TRADJENTA) 5 MG TABLET PO SCH (09:29)
[2020-11-16] MEDS: CELECOXIB 100 MG (CeleBREX) CAP PO SCH (09:29)
[2020-11-16] MEDS: CYANOCOBALAMIN 1,000 MCG (VITAMIN B-12) TABLET PO SCH (09:29)
[2020-11-16] MEDS: SIMvastatin 40 MG (ZOCOR) TAB PO SCH (09:29)
[2020-11-16] MEDS: FERROUS SULF 325 MG (IRON) TAB PO SCH (09:29)
[2020-11-16] MEDS: PRAMIPEXOLE 0.5 MG TAB (MIRAPEX) PO SCH ×2 (09:30→20:33)
--- NOTE | 2020-11-16 11:39 | Progress Note - Hospitalist ---
Subjective HPI/CC On Admission Date Seen by Provider: Nov 16, 2020 Time Seen by Provider: 11:35 Pt is a 70yo CF known to me from multiple previous admissions who presented to the ER due to SOB and cough. She had been diagnoses with COVID in May. Since that time she has not felt well, had a cough, shortness of breath, and fatigue. She was scheduled for a colonoscopy at and had a preop COVID test that was positive. She had no worsening of symptoms at that time. She has not really felt any better or worse since she was originally diagnosed with COVID. She has never had a negative test between this time. She did receive BAM after this recent diagnosis. Subjective/Events-last exam pt reports feeling better today. Still coughing but a little better. Focused Exam Lactate Level 11/14/20 09:15: Lactic Acid Level 2.18*H 11/14/20 12:35: Lactic Acid Level 1.09 Time of Focused Exam: 12:00 Objective Exam Vital Signs Vital Signs Date Time Temp Pulse Resp B/P (MAP) Pulse Ox O2 Delivery O2 Flow Rate FiO2 11/16/20 09:45 Nasal Cannula 1.00 11/16/20 09:44 170/74 (106) 100 11/16/20 08:00 36.0 90 20 Capillary Refill : Less Than 3 Seconds General Appearance: No Apparent Distress, Chronically ill, Obese Respiratory: Lungs Clear, No Accessory Muscle Use; No Rhonci, No Wheezing; Other (on 1lpm) Cardiovascular: Regular Rate, Rhythm, No Murmur Gastrointestinal: Normal Bowel Sounds, Non Tender, Soft Neurologic/Psychiatric: Alert, Oriented x3 Results/Procedures Lab Patient resulted labs reviewed. Imaging: Reviewed Imaging Report Assessment/Plan Assessment and Plan Assess & Plan/Chief Complaint Acute hypoxic respiratory failure COVID19 (first test positive in 05/2020 and second 10/2020) Pneumonia Pulm consulted, appreciate recs Continue with IV abx, DC vanc Cultures with NGTD Continue decadron Already received BAM, outside the window for Remdesivir Encouraged honey for antitussive but she does not like it Type 2 diabetes mellitus, non insulin dependent BS very elevated last night as anticipated Continue home meds Continue SSI HTN Continue home meds Chronic pain restless leg syndrome Continue home meds DVT ppx: On Eliquis Diagnosis/Problems Diagnosis/Problems (1) Pneumonia due to COVID-19 virus Status: Acute (2) Hypoxia Status: Acute (3) Uncontrolled diabetes mellitus Status: Acute (4) Type 2 diabetes mellitus Status: Chronic HONORIO HAMPTON MD Nov 16, 2020 11:39
--- NOTE | 2020-11-16 13:39 | Physical Therapy Evaluation ---
PT Evaluation-General Medical Diagnosis Admission Date Nov 14, 2020 at 12:14 Medical Diagnosis: Covid/sepsis/hypoxia Onset Date: Nov 14, 2020 Therapy Diagnosis Therapy Diagnosis: debility Height/Weight Height (Feet): 5 Height (Inches): 4.00 Weight (Pounds): 232 Weight (Ounces): 0.0 Precautions Precautions/Isolations: Contact Isolation, Droplet Isolation, Fall Prevention Referral Physician: Moriah Reason for Referral: Evaluation/Treatment Medical History Pertinent Medical History: COPD, DM, HTN Additional Medical History Covid (+) May 2020 Current History ER secondary to cough, fever, Covid (+) Reviewed History: Yes Social History Current Living Status: Spouse Prior Prior Level of Function SCALE: Activities may be completed with or without assistive devices. 9-Llpblihqwx-knsudvv completes the activity by him/herself with no assistance from a helper. 5-Set-up or Clean-up Assistance-helper sets up or cleans up; patient completes activity. Howell assists only prior to or following the activity. 4-Supervision or Touching Assistance-helper provides verbal cues and/or touching/steadying and/or contact guard assistance as patient completes activity. Assistance may be provided throughout the activity or intermittently. 3-Partial/Moderate Assistance-helper does LESS THAN HALF the effort. Howell lifts, holds or supports trunk or limbs, but provides less than half the effort. 2-Substantial/Maximal Assistance-helper does MORE THAN HALF the effort. Howell lifts or holds trunk or limbs and provides more than half the effort. 1-Qvmhvvdbx-nqlgmh does ALL the effort. Patient does none of the effort to complete the activity. Or, the assistance of 2 or more helpers is required for the patient to complete the activity. If activity was not attempted, code reason: 7-Patient Refused. 9-Not Applicable-not attempted and the patient did not perform the activity before the current illness, exacerbation or injury. 10-Not Attempted due to Environmental Limitations-(lack of equipment, weather restraints, etc.). 88-Not Attempted due to Medical Conditions or Safety Concerns. Bed Mobility: 6 Transfers (B,C,W/C): 6 Gait: 6 Stairs: 6 Indoor Mobility (Ambulation): Independent Stairs: Independent PT Evaluation-Current Subjective Patient agrees to PT. Objective Patient Orientation: Normal For Age Attachments: Oxygen, IV ROM/Strength ROM Lower Extremities bilateral LE WFL Strength Lower Extremities 4-/5 grossly bilateral LE Integumentary/Posture Bowel Incontinence: No Bladder Incontinence: No Posture WFL Neuromuscular (Tone, Coordination, Reflexes) grossly intact Sensory Vision: Functional Hearing: Functional Transfers Roll Left to Right (QC): 6 Sit to Lying (QC): 6 Lying to Sitting/Side of Bed(Q: 6 Sit to Stand (QC): 6 Chair/Knx-bq-Gnxxk Xfer(QC): 6 Gait Does the Patient Walk?: Yes Mode of Locomotion: Walk Anticipated Mode of Locomotion: Walk Walk 10 feet (QC): 6 Walk 50 ft with 2 Turns(QC): 6 Walk 150 ft (QC): 6 Distance: 150' in room Gait Assistive Device: FWW Comments/Gait Description no deviation Balance Sitting Static: Normal Sitting Dynamic: Normal Standing Static: Normal Standing Dynamic: Normal Picking up an Object (QC): 6 (seated position) Assessment/Needs 70 y.o. female,will be seen short term by skilled PT to address pulmonary function with functional mobility. Patient's SAO2 92% on 1L O2 with activity. Rehab Potential: Fair PT Technical Healthcare Consultant Goals Residential Goals PT Technical Healthcare Consultant Goals Time Frame: Nov 18, 2020 Roll Left & Right (QC): 6 Sit to Lying (QC): 6 Lying-Sitting on Side/Bed(QC): 6 Sit to Stand (QC): 6 Chair/Vuv-kj-Bsvzc Xfer(QC): 6 Toilet Transfer (QC): 6 Does the Patient Walk: Yes Walk 10 feet (QC): 6 Walk 50ft with 2 Turns (QC): 6 Walk 150 ft (QC): 6 PT Plan Problem List Problem List: Activity Tolerance Treatment/Plan Treatment Plan: Continue Plan of Care Treatment Plan: Education, Functional Activity Rea, Gait, Safety, Therapeutic Exercise Treatment Duration: Nov 18, 2020 Frequency: 3 times per week Estimated Hrs Per Day: .25 hour per day Patient and/or Family Agrees t: Yes Discharge Recommendations Therapy Discharge Recommendati: Home & Family Time/GCodes Time In: 1315 Time Out: 1328 Total Billed Treatment Time: 13 Total Billed Treatment 1 visit EVMod 13 min BENJAMIN BARNARD PT Nov 16, 2020 13:39
[2020-11-16] MEDS: ZOLPIDEM 5 MG (AMBIEN) TAB PO SCH (20:33)
[2020-11-16] MEDS: AMITRIPTYLINE 150 MG (ELAVIL) TABLET PO SCH (20:33)
[2020-11-17] MEDS: PIPERACILLIN/TAZO 4.5 GM/NS 100 ML IV SCH ×4 (02:11→09:44)
[2020-11-17 03:02] VITALS: BP 143/71
[2020-11-17 04:19] LABS: BASOPHILS % (AUTO) 0 % (0-10); EOSINOPHILS % (AUTO) 0 % (0-10); HEMATOCRIT 38 % (35-52); HEMOGLOBIN 12.1 g/dL (11.5-16.0); LYMPHOCYTES # (AUTO) 1.2 10^3/uL (1.0-4.0); LYMPHOCYTES % (AUTO) 11 % (12-44); MEAN CORPUSCULAR HEMOGLOBIN 28 pg (25-34); MEAN CORPUSCULAR HGB CONC 32 g/dL (32-36); MEAN CORPUSCULAR VOLUME 86 fL (80-99); MEAN PLATELET VOLUME 9.6 fL (9.0-12.2); MONOCYTES # (AUTO) 0.4 10^3/uL (0.0-1.0); MONOCYTES % (AUTO) 4 % (0-12); NEUTROPHILS # (AUTO) 8.8 10^3/uL (1.8-7.8); NEUTROPHILS % (AUTO) 84 % (42-75); PLATELET COUNT 242 10^3/uL (130-400); WHITE BLOOD COUNT 10.5 10^3/uL (4.3-11.0)
[2020-11-17 04:27] LABS: ALBUMIN 3.1 GM/DL (3.2-4.5); CHLORIDE 97 MMOL/L (98-107); POTASSIUM 3.9 MMOL/L (3.6-5.0); SODIUM 135 MMOL/L (135-145)
[2020-11-17 04:29] LABS: GLUCOSE 246 MG/DL (70-105); TOTAL PROTEIN 6.1 GM/DL (6.4-8.2)
[2020-11-17 04:30] LABS: CARBON DIOXIDE 27 MMOL/L (21-32)
[2020-11-17 04:31] LABS: BILIRUBIN,TOTAL 0.5 MG/DL (0.1-1.0)
[2020-11-17 04:33] LABS: ALKALINE PHOSPHATASE 141 U/L (40-136); CREATININE SERUM 0.81 MG/DL (0.60-1.30); GFR ESTIMATED > 60
[2020-11-17 04:34] LABS: BUN/CREATININE RATIO 21
[2020-11-17 04:36] LABS: ALANINE AMINOTRANSFERASE 22 U/L (0-55)
[2020-11-17] MEDS: guaiFENesin SYRUP 100 MG/5 ML 10 ML (ROBITUSSIN SF) PO PRN ×3 (05:03→19:44)
[2020-11-17] MEDS: CATHETER FLUSH 10 ML SYR IV SCH ×3 (05:04→21:10)
[2020-11-17] MEDS: inSUlin ASPART (NovoLOG) 1 UNIT/0.01 ML (CHARGE PER UNIT) SC SCH ×4 (05:04→21:09)
[2020-11-17 08:00] VITALS: BP 175/74
[2020-11-17] MEDS: LACTOBACILLUS ACIDOPHILUS (PROBIOTIC) CAPSULE PO SCH ×3 (09:42→18:07)
[2020-11-17] MEDS: CYANOCOBALAMIN 1,000 MCG (VITAMIN B-12) TABLET PO SCH (09:42)
[2020-11-17] MEDS: NITROFURANTOIN 50 MG (MACRODANTIN) CAP PO SCH (09:42)
[2020-11-17] MEDS: HYDROmorphone (DILAUDID) 2 MG TAB PO PRN ×3 (09:42→19:44)
[2020-11-17] MEDS: PRAMIPEXOLE 0.5 MG TAB (MIRAPEX) PO SCH ×2 (09:42→21:09)
[2020-11-17] MEDS: LINAGLIPTIN (TRADJENTA) 5 MG TABLET PO SCH (09:42)
[2020-11-17] MEDS: VITAMIN D3 25 MCG (1,000 UNITS) TABLET PO SCH (09:43)
[2020-11-17] MEDS: FERROUS SULF 325 MG (IRON) TAB PO SCH (09:43)
[2020-11-17] MEDS: CELECOXIB 100 MG (CeleBREX) CAP PO SCH (09:43)
[2020-11-17] MEDS: PANTOPRAZOLE 40 MG (PROTONIX) TAB PO SCH (09:44)
[2020-11-17] MEDS: glipiZIDE 5 MG (GLUCOTROL) TAB PO SCH (09:44)
[2020-11-17] MEDS: HYDROCHLOROTHIAZIDE 25 MG (HCTZ) TAB PO SCH (09:44)
[2020-11-17] MEDS: SIMvastatin 40 MG (ZOCOR) TAB PO SCH (09:44)
[2020-11-17] MEDS: APIXABAN 5 MG (ELIQUIS) TABLET PO SCH ×2 (09:44→21:09)
--- NOTE | 2020-11-17 11:25 | Physical Therapy Progress Note ---
Therapy Progress Note PT assisted by unplugging IV pole patient ambulates independently in room and to restroom without difficulty. Patient has been up ad salo in room. Plan dismissal to home tomorrow per report. 1 visit BENJAMIN BARNARD PT Nov 17, 2020 11:25
[2020-11-17 12:00] VITALS: BP 178/97
--- NOTE | 2020-11-17 13:58 | Discharge Inst-Simple/Standard ---
Discharge Inst-Standard Patient Instructions/Follow Up Plan of Care/Instructions/FU: Please continue to take your medications as written. Please follow up with Dr Campos to follow up this hospital stay. Activity as Tolerated: Yes Discharge Diet: No Restrictions Return to The Hospital For: Chest pain, shortness of breath, confusion, fever, weakness, if you feel you are getting worse. HONORIO HAMPTON MD Nov 17, 2020 13:58
[2020-11-17] MEDS ORDERED: AMOX1TAB12 PO (14:00)
[2020-11-17 15:33] VITALS: BP 126/69
[2020-11-17] MEDS: AUGMENTIN 875 MG TAB (AMOXICILLIN/CLAVULANATE) PO SCH (18:07)
[2020-11-17 19:01] VITALS: BP 116/58
[2020-11-17] MEDS: AMITRIPTYLINE 150 MG (ELAVIL) TABLET PO SCH (21:09)
[2020-11-17] MEDS: ZOLPIDEM 5 MG (AMBIEN) TAB PO SCH (21:09)
[2020-11-17 23:06] VITALS: BP 146/80
[2020-11-18 04:29] VITALS: BP 148/76
[2020-11-18] MEDS: CATHETER FLUSH 10 ML SYR IV SCH (05:14)
[2020-11-18] MEDS: inSUlin ASPART (NovoLOG) 1 UNIT/0.01 ML (CHARGE PER UNIT) SC SCH ×2 (05:14→13:46)
[2020-11-18] MEDS: HYDROmorphone (DILAUDID) 2 MG TAB PO PRN (05:14)
[2020-11-18 08:10] VITALS: BP 153/81
[2020-11-18] MEDS: guaiFENesin SYRUP 100 MG/5 ML 10 ML (ROBITUSSIN SF) PO PRN (09:26)
[2020-11-18] MEDS: LACTOBACILLUS ACIDOPHILUS (PROBIOTIC) CAPSULE PO SCH ×2 (09:28→13:46)
[2020-11-18] MEDS: CYANOCOBALAMIN 1,000 MCG (VITAMIN B-12) TABLET PO SCH (09:30)
[2020-11-18] MEDS: CELECOXIB 100 MG (CeleBREX) CAP PO SCH (09:30)
[2020-11-18] MEDS: HYDROCHLOROTHIAZIDE 25 MG (HCTZ) TAB PO SCH (09:31)
[2020-11-18] MEDS: LINAGLIPTIN (TRADJENTA) 5 MG TABLET PO SCH (09:31)
[2020-11-18] MEDS: VITAMIN D3 25 MCG (1,000 UNITS) TABLET PO SCH (09:31)
[2020-11-18] MEDS: PRAMIPEXOLE 0.5 MG TAB (MIRAPEX) PO SCH (09:31)
[2020-11-18] MEDS: FERROUS SULF 325 MG (IRON) TAB PO SCH (09:33)
[2020-11-18] MEDS: APIXABAN 5 MG (ELIQUIS) TABLET PO SCH (09:33)
[2020-11-18] MEDS: PANTOPRAZOLE 40 MG (PROTONIX) TAB PO SCH (09:33)
[2020-11-18] MEDS: SIMvastatin 40 MG (ZOCOR) TAB PO SCH (09:34)
[2020-11-18] MEDS: glipiZIDE 5 MG (GLUCOTROL) TAB PO SCH (09:34)
[2020-11-18] MEDS: NITROFURANTOIN 50 MG (MACRODANTIN) CAP PO SCH (09:35)
[2020-11-18] MEDS: AUGMENTIN 875 MG TAB (AMOXICILLIN/CLAVULANATE) PO SCH (09:35)
[2020-11-18] MEDS: polyethylene glycoL POWDER 17 GM (MIRALAX) PACK PO PRN (09:48)
[2020-11-18 12:00] VITALS: BP 149/77
--- NOTE | 2020-11-18 12:04 | Discharge Summary ---
Diagnosis/Chief Complaint Date of Admission Nov 14, 2020 at 12:14 Date of Discharge Discharge Date: Nov 17, 2020 Admission Diagnosis Acute hypoxic respiratory failure Primary Care Shadi Maxwell MD Discharge Diagnosis (1) Pneumonia due to COVID-19 virus Status: Acute (2) Hypoxia Status: Acute (3) Uncontrolled diabetes mellitus Status: Acute (4) Type 2 diabetes mellitus Status: Chronic Discharge Summary Procedures/Consulations Pulm- Dr Rudolph Discharge Physical Exam Allergies: Coded Allergies: No Known Drug Allergies (Unverified , 02/11/14) Vitals & I&Os Vital Signs Date Time Temp Pulse Resp B/P (MAP) Pulse Ox O2 Delivery O2 Flow Rate FiO2 11/18/20 12:00 36.6 84 18 149/77 (101) 95 Nasal Cannula 2.00 General Appearance: No Apparent Distress, Chronically ill, Obese Respiratory: Lungs Clear, No Accessory Muscle Use Cardiovascular: Regular Rate, Rhythm, No Murmur Neurologic/Psychiatric: Alert, Oriented x3 Hospital Course Pt was admitted to the hospital due to COVID pneumonia. She states she was diagnosed with COVID in May and had a negative and then tested positive again earlier this month. She received BAM but was admitted due to hypoxia. She was treated with IV abx and improved somewhat though minimally. We discussed the jail repercussions of COVID and being a "long hauler." She was referred to [facility] for post-COVID management and to Pulmonary Rehab here. Continuous oxygen was required and this was arranged prior to discharge. She is to follow up with her primary care doctor to follow up this hospital stay. Labs (last 24 hrs) Laboratory Tests 11/17/20 15:35: Glucometer 378H 11/17/20 20:35: Glucometer 319H 11/18/20 04:26: Glucometer 176H Microbiology 11/14/20 Urine Culture - Final, Complete NO GROWTH 11/14/20 Influenza Types A,B Antigen (ADAMARIS) - Final, Complete 11/14/20 Blood Culture - Preliminary, Resulted No growth Patient resulted labs reviewed. Pending Labs Imaging: Reviewed Imaging Report Discussion & Recommendations Discharge Planning: >30 minutes discharge planning Discharge Home Medications: Active Scripts Active Amox Tr-K Clv 875-125 mg Tab (Amoxicillin/Potassium Clav) 1 Each Tablet 875 Mg PO BID WITH MEALS Reported Cyanocobalamin Injection (Cyanocobalamin) 1,000 Mcg/Ml Inj 1,000 Mcg IM MONTLY Hydromorphone HCl 2 Mg Tablet 2 Mg PO Q4H PRN Januvia (Sitagliptin Phosphate) 100 Mg Tablet 100 Mg PO DAILY Vitamin E 1,000 Unit Capsule 1,000 Unit PO DAILY Miralax (Polyethylene Glycol 3350) 17 Gm Powd.pack 17 Gm PO DAILY PRN Vitamin B-12 (Cyanocobalamin (Vitamin B-12)) 1,000 Mcg Tablet 1,000 Mcg PO DAILY Docusate Sodium 100 Mg Capsule 100 Mg PO BID PRN Vitamin D3 (Cholecalciferol (Vitamin D3)) 25 Mcg Tablet 25 Mcg PO DAILY Triamcinolone Acetonide 0.1% Cream (Triamcinolone Acet) 15 Gm Cr 1 Applic TOP TID PRN Fluconazole 150 Mg Tablet 150 Mg PO MON Nitrofurantoin (Nitrofurantoin Macrocrystal) 100 Mg Capsule 100 Mg PO DAILY Simvastatin 40 Mg Tablet 40 Mg PO DAILY Celebrex (Celecoxib) 200 Mg Capsule 200 Mg PO DAILY Estradiol 42.5 Gm Cream.appl 1 Applic VG UD Pramipexole Dihydrochloride (Pramipexole Di-HCl) 1 Mg Tablet 1 Mg PO BID Dicyclomine HCl 10 Mg Capsule 10 Mg PO TID PRN Glipizide 10 Mg Tablet 10 Mg PO DAILY Ventolin Hfa (Albuterol Sulfate) 1 Puff Puff 2 Puff INH Q6H PRN Amitriptyline HCl 75 Mg Tablet 75 Mg PO HS Eliquis (Apixaban) 5 Mg Tablet 5 Mg PO BID Zolpidem Tartrate ER (Zolpidem Tartrate) 12.5 Mg Tab.mphase 12.5 Mg PO HS Iron (Ferrous Sulfate) 325 Mg Tablet 325 Mg PO DAILY Pantoprazole Sodium 40 Mg Tablet.dr 40 Mg PO DAILY Probiotic (Lactobacillus Combo No.10) 1 Each Capsule 1 Cap PO DAILY Hydrochlorothiazide 25 Mg Tablet 25 Mg PO DAILY Instructions to patient/family Please see electronic discharge instructions given to patient. Copy Copies To 1: SHADI MAXWELL MD,HONORIO Kiran MD Nov 18, 2020 12:04
[2020-11-18 14:05] VITALS: BP 149/77
[2020-11-20] MEDS ORDERED: fluCOnazole (DIFLUCAN) 100 MG TAB PO SCH (09:00)
== END 2020-11-18 14:05 | disposition home or self-care (01) | DRG 177 ==
LOC: EDUNIT# 08:56 → ER 08:57 → 4TH 12:14
PROVIDERS: ADMIT Family Medicine; ATTEND Family Medicine
DX: U07.1 COVID-19 (principal); J12.82 Pneumonia due to coronavirus disease 2019; J96.01 Acute respiratory failure with hypoxia; J44.1 Chronic obstructive pulmonary disease with (acute) exacerbation; J44.0 Chronic obstructive pulmonary disease with (acute) lower respiratory infection; Z73.0 Burn-out; Z90.49 Acquired absence of other specified parts of digestive tract; G47.39 Other sleep apnea; Z86.711 Personal history of pulmonary embolism; E78.00 Pure hypercholesterolemia, unspecified; M19.90 Unspecified osteoarthritis, unspecified site; G89.29 Other chronic pain; M54.9 Dorsalgia, unspecified; F41.9 Anxiety disorder, unspecified; F32.9 Major depressive disorder, single episode, unspecified; E11.9 Type 2 diabetes mellitus without complications; G25.81 Restless legs syndrome
CPT/HCPCS: 36415; 71045; 71275; 80053; 81000; 82962; 83605; 83615; 84145; 85025; 85379; 85610; 85730; 86141; 87040; 87088; 87804; 94640; 94760; 94761; 96374; 96375

== ENCOUNTER → 2020-12-02 | Outpatient (CLI) | payer MEDICARE, OTHER ==
[~2020-12-02] MED LIST changes: +AMOX1TAB12 PO; +CHOL-34 PO; +CNC1KV IM; +CYAN-41 PO; +DOCU100C37 PO; +FLUC150T2 PO; +HYDR2TAB6 PO; +NITR100C PO; +POLY17PO6 PO; +TR1C15 TOP; +VITA100049 PO
== END ==
LOC: RAD 12:30
DX: R06.02 Shortness of breath (principal)

== ENCOUNTER → 2020-12-04 | Outpatient (CLI) | payer MEDICARE, OTHER ==
--- NOTE | 2020-12-04 17:39 | Diagnostic Imaging Report ---
INDICATION: Shortness of air. COMPARISON: 11/14/2020 FINDINGS: Frontal and lateral radiographic views of the chest were obtained and show overall improved aeration. Scattered parenchymal infiltrates persist. There is no large effusion or pneumothorax. Cardiac silhouette and pulmonary vasculature are within normal limits. Right internal jugular Port-A-Cath is seen with tip in the SVC. Osseous structures show no acute abnormalities. IMPRESSION: 1. Overall improved aeration, but with persistent scattered infiltrates. Dictated by: Dictated on workstation # [id number]
== END ==
LOC: RAD 16:15
DX: R06.02 Shortness of breath (principal)
CPT/HCPCS: 71046

== ENCOUNTER 2020-12-18 10:25 | Emergency (ER) | payer MEDICARE, OTHER ==
[~2020-12-18] VITALS: Ht 167.7 cm; Wt 111.1 kg
--- NOTE | 2020-12-18 10:51 | ED Dyspnea ---
General Stated Complaint: SOB, HIGH SUGAR LEVELS Source of Information: Patient Exam Limitations: No Limitations History of Present Illness Date Seen by Provider: Dec 18, 2020 Time Seen by Provider: 10:35 Initial Comments Patient is a 70-year-old female who presents to the emergency department today with a chief complaint of elevated blood sugar in the 400 range as well as shortness of breath. Patient states that she has a history of chronic shortness of breath on home oxygen at 3 L per nasal cannula all the time. She states it is a little bit worse this morning. She is chronically anticoagulated on Eliq uis. Patient states that she was not able to sleep last night secondary to shortness of breath so she got up and may have had a glass of milk and a couple of cookies which would account for her elevated blood sugar. She denies chest pain or abdominal pain no nausea vomiting, GI or complaints. No swelling in her legs. She states she is on hydrochlorothiazide and has been on it for 17 years since her brain surgery. Patient tells me that she has no history of congestive heart failure. She has had Covid twice once in May and once in October. She was hospitalized both times. She did receive Bam with her second bout of Covid. Blood sugar in the emergency department this morning is 250. She does demonstrate a little increased work of breathing but oxygen saturations on her 3 L are acceptable. Otherwise vital signs are all within normal range. She is not wheezing at the moment but I do hear a few scattered crackles in her bilateral lower lungs posteriorly. All other review of systems reviewed and negative except as stated. Timing/Duration: 1-3 Hours Severity: Moderate Prior Episodes/Possible Cause: Occasional Episodes Modifying Factors: Improves With Albuterol Nebulizer, Improves With Coughing (dry) Associated Symptoms: Anxiety, Insomnia Allergies and Home Medications Allergies Coded Allergies: No Known Drug Allergies (Unverified , 02/11/14) Home Medications Albuterol Sulfate 1 Puff Puff, 2 PUFF INH Q6H PRN for SHORTNESS OF BREATH, (Reported) Amitriptyline HCl 75 Mg Tablet, 75 MG PO HS, (Reported) Amoxicillin/Potassium Clav 1 Each Tablet, 875 MG PO BID WITH MEALS Prescribed by: HONORIO HAMPTON on 11/17/20 1400 Apixaban 5 Mg Tablet, 5 MG PO BID, (Reported) Celecoxib 200 Mg Capsule, 200 MG PO DAILY, (Reported) Cholecalciferol (Vitamin D3) 25 Mcg Tablet, 25 MCG PO DAILY, (Reported) Cyanocobalamin 1,000 Mcg/Ml Inj, 1,000 MCG IM MONTLY, (Reported) Cyanocobalamin (Vitamin B-12) 1,000 Mcg Tablet, 1,000 MCG PO DAILY, (Reported) Dicyclomine HCl 10 Mg Capsule, 10 MG PO TID PRN for SPASMS, (Reported) Docusate Sodium 100 Mg Capsule, 100 MG PO BID PRN for CONSTIPATION-1ST LINE, (Reported) Estradiol 42.5 Gm Cream.appl, 1 APPLIC VG UD, (Reported) Ferrous Sulfate 325 Mg Tablet, 325 MG PO DAILY, (Reported) Fluconazole 150 Mg Tablet, 150 MG PO MON, (Reported) Glipizide 10 Mg Tablet, 10 MG PO DAILY, (Reported) Hydrochlorothiazide 25 Mg Tablet, 25 MG PO DAILY, (Reported) Hydromorphone HCl 2 Mg Tablet, 2 MG PO Q4H PRN for PAIN-SEVERE (8-10), (Reported) Lactobacillus Combo No.10 1 Each Capsule, 1 CAP PO DAILY, (Reported) Nitrofurantoin Macrocrystal 100 Mg Capsule, 100 MG PO DAILY, (Reported) Pantoprazole Sodium 40 Mg Tablet.dr, 40 MG PO DAILY, (Reported) Polyethylene Glycol 3350 17 Gm Powd.pack, 17 GM PO DAILY PRN for CONSTIPATION- 2ND LINE, (Reported) Pramipexole Di-HCl 1 Mg Tablet, 1 MG PO BID, (Reported) Simvastatin 40 Mg Tablet, 40 MG PO DAILY, (Reported) Sitagliptin Phosphate 100 Mg Tablet, 100 MG PO DAILY, (Reported) Triamcinolone Acet 15 Gm Cr, 1 APPLIC TOP TID PRN for RASH, (Reported) Vitamin E 1,000 Unit Capsule, 1,000 UNIT PO DAILY, (Reported) Zolpidem Tartrate 12.5 Mg Tab.mphase, 12.5 MG PO HS, (Reported) Patient Home Medication List Home Medication List Reviewed: Yes Review of Systems Review of Systems Constitutional: see HPI EENTM: no symptoms reported Respiratory: cough; No hemoptysis, No phlegm; short of breath; No wheezing Cardiovascular: no symptoms reported; No chest pain, No edema Gastrointestinal: no symptoms reported; No abdominal pain Genitourinary: no symptoms reported, other (complains of a yeast infections - has medications for this) Musculoskeletal: no symptoms reported Skin: no symptoms reported Psychiatric/Neurological: No Symptoms Reported All Other Systems Reviewed Negative Unless Noted: Yes Past Odotcgt-Yoolkg-Xcifnm Hx Patient Social History 2nd Hand Smoke Exposure: No Recent Hopitalizations: No Immunizations Up To Date Tetanus Booster (TDap): More than 5yrs Date of Pneumonia Vaccine: Apr 15, 2015 Date of Influenza Vaccine: Jun 25, 2020 Seasonal Allergies Seasonal Allergies: No Past Medical History Surgeries: Yes (R knee replaced x2, port, c/s x3, hernia x5, rotator cuff, left wrist) Abdominal, Appendectomy, Hysterectomy, Joint Replacement, Neurological, Orthopedic, Thyroidectomy, Tonsillectomy Respiratory: Yes Asthma, Pneumonia, Chronic Bronchitis, Pulmonary Embolism, Sleep Apnea Currently Using CPAP: Yes Cardiac: Yes High Cholesterol Neurological: Yes (CHIARI MALFORMATION--SURGICAL REPAIR; RESTLESS LEG SYNDROME) Reproductive Disorders: No Female Reproductive Disorders: Denies [employer] History: Hysterectomy Sexually Transmitted Disease: No HIV/AIDS: No Genitourinary: Yes Bladder Infection Gastrointestinal: Yes ("COMPLETE ABDOMINAL RECONSTRUCTION" 2009. CHRONIC ABDOMINAL PAIN) Chronic Constipation, Chronic Diarrhea Musculoskeletal: Yes Arthritis, Chronic Back Pain Endocrine: Yes (BENIGN MASS LEFT THYROID REMOVED 01/01/2013) Diabetes, Non-Insulin dep HEENT: Yes Cataract Loss of Vision: Denies Hearing Impairment: Denies Cancer: No Psychosocial: Yes Anxiety, Depression Integumentary: No Blood Disorders: No Adverse Reaction/Blood Tranf: No Family Medical History Cancer 03 FATHER (PANCREATIC, PASSED AT 65 FROM THIS) Cataract 03 MOTHER Dementia 03 MOTHER Family history: Arthritis 03 MOTHER Family history: Cardiovascular disease 03 MOTHER (HIGH CHOLESTEROL, [place] ARTERIES 2 TIMES) Hearing loss 03 MOTHER Hypercholesterolemia 03 MOTHER Cancer Physical Exam Vital Signs Vital Signs - First Documented 12/18/20 10:29 Temp 36.1 Pulse 99 Resp 20 B/P (MAP) 177/73 (107) Pulse Ox 95 O2 Delivery Nasal Cannula O2 Flow Rate 3.00 Capillary Refill : Height, Weight, BMI Height: 5'4.00" Weight: 232lbs. 0.0oz. 105.947688jv; 39.00 BMI Method:Stated General Appearance: WD/WN, Anxious HEENT: PERRL/EOMI Neck: Normal Inspection Respiratory: No Accessory Muscle Use, No Respiratory Distress, Crackles, Other (Slightly tachypneic with bilateral scattered crackles in the posterior lower lobes) Cardiovascular: Regular Rate, Rhythm, No Edema, No Gallop, No Murmur, Normal Peripheral Pulses Gastrointestinal: Non Tender, Soft Extremity: Normal Inspection, Normal Range of Motion, No Pedal Edema Neurologic/Psychiatric: Alert, Oriented x3, No Motor/Sensory Deficits, Normal M ood/Affect Skin: Normal Color, Warm/Dry Progress/Results/Core Measures Results/Orders Lab Results Laboratory Tests Test 12/18/20 10:36 12/18/20 10:47 Range/Units Glucometer 250 H 70-110 MG/DL White Blood Count 9.1 4.3-11.0 10^3/uL Red Blood Count 5.02 3.80-5.11 10^6/uL Hemoglobin 13.9 11.5-16.0 g/dL Hematocrit 45 35-52 % Mean Corpuscular Volume 89 80-99 fL Mean Corpuscular Hemoglobin 28 25-34 pg Mean Corpuscular Hemoglobin Concent 31 L 32-36 g/dL Red Cell Distribution Width 15.9 H 10.0-14.5 % Platelet Count 221 130-400 10^3/uL Mean Platelet Volume 10.3 9.0-12.2 fL Immature Granulocyte % (Auto) 1 % Neutrophils (%) (Auto) 67 42-75 % Lymphocytes (%) (Auto) 24 12-44 % Monocytes (%) (Auto) 5 0-12 % Eosinophils (%) (Auto) 2 0-10 % Basophils (%) (Auto) 1 0-10 % Neutrophils # (Auto) 6.0 1.8-7.8 10^3/uL Lymphocytes # (Auto) 2.2 1.0-4.0 10^3/uL Monocytes # (Auto) 0.5 0.0-1.0 10^3/uL Eosinophils # (Auto) 0.1 0.0-0.3 10^3/uL Basophils # (Auto) 0.1 0.0-0.1 10^3/uL Immature Granulocyte # (Auto) 0.1 0.0-0.1 10^3/uL Prothrombin Time 15.9 H 12.2-14.7 SEC INR Comment 1.2 0.8-1.4 Activated Partial Thromboplast Time 29 24-35 SEC Sodium Level 139 135-145 MMOL/L Potassium Level 3.5 L 3.6-5.0 MMOL/L Chloride Level 100 98-107 MMOL/L Carbon Dioxide Level 26 21-32 MMOL/L Anion Gap 13 5-14 MMOL/L Blood Urea Nitrogen 13 7-18 MG/DL Creatinine 0.85 0.60-1.30 MG/DL Estimat Glomerular Filtration Rate > 60 BUN/Creatinine Ratio 15 Glucose Level 277 H 70-105 MG/DL Calcium Level 9.8 8.5-10.1 MG/DL Total Creatine Kinase 35 29-168 U/L Creatine Kinase MB 1.1 <6.6 NG/ML Troponin I < 0.028 <0.028 NG/ML B-Type Natriuretic Peptide < 10.0 <100.0 PG/ML My Orders Orders - MAGALI TREVINO MD Ed Iv/Invasive Line Start (12/18/20 10:52) Cbc With Automated Diff (12/18/20 10:52) Basic Metabolic Panel (12/18/20 10:52) BNP (12/18/20 10:52) Troponin I (12/18/20 10:52) Creatine Kinase Mb (12/18/20 10:52) Creatine Kinase (12/18/20 10:52) Chest 1 View, Ap/Pa Only (12/18/20 10:52) Ekg Tracing (12/18/20 10:52) Protime With Inr (12/18/20 10:52) Partial Thromboplastin Time (12/18/20 10:52) Vital Signs/I&O 12/18/20 10:29 Temp 36.1 Pulse 99 Resp 20 B/P (MAP) 177/73 (107) Pulse Ox 95 O2 Delivery Nasal Cannula O2 Flow Rate 3.00 Progress Progress Note : Time: 12:08 Progress Note Patient seen and examined, 70-year-old who presents with a chief complaint of elevated blood sugars and shortness of breath. Evaluation today includes a CBC, chemistry, cardiac enzyme profile, BNP EKG and chest x-ray. Patient has chronic and quite extensive interstitial scarring on her chest x-ray no overt effusions or infiltrates. She does not have significant cardiomegaly. Her EKG is reviewed and is unremarkable, normal sinus rhythm with multiple premature atrial contractions but no evidence of ST segment elevation or depression. Her labs are unremarkable as well her BNP is undetectable. Cardiac enzymes are negative. Blood sugar is 277. As patient has stayed in the room she has felt more comfortable and seems to be breathing much easier on her chronic 3 L of oxygen per nasal cannula. I had a discussion with the patient regarding home life. She does seem to be quite lonely and is stressed out about quarantine and being at home due to Covid. She has no real clinical or objective findings at this time to warrant further evaluation, management or intervention. She does not meet admission criteria. She will not be started on steroids as she is not been wheezing with her COPD. No need for antibiotics due to pneumonia. Patient is encouraged to get out and about, wear her mask and continue her oxygen and her nebulizer. She verbalized understanding. All questions are sought and answered. Patient is stable for discharge. Initial ECG Impression Date: Dec 18, 2020 Initial ECG Impression Time: 11:04 Initial ECG Rate: 93 Initial ECG Rhythm: Normal Sinus Initial ECG Intervals: Normal Initial ECG Comparisson: Unchanged Diagnostic Imaging Diagonstic Imaging: Xray Plain Films/CT/US/NM/MRI: chest Comments [facility] [place] NAME: ANA LUJAN [facility] REC#: [id number] PT STATUS: REG ER : 1950 PHYSICIAN: MAGALI TREVINO MD ADMIT DATE: 12/18/20/ER Draft Date of Exam:12/18/20 CHEST 1 VIEW, AP/PA ONLY INDICATION: Dyspnea AP view of the chest is obtained with comparison made to study of 12/04/2020 Background emphysema has a similar appearance as does rather extensive interstitial lung disease involving both lungs. There is no evidence for pneumothorax or new infiltrate. No significant pleural fluid is seen. IMPRESSION: Findings indicate background emphysema and probable chronic interstitial lung disease without other evidence of acute abnormality. Dictated on workstation # [id number] Dict: 12/18/20 1111 Trans: 12/18/20 1114 CV [id number] Interpreted by: LATASHA VAUGHN MD Electronically signed by: Departure Impression Primary Impression: Dyspnea Qualified Codes: R06.02 - Shortness of breath Additional Impression: Hyperglycemia due to type 2 diabetes mellitus Qualified Codes: E11.65 - Type 2 diabetes mellitus with hyperglycemia; Z79.4 - intermediate (current) use of insulin Disposition: HOME, SELF-CARE Condition: Stable Departure-Patient Inst. Decision time for Depature: 12:03 Referrals: SABIHA MAXWELL MD (PCP/Family) Primary Care Physician Patient Instructions: Shortness of Breath (Dyspnea) (DC) Add. Discharge Instructions: Continue your home daily medications as previously prescribed. You can use your nebulizer 3 times a day as needed for shortness of breath. Return to the emergency room if you have worsening shortness of breath with cough, fever, nausea vomiting or any other emergent concerning symptoms. MAGALI TREVINO MD Dec 18, 2020 10:51
[2020-12-18 10:59] LABS: BASOPHILS # (AUTO) 0.1 10^3/uL (0.0-0.1); BASOPHILS % (AUTO) 1 % (0-10); EOSINOPHILS # (AUTO) 0.1 10^3/uL (0.0-0.3); EOSINOPHILS % (AUTO) 2 % (0-10); HEMATOCRIT 45 % (35-52); HEMOGLOBIN 13.9 g/dL (11.5-16.0); LYMPHOCYTES # (AUTO) 2.2 10^3/uL (1.0-4.0); LYMPHOCYTES % (AUTO) 24 % (12-44); MEAN CORPUSCULAR HEMOGLOBIN 28 pg (25-34); MEAN CORPUSCULAR HGB CONC 31 g/dL (32-36); MEAN CORPUSCULAR VOLUME 89 fL (80-99); MEAN PLATELET VOLUME 10.3 fL (9.0-12.2); MONOCYTES # (AUTO) 0.5 10^3/uL (0.0-1.0); MONOCYTES % (AUTO) 5 % (0-12); NEUTROPHILS % (AUTO) 67 % (42-75); PLATELET COUNT 221 10^3/uL (130-400); WHITE BLOOD COUNT 9.1 10^3/uL (4.3-11.0)
[2020-12-18 11:12] LABS: INR 1.2 (0.8-1.4); PROTHROMBIN TIME PATIENT 15.9 SEC (12.2-14.7)
--- NOTE | 2020-12-18 11:14 | Diagnostic Imaging Report ---
INDICATION: Dyspnea AP view of the chest is obtained with comparison made to study of 12/04/2020 Background emphysema has a similar appearance as does rather extensive interstitial lung disease involving both lungs. There is no evidence for pneumothorax or new infiltrate. No significant pleural fluid is seen. IMPRESSION: Findings indicate background emphysema and probable chronic interstitial lung disease without other evidence of acute abnormality. Dictated by: Dictated on workstation # [id number]
[2020-12-18 11:17] LABS: BUN/CREATININE RATIO 15; CALCIUM 9.8 MG/DL (8.5-10.1); CARBON DIOXIDE 26 MMOL/L (21-32); CHLORIDE 100 MMOL/L (98-107); CREATINE KINASE 35 U/L (29-168); CREATININE SERUM 0.85 MG/DL (0.60-1.30); GFR ESTIMATED > 60; GLUCOSE 277 MG/DL (70-105); POTASSIUM 3.5 MMOL/L (3.6-5.0); SODIUM 139 MMOL/L (135-145)
[2020-12-18 11:23] LABS: CREATINE KINASE MB 1.1 NG/ML (<6.6)
[2020-12-18 12:34] VITALS: BP 138/69
== END 2020-12-18 12:34 | disposition home or self-care (01) ==
LOC: EDUNIT# 10:25 → ER 10:27
DX: R06.00 Dyspnea, unspecified (principal); E11.65 Type 2 diabetes mellitus with hyperglycemia; J45.909 Unspecified asthma, uncomplicated; E78.00 Pure hypercholesterolemia, unspecified; F41.9 Anxiety disorder, unspecified; F32.9 Major depressive disorder, single episode, unspecified; Z86.711 Personal history of pulmonary embolism; Z86.16 Personal history of COVID-19; Z79.01 Long term (current) use of anticoagulants; Z79.899 Other long term (current) drug therapy
CPT/HCPCS: 36415; 71045; 80048; 82550; 82553; 82962; 83880; 84484; 85025; 85610; 85730; 93005

== ENCOUNTER → 2021-01-10 | Outpatient (CLI) | payer MEDICARE, OTHER ==
--- NOTE | 2021-01-10 17:06 | Diagnostic Imaging Report ---
INDICATION: Shortness of breath. EXAMINATION: PA and lateral chest. FINDINGS: Right IJ Port-A-Cath tip projects over the SVC. There is bilateral perihilar discoid atelectasis. There is no infiltrate, effusion or pneumothorax. IMPRESSION: No acute abnormality in the chest. Dictated by: Dictated on workstation # [id number]
== END ==
LOC: RAD 16:30
DX: R06.02 Shortness of breath (principal)
CPT/HCPCS: 71046

== ENCOUNTER 2021-01-11 13:00 | Outpatient (RCR) | payer MEDICARE, OTHER ==
[~2021-01-11 13:00] MED LIST changes: +DICL100G13 TOP; -DICL100G31 TOP; -OXYC-464 PO; +OXYC1TAB15 PO
[2021-01-27] MEDS ORDERED: PRD20T PO (08:09)
[2021-01-29] MEDS ORDERED: CARB1TAB19 PO (11:27)
[2021-01-29] MEDS ORDERED: HYDR-87 PO (11:27)
[2021-01-29] MEDS ORDERED: ASCO-262 PO (11:30)
[2021-01-29] MEDS ORDERED: PRD20T PO (11:40)
[2021-01-29] MEDS ORDERED: INSU100I32 SQ (13:51)
[2021-01-30] MEDS ORDERED: INSU100I32 SQ ×2 (10:53→15:08)
== END 2021-03-20 | disposition home or self-care (01) ==
LOC: PULM 13:00
DX: U07.1 COVID-19 (principal)
CPT/HCPCS: 99211

== ENCOUNTER 2021-01-27 06:03 | Emergency (ER) | payer MEDICARE, OTHER ==
[~2021-01-27] VITALS: Ht 167 cm; Wt 200.0 kg
[2021-01-27] MEDS ORDERED: RT-ALBUTEROL/IPRATROPIUM 3 ML (DUONEB) VIAL ONE (06:12)
[2021-01-27] MEDS ORDERED: methylPREDNISolone 125 MG (Solu-MEDROL) VIAL ONE (06:13)
[2021-01-27] MEDS ORDERED: methylPREDNISolone 125 MG (Solu-MEDROL) VIAL IVP ONE (06:30)
[2021-01-27] MEDS ORDERED: RT-ALBUTEROL/IPRATROPIUM 3 ML (DUONEB) VIAL INH ONE (06:30)
[2021-01-27 07:02] LABS: BASOPHILS % (AUTO) 1 % (0-10); EOSINOPHILS # (AUTO) 0.2 10^3/uL (0.0-0.3); EOSINOPHILS % (AUTO) 3 % (0-10); HEMATOCRIT 44 % (35-52); HEMOGLOBIN 14.1 g/dL (11.5-16.0); LYMPHOCYTES % (AUTO) 37 % (12-44); MEAN CORPUSCULAR HEMOGLOBIN 29 pg (25-34); MEAN CORPUSCULAR HGB CONC 32 g/dL (32-36); MEAN CORPUSCULAR VOLUME 88 fL (80-99); MEAN PLATELET VOLUME 9.8 fL (9.0-12.2); MONOCYTES # (AUTO) 0.4 10^3/uL (0.0-1.0); MONOCYTES % (AUTO) 5 % (0-12); NEUTROPHILS # (AUTO) 4.5 10^3/uL (1.8-7.8); NEUTROPHILS % (AUTO) 55 % (42-75); PLATELET COUNT 207 10^3/uL (130-400); WHITE BLOOD COUNT 8.2 10^3/uL (4.3-11.0)
[2021-01-27 07:09] LABS: ALBUMIN 3.9 GM/DL (3.2-4.5); CHLORIDE 98 MMOL/L (98-107); POTASSIUM 3.7 MMOL/L (3.6-5.0); SODIUM 137 MMOL/L (135-145)
[2021-01-27 07:11] LABS: GLUCOSE 356 MG/DL (70-105)
[2021-01-27 07:12] LABS: CARBON DIOXIDE 24 MMOL/L (21-32)
--- NOTE | 2021-01-27 07:12 | ED Respiratory ---
General Chief Complaint: Respiratory Problems Stated Complaint: SOB Nursing Triage Note: Pt. presented to the ER today with complaints of shortness of breath. She states she is always short of breath but that it has become progressively worse. Source: patient, old records Exam Limitations: no limitations History of Present Illness Date Seen by Provider: Jan 27, 2021 Time Seen by Provider: 06:08 Initial Comments This is 70-year-old woman with chronic COPD presents to the emergency room by private vehicle with complaints of worsening shortness of breath. She has c hronic shortness of breath, especially after having to COVID-19 infections last year, but her shortness of breath is acutely worse this morning. This seemed to be most exacerbated after a coughing fit. She uses oxygen continuously at 3 L/min. She uses nebulizer treatments at home and the last used a treatment around 0530. She frequently needs to take steroids for acute exacerbations of her chronic bronchitis. She also has an insulin controlled diabetic and takes Eliquis for prior history of PE. She is ambulatory on arrival and is not wearing her oxygen because the canister was too heavy to bring in from the car. Even without oxygen her oxygen saturation is 95% on room air. She has a very tight wheezing and some coughing. She denies fever or other symptoms of infectious illness or COVID-19 symptoms. She has not had a negative Covid 19 test since her last positive. Allergies and Home Medications Allergies Coded Allergies: No Known Drug Allergies (Unverified , 02/11/14) Home Medications Albuterol Sulfate 1 Puff Puff, 2 PUFF INH Q6H PRN for SHORTNESS OF BREATH, (Reported) Amitriptyline HCl 75 Mg Tablet, 75 MG PO HS, (Reported) Amoxicillin/Potassium Clav 1 Each Tablet, 875 MG PO BID WITH MEALS Prescribed by: HONORIO HAMPTON on 11/17/20 1400 Apixaban 5 Mg Tablet, 5 MG PO BID, (Reported) Celecoxib 200 Mg Capsule, 200 MG PO DAILY, (Reported) Cholecalciferol (Vitamin D3) 25 Mcg Tablet, 25 MCG PO DAILY, (Reported) Cyanocobalamin 1,000 Mcg/Ml Inj, 1,000 MCG IM MONTLY, (Reported) Cyanocobalamin (Vitamin B-12) 1,000 Mcg Tablet, 1,000 MCG PO DAILY, (Reported) Dicyclomine HCl 10 Mg Capsule, 10 MG PO TID PRN for SPASMS, (Reported) Docusate Sodium 100 Mg Capsule, 100 MG PO BID PRN for CONSTIPATION-1ST LINE, (Reported) Estradiol 42.5 Gm Cream.appl, 1 APPLIC VG UD, (Reported) Ferrous Sulfate 325 Mg Tablet, 325 MG PO DAILY, (Reported) Fluconazole 150 Mg Tablet, 150 MG PO MON, (Reported) Glipizide 10 Mg Tablet, 10 MG PO DAILY, (Reported) Hydrochlorothiazide 25 Mg Tablet, 25 MG PO DAILY, (Reported) Hydromorphone HCl 2 Mg Tablet, 2 MG PO Q4H PRN for PAIN-SEVERE (8-10), (Reported) Lactobacillus Combo No.10 1 Each Capsule, 1 CAP PO DAILY, (Reported) Nitrofurantoin Macrocrystal 100 Mg Capsule, 100 MG PO DAILY, (Reported) Pantoprazole Sodium 40 Mg Tablet.dr, 40 MG PO DAILY, (Reported) Polyethylene Glycol 3350 17 Gm Powd.pack, 17 GM PO DAILY PRN for CONSTIPATION- 2ND LINE, (Reported) Pramipexole Di-HCl 1 Mg Tablet, 1 MG PO BID, (Reported) Prednisone 20 Mg Tab, 40 MG PO DAILY Prescribed by: GIOVANNI ROSENBAUM on 01/27/21 0809 Simvastatin 40 Mg Tablet, 40 MG PO DAILY, (Reported) Sitagliptin Phosphate 100 Mg Tablet, 100 MG PO DAILY, (Reported) Triamcinolone Acet 15 Gm Cr, 1 APPLIC TOP TID PRN for RASH, (Reported) Vitamin E 1,000 Unit Capsule, 1,000 UNIT PO DAILY, (Reported) Zolpidem Tartrate 12.5 Mg Tab.mphase, 12.5 MG PO HS, (Reported) Patient Home Medication List Home Medication List Reviewed: Yes Review of Systems Review of Systems Constitutional: no symptoms reported EENTM: no symptoms reported Respiratory: see HPI Cardiovascular: no symptoms reported Gastrointestinal: no symptoms reported Genitourinary: no symptoms reported : No Musculoskeletal: no symptoms reported Skin: no symptoms reported Psychiatric/Neurological: No Symptoms Reported Hematologic/Lymphatic: No Symptoms Reported Immunological/Allergic: no symptoms reported Past Lwpolvd-Qrkrhu-Zfcpgn Hx Past Med/Social Hx: Reviewed Nursing Past Med/Soc Hx Patient Social History Alcohol Use: Denies Use Smoking Status: Never a Smoker 2nd Hand Smoke Exposure: No Recent Infectious Disease Expo: No Recent Hopitalizations: No Immunizations Up To Date Tetanus Booster (TDap): More than 5yrs Date of Pneumonia Vaccine: Apr 15, 2015 Date of Influenza Vaccine: Jun 25, 2020 Seasonal Allergies Seasonal Allergies: No Past Medical History Surgeries: Yes (R knee replaced x2, port, c/s x3, hernia x5, rotator cuff, left wrist) Abdominal, Appendectomy, Hysterectomy, Joint Replacement, Neurological, Orthopedic, Thyroidectomy, Tonsillectomy Respiratory: Yes Asthma, Pneumonia, Chronic Bronchitis, Pulmonary Embolism, Sleep Apnea Currently Using CPAP: Yes Cardiac: Yes High Cholesterol Neurological: Yes (CHIARI MALFORMATION--SURGICAL REPAIR; RESTLESS LEG SYNDROME) Reproductive Disorders: No Female 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 CHRONIC ABDOMINAL PAIN) Chronic Constipation, Chronic Diarrhea Musculoskeletal: Yes Arthritis, Chronic Back Pain Endocrine: Yes (BENIGN MASS LEFT THYROID REMOVED 01/01/2013) Diabetes, Non-Insulin dep HEENT: Yes Cataract Loss of Vision: Denies Hearing Impairment: Denies Cancer: No Psychosocial: Yes Anxiety, Depression Integumentary: No Blood Disorders: No Adverse Reaction/Blood Tranf: No Family Medical History Cancer 03 FATHER (PANCREATIC, PASSED AT 65 FROM THIS) Cataract 03 MOTHER Dementia 03 MOTHER Family history: Arthritis 03 MOTHER Family history: Cardiovascular disease 03 MOTHER (HIGH CHOLESTEROL, [place] ARTERIES 2 TIMES) Hearing loss 03 MOTHER Hypercholesterolemia 03 MOTHER Cancer Physical Exam Vital Signs - First Documented 01/27/21 01/27/21 06:33 08:54 Temp 35.3 Pulse 84 Resp 16 B/P (MAP) 172/92 (118) Pulse Ox 97 O2 Delivery Nasal Cannula O2 Flow Rate 2.00 FiO2 100 Capillary Refill : Less Than 3 Seconds Height: 5'4.00" Weight: 232lbs. 0.0oz. 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, no motor/sensory deficits, alert, normal mood/affect, oriented x 3 Skin: normal color, warm/dry Progress/Results/Core Measures Suspected Sepsis Recent Fever Within 48 Hours: No Infection Criteria Present: None New/Unexplained Altered Menta: No Sepsis Screen: No Definite Risk SIRS Temperature: Pulse: 84 Respiratory Rate: 16 Laboratory Tests 01/27/21 06:48: White Blood Count 8.2 Blood Pressure 172 /92 Mean: 118 Laboratory Tests 01/27/21 06:48: Creatinine 0.92, Platelet Count 207, Total Bilirubin 0.7 Results/Orders Lab Results Laboratory Tests Test 01/27/21 06:48 01/27/21 08:41 Range/Units White Blood Count 8.2 4.3-11.0 10^3/uL Red Blood Count 4.94 3.80-5.11 10^6/uL Hemoglobin 14.1 11.5-16.0 g/dL Hematocrit 44 35-52 % Mean Corpuscular Volume 88 80-99 fL Mean Corpuscular Hemoglobin 29 25-34 pg Mean Corpuscular Hemoglobin Concent 32 32-36 g/dL Red Cell Distribution Width 14.3 10.0-14.5 % Platelet Count 207 130-400 10^3/uL Mean Platelet Volume 9.8 9.0-12.2 fL Immature Granulocyte % (Auto) 1 % Neutrophils (%) (Auto) 55 42-75 % Lymphocytes (%) (Auto) 37 12-44 % Monocytes (%) (Auto) 5 0-12 % Eosinophils (%) (Auto) 3 0-10 % Basophils (%) (Auto) 1 0-10 % Neutrophils # (Auto) 4.5 1.8-7.8 10^3/uL Lymphocytes # (Auto) 3.0 1.0-4.0 10^3/uL Monocytes # (Auto) 0.4 0.0-1.0 10^3/uL Eosinophils # (Auto) 0.2 0.0-0.3 10^3/uL Basophils # (Auto) 0.0 0.0-0.1 10^3/uL Immature Granulocyte # (Auto) 0.0 0.0-0.1 10^3/uL Sodium Level 137 135-145 MMOL/L Potassium Level 3.7 3.6-5.0 MMOL/L Chloride Level 98 98-107 MMOL/L Carbon Dioxide Level 24 21-32 MMOL/L Anion Gap 15 H 5-14 MMOL/L Blood Urea Nitrogen 17 7-18 MG/DL Creatinine 0.92 0.60-1.30 MG/DL Estimat Glomerular Filtration Rate > 60 BUN/Creatinine Ratio 18 Glucose Level 356 H 70-105 MG/DL Calcium Level 10.0 8.5-10.1 MG/DL Corrected Calcium 10.1 8.5-10.1 MG/DL Magnesium Level 1.7 1.6-2.4 MG/DL Total Bilirubin 0.7 0.1-1.0 MG/DL Aspartate Amino Transf (AST/SGOT) 32 5-34 U/L Alanine Aminotransferase (ALT/SGPT) 7 0-55 U/L Alkaline Phosphatase 127 40-136 U/L C-Reactive Protein High Sensitivity 1.53 H 0.00-0.50 MG/DL Total Protein 7.0 6.4-8.2 GM/DL Albumin 3.9 3.2-4.5 GM/DL Influenza Type A (RT-PCR) Not Detected Not Detecte Influenza Type B (RT-PCR) Not Detected Not Detecte SARS-CoV-2 RNA (RT-PCR) Not Detected Not Detecte Glucometer 325 H 70-110 MG/DL My Orders Orders - GIOVANNI GREEN MD Albuterol/Ipra Inhalation Soln (Duoneb I (01/27/21 06:12) Methylprednisolone Sod Succ (Solu-Medrol (01/27/21 06:13) Albuterol/Ipra Inhalation Soln (Duoneb I (01/27/21 06:30) Svn Small Volume Nebulizer (01/27/21 06:25) Methylprednisolone Sod Succ (Solu-Medrol (01/27/21 06:30) Implanted Port: Access (01/27/21 06:25) Covid 19 Inhouse Test (01/27/21 06:25) Influenza A And B By Pcr (01/27/21 06:25) Chest Pa/Lat (2 View) (01/27/21 06:27) Cbc With Automated Diff (01/27/21 06:27) Comprehensive Metabolic Panel (01/27/21 06:27) Hs C Reactive Protein (01/27/21 06:27) Magnesium (01/27/21 06:27) Basic Metabolic Panel (01/27/21 06:30) Magnesium 1 Gm/100 Ml Ivpb (Magnesium [place]mon (01/27/21 07:30) Hydrocodone/Apap 5/325 Tablet (Lortab 5 (01/27/21 07:30) Insulin (Regular) Human (Novolin R (Per (01/27/21 08:15) Accucheck Stat ONCE (01/27/21 08:03) Medications Given in ED Current Medications Medications Dose Ordered Sig/Eloise Route Start Time Stop Time Status Last Admin Dose Admin Acetaminophen/ Hydrocodone Bitart 1 ea ONCE ONCE PO 01/27/21 07:30 01/27/21 07:32 DC 01/27/21 07:44 1 EA Insulin Human Regular 5 unit ONCE ONCE SC 01/27/21 08:15 01/27/21 08:16 DC 01/27/21 08:13 5 UNIT Magnesium Sulfate/ Dextrose 100 ml @ 100 mls/hr ONCE ONCE IV 01/27/21 07:30 01/27/21 08:29 DC 01/27/21 07:44 100 MLS/HR Methylprednisolone Sodium Succinate 125 mg ONCE ONCE IVP 01/27/21 06:30 01/27/21 06:31 DC 01/27/21 06:44 125 MG Vital Signs/I&O 01/27/21 01/27/21 01/27/21 06:33 06:33 08:54 Temp 35.3 Pulse 84 81 Resp 16 16 B/P (MAP) 172/92 (118) 137/48 Pulse Ox 97 98 98 O2 Delivery Nasal Cannula T Piece Nasal Cannula O2 Flow Rate 2.00 FiO2 100 Capillary Refill : Less Than 3 Seconds Blood Pressure Mean: 118 Progress Note #1: Time: 07:12 Progress Note Patient is receiving a DuoNeb treatment and Solu-Medrol 125 mg IV while awaiting results from her work-up. Progress Note #2: Progress Note Micki was still quite wheezy after DuoNeb treatment, magnesium, and Solu-Medrol. However, she was stable. She was not in respiratory distress and oxygen saturation was in the upper 90s. Ultimately was determined admission was not needed but return precautions were advised. See discharge instructions. Influenza and Covid screening were both negative. Diagnostic Imaging Diagonstic Imaging: Xray Plain Films/CT/US/NM/MRI: chest Comments Chest x-ray viewed by me and report reviewed. Compared with prior. See report below: NAME: MICKI LUJAN [facility] REC#: [id number] PT STATUS: DEP ER : 1950 PHYSICIAN: GIOVANNI GREEN MD ADMIT DATE: 01/27/21/ER Signed Date of Exam:01/27/21 CHEST PA/LAT (2 VIEW) Indication: Dyspnea with cough and congestion. Comparison: Multiple exams to 04/19/2020. Discussion: Two views of the chest were obtained. Right-sided port is stable. Stable normal heart size. Eventration of the hemidiaphragms is stable. Mild interstitial thickening appears chronic. No superimposed new consolidation identified. No pleural fluid or pneumothorax. No osseous abnormality. Impression: 1. Stable changes of chronic lung disease. Dictated by: Dictated on workstation # [id number] Dict: 01/27/21 0748 Trans: 01/27/21 1528 MEÑO [id number] Interpreted by: FITO MERRILL MD Electronically signed by: FITO MERRILL MD 01/27/21 1528 Departure Impression Primary Impression: Exacerbation of chronic bronchiolitis Additional Impression: Hyperglycemia due to type 2 diabetes mellitus Qualified Codes: E11.65 - Type 2 diabetes mellitus with hyperglycemia Disposition: 01 HOME, SELF-CARE Condition: Improved Departure-Patient Inst. Decision time for Depature: 08:07 Referrals: SABIHA MAXWELL MD (PCP/Family) Primary Care Physician Patient Instructions: Chronic Bronchitis (DC) Add. Discharge Instructions: Complete your steroid burst as prescribed and contact Dr. Maxwell first thing on Friday morning for follow-up and repeat exam. Take your first dose of prednisone steroids early this afternoon. Check your blood sugars fasting in the morning and 2 hours after meals. Please call Dr. Green in the emergency room to report the type of injectable medication you are taking and to receive further instructions. Use your nebulizer treatments every 4 hours through the weekend. Take your first nebulizer treatment promptly upon returning home and continue using your oxygen continuously. Drink plenty of water and eat a very low sugar, low carbohydrate diet to help control your blood sugars. Call with any other questions or concerns. Return to the emergency room if you have worsening symptoms. All discharge instructions reviewed with patient and/or family. Voiced understanding. Scripts Prednisone (Prednisone) 20 Mg Tab 40 MG PO DAILY, #6 TAB 0 Refills Prov: GIOVANNI GREEN MD 01/27/21 GIOVANNI GREEN MD Jan 27, 2021 07:12
[2021-01-27 07:13] LABS: BILIRUBIN,TOTAL 0.7 MG/DL (0.1-1.0)
[2021-01-27 07:15] LABS: ALKALINE PHOSPHATASE 127 U/L (40-136); CREATININE SERUM 0.92 MG/DL (0.60-1.30); GFR ESTIMATED > 60
[2021-01-27 07:16] LABS: BUN/CREATININE RATIO 18
[2021-01-27 07:18] LABS: ALANINE AMINOTRANSFERASE 7 U/L (0-55); MAGNESIUM 1.7 MG/DL (1.6-2.4)
[2021-01-27] MEDS ORDERED: HYDROcodone/APAP 5 MG/325 MG (LORTAB) TAB PO ONE (07:30)
[2021-01-27] MEDS ORDERED: MAGNESIUM 1 GM/100 ML IVPB 100 ML IV ONE (07:30)
--- NOTE | 2021-01-27 07:50 | Diagnostic Imaging Report ---
Indication: Dyspnea with cough and congestion. Comparison: Multiple exams to 04/19/2020. Discussion: Two views of the chest were obtained. Right-sided port is stable. Stable normal heart size. Eventration of the hemidiaphragms is stable. Mild interstitial thickening appears chronic. No superimposed new consolidation identified. No pleural fluid or pneumothorax. No osseous abnormality. Impression: 1. Stable changes of chronic lung disease. Dictated by: Dictated on workstation # [id number]
[2021-01-27] MEDS ORDERED: PRD20T PO (08:09)
[2021-01-27] MEDS ORDERED: inSUlin (REGULAR) HUMAN 1 UNIT/0.01 ML (CHARGE PER UNIT) SC ONE (08:15)
[2021-01-27 08:54] VITALS: BP 137/48
== END 2021-01-27 08:54 | disposition home or self-care (01) ==
LOC: EDUNIT# 06:03 → ER 06:08
DX: J44.1 Chronic obstructive pulmonary disease with (acute) exacerbation (principal); E11.65 Type 2 diabetes mellitus with hyperglycemia; E78.00 Pure hypercholesterolemia, unspecified; G25.81 Restless legs syndrome; K59.09 Other constipation; G89.29 Other chronic pain; M54.9 Dorsalgia, unspecified; G47.30 Sleep apnea, unspecified; Z99.89 Dependence on other enabling machines and devices; Z79.891 Long term (current) use of opiate analgesic; Z79.84 Long term (current) use of oral hypoglycemic drugs; Z79.899 Other long term (current) drug therapy
CPT/HCPCS: 36415; 71046; 80053; 82947; 83735; 85025; 86141; 87636; 94640; 96365; 96372; 96375

== ENCOUNTER 2021-01-27 15:58 | Inpatient (IN) | payer MEDICARE, OTHER ==
[~2021-01-27] VITALS: Ht 167.7 cm; Wt 115.8 kg
[~2021-01-27 15:58] MED LIST changes: -DICL100G13 TOP; +DICL100G31 TOP; +OXYC-464 PO; -OXYC1TAB15 PO
[2021-01-27] MEDS ORDERED: LORazepam INJ 2 MG/ML (ATIVAN) VIAL IVP ONE (17:00)
[2021-01-27] MEDS ORDERED: inSUlin (REGULAR) HUMAN 1 UNIT/0.01 ML (CHARGE PER UNIT) IV ONE (17:30)
[2021-01-27] MEDS ORDERED: NS IV 1000 ML 1,000 ML IV SCH (17:30)
[2021-01-27] MEDS ORDERED: inSUlin (REGULAR) HUMAN 1 UNIT/0.01 ML (CHARGE PER UNIT) IJ ONE (17:30)
[2021-01-27 17:41] LABS: POTASSIUM 4.5 MMOL/L (3.6-5.0)
[2021-01-27 17:42] LABS: CALCIUM 10.3 MG/DL (8.5-10.1)
--- NOTE | 2021-01-27 17:42 | ED General ---
General Chief Complaint: General Problems/Pain Stated Complaint: TREMORS/SOB Nursing Triage Note: PT AMBULATE TO ROOM 08 WITH C/O TREMORS. PT STATES THAT THE TREMORS HAVE GOTTEN WORSE SINCE SEEN IN THIS ED FOR THE SAME C/O. PT STATES THAT SHE MAY BE HAVING A ALLERGIC REACTION TO THE PREDNISONE OR HER NEW PRESCRIPTION FOR LEVADOPA/CARBADOPA. PT STATES THAT SHE HAS AN APPT AT AND WAS WANTING THIS ED TO CALL AND SEE IF SHE COULD BE SEEN EARLIER. Nursing Sepsis Screen: No Definite Risk Source of Information: Patient Exam Limitations: No Limitations History of Present Illness Date Seen by Provider: Jan 27, 2021 Time Seen by Provider: 16:23 Initial Comments Micki is a 70-year-old woman who presented to the emergency room earlier today with complaints of shortness of breath and COPD exacerbation. She was also hyperglycemic. She recently was started on Tresiba insulin therapy. She was only taking 2 units daily. Because she was hyperglycemic earlier she was given 5 units of regular insulin subcutaneously and instructed to take 3 units of Adi iba upon returning home. She was instructed to monitor her blood sugar closely because of steroids administered for the COPD exacerbation. During this visit she is primarily concerned about tremors. These have been a chronic problem and she has been working with her primary care provider to find an appropriate treatment as well as the cause. She has tried Mirapex and gabapentin in the past. She states her providers no longer want her to take gabapentin. Hydrocodone does help her some but that was insufficient today. She did take her Mirapex as well. On arrival her fingerstick blood sugar is undetectably high. She has increased tremors compared with earlier today. She states her last nebulizer treatment which was an hour or 2 ago made her tremors worse. She is recently been started on Sinemet for tremors. She believes the tremors have worsened since starting Sinemet. Allergies and Home Medications Allergies Coded Allergies: No Known Drug Allergies (Unverified , 02/11/14) Home Medications Albuterol Sulfate 1 Puff Puff, 2 PUFF INH Q6H PRN for SHORTNESS OF BREATH, (Reported) Amitriptyline HCl 75 Mg Tablet, 75 MG PO HS, (Reported) Amoxicillin/Potassium Clav 1 Each Tablet, 875 MG PO BID WITH MEALS Prescribed by: HONORIO HAMPTON on 11/17/20 1400 Apixaban 5 Mg Tablet, 5 MG PO BID, (Reported) Celecoxib 200 Mg Capsule, 200 MG PO DAILY, (Reported) Cholecalciferol (Vitamin D3) 25 Mcg Tablet, 25 MCG PO DAILY, (Reported) Cyanocobalamin 1,000 Mcg/Ml Inj, 1,000 MCG IM MONTLY, (Reported) Cyanocobalamin (Vitamin B-12) 1,000 Mcg Tablet, 1,000 MCG PO DAILY, (Reported) Dicyclomine HCl 10 Mg Capsule, 10 MG PO TID PRN for SPASMS, (Reported) Docusate Sodium 100 Mg Capsule, 100 MG PO BID PRN for CONSTIPATION-1ST LINE, (Reported) Estradiol 42.5 Gm Cream.appl, 1 APPLIC VG UD, (Reported) Ferrous Sulfate 325 Mg Tablet, 325 MG PO DAILY, (Reported) Fluconazole 150 Mg Tablet, 150 MG PO MON, (Reported) Glipizide 10 Mg Tablet, 10 MG PO DAILY, (Reported) Hydrochlorothiazide 25 Mg Tablet, 25 MG PO DAILY, (Reported) Hydromorphone HCl 2 Mg Tablet, 2 MG PO Q4H PRN for PAIN-SEVERE (8-10), (Reported) Lactobacillus Combo No.10 1 Each Capsule, 1 CAP PO DAILY, (Reported) Nitrofurantoin Macrocrystal 100 Mg Capsule, 100 MG PO DAILY, (Reported) Pantoprazole Sodium 40 Mg Tablet.dr, 40 MG PO DAILY, (Reported) Polyethylene Glycol 3350 17 Gm Powd.pack, 17 GM PO DAILY PRN for CONSTIPATION- 2ND LINE, (Reported) Pramipexole Di-HCl 1 Mg Tablet, 1 MG PO BID, (Reported) Prednisone 20 Mg Tab, 40 MG PO DAILY Prescribed by: GIOVANNI ROSENBAUM on 01/27/21 0809 Simvastatin 40 Mg Tablet, 40 MG PO DAILY, (Reported) Sitagliptin Phosphate 100 Mg Tablet, 100 MG PO DAILY, (Reported) Triamcinolone Acet 15 Gm Cr, 1 APPLIC TOP TID PRN for RASH, (Reported) Vitamin E 1,000 Unit Capsule, 1,000 UNIT PO DAILY, (Reported) Zolpidem Tartrate 12.5 Mg Tab.mphase, 12.5 MG PO HS, (Reported) Patient Home Medication List Home Medication List Reviewed: Yes Review of Systems Review of Systems Constitutional: no symptoms reported EENTM: no symptoms reported Respiratory: see HPI Cardiovascular: no symptoms reported Gastrointestinal: no symptoms reported Genitourinary: no symptoms reported Musculoskeletal: no symptoms reported Skin: no symptoms reported Psychiatric/Neurological: See HPI Hematologic/Lymphatic: No Symptoms Reported Immunological/Allergic: no symptoms reported Past Sufpowt-Ebxfmt-Rmogiq Hx Past Med/Social Hx: Reviewed and Corrections made Patient Social History Alcohol Use: Occasionally Uses Smoking Status: Never a Smoker 2nd Hand Smoke Exposure: No Recent Infectious Disease Expo: No Recent Hopitalizations: No Immunizations Up To Date Tetanus Booster (TDap): More than 5yrs Date of Pneumonia Vaccine: Apr 15, 2015 Date of Influenza Vaccine: Jun 25, 2020 Seasonal Allergies Seasonal Allergies: No Past Medical History Surgeries: Yes (R knee replaced x2, port, c/s x3, hernia x5, rotator cuff, left wrist) Abdominal, Appendectomy, Hysterectomy, Joint Replacement, Neurological, Orthopedic, Thyroidectomy, Tonsillectomy Respiratory: Yes Asthma, Pneumonia, Chronic Bronchitis, Pulmonary Embolism, Sleep Apnea Currently Using CPAP: Yes Cardiac: Yes High Cholesterol Neurological: Yes (CHIARI MALFORMATION--SURGICAL REPAIR; RESTLESS LEG SYNDROME, Tremors) Reproductive Disorders: No Female Reproductive Disorders: Denies 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 CHRONIC ABDOMINAL PAIN) Chronic Constipation, Chronic Diarrhea Musculoskeletal: Yes Arthritis, Chronic Back Pain Endocrine: Yes (BENIGN MASS LEFT THYROID REMOVED 01/01/2013) Diabetes, Non-Insulin dep HEENT: Yes Cataract Loss of Vision: Denies Hearing Impairment: Denies Cancer: No Psychosocial: Yes Anxiety, Depression Integumentary: No Blood Disorders: No Adverse Reaction/Blood Tranf: No Family Medical History Reviewed Nursing Family Hx Cancer 03 FATHER (PANCREATIC, PASSED AT 65 FROM THIS) Cataract 03 MOTHER Dementia 03 MOTHER Family history: Arthritis 03 MOTHER Family history: Cardiovascular disease 03 MOTHER (HIGH CHOLESTEROL, BALOON ARTERIES 2 TIMES) Hearing loss 03 MOTHER Hypercholesterolemia 03 MOTHER Cancer Physical Exam Vital Signs Vital Signs - First Documented 01/27/21 16:23 Temp 36.8 Pulse 126 Resp 18 B/P (MAP) 209/88 (128) O2 Delivery Room Air Capillary Refill : Less Than 3 Seconds Height, Weight, BMI Height: 5'4.00" Weight: 232lbs. 0.0oz. 105.720685dh; 38.00 BMI Method:Stated General Appearance: WD/WN, Anxious, Mild Distress HEENT: PERRL/EOMI, Normal ENT Inspection Neck: Normal Inspection Respiratory: No Accessory Muscle Use, No Respiratory Distress, Wheezing Cardiovascular: No Edema, No Murmur, Tachycardia Gastrointestinal: Soft; No Distended Extremity: Normal Inspection, No Pedal Edema Neurologic/Psychiatric: Alert, Oriented x3, No Motor/Sensory Deficits, assistant chief train dispatcher II- XII Norm as Tested, Other (Anxious) Skin: Normal Color, Warm/Dry Progress/Results/Core Measures Suspected Sepsis Recent Fever Within 48 Hours: No Infection Criteria Present: None New/Unexplained Altered Menta: No Sepsis Screen: No Definite Risk SIRS Temperature: Pulse: 126 Respiratory Rate: 18 Blood Pressure 209 /88 Mean: 128 Laboratory Tests 01/27/21 17:15: Creatinine 1.38H Results/Orders Lab Results Laboratory Tests Test 01/27/21 17:00 01/27/21 17:15 Range/Units Urine Color YELLOW Urine Clarity CLEAR Urine pH 5.0 5-9 Urine Specific [place] 1.010 L 1.016-1.022 Urine Protein NEGATIVE NEGATIVE Urine Glucose (UA) 3+ H NEGATIVE Urine Ketones 1+ H NEGATIVE Urine Nitrite NEGATIVE NEGATIVE Urine Bilirubin NEGATIVE NEGATIVE Urine Urobilinogen 0.2 < = 1.0 MG/DL Urine Leukocyte Esterase NEGATIVE NEGATIVE Urine RBC (Auto) NEGATIVE NEGATIVE Urine RBC NONE /HPF Urine WBC NONE /HPF Urine Squamous Epithelial Cells 0-2 /HPF Urine Crystals NONE /LPF Urine Bacteria NEGATIVE /HPF Urine Casts NONE /LPF Urine Mucus NEGATIVE /LPF Urine Culture Indicated NO Sodium Level 134 L 135-145 MMOL/L Potassium Level 4.5 3.6-5.0 MMOL/L Chloride Level 96 L 98-107 MMOL/L Carbon Dioxide Level 16 L 21-32 MMOL/L Anion Gap 22 H 5-14 MMOL/L Blood Urea Nitrogen 21 H 7-18 MG/DL Creatinine 1.38 H 0.60-1.30 MG/DL Estimat Glomerular Filtration Rate 38 BUN/Creatinine Ratio 15 Glucose Level 757 *H 70-105 MG/DL Calcium Level 10.3 H 8.5-10.1 MG/DL Magnesium Level 1.9 1.6-2.4 MG/DL Beta-Hydroxybutyrate (Chem panel) 0.37 H 0.00-0.27 MMOL/L My Orders Orders - GIOVANNI SAUCEDA MD Accucheck Stat ONCE (01/27/21 16:23) Lorazepam Injection (Ativan Injection) (01/27/21 17:00) Ed Iv/Invasive Line Start (01/27/21 16:56) Ns Iv 1000 Ml (Sodium Chloride 0.9%) (01/27/21 17:30) Implanted Port: Access (01/27/21 17:17) Insulin (Regular) Human (Novolin R (Per (01/27/21 17:30) Basic Metabolic Panel (01/27/21 17:29) Magnesium (01/27/21 17:29) Beta Hydroxybutyrate (01/27/21 18:33) Medications Given in ED Current Medications Medications Dose Ordered Sig/Eloise Route Start Time Stop Time Status Last Admin Dose Admin Insulin Human Regular 5 unit ONCE ONCE IV 01/27/21 17:30 01/27/21 17:31 DC 01/27/21 17:28 5 UNIT Lorazepam 1 mg ONCE ONCE IVP 01/27/21 17:00 01/27/21 17:01 DC 01/27/21 17:17 1 MG Vital Signs/I&O 01/27/21 16:23 Temp 36.8 Pulse 126 Resp 18 B/P (MAP) 209/88 (128) O2 Delivery Room Air Capillary Refill : Less Than 3 Seconds Blood Pressure Mean: 128 Point of Care Testing Finger Stick Blood Glucose: 600 Blood Glucose Action Taken: PROVIDER NOTIFIED Progress Note : Progress Note Patient was given Ativan 1 mg by IV route after accessing her port for treatment of her tremors and anxiety. Blood sugar read "high" on glucometer. A liter of IV saline and 5 units of IV insulin have been ordered. Departure Impression Primary Impression: COPD exacerbation Additional Impression: Hyperglycemia due to type 2 diabetes mellitus Qualified Codes: E11.65 - Type 2 diabetes mellitus with hyperglycemia Disposition: HOME, SELF-CARE Condition: Improved Admissions Decision to Admit Reason: Admit from ER (General) Decision to Admit/Date: Jan 27, 2021 Time/Decision to Admit Time: 17:18 Departure-Patient Inst. Referrals: SABIHA MAXWELL MD (PCP/Family) Primary Care Physician GIOVANNI SAUCEDA MD Jan 27, 2021 17:42
[2021-01-27 17:47] LABS: CREATININE SERUM 1.38 MG/DL (0.60-1.30)
[2021-01-27 17:49] LABS: MAGNESIUM 1.9 MG/DL (1.6-2.4)
[2021-01-27 18:44] LABS: BILIRUBIN,URINE NEGATIVE (NEGATIVE); CLARITY,URINE CLEAR; COLOR,URINE YELLOW; GLUCOSE, URINE (UA) 3+ (NEGATIVE); KETONES,URINE 1+ (NEGATIVE); LEUKOCYTE ESTERASE ,URINE NEGATIVE (NEGATIVE); NITRITE,URINE NEGATIVE (NEGATIVE); PROTEIN,URINE NEGATIVE (NEGATIVE)
[2021-01-27 19:01] LABS: BACTERIA,URINE NEGATIVE /HPF; SQUAMOUS EPITHELIAL CELL,UR 0-2 /HPF
[2021-01-27] MEDS ORDERED: POTASSIUM CL 10MEQ/50ML IVPB 50 ML IV ONE (19:42)
[2021-01-27] MEDS ORDERED: 1/2 NS IV SOLUTION 1,000 ML IV ONE (19:42)
[2021-01-27] MEDS ORDERED: D5 1/2 NS 1000 ML IV SOLUTION 1,000 ML IV ONE (19:43)
[2021-01-27] MEDS ORDERED: HYDROcodone/APAP 5 MG/325 MG (LORTAB) TAB ONE (20:00)
[2021-01-27 20:18] VITALS: BP 209/88
[2021-01-27] MEDS ORDERED: ONDANSETRON 4 MG/2 ML (SDV) Z0FRAN IVP PRN (20:30)
[2021-01-27] MEDS: HYDROcodone/APAP 5 MG/325 MG (LORTAB) TAB PO PRN (20:35)
[2021-01-27] MEDS: 1/2 NS IV SOLUTION 1,000 ML IV SCH (20:35)
[2021-01-27] MEDS: POTASSIUM CL 10MEQ/50ML IVPB 50 ML IV SCH ×2 (20:36→22:38)
[2021-01-27 20:37] LABS: CALCIUM 9.6 MG/DL (8.5-10.1); CREATININE SERUM 1.15 MG/DL (0.60-1.30); POTASSIUM 4.1 MMOL/L (3.6-5.0)
[2021-01-27] MEDS: APIXABAN 5 MG (ELIQUIS) TABLET PO SCH (20:44)
[2021-01-27] MEDS ORDERED: RT-ALBUTEROL/IPRATROPIUM 3 ML (DUONEB) VIAL INH PRN (20:45)
[2021-01-27] MEDS: RT-ALBUTEROL/IPRATROPIUM 3 ML (DUONEB) VIAL INH SCH (21:04)
[2021-01-27 22:23] LABS: CALCIUM 9.6 MG/DL (8.5-10.1); CREATININE SERUM 1.04 MG/DL (0.60-1.30); POTASSIUM 3.9 MMOL/L (3.6-5.0)
[2021-01-28] MEDS: POTASSIUM CL 10MEQ/50ML IVPB 50 ML IV SCH ×11 (01:46→23:14)
[2021-01-28 02:02] LABS: BASOPHILS % (AUTO) 0 % (0-10); EOSINOPHILS % (AUTO) 0 % (0-10); HEMATOCRIT 38 % (35-52); HEMOGLOBIN 12.7 g/dL (11.5-16.0); LYMPHOCYTES # (AUTO) 1.6 10^3/uL (1.0-4.0); LYMPHOCYTES % (AUTO) 13 % (12-44); MEAN CORPUSCULAR HEMOGLOBIN 29 pg (25-34); MEAN CORPUSCULAR HGB CONC 33 g/dL (32-36); MEAN CORPUSCULAR VOLUME 87 fL (80-99); MEAN PLATELET VOLUME 10.1 fL (9.0-12.2); MONOCYTES # (AUTO) 0.6 10^3/uL (0.0-1.0); MONOCYTES % (AUTO) 5 % (0-12); NEUTROPHILS # (AUTO) 9.9 10^3/uL (1.8-7.8); NEUTROPHILS % (AUTO) 81 % (42-75); PLATELET COUNT 232 10^3/uL (130-400); WHITE BLOOD COUNT 12.2 10^3/uL (4.3-11.0)
[2021-01-28 03:04] LABS: CHLORIDE 100 MMOL/L (98-107); POTASSIUM 3.9 MMOL/L (3.6-5.0); SODIUM 136 MMOL/L (135-145)
[2021-01-28 03:05] LABS: CALCIUM 9.4 MG/DL (8.5-10.1)
[2021-01-28] MEDS: D5 1/2 NS 1000 ML IV SOLUTION 1,000 ML IV SCH ×5 (03:05→21:50)
[2021-01-28 03:06] LABS: GLUCOSE 283 MG/DL (70-105)
[2021-01-28 03:07] LABS: CARBON DIOXIDE 20 MMOL/L (21-32)
[2021-01-28 03:09] LABS: PHOSPHORUS 2.9 MG/DL (2.3-4.7)
[2021-01-28 03:10] LABS: BUN/CREATININE RATIO 19; CREATININE SERUM 0.86 MG/DL (0.60-1.30); GFR ESTIMATED > 60
[2021-01-28 03:12] LABS: MAGNESIUM 1.9 MG/DL (1.6-2.4)
[2021-01-28] MEDS: 1/2 NS IV SOLUTION 1,000 ML IV SCH ×6 (05:05→19:40)
[2021-01-28] MEDS: HYDROcodone/APAP 5 MG/325 MG (LORTAB) TAB PO PRN ×2 (05:49)
[2021-01-28] MEDS: predniSONE 20 MG TAB PO SCH (06:07)
[2021-01-28] MEDS: RT-ALBUTEROL/IPRATROPIUM 3 ML (DUONEB) VIAL INH SCH ×2 (07:00→18:19)
[2021-01-28] MEDS: APIXABAN 5 MG (ELIQUIS) TABLET PO SCH ×2 (07:37→20:25)
[2021-01-28] MEDS ORDERED: TRIAMCINOLONE 0.1% CR (KENALOG) 15 GM TUBE TOP PRN (09:15)
[2021-01-28] MEDS ORDERED: DOCUSATE SODIUM 100 MG (COLACE) CAP PO PRN (09:15)
[2021-01-28] MEDS ORDERED: ESTRADIOL VAGINAL CREAM 42.5 GM (ESTRACE) VG SCH (09:15)
[2021-01-28] MEDS ORDERED: NON-FORMULARY MEDICATION 1 EA EA (Pramipexole Di-HCl (Pramipexole Dihydrochloride) 1 MG) PO SCH (09:15)
--- NOTE | 2021-01-28 09:28 | History & Physical-Hospitalist ---
History of Present Illness HPI/Chief Complaint Pt is a 70yoCF who presented to the ER due to elevated blood sugars and shortness of breath. SHe reports that she was recently started on insulin and had bene doing well with t hat but yesterday was seen in the ER for a week long history of a cough. She was started on steroids in the ER and discharged home yesterdya morning. Her breathing remained about the same but her blood sugars was very high so she returned. She was found to be in DKA. This morning she states she is still not feeling well but the symptoms now are mostly due to her rest less leg syndrome. She has an appointment with [facility] neurology later this month but was told by her PCP that her tremors are from COVID. Her only concern is restarting her home medicines and her oxygen being set at 2lpm instead of 3lpm. I informed her that her sats were 98% on 2lpm and we could really titrate down further but she does not feel comfortable with this. Date Seen 01/28/21 Time Seen by a Provider: 09:18 Attending Physician Honorio Mckenzie MD PCP Shadi Campos MD Referring Physician Date of Admission Jan 27, 2021 at 18:35 Home Medications & Allergies Home Medications Reviewed patient Home Medication Reconciliation performed by pharmacy medication reconciliations process technician and/or nursing. Patients Allergies have been reviewed. Allergies Allergies Coded Allergies No Known Drug Allergies (Unverified02/11/14) Past Jkdbura-Cffzow-Nsfvcf Hx Patient Social History Marrital Status: Tobacco Use?: No Smoking Status: Never a Smoker Use of E-Cig and/or Vaping dev: No Substance use?: No Alcohol Use?: Yes Alcohol type: Hard Liquor Alcohol Frequency: Once in a while Pt feels they are or have been: No Immunizations Up To Date Date of Influenza Vaccine: Jun 25, 2020 Tetanus Booster (TDap): Unknown Hepatitis A: No Hepatitis B: No Date of Pneumonia Vaccine: Apr 15, 2015 Seasonal Allergies Seasonal Allergies: No Current Status status: No status: No Advance Directives: Yes Advance Directive Location: Home Communicates: Verbally Primary Language: Kazakh Preferred Spoken Language: Kazakh Is interpretation needed?: No Implanted or Applied Medical D: Orthopedic hardware, Port-a-cath Past Medical History Surgeries: Abdominal, Appendectomy, Hysterectomy, Joint Replacement, Neurological, Orthopedic, Thyroidectomy, Tonsillectomy Asthma, Pneumonia, Chronic Bronchitis (post covid), Pulmonary Embolism, Sleep Apnea Currently Using CPAP: Yes 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 Sexually Transmitted Disease: No HIV/AIDS: No Bladder Infection Chronic Constipation, Chronic Diarrhea Arthritis, Chronic Back Pain Diabetes, Non-Insulin dep Cataract Loss of Vision: Denies Hearing Impairment: Denies Anxiety, Depression Blood Disorders: No Adverse Reaction/Blood Tranf: No Family Medical History Reviewed Nursing Family Hx Cancer 03 FATHER (PANCREATIC, PASSED AT 65 FROM THIS) Cataract 03 MOTHER Dementia 03 MOTHER Family history: Arthritis 03 MOTHER Family history: Cardiovascular disease 03 MOTHER (HIGH CHOLESTEROL, BAL[place]ON ARTERIES 2 TIMES) Hearing loss 03 MOTHER Hypercholesterolemia 03 MOTHER Cancer Review of Systems Constitutional: No chills, No fever Respiratory: cough, short of breath Cardiovascular: No chest pain, No edema, No palpitations Gastrointestinal: No abdominal pain, No constipation, No diarrhea, No nausea, No vomiting Genitourinary: no symptoms reported Musculoskeletal: muscle twitching Skin: no symptoms reported Psychiatric/Neurological: Anxiety, Tremors Physical Exam Physical Exam Vital Signs Vital Signs - First Documented 01/27/21 01/27/21 16:23 18:54 Temp 36.8 Pulse 126 Resp 18 B/P (MAP) 209/88 (128) Pulse Ox 100 O2 Delivery Room Air O2 Flow Rate 3.00 Capillary Refill : Less Than 3 Seconds Height, Weight, BMI Height: 5'4.00" Weight: 232lbs. 0.0oz. 105.591680zr; 39.61 BMI Method:Stated General Appearance: No Apparent Distress, WD/WN, Obese HEENT: PERRL/EOMI, Moist Mucous Membranes Respiratory: Lungs Clear, No Accessory Muscle Use, No Respiratory Distress Cardiovascular: Regular Rate, Rhythm, No Murmur Gastrointestinal: Normal Bowel Sounds, Non Tender, Soft Results Results/Procedures Labs Laboratory Tests 01/27/21 17:15 01/27/21 19:40 01/27/21 21:55 01/28/21 01:49 01/28/21 09:46 Patient resulted labs reviewed. Imaging: Reviewed Imaging Report Imaging [facility] [place], [place] NAME: ANA LUJAN [facility] REC#: [id number] PT STATUS: DEP ER : 1950 PHYSICIAN: GIOVANNI SAUCEDA MD ADMIT DATE: 01/27/21/ER Signed Date of Exam:01/27/21 CHEST PA/LAT (2 VIEW) Indication: Dyspnea with cough and congestion. Comparison: Multiple exams to 04/19/2020. Discussion: Two views of the chest were obtained. Right-sided port is stable. Stable normal heart size. Eventration of the hemidiaphragms is stable. Mild interstitial thickening appears chronic. No superimposed new consolidation identified. No pleural fluid or pneumothorax. No osseous abnormality. Impression: 1. Stable changes of chronic lung disease. Dictated by: Dictated on workstation # [id number] Dict: 01/27/21 0748 Trans: 01/27/21 1528 [facility] [id number] Interpreted by: FITO MERRILL MD Electronically signed by: FITO MERRILL MD 01/27/21 1528 Assessment/Plan Admission Diagnosis DKA, mild IDDMII BS over 700 on arrival with gap and acidosis Beta hydroxybutrate mildly elevated Doing better now on gtt Labs at 930, hopefully will be able to switch to bolus insulin pending those results A1c ordered COPD, post covid syndrome Chronic respiratory failure Continue home oxygen, patinet declines titration MAT protocol Continue steroids HTN Well controlled, continue home meds Chronic pain restless leg syndrome Continue home meds Was requesting hydrocodone 10/325 but Obinna's fills 7.5/325 so will restart that DVT ppx: On Eliquis already Admission Status: Inpatient Order (span 2 midnights) Reason for Inpatient Admission: see above Diagnosis/Problems Diagnosis/Problems (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
[2021-01-28] MEDS: HYDROcodone/APAP 7.5 MG/325 MG (LORTAB, LORCET PLUS) TABLET PO PRN ×4 (09:54→21:54)
[2021-01-28 10:06] LABS: CHLORIDE 102 MMOL/L (98-107); SODIUM 137 MMOL/L (135-145)
[2021-01-28 10:08] LABS: GLUCOSE 215 MG/DL (70-105)
[2021-01-28 10:09] LABS: CARBON DIOXIDE 22 MMOL/L (21-32)
[2021-01-28 10:11] LABS: CREATININE SERUM 0.77 MG/DL (0.60-1.30); GFR ESTIMATED > 60
[2021-01-28 10:12] LABS: BUN/CREATININE RATIO 16
[2021-01-28] MEDS: inSUlin ASPART (NovoLOG) 1 UNIT/0.01 ML (CHARGE PER UNIT) SC SCH ×3 (11:04→19:29)
[2021-01-28] MEDS ORDERED: POTASSIUM CL 10MEQ/50ML IVPB 50 ML IV SCH (13:00)
[2021-01-28 15:57] LABS: CHLORIDE 103 MMOL/L (98-107); POTASSIUM 4.5 MMOL/L (3.6-5.0); SODIUM 137 MMOL/L (135-145)
[2021-01-28 15:59] LABS: CALCIUM 8.9 MG/DL (8.5-10.1); GLUCOSE 232 MG/DL (70-105)
[2021-01-28 16:01] LABS: CARBON DIOXIDE 22 MMOL/L (21-32)
[2021-01-28 16:03] LABS: CREATININE SERUM 0.85 MG/DL (0.60-1.30); GFR ESTIMATED > 60
[2021-01-28 16:04] LABS: BUN/CREATININE RATIO 15
[2021-01-28] MEDS: PRAMIPEXOLE 0.5 MG TAB (MIRAPEX) PO SCH (20:25)
[2021-01-28] MEDS ORDERED: NON-FORMULARY MEDICATION 1 EA EA (Amitriptyline HCl 75 MG) PO SCH (21:00)
[2021-01-28] MEDS ORDERED: APIXABAN 5 MG (ELIQUIS) TABLET PO SCH (21:00)
[2021-01-28] MEDS ORDERED: AMITRIPTYLINE 150 MG (ELAVIL) TABLET PO SCH (21:00)
[2021-01-29] MEDS: 1/2 NS IV SOLUTION 1,000 ML IV SCH ×4 (01:06→10:33)
[2021-01-29] MEDS: POTASSIUM CL 10MEQ/50ML IVPB 50 ML IV SCH ×5 (01:24→10:39)
[2021-01-29] MEDS: HYDROcodone/APAP 7.5 MG/325 MG (LORTAB, LORCET PLUS) TABLET PO PRN ×4 (01:57→21:14)
[2021-01-29] MEDS: D5 1/2 NS 1000 ML IV SOLUTION 1,000 ML IV SCH ×2 (01:57→06:05)
[2021-01-29 04:02] LABS: BASOPHILS % (AUTO) 0 % (0-10); EOSINOPHILS # (AUTO) 0.1 10^3/uL (0.0-0.3); EOSINOPHILS % (AUTO) 1 % (0-10); HEMATOCRIT 39 % (35-52); HEMOGLOBIN 12.6 g/dL (11.5-16.0); LYMPHOCYTES # (AUTO) 2.2 10^3/uL (1.0-4.0); LYMPHOCYTES % (AUTO) 21 % (12-44); MEAN CORPUSCULAR HEMOGLOBIN 29 pg (25-34); MEAN CORPUSCULAR HGB CONC 32 g/dL (32-36); MEAN CORPUSCULAR VOLUME 89 fL (80-99); MONOCYTES # (AUTO) 0.6 10^3/uL (0.0-1.0); MONOCYTES % (AUTO) 5 % (0-12); NEUTROPHILS # (AUTO) 7.7 10^3/uL (1.8-7.8); NEUTROPHILS % (AUTO) 72 % (42-75); PLATELET COUNT 205 10^3/uL (130-400); WHITE BLOOD COUNT 10.7 10^3/uL (4.3-11.0)
[2021-01-29 04:15] LABS: CHLORIDE 106 MMOL/L (98-107); POTASSIUM 4.2 MMOL/L (3.6-5.0); SODIUM 140 MMOL/L (135-145)
[2021-01-29 04:16] LABS: CALCIUM 8.9 MG/DL (8.5-10.1); GLUCOSE 138 MG/DL (70-105)
[2021-01-29 04:18] LABS: CARBON DIOXIDE 24 MMOL/L (21-32)
[2021-01-29 04:20] LABS: CREATININE SERUM 0.77 MG/DL (0.60-1.30); GFR ESTIMATED > 60; PHOSPHORUS 3.2 MG/DL (2.3-4.7)
[2021-01-29 04:21] LABS: BUN/CREATININE RATIO 17
[2021-01-29 04:23] LABS: MAGNESIUM 1.9 MG/DL (1.6-2.4)
[2021-01-29] MEDS: inSUlin ASPART (NovoLOG) 1 UNIT/0.01 ML (CHARGE PER UNIT) SC SCH ×6 (05:23→21:39)
[2021-01-29] MEDS: predniSONE 20 MG TAB PO SCH (06:04)
[2021-01-29] MEDS: RT-ALBUTEROL/IPRATROPIUM 3 ML (DUONEB) VIAL INH SCH ×2 (06:14→22:33)
[2021-01-29] MEDS ORDERED: fluCOnazole (DIFLUCAN) 100 MG TAB PO SCH (08:00)
[2021-01-29] MEDS: PANTOPRAZOLE 40 MG (PROTONIX) TAB PO SCH (08:05)
[2021-01-29] MEDS: CYANOCOBALAMIN 1,000 MCG (VITAMIN B-12) TABLET PO SCH (08:05)
[2021-01-29] MEDS: PRAMIPEXOLE 0.5 MG TAB (MIRAPEX) PO SCH ×2 (08:05→20:20)
[2021-01-29] MEDS: SIMvastatin 40 MG (ZOCOR) TAB PO SCH (08:05)
[2021-01-29] MEDS: APIXABAN 5 MG (ELIQUIS) TABLET PO SCH ×2 (08:06→20:20)
[2021-01-29] MEDS ORDERED: FLUCONAZOLE 150 MG TABLET (ED ONLY) PO SCH (09:00)
--- NOTE | 2021-01-29 09:14 | Pulmonary Progress Note ---
Subjective Date Seen by a Provider: Jan 29, 2021 Time Seen by a Provider: 09:13 Sepsis Event Evaluation Height, Weight, BMI Height: 5'4.00" Weight: 232lbs. 0.0oz. 105.692526mm; 39.61 BMI Method:Stated Exam Exam Vital Signs Date Time Temp Pulse Resp B/P (MAP) Pulse Ox O2 Delivery O2 Flow Rate FiO2 01/29/21 08:00 98 Nasal Cannula 3.00 01/29/21 08:00 87 16 121/62 (81) 98 Nasal Cannula 3.00 01/29/21 07:59 36.4 01/29/21 07:00 113/88 (96) 94 Nasal Cannula 3.00 01/29/21 06:16 97 Nasal Cannula 3.00 01/29/21 06:00 81 16 141/74 (87) 96 Nasal Cannula 3.00 01/29/21 05:00 64 15 140/75 (95) 96 Nasal Cannula 3.00 01/29/21 04:00 64 14 118/79 (94) 96 Nasal Cannula 3.00 01/29/21 03:59 36.5 01/29/21 03:56 96 Nasal Cannula 3.00 01/29/21 03:00 63 15 129/80 (97) 96 Nasal Cannula 3.00 01/29/21 02:00 69 17 128/63 (78) 97 Nasal Cannula 3.00 01/29/21 01:00 76 01/29/21 01:00 76 28 126/70 (88) 96 Nasal Cannula 3.00 01/29/21 00:10 96 Nasal Cannula 3.00 01/29/21 00:00 70 14 125/100 (108) 97 Nasal Cannula 3.00 01/29/21 00:00 36.6 01/28/21 23:00 68 15 144/71 (95) 96 Nasal Cannula 3.00 01/28/21 22:00 73 24 158/75 (104) 96 Nasal Cannula 3.00 01/28/21 21:00 75 19 120/80 (94) 97 Nasal Cannula 3.00 01/28/21 20:00 82 24 128/59 (79) 97 Nasal Cannula 3.00 01/28/21 20:00 96 Nasal Cannula 3.00 01/28/21 19:48 Nasal Cannula 3.00 01/28/21 19:39 36.5 01/28/21 19:00 80 01/28/21 19:00 80 26 147/80 (97) 95 Nasal Cannula 2.00 01/28/21 18:19 98 Nasal Cannula 2.00 01/28/21 18:00 72 27 135/70 (91) 96 Nasal Cannula 2.00 01/28/21 17:00 74 22 149/82 (104) 97 Nasal Cannula 2.00 01/28/21 16:57 36.4 01/28/21 16:36 95 Nasal Cannula 2.00 01/28/21 16:00 69 15 150/71 (97) 96 Nasal Cannula 2.00 01/28/21 15:00 76 17 144/68 (96) 92 Nasal Cannula 2.00 01/28/21 14:00 84 19 140/66 (100) 88 Nasal Cannula 2.00 01/28/21 13:00 78 21 127/68 (87) 96 Nasal Cannula 2.00 01/28/21 12:37 88 01/28/21 12:00 86 18 129/65 (86) 96 Nasal Cannula 2.00 01/28/21 11:54 36.0 01/28/21 11:13 96 Nasal Cannula 2.00 01/28/21 11:00 87 17 117/55 (75) 96 Nasal Cannula 2.00 01/28/21 10:00 80 19 157/76 (96) 95 Nasal Cannula 2.00 01/28/21 09:00 75 20 135/73 (84) 97 Nasal Cannula 2.00 I & O 01/29/21 07:00 Intake Total 6970 ml Output Total 7800 ml Balance -830 ml Height & Weight Height: 5'4.00" Weight: 232lbs. 0.0oz. 105.406228os; 39.61 BMI Method:Stated General Appearance: No Apparent Distress, WD/WN, Obese HEENT: PERRL/EOMI, Moist Mucous Membranes Neck: Normal Inspection Respiratory: Lungs Clear, No Accessory Muscle Use, No Respiratory Distress Cardiovascular: Regular Rate, Rhythm, No Murmur Capillary Refill: Less Than 3 Seconds Extremity: Normal Inspection, No Pedal Edema Neurologic/Psychiatric: Alert, Oriented x3, No Motor/Sensory Deficits, questioned documents examiner II- XII Norm as Tested, Other (Anxious) Skin: Normal Color, Warm/Dry Results Lab Laboratory Tests 01/27/21 17:15 01/27/21 19:40 01/27/21 21:55 01/28/21 01:49 01/28/21 09:46 01/28/21 15:30 01/29/21 03:55 Assessment/Plan Assessment/Plan Available chart/ vitals / labs / Images reviewed Video assessment done using teleICU camera Discussed with RN Events overnight : Afebrile hemodynamically stable, no pressors, I/O = ranjeet 300 Drips: insulin Consultants: Hospital course: admitted with DKA A/P DKA - improving , starting on long acting insulin , goal off gtt today COPD 05/2020, post covid syndrome Chronic respiratory failure - 3L home oxygen, patinet declines titration as per Rn report - on steroids as per bedside MD - prednison 40 - ? to titrate down H/o PE - on eliquis - to cont GRACE - on CPAP = to cont chiari malformation s/p surgical repeair RLS - worsening tremors since initiated carpidopa/levodopa as per report Lines : R side PORT Nutrition: po DVT proph: Eliquis Plans in collaboration with bedside consultants and IM MDs. Discussed with RN to reach out if any questions or concerns A total of 20 minutes of critical care time was devoted to this patient today, required to treat and/or prevent further deterioration of critical care condition ( as above ) . JOSHUA NORTON MD Jan 29, 2021 09:13
[2021-01-29] MEDS ORDERED: GABAPENTIN 100 MG (NEURONTIN) CAP PO NR (11:27)
[2021-01-29] MEDS ORDERED: HYDR-87 PO (11:27)
[2021-01-29] MEDS ORDERED: CARB1TAB19 PO (11:27)
--- NOTE | 2021-01-29 11:27 | Progress Note - Hospitalist ---
Subjective HPI/CC On Admission Date Seen by Provider: Jan 29, 2021 Time Seen by Provider: 08:50 Pt is a 70yoCF who presented to the ER due to elevated blood sugars and shortness of breath. SHe reports that she was recently started on insulin and had bene doing well with t hat but yesterday was seen in the ER for a week long history of a cough. She was started on steroids in the ER and discharged home yesterdya morning. Her breathing remained about the same but her blood sugars was very high so she returned. She was found to be in DKA. This morning she states she is still not feeling well but the symptoms now are mostly due to her rest less leg syndrome. She has an appointment with [facility] neurology later this month but was told by her PCP that her tremors are from COVID. Her only concern is restarting her home medicines and her oxygen being set at 2lpm instead of 3lpm. I informed her that her sats were 98% on 2lpm and we could really titrate down further but she does not feel comfortable with this. Subjective/Events-last exam She reports bilateral leg numbness and tingling. She says that comes up her legs and her goes into her arms and hands. She says this was been going on for several weeks. She reports that she has not been sleeping well at night. She has no other complaints or concerns. Objective Exam Vital Signs Vital Signs Date Time Temp Pulse Resp B/P (MAP) Pulse Ox O2 Delivery O2 Flow Rate FiO2 01/29/21 08:00 98 Nasal Cannula 3.00 01/29/21 08:00 87 16 121/62 (81) 01/29/21 07:59 36.4 Capillary Refill : Less Than 3 Seconds General Appearance: No Apparent Distress, Obese HEENT: PERRL/EOMI, Pharynx Normal Neck: Normal Inspection, Supple Respiratory: Lungs Clear, Normal Breath Sounds, No Respiratory Distress Cardiovascular: Regular Rate, Rhythm, No Murmur Gastrointestinal: Normal Bowel Sounds, Non Tender, Soft Extremity: Normal Inspection, Non Tender, Pedal Edema Neurologic/Psychiatric: Alert, Oriented x3, No Motor/Sensory Deficits, Normal Mood/Affect Skin: Normal Color, Warm/Dry Results/Procedures Lab Laboratory Tests 01/28/21 15:30 01/29/21 03:55 Patient resulted labs reviewed. Imaging: Reviewed Imaging Report Assessment/Plan Assessment and Plan Assess & Plan/Chief Complaint T2DM with ketoacidosis Insulin gtt Begin Levemir 20 units twice daily Transition off insulin gtt at noon Begin Novolog 6 units with meals Sliding scale insulin COPD, post covid syndrome Chronic respiratory failure Continue home oxygen MAT protocol Continue steroids HTN Well controlled, continue home meds Chronic pain restless leg syndrome Continue home meds Begin low-dose gabapentin Begin low-dose Xanax DVT ppx: already receiving therapeutic anticoagulation Diagnosis/Problems Diagnosis/Problems (1) T2DM (type 2 diabetes mellitus) Status: Acute Qualifiers: Diabetes mellitus rn long term care insulin use: without nursing home use Diabetes mellitus complication status: with ketoacidosis Diabetes mellitus complication detail: without coma Qualified Codes: E11.10 - Type 2 diabetes mellitus with ketoacidosis without coma (2) Diabetic neuropathy Status: Acute Qualifiers: Diabetes mellitus type: type 2 Diabetes mellitus complication detail: diabetic polyneuropathy Qualified Codes: E11.42 - Type 2 diabetes mellitus with diabetic polyneuropathy DANICA HERRING MD Jan 29, 2021 11:27
[2021-01-29] MEDS ORDERED: ASCO-262 PO (11:30)
[2021-01-29] MEDS ORDERED: PRD20T PO (11:40)
[2021-01-29] MEDS ORDERED: inSUlin ASPART (NovoLOG) 1 UNIT/0.01 ML (CHARGE PER UNIT) SC SCH (12:00)
[2021-01-29] MEDS: polyethylene glycoL POWDER 17 GM (MIRALAX) PACK PO PRN (13:35)
[2021-01-29] MEDS ORDERED: INSU100I32 SQ (13:51)
--- NOTE | 2021-01-29 14:08 | Physical Therapy Evaluation ---
PT Evaluation-General Medical Diagnosis Admission Date Jan 27, 2021 at 18:35 Medical Diagnosis: DKA/COPD exacerbation Onset Date: Jan 27, 2021 Therapy Diagnosis Therapy Diagnosis: debility Height/Weight Height (Feet): 5 Height (Inches): 4.00 Weight (Pounds): 232 Weight (Ounces): 0.0 Precautions Precautions/Isolations: Fall Prevention, Standard Precautions Referral Physician: Otilia Reason for Referral: Evaluation/Treatment Medical History Pertinent Medical History: COPD, DM, HTN Additional Medical History Covid x 2 Current History ER with c/o SOA Reviewed History: Yes Social History Home: Single Level Current Living Status: Spouse Prior Prior Level of Function SCALE: Activities may be completed with or without assistive devices. 6-Wuvruncrty-yufkchs completes the activity by him/herself with no assistance from a helper. 5-Set-up or Clean-up Assistance-helper sets up or cleans up; patient completes activity. [place] assists only prior to or following the activity. 4-Supervision or Touching Assistance-helper provides verbal cues and/or touching/steadying and/or contact guard assistance as patient completes activity. Assistance may be provided throughout the activity or intermittently. 3-Partial/Moderate Assistance-helper does LESS THAN HALF the effort. [place] lifts, holds or supports trunk or limbs, but provides less than half the effort. 2-Substantial/Maximal Assistance-helper does MORE THAN HALF the effort. [place] lifts or holds trunk or limbs and provides more than half the effort. 2-Lsffaubcq-yjaxpr does ALL the effort. Patient does none of the effort to complete the activity. Or, the assistance of 2 or more helpers is required for the patient to complete the activity. If activity was not attempted, code reason: 7-Patient Refused. 9-Not Applicable-not attempted and the patient did not perform the activity before the current illness, exacerbation or injury. 10-Not Attempted due to Environmental Limitations-(lack of equipment, weather restraints, etc.). 88-Not Attempted due to Medical Conditions or Safety Concerns. Bed Mobility: 6 Transfers (B,C,W/C): 6 Gait: 6 Stairs: 6 Indoor Mobility (Ambulation): Independent Stairs: Independent Prior Devices Use: None patient reports her spouse will not allow her to use a FWW for energy conservation or safety PT Evaluation-Current Subjective Patient agrees to PT. Objective Patient Orientation: Normal For Age Attachments: Oxygen, Veloz Catheter ROM/Strength ROM Lower Extremities bilateral LE WFL Strength Lower Extremities 4/5 grossly bilateral LE Integumentary/Posture Bowel Incontinence: No Bladder Incontinence: Veloz Cath Posture WFL Neuromuscular (Tone, Coordination, Reflexes) grossly intact Sensory Vision: Functional Hearing: Functional Transfers Roll Left to Right (QC): 6 Sit to Lying (QC): 6 Lying to Sitting/Side of Bed(Q: 6 Sit to Stand (QC): 4 Toilet Transfer (QC): 4 Gait Does the Patient Walk?: Yes Mode of Locomotion: Walk Anticipated Mode of Locomotion: Walk Walk 10 feet (QC): 4 (SBA) Walk 50 ft with 2 Turns(QC): 4 (SBA) Walk 150 ft (QC): 4 (SBA) Distance: 250' Gait Assistive Device: FWW Comments/Gait Description slow, steady Wheelchair Training Does the Pt Use a Wheelchair?: No Balance Sitting Static: Normal Sitting Dynamic: Normal Standing Static: Good Standing Dynamic: Good Picking up an Object (QC): 6 Assessment/Needs 70 y.o. female,will be seen short term by skilled PT to address functional mobility to ensure safe return to home at maximum LOF. Rehab Potential: Fair PT Short Term Goals Short Term Goals Time Frame: Feb 03, 2021 Roll Left & Right: 6 Sit to lyin Lying to sitting on side of be: 6 Sit to stand: 6 Chair/zyy-fk-tequy transfer: 6 Toilet transfer: 6 Walk 10 feet: 6 Walk 50 feet with two turns: 6 Walk 150 feet: 6 PT Plan Problem List Problem List: Activity Tolerance Treatment/Plan Treatment Plan: Continue Plan of Care Treatment Plan: Education, Functional Activity Rea, Functional Strength, Gait, Safety, Therapeutic Exercise, Transfers Treatment Duration: Feb 03, 2021 Frequency: 5 times per week Estimated Hrs Per Day: .25 hour per day Patient and/or Family Agrees t: Yes Discharge Recommendations Therapy Discharge Recommendati: Home & Family Time/GCodes Time In: 1330 Time Out: 1350 Total Billed Treatment Time: 20 Total Billed Treatment 1 visit EVModC 20 min BENJAMIN BARNARD PT Jan 29, 2021 14:08
[2021-01-29] MEDS: ALPRAZolam 0.25 MG (XANAX) TAB PO SCH ×2 (14:46→21:14)
--- NOTE | 2021-01-29 14:57 | Occupational Therapy Eval ---
OT Evaluation-General/PLF Medical Diagnosis Admission Date Jan 27, 2021 at 18:35 Medical Diagnosis: DKA/COPD exacerbation Onset Date: Jan 27, 2021 Therapy Diagnosis Therapy Diagnosis: Weakness Height/Weight Height (Feet): 5 Height (Inches): 4.00 Weight (Pounds): 232 Weight (Ounces): 0.0 Precautions Precautions/Isolations: Fall Prevention, Standard Precautions Weight Bear Status Weight Bearing Restriction: Weight Bearing/Tolerated Referral Physician: Otilia Referral Reason: Activity Tolerance, Self Care, Evaluation/Treatment, Strengthening/ROM Medical History Pertinent Medical History: COPD, DM, HTN Additional Medical History Left wrist fx with plates/screws, joint replacement, chronic bronchitis post COVID, Pulmonary embolism Reviewed History: Yes Social History Home: Single Level Current Living Status: Spouse Entry Into Home: Stairs With Railing Steps Into Home: 1 ADL-Prior Level of Function SCALE: Activities may be completed with or without assistive devices. 1-Ucjeqkiqpk-tegidvd completes the activity by him/herself with no assistance from a helper. 5-Set-up or Clean-up Assistance-helper sets up or cleans up; patient completes activity. [place] assists only prior to or following the activity. 4-Supervision or Touching Assistance-helper provides verbal cues and/or touching/steadying and/or contact guard assistance as patient completes activity. Assistance may be provided throughout the activity or intermittently. 3-Partial/Moderate Assistance-helper does LESS THAN HALF the effort. [place] lifts, holds or supports trunk or limbs, but provides less than half the effort. 2-Substantial/Maximal Assistance-helper does MORE THAN HALF the effort. [place] lifts or holds trunk or limbs and provides more than half the effort. 6-Fszlvxujo-vvmzul does ALL the effort. Patient does none of the effort to complete the activity. Or, the assistance of 2 or more helpers is required for the patient to complete the activity. If activity was not attempted, code reason: 7-Patient Refused. 9-Not Applicable-not attempted and the patient did not perform the activity before the current illness, exacerbation or injury. 10-Not Attempted due to Environmental Limitations-(lack of equipment, weather restraints, etc.). 88-Not Attempted due to Medical Conditions or Safety Concerns. ADL PLOF Comments Pt. states that her spouse is usually present when she showers, but she bathes herself, and dresses herself. She has a walker, but does not use is. She does use oxygen at home. Pt. states that she just started driving again, but is fearful to do it. She had a wrist surgery that makes her wrist weak and difficult to turn the wheel. She eats out a lot with her spouse. 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 does not report pain, but reports having significant tremors that have started since having COVID. Mental Status/Objective Patient Orientation: Person, Place, Time, Situation Attachments: Veloz Catheter, Oxygen Current Upper Extremity ROM WFL at shoulder level. WFL at elbow level. Limited at left wrist level. ADL-Treatment Eating (QC): 6 On/Off Footwear (QC): 4 (Per clinical judgement.) Toileting Hygiene (QC): 2 (Per clinical judgement due to lines and tubing in ICU setting.) Other Treatments Pt. transfers supine-sit with Mod I. Stands with min assist without walker, as she needs to get to BSC quickly. OT assists her to BSC with min assist. OT pulls down brief due to lines and tubing. Pt. able to transfer to BSC. Pt. reports to this therapist her concern about tremors, that start and stop at different times. While OT in room, witnessed pt's left LE shaking vigorously in bed. Pt. states that sometimes they become whole body. Pt. up on Commode with call light when OT left room. All needs met. Education OT Patient Education: Correct positioning, Modified ADL techniques, Progress toward Goal/Update tx plan, Purpose of tx/functional activities, Reviewed precautions, Rehab process, Transfer techniques Teaching Recipient: Patient Teaching Methods: Demonstration, Discussion Response to Teaching: Verbalize Understanding, Return Demonstration OT Longterm Goals Longterm Goals Time Frame: Feb 12, 2021 Eating (QC): 6 Oral Hygiene (QC): 6 Toileting Hygiene (QC): 6 Shower/Bathe Self (QC): 4 Upper Body Dressing (QC): 6 Lower Body Dressing (QC): 4 On/Off Footwear (QC): 6 Additional Goals: 1-Demonstrate ADL Tasks, 2-Verbalize Understanding, 3- ImproveStrength/Rea 1=Demonstrate adherence to instructed precautions during ADL tasks. 2=Patient will verbalize/demonstrate understanding of assistive devices/modifications for ADL. 3=Patient will improve strength/tolerance for activity to enable patient to perform ADL's. OT Education/Plan Problem List/Assessment Assessment: Decreased Activ Tolerance, Dependent Transfers, Impaired I ADL's, Impaired Self-Care Skills Discharge Recommendations Plan/Recommendations: Continue POC Treatment Plan/Plan of Care Treatment,Training & Education: Yes Patient would benefit from OT for education, treatment and training to promote independence in ADL's, mobility, safety and/or upper extremity function for ADL's. Plan of Care: ADL Retraining, Functional Mobility, UE Funct Exercise/Act Treatment Duration: Feb 12, 2021 Frequency: 5 times per week Estimated Hrs Per Day: .25 hour per day Agreement: Yes Rehab Potential: Fair Time/GCodes Start Time: 13:50 Stop Time: 14:30 Total Time Billed (hr/min): 40 Billed Treatment Time 1, EVM x 15minutes, ADL x 25minutes HUSSEIN NICHOLAS OT Jan 29, 2021 14:57
[2021-01-29] MEDS ORDERED: guaiFENesin/DM (ROBITUSSIN DM) 10 ML UDC PO PRN (16:15)
[2021-01-29] MEDS: GABAPENTIN 100 MG (NEURONTIN) CAP PO SCH (20:19)
[2021-01-29] MEDS ORDERED: AMITRIPTYLINE 25 MG (ELAVIL) TAB PO SCH (21:00)
[2021-01-29] MEDS ORDERED: AMITRIPTYLINE 50 MG (ELAVIL) TAB PO SCH (21:00)
[2021-01-29] MEDS ORDERED: GABAPENTIN 300 MG (NEURONTIN) CAP PO SCH (21:00)
[2021-01-30 04:52] LABS: BASOPHILS % (AUTO) 0 % (0-10); EOSINOPHILS # (AUTO) 0.2 10^3/uL (0.0-0.3); EOSINOPHILS % (AUTO) 1 % (0-10); HEMATOCRIT 41 % (35-52); HEMOGLOBIN 13.1 g/dL (11.5-16.0); LYMPHOCYTES # (AUTO) 2.7 10^3/uL (1.0-4.0); LYMPHOCYTES % (AUTO) 24 % (12-44); MEAN CORPUSCULAR HEMOGLOBIN 29 pg (25-34); MEAN CORPUSCULAR HGB CONC 32 g/dL (32-36); MEAN CORPUSCULAR VOLUME 90 fL (80-99); MONOCYTES # (AUTO) 0.7 10^3/uL (0.0-1.0); MONOCYTES % (AUTO) 6 % (0-12); NEUTROPHILS # (AUTO) 7.3 10^3/uL (1.8-7.8); NEUTROPHILS % (AUTO) 67 % (42-75); PLATELET COUNT 217 10^3/uL (130-400)
[2021-01-30] MEDS: ALPRAZolam 0.25 MG (XANAX) TAB PO SCH ×2 (05:16→14:29)
[2021-01-30] MEDS: HYDROcodone/APAP 7.5 MG/325 MG (LORTAB, LORCET PLUS) TABLET PO PRN ×2 (05:16→15:51)
[2021-01-30 05:21] LABS: BUN/CREATININE RATIO 19; CALCIUM 9.3 MG/DL (8.5-10.1); CARBON DIOXIDE 26 MMOL/L (21-32); CHLORIDE 102 MMOL/L (98-107); CREATININE SERUM 0.83 MG/DL (0.60-1.30); GFR ESTIMATED > 60; GLUCOSE 261 MG/DL (70-105); MAGNESIUM 1.8 MG/DL (1.6-2.4); POTASSIUM 4.7 MMOL/L (3.6-5.0); SODIUM 138 MMOL/L (135-145)
[2021-01-30] MEDS: inSUlin ASPART (NovoLOG) 1 UNIT/0.01 ML (CHARGE PER UNIT) SC SCH ×2 (05:34→06:43)
[2021-01-30] MEDS ORDERED: KCL 20 MEQ TAB (K-DUR) PO SCH (06:00)
[2021-01-30] MEDS ORDERED: MAGNESIUM 1 GM/100 ML IVPB 100 ML IV SCH (06:00)
[2021-01-30] MEDS ORDERED: POTASSIUM CL 10MEQ/50ML IVPB 50 ML IV SCH (06:00)
[2021-01-30] MEDS: predniSONE 20 MG TAB PO SCH (06:43)
[2021-01-30] MEDS ORDERED: GABAPENTIN 100 MG (NEURONTIN) CAP PO SCH (09:00)
[2021-01-30] MEDS: CYANOCOBALAMIN 1,000 MCG (VITAMIN B-12) TABLET PO SCH (10:20)
[2021-01-30] MEDS: PANTOPRAZOLE 40 MG (PROTONIX) TAB PO SCH (10:20)
[2021-01-30] MEDS: SIMvastatin 40 MG (ZOCOR) TAB PO SCH (10:20)
[2021-01-30] MEDS: GABAPENTIN 100 MG (NEURONTIN) CAP PO SCH (10:20)
[2021-01-30] MEDS: PRAMIPEXOLE 0.5 MG TAB (MIRAPEX) PO SCH (10:20)
[2021-01-30] MEDS: APIXABAN 5 MG (ELIQUIS) TABLET PO SCH (10:21)
[2021-01-30] MEDS: polyethylene glycoL POWDER 17 GM (MIRALAX) PACK PO PRN (10:36)
[2021-01-30] MEDS ORDERED: INSU100I32 SQ ×2 (10:53→15:08)
[2021-01-30] MEDS ORDERED: inSUlin ASPART (NovoLOG) 1 UNIT/0.01 ML (CHARGE PER UNIT) SC SCH ×2 (12:00→16:00)
[2021-01-30] MEDS: RT-ALBUTEROL/IPRATROPIUM 3 ML (DUONEB) VIAL INH SCH (14:53)
[2021-01-30 15:17] VITALS: BP 150/75
== END 2021-01-30 16:15 | disposition home or self-care (01) | DRG 638 ==
LOC: EDUNIT# 15:58 → ER 15:59 → ICU 18:35 → 4TH 01-29 16:59
PROVIDERS: ADMIT Family Medicine; ATTEND Internal Medicine
DX: E11.10 Type 2 diabetes mellitus with ketoacidosis without coma (principal); J44.1 Chronic obstructive pulmonary disease with (acute) exacerbation; J96.10 Chronic respiratory failure, unspecified whether with hypoxia or hypercapnia; J84.89 Other specified interstitial pulmonary diseases; R25.8 Other abnormal involuntary movements; I10 Essential (primary) hypertension; G47.33 Obstructive sleep apnea (adult) (pediatric); E78.00 Pure hypercholesterolemia, unspecified; G25.81 Restless legs syndrome; M19.91 Primary osteoarthritis, unspecified site; F41.9 Anxiety disorder, unspecified; F32.9 Major depressive disorder, single episode, unspecified; Z79.4 Long term (current) use of insulin; Z86.16 Personal history of COVID-19; Z86.711 Personal history of pulmonary embolism; Z87.01 Personal history of pneumonia (recurrent); Z79.01 Long term (current) use of anticoagulants; Z79.2 Long term (current) use of antibiotics; Z79.52 Long term (current) use of systemic steroids; Z82.61 Family history of arthritis; Z82.49 Family history of ischemic heart disease and other diseases of the circulatory system; T38.0X5A Adverse effect of glucocorticoids and synthetic analogues, initial encounter
CPT/HCPCS: 36415; 80048; 81000; 82010; 82947; 83036; 83735; 84100; 85025; 87081; 94640; 94760

== ENCOUNTER → 2021-02-21 | Outpatient (CLI) | payer MEDICARE, OTHER ==
[~2021-02-21] MED LIST changes: +CARB1TAB19 PO; +DICL100G13 TOP; -DICL100G31 TOP; +HYDR-87 PO; +INSU100I32 SQ; -OXYC-464 PO; +OXYC1TAB15 PO
--- NOTE | 2021-02-21 13:53 | Diagnostic Imaging Report ---
INDICATION: Pneumonia. PA and lateral views of the chest were obtained. Comparison is made with prior examination 01/27/2021. FINDINGS: The heart size is normal. Lungs are clear. There is no pleural effusion or pneumothorax. The mediastinum is unremarkable. Infusaport catheter overlies the right hemithorax and has its tip in the superior vena cava. IMPRESSION: Chronic interstitial scarring otherwise unremarkable. Dictated by: Dictated on workstation # [id number]
== END ==
LOC: RAD 12:20
DX: J18.9 Pneumonia, unspecified organism (principal)
CPT/HCPCS: 71046

== ENCOUNTER 2021-07-02 12:26 | Outpatient (RCR) | payer MEDICARE, OTHER ==
[2021-04-19 09:28] VITALS: BP 169/88
[2021-05-25 12:20] VITALS: BP 157/67
[~2021-07-02] VITALS: Ht 170.2 cm; Wt 115.8 kg
[2021-07-02 12:25] VITALS: BP 145/73
[2021-07-02 13:47] LABS: TRIGLYCERIDES 154 MG/DL (<150); VLDL CHOLESTEROL 31 MG/DL (5-40)
[2021-07-02 13:52] LABS: CHOLESTEROL 181 MG/DL (< 200); HDL CHOLESTEROL 56 MG/DL (40-60)
== END 2021-07-02 13:30 | disposition home or self-care (01) ==
LOC: SDC 12:26
DX: Z45.2 Encounter for adjustment and management of vascular access device (principal); E11.9 Type 2 diabetes mellitus without complications
CPT/HCPCS: 36415; 36591; 80061; 82607; 83036; 84443

== ENCOUNTER → 2021-07-14 | Outpatient (CLI) | payer MEDICARE, OTHER | LOC: LAB 09:42 | PROVIDERS: ATTEND Urology | DX: Z20.822 Contact with and (suspected) exposure to COVID-19 (principal) | CPT/HCPCS: 87636 ==

== ENCOUNTER 2021-12-16 17:31 | Emergency (ER) | payer MEDICARE, OTHER ==
[~2021-12-16] VITALS: Ht 167.7 cm; Wt 108.9 kg
[~2021-12-16 17:31] MED LIST changes: -FLUC150T2 PO; +FLUC150T41 PO; -LEVO500T80 PO; +LEVO500T81 PO; +MONT-40 PO; -MONT10TA32 PO
[2021-12-16 17:53] LABS: BILIRUBIN,URINE NEGATIVE (NEGATIVE); CLARITY,URINE CLEAR; COLOR,URINE YELLOW; GLUCOSE, URINE (UA) NEGATIVE (NEGATIVE); KETONES,URINE NEGATIVE (NEGATIVE); LEUKOCYTE ESTERASE ,URINE NEGATIVE (NEGATIVE); NITRITE,URINE NEGATIVE (NEGATIVE); PH,URINE 5.5 (5-9); PROTEIN,URINE NEGATIVE (NEGATIVE)
--- NOTE | 2021-12-16 17:53 | ED GU-Female ---
General Stated Complaint: URINARY FREQUENCY/URGENCY Source: patient Exam Limitations: no limitations (JOSE FALK) History of Present Illness Date Seen by Provider: Dec 16, 2021 Time Seen by Provider: 17:52 Initial Comments Patient is a 71-year-old female who presents ED with frequent urination without pain. History of UTIs. She states today's it feels like her similar UTIs. She denies of any abdominal pain, fever, chills, nausea, vomiting. Symptoms started this morning. She states she is urinating a few times an hour (JOSE FALK) Allergies and Home Medications Allergies Coded Allergies: No Known Drug Allergies (Unverified , 02/11/14) Patient Home Medication List Home Medication List Reviewed: Yes (JOSE FALK) Amitriptyline HCl (Amitriptyline HCl) 75 Mg Tablet, 75 MG PO HS, (Reported) Entered as Reported by: ERICA LY on 05/31/20 1314 Apixaban (Eliquis) 5 Mg Tablet, 5 MG PO BID, (Reported) Entered as Reported by: ERICA LY on 05/31/20 1314 Ascorbate Calcium (Vitamin C) 500 Mg Tablet, 500 MG PO DAILY, (Reported) Entered as Reported by: ERICA LY on 01/29/21 1130 Carbidopa/Levodopa (Carbidopa-Levodopa 25-100 Tab) 1 Each Tablet, 1 EA PO BID, (Reported) Entered as Reported by: ERICA LY on 01/29/21 1127 Celecoxib (Celebrex) 200 Mg Capsule, 200 MG PO DAILY, (Reported) Entered as Reported by: JULIANA LY on 11/08/20 1054 Cephalexin (Cephalexin) 500 Mg Tablet, 500 MG PO BID Prescribed by: DERICK KONG on 12/16/21 1811 Cholecalciferol (Vitamin D3) (Vitamin D3) 25 Mcg Tablet, 25 MCG PO DAILY, (Reported) Entered as Reported by: ERICA LY on 11/14/20 1644 Cyanocobalamin (Cyanocobalamin Injection) 1,000 Mcg/Ml Inj, 1,000 MCG IM MONTLY, (Reported) Entered as Reported by: ERICA LY on 11/14/20 1651 Cyanocobalamin (Vitamin B-12) (Vitamin B-12) 1,000 Mcg Tablet, 1,000 MCG PO SHAMAR FERRARA, (Reported) Entered as Reported by: ERICA LY on 11/14/20 1644 Docusate Sodium (Docusate Sodium) 100 Mg Capsule, 100-200 MG PO TID PRN for CONSTIPATION-1ST LINE, (Reported) Entered as Reported by: ERICA LY on 11/14/20 164 Estradiol (Estradiol) 42.5 Gm Cream.appl, 1 APPLIC VG UD PRN for DRYNESS/ITCHING , (Reported) Entered as Reported by: JULIANA LY on 11/08/20 1054 Ferrous Sulfate (Iron) 325 Mg Tablet, 325 MG PO DAILY, (Reported) Entered as Reported by: ERICA LY on 05/31/19 0903 Fluconazole (Fluconazole) 150 Mg Tablet, 150 MG PO FRI, (Reported) Entered as Reported by: ERICA LY on 11/14/20 164 Hydrochlorothiazide (Hydrochlorothiazide) 25 Mg Tablet, 25 MG PO DAILY, (Reported) Entered as Reported by: MARISOL SIDDIQUI on 03/30/19 1630 Hydrocodone/Ibuprofen (Hydrocodone-Ibuprofen 7.5-200) 1 Each Tablet, 1 EA PO Q6H PRN for PAIN-MODERATE (5-7), (Reported) Entered as Reported by: ERICA LY on 01/29/21 1127 Insulin Degludec (Tresiba Flextouch U-100) 100 Unit/1 Ml Insuln.pen, 25 UNIT SQ DAILY Prescribed by: DANICA HERRING on 01/30/21 1508 Lactobacillus Combo No.10 (Probiotic) 1 Each Capsule, 1 CAP PO DAILY, (Reported) Entered as Reported by: MARISOL SIDDIQUI on 03/30/19 1630 Nitrofurantoin Macrocrystal (Nitrofurantoin) 100 Mg Capsule, 100 MG PO DAILY, (Reported) Entered as Reported by: ERICA LY on 11/14/20 164 Pantoprazole Sodium (Pantoprazole Sodium) 40 Mg Tablet.dr, 40 MG PO DAILY, (Reported) Entered as Reported by: MARISOL SIDDIQUI on 03/30/19 1630 Phenazopyridine HCl (Pyridium) 200 Mg Tablet, 1 TAB PO TID Prescribed by: DERICK KONG on 12/16/21 1813 Polyethylene Glycol 3350 (Miralax) 17 Gm Powd.pack, 17 GM PO TID PRN for CONSTIPATION-2ND LINE, (Reported) Entered as Reported by: ERICA LY on 11/14/20 1644 Pramipexole Di-HCl (Pramipexole Dihydrochloride) 1 Mg Tablet, 1 MG PO BID, (Reported) Entered as Reported by: ERICA LY on 05/31/20 1314 Simvastatin (Simvastatin) 40 Mg Tablet, 40 MG PO HS, (Reported) Entered as Reported by: JULIANA LY on 11/08/20 1054 Sitagliptin Phosphate (Januvia) 100 Mg Tablet, 100 MG PO DAILY, (Reported) Entered as Reported by: ERICA YL on 11/14/20 1651 Triamcinolone Acet (Triamcinolone Acetonide 0.1% Cream) 15 Gm Cr, 1 APPLIC TOP TID PRN for RASH, (Reported) Entered as Reported by: ERICA LY on 11/14/20 1644 Vitamin E (Vitamin E) 1,000 Unit Capsule, 1,000 UNIT PO DAILY, (Reported) Entered as Reported by: ERICA LY on 11/14/20 1644 Review of Systems Review of Systems Constitutional: No chills, No diaphoresis, No fever, No malaise EENTM: No hearing loss, No blurred vision, No double vision Respiratory: No cough, No dyspnea on exertion, No orthopnea, No short of breath Gastrointestinal: No abdominal pain, No diarrhea, No nausea, No vomiting Genitourinary: dysuria, frequency Musculoskeletal: No back pain, No joint pain Skin: No change in color, No change in hair/nails (JOSE FALK) All Other Systemes Reviewed Negative Unless Noted: Yes (JOSE FALK) Past Fqgfjyc-Lnwneq-Fpffyd Hx Immunizations Up To Date Tetanus Booster (TDap): More than 5yrs (JOSE FALK) Seasonal Allergies Seasonal Allergies: No (JOSE FALK) Past Medical History Surgeries: Yes (R knee replaced x2, port, c/s x3, hernia x5, rotator cuff, left wrist) Abdominal, Appendectomy, Hysterectomy, Joint Replacement, Neurological, Orthopedic, Thyroidectomy, Tonsillectomy Respiratory: Yes Asthma, Pneumonia, Chronic Bronchitis, Pulmonary Embolism, Sleep Apnea Currently Using CPAP: Yes Cardiac: Yes High Cholesterol Neurological: Yes (CHIARI MALFORMATION--SURGICAL REPAIR; RESTLESS LEG SYNDROME, Tremors) Reproductive Disorders: No Female Reproductive Disorders: Denies 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 CHRONIC ABDOMINAL PAIN) Chronic Constipation, Chronic Diarrhea Musculoskeletal: Yes Arthritis, Chronic Back Pain Endocrine: Yes (BENIGN MASS LEFT THYROID REMOVED 01/01/2013) Diabetes, Non-Insulin dep HEENT: Yes Cataract Loss of Vision: Denies Hearing Impairment: Denies Cancer: No Psychosocial: Yes Anxiety, Depression Integumentary: No Blood Disorders: No Adverse Reaction/Blood Tranf: No (JOSE FALK) Family Medical History Cancer 03 FATHER (PANCREATIC, PASSED AT 65 FROM THIS) Cataract 03 MOTHER Dementia 03 MOTHER Family history: Arthritis 03 MOTHER Family history: Cardiovascular disease 03 MOTHER (HIGH CHOLESTEROL, [place] ARTERIES 2 TIMES) Hearing loss 03 MOTHER Hypercholesterolemia 03 MOTHER Cancer (JOSE FALK) Physical Exam Vital Signs Vital Signs - First Documented 12/16/21 12/16/21 17:45 18:19 Temp 35.6 Pulse 70 Resp 18 B/P (MAP) 197/90 (125) Pulse Ox 98 O2 Delivery Room Air (GIOVANNI SAUCEDA MD) Vital Signs Capillary Refill : (JOSE FALK) Height, Weight, BMI Height: 5'4.00" Weight: 232lbs. 0.0oz. 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-XII nml as tested, no motor/sensory deficits, alert, normal mood/affect, oriented x 3 Skin: normal color (JOSE FALK) Progress/Results/Core Measures Suspected Sepsis SIRS Temperature: Pulse: Respiratory Rate: Blood Pressure / Mean: (JOSE FALK) Results/Orders Lab Results Laboratory Tests Test 12/16/21 17:48 Range/Units Urine Color YELLOW Urine Clarity CLEAR Urine pH 5.5 5-9 Urine Specific [place] 1.025 H 1.016-1.022 Urine Protein NEGATIVE NEGATIVE Urine Glucose (UA) NEGATIVE NEGATIVE Urine Ketones NEGATIVE NEGATIVE Urine Nitrite NEGATIVE NEGATIVE Urine Bilirubin NEGATIVE NEGATIVE Urine Urobilinogen 0.2 < = 1.0 MG/DL Urine Leukocyte Esterase NEGATIVE NEGATIVE Urine RBC (Auto) TRACE-I H NEGATIVE Urine RBC NONE /HPF Urine WBC 2-5 /HPF Urine Squamous Epithelial Cells 0-2 /HPF Urine Crystals NONE /LPF Urine Bacteria TRACE /HPF Urine Casts NONE /LPF Urine Mucus NEGATIVE /LPF Urine Culture Indicated NO (GIOVANNI SAUCEDA MD) Medications Given in ED Current Medications Medications Dose Ordered Sig/Eloise Route Start Time Stop Time Status Last Admin Dose Admin Phenazopyridine HCl 100 mg ONCE ONCE PO 12/16/21 18:15 12/16/21 18:16 DC 12/16/21 18:17 100 MG (GIOVANNI SAUCEDA MD) Vital Signs/I&O 12/16/21 12/16/21 17:45 18:19 Temp 35.6 Pulse 70 68 Resp 18 17 B/P (MAP) 197/90 (125) 179/86 Pulse Ox 98 O2 Delivery Room Air Room Air (GIOVANNI SAUCEDA MD) Vital Signs/I&O Capillary Refill : (JOSE FALK) Departure Communication (PCP) Patient with frequent urination. Mild discomfort with urination. Patient otherwise no current complaints. She states she has a history of UTIs and states this feels very similar. No abdominal pain,fever, flank pain ,diarrhea. Exam otherwise benign. Slightly hypertensive here. She is type II diabetic controlled. Urinalysis with small amount of hematuria without strong evidence of infection. Discussed with patient may consider observation and recheck with urinalysis with PCP in a few days. Patient is concerns for UTI and states that today's urinary symptoms feel like UTI. Will discharge with 1 dose of Keflex here. 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 Patient Was given dose of Pyridium. If any worsening symptoms return back to ED for further evaluation. Patient denies of any vaginal bleeding vaginal discharge or other concerning causes for the frequent urination. No sugar in her urine. Patient with elevated blood pressure reading. Continue monitoring blood pressure at home. She states she does not have a history of high blood pressure. She has no flank pain, abdominal pain suggesting kidney stone (JOSE FALK) Impression Primary Impression: Dysuria Disposition: HOME, SELF-CARE Condition: Stable Departure-Patient Inst. Decision time for Depature: 18:10 (JOSE FALK) Referrals: SABIHA MAXWELL MD (PCP/Family) Primary Care Physician Patient Instructions: Dysuria, Adult (DC) Scripts Phenazopyridine HCl (Pyridium) 200 Mg Tablet 1 TAB PO TID, #6 TAB Prov: JOSE FALK 12/16/21 Cephalexin (Cephalexin) 500 Mg Tablet 500 MG PO BID for 7 Days, #14 TAB Prov: JOSE FALK 12/16/21 ATTENDING PHYSICIAN NOTE: I was physically present as attending physician in the emergency department during the care of this patient, but I was not directly involved in the decision making or delivery of care for this patient. (GIOVANNI SAUCEDA MD) JOSE FALK Dec 16, 2021 17:53 GIOVANNI SAUCEDA MD Dec 16, 2021 19:20
[2021-12-16 17:59] LABS: BACTERIA,URINE TRACE /HPF
[2021-12-16 18:00] LABS: SQUAMOUS EPITHELIAL CELL,UR 0-2 /HPF
[2021-12-16] MEDS ORDERED: CEPHALEXIN 250 MG (KEFLEX) CAP PO STA (18:09)
[2021-12-16] MEDS ORDERED: CEPH500T PO (18:11)
[2021-12-16] MEDS ORDERED: PHENAZOPYRIDINE 100 MG (PYRIDIUM) TABLET ONE (18:13)
[2021-12-16] MEDS ORDERED: PHEN-640 PO (18:13)
[2021-12-16] MEDS ORDERED: PHENAZOPYRIDINE 100 MG (PYRIDIUM) TABLET PO ONE (18:15)
[2021-12-16 18:19] VITALS: BP 179/86
== END 2021-12-16 18:19 | disposition home or self-care (01) ==
LOC: EDUNIT# 17:31 → ER 17:33
DX: R30.0 Dysuria (principal); R35.0 Frequency of micturition; E11.9 Type 2 diabetes mellitus without complications
CPT/HCPCS: 81000; 99283

== ENCOUNTER 2021-12-18 09:39 | Emergency (ER) | payer MEDICARE, OTHER ==
[~2021-12-18] VITALS: Ht 170 cm; Wt 90.0 kg
[~2021-12-18 09:39] MED LIST changes: +CEPH500T PO; +PHEN-640 PO
[2021-12-18 09:55] VITALS: BP 125/72
[2021-12-18 10:14] LABS: BILIRUBIN,URINE NEGATIVE (NEGATIVE); CLARITY,URINE CLEAR; COLOR,URINE ORANGE; GLUCOSE, URINE (UA) TRACE (NEGATIVE); KETONES,URINE NEGATIVE (NEGATIVE); LEUKOCYTE ESTERASE ,URINE NEGATIVE (NEGATIVE); NITRITE,URINE POSITIVE (NEGATIVE); PROTEIN,URINE 1+ (NEGATIVE)
[2021-12-18 10:37] LABS: BACTERIA,URINE TRACE /HPF; RBC,URINE 0-2 /HPF
--- NOTE | 2021-12-18 11:05 | ED GU-Female ---
General Chief Complaint: - Reproductive Stated Complaint: UTI Nursing Triage Note: PT WAS SEEN ON FRIDAY ET DX WITH A UTI AND PUT ON AN ABX. PT STATES SHE IS NOT BETTER. Source: patient Exam Limitations: no limitations (NASRA VELASQUEZ APRN) History of Present Illness Date Seen by Provider: Dec 18, 2021 Time Seen by Provider: 10:50 Initial Comments This is a well-appearing 71-year-old female who presented to the ER via POV with concerns for worsening urinary tract infection. States that she was evaluated and treated in this emergency department this past Friday and was placed on antibiotics however she does not feel they are improving her symptoms. States that she did complete the entire course. States she woke up at 0400 this morning with urinary frequency. Denies fever, chills, nausea, vomiting, abdominal pain, flank pain. (NASRA VELASQUEZ APRN) Allergies and Home Medications Allergies Coded Allergies: No Known Drug Allergies (Unverified , 02/11/14) Patient Home Medication List Home Medication List Reviewed: Yes (NASRA VELASQUEZ APRN) Amitriptyline HCl (Amitriptyline HCl) 75 Mg Tablet, 75 MG PO HS, (Reported) Entered as Reported by: ERICA LY on 05/31/20 1314 Apixaban (Eliquis) 5 Mg Tablet, 5 MG PO BID, (Reported) Entered as Reported by: ERICA LY on 05/31/20 1314 Ascorbate Calcium (Vitamin C) 500 Mg Tablet, 500 MG PO DAILY, (Reported) Entered as Reported by: ERICA LY on 01/29/21 1130 Carbidopa/Levodopa (Carbidopa-Levodopa 25-100 Tab) 1 Each Tablet, 1 EA PO BID, (Reported) Entered as Reported by: ERICA LY on 01/29/21 1127 Celecoxib (Celebrex) 200 Mg Capsule, 200 MG PO DAILY, (Reported) Entered as Reported by: JULIANA LY on 11/08/20 1054 Cephalexin (Cephalexin) 500 Mg Tablet, 500 MG PO BID Prescribed by: DERICK KONG on 12/16/21 1811 Cholecalciferol (Vitamin D3) (Vitamin D3) 25 Mcg Tablet, 25 MCG PO DAILY, (Reported) Entered as Reported by: ERICA LY on 11/14/20 1644 Ciprofloxacin HCl (Ciprofloxacin HCl) 250 Mg Tablet, 250 MG PO Q12H Prescribed by: NASRA VELASQUEZ on 12/18/21 1107 Cyanocobalamin (Cyanocobalamin Injection) 1,000 Mcg/Ml Inj, 1,000 MCG IM MONTLY, (Reported) Entered as Reported by: ERICA LY on 11/14/20 1651 Cyanocobalamin (Vitamin B-12) (Vitamin B-12) 1,000 Mcg Tablet, 1,000 MCG PO DAILY, (Reported) Entered as Reported by: ERICA LY on 11/14/20 1644 Docusate Sodium (Docusate Sodium) 100 Mg Capsule, 100-200 MG PO TID PRN for CONSTIPATION-1ST LINE, (Reported) Entered as Reported by: ERICA LY on 11/14/20 1644 Estradiol (Estradiol) 42.5 Gm Cream.appl, 1 APPLIC VG UD PRN for DRYNESS/ITCHING, (Reported) Entered as Reported by: JULIANA LY on 11/08/20 1054 Ferrous Sulfate (Iron) 325 Mg Tablet, 325 MG PO DAILY, (Reported) Entered as Reported by: ERICA LY on 05/31/19 0903 Fluconazole (Fluconazole) 150 Mg Tablet, 150 MG PO , (Reported) Entered as Reported by: ERICA LY on 11/14/20 1644 Hydrochlorothiazide (Hydrochlorothiazide) 25 Mg Tablet, 25 MG PO DAILY, (Reported) Entered as Reported by: MARISOL SIDDIQUI on 03/30/19 1630 Hydrocodone/Ibuprofen (Hydrocodone-Ibuprofen 7.5-200) 1 Each Tablet, 1 EA PO Q6H PRN for PAIN-MODERATE (5-7), (Reported) Entered as Reported by: ERICA LY on 01/29/21 1127 Insulin Degludec (Tresiba Flextouch U-100) 100 Unit/1 Ml Insuln.pen, 25 UNIT SQ DAILY Prescribed by: DANICA HERRING on 01/30/21 1508 Lactobacillus Combo No.10 (Probiotic) 1 Each Capsule, 1 CAP PO DAILY, (Reported) Entered as Reported by: MARISOL SIDDIQUI on 03/30/19 1630 Nitrofurantoin Macrocrystal (Nitrofurantoin) 100 Mg Capsule, 100 MG PO DAILY, (Reported) Entered as Reported by: ERICA LY on 11/14/20 1644 Pantoprazole Sodium (Pantoprazole Sodium) 40 Mg Tablet.dr, 40 MG PO DAILY, (Reported) Entered as Reported by: MARISOL SIDDIQUI on 03/30/19 1630 Phenazopyridine HCl (Pyridium) 200 Mg Tablet, 1 TAB PO TID Prescribed by: DERICK KONG on 12/16/21 1813 Polyethylene Glycol 3350 (Miralax) 17 Gm Powd.pack, 17 GM PO TID PRN for CONSTIPATION-2ND LINE, (Reported) Entered as Reported by: ERICA LY on 11/14/20 1644 Pramipexole Di-HCl (Pramipexole Dihydrochloride) 1 Mg Tablet, 1 MG PO BID, (Reported) Entered as Reported by: ERICA LY on 05/31/20 1314 Simvastatin (Simvastatin) 40 Mg Tablet, 40 MG PO HS, (Reported) Entered as Reported by: JULIANA LY on 11/08/20 1054 Sitagliptin Phosphate (Januvia) 100 Mg Tablet, 100 MG PO DAILY, (Reported) Entered as Reported by: ERICA LY on 11/14/20 1651 Triamcinolone Acet (Triamcinolone Acetonide 0.1% Cream) 15 Gm Cr, 1 APPLIC TOP TID PRN for RASH, (Reported) Entered as Reported by: ERICA LY on 11/14/20 1644 Vitamin E (Vitamin E) 1,000 Unit Capsule, 1,000 UNIT PO DAILY, (Reported) Entered as Reported by: ERICA LY on 11/14/20 1644 Review of Systems Review of Systems Constitutional: see HPI EENTM: no symptoms reported Gastrointestinal: no symptoms reported Genitourinary: denies burning, denies discharge, denies dysuria; frequency; denies flank pain, denies hematuria Musculoskeletal: no symptoms reported Skin: no symptoms reported (NASRA VELASQUEZ APRN) Past [place]-Pwehqf-Rczocg Hx Immunizations Up To Date Tetanus Booster (TDap): More than 5yrs (NASRA VELASQUEZ APRN) Seasonal Allergies Seasonal Allergies: No (NASRA VELASQUEZ APRN) Past Medical History Surgeries: Yes (R knee replaced x2, port, c/s x3, hernia x5, rotator cuff, left wrist) Abdominal, Appendectomy, Hysterectomy, Joint Replacement, Neurological, Orthopedic, Thyroidectomy, Tonsillectomy Respiratory: Yes Asthma, Pneumonia, Chronic Bronchitis, Pulmonary Embolism, Sleep Apnea Currently Using CPAP: Yes Cardiac: Yes High Cholesterol Neurological: Yes (CHIARI MALFORMATION--SURGICAL REPAIR; RESTLESS LEG SYNDROME, Tremors) Reproductive Disorders: No Female Reproductive Disorders: Denies 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 CHRONIC ABDOMINAL PAIN) Chronic Constipation, Chronic Diarrhea Musculoskeletal: Yes Arthritis, Chronic Back Pain Endocrine: Yes (BENIGN MASS LEFT THYROID REMOVED 01/01/2013) Diabetes, Non-Insulin dep HEENT: Yes Cataract Loss of Vision: Denies Hearing Impairment: Denies Cancer: No Psychosocial: Yes Anxiety, Depression Integumentary: No Blood Disorders: No Adverse Reaction/Blood Tranf: No (NASRA VELASQUEZ APRN) Family Medical History Cancer 03 FATHER (PANCREATIC, PASSED AT 65 FROM THIS) Cataract 03 MOTHER Dementia 03 MOTHER Family history: Arthritis 03 MOTHER Family history: Cardiovascular disease 03 MOTHER (HIGH CHOLESTEROL, [place] ARTERIES 2 TIMES) Hearing loss 03 MOTHER Hypercholesterolemia 03 MOTHER Cancer (NASRA VELASQUEZ APRN) Physical Exam Vital Signs Vital Signs - First Documented 12/18/21 09:55 Temp 36.6 Pulse 61 Resp 16 B/P (MAP) 125/72 (89) Pulse Ox 95 O2 Delivery Room Air (GIOVANNI SAUCEDA MD) Vital Signs Capillary Refill : Less Than 3 Seconds (NASRA VELASQUEZ APRN) Height, Weight, BMI Height: 5'4.00" Weight: 232lbs. 0.0oz. 105.037970qq; 31.00 BMI Method:Stated General Appearance: WD/WN, no apparent distress HEENT: PERRL/EOMI, normal ENT inspection Neck: full range of motion, normal inspection Cardiovascular: regular rate, rhythm, no murmur Respiratory: lungs clear, normal breath sounds, no respiratory distress Gastrointestinal: normal bowel sounds, non tender, soft Back: normal inspection, no CVA tenderness Extremities: normal range of motion, normal inspection Neurologic/Psychiatric: no motor/sensory deficits, alert, normal mood/affect, oriented x 3 Skin: normal color, cyanosis (NASRA VELASQUEZ APRN) Progress/Results/Core Measures Suspected Sepsis SIRS Temperature: Pulse: 61 Respiratory Rate: 16 Blood Pressure 125 /72 Mean: 89 (NASRA VELASQUEZ APRN) Results/Orders Lab Results Laboratory Tests Test 12/18/21 10:05 Range/Units Urine Color ORANGE Urine Clarity CLEAR Urine pH 5.0 5-9 Urine Specific [place] 1.025 H 1.016-1.022 Urine Protein 1+ H NEGATIVE Urine Glucose (UA) TRACE H NEGATIVE Urine Ketones NEGATIVE NEGATIVE Urine Nitrite POSITIVE H NEGATIVE Urine Bilirubin NEGATIVE NEGATIVE Urine Urobilinogen 4.0 < = 1.0 MG/DL Urine Leukocyte Esterase NEGATIVE NEGATIVE Urine RBC (Auto) NEGATIVE NEGATIVE Urine RBC 0-2 /HPF Urine WBC 2-5 /HPF Urine Squamous Epithelial Cells 2-5 /HPF Urine Crystals NONE /LPF Urine Bacteria TRACE /HPF Urine Casts NONE /LPF Urine Mucus MODERATE H /LPF Urine Culture Indicated YES (GIOVANNI SAUCEDA MD) My Orders Orders - GIOVANNI SAUCEDA MD Ua Culture If Indicated (12/18/21 09:51) Urine Culture (12/18/21 10:05) (GIOVANNI SAUCEDA MD) Vital Signs/I&O 12/18/21 09:55 Temp 36.6 Pulse 61 Resp 16 B/P (MAP) 125/72 (89) Pulse Ox 95 O2 Delivery Room Air (GIOVANNI SAUCEDA MD) Vital Signs/I&O Capillary Refill : Less Than 3 Seconds (NASRA VELASQUEZ APRN) Blood Pressure Mean: 89 Progress Note : Progress Note Patient examined and in no acute distress. She has persistent urinary frequency with no additional systemic symptoms such as fever, nausea, chills, flank pain, abdominal pain. Her urine is nitrite positive. No culture indicated on her previous UA we will go ahead and culture her urine today. Reviewed prior culture and will place on Cipro. Reviewed symptoms of Hansel and to return if she develops any fever, chills, nausea, vomiting, flank pain. Verbalized understanding. She has follow-up appointment with her primary care provider on Friday we will have her keep this. Reviewed discharge plan of care with her and she is agreeable with plan. No concerns voiced. (RON,STORMY D REFRIGERATION REPAIR SUPERVISOR) Departure Impression Primary Impression: Urinary tract infection Disposition: 01 HOME, SELF-CARE Condition: Stable Departure-Patient Inst. Decision time for Depature: 11:04 (NASRA VELASQUEZ APRN) Referrals: SABIHA MAXWELL MD (PCP/Family) Primary Care Physician Patient Instructions: Urinary Tract Infection, Adult (DC) Add. Discharge Instructions: Plan: 1. Drink plenty of fluids to keep urine pale yellow. 2. Take antibiotics as directed and complete full course. 3. Follow up with primary care provider as scheduled. 4. Return for fever, chills, nausea, vomiting, flank pain, or abdominal pain. 5. Return for any new, concerning, or worsening symptoms. All discharge instructions reviewed with patient and/or family. Voiced understanding. Scripts Ciprofloxacin HCl (Ciprofloxacin HCl) 250 Mg Tablet 250 MG PO Q12H for 7 Days, #14 TAB 0 Refills Prov: NASRA VELASQUEZ APRN 12/18/21 ATTENDING PHYSICIAN NOTE: I was physically present as attending physician in the emergency department during the care of this patient, but I was not directly involved in the decision making or delivery of care for this patient. (GIOVANNI SAUCEDA MD) Copy Copies To 1: SABIHA MAXWELL MD, STORMY D APRN Dec 18, 2021 11:05 GIOVANNI SAUCEDA MD Dec 18, 2021 19:26
[2021-12-18] MEDS ORDERED: CIPR250T3 PO (11:07)
== END 2021-12-18 11:11 | disposition home or self-care (01) ==
LOC: EDUNIT# 09:39 → ER 09:40
DX: N39.0 Urinary tract infection, site not specified (principal); E11.9 Type 2 diabetes mellitus without complications
CPT/HCPCS: 81000; 87088; 99282

== ENCOUNTER 2021-12-25 17:17 | Emergency (ER) | payer MEDICARE, OTHER ==
[~2021-12-25] VITALS: Ht 167 cm; Wt 108.8 kg
[2021-12-25 17:37] LABS: BILIRUBIN,URINE NEGATIVE (NEGATIVE); COLOR,URINE YELLOW; GLUCOSE, URINE (UA) NEGATIVE (NEGATIVE); KETONES,URINE NEGATIVE (NEGATIVE); LEUKOCYTE ESTERASE ,URINE 2+ (NEGATIVE); NITRITE,URINE NEGATIVE (NEGATIVE); PH,URINE 5.5 (5-9); PROTEIN,URINE NEGATIVE (NEGATIVE)
--- NOTE | 2021-12-25 17:38 | ED GU-Female ---
General Stated Complaint: UTI Source: patient Exam Limitations: no limitations (JOSE FALK) History of Present Illness Date Seen by Provider: December 25, 2021 Time Seen by Provider: 17:35 Initial Comments Patient is a 71-year-old female who presents ED for frequent urination. Patient states she has been having symptoms since December 16. Patient was seen here in the ER and prescribed Keflex. She returned 2 days ago with returning symptoms was prescribed Cipro. She states she has had continued symptoms since. She has not follow-up with her primary care physician. She denies of any abdominal pain, flank pain, fever, chills, nausea, vomiting. Denies of any vaginal itching, vaginal discharge, chest pain, cough or shortness of breath. Patient is a type II diabetic. (JOSE FALK) Allergies and Home Medications Allergies Coded Allergies: No Known Drug Allergies (Unverified , 02/11/14) Patient Home Medication List Home Medication List Reviewed: Yes (JOSE FALK) Amitriptyline HCl (Amitriptyline HCl) 75 Mg Tablet, 75 MG PO HS, (Reported) Entered as Reported by: ERICA LY on 05/31/20 1314 Apixaban (Eliquis) 5 Mg Tablet, 5 MG PO BID, (Reported) Entered as Reported by: ERICA LY on 05/31/20 1314 Ascorbate Calcium (Vitamin C) 500 Mg Tablet, 500 MG PO DAILY, (Reported) Entered as Reported by: ERICA LY on 01/29/21 1130 Carbidopa/Levodopa (Carbidopa-Levodopa 25-100 Tab) 1 Each Tablet, 1 EA PO BID, (Reported) Entered as Reported by: ERICA LY on 01/29/21 1127 Celecoxib (Celebrex) 200 Mg Capsule, 200 MG PO DAILY, (Reported) Entered as Reported by: JULIANA LY on 11/08/20 1054 Cephalexin (Cephalexin) 500 Mg Tablet, 500 MG PO BID Prescribed by: DERICK KONG on 12/16/21 1811 Cholecalciferol (Vitamin D3) (Vitamin D3) 25 Mcg Tablet, 25 MCG PO DAILY, (Reported) Entered as Reported by: ERICA LY on 11/14/20 1644 Ciprofloxacin HCl (Ciprofloxacin HCl) 250 Mg Tablet, 250 MG PO Q12H Prescribed by: NASRA VELASQUEZ on 12/18/21 1107 Cyanocobalamin (Cyanocobalamin Injection) 1,000 Mcg/Ml Inj, 1,000 MCG IM MONTLY, (Reported) Entered as Reported by: ERICA LY on 11/14/20 1651 Cyanocobalamin (Vitamin B-12) (Vitamin B-12) 1,000 Mcg Tablet, 1,000 MCG PO DAILY, (Reported) Entered as Reported by: ERICA LY on 11/14/20 1644 Docusate Sodium (Docusate Sodium) 100 Mg Capsule, 100-200 MG PO TID PRN for CONSTIPATION-1ST LINE, (Reported) Entered as Reported by: ERICA LY on 11/14/20 164 Estradiol (Estradiol) 42.5 Gm Cream.appl, 1 APPLIC VG UD PRN for DRYNES S/ITCHING, (Reported) Entered as Reported by: JULIANA LY on 11/08/20 1054 Ferrous Sulfate (Iron) 325 Mg Tablet, 325 MG PO DAILY, (Reported) Entered as Reported by: ERICA LY on 05/31/19 0903 Fluconazole (Fluconazole) 150 Mg Tablet, 150 MG PO [facility], (Reported) Entered as Reported by: ERICA LY on 11/14/20 164 Fluconazole (Diflucan) 150 Mg Tablet, 150 MG PO ONCE Prescribed by: DERICK KONG on 12/25/21 1917 Hydrochlorothiazide (Hydrochlorothiazide) 25 Mg Tablet, 25 MG PO DAILY, (Reported) Entered as Reported by: MARISOL SIDDIQUI on 03/30/19 1630 Hydrocodone/Ibuprofen (Hydrocodone-Ibuprofen 7.5-200) 1 Each Tablet, 1 EA PO Q6H PRN for PAIN-MODERATE (5-7), (Reported) Entered as Reported by: ERICA LY on 01/29/21 1127 Insulin Degludec (Tresiba Flextouch U-100) 100 Unit/1 Ml Insuln.pen, 25 UNIT SQ DAILY Prescribed by: DANICA HERRING on 01/30/21 1508 Lactobacillus Combo No.10 (Probiotic) 1 Each Capsule, 1 CAP PO DAILY, (Reported) Entered as Reported by: MARISOL SIDDIQUI on 03/30/19 1630 Nitrofurantoin Macrocrystal (Nitrofurantoin) 100 Mg Capsule, 100 MG PO DAILY, (Reported) Entered as Reported by: ERICA LY on 11/14/20 1644 Nitrofurantoin Monohyd/M-Cryst (Macrobid 100 mg Capsule) 100 Mg Capsule, 1 TAB PO BID Prescribed by: DERICK KONG on 12/25/21 191 Pantoprazole Sodium (Pantoprazole Sodium) 40 Mg Tablet.dr, 40 MG PO DAILY, (Reported) Entered as Reported by: MARISOL SIDDIQUI on 03/30/19 1630 Phenazopyridine HCl (Pyridium) 200 Mg Tablet, 1 TAB PO TID Prescribed by: DERICK KONG on 12/16/21 181 Polyethylene Glycol 3350 (Miralax) 17 Gm Powd.pack, 17 GM PO TID PRN for CONSTIPATION-2ND LINE, (Reported) Entered as Reported by: ERICA LY on 11/14/20 1644 Pramipexole Di-HCl (Pramipexole Dihydrochloride) 1 Mg Tablet, 1 MG PO BID, (Reported) Entered as Reported by: REICA LY on 05/31/20 1314 Simvastatin (Simvastatin) 40 Mg Tablet, 40 MG PO HS, (Reported) Entered as Reported by: JULIANA LY on 11/08/20 1054 Sitagliptin Phosphate (Januvia) 100 Mg Tablet, 100 MG PO DAILY, (Reported) Entered as Reported by: ERICA LY on 11/14/20 1651 Triamcinolone Acet (Triamcinolone Acetonide 0.1% Cream) 15 Gm Cr, 1 APPLIC TOP TID PRN for RASH, (Reported) Entered as Reported by: ERICA LY on 11/14/20 1644 Vitamin E (Vitamin E) 1,000 Unit Capsule, 1,000 UNIT PO DAILY, (Reported) Entered as Reported by: ERICA LY on 11/14/20 1644 Review of Systems Review of Systems Constitutional: No chills, No diaphoresis, No fever, No malaise EENTM: No blurred vision, No double vision, No dental problems, No mouth pain, No mouth swelling, No throat pain, No throat swelling Respiratory: No cough, No dyspnea on exertion Cardiovascular: No chest pain Musculoskeletal: No back pain, No joint pain, No joint swelling, No muscle pain, No muscle stiffness Skin: No change in color, No change in hair/nails (JOSE FALK) All Other Systemes Reviewed Negative Unless Noted: Yes (JOSE FALK) Past Uvgfqrm-Aqrxnf-Nqeayc Hx Immunizations Up To Date Tetanus Booster (TDap): More than 5yrs (JOSE FALK) Seasonal Allergies Seasonal Allergies: No (JOSE FALK) Past Medical History Surgeries: Yes (R knee replaced x2, port, c/s x3, hernia x5, rotator cuff, left wrist) Abdominal, Appendectomy, Hysterectomy, Joint Replacement, Neurological, Orthopedic, Thyroidectomy, Tonsillectomy Respiratory: Yes Asthma, Pneumonia, Chronic Bronchitis, Pulmonary Embolism, Sleep Apnea Currently Using CPAP: Yes Cardiac: Yes High Cholesterol Neurological: Yes (CHIARI MALFORMATION--SURGICAL REPAIR; RESTLESS LEG SYNDROME, Tremors) Reproductive Disorders: No Female Reproductive Disorders: Denies [employer] History: Hysterectomy Sexually Transmitted Disease: No HIV/AIDS: No Genitourinary: Yes Bladder Infection Gastrointestinal: Yes ("COMPLETE ABDOMINAL RECONSTRUCTION" 2010. CHRONIC ABDOMINAL PAIN) Chronic Constipation, Chronic Diarrhea Musculoskeletal: Yes Arthritis, Chronic Back Pain Endocrine: Yes (BENIGN MASS LEFT THYROID REMOVED 01/01/2013) Diabetes, Non-Insulin dep HEENT: Yes Cataract Loss of Vision: Denies Hearing Impairment: Denies Cancer: No Psychosocial: Yes Anxiety, Depression Integumentary: No Blood Disorders: No Adverse Reaction/Blood Tranf: No (JOSE FALK) Family Medical History Cancer 03 FATHER (PANCREATIC, PASSED AT 65 FROM THIS) Cataract 03 MOTHER Dementia 03 MOTHER Family history: Arthritis 03 MOTHER Family history: Cardiovascular disease 03 MOTHER (HIGH CHOLESTEROL, [place] ARTERIES 2 TIMES) Hearing loss 03 MOTHER Hypercholesterolemia 03 MOTHER Cancer (JOSE FALK) Physical Exam Vital Signs Vital Signs - First Documented 12/25/21 17:27 Temp 35.8 Pulse 105 Resp 18 B/P (MAP) 177/87 (117) Pulse Ox 96 O2 Delivery Room Air (GIOVANNI SAUCEDA MD) Vital Signs Capillary Refill : (JOSE FALK) Height, Weight, BMI Height: 5'4.00" Weight: 232lbs. 0.0oz. 105.312506sk; 31.00 BMI Method:Stated General Appearance: WD/WN, no apparent distress HEENT: PERRL/EOMI, normal ENT inspection, TMs normal, pharynx normal Neck: non-tender, full range of motion, supple, normal inspection Cardiovascular: regular rate, rhythm, no edema, no gallop, no JVD Respiratory: chest non-tender, lungs clear, normal breath sounds, no respiratory distress, no accessory muscle use Gastrointestinal: normal bowel sounds, non tender, soft, no organomegaly, no pulsatile mass Pelvic: normal adnexa Back: normal inspection, no CVA tenderness, no vertebral tenderness Extremities: normal range of motion, non-tender, normal inspection, no pedal edema, no calf tenderness Skin: normal color, warm/dry (JOSE FALK) Progress/Results/Core Measures Suspected Sepsis SIRS Temperature: Pulse: Respiratory Rate: Laboratory Tests 12/25/21 17:49: White Blood Count 11.6H Blood Pressure / Mean: Laboratory Tests 12/25/21 17:49: Creatinine 0.83, Platelet Count 227, Total Bilirubin 2.3H (JOSE FALK) Results/Orders Lab Results Laboratory Tests Test 12/25/21 17:27 12/25/21 17:49 Range/Units Urine Color YELLOW Urine Clarity SL CLOUDY Urine pH 5.5 5-9 Urine Specific [facility] [place] 1.015 L 1.016-1.022 Urine Protein NEGATIVE NEGATIVE Urine Glucose (UA) NEGATIVE NEGATIVE Urine Ketones NEGATIVE NEGATIVE Urine Nitrite NEGATIVE NEGATIVE Urine Bilirubin NEGATIVE NEGATIVE Urine Urobilinogen 0.2 < = 1.0 MG/DL Urine Leukocyte Esterase 2+ H NEGATIVE Urine RBC (Auto) TRACE-I H NEGATIVE Urine RBC 0-2 /HPF Urine WBC 5-10 H /HPF Urine Squamous Epithelial Cells 2-5 /HPF Urine Crystals NONE /LPF Urine Bacteria FEW H /HPF Urine Casts NONE /LPF Urine Mucus SMALL H /LPF Urine Culture Indicated YES White Blood Count 11.6 H 4.3-11.0 10^3/uL Red Blood Count 5.40 H 3.80-5.11 10^6/uL Hemoglobin 14.9 11.5-16.0 g/dL Hematocrit 46 35-52 % Mean Corpuscular Volume 85 80-99 fL Mean Corpuscular Hemoglobin 28 25-34 pg Mean Corpuscular Hemoglobin Concent 33 32-36 g/dL Red Cell Distribution Width 14.3 10.0-14.5 % Platelet Count 227 130-400 10^3/uL Mean Platelet Volume 10.6 9.0-12.2 fL Immature Granulocyte % (Auto) 1 % Neutrophils (%) (Auto) 69 42-75 % Lymphocytes (%) (Auto) 23 12-44 % Monocytes (%) (Auto) 6 0-12 % Eosinophils (%) (Auto) 2 0-10 % Basophils (%) (Auto) 0 0-10 % Neutrophils # (Auto) 8.0 H 1.8-7.8 10^3/uL Lymphocytes # (Auto) 2.7 1.0-4.0 10^3/uL Monocytes # (Auto) 0.7 0.0-1.0 10^3/uL Eosinophils # (Auto) 0.2 0.0-0.3 10^3/uL Basophils # (Auto) 0.1 0.0-0.1 10^3/uL Immature Granulocyte # (Auto) 0.1 0.0-0.1 10^3/uL Sodium Level 138 135-145 MMOL/L Potassium Level 3.7 3.6-5.0 MMOL/L Chloride Level 102 98-107 MMOL/L Carbon Dioxide Level 22 21-32 MMOL/L Anion Gap 14 5-14 MMOL/L Blood Urea Nitrogen 12 7-18 MG/DL Creatinine 0.83 0.60-1.30 MG/DL Estimat Glomerular Filtration Rate 76 BUN/Creatinine Ratio 14 Glucose Level 194 H 70-105 MG/DL Calcium Level 9.5 8.5-10.1 MG/DL Corrected Calcium 9.6 8.5-10.1 MG/DL Total Bilirubin 2.3 H 0.1-1.0 MG/DL Aspartate Amino Transf (AST/SGOT) 12 5-34 U/L Alanine Aminotransferase (ALT/SGPT) 16 0-55 U/L Alkaline Phosphatase 95 40-136 U/L Total Protein 6.4 6.4-8.2 GM/DL Albumin 3.9 3.2-4.5 GM/DL (GIOVANNI SAUCEDA MD) Vital Signs/I&O 12/25/21 17:27 Temp 35.8 Pulse 105 Resp 18 B/P (MAP) 177/87 (117) Pulse Ox 96 O2 Delivery Room Air (GIOVANNI SAUCEDA MD) Vital Signs/I&O Capillary Refill : (JOSE FALK) Departure Communication (PCP) Patient presents ED with ongoing UTI symptoms of frequent urination. Mild burning without abdominal pain, fever, chills, nausea, vomiting. Patient does not appear toxic. She was tachycardic but that improved without any i ntervention here in the ER. She is afebrile. Slight elevated white blood count with normal kidney function. CT abdomen pelvis without evidence of calculus, obstruction. Patient has had UTIs in the past with positive susceptibility to Cipro and Macrobid. No improvement with Cipro. We will switch to Macrobid with normal kidney function. Discussed importance of hydration. Discussed hygiene changes. Patient was given dose of oral Diflucan as well with a history of yeast. Denies of any specific vaginal irritation. Discussed overactive bladder. If symptoms progress or worsen recommend returning. Provided urology outpatient follow-up if this becomes chronic or recurring. (JOSE FALK) Impression Primary Impression: Recurrent UTI Disposition: HOME, SELF-CARE Condition: Stable Departure-Patient Inst. Decision time for Depature: 19:15 (JOSE FALK) Referrals: SABIHA MAXWELL MD (PCP/Family) Primary Care Physician GAMALIEL ZHOU MD Patient Instructions: Urinary Tract Infection, Adult (DC) Scripts Fluconazole (Diflucan) 150 Mg Tablet 150 MG PO ONCE, #1 TAB Prov: JOSE FALK 12/25/21 Nitrofurantoin Monohyd/M-Cryst (Macrobid 100 mg Capsule) 100 Mg Capsule 1 TAB PO BID for 5 Days, #9 CAP Prov: JOSE FALK 12/25/21 ATTENDING PHYSICIAN NOTE: I was physically present as attending physician in the emergency department during the care of this patient. I did not examine or interview this patient personally. I have discussed approach to this case with DERICK Serrano. Patient has problems with recurrent symptomatic urinary tract infections. Review of her chart notes numerous cultures positive for E. coli that is resistant to penicillins and cephalosporins. Each culture demonstrated sensitivity to nitrofurantoin. Patient consistently has excellent renal function with high GFR values. Macrobid may be a good option. There is also some concern for possible yeast coinfection, especially because she has diabetes. I have suggested 2 doses of Diflucan 150 mg about 3 days apart during the course of her UTI treatment. I have also suggested investigating other contributing factors such as hygiene, uncontrolled diabetes, or urinary retention if she has symptoms of leakage, dribbling, or difficulty initiating urine stream. (GIOVANNI SAUCEDA MD) JOSE FALK December 25, 2021 17:38 GIOVANNI SAUCEDA MD December 25, 2021 19:11
[2021-12-25 17:41] LABS: CLARITY,URINE SL CLOUDY
[2021-12-25 17:44] LABS: BACTERIA,URINE FEW /HPF; RBC,URINE 0-2 /HPF
[2021-12-25 18:01] LABS: BASOPHILS # (AUTO) 0.1 10^3/uL (0.0-0.1); BASOPHILS % (AUTO) 0 % (0-10); EOSINOPHILS # (AUTO) 0.2 10^3/uL (0.0-0.3); EOSINOPHILS % (AUTO) 2 % (0-10); HEMATOCRIT 46 % (35-52); HEMOGLOBIN 14.9 g/dL (11.5-16.0); LYMPHOCYTES # (AUTO) 2.7 10^3/uL (1.0-4.0); LYMPHOCYTES % (AUTO) 23 % (12-44); MEAN CORPUSCULAR HEMOGLOBIN 28 pg (25-34); MEAN CORPUSCULAR HGB CONC 33 g/dL (32-36); MEAN CORPUSCULAR VOLUME 85 fL (80-99); MEAN PLATELET VOLUME 10.6 fL (9.0-12.2); MONOCYTES # (AUTO) 0.7 10^3/uL (0.0-1.0); MONOCYTES % (AUTO) 6 % (0-12); NEUTROPHILS % (AUTO) 69 % (42-75); PLATELET COUNT 227 10^3/uL (130-400); WHITE BLOOD COUNT 11.6 10^3/uL (4.3-11.0)
[2021-12-25 18:16] LABS: ALBUMIN 3.9 GM/DL (3.2-4.5)
[2021-12-25 18:17] LABS: POTASSIUM 3.7 MMOL/L (3.6-5.0)
[2021-12-25 18:18] LABS: CALCIUM 9.5 MG/DL (8.5-10.1)
[2021-12-25 18:19] LABS: TOTAL PROTEIN 6.4 GM/DL (6.4-8.2)
[2021-12-25 18:21] LABS: BILIRUBIN,TOTAL 2.3 MG/DL (0.1-1.0)
[2021-12-25 18:23] LABS: CREATININE SERUM 0.83 MG/DL (0.60-1.30)
--- NOTE | 2021-12-25 19:03 | Diagnostic Imaging Report ---
PROCEDURE: CT abdomen and pelvis without contrast. TECHNIQUE: Multiple contiguous axial images were obtained through the abdomen and pelvis without the use of intravenous contrast. Auto Exposure Controls were utilized during the CT exam to meet ALARA standards for radiation dose reduction. INDICATION: Urinary frequency for three weeks. COMPARISON: Correlation is made with prior CT from 07/24/2020. FINDINGS: Lung bases are clear. Liver is enlarged measuring up to 25 cm. No discrete mass is detected. Gallbladder is surgically absent. There is no biliary ductal dilatation. Pancreas and spleen are unremarkable. No adrenal mass is detected. No renal calculi or hydronephrosis is detected. No definite ureteral calculi are seen. Aorta is nonaneurysmal. Bowel loops are nonobstructed. There is diverticulosis of the sigmoid and descending colon but no evidence of acute diverticulitis. No free fluid or fluid collection is seen. There is no free air. Bladder is unremarkable. The uterus is surgically absent. IMPRESSION: 1. Hepatomegaly. 2. Uncomplicated diverticulosis. 3. No other significant abnormality is seen. No definite urinary tract calculi or obstruction is seen. Dictated by: Dictated on workstation # [id number]
[2021-12-25] MEDS ORDERED: NITROFURANTOIN 100 MG (MACROBID) CAPSULE PO ONE (19:15)
[2021-12-25] MEDS ORDERED: FLUCONAZOLE 150 MG TABLET (ED ONLY) PO ONE (19:15)
[2021-12-25] MEDS ORDERED: FLUC150T PO (19:17)
[2021-12-25] MEDS ORDERED: NITR-65 PO (19:17)
[2021-12-25 19:20] VITALS: BP 152/73
== END 2021-12-25 19:24 | disposition home or self-care (01) ==
LOC: EDUNIT# 17:17 → ER 17:21
DX: N39.0 Urinary tract infection, site not specified (principal); E11.9 Type 2 diabetes mellitus without complications
CPT/HCPCS: 36415; 74176; 80053; 81000; 85025; 87088

== ENCOUNTER 2021-12-27 08:17 | Emergency (ER) | payer MEDICARE, OTHER ==
[~2021-12-27] VITALS: Ht 167 cm; Wt 108.0 kg
[~2021-12-27 08:17] MED LIST changes: +FLUC150T PO; +NITR-65 PO
[2021-12-27] MEDS ORDERED: diphenhydrAMINE 50 MG/ML INJ (BENADRYL) IM STA (09:07)
[2021-12-27] MEDS ORDERED: oxyCODONE/APAP 10/325MG (PERCOCET 10) TABLET PO ONE (09:15)
--- NOTE | 2021-12-27 09:36 | ED General ---
General Chief Complaint: Lower Extremity Stated Complaint: RESTLESS LEG Nursing Triage Note: PT AMB TO [facility] PT CO OF RESTLESS LEGS LAST PM. STATES DIDNT STOP Source of Information: Patient Exam Limitations: No Limitations History of Present Illness Date Seen by Provider: December 27, 2021 Time Seen by Provider: 09:02 Initial Comments Here with report of restless legs. States that started last night about midnight and worsened today. She thinks it may be adverse effect of the medication. She is recently started on nitrofurantoin for possible urinary tract infection. She was previously on ciprofloxacin and had been on that for several days. She did have UA done 2 days ago which was contaminated sample but did look improved from previous. Previous UA showed no growth. Historically she has E. coli sensitive to ciprofloxacin and nitrofurantoin. She states her urinary tract symptoms are gone now but her legs just are moving a lot. Timing/Duration: 12 Hours Severity: Moderate Associated Systoms: No Chest Pain, No Fever/Chills, No Nausea/Vomiting, No Weakness Allergies and Home Medications Allergies Coded Allergies: No Known Drug Allergies (Unverified , 02/11/14) Patient Home Medication List Home Medication List Reviewed: Yes Amitriptyline HCl (Amitriptyline HCl) 75 Mg Tablet, 75 MG PO HS, (Reported) Entered as Reported by: ERICA LY on 05/31/20 1314 Apixaban (Eliquis) 5 Mg Tablet, 5 MG PO BID, (Reported) Entered as Reported by: ERICA LY on 05/31/20 1314 Ascorbate Calcium (Vitamin C) 500 Mg Tablet, 500 MG PO DAILY, (Reported) Entered as Reported by: ERICA LY on 01/29/21 1130 Carbidopa/Levodopa (Carbidopa-Levodopa 25-100 Tab) 1 Each Tablet, 1 EA PO BID, (Reported) Entered as Reported by: ERICA LY on 01/29/21 1127 Celecoxib (Celebrex) 200 Mg Capsule, 200 MG PO DAILY, (Reported) Entered as Reported by: JULIANA LY on 11/08/20 1054 Cephalexin (Cephalexin) 500 Mg Tablet, 500 MG PO BID Prescribed by: DERICK OKNG on 12/16/211810 Cholecalciferol (Vitamin D3) (Vitamin D3) 25 Mcg Tablet, 25 MCG PO DAILY, (Reported) Entered as Reported by: ERICA LY on 11/14/20 1644 Ciprofloxacin HCl (Ciprofloxacin HCl) 250 Mg Tablet, 250 MG PO Q12H Prescribed by: NASRA VELASQUEZ on 12/18/21 1107 Cyanocobalamin (Cyanocobalamin Injection) 1,000 Mcg/Ml Inj, 1,000 MCG IM MONTLY, (Reported) Entered as Reported by: ERICA LY on 11/14/20 1651 Cyanocobalamin (Vitamin B-12) (Vitamin B-12) 1,000 Mcg Tablet, 1,000 MCG PO DAILY, (Reported) Entered as Reported by: ERICA LY on 11/14/20 1644 Docusate Sodium (Docusate Sodium) 100 Mg Capsule, 100-200 MG PO TID PRN for CONSTIPATION-1ST LINE, (Reported) Entered as Reported by: ERICA LY on 11/14/20 164 Estradiol (Estradiol) 42.5 Gm Cream.appl, 1 APPLIC VG UD PRN for DRYNESS/ITCHING, (Reported) Entered as Reported by: JULIANA LY on 11/08/20 1054 Ferrous Sulfate (Iron) 325 Mg Tablet, 325 MG PO DAILY, (Reported) Entered as Reported by: ERICA LY on 05/31/19 0903 Fluconazole (Fluconazole) 150 Mg Tablet, 150 MG PO KIM CADE, (Reported) Entered as Reported by: ERICA LY on 11/14/20 164 Fluconazole (Diflucan) 150 Mg Tablet, 150 MG PO ONCE Prescribed by: DERICK KONG on 12/25/21 1917 Hydrochlorothiazide (Hydrochlorothiazide) 25 Mg Tablet, 25 MG PO DAILY, (Reported) Entered as Reported by: MARISOL SIDDIQUI on 03/30/19 1630 Hydrocodone/Ibuprofen (Hydrocodone-Ibuprofen 7.5-200) 1 Each Tablet, 1 EA PO Q6H PRN for PAIN-MODERATE (5-7), (Reported) Entered as Reported by: ERICA LY on 01/29/21 1127 Insulin Degludec (Tresiba Flextouch U-100) 100 Unit/1 Ml Insuln.pen, 25 UNIT SQ DAILY Prescribed by: DANICA HERRING on 01/30/21 1508 Lactobacillus Combo No.10 (Probiotic) 1 Each Capsule, 1 CAP PO DAILY, (Reported) Entered as Reported by: MARISOL SIDDIQUI on 03/30/19 1630 Nitrofurantoin Macrocrystal (Nitrofurantoin) 100 Mg Capsule, 100 MG PO DAILY, (Reported) Entered as Reported by: ERICA LY on 11/14/20 164 Nitrofurantoin Monohyd/M-Cryst (Macrobid 100 mg Capsule) 100 Mg Capsule, 1 TAB PO BID Prescribed by: DERICK KONG on 12/25/21 191 Pantoprazole Sodium (Pantoprazole Sodium) 40 Mg Tablet.dr, 40 MG PO DAILY, (Reported) Entered as Reported by: MARISOL SIDDIQUI on 03/30/19 1630 Phenazopyridine HCl (Pyridium) 200 Mg Tablet, 1 TAB PO TID Prescribed by: DERICK KONG on 12/16/21 181 Polyethylene Glycol 3350 (Miralax) 17 Gm Powd.pack, 17 GM PO TID PRN for CONSTIPATION-2ND LINE, (Reported) Entered as Reported by: ERICA LY on 11/14/20 164 Pramipexole Di-HCl (Pramipexole Dihydrochloride) 1 Mg Tablet, 1 MG PO BID, (R eported) Entered as Reported by: ERICA LY on 05/31/20 1314 Simvastatin (Simvastatin) 40 Mg Tablet, 40 MG PO HS, (Reported) Entered as Reported by: JULIANA LY on 11/08/20 1054 Sitagliptin Phosphate (Januvia) 100 Mg Tablet, 100 MG PO DAILY, (Reported) Entered as Reported by: ERICA LY on 11/14/20 1651 Triamcinolone Acet (Triamcinolone Acetonide 0.1% Cream) 15 Gm Cr, 1 APPLIC TOP TID PRN for RASH, (Reported) Entered as Reported by: ERICA LY on 11/14/20 1644 Vitamin E (Vitamin E) 1,000 Unit Capsule, 1,000 UNIT PO DAILY, (Reported) Entered as Reported by: ERICA LY on 11/14/20 1644 Review of Systems Review of Systems Constitutional: see HPI; No chills, No fever Gastrointestinal: No nausea, No vomiting Genitourinary: No dysuria, No frequency Musculoskeletal: see HPI, muscle pain; No muscle weakness Psychiatric/Neurological: Anxiety; Denies Weakness Past Qptgked-Nilroh-Exxmaq Hx Patient Social History Tobacco Use?: No Smoking Status: Never a Smoker Alcohol Use?: Yes Alcohol Frequency: Once in a while Immunizations Up To Date Tetanus Booster (TDap): More than 5yrs Seasonal Allergies Seasonal Allergies: No Past Medical History Surgery/Hospitalization HX: Brain surgery, 3 c-sections, bilateral knee, hysterectomy History of diabetes Surgeries: Yes (R knee replaced x2, port, c/s x3, hernia x5, rotator cuff, left wrist) Abdominal, Appendectomy, Hysterectomy, Joint Replacement, Neurological, Orthopedic, Thyroidectomy, Tonsillectomy Respiratory: Yes Asthma, Pneumonia, Chronic Bronchitis, Pulmonary Embolism, Sleep Apnea Currently Using CPAP: Yes Cardiac: Yes High Cholesterol Neurological: Yes (CHIARI MALFORMATION--SURGICAL REPAIR; RESTLESS LEG SYNDROME, Tremors) Reproductive Disorders: No Female Reproductive Disorders: Denies 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 CHRONIC ABDOMINAL PAIN) Chronic Constipation, Chronic Diarrhea Musculoskeletal: Yes Arthritis, Chronic Back Pain Endocrine: Yes (BENIGN MASS LEFT THYROID REMOVED 01/01/2013) Diabetes, Non-Insulin dep HEENT: Yes Cataract Loss of Vision: Denies Hearing Impairment: Denies Cancer: No Psychosocial: Yes Anxiety, Depression Integumentary: No Blood Disorders: No Adverse Reaction/Blood Tranf: No Family Medical History Cancer 03 FATHER (PANCREATIC, PASSED AT 65 FROM THIS) Cataract 03 MOTHER Dementia 03 MOTHER Family history: Arthritis 03 MOTHER Family history: Cardiovascular disease 03 MOTHER (HIGH CHOLESTEROL, BALOON ARTERIES 2 TIMES) Hearing loss 03 MOTHER Hypercholesterolemia 03 MOTHER Cancer Physical Exam Vital Signs Vital Signs - First Documented 12/27/21 08:23 Temp 35.7 Pulse 79 Resp 18 B/P (MAP) 157/75 (102) Pulse Ox 94 O2 Delivery Room Air Capillary Refill : Less Than 3 Seconds Height, Weight, BMI Height: 5'4.00" Weight: 232lbs. 0.0oz. 105.033890lk; 38.00 BMI Method:Stated General Appearance: WD/WN, Mild Distress (Moving legs) Respiratory: Lungs Clear, Normal Breath Sounds Cardiovascular: Regular Rate, Rhythm, No Murmur Extremity: Normal Range of Motion, Non Tender, Other (Does appear to have restless legs bilateral) Neurologic/Psychiatric: Alert, Oriented x3 Skin: Normal Color, Warm/Dry Progress/Results/Core Measures Suspected Sepsis SIRS Temperature: Pulse: 79 Respiratory Rate: 18 Blood Pressure 157 /75 Mean: 102 Results/Orders My Orders Orders - DAVID SINGH MD Diphenhydramine Injection (Benadryl Inje (12/27/21 09:07) Oxycodone/Acet 10/325mg Tablet (Percocet (12/27/21 09:15) Vital Signs/I&O 12/27/21 08:23 Temp 35.7 Pulse 79 Resp 18 B/P (MAP) 157/75 (102) Pulse Ox 94 O2 Delivery Room Air Capillary Refill : Less Than 3 Seconds Blood Pressure Mean: 102 Progress Note : Progress Note Seen and evaluated. Benadryl 50 mg IM and Percocet 10/325 1 tab p.o. Monitor patient. 0935: Overall doing better. Discharged home with return precautions. Patient verbalized understanding instructions and agreement with plan. We will stop the nitrofurantoin antibiotic as I do not believe she needs that anymore. I did review previous UA, urine cultures and CT scan done recently. Departure Impression Primary Impression: Restless leg syndrome Additional Impression: Adverse effects of medication Qualified Codes: T50.905A - Adverse effect of unspecified drugs, medicaments and biological substances, initial encounter Disposition: 01 HOME, SELF-CARE Condition: Improved Departure-Patient Inst. Decision time for Depature: 09:36 Referrals: SABIHA MAXWELL MD (PCP/Family) Primary Care Physician Patient Instructions: Adverse Drug Reactions, Adult ED, Restless Legs Syndrome (DC) Add. Discharge Instructions: All discharge instructions reviewed with patient and/or family. Voiced understanding. You may take Benadryl/diphenhydramine 2 tablets every 6-8 hours as needed for restless leg syndrome today. Continue other medications as prescribed except to stop the antibiotic that was recently prescribed (nitrofurantoin, brand-name Macrobid) as I do not believe you have further urinary tract concerns currently and this may be the cause of the restless leg syndrome. Follow-up with your doctor in a few days for recheck. Return for worse pain, fever, vomiting, weakness, breathing problems or other concerns as needed. DAVID SINGH MD December 27, 2021 09:36
[2021-12-27 09:54] VITALS: BP 157/75
[2021-12-28] MEDS ORDERED: ROPI0.253 PO (15:05)
== END 2021-12-27 09:54 | disposition home or self-care (01) ==
LOC: EDUNIT# 08:17 → ER 08:18
DX: G25.81 Restless legs syndrome (principal); T37.8X5A Adverse effect of other specified systemic anti-infectives and antiparasitics, initial encounter
CPT/HCPCS: 99283

== ENCOUNTER 2021-12-28 14:23 | Emergency (ER) | payer MEDICARE, OTHER ==
[~2021-12-28] VITALS: Ht 167.6 cm; Wt 108.8 kg
[2021-12-28] MEDS ORDERED: diphenhydrAMINE 50 MG/ML INJ (BENADRYL) IM ONE (15:00)
[2021-12-28] MEDS ORDERED: ROPI0.253 PO (15:05)
--- NOTE | 2021-12-28 15:07 | ED General ---
General Chief Complaint: General Problems/Pain Stated Complaint: LEGS SHAKING - POSS ALLERGIC REACTION TO MED Nursing Triage Note: pt ambulatory to room. pt states she started a new medication yesterday for restless leg syndrome. pt states the shaking in her legs has worsened since starting this medication yesterday. pt states she has been seen here 2 other times this week as well for UTI Source of Information: Patient Exam Limitations: No Limitations (JETHRO RICE APRN) History of Present Illness Date Seen by Provider: December 28, 2021 Time Seen by Provider: 15:01 Initial Comments To ER with c/o ongoing if not slightly worsened bilateral restless legs. Was seen here at beginning of the week and dx with uti. Given shot of rocephin and macrobid. Was back yesterday with worsening restless legs and given benadryl and percocet. Comes back today with persistently bothersome restless legs. Timing/Duration: 2-3 Days Severity: Moderate Associated Systoms: Denies Symptoms (JETHRO RICE APRN) Allergies and Home Medications Allergies Coded Allergies: No Known Drug Allergies (Unverified , 02/11/14) Patient Home Medication List Home Medication List Reviewed: Yes (JETHRO RICE APRN) Amitriptyline HCl (Amitriptyline HCl) 75 Mg Tablet, 75 MG PO HS, (Reported) Entered as Reported by: ERICA LY on 05/31/20 1314 Apixaban (Eliquis) 5 Mg Tablet, 5 MG PO BID, (Reported) Entered as Reported by: ERICA LY on 05/31/20 1314 Ascorbate Calcium (Vitamin C) 500 Mg Tablet, 500 MG PO DAILY, (Reported) Entered as Reported by: ERICA LY on 01/29/21 1130 Carbidopa/Levodopa (Carbidopa-Levodopa 25-100 Tab) 1 Each Tablet, 1 EA PO BID, (Reported) Entered as Reported by: ERICA LY on 01/29/21 1127 Celecoxib (Celebrex) 200 Mg Capsule, 200 MG PO DAILY, (Reported) Entered as Reported by: JULIANA LY on 11/08/20 1054 Cephalexin (Cephalexin) 500 Mg Tablet, 500 MG PO BID Prescribed by: DERICK KONG on 12/16/21 1811 Cholecalciferol (Vitamin D3) (Vitamin D3) 25 Mcg Tablet, 25 MCG PO DAILY, (Reported) Entered as Reported by: ERICA LY on 11/14/20 1644 Ciprofloxacin HCl (Ciprofloxacin HCl) 250 Mg Tablet, 250 MG PO Q12H Prescribed by: NASRA VELASQUEZ on 12/18/21 1107 Cyanocobalamin (Cyanocobalamin Injection) 1,000 Mcg/Ml Inj, 1,000 MCG IM MONTLY, (Reported) Entered as Reported by: ERICA LY on 11/14/20 1651 Cyanocobalamin (Vitamin B-12) (Vitamin B-12) 1,000 Mcg Tablet, 1,000 MCG PO DAILY, (Reported) Entered as Reported by: ERICA LY on 11/14/20 1644 Docusate Sodium (Docusate Sodium) 100 Mg Capsule, 100-200 MG PO TID PRN for CONSTIPATION-1ST LINE, (Reported) Entered as Reported by: ERICA LY on 11/14/20 164 Estradiol (Estradiol) 42.5 Gm Cream.appl, 1 APPLIC VG UD PRN for DRYNESS/ITCHING, (Reported) Entered as Reported by: JULIANA LY on 11/08/20 1054 Ferrous Sulfate (Iron) 325 Mg Tablet, 325 MG PO DAILY, (Reported) Entered as Reported by: ERICA LY on 05/31/19 0903 Fluconazole (Fluconazole) 150 Mg Tablet, 150 MG PO KIM CADE, (Reported) Entered as Reported by: ERICA LY on 11/14/20 1644 Fluconazole (Diflucan) 150 Mg Tablet, 150 MG PO ONCE Prescribed by: DERICK KONG on 12/25/21 1917 Hydrochlorothiazide (Hydrochlorothiazide) 25 Mg Tablet, 25 MG PO DAILY, (Reported) Entered as Reported by: MARISOL SIDDIQUI on 03/30/19 1630 Hydrocodone/Ibuprofen (Hydrocodone-Ibuprofen 7.5-200) 1 Each Tablet, 1 EA PO Q6H PRN for PAIN-MODERATE (5-7), (Reported) Entered as Reported by: ERICA LY on 01/29/21 1127 Insulin Degludec (Tresiba Flextouch U-100) 100 Unit/1 Ml Insuln.pen, 25 UNIT SQ DAILY Prescribed by: DANICA HERRING on 01/30/21 1508 Lactobacillus Combo No.10 (Probiotic) 1 Each Capsule, 1 CAP PO DAILY, (Reported) Entered as Reported by: MARISOL SIDDIQUI on 03/30/19 1630 Nitrofurantoin Macrocrystal (Nitrofurantoin) 100 Mg Capsule, 100 MG PO DAILY, (Reported) Entered as Reported by: ERICA LY on 11/14/20 1644 Nitrofurantoin Monohyd/M-Cryst (Macrobid 100 mg Capsule) 100 Mg Capsule, 1 TAB PO BID Prescribed by: DERICK KONG on 12/25/21 1917 Pantoprazole Sodium (Pantoprazole Sodium) 40 Mg Tablet.dr, 40 MG PO DAILY, (Reported) Entered as Reported by: MARISOL SIDDIQUI on 03/30/19 1630 Phenazopyridine HCl (Pyridium) 200 Mg Tablet, 1 TAB PO TID Prescribed by: DERICK KONG on 12/16/21 181 Polyethylene Glycol 3350 (Miralax) 17 Gm Powd.pack, 17 GM PO TID PRN for CONSTIPATION-2ND LINE, (Reported) Entered as Reported by: ERICA LY on 11/14/20 1644 Pramipexole Di-HCl (Pramipexole Dihydrochloride) 1 Mg Tablet, 1 MG PO BID, (Reported) Entered as Reported by: ERICA LY on 05/31/20 1314 Ropinirole HCl (Ropinirole HCl) 0.25 Mg Tablet, 0.25 MG PO TID Prescribed by: JETHRO RICE on 12/28/21 1505 Simvastatin (Simvastatin) 40 Mg Tablet, 40 MG PO HS, (Reported) Entered as Reported by: JULIANA LY on 11/08/20 1054 Sitagliptin Phosphate (Januvia) 100 Mg Tablet, 100 MG PO DAILY, (Reported) Entered as Reported by: ERICA LY on 11/14/20 1651 Triamcinolone Acet (Triamcinolone Acetonide 0.1% Cream) 15 Gm Cr, 1 APPLIC TOP TID PRN for RASH, (Reported) Entered as Reported by: ERICA LY on 11/14/20 1644 Vitamin E (Vitamin E) 1,000 Unit Capsule, 1,000 UNIT PO DAILY, (Reported) Entered as Reported by: ERICA LY on 11/14/20 8016 Review of Systems Review of Systems Constitutional: see HPI EENTM: see HPI Respiratory: no symptoms reported Cardiovascular: no symptoms reported Genitourinary: no symptoms reported Musculoskeletal: see HPI Skin: no symptoms reported Psychiatric/Neurological: No Symptoms Reported Hematologic/Lymphatic: No Symptoms Reported (JETHRO RICE APRN) Past Ogusjow-Vyiuoq-Oekblu Hx Immunizations Up To Date Tetanus Booster (TDap): More than 5yrs (JETHRO RICE APRN) Seasonal Allergies Seasonal Allergies: No (JETHRO RICE APRN) Past Medical History Surgery/Hospitalization HX: Brain surgery, 3 c-sections, bilateral knee, hysterectomy History of diabetes Surgeries: Yes (R knee replaced x2, port, c/s x3, hernia x5, rotator cuff, left wrist) Abdominal, Appendectomy, Hysterectomy, Joint Replacement, Neurological, Orthopedic, Thyroidectomy, Tonsillectomy Respiratory: Yes Asthma, Pneumonia, Chronic Bronchitis, Pulmonary Embolism, Sleep Apnea Currently Using CPAP: Yes Cardiac: Yes High Cholesterol Neurological: Yes (CHIARI MALFORMATION--SURGICAL REPAIR; RESTLESS LEG SYNDROME, Tremors) Reproductive Disorders: No Female Reproductive Disorders: Denies 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 CHRONIC ABDOMINAL PAIN) Chronic Constipation, Chronic Diarrhea Musculoskeletal: Yes Arthritis, Chronic Back Pain Endocrine: Yes (BENIGN MASS LEFT THYROID REMOVED 01/01/2013) Diabetes, Non-Insulin dep HEENT: Yes Cataract Loss of Vision: Denies Hearing Impairment: Denies Cancer: No Psychosocial: Yes Anxiety, Depression Integumentary: No Blood Disorders: No Adverse Reaction/Blood Tranf: No (JETHRO RICE APRN) Family Medical History Cancer 03 FATHER (PANCREATIC, PASSED AT 65 FROM THIS) Cataract 03 MOTHER Dementia 03 MOTHER Family history: Arthritis 03 MOTHER Family history: Cardiovascular disease 03 MOTHER (HIGH CHOLESTEROL, BALOON ARTERIES 2 TIMES) Hearing loss 03 MOTHER Hypercholesterolemia 03 MOTHER Cancer (JETHRO RICE APRN) Physical Exam Vital Signs Vital Signs - First Documented 12/28/21 14:53 Temp 36.8 Pulse 92 Resp 20 Pulse Ox 97 (MINENASREEN K DO) Vital Signs Capillary Refill : (JETHRO RICE APRN) Height, Weight, BMI Height: 5'4.00" Weight: 232lbs. 0.0oz. 105.784072te; 38.00 BMI Method:Stated General Appearance: No Apparent Distress, WD/WN, Other (walks unassisted to room 10) Eyes: Bilateral Eye Normal Inspection, Bilateral Eye PERRL, Bilateral Eye EOMI Neck: Full Range of Motion, Normal Inspection Respiratory: No Accessory Muscle Use, No Respiratory Distress Cardiovascular: Regular Rate, Rhythm, Normal Peripheral Pulses Gastrointestinal: Normal Bowel Sounds, Non Tender, Soft Extremity: Normal Capillary Refill, Normal Inspection Neurologic/Psychiatric: Alert, Oriented x3 Skin: Normal Color, Warm/Dry (JETHRO RICE APRN) Progress/Results/Core Measures Suspected Sepsis SIRS Temperature: Pulse: 92 Respiratory Rate: 20 Blood Pressure / Mean: (JETHRO RICE APRN) Results/Orders Vital Signs/I&O 12/28/21 14:53 Temp 36.8 Pulse 92 Resp 20 B/P (MAP) Pulse Ox 97 (NASREEN BLOUNT DO) Vital Signs/I&O Capillary Refill : (JETHRO RICE APRN) Departure Impression Primary Impression: Restless leg syndrome Disposition: 01 HOME, SELF-CARE Condition: Stable Departure-Patient Inst. Decision time for Depature: 15:04 (JETHRO RICE APRN) Referrals: SABIHA MAXWELL MD (PCP/Family) Primary Care Physician Patient Instructions: Restless Legs Syndrome Scripts Ropinirole HCl (Ropinirole HCl) 0.25 Mg Tablet 0.25 MG PO TID, #15 TAB Prov: JETHRO RICE APRN 12/28/21 ATTENDING PHYSICIAN NOTE: I WAS PHYSICALLY PRESENT ER PHYSICIAN, BUT I WAS NOT INVOLVED IN ANY DECISION MAKING OR ANY CARE OF THIS PATIENT. (NASREEN BLOUNT DO) JETHRO RICE APRN December 28, 2021 15:07 NASREEN BLOUNT DO December 29, 2021 06:16
== END 2021-12-28 15:16 | disposition home or self-care (01) ==
LOC: EDUNIT# 14:23 → ER 14:24
DX: G25.81 Restless legs syndrome (principal)
CPT/HCPCS: 99284

== ENCOUNTER 2021-12-31 19:43 | Emergency (ER) | payer MEDICARE, OTHER ==
[~2021-12-31] VITALS: Ht 167.6 cm; Wt 108.8 kg
[~2021-12-31 19:43] MED LIST changes: +ROPI0.253 PO
[2021-12-31 19:50] VITALS: BP 143/72
--- NOTE | 2021-12-31 19:59 | ED General ---
General Chief Complaint: General Problems/Pain Stated Complaint: TREMORS Source of Information: Patient Exam Limitations: No Limitations History of Present Illness Date Seen by Provider: December 31, 2021 Time Seen by Provider: 19:56 Initial Comments To ER by with c/o restless legs. This is her 3rd ER visit in a week for this. I gave her and rx for requip three days ago for this. states she should've had two of thses but "was out of her head" so he counted the bottle and there were 12 missing. Subsequently he hasnt given any more. She has also been taking benadryl every 6 hours. states she was was on something else about a month ago for restless legs but he cant remember what. Timing/Duration: 1-2 Days, Constant Severity: Moderate Associated Systoms: Denies Symptoms Allergies and Home Medications Allergies Coded Allergies: No Known Drug Allergies (Unverified , 02/11/14) Patient Home Medication List Home Medication List Reviewed: Yes Amitriptyline HCl (Amitriptyline HCl) 75 Mg Tablet, 75 MG PO HS, (Reported) Entered as Reported by: ERICA LY on 05/31/20 1314 Apixaban (Eliquis) 5 Mg Tablet, 5 MG PO BID, (Reported) Entered as Reported by: ERICA LY on 05/31/20 1314 Ascorbate Calcium (Vitamin C) 500 Mg Tablet, 500 MG PO DAILY, (Reported) Entered as Reported by: ERICA LY on 01/29/21 1130 Carbidopa/Levodopa (Carbidopa-Levodopa 25-100 Tab) 1 Each Tablet, 1 EA PO BID, (Reported) Entered as Reported by: ERICA LY on 01/29/21 1127 Celecoxib (Celebrex) 200 Mg Capsule, 200 MG PO DAILY, (Reported) Entered as Reported by: JULIANA LY on 11/08/20 1054 Cephalexin (Cephalexin) 500 Mg Tablet, 500 MG PO BID Prescribed by: DERICK KONG on 12/16/21 1811 Cholecalciferol (Vitamin D3) (Vitamin D3) 25 Mcg Tablet, 25 MCG PO DAILY, (Reported) Entered as Reported by: ERICA LY on 11/14/20 1644 Ciprofloxacin HCl (Ciprofloxacin HCl) 250 Mg Tablet, 250 MG PO Q12H Prescribed by: NASRA VELASQUEZ on 12/18/21 1107 Cyanocobalamin (Cyanocobalamin Injection) 1,000 Mcg/Ml Inj, 1,000 MCG IM MONTLY, (Reported) Entered as Reported by: ERICA LY on 11/14/20 1651 Cyanocobalamin (Vitamin B-12) (Vitamin B-12) 1,000 Mcg Tablet, 1,000 MCG PO DAILY, (Reported) Entered as Reported by: ERICA LY on 11/14/20 1644 Docusate Sodium (Docusate Sodium) 100 Mg Capsule, 100-200 MG PO TID PRN for CONSTIPATION-1ST LINE, (Reported) Entered as Reported by: ERICA LY on 11/14/20 1644 Estradiol (Estradiol) 42.5 Gm Cream.appl, 1 APPLIC VG UD PRN for DRYNESS/ITCHING, (Reported) Entered as Reported by: JULIANA YL on 11/08/20 1054 Ferrous Sulfate (Iron) 325 Mg Tablet, 325 MG PO DAILY, (Reported) Entered as Reported by: ERICA LY on 05/31/19 0903 Fluconazole (Fluconazole) 150 Mg Tablet, 150 MG PO [facility], (Reported) Entered as Reported by: ERICA LY on 11/14/20 1644 Fluconazole (Diflucan) 150 Mg Tablet, 150 MG PO ONCE Prescribed by: DERICK KONG on 12/25/21 1917 Hydrochlorothiazide (Hydrochlorothiazide) 25 Mg Tablet, 25 MG PO DAILY, (Reported) Entered as Reported by: MARISOL SIDDIQUI on 03/30/19 1630 Hydrocodone/Ibuprofen (Hydrocodone-Ibuprofen 7.5-200) 1 Each Tablet, 1 EA PO Q6H PRN for PAIN-MODERATE (5-7), (Reported) Entered as Reported by: ERICA LY on 01/29/21 1127 Insulin Degludec (Tresiba Flextouch U-100) 100 Unit/1 Ml Insuln.pen, 25 UNIT SQ DAILY Prescribed by: DANICA HERRING on 01/30/21 1508 Lactobacillus Combo No.10 (Probiotic) 1 Each Capsule, 1 CAP PO DAILY, (Reported) Entered as Reported by: MARISOL SIDDIQUI on 03/30/19 1630 Nitrofurantoin Macrocrystal (Nitrofurantoin) 100 Mg Capsule, 100 MG PO DAILY, (Reported) Entered as Reported by: ERICA LY on 11/14/20 1644 Nitrofurantoin Monohyd/M-Cryst (Macrobid 100 mg Capsule) 100 Mg Capsule, 1 TAB PO BID Prescribed by: DERICK KONG on 12/25/21 191 Pantoprazole Sodium (Pantoprazole Sodium) 40 Mg Tablet.dr, 40 MG PO DAILY, (Reported) Entered as Reported by: MARISOL SIDDIQUI on 03/30/19 1630 Phenazopyridine HCl (Pyridium) 200 Mg Tablet, 1 TAB PO TID Prescribed by: DERICK KONG on 12/16/21 181 Polyethylene Glycol 3350 (Miralax) 17 Gm Powd.pack, 17 GM PO TID PRN for CONSTIPATION-2ND LINE, (Reported) Entered as Reported by: ERICA LY on 11/14/20 164 Pramipexole Di-HCl (Pramipexole Dihydrochloride) 1 Mg Tablet, 1 MG PO BID, (Reported) Entered as Reported by: ERICA LY on 05/31/20 1314 Pramipexole Di-HCl (Mirapex) 1 Mg Tablet, 0.5 MG PO HS Prescribed by: JETHRO RICE on 12/31/212008 Ropinirole HCl (Ropinirole HCl) 0.25 Mg Tablet, 0.25 MG PO TID Prescribed by: JETHRO RICE on 12/28/21 1505 Simvastatin (Simvastatin) 40 Mg Tablet, 40 MG PO HS, (Reported) Entered as Reported by: JULIANA LY on 11/08/20 1054 Sitagliptin Phosphate (Januvia) 100 Mg Tablet, 100 MG PO DAILY, (Reported) Entered as Reported by: ERICA LY on 11/14/20 165 Triamcinolone Acet (Triamcinolone Acetonide 0.1% Cream) 15 Gm Cr, 1 APPLIC TOP TID PRN for RASH, (Reported) Entered as Reported by: ERICA LY on 11/14/20 164 Vitamin E (Vitamin E) 1,000 Unit Capsule, 1,000 UNIT PO DAILY, (Reported) Entered as Reported by: ERICA LY on 11/14/20 1644 Review of Systems Review of Systems Constitutional: see HPI EENTM: see HPI Respiratory: no symptoms reported Cardiovascular: no symptoms reported Genitourinary: no symptoms reported Musculoskeletal: no symptoms reported Skin: no symptoms reported Psychiatric/Neurological: No Symptoms Reported Hematologic/Lymphatic: No Symptoms Reported Past Utifejs-Xdsrjf-Mcxllk Hx Immunizations Up To Date Tetanus Booster (TDap): More than 5yrs Seasonal Allergies Seasonal Allergies: No Past Medical History Surgery/Hospitalization HX: Brain surgery, 3 c-sections, bilateral knee, hysterectomy History of diabetes Surgeries: Yes (R knee replaced x2, port, c/s x3, hernia x5, rotator cuff, left wrist) Abdominal, Appendectomy, Hysterectomy, Joint Replacement, Neurological, Orthopedic, Thyroidectomy, Tonsillectomy Respiratory: Yes Asthma, Pneumonia, Chronic Bronchitis, Pulmonary Embolism, Sleep Apnea Currently Using CPAP: Yes Cardiac: Yes High Cholesterol Neurological: Yes (CHIARI MALFORMATION--SURGICAL REPAIR; RESTLESS LEG SYNDROME, Tremors) Reproductive Disorders: No Female Reproductive Disorders: Denies 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 CHRONIC ABDOMINAL PAIN) Chronic Constipation, Chronic Diarrhea Musculoskeletal: Yes Arthritis, Chronic Back Pain Endocrine: Yes (BENIGN MASS LEFT THYROID REMOVED 01/01/2013) Diabetes, Non-Insulin dep HEENT: Yes Cataract Loss of Vision: Denies Hearing Impairment: Denies Cancer: No Psychosocial: Yes Anxiety, Depression Integumentary: No Blood Disorders: No Adverse Reaction/Blood Tranf: No Family Medical History Cancer 03 FATHER (PANCREATIC, PASSED AT 65 FROM THIS) Cataract 03 MOTHER Dementia 03 MOTHER Family history: Arthritis 03 MOTHER Family history: Cardiovascular disease 03 MOTHER (HIGH CHOLESTEROL, BALOON ARTERIES 2 TIMES) Hearing loss 03 MOTHER Hypercholesterolemia 03 MOTHER Cancer Physical Exam Vital Signs Vital Signs - First Documented 12/31/21 19:50 Temp 36.8 Pulse 89 Resp 16 B/P (MAP) 143/72 (95) Pulse Ox 95 O2 Delivery Room Air Capillary Refill : Height, Weight, BMI Height: 5'4.00" Weight: 232lbs. 0.0oz. [id number]; 38.00 BMI Method:Stated General Appearance: No Apparent Distress, WD/WN Eyes: Bilateral Eye Normal Inspection, Bilateral Eye PERRL, Bilateral Eye Abnormal EOM Neck: Full Range of Motion, Normal Inspection Respiratory: Normal Breath Sounds, No Accessory Muscle Use, No Respiratory Distress Cardiovascular: Regular Rate, Rhythm, Normal Peripheral Pulses Gastrointestinal: Normal Bowel Sounds, Non Tender, Soft Extremity: Normal Capillary Refill, Normal Inspection Neurologic/Psychiatric: Alert, Oriented x3 Skin: Normal Color Progress/Results/Core Measures Suspected Sepsis SIRS Temperature: Pulse: Respiratory Rate: Laboratory Tests 12/31/21 20:01: White Blood Count 11.1H Blood Pressure / Mean: Laboratory Tests 12/31/21 20:01: Creatinine 0.97, Platelet Count 209, Total Bilirubin 1.4H Results/Orders Lab Results Laboratory Tests Test 12/31/21 20:01 Range/Units White Blood Count 11.1 H 4.3-11.0 10^3/uL Red Blood Count 5.02 3.80-5.11 10^6/uL Hemoglobin 14.0 11.5-16.0 g/dL Hematocrit 43 35-52 % Mean Corpuscular Volume 85 80-99 fL Mean Corpuscular Hemoglobin 28 25-34 pg Mean Corpuscular Hemoglobin Concent 33 32-36 g/dL Red Cell Distribution Width 14.5 10.0-14.5 % Platelet Count 209 130-400 10^3/uL Mean Platelet Volume 10.3 9.0-12.2 fL Immature Granulocyte % (Auto) 1 % Neutrophils (%) (Auto) 71 42-75 % Lymphocytes (%) (Auto) 19 12-44 % Monocytes (%) (Auto) 7 0-12 % Eosinophils (%) (Auto) 2 0-10 % Basophils (%) (Auto) 0 0-10 % Neutrophils # (Auto) 7.9 H 1.8-7.8 10^3/uL Lymphocytes # (Auto) 2.2 1.0-4.0 10^3/uL Monocytes # (Auto) 0.8 0.0-1.0 10^3/uL Eosinophils # (Auto) 0.2 0.0-0.3 10^3/uL Basophils # (Auto) 0.1 0.0-0.1 10^3/uL Immature Granulocyte # (Auto) 0.1 0.0-0.1 10^3/uL Sodium Level 134 L 135-145 MMOL/L Potassium Level 4.1 3.6-5.0 MMOL/L Chloride Level 99 98-107 MMOL/L Carbon Dioxide Level 24 21-32 MMOL/L Anion Gap 11 5-14 MMOL/L Blood Urea Nitrogen 14 7-18 MG/DL Creatinine 0.97 0.60-1.30 MG/DL Estimat Glomerular Filtration Rate 63 BUN/Creatinine Ratio 14 Glucose Level 305 H 70-105 MG/DL Calcium Level 9.7 8.5-10.1 MG/DL Corrected Calcium 9.9 8.5-10.1 MG/DL Total Bilirubin 1.4 H 0.1-1.0 MG/DL Aspartate Amino Transf (AST/SGOT) 11 5-34 U/L Alanine Aminotransferase (ALT/SGPT) 12 0-55 U/L Alkaline Phosphatase 103 40-136 U/L Total Protein 6.5 6.4-8.2 GM/DL Albumin 3.8 3.2-4.5 GM/DL Thyroid Stimulating Hormone (TSH) 2.73 0.35-4.94 UIU/ML My Orders Orders - JETHRO RICE APRN Cbc With Automated Diff (12/31/21 19:56) Comprehensive Metabolic Panel (12/31/21 19:56) Thyroid Stimulating Hormone (12/31/21 19:56) Pramipexole Tablet (Mirapex Tablet) (12/31/21 20:15) Free T4 (Free Thyroxine) (12/31/21 20:07) Medications Given in ED Current Medications Medications Dose Ordered Sig/Eloise Route Start Time Stop Time Status Last Admin Dose Admin Pramipexole 1 mg ONCE ONCE PO 12/31/21 20:15 12/31/21 20:16 DC 12/31/21 20:20 0.5 MG Vital Signs/I&O 12/31/21 19:50 Temp 36.8 Pulse 89 Resp 16 B/P (MAP) 143/72 (95) Pulse Ox 95 O2 Delivery Room Air Capillary Refill : Departure Communication (Admissions) 2100-Legs are still and not shaking at this time until I pointed that out to her that her legs were still and she replies "not theyre not" and began bouncing them again. Impression Primary Impression: Restless leg syndrome Disposition: HOME, SELF-CARE Condition: Stable Departure-Patient Inst. Decision time for Depature: 20:01 Referrals: SABIHA MAXWELL MD (PCP/Family) Primary Care Physician Patient Instructions: Restless Legs Syndrome Add. Discharge Instructions: All discharge instructions reviewed with patient and/or family. Voiced understanding. Scripts Pramipexole Di-HCl (Mirapex) 1 Mg Tablet 0.5 MG PO HS, #10 TAB Prov: JETHRO RICE APRN 12/31/21 JETHRO RICE APRN December 31, 2021 19:58
[2021-12-31] MEDS ORDERED: PRAM1TAB2 PO ×2 (20:03→20:09)
[2021-12-31 20:10] LABS: BASOPHILS # (AUTO) 0.1 10^3/uL (0.0-0.1); BASOPHILS % (AUTO) 0 % (0-10); EOSINOPHILS # (AUTO) 0.2 10^3/uL (0.0-0.3); EOSINOPHILS % (AUTO) 2 % (0-10); HEMATOCRIT 43 % (35-52); LYMPHOCYTES # (AUTO) 2.2 10^3/uL (1.0-4.0); LYMPHOCYTES % (AUTO) 19 % (12-44); MEAN CORPUSCULAR HEMOGLOBIN 28 pg (25-34); MEAN CORPUSCULAR HGB CONC 33 g/dL (32-36); MEAN CORPUSCULAR VOLUME 85 fL (80-99); MEAN PLATELET VOLUME 10.3 fL (9.0-12.2); MONOCYTES # (AUTO) 0.8 10^3/uL (0.0-1.0); MONOCYTES % (AUTO) 7 % (0-12); NEUTROPHILS # (AUTO) 7.9 10^3/uL (1.8-7.8); NEUTROPHILS % (AUTO) 71 % (42-75); PLATELET COUNT 209 10^3/uL (130-400); WHITE BLOOD COUNT 11.1 10^3/uL (4.3-11.0)
[2021-12-31] MEDS ORDERED: PRAMIPEXOLE 0.5 MG TAB (MIRAPEX) PO ONE (20:15)
[2021-12-31 20:36] LABS: ALBUMIN 3.8 GM/DL (3.2-4.5); POTASSIUM 4.1 MMOL/L (3.6-5.0)
[2021-12-31 20:37] LABS: CALCIUM 9.7 MG/DL (8.5-10.1)
[2021-12-31 20:39] LABS: TOTAL PROTEIN 6.5 GM/DL (6.4-8.2)
[2021-12-31 20:41] LABS: BILIRUBIN,TOTAL 1.4 MG/DL (0.1-1.0)
[2021-12-31 20:42] LABS: CREATININE SERUM 0.97 MG/DL (0.60-1.30)
== END 2021-12-31 21:14 | disposition home or self-care (01) ==
LOC: EDUNIT# 19:43 → ER 19:44
DX: G25.81 Restless legs syndrome (principal)
CPT/HCPCS: 36415; 80053; 84439; 84443; 85025

== ENCOUNTER → 2022-01-15 | Outpatient (CLI) | payer MEDICARE, OTHER ==
[~2022-01-15] MED LIST changes: +PRAM1TAB2 PO
[2022-01-15 15:10] VITALS: BP 201/92
[2022-01-15 15:41] LABS: BASOPHILS % (AUTO) 0 % (0-10); EOSINOPHILS # (AUTO) 0.2 10^3/uL (0.0-0.3); EOSINOPHILS % (AUTO) 2 % (0-10); HEMATOCRIT 42 % (35-52); HEMOGLOBIN 13.4 g/dL (11.5-16.0); LYMPHOCYTES # (AUTO) 2.2 10^3/uL (1.0-4.0); LYMPHOCYTES % (AUTO) 22 % (12-44); MEAN CORPUSCULAR HEMOGLOBIN 28 pg (25-34); MEAN CORPUSCULAR HGB CONC 32 g/dL (32-36); MEAN CORPUSCULAR VOLUME 87 fL (80-99); MEAN PLATELET VOLUME 10.8 fL (9.0-12.2); MONOCYTES # (AUTO) 0.5 10^3/uL (0.0-1.0); MONOCYTES % (AUTO) 5 % (0-12); NEUTROPHILS % (AUTO) 69 % (42-75); PLATELET COUNT 244 10^3/uL (130-400); WHITE BLOOD COUNT 10.2 10^3/uL (4.3-11.0)
[2022-01-15 15:51] LABS: EOSINOPHILS % (MANUAL) 2 %; LYMPHOCYTES % (MANUAL) 21 %; MONOCYTES % (MANUAL) 8 %; NEUTROPHILS % (MANUAL) 69 %; RBC MORPH NORMAL
[2022-01-15 15:52] LABS: ALBUMIN 3.6 GM/DL (3.2-4.5); BILIRUBIN,TOTAL 0.9 MG/DL (0.1-1.0); CALCIUM 9.5 MG/DL (8.5-10.1); CREATININE SERUM 0.74 MG/DL (0.60-1.30); POTASSIUM 4.2 MMOL/L (3.6-5.0); TOTAL PROTEIN 6.3 GM/DL (6.4-8.2)
== END ==
LOC: SDC 14:05
DX: E11.9 Type 2 diabetes mellitus without complications (principal); E78.2 Mixed hyperlipidemia; R53.83 Other fatigue; R94.6 Abnormal results of thyroid function studies
CPT/HCPCS: 36415; 36591; 80053; 80061; 83036; 84443; 85007; 85027

== ENCOUNTER 2022-03-09 11:51 | Emergency (ER) | payer MEDICARE, OTHER ==
[~2022-03-09] VITALS: Ht 167.7 cm; Wt 108.8 kg
[~2022-03-09 11:51] MED LIST changes: +HYDR-4085 PO; -HYDR-87 PO
--- NOTE | 2022-03-09 12:21 | ED Upper Extremity ---
General Chief Complaint: Upper Extremity Stated Complaint: L ARM SWELLING/PAIN Nursing Triage Note: PT AMB TO RM 7 WITH COMPLAINT OF LEFT FOREARM PAIN. STATES SHE HAS SWELLING AND A POCKET OF FLUID. STATES HAS BEEN ON GOING FOR ABOUT A WEEK. Source: patient Exam Limitations: no limitations History of Present Illness Date Seen by Provider: Mar 09, 2022 Time Seen by Provider: 12:17 Initial Comments Patient presents for left forearm swelling for several weeks. She states she was concerned today and since she is going out of town next week she wanted to get it looked at. She states it is a fullness but no specific pain, numbness or discoloration. She has not had this before. Method of Injury: unknown Allergies and Home Medications Allergies Coded Allergies: No Known Drug Allergies (Unverified , 02/11/14) Patient Home Medication List Home Medication List Reviewed: Yes Amitriptyline HCl (Amitriptyline HCl) 75 Mg Tablet, 75 MG PO HS, (Reported) Entered as Reported by: ERICA LY on 05/31/20 1314 Apixaban (Eliquis) 5 Mg Tablet, 5 MG PO BID, (Reported) Entered as Reported by: ERICA LY on 05/31/20 1314 Ascorbate Calcium (Vitamin C) 500 Mg Tablet, 500 MG PO DAILY, (Reported) Entered as Reported by: ERICA LY on 01/29/21 1130 Carbidopa/Levodopa (Carbidopa-Levodopa 25-100 Tab) 1 Each Tablet, 1 EA PO BID, (Reported) Entered as Reported by: ERICA LY on 01/29/21 1127 Celecoxib (Celebrex) 200 Mg Capsule, 200 MG PO DAILY, (Reported) Entered as Reported by: JULIANA LY on 11/08/20 1054 Cephalexin (Cephalexin) 500 Mg Tablet, 500 MG PO BID Prescribed by: DERICK KONG on 12/16/21 1811 Cholecalciferol (Vitamin D3) (Vitamin D3) 25 Mcg Tablet, 25 MCG PO DAILY, (Reported) Entered as Reported by: ERICA LY on 11/14/20 1644 Ciprofloxacin HCl (Ciprofloxacin HCl) 250 Mg Tablet, 250 MG PO Q12H Prescribed by: NASRA VELASQUEZ on 12/18/21 1107 Cyanocobalamin (Cyanocobalamin Injection) 1,000 Mcg/Ml Inj, 1,000 MCG IM MONTLY, (Reported) Entered as Reported by: ERICA LY on 11/14/20 1651 Cyanocobalamin (Vitamin B-12) (Vitamin B-12) 1,000 Mcg Tablet, 1,000 MCG PO DAILY, (Reported) Entered as Reported by: ERICA LY on 11/14/20 1644 Docusate Sodium (Docusate Sodium) 100 Mg Capsule, 100-200 MG PO TID PRN for CONSTIPATION-1ST LINE, (Reported) Entered as Reported by: ERICA LY on 11/14/20 1644 Estradiol (Estradiol) 42.5 Gm Cream.appl, 1 APPLIC VG UD PRN for DRYNESS/ITCHING, (Reported) Entered as Reported by: JULIANA LY on 11/08/20 1054 Ferrous Sulfate (Iron) 325 Mg Tablet, 325 MG PO DAILY, (Reported) Entered as Reported by: ERICA LY on 05/31/19 0903 Fluconazole (Fluconazole) 150 Mg Tablet, 150 MG PO KIM CADE, (Reported) Entered as Reported by: ERICA LY on 11/14/20 1644 Fluconazole (Diflucan) 150 Mg Tablet, 150 MG PO ONCE Prescribed by: DERICK KONG on 12/25/21 191 Hydrochlorothiazide (Hydrochlorothiazide) 25 Mg Tablet, 25 MG PO DAILY, (Reported) Entered as Reported by: MARISOL SIDDIQUI on 03/30/19 1630 Hydrocodone/Ibuprofen (Hydrocodone-Ibuprofen 7.5-200) 1 Each Tablet, 1 EA PO Q6H PRN for PAIN-MODERATE (5-7), (Reported) Entered as Reported by: ERICA LY on 01/29/21 1127 Insulin Degludec (Tresiba Flextouch U-100) 100 Unit/1 Ml Insuln.pen, 25 UNIT SQ DAILY Prescribed by: DANICA HERRING on 01/30/21 1508 Lactobacillus Combo No.10 (Probiotic) 1 Each Capsule, 1 CAP PO DAILY, (Reported) Entered as Reported by: MARISOL SIDDIQUI on 03/30/19 1630 Nitrofurantoin Macrocrystal (Nitrofurantoin) 100 Mg Capsule, 100 MG PO DAILY, (Reported) Entered as Reported by: ERICA LY on 11/14/20 1644 Nitrofurantoin Monohyd/M-Cryst (Macrobid 100 mg Capsule) 100 Mg Capsule, 1 TAB PO BID Prescribed by: DERICK KONG on 12/25/21 191 Pantoprazole Sodium (Pantoprazole Sodium) 40 Mg Tablet.dr, 40 MG PO DAILY, (Reported) Entered as Reported by: MARISOL SIDDIQUI on 03/30/19 1630 Phenazopyridine HCl (Pyridium) 200 Mg Tablet, 1 TAB PO TID Prescribed by: DERICK KONG on 12/16/21 181 Polyethylene Glycol 3350 (Miralax) 17 Gm Powd.pack, 17 GM PO TID PRN for CONSTIPATION-2ND LINE, (Reported) Entered as Reported by: ERICA LY on 11/14/20 164 Pramipexole Di-HCl (Pramipexole Dihydrochloride) 1 Mg Tablet, 1 MG PO BID, (Reported) Entered as Reported by: ERICA LY on 05/31/20 1314 Pramipexole Di-HCl (Mirapex) 1 Mg Tablet, 0.5 MG PO HS Prescribed by: JETHRO RICE on 12/31/212008 Ropinirole HCl (Ropinirole HCl) 0.25 Mg Tablet, 0.25 MG PO TID Prescribed by: JETHRO RICE on 12/28/21 1505 Simvastatin (Simvastatin) 40 Mg Tablet, 40 MG PO HS, (Reported) Entered as Reported by: JULIANA LY on 11/08/20 105 Sitagliptin Phosphate (Januvia) 100 Mg Tablet, 100 MG PO DAILY, (Reported) Entered as Reported by: ERICA LY on 11/14/20 165 Triamcinolone Acet (Triamcinolone Acetonide 0.1% Cream) 15 Gm Cr, 1 APPLIC TOP TID PRN for RASH, (Reported) Entered as Reported by: ERICA LY on 11/14/20 164 Vitamin E (Vitamin E) 1,000 Unit Capsule, 1,000 UNIT PO DAILY, (Reported) Entered as Reported by: ERICA LY on 11/14/20 1644 Review of Systems Constitutional: no symptoms reported EENTM: no symptoms reported Respiratory: no symptoms reported Cardiovascular: no symptoms reported Gastrointestinal: no symptoms reported Genitourinary: no symptoms reported Musculoskeletal: other (left forearm swelling) Psychiatric/Neurological: No Symptoms Reported Past Vixzqly-Byxoip-Bemfgd Hx Patient Social History Tobacco Use?: No Use of E-Cig and/or Vaping dev: No Substance use?: No Alcohol Use?: Yes Alcohol Frequency: Once in a while Pt feels they are or have been: No Immunizations Up To Date Tetanus Booster (TDap): More than 5yrs Seasonal Allergies Seasonal Allergies: No Past Medical History Surgery/Hospitalization HX: Brain surgery, 3 c-sections, bilateral knee, hysterectomy, partial thryoidectomy, rotator cuff, t/a History of diabetes, rls, asthma, htn, patricia, pe Surgeries: Yes (R knee replaced x2, port, c/s x3, hernia x5, rotator cuff, left wrist) Abdominal, Appendectomy, Hysterectomy, Joint Replacement, Neurological, Orthopedic, Thyroidectomy, Tonsillectomy Respiratory: Yes Asthma, Pneumonia, Chronic Bronchitis, Pulmonary Embolism, Sleep Apnea Currently Using CPAP: Yes Cardiac: Yes High Cholesterol Neurological: Yes (CHIARI MALFORMATION--SURGICAL REPAIR; RESTLESS LEG SYNDROME, Tremors) Reproductive Disorders: No Female 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 CHRONIC ABDOMINAL PAIN) Chronic Constipation, Chronic Diarrhea Musculoskeletal: Yes Arthritis, Chronic Back Pain Endocrine: Yes (BENIGN MASS LEFT THYROID REMOVED 01/01/2013) Diabetes, Non-Insulin dep HEENT: Yes Cataract Loss of Vision: Denies Hearing Impairment: Denies Cancer: No Psychosocial: Yes Anxiety, Depression Integumentary: No Blood Disorders: No Adverse Reaction/Blood Tranf: No Family Medical History Cancer 03 FATHER (PANCREATIC, PASSED AT 65 FROM THIS) Cataract 03 MOTHER Dementia 03 MOTHER Family history: Arthritis 03 MOTHER Family history: Cardiovascular disease 03 MOTHER (HIGH CHOLESTEROL, BALOON ARTERIES 2 TIMES) Hearing loss 03 MOTHER Hypercholesterolemia 03 MOTHER Cancer Physical Exam Vital Signs Vital Signs - First Documented 03/09/22 12:00 Pulse 83 Resp 16 B/P (MAP) 143/82 (102) Pulse Ox 95 O2 Delivery Room Air Capillary Refill : Less Than 3 Seconds Height, Weight, BMI Height: 5'4.00" Weight: 232lbs. 0.0oz. 105.267210ap; 38.00 BMI Method:Stated General Appearance: WD/WN, no apparent distress HEENT: PERRL/EOMI Neck: non-tender Cardiovascular: regular rate, rhythm Respiratory: chest non-tender, lungs clear Gastrointestinal: normal bowel sounds, non tender Back: normal inspection Elbow/Forearm: swelling (mild soft tissue swelling around the medial left elbow. No erythema/induration. 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 I asked about getting an US here in the ER, but apparently we have to schedule an outpatient US with results back to the ER provider. Patient states she will not be able to get an US on an outpatient basis and does not wish me to schedule it for her. She would like PCP f/u list. I discussed the risks of a potential DVT, including morbidity and mortality. She understands, but states that she has to be out of town next week. I strongly urged her to either return to the ER or to get an US scheduled if she will not allow for me to schedule her one on Friday. Patient agrees to care plan. We will trial a short course of steroids to see if it helps with swelling. Patient is in agreement. Impression Primary Impression: Forearm swelling Disposition: HOME, SELF-CARE Condition: Stable Departure-Patient Inst. Decision time for Depature: 12:27 Referrals: SABIHA MAXWELL MD (PCP/Family) Primary Care Physician Patient Instructions: LOCAL PHYSICIAN LIST Add. Discharge Instructions: Please return to the emergency room on Friday for an ultrasound of your left arm. If you are unable to get the ultrasound done or return to the ER, then I would like you to call the primary care providers (list provided) and get in to see one of them as soon as you are able. All discharge instructions reviewed with patient and/or family. Voiced understanding. Scripts Prednisone (Prednisone) 20 Mg Tab 20 MG PO BID for 5 Days, #10 TAB Take 3 tabs(60mg)daily, decrease by 1/2 tab(10mg)daily. Prov: MESHA MORGAN 03/09/22 MESHA MORGAN Mar 09, 2022 12:21
[2022-03-09] MEDS ORDERED: PRD20T PO (12:29)
[2022-03-09 12:35] VITALS: BP 143/82
== END 2022-03-09 12:35 | disposition home or self-care (01) ==
LOC: EDUNIT# 11:51 → ER 11:52
DX: M79.89 Other specified soft tissue disorders (principal); G47.30 Sleep apnea, unspecified; Z99.89 Dependence on other enabling machines and devices
CPT/HCPCS: 99281

== ENCOUNTER 2022-03-22 11:09 | Emergency (ER) | payer MEDICARE, OTHER ==
[~2022-03-22] VITALS: Ht 167.7 cm; Wt 108.9 kg
--- NOTE | 2022-03-22 11:55 | ED Upper Extremity ---
General Chief Complaint: Upper Extremity Stated Complaint: L ARM SWELLING Nursing Triage Note: PT AMBULATE TO ROOM FT2 WITH C/O LEFT FOREARM PAIN AND SWELLING X2 DAYS. PT REPORTS SHE HAS NOT TAKEN ANYTHING FOR PAIN AND HAS NOT CONTACTED HER PCP. Source: patient Exam Limitations: no limitations History of Present Illness Date Seen by Provider: Mar 22, 2022 Time Seen by Provider: 11:53 Initial Comments Patient is a 71-year-old female presents ED with left forearm swelling. Increasing swelling over the past 2 days. Denies any specific injury or history of similar symptoms. 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 pain is worse with movement. She has been taking Tylenol without much improvement. No pain in the neck, chest, shortness of breath, cough. History of PE. Currently on Eliquis. Denies any visual changes, headache, nausea, vomiting, diarrhea. Allergies and Home Medications Allergies Coded Allergies: No Known Drug Allergies (Unverified , 02/11/14) Patient Home Medication List Home Medication List Reviewed: Yes Amitriptyline HCl (Amitriptyline HCl) 75 Mg Tablet, 75 MG PO HS, (Reported) Entered as Reported by: ERICA LY on 05/31/20 1314 Apixaban (Eliquis) 5 Mg Tablet, 5 MG PO BID, (Reported) Entered as Reported by: ERICA LY on 05/31/20 1314 Ascorbate Calcium (Vitamin C) 500 Mg Tablet, 500 MG PO DAILY, (Reported) Entered as Reported by: ERICA LY on 01/29/21 1130 Carbidopa/Levodopa (Carbidopa-Levodopa 25-100 Tab) 1 Each Tablet, 1 EA PO BID, (Reported) Entered as Reported by: ERICA LY on 01/29/21 1127 Celecoxib (Celebrex) 200 Mg Capsule, 200 MG PO DAILY, (Reported) Entered as Reported by: JULIANA LY on 11/08/20 1054 Cephalexin (Cephalexin) 500 Mg Tablet, 500 MG PO BID Prescribed by: DERICK KONG on 12/16/21 1811 Cholecalciferol (Vitamin D3) (Vitamin D3) 25 Mcg Tablet, 25 MCG PO DAILY, (Reported) Entered as Reported by: ERICA LY on 11/14/20 1644 Ciprofloxacin HCl (Ciprofloxacin HCl) 250 Mg Tablet, 250 MG PO Q12H Prescribed by: NASRA VELASQUEZ on 12/18/21 1107 Cyanocobalamin (Cyanocobalamin Injection) 1,000 Mcg/Ml Inj, 1,000 MCG IM MONTLY, (Reported) Entered as Reported by: ERICA LY on 11/14/20 1651 Cyanocobalamin (Vitamin B-12) (Vitamin B-12) 1,000 Mcg Tablet, 1,000 MCG PO DAILY, (Reported) Entered as Reported by: ERICA LY on 11/14/20 164 Docusate Sodium (Docusate Sodium) 100 Mg Capsule, 100-200 MG PO TID PRN for CONSTIPATION-1ST LINE, (Reported) Entered as Reported by: ERICA LY on 11/14/20 164 Estradiol (Estradiol) 42.5 Gm Cream.appl, 1 APPLIC VG UD PRN for DRYNESS/ITCHING, (Reported) Entered as Reported by: JULIANA LY on 11/08/20 1054 Ferrous Sulfate (Iron) 325 Mg Tablet, 325 MG PO DAILY, (Reported) Entered as Reported by: ERICA LY on 05/31/19 0903 Fluconazole (Fluconazole) 150 Mg Tablet, 150 MG PO FRI, (Reported) Entered as Reported by: ERICA LY on 11/14/20 164 Fluconazole (Diflucan) 150 Mg Tablet, 150 MG PO ONCE Prescribed by: DERICK KONG on 12/25/21 1917 Hydrochlorothiazide (Hydrochlorothiazide) 25 Mg Tablet, 25 MG PO DAILY, (Reported) Entered as Reported by: MARISOL SIDDIQUI on 03/30/19 1630 Hydrocodone/Ibuprofen (Hydrocodone-Ibuprofen 7.5-200) 1 Each Tablet, 1 EA PO Q6H PRN for PAIN-MODERATE (5-7), (Reported) Entered as Reported by: ERICA LY on 01/29/21 1127 Insulin Degludec (Tresiba Flextouch U-100) 100 Unit/1 Ml Insuln.pen, 25 UNIT SQ DAILY Prescribed by: DANICA HERRING on 01/30/21 1508 Lactobacillus Combo No.10 (Probiotic) 1 Each Capsule, 1 CAP PO DAILY, (Reported) Entered as Reported by: MARISOL SIDDIQUI on 03/30/19 1630 Nitrofurantoin Macrocrystal (Nitrofurantoin) 100 Mg Capsule, 100 MG PO DAILY, ( Reported) Entered as Reported by: ERICA LY on 11/14/20 1644 Nitrofurantoin Monohyd/M-Cryst (Macrobid 100 mg Capsule) 100 Mg Capsule, 1 TAB PO BID Prescribed by: DERICK KONG on 12/25/21 1917 Pantoprazole Sodium (Pantoprazole Sodium) 40 Mg Tablet.dr, 40 MG PO DAILY, (Reported) Entered as Reported by: MARISOL SIDDIQUI on 03/30/19 1630 Phenazopyridine HCl (Pyridium) 200 Mg Tablet, 1 TAB PO TID Prescribed by: DERICK KONG on 12/16/21 181 Polyethylene Glycol 3350 (Miralax) 17 Gm Powd.pack, 17 GM PO TID PRN for CONSTIPATION-2ND LINE, (Reported) Entered as Reported by: ERICA LY on 11/14/20 1644 Pramipexole Di-HCl (Pramipexole Dihydrochloride) 1 Mg Tablet, 1 MG PO BID, (Reported) Entered as Reported by: ERICA LY on 05/31/20 1314 Pramipexole Di-HCl (Mirapex) 1 Mg Tablet, 0.5 MG PO HS Prescribed by: JETHRO RICE on 12/31/212008 Prednisone (Prednisone) 20 Mg Tab, 20 MG PO BID Prescribed by: Merrick Correia on 03/09/22 1229 Ropinirole HCl (Ropinirole HCl) 0.25 Mg Tablet, 0.25 MG PO TID Prescribed by: JETHRO RICE on 12/28/21 1505 Simvastatin (Simvastatin) 40 Mg Tablet, 40 MG PO HS, (Reported) Entered as Reported by: JULIANA LY on 11/08/20 1054 Sitagliptin Phosphate (Januvia) 100 Mg Tablet, 100 MG PO DAILY, (Reported) Entered as Reported by: ERICA LY on 11/14/20 1651 Tramadol HCl (Tramadol HCl) 50 Mg Tablet, 50 MG PO Q6H Prescribed by: DERICK KONG on 03/22/22 1249 Triamcinolone Acet (Triamcinolone Acetonide 0.1% Cream) 15 Gm Cr, 1 APPLIC TOP TID PRN for RASH, (Reported) Entered as Reported by: ERICA LY on 11/14/201643 Vitamin E (Vitamin E) 1,000 Unit Capsule, 1,000 UNIT PO DAILY, (Reported) Entered as Reported by: ERICA LY on 11/14/204 Review of Systems Constitutional: No chills, No diaphoresis EENTM: No ear pain, No blurred vision, No double vision Respiratory: No cough, No dyspnea on exertion Cardiovascular: No chest pain, No edema Gastrointestinal: No abdominal pain, No diarrhea, No nausea, No vomiting Genitourinary: No decreased output, No discharge Musculoskeletal: No back pain; joint pain, muscle pain, muscle stiffness Skin: No change in color, No change in hair/nails All Other Systems Reviewed Negative Unless Noted: Yes Past Affjwoc-Mjjfrn-Ynoskr Hx Patient Social History Tobacco Use?: No Smoking Status: Never a Smoker Smokeless Tobacco Frequency: Never a User Use of E-Cig and/or Vaping dev: No Use of E-Cig and/or Vaping Jose: Never a User Substance use?: No Alcohol Use?: Yes Alcohol type: Hard Liquor Alcohol Frequency: Couple times a week Pt feels they are or have been: No Immunizations Up To Date Tetanus Booster (TDap): More than 5yrs Seasonal Allergies Seasonal Allergies: No Past Medical History Surgery/Hospitalization HX: Brain surgery, 3 c-sections, bilateral knee, hysterectomy, partial thryoidectomy, rotator cuff, t/a History of diabetes, rls, asthma, htn, patricia, pe Surgeries: Yes (R knee replaced x2, port, c/s x3, hernia x5, rotator cuff, left wrist) Abdominal, Appendectomy, Hysterectomy, Joint Replacement, Neurological, Orthopedic, Thyroidectomy, Tonsillectomy Respiratory: Yes Asthma, Pneumonia, Chronic Bronchitis, Pulmonary Embolism, Sleep Apnea Currently Using CPAP: Yes Cardiac: Yes High Cholesterol Neurological: Yes (CHIARI MALFORMATION--SURGICAL REPAIR; RESTLESS LEG SYNDROME, Tremors) Reproductive Disorders: No Female Reproductive Disorders: Denies 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 CHRONIC ABDOMINAL PAIN) Chronic Constipation, Chronic Diarrhea Musculoskeletal: Yes Arthritis, Chronic Back Pain Endocrine: Yes (BENIGN MASS LEFT THYROID REMOVED 01/01/2013) Diabetes, Non-Insulin dep HEENT: Yes Cataract Loss of Vision: Denies Hearing Impairment: Denies Cancer: No Psychosocial: Yes Anxiety, Depression Integumentary: No Blood Disorders: No Adverse Reaction/Blood Tranf: No Family Medical History Cancer 03 FATHER (PANCREATIC, PASSED AT 65 FROM THIS) Cataract 03 MOTHER Dementia 03 MOTHER Family history: Arthritis 03 MOTHER Family history: Cardiovascular disease 03 MOTHER (HIGH CHOLESTEROL, [place] ARTERIES 2 TIMES) Hearing loss 03 MOTHER Hypercholesterolemia 03 MOTHER Cancer Physical Exam Vital Signs Vital Signs - First Documented 03/22/22 11:33 Temp 36.8 Pulse 75 Resp 17 B/P (MAP) 149/94 (112) O2 Delivery Room Air Capillary Refill : Less Than 3 Seconds Height, Weight, BMI Height: 5'4.00" Weight: 232lbs. 0.0oz. 105.770007li; 38.00 BMI Method:Stated General Appearance: WD/WN, no apparent distress HEENT: PERRL/EOMI, normal ENT inspection, TMs normal, pharynx normal Neck: non-tender, full range of motion, supple, normal inspection Cardiovascular: regular rate, rhythm, no edema, no gallop, no JVD Respiratory: chest non-tender, lungs clear, normal breath sounds, no respiratory distress, no accessory muscle use Gastrointestinal: normal bowel sounds, non tender, soft, no organomegaly Back: normal inspection, no CVA tenderness, no vertebral tenderness Shoulder: normal inspection, non-tender, no evidence of injury Elbow/Forearm: normal ROM, Left, soft tissue tenderness (left ofrearm) Wrist: Yes normal inspection, Yes non-tender, Yes no evidence of injury, Yes normal ROM, Yes abrasions Hand: normal inspection, non-tender, no evidence of injury, normal ROM, Left Neurologic/Tendon: normal sensation, normal motor functions 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 Tenderness to left forearm. No obvious injury. May be some mild swelling. No evidence of erythema or fluctuant mass. 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 Appears to be a forearm muscle strain. Discharged few days with the pain medication. Recommend ice and range of motion exercises. If any worsening symptoms to return back to ED for further evaluation. Impression Primary Impression: Arm pain Disposition: HOME, SELF-CARE Condition: Stable Departure-Patient Inst. Decision time for Depature: 12:45 Referrals: NO,LOCAL PHYSICIAN (PCP) Primary Care Physician BRITTNEY BENITEZ MD Patient Instructions: Wrist Sprain (DC) Scripts Tramadol HCl (Tramadol HCl) 50 Mg Tablet 50 MG PO Q6H for Pain, #8 TAB Prov: JOSE FALK 03/22/22 JOSE FALK Mar 22, 2022 11:55
--- NOTE | 2022-03-22 12:37 | Diagnostic Imaging Report ---
INDICATION: Left arm swelling. Left arm venous Doppler study performed in the routine fashion with color flow Doppler waveform analysis. The left internal jugular vein, left subclavian vein, and left axillary vein are patent and compressible. Left brachial and basilic and cephalic veins are patent. Radial and ulnar veins are patent with the visualized extent. IMPRESSION: No evidence of deep vein thrombosis in the major veins of the left upper extremity. Dictated by: Dictated on workstation # [id number]
[2022-03-22] MEDS ORDERED: TRAM50TA3 PO ×2 (12:46→12:49)
[2022-03-22 12:52] VITALS: BP 137/86
== END 2022-03-22 12:52 | disposition home or self-care (01) ==
LOC: EDUNIT# 11:09 → ER 11:10
DX: S60.812A Abrasion of left wrist, initial encounter (principal); M79.602 Pain in left arm; M79.632 Pain in left forearm; G47.30 Sleep apnea, unspecified; Z99.89 Dependence on other enabling machines and devices; Z79.01 Long term (current) use of anticoagulants; Z28.310 Unvaccinated for COVID-19; X58.XXXA Exposure to other specified factors, initial encounter

== ENCOUNTER 2022-07-03 10:16 | Emergency (ER) | payer MEDICARE, OTHER ==
[~2022-07-03] VITALS: Ht 167 cm; Wt 107.0 kg
[~2022-07-03 10:16] MED LIST changes: +ALBU8.5H6 IH; -CARB1TAB19 PO; +CARB1TAB32 PO; +LEVO-55 PO; -LEVO500T81 PO; -RT-ALBUINH IH; +TRAM50TA3 PO
--- NOTE | 2022-07-03 10:55 | ED General ---
General Chief Complaint: Glucose Problems Stated Complaint: HIGH BLOOD SUGAR Nursing Triage Note: urgent care sent pt here for glucose of 329 and sugar in her urine. states went to urgent care for a cough today, lab work was done there friday for a check up. 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 Patient's also reports sugar was found in the patient's urine as well. He states she does not currently have a PCP and went to for regular blood work and labs to be done. He states that the patient is on Januvia 100 mg every morning and Glipizide 100 mg every evening. Patient states she has been constipated, but that this is normal for her. She also states she has a dry cough and some shortness of breath. Denies fever or chills. She reports similar episodes of high blood sugars with the most recent episode being about 9 months ago where she was admitted to [facility] for treatment. Patient has no other complaints at this time. Timing/Duration: 1 Day Severity: Mild Associated Systoms: Cough; No Fever/Chills, No Nausea/Vomiting; Shortness of Air (JATINDER COUCH) Allergies and Home Medications Allergies Coded Allergies: No Known Drug Allergies (Unverified , 02/11/14) Patient Home Medication List Home Medication List Reviewed: Yes (JATINDER COUCH) Amitriptyline HCl (Amitriptyline HCl) 75 Mg Tablet, 75 MG PO HS, (Reported) Entered as Reported by: ERICA LY on 05/31/20 1314 Apixaban (Eliquis) 5 Mg Tablet, 5 MG PO BID, (Reported) Entered as Reported by: ERICA LY on 05/31/20 1314 Ascorbate Calcium (Vitamin C) 500 Mg Tablet, 500 MG PO DAILY, (Reported) Entered as Reported by: ERICA LY on 01/29/21 1130 Carbidopa/Levodopa (Carbidopa-Levodopa 25-100 Tab) 1 Each Tablet, 1 EA PO BID, (Reported) Entered as Reported by: ERICA LY on 01/29/21 1127 Celecoxib (Celebrex) 200 Mg Capsule, 200 MG PO DAILY, (Reported) Entered as Reported by: JULIANA LY on 11/08/20 1054 Cephalexin (Cephalexin) 500 Mg Tablet, 500 MG PO BID Prescribed by: DERICK KONG on 12/16/21 181 Cholecalciferol (Vitamin D3) (Vitamin D3) 25 Mcg Tablet, 25 MCG PO DAILY, (Reported) Entered as Reported by: ERICA LY on 11/14/20 164 Ciprofloxacin HCl (Ciprofloxacin HCl) 250 Mg Tablet, 250 MG PO Q12H Prescribed by: NASRA VELASQUEZ on 12/18/21 1107 Cyanocobalamin (Cyanocobalamin Injection) 1,000 Mcg/Ml Inj, 1,000 MCG IM MONTLY, (Reported) Entered as Reported by: ERICA LY on 11/14/20 165 Cyanocobalamin (Vitamin B-12) (Vitamin B-12) 1,000 Mcg Tablet, 1,000 MCG PO DAILY, (Reported) Entered as Reported by: ERICA LY on 11/14/20 164 Docusate Sodium (Docusate Sodium) 100 Mg Capsule, 100-200 MG PO TID PRN for CONSTIPATION-1ST LINE, (Reported) Entered as Reported by: ERICA LY on 11/14/20 164 Estradiol (Estradiol) 42.5 Gm Cream.appl, 1 APPLIC VG UD PRN for DRYNESS/ITCHING, (Reported) Entered as Reported by: JULIANA LY on 11/08/20 105 Ferrous Sulfate (Iron) 325 Mg Tablet, 325 MG PO DAILY, (Reported) Entered as Reported by: ERICA LY on 05/31/19 0903 Fluconazole (Fluconazole) 150 Mg Tablet, 150 MG PO KIM CADE, (Reported) Entered as Reported by: ERICA LY on 11/14/20 164 Fluconazole (Diflucan) 150 Mg Tablet, 150 MG PO ONCE Prescribed by: DERICK KONG on 12/25/21 191 Hydrochlorothiazide (Hydrochlorothiazide) 25 Mg Tablet, 25 MG PO DAILY, (Reported) Entered as Reported by: MARISOL SIDDIQUI on 03/30/19 1630 Hydrocodone/Ibuprofen (Hydrocodone-Ibuprofen 7.5-200) 1 Each Tablet, 1 EA PO Q6H PRN for PAIN-MODERATE (5-7), (Reported) Entered as Reported by: ERICA LY on 01/29/21 1127 Insulin Degludec (Tresiba Flextouch U-100) 100 Unit/1 Ml Insuln.pen, 25 UNIT SQ DAILY Prescribed by: DANICA HERRING on 01/30/21 1508 Lactobacillus Combo No.10 (Probiotic) 1 Each Capsule, 1 CAP PO DAILY, (Reported) Entered as Reported by: MARISOL SIDDIQUI on 03/30/19 1630 Nitrofurantoin Macrocrystal (Nitrofurantoin) 100 Mg Capsule, 100 MG PO DAILY, (Reported) Entered as Reported by: ERICA LY on 11/14/20 1644 Nitrofurantoin Monohyd/M-Cryst (Macrobid 100 mg Capsule) 100 Mg Capsule, 1 TAB PO BID Prescribed by: DERICK KONG on 12/25/21 1917 Pantoprazole Sodium (Pantoprazole Sodium) 40 Mg Tablet.dr, 40 MG PO DAILY, (Reported) Entered as Reported by: MARISOL SIDDIQUI on 03/30/19 1630 Phenazopyridine HCl (Pyridium) 200 Mg Tablet, 1 TAB PO TID Prescribed by: DERICK KONG on 12/16/21 1813 Polyethylene Glycol 3350 (Miralax) 17 Gm Powd.pack, 17 GM PO TID PRN for CONSTIPATION-2ND LINE, (Reported) Entered as Reported by: ERICA LY on 11/14/20 1644 Pramipexole Di-HCl (Pramipexole Dihydrochloride) 1 Mg Tablet, 1 MG PO BID, (Reported) Entered as Reported by: ERICA LY on 05/31/20 1314 Pramipexole Di-HCl (Mirapex) 1 Mg Tablet, 0.5 MG PO HS Prescribed by: JETHRO RICE on 12/31/212008 Prednisone (Prednisone) 20 Mg Tab, 20 MG PO BID Prescribed by: Merrick Correia on 03/09/22 1229 Ropinirole HCl (Ropinirole HCl) 0.25 Mg Tablet, 0.25 MG PO TID Prescribed by: JETHRO RICE on 12/28/21 1505 Simvastatin (Simvastatin) 40 Mg Tablet, 40 MG PO HS, (Reported) Entered as Reported by: JULIANA LY on 11/08/20 1054 Sitagliptin Phosphate (Januvia) 100 Mg Tablet, 100 MG PO DAILY, (Reported) Entered as Reported by: ERICA LY on 11/14/20 1651 Tramadol HCl (Tramadol HCl) 50 Mg Tablet, 50 MG PO Q6H Prescribed by: DERICK KONG on 03/22/22 1249 Triamcinolone Acet (Triamcinolone Acetonide 0.1% Cream) 15 Gm Cr, 1 APPLIC TOP TID PRN for RASH, (Reported) Entered as Reported by: ERICA LY on 11/14/20 1644 Vitamin E (Vitamin E) 1,000 Unit Capsule, 1,000 UNIT PO DAILY, (Reported) Entered as Reported by: ERICA LY on 11/14/20 1644 Review of Systems Review of Systems Constitutional: No chills, No diaphoresis, No fever Respiratory: cough; No phlegm; short of breath Cardiovascular: No chest pain, No palpitations Gastrointestinal: No abdominal pain, No nausea, No vomiting Genitourinary: No dysuria, No hematuria Musculoskeletal: no symptoms reported Skin: no symptoms reported Psychiatric/Neurological: Other ("jittery" in extremities) Hematologic/Lymphatic: No Symptoms Reported Immunological/Allergic: no symptoms reported (JATINDER COUCH) Past Vdftqwq-Btqzhu-Xefdhh Hx Immunizations Up To Date Tetanus Booster (TDap): More than 5yrs (JATINDER COUCH) Seasonal Allergies Seasonal Allergies: No (JATINDER COUCH) Past Medical History Surgery/Hospitalization HX: Brain surgery, 3 c-sections, bilateral knee, hysterectomy, partial thryoidectomy, rotator cuff, t/a History of diabetes, rls, asthma, htn, patricia, pe Surgeries: Yes (R knee replaced x2, port, c/s x3, hernia x5, rotator cuff, left wrist) Abdominal, Appendectomy, Hysterectomy, Joint Replacement, Neurological, Orthopedic, Thyroidectomy, Tonsillectomy Respiratory: Yes Asthma, Pneumonia, Chronic Bronchitis, Pulmonary Embolism, Sleep Apnea Currently Using CPAP: Yes Cardiac: Yes High Cholesterol Neurological: Yes (CHIARI MALFORMATION--SURGICAL REPAIR; RESTLESS LEG SYNDROME, Tremors) Reproductive Disorders: No Female Reproductive Disorders: Denies 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 CHRONIC ABDOMINAL PAIN) Chronic Constipation, Chronic Diarrhea Musculoskeletal: Yes Arthritis, Chronic Back Pain Endocrine: Yes (BENIGN MASS LEFT THYROID REMOVED 01/01/2013) Diabetes, Non-Insulin dep HEENT: Yes Cataract Loss of Vision: Denies Hearing Impairment: Denies Cancer: No Psychosocial: Yes Anxiety, Depression Integumentary: No Blood Disorders: No Adverse Reaction/Blood Tranf: No (KHOAJATINDER) Family Medical History Cancer 03 FATHER (PANCREATIC, PASSED AT 65 FROM THIS) Cataract 03 MOTHER Dementia 03 MOTHER Family history: Arthritis 03 MOTHER Family history: Cardiovascular disease 03 MOTHER (HIGH CHOLESTEROL, [place] ARTERIES 2 TIMES) Hearing loss 03 MOTHER Hypercholesterolemia 03 MOTHER Cancer (SUBBARAO,JATINDER) Physical Exam Vital Signs Vital Signs - First Documented 07/03/22 10:25 Temp 35.8 Pulse 87 Resp 20 B/P (MAP) 164/99 (120) Pulse Ox 96 O2 Delivery Room Air (MAGALI TREVINO MD) Vital Signs Capillary Refill : (SUBBARAO,JATINDER) Height, Weight, BMI Height: 5'4.00" Weight: 232lbs. 0.0oz. 105.680977ly; 38.00 BMI Method:Stated General Appearance: No Apparent Distress, Obese HEENT: Moist Mucous Membranes Respiratory: Chest Non Tender, Lungs Clear, Normal Breath Sounds, No Accessory Muscle Use, No Respiratory Distress Cardiovascular: Regular Rate, Rhythm, No JVD, No Murmur, Normal Peripheral Pulses Gastrointestinal: Non Tender, Soft Extremity: Normal Capillary Refill, Normal Inspection, Non Tender, No Calf Tenderness, No Pedal Edema Neurologic/Psychiatric: Alert, Oriented x3 Skin: Normal Color, Warm/Dry (SUBBARAO,JATINDER) Progress/Results/Core Measures Suspected Sepsis SIRS Temperature: Pulse: 87 Respiratory Rate: 20 Blood Pressure 164 /99 Mean: 120 ([facility],JATINDER) Results/Orders Lab Results Laboratory Tests Test 07/03/22 10:30 11/9/22 11:28 07/03/22 11:33 Range/Units Glucometer 330 H 70-110 MG/DL Sodium Level 137 135-145 MMOL/L Potassium Level 3.6 3.6-5.0 MMOL/L Chloride Level 104 98-107 MMOL/L Carbon Dioxide Level 21 21-32 MMOL/L Anion Gap 12 5-14 MMOL/L Blood Urea Nitrogen 12 7-18 MG/DL Creatinine 0.88 0.60-1.30 MG/DL Estimat Glomerular Filtration Rate 71 BUN/Creatinine Ratio 14 Glucose Level 318 H 70-105 MG/DL Calcium Level 9.0 8.5-10.1 MG/DL Influenza Type A (RT-PCR) Not Detected Not Detecte Influenza Type B (RT-PCR) Not Detected Not Detecte SARS-CoV-2 RNA (RT-PCR) Not Detected Not Detecte Urine Color ORANGE Urine Clarity CLOUDY Urine pH 5.5 5-9 Urine Specific Mcneil >=1.030 1.016-1.022 Urine Protein NEGATIVE NEGATIVE Urine Glucose (UA) 3+ H NEGATIVE Urine Ketones NEGATIVE NEGATIVE Urine Nitrite NEGATIVE NEGATIVE Urine Bilirubin NEGATIVE NEGATIVE Urine Urobilinogen 0.2 < = 1.0 MG/DL Urine Leukocyte Esterase NEGATIVE NEGATIVE Urine RBC (Auto) NEGATIVE NEGATIVE Urine RBC NONE /HPF Urine WBC 0-2 /HPF Urine Squamous Epithelial Cells 5-10 /HPF Urine Crystals NONE /LPF Urine Bacteria NEGATIVE /HPF Urine Casts NONE /LPF Urine Mucus NEGATIVE /LPF Urine Culture Indicated NO (MAGALI TREVINO MD) My Orders Orders - MAGALI TREVINO MD Ua Culture If Indicated (07/03/22 11:13) Basic Metabolic Panel (07/03/22 11:13) Covid 19 Inhouse Test (07/03/22 11:13) Influenza A And B By Pcr (07/03/22 11:13) Isolation Central Supply Req (07/03/22 11:13) (MAGALI TREVINO MD) Vital Signs/I&O 07/03/22 07/03/22 10:25 13:05 Temp 35.8 35.8 Pulse 87 87 Resp 20 20 B/P (MAP) 164/99 (120) 154/102 Pulse Ox 96 96 O2 Delivery Room Air Room Air (MAGALI TREVINO MD) Vital Signs/I&O Capillary Refill : (JATINDER COUCH) Blood Pressure Mean: 120 Point of Care Testing Finger Stick Blood Glucose: 330 Blood Glucose Action Taken: dr arechiga (JATINDER COUCH) Progress Note : Time: 12:57 Progress Note Patient seen and examined by me, 72-year-old female chief complaint of elevated blood sugar, sent from [facility] [place] [place] urgent care. She is also developed a cough and some body aches since yesterday. She otherwise has no fevers, chills. She does endorse dysuria since yesterday. No diarrhea, black or bloody stools. She has been undoctored for the last 9 months as her primary care physician is . She is trying to reestablish care. Evaluation today includes a physical exam, basic metabolic panel, COVID test and urinalysis. Blood sugar is 313 and otherwise the basic metabolic panel is reassuring. Her COVID test is negative, her urinalysis is clean. Her vital signs of been stable. No clinical or objective findings to warrant further tests from the emergency department or admission. She is comfortable with discharged home. We will send a physician referral list with her. All questions are sought and answered (MAGALI TREVINO MD) Departure Impression Primary Impression: Hyperglycemia Additional Impressions: Type 2 diabetes mellitus Qualified Codes: E11.9 - Type 2 diabetes mellitus without complications Viral syndrome Dysuria Disposition: 01 HOME, SELF-CARE Condition: Stable Departure-Patient Inst. Decision time for Depature: 12:59 (MAGALI TREVINO MD) Referrals: NO,LOCAL PHYSICIAN (PCP/Family) Primary Care Physician Patient Instructions: LOCAL PHYSICIAN LIST Add. Discharge Instructions: Continue daily medications as prescribed. Please find a local physician to continue your current outpatient management of your diabetes and other chronic medical conditions. Return to the emergency department for any new, concerning or emergent complaints. Verification and Attestation of Medical Student E/M Service A medical student performed and documented this service in my presence. I reviewed and verified all information documented by the medical student and made modifications to such information, when appropriate. I personally performed the physical exam and medical decision making. Magali Trevino, Jul 04, 2022,07:37 (MAGALI TREVINO MD) JATINDER COUCH Jul 03, 2022 10:55 MAGALI TREVINO MD Jul 03, 2022 13:00
[2022-07-03 11:38] LABS: POTASSIUM 3.6 MMOL/L (3.6-5.0)
[2022-07-03 11:38] LABS: BILIRUBIN,URINE NEGATIVE (NEGATIVE); CLARITY,URINE CLOUDY; COLOR,URINE ORANGE; GLUCOSE, URINE (UA) 3+ (NEGATIVE); KETONES,URINE NEGATIVE (NEGATIVE); LEUKOCYTE ESTERASE ,URINE NEGATIVE (NEGATIVE); NITRITE,URINE NEGATIVE (NEGATIVE); PH,URINE 5.5 (5-9); PROTEIN,URINE NEGATIVE (NEGATIVE)
[2022-07-03 11:44] LABS: CREATININE SERUM 0.88 MG/DL (0.60-1.30)
[2022-07-03 11:48] LABS: BACTERIA,URINE NEGATIVE /HPF; WBC,URINE 0-2 /HPF
[2022-07-03 13:05] VITALS: BP 154/102
== END 2022-07-03 13:05 | disposition home or self-care (01) ==
LOC: EDUNIT# 10:16 → ER 10:19
DX: E11.65 Type 2 diabetes mellitus with hyperglycemia (principal); B34.9 Viral infection, unspecified; R30.0 Dysuria; R05.9 Cough, unspecified; G47.30 Sleep apnea, unspecified; Z99.89 Dependence on other enabling machines and devices; Z20.822 Contact with and (suspected) exposure to COVID-19; Z79.84 Long term (current) use of oral hypoglycemic drugs; Z28.310 Unvaccinated for COVID-19
CPT/HCPCS: 36415; 80048; 81000; 82947; 87636

== ENCOUNTER 2023-06-05 18:29 | Inpatient (IN) | payer MEDICARE, OTHER ==
[~2023-06-05] VITALS: Ht 167.7 cm; Wt 110.0 kg
[~2023-06-05 18:29] MED LIST changes: -CELE-63 PO; +CELE-91 PO; -DICL100G13 TOP; +DICL100G60 TOP; +DICY-11 PO; -DICY10CA12 PO; -ROPI0.253 PO; +ROPI0.2533 PO
--- NOTE | 2023-06-05 19:06 | ED Cough/URI ---
General Chief Complaint: Cough/Cold/Flu Symptoms Stated Complaint: CONFUSION, COUGH Nursing Triage Note: PT STATES VOMITING, WAS AROUND GRANDCHILD THAT WAS SICK LAST WEEK, WEAKNESS TO THE POINT SHE SLID DOWN TO THE FLOOR OUT OF THE BED, DID NOT FALL Source: patient, spouse Exam Limitations: no limitations (STEVE FERNANDEZ APRN) History of Present Illness Date Seen by Provider: Jun 05, 2023 Time Seen by Provider: 18:55 Initial Comments 73-year-old female presents the ER with complaint of generalized weakness, generalized body aches, and 2 episodes of vomiting. Reports that she also has an occasional cough. She was found to have a fever here. Denies headache, sore throat, chest pain, shortness of air, dysuria. She does report that she was around her grandchild last week who was ill. Patient's states that she seems to be confused lately. States that she has not been as sharp as normal and also has been repeating things she says. Patient is alert to self, place, and year. She thinks that it is April. (STEVE FERNANDEZ APRN) Allergies and Home Medications Allergies Coded Allergies: No Known Drug Allergies (Unverified , 02/11/14) Patient Home Medication List Home Medication List Reviewed: Yes (STEVE FERNANDEZ APRN) Amitriptyline HCl (Amitriptyline HCl) 75 Mg Tablet, 75 MG PO HS, (Reported) Entered as Reported by: ERICA LY on 05/31/20 1314 Apixaban (Eliquis) 5 Mg Tablet, 5 MG PO BID, (Reported) Entered as Reported by: ERICA LY on 05/31/20 1314 Ascorbate Calcium (Vitamin C) 500 Mg Tablet, 500 MG PO DAILY, (Reported) Entered as Reported by: ERICA LY on 01/29/21 1130 Carbidopa/Levodopa (Carbidopa-Levodopa 25-100 Tab) 1 Each Tablet, 1 EA PO BID, (Reported) Entered as Reported by: ERICA LY on 01/29/21 1127 Celecoxib (Celebrex) 200 Mg Capsule, 200 MG PO DAILY, (Reported) Entered as Reported by: JULIANA LY on 11/08/20 1054 Cephalexin (Cephalexin) 500 Mg Tablet, 500 MG PO BID Prescribed by: DERICK KONG on 12/16/21 181 Cholecalciferol (Vitamin D3) (Vitamin D3) 25 Mcg Tablet, 25 MCG PO DAILY, (Reported) Entered as Reported by: ERICA LY on 11/14/20 164 Ciprofloxacin HCl (Ciprofloxacin HCl) 250 Mg Tablet, 250 MG PO Q12H Prescribed by: NASRA VELASQUEZ on 12/18/21 1107 Cyanocobalamin (Cyanocobalamin Injection) 1,000 Mcg/Ml Inj, 1,000 MCG IM MONTLY, (Reported) Entered as Reported by: ERICA LY on 11/14/20 165 Cyanocobalamin (Vitamin B-12) (Vitamin B-12) 1,000 Mcg Tablet, 1,000 MCG PO DAILY, (Reported) Entered as Reported by: ERICA LY on 11/14/20 164 Docusate Sodium (Docusate Sodium) 100 Mg Capsule, 100-200 MG PO TID PRN for CONSTIPATION-1ST LINE, (Reported) Entered as Reported by: ERICA LY on 11/14/20 164 Estradiol (Estradiol) 42.5 Gm Cream.appl, 1 APPLIC VG UD PRN for DRYNESS/ITCHING, (Reported) Entered as Reported by: JULIANA LY on 11/08/20 1054 Ferrous Sulfate (Iron) 325 Mg Tablet, 325 MG PO DAILY, (Reported) Entered as Reported by: ERICA LY on 05/31/19 0903 Fluconazole (Fluconazole) 150 Mg Tablet, 150 MG [facility], (Reported) Entered as Reported by: ERICA LY on 11/14/20 164 Fluconazole (Diflucan) 150 Mg Tablet, 150 MG PO ONCE Prescribed by: DERICK KONG on 12/25/21 1917 Hydrochlorothiazide (Hydrochlorothiazide) 25 Mg Tablet, 25 MG PO DAILY, (Reported) Entered as Reported by: MARISOL SIDDIQUI on 03/30/19 1630 Hydrocodone/Ibuprofen (Hydrocodone-Ibuprofen 7.5-200) 1 Each Tablet, 1 EA PO Q6H PRN for PAIN-MODERATE (5-7), (Reported) Entered as Reported by: ERICA LY on 01/29/21 1127 Insulin Degludec (Tresiba Flextouch U-100) 100 Unit/1 Ml Insuln.pen, 25 UNIT SQ DAILY Prescribed by: DANICA HERRING on 01/30/21 1508 Lactobacillus Combo No.10 (Probiotic) 1 Each Capsule, 1 CAP PO DAILY, (Reported) Entered as Reported by: MARISOL SIDDIQUI on 03/30/19 1630 Nitrofurantoin Macrocrystal (Nitrofurantoin) 100 Mg Capsule, 100 MG PO DAILY, (Reported) Entered as Reported by: ERICA LY on 11/14/20 1644 Nitrofurantoin Monohyd/M-Cryst (Macrobid 100 mg Capsule) 100 Mg Capsule, 1 TAB PO BID Prescribed by: DERICK KONG on 12/25/21 191 Pantoprazole Sodium (Pantoprazole Sodium) 40 Mg Tablet.dr, 40 MG PO DAILY, (Reported) Entered as Reported by: MARISOL SIDDIQUI on 03/30/19 1630 Phenazopyridine HCl (Pyridium) 200 Mg Tablet, 1 TAB PO TID Prescribed by: DERICK KONG on 12/16/21 181 Polyethylene Glycol 3350 (Miralax) 17 Gm Powd.pack, 17 GM PO TID PRN for CONSTIPATION-2ND LINE, (Reported) Entered as Reported by: ERICA LY on 11/14/20 1644 Pramipexole Di-HCl (Pramipexole Dihydrochloride) 1 Mg Tablet, 1 MG PO BID, (Reported) Entered as Reported by: ERICA LY on 05/31/20 1314 Pramipexole Di-HCl (Mirapex) 1 Mg Tablet, 0.5 MG PO HS Prescribed by: JETHRO RICE on 12/31/212008 Prednisone (Prednisone) 20 Mg Tab, 20 MG PO BID Prescribed by: Merrick Correia on 03/09/22 1229 Ropinirole HCl (Ropinirole HCl) 0.25 Mg Tablet, 0.25 MG PO TID Prescribed by: JETHRO RICE on 12/28/21 1505 Simvastatin (Simvastatin) 40 Mg Tablet, 40 MG PO HS, (Reported) Entered as Reported by: JULIANA LY on 11/08/20 1054 Sitagliptin Phosphate (Januvia) 100 Mg Tablet, 100 MG PO DAILY, (Reported) Entered as Reported by: ERICA LY on 11/14/20 1651 Tramadol HCl (Tramadol HCl) 50 Mg Tablet, 50 MG PO Q6H Prescribed by: DERICK KONG on 03/22/22 1249 Triamcinolone Acet (Triamcinolone Acetonide 0.1% Cream) 15 Gm Cr, 1 APPLIC TOP TID PRN for RASH, (Reported) Entered as Reported by: ERICA LY on 11/14/20 1644 Vitamin E (Vitamin E) 1,000 Unit Capsule, 1,000 UNIT PO DAILY, (Reported) Entered as Reported by: ERICA LY on 11/14/20 1644 Review of Systems Review of Systems Constitutional: see HPI (STEVE FERNANDEZ APRN) Past Prypyon-Ccakqr-Mqsqha Hx Immunizations Up To Date Tetanus Booster (TDap): More than 5yrs (STEVE FERNANDEZ APRN) Seasonal Allergies Seasonal Allergies: No (STEVE FERNANDEZ APRN) Past Medical History Surgery/Hospitalization HX: Brain surgery, 3 c-sections, bilateral knee, hysterectomy, partial thryoidectomy, rotator cuff, t/a History of diabetes, rls, asthma, htn, patricia, pe Surgeries: Yes (R knee replaced x2, port, c/s x3, hernia x5, rotator cuff, left wrist) Abdominal, Appendectomy, Hysterectomy, Joint Replacement, Neurological, Orthopedic, Thyroidectomy, Tonsillectomy Respiratory: Yes Asthma, Pneumonia, Chronic Bronchitis, Pulmonary Embolism, Sleep Apnea Currently Using CPAP: Yes Cardiac: Yes High Cholesterol Neurological: Yes (CHIARI MALFORMATION--SURGICAL REPAIR; RESTLESS LEG SYNDROME, Tremors) Reproductive Disorders: No 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 CHRONIC ABDOMINAL PAIN) Chronic Constipation, Chronic Diarrhea Musculoskeletal: Yes Arthritis, Chronic Back Pain Endocrine: Yes (BENIGN MASS LEFT THYROID REMOVED 01/01/2013) Diabetes, Non-Insulin dep HEENT: Yes Cataract Loss of Vision: Denies Hearing Impairment: Denies Cancer: No Psychosocial: Yes Anxiety, Depression Integumentary: No Blood Disorders: No Adverse Reaction/Blood Tranf: No (STEVE FERNANDEZ APRN) Family Medical History Cancer 03 FATHER (PANCREATIC, PASSED AT 65 FROM THIS) Cataract 03 MOTHER Dementia 03 MOTHER Family history: Arthritis 03 MOTHER Family history: Cardiovascular disease 03 MOTHER (HIGH CHOLESTEROL, [place] ARTERIES 2 TIMES) Hearing loss 03 MOTHER Hypercholesterolemia 03 MOTHER Cancer (STEVE FERNANDEZ APRN) Physical Exam Vital Signs - First Documented 06/05/23 06/05/23 18:53 19:00 Temp 38.9 Pulse 94 Resp 22 B/P (MAP) 135/78 (97) Pulse Ox 93 O2 Delivery Room Air O2 Flow Rate 2.00 (MINE,NASREEN K DO) Capillary Refill : Less Than 3 Seconds (STEVE FERNANDEZ APRN) Height: 5'4.00" Weight: 232lbs. 0.0oz. 105.378586wn; 40.00 BMI Method:Stated General Appearance: WD/WN, mild distress Neck: supple, normal inspection Respiratory: lungs clear, normal breath sounds, no respiratory distress, no accessory muscle use Cardiovascular: regular rate, rhythm Extremities: normal range of motion, normal inspection Neurologic/Psychiatric: alert, normal mood/affect Skin: normal color, warm/dry (STEVE FERNANDEZ APRN) Focused Exam Lactate Level 06/05/23 19:05: Lactic Acid Level 2.15*H (MINE,NASREEN K DO) Lactic Acid Level Laboratory Tests Test 06/05/23 19:05 Lactic Acid Level 2.15 MMOL/L (0.50-2.00) *H (MINE,NASREEN K DO) Progress/Results/Core Measures Suspected Sepsis SIRS Temperature: Pulse: 94 Respiratory Rate: 22 Laboratory Tests 06/05/23 19:05: White Blood Count 13.3H Blood Pressure 135 /78 Mean: 97 06/05/23 19:05: Lactic Acid Level 2.15*H Laboratory Tests 06/05/23 19:05: Creatinine 1.32H, INR Comment 1.2, Platelet Count 234, Total Bilirubin 2.3H (STEVE FERNANDEZ APRN) Results/Orders Lab Results Laboratory Tests Test 06/05/23 18:55 06/05/23 19:05 06/05/23 19:20 06/05/23 20:00 Range/Units Influenza Type A (RT-PCR) Not Detected Not Detecte Influenza Type B (RT-PCR) Not Detected Not Detecte SARS-CoV-2 RNA (RT-PCR) Not Detected Not Detecte White Blood Count 13.3 H 4.3-11.0 10^3/uL Red Blood Count 5.29 H 3.80-5.11 10^6/uL Hemoglobin 15.6 11.5-16.0 g/dL Hematocrit 46 35-52 % Mean Corpuscular Volume 86 80-99 fL Mean Corpuscular Hemoglobin 29 25-34 pg Mean Corpuscular Hemoglobin Concent 34 32-36 g/dL Red Cell Distribution Width 13.2 10.0-14.5 % Platelet Count 234 130-400 10^3/uL Mean Platelet Volume 10.3 9.0-12.2 fL Immature Granulocyte % (Auto) 1 % Neutrophils (%) (Auto) 82 H 42-75 % Lymphocytes (%) (Auto) 8 L 12-44 % Monocytes (%) (Auto) 9 0-12 % Eosinophils (%) (Auto) 0 0-10 % Basophils (%) (Auto) 0 0-10 % Neutrophils # (Auto) 10.9 H 1.8-7.8 10^3/uL Lymphocytes # (Auto) 1.1 1.0-4.0 10^3/uL Monocytes # (Auto) 1.2 H 0.0-1.0 10^3/uL Eosinophils # (Auto) 0.0 0.0-0.3 10^3/uL Basophils # (Auto) 0.0 0.0-0.1 10^3/uL Immature Granulocyte # (Auto) 0.1 0.0-0.1 10^3/uL Prothrombin Time 15.1 H 12.2-14.7 SEC INR Comment 1.2 0.8-1.4 Activated Partial Thromboplast Time 30 24-35 SEC Sodium Level 127 L 135-145 MMOL/L Potassium Level 4.5 3.6-5.0 MMOL/L Chloride Level 93 L 98-107 MMOL/L Carbon Dioxide Level 18 L 21-32 MMOL/L Anion Gap 16 H 5-14 MMOL/L Blood Urea Nitrogen 25 H 7-18 MG/DL Creatinine 1.32 H 0.60-1.30 MG/DL Estimat Glomerular Filtration Rate 43 BUN/Creatinine Ratio 19 Glucose Level 503 *H 70-105 MG/DL Lactic Acid Level 2.15 *H 0.50-2.00 MMOL/L Calcium Level 9.4 8.5-10.1 MG/DL Corrected Calcium 9.6 8.5-10.1 MG/DL Phosphorus Level 2.1 L 2.3-4.7 MG/DL Total Bilirubin 2.3 H 0.1-1.0 MG/DL Aspartate Amino Transf (AST/SGOT) 25 5-34 U/L Alanine Aminotransferase (ALT/SGPT) 26 0-55 U/L Alkaline Phosphatase 165 H 40-136 U/L Total Protein 7.6 6.4-8.2 GM/DL Albumin 3.7 3.2-4.5 GM/DL Beta-Hydroxybutyrate (Chem panel) 0.48 H 0.00-0.27 MMOL/L Urine Color YELLOW Urine Clarity CLOUDY Urine pH 5.0 5-9 Urine Specific Xenia 1.020 1.016-1.022 Urine Protein 2+ H NEGATIVE Urine Glucose (UA) 2+ H NEGATIVE Urine Ketones TRACE H NEGATIVE Urine Nitrite NEGATIVE NEGATIVE Urine Bilirubin NEGATIVE NEGATIVE Urine Urobilinogen 0.2 < = 1.0 MG/DL Urine Leukocyte Esterase 1+ H NEGATIVE Urine RBC (Auto) 3+ H NEGATIVE Urine RBC 25-50 H /HPF Urine WBC TNTC H /HPF Urine Squamous Epithelial Cells 5-10 /HPF Urine Crystals NONE /LPF Urine Bacteria LARGE H /HPF Urine Casts PRESENT /LPF Urine Hyaline Casts 5-10 H /LPF Urine Mucus NEGATIVE /LPF Urine Culture Indicated CULTURE PENDING Blood Gas Puncture Site RR Blood Gas Patient Temperature 38 Arterial Blood pH 7.41 7.37-7.43 Arterial Blood Partial Pressure CO2 37 35-45 MMHG Arterial Blood Partial Pressure O2 81 79-93 MMHG Arterial Blood HCO3 23 23-27 MMOL/L Arterial Blood Total CO2 23.8 21.0-31.0 MMOL/L Arterial Blood Oxygen Saturation 96 94-100 % Arterial Blood Base Excess -1.0 -2.5-2.5 MMOL/L Betito Test YES-POS Blood Gas Ventilator Setting NO Blood Gas Inspired Oxygen 2L (NASREEN BLOUNT DO) Medications Given in ED Current Medications Medications Dose Ordered Sig/Eloise Route Start Time Stop Time Status Last Admin Dose Admin Acetaminophen 1,000 mg ONCE ONCE PO 06/05/23 19:15 06/05/23 19:16 DC 06/05/23 19:18 1,000 MG Azithromycin 500 mg/Sodium Chloride 250 ml @ 250 mls/hr ONCE ONCE IV 06/05/23 19:45 06/05/23 20:44 DC 06/05/23 20:05 250 MLS/HR Ceftriaxone Sodium 1000 mg/ Sodium Chloride 50 ml @ 100 mls/hr ONCE ONCE IV 06/05/23 19:45 06/05/23 20:14 DC 06/05/23 20:01 100 MLS/HR Ketorolac Tromethamine 15 mg ONCE ONCE IVP 06/05/23 19:15 06/05/23 19:16 DC 06/05/23 19:17 15 MG Pramipexole 1 mg ONCE ONCE PO 06/05/23 21:15 06/05/23 21:16 DC 06/05/23 22:04 1 MG (NASREEN BLOUNT DO) Vital Signs/I&O 06/05/23 06/05/23 06/05/23 06/05/23 18:53 19:00 19:10 19:17 Temp 38.9 38.9 Pulse 94 Resp 22 B/P (MAP) 135/78 (97) Pulse Ox 93 93 O2 Delivery Room Air Nasal Cannula Nasal Cannula O2 Flow Rate 2.00 2.00 94.00 06/05/23 06/05/23 06/05/23 19:18 21:15 21:18 Temp 38.9 38.0 Pulse 72 78 Resp 20 B/P (MAP) 128/68 (88) 119/70 Pulse Ox 94 97 O2 Delivery Room Air Nasal Cannula O2 Flow Rate 2.00 2.00 (MINE,NASREEN K DO) Vital Signs/I&O Capillary Refill : Less Than 3 Seconds (STEVE FERNANDEZ APRN) Blood Pressure Mean: 97 Progress Note : Progress Note Patient seen and evaluated, resting in bed, mild distress. Based on exam and symptoms, differential diagnosis includes but not limited to sepsis, pneumonia, COVID, flu. Septic work-up initiated including CBC, CMP coags, lactic acid, blood cultures x2, sputum culture, urinalysis, urine culture. 1 L of IV fluids ordered. Toradol and Tylenol ordered. 2018 Labs and chest x-ray reviewed. CBC shows elevated WBC 13.0, elevated neutrophil percentage 82. CMP shows decreased sodium 127, decreased chloride 93, decreased CO2 18, slightly elevated anion gap 16, elevated BUN 25, slightly elevated creatinine 1.32, decreased GFR 43. Patient's last BUN was 12, creatinine was 0.8, GFR was 71, these were drawn in June of 2022. Blood glucose critically elevated 5.3. Total bilirubin slightly elevated 2.3. Alkaline phosphatase slightly elevated 165. Phosphorus slightly decreased 2.1. Beta hydroxybutyrate 0.48. Lactic acid critically elevated 2.15. Coags show slightly elevated PT 15.1. Urinalysis shows 2+ protein, 2+ glucose, trace ketones, 1+ leukocytes, 3+ RBCs, too many to count WBCs, 5-10 squamous epithelial cells, large bacteria. COVID and flu negative. Chest x-ray shows interval progression of left lung base consolidation. Radiologist suggest that this may represent an infiltrate or atelectasis. There is also concern for smaller pleural effusion. Based on results, history, and exam, this appears to be pneumonia. Rocephin and azithromycin ordered. Patient also has a UTI, Rocephin should cover her UTI. ABG reviewed. ABG grossly normal. pH normal 7.41. Oxygen saturation 96% on ABG. Patient's Curb-65 score places her at a severe risk due to confusion, BUN of 25, and age over 65. Results discussed with patient. I informed patient that she needs to be admitted to the hospital. Patient and agree to admission. [address] Morejon, hospitalist. She agrees to admit patient. She will place admission orders. She wants patient to go to the ICU. 2037 I called report to the eICU physician. (STEVE FERNANDEZ APRN) Diagnostic Imaging Diagonstic Imaging: Xray Plain Films/CT/US/NM/MRI: chest Comments [facility] [place], [place] NAME: ANA LUJAN Ga [facility] REC#: [id number] PT STATUS: REG ER : 1950 PHYSICIAN: STEVE FERNANDEZ APRN ADMIT DATE: 06/05/23/ER Signed Date of Exam:06/05/23 CHEST 1 VIEW, AP/PA ONLY CLINICAL INDICATION: Patient with vomiting and was around grandchild who was sick last week. EXAM: Portable chest x-ray upright view. COMPARISON: Chest x-ray dated 12/18/2020. FINDINGS: There is progression of consolidation involving left lung base which may represent atelectasis versus infiltrates. Left pleural effusion may be present. There is stable mild right bibasilar atelectasis. Stable cardiomegaly. There is no significant pulmonary vascular congestion. Smxwxb-C-Rwte is again seen overlying the right chest in stable position. IMPRESSION: There is interval progression of left lung base consolidation which may represent lung infiltrate or atelectasis. There is concern for a smaller pleural effusion which has developed in interim. Dictated by: Dictated on workstation # [id number] Dict: 06/05/231915 Trans: 06/05/231943 CV [id number] Interpreted by: LU GRAY MD Electronically signed by: LU GRAY MD 06/05/231943 (STEVE FERNANDEZ APRN) Departure Communication (Admissions) Time/Spoke to Admitting Phy: 20:31 Dr. Morejon, hospitalist, see progress note. (STEVE FERNANDEZ APRN) Impression Primary Impression: Sepsis Additional Impressions: Acute kidney injury Urinary tract infection Pneumonia Hyperglycemia Disposition: ADMITTED INPATIENT Condition: Stable Admissions Decision to Admit Reason: Admit from ER (General) Decision to Admit/Date: Jun 05, 2023 Time/Decision to Admit Time: 20:31 (STEVE FERNANDEZ APRN) Departure-Patient Inst. Referrals: NO,LOCAL PHYSICIAN (PCP/Family) Primary Care Physician ATTENDING PHYSICIAN NOTE: I WAS PHYSICALLY PRESENT ER PHYSICIAN, BUT I WAS NOT INVOLVED IN ANY DECISION MAKING OR ANY CARE OF THIS PATIENT, AND I AM NOT COLLABORATING PHYSICIAN. (NASREEN BLOUNT DO) Copy Copies To 1: CALIXTO MEDINA BRITTANY R APRN Jun 05, 2023 19:06 NASREEN BLOUNT DO Jun 05, 2023 23:33
[2023-06-05 19:13] LABS: MEAN PLATELET VOLUME 10.3 fL (9.0-12.2)
[2023-06-05 19:14] LABS: BASOPHILS % (AUTO) 0 % (0-10); EOSINOPHILS % (AUTO) 0 % (0-10); HEMATOCRIT 46 % (35-52); HEMOGLOBIN 15.6 g/dL (11.5-16.0); LYMPHOCYTES # (AUTO) 1.1 10^3/uL (1.0-4.0); LYMPHOCYTES % (AUTO) 8 % (12-44); MEAN CORPUSCULAR HEMOGLOBIN 29 pg (25-34); MEAN CORPUSCULAR HGB CONC 34 g/dL (32-36); MEAN CORPUSCULAR VOLUME 86 fL (80-99); MONOCYTES # (AUTO) 1.2 10^3/uL (0.0-1.0); MONOCYTES % (AUTO) 9 % (0-12); NEUTROPHILS # (AUTO) 10.9 10^3/uL (1.8-7.8); NEUTROPHILS % (AUTO) 82 % (42-75); PLATELET COUNT 234 10^3/uL (130-400); WHITE BLOOD COUNT 13.3 10^3/uL (4.3-11.0)
[2023-06-05] MEDS ORDERED: ACETAMINOPHEN 500 MG TABLET PO ONE (19:15)
[2023-06-05] MEDS ORDERED: NS IV 1000 ML 1,000 ML IV SCH ×3 (19:15→21:45)
[2023-06-05] MEDS ORDERED: KETOROLAC INJ 15 MG/ML VIAL IVP ONE (19:15)
[2023-06-05 19:25] LABS: ALBUMIN 3.7 GM/DL (3.2-4.5); INR 1.2 (0.8-1.4); POTASSIUM 4.5 MMOL/L (3.6-5.0); PROTHROMBIN TIME PATIENT 15.1 SEC (12.2-14.7)
--- NOTE | 2023-06-05 19:25 | Diagnostic Imaging Report ---
CLINICAL INDICATION: Patient with vomiting and was around grandchild who was sick last week. EXAM: Portable chest x-ray upright view. COMPARISON: Chest x-ray dated 12/18/2020. FINDINGS: There is progression of consolidation involving left lung base which may represent atelectasis versus infiltrates. Left pleural effusion may be present. There is stable mild right bibasilar atelectasis. Stable cardiomegaly. There is no significant pulmonary vascular congestion. Nzcwik-Q-Llcg is again seen overlying the right chest in stable position. IMPRESSION: There is interval progression of left lung base consolidation which may represent lung infiltrate or atelectasis. There is concern for a smaller pleural effusion which has developed in interim. Dictated by: Dictated on workstation # [id number]
[2023-06-05 19:27] LABS: CALCIUM 9.4 MG/DL (8.5-10.1)
[2023-06-05 19:28] LABS: TOTAL PROTEIN 7.6 GM/DL (6.4-8.2)
[2023-06-05 19:30] LABS: BILIRUBIN,TOTAL 2.3 MG/DL (0.1-1.0)
[2023-06-05] MEDS ORDERED: AZITHROMYCIN INJECTION 500 MG in NS (IVPB) 250 ML 250 ML IV ONE (19:45)
[2023-06-05] MEDS ORDERED: cefTRIAXone IV/IM 1,000 MG in NS (IVPB) 50 ML 50 ML IV ONE (19:45)
[2023-06-05 19:50] LABS: CREATININE SERUM 1.32 MG/DL (0.60-1.30); PHOSPHORUS 2.1 MG/DL (2.3-4.7)
[2023-06-05 20:02] LABS: BILIRUBIN,URINE NEGATIVE (NEGATIVE); CLARITY,URINE CLOUDY; COLOR,URINE YELLOW; GLUCOSE, URINE (UA) 2+ (NEGATIVE); KETONES,URINE TRACE (NEGATIVE); LEUKOCYTE ESTERASE ,URINE 1+ (NEGATIVE); NITRITE,URINE NEGATIVE (NEGATIVE); PROTEIN,URINE 2+ (NEGATIVE); RBC,URINE 25-50 /HPF; WBC,URINE TNTC /HPF
[2023-06-05 20:03] LABS: BACTERIA,URINE LARGE /HPF
[2023-06-05 20:11] LABS: ABG OXYGEN SATURATION 96 % (94-100); ABG PCO2 37 MMHG (35-45); ABG PH 7.41 (7.37-7.43); ABG PO2 81 MMHG (79-93); ABG TCO2 23.8 MMOL/L (21.0-31.0); ALLENS TEST YES-POS; INSPIRED O2 2L; PATIENT TEMP 38; VENTILATOR NO
[2023-06-05] MEDS ORDERED: PRAMIPEXOLE 0.5 MG TABLET PO ONE (21:15)
[2023-06-05] MEDS ORDERED: MILK OF MAGNESIA 400 MG/5 ML 30 ML UDC PO PRN (21:45)
[2023-06-05] MEDS ORDERED: ONDANSETRON INJECTION 4 MG/2 ML (SDV) IV PRN (21:45)
[2023-06-05] MEDS ORDERED: ANTACID SUSPENSION 30 ML UDC PO PRN (21:45)
[2023-06-05] MEDS ORDERED: HYDROmorphone INJECTION 2 MG/ML VIAL IV PRN (21:45)
[2023-06-05] MEDS ORDERED: BISACODYL 10 MG SUPPOSITORY PR PRN (21:45)
[2023-06-05] MEDS ORDERED: VANCOMYCIN INJECTION 0.1 MG in NS (IVPB) 250 ML 250 ML IV SCH (21:45)
[2023-06-05] MEDS ORDERED: inSUlin (REGULAR) HUMAN 1 UNIT/0.01 ML (CHARGE PER UNIT) IV ONE (21:45)
[2023-06-05] MEDS ORDERED: CALCIUM CARBONATE 500 MG CHEW TABLET PO PRN (21:45)
[2023-06-05] MEDS ORDERED: ACETAMINOPHEN 325 MG TABLET PO PRN (21:45)
[2023-06-05] MEDS ORDERED: ONDANSETRON 4 MG ORAL DISSOLVE TABLET PO PRN (21:45)
[2023-06-05] MEDS ORDERED: diphenhydrAMINE INJ 50 MG/ML VIAL IVP PRN (21:45)
[2023-06-05] MEDS ORDERED: diphenhydrAMINE 25 MG TABLET PO PRN (21:45)
[2023-06-05] MEDS ORDERED: LORazepam 0.5 MG TABLET PO PRN (21:45)
[2023-06-05] MEDS ORDERED: oxyCODONE IMMEDIATE RELEASE 5 MG TABLET PO PRN (21:45)
[2023-06-05] MEDS ORDERED: LACTULOSE SYRUP 10GM/15ML 30ML UDC PO PRN (21:45)
[2023-06-05] MEDS ORDERED: MELATONIN 3 MG TABLET PO PRN (21:45)
[2023-06-05] MEDS ORDERED: NS IV 500 ML 500 ML IV PRN (21:45)
[2023-06-05] MEDS: NS IV 1000 ML 1,000 ML IV SCH (23:32)
[2023-06-05] MEDS: VANCOMYCIN 1 GM/NS 250 ML IVPB IV SCH ×2 (23:32)
[2023-06-06] MEDS: CEFEPIME INJECTION 1,000 MG in NS (IVPB) 50 ML 50 ML IV SCH ×4 (00:58→23:14)
--- NOTE | 2023-06-06 01:03 | Tele-ICU Progress Note ---
Progress Note 73F admitted with UTI, sepsis. Has had generalized weakness, body aches and confusion over the past day. Does have known sick contact with grandchild last week. In ED febrile to 38.9. Otherwise HD stable. A/P: - sepsis: secondary to urinary source. Rocephin started in ED. Sepsis protocol intiated. Rocephin ongoing. Cultures pending. - DM: glucose 503 with ketones slightly elevated to 0.48, gap 16, bicarb 18, lactic 2.3. Unclear whether labs abnormalities are primarily due to DKA vs severe sepsis. Insulin gtt initiated prior to my evaluation. - delirium: secondary to sepsis. Has had prior episodes. Avoid deliriogenic rx, including benzos and benadryl. Patient assessed via real time audiovisual communication system. CCT 8 min Focused Exam Lactate Level 06/05/23 19:05: Lactic Acid Level 2.15*H 06/05/23 22:03: Lactic Acid Level 1.14 Height, Weight, BMI Height: 5'4.00" Weight: 232lbs. 0.0oz. 105.317446ow; 38.15 BMI Method:Stated Lactic Acid Level Laboratory Tests Test 06/05/23 22:03 Lactic Acid Level 1.14 MMOL/L (0.50-2.00) ALFONZO PETERS MD Jun 06, 2023 01:03
[2023-06-06] MEDS: VANCOMYCIN 1 GM/NS 250 ML IVPB IV SCH ×2 (01:45)
[2023-06-06] MEDS: RT-Ipratropium/Albuterol NEB 3 ML VIAL INH SCH ×4 (03:09→21:24)
[2023-06-06 04:06] LABS: BASOPHILS % (AUTO) 0 % (0-10); EOSINOPHILS # (AUTO) 0.2 10^3/uL (0.0-0.3); EOSINOPHILS % (AUTO) 1 % (0-10); HEMATOCRIT 40 % (35-52); HEMOGLOBIN 13.6 g/dL (11.5-16.0); LYMPHOCYTES # (AUTO) 1.6 10^3/uL (1.0-4.0); LYMPHOCYTES % (AUTO) 13 % (12-44); MEAN CORPUSCULAR HEMOGLOBIN 29 pg (25-34); MEAN CORPUSCULAR HGB CONC 34 g/dL (32-36); MEAN CORPUSCULAR VOLUME 87 fL (80-99); MEAN PLATELET VOLUME 10.1 fL (9.0-12.2); MONOCYTES % (AUTO) 8 % (0-12); NEUTROPHILS # (AUTO) 10.1 10^3/uL (1.8-7.8); NEUTROPHILS % (AUTO) 77 % (42-75); PLATELET COUNT 205 10^3/uL (130-400); WHITE BLOOD COUNT 13.1 10^3/uL (4.3-11.0)
[2023-06-06 04:20] LABS: POTASSIUM 3.8 MMOL/L (3.6-5.0)
[2023-06-06 04:22] LABS: CALCIUM 8.1 MG/DL (8.5-10.1)
[2023-06-06 04:23] LABS: TOTAL PROTEIN 6.4 GM/DL (6.4-8.2)
[2023-06-06 04:25] LABS: BILIRUBIN,TOTAL 1.2 MG/DL (0.1-1.0)
[2023-06-06 04:26] LABS: PHOSPHORUS 2.6 MG/DL (2.3-4.7)
[2023-06-06 04:27] LABS: CREATININE SERUM 1.12 MG/DL (0.60-1.30)
[2023-06-06 04:29] LABS: MAGNESIUM 1.8 MG/DL (1.6-2.4)
[2023-06-06] MEDS: MAGNESIUM 1 GM/100 ML IVPB 100 ML IV SCH ×2 (05:26→05:27)
[2023-06-06] MEDS: POTASSIUM CL 10MEQ/50ML IVPB 50 ML IV SCH ×2 (05:26→05:27)
[2023-06-06] MEDS: NS IV 1000 ML 1,000 ML IV SCH ×2 (05:26→10:59)
[2023-06-06] MEDS ORDERED: MAGNESIUM 1 GM/100 ML IVPB 100 ML IV SCH (06:00)
[2023-06-06] MEDS ORDERED: POTASSIUM CL 10MEQ/50ML IVPB 50 ML IV SCH (06:00)
[2023-06-06] MEDS ORDERED: POTASSIUM CHLORIDE 20 MEQ TABLET PO SCH (06:00)
[2023-06-06] MEDS ORDERED: FLU HIGH DOSE (65+ YOA) 240 MCG/0.7 ML 2023-24 (FLUZONE) IM ONE (07:00)
--- NOTE | 2023-06-06 07:51 | Diagnostic Imaging Report ---
Indication: Sepsis AP view of the chest is obtained with comparison made to study one day earlier. There is mild cardiomegaly and pulmonary venous congestion. No pneumothorax is identified. There is no significant pleural fluid. IMPRESSION: Cardiomegaly and pulmonary venous congestion without significant interval change. Dictated by: Dictated on workstation # [id number]
[2023-06-06] MEDS: APIXABAN 5 MG TABLET PO SCH ×2 (08:34→20:38)
[2023-06-06] MEDS: DOCUSATE SODIUM 100 MG CAPSULE PO SCH ×2 (08:47→20:40)
[2023-06-06] MEDS: SENNOSIDES 8.6 MG TABLET PO SCH ×2 (08:47→20:41)
--- NOTE | 2023-06-06 09:18 | Physical Therapy Evaluation ---
PT Evaluation-General Medical Diagnosis Admission Date Jun 05, 2023 at 21:20 Medical Diagnosis: MIRA/pneumonia/sepsis/UTI Onset Date: Jun 05, 2023 Therapy Diagnosis Therapy Diagnosis: debility Height/Weight Height (Feet): 5 Height (Inches): 4.00 Weight (Pounds): 232 Weight (Ounces): 0.0 Precautions Precautions/Isolations: Fall Prevention, Standard Precautions Referral Physician: Darleen Reason for Referral: Evaluation/Treatment Medical History Pertinent Medical History: COPD, DM, HTN Current History ER secondary to weakness/body aches/vomiting Reviewed History: Yes Social History Home: Single Level Current Living Status: Spouse Prior Prior Level of Function SCALE: Activities may be completed with or without assistive devices. 3-Eiqajjqhbu-upgcrxc completes the activity by him/herself with no assistance from a helper. 5-Set-up or Clean-up Assistance-helper sets up or cleans up; patient completes activity. Ravia assists only prior to or following the activity. 4-Supervision or Touching Assistance-helper provides verbal cues and/or touching/steadying and/or contact guard assistance as patient completes activity. Assistance may be provided throughout the activity or intermittently. 3-Partial/Moderate Assistance-helper does LESS THAN HALF the effort. Ravia lifts, holds or supports trunk or limbs, but provides less than half the effort. 2-Substantial/Maximal Assistance-helper does MORE THAN HALF the effort. Ravia lifts or holds trunk or limbs and provides more than half the effort. 5-Xincxgvbz-zmguap does ALL the effort. Patient does none of the effort to complete the activity. Or, the assistance of 2 or more helpers is required for the patient to complete the activity. If activity was not attempted, code reason: 7-Patient Refused. 9-Not Applicable-not attempted and the patient did not perform the activity before the current illness, exacerbation or injury. 10-Not Attempted due to Environmental Limitations-(lack of equipment, weather restraints, etc.). 88-Not Attempted due to Medical Conditions or Safety Concerns. Bed Mobility: 6 Transfers (B,C,W/C): 6 Gait: 6 Stairs: 6 Indoor Mobility (Ambulation): Independent Stairs: Independent Prior Devices Use: None PT Evaluation-Current Subjective Patient agrees to therapy. Objective Patient Orientation: Confused Attachments: IV ROM/Strength ROM Lower Extremities bilateral LE WFL Strength Lower Extremities 4/5 grossly bilateral LE all planes Integumentary/Posture Bowel Incontinence: No Bladder Incontinence: No Posture WFL Neuromuscular (Tone, Coordination, Reflexes) grossly intact Sensory Vision: Functional Hearing: Functional Transfers Lying to Sitting/Side of Bed(Q: 6 Sit to Stand (QC): 4 Chair/Zpd-mr-Tfntw Xfer(QC): 4 Toilet Transfer (QC): 4 Gait Mode of Locomotion: Walk Anticipated Mode of Locomotion: Walk Walk 10 feet (QC): 4 Distance: 10' Gait Assistive Device: FWW Comments/Gait Description safe and functional with no deviation (SBA) Balance Sitting Static: Normal Sitting Dynamic: Normal Standing Static: Normal Standing Dynamic: Normal Assessment/Needs Patient will be seen short term by skilled PT to address functional mobility to ensure safe return to home with spouse at maximum LOF. Rehab Potential: Fair PT Short Term Goals Short Term Goals Time Frame: Jun 14, 2023 Roll Left & Right: 6 Sit to lyin Lying to sitting on side of be: 6 Sit to stand: 6 Chair/edx-qs-gsfiq transfer: 6 Toilet transfer: 6 Walk 10 feet: 6 Walk 50 feet with two turns: 6 Walk 150 feet: 6 PT Plan Problem List Problem List: Safety Treatment/Plan Treatment Plan: Continue Plan of Care Treatment Plan: Education, Functional Activity Rea, Functional Strength, Gait, Safety, Therapeutic Exercise Treatment Duration: Jun 14, 2023 Frequency: 5 times per week Estimated Hrs Per Day: .25 hour per day Patient and/or Family Agrees t: Yes Time Time In: 840 Time Out: 850 DATE: Jun 06, 2023 Total Billed Treatment Time: 10 Total Billed Treatment 1 visit [facility] 10 min BENJAMIN BARNARD PT Jun 06, 2023 09:18
--- NOTE | 2023-06-06 09:32 | Occupational Therapy Eval ---
OT Evaluation-General/PLF Medical Diagnosis Admission Date Jun 05, 2023 at 21:20 Medical Diagnosis: MIRA/pneumonia/sepsis/UTI Onset Date: Jun 05, 2023 Therapy Diagnosis Therapy Diagnosis: weakness, confusion Height/Weight Height (Feet): 5 Height (Inches): 4.00 Weight (Pounds): 232 Weight (Ounces): 0.0 Precautions Precautions/Isolations: Fall Prevention, Standard Precautions Weight Bear Status Weight Bearing Restriction: Full Weight Bearing Referral Physician: Darleen Referral Reason: Self Care, Evaluation/Treatment Medical History Pertinent Medical History: COPD, DM, HTN Reviewed History: Yes Social History Home: Single Level Current Living Status: Spouse ADL-Prior Level of Function SCALE: Activities may be completed with or without assistive devices. 0-Ljmhhgfhqv-afszips completes the activity by him/herself with no assistance from a helper. 5-Set-up or Clean-up Assistance-helper sets up or cleans up; patient completes activity. [place] assists only prior to or following the activity. 4-Supervision or Touching Assistance-helper provides verbal cues and/or touching/steadying and/or contact guard assistance as patient completes activity. Assistance may be provided throughout the activity or intermittently. 3-Partial/Moderate Assistance-helper does LESS THAN HALF the effort. [place] lifts, holds or supports trunk or limbs, but provides less than half the effort. 2-Substantial/Maximal Assistance-helper does MORE THAN HALF the effort. [place] lifts or holds trunk or limbs and provides more than half the effort. 0-Dgimuqglu-fwavri does ALL the effort. Patient does none of the effort to complete the activity. Or, the assistance of 2 or more helpers is required for the patient to complete the activity. If activity was not attempted, code reason: 7-Patient Refused. 9-Not Applicable-not attempted and the patient did not perform the activity before the current illness, exacerbation or injury. 10-Not Attempted due to Environmental Limitations-(lack of equipment, weather restraints, etc.). 88-Not Attempted due to Medical Conditions or Safety Concerns. Self Care: Independent Functional Cognition: Independent OT Current Status Subjective agreeable to OT Mental Status/Objective Patient Orientation: Person, Place Attachments: IV, Oxygen (removed), SCD's, Telemetry Current Hand Dominance: Right Upper Extremity ROM BUE ROM WFLS Upper Extremity Coordination slow motor responses Upper Extremity Strength -4/5 ADL-Treatment Eating (QC): 5 Oral Hygiene (QC): 5 Shower/Bathe Self (QC): 88 Upper Body Dressing (QC): 4 Lower Body Dressing (QC): 4 On/Off Footwear (QC): 4 Toileting Hygiene (QC): 4 (BSC) Education OT Patient Education: Correct positioning, Modified ADL techniques, Progress toward Goal/Update tx plan, Purpose of tx/functional activities, Reviewed precautions, Rehab process, Safety issues, Transfer techniques, Use of adapted equipment Teaching Recipient: Patient Teaching Methods: Demonstration, Discussion Response to Teaching: Reinforcement Needed OT [facility]itentiary Goals Private Watchman Goals Eating (QC): 6 Oral Hygiene (QC): 6 Toileting Hygiene (QC): 6 Shower/Bathe Self (QC): 6 Upper Body Dressing (QC): 6 Lower Body Dressing (QC): 6 On/Off Footwear (QC): 6 1=Demonstrate adherence to instructed precautions during ADL tasks. 2=Patient will verbalize/demonstrate understanding of assistive devices/modifications for ADL. 3=Patient will improve strength/tolerance for activity to enable patient to perform ADL's. OT Education/Plan Problem List/Assessment Assessment: Decreased Activ Tolerance, Impaired Funct Balance, Impaired Self- Care Skills Discharge Recommendations Plan/Recommendations: Continue POC Treatment Plan/Plan of Care Treatment,Training & Education: Yes Patient would benefit from OT for education, treatment and training to promote independence in ADL's, mobility, safety and/or upper extremity function for ADL's. Plan of Care: ADL Retraining, Functional Mobility, Group Exercise/Act as Ind, UE Funct Exercise/Act Treatment Duration: Jun 09, 2023 Frequency: 3 times per week (3-5 times per week) Estimated Hrs Per Day: .25 hour per day Agreement: Yes Rehab Potential: Fair Time Start Time: 08:31 Stop Time: 08:47 DATE: Jun 06, 2023 Total Time Billed (hr/min): 16 Billed Treatment Time EVM 16 min SHILO ROLLINS OT Jun 06, 2023 09:32
[2023-06-06] MEDS ORDERED: GLIP5TAB13 PO (10:15)
[2023-06-06] MEDS ORDERED: INSU100I32 SQ (10:15)
[2023-06-06] MEDS ORDERED: CELE-91 PO (10:15)
[2023-06-06] MEDS ORDERED: NF-SOLIF5T PO (10:15)
--- NOTE | 2023-06-06 11:06 | History & Physical ---
MENDOZANICHOLASSHANAE 06/06/23 1106: History of Present Illness History of Present Illness Reason for visit/HPI This is a 73- year old female who presented to the ER yesterday with generalized weakness and vomiting. Patient was found to have a fever in the ED and family reported episodes of confusion. Patient has been subsequently admitted. She is alert and oriented x2- the patient is not oriented to time she thinks it is either 2004 or 2014 today. Patient reports feeling well today- and is having no weakness or vomiting today. Patient reports no nausea, chest pain, shortness of breath, or headaches today. Date of Admission Jun 05, 2023 at 21:20 Time Seen by a Provider: 11:04 I consulted on this patient on 06/06/23 11:02 Attending Physician Lory Cutler DO Admitting Physician Admitting Physician: Dorothy You DO Attending Physician: Dorothy You DO Consult Allergies and Home Medications Allergies Coded Allergies: No Known Drug Allergies (Unverified , 02/11/14) Patient Home Medication List Apixaban (Eliquis) 5 Mg Tablet, 5 MG PO BID, (Reported) Entered as Reported by: ERICA LY on 05/31/20 1314 Last Action: Held Celecoxib (Celecoxib) 200 Mg Capsule, 200 MG PO DAILY, (Reported) Entered as Reported by: ERICA LY on 06/06/23 1015 Last Action: Held Cholecalciferol (Vitamin D3) (Vitamin D3) 25 Mcg (1000 Unit) Tablet, 25 MCG PO HS, (Reported) Entered as Reported by: ERICA LY on 11/14/20 1644 Last Action: Continued Cyanocobalamin (Vitamin B-12) (Vitamin B-12) 1,000 Mcg Tablet, 1,000 MCG PO DAILY, (Reported) Entered as Reported by: ERICA LY on 11/14/20 1644 Last Action: Continued Ferrous Sulfate (Iron) 325 Mg (65 Mg Iron) Tablet, 325 MG PO HS, (Reported) Entered as Reported by: ERICA LY on 05/31/19 0903 Last Action: Continued Glipizide (Glipizide) 5 Mg Tablet, 5 MG PO HS, (Reported) Entered as Reported by: ERICA LY on 06/06/23 1015 Last Action: Continued Insulin Degludec (Tresiba Flextouch U-100) 100 Unit/Ml (3 Ml) Insuln.pen, 50 UNIT SQ BID, (Reported) Entered as Reported by: ERICA LY on 06/06/23 1015 Last Action: Converted Pramipexole Di-HCl (Pramipexole Dihydrochloride) 1 Mg Tablet, 1 MG PO BID, (Reported) Entered as Reported by: ERICA LY on 05/31/20 1314 Last Action: Converted Simvastatin (Simvastatin) 40 Mg Tablet, 40 MG PO HS, (Reported) Entered as Reported by: JULIANA LY on 11/08/20 1054 Last Action: Converted Sitagliptin Phosphate (Januvia) 100 Mg Tablet, 100 MG PO DAILY, (Reported) Entered as Reported by: ERICA LY on 11/14/20 1651 Last Action: Converted Solifenacin Succinate (Vesicare) 5 Mg Tablet, 5 MG PO DAILY, (Reported) Entered as Reported by: ERICA LY on 06/06/23 1015 Last Action: Converted Discontinued Medications Amitriptyline HCl (Amitriptyline HCl) 75 Mg Tablet, 75 MG PO HS, (Reported) Discontinued Reason: No Longer Taking Entered as Reported by: ERICA LY on 05/31/20 1314 Last Action: Discontinued Ascorbate Calcium (Vitamin C) 500 Mg Tablet, 500 MG PO DAILY, (Reported) Discontinued Reason: No Longer Taking Entered as Reported by: ERICA LY on 01/29/21 1130 Last Action: Discontinued Carbidopa/Levodopa (Carbidopa-Levodopa 25-100 Tab) 1 Each Tablet, 1 EA PO BID, (Reported) Discontinued Reason: No Longer Taking Entered as Reported by: ERICA LY on 01/29/21 1127 Last Action: Discontinued Celecoxib (Celebrex) 200 Mg Capsule, 200 MG PO DAILY, (Reported) Discontinued Reason: No Longer Taking Entered as Reported by: JULIANA LY on 11/08/20 1054 Last Action: Discontinued Cephalexin (Cephalexin) 500 Mg Tablet, 500 MG PO BID Discontinued Reason: No Longer Taking Prescribed by: DERICK KONG on 12/16/21 1811 Last Action: Discontinued Ciprofloxacin HCl (Ciprofloxacin HCl) 250 Mg Tablet, 250 MG PO Q12H Discontinued Reason: No Longer Taking Prescribed by: NASRA VELASQUEZ on 12/18/21 1107 Last Action: Discontinued Cyanocobalamin (Cyanocobalamin Injection) 1,000 Mcg/Ml Inj, 1,000 MCG IM MONTLY, (Reported) Discontinued Reason: No Longer Taking Entered as Reported by: ERICA LY on 11/14/20 1651 Last Action: Discontinued Docusate Sodium (Docusate Sodium) 100 Mg Capsule, 100-200 MG PO TID PRN for CONSTIPATION-1ST LINE, (Reported) Discontinued Reason: No Longer Taking Entered as Reported by: ERICA LY on 11/14/20 1644 Last Action: Discontinued Estradiol (Estradiol) 42.5 Gm Cream.appl, 1 APPLIC VG UD PRN for DRYNESS/ITCHING, (Reported) Discontinued Reason: No Longer Taking Entered as Reported by: JULIANA LY on 11/08/20 1054 Last Action: Discontinued Fluconazole (Fluconazole) 150 Mg Tablet, 150 MG PO FRI,TH, (Reported) Discontinued Reason: No Longer Taking Entered as Reported by: ERICA LY on 11/14/20 1644 Last Action: Discontinued Fluconazole (Diflucan) 150 Mg Tablet, 150 MG PO ONCE Discontinued Reason: No Longer Taking Prescribed by: DERICK KONG on 12/25/21 1917 Last Action: Discontinued Hydrochlorothiazide (Hydrochlorothiazide) 25 Mg Tablet, 25 MG PO DAILY, (Reported) Discontinued Reason: No Longer Taking Entered as Reported by: MARISOL SIDDIQUI on 03/30/19 1630 Last Action: Discontinued Hydrocodone/Ibuprofen (Hydrocodone-Ibuprofen 7.5-200) 1 Each Tablet, 1 EA PO Q6H PRN for PAIN-MODERATE (5-7), (Reported) Discontinued Reason: No Longer Taking Entered as Reported by: ERICA LY on 01/29/21 1127 Last Action: Discontinued Insulin Degludec (Tresiba Flextouch U-100) 100 Unit/1 Ml Insuln.pen, 25 UNIT SQ DAILY Discontinued Reason: No Longer Taking Prescribed by: DANICA HERRING on 01/30/21 1508 Last Action: Discontinued Lactobacillus Combo No.10 (Probiotic) 1 Each Capsule, 1 CAP PO DAILY, (Reported) Discontinued Reason: No Longer Taking Entered as Reported by: MARISOL SIDDIQUI on 03/30/19 1630 Last Action: Discontinued Nitrofurantoin Macrocrystal (Nitrofurantoin) 100 Mg Capsule, 100 MG PO DAILY, (Reported) Discontinued Reason: No Longer Taking Entered as Reported by: ERICA LY on 11/14/20 164 Last Action: Discontinued Nitrofurantoin Monohyd/M-Cryst (Macrobid 100 mg Capsule) 100 Mg Capsule, 1 TAB PO BID Discontinued Reason: No Longer Taking Prescribed by: DERICK KONG on 12/25/21 1917 Last Action: Discontinued Pantoprazole Sodium (Pantoprazole Sodium) 40 Mg Tablet.dr, 40 MG PO DAILY, (Reported) Discontinued Reason: No Longer Taking Entered as Reported by: MARISOL SIDDIQUI on 03/30/19 1630 Last Action: Discontinued Phenazopyridine HCl (Pyridium) 200 Mg Tablet, 1 TAB PO TID Discontinued Reason: No Longer Taking Prescribed by: DERICK KONG on 12/16/21 181 Last Action: Discontinued Polyethylene Glycol 3350 (Miralax) 17 Gm Powd.pack, 17 GM PO TID PRN for CONSTIPATION-2ND LINE, (Reported) Discontinued Reason: No Longer Taking Entered as Reported by: ERICA LY on 11/14/201643 Last Action: Discontinued Pramipexole Di-HCl (Mirapex) 1 Mg Tablet, 0.5 MG PO HS Discontinued Reason: No Longer Taking Prescribed by: JETHRO RICE on 12/31/212008 Last Action: Discontinued Prednisone (Prednisone) 20 Mg Tab, 20 MG PO BID Discontinued Reason: No Longer Taking Prescribed by: Merrick Correia on 03/09/22 1229 Last Action: Discontinued Ropinirole HCl (Ropinirole HCl) 0.25 Mg Tablet, 0.25 MG PO TID Discontinued Reason: No Longer Taking Prescribed by: JETHRO RICE on 12/28/21 1505 Last Action: Discontinued Tramadol HCl (Tramadol HCl) 50 Mg Tablet, 50 MG PO Q6H Discontinued Reason: No Longer Taking Prescribed by: DERICK KONG on 03/22/22 1249 Last Action: Discontinued Triamcinolone Acet (Triamcinolone Acetonide 0.1% Cream) 15 Gm Cr, 1 APPLIC TOP TID PRN for RASH, (Reported) Discontinued Reason: No Longer Taking Entered as Reported by: ERICA LY on 11/14/201643 Last Action: Discontinued Vitamin E (Vitamin E) 1,000 Unit Capsule, 1,000 UNIT PO DAILY, (Reported) Discontinued Reason: No Longer Taking Entered as Reported by: ERICA LY on 11/14/201643 Last Action: Discontinued Past Kkalduw-Cmcbka-Moeuen Hx Patient Social History Marrital Status: Tobacco Use?: No Smoking Status: Never a Smoker Smokeless Tobacco Frequency: Never a User Use of E-Cig and/or Vaping dev: No Substance use?: No Alcohol Use?: No Alcohol type: Beer, Wine Pt feels they are or have been: No Immunizations Up To Date Date of Influenza Vaccine: Jun 25, 2020 First/Initial COVID19 Vaccinat: NO Tetanus Booster (TDap): Unknown Hepatitis A: No Hepatitis B: No Date of Pneumonia Vaccine: Apr 15, 2015 Seasonal Allergies Seasonal Allergies: No Current Status Advance Directives: No Communicates: Verbally Primary Language: Nauruan Preferred Spoken Language: Nauruan Is interpretation needed?: No Implanted or Applied Medical D: Port-a-cath Past Medical History Surgeries: Abdominal, Appendectomy, Hysterectomy, Joint Replacement, Neurological, Orthopedic, Thyroidectomy, Tonsillectomy Asthma, Pneumonia, Chronic Bronchitis, Pulmonary Embolism, Sleep Apnea Currently Using CPAP: Yes 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 Sexually Transmitted Disease: No HIV/AIDS: No Bladder Infection Chronic Constipation, Chronic Diarrhea Arthritis, Chronic Back Pain Diabetes, Non-Insulin dep Cataract Loss of Vision: Denies Hearing Impairment: Denies Anxiety, Depression Blood Disorders: No Adverse Reaction/Blood Tranf: No Family Medical History Cancer 03 FATHER (PANCREATIC, PASSED AT 65 FROM THIS) Cataract 03 MOTHER Dementia 03 MOTHER Family history: Arthritis 03 MOTHER Family history: Cardiovascular disease 03 MOTHER (HIGH CHOLESTEROL, BALOON ARTERIES 2 TIMES) Hearing loss 03 MOTHER Hypercholesterolemia 03 MOTHER Cancer Review of Systems Constitutional: No chills, No fever EENTM: No blurred vision, No double vision Respiratory: No short of breath Cardiovascular: No chest pain Gastrointestinal: No abdominal pain, No jaundice Musculoskeletal: No back pain, No joint pain Skin: No change in color, No change in hair/nails Psychiatric/Neurological: Denies Depressed, Denies Emotional Problems Physical Exam Vital Signs Vital Signs - First Documented 06/05/23 06/05/23 06/05/23 18:53 19:00 22:14 Temp 38.9 Pulse 94 Resp 22 B/P (MAP) 135/78 (97) Pulse Ox 93 O2 Delivery Room Air O2 Flow Rate 2.00 FiO2 28 Capillary Refill : Less Than 3 Seconds Height, Weight, BMI Height: 5'4.00" Weight: 232lbs. 0.0oz. 105.270952le; 38.15 BMI Method:Stated General Appearance: No Apparent Distress, WD/WN Eyes: Bilateral Eye Normal Inspection, Bilateral Eye PERRL HEENT: PERRL/EOMI, TMs Normal Neck: Full Range of Motion, Normal Inspection Respiratory: Lungs Clear, Normal Breath Sounds, No Accessory Muscle Use Cardiovascular: Regular Rate, Rhythm, No JVD Gastrointestinal: Non Tender, Soft Back: Normal Inspection, No Vertebral Tenderness Extremity: Normal Capillary Refill, Normal Inspection Neurologic/Psychiatric: Alert, No Motor/Sensory Deficits, Normal Mood/Affect Skin: Normal Color, Warm/Dry Assessment/Plan Assessment and Plan Assessment: Sepsis Diabetes Mellitus Delirium Nausea Plan: IV Antibitoics- Cefepime and Vancomycin IV fluids Anti-emetics Continue PT Admission Diagnosis Admission Status: Inpatient Order (span 2 midnights) DOROTHY YOU DO 06/07/23 0602: History of Present Illness History of Present Illness Reason for visit/HPI Chief complaint: Weakness due to pneumonia and UTI HPI: This is a 73-year-old female who presents to the ER with weakness and fever found to have pneumonia and UTI. Patient was placed on broad-spectrum antibiotics and placed in the ICU due to altered state. Currently she is doing much better. Allergies and Home Medications Allergies Coded Allergies: No Known Drug Allergies (Unverified , 02/11/14) Patient Home Medication List Home Medication List Reviewed: Yes Apixaban (Eliquis) 5 Mg Tablet, 5 MG PO BID, (Reported) Entered as Reported by: ERICA LY on 05/31/20 1314 Last Action: Held Celecoxib (Celecoxib) 200 Mg Capsule, 200 MG PO DAILY, (Reported) Entered as Reported by: ERICA LY on 06/06/23 1015 Last Action: Held Cholecalciferol (Vitamin D3) (Vitamin D3) 25 Mcg (1000 Unit) Tablet, 25 MCG PO HS, (Reported) Entered as Reported by: ERICA LY on 11/14/20 1644 Last Action: Continued Cyanocobalamin (Vitamin B-12) (Vitamin B-12) 1,000 Mcg Tablet, 1,000 MCG PO DAILY, (Reported) Entered as Reported by: ERICA LY on 11/14/20 1644 Last Action: Continued Ferrous Sulfate (Iron) 325 Mg (65 Mg Iron) Tablet, 325 MG PO HS, (Reported) Entered as Reported by: ERICA LY on 05/31/19 0903 Last Action: Continued Glipizide (Glipizide) 5 Mg Tablet, 5 MG PO HS, (Reported) Entered as Reported by: ERICA YL on 06/06/23 1015 Last Action: Continued Insulin Degludec (Tresiba Flextouch U-100) 100 Unit/Ml (3 Ml) Insuln.pen, 50 UNIT SQ BID, (Reported) Entered as Reported by: ERICA LY on 06/06/23 1015 Last Action: Converted Pramipexole Di-HCl (Pramipexole Dihydrochloride) 1 Mg Tablet, 1 MG PO BID, (Rep orted) Entered as Reported by: ERICA LY on 05/31/20 1314 Last Action: Converted Simvastatin (Simvastatin) 40 Mg Tablet, 40 MG PO HS, (Reported) Entered as Reported by: JULIANA LY on 11/08/20 1054 Last Action: Converted Sitagliptin Phosphate (Januvia) 100 Mg Tablet, 100 MG PO DAILY, (Reported) Entered as Reported by: ERICA LY on 11/14/20 1651 Last Action: Converted Solifenacin Succinate (Vesicare) 5 Mg Tablet, 5 MG PO DAILY, (Reported) Entered as Reported by: ERICA LY on 06/06/23 1015 Last Action: Converted Discontinued Medications Amitriptyline HCl (Amitriptyline HCl) 75 Mg Tablet, 75 MG PO HS, (Reported) Discontinued Reason: No Longer Taking Entered as Reported by: ERICA LY on 05/31/20 1314 Last Action: Discontinued Ascorbate Calcium (Vitamin C) 500 Mg Tablet, 500 MG PO DAILY, (Reported) Discontinued Reason: No Longer Taking Entered as Reported by: ERICA LY on 01/29/21 1130 Last Action: Discontinued Carbidopa/Levodopa (Carbidopa-Levodopa 25-100 Tab) 1 Each Tablet, 1 EA PO BID, (Reported) Discontinued Reason: No Longer Taking Entered as Reported by: ERICA LY on 01/29/21 1127 Last Action: Discontinued Celecoxib (Celebrex) 200 Mg Capsule, 200 MG PO DAILY, (Reported) Discontinued Reason: No Longer Taking Entered as Reported by: JULIANA LY on 11/08/20 1054 Last Action: Discontinued Cephalexin (Cephalexin) 500 Mg Tablet, 500 MG PO BID Discontinued Reason: No Longer Taking Prescribed by: DERICK KONG on 12/16/21 1811 Last Action: Discontinued Ciprofloxacin HCl (Ciprofloxacin HCl) 250 Mg Tablet, 250 MG PO Q12H Discontinued Reason: No Longer Taking Prescribed by: NASRA VELASQUEZ on 12/18/21 1107 Last Action: Discontinued Cyanocobalamin (Cyanocobalamin Injection) 1,000 Mcg/Ml Inj, 1,000 MCG IM MONTLY, (Reported) Discontinued Reason: No Longer Taking Entered as Reported by: ERICA LY on 11/14/20 1651 Last Action: Discontinued Docusate Sodium (Docusate Sodium) 100 Mg Capsule, 100-200 MG PO TID PRN for CONSTIPATION-1ST LINE, (Reported) Discontinued Reason: No Longer Taking Entered as Reported by: ERICA LY on 11/14/20 1644 Last Action: Discontinued Estradiol (Estradiol) 42.5 Gm Cream.appl, 1 APPLIC VG UD PRN for DRYNESS/ITCHING, (Reported) Discontinued Reason: No Longer Taking Entered as Reported by: JULIANA LY on 11/08/20 1054 Last Action: Discontinued Fluconazole (Fluconazole) 150 Mg Tablet, 150 MG PO FRI,, (Reported) Discontinued Reason: No Longer Taking Entered as Reported by: ERICA LY on 11/14/20 1644 Last Action: Discontinued Fluconazole (Diflucan) 150 Mg Tablet, 150 MG PO ONCE Discontinued Reason: No Longer Taking Prescribed by: DERICK KONG on 12/25/21 1917 Last Action: Discontinued Hydrochlorothiazide (Hydrochlorothiazide) 25 Mg Tablet, 25 MG PO DAILY, (Reported) Discontinued Reason: No Longer Taking Entered as Reported by: MARISOL SIDDIQUI on 03/30/19 1630 Last Action: Discontinued Hydrocodone/Ibuprofen (Hydrocodone-Ibuprofen 7.5-200) 1 Each Tablet, 1 EA PO Q6H PRN for PAIN-MODERATE (5-7), (Reported) Discontinued Reason: No Longer Taking Entered as Reported by: ERICA LY on 01/29/21 1127 Last Action: Discontinued Insulin Degludec (Tresiba Flextouch U-100) 100 Unit/1 Ml Insuln.pen, 25 UNIT SQ DAILY Discontinued Reason: No Longer Taking Prescribed by: DANICA HERRING on 01/30/21 1508 Last Action: Discontinued Lactobacillus Combo No.10 (Probiotic) 1 Each Capsule, 1 CAP PO DAILY, (Reported) Discontinued Reason: No Longer Taking Entered as Reported by: MARISOL SIDDIQUI on 03/30/19 1630 Last Action: Discontinued Nitrofurantoin Macrocrystal (Nitrofurantoin) 100 Mg Capsule, 100 MG PO DAILY, (Reported) Discontinued Reason: No Longer Taking Entered as Reported by: ERICA LY on 11/14/20 1644 Last Action: Discontinued Nitrofurantoin Monohyd/M-Cryst (Macrobid 100 mg Capsule) 100 Mg Capsule, 1 TAB PO BID Discontinued Reason: No Longer Taking Prescribed by: DERICK KONG on 12/25/21 191 Last Action: Discontinued Pantoprazole Sodium (Pantoprazole Sodium) 40 Mg Tablet.dr, 40 MG PO DAILY, (Reported) Discontinued Reason: No Longer Taking Entered as Reported by: MARISOL SIDDIQUI on 03/30/191629 Last Action: Discontinued Phenazopyridine HCl (Pyridium) 200 Mg Tablet, 1 TAB PO TID Discontinued Reason: No Longer Taking Prescribed by: DERICK KONG on 12/16/21 1813 Last Action: Discontinued Polyethylene Glycol 3350 (Miralax) 17 Gm Powd.pack, 17 GM PO TID PRN for CONSTIPATION-2ND LINE, (Reported) Discontinued Reason: No Longer Taking Entered as Reported by: ERICA LY on 11/14/20 1644 Last Action: Discontinued Pramipexole Di-HCl (Mirapex) 1 Mg Tablet, 0.5 MG PO HS Discontinued Reason: No Longer Taking Prescribed by: JETHRO RICE on 12/31/212008 Last Action: Discontinued Prednisone (Prednisone) 20 Mg Tab, 20 MG PO BID Discontinued Reason: No Longer Taking Prescribed by: Merrick Correia on 03/09/22 1229 Last Action: Discontinued Ropinirole HCl (Ropinirole HCl) 0.25 Mg Tablet, 0.25 MG PO TID Discontinued Reason: No Longer Taking Prescribed by: JETHRO RICE on 12/28/21 1505 Last Action: Discontinued Tramadol HCl (Tramadol HCl) 50 Mg Tablet, 50 MG PO Q6H Discontinued Reason: No Longer Taking Prescribed by: DERICK KONG on 03/22/22 1249 Last Action: Discontinued Triamcinolone Acet (Triamcinolone Acetonide 0.1% Cream) 15 Gm Cr, 1 APPLIC TOP TID PRN for RASH, (Reported) Discontinued Reason: No Longer Taking Entered as Reported by: ERICA LY on 11/14/20 1644 Last Action: Discontinued Vitamin E (Vitamin E) 1,000 Unit Capsule, 1,000 UNIT PO DAILY, (Reported) Discontinued Reason: No Longer Taking Entered as Reported by: ERICA LY on 11/14/201643 Last Action: Discontinued Past Wezngre-Nsmqwk-Jkxzbu Hx Patient Social History Marrital Status: Employed/Student: retired Smoking Status: Unknown if Ever Smoked Past Medical History Pneumonia High Cholesterol, Hypertension Family Medical History Cancer 03 FATHER (PANCREATIC, PASSED AT 65 FROM THIS) Cataract 03 MOTHER Dementia 03 MOTHER Family history: Arthritis 03 MOTHER Family history: Cardiovascular disease 03 MOTHER (HIGH CHOLESTEROL, BALOON ARTERIES 2 TIMES) Hearing loss 03 MOTHER Hypercholesterolemia 03 MOTHER Review of Systems Constitutional: see HPI Physical Exam General Appearance: No Apparent Distress, WD/WN, Chronically ill Eyes: Bilateral Eye Normal Inspection, Bilateral Eye PERRL, Bilateral Eye EOMI HEENT: PERRL/EOMI, Normal ENT Inspection, Pharynx Normal Neck: Full Range of Motion, Normal Inspection, Non Tender, Supple, Carotid Bruit Respiratory: Chest Non Tender, Lungs Clear, Normal Breath Sounds, No Accessory Muscle Use, No Respiratory Distress Cardiovascular: Regular Rate, Rhythm, No Edema, No Gallop, No JVD, No Murmur, Normal Peripheral Pulses Gastrointestinal: Normal Bowel Sounds, No Organomegaly, No Pulsatile Mass, Non Tender, Soft Back: Normal Inspection, No CVA Tenderness, No Vertebral Tenderness Extremity: Normal Capillary Refill, Normal Inspection, Normal Range of Motion, Non Tender, No Calf Tenderness, No Pedal Edema Neurologic/Psychiatric: Alert, Oriented x3, No Motor/Sensory Deficits, Normal Mood/Affect, Disoriented Skin: Normal Color, Warm/Dry Lymphatic: No Adenopathy Assessment/Plan Assessment and Plan Assessment: Sepsis Pneumonia UTI Diabetes Altered mental status Plan: Moved to fourth floor IV antibiotics Admission Diagnosis Admission Status: Inpatient Order (span 2 midnights) Reason for Inpatient Admission: Sepsis Supervisory-Addendum Brief Verification & Attestation Participated in pt care: history, MDM, physical Personally performed: exam, history, MDM, supervision of care Care discussed with: Medical Student Procedures: n/a Results interpretation: Verified all documentation Verification and Attestation of Medical Student E/M Service A medical student performed and documented this service in my presence. I reviewed and verified all information documented by the medical student and made modifications to such information, when appropriate. I personally performed the physical exam and medical decision making. Dorothy You, Jun 07, 2023,06:02 SHREE MENDOZA Jun 06, 2023 11:06 DOROTHY YOU DO Jun 07, 2023 06:02
[2023-06-06 15:41] VITALS: BP 161/72
[2023-06-06] MEDS ORDERED: VANCOMYCIN 1500MG/300ML PREMIX IV SCH (16:00)
[2023-06-06] MEDS: glipiZIDE 5 MG TABLET PO SCH (16:41)
[2023-06-06] MEDS: inSUlin ASPART 1 UNIT/0.01 ML (PER UNIT) SC SCH ×2 (16:42→20:40)
[2023-06-06 19:22] VITALS: BP 118/56
[2023-06-06] MEDS: FERROUS SULFATE 325 MG (IRON) TABLET PO SCH (20:38)
[2023-06-06] MEDS: VITAMIN D3 25 MCG (1,000 UNITS) TABLET PO SCH (20:38)
[2023-06-06] MEDS: PRAMIPEXOLE 0.5 MG TABLET PO SCH (20:39)
[2023-06-06] MEDS: MICONAZOLE 2% POWDER 90 GM TOP SCH (20:39)
[2023-06-06] MEDS: inSUlin DETERMIR 1 UNIT/0.01 ML (CHARGE PER UNIT) SQ SCH (20:40)
[2023-06-06] MEDS ORDERED: NON-FORMULARY MEDICATION 1 EA EA (Pramipexole Di-HCl (Pramipexole Dihydrochloride) 1 MG) PO SCH (21:00)
[2023-06-06] MEDS ORDERED: NON-FORMULARY MEDICATION 1 EA EA (Simvastatin 40 MG) PO SCH (21:00)
[2023-06-06] MEDS ORDERED: INSULIN DEGLUDEC 50 UNIT SQ SCH (21:00)
[2023-06-06 23:16] VITALS: BP 132/60
[2023-06-07] MEDS: RT-Ipratropium/Albuterol NEB 3 ML VIAL INH SCH ×4 (02:50→20:44)
[2023-06-07 04:32] VITALS: BP 148/64
[2023-06-07 04:53] LABS: BASOPHILS % (AUTO) 0 % (0-10); EOSINOPHILS % (AUTO) 0 % (0-10); HEMATOCRIT 39 % (35-52); LYMPHOCYTES # (AUTO) 1.2 10^3/uL (1.0-4.0); LYMPHOCYTES % (AUTO) 12 % (12-44); MEAN CORPUSCULAR HEMOGLOBIN 30 pg (25-34); MEAN CORPUSCULAR HGB CONC 34 g/dL (32-36); MEAN CORPUSCULAR VOLUME 88 fL (80-99); MEAN PLATELET VOLUME 10.1 fL (9.0-12.2); MONOCYTES # (AUTO) 0.8 10^3/uL (0.0-1.0); MONOCYTES % (AUTO) 8 % (0-12); NEUTROPHILS # (AUTO) 8.1 10^3/uL (1.8-7.8); NEUTROPHILS % (AUTO) 79 % (42-75); PLATELET COUNT 200 10^3/uL (130-400); WHITE BLOOD COUNT 10.2 10^3/uL (4.3-11.0)
[2023-06-07 05:17] LABS: ALBUMIN 2.8 GM/DL (3.2-4.5); BILIRUBIN,TOTAL 0.8 MG/DL (0.1-1.0); CREATININE SERUM 0.78 MG/DL (0.60-1.30); MAGNESIUM 2.3 MG/DL (1.6-2.4); POTASSIUM 3.9 MMOL/L (3.6-5.0); TOTAL PROTEIN 5.6 GM/DL (6.4-8.2)
[2023-06-07] MEDS: inSUlin ASPART 1 UNIT/0.01 ML (PER UNIT) SC SCH ×4 (05:24→20:39)
[2023-06-07] MEDS: TROSPIUM 20 MG (SANCTURA) TAB PO SCH ×2 (05:30→16:37)
[2023-06-07 07:24] VITALS: BP 148/68
[2023-06-07] MEDS ORDERED: CEFEPIME INJECTION 1,000 MG in NS (IVPB) 50 ML 50 ML IV SCH (08:00)
[2023-06-07] MEDS: LinaGLIPtin 5 MG TABLET PO SCH (08:26)
[2023-06-07] MEDS: APIXABAN 5 MG TABLET PO SCH ×2 (08:26→20:46)
[2023-06-07] MEDS: CYANOCOBALAMIN 1,000 MCG TABLET PO SCH (08:26)
[2023-06-07] MEDS: PRAMIPEXOLE 0.5 MG TABLET PO SCH ×2 (08:26→20:46)
[2023-06-07] MEDS: SENNOSIDES 8.6 MG TABLET PO SCH ×2 (08:27→19:32)
[2023-06-07] MEDS: DOCUSATE SODIUM 100 MG CAPSULE PO SCH ×2 (08:27→19:31)
[2023-06-07] MEDS: inSUlin DETERMIR 1 UNIT/0.01 ML (CHARGE PER UNIT) SQ SCH ×2 (08:27→20:46)
[2023-06-07] MEDS: MICONAZOLE 2% POWDER 90 GM TOP SCH ×2 (08:28→20:47)
[2023-06-07] MEDS ORDERED: SOLIFENACIN SUCCINATE 5 MG PO SCH (09:00)
[2023-06-07] MEDS ORDERED: NON-FORMULARY MEDICATION 1 EA EA (Sitagliptin Phosphate (Januvia) 100 MG) PO SCH (09:00)
[2023-06-07 11:45] VITALS: BP 133/60
[2023-06-07] MEDS: cefTRIAXone INJECTION 2,000 MG in NS (IVPB) 50 ML 50 ML IV SCH (12:08)
--- NOTE | 2023-06-07 12:44 | Progress Note - Hospitalist ---
KRISTA SUGGS 06/07/23 1244: Subjective HPI/CC On Admission Date Seen by Provider: Jun 07, 2023 Time Seen by Provider: 09:00 MIRA, PNEUMONIA, SEPSIS, UTI Subjective/Events-last exam Micki was resting when I visited her this morning. She denied chest pain but endorsed some shortness of breath. She told me that she does use some supplemental oxygen at home and here when she feels like she needs it. But denied this to Dr. Herring. She was not using oxygen when I saw her. She has been at 90% O2 on room air over the last several days. Lungs had some coarse breath sounds in the LLL. She also showed shallow and more frequent breaths (R22). Her most recent CXR showed no pneumothorax and no significant pleural fluid. The UA culture came back and was positive for E.Coli. Blood cultures also came back and were positive for E.Coli. She denied dysuria, frequency, or urgency. No suprapubic pain. Will likely change antibiotic from cefepime to ceftriaxone. Review of Systems General: No Chills, No Night Sweats HEENT: No Head Aches, No Visual Changes Pulmonary: Dyspnea; No Cough Cardiovascular: No: Chest Pain, Palpitations, Edema Gastrointestinal: No: Nausea, Vomiting, Abdominal Pain Genitourinary: No Dysuria, No Frequency Musculoskeletal: No: neck pain, shoulder pain Neurological: No: Numbness, Incoordination Focused Exam Sepsis Stage: Severe Sepsis Possible Source: Genitouriary Lactate Level 06/05/23 19:05: Lactic Acid Level 2.15*H 06/05/23 22:03: Lactic Acid Level 1.14 Respiratory: Chest Non Tender; No Normal Breath Sounds (shallow breaths), No Accessory Muscle Use, No Stridor, No Wheezing Cardiovascular: Regular Rate, Rhythm, No Edema, No Murmur Skin: normal color, damp; No ulcerations Objective Exam Vital Signs Vital Signs Date Time Temp Pulse Resp B/P (MAP) Pulse Ox O2 Delivery O2 Flow Rate FiO2 06/07/23 11:45 36.7 75 20 133/60 (84) 90 Room Air 06/06/23 11:00 2.00 06/06/23 03:09 94 Capillary Refill : Less Than 3 Seconds General Appearance: WD/WN, Obese HEENT: TMs Normal; No Scleral Icterus (L), No Scleral Icterus (R) Neck: Non Tender, Supple Respiratory: Chest Non Tender; No Lungs Clear (Coarse lung sounds in LLL); Other (shallow breaths) Cardiovascular: Regular Rate, Rhythm, No Edema, No Murmur Gastrointestinal: Normal Bowel Sounds, Non Tender, Soft Rectal: Deferred Back: No Muscle Spasm, No Vertebral Tenderness Extremity: Normal Capillary Refill, Non Tender Neurologic/Psychiatric: Alert Skin: Normal Color, Damp; No Ecchymosis, No Erythema, No Jaundice Results/Procedures Lab Laboratory Tests 06/07/23 04:40 Patient resulted labs reviewed. Assessment/Plan Assessment and Plan Assess & Plan/Chief Complaint Assessment: 1.Severe Sepsis Change cefepime to IV ceftriaxone stop vancomycin 2. Bacteremia Ceftriaxone IV stop vancomycin 3. UTI Ceftriaxone IV stop vancomycin 4. LLL consolidation cefrtriaxone 5. DVT prophylaxis apixaban PT is encouraged 6. Mild Shortness of Breath - 2L O2 NC 7. Diabetes Mellitus insulin detemir, aspart Glipizide 8. Anxiety PCP, start home med when able 9. Depression PCP, start home med when able Time spent with patient (mins): 15 DANICA HERRING MD 06/07/23 1937: Subjective HPI/CC On Admission Time Seen by Provider: 10:30 Assessment/Plan Assessment and Plan Assess & Plan/Chief Complaint Urine culture and blood culture with E coli. Stop Vancomycin and Cefepime. Transition to Rocephin. Diagnosis/Problems Diagnosis/Problems (1) Severe sepsis Status: Acute (2) Urinary tract infection Status: Acute (3) Bacteremia due to Escherichia coli Status: Acute (4) Lactic acidosis Status: Acute (5) MIRA (acute kidney injury) Status: Acute Supervisory-Addendum Brief Verification & Attestation Participated in pt care: history, MDM, physical Personally performed: exam, history, MDM, supervision of care Care discussed with: Medical Student Procedures: n/a A medical student performed and documented this service in my presence. I reviewed and verified all information documented by the medical student and made modifications to such information, when appropriate. I personally performed the physical exam and medical decision making. KRISTA SUGGS Jun 07, 2023 12:44 DANICA HERRING MD Jun 07, 2023 19:37
[2023-06-07] MEDS ORDERED: TROUGH ORDER-PHARMACY XX NR (15:00)
[2023-06-07 15:17] VITALS: BP 151/69
[2023-06-07] MEDS: glipiZIDE 5 MG TABLET PO SCH (16:37)
[2023-06-07 19:14] VITALS: BP 109/69
[2023-06-07] MEDS: FERROUS SULFATE 325 MG (IRON) TABLET PO SCH (20:46)
[2023-06-07] MEDS: VITAMIN D3 25 MCG (1,000 UNITS) TABLET PO SCH (20:46)
[2023-06-08 00:06] VITALS: BP 136/67
[2023-06-08] MEDS: RT-Ipratropium/Albuterol NEB 3 ML VIAL INH SCH ×4 (03:33→21:09)
[2023-06-08 04:34] LABS: BASOPHILS % (AUTO) 0 % (0-10); EOSINOPHILS # (AUTO) 0.1 10^3/uL (0.0-0.3); EOSINOPHILS % (AUTO) 1 % (0-10); HEMATOCRIT 41 % (35-52); HEMOGLOBIN 13.7 g/dL (11.5-16.0); LYMPHOCYTES % (AUTO) 19 % (12-44); MEAN CORPUSCULAR HEMOGLOBIN 29 pg (25-34); MEAN CORPUSCULAR HGB CONC 34 g/dL (32-36); MEAN CORPUSCULAR VOLUME 87 fL (80-99); MEAN PLATELET VOLUME 9.8 fL (9.0-12.2); MONOCYTES # (AUTO) 0.6 10^3/uL (0.0-1.0); MONOCYTES % (AUTO) 6 % (0-12); NEUTROPHILS # (AUTO) 7.5 10^3/uL (1.8-7.8); NEUTROPHILS % (AUTO) 73 % (42-75); PLATELET COUNT 246 10^3/uL (130-400); WHITE BLOOD COUNT 10.2 10^3/uL (4.3-11.0)
[2023-06-08 04:54] LABS: BILIRUBIN,TOTAL 0.7 MG/DL (0.1-1.0); CALCIUM 8.6 MG/DL (8.5-10.1); CREATININE SERUM 0.77 MG/DL (0.60-1.30); MAGNESIUM 2.2 MG/DL (1.6-2.4); POTASSIUM 4.2 MMOL/L (3.6-5.0)
[2023-06-08] MEDS: TROSPIUM 20 MG (SANCTURA) TAB PO SCH ×2 (06:01→16:56)
[2023-06-08] MEDS: inSUlin ASPART 1 UNIT/0.01 ML (PER UNIT) SC SCH ×4 (06:01→20:27)
[2023-06-08 07:21] VITALS: BP 150/72
[2023-06-08] MEDS: PRAMIPEXOLE 0.5 MG TABLET PO SCH ×2 (08:37→20:50)
[2023-06-08] MEDS: LinaGLIPtin 5 MG TABLET PO SCH (08:37)
[2023-06-08] MEDS: CYANOCOBALAMIN 1,000 MCG TABLET PO SCH (08:38)
[2023-06-08] MEDS: APIXABAN 5 MG TABLET PO SCH ×2 (08:38→20:50)
[2023-06-08] MEDS: DOCUSATE SODIUM 100 MG CAPSULE PO SCH ×2 (08:38→21:32)
[2023-06-08] MEDS: MICONAZOLE 2% POWDER 90 GM TOP SCH ×2 (08:38→20:50)
[2023-06-08] MEDS: inSUlin DETERMIR 1 UNIT/0.01 ML (CHARGE PER UNIT) SQ SCH ×2 (08:38→20:28)
[2023-06-08] MEDS: SENNOSIDES 8.6 MG TABLET PO SCH ×2 (08:38→21:32)
[2023-06-08] MEDS: cefTRIAXone INJECTION 2,000 MG in NS (IVPB) 50 ML 50 ML IV SCH (11:08)
[2023-06-08 11:27] VITALS: BP 135/70
[2023-06-08 15:42] VITALS: BP 172/77
[2023-06-08] MEDS: glipiZIDE 5 MG TABLET PO SCH (16:56)
--- NOTE | 2023-06-08 16:58 | Progress Note - Hospitalist ---
Subjective HPI/CC On Admission Date Seen by Provider: Jun 08, 2023 Time Seen by Provider: 10:35 MIRA, PNEUMONIA, SEPSIS, UTI Subjective/Events-last exam She is feeling about the same. She is having some abdominal pain which she says is chronic. She denies diarrhea and constipation. She denies nausea and vomiting . She is not having fevers or chills. Focused Exam Lactate Level 06/05/23 19:05: Lactic Acid Level 2.15*H 06/05/23 22:03: Lactic Acid Level 1.14 Objective Exam Vital Signs Vital Signs Date Time Temp Pulse Resp B/P (MAP) Pulse Ox O2 Delivery O2 Flow Rate FiO2 06/08/23 15:42 36.1 69 17 172/77 (108) 95 Room Air 06/07/23 19:14 2.00 2.00 06/06/23 03:09 94 Capillary Refill : Less Than 3 Seconds General Appearance: No Apparent Distress, Obese Respiratory: Lungs Clear, No Respiratory Distress Cardiovascular: Regular Rate, Rhythm, No Murmur Gastrointestinal: Normal Bowel Sounds, Soft, Distended, Tenderness Extremity: Normal Inspection, No Pedal Edema Neurologic/Psychiatric: Alert, Normal Mood/Affect Skin: Normal Color, Warm/Dry Results/Procedures Lab Laboratory Tests 06/08/23 04:25 Patient resulted labs reviewed. Assessment/Plan Assessment and Plan Assess & Plan/Chief Complaint E coli UTI E coli bacteremia Possible pneumonia Rocephin Debility PT/OT T2DM Insulin regimen Anxiety and depression Continue home meds Elevated blood pressure readings Monitor, may need antihypertensives added Obesity Clinically significant, no acute management needs Severe sepsis, present on admission, resolved Lactic acidosis, present on admission, resolved MIRA, present on admission, resolved Diagnosis/Problems Diagnosis/Problems (1) Severe sepsis Status: Resolved Resolution Date/Time: 06/08/23 @ 16:58 (2) Urinary tract infection Status: Acute (3) Bacteremia due to Escherichia coli Status: Acute (4) Lactic acidosis Status: Resolved Resolution Date/Time: 06/08/23 @ 16:58 (5) MIRA (acute kidney injury) Status: Resolved Resolution Date/Time: 06/08/23 @ 16:58 (6) Type 2 diabetes mellitus Status: Chronic (7) Elevated blood pressure reading Status: Acute (8) Obesity Status: Chronic (9) Anxiety and depression Status: Chronic DANICA EHRRING MD Jun 08, 2023 16:58
[2023-06-08] MEDS: VITAMIN D3 25 MCG (1,000 UNITS) TABLET PO SCH (20:49)
[2023-06-08] MEDS: FERROUS SULFATE 325 MG (IRON) TABLET PO SCH (20:49)
[2023-06-09 00:12] VITALS: BP 149/78
[2023-06-09] MEDS: RT-Ipratropium/Albuterol NEB 3 ML VIAL INH SCH ×2 (03:06→07:34)
[2023-06-09 04:45] LABS: BASOPHILS % (AUTO) 0 % (0-10); EOSINOPHILS # (AUTO) 0.1 10^3/uL (0.0-0.3); EOSINOPHILS % (AUTO) 1 % (0-10); HEMATOCRIT 40 % (35-52); HEMOGLOBIN 13.4 g/dL (11.5-16.0); LYMPHOCYTES # (AUTO) 2.2 10^3/uL (1.0-4.0); LYMPHOCYTES % (AUTO) 22 % (12-44); MEAN CORPUSCULAR HEMOGLOBIN 29 pg (25-34); MEAN CORPUSCULAR HGB CONC 33 g/dL (32-36); MEAN CORPUSCULAR VOLUME 88 fL (80-99); MEAN PLATELET VOLUME 9.8 fL (9.0-12.2); MONOCYTES # (AUTO) 0.6 10^3/uL (0.0-1.0); MONOCYTES % (AUTO) 6 % (0-12); NEUTROPHILS # (AUTO) 7.2 10^3/uL (1.8-7.8); NEUTROPHILS % (AUTO) 70 % (42-75); PLATELET COUNT 250 10^3/uL (130-400); WHITE BLOOD COUNT 10.3 10^3/uL (4.3-11.0)
[2023-06-09 05:02] LABS: ALBUMIN 2.9 GM/DL (3.2-4.5); BILIRUBIN,TOTAL 0.6 MG/DL (0.1-1.0); CREATININE SERUM 0.78 MG/DL (0.60-1.30); MAGNESIUM 2.2 MG/DL (1.6-2.4); TOTAL PROTEIN 5.8 GM/DL (6.4-8.2)
[2023-06-09] MEDS: inSUlin ASPART 1 UNIT/0.01 ML (PER UNIT) SC SCH ×2 (05:17→11:09)
[2023-06-09] MEDS: TROSPIUM 20 MG (SANCTURA) TAB PO SCH (05:21)
[2023-06-09 07:09] VITALS: BP 149/70
[2023-06-09] MEDS: APIXABAN 5 MG TABLET PO SCH (08:22)
[2023-06-09] MEDS: LinaGLIPtin 5 MG TABLET PO SCH (08:22)
[2023-06-09] MEDS: DOCUSATE SODIUM 100 MG CAPSULE PO SCH (08:24)
[2023-06-09] MEDS: SENNOSIDES 8.6 MG TABLET PO SCH (08:24)
[2023-06-09] MEDS: inSUlin DETERMIR 1 UNIT/0.01 ML (CHARGE PER UNIT) SQ SCH (08:24)
[2023-06-09] MEDS: MICONAZOLE 2% POWDER 90 GM TOP SCH (08:25)
[2023-06-09] MEDS: PRAMIPEXOLE 0.5 MG TABLET PO SCH (08:28)
[2023-06-09] MEDS: CYANOCOBALAMIN 1,000 MCG TABLET PO SCH (08:28)
[2023-06-09] MEDS ORDERED: LACTULOSE SYRUP 10GM/15ML 30ML UDC PO ONE (09:30)
[2023-06-09] MEDS ORDERED: CEFD300C3 PO (09:41)
--- NOTE | 2023-06-09 09:42 | Discharge Summary ---
Diagnosis/Chief Complaint Date of Admission Jun 05, 2023 at 21:20 Date of Discharge Discharge Date: Jun 09, 2023 Discharge Diagnosis E coli UTI E coli bacteremia Possible pneumonia Rocephin Debility PT/OT T2DM Insulin regimen Anxiety and depression Continue home meds Elevated blood pressure readings Monitor, may need antihypertensives added Obesity Clinically significant, no acute management needs Reason Hospital Visit Chief complaint: Weakness due to pneumonia and UTI HPI: This is a 73-year-old female who presents to the ER with weakness and fever found to have pneumonia and UTI. Patient was placed on broad-spectrum antibi otics and placed in the ICU due to altered state. Currently she is doing much better. Discharge Summary Discharge Physical Examination Allergies: Coded Allergies: No Known Drug Allergies (Unverified , 02/11/14) Vitals & I&Os Vital Signs Date Time Temp Pulse Resp B/P (MAP) Pulse Ox O2 Delivery O2 Flow Rate FiO2 06/09/23 11:10 06/09/23 08:30 Room Air 06/09/23 07:36 96 06/09/23 07:09 36.0 68 18 06/07/23 19:14 2.00 2.00 06/06/23 03:09 94 General Appearance: Alert, Oriented X3, Cooperative Respiratory: Clear to Auscultation Cardiovascular: Regular Rate Psych/Mental Status: Mental Status NL Hospital Course Was the Problem List Reviewed?: Yes Micki is a 73 year old female who presented to the ER with complaint of generalized weakness, aches, and episodes of vomiting. Patient was found to have a fever upon presentation, and family reported that the patient had some confu yeimi recently. Her hospital stay was uncomplicated. She spent 2 days in the ER. Patient was diagnosed with sepsis secondary to urinary source as well as delirium secondary to sepsis. Rocephin was started in the ED, medication was changed to ceftriaxone. Patient has done well with the medication, reports feeling much better. Patient has noticed her symptoms improve. She has had diff use abdominal pain and been constipated, however, this is normal and she has not eaten much. Patient is eager to be discharged and be with family. SHREE MENDOZA Labs (last 24 hrs) Laboratory Tests 06/05/23 18:55: Influenza Type A (RT-PCR) Not Detected, Influenza Type B (RT-PCR) Not Detected, SARS-CoV-2 RNA (RT-PCR) Not Detected 06/05/23 19:05: White Blood Count 13.3H, Red Blood Count 5.29H, Hemoglobin 15.6, Hematocrit 46, Mean Corpuscular Volume 86, Mean Corpuscular Hemoglobin 29, Mean Corpuscular Hemoglobin Concent 34, Red Cell Distribution Width 13.2, Platelet Count 234, Mean Platelet Volume 10.3, Immature Granulocyte % (Auto) 1, Neutrophils (%) (Auto) 82H, Lymphocytes (%) (Auto) 8L, Monocytes (%) (Auto) 9, Eosinophils (%) (Auto) 0, Basophils (%) (Auto) 0, Neutrophils # (Auto) 10.9H, Lymphocytes # (Auto) 1.1, Monocytes # (Auto) 1.2H, Eosinophils # (Auto) 0.0, Basophils # (Auto) 0.0, Immature Granulocyte # (Auto) 0.1, Prothrombin Time 15.1H, INR Comment 1.2, Activated Partial Thromboplast Time 30, Sodium Level 127L, Potassium Level 4.5, Chloride Level 93L, Carbon Dioxide Level 18L, Anion Gap 16H , Blood Urea Nitrogen 25H, Creatinine 1.32H, Estimat Glomerular Filtration Rate 43, BUN/Creatinine Ratio 19, Glucose Level 503*H, Lactic Acid Level 2.15*H, Calcium Level 9.4, Corrected Calcium 9.6, Phosphorus Level 2.1L, Total Bilirubin 2.3H, Aspartate Amino Transf (AST/SGOT) 25, Alanine Aminotransferase (ALT/SGPT) 26, Alkaline Phosphatase 165H, Total Protein 7.6, Albumin 3.7, Beta-Hydroxybut yrate (Chem panel) 0.48H 06/05/23 19:20: Urine Color YELLOW, Urine Clarity CLOUDY, Urine pH 5.0, Urine Specific [place] 1.020, Urine Protein 2+H, Urine Glucose (UA) 2+H, Urine Ketones TRACEH, Urine Nitrite NEGATIVE, Urine Bilirubin NEGATIVE, Urine Urobilinogen 0.2, Urine Leukocyte Esterase 1+H, Urine RBC (Auto) 3+H, Urine RBC 25-50H, Urine WBC TNTCH, Urine Squamous Epithelial Cells 5-10, Urine Crystals NONE, Urine Bacteria LARGEH , Urine Casts PRESENT, Urine Hyaline Casts 5-10H, Urine Mucus NEGATIVE, Urine Culture Indicated CULTURE PENDING 06/05/23 20:00: Blood Gas Puncture Site RR, Blood Gas Patient Temperature 38, Arterial Blood pH 7.41, Arterial Blood Partial Pressure CO2 37, Arterial Blood Partial Pressure O2 81, Arterial Blood HCO3 23, Arterial Blood Total CO2 23.8, Arterial Blood Oxygen Saturation 96, Arterial Blood Base Excess -1.0, Betito Test YES-POS, Blood Gas Ventilator Setting NO, Blood Gas Inspired Oxygen 2L 06/05/23 21:20: Lab Scanned Report Referred Lab Report 06/05/23 22:03: Lactic Acid Level 1.14 06/05/23 22:36: Glucometer 506*H 06/06/23 00:27: Glucometer 427*H 06/06/23 01:39: Glucometer 384H 06/06/23 02:35: Glucometer 299H 06/06/23 03:56: Glucometer 231H 06/06/23 03:57: White Blood Count 13.1H, Red Blood Count 4.66, Hemoglobin 13.6, Hematocrit 40, Mean Corpuscular Volume 87, Mean Corpuscular Hemoglobin 29, Mean Corpuscular Hemoglobin Concent 34, Red Cell Distribution Width 13.4, Platelet Count 205, Mean Platelet Volume 10.1, Immature Granulocyte % (Auto) 1, Neutrophils (%) (Auto) 77H, Lymphocytes (%) (Auto) 13, Monocytes (%) (Auto) 8, Eosinophils (%) (Auto) 1, Basophils (%) (Auto) 0, Neutrophils # (Auto) 10.1H, Lymphocytes # (Auto) 1.6, Monocytes # (Auto) 1.0, Eosinophils # (Auto) 0.2, Basophils # (Auto) 0.0, Immature Granulocyte # (Auto) 0.1, Sodium Level 135, Potassium Level 3.8, Chloride Level 102, Carbon Dioxide Level 21, Anion Gap 12, Blood Urea Nitrogen 27H, Creatinine 1.12, Estimat Glomerular Filtration Rate 53, BUN/Creatinine Ratio 24, Glucose Level 235H, Calcium Level 8.1L, Corrected Calcium 8.9, Phosphorus Level 2.6, Magnesium Level 1.8, Total Bilirubin 1.2H, Aspartate Amino Transf (AST/SGOT) 28, Alanine Aminotransferase (ALT/SGPT) 25, Alkaline Phosphatase 132, Total Protein 6.4, Albumin 3.0L 06/06/23 04:40: Glucometer 202H 06/06/23 05:44: Glucometer 204H 06/06/23 06:38: Glucometer 193H 06/06/23 08:22: Glucometer 117H 06/06/23 09:58: Glucometer 151H 06/06/23 10:55: Glucometer 129H 06/06/23 11:50: Glucometer 108 06/06/23 16:06: Glucometer 255H 06/06/23 19:44: Glucometer 210H 06/07/23 04:40: White Blood Count 10.2, Red Blood Count 4.41, Hemoglobin 13.0, Hematocrit 39, Mean Corpuscular Volume 88, Mean Corpuscular Hemoglobin 30, Mean Corpuscular Hemoglobin Concent 34, Red Cell Distribution Width 13.4, Platelet Count 200, Mean Platelet Volume 10.1, Immature Granulocyte % (Auto) 1, Neutrophils (%) (Auto) 79H, Lymphocytes (%) (Auto) 12, Monocytes (%) (Auto) 8, Eosinophils (%) (Auto) 0, Basophils (%) (Auto) 0, Neutrophils # (Auto) 8.1H, Lymphocytes # (Auto) 1.2, Monocytes # (Auto) 0.8, Eosinophils # (Auto) 0.0, Basophils # (Auto) 0.0, Immature Granulocyte # (Auto) 0.1, Sodium Level 135, Potassium Level 3.9, Chloride Level 105, Carbon Dioxide Level 21, Anion Gap 9, Blood Urea Nitrogen 16, Creatinine 0.78, Estimat Glomerular Filtration Rate 81, BUN/Creatinine Ratio 21, Glucose Level 173H, Calcium Level 8.0L, Corrected Calcium 9.0, Magnesium Level 2.3, Total Bilirubin 0.8, Aspartate Amino Transf (AST/SGOT) 81H, Alanine Aminotransferase (ALT/SGPT) 62H, Alkaline Phosphatase 189H, Total Protein 5.6L, Albumin 2.8L 06/07/23 11:40: Glucometer 244H 06/07/23 15:22: Glucometer 170H 06/07/23 20:05: Glucometer 151H 06/08/23 04:25: White Blood Count 10.2, Red Blood Count 4.67, Hemoglobin 13.7, Hematocrit 41, Mean Corpuscular Volume 87, Mean Corpuscular Hemoglobin 29, Mean Corpuscular Hemoglobin Concent 34, Red Cell Distribution Width 13.4, Platelet Count 246, Mean Platelet Volume 9.8, Immature Granulocyte % (Auto) 1, Neutrophils (%) (Auto) 73, Lymphocytes (%) (Auto) 19, Monocytes (%) (Auto) 6, Eosinophils (%) (Auto) 1, Basophils (%) (Auto) 0, Neutrophils # (Auto) 7.5, Lymphocytes # (Auto) 2.0, Monocytes # (Auto) 0.6, Eosinophils # (Auto) 0.1, Basophils # (Auto) 0.0, Immature Granulocyte # (Auto) 0.1, Sodium Level 136, Potassium Level 4.2, Chloride Level 103, Carbon Dioxide Level 22, Anion Gap 11, Blood Urea Nitrogen 12, Creatinine 0.77, Estimat Glomerular Filtration Rate 82, BUN/Creatinine Ratio 16, Glucose Level 187H, Calcium Level 8.6, Corrected Calcium 9.4, Magnesium Level 2.2, Total Bilirubin 0.7, Aspartate Amino Transf (AST/SGOT) 66H, Alanine Aminotransferase (ALT/SGPT) 73H, Alkaline Phosphatase 240H, Total Protein 6.0L, Albumin 3.0L 06/08/23 11:24: Glucometer 189H 06/08/23 16:14: Glucometer 157H 06/08/23 20:27: Glucometer 157H 06/09/23 04:35: White Blood Count 10.3, Red Blood Count 4.57, Hemoglobin 13.4, Hematocrit 40, Mean Corpuscular Volume 88, Mean Corpuscular Hemoglobin 29, Mean Corpuscular Hemoglobin Concent 33, Red Cell Distribution Width 13.4, Platelet Count 250, Mean Platelet Volume 9.8, Immature Granulocyte % (Auto) 1, Neutrophils (%) (Auto) 70, Lymphocytes (%) (Auto) 22, Monocytes (%) (Auto) 6, Eosinophils (%) (Auto) 1, Basophils (%) (Auto) 0, Neutrophils # (Auto) 7.2, Lymphocytes # (Auto) 2.2, Monocytes # (Auto) 0.6, Eosinophils # (Auto) 0.1, Basophils # (Auto) 0.0, Immature Granulocyte # (Auto) 0.1, Sodium Level 138, Potassium Level 4.0, Chloride Level 103, Carbon Dioxide Level 26, Anion Gap 9, Blood Urea Nitrogen 11, Creatinine 0.78, Estimat Glomerular Filtration Rate 81, BUN/Creatinine Ratio 14, Glucose Level 160H, Calcium Level 9.0, Corrected Calcium 9.9, Magnesium Level 2.2, Total Bilirubin 0.6, Aspartate Amino Transf (AST/SGOT) 32, Alanine Aminotransferase (ALT/SGPT) 53, Alkaline Phosphatase 239H, Total Protein 5.8L, Albumin 2.9L 06/09/23 10:53: Glucometer 267H Microbiology 06/05/23 MRSA Screen - Final, Complete MRSA not isolated 06/05/23 Blood Culture - Final, Complete Escherichia coli 06/05/23 Urine Culture - Final, Complete Escherichia coli Pending Labs Microbiology Date/Time Source Procedure Growth Status 06/05/23 21:38 Nasal MRSA Screen - Final MRSA not isolated Complete 06/05/23 19:43 Peripheral Rt Ac Blood Culture - Final Escherichia coli Complete 06/05/23 19:20 Urine Clean Catch Urine Culture - Final Escherichia coli Complete 06/05/23 19:05 Peripheral Lt Ac Blood Culture - Preliminary Resulted Laboratory Tests 06/05/23 18:55: Influenza Type A (RT-PCR) Not Detected, Influenza Type B (RT-PCR) Not Detected, SARS-CoV-2 RNA (RT-PCR) Not Detected 06/05/23 19:05: White Blood Count 13.3, Red Blood Count 5.29, Hemoglobin 15.6, Hematocrit 46, Mean Corpuscular Volume 86, Mean Corpuscular Hemoglobin 29, Mean Corpuscular Hemoglobin Concent 34, Red Cell Distribution Width 13.2, Platelet Count 234, Mean Platelet Volume 10.3, Immature Granulocyte % (Auto) 1, Neutrophils (%) (Auto) 82, Lymphocytes (%) (Auto) 8, Monocytes (%) (Auto) 9, Eosinophils (%) (Auto) 0, Basophils (%) (Auto) 0, Neutrophils # (Auto) 10.9, Lymphocytes # (Auto) 1.1, Monocytes # (Auto) 1.2, Eosinophils # (Auto) 0.0, Basophils # (Auto) 0.0, Immature Granulocyte # (Auto) 0.1, Prothrombin Time 15.1, INR Comment 1.2, Activated Partial Thromboplast Time 30, Sodium Level 127, Potassium Level 4.5, Chloride Level 93, Carbon Dioxide Level 18, Anion Gap 16, Blood Urea Nitrogen 25, Creatinine 1.32, Estimat Glomerular Filtration Rate 43, BUN/Creatinine Ratio 19, Glucose Level 503, Lactic Acid Level 2.15, Calcium Level 9.4, Corrected Calcium 9.6, Phosphorus Level 2.1, Total Bilirubin 2.3, Aspartate Amino Transf (AST/SGOT) 25, Alanine Aminotransferase (ALT/SGPT) 26, Alkaline Phosphatase 165, Total Protein 7.6, Albumin 3.7, Beta-Hydroxybutyrate (Chem panel) 0.48 06/05/23 19:20: Urine Color YELLOW, Urine Clarity CLOUDY, Urine pH 5.0, Urine Specific [place] 1.020, Urine Protein 2+, Urine Glucose (UA) 2+, Urine Ketones TRACE, Urine Nitrite NEGATIVE, Urine Bilirubin NEGATIVE, Urine Urobilinogen 0.2, Urine Leukocyte Esterase 1+, Urine RBC (Auto) 3+, Urine RBC 25-50, Urine WBC TNTC, Urine Squamous Epithelial Cells 5-10, Urine Crystals NONE, Urine Bacteria LARGE, Urine Casts PRESENT, Urine Hyaline Casts 5-10, Urine Mucus NEGATIVE, Urine Culture Indicated CULTURE PENDING 06/05/23 20:00: Blood Gas Puncture Site RR, Blood Gas Patient Temperature 38, Arterial Blood pH 7.41, Arterial Blood Partial Pressure CO2 37, Arterial Blood Partial Pressure O2 81, Arterial Blood HCO3 23, Arterial Blood Total CO2 23.8, Arterial Blood Oxygen Saturation 96, Arterial Blood Base Excess -1.0, Betito Test YES-POS, Blood Gas Ventilator Setting NO, Blood Gas Inspired Oxygen 2L 06/05/23 21:20: Lab Scanned Report Referred Lab Report 06/05/23 22:03: Lactic Acid Level 1.14 06/05/23 22:36: Glucometer 506 06/06/23 00:27: Glucometer 427 06/06/23 01:39: Glucometer 384 06/06/23 02:35: Glucometer 299 06/06/23 03:56: Glucometer 231 06/06/23 03:57: White Blood Count 13.1, Red Blood Count 4.66, Hemoglobin 13.6, Hematocrit 40, Mean Corpuscular Volume 87, Mean Corpuscular Hemoglobin 29, Mean Corpuscular Hemoglobin Concent 34, Red Cell Distribution Width 13.4, Platelet Count 205, Mean Platelet Volume 10.1, Immature Granulocyte % (Auto) 1, Neutrophils (%) (Auto) 77, Lymphocytes (%) (Auto) 13, Monocytes (%) (Auto) 8, Eosinophils (%) (Auto) 1, Basophils (%) (Auto) 0, Neutrophils # (Auto) 10.1, Lymphocytes # (Auto) 1.6, Monocytes # (Auto) 1.0, Eosinophils # (Auto) 0.2, Basophils # (Auto) 0.0, Immature Granulocyte # (Auto) 0.1, Sodium Level 135, Potassium Level 3.8, Chloride Level 102, Carbon Dioxide Level 21, Anion Gap 12, Blood Urea Nitrogen 27, Creatinine 1.12, Estimat Glomerular Filtration Rate 53, BUN/Creatinine Ratio 24, Glucose Level 235, Calcium Level 8.1, Corrected Calcium 8.9, Phosphorus Level 2.6, Magnesium Level 1.8, Total Bilirubin 1.2, Aspartate Amino Transf (AST/SGOT) 28, Alanine Aminotransferase (ALT/SGPT) 25, Alkaline Phosphatase 132, Total Protein 6.4, Albumin 3.0 06/06/23 04:40: Glucometer 202 06/06/23 05:44: Glucometer 204 06/06/23 06:38: Glucometer 193 06/06/23 08:22: Glucometer 117 06/06/23 09:58: Glucometer 151 06/06/23 10:55: Glucometer 129 06/06/23 11:50: Glucometer 108 06/06/23 16:06: Glucometer 255 06/06/23 19:44: Glucometer 210 06/07/23 04:40: White Blood Count 10.2, Red Blood Count 4.41, Hemoglobin 13.0, Hematocrit 39, Mean Corpuscular Volume 88, Mean Corpuscular Hemoglobin 30, Mean Corpuscular Hemoglobin Concent 34, Red Cell Distribution Width 13.4, Platelet Count 200, Mean Platelet Volume 10.1, Immature Granulocyte % (Auto) 1, Neutrophils (%) (Auto) 79, Lymphocytes (%) (Auto) 12, Monocytes (%) (Auto) 8, Eosinophils (%) (Auto) 0, Basophils (%) (Auto) 0, Neutrophils # (Auto) 8.1, Lymphocytes # (Auto) 1.2, Monocytes # (Auto) 0.8, Eosinophils # (Auto) 0.0, Basophils # (Auto) 0.0, Immature Granulocyte # (Auto) 0.1, Sodium Level 135, Potassium Level 3.9, Chloride Level 105, Carbon Dioxide Level 21, Anion Gap 9, Blood Urea Nitrogen 16, Creatinine 0.78, Estimat Glomerular Filtration Rate 81, BUN/Creatinine Ratio 21, Glucose Level 173, Calcium Level 8.0, Corrected Calcium 9.0, Magnesium Level 2.3, Total Bilirubin 0.8, Aspartate Amino Transf (AST/SGOT) 81, Alanine Aminotransferase (ALT/SGPT) 62, Alkaline Phosphatase 189, Total Protein 5.6, Albumin 2.8 06/07/23 11:40: Glucometer 244 06/07/23 15:22: Glucometer 170 06/07/23 20:05: Glucometer 151 06/08/23 04:25: White Blood Count 10.2, Red Blood Count 4.67, Hemoglobin 13.7, Hematocrit 41, Mean Corpuscular Volume 87, Mean Corpuscular Hemoglobin 29, Mean Corpuscular Hemoglobin Concent 34, Red Cell Distribution Width 13.4, Platelet Count 246, Mean Platelet Volume 9.8, Immature Granulocyte % (Auto) 1, Neutrophils (%) (Auto) 73, Lymphocytes (%) (Auto) 19, Monocytes (%) (Auto) 6, Eosinophils (%) (Auto) 1, Basophils (%) (Auto) 0, Neutrophils # (Auto) 7.5, Lymphocytes # (Auto) 2.0, Monocytes # (Auto) 0.6, Eosinophils # (Auto) 0.1, Basophils # (Auto) 0.0, Immature Granulocyte # (Auto) 0.1, Sodium Level 136, Potassium Level 4.2, Chloride Level 103, Carbon Dioxide Level 22, Anion Gap 11, Blood Urea Nitrogen 12, Creatinine 0.77, Estimat Glomerular Filtration Rate 82, BUN/Creatinine Ratio 16, Glucose Level 187, Calcium Level 8.6, Corrected Calcium 9.4, Magnesium Level 2.2, Total Bilirubin 0.7, Aspartate Amino Transf (AST/SGOT) 66, Alanine Aminotransferase (ALT/SGPT) 73, Alkaline Phosphatase 240, Total Protein 6.0, Al bumin 3.0 06/08/23 11:24: Glucometer 189 06/08/23 16:14: Glucometer 157 06/08/23 20:27: Glucometer 157 06/09/23 04:35: White Blood Count 10.3, Red Blood Count 4.57, Hemoglobin 13.4, Hematocrit 40, Mean Corpuscular Volume 88, Mean Corpuscular Hemoglobin 29, Mean Corpuscular Hemoglobin Concent 33, Red Cell Distribution Width 13.4, Platelet Count 250, Mean Platelet Volume 9.8, Immature Granulocyte % (Auto) 1, Neutrophils (%) ( Auto) 70, Lymphocytes (%) (Auto) 22, Monocytes (%) (Auto) 6, Eosinophils (%) (Auto) 1, Basophils (%) (Auto) 0, Neutrophils # (Auto) 7.2, Lymphocytes # (Auto) 2.2, Monocytes # (Auto) 0.6, Eosinophils # (Auto) 0.1, Basophils # (Auto) 0.0, Immature Granulocyte # (Auto) 0.1, Sodium Level 138, Potassium Level 4.0, Chloride Level 103, Carbon Dioxide Level 26, Anion Gap 9, Blood Urea Nitrogen 11, Creatinine 0.78, Estimat Glomerular Filtration Rate 81, BUN/Creatinine Ratio 14, Glucose Level 160, Calcium Level 9.0, Corrected Calcium 9.9, Magnesium Level 2.2, Total Bilirubin 0.6, Aspartate Amino Transf (AST/SGOT) 32, Alanine Aminotransferase (ALT/SGPT) 53, Alkaline Phosphatase 239, Total Protein 5.8, Albumin 2.9 06/09/23 10:53: Glucometer 267 Discharge Home Medications: Active Scripts Active Cefdinir 300 Mg Capsule 300 Mg PO BID Reported Vesicare (Solifenacin Succinate) 5 Mg Tablet 5 Mg PO DAILY Celecoxib 200 Mg Capsule 200 Mg PO DAILY LAST FILLED 12-31-2022 #90/90 DAY SUPPLY Tresiba Flextouch U-100 (Insulin Degludec) 100 Unit/Ml (3 Ml) Insuln.pen 50 Unit SQ BID Glipizide 5 Mg Tablet 5 Mg PO HS Januvia (Sitagliptin Phosphate) 100 Mg Tablet 100 Mg PO DAILY LAST FILLED 12-31-2022 #90/90 DAY SUPPLY Vitamin B-12 (Cyanocobalamin (Vitamin B-12)) 1,000 Mcg Tablet 1,000 Mcg PO DAILY Vitamin D3 (Cholecalciferol (Vitamin D3)) 25 Mcg (1000 Unit) Tablet 25 Mcg PO HS Simvastatin 40 Mg Tablet 40 Mg PO HS Pramipexole Dihydrochloride (Pramipexole Di-HCl) 1 Mg Tablet 1 Mg PO BID Eliquis (Apixaban) 5 Mg Tablet 5 Mg PO BID LAST FILLED 01-18-2023 #180/90 DAY SUPPLY Iron (Ferrous Sulfate) 325 Mg (65 Mg Iron) Tablet 325 Mg PO HS Instructions to patient/family Please see electronic discharge instructions given to patient. EDDA YOU DO Jun 09, 2023 09:42
--- NOTE | 2023-06-09 09:49 | Physical Therapy Daily Note ---
PT Daily Note-Current Subjective Patient agrees to PT. Pain Section J - Health Conditions 1. Rarely or not at all 2. Occasionally 3. Frequently 4. Almost constantly 8. Unable to answer Pain Effect on Sleep: 1 Pain Interference with Therapy: 1 Pain Interference w/Day-to-Day: 1 Transfers SCALE: Activities may be completed with or without assistive devices. 9-Gbgvefkqfy-hmkcgto completes the activity by him/herself with no assistance from a helper. 5-Set-up or Clean-up Assistance-helper sets up or cleans up; patient completes activity. [place] assists only prior to or following the activity. 4-Supervision or Touching Assistance-helper provides verbal cues and/or touching/steadying and/or contact guard assistance as patient completes activity. Assistance may be provided throughout the activity or intermittently. 3-Partial/Moderate Assistance-helper does LESS THAN HALF the effort. [place] lifts, holds or supports trunk or limbs, but provides less than half the effort. 2-Substantial/Maximal Assistance-helper does MORE THAN HALF the effort. [place] lifts or holds trunk or limbs and provides more than half the effort. 2-Pwmyywxyg-qcxgae does ALL the effort. Patient does none of the effort to complete the activity. Or, the assistance of 2 or more helpers is required for the patient to complete the activity. If activity was not attempted, code reason: 7-Patient Refused. 9-Not Applicable-not attempted and the patient did not perform the activity before the current illness, exacerbation or injury. 10-Not Attempted due to Environmental Limitations-(lack of equipment, weather restraints, etc.). 88-Not Attempted due to Medical Conditions or Safety Concerns. Lying to Sitting/Side of Bed(Q: 6 Sit to Stand (QC): 6 Chair/Byw-nv-Bnknf Xfer(QC): 6 Gait Training Distance: 300' Walk 10 feet (QC): 6 Walk 50 ft with 2 Turns(QC): 6 Walk 150 ft (QC): 6 Gait Assistive Device: None safe and functional with no deviation Assessment Patient is at independent LOF without difficulty. PT to dismiss patient from services at this time. PT Short Term Goals Short Term Goals Time Frame: Jun 14, 2023 Roll Left & Right: 6 Sit to lyin Lying to sitting on side of be: 6 Sit to stand: 6 Chair/ygj-vk-wclhu transfer: 6 Toilet transfer: 6 Walk 10 feet: 6 Walk 50 feet with two turns: 6 Walk 150 feet: 6 PT Plan Treatment/Plan Treatment Plan: Discontinue PT Treatment Plan: Education, Functional Activity Rea, Functional Strength, Gait, Safety, Therapeutic Exercise Treatment Duration: Jun 14, 2023 Frequency: 5 times per week Estimated Hrs Per Day: .25 hour per day Patient and/or Family Agrees t: Yes Time Time In: 840 Time Out: 848 DATE: Jun 09, 2023 Total Billed Treatment Time: 8 Total Billed Treatment 1 visit FA 8 min BENJAMIN BARNARD PT Jun 09, 2023 09:49
--- NOTE | 2023-06-09 09:51 | Occupational Ther Daily Note ---
OT Current Status-Daily Note Subjective Alert in bed, agreeable to OT Pain Numeric Pain Scale: 0-No Pain Mental Status/Objective Patient Orientation: Person, Place, Time, Situation ADL-Treatment Changed from ticket puller t shirt to long house robe/gown. Dons own socks, no assisting devices Therapy Code Descriptions/Definitions Functional Miller Measure: 0=Not Assessed/NA 4=Minimal Assistance 1=Total Assistance 5=Supervision or Setup 2=Maximal Assistance 6=Modified Miller 3=Moderate Assistance 7=Complete IndependenceSCALE: Activities may be completed with or without assistive devices. 2-Sxbvdxluep-aeuwasj completes the activity by him/herself with no assistance from a helper. 5-Set-up or Clean-up Assistance-helper sets up or cleans up; patient completes activity. Stanley assists only prior to or following the activity. 4-Supervision or Touching Assistance-helper provides verbal cues and/or touching/steadying and/or contact guard assistance as patient completes activity. Assistance may be provided throughout the activity or intermittently. 3-Partial/Moderate Assistance-helper does LESS THAN HALF the effort. Stanley lifts, holds or supports trunk or limbs, but provides less than half the effort. 2-Substantial/Maximal Assistance-helper does MORE THAN HALF the effort. Stanley lifts or holds trunk or limbs and provides more than half the effort. 0-Iddrboqli-bsofsz does ALL the effort. Patient does none of the effort to complete the activity. Or, the assistance of 2 or more helpers is required for the patient to complete the activity. If activity was not attempted, code reason: 7-Patient Refused. 9-Not Applicable-not attempted and the patient did not perform the activity before the current illness, exacerbation or injury. 10-Not Attempted due to Environmental Limitations-(lack of equipment, weather restraints, etc.). 88-Not Attempted due to Medical Conditions or Safety Concerns. Eating (QC): 6 Oral Hygiene (QC): 6 (standing at sink, holds fixutures and objects declines F WW) Shower/Bathe Self (QC): 7 Upper Body Dressing (QC): 6 (Retrieved from bag) Lower Body Dressing (QC): 6 (Pull on brief) On/Off Footwear: 6 Toileting Hygiene (QC): 5 (slight odor noted) Toilet Transfer (QC): 6 Education OT Patient Education: Progress toward Goal/Update tx plan, Purpose of tx/functional activities, Reviewed precautions, Rehab process, Safety issues, Transfer techniques Teaching Recipient: Patient Teaching Methods: Demonstration, Discussion Response to Teaching: Verbalize Understanding OT Snf Goals Snf Goals Eating (QC): 6 Oral Hygiene (QC): 6 Toileting Hygiene (QC): 6 Shower/Bathe Self (QC): 6 Upper Body Dressing (QC): 6 Lower Body Dressing (QC): 6 On/Off Footwear (QC): 6 1=Demonstrate adherence to instructed precautions during ADL tasks. 2=Patient will verbalize/demonstrate understanding of assistive devices/modifications for ADL. 3=Patient will improve strength/tolerance for activity to enable patient to perform ADL's. OT Education/Plan Problem List/Assessment Assessment: Impaired Self-Care Skills Discharge Recommendations Plan/Recommendations: Discharge/Goals Met Treatment Plan/Plan of Care Patient would benefit from OT for education, treatment and training to promote independence in ADL's, mobility, safety and/or upper extremity function for ADL's. Plan of Care: ADL Retraining, Functional Mobility, Group Exercise/Act as Ind, UE Funct Exercise/Act Treatment Duration: Jun 09, 2023 Frequency: 3 times per week (3-5 times per week) Estimated Hrs Per Day: .25 hour per day Agreement: Yes Rehab Potential: Fair DC OT Time Start Time: 08:38 Stop Time: 08:48 DATE: Jun 09, 2023 Total Time Billed (hr/min): 10 Billed Treatment Time ADL 10 min SHILO ROLLINS OT Jun 09, 2023 09:51
[2023-06-09] MEDS: cefTRIAXone INJECTION 2,000 MG in NS (IVPB) 50 ML 50 ML IV SCH (10:11)
--- NOTE | 2023-06-09 10:22 | Progress Note ---
SHREE MENDOZA 06/09/23 1022: Progress Note Micki is a 73 year old female who presented to the ER with complaint of generalized weakness, aches, and episodes of vomiting. Patient was found to have a fever upon presentation, and family reported that the patient had some confusion recently. Her hospital stay was uncomplicated. She spent 2 days in the ER. Patient was diagnosed with sepsis secondary to urinary source as well as delirium secondary to sepsis. Rocephin was started in the ED, medication was changed to ceftriaxone. Patient has done well with the medication, reports feeling much better. Patient has noticed her symptoms improve. She has had diffuse abdominal pain and been constipated, however, this is normal and she has not eaten much. Patient is eager to be discharged and be with family. DOROTHY YOU DO 06/10/23 0429: Supervisory-Addendum Brief Verification & Attestation Participated in pt care: history, MDM, physical Personally performed: exam, history, MDM, supervision of care Care discussed with: Medical Student Procedures: n/a Results interpretation: Verified all documentation Verification and Attestation of Medical Student E/M Service A medical student performed and documented this service in my presence. I reviewed and verified all information documented by the medical student and made modifications to such information, when appropriate. I personally performed the physical exam and medical decision making. Dorothy You, Jun 10, 2023,04:29 SHREE MENDOZA Jun 09, 2023 10:22 DOROHTY YOU DO Jun 10, 2023 04:29
--- NOTE | 2023-06-09 19:15 | Physician Query-Final Dx ---
THERESA GONZALEZ 06/09/231914: Final Diagnosis Give Final Diagnosis Please give Final Diagnosis The medical record reflects the following clinical evidence: Clinical Indicators: Documentation of AMS on admission GCS 14 per nursing did improve to 15 after treatment, admission BS 506 Risk Factor(s): Admitted with PNA/Sepsis hyperglycemia with possible DKA, Treatment: Neuro monitoring, Lab monitoring, IV Fluids, IV ABX, Metabolic encephalopathy, present on admission, resolved Other explanation of clinical findings Unable to determine (no explanation for clinical findings) Please clarify and document your clinical opinion in the progress notes and discharge summary including the definitive and/or presumptive diagnosis, (suspected or probable), related to the above clinical findings. Please include clinical findings supporting your diagnosis. Theresa Gonzalez, MSN, RN [employer] [phone] [email or web address] DEDA YOU DO 06/09/232101: Final Diagnosis Give Final Diagnosis Metabolic encephalopathy, present on admission, resolved THERESA GONZALEZ Jun 09, 2023 19:15 EDDA YOU DO Jun 09, 2023 21:02
[2023-06-09] MEDS ORDERED: LACTULOSE SYRUP 10GM/15ML 30ML UDC PO SCH (21:00)
== END 2023-06-09 11:15 | disposition home or self-care (01) | DRG 871 ==
LOC: EDUNIT# 18:29 → ER 18:31 → ICU 21:20 → 4TH 06-06 13:33
PROVIDERS: ADMIT Internal Medicine; ATTEND Internal Medicine
DX: A41.51 Sepsis due to Escherichia coli [E. coli] (principal); G93.41 Metabolic encephalopathy; J18.9 Pneumonia, unspecified organism; N17.9 Acute kidney failure, unspecified; N39.0 Urinary tract infection, site not specified; E87.20 Acidosis, unspecified; R65.20 Severe sepsis without septic shock; E11.65 Type 2 diabetes mellitus with hyperglycemia; Z79.4 Long term (current) use of insulin; Z79.899 Other long term (current) drug therapy; G25.81 Restless legs syndrome; J45.909 Unspecified asthma, uncomplicated; I10 Essential (primary) hypertension; Z96.651 Presence of right artificial knee joint; Z86.711 Personal history of pulmonary embolism; E78.00 Pure hypercholesterolemia, unspecified; M19.90 Unspecified osteoarthritis, unspecified site; G89.29 Other chronic pain; M54.9 Dorsalgia, unspecified; F41.9 Anxiety disorder, unspecified; F32.A Depression, unspecified; E66.9 Obesity, unspecified; R53.81 Other malaise; Z68.39 Body mass index [BMI] 39.0-39.9, adult
CPT/HCPCS: 36415; 36600; 71045; 80053; 81000; 82010; 82805; 82947; 83605; 83735; 84100; 85025; 85610; 85730; 87040; 87077; 87081; 87088; 87186; 87636; 94640; 94664; 94760